=== PATIENT | male | born 1980 | race American Indian/Alaskan Native ===

== ENCOUNTER 2020-10-08 11:17 | Emergency (ER) | payer OTHER, SELFPAY ==
--- NOTE | ~2020-10-08 | XR_ITS ---
EXAMINATION: XR SHOULDER, LEFT CLINICAL INFORMATION: History of dislocation. Awoke with pain and limited mobility. COMPARISON: None TECHNIQUE: AP external rotation, Grashey, scapular Y, and axillary views of the left shoulder. FINDINGS: There is mild loss of glenohumeral joint space with periarticular spurring. The AC joint is intact. There is no visible acute fracture, dislocation or lytic process seen. The soft tissues are normal. 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 No visible acute fracture or dislocation seen.
[2020-10-08 11:26] VITALS: BP 112/59; PULSE 88; RESP 20; TEMP 36.1; O2SAT 96; BMI 49.6
--- NOTE | 2020-10-08 11:32 | ED.EXTPRO ---
HPI - Extremity Problem General Chief complaint: Extremity Injury, Upper Stated complaint: dislocated shoulder Time Seen by Provider: 10/08/20 11:32 Source: patient Mode of arrival: ambulatory Limitations: no limitations History of Present Illness HPI Narrative: 39 yo male woke up with L shoulder pain no known injuries states he cannot lift arm, hx of dislocations in the past, felt a pop when moving MD Complaint: extremity pain Onset (ago): hour(s) Pain Consistency: constant Location: left and upper extremity Quality: stabbing and aching Radiation: none Relieving factors: nothing Exacerbating factors: range of motion and palpation Associated symptoms: denies other symptoms Context: recent travel Related Data Previous Rx's Medication Instructions Recorded cyclobenzaprine 10 mg PO TID PRN #14 tab 10/08/20 ibuprofen 600 mg PO Q6H PRN #30 tab 10/08/20 lidocaine 1 patch TOPICAL DAILY PRN #10 ea 10/08/20 Allergies Allergy/AdvReac Type Severity Reaction Status Date / Time SEAFOOD Allergy Unknown SWELLING Verified 10/08/20 11:25 Review of Systems Review of Systems: Constitutional : No Fever, No Chills ENT/Mouth : No Ear Pain, No Hoarseness, No sore throat Eyes: No Eye Pain, No Swelling, No Redness, No Foreign Body Cardiovascular : No Chest Pain, No SOB Respiratory : No Cough, No Dyspnea Gastrointestinal : No Nausea, No Vomiting, No Diarrhea, No abdominal Pain Genitourinary : No Dysuria, No Hematuria Musculoskeletal : positive joint pain, No Myalgias, No Joint Swelling Skin : No Skin lacerations, No rash Neuro : No Weakness, No Numbness, No Loss of Consciousness, No Dizziness, No Headache Psych : No Anxiety/Panic, No Depression [facility] Past Medical History Attestation statement: The following information was validated with the patient. Medical History Diabetes Obesity Shoulder dislocation Social History Social History (Updated 10/08/20 @ 11:33 by Krysta Pinto DO) Alcohol intake: never Smoking Status: Never smoker Advance Directives: No Advance Directives Information Provided: No Physical Exam Vital Signs: Vital Signs: Last Vital Signs Temp 97.0 F 10/08/20 11:26 Pulse 88 10/08/20 11:26 Resp 20 05/13/21 11:26 BP 112/59 L 05/13/21 11:26 Pulse Ox 96 10/08/20 11:26 Body Mass Index 49.6 Appearance: Alert. Oriented X3. No acute distress. Eyes: Pupils equal, round and reactive to light. ENT: Pharynx normal. Neck: Normal inspection. Neck supple. CVS: Normal heart rate and rhythm. Pulses normal. Respiratory: No respiratory distress. Breath sounds normal. Abdomen: Soft and nontender. Skin: Skin warm and dry. Normal skin color. Normal skin turgor. Extremities: No lower extremity edema. No calf ttp LUE ttp at shoulder no obvious deformity, distal NV intact, will not range arm Neuro: Oriented X 3. No motor deficit. No sensory deficit. Procedures Orthopedic Splinting/Casting Injury #1: Side: left Upper Extremity Injury Location: shoulder Upper Extremity Immobilizer: sling/shoulder immobilizer MDM - Extremity (Nontraumatic) MDM Narrative Medical decision making narrative: 39 yo male L shoulder pain upon waking, felt a pop hx of dislocations in the past but clinically I do not suspect dislocation or fracture maybe just impingement or arthritis - xray ordered for r/o dislocation, NV intact at this time Discharge Plan Discharge Clinical Impression: Arthralgia Qualifiers: Joint pain location: shoulder Laterality: left Qualified Code(s): M25.512 - Pain in left shoulder Patient Disposition: Home, Self-Care Instructions: Arthralgia (ED) Additional Instructions: return to ED for any worsening symptoms or concerns IMPRESSION: 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 No visible acute fracture or dislocation seen. Prescriptions: New cyclobenzaprine 10 mg tablet 10 mg PO TID PRN (Reason: muscle spasm) Qty: 14 RF: 0 lidocaine 4 % adhesive patch,medicated 1 patch topical DAILY PRN (Reason: pain) Qty: 10 RF: 0 ibuprofen 600 mg tablet 600 mg PO Q6H PRN (Reason: pain) Qty: 30 RF: 0 Stand Alone Forms: Work/School Release Print Language: Japanese
--- NOTE | 2020-10-08 12:15 | PC.NURSE ---
Sling applied to left arm for support.
== END 2020-10-08 12:15 | disposition home or self-care (01) ==
PROVIDERS: Emergency Provider Emergency Medicine; PCP Internal Medicine
DX: M25.512 Pain in left shoulder (principal); E11.9 Type 2 diabetes mellitus without complications
CPT/HCPCS: 73030; 96372; 99283; 99284

== ENCOUNTER 2021-01-20 11:02 | Emergency (ER) | payer OTHER, SELFPAY ==
--- NOTE | 2021-01-20 | ECG_ITS ---
Test Reason : CHEST PAIN Blood Pressure : / mmHG Vent. Rate : 070 BPM Atrial Rate : 070 BPM P-R Int : 170 ms QRS Dur : 084 ms QT Int : 384 ms P-R-T Axes : 070 044 027 degrees QTc Int : 414 ms Normal sinus rhythm Normal ECG When compared with ECG of 22-SEP-2017 06:48, No significant change was found Referred By: Generic ED Physician Electronically Signed By:JER SHARMA
--- NOTE | ~2021-01-20 | US_ITS ---
EXAMINATION: US ABDOMEN LIMITED CLINICAL INFORMATION: Upper abdominal pain. Rule out gallbladder problem.. COMPARISON: None TECHNIQUE: Real-time imaging of the right upper quadrant abdominal viscera. FINDINGS: The gallbladder appears mildly distended with with the wall measuring 0.2 cm. No echogenic stones, polyp or echogenic bile seen. CBD measures 0.7 cm. US/US abdomen limited IMPRESSION: Unremarkable gallbladder ultrasound.
--- NOTE | ~2021-01-20 | CT_ITS ---
EXAMINATION: CT ABDOMEN AND PELVIS WITHOUT CONTRAST CLINICAL INFORMATION: Abdominal pain. Rule out appendicitis. COMPARISON: Previous CT of the abdomen and pelvis most recent August 2017 and abdominal ultrasound March 2019 TECHNIQUE: Multidetector volumetric imaging was performed from the superior aspect of the liver through the pubic symphysis. Sagittal and coronal reformatted images were obtained on the technologist's workstation. This CT examination was performed using dose optimization techniques as appropriate, variously including the following: *Automated exposure control *Adjustment of mA and/or kV according to patient size (this includes techniques or standardized protocols for targeted exams where dose is matched to indication/reason for exam; i.e. extremities or head) *Use of iterative reconstruction technique DLP: 1636 mGy-cm FINDINGS: LUNG BASES: The visualized lung bases are unremarkable. LIVER, GALLBLADDER, AND BILIARY TREE: The liver is normal in size, shape, and attenuation. No focal hepatic lesion or biliary ductal dilatation is present. The gallbladder is slightly enlarged measuring 5 x 5 x 11 cm. No gallstones are seen. No gallbladder wall thickening or pericholecystic fluid is seen. PANCREAS: Unremarkable. SPLEEN: Unremarkable. ADRENAL GLANDS: Unremarkable. KIDNEYS AND URETERS: The kidneys are normal in size, shape, and attenuation. No hydronephrosis, hydroureter, or calculi seen. No perinephric stranding. BLADDER: Unremarkable. GASTROINTESTINAL TRACT: The small and large bowel are unremarkable. The appendix is not identified. There are no inflammatory changes seen in the right lower quadrant. ABDOMINAL WALL: There is a small umbilical hernia containing fat. There is a small right inguinal hernia containing fat. LYMPH NODES: There is shotty retroperitoneal and small bowel mesentery lymphadenopathy. There is shotty bilateral inguinal lymphadenopathy. No enlarged lymph nodes are seen. VASCULAR: Unremarkable. PELVIC VISCERA: Unremarkable. OSSEOUS STRUCTURES: Unremarkable. CT/CT abdomen pelvis wo con IMPRESSION: Slightly enlarged gallbladder. No gallstones seen. Appendix is not identified. No inflammatory changes seen in the right lower quadrant. Small right inguinal hernia and small right umbilical hernia containing fat.
[2021-01-20 11:23] VITALS: BP 128/69; PULSE 73; RESP 19; TEMP 36.7; O2SAT 97; BMI 57.2
--- NOTE | 2021-01-20 12:19 | ED.GENADULT ---
HPI - General Adult General Chief complaint: General Medical Stated complaint: vomiting, weakness Time Seen by Provider: 01/20/21 12:18 Source: patient Mode of arrival: ambulatory Limitations: no limitations History of Present Illness HPI narrative: 40-year-old male came in for evaluation of abdominal pain that started 2 days ago been having nausea and vomiting with this. Described the pain as dull aching pain in the mid abdomen with no radiation, pain is associated with nausea and vomiting. Pain is constant and since this morning, nothing make better or worse. Never had similar pain in the past. Related Data Previous Rx's Medication Instructions Recorded cyclobenzaprine 10 mg tablet 10 mg PO TID PRN #14 tab 10/08/20 ibuprofen 600 mg tablet 600 mg PO Q6H PRN #30 tab 10/08/20 lidocaine 4 % topical patch 1 patch TOPICAL DAILY PRN #10 ea 10/08/20 Allergies Allergy/AdvReac Type Severity Reaction Status Date / Time SEAFOOD Allergy Unknown SWELLING Verified 10/08/20 11:25 Review of Systems Review of Systems: All other systems are reviewed and are negative Constitutional: Reports as per HPI and Reports no additional constitutional complaints Eyes: Reports as per HPI and Reports no additional eye complaints Reports system reviewed and no additional complaints, except as documented Cardiovascular: Reports as per HPI and Reports no additional cardiovascular complaints Respiratory: Reports as per HPI and Reports no additional respiratory complaints Gastrointestinal: Reports as per HPI and Reports no additional gastrointestinal complaints Genitourinary: Reports no additional female genitourinary complaints Musculoskeletal: Reports no additional musculoskeletal complaints Skin/Breast: Reports system reviewed and no additional complaints, except as docu Psychiatric: Reports no additional psychiatric complaints Endocrine: Reports no additional endocrine complaints Hematologic/Lymphatic: Reports no additional hematologic/lymphatic complaints Allergic/Immunologic: Reports no additional allergic/immunologic complaints Reports system reviewed and no additional complaints, except as documented and Reports Abnormal speech present [facility] Past Medical History Medical History Diabetes Obesity Shoulder dislocation Social History Social History Alcohol intake: never Patient Tobacco Use Status: Never used Tobacco Use of substances other than those prescribed or required for medical reasons: No Advance Directives: No Advance Directives Information Provided: No Physical Exam Vital Signs: Vital Signs: Last Vital Signs Temp 98.1 F 01/20/21 14:26 Pulse 84 01/20/21 14:26 Resp 15 01/20/21 14:26 BP 125/65 01/20/21 14:26 Pulse Ox 98 01/20/21 14:26 Body Mass Index 57.2 Vital signs have been reviewed as appeared to be correct. Blood pressure normal. Heart rate normal. Respiration rate normal. Temperature normal. Oxygen saturation normal. Appearance: Alert. Oriented X3. No acute distress. Head: Normal external exam. Normocephalic. Atraumatic. No Snyder signs noted. No raccoon eyes noted Eyes: PERRLA. EOMI. Conjunctiva and sclera normal. Eyelids normal. ENT: TM's Normal. Pharynx normal. Uvula midline. Moist mucous membranes. No trismus noted. No drooling noted. No muffled voice noted. Neck: Normal inspection. Neck supple. FROM. No adenopathy. Thyroid Normal. No meningeal signs. No neck mass noted. CVS: Normal heart rate and rhythm. Heart sound normal. No murmurs noted. Pulses normal throughout. Respiratory: No respiratory distress. Painless inspiration. Breath sounds normal. No wheezes/rales/rhonchi noted. Chest nontender. No accessory muscle usage noted or decreased air movement noted. Abdomen: Soft, mild tenderness in the mid abdomen, no rebound, no guarding. Bowel sounds normal in all 4 quadrants. No distention noted. No organomegaly noted. No visible injury noted. Back: No CVA tenderness. Full range of motion noted. Skin: Skin warm and dry. Normal skin color. Normal skin turgor. No rashes/lesions/lacerations noted. Extremities: No lower extremity edema. Extremities exhibit normal range of motion. Extremities nontender. Neuro: Oriented X 3. Cranial nerve exam: II-XII are grossly intact No motor deficit. No sensory deficit. Reflexes normal. Course Course Course Narrative: Assessment and plan. 40-year-old male came in for evaluation of abdominal pain, CT/abdominal ultrasound unremarkable labs (except for mild leukocytosis) are unremarkable and consistent with mild gastritis/pancreatitis. patient feels better and able to tolerate p.o. intake. Medical Decision Making Lab Data Lab results reviewed: Yes I reviewed the patient's lab results. Result diagrams: 01/20/21 Unknown 01/20/21 15:17 Labs: Lab Results 01/20/21 01/20/21 01/20/21 Range/Units 12:03 13:00 15:17 WBC (4.8-10.8) X10*3/uL RBC (4.60-5.80) X10*6/uL Hgb (14.0-18.0) g/dl Hct (42-52) % MCV (80-98) fL MCH (27.0-33.0) pg MCHC (31.0-36.0) g/dl RDW (11.0-16.0) % Plt Count (160-400) X10*3/uL MPV (9.4-12.4) fL Immature Gran % (Auto) (0.0-0.4) % Neut % (Auto) (45-73) % Lymph % (Auto) (20-40) % Carolina % (Auto) (2-11) % Eos % (Auto) (0-4) % Baso % (Auto) (0-2) % Lymph # (Auto) (1.2-4.9) X10*3/uL Carolina # (Auto) (0.1-1.2) X10*3/uL Eos # (Auto) (0.0-0.4) X10*3/uL Baso # (Auto) (0.0-0.2) X10*3/uL Abs Immat Gran (auto) (0.00-0.03) X10*3/uL Absolute Neuts (auto) (2.0-8.3) X10*3/uL Absolute Nucleated RBC (0.0-0.012) X10*3/uL Nucleated RBC % (auto) (0.0-0.2) /100WBC Smear Tech's Comments Sodium 138 (135-145) mmol/L Potassium 4.0 (3.3-5.1) mmol/L Chloride 101 (96-108) mmol/L Carbon Dioxide 32 H (22-29) mmol/L Anion Gap 9 L (12-20) BUN 14 (9-16) mg/dL Creatinine 0.84 (0.5-1.4) mg/dL Estim Creat Clear Calc 171.4 Estimated GFR > 60 Random Glucose 111 (60-115) mg/dL Calcium 9.1 (8.4-10.2) mg/dL Total Bilirubin 1.2 H (0.0-1.0) mg/dL Direct Bilirubin 0.4 (0.0-0.5) mg/dL AST 24 (5-37) U/L ALT 25 (0-40) U/L Alkaline Phosphatase 71 (39-117) U/L Troponin I High Sens 3.5 (<3.5-35.0) ng/L Total Protein 7.4 (6.5-8.0) g/dL Albumin 3.8 (3.5-5.0) g/dL Lipase 85 H (8-78) U/L RPR Cancelled T.pallidum Particle Agg Cancelled 01/20/21 Range/Units Unknown WBC 12.6 H (4.8-10.8) X10*3/uL RBC 4.85 (4.60-5.80) X10*6/uL Hgb 13.1 L (14.0-18.0) g/dl Hct 40.9 L (42-52) % MCV 84.3 (80-98) fL MCH 27.0 (27.0-33.0) pg MCHC 32.0 (31.0-36.0) g/dl RDW 13.5 (11.0-16.0) % Plt Count 137 L (160-400) X10*3/uL MPV 12.5 H (9.4-12.4) fL Immature Gran % (Auto) 0.4 (0.0-0.4) % Neut % (Auto) 81.2 H (45-73) % Lymph % (Auto) 12.8 L (20-40) % Carolina % (Auto) 4.8 (2-11) % Eos % (Auto) 0.6 (0-4) % Baso % (Auto) 0.2 (0-2) % Lymph # (Auto) 1.6 (1.2-4.9) X10*3/uL Carolina # (Auto) 0.6 (0.1-1.2) X10*3/uL Eos # (Auto) 0.1 (0.0-0.4) X10*3/uL Baso # (Auto) 0.0 (0.0-0.2) X10*3/uL Abs Immat Gran (auto) 0.05 H (0.00-0.03) X10*3/uL Absolute Neuts (auto) 10.2 H (2.0-8.3) X10*3/uL Absolute Nucleated RBC 0.000 (0.0-0.012) X10*3/uL Nucleated RBC % (auto) 0.0 (0.0-0.2) /100WBC Smear Tech's Comments VERIFIED Sodium (135-145) mmol/L Potassium (3.3-5.1) mmol/L Chloride (96-108) mmol/L Carbon Dioxide (22-29) mmol/L Anion Gap (12-20) BUN (9-16) mg/dL Creatinine (0.5-1.4) mg/dL Estim Creat Clear Calc Estimated GFR Random Glucose (60-115) mg/dL Calcium (8.4-10.2) mg/dL Total Bilirubin (0.0-1.0) mg/dL Direct Bilirubin (0.0-0.5) mg/dL AST (5-37) U/L ALT (0-40) U/L Alkaline Phosphatase (39-117) U/L Troponin I High Sens (<3.5-35.0) ng/L Total Protein (6.5-8.0) g/dL Albumin (3.5-5.0) g/dL Lipase (8-78) U/L RPR T.pallidum Particle Agg Imaging Data CT scan - abdomen: Radiologist's impression: Slightly enlarged gallbladder. No gallstones seen. Appendix is not identified. No inflammatory changes seen in the right lower quadrant. Small right inguinal hernia and small right umbilical hernia containing fat. US - abdomen: Radiologist's impression: Unremarkable gallbladder ultrasound. ECG Data Interpretation: Normal sinus rhythm at 70 beats per minutes, normal axis deviation, normal intervals, no ST-T changes. Discharge Plan Discharge Clinical Impression: Gastritis Qualifiers: Gastritis type: unspecified gastritis Chronicity: acute Gastritis bleeding: without bleeding Qualified Code(s): K29.00 - Acute gastritis without bleeding Acute pancreatitis Qualifiers: Pancreatitis type: idiopathic Acute pancreatitis complication: no infection or necrosis Qualified Code(s): K85.00 - Idiopathic acute pancreatitis without necrosis or infection Patient Disposition: Home, Self-Care Instructions: Pancreatitis (ED), Gastritis (ED) Prescriptions: No Action cyclobenzaprine 10 mg tablet 10 mg PO TID PRN (Reason: muscle spasm) Qty: 14 RF: 0 lidocaine 4 % adhesive patch,medicated 1 patch topical DAILY PRN (Reason: pain) Qty: 10 RF: 0 ibuprofen 600 mg tablet 600 mg PO Q6H PRN (Reason: pain) Qty: 30 RF: 0 Referrals: Jayleen Jose [Emergency Nurse] - 2 days Physician,Unknown [Primary Care Provider] - 2 days
[2021-01-20 13:13] LABS: Basophils Percent Auto 0.2 % (0-2); Eosinophils Absolute Auto 0.1 X10*3/uL (0.0-0.4); Eosinophils Percent Auto 0.6 % (0-4); Imm Gran Abs Auto 0.05 X10*3/uL (0.00-0.03); Imm Gran Pct Auto 0.4 % (0.0-0.4); MANUAL DIFF FLAG SCAN; Monocytes Percent Auto 4.8 % (2-11); PLT CLUMP 1; SCAN SMEAR FLAG 1
[2021-01-20 13:15] LABS: Hematocrit 40.9 % (42-52); Hemoglobin 13.1 g/dl (14.0-18.0); Lymphocytes Absolute Auto 1.6 X10*3/uL (1.2-4.9); Lymphocytes Percent Auto 12.8 % (20-40); Mean Corpuscular Volume 84.3 fL (80-98); Mean Platelet Volume 12.5 fL (9.4-12.4); Monocytes Absolute Auto 0.6 X10*3/uL (0.1-1.2); Neutrophils Absolute Auto 10.2 X10*3/uL (2.0-8.3); Neutrophils Percent Auto 81.2 % (45-73); Platelet Count 137 X10*3/uL (160-400); Red Blood Count 4.85 X10*6/uL (4.60-5.80); Red Cell Distribution Width 13.5 % (11.0-16.0); White Blood Count 12.6 X10*3/uL (4.8-10.8)
[2021-01-20 13:24] LABS: PLT ABN DIST 1
[2021-01-20 13:32] VITALS: BP 125/65; PULSE 78; RESP 12; TEMP 36.7; O2SAT 98
[2021-01-20] MEDS: ondansetron HCL 4 MG/2 ML VIAL IVPUSH (13:35)
[2021-01-20 13:37] LABS: SLIDE REVIEW VERIFIED
[2021-01-20 14:00] LABS: Troponin-I High Sensitivity 3.5 ng/L (<3.5-35.0)
[2021-01-20 14:26] VITALS: BP 125/65; PULSE 84; RESP 15; TEMP 36.7; O2SAT 98
[2021-01-20 15:50] LABS: Alanine Aminotransferase 25 U/L (0-40); Albumin Level 3.8 g/dL (3.5-5.0); Alkaline Phosphatase 71 U/L (39-117); Anion Gap 9 (12-20); Aspartate Amino Transferase 24 U/L (5-37); Bilirubin Direct 0.4 mg/dL (0.0-0.5); Bilirubin Total 1.2 mg/dL (0.0-1.0); Blood Urea Nitrogen 14 mg/dL (9-16); Calcium 9.1 mg/dL (8.4-10.2); Carbon Dioxide 32 mmol/L (22-29); Chloride 101 mmol/L (96-108); Creatinine Clr Calc Pharmacy 171.4; Estimated Glomerular Filt Rate > 60; Glucose Random 111 mg/dL (60-115); Lipase 85 U/L (8-78); Sodium 138 mmol/L (135-145); Total Protein 7.4 g/dL (6.5-8.0)
== END 2021-01-20 16:26 | disposition home or self-care (01) ==
PROVIDERS: Emergency Provider Emergency Medicine
DX: K29.00 Acute gastritis without bleeding (principal); K85.00 Idiopathic acute pancreatitis without necrosis or infection; Z79.899 Other long term (current) drug therapy
CPT/HCPCS: 36415; 74176; 76705; 80048; 80076; 83690; 84484; 85025; 93005; 96374; 99284; J2405

== ENCOUNTER 2021-01-23 12:19 | Emergency (ER) | payer OTHER, SELFPAY ==
[2021-01-23 12:47] VITALS: BP 141/71; PULSE 71; RESP 16; TEMP 37.3; O2SAT 100; BMI 57.2
--- NOTE | 2021-01-23 13:40 | ED_ITS ---
HPI - Abdominal Pain General Chief Complaint: Abdominal Pain Stated Complaint: abd pain Time Seen by Provider: 01/23/21 13:02 Source: patient Mode of arrival: ambulatory Limitations: no limitations History of Present Illness HPI narrative: 40-year-old male with a past medical history of IDDM, obesity here with complaints of upper abdominal pain, nausea since 01/20. Initially had vomiting on Monday (multiple episodes). Seen here in the ED with negative CT abdomen/pelvis, abdominal US and sent home with diagnosis of gastritis, mild pancreatitis (lipase 85). Patient reports continued pain with nausea. No gloria tional vomiting episodes. No diarrhea. Last BM this morning and normal. No fevers or chills or urinary symptoms. Pain is worsened after eating. Related Data Previous Rx's Medication Instructions Recorded cyclobenzaprine 10 mg tablet 10 mg PO TID PRN #14 tab 10/08/20 ibuprofen 600 mg tablet 600 mg PO Q6H PRN #30 tab 10/08/20 lidocaine 4 % topical patch 1 patch TOPICAL DAILY PRN #10 ea 10/08/20 omeprazole 40 mg capsule,delayed 40 mg PO DAILY #30 cap 01/23/21 release sucralfate 1 gram tablet (Carafate) 1 g PO .achs #60 tab 01/23/21 Allergies Allergy/AdvReac Type Severity Reaction Status Date / Time SEAFOOD Allergy Unknown SWELLING Verified 10/08/20 11:25 Review of Systems Review of Systems Yes all other systems are reviewed and are negative Constitutional: Reports no additional constitutional complaints, Denies body ache(s), Denies chills, Denies fever(s), Denies headache(s) and Denies weakness Eyes: Reports no additional eye complaints and Denies change in vision Reports system reviewed and no additional complaints, except as documented, Denies dizziness, Denies headache(s), Denies nasal congestion, Denies nasal discharge and Denies neck pain Cardiovascular: Reports no additional cardiovascular complaints, Denies chest pain, Denies leg edema and Denies dyspnea Respiratory: Reports no additional respiratory complaints, Denies cough and Denies dyspnea Gastrointestinal: Reports no additional gastrointestinal complaints, Reports abdominal pain, Denies diarrhea, Reports nausea and Denies vomiting Genitourinary: Denies urinary incontinence Musculoskeletal: Reports no additional musculoskeletal complaints, Denies back pain, Denies arthralgias, Denies joint swelling, Denies neck pain, Denies numbness and Denies tingling Skin/Breast: Reports system reviewed and no additional complaints, except as docu and Denies rash Reports system reviewed and no additional complaints, except as documented, Denies Abnormal speech present, Denies dizziness, Denies headache(s), Denies numbness, Denies tingling and Denies weakness Physical Exam Vital Signs: Vital Signs: Last Vital Signs Temp 99.2 F 01/23/21 12:47 Pulse 70 01/23/21 15:17 Resp 18 01/23/21 15:17 BP 130/67 01/23/21 15:17 Pulse Ox 99 01/23/21 15:17 Body Mass Index 57.2 Const: General: cooperative, healthy appearing, comfortable and no acute distress Orientation/consciousness: patient oriented x3 Limitations: no limitations HENMT: Head: Yes normal to inspection Ears: hearing grossly normal bilaterally General nose exam: Normal external nose present Face and sinus: Yes normal facial exam Mouth: Normal oral and palatal mucosa present Throat: Yes posterior oropharynx normal Eyes: General: appearance normal, both eyes and all related structures Pupils: Equal, round and reactive pupils present Neck: Neck: Yes normal visual inspection Chest: Chest palpation & inspection: normal inspection of the chest Resp: Effort & Inspection: normal respiratory effort Auscultation: clear to auscultation bilaterally Cardio: Rate: regular rate Rhythm: regular rhythm Peripheral pulses: Peripheral pulses 2+ throughout GI: Other: obese Inspection: Yes normal to inspection Palpation (GI): Soft to palpation and Tenderness to palpation present (GI) (tenderness RUQ/LUQ /epigastric-no rebound ) Auscultation: normal bowel sounds Back/Spine/Pelvis: Thoracic/Lumbar Spine: thoracic and lumbar spine normal to inspection Skin: General skin exam: no rashes or lesions noted Neuro: General: patient oriented x3, no focal motor deficits and normal sensation to monofilament Cranial nerves: Yes Equal, round and reactive pupils present Cognition (Neuro): normal cognition Speech: No Abnormal speech present Gait exam (Neuro): Normal gait present Motor exam (neuro): 5/5 motor strength present throughout Extrem: General: Yes normal to inspection Course Course Course Narrative: 40-year-old male here with continued upper abdominal pain with nausea for approximately 3-4 days with 1 ER visit with negative CT and abdominal ultrasound. On exam tender in the epigastric, left upper and right upper quadrants with no rebound or guarding. Will repeat labs, check UA. Give PPI, GI cocktail and normal saline bolus and reassess. 1500-labs are unremarkable. Lipase today is actually improved from yesterday. Patient tells me that after receiving his medications his pain is resolved. He denies any nausea or vomiting. He is tolerating p.o.. Likely gastritis. We discussed dietary changes. We also discussed following up with GI outpatient. Reviewed worrisome signs and symptoms of when to return to the emergency department. Comfortable discharge home. MDM - Abdominal Pain MDM Narrative Medical decision making narrative: Gastritis. Pancreatitis gallstones/renate Medical Records Attestation: I reviewed the patient's medical records. Lab Data Attestation: I reviewed the patient's lab results. Result diagrams: 01/23/21 13:51 01/23/21 13:51 Labs: Lab Results 01/23/21 01/23/21 Range/Units 13:51 13:51 WBC 8.3 (4.8-10.8) X10*3/uL RBC 4.66 (4.60-5.80) X10*6/uL Hgb 12.6 L (14.0-18.0) g/dl Hct 39.4 L (42-52) % MCV 84.5 (80-98) fL MCH 27.0 (27.0-33.0) pg MCHC 32.0 (31.0-36.0) g/dl RDW 13.2 (11.0-16.0) % Plt Count 148 L (160-400) X10*3/uL MPV 12.2 (9.4-12.4) fL Immature Gran % (Auto) 0.5 H (0.0-0.4) % Neut % (Auto) 62.7 (45-73) % Lymph % (Auto) 27.7 (20-40) % Dunn % (Auto) 5.3 (2-11) % Eos % (Auto) 3.4 (0-4) % Baso % (Auto) 0.4 (0-2) % Lymph # (Auto) 2.3 (1.2-4.9) X10*3/uL Dunn # (Auto) 0.4 (0.1-1.2) X10*3/uL Eos # (Auto) 0.3 (0.0-0.4) X10*3/uL Baso # (Auto) 0.0 (0.0-0.2) X10*3/uL Abs Immat Gran (auto) 0.04 H (0.00-0.03) X10*3/uL Absolute Neuts (auto) 5.2 (2.0-8.3) X10*3/uL Absolute Nucleated RBC 0.000 (0.0-0.012) X10*3/uL Nucleated RBC % (auto) 0.0 (0.0-0.2) /100WBC Sodium 139 (135-145) mmol/L Potassium 4.1 (3.3-5.1) mmol/L Chloride 102 (96-108) mmol/L Carbon Dioxide 30 H (22-29) mmol/L Anion Gap 11 L (12-20) BUN 13 (9-16) mg/dL Creatinine 0.82 (0.5-1.4) mg/dL Estim Creat Clear Calc 175.6 Estimated GFR > 60 Random Glucose 169 H D (60-115) mg/dL Calcium 9.2 (8.4-10.2) mg/dL Magnesium 1.9 (1.6-2.6) mg/dL Total Bilirubin 0.7 (0.0-1.0) mg/dL Direct Bilirubin 0.3 (0.0-0.5) mg/dL AST 22 (5-37) U/L ALT 23 (0-40) U/L Alkaline Phosphatase 67 (39-117) U/L Total Protein 7.2 (6.5-8.0) g/dL Albumin 3.7 (3.5-5.0) g/dL Lipase 58 (8-78) U/L Discharge Plan Discharge Clinical Impression: Gastritis Patient Disposition: Home, Self-Care Instructions: Gastritis (ED) Additional Instructions: Very bland diet Call GI Monday morning Prescriptions: New omeprazole 40 mg capsule,delayed release(DR/EC) 40 mg PO DAILY Qty: 30 RF: 0 sucralfate [Carafate] 1 gram tablet 1 g PO .achs Qty: 60 RF: 0 No Action cyclobenzaprine 10 mg tablet 10 mg PO TID PRN (Reason: muscle spasm) Qty: 14 RF: 0 lidocaine 4 % adhesive patch,medicated 1 patch topical DAILY PRN (Reason: pain) Qty: 10 RF: 0 ibuprofen 600 mg tablet 600 mg PO Q6H PRN (Reason: pain) Qty: 30 RF: 0 Referrals: Jerry Jeong MD [Physician] - 2 days Stand Alone Forms: Work/School Release Interventions: ED Discharge Assessment Last Done: 01/23/21 15:41 Discharge Date/Time: 01/23/21 15:42 [facility] Past Medical History Attestation statement: The following information was validated with the patient. Source: old records reviewed Medical History Diabetes Obesity Shoulder dislocation Social History Social History Alcohol intake: never Patient Tobacco Use Status: Never used Tobacco Use of substances other than those prescribed or required for medical reasons: No Advance Directives: No Advance Directives Information Provided: No
[2021-01-23 13:58] LABS: MANUAL DIFF FLAG NO
--- NOTE | 2021-01-23 14:00 | PC.NURSE ---
Pt alert and oriented x3, vss. Pt c/o upper abdominal pain and nausea since 01/20. He also reports having multiple episodes vomiting on Monday. Pt states he ate nachos last night which caused the abdominal pain to worsen. He denies fever/chills/ urinary symptoms. Pt states he experienced the same symptoms in the past but it resolved itself. No other symptoms reported. Pt resting quietly, no apparent distress noted. Iv established, fluids hung, meds given as documented.
[2021-01-23 14:03] LABS: Basophils Percent Auto 0.4 % (0-2); Eosinophils Absolute Auto 0.3 X10*3/uL (0.0-0.4); Eosinophils Percent Auto 3.4 % (0-4); Hematocrit 39.4 % (42-52); Hemoglobin 12.6 g/dl (14.0-18.0); Imm Gran Abs Auto 0.04 X10*3/uL (0.00-0.03); Imm Gran Pct Auto 0.5 % (0.0-0.4); Lymphocytes Absolute Auto 2.3 X10*3/uL (1.2-4.9); Lymphocytes Percent Auto 27.7 % (20-40); Mean Corpuscular Volume 84.5 fL (80-98); Mean Platelet Volume 12.2 fL (9.4-12.4); Monocytes Absolute Auto 0.4 X10*3/uL (0.1-1.2); Monocytes Percent Auto 5.3 % (2-11); Neutrophils Absolute Auto 5.2 X10*3/uL (2.0-8.3); Neutrophils Percent Auto 62.7 % (45-73); Platelet Count 148 X10*3/uL (160-400); Red Blood Count 4.66 X10*6/uL (4.60-5.80); Red Cell Distribution Width 13.2 % (11.0-16.0); White Blood Count 8.3 X10*3/uL (4.8-10.8)
[2021-01-23] MEDS: Lidocaine HCl Viscous 2 % 15 ML SOLUTION MUCOUS MEM (14:06)
[2021-01-23] MEDS: 0.9 % Sodium Chloride 1,000 ML 999 ML IV (14:06)
[2021-01-23] MEDS: Famotidine/PF 20 MG/2 ML VIAL IVPUSH (14:06)
[2021-01-23] MEDS: Magnesium Hydrox/Alum Hydrox 30 ML ORAL.SUSP PO (14:06)
[2021-01-23 14:14] VITALS: BP 126/66; PULSE 79; RESP 20; O2SAT 100
[2021-01-23 14:28] LABS: Alanine Aminotransferase 23 U/L (0-40); Albumin Level 3.7 g/dL (3.5-5.0); Alkaline Phosphatase 67 U/L (39-117); Anion Gap 11 (12-20); Aspartate Amino Transferase 22 U/L (5-37); Bilirubin Direct 0.3 mg/dL (0.0-0.5); Bilirubin Total 0.7 mg/dL (0.0-1.0); Blood Urea Nitrogen 13 mg/dL (9-16); Calcium 9.2 mg/dL (8.4-10.2); Carbon Dioxide 30 mmol/L (22-29); Chloride 102 mmol/L (96-108); Creatinine Clr Calc Pharmacy 175.6; Estimated Glomerular Filt Rate > 60; Glucose Random 169 mg/dL (60-115); Lipase 58 U/L (8-78); Magnesium 1.9 mg/dL (1.6-2.6); Potassium 4.1 mmol/L (3.3-5.1); Sodium 139 mmol/L (135-145); Total Protein 7.2 g/dL (6.5-8.0)
[2021-01-23 15:17] VITALS: BP 130/67; PULSE 70; RESP 18; O2SAT 99
== END 2021-01-23 15:42 | disposition home or self-care (01) ==
PROVIDERS: Nurse Practitioner Family; Emergency Provider Emergency Medicine
DX: K29.70 Gastritis, unspecified, without bleeding (principal); R10.10 Upper abdominal pain, unspecified; R11.0 Nausea; E11.9 Type 2 diabetes mellitus without complications
CPT/HCPCS: 36415; 80048; 80076; 83690; 83735; 85025; 96361; 96374; 99284

== ENCOUNTER → 2021-07-26 13:17 | Outpatient (BNVA) | payer OTHER, SELFPAY | PROVIDERS: PCP Internal Medicine; Visit Provider Physician Assistant | DX: E66.01 Morbid (severe) obesity due to excess calories (principal); Z68.44 Body mass index [BMI] 60.0-69.9, adult; E10.9 Type 1 diabetes mellitus without complications; I10 Essential (primary) hypertension; G47.33 Obstructive sleep apnea (adult) (pediatric); M19.90 Unspecified osteoarthritis, unspecified site; Z86.69 Personal history of other diseases of the nervous system and sense organs; Z99.89 Dependence on other enabling machines and devices | CPT/HCPCS: 99212 ==

== ENCOUNTER → 2021-09-03 08:15 | Outpatient (BNVA) | payer MEDICAID, SELFPAY | PROVIDERS: Visit Provider Dietitian, Registered | DX: Z13.89 Encounter for screening for other disorder (principal) ==

== ENCOUNTER 2021-09-03 12:43 | Emergency (ER) | payer MEDICAID, SELFPAY ==
--- NOTE | ~2021-09-03 | CT_ITS ---
CT HEAD WITHOUT IV CONTRAST CT CERVICAL SPINE WITHOUT IV CONTRAST INDICATION: Severe headache. Radiation to the right arm. COMPARISON: Head CT and cervical spine CT 09/22/2017. TECHNIQUE: Multidetector CT acquisitions of the head and cervical spine were obtained without IV contrast. Multiplanar reformats were acquired and utilized for image interpretation. This CT examination was performed using dose optimization techniques as appropriate, variously including the following: *Automated exposure control *Adjustment of mA and/or kV according to patient size (this includes techniques or standardized protocols for targeted exams where dose is matched to indication/reason for exam; i.e. extremities or head) *Use of iterative reconstruction technique FINDINGS: HEAD: There is no intracranial hemorrhage, hydrocephalus, extra-axial surface collection, midline shift, or other herniation pattern. Jeronimo to white matter differentiation is diffusely maintained without evidence of an evolved acute territorial infarct. The basilar cisterns are preserved. No significant soft tissue abnormality. No acute osseous abnormality. The paranasal sinuses and the mastoid air cells are well aerated. CERVICAL SPINE: There is a partially imaged leftward convex scoliotic curvature of the thoracic spine. No acute fractures nor acute subluxations. Nondiagnostic assessment of the cervical disc contours secondary to artifact. If there is continued cervical radiculopathy clinically, consider a cervical spine MRI for further assessment. Imaged upper lungs are clear. No significant soft tissue findings are appreciated within the neck. CT/CT cervical spine wo con IMPRESSION: - No acute intracranial findings. - No acute osseous findings within the cervical spine. Nondiagnostic assessment of the cervical disc contours secondary to artifact on this CT. Consider a cervical spine MRI if there is persistent cervical radiculopathy clinically.
[2021-09-03 13:03] VITALS: BP 152/89; PULSE 73; RESP 18; TEMP 36.5; O2SAT 97; BMI 60.7
--- NOTE | 2021-09-03 14:20 | ED.NECK ---
HPI - Neck Pain/Injury General Chief Complaint: Neck Pain/Injury Stated Complaint: neck/shoulder pain Time Seen by Provider: 09/03/21 13:04 Source: patient Mode of arrival: ambulatory Limitations: no limitations History of Present Illness HPI Narrative: This is a 40-year-old male past medical history significant for hypertension, obstructive sleep apnea, obesity, diabetes presenting to the emergency department with complaints of right-sided neck pain that is atraumatic x1 month. Patient tells me a month ago he woke up with neck pain that is worse with movement and worse when he lays on his side. He tells me that from time to time he has been experiencing radiation of the neck pain from the right side of the neck to the right arm. He also reports that over the past month he has been getting severe headaches. He tells me that these headaches, on suddenly when he is having the neck pain, he does not report vision changes, dizziness or head trauma. He denies history of IV drug abuse. Denies fevers, chills, nausea, vomiting, chest pain, shortness of breath, abdominal pain, weakness, vision changes, dizziness, disequilibrium. Patient denies any head or neck trauma. MD complaint: neck pain Onset (ago): month(s) (1) Place: home Radiation: right upper extremity Severity: severe Quality: stabbing and aching Duration: constant Relieving factors: immobilization Exacerbating factors: movement of neck Context: unknown Associated symptoms: headache Treatments prior to arrival: none Related Data Home Medications Medication Instructions Recorded Confirmed dulaglutide 0.75 mg/0.5 mL 0.75 mg SUBCUT QWEEK 07/26/21 subcutaneous pen injector (Grace) gabapentin 400 mg capsule 400 mg PO TID 07/26/21 insulin glargine 100 unit/mL 55 unit SUBCUT QPM ml 07/26/21 subcutaneous solution (Lantus U-100 Insulin) insulin lispro 100 unit/mL 35 unit SUBCUT TID ml 07/26/21 subcutaneous pen (Humalog KwikPen (U-100) Insulin) lisinopril 2.5 mg tablet 2.5 mg PO DAILY 07/26/21 Previous Rx's Medication Instructions Recorded cyclobenzaprine 10 mg tablet 10 mg PO BEDTIME PRN #7 tab 09/03/21 lidocaine 5 % topical patch 1 patch TOPICAL DAILY PRN #15 ea 09/03/21 naproxen 500 mg tablet 500 mg PO BID PRN #14 tab 09/03/21 Allergies Allergy/AdvReac Type Severity Reaction Status Date / Time SEAFOOD Allergy Unknown SWELLING Verified 07/26/21 13:28 Review of Systems Review of Systems: Constitutional : No Weight loss, No Fever, No Chills, No Fatigue, No Malaise ENT/Mouth : No sore throat, No Rhinorrhea Eyes: No Eye Pain, No Swelling, No Redness Cardiovascular : No Chest Pain, No SOB, No Dyspnea on Exertion, No Orthopnea, No Edema, No Palpitations Respiratory : No Cough, No Sputum, No Wheezing Gastrointestinal : No Nausea, No Vomiting, No Diarrhea, No Constipation, No abdominal Pain, No Hematochezia, No Melena Genitourinary : No Dysuria, No Urinary Frequency, No Hematuria, Musculoskeletal : + joint pain, No Myalgias, No Joint Swelling Skin : No Skin Lesions, No rash Neuro : No Weakness, No Numbness, No Dizziness, No Headache Psych : No Anxiety/Panic, No Depression All other systems reviewed and are negative Yes all other systems are reviewed and are negative [facility] Past Medical History Attestation statement: The following information was validated with the patient. Source: old records reviewed and nursing notes reviewed Medical History Carpal tunnel syndrome Diabetes Shoulder dislocation Sleep apnea Surgical History Hx of appendectomy Family History Family History Mother No problems noted. Brother No problems noted. Daughter No problems noted. Daughter No problems noted. Daughter No problems noted. Son No problems noted. Son No problems noted. Social History Social History Alcohol intake: never Patient Tobacco Use Status: Never used Tobacco Advance Directives: No Advance Directives Information Provided: Yes Physical Exam Vital Signs: Vital Signs: Last Vital Signs Temp 97.8 F 09/03/21 16:40 Pulse 58 09/03/21 16:40 Resp 18 09/03/21 16:40 BP 144/86 H 09/03/21 16:40 Pulse Ox 97 09/03/21 16:40 BMI result Body Mass Index 60.7 Vital signs stable Appearance: Alert.? Oriented X3.? No acute distress.? Head: Normocephalic, atraumatic, no step-offs or deformities Eyes: Pupils equal, round and reactive to light.? ENT: Pharynx normal.? Neck: Normal inspection.? Neck supple.?+ pain with palpation of right-sided cervical paraspinous muscles, and right a trapezius + spurling test to right side. Negative Kernig and Brudzinski CVS: Normal heart rate and rhythm.? Pulses normal.? Respiratory: No respiratory distress.? Breath sounds normal.? Abdomen: Soft and nontender.? Skin: Skin warm and dry.? Normal skin color.? Normal skin turgor.? Extremities: No lower extremity edema.? No calf ttp. 5/5 strength to bilateral upper and lower extremities Back: No midline tenderness, no C-spine tenderness, full range of motion, no CVA tenderness bilaterally Neuro: Oriented X 3.? No motor deficit.? No sensory deficit. CN 2-12 intact Course Reevaluation(s) Reevaluation #1: CT of the head no acute intracranial findings. No osseous findings within the cervical spine. Advised him to return with new or worsening symptoms. Outline is on discharge. Will discharge on muscle relaxers, naproxen and lidocaine patches. Comfortable with discharge. Time: 17:40 MDM - Neck Pain/Injury [facility] Narrative Medical decision making narrative: 1410 40 yo m presents w/ atraumatic neck pain w/ intermittent radiation to right arm and arredondo X1 month PE w/ positive Spurling maneuver, negative Kernig and Brudzinski, pain with palpation of right-sided paraspinous cervical muscles. No midline tenderness. No step-offs or deformities. Lungs clear white lower rate and rhythm. Abdomen soft nontender nondistended. Bilateral pupils equal round and reactive to light, extraocular movements intact. No nystagmus. History and physical examination consistent with cervical radiculopathy. Unlikely meningitis or epidural abscess. Pain is reproducible reassuring musculoskeletal pain. Plan at this time CT head and cervical spine. Medical Records Attestation: I reviewed the patient's medical records. Lab Data Attestation: I reviewed the patient's lab results. Critical Care Time Critical Care Time Critical Care Time: No Discharge Plan Discharge Clinical Impression: Cervical radiculopathy Patient Disposition: Home, Self-Care Instructions: Cervical Radiculopathy (ED), Neck Pain (ED), Chronic Neck Pain (DC) Additional Instructions: Take your medications as prescribed. If you were prescribed antibiotics today, it is important that you take your medication to their entirety, do not skip any doses, do not finish them early. Follow-up with your primary care provider this week. You may require further imaging such as an MRI. Return to the emergency department with new or worsening symptoms. Such as fevers, chills, chest pain, shortness of breath, nausea, vomiting, dizziness, headache, vision changes, lethargy, changes in bowel habits, inability to control urine or stool In case of emergency call 911 Prescriptions: New cyclobenzaprine 10 mg tablet 10 mg PO BEDTIME PRN (Reason: muscle spasm) Qty: 7 0RF lidocaine 5 % adhesive patch,medicated 1 patch topical DAILY PRN (Reason: pain) Qty: 15 0RF Rx Instructions: leave on most painful area for up to 12 hrs naproxen 500 mg tablet 500 mg PO BID PRN (Reason: pain) Qty: 14 0RF Rx Instructions: Take with food No Action gabapentin 400 mg capsule 400 mg PO TID 0RF lisinopril 2.5 mg tablet 2.5 mg PO DAILY 0RF Lantus U-100 Insulin 100 unit/mL solution 55 unit subcut QPM 0RF insulin lispro [Humalog KwikPen Insulin] 100 unit/mL insulin pen 35 unit subcut TID 0RF Trulicity 0.75 mg/0.5 mL pen injector 0.75 mg subcut QWEEK 0RF Referrals: Physician,None [Primary Care Provider] - 2 days Stand Alone Forms: Work/School Release Interventions: ED Discharge Assessment Last Done: 09/03/21 16:49 Discharge Date/Time: 09/03/21 16:50
[2021-09-03] MEDS: Ketorolac Tromethamine 15 MG/ML VIAL 30 MG IM (14:28)
[2021-09-03 15:15] VITALS: RESP 18
[2021-09-03] MEDS: Lidocaine 4 % Patch ADH..PATCH 1 PATCH TRANSDERMA (15:16)
[2021-09-03] MEDS: Cyclobenzaprine HCl 10 MG TABLET PO (15:16)
[2021-09-03 16:15] VITALS: PULSE 58; RESP 18
[2021-09-03 16:40] VITALS: BP 144/86; PULSE 58; RESP 18; TEMP 36.6; O2SAT 97
--- NOTE | 2021-09-03 16:47 | PC.NURSE ---
PT REPORTS FEELING BETTER THAN UPON ARRIVAL TO ED PROVIDER UPDATED PATIENT ON PLAN OF CARE, DISCHARGE. PT AGREEABLE TO PLAN. REPORTS DECREASE IN PAIN
== END 2021-09-03 16:50 | disposition home or self-care (01) ==
PROVIDERS: Emergency Provider Emergency Medicine
DX: M54.12 Radiculopathy, cervical region (principal); R51.9 Headache, unspecified; Z79.899 Other long term (current) drug therapy
CPT/HCPCS: 70450; 72125; 96372; 99283; 99284; J1885

== ENCOUNTER → 2021-09-20 08:17 | Outpatient (BNVA) | payer MEDICAID, SELFPAY | PROVIDERS: PCP Family Medicine; Referring Provider Physician Assistant; Visit Provider Dietitian, Registered | DX: E66.01 Morbid (severe) obesity due to excess calories (principal) | CPT/HCPCS: 97802 ==

== ENCOUNTER → 2021-10-18 08:29 | Outpatient (BNVA) | payer MEDICAID, SELFPAY | PROVIDERS: PCP Family Medicine; Referring Provider Dietitian, Registered; Visit Provider Physician Assistant | DX: Z13.89 Encounter for screening for other disorder (principal) ==

== ENCOUNTER → 2021-11-04 13:28 | Outpatient (REF) | payer MEDICAID, SELFPAY | LOC: HO.SL 13:28 | PROVIDERS: Visit Provider Physician Assistant | DX: Z13.89 Encounter for screening for other disorder (principal) ==

== ENCOUNTER → 2021-11-11 13:45 | Outpatient (BNVA) | payer MEDICAID, SELFPAY | PROVIDERS: PCP Family Medicine; Visit Provider Physician Assistant | DX: E66.01 Morbid (severe) obesity due to excess calories (principal); Z68.43 Body mass index [BMI] 50.0-59.9, adult; E10.9 Type 1 diabetes mellitus without complications; I10 Essential (primary) hypertension; Z11.0 Encounter for screening for intestinal infectious diseases | CPT/HCPCS: 83013; 99211; 99212 ==

== ENCOUNTER 2021-11-11 18:01 | Outpatient (REF) | payer MEDICAID, SELFPAY ==
[2021-11-12 15:28] LABS: H Pylori Breath Test Negative (Negative)
== END 2021-11-11 18:02 | disposition home or self-care (01) ==
LOC: HO.LNP 18:01
PROVIDERS: Visit Provider Physician Assistant
DX: Z01.818 Encounter for other preprocedural examination (principal); E66.01 Morbid (severe) obesity due to excess calories; I10 Essential (primary) hypertension; Z11.0 Encounter for screening for intestinal infectious diseases; Z68.43 Body mass index [BMI] 50.0-59.9, adult
CPT/HCPCS: 83013

== ENCOUNTER 2021-12-09 07:53 | Outpatient (REF) | payer MEDICAID, SELFPAY ==
--- NOTE | ~2021-12-09 | FL_ITS ---
EXAMINATION: FL UPPER GI SERIES CLINICAL INFORMATION: Bariatric service evaluation. E66.01. COMPARISON: Upper GI series 04/03/2019. TECHNIQUE: Upper GI series is performed using fluoroscopic evaluation in addition to multiple fluoroscopic spot views. The patient is imaged both upright and prone and using both thick and thin barium sulfate along with effervescent granules. Applications Processor assisted during the exam. Fluoroscopy time: 1.7 minutes DAP: 29.503 Gycm2 Fluoroscopic spot images: 20 FINDINGS: There is normal esophageal motility. There is no obstruction, stricture, ulceration, or hernia. No gastroesophageal reflux is demonstrated. Prior study described a small sliding hiatal hernia approximately 2 cm which is not demonstrated on today's exam. The stomach shows no thickened folds or ulcer crater or outlet obstruction. The duodenal bulb is pliable and without ulcer crater or scarring. The post bulbar duodenum the jejunal mucosal pattern are unremarkable. FL/FL upper GI series IMPRESSION: Normal study.
--- NOTE | ~2021-12-09 | US_ITS ---
EXAMINATION: US COMPLETE ABDOMEN WITH LIVER ELASTOGRAPHY CLINICAL INFORMATION: Morbid obesity COMPARISON: Ultrasound of January 20, [address] scan of January 20, 2021 TECHNIQUE: Real-time imaging of the abdominal viscera. Noninvasive ultrasound liver fibrosis assessment is performed using Sally ElastPQ point quantification shear wave elastography (2D-SWE) with a C5-2 MHz transducer. Multiple elastography samples are obtained. FINDINGS: PANCREAS: Normal. The visualized pancreatic head and body are normal in appearance. The remainder of the pancreas is obscured from visualization by the overlying bowel gas. ABDOMINAL AORTA: The proximal, middle, and distal aortic segments are normal in caliber. INFERIOR VENA CAVA: Visualized portions are normal. LIVER: There is mildly diffusely increased echogenicity present without focal mass or intrahepatic bile duct dilatation. The right lobe measures 17.2 cm in length. The left lobe measures 14.5 cm in length. Portal flow is hepatopedal Shear wave liver elastography median stiffness is 1.66 m/s (reference: normal median stiffness is 1.3 m/s or less). IQR/median stiffness to assess sampling precision is 0.02 (reference: good quality data set is IQR/median stiffness of 0.15 or less). GALLBLADDER: Normal. The gallbladder is physiologically distended without evidence of stones, sludge, polyps, wall thickening or pericholecystic fluid. COMMON BILE DUCT: Normal in caliber measuring 0.3 cm in diameter. RIGHT KIDNEY: Normal. No hydronephrosis. No renal calculi or focal parenchymal lesions. The kidney measures 13.1 cm in maximum dimension. LEFT KIDNEY: Normal. No hydronephrosis. No renal calculi or focal solid parenchymal lesions. There is a 1.5 x 1.1 x 1.6 cm mid pole cyst. The kidney measures 13.5 cm in maximum dimension. SPLEEN: Normal. The spleen measures 14.3 cm in maximum dimension. FREE FLUID: None. US/US abdomen comp w elastography IMPRESSION: 1. Left renal cyst. Mild fatty infiltration of the liver. 2. Liver elastography: In the absence of other known clinical signs, measurements rule out compensated advanced chronic liver disease. If there are known clinical signs, further testing may be needed for confirmation. REFERENCE: Society of Radiologists in Ultrasound Liver Stiffness Thresholds (2020): LIVER STIFFNESS THRESHOLDS: *Liver Stiffness equal or less than 1.3 m/s: High probability of being normal. *Liver Stiffness less than 1.7 m/s: In the absence of other known clinical signs, rules out compensated advanced chronic liver disease. *Liver Stiffness 1.7-2.1 m/s: Suggestive of compensated advanced chronic liver disease but need further test for confirmation. *Liver Stiffness over 2.1 m/s: Rules in compensated advanced chronic liver disease. *Liver Stiffness over 2.4 m/s: Suggestive of clinically significant portal hypertension. QUALITY OF DATA SET: *IQR/Median value equal or less than 0.15 implies a quality data set. *IQR/Median value over 0.15 implies a poor quality data set. SIGNIFICANT CHANGE FROM PRIOR EXAM: Significant change if liver stiffness measurement is 10% or greater from prior exam. OTHER CONSIDERATIONS: The stage of liver fibrosis may be overestimated in the setting of acute hepatitis, liver inflammation, elevated liver function tests, hepatic vascular congestion, obstructive cholestasis, non-fasting state, and infiltrative diseases such as amyloidosis and lymphoma. In some patients with NAFLD, the liver stiffness thresholds for compensated advanced chronic liver disease may be lower. In causes other than viral hepatitis and NAFLD, liver stiffness thresholds are not well established.
[2021-12-09 10:02] LABS: MANUAL DIFF FLAG NO
[2021-12-09 10:30] LABS: Basophils Percent Auto 0.2 % (0-2); Eosinophils Absolute Auto 0.4 X10*3/uL (0.0-0.4); Eosinophils Percent Auto 4.2 % (0-4); Hematocrit 39.9 % (42.0-52.0); Hemoglobin 12.8 g/dl (14.0-18.0); Imm Gran Abs Auto 0.03 X10*3/uL (0.00-0.03); Imm Gran Pct Auto 0.3 % (0.0-0.4); Lymphocytes Absolute Auto 2.1 X10*3/uL (1.2-4.9); Lymphocytes Percent Auto 24.6 % (20-40); Mean Corpuscular HGB Conc 32.1 g/dl (31.0-36.0); Mean Corpuscular Hemoglobin 26.8 pg (27.0-33.0); Mean Corpuscular Volume 83.6 fL (80.0-98.0); Mean Platelet Volume 12.1 fL (9.4-12.4); Monocytes Absolute Auto 0.6 X10*3/uL (0.1-1.2); Neutrophils Absolute Auto 5.5 x10*3/uL (2.0-8.3); Neutrophils Percent Auto 63.7 % (45-73); Platelet Count 134 X10*3/uL (160-400); Red Blood Count 4.77 X10*6/uL (4.60-5.80); Red Cell Distribution Width 12.9 % (11.0-16.0); White Blood Count 8.6 X10*3/uL (4.8-10.8)
[2021-12-09 10:57] LABS: Estimated Average Glucose 114 mg/dL; Hemoglobin A1c % 5.6 %
[2021-12-09 11:02] LABS: Alanine Aminotransferase 18 U/L (0-40); Albumin Level 3.9 g/dL (3.5-5.0); Alkaline Phosphatase 67 U/L (39-117); Anion Gap 15 (12-20); Aspartate Amino Transferase 26 U/L (5-37); Bilirubin Total 0.9 mg/dL (0.0-1.0); Blood Urea Nitrogen 31 mg/dL (9-16); C Reactive Protein 1.86 mg/dL (< or = 0.50); Calcium 9.3 mg/dL (8.4-10.2); Carbon Dioxide 24 mmol/L (22-29); Chloride 105 mmol/L (96-108); Cholesterol 140 mg/dL; Estimated Glomerular Filt Rate > 60; Glucose Random 98 mg/dL (60-115); HDL Cholesterol 41 mg/dL; Iron 62 mcg/dL (45-160); LDL Cholesterol Calculated 84 mg/dl; Percent Iron Saturation 21 % (15-50); Potassium 4.5 mmol/L (3.3-5.1); Sodium 139 mmol/L (135-145); Total Iron Binding Capacity 298 mcg/dL (228-428); Total Protein 7.8 g/dL (6.5-8.0); Triglycerides 77 mg/dL; Unsaturated Iron Binding 236 ug/dL
[2021-12-09 11:22] LABS: Ferritin 112 ng/mL (20-250); Insulin 35 uU/mL (2-29); Vitamin D 25-OH Total 24.1 ng/mL (>30)
[2021-12-09 12:07] LABS: Folate 12.7 ng/mL (> or = 4.0); Vitamin B12 441 pg/mL (200-900)
[2021-12-10 13:26] LABS: Calcium (PTHI) 9.5 mg/dL (8.6-10.3); PTHI 37 pg/mL (16-77)
[2021-12-14 06:01] LABS: Zinc 115 mcg/dL (60-130)
[2021-12-15 08:51] LABS: Vitamin B1 <6 nmol/L (8-30)
[2021-12-15 17:27] LABS: Vitamin A 37 mcg/dL (38-98)
== END 2021-12-09 07:54 | disposition home or self-care (01) ==
LOC: HO.US 07:53
PROVIDERS: Visit Provider Physician Assistant
DX: Z01.818 Encounter for other preprocedural examination (principal); E66.01 Morbid (severe) obesity due to excess calories; K21.9 Gastro-esophageal reflux disease without esophagitis
CPT/HCPCS: 36415; 74240; 76705; 76981; 80053; 80061; 82306; 82607; 82728; 82746; 83036; 83525; 83540; 83970; 84425; 84443; 84590; 84630; 85025; 86140

== ENCOUNTER 2022-01-04 13:28 | Emergency (ER) | payer MEDICAID, SELFPAY ==
--- NOTE | ~2022-01-04 | XR_ITS ---
EXAMINATION: XR SHOULDER, LEFT CLINICAL INFORMATION: Shoulder pain COMPARISON: Left shoulder radiographs 10/08/2020 as well as 01/19/2017 TECHNIQUE: Three views of the left shoulder. FINDINGS: Again seen are severe degenerative changes in the glenohumeral joint with sclerosis osteophytes and subchondral cyst formation. No acute fractures are dislocations are seen. Of note, there is a small corticated osseous body seen which may be within the joint. This was present at the time of the 2020 study but was not seen at the time of the 2016 exam. XR/XR shoulder LT min 2V IMPRESSION: Unchanged severe degenerative changes left shoulder with probable intra-articular loose osseous body. No acute finding.
[2022-01-04 14:46] VITALS: BP 137/72; PULSE 80; RESP 16; TEMP 36.3; O2SAT 97; BMI 58.2
--- NOTE | 2022-01-04 15:50 | ED_ITS ---
HPI - Extremity Problem General Chief complaint: Extremity Problem Stated complaint: Dislocated L arm Time Seen by Provider: 01/04/22 15:34 Source: patient Mode of arrival: ambulatory Limitations: language barrier (Thai-speaking director of medical staff services utilized) History of Present Illness HPI Narrative: Patient presents emergency department for evaluation of atraumatic left shoulder pain. He states that he awoke today with severe pain to the left anterior shoulder that is radiating down his arm. He reports a history of arthritis to this shoulder. Denies any numbness, tingling, cold sensation, or weakness. Denies fevers, chills, redness, swelling, rash, warmth Related Data Home Medications Medication Instructions Recorded Confirmed dulaglutide 0.75 mg/0.5 mL 0.75 mg subcut QWEEK 07/26/21 10/18/21 subcutaneous pen injector (Trulicity) insulin glargine 100 unit/mL 55 unit subcut QPM 07/26/21 10/18/21 subcutaneous solution (Lantus U-100 Insulin) insulin lispro 100 unit/mL 35 unit subcut TID 07/26/21 10/18/21 subcutaneous pen (Humalog KwikPen (U-100) Insulin) lisinopril 2.5 mg tablet 2.5 mg PO DAILY 07/26/21 10/18/21 Previous Rx's Medication Instructions Recorded cholecalciferol (vitamin D3) 25 25 mcg PO DAILY #30 caps 12/09/21 mcg (1,000 unit) capsule iron,carbonyl 65 mg-vitamin C 125 1 tab PO BEDTIME #30 tabs 12/09/21 mg tablet,delayed release (Vitron-C) thiamine HCl (vitamin B1) 50 mg 50 mg PO DAILY #30 tabs 12/16/21 tablet vitamin A palmitate 10,000 unit 20,000 unit PO DAILY 2 weeks #28 12/16/21 tablet tabs lidocaine 5 % topical patch 1 patch topical DAILY #15 ea 01/04/22 naproxen 500 mg tablet 500 mg PO BID PRN pain #10 tabs 01/04/22 Allergies Allergy/AdvReac Type Severity Reaction Status Date / Time SEAFOOD Allergy Unknown SWELLING Verified 11/11/21 13:51 Review of Systems Review of Systems: Musculoskeletal: Positive shoulder pain Yes all other systems are reviewed and are negative PMFSH Past Medical History Attestation statement: The following information was validated with the patient. Source: old records reviewed Medical History Carpal tunnel syndrome Diabetes Shoulder dislocation Sleep apnea Surgical History Hx of appendectomy Family History Family History Mother No problems noted. Brother No problems noted. Daughter No problems noted. Daughter No problems noted. Daughter No problems noted. Son No problems noted. Son No problems noted. Social History Social History Alcohol intake: never Patient Tobacco Use Status: Never used Tobacco Advance Directives: No Advance Directives Information Provided: Yes Physical Exam Vital Signs: Vital Signs: Last Vital Signs Temp 97.3 F 01/04/22 14:46 Pulse 80 01/04/22 14:46 Resp 16 01/04/22 14:46 BP 137/72 01/04/22 14:46 Pulse Ox 97 01/04/22 14:46 O2 Del Method 01/04/22 14:46 BMI result Body Mass Index 58.2 Appearance: Alert.?Oriented to person, place and time. No acute distress.?Normal affect. Eyes: Pupils equal, round and reactive to light.? ENT: Pharynx normal.?? Neck: Normal inspection.? Neck supple.?? CVS: Heart sounds normal. Normal heart rate and rhythm.? Pulses normal.?? Respiratory: No respiratory distress.? Lung sounds clear to auscultation bilaterally?? Abdomen: Soft and non-tender. Normoactive bowel sounds. ?? Skin: Skin warm and dry.? Normal skin color.? ?? Extremities: No lower extremity edema.? Left shoulder with limited AROM, point tenderness over the biceps tendon, no weakness, sensation intact. Neuro: Moves all extremities spontaneously. Sensation intact bilaterally. No motor deficits Ambulates with normal steady gait. Course Course Course Narrative: Patient is a 41-year-old male with a past medical history of obesity, type 1 diabetes, hypertension, BTESY, arthritis who presents emergency department for evaluation of atraumatic left arm pain. Reports a history of arthritis. Cur rently prescribed Suboxone and gabapentin. No obvious deformity on physical exam. Not consistent with septic arthritis. X-ray reveals no acute fracture dislocation, severe degenerative changes are noted. Suspect pain to be related to tendinitis and chronic arthritis. Discussed gentle stretching and [id number] exercises, naproxen, Lidoderm patch, follow-up with his primary care provider. Discussed worsening signs and symptoms to return back to emergency department for. All questions were answered, patient was discharged home in stable condition, ambulated out of the emergency department steady gait. MDM - Extremity (Nontraumatic) Medical Records Attestation: I reviewed the patient's medical records. Imaging Data shoulder XR: Radiologist's impression: XR/XR shoulder LT min 2V IMPRESSION: Unchanged severe degenerative changes left shoulder with probable intra-articular loose osseous body. No acute finding. Discharge Plan Discharge Clinical Impression: Arthritis, Left shoulder tendonitis Patient Disposition: Home, Self-Care Instructions: Arthralgia (ED) Additional Instructions: As we discussed the x-ray of your left shoulder does not reveal any fracture or dislocation. Your pain is most likely due to tendinitis, in addition to the arthritis to have. You can take Tylenol 500 mg, 2 tablets (1,000mg) every 4-6 hours as needed for pain, but not to exceed 3 doses daily (3,000mg).? You have been given new prescription for naproxen, do not take additional [id number] Motrin/ibuprofen, Aleve, or aspirin while taking this medication You have been given a new prescription for a Lidoderm patch, leave this on for 12 hours and then remove for 12 hours Contact your primary care provider to arrange for a follow-up visit within 1 week Return to the emergency department with any new or worsening symptoms or concerns such as fevers, chills, chest pain, shortness of breath, numbness, tingling. Prescriptions: New lidocaine 5 % adhesive patch,medicated 1 patch topical DAILY Qty: 15 0RF Rx Instructions: leave on most painful area for up to 12 hrs naproxen 500 mg tablet 500 mg PO BID PRN (Reason: pain) Qty: 10 0RF No Action Vitron-C 65 mg iron- 125 mg tablet,delayed release (DR/EC) 1 tab PO BEDTIME Qty: 30 5RF cholecalciferol (vitamin D3) 25 mcg (1,000 unit) capsule 25 mcg PO DAILY Qty: 30 5RF vitamin A palmitate 10,000 unit tablet 20,000 unit PO DAILY 14 Days Qty: 28 0RF thiamine HCl (vitamin B1) 50 mg tablet 50 mg PO DAILY Qty: 30 5RF lisinopril 2.5 mg tablet 2.5 mg PO DAILY Lantus U-100 Insulin 100 unit/mL solution 55 unit subcut QPM insulin lispro [Humalog KwikPen Insulin] 100 unit/mL insulin pen 35 unit subcut TID Trulicity 0.75 mg/0.5 mL pen injector 0.75 mg subcut QWEEK Stand Alone Forms: Work/School Release Interventions: ED Discharge Assessment Last Done: 01/04/22 17:02 Discharge Date/Time: 01/04/22 17:03
[2022-01-04] MEDS: Ketorolac Tromethamine 30 MG/ML VIAL IM (16:55)
[2022-01-04] MEDS: Lidocaine 4 % Patch ADH..PATCH 1 PATCH TRANSDERMA (16:57)
== END 2022-01-04 17:03 | disposition home or self-care (01) ==
PROVIDERS: Emergency Provider Emergency Medicine
DX: M19.012 Primary osteoarthritis, left shoulder (principal); M75.22 Bicipital tendinitis, left shoulder; M25.512 Pain in left shoulder; E11.9 Type 2 diabetes mellitus without complications; I10 Essential (primary) hypertension; E66.01 Morbid (severe) obesity due to excess calories; Z68.43 Body mass index [BMI] 50.0-59.9, adult; Z79.4 Long term (current) use of insulin; Z79.899 Other long term (current) drug therapy
CPT/HCPCS: 73030; 96372; 99283; 99284; J1885

== ENCOUNTER 2022-01-07 05:10 | Emergency (ER) | payer MEDICAID, SELFPAY ==
[2022-01-07 05:44] VITALS: BP 129/75; PULSE 63; RESP 20; TEMP 36.7; O2SAT 98; BMI 58.2
--- NOTE | 2022-01-07 08:00 | ED.EXTPRO ---
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 Patient states he was seen here approximately 1 week ago. Related Data Home Medications Medication Instructions Recorded Confirmed dulaglutide 0.75 mg/0.5 mL 0.75 mg subcut QWEEK 07/26/21 10/18/21 subcutaneous pen injector (Trulicity) insulin glargine 100 unit/mL 55 unit subcut QPM 07/26/21 10/18/21 subcutaneous solution (Lantus U-100 Insulin) insulin lispro 100 unit/mL 35 unit subcut TID 07/26/21 10/18/21 subcutaneous pen (Humalog KwikPen (U-100) Insulin) lisinopril 2.5 mg tablet 2.5 mg PO DAILY 07/26/21 10/18/21 Previous Rx's Medication Instructions Recorded cholecalciferol (vitamin D3) 25 25 mcg PO DAILY #30 caps 12/09/21 mcg (1,000 unit) capsule iron,carbonyl 65 mg-vitamin C 125 1 tab PO BEDTIME #30 tabs 12/09/21 mg tablet,delayed release (Vitron-C) thiamine HCl (vitamin B1) 50 mg 50 mg PO DAILY #30 tabs 12/16/21 tablet vitamin A palmitate 10,000 unit 20,000 unit PO DAILY 2 weeks #28 12/16/21 tablet tabs lidocaine 5 % topical patch 1 patch topical DAILY #15 ea 01/04/22 naproxen 500 mg tablet 500 mg PO BID PRN pain #10 tabs 01/04/22 ketorolac 10 mg tablet 10 mg PO Q6H PRN pain 5 days #20 01/07/22 tabs Allergies Allergy/AdvReac Type Severity Reaction Status Date / Time SEAFOOD Allergy Unknown SWELLING Verified 11/11/21 13:51 Review of Systems Review of Systems: Pertinent positives and negatives as stated in HPI 10 point review of systems is otherwise negative. FOR[facility]LY [facility], [facility] Past Medical History Medical History Carpal tunnel syndrome Diabetes Shoulder dislocation Sleep apnea Surgical History Hx of appendectomy Family History Family History Mother No problems noted. Brother No problems noted. Daughter No problems noted. Daughter No problems noted. Daughter No problems noted. Son No problems noted. Son No problems noted. Social History Social History Alcohol intake: never Patient Tobacco Use Status: Never used Tobacco Use of substances other than those prescribed or required for medical reasons: No Advance Directives: Yes Advance Directives Information Provided: Yes Advance Directives on File: No Physical Exam Vital Signs: Vital Signs: Last Vital Signs Temp 98.1 F 01/07/22 05:44 Pulse 63 01/07/22 05:44 Resp 20 01/07/22 05:44 BP 129/75 01/07/22 05:44 Pulse Ox 98 01/07/22 05:44 O2 Del Method 01/07/22 05:44 BMI result Body Mass Index 58.2 VITAL SIGNS: Reviewed. GENERAL: Well developed, well nourished, in no acute distress. HEAD: Normocephalic/atraumatic EYES: PERRLA, EOMI EARS: Ext canals without abnormality OROPHARYNX: no oral lesions noted, posterior pharynx clear LUNGS: Normal breath sounds. No adventitious sounds or accessory muscle use. SpO2<98> CARDIOVASCULAR: Regular rate and rhythm without noted murmurs ABDOMEN: Soft, non-tender, non-distended with bowel sounds. MUSCULOSKELETAL: No tenderness, deformities, or effusions noted on gross inspection. EXTREMITIES: No cyanosis, clubbing or edema; LEFT UPPER EXTREMITY: Shoulder has full range of motion although it is painful, no erythema/swelling noted, hand capability lead is 5/5, no deformities noted, sensation and symmetrical pulses are noted.. SKIN: Inspection of the skin reveals no rashes NEUROLOGIC: Alert and oriented x 4. Strength and sensation to light touch were grossly intact x 4. Course Course Course Narrative: 41-year-old male with history and clinical presentation consistent with severe osteoarthritis of the left shoulder and questionable intra-articular loose osseous body noted on x-ray 01/04. Patient continues to have pain and he will be transitioned from naproxen on to Toradol and was provided with a referral to follow-up with orthopedics this morning. He understands that he will be unlikely they have an appointment this morning but they will be able to schedule him for follow-up. He understands the plan as well as a results. Discharge Plan Discharge Clinical Impression: Left shoulder pain, Osteoarthritis Patient Disposition: Home, Self-Care Instructions: Osteoarthritis (ED), Shoulder Pain (ED) Additional Instructions: 1. Tylenol 1000 mg, por v?a oral, cada 6 horas seg?n sea necesario para controlar el dolor. No exceda los 4000 mg dentro de las 24 horas. 2. Aplique el parche de lidoca?na en el ?bennett de m?xima sensibilidad dania se indica en el empaque exterior. 3. Se le proporcion? jad derivaci?n para seguimiento con un servicio ortop?dico en courtney de los casos que se enumeran a continuaci?n, le recomendamos que llame esta ma?jasper, no necesariamente tendr? jad jama hoy. Regrese a la nia de emergencias si los s?ntomas empeoran. Prescriptions: New ketorolac 10 mg tablet 10 mg PO Q6H PRN (Reason: pain) 5 Days Qty: 20 0RF Rx Instructions: 1. Patient received initial Toradol in the emergency room. 2. Please instruct patient to stop all other NSAIDs, specifically naproxen. No Action Vitron-C 65 mg iron- 125 mg tablet,delayed release (DR/EC) 1 tab PO BEDTIME Qty: 30 5RF cholecalciferol (vitamin D3) 25 mcg (1,000 unit) capsule 25 mcg PO DAILY Qty: 30 5RF vitamin A palmitate 10,000 unit tablet 20,000 unit PO DAILY 14 Days Qty: 28 0RF thiamine HCl (vitamin B1) 50 mg tablet 50 mg PO DAILY Qty: 30 5RF lidocaine 5 % adhesive patch,medicated 1 patch topical DAILY Qty: 15 0RF Rx Instructions: leave on most painful area for up to 12 hrs naproxen 500 mg tablet 500 mg PO BID PRN (Reason: pain) Qty: 10 0RF lisinopril 2.5 mg tablet 2.5 mg PO DAILY Lantus U-100 Insulin 100 unit/mL solution 55 unit subcut QPM insulin lispro [Humalog KwikPen Insulin] 100 unit/mL insulin pen 35 unit subcut TID Trulicity 0.75 mg/0.5 mL pen injector 0.75 mg subcut QWEEK Referrals: Valeriano Chowdary MD [Physician] - (41-year-old male with pretty severe degenerative changes in the left shoulder, as well as being diabetic, x-ray reading possible intra-articular osseous body, but possibility of frozen shoulder as well. Thank you for evaluating.) Stand Alone Forms: Work/School Release Print Language: Uzbek
[2022-01-07 08:08] VITALS: BP 145/87; PULSE 59; RESP 20; O2SAT 98
[2022-01-07] MEDS: Acetaminophen 325 MG TABLET 975 MG PO (08:09)
[2022-01-07] MEDS: Ketorolac Tromethamine 15 MG/ML VIAL IM (08:10)
== END 2022-01-07 08:55 | disposition home or self-care (01) ==
PROVIDERS: Emergency Provider Student in an Organized Health Care Education/Training Program
DX: M25.512 Pain in left shoulder (principal); M19.011 Primary osteoarthritis, right shoulder; E11.9 Type 2 diabetes mellitus without complications; Z79.4 Long term (current) use of insulin
CPT/HCPCS: 96372; 99284; J1885

== ENCOUNTER → 2022-01-11 08:23 | Outpatient (BNVA) | payer MEDICAID, SELFPAY | PROVIDERS: Visit Provider Physician Assistant | DX: M19.012 Primary osteoarthritis, left shoulder (principal); Z87.39 Personal history of other diseases of the musculoskeletal system and connective tissue | CPT/HCPCS: 99202; J1020 ==

== ENCOUNTER → 2022-02-09 15:15 | Outpatient (BNVA) | payer MEDICAID, SELFPAY | PROVIDERS: Visit Provider Anesthesiology | DX: M19.012 Primary osteoarthritis, left shoulder (principal); E66.01 Morbid (severe) obesity due to excess calories; Z68.44 Body mass index [BMI] 60.0-69.9, adult | CPT/HCPCS: 99202 ==

== ENCOUNTER 2022-03-08 06:12 | Outpatient (REF) | payer MEDICAID, SELFPAY ==
--- NOTE | ~2022-03-08 | FL_ITS ---
EXAMINATION: XR FLUOROSCOPY WITH IMAGES CLINICAL INFORMATION: Primary osteoarthritis left shoulder. COMPARISON: None. TECHNIQUE: Fluoroscopy performed by Apoorva Tello. Fluoroscopy time: 0.2. Cumulative Dose: 3.14 mGy. DAP: 0.856 Gy-cm2. Images: 1. FINDINGS: There is a single image of right shoulder with needle positioned about the shoulder joint with extracapsular contrast. Moderate inferior glenohumeral degenerative arthritic spurring is seen. The soft tissues are normal. FL/FL guidance in treatment room IMPRESSION: Fluoroscopy guidance was provided to referrer for pain management.
== END 2022-03-08 06:13 | disposition home or self-care (01) ==
LOC: CF 06:12
PROVIDERS: Visit Provider Anesthesiology
DX: M19.012 Primary osteoarthritis, left shoulder (principal); E66.01 Morbid (severe) obesity due to excess calories
CPT/HCPCS: 20610

== ENCOUNTER → 2022-04-04 11:28 | Outpatient (BNVA) | payer MEDICAID, SELFPAY | PROVIDERS: PCP Nurse Practitioner Primary Care; Visit Provider Anesthesiology | DX: M19.012 Primary osteoarthritis, left shoulder (principal); E66.01 Morbid (severe) obesity due to excess calories | CPT/HCPCS: 99212 ==

== ENCOUNTER → 2022-06-12 21:42 | Outpatient (REF) | payer MEDICAID, SELFPAY | LOC: HO.SL 21:42 | PROVIDERS: PCP Nurse Practitioner Primary Care; Visit Provider Nurse Practitioner Primary Care | DX: G47.33 Obstructive sleep apnea (adult) (pediatric) (principal) | CPT/HCPCS: 95811 ==

== ENCOUNTER → 2022-06-27 13:26 | Outpatient (BNVA) | payer MEDICAID, SELFPAY | PROVIDERS: PCP Nurse Practitioner Primary Care; Visit Provider Nurse Practitioner Family | DX: G47.33 Obstructive sleep apnea (adult) (pediatric) (principal); Z99.89 Dependence on other enabling machines and devices | CPT/HCPCS: 99202 ==

== ENCOUNTER 2022-07-05 16:28 | Emergency (ER) | payer MEDICAID, SELFPAY ==
--- NOTE | ~2022-07-05 | XR_ITS ---
EXAMINATION: XR CHEST CLINICAL INFORMATION: Shortness of breath COMPARISON: Chest x-ray 03/20/2019 TECHNIQUE: 2 views of the chest were obtained. FINDINGS: The lungs are clear. No airspace consolidation, pleural effusion, or pneumothorax. The cardiomediastinal silhouette is within normal limits. No acute osseous injury. XR/XR chest 2V IMPRESSION: No acute pulmonary process.
--- NOTE | ~2022-07-05 | US_ITS ---
EXAMINATION: US VENOUS ULTRASOUND WITH DOPPLER LOWER EXTREMITY, RIGHT CLINICAL INFORMATION: Right lower extremity pain, swelling, redness. COMPARISON: None TECHNIQUE: Ultrasound of the deep veins is performed from the hip to the calf with compression sonography and color and pulse Doppler assessment. Spectral analysis with color-flow imaging is performed. FINDINGS: There is normal venous compression and respiratory variation and augmented flow. The visualized common femoral vein, superficial femoral vein, profunda femoral vein, popliteal vein, and the trifurcation region shows no evidence of deep venous thrombosis. The visualized posterior tibial veins appear patent. The peroneal veins are not visualized. There is no significant popliteal fossa cyst. . If the patient's symptoms persist, followup ultrasound in 5 days 7 days might be of value to exclude proximal propagation from a non-visualized calf vein. US/US venous duplex LE RT IMPRESSION: No DVT demonstrated in the right lower extremity extending from the common femoral vein to the popliteal vein. Limited evaluation the calf veins. If the patient's symptoms persist, followup ultrasound in 5-7 days might be of value to exclude proximal propagation from a non-visualized calf vein.
--- NOTE | 2022-07-05 16:50 | ED.EXTPRO ---
HPI - Extremity Problem General Chief complaint: Extremity Problem <Emerald Mckeon CNP - Last Filed: 07/05/22 16:57> Stated complaint: R/O DVT on legs <Emerald Mckeon CNP - Last Filed: 07/05/22 16:57> Time Seen by Provider: 07/05/22 17:52 <Emerald Mckeon CNP - Last Filed: 07/05/22 16:57> Source: patient <Jesenia Ku NP - Last Filed: 07/05/22 18:19> Mode of arrival: ambulatory <Jesenia Ku NP - Last Filed: 07/05/22 18:19> Limitations: no limitations <Jesenia Ku NP - Last Filed: 07/05/22 18:19> History of Present Illness HPI Narrative: 41-year-old male past medical history significant for hypertension, obstructive sleep apnea, obesity, diabetes here with intermittent redness/swelling to right lower leg over the next 2 months worsened since yesterday. No fevers, chills, shortness of breath, chest pain. No recent travel or sick contact. <Jesenia Ku NP - Last Filed: 07/05/22 18:19> Related Data Home medications: Home Medications Medication Instructions Recorded Confirmed dulaglutide 0.75 mg/0.5 mL 0.75 mg subcut QWEEK 07/26/21 04/04/22 subcutaneous pen injector (Trulicity) insulin glargine 100 unit/mL 55 unit subcut QPM 07/26/21 04/04/22 subcutaneous solution (Lantus U-100 Insulin) insulin lispro 100 unit/mL 35 unit subcut TID 07/26/21 04/04/22 subcutaneous pen (Humalog KwikPen (U-100) Insulin) lisinopril 2.5 mg tablet 2.5 mg PO DAILY 07/26/21 04/04/22 buprenorphine 8 mg-naloxone 2 mg 10 mg sublingual TID 02/09/22 04/04/22 sublingual film (Suboxone) Previous Rx's Medication Instructions Recorded cholecalciferol (vitamin D3) 25 25 mcg PO DAILY #30 caps 12/09/21 mcg (1,000 unit) capsule thiamine HCl (vitamin B1) 50 mg 50 mg PO DAILY #30 tabs 12/16/21 tablet vitamin A palmitate 10,000 unit 20,000 unit PO DAILY 2 weeks #28 12/16/21 tablet tabs lidocaine 5 % topical patch 1 patch topical DAILY #15 ea 01/04/22 meloxicam 15 mg tablet 15 mg PO DAILY 30 days #30 tabs 03/16/22 cephalexin 500 mg capsule 500 mg PO TID #21 caps 07/05/22 doxycycline hyclate 100 mg tablet 100 mg PO BID #20 tabs 07/05/22 <Emerald Mckeon CNP - Last Filed: 07/05/22 16:57> Allergies/Adverse reactions: Allergies Allergy/AdvReac Type Severity Reaction Status Date / Time seafood Allergy Unknown Swelling Verified 06/28/22 09:59 <Emerald Mckeon CNP - Last Filed: 07/05/22 16:57> Review of Systems Review of Systems: Yes all other systems are reviewed and are negative <Jesenia Ku NP - Last Filed: 07/05/22 18:19> Constitutional: Constitutional: Reports no additional constitutional complaints, Denies body ache(s), Denies chills, Denies fever(s), Denies headache(s) and Denies weakness <Jesenia Ku NP - Last Filed: 07/05/22 18:19> Eyes: Eyes: Reports no additional eye complaints and Denies change in vision <Jesenia Ku NP - Last Filed: 07/05/22 18:19> ENT: Reports system reviewed and no additional complaints, except as documented, Denies dizziness, Denies headache(s), Denies nasal congestion, Denies nasal discharge and Denies neck pain <Jesenia uK NP - Last Filed: 07/05/22 18:19> Cardiovascular: Cardiovascular: Reports no additional cardiovascular complaints, Denies chest pain, Denies leg edema and Denies dyspnea <Jesenia Ku NP - Last Filed: 07/05/22 18:19> Respiratory: Respiratory: Reports no additional respiratory complaints, Denies cough and Denies dyspnea <Jesenia Ku NP - Last Filed: 07/05/22 18:19> Gastrointestinal: Gastrointestinal: Reports no additional gastrointestinal complaints, Denies abdominal pain, Denies diarrhea, Denies nausea and Denies vomiting <Jesenia Ku NP - Last Filed: 07/05/22 18:19> Genitourinary: Genitourinary: Denies urinary incontinence <Jesenia Ku NP - Last Filed: 07/05/22 18:19> Musculoskeletal: Musculoskeletal: Reports no additional musculoskeletal complaints, Denies back pain, Denies arthralgias, Denies joint swelling, Denies neck pain, Denies numbness and Denies tingling <Jesenia Ku NP - Last Filed: 07/05/22 18:19> Integumentary/Breasts: Skin/Breast: Reports system reviewed and no additional complaints, except as docu, Reports swelling, Reports erythema and Denies rash <Jesenia Ku NP - Last Filed: 07/05/22 18:19> Neurologic: Reports system reviewed and no additional complaints, except as documented, Denies Abnormal speech present, Denies dizziness, Denies headache(s), Denies numbness, Denies tingling and Denies weakness <Jesenia Ku NP - Last Filed: 07/05/22 18:19> [facility] Past Medical History Attestation statement: The following information was validated with the patient. <Jesenia Ku NP - Last Filed: 07/05/22 18:19> Source: old records reviewed and nursing notes reviewed <Jesenia Ku NP - Last Filed: 07/05/22 18:19> Medical History: Medical History Carpal tunnel syndrome Diabetes Shoulder dislocation Sleep apnea <Emerald Mckeon CNP - Last Filed: 07/05/22 16:57> Surgical History: Surgical History Hx of appendectomy <Emerald Mckeon CNP - Last Filed: 07/05/22 16:57> Family History Family History: Family History Mother No problems noted. Brother No problems noted. Daughter No problems noted. Daughter No problems noted. Daughter No problems noted. Son No problems noted. Son No problems noted. 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 <Emerald Mckeon CNP - Last Filed: 07/05/22 16:57> Physical Exam Vital Signs: Vital Signs: Last Vital Signs Temp 97.9 F 07/05/22 16:52 Pulse 88 07/05/22 17:53 Resp 16 07/05/22 17:53 BP 141/71 H 07/05/22 17:53 Pulse Ox 97 07/05/22 17:53 O2 Del Method 07/05/22 17:53 BMI result Body Mass Index 66.9 <Emerald Mckeon CNP - Last Filed: 07/05/22 16:57> Vital Signs: Last Vital Signs Temp 97.9 F 07/05/22 16:52 Pulse 88 07/05/22 17:53 Resp 16 07/05/22 17:53 BP 141/71 H 07/05/22 17:53 Pulse Ox 97 07/05/22 17:53 O2 Del Method 07/05/22 17:53 BMI result Body Mass Index 66.9 <Jesenia Ku NP - Last Filed: 07/05/22 18:19> Const: General: cooperative, healthy appearing, comfortable and no acute distress <Jesenia Ku NP - Last Filed: 07/05/22 18:19> Orientation/consciousness: patient oriented x3 <Jesenia Ku NP - Last Filed: 07/05/22 18:19> Limitations: no limitations <Jesenia Ku NP - Last Filed: 07/05/22 18:19> HEENT: Head: Yes normal to inspection <Jesenia Ku NP - Last Filed: 07/05/22 18:19> Ears: hearing grossly normal bilaterally <Jesenia Ku EMPLOYMENT LEGAL ASSISTANT - Last Filed: 07/05/22 18:19> General nose exam: Normal external nose present <Jesenia Ku EMPLOYMENT LEGAL ASSISTANT - Last Filed: 07/05/22 18:19> Face and sinus: Yes normal facial exam <Jesenia Ku EMPLOYMENT LEGAL ASSISTANT - Last Filed: 07/05/22 18:19> Mouth: Normal oral and palatal mucosa present <Jesenia Ku EMPLOYMENT LEGAL ASSISTANT - Last Filed: 07/05/22 18:19> Throat: Yes posterior oropharynx normal <Jesenia Ku, EMPLOYMENT LEGAL ASSISTANT - Last Filed: 07/05/22 18:19> Eyes: General: appearance normal, both eyes and all related structures <Jesenia Ku EMPLOYMENT LEGAL ASSISTANT - Last Filed: 07/05/22 18:19> Pupils: Equal, round and reactive pupils present <Jesenia Ku EMPLOYMENT LEGAL ASSISTANT - Last Filed: 07/05/22 18:19> Neck: Neck: Yes normal visual inspection <Jesenia Ku EMPLOYMENT LEGAL ASSISTANT - Last Filed: 07/05/22 18:19> Chest: Chest palpation & inspection: normal inspection of the chest <Jesenia Ku EMPLOYMENT LEGAL ASSISTANT - Last Filed: 07/05/22 18:19> Resp: Effort & Inspection: normal respiratory effort <Jesenia Ku EMPLOYMENT LEGAL ASSISTANT - Last Filed: 07/05/22 18:19> Auscultation: clear to auscultation bilaterally <Jesenia Ku EMPLOYMENT LEGAL ASSISTANT - Last Filed: 07/05/22 18:19> Cardio: Rate: regular rate <Jesenia Ku EMPLOYMENT LEGAL ASSISTANT - Last Filed: 07/05/22 18:19> Rhythm: regular rhythm <Jesenia Ku EMPLOYMENT LEGAL ASSISTANT - Last Filed: 07/05/22 18:19> Peripheral pulses: Peripheral pulses 2+ throughout <Jesenia Ku EMPLOYMENT LEGAL ASSISTANT - Last Filed: 07/05/22 18:19> GI: Inspection: Yes normal to inspection <Jesenia Ku EMPLOYMENT LEGAL ASSISTANT - Last Filed: 07/05/22 18:19> Palpation (GI): Soft to palpation and nontender <Jesenia Pascucci, EMPLOYMENT LEGAL ASSISTANT - Last Filed: 07/05/22 18:19> Auscultation: normal bowel sounds <Jesenia Kings, EMPLOYMENT LEGAL ASSISTANT - Last Filed: 07/05/22 18:19> Back/Spine/Pelvis: Thoracic/Lumbar Spine: thoracic and lumbar spine normal to inspection <Jeseniaemeli Ku, EMPLOYMENT LEGAL ASSISTANT - Last Filed: 07/05/22 18:19> Skin: General skin exam: no rashes or lesions noted <Jeseniaemeli Ku, EMPLOYMENT LEGAL ASSISTANT - Last Filed: 07/05/22 18:19> Neuro: General: patient oriented x3, no focal motor deficits and normal sensation to monofilament <Jesenia Kings, EMPLOYMENT LEGAL ASSISTANT - Last Filed: 07/05/22 18:19> Cranial nerves: Yes Equal, round and reactive pupils present <Jesenia Kings, EMPLOYMENT LEGAL ASSISTANT - Last Filed: 07/05/22 18:19> Cognition (Neuro): normal cognition <Jeseniaemeli Ku, EMPLOYMENT LEGAL ASSISTANT - Last Filed: 07/05/22 18:19> Speech: No Abnormal speech present <Jesenia Kings, EMPLOYMENT LEGAL ASSISTANT - Last Filed: 07/05/22 18:19> Gait exam (Neuro): Normal gait present <Jesenia Kings, EMPLOYMENT LEGAL ASSISTANT - Last Filed: 07/05/22 18:19> Motor exam (neuro): 5/5 motor strength present throughout <Jesenia Kings, EMPLOYMENT LEGAL ASSISTANT - Last Filed: 07/05/22 18:19> Extrem: Other: 2+ DP and PT pulses. Compartments are soft and compressible. There is mild tenderness on exam. There is some warmth on <Jesenia Kings, EMPLOYMENT LEGAL ASSISTANT - Last Filed: 07/05/22 18:19> General: Yes normal to inspection <Jesenia Kings, EMPLOYMENT LEGAL ASSISTANT - Last Filed: 07/05/22 18:19> Course Course Course Narrative: This is an RME: Additional HPI, ROS, PE not included below will be deferred to primary provider. Patient is a 41 year old male who presents to the ED referred from urgent care[facility]. RLE pain, swelling, redness, calf tenderness, sent to r/o DVT. Also complaining of shortness of breath for past 3 days, denies chest pain, hx of DVT/ PE. Plan: labs, US <Emerald Mckeon CNP - Last Filed: 07/05/22 16:57> Reevaluation(s) Reevaluation #1: labs are at baseline. x-ray normal. venous ultrasound negative for DVT. exam consistent with cellulitis. patient will be sent h ome with oral antibiotics <Jesenia Ku NP - Last Filed: 07/05/22 18:19> Medical Decision Making Medical Decision Making MDM Narrative: 41-year-old male here with intermittent right leg swelling, warmth and tenderness over the last few months. patient had labs, x-ray, ultrasound ordered from triage. Will review on exam patient has right lower extremity redness, warmth, tenderness that is not circumferential with soft compressible compartments and neurovascular intact distally <Jesenia Ku NP - Last Filed: 07/05/22 18:19> Differential Diagnosis Differential Diagnoses: The differential diagnosis associated with the presentation includes <Jesenia Ku NP - Last Filed: 07/05/22 18:19> dvt, cellulitis low concern for nec fasc with intermittent, gradual onset of symptoms with pain that is well controlled <Jesenia Ku NP - Last Filed: 07/05/22 18:19> Admission/Observation Consideration of admission/observation: Escalation of care including admission/observation considered <Jesenia Ku NP - Last Filed: 07/05/22 18:19> Patient overall nontoxic appearing, afebrile, normal labs, cellulitis non circumferential. patient has not trialed oral antibiotics. Will discharge home with oral antibiotics and recommendations to return for worsening signs or symptoms for possible admission <Jesenia Ku NP - Last Filed: 07/05/22 18:19> Lab Data [facility] Lab Attestation statement: I reviewed the patient's lab results. <Jesenia Ku NP - Last Filed: 07/05/22 18:19> Result Diagrams: 07/05/22 17:27 07/05/22 17:27 <Emerald Mckeon CNP - Last Filed: 07/05/22 16:57> Labs: Lab Results 0207/05/22 07/05/22 Range/Units 17:27 17:27 17:27 WBC 9.4 (4.8-10.8) X10*3/uL RBC 4.55 L (4.60-5.80) X10*6/uL Hgb 12.6 L (14.0-18.0) g/dl Hct 37.5 L (42.0-52.0) % MCV 82.4 (80.0-98.0) fL MCH 27.7 (27.0-33.0) pg MCHC 33.6 (31.0-36.0) g/dl RDW 13.6 (11.0-16.0) % Plt Count 150 L (160-400) X10*3/uL MPV 11.8 (9.4-12.4) fL Immature Gran % (Auto) 0.3 (0.0-0.4) % Neut % (Auto) 58.1 (45-73) % Lymph % (Auto) 29.4 (20-40) % [place] % (Auto) 8.1 (2-11) % Eos % (Auto) 3.7 (0-4) % Baso % (Auto) 0.4 (0-2) % Lymph # (Auto) 2.8 (1.2-4.9) X10*3/uL [place] # (Auto) 0.8 (0.1-1.2) X10*3/uL Eos # (Auto) 0.4 (0.0-0.4) X10*3/uL Baso # (Auto) 0.0 (0.0-0.2) X10*3/uL Abs Immat Gran (auto) 0.03 (0.00-0.03) X10*3/uL Absolute Neuts (auto) 5.5 (2.0-8.3) x10*3/uL Absolute Nucleated RBC 0.000 (0.0-0.012) X10*3/uL Nucleated RBC % (auto) 0.0 (0.0-0.2) /100WBC PT 12.0 (10.0-13.1) SEC INR 1.0 (0.9-1.1) Sodium 139 (135-145) mmol/L Potassium 3.8 (3.3-5.1) mmol/L Chloride 101 (96-108) mmol/L Carbon Dioxide 29 (22-29) mmol/L Anion Gap 13 (12-20) BUN 24 H (9-16) mg/dL Creatinine 0.94 (0.5-1.4) mg/dL Estim Creat Clear Calc 162.2 Estimated GFR > 60 Random Glucose 86 (60-115) mg/dL Calcium 9.4 (8.4-10.2) mg/dL Total Bilirubin 1.1 H (0.0-1.0) mg/dL AST 28 (5-37) U/L ALT 23 (0-40) U/L Alkaline Phosphatase 67 (39-117) U/L Total Protein 7.0 (6.5-8.0) g/dL Albumin 3.8 (3.5-5.0) g/dL COVID-19 (CHARLY) (Negative) COVID-19 Clin Com Influenza Type A (ANGELA) (Negative) Influenza Type B (ANGELA) (Negative) Influenza A & B Note 07/05/22 07/05/22 Range/Units 17:27 17:27 WBC (4.8-10.8) X10*3/uL RBC (4.60-5.80) X10*6/uL Hgb (14.0-18.0) g/dl Hct (42.0-52.0) % MCV (80.0-98.0) fL MCH (27.0-33.0) pg MCHC (31.0-36.0) g/dl RDW (11.0-16.0) % Plt Count (160-400) X10*3/uL MPV (9.4-12.4) fL Immature Gran % (Auto) (0.0-0.4) % Neut % (Auto) (45-73) % Lymph % (Auto) (20-40) % [place] % (Auto) (2-11) % Eos % (Auto) (0-4) % Baso % (Auto) (0-2) % Lymph # (Auto) (1.2-4.9) X10*3/uL [place] # (Auto) (0.1-1.2) X10*3/uL Eos # (Auto) (0.0-0.4) X10*3/uL Baso # (Auto) (0.0-0.2) X10*3/uL Abs Immat Gran (auto) (0.00-0.03) X10*3/uL Absolute Neuts (auto) (2.0-8.3) x10*3/uL Absolute Nucleated RBC (0.0-0.012) X10*3/uL Nucleated RBC % (auto) (0.0-0.2) /100WBC PT (10.0-13.1) SEC INR (0.9-1.1) Sodium (135-145) mmol/L Potassium (3.3-5.1) mmol/L Chloride (96-108) mmol/L Carbon Dioxide (22-29) mmol/L Anion Gap (12-20) BUN (9-16) mg/dL Creatinine (0.5-1.4) mg/dL Estim Creat Clear Calc Estimated GFR Random Glucose (60-115) mg/dL Calcium (8.4-10.2) mg/dL Total Bilirubin (0.0-1.0) mg/dL AST (5-37) U/L ALT (0-40) U/L Alkaline Phosphatase (39-117) U/L Total Protein (6.5-8.0) g/dL Albumin (3.5-5.0) g/dL COVID-19 (CHARLY) Negative (Negative) COVID-19 Clin Com See Note Influenza Type A (ANGELA) Negative (Negative) Influenza Type B (ANGELA) Negative (Negative) Influenza A & B Note See Note <Emerald Mckeon CNP - Last Filed: 07/05/22 16:57> Lab Results 07/05/22 07/05/22 07/05/22 Range/Units 17:27 17:27 17:27 WBC 9.4 (4.8-10.8) X10*3/uL RBC 4.55 L (4.60-5.80) X10*6/uL Hgb 12.6 L (14.0-18.0) g/dl Hct 37.5 L (42.0-52.0) % MCV 82.4 (80.0-98.0) fL MCH 27.7 (27.0-33.0) pg MCHC 33.6 (31.0-36.0) g/dl RDW 13.6 (11.0-16.0) % Plt Count 150 L (160-400) X10*3/uL MPV 11.8 (9.4-12.4) fL Immature Gran % (Auto) 0.3 (0.0-0.4) % Neut % (Auto) 58.1 (45-73) % Lymph % (Auto) 29.4 (20-40) % [place] % (Auto) 8.1 (2-11) % Eos % (Auto) 3.7 (0-4) % Baso % (Auto) 0.4 (0-2) % Lymph # (Auto) 2.8 (1.2-4.9) X10*3/uL [place] # (Auto) 0.8 (0.1-1.2) X10*3/uL Eos # (Auto) 0.4 (0.0-0.4) X10*3/uL Baso # (Auto) 0.0 (0.0-0.2) X10*3/uL Abs Immat Gran (auto) 0.03 (0.00-0.03) X10*3/uL Absolute Neuts (auto) 5.5 (2.0-8.3) x10*3/uL Absolute Nucleated RBC 0.000 (0.0-0.012) X10*3/uL Nucleated RBC % (auto) 0.0 (0.0-0.2) /100WBC PT 12.0 (10.0-13.1) SEC INR 1.0 (0.9-1.1) Sodium 139 (135-145) mmol/L Potassium 3.8 (3.3-5.1) mmol/L Chloride 101 (96-108) mmol/L Carbon Dioxide 29 (22-29) mmol/L Anion Gap 13 (12-20) BUN 24 H (9-16) mg/dL Creatinine 0.94 (0.5-1.4) mg/dL Estim Creat Clear Calc 162.2 Estimated GFR > 60 Random Glucose 86 (60-115) mg/dL Calcium 9.4 (8.4-10.2) mg/dL Total Bilirubin 1.1 H (0.0-1.0) mg/dL AST 28 (5-37) U/L ALT 23 (0-40) U/L Alkaline Phosphatase 67 (39-117) U/L Total Protein 7.0 (6.5-8.0) g/dL Albumin 3.8 (3.5-5.0) g/dL COVID-19 (CHARLY) (Negative) COVID-19 Clin Com Influenza Type A (ANGELA) (Negative) Influenza Type B (ANGELA) (Negative) Influenza A & B Note 07/05/22 07/05/22 Range/Units 17:27 17:27 WBC (4.8-10.8) X10*3/uL RBC (4.60-5.80) X10*6/uL Hgb (14.0-18.0) g/dl Hct (42.0-52.0) % MCV (80.0-98.0) fL MCH (27.0-33.0) pg MCHC (31.0-36.0) g/dl RDW (11.0-16.0) % Plt Count (160-400) X10*3/uL MPV (9.4-12.4) fL Immature Gran % (Auto) (0.0-0.4) % Neut % (Auto) (45-73) % Lymph % (Auto) (20-40) % [place] % (Auto) (2-11) % Eos % (Auto) (0-4) % Baso % (Auto) (0-2) % Lymph # (Auto) (1.2-4.9) X10*3/uL [place] # (Auto) (0.1-1.2) X10*3/uL Eos # (Auto) (0.0-0.4) X10*3/uL Baso # (Auto) (0.0-0.2) X10*3/uL Abs Immat Gran (auto) (0.00-0.03) X10*3/uL Absolute Neuts (auto) (2.0-8.3) x10*3/uL Absolute Nucleated RBC (0.0-0.012) X10*3/uL Nucleated RBC % (auto) (0.0-0.2) /100WBC PT (10.0-13.1) SEC INR (0.9-1.1) Sodium (135-145) mmol/L Potassium (3.3-5.1) mmol/L Chloride (96-108) mmol/L Carbon Dioxide (22-29) mmol/L Anion Gap (12-20) BUN (9-16) mg/dL Creatinine (0.5-1.4) mg/dL Estim Creat Clear Calc Estimated GFR Random Glucose (60-115) mg/dL Calcium (8.4-10.2) mg/dL Total Bilirubin (0.0-1.0) mg/dL AST (5-37) U/L ALT (0-40) U/L Alkaline Phosphatase (39-117) U/L Total Protein (6.5-8.0) g/dL Albumin (3.5-5.0) g/dL COVID-19 (CHARLY) Negative (Negative) COVID-19 Clin Com See Note Influenza Type A (ANGELA) Negative (Negative) Influenza Type B (ANGELA) Negative (Negative) Influenza A & B Note See Note <Jesenia Ku NP - Last Filed: 07/05/22 18:19> Independent Interpretation I performed an independent interpretation of an: Plain X-Ray and Ultrasound <Jesenia Ku NP - Last Filed: 07/05/22 18:19> Interpretation: I indepedentely reviewed the chest x-ray and ultrasound and agree with the radiologist report <Jesenia Ku NP - Last Filed: 07/05/22 18:19> Radiology Impression Discussion of test interpretation with radiology: I have reviewed the radiologist's reading. <Jesenia Ku NP - Last Filed: 07/05/22 18:19> Radiologist Impression: [place] [id number] Ultrasound Report Signed Patient: Ross Navarrete MR#: [id number] : 1980 Acct:[id number] Age/Sex: 41 / M ADM Date: 07/05/22 Loc: .ED Attending Dr: Ordering Physician: Emerald Mckeon CNP Date of Service: 07/05/22 Procedure(s): US venous duplex LE RT Accession Number(s): [id number] cc: Emerald Mckeon CNP~ EXAMINATION:? US VENOUS ULTRASOUND WITH DOPPLER LOWER EXTREMITY, RIGHT CLINICAL INFORMATION:? Right lower extremity pain, swelling, redness. COMPARISON:? None TECHNIQUE: Ultrasound of the deep veins is performed from the hip to the calf with compression sonography and color and pulse Doppler assessment. Spectral analysis with color-flow imaging is performed. FINDINGS: There is normal venous compression and respiratory variation and augmented flow. The visualized common femoral vein, superficial femoral vein, profunda femoral vein, popliteal vein, and the trifurcation region shows no evidence of deep venous thrombosis. The visualized posterior tibial veins appear patent. The peroneal veins are not visualized. There is no significant popliteal fossa cyst. . If the patient's symptoms persist, followup ultrasound in 5 days 7 days might be of value to exclude proximal propagation from a non-visualized calf vein. US/US venous duplex LE RT IMPRESSION: No DVT demonstrated in the right lower extremity extending from the common femoral vein to the popliteal vein. ? Limited evaluation the calf veins. ? If the patient's symptoms persist, followup ultrasound in 5-7 days might be of value to exclude proximal propagation from a non-visualized calf vein. Launch?Image [address] [address] XRay Report Signed Patient: Ross Navarrete MR#: [id number] : 1980 Acct:[id number] Age/Sex: 41 / M ADM Date: 07/05/22 Loc: .ED Attending Dr: Ordering Physician: Emerald Mckeon CNP Date of Service: 07/05/22 Procedure(s): XR chest 2V Accession Number(s): [id number] cc: Emerald Mckeon CNP~ EXAMINATION: XR CHEST CLINICAL INFORMATION: Shortness of breath COMPARISON: Chest x-ray 03/20/2019 TECHNIQUE: 2 views of the chest were obtained. FINDINGS: The lungs are clear. No airspace consolidation, pleural effusion, or pneumothorax. The cardiomediastinal silhouette is within normal limits. No acute osseous injury. XR/XR chest 2V IMPRESSION: No acute pulmonary process. ? <Jesenia Ku NP - Last Filed: 07/05/22 18:19> Independent Historian Clinical information obtained from an independent historian. History obtained from or confirmed by: Spouse <Jesenia Ku NP - Last Filed: 07/05/22 18:19> Discharge Plan Discharge Clinical Impression: Cellulitis <Emeraldangeles Mckeon CNP - Last Filed: 07/05/22 16:57> Patient Disposition: Home, Self-Care <Emerald Mckeon CNP - Last Filed: 07/05/22 16:57> Instructions: Cellulitis (ED) <Emeraldangeles Mckeon CNP - Last Filed: 07/05/22 16:57> Additional Instructions: Your blood work is normal. Your ultrasound shows no signs of blood clot. Elevate your leg Take the antibiotics as prescribed Follow-up with primary care doctor for resolution Choi an?lisis de svetlana es normal. Choi ultrasonido no muestra signos de co?gulos de svetlana. [place] los antibi?ticos seg?n lo prescrito Seguimiento con el m?dico de atenci?n primaria para la resoluci?n <Emerald Hillarydamian Mckeon CNP - Last Filed: 07/05/22 16:57> Prescriptions: New cephalexin 500 mg capsule 500 mg PO TID Qty: 21 0RF doxycycline hyclate 100 mg tablet 100 mg PO BID Qty: 20 0RF No Action cholecalciferol (vitamin D3) 25 mcg (1,000 unit) capsule 25 mcg PO DAILY Qty: 30 5RF vitamin A palmitate 10,000 unit tablet 20,000 unit PO DAILY 14 Days Qty: 28 0RF thiamine HCl (vitamin B1) 50 mg tablet 50 mg PO DAILY Qty: 30 5RF meloxicam 15 mg tablet 15 mg PO DAILY 30 Days Qty: 30 0RF lidocaine 5 % adhesive patch,medicated 1 patch topical DAILY Qty: 15 0RF Rx Instructions: leave on most painful area for up to 12 hrs buprenorphine-naloxone [Suboxone] 8-2 mg film 10 mg sublingual TID lisinopril 2.5 mg tablet 2.5 mg PO DAILY Lantus U-100 Insulin 100 unit/mL solution 55 unit subcut QPM insulin lispro [Humalog KwikPen Insulin] 100 unit/mL insulin pen 35 unit subcut TID Trulicity 0.75 mg/0.5 mL pen injector 0.75 mg subcut QWEEK <Emerald Mckeon CNP - Last Filed: 07/05/22 16:57> Referrals: Naheed Zaman, EMPLOYMENT LEGAL ASSISTANT [Primary Care Provider] - 1 week <Emerald Mckeon CNP - Last Filed: 07/05/22 16:57> Interventions: ED Discharge Assessment Last Done: 07/05/22 18:13 <Emerald Mckeon CNP - Last Filed: 07/05/22 16:57> Discharge Date/Time: 07/05/22 18:14 <Emerald Mckeon CNP - Last Filed: 07/05/22 16:57>
[2022-07-05 16:52] VITALS: BP 128/70; PULSE 83; RESP 20; TEMP 36.6; O2SAT 99; BMI 66.9
[2022-07-05 17:34] LABS: MANUAL DIFF FLAG NO
[2022-07-05 17:39] LABS: Basophils Percent Auto 0.4 % (0-2); Eosinophils Absolute Auto 0.4 X10*3/uL (0.0-0.4); Eosinophils Percent Auto 3.7 % (0-4); Hematocrit 37.5 % (42.0-52.0); Hemoglobin 12.6 g/dl (14.0-18.0); Imm Gran Abs Auto 0.03 X10*3/uL (0.00-0.03); Imm Gran Pct Auto 0.3 % (0.0-0.4); Lymphocytes Absolute Auto 2.8 X10*3/uL (1.2-4.9); Lymphocytes Percent Auto 29.4 % (20-40); Mean Corpuscular HGB Conc 33.6 g/dl (31.0-36.0); Mean Corpuscular Hemoglobin 27.7 pg (27.0-33.0); Mean Corpuscular Volume 82.4 fL (80.0-98.0); Mean Platelet Volume 11.8 fL (9.4-12.4); Monocytes Absolute Auto 0.8 X10*3/uL (0.1-1.2); Monocytes Percent Auto 8.1 % (2-11); Neutrophils Absolute Auto 5.5 x10*3/uL (2.0-8.3); Neutrophils Percent Auto 58.1 % (45-73); Platelet Count 150 X10*3/uL (160-400); Red Blood Count 4.55 X10*6/uL (4.60-5.80); Red Cell Distribution Width 13.6 % (11.0-16.0); White Blood Count 9.4 X10*3/uL (4.8-10.8)
[2022-07-05 17:49] LABS: Alanine Aminotransferase 23 U/L (0-40); Albumin Level 3.8 g/dL (3.5-5.0); Alkaline Phosphatase 67 U/L (39-117); Anion Gap 13 (12-20); Aspartate Amino Transferase 28 U/L (5-37); Bilirubin Total 1.1 mg/dL (0.0-1.0); Blood Urea Nitrogen 24 mg/dL (9-16); Calcium 9.4 mg/dL (8.4-10.2); Carbon Dioxide 29 mmol/L (22-29); Chloride 101 mmol/L (96-108); Creatinine Clr Calc Pharmacy 162.2; Estimated Glomerular Filt Rate > 60; Glucose Random 86 mg/dL (60-115); Potassium 3.8 mmol/L (3.3-5.1); Sodium 139 mmol/L (135-145)
[2022-07-05 17:53] VITALS: BP 141/71; PULSE 88; RESP 16; O2SAT 97
[2022-07-05 17:56] LABS: COVID-19 Test Negative (Negative); IDNOW Serial# 9DB6401D; IDNOW Serial# BCCEAD1C; Influenza A Negative (Negative); Influenza B2 Negative (Negative)
== END 2022-07-05 18:14 | disposition home or self-care (01) ==
PROVIDERS: Nurse Practitioner Family; Emergency Provider Student in an Organized Health Care Education/Training Program; PCP Nurse Practitioner Primary Care
DX: R60.0 Localized edema (principal); R10.31 Right lower quadrant pain; I10 Essential (primary) hypertension; Z20.822 Contact with and (suspected) exposure to COVID-19; Z20.828 Contact with and (suspected) exposure to other viral communicable diseases; Z79.899 Other long term (current) drug therapy
CPT/HCPCS: 71046; 80053; 85025; 85610; 87502; 87635; 93971; 99282; 99283; 99284

== ENCOUNTER → 2022-07-27 13:01 | Outpatient (BNVA) | payer MEDICAID, SELFPAY | PROVIDERS: PCP Nurse Practitioner Primary Care; Visit Provider Anesthesiology | DX: M19.012 Primary osteoarthritis, left shoulder (principal); E66.01 Morbid (severe) obesity due to excess calories; Z68.44 Body mass index [BMI] 60.0-69.9, adult | CPT/HCPCS: 99212 ==

== ENCOUNTER → 2022-08-09 14:31 | Outpatient (BNV) | payer MEDICAID, SELFPAY | PROVIDERS: PCP Nurse Practitioner Primary Care; Visit Provider Internal Medicine Medical Oncology | DX: D69.6 Thrombocytopenia, unspecified (principal); D64.9 Anemia, unspecified | CPT/HCPCS: 99204; 99213 ==

== ENCOUNTER 2022-08-09 15:29 | Observation (INO) | payer MEDICAID, SELFPAY ==
--- NOTE | ~2022-08-09 | US_ITS ---
EXAMINATION: US VENOUS ULTRASOUND WITH DOPPLER LOWER EXTREMITY, LEFT CLINICAL INFORMATION: Unilateral edema COMPARISON: None TECHNIQUE: Ultrasound of the deep veins is performed from the hip to the calf with compression sonography and color and pulse Doppler assessment. Spectral analysis with color-flow imaging is performed. FINDINGS: There is normal venous compression and respiratory variation and augmented flow. The visualized common femoral vein, superficial femoral vein, profunda femoral vein, popliteal vein, and the trifurcation region shows no evidence of deep venous thrombosis. There is no significant popliteal fossa cyst. If the patient's symptoms persist, followup ultrasound in 5 days 7 days might be of value to exclude proximal propagation from a non-visualized calf vein. US/US venous duplex LE LT IMPRESSION: No DVT demonstrated in the left lower extremity.
[2022-08-09 16:15] VITALS: BP 127/69; PULSE 82; RESP 18; TEMP 36.7; O2SAT 97; BMI 72.6
--- NOTE | 2022-08-09 16:17 | ED.LOWEXIN ---
HPI - Extremity Injury (Lower) General Chief Complaint: General Medical <ABELARDO Varner - Last Filed: 08/09/22 16:23> Stated Complaint: Cellulitis? Sent by Dr. Mancia <ABELARDO Varner - Last Filed: 08/09/22 16:23> Time Seen by Provider: 08/09/22 18:10 <ABELARDO Varner - Last Filed: 08/09/22 16:23> Source: patient <ABELARDO Brar - Last Filed: 08/09/22 19:52> Mode of arrival: ambulatory <ABELARDO Brar Last Filed: 08/09/22 19:52> Limitations: no limitations <ABELARDO Brar Last Filed: 08/09/22 19:52> History of Present Illness HPI Narrative: 41-year-old male history of migraines, BETSY, hypertension, diabetes insulin dependent, obesity presenting for the evaluation of left lower extremity cellulitis times 3-4 months worsening over the past few days despite recent antibiotic treatment, patient tells me he finished his last round of antibiotics about a week ago, he does not recall the name of the antibiotics. He tells me the area has become more swollen, red and warm. He tells me does not seem to be going away. Tells me that his left lower extremity appears more swollen than his right. No history of DVT or PE. Not on blood thinners. Denies chest pain, shortness of breath, nausea, vomiting, headache, vision changes, dizziness or weakness. <ABELARDO Brar - Last Filed: 08/09/22 19:52> Related Data Home Medications: Home Medications Medication Instructions Recorded Confirmed dulaglutide 0.75 mg/0.5 mL 0.75 mg subcut MO 07/26/21 08/09/22 subcutaneous pen injector (Trulicity) insulin glargine 100 unit/mL 55 unit subcut BEDTIME 07/26/21 08/09/22 subcutaneous solution (Lantus U-100 Insulin) insulin lispro 100 unit/mL 35 unit subcut TID 07/26/21 08/09/22 subcutaneous pen (Humalog KwikPen (U-100) Insulin) lisinopril 2.5 mg tablet 2.5 mg PO DAILY 07/26/21 08/09/22 buprenorphine 8 mg-naloxone 2 mg 1 film sublingual TID 02/09/22 08/09/22 sublingual film (Suboxone) atorvastatin 10 mg tablet 1 tab PO DAILY 08/09/22 08/09/22 Previous Rx's Medication Instructions Recorded cholecalciferol (vitamin D3) 25 25 mcg PO DAILY #30 caps 12/09/21 mcg (1,000 unit) capsule meloxicam 15 mg tablet 15 mg PO DAILY 30 days #30 tabs 03/16/22 <ABELARDO Varner - Last Filed: 08/09/22 16:23> Allergies/Adverse Reactions: Allergies Allergy/AdvReac Type Severity Reaction Status Date / Time seafood Allergy Unknown Swelling Verified 07/27/22 13:05 <ABELARDO Varner Last Filed: 08/09/22 16:23> Review of Systems Review of Systems: Constitutional : No Weight loss, No Fever, No Chills, No Fatigue, No Malaise ENT/Mouth : No sore throat, No Rhinorrhea Eyes: No Eye Pain, No Swelling, No Redness Cardiovascular : No Chest Pain, No SOB, No Dyspnea on Exertion, No Orthopnea, No Edema, No Palpitations Respiratory : No Cough, No Sputum, No Wheezing Gastrointestinal : No Nausea, No Vomiting, No Diarrhea, No Constipation, No abdominal Pain, No Hematochezia, No Melena Genitourinary : No Dysuria, No Urinary Frequency, No Hematuria, Musculoskeletal : No joint pain, No Myalgias, No Joint Swelling Skin : No Skin Lesions, No rash, + redness Neuro : No Weakness, No Numbness, No Dizziness, No Headache Psych : No Anxiety/Panic, No Depression All other systems reviewed and are negative <ABELARDO Brar Last Filed: 08/09/22 19:52> Yes all other systems are reviewed and are negative <ABELARDO Brar Last Filed: 08/09/22 19:52> [facility] Past Medical History Attestation statement: The following information was validated with the patient. <ABELARDO Brar Last Filed: 08/09/22 19:52> Source: old records reviewed and nursing notes reviewed <ABELARDO Brar Last Filed: 08/09/22 19:52> Medical History: Medical History Carpal tunnel syndrome Diabetes Shoulder dislocation Sleep apnea <ABELARDO Varner - Last Filed: 08/09/22 16:23> Surgical History: Surgical History Hx of appendectomy <ABELARDO Varner - Last Filed: 08/09/22 16:23> Family History Family History: Family History Mother No problems noted. Brother No problems noted. Daughter No problems noted. Daughter No problems noted. Daughter No problems noted. Son No problems noted. Son No problems noted. 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 <ABELARDO Varner - Last Filed: 08/09/22 16:23> Physical Exam Vital Signs: Vital Signs: Last Vital Signs Temp 98.0 F 08/09/22 16:15 Pulse 82 08/09/22 16:15 Resp 18 08/09/22 16:15 BP 127/69 08/09/22 16:15 Pulse Ox 97 08/09/22 16:15 O2 Del Method 08/09/22 16:15 BMI result Body Mass Index 72.6 <ABELARDO Varner - Last Filed: 08/09/22 16:23> Vital Signs: Last Vital Signs Temp 98.0 F 08/09/22 16:15 Pulse 82 08/09/22 16:15 Resp 18 08/09/22 16:15 BP 127/69 08/09/22 16:15 Pulse Ox 97 08/09/22 16:15 O2 Del Method 08/09/22 16:15 BMI result Body Mass Index 72.6 vss <ABELARDO Brar - Last Filed: 08/09/22 19:52> Appearance: Alert.? Oriented X3.? No acute distress.? Head: Normocephalic, atraumatic, no step-offs or deformities Eyes: Pupils equal, round and reactive to light.? Neck: Normal inspection.? Neck supple.? CVS: Normal heart rate and rhythm.? Pulses normal.? Respiratory: No respiratory distress.? Breath sounds normal.? Abdomen: Soft and nontender.? Skin: Skin warm and dry.? Normal skin color.? Normal skin turgor.?+ erythema & warmth to LLE around calf region. Neurovascular intact distally. Not circumferential. Extremities:3+ nonpitting edema to left lower extremity, 2+ nonpitting edema to the right. From the knee down..? No calf ttp. 5/5 strength to bilateral upper and lower extremities Back: No midline tenderness, no C-spine tenderness, full range of motion, no CVA tenderness bilaterally Neuro: Oriented X 3.? No motor deficit.? No sensory deficit. CN 2-12 intact <ABELARDO Brar - Last Filed: 08/09/22 19:52> Course Course Course Narrative: RMShanda-- 41-year-old male past medical history significant for hypertension, obstructive sleep apnea, obesity, diabetes, sent in by Dr. Mancia for left lower extremity cellulitis, failed outpatient p.o. antibiotics of Keflex/doxycycline. Patient reports symptoms have been worsening. Denies fever. Had labs drawn earlier, additional labs added in triage including lactic/blood cultures. Had negative venous duplex ultrasound on 07/05. Low suspicion for severe sepsis at this time. Left lower extremity notable for erythema & warmth. Neurovascular intact distally. Not circumferential. <ABELARDO Varner - Last Filed: 08/09/22 16:23> Reevaluation(s) Reevaluation #1: CBC appears to be around patient's baseline with a normocytic anemia. Patient with chronic thrombocytopenia. Chemistry unremarkable. No acute electrolyte abnormalities requiring intervention. Patient's total bilirubin 1.7 however no abdominal tenderness to palpation. And at baseline patient's bilirubin is elevated. BNP within normal limits. Normal lactic acid. Patient receiving Zosyn for cellulitis. Ultrasound of left lower extremity with no DVT. I did discuss this case with hospitalist as patient did fail p.o. treatment with antibiotics is now presenting for worsening cellulitis left lower extremity will admit patient to the hospital for IV antibiotics. <ABELARDO Brar - Last Filed: 08/09/22 19:52> Time: 19:51 <ABELARDO Brar - Last Filed: 08/09/22 19:52> Medical Decision Making Medical Decision Making [facility] Narrative: 1856 41-year-old male presents for evaluation of cellulitis to left lower extremity the past months worsening the past failed p.o. treatment. Physical examination with cellulitis of the left lower extremity around the calf. 3+ nonpitting edema to left lower extremity, 2+ nonpitting edema to the right. From the knee down. Likely cellulitis. Unlikely erysipelas, no signs of threatened joint/limb. I do not suspect arterial or venous occlusion. No signs of necrotizing fasciitis Plan labs, imaging, blood cultures, lactic acid. Will give Zosyn. <ABELARDO Brar - Last Filed: 08/09/22 19:52> Differential Diagnosis Differential Diagnoses: The differential diagnosis associated with the presentation includes <ABELARDO Brar - Last Filed: 08/09/22 19:52> Likely cellulitis. Unlikely erysipelas, no signs of threatened joint/ limb. I do not suspect arterial or venous occlusion. No signs of necrotizing fasciitis <ABELARDO Brar - Last Filed: 08/09/22 19:52> Admission/Observation Consideration of admission/observation: Escalation of care including admission/observation considered <ABELARDO Brar - Last Filed: 08/09/22 19:52> Lab Data [facility] Lab Attestation statement: I reviewed the patient's lab results. <ABELARDO Brar - Last Filed: 08/09/22 19:52> Labs: Lab Results 08/09/22 08/09/22 Range/Units 18:26 18:26 Lactic Acid 1.1 (0.5-2.0) mmol/L B-Natriuretic Peptide 22 (<100) pg/mL <ABELARDO Varner - Last Filed: 08/09/22 16:23> Lab Results 08/09/22 08/09/22 Range/Units 18:26 18:26 Lactic Acid 1.1 (0.5-2.0) mmol/L B-Natriuretic Peptide 22 (<100) pg/mL <ABELARDO Brar - Last Filed: 08/09/22 19:52> Core Measures AMI core measures followed: Yes <ABELARDO Brar - Last Filed: 08/09/22 19:52> Measure exclusions: not indicated <ABELARDO Brar - Last Filed: 08/09/22 19:52> Critical Care Time Critical Care Time Critical Care Time: No <ABELARDO Brar - Last Filed: 08/09/22 19:52> Discharge Plan Discharge Clinical Impression: Cellulitis <ABELARDO Varner - Last Filed: 08/09/22 16:23> Patient Disposition: Admitted As Inpatient <ABELARDO Varner - Last Filed: 08/09/22 16:23> Prescriptions: No Action cholecalciferol (vitamin D3) 25 mcg (1,000 unit) capsule 25 mcg PO DAILY Qty: 30 5RF meloxicam 15 mg tablet 15 mg PO DAILY 30 Days Qty: 30 0RF atorvastatin 10 mg tablet 1 tab PO DAILY buprenorphine-naloxone [Suboxone] 8-2 mg film 1 film sublingual TID lisinopril 2.5 mg tablet 2.5 mg PO DAILY Lantus U-100 Insulin 100 unit/mL solution 55 unit subcut BEDTIME insulin lispro [Humalog KwikPen Insulin] 100 unit/mL insulin pen 35 unit subcut TID Trulicity 0.75 mg/0.5 mL pen injector 0.75 mg subcut MO <ABELARDO Varner Last Filed: 08/09/22 16:23>
--- NOTE | 2022-08-09 18:40 | PC.NURSE ---
ultra sound at bedside
[2022-08-09 18:46] LABS: Lactic Acid 1.1 mmol/L (0.5-2.0)
[2022-08-09 18:55] LABS: B Type Natriuretic Peptide 22 pg/mL (<100)
[2022-08-09] MEDS: Piperacillin Sodium/Tazobactam 3.375 GM in 0.9 % Sodium Chloride 50 ML IV (20:10)
--- NOTE | 2022-08-09 20:13 | PM.IMHP ---
History of Present Illness Date of Service: 08/09/22 Attending physician on admission: Tasha Cullen Chief Complaint: LLE redness/swelling 41-year-old male with history of uncontrolled type 1 diabetes, hypertension, chronic thrombocytopenia, BETSY compliant with CPAP, carpal tunnel syndrome, and morbid obesity for evaluation of left lower extremity redness and swelling that has been worsening over the last 3-4 months. He has been on multiple courses of oral antibiotics outpatient, most recently he completed amoxicillin and doxycycline 1 week ago. Denies hx DVT. No fevers, chills, nausea, vomiting, abdominal pain, urinary symptoms, lightheadedness, palpitations, chest pain, shortness of breath. On arrival VSS. No leukocytosis. Stable normocytic anemia with H/H 11.9/36.0%. Renal function normal, electrolyte levels normal. Glucose 152. CRP 4.60. ESR 49. Venous duplex LLE negative for DVT. Patient treated empirically in the ED with Zosyn. Review of Systems Review of Systems: Yes all other systems are reviewed and are negative [facility] Medical History (Updated 08/09/22 @ 20:39 by ABELARDO Blackburn) Carpal tunnel syndrome Diabetes HTN (hypertension), benign Hx of migraines Morbid obesity BETSY on CPAP Shoulder dislocation Sleep apnea Thrombocytopenia Family History Mother No problems noted. Brother No problems noted. Daughter No problems noted. Daughter No problems noted. Daughter No problems noted. Son No problems noted. Son No problems noted. 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 Meds Allergies Allergy/AdvReac Type Severity Reaction Status Date / Time seafood Allergy Unknown Swelling Verified 07/27/22 13:05 Active Medications: Current Medications Acetaminophen (Acetaminophen 325 Mg Tablet) 650 mg PO Q6H PRN PRN Reason: Pain, Mild (Pain Scale 1-3) Atorvastatin Calcium (Atorvastatin Calcium 10 Mg Tablet) 10 mg PO DAILY [facility] Buprenorphine/Naloxone (Buprenorphine/Naloxone 8/2 Mg Film) 1 film SUBLINGUAL TID [facility] Enoxaparin Sodium (Enoxaparin Sodium 40 Mg/0.4 Ml Syringe) 40 mg SUBCUT Q24H [facility] Glucose (Glucose Gel 15 Gm Gel..Gram.) 15 gm PO Q15M PRN; Protocol PRN Reason: per Hypoglycemia Standing Ord. Cefepime HCl 2 gm/ Sodium (Chloride) 50 mls @ 100 mls/hr IV Q8H [facility] Dextrose (D10) 250 mls @ 750 mls/hr IV Q15M PRN; Protocol PRN Reason: per Hypoglycemia Standing Ord. Insulin Glargine (Insulin Glargine,Hum.Rec.Anlog 100 Unit/Ml 10 Ml Vial) 42 unit SUBCUT BEDTIME [facility] Insulin Human Lispro (Insulin Lispro 100 Unit/Ml 3 Ml Vial) 0 unit SUBCUT QIDACHS [facility]; Protocol Lisinopril (Lisinopril 2.5 Mg Tablet) 2.5 mg PO DAILY [facility]; Protocol Non-Formulary Medication (Meloxicam) 15 mg PO DAILY [facility] Ondansetron HCl (Ondansetron Hcl 4 Mg/2 Ml Vial) 4 mg IVPUSH Q8H PRN PRN Reason: Nausea and Vomiting Pharmacy Consult (Consult Rx Perform Med Rec) 1 each MISCELLANE ONCE PRN PRN Reason: Consult order Pharmacy Consult (Consult Rx Vancomycin Dosing) 1 each MISCELLANE DAILY PRN PRN Reason: Consult order Sodium Chloride (0.9 % Sodium Chloride Flush 3 Ml Syringe) 3 ml IVFLUSH QSHIFT [facility] Vitamin D (Cholecalciferol (Vitamin D3) 25 Mcg Tablet) 25 mcg PO DAILY [facility] Home Medications Medication Instructions Recorded Confirmed Last Taken Type dulaglutide 0.75 mg/0.5 mL 0.75 mg subcut MO 07/26/21 08/09/22 08/08/22 History subcutaneous pen injector (Trulicity) insulin glargine 100 unit/mL 55 unit subcut BEDTIME 07/26/21 08/09/22 08/08/22 History subcutaneous solution (Lantus U-100 Insulin) insulin lispro 100 unit/mL 35 unit subcut TID 07/26/21 08/09/22 08/09/22 History subcutaneous pen (Humalog KwikPen (U-100) Insulin) lisinopril 2.5 mg tablet 2.5 mg PO DAILY 07/26/21 08/09/22 08/09/22 History buprenorphine 8 mg-naloxone 2 mg 1 film sublingual TID 02/09/22 08/09/22 08/09/22 History sublingual film (Suboxone) atorvastatin 10 mg tablet 1 tab PO DAILY 08/09/22 08/09/22 Unknown History Physical Exam Vital Signs and Narrative: Vital Signs: Last Vital Signs Temp 98.0 F 08/09/22 16:15 Pulse 82 08/09/22 16:15 Resp 18 08/09/22 16:15 BP 127/69 08/09/22 16:15 Pulse Ox 97 08/09/22 16:15 O2 Del Method 08/09/22 16:15 BMI result Body Mass Index 72.6 Constitutional - Awake and Alert, No apparent distress Eyes - PERRLA, EOMI Cardiovascular - S1S2, RRR, 2+ edema BLE Respiratory - Normal lung expansion, Normal respiratory effort, No respiratory distress, CTA bilaterally Gastrointestinal - NT / ND; +BS; No rebound or guarding - No CVA tenderness Extremities - no calf tenderness bilaterally Skin - Warm/Dry. Faint erythema BLE L>R without excess warmth Neurological - Alert & oriented x3, CN II-XII in tact, 5/5 strength BUE and BLE Psychological - Appropriate affect Results Labs Labs: Laboratory Results - last 24 hr 08/09/22 08/09/22 18:26 18:26 Lactic Acid 1.1 B-Natriuretic Peptide 22 Imaging Radiologist's Impressions: Impressions Venous Duplex 08/09/22 18:44 IMPRESSION: No DVT demonstrated in the left lower extremity. Assessment and Plan (1) Cellulitis: Status: Acute Plan 41-year-old male with history of uncontrolled type 1 diabetes, hypertension, chronic thrombocytopenia, BETSY compliant with CPAP, carpal tunnel syndrome, and morbid obesity to be observed for LLE cellulitis having failed outpt antibiotics. # acute cellulitis of the LLE-with background bilateral venous stasis dermatitis -has failed multiple rounds of oral antibiotics including amoxicillin and doxycycline completed last week -feels redness and swelling has been worsening over the last few months -venous duplex negative for DVT -no leukocytosis but ESR and CRP are elevated -IV vancomycin and cefepime # uncontrolled type 1 diabetes -hemoglobin A1c pending -dose adjusted basal insulin -Humalog on sliding scale -diabetic diet -POC glucose # hypertension-reasonably controlled -continue p.o. antihypertensives # BETSY -continue CPAP at bedtime # morbid obesity -BMI greater than 72 -weight loss efforts encouraged # chronic normocytic anemia-likely related to chronic disease -follows with hematology who suspects related to underlying infection/cellulitis # chronic thrombocytopenia -mild with platelets of 136, consistent with baseline DVT prophylaxis-Lovenox Full code Time Spent With Patient Time: Total time managing care of this patient today ____ minutes. Quality Stroke Does the patient have a stroke diagnosis?: No VTE Prior VTE?: No VTE Risk Level:: Medical - moderate - high VTE Device Contraindication: Treatment Not Indicated VTE Drug Contraindication: N/A - Med Ordered
[2022-08-09] MEDS: Enoxaparin Sodium 40 MG/0.4 ML SYRINGE SUBCUT (20:23)
[2022-08-09] MEDS: Buprenorphine/Naloxone 8/2 mg FILM 1 FILM SUBLINGUAL (20:24)
[2022-08-09] MEDS: cefEPime HCl 2 GM in 0.9 % Sodium Chloride 50 ML IV (20:26)
[2022-08-09 20:31] LABS: Glucose, Whole Blood 114 mg/dL (60-115)
[2022-08-09 21:01] LABS: Creatinine Clr Calc Pharmacy 203.1; Estimated Glomerular Filt Rate > 60
[2022-08-09] MEDS: Insulin Glargine,Hum.rec.anlog 100 UNIT/ML 10 ML VIAL 42 UNIT SUBCUT (22:02)
--- NOTE | 2022-08-09 22:17 | PHA.PROG ---
Admission Date/Time: August 09, 2022 20:04 Indication: Skin and skin structure Weight in k.117 kg Adjusted body weight in K.9 [place] body weight in K.8 Obesity Dosing Indication % IBW: OBESE Serum Creatinine - Last 168 Hours 08/09/22 20:44 Creatinine 0.82 Estimated CrCl and GFR - Last 168 Hours 08/09/22 20:44 Estim Creat Clear Calc 203.1 Estimated GFR > 60 Vancomycin Loading Dose: 2000 x 1 Current Vancomycin Dosing Regimen: 1250 mg Q12H Vancomycin Monitoring using AUC goal of 400 - 600 range with trough as surrogate marker: 555 mg/L/hr Date and Time for next Vancomycin Level to be drawn: 08/11 @0800 Pharmacist Comments on Vancomycin Plan: Used obese model. proper load. will monitor renal daily Vancomycin dosing will take advantage of [employer] as a clinical decision support tool that uses Bayesian modeling to calculate individual patient's pharmacokinetic parameters and forecast the patient's drug concentration time course with the target goal AUC 24 range of 400 - 600 mg/L/hr.
--- NOTE | 2022-08-09 22:34 | MHC.CM.PN ---
[place] 08/09. CM met with patient assigned to observation with bed assignment pending. Pt lives with . Uses CPAP and DM supplies. No services. Independent. Pf[employer] x2. HCP at home. HCP/ Kim Pal ([phone]). D/C plan: Home without services. Family will transport. CM to follow for discharge needs.
[2022-08-09 23:36] VITALS: PULSE 84; RESP 18; O2SAT 96
[2022-08-10 00:06] VITALS: BP 156/81; PULSE 70; RESP 20; O2SAT 97
[2022-08-10 00:42] LABS: COVID-19 Test Negative (Negative); IDNOW Serial# BCCEAD1C
--- NOTE | 2022-08-10 04:00 | PC.NURSE ---
Pt A&Ox4, reports itching and pain to touch to BLL. bilateral leg redness and swelling noted. IV line placed, meds given as documented. Pt ambulatory independently to BR with steady gait. Respiratory therapist set Pt up with c-pap machine.
[2022-08-10 05:03] VITALS: PULSE 76; RESP 20; O2SAT 96
[2022-08-10 06:20] LABS: MANUAL DIFF FLAG NO
[2022-08-10 06:28] LABS: Basophils Percent Auto 0.5 % (0-2); Eosinophils Absolute Auto 0.5 X10*3/uL (0.0-0.4); Eosinophils Percent Auto 7.6 % (0-4); Hematocrit 35.6 % (42.0-52.0); Hemoglobin 11.5 g/dl (14.0-18.0); Imm Gran Abs Auto 0.03 X10*3/uL (0.00-0.03); Imm Gran Pct Auto 0.5 % (0.0-0.4); Lymphocytes Absolute Auto 1.2 X10*3/uL (1.2-4.9); Lymphocytes Percent Auto 18.3 % (20-40); Mean Corpuscular HGB Conc 32.3 g/dl (31.0-36.0); Mean Corpuscular Hemoglobin 27.4 pg (27.0-33.0); Mean Platelet Volume 12.6 fL (9.4-12.4); Monocytes Absolute Auto 0.6 X10*3/uL (0.1-1.2); Monocytes Percent Auto 8.4 % (2-11); Neutrophils Absolute Auto 4.2 x10*3/uL (2.0-8.3); Neutrophils Percent Auto 64.7 % (45-73); Platelet Count 134 X10*3/uL (160-400); Red Blood Count 4.19 X10*6/uL (4.60-5.80); Red Cell Distribution Width 13.8 % (11.0-16.0); White Blood Count 6.6 X10*3/uL (4.8-10.8)
[2022-08-10 06:47] LABS: Anion Gap 13 (12-20); Blood Urea Nitrogen 21 mg/dL (9-16); Calcium 8.6 mg/dL (8.4-10.2); Carbon Dioxide 27 mmol/L (22-29); Chloride 103 mmol/L (96-108); Creatinine Clr Calc Pharmacy 195.9; Estimated Glomerular Filt Rate > 60; Glucose Random 152 mg/dL (60-115); Potassium 4.7 mmol/L (3.3-5.1); Sodium 138 mmol/L (135-145)
[2022-08-10 07:05] VITALS: BP 127/72; PULSE 70; RESP 18; O2SAT 97
[2022-08-10 07:13] LABS: Glucose, Whole Blood 144 mg/dL (60-115)
--- NOTE | 2022-08-10 07:21 | HE.PHANOTE ---
Vancomycin Dosing renal function stable. continue current regimen vanco 1250 mg Q12H. level scheduled for 08/11 @ 0800. Ozzie MullenD
[2022-08-10] MEDS: Cholecalciferol (Vitamin D3) 25 MCG TABLET PO (08:20)
[2022-08-10] MEDS: Atorvastatin Calcium 10 MG TABLET PO (08:20)
[2022-08-10] MEDS: lisinopriL 2.5 MG TABLET PO (08:22)
[2022-08-10] MEDS: Buprenorphine/Naloxone 8/2 mg FILM 1 FILM SUBLINGUAL (08:23)
[2022-08-10] MEDS: 0.9 % Sodium Chloride Flush 3 ML SYRINGE IVFLUSH (08:25)
[2022-08-10] MEDS: vancomycin HCL 1,250 MG in 0.9 % Sodium Chloride 250 ML 166.67 MG IV (10:25)
--- NOTE | 2022-08-10 10:27 | PC.NURSE ---
patient a&ox3, ble redness/warm to touch, pt has + csm/pulses to BLE, lungs clear/diminished throughout- wears cpap at night for león, c/o 5/10 pain in BLE only when moving around in the bed. iv abx running per order, recent vitals stable, call qiu within reach, will continue to monitor
[2022-08-10 11:29] LABS: Glucose, Whole Blood 112 mg/dL (60-115)
--- NOTE | 2022-08-10 11:50 | PM.DS ---
DS: Providers Provider Date of Service: 08/10/22 Date of admission: 08/09/22 20:04 Primary care physician: Naheed Zaman NP DS: Diagnosis Discharge Diagnosis (1) Cellulitis: Status: Acute DS: Summary Hospital Course Hospital Course: from initial hpi: Chief Complaint: LLE redness/swelling 41-year-old male with history of uncontrolled type 1 diabetes, hypertension, chronic thrombocytopenia, BETSY compliant with CPAP, carpal tunnel syndrome, and morbid obesity for evaluation of left lower extremity redness and swelling that has been worsening over the last 3-4 months.? He has been on multiple courses of oral antibiotics outpatient, most recently he completed amoxicillin and doxycycline 1 week ago. Denies hx DVT.? No fevers, chills, nausea, vomiting, abdominal pain, urinary symptoms, lightheadedness, palpitations, chest pain, shortness of breath.? On arrival VSS.? No leukocytosis.? Stable normocytic anemia with H/H 11.9/36.0%.? Renal function normal, electrolyte levels normal.? Glucose 152.? CRP 4.60.? ESR 49.? Venous duplex LLE negative for DVT.? Patient treated empirically in the ED with Zosyn. hospital course: Patient was admitted for lower extremity erythema concern for cellulitis. Patient's erythema appears to be bilateral, associated with his morbid obesity, has no fevers or leukocytosis, does not appear toxic. ertyhema bilateral and fairly symmetric, And has just completed 1 week of amoxicillin doxycycline. Findings most consistent with acute on chronic stasis dermatitis. Doubt superimposed bacterial cellulitis at this time. Will discontinue antibiotics, recommend compression and weight loss. The diabetes was continue insulin. For hypertension continue on lisinopril. For BETSY continue on CPAP. For morbid obesity weight loss recommended. Chronic normocytic anemia follows with Hematology as outpatient. Patient will be discharged home. Time Spent with Patient Time attestation: Total time managing care of this patient today ____ minutes. Discharge coordination time: Greater than 30 minutes Quality: Safe Use of Opioids Does Pt have an Active Cancer Diagnosis on the Problem List?: No Quality: Stroke Does the patient have a stroke diagnosis?: No Physical Exam Vital Signs: Vital Signs: Last Vital Signs Temp 98.0 F 08/09/22 16:15 Pulse 70 08/10/22 07:05 Resp 18 08/10/22 07:05 BP 127/72 08/10/22 07:05 Pulse Ox 97 08/10/22 07:05 O2 Del Method 08/10/22 07:05 BMI result Body Mass Index 72.6 DS: Data Data Completed and Pending Labs on day of discharge: Laboratory Results - last 24 hr 08/09/22 08/09/22 08/09/22 18:26 18:26 20:28 WBC RBC Hgb Hct MCV MCH MCHC RDW Plt Count MPV Immature Gran % (Auto) Neut % (Auto) Lymph % (Auto) Boundary % (Auto) Eos % (Auto) Baso % (Auto) Lymph # (Auto) Boundary # (Auto) Eos # (Auto) Baso # (Auto) Abs Immat Gran (auto) Absolute Neuts (auto) Absolute Nucleated RBC Nucleated RBC % (auto) Sodium Potassium Chloride Carbon Dioxide Anion Gap BUN Creatinine Estim Creat Clear Calc Estimated GFR POC Glucose 114 Random Glucose Lactic Acid 1.1 Calcium B-Natriuretic Peptide 22 COVID-19 (CHARLY) COVID-[employer] 08/09/22 08/10/22 08/10/22 20:44 00:17 05:46 WBC RBC Hgb Hct MCV MCH MCHC RDW Plt Count MPV Immature Gran % (Auto) Neut % (Auto) Lymph % (Auto) Boundary % (Auto) Eos % (Auto) Baso % (Auto) Lymph # (Auto) Boundary # (Auto) Eos # (Auto) Baso # (Auto) Abs Immat Gran (auto) Absolute Neuts (auto) Absolute Nucleated RBC Nucleated RBC % (auto) Sodium 138 Potassium 4.7 D Chloride 103 Carbon Dioxide 27 Anion Gap 13 BUN 21 H Creatinine 0.82 0.85 Estim Creat Clear Calc 203.1 195.9 Estimated GFR > 60 > 60 POC Glucose Random Glucose 152 H Lactic Acid Calcium 8.6 B-Natriuretic Peptide COVID-19 (CHARLY) Negative COVID-19 [employer] See Note 08/10/22 08/10/22 08/10/22 05:46 07:08 11:26 WBC 6.6 RBC 4.19 L Hgb 11.5 L Hct 35.6 L MCV 85.0 MCH 27.4 MCHC 32.3 RDW 13.8 Plt Count 134 L MPV 12.6 H Immature Gran % (Auto) 0.5 H Neut % (Auto) 64.7 Lymph % (Auto) 18.3 L Boundary % (Auto) 8.4 Eos % (Auto) 7.6 H Baso % (Auto) 0.5 Lymph # (Auto) 1.2 Boundary # (Auto) 0.6 Eos # (Auto) 0.5 H Baso # (Auto) 0.0 Abs Immat Gran (auto) 0.03 Absolute Neuts (auto) 4.2 Absolute Nucleated RBC 0.000 Nucleated RBC % (auto) 0.0 Sodium Potassium Chloride Carbon Dioxide Anion Gap BUN Creatinine Estim Creat Clear Calc Estimated GFR POC Glucose 144 H 112 Random Glucose Lactic Acid Calcium B-Natriuretic Peptide COVID-19 (CHARLY) COVID-19 Clin Com Discharge Plan Discharge Anticipated Discharge Date/Time: 08/10/22 11:46 Patient Disposition: Home, Self-Care Discharge Diagnosis: stasis dermatitis Referrals: Naheed Zaman, [employer] [Primary Care Provider] - 1 Week Discharge Medications: Continued cholecalciferol (vitamin D3) 25 mcg (1,000 unit) capsule 25 mcg PO DAILY Qty: 30 5RF meloxicam 15 mg tablet 15 mg PO DAILY 30 Days Qty: 30 0RF atorvastatin 10 mg tablet 1 tab PO DAILY buprenorphine-naloxone [Suboxone] 8-2 mg film 1 film sublingual TID lisinopril 2.5 mg tablet 2.5 mg PO DAILY Lantus U-100 Insulin 100 unit/mL solution 55 unit subcut BEDTIME insulin lispro [Humalog KwikPen Insulin] 100 unit/mL insulin pen 35 unit subcut TID Trulicity 0.75 mg/0.5 mL pen injector 0.75 mg subcut MO Discharge Orders: Discharge Order (Routine); Ordered 08/10/22 Ordered By: Garcia Dawson Diet: Advance to usual diet Activity on Discharge: As tolerated Stand Alone Forms: Patient Portal Discharge page Care Plan Goals: recovery Health Concerns: stasis dermatitis, obesity Plan of Treatment: norma wraps/compression socks, weight loss Assessment: see above
--- NOTE | 2022-08-10 12:28 | MHC.CM.PN ---
Received notification patient will be discharged home without services. Patient will arrange discharge.
== END 2022-08-10 12:51 | disposition home or self-care (01) ==
LOC: HO.ED 19:52 → HO.EDOVER 20:19
PROVIDERS: Emergency Medicine; Physician Assistant; Student in an Organized Health Care Education/Training Program; Admitting Provider Physician Assistant; Emergency Provider Internal Medicine; PCP Nurse Practitioner Primary Care; Visit Provider Internal Medicine
DX: L03.90 Cellulitis, unspecified (principal); I87.2 Venous insufficiency (chronic) (peripheral); E10.8 Type 1 diabetes mellitus with unspecified complications; Z79.4 Long term (current) use of insulin; I10 Essential (primary) hypertension; G47.33 Obstructive sleep apnea (adult) (pediatric); E66.01 Morbid (severe) obesity due to excess calories; Z68.45 Body mass index [BMI] 70 or greater, adult
CPT/HCPCS: 36415; 80048; 82565; 82947; 83605; 83880; 85025; 87040; 87635; 93971; 94660; 96365; 96366; 96367; 96372; 99221; 99285; J0692; J1650; J2543; J3370; J3371

== ENCOUNTER 2022-08-23 06:14 | Outpatient (REF) | payer MEDICAID, SELFPAY ==
--- NOTE | ~2022-08-23 | FL_ITS ---
EXAMINATION: XR FLUOROSCOPY WITH IMAGES CLINICAL INFORMATION: M19.012 - Primary osteoarthritis, left shoulder COMPARISON: Radiographs left shoulder 10/08/2020. TECHNIQUE: Fluoroscopy Supervised By: Dr. Elias Arroyo. Fluoroscopy Time: 0.2 minutes. Cumulative Dose: 9.55 mGy. DAP: 1.18 Gycm2. Images: 1. FINDINGS: There is spinal needle with tip adjacent to superior aspect humeral head. There is intracapsular and probable bursal contrast present. No visible vascular communication. Again, there are osteoarthritic changes glenohumeral joint. FL/FL guidance in treatment room IMPRESSION: Fluoroscopy for pain management procedure.
== END 2022-08-23 06:15 | disposition home or self-care (01) ==
LOC: CF 06:14
PROVIDERS: Visit Provider Anesthesiology
DX: M19.012 Primary osteoarthritis, left shoulder (principal)
CPT/HCPCS: 20610

== ENCOUNTER → 2022-08-29 13:41 | Outpatient (BNVA) | payer MEDICAID, SELFPAY | PROVIDERS: PCP Nurse Practitioner Primary Care; Referring Provider Nurse Practitioner Primary Care; Visit Provider Physician Assistant ==

== ENCOUNTER → 2022-09-19 13:26 | Outpatient (BNVA) | payer MEDICAID, SELFPAY | PROVIDERS: PCP Nurse Practitioner Primary Care; Visit Provider Physician Assistant | DX: E66.01 Morbid (severe) obesity due to excess calories (principal); E11.69 Type 2 diabetes mellitus with other specified complication; E78.5 Hyperlipidemia, unspecified; G47.30 Sleep apnea, unspecified; Z79.4 Long term (current) use of insulin | CPT/HCPCS: 99212 ==

== ENCOUNTER → 2022-09-26 13:19 | Outpatient (BNVA) | payer MEDICAID, SELFPAY | PROVIDERS: PCP Nurse Practitioner Primary Care; Visit Provider Anesthesiology | DX: M19.012 Primary osteoarthritis, left shoulder (principal); E66.01 Morbid (severe) obesity due to excess calories | CPT/HCPCS: 99212 ==

== ENCOUNTER → 2022-10-18 13:36 | Outpatient (BNVA) | payer MEDICAID, SELFPAY | PROVIDERS: PCP Nurse Practitioner Primary Care; Visit Provider Surgery Vascular Surgery | DX: I83.11 Varicose veins of right lower extremity with inflammation (principal); E66.01 Morbid (severe) obesity due to excess calories; Z68.44 Body mass index [BMI] 60.0-69.9, adult | CPT/HCPCS: 99202 ==

== ENCOUNTER 2022-10-31 12:44 | Outpatient (REF) | payer MEDICAID, SELFPAY ==
--- NOTE | ~2022-10-31 | US_ITS ---
EXAMINATION: US VENOUS REFLUX/INSUFFICIENCY CLINICAL INFORMATION: The patient is a 41 year-old woman with right lower extremity varicosities and inflammation. COMPARISON: Prior venous ultrasound examinations, most recently 08/09/2022. TECHNIQUE: Bilateral lower extremity and venous insufficiency ultrasound was performed with velocity measurements. Color flow Doppler imaging was performed. FINDINGS: RIGHT SIDE: GREATER SAPHENOUS VEIN: The right saphenofemoral junction measures 0.9 cm. There is no reflux The right proximal thigh diameter is 0.8 cm. There is no reflux. The right mid thigh diameter is 0.5 cm. There is no reflux. The right above-knee diameter is 0.6 cm. There is no reflux. The left at-knee diameter is 0.4 cm. There is no reflux. The left below-knee diameter is 0.5 cm. The reflux time is 2612 ms. The left mid calf diameter is 0.4 cm. There is no reflux. The left ankle diameter is 0.4 cm. There is no reflux. LESSER SAPHENOUS VEIN: The right saphenopopliteal junction diameter is 0.5 cm. There is no reflux. The right mid calf diameter is 0.2 cm. There is no reflux. The right distal calf diameter is 0.2 cm. There is no reflux LEFT SIDE: GREATER SAPHENOUS VEIN: The left saphenofemoral junction diameter is 1.1 cm. There is no reflux. The left proximal thigh diameter is 0.7 cm. There is no reflux. The left mid thigh diameter is 0.5 cm. There is no reflux. The left above-knee diameter is 0.6 cm. There is no reflux. The left at-knee diameter is 0.5 cm. The reflux time is 1176 ms. The left below-knee diameter is 0.4 cm. There is no reflux. The left mid calf diameter is 0.4 cm. There is no reflux. The left ankle diameter is 0.4 cm. There is no reflux. LESSER SAPHENOUS VEIN: The left saphenopopliteal junction diameter is 0.2 cm. There is no reflux. The left mid calf diameter is 0.4 cm. There is no reflux. The left distal calf diameter is 0.3 cm. There is no reflux BILATERAL DEEP VENOUS SYSTEMS: There is no deep venous thrombosis or reflux on the right. There is no deep venous thrombosis or reflux on the left. OTHER: The right distal femoral vein is poorly seen. There is no sizable lymphadenopathy demonstrated. US/US venous duplex LE BI IMPRESSION: There is hemodynamically significant reflux of the bilateral greater saphenous veins.
== END 2022-10-31 12:45 | disposition home or self-care (01) ==
LOC: HO.US 12:44
PROVIDERS: PCP Nurse Practitioner Primary Care; Visit Provider Surgery Vascular Surgery
DX: I83.11 Varicose veins of right lower extremity with inflammation (principal)
CPT/HCPCS: 93970

== ENCOUNTER → 2022-11-07 13:31 | Outpatient (BNVA) | payer MEDICAID, SELFPAY | PROVIDERS: PCP Nurse Practitioner Primary Care; Visit Provider Nurse Practitioner Family | DX: G47.33 Obstructive sleep apnea (adult) (pediatric) (principal); Z99.89 Dependence on other enabling machines and devices | CPT/HCPCS: 99212 ==

== ENCOUNTER → 2022-11-08 13:46 | Outpatient (BNVA) | payer MEDICAID, SELFPAY | PROVIDERS: PCP Nurse Practitioner Primary Care; Visit Provider Physician Assistant | DX: E66.01 Morbid (severe) obesity due to excess calories (principal); G47.33 Obstructive sleep apnea (adult) (pediatric); E11.9 Type 2 diabetes mellitus without complications; Z68.44 Body mass index [BMI] 60.0-69.9, adult; Z79.4 Long term (current) use of insulin; Z99.89 Dependence on other enabling machines and devices | CPT/HCPCS: 99212 ==

== ENCOUNTER → 2022-11-21 14:32 | Outpatient (BNVA) | payer MEDICAID, SELFPAY | PROVIDERS: PCP Nurse Practitioner Primary Care; Visit Provider Counselor Mental Health ==

== ENCOUNTER 2022-12-23 17:05 | Emergency (ER) | payer MEDICAID, SELFPAY ==
--- NOTE | ~2022-12-23 | XR_ITS ---
EXAMINATION: XR LUMBOSACRAL SPINE CLINICAL INFORMATION: Right leg pain and tingling. COMPARISON: Lumbar spine 02/26/20202015. CT abdomen and pelvis 07/24/2016 TECHNIQUE: Three views of the lumbosacral spine. FINDINGS: No fracture or bone destruction. Lumbar vertebrae have normal height and normal alignment. There is degenerative spurring at the endplates of the lumbar vertebrae. Mild facet joint arthrosis at the L5-S1 discs level. No spondylolysis. Sacroiliac joints are normal. XR/XR lumbar spine 2-3V IMPRESSION: 1. No acute abnormality. 2. Moderate degenerative spondylosis of lumbar spine.
[2022-12-23 17:37] VITALS: BP 150/83; PULSE 77; RESP 16; TEMP 36.1; O2SAT 96; BMI 61.9
--- NOTE | 2022-12-23 17:37 | ED_ITS ---
HPI - General Adult General Chief complaint: Back Pain/Injury Stated complaint: disc pain, no inj Time Seen by Provider: 12/23/22 18:01 Source: patient Mode of arrival: ambulatory Limitations: no limitations History of Present Illness HPI narrative: Patient is a 42 year old assigned male at with a history of diabetes and HTN presenting to the emergency department today with right sided lower back pain. Patient states that over the last week and a half he has had right sided low back pain that radiates down his right leg. Patient denies any dizziness, lightheadedness, abdominal pain, nausea, vomiting, fever, chills, blurry vision, double vision, loss of vision, chest pain, difficulty breathing, shortness of breath, night sweats, pain with urination, increased urinary frequency, increased urinary urgency, blood in his urine or stool, syncope or a near syncopal episode, recent trauma or falls, bowel incontinence, bladder incontinence, bowel retention, bladder retention, or any other complaints at thi s time. Onset (ago): week(s) (1.5) Location: back Radiation: extremity Severity: mild Severity scale (1-10): 3 Quality: aching and dull Pain Consistency: intermittent Relieving factors: none Exacerbating factors: none Associated symptoms: denies other symptoms Treatments prior to arrival: none Related Data Home Medications Medication Instructions Recorded Confirmed dulaglutide 0.75 mg/0.5 mL 0.75 mg subcut MO 07/26/21 11/08/22 subcutaneous pen injector (Trulicity) insulin glargine 100 unit/mL 55 unit subcut BEDTIME 07/26/21 11/08/22 subcutaneous solution (Lantus U-100 Insulin) insulin lispro 100 unit/mL 35 unit subcut TID 07/26/21 11/08/22 subcutaneous pen (Humalog KwikPen (U-100) Insulin) lisinopril 2.5 mg tablet 2.5 mg PO DAILY 07/26/21 11/08/22 buprenorphine 8 mg-naloxone 2 mg 1 film sublingual TID 02/09/22 11/08/22 sublingual film (Suboxone) atorvastatin 10 mg tablet 1 tab PO DAILY 08/09/22 11/08/22 Previous Rx's Medication Instructions Recorded cholecalciferol (vitamin D3) 25 25 mcg PO DAILY #30 caps 12/09/21 mcg (1,000 unit) capsule meloxicam 15 mg tablet 15 mg PO DAILY 30 days #30 tabs 03/16/22 cyclobenzaprine 5 mg tablet 5 mg PO TID PRN muscle spasm 7 12/23/22 days #21 tabs naproxen 500 mg tablet 500 mg PO BID 7 days #14 tabs 12/23/22 prednisone 20 mg tablet 20 mg PO DAILY 7 days #7 tabs 12/23/22 Allergies Allergy/AdvReac Type Severity Reaction Status Date / Time seafood Allergy Unknown Swelling Verified 12/23/22 17:40 Review of Systems Constitutional: Constitutional: Reports no additional constitutional complaints, Denies chills, Denies fever(s) and Denies night sweats Eyes: Eyes: Reports no additional eye complaints, Denies blurry vision, Denies change in vision, Denies diplopia, Denies eye discharge, Denies loss of vision and Denies eye pain ENT: Denies dizziness Cardiovascular: Cardiovascular: Reports no additional cardiovascular complaints, Denies chest pain, Denies lightheadedness, Denies Loss of Consciousness and Denies dyspnea Respiratory: Respiratory: Reports no additional respiratory complaints and Den ies dyspnea Gastrointestinal: Gastrointestinal: Reports no additional gastrointestinal complaints, Denies abdominal pain, Denies melena, Denies hematochezia, Denies change in bowel habits and Denies change in stool character Genitourinary: Genitourinary: Reports no additional male genitourinary complaints, Denies hematuria, Denies oliguria, Denies difficulty urinating, Denies dysuria, Denies urinary frequency, Denies urinary hesitancy, Denies urinary incontinence and Denies urinary urgency Musculoskeletal: Musculoskeletal: Reports no additional musculoskeletal complaints, Reports back pain, Denies numbness and Denies tingling Neurologic: Denies dizziness, Denies loss of vision, Denies numbness and Denies tingling Psychiatric: Psychiatric: Reports no additional psychiatric complaints Endocrine: Endocrine: Reports no additional endocrine complaints Hematologic/Lymphatic: Hematologic/Lymphatic: Reports no additional hematologic/lymphatic complaints Allergic/Immunologic: Allergic/Immunologic: Reports no additional allergic/immunologic complaints PMFSH Past Medical History Attestation statement: The following information was validated with the patient. Source: old records reviewed and nursing notes reviewed Medical History Carpal tunnel syndrome Diabetes HTN (hypertension), benign Hx of migraines Insulin dependent type 1 diabetes mellitus Morbid obesity Narcotic dependence BETSY on CPAP Pre-op evaluation Pre-op evaluation Shoulder dislocation Sleep apnea Thrombocytopenia Surgical History Hx of appendectomy Hx of hernia repair Family History Family History Mother No problems noted. Brother No problems noted. Daughter No problems noted. Daughter No problems noted. Daughter No problems noted. Son No problems noted. Son No problems noted. 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 Patient is a 42-year-old male with history of DM, HTN, migraines, sleep apnea, anemia, arthritis, and obesity presenting to the emergency department with complaint of right lower back pain for ten days. Denies fall or other trauma. Reports occasional pain radiating down right leg, occasional tingling to right leg. Denies fevers. Denies saddle anesthesia or bowel or bladder incontinence. Has taken meloxicam. Plan: lumbar x-ray Medications Administered Discontinued Medications Generic Name Dose Route Start Last Admin Trade Name Freq PRN Reason Stop Dose Admin Cyclobenzaprine HCl 5 mg 12/23/22 18:18 12/23/22 18:28 Cyclobenzaprine Hcl 5 Mg Tablet PO 12/23/22 18:19 5 mg ONCE ONE Administration Ketorolac Tromethamine 15 mg 12/23/22 18:18 12/23/22 18:29 Ketorolac Tromethamine 15 Mg/Ml Vial IM 12/23/22 18:19 15 mg ONCE ONE Administration Prednisone 20 mg 12/23/22 18:18 12/23/22 18:29 Prednisone 20 Mg Tablet PO 12/23/22 18:19 20 mg ONCE ONE Administration Medical Decision Making Medical Decision Making MDM Narrative: Patient is a 42 year old assigned male at with a history of diabetes and HTN presenting to the emergency department today with right sided low back pain. Patient's physical exam was unremarkable. Patient's lumbar x-ray showed no acute process. I explained my physical exam findings as well as all test results to the patient. I answered all questions asked by the patient. Patient received IM Toradol, PO Prednisone, and PO Flexeril which he stated helped his symptoms significantly. I stressed the importance of the patient taking his medication as prescribed. I stressed the importance of the patient following up with his primary care provider. I stressed the importance of the patient returning to the emergency department immediately if his symptoms were to worsen or if he were to develop any dizziness, shortness of breath, difficulty breathing, chest pain, blurry vision, loss of vision, nausea, vomiting, abdominal pain, fever, chills, back pain, or any other complaints. Patient verbalized agreement and understanding with this treatment plan and discharge. Differential Diagnosis Differential Diagnoses: The differential diagnosis associated with the presentation includes Sciatica Low back pain Lumbar radiculopathy Independent Interpretation I performed an independent interpretation of an: Plain X-Ray Interpretation: My interpretation is in agreement with the radiologist's impression of this imaging study. EXAMINATION: XR LUMBOSACRAL SPINE CLINICAL INFORMATION: Right leg pain and tingling. COMPARISON: Lumbar spine 02/26/20202015. CT abdomen and pelvis 07/24/2016 TECHNIQUE: Three views of the lumbosacral spine. FINDINGS: No fracture or bone destruction. Lumbar vertebrae have normal height and normal alignment. There is degenerative spurring at the endplates of the lumbar vertebrae. Mild facet joint arthrosis at the L5-S1 discs level. No spondylolysis. Sacroiliac joints are normal. XR/XR lumbar spine 2-3V IMPRESSION: 1.? No acute abnormality. 2.? Moderate degenerative spondylosis of lumbar spine. Dictated By: Yoseph Montiel MD Signed By: Electronically signed by Yoseph Montiel MD 12/23/22 0483 Radiology Impression Discussion of test interpretation with radiology: I have reviewed the radiologist's reading. Prescription Management I considered prescription management with: Pain Medication (patient was prescribed a pain medication.) Chronic Conditions Patient?s care impacted by: Diabetes and Hypertension Discharge Plan Discharge Clinical Impression: Sciatica Patient Disposition: Home, Self-Care Instructions: Sciatica (ED), Lower Back Exercises (ED) Additional Instructions: Follow up with your primary care provider and a client care specialist. Return to the emergency department immediately if your symptoms worsen or if you develop any dizziness, shortness of breath, difficulty breathing, chest pain, blurry vision, loss of vision, nausea, vomiting, abdominal pain, fever, chills, back pain, or any other complaints. Tavares un seguimiento con zapata proveedor de atenci?n primaria y un especialista en [place] vertebral. Regrese al departamento de emergencias de inmediato si norma s?ntomas empeoran o si presenta mareos, falta de aire, dificultad para respirar, dolor de pecho, visi?n borrosa, p?rdida de la visi?n, n?useas, v?mitos, dolor abdominal, fiebre, escalofr?os, dolor de espalda o cualquier otras quejas. Prescriptions: New prednisone 20 mg tablet 20 mg PO DAILY 7 Days Qty: 7 0RF naproxen 500 mg tablet 500 mg PO BID 7 Days Qty: 14 0RF cyclobenzaprine 5 mg tablet 5 mg PO TID PRN (Reason: muscle spasm) 7 Days Qty: 21 0RF No Action cholecalciferol (vitamin D3) 25 mcg (1,000 unit) capsule 25 mcg PO DAILY Qty: 30 5RF meloxicam 15 mg tablet 15 mg PO DAILY 30 Days Qty: 30 0RF atorvastatin 10 mg tablet 1 tab PO DAILY buprenorphine-naloxone [Suboxone] 8-2 mg film 1 film sublingual TID lisinopril 2.5 mg tablet 2.5 mg PO DAILY Lantus U-100 Insulin 100 unit/mL solution 55 unit subcut BEDTIME insulin lispro [Humalog KwikPen Insulin] 100 unit/mL insulin pen 35 unit subcut TID Trulicity 0.75 mg/0.5 mL pen injector 0.75 mg subcut MO Referrals: [facility] [Provider Group] (Call to establish and follow up with a client care specialist. Llame para establecer y hacer un seguimiento con un especialista en [place] vertebral.) Naheed Zaman CATEGORY ANALYST [Primary Care Provider] - Interventions: ED Discharge Assessment Last Done: 12/23/22 18:32 Discharge Date/Time: 12/23/22 18:32 Print Language: Ukrainian
[2022-12-23] MEDS: Cyclobenzaprine HCl 5 MG TABLET PO (18:28)
[2022-12-23] MEDS: predniSONE 20 MG TABLET PO (18:29)
[2022-12-23] MEDS: Ketorolac Tromethamine 15 MG/ML VIAL IM (18:29)
== END 2022-12-23 18:32 | disposition home or self-care (01) ==
PROVIDERS: Emergency Provider Emergency Medicine Emergency Medical Services; PCP Nurse Practitioner Primary Care
DX: M54.41 Lumbago with sciatica, right side (principal)
CPT/HCPCS: 72100; 96372; 99283; 99284; J1885

== ENCOUNTER 2022-12-27 14:42 | Outpatient (AMB) | payer MEDICAID, SELFPAY ==
--- NOTE | 2022-12-27 14:37 | A.OFFVIS_ITS ---
Intake VS Expanded 12/27/22 14:58 Height 5 ft 6 in Weight 387 lb 3.2 oz BMI 62.5 BP 141/66 H Blood Pressure Location Lt radial Blood Pressure Position Sitting Pulse 80 Pulse Source Pulse Oximeter Temp 98.6 F Temperature Source Temporal Artery Scan Pulse Oximetry 97 Oxygen Delivery Method Room Air Body Fat 196.0 Body Fat Percentage 50.6 Free Fat Mass 191.2 Muscle Mass 181.8 Visceral Mass 43.0 Water Mass 147.8 BMR 2,830 Intake Visit Reasons: (OV) F/U SWL Allergies seafood Allergy (Unknown, Verified 12/27/22 15:00) Swelling Medication List - Last Reconciled 12/27/22 by Sujey Bullock LPN atorvastatin 1 tab PO DAILY buprenorphine-naloxone 8-2 mg (Suboxone) 1 film sublingual TID cholecalciferol (vitamin D3) 25 mcg PO DAILY cyclobenzaprine 5 mg PO TID PRN 7 days dulaglutide (Trulicity) 0.75 mg subcut MO insulin glargine (Lantus U-100 Insulin) 55 units subcut BEDTIME insulin lispro (Humalog KwikPen (U-100) Insulin) 35 units subcut TID lisinopril 2.5 mg PO DAILY meloxicam 15 mg PO DAILY 30 days naproxen 500 mg PO BID 7 days prednisone 20 mg PO DAILY 7 days HPI HPI Comments History of Present Illness Details 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 TBWL is 19 lbs or 4.7% TBWL. Was seen in ED for sciatica this week -on 3 meds and exercising some. CPAP - found his CPAP machine, and called the company and left a message, but it was in Z[place]ian and he did not get a call back. Meal plan 4am - shake 6am - yogurt or bar 9am - yogurt or bar 12pm- shake and yogurt together 3-4 pm - meal of meet and carrots with ranch or blue cheese dressing 6pm - yougrt Pre op work up completed as follows: SWL classes - ? /8 appts ? - cleared, Catherine October 2022? ? RD appts? - cleared August 2021, needs another appt H pylori - negative October 2021 Labs - not done yet CXR and ECG - both normal December 2021 ULS and UGI - Both November 2021, nl with mild fatty liver PFSH Medical History Carpal tunnel syndrome Diabetes HTN (hypertension), benign Hx of migraines Insulin dependent type 1 diabetes mellitus Morbid obesity Narcotic dependence BETSY on CPAP Pre-op evaluation Pre-op evaluation Shoulder dislocation Sleep apnea Thrombocytopenia Surgical History Hx of appendectomy Hx of hernia repair Family History Mother No problems noted. Brother No problems noted. Daughter No problems noted. Daughter No problems noted. Daughter No problems noted. Son No problems noted. Son No problems noted. 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 He needs folow up with Jacki scheduled today. Meal plna - reduced to 5 times per day 4am - shake 7am - bar or yogurt 10 am - bar or yogourt 1pm - shake 4pm - meal - no blue cheese or ranch dressing on carrots. Will get labs done now. Next carmen with me in 3 weeks. Patient is morbidly obese and is not considered stable at this time. I spent 30 minutes in total with patient reviewing/updating records, examining the patient and counseling the patient on weight management as detailed above. (2) Sleep apnea treated with continuous positive airway pressure (CPAP): Code(s): G47.30 - Sleep apnea, unspecified (3) HTN (hypertension) with goal to be determined: Code(s): I10 - Essential (primary) hypertension (4) Hyperlipidemia associated with type 2 diabetes mellitus: Code(s): E11.69 - Type 2 diabetes mellitus with other specified complication; E78.5 - Hyperlipidemia, unspecified (5) Diabetes: Code(s): E11.9 - Type 2 diabetes mellitus without complications Coding Level of Care Code Est Pt Level 4 (76511) Diagnoses Morbid obesity E66.01 Sleep apnea treated with continuous positive airway pressure (CPAP) G47.30 HTN (hypertension) with goal to be determined I10 Hyperlipidemia associated with type 2 diabetes mellitus E11.69; E78.5 Diabetes E11.9
[2022-12-27 14:58] VITALS: BP 141/66; PULSE 80; TEMP 37; O2SAT 97; BMI 62.5
== END 2022-12-27 15:33 | disposition home or self-care (01) ==
PROVIDERS: PCP Nurse Practitioner Primary Care; Visit Provider Physician Assistant
DX: E66.01 Morbid (severe) obesity due to excess calories (principal); G47.30 Sleep apnea, unspecified; I10 Essential (primary) hypertension; E11.69 Type 2 diabetes mellitus with other specified complication; E78.5 Hyperlipidemia, unspecified; E11.9 Type 2 diabetes mellitus without complications
CPT/HCPCS: 99214

== ENCOUNTER → 2022-12-27 14:42 | Outpatient (BNVA) | payer MEDICAID, SELFPAY | PROVIDERS: PCP Nurse Practitioner Primary Care; Visit Provider Physician Assistant | DX: E66.01 Morbid (severe) obesity due to excess calories (principal); G47.30 Sleep apnea, unspecified; I10 Essential (primary) hypertension; E11.69 Type 2 diabetes mellitus with other specified complication; E78.5 Hyperlipidemia, unspecified; Z68.44 Body mass index [BMI] 60.0-69.9, adult | CPT/HCPCS: 99214 ==

== ENCOUNTER 2023-01-04 15:13 | Outpatient (AMB) | payer MEDICAID, SELFPAY ==
--- NOTE | 2023-01-04 15:09 | A.OFFVIS_ITS ---
Intake Intake Visit Reasons: (TV) Initial Nutrition [facility] Estimator And Drafter Supervisor Required: Yes Estimator And Drafter Supervisor Name: caren Nava Information Interpreted: non-clinical & clinical Allergies seafood Allergy (Unknown, Verified 12/27/22 15:00) Swelling HPI Nutrition Presentation Details Starting weight was 406 lbs on 09/18 Reason for consult elevated BMI Diet Assmnt Details Meal plan 4am - shake 6am - yogurt or bar 9am - yogurt or bar 12pm- shake and yogurt together 3-4 pm - meal of meet and carrots with ranch or blue cheese dressing 6pm - yougrt CPAP - found his CPAP machine, needs to get a new one. Provided him phone number in most recent workload. he will do this today [facility] online classes: none. was never enrolled in Arabic classes. Exercise: 3x per week 30-45 minutes. very tired Going on vacation from 01/15- (return date not decided) Dietary counseling reduction Diagnosis Nutrition problem #1 overweight/obesity As related to (etiology) #1 excess energy intake and physical inactivity As evidenced by (sign/symptom) #1 high BMI Monitoring/Goals Nutrition problem monitoring total energy intake, level of knowledge/skill, total PRO intake, total CHO intake and weight Outcome progress progressing Learning/Education Readiness to learn good Stages of change action Educational materials provided Yes Most Recent Diabetes Results: Creatinine 0.99 mg/dL (0.5-1.4) 10/18/22 Blood Urea Nitrogen 30 mg/dL (9-16) H 10/18/22 Sodium 138 mmol/L (135-145) 10/18/22 Potassium 4.2 mmol/L (3.3-5.1) 10/18/22 Chloride 102 mmol/L (96-108) 10/18/22 Carbon Dioxide 26 mmol/L (22-29) 10/18/22 Calcium 9.7 mg/dL (8.4-10.2) 10/18/22 AST 33 U/L (5-37) 10/18/22 ALT 29 U/L (0-40) 10/18/22 Total Protein 7.4 g/dL (6.5-8.0) 10/18/22 Albumin 4.0 g/dL (3.5-5.0) 10/18/22 [facility] Medical History Carpal tunnel syndrome Diabetes HTN (hypertension), benign Hx of migraines Insulin dependent type 1 diabetes mellitus Morbid obesity Narcotic dependence BETSY on CPAP Pre-op evaluation Pre-op evaluation Shoulder dislocation Sleep apnea Thrombocytopenia Surgical History Hx of appendectomy Hx of hernia repair Family History Mother No problems noted. Brother No problems noted. Daughter No problems noted. Daughter No problems noted. Daughter No problems noted. Son No problems noted. Son No problems noted. 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 No changes made. Pt would like nutrition follow up after he sees Nithya . Will complete classes. Was enrolled today, sent link and password info. also provided educational handouts Advised pt to call number provided (read pt workload number) and organize his cpap issues. f/u 02/15 3pm TV (date per pt preference) Telehealth Telehealth Location of provider rendering services: practice address Location of patient: address on file Patient Identification confirmed using: Name, : Yes Telehealth method: voice only Patient verbally consented to treatment: Yes Patient verbally consented to billing insurance company: Yes Patient informed of any privacy concerns related to visit: Yes Minutes spent on Phone/Video with Pt.: 30 Coding Level of Care Code Nutr Indiv Intake (96509) Diagnoses Morbid obesity E66.01 Diabetes E11.9 Time Spent (min) 40
== END 2023-01-04 15:27 | disposition home or self-care (01) ==
LOC: HO.HBS 15:13
PROVIDERS: PCP Nurse Practitioner Primary Care; Visit Provider Dietitian, Registered
DX: E66.01 Morbid (severe) obesity due to excess calories (principal); E11.9 Type 2 diabetes mellitus without complications

== ENCOUNTER → 2023-01-04 15:13 | Outpatient (BNVA) | payer MEDICAID, SELFPAY | PROVIDERS: PCP Nurse Practitioner Primary Care; Visit Provider Dietitian, Registered | DX: E66.01 Morbid (severe) obesity due to excess calories (principal); E11.9 Type 2 diabetes mellitus without complications | CPT/HCPCS: 97802 ==

== ENCOUNTER 2023-01-10 15:19 | Outpatient (AMB) | payer MEDICAID, SELFPAY ==
--- NOTE | 2023-01-10 15:22 | A.OFFVIS_ITS ---
Intake Intake Visit Reasons: follow up s/p 10/31/22 Intake Note: Patient is here for a follow up s/p 10/31/22 Parts Cleaner Required: Yes Parts Cleaner Name: Cierra KIRKPATRICK Allergies seafood Allergy (Unknown, Verified 01/10/23 15:22) Swelling HPI follow up s/p 10/31/22 HPI Details Very pleasant 42-year-old gentleman presents for follow-up regarding venous insufficiency. He is morbidly obese and has swelling of the lower extremities. He also describes some pain in his joints more so the knee and ankle joints. Now presents for follow-up with venous insufficiency testing. [facility] Medical History Carpal tunnel syndrome Diabetes HTN (hypertension), benign Hx of migraines Insulin dependent type 1 diabetes mellitus Morbid obesity Narcotic dependence BETSY on CPAP Pre-op evaluation Pre-op evaluation Shoulder dislocation Sleep apnea Thrombocytopenia Surgical History Hx of appendectomy Hx of hernia repair Family History Mother No problems noted. Brother No problems noted. Daughter No problems noted. Daughter No problems noted. Daughter No problems noted. Son No problems noted. Son No problems noted. 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 Review of Systems Const Reports as per HPI ENT Reports no additional complaints Card Denies chest pain, Denies chest pain at rest and Denies chest pain with activity Resp Denies chest congestion and Denies cough GI Reports no additional complaints Musc Details: pain over varicosities, aching of lower extremities, swelling, cramping, heaviness and tiredness, itching Denies abnormal gait Skin/Breast Reports pruritus and Denies wounds Neuro Reports no additional complaints and Denies abnormal gait Psych Denies no additional complaints Physical Exam Const General: cooperative, healthy appearing and comfortable Orientation/consciousness: oriented to person, oriented to place and oriented to time Neck Carotids: no bruits Chest Chest palpation & inspection: normal inspection of the chest and normal palpation of entire chest wall Resp Effort & Inspection: normal respiratory effort and able to speak in complete sentences Cardio Rate: regular rate Heart sounds: S1 normal heart sound present and S2 normal heart sound present Peripheral pulses: Peripheral pulses 2+ throughout GI Inspection: Yes normal to inspection Skin Other: +2 edema, General skin exam: dry skin Neuro General: oriented to person, oriented to place and oriented to time Extrem Right lower extremity: full ROM, normal capillary refill and edema Left lower extremity: full ROM, normal capillary refill and edema Psych Mental Status: mental status grossly normal Results Reviewed Results Reviewed: Brief summary of venous insufficiency testing is as follows: right great saphenous vein: negative right small saphenous vein: negative right accessory vein: none present left great saphenous vein: negative left small saphenous vein: negative left accessory vein: none present Please note there is no evidence of any venous aneurysms or significant tortuosity Assessment & Plan Assessment & Plan (1) Leg pain: Code(s): M79.606 - Pain in leg, unspecified Plan: Unclear etiology of lower extremity discomfort. It does not appear to be vascular in nature as he does have palpable pulses and his venous insufficiency testing was negative. I do believe a lot of it has to do with his morbid obesity. He reports he has been seeing weight management and reports nearly a 25 lb weight loss. I also do believe he has a musculoskeletal component to this. Should it persist may benefit from a orthopedic or pain management evaluation. He will follow up with us on an as-needed basis. Thank you for allowing us to assist in his care. If there are any questions or concerns please do not hesitate to contact us. Coding Level of Care Code Est Pt Level 4 (35875) Diagnoses Leg pain M79.606
== END 2023-01-10 15:39 | disposition home or self-care (01) ==
PROVIDERS: PCP Nurse Practitioner Primary Care; Visit Provider Surgery Vascular Surgery
DX: M79.606 Pain in leg, unspecified (principal)
CPT/HCPCS: 99213

== ENCOUNTER → 2023-01-10 15:19 | Outpatient (BNVA) | payer MEDICAID, SELFPAY | PROVIDERS: PCP Nurse Practitioner Primary Care; Visit Provider Surgery Vascular Surgery | DX: M79.609 Pain in unspecified limb (principal); M79.89 Other specified soft tissue disorders; E66.01 Morbid (severe) obesity due to excess calories | CPT/HCPCS: 99212 ==

== ENCOUNTER 2023-02-15 15:21 | Outpatient (AMB) | payer MEDICAID, SELFPAY ==
--- NOTE | 2023-02-15 15:16 | MHC.AMNUTRGE ---
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 and connection, appt cut short Reason for consult elevated BMI Diet Assmnt Details Meal plan 4am - protein shakes 6am - yogurt or bar 9am - yogurt or bar 12pm- shake and yogurt together 3-4 pm - meal of meat (chicken, pork chop) and carrots 6pm - yogurt Pt states he has no questions today, no concerns SWL online classes: still none completed - he forgot Dietary counseling reduction Diagnosis Nutrition problem #1 overweight/obesity As related to (etiology) #1 excess energy intake and physical inactivity As evidenced by (sign/symptom) #1 high BMI Monitoring/Goals Nutrition problem monitoring total energy intake, level of knowledge/skill, total PRO intake, total CHO intake and weight Outcome progress progressing Learning/Education Readiness to learn good Stages of change action Educational materials provided Yes Most Recent Diabetes Results: No Data to Display [facility] Medical History Carpal tunnel syndrome Diabetes HTN (hypertension), benign Hx of migraines Insulin dependent type 1 diabetes mellitus Morbid obesity Narcotic dependence BETSY on CPAP Pre-op evaluation Pre-op evaluation Shoulder dislocation Sleep apnea Thrombocytopenia Surgical History Hx of appendectomy Hx of hernia repair Family History Mother No problems noted. Brother No problems noted. Daughter No problems noted. Daughter No problems noted. Daughter No problems noted. Son No problems noted. Son No problems noted. 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 reinforced he continue with his nutrition plan and needs to complete his online classes. he will get his appt with [employer] r/s Telehealth Telehealth Location of provider rendering services: practice address Location of patient: address on file Patient Identification confirmed using: Name, : Yes Telehealth method: voice only Patient verbally consented to treatment: Yes Patient verbally consented to billing insurance company: Yes Patient informed of any privacy concerns related to visit: Yes Minutes spent on Phone/Video with Pt.: 15 Coding Level of Care Code Nutr Indiv Subseq (12227) Diagnoses Morbid obesity E66.01 Hyperlipidemia associated with type 2 diabetes mellitus E11.69; E78.5 Time Spent (min) 15
== END 2023-02-15 15:27 | disposition home or self-care (01) ==
LOC: HO.HBS 15:21
PROVIDERS: PCP Nurse Practitioner Primary Care; Visit Provider Dietitian, Registered
DX: E66.01 Morbid (severe) obesity due to excess calories (principal); E11.69 Type 2 diabetes mellitus with other specified complication; E78.5 Hyperlipidemia, unspecified

== ENCOUNTER → 2023-02-15 15:21 | Outpatient (BNVA) | payer MEDICAID, SELFPAY | PROVIDERS: PCP Nurse Practitioner Primary Care; Visit Provider Dietitian, Registered | DX: E66.01 Morbid (severe) obesity due to excess calories (principal); E11.69 Type 2 diabetes mellitus with other specified complication; E78.5 Hyperlipidemia, unspecified | CPT/HCPCS: 97803 ==

== ENCOUNTER 2023-03-09 13:45 | Outpatient (AMB) | payer MEDICAID, SELFPAY ==
[2023-03-09 13:52] VITALS: BP 128/88; PULSE 77; O2SAT 95; BMI 64.4
--- NOTE | 2023-03-09 13:52 | MHC.OFFVIS ---
Intake Vital Signs 03/09/23 13:52 Height 5 ft 6 in Weight 399 lb 2 oz BMI 64.4 BP 128/88 Blood Pressure Location Lt brachial Position Sitting Pulse 77 Pulse Source Pulse Oximeter Pulse Oximetry (%) 95 Oxygen Delivery Method Room Air Intake Visit Reasons: 4 mo f/u BETSY - LVM Intake Note: Pt presents to the office today for a 4 month follow up for BETSY. Pt states his CPAP has been helping a little bit with his sleep but he states he is still tired all the time. Pt states when he uses his CPAP he doesn't wake up much during the night. Allergies seafood Allergy (Unknown, Verified 03/09/23 13:54) Swelling HPI HPI Comments History of Present Illness Details 42 y/o male patient presents for follow up of BETSY. He had a repeat sleep study and titration study done in May, 2022. The baseline portion of the study was significant for a severe degree of sleep apnea. AHI was 120/hr and oxygen fritz was 74%. The breathing and oxygenation stabilized on CPAP at [id number] He started CPAP at [id number] but uses loaner CPAP. He was told that he will get a new CPAP soon, but not sure when. Pt report he sleeps much better, throughout the night 7-8 hrs. He feels refreshed and daytime tiredness has improved. The CPAP compliance and therapy response (02/07/23-) reviewed. The usage days 100% and the average usage hours 7 hrs 30 min. The AHI was 1.2/hr. [facility] Medical History Narcotic dependence Thrombocytopenia Carpal tunnel syndrome Sleep apnea Pre-op evaluation Hx of migraines BETSY on CPAP Pre-op evaluation HTN (hypertension), benign Insulin dependent type 1 diabetes mellitus Morbid obesity Shoulder dislocation Diabetes Surgical History Hx of hernia repair Hx of appendectomy Family History Mother No problems noted. Brother No problems noted. Daughter No problems noted. Daughter No problems noted. Daughter No problems noted. Son No problems noted. Son No problems noted. 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 Review of Systems Const All systems reviewed & are unremarkable except as noted in HPI and below ENT Reports Normal hearing present Neuro Reports Normal hearing present Physical Exam Vital Signs: Last Vital Signs Pulse 77 03/09/23 13:52 BP 128/88 03/09/23 13:52 Pulse Ox 95 03/09/23 13:52 Oxygen Delivery Method Room Air 03/09/23 13:52 BMI result Body Mass Index 64.4 Const General: cooperative, healthy appearing and comfortable Nutritional Appearance: obese Orientation/consciousness: oriented to person, oriented to place and oriented to time Limitations: language barrier (Slovenian speaking only) Neck Carotids: no bruits Chest Chest palpation & inspection: normal inspection of the chest and normal palpation of entire chest wall Resp Effort & Inspection: normal respiratory effort and able to speak in complete sentences Cardio Rate: regular rate Heart sounds: S1 normal heart sound present and S2 normal heart sound present Peripheral pulses: Peripheral pulses 2+ throughout GI Inspection: Yes normal to inspection Skin Other: +2 edema, General skin exam: dry skin Neuro General: oriented to person, oriented to place and oriented to time Cranial nerves: Yes Bilaterally intact EOM present, Yes Normal facial strength present, Yes Midline tongue present, Yes Normal hearing present, Yes Ability to bilaterally rotate head present and Yes Ability to bilaterally elevate shoulders present Cognition (Neuro): normal cognition Gait exam (Neuro): Normal gait present Motor exam (neuro): Pronator motor function not present and no tremor noted Extrem Right lower extremity: full ROM, normal capillary refill and edema Left lower extremity: full ROM, normal capillary refill and edema Psych Appearance: grossly normal Mental Status: mental status grossly normal Speech and movement: Normal speech and movement present Assessment & Plan Assessment & Plan (1) BETSY on CPAP: Comment: Severe degree of sleep apnea. The AHI was /hr and the oxygen fritz was 74%. Code(s): G47.33 - Obstructive sleep apnea (adult) (pediatric); Z99.89 - Dependence on other enabling machines and devices Plan Continue to use CPAP at [id number] as patient experiences good clinical effects, less snoring, sleep quality and daytime sleepiness has improved. CPAP supply order sent to [facility]. Stressed compliance, nightly and more than 4 hours. Advised patient to increase physical activity and wt reduction advised. Coding Level of Care Code Est Pt Level 4 (05069) Diagnoses BETSY on CPAP G47.33; Z99.89
== END 2023-03-09 14:10 | disposition home or self-care (01) ==
PROVIDERS: PCP Nurse Practitioner Primary Care; Visit Provider Nurse Practitioner Family
DX: G47.33 Obstructive sleep apnea (adult) (pediatric) (principal); Z99.89 Dependence on other enabling machines and devices
CPT/HCPCS: 99214

== ENCOUNTER → 2023-03-09 13:45 | Outpatient (BNVA) | payer MEDICAID, SELFPAY | PROVIDERS: PCP Nurse Practitioner Primary Care; Visit Provider Nurse Practitioner Family | DX: G47.33 Obstructive sleep apnea (adult) (pediatric) (principal); Z99.89 Dependence on other enabling machines and devices | CPT/HCPCS: 99212 ==

== ENCOUNTER 2023-05-11 09:06 | Emergency (ER) | payer MEDICAID, SELFPAY ==
--- NOTE | ~2023-05-11 | XR_ITS ---
EXAMINATION: XR KNEE, RIGHT CLINICAL INFORMATION: Fall COMPARISON: Right knee x-rays February 26, 2016 TECHNIQUE: Two views of the right knee. FINDINGS: No fracture or dislocation. Joint spaces are maintained. No suprapatellar joint effusion. No significant degenerative changes. No localized soft tissue swelling of the anterior knee. XR/XR knee RT 2V IMPRESSION: Unremarkable radiographs of the right knee.
[2023-05-11 09:12] VITALS: BP 122/80; PULSE 82; RESP 20; TEMP 36.8; O2SAT 99; BMI 58.4
--- NOTE | 2023-05-11 09:43 | ED_ITS ---
HPI - Extremity Problem General Chief complaint: Extremity Problem Stated complaint: r foot inj Time Seen by Provider: 05/11/23 09:30 Source: patient and coremaker bench Mode of arrival: wheelchair Limitations: no limitations History of Present Illness HPI Narrative: 42 year old male with pmhx significant for morbid obesity, diabetes, HDL, hypertension, sleep apnea on CPAP, anemia, osteoarthritis, migraines, varicose veins of RLE, presents to the emergency department in a wheelchair for evaluation of right knee pain s/p descending stairs yesterday and hearing a popping sound come from his right knee. States that he went to step down stairs when his right knee gave out, he heard a popping noise, causing him to grab on to the stair rail. He did not fall to the ground or hit his head. States that he has been hesitant to walk or place pressure on to his right lower extremity since. Pain localized to right knee, no radiation. Has not been taking anything for this at home. States that he has had problems with his knees in the past with arthritic changes secondary to his obesity. Denies previous surgeries on the knee. Denies numbness, tingling, weakness of the right lower extremity. Related Data Home Medications Medication Instructions Recorded Confirmed dulaglutide 0.75 mg/0.5 mL 0.75 mg subcut MO 07/26/21 12/27/22 subcutaneous pen injector (Trulicity) insulin glargine 100 unit/mL 55 unit subcut BEDTIME 07/26/21 12/27/22 subcutaneous solution (Lantus U-100 Insulin) insulin lispro 100 unit/mL 35 unit subcut TID 07/26/21 12/27/22 subcutaneous pen (Humalog KwikPen (U-100) Insulin) lisinopril 2.5 mg tablet 2.5 mg PO DAILY 07/26/21 12/27/22 buprenorphine 8 mg-naloxone 2 mg 1 film sublingual TID 02/09/22 12/27/22 sublingual film (Suboxone) atorvastatin 10 mg tablet 1 tab PO DAILY 08/09/22 12/27/22 Previous Rx's Medication Instructions Recorded cholecalciferol (vitamin D3) 25 25 mcg PO DAILY #30 caps 12/09/21 mcg (1,000 unit) capsule meloxicam 15 mg tablet 15 mg PO DAILY 30 days #30 tabs 03/16/22 cyclobenzaprine 5 mg tablet 5 mg PO TID PRN muscle spasm 7 12/23/22 days #21 tabs naproxen 500 mg tablet 500 mg PO BID 7 days #14 tabs 12/23/22 prednisone 20 mg tablet 20 mg PO DAILY 7 days #7 tabs 12/23/22 lidocaine 5 % topical patch 1 patch topical DAILY #15 ea 05/11/23 (Lidoderm) naproxen 500 mg tablet 500 mg PO Q8-12H PRN pain (scale 05/11/23 score 4-6) #14 tabs Allergies Allergy/AdvReac Type Severity Reaction Status Date / Time seafood Allergy Unknown Swelling Verified 03/09/23 13:54 Review of Systems Review of Systems: Constitutional: No fever, chills, fatigue, night sweats, weight changes ENT/Mouth: No ear pain, hearing loss, nasal congestion, sinus pain, rhinorrhea, sore throat Eyes: No eye pain, swelling, redness, vision changes, discharge Cardio: No chest pain, palpitations, HIDALGO, orthopnea, peripheral edema Pulm: No SOB, cough, sputum, wheezing, dyspnea, hemoptysis GI: No nausea, vomiting, hematemesis, abdominal pain, diarrhea, constipation, hematochezia, melena : No irregular bleeding, dysuria, frequency, urgency, hesitancy, hematuria, flank pain, urinary flow changes, urinary incontinence or retention MSK: No back pain, neck pain, joint pain, myalgias, +right knee pain Skin: No lesions, rashes Neuro: No weakness, numbness, paresthesias, LOC, dizziness, headache All other systems reviewed and are negative. [facility] Past Medical History Attestation statement: The following information was validated with the patient. Source: old records reviewed and nursing notes reviewed Medical History Narcotic dependence Thrombocytopenia Carpal tunnel syndrome Sleep apnea Pre-op evaluation Hx of migraines BETSY on CPAP Pre-op evaluation HTN (hypertension), benign Insulin dependent type 1 diabetes mellitus Morbid obesity Shoulder dislocation Diabetes Surgical History Hx of hernia repair Hx of appendectomy Family History Family History Mother No problems noted. Brother No problems noted. Daughter No problems noted. Daughter No problems noted. Daughter No problems noted. Son No problems noted. Son No problems noted. 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 Physical Exam Vital Signs: Vital Signs: Last Vital Signs Temp 98.3 F 05/11/23 09:12 Pulse 82 05/11/23 09:12 Resp 20 05/11/23 09:12 BP 122/80 05/11/23 09:12 Pulse Ox 99 05/11/23 09:12 O2 Del Method Room Air 05/11/23 09:12 BMI result Body Mass Index 58.4 Vital signs stable Const: Other: + patient is morbidly obese, sitting in wheelchair General: cooperative, no acute distress, alert and awake Nutritional Appearance: obese Orientation/consciousness: patient oriented x3 Limitations: no limitations HEENT: Head: Yes normal to inspection Ears: hearing grossly normal bilaterally Eyes: General: appearance normal, both eyes and all related structures Conj unctivae: conjunctivae normal Sclerae: sclerae normal Pupils: Equal, round and reactive pupils present Neck: Neck: Yes normal visual inspection Resp: Effort & Inspection: normal respiratory effort Auscultation: clear to auscultation bilaterally Cardio: Rate: regular rate Rhythm: regular rhythm Peripheral pulses: posterior tibial pulses present and dorsalis pedis present Skin: General skin exam: no rashes or lesions noted Neuro: Other: + unable to assess gait secondary to rig ht knee pain General: patient oriented x3 Cranial nerves: Yes Equal, round and reactive pupils present Extrem: Other: Exam limited secondary to body habitus. + slight edema noted to right knee. Jad ble to extend right knee secondary to pain. No palpable deformity. Negative anterior and posterior drawer test. Unable to perform a valgus/varus d/t body habitus. General: Yes normal to inspection Course Course Course Narrative: 1120-- x-ray right knee unremarkable. discussed case with on-call orthopedic doctor, Dr. Chowdary as I am concerned for meniscal tear. Will attempt to place knee brace on right knee. If unable to, will apply Brian wrap. Informed patient of x-ray results and the need to follow-up with orthopedics outpatient for possible meniscal injury. Patient states that he is unable to ambulate by hims elf and does not have any assistive devices at home. Will place consultation for physical therapy and case management. Patient is in agreement with this. 1221-- RN able to apply a knee immobilizer to right knee. Patient has been supplied with crutches and states that he would like to go home and no longer desires PT/case management. Informed patient that he must follow up with Ortho outpatient as he may have a meniscal injury and needs further imaging. Will supply him with pain control to take home. Patient has remained stable throughout ED visit today and is currently ambulating with crutches. Discussed strict return precautions. All questions answered at this time. Patient is agreeable with disposition and stable for discharge. Medications Administered Discontinued Medications Generic Name Dose Route Start Last Admin Trade Name Freq PRN Reason Stop Dose Admin Acetaminophen 975 mg 05/11/23 10:04 05/11/23 10:41 Acetaminophen 325 Mg Tablet PO 05/11/23 10:05 975 mg ONCE ONE Administration Lidocaine 1 patch 05/11/23 10:04 05/11/23 10:41 Lidocaine 4 % Patch Adh..Patch TRANSDERMA 05/11/23 10:05 1 patch ONCE ONE Administration Protocol Medical Decision Making Medical Decision Making [facility] Narrative: 42 year old male with pmhx significant for morbid obesity, diabetes, HDL, hypertension, sleep apnea on CPAP, anemia, osteoarthritis, migraines, varicose veins of RLE, presents to the emergency department in a wheelchair for evaluation of right knee pain s/p descending stairs yesterday and hearing a popping sound come from his right knee. Vital signs stable, patient nontoxic appearing in no acute distress. Morbidly obese. Exam limited secondary to patient's body habitus. On examination of right knee, there is slight edema. Unable to extend right knee secondary to pain. No palpable deformity. Negative anterior and posterior drawer test. Unable to perform a valgus/varus d/t body habitus. Clinical concern for fracture, dislocation, ligament/tendon injury, meniscal tear. Unlikely Denney cyst, DVT, neurovascular compromise, compartment syndrome, threat to limb. Plan for x-rays, pain control. Differential Diagnosis Differential Diagnoses: The differential diagnosis associated with the presentation includes as above. Admission/Observation Consideration of admission/observation: Escalation of care including admission/observation considered In this morbidly obese male with suspected right meniscal tear, admission was considered. Consult Healthcare Provider Management of the patient was discussed with: Air Shovel Operator (orthopedic doctor, Dr. Chowdary) Independent Interpretation I performed an independent interpretation of an: Plain X-Ray Interpretation: X-ray right knee without acute fracture dislocation, agree with radiologist's interpretation. Radiology Impression Discussion of test interpretation with radiology: I have reviewed the radiologist's reading. Radiologist Impression: XR knee RT 2V IMPRESSION: Unremarkable radiographs of the right knee. External Record Review External record reviewed: Inpatient record Prescription Management I considered prescription management with: Pain Medication Chronic Conditions Patient?s care impacted by: Diabetes and Other (morbid obesity) Social Determinants Patient?s care significantly limited by Social Determinants of Health including: Other Social Determinant of Health Critical Care Time Critical Care Time Critical Care Time: No Discharge Plan Discharge Clinical Impression: Knee strain, Morbid obesity Patient Disposition: Home, Self-Care Instructions: Crutch Instructions (ED), Knee Immobilizer (ED) Additional Instructions: The x-rays of your right knee did not demonstrate acute fracture or dislocation. You likely have a meniscal injury. This requires further imaging that cannot be done in the emergency department. YOU NEED TO FOLLOW-UP WITH ORTHOPEDICS. YOU HAVE BEEN PROVIDED WITH A REFERRAL. CALL THEM, THEY WILL NOT CALL YOU. Do not bear weight your right leg until follow up with orthopedics. You have been supplied with a knee immobilizer and crutches. Keep the immobilizer on throughout the day. You may remove this for showering and sleeping. You have been taught how to use the crutches and supplied with a peer to take home with you. You declined evaluation by physical therapy today. Naproxen as an anti-inflammatory medication. This has been sent to your pharmacy for you to take as needed for pain/discomfort. Do not take this with other NSAIDs such as ibuprofen as this may increased GI bleed. Lidocaine patches have been sent to your pharmacy. Apply these to your knee as needed for pain control. Please follow-up with your primary care provider as needed. If symptoms persist or worsen please return to the emergency department. In the case of an emergency call 911. Las radiograf?as de zapata rodilla derecha no demostraron fractura aguda ni dislocaci?n. Probablemente tengas jad lesi?n de menisco. [place] requiere m?s im?genes que no se pueden realizar en el departamento de emergencias. NECESITAS SEGUIMIENTO CON ORTOPEDIA. SE LE MONTERO PROPORCIONADO JAD REFERENCIA. LLAMALOS, NO TE LLAMARAN. No soporte peso con la pierna derecha hasta el seguimiento con ortopedia. Le peterson proporcionado un inmovilizador de rodilla y muletas. Mantenga el inmovilizador activado jevon todo el d?a. Puede quit?rselo para ducharse y dormir. Le peterson ense?ado a usar las muletas y le peterson proporcionado un cherelle?ero para que se lo lleve a casa. Usted rechaz? la evaluaci?n de fisioterapia hoy. Naproxeno dania medicamento antiinflamatorio. [place] se montero enviado a zapata farmacia pa ra que lo tome seg?n sea necesario si tiene dolor o malestar. No tome esto con otros DURGA dania ibuprofeno, ya que puede aumentar el sangrado gastrointestinal. Los parches de lidoca?na peterson sido enviados a zapata farmacia. Apl?quelos en la rodilla seg?n sea necesario para controlar el dolor. [place] un seguimiento con zapata proveedor de atenci?n primaria seg?n sea necesario. Si los s?ntomas persisten o empeoran, regrese al departamento de emergencias. En tori de emergencia llame al 911. Prescriptions: New lidocaine [Lidoderm] 5 % adhesive patch,medicated 1 patch topical DAILY Qty: 15 0RF Rx Instructions: leave on most painful area for up to 12 hrs naproxen 500 mg tablet 500 mg PO Q8-12H PRN (Reason: pain (scale score 4-6)) Qty: 14 0RF No Action cholecalciferol (vitamin D3) 25 mcg (1,000 unit) capsule 25 mcg PO DAILY Qty: 30 5RF meloxicam 15 mg tablet 15 mg PO DAILY 30 Days Qty: 30 0RF atorvastatin 10 mg tablet 1 tab PO DAILY prednisone 20 mg tablet 20 mg PO DAILY 7 Days Qty: 7 0RF naproxen 500 mg tablet 500 mg PO BID 7 Days Qty: 14 0RF cyclobenzaprine 5 mg tablet 5 mg PO TID PRN (Reason: muscle spasm) 7 Days Qty: 21 0RF buprenorphine-naloxone [Suboxone] 8-2 mg film 1 film sublingual TID lisinopril 2.5 mg tablet 2.5 mg PO DAILY Lantus U-100 Insulin 100 unit/mL solution 55 unit subcut BEDTIME insulin lispro [Humalog KwikPen Insulin] 100 unit/mL insulin pen 35 unit subcut TID Trulicity 0.75 mg/0.5 mL pen injector 0.75 mg subcut MO Referrals: [facility] [Provider Group] - 3 days (Right knee immobilizer, ?meniscal tear) Stand Alone Forms: Work/School Release
[2023-05-11] MEDS: Acetaminophen 325 MG TABLET 975 MG PO (10:41)
[2023-05-11] MEDS: Lidocaine 4 % Patch ADH..PATCH 1 PATCH TRANSDERMA (10:41)
== END 2023-05-11 12:46 | disposition home or self-care (01) ==
PROVIDERS: Emergency Provider Student in an Organized Health Care Education/Training Program; PCP Nurse Practitioner Primary Care
DX: S83.91XA Sprain of unspecified site of right knee, initial encounter (principal); E66.01 Morbid (severe) obesity due to excess calories; E11.9 Type 2 diabetes mellitus without complications; W10.9XXA Fall (on) (from) unspecified stairs and steps, initial encounter; Y93.9 Activity, unspecified; Y92.9 Unspecified place or not applicable; Y99.9 Unspecified external cause status; Z79.899 Other long term (current) drug therapy; Z68.43 Body mass index [BMI] 50.0-59.9, adult; Z79.4 Long term (current) use of insulin
CPT/HCPCS: 73560; 99283; 99284

== ENCOUNTER 2023-05-18 06:28 | Outpatient (REF) | payer MEDICAID, SELFPAY | END 2023-05-18 06:29 | disposition home or self-care (01) | LOC: HO.HOSX 06:28 | PROVIDERS: Visit Provider Physician Assistant | DX: S92.351A Displaced fracture of fifth metatarsal bone, right foot, initial encounter for closed fracture (principal); M23.91 Unspecified internal derangement of right knee | CPT/HCPCS: 73630; 99212 ==

== ENCOUNTER 2023-05-18 09:53 | Outpatient (AMB) | payer MEDICAID, SELFPAY ==
--- NOTE | 2023-05-18 10:32 | MHC.OFFVIS ---
Intake Vital Signs 05/18/23 10:40 Height 5 ft 6 in Weight 362 lb BMI 58.4 Intake Visit Reasons: Fc-? Ed follow up rt knee strain/ foot pain Intake Note: Ross 42 yr old male presents today for a new patient visit for his right knee. States as he was walking down a flight of stairs on 05/10/23 and heard a popping sound that come from his right knee. States that he went to step down stairs when his right knee gave out, causing him to grab on to the stair rail. He did not fall to the ground or hit his head. States that he has been hesitant to walk or place pressure on to his right lower extremity since. Seen in ED where he was given a knee immobilizer. States he has swelling in his leg and mild pain in ankle. Allergies seafood Allergy (Unknown, Verified 05/18/23 10:45) Swelling HPI Fc-? Ed follow up rt knee strain/ foot pain HPI Details 42-year-old male who presents to the office today for an ER follow-up of right knee injury s/p walking down a flight of stairs when he heard a popping sound and his right knee gave out causing him to grab on the stair rails, 05/10/23. He denies any fall on the ground. He was seen at ED where a knee immobilizer was given. He currently states he has swelling in his leg as well as mild pain in his ankle. He reports he has been hesitant to ambulate or place pressure onto his right lower extremity. [facility] Medical History Narcotic dependence Thrombocytopenia Carpal tunnel syndrome Sleep apnea Pre-op evaluation Hx of migraines BETSY on CPAP Pre-op evaluation HTN (hypertension), benign Insulin dependent type 1 diabetes mellitus Morbid obesity Shoulder dislocation Diabetes Surgical History Hx of hernia repair Hx of appendectomy Family History Mother No problems noted. Brother No problems noted. Daughter No problems noted. Daughter No problems noted. Daughter No problems noted. Son No problems noted. Son No problems noted. 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 Review of Systems Const All systems reviewed & are unremarkable except as noted in HPI and below Physical Exam Vital Signs: BMI result Body Mass Index 58.4 Const General: cooperative, healthy appearing, comfortable, no acute distress, well developed and alert Orientation/consciousness: patient oriented x3 HEENT Head: Yes normal to inspection, Yes normocephalic and Yes atraumatic Eyes General: appearance normal, both eyes and all related structures Resp Effort & Inspection: normal respiratory effort and able to speak in complete sentences Cardio Rate: regular rate Peripheral pulses: Peripheral pulses 2+ throughout GI Palpation (GI): Soft to palpation Skin Lesions: no lesions Rashes: no rashes Neuro General: patient oriented x3 Extrem Other: Right knee: Skin intact, no erythema or joint effusion. Tenderness along the medial joint line. Full ROM with crepitus. Negative Taya?s. No ligamentous laxity. NVI. Results Reviewed Results Reviewed: Xrays of the right knee obtained 05/11/23 are negative for acute fracture or dislocation Assessment & Plan Assessment & Plan (1) Internal derangement of right knee: Code(s): M23.91 - Unspecified internal derangement of right knee Plan An MRI of the right knee has been ordered to further evaluate the integrity of meniscus. He was also fit for a knee brace to help with his stability while ambulating. He will see me back once the scan is complete. Orders: Orders XR foot RT min 3V Today S92.351A - Displaced fracture of fifth metatarsal bone, right foot, initial encounter for closed fracture MR knee RT wo con Today M23.91 - Unspecified internal derangement of right knee Patient Instructions: Scribed for Jerod Nichols PA-C, by Ralph Cordova biomedical equipment specialist, on 05/18/2023 at 10:30 AM EST. IJerod PA-C, have personally reviewed and agree with the information entered by the scribe. Coding Level of Care Code New Pt Level 3 (52078) Diagnoses Internal derangement of right knee M23.91
[2023-05-18 10:40] VITALS: BMI 58.4
== END 2023-05-18 11:05 | disposition home or self-care (01) ==
PROVIDERS: PCP Nurse Practitioner Primary Care; Visit Provider Physician Assistant
DX: M23.91 Unspecified internal derangement of right knee (principal)
CPT/HCPCS: 99203

== ENCOUNTER 2023-06-06 09:10 | Emergency (ER) | payer MEDICAID, SELFPAY ==
--- NOTE | ~2023-06-06 | XR_ITS ---
EXAMINATION: XR CHEST CLINICAL INFORMATION: Epigastric and chest pain. COMPARISON: None available. TECHNIQUE: 2 views of the chest were obtained. FINDINGS: No significant abnormality is noted involving the heart, lungs, mediastinum, bony thorax or soft tissues. XR/XR chest 2V IMPRESSION: Unremarkable chest examination.
--- NOTE | 2023-06-06 09:15 | ECG_ITS ---
Test Reason : cp Blood Pressure : / mmHG Vent. Rate : 068 BPM Atrial Rate : 068 BPM P-R Int : 140 ms QRS Dur : 082 ms QT Int : 388 ms P-R-T Axes : 054 046 049 degrees QTc Int : 412 ms Normal sinus rhythm Normal ECG When compared with ECG of 20-JAN-2021 11:38, No significant change was found Referred By: Generic ED Physician Electronically Signed By:OLIVER KNOX MD
[2023-06-06 09:21] VITALS: BP 133/93; PULSE 84; RESP 18; TEMP 36.6; O2SAT 98; BMI 60.5
[2023-06-06 09:50] LABS: MANUAL DIFF FLAG NO
[2023-06-06 09:57] LABS: Basophils Percent Auto 0.5 % (0-2); Eosinophils Absolute Auto 0.1 X10*3/uL (0.0-0.4); Eosinophils Percent Auto 1.6 % (0-4); Hematocrit 39.2 % (42.0-52.0); Hemoglobin 12.7 g/dl (14.0-18.0); Imm Gran Abs Auto 0.04 X10*3/uL (0.00-0.03); Imm Gran Pct Auto 0.5 % (0.0-0.4); Lymphocytes Absolute Auto 1.7 X10*3/uL (1.2-4.9); Lymphocytes Percent Auto 19.6 % (20-40); Mean Corpuscular HGB Conc 32.4 g/dl (31.0-36.0); Mean Corpuscular Hemoglobin 26.7 pg (27.0-33.0); Mean Corpuscular Volume 82.5 fL (80.0-98.0); Mean Platelet Volume 11.8 fL (9.4-12.4); Monocytes Absolute Auto 0.6 X10*3/uL (0.1-1.2); Monocytes Percent Auto 7.3 % (2-11); Neutrophils Percent Auto 70.5 % (45-73); Platelet Count 136 X10*3/uL (160-400); Red Blood Count 4.75 X10*6/uL (4.60-5.80); Red Cell Distribution Width 14.1 % (11.0-16.0); White Blood Count 8.5 X10*3/uL (4.8-10.8)
[2023-06-06 10:16] LABS: Alanine Aminotransferase 34 U/L (0-40); Alkaline Phosphatase 63 U/L (39-117); Anion Gap 12 (12-20); Aspartate Amino Transferase 35 U/L (5-37); Bilirubin Direct 0.5 mg/dL (0.0-0.5); Bilirubin Total 1.8 mg/dL (0.0-1.0); Blood Urea Nitrogen 17 mg/dL (9-16); Carbon Dioxide 30 mmol/L (22-29); Chloride 101 mmol/L (96-108); Creatinine Clr Calc Pharmacy 139.2; Estimated Glomerular Filt Rate > 60; Glucose Random 141 mg/dL (60-115); Lipase 40 U/L (8-78); Potassium 3.8 mmol/L (3.3-5.1); Sodium 139 mmol/L (135-145); Total Protein 7.8 g/dL (6.5-8.0)
[2023-06-06 10:22] LABS: Troponin-I High Sensitivity 5.8 ng/L (<3.5-35.0)
[2023-06-06 10:35] LABS: Influenza A PCR NEGATIVE (Negative); Influenza B PCR NEGATIVE (Negative); Resp Syncy Virus RNA Qual PCR NEGATIVE (Negative); SARS COV2 PCR INHOUSE NEGATIVE (Negative)
[2023-06-06] MEDS: Ondansetron ODT 4 MG TAB.RAPDIS TRANSLINGU (19:06)
[2023-06-06 20:57] VITALS: BP 173/98; PULSE 86; RESP 20; TEMP 36.8; O2SAT 96
[2023-06-06 21:05] LABS: Glucose, Whole Blood 113 mg/dL (60-115)
--- NOTE | 2023-06-06 21:27 | ED.GENADULT ---
HPI - General Adult General Chief complaint: General Medical Stated complaint: Vomiting Chest Pain Time Seen by Provider: 06/06/23 21:27 Source: patient Mode of arrival: ambulatory Limitations: no limitations History of Present Illness HPI narrative: Patient morbidly obese been vomiting for last 1 week initially 3 -4 times a day for last 24 hours vomited more than 20 times with streaks of bright red blood with epigastric pain. no Diarrhea no abdominal distention pain is mostly in epigastric area no fever no chills no recent antibiotic use/ bad food no other family member sick Related Data Home Medications Medication Instructions Recorded Confirmed dulaglutide 0.75 mg/0.5 mL 0.75 mg subcut MO 07/26/21 12/27/22 subcutaneous pen injector (Trulicity) insulin glargine 100 unit/mL 55 unit subcut BEDTIME 07/26/21 12/27/22 subcutaneous solution (Lantus U-100 Insulin) insulin lispro 100 unit/mL 35 unit subcut TID 07/26/21 12/27/22 subcutaneous pen (Humalog KwikPen (U-100) Insulin) lisinopril 2.5 mg tablet 2.5 mg PO DAILY 07/26/21 12/27/22 buprenorphine 8 mg-naloxone 2 mg 1 film sublingual TID 02/09/22 12/27/22 sublingual film (Suboxone) atorvastatin 10 mg tablet 1 tab PO DAILY 08/09/22 12/27/22 Previous Rx's Medication Instructions Recorded cholecalciferol (vitamin D3) 25 25 mcg PO DAILY #30 caps 12/09/21 mcg (1,000 unit) capsule meloxicam 15 mg tablet 15 mg PO DAILY 30 days #30 tabs 03/16/22 cyclobenzaprine 5 mg tablet 5 mg PO TID PRN muscle spasm 7 12/23/22 days #21 tabs naproxen 500 mg tablet 500 mg PO BID 7 days #14 tabs 12/23/22 lidocaine 5 % topical patch 1 patch topical DAILY #15 ea 05/11/23 (Lidoderm) naproxen 500 mg tablet 500 mg PO Q8-12H PRN pain (scale 05/11/23 score 4-6) #14 tabs ondansetron 4 mg disintegrating 4 mg PO Q6-8H PRN nausea and 06/07/23 tablet vomiting #10 tabs Allergies Allergy/AdvReac Type Severity Reaction Status Date / Time seafood Allergy Unknown Swelling Verified 06/06/23 09:21 Review of Systems Review of Systems: Yes all other systems are reviewed and are negative PMFSH Past Medical History Onset Date is defined in the Problem List Problems that require an onset date and time if occurred within 24 hrs of arrival to the ED Aortic Dissection and Rupture; Neurologic impairment; Cardiopulmonary Arrest; Endotracheal Intubation; Insertion or Replacement of Mechanical Circulatory Assist Device Medical History Narcotic dependence Thrombocytopenia Carpal tunnel syndrome Sleep apnea Pre-op evaluation Hx of migraines BETSY on CPAP Pre-op evaluation HTN (hypertension), benign Insulin dependent type 1 diabetes mellitus Morbid obesity Shoulder dislocation Diabetes Surgical History Hx of hernia repair Hx of appendectomy Family History Family History Mother No problems noted. Brother No problems noted. Daughter No problems noted. Daughter No problems noted. Daughter No problems noted. Son No problems noted. Son No problems noted. 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 Oriented X3. Obese, Looks sick nauseated. Eyes: PERRLA, No Nystagmus ENT: Pharynx normal. Oral Mucosa moist Neck: Normal inspection. Neck supple. CVS: Normal heart rate and rhythm. Pulses normal. Respiratory: No respiratory distress. Equal air entry bilateral, no wheezing/rales/rhonchi Abdomen: Soft , mild epigastric tenderness Bowel sounds are present, no mass palpable, no CVA tenderness Skin: Skin warm and dry. Normal skin color. Normal skin turgor. Extremities: No lower extremity edema. No calf tenderness Neuro: Oriented X 3. Medications Administered Discontinued Medications Generic Name Dose Route Start Last Admin Trade Name Freq PRN Reason Stop Dose Admin Famotidine 20 mg 06/06/23 21:38 06/06/23 22:00 Famotidine/Pf 20 Mg/2 Ml Vial IVPUSH 06/06/23 21:39 20 mg ONCE ONE Administration Sodium Chloride 1,000 mls @ 999 mls/hr 06/06/23 21:38 06/07/23 01:05 Ns IV 06/06/23 22:38 Infused .Q1H1M ONE Infusion Sodium Chloride 1,000 mls @ 999 mls/hr 06/06/23 23:39 06/07/23 01:06 Ns IV 06/07/23 00:39 Not Given .Q1H1M ONE Lorazepam 2 mg 06/06/23 23:39 06/06/23 23:42 Lorazepam 2 Mg/Ml Vial IVPUSH 06/06/23 23:40 2 mg ONCE ONE Administration Morphine Sulfate 4 mg 06/06/23 21:43 06/06/23 22:00 Morphine Sulfate 4 Mg/Ml Cartridge IVPUSH 06/06/23 21:44 4 mg ONCE ONE Administration Protocol Ondansetron HCl 4 mg 06/06/23 15:17 06/06/23 19:06 Ondansetron Odt 4 Mg Tab.Rapdis TRANSLINGU 06/06/23 15:18 4 mg ONCE ONE Administration Ondansetron HCl 4 mg 06/06/23 21:38 06/06/23 22:00 Ondansetron Hcl 4 Mg/2 Ml Vial IVPUSH 06/06/23 21:39 4 mg ONCE ONE Administration Prochlorperazine Edisylate 10 mg 06/06/23 23:11 06/06/23 23:17 Prochlorperazine Edisylate 10 Mg/2 Ml Vial IVPUSH 06/06/23 23:12 10 mg ONCE ONE Administration Medical Decision Making Medical Decision Making [facility] Narrative: Patient with acute nausea vomiting with epigastric pain had previous CT scans and ultrasound in 2021- for gallbladder disease labs are stable will continue to give IV fluids medication for nausea Patient felt better after Ativan and IV fluids taking p.o. fluids no discharge patient home Differential Diagnosis Differential Diagnoses: The differential diagnosis associated with the presentation includes Acute gastritis/Suboxone withdrawal/food poisoning/viral gastroenteritis Lab Data [facility] Lab Attestation statement: I reviewed the patient's lab results. 06/06/23 09:45 06/06/23 09:45 Labs: Lab Results 06/06/23 06/06/23 Range/Units 09:45 20:55 WBC 8.5 (4.8-10.8) X10*3/uL RBC 4.75 (4.60-5.80) X10*6/uL Hgb 12.7 L (14.0-18.0) g/dl Hct 39.2 L (42.0-52.0) % MCV 82.5 (80.0-98.0) fL MCH 26.7 L (27.0-33.0) pg MCHC 32.4 (31.0-36.0) g/dl RDW 14.1 (11.0-16.0) % Plt Count 136 L (160-400) X10*3/uL MPV 11.8 (9.4-12.4) fL Immature Gran % (Auto) 0.5 H (0.0-0.4) % Neut % (Auto) 70.5 (45-73) % Lymph % (Auto) 19.6 L (20-40) % Candler % (Auto) 7.3 (2-11) % Eos % (Auto) 1.6 (0-4) % Baso % (Auto) 0.5 (0-2) % Lymph # (Auto) 1.7 (1.2-4.9) X10*3/uL Candler # (Auto) 0.6 (0.1-1.2) X10*3/uL Eos # (Auto) 0.1 (0.0-0.4) X10*3/uL Baso # (Auto) 0.0 (0.0-0.2) X10*3/uL Abs Immat Gran (auto) 0.04 H (0.00-0.03) X10*3/uL Absolute Neuts (auto) 6.0 (2.0-8.3) x10*3/uL Absolute Nucleated RBC 0.000 (0.0-0.012) X10*3/uL Nucleated RBC % (auto) 0.0 (0.0-0.2) /100WBC Sodium 139 (135-145) mmol/L Potassium 3.8 (3.3-5.1) mmol/L Chloride 101 (96-108) mmol/L Carbon Dioxide 30 H (22-29) mmol/L Anion Gap 12 (12-20) BUN 17 H (9-16) mg/dL Creatinine 1.05 (0.5-1.4) mg/dL Estim Creat Clear Calc 139.2 Estimated GFR > 60 POC Glucose 113 (60-115) mg/dL Random Glucose 141 H (60-115) mg/dL Calcium 10.0 (8.4-10.2) mg/dL Total Bilirubin 1.8 H (0.0-1.0) mg/dL Direct Bilirubin 0.5 (0.0-0.5) mg/dL AST 35 (5-37) U/L ALT 34 (0-40) U/L Alkaline Phosphatase 63 (39-117) U/L Troponin I High Sens 5.8 (<3.5-35.0) ng/L Total Protein 7.8 (6.5-8.0) g/dL Albumin 4.0 (3.5-5.0) g/dL Lipase 40 (8-78) U/L Influenza Type A (PCR) NEGATIVE (Negative) Influenza Type B (PCR) NEGATIVE (Negative) RSV RNA Qual (PCR) NEGATIVE (Negative) SARS-CoV-2 RNA (RT-PCR) NEGATIVE (Negative) Discharge Plan Discharge Clinical Impression: Nausea and vomiting Patient Disposition: Home, Self-Care Instructions: Acute Nausea and Vomiting (ED) Additional Instructions: Drink plenty of fluids Med for nausea as prescribed Continue taking your prescribed medications Prescriptions: New ondansetron 4 mg tablet,disintegrating 4 mg PO Q6-8H PRN (Reason: nausea and vomiting) Qty: 10 0RF No Action cholecalciferol (vitamin D3) 25 mcg (1,000 unit) capsule 25 mcg PO DAILY Qty: 30 5RF meloxicam 15 mg tablet 15 mg PO DAILY 30 Days Qty: 30 0RF atorvastatin 10 mg tablet 1 tab PO DAILY naproxen 500 mg tablet 500 mg PO BID 7 Days Qty: 14 0RF cyclobenzaprine 5 mg tablet 5 mg PO TID PRN (Reason: muscle spasm) 7 Days Qty: 21 0RF lidocaine [Lidoderm] 5 % adhesive patch,medicated 1 patch topical DAILY Qty: 15 0RF Rx Instructions: leave on most painful area for up to 12 hrs naproxen 500 mg tablet 500 mg PO Q8-12H PRN (Reason: pain (scale score 4-6)) Qty: 14 0RF buprenorphine-naloxone [Suboxone] 8-2 mg film 1 film sublingual TID lisinopril 2.5 mg tablet 2.5 mg PO DAILY Lantus U-100 Insulin 100 unit/mL solution 55 unit subcut BEDTIME insulin lispro [Humalog KwikPen Insulin] 100 unit/mL insulin pen 35 unit subcut TID Trulicity 0.75 mg/0.5 mL pen injector 0.75 mg subcut MO Interventions: ED Discharge Assessment Last Done: 06/07/23 01:35 Discharge Date/Time: 06/07/23 01:36
[2023-06-06] MEDS: 0.9 % Sodium Chloride 1,000 ML 999 ML IV (22:00)
[2023-06-06] MEDS: Famotidine/PF 20 MG/2 ML VIAL IVPUSH (22:00)
[2023-06-06] MEDS: Morphine Sulfate 4 MG/ML CARTRIDGE IVPUSH (22:00)
[2023-06-06] MEDS: ondansetron HCL 4 MG/2 ML VIAL IVPUSH (22:00)
[2023-06-06 23:02] VITALS: BP 107/50; PULSE 83; RESP 15; TEMP 36.9; O2SAT 98
[2023-06-06] MEDS: Prochlorperazine Edisylate 10 MG/2 ML VIAL IVPUSH (23:17)
--- NOTE | 2023-06-06 23:37 | ECG_ITS ---
Test Reason : CHEST PAIN Blood Pressure : / mmHG Vent. Rate : 097 BPM Atrial Rate : 097 BPM P-R Int : 152 ms QRS Dur : 078 ms QT Int : 364 ms P-R-T Axes : 071 046 020 degrees QTc Int : 462 ms Normal sinus rhythm ST & T wave abnormality, consider inferior ischemia Abnormal ECG When compared with ECG of 06-JUN-2023 09:40, T wave inversion now evident in Inferior leads QT has lengthened Referred By: Vincent Sheehan Electronically Signed By:OLIVER KNOX MD
[2023-06-06] MEDS: LORazepam 2 MG/ML VIAL IVPUSH (23:42)
--- NOTE | 2023-06-06 23:57 | PC.NURSE ---
pt suddenly became agitated anxious and restless. states I feel hot like all my muscles are twisting. also reporting new onset of chest pain. MD notified. MD at bedside. ativan ordered and administered. will continue to monitor.
--- NOTE | 2023-06-07 01:24 | PC.NURSE ---
pt tolerated PO challenge. rpts he is feeling much better and he is ready to go home. MD notified.
== END 2023-06-07 01:36 | disposition home or self-care (01) ==
PROVIDERS: Emergency Provider Internal Medicine; PCP Nurse Practitioner Primary Care
DX: R07.89 Other chest pain (principal); R11.2 Nausea with vomiting, unspecified; R10.13 Epigastric pain; Z79.899 Other long term (current) drug therapy; Z20.828 Contact with and (suspected) exposure to other viral communicable diseases; Z11.52 Encounter for screening for COVID-19
CPT/HCPCS: 0241U; 71046; 80048; 80076; 82947; 83690; 84484; 85025; 93005; 96361; 96374; 96375; 96376; 99284; J0737; J2060; J2270; J2405

== ENCOUNTER → 2023-06-06 09:15 | Outpatient (BNV) | payer MEDICAID, SELFPAY | PROVIDERS: PCP Nurse Practitioner Primary Care; Visit Provider Internal Medicine Cardiovascular Disease | DX: R07.9 Chest pain, unspecified (principal) | CPT/HCPCS: 93010 ==

== ENCOUNTER 2023-06-09 10:33 | Outpatient (REF) | payer MEDICAID, SELFPAY | END 2023-06-09 10:34 | disposition home or self-care (01) | LOC: HO.HOSX 10:33 | PROVIDERS: Visit Provider Physician Assistant | DX: Z13.89 Encounter for screening for other disorder (principal) ==

== ENCOUNTER 2023-06-14 11:19 | Outpatient (REF) | payer MEDICAID, SELFPAY ==
[2023-06-14 14:10] LABS: Anion Gap 14 (12-20); Blood Urea Nitrogen 16 mg/dL (9-16); Calcium 9.8 mg/dL (8.4-10.2); Carbon Dioxide 25 mmol/L (22-29); Chloride 103 mmol/L (96-108); Cholesterol 140 mg/dL (<200); Estimated Glomerular Filt Rate > 60; Glucose Random 141 mg/dL (60-115); HDL Cholesterol 43 mg/dL (>40); LDL Cholesterol Calculated 79 mg/dL (<100); Potassium 4.4 mmol/L (3.3-5.1); Sodium 138 mmol/L (135-145); Triglycerides 90 mg/dL (<150)
[2023-06-15 04:40] LABS: HBS Num1 0.18 mIU/mL (0-7.99); HBc Num1 0.09 S/CO (0.00-0.79); HBsAGNum1 0.34 S/CO (0.00-0.99); Hepatitis B Core Antibody Nonreactive (Nonreactive); Hepatitis B Surface Antigen Negative (Negative); ~Hepatitis B Surface Antibody NONREACTIVE (Nonreactive)
== END 2023-06-14 11:20 | disposition home or self-care (01) ==
LOC: HO.HHCL 11:19
PROVIDERS: Visit Provider Nurse Practitioner Primary Care
DX: Z00.00 Encounter for general adult medical examination without abnormal findings (principal); R10.13 Epigastric pain; E11.69 Type 2 diabetes mellitus with other specified complication; E78.5 Hyperlipidemia, unspecified; D69.6 Thrombocytopenia, unspecified
CPT/HCPCS: 36415; 80048; 80061; 85025; 86704; 86706; 87338; 87340

== ENCOUNTER 2023-07-06 10:58 | Outpatient (AMB) | payer MEDICAID, SELFPAY ==
[2023-07-06 10:59] VITALS: BP 195/84; PULSE 84; BMI 67.5
--- NOTE | 2023-07-06 10:59 | A.OFFVIS_ITS ---
Intake Vital Signs 07/06/23 10:59 Height 5 ft 6 in Weight 418 lb 6.998 oz BMI 67.5 BP 195/84 H Blood Pressure Location Lt brachial Position Sitting Pulse 84 Pulse Source Pulse Oximeter Intake Visit Reasons: Nausea and Vomiting unspecified Intake Note: Pt presents to the office today for Nausea and vomiting. Pt states he has had issues with nausea and vomiting for 2-3 years but states it has gotten a lot worse in the past few months. Pt states he vomits about 2-3 times a day and ended up going to the ER because he had a few bouts of blood in his vomit. Pt states he does have diarrhea sometimes. Nurse Behavioral Health Care Required: Yes Nurse Behavioral Health Care Language: Engineering Document Control Clerk Name: Tawnya([id number]) Allergies seafood Allergy (Unknown, Verified 07/06/23 11:01) Swelling Medication List - Last Reconciled 07/06/23 by Mirna Gaines PA-C atorvastatin 1 tab PO DAILY buprenorphine-naloxone 8-2 mg (Suboxone) 1 film sublingual TID cholecalciferol (vitamin D3) 25 mcg PO DAILY cyclobenzaprine 5 mg PO TID PRN 7 days dulaglutide (Trulicity) 0.75 mg subcut MO insulin glargine (Lantus U-100 Insulin) 55 units subcut BEDTIME insulin lispro (Humalog KwikPen (U-100) Insulin) 35 units subcut TID lidocaine 5% (Lidoderm) 1 patch topical DAILY lisinopril 2.5 mg PO DAILY meloxicam 15 mg PO DAILY 30 days naproxen 500 mg PO Q8-12H PRN naproxen 500 mg PO BID 7 days ondansetron 4 mg PO Q6-8H PRN HPI HPI Comments History of Present Illness Details present Nurse Behavioral Health Care device used A 42-year-old male referred with years nausea and vomiting. He says he has had nausea and vomiting for the past 2 years however seems to be worse lately. Has acid reflux- not taking ppi He says he had gone to the emergency room about 3 months ago- because he saw blood in his vomit however he had a workup there and nothing was found. He started smoking MJ 3-4 weeks ago He was drinking a lot of redbull and monster Appetite is ok after he gets through nausea in the morning- early satiety He was taking Trulicity- stopped about 3-4 weeks ago- noted some improvement Omeprazole prescribed- he has not picked it up Also prescribed ondansatron- - but ran out- He claims to have lost weight- BP is elevated- he admits to Has been followed for some time with bariatric surgery-he does not follow with them any further- present [facility] Medical History (Updated 07/10/23 @ 10:04 by Mirna Gaines PA-C) Narcotic dependence Thrombocytopenia Carpal tunnel syndrome Sleep apnea Pre-op evaluation Hx of migraines BETSY on CPAP Pre-op evaluation HTN (hypertension), benign Insulin dependent type 1 diabetes mellitus Morbid obesity Shoulder dislocation Diabetes Surgical History Hx of hernia repair Hx of appendectomy Family History Mother No problems noted. Brother No problems noted. Daughter No problems noted. Daughter No problems noted. Daughter No problems noted. Son No problems noted. Son No problems noted. 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 Review of Systems Const All systems reviewed & are unremarkable except as noted in HPI and below Card Denies chest pain and Denies dyspnea Resp Denies dyspnea GI Reports abdominal pain, Reports early satiety, Reports heartburn, Reports nausea and Reports vomiting Physical Exam Vital Signs: Last Vital Signs Pulse 84 07/06/23 10:59 BP 195/84 H 07/06/23 10:59 BMI result Body Mass Index 67.5 Const General: cooperative Nutritional Appearance: obese Orientation/consciousness: patient oriented x3 Limitations: language barrier Eyes Sclerae: sclerae normal Resp Effort & Inspection: normal respiratory effort and able to speak in complete sentences Auscultation: clear to auscultation bilaterally, no rales, no rhonchi and no wheezes Cardio Rate: regular rate Rhythm: regular rhythm GI Inspection: Yes Abdominal panniculus present and Yes obesity Palpation (GI): Soft to palpation and nontender Auscultation: normal bowel sounds Neuro General: patient oriented x3 Extrem General: Yes full ROM Psych Mental Status: mental status grossly normal Speech and movement: Clear speech present Affect: Labile affect present Attitude: cooperative Thought content: Normal thought content present Assessment & Plan Assessment & Plan (1) Nausea and vomiting: Comment: DM-intermittent- DM- no blood Code(s): R11.2 - Nausea with vomiting, unspecified Plan: monitor GES (2) Epigastric pain: Comment: intermittent Code(s): R10.13 - Epigastric pain Plan: nrml enzymes (3) Early satiety: Comment: DM- Code(s): R68.81 - Early satiety Plan: GES (4) Anemia: Comment: Mike belcher SP- Code(s): D64.9 - Anemia, unspecified Plan omeprazole carafate QID x 4 wks ondansatron labs- cbc-HGA1c GES Consider EGD- booking out- need to be done in OR- bariatric bed small portions at a time sx- hemetemesis/ hemoptisis- ED- Orders: Orders Thyroid Stimulating Hormone 07/06/23 E11.69 - Type 2 diabetes mellitus with other specified complication, E78.5 - Hyperlipidemia, unspecified, I10 - Essenti al (primary) hypertension NM gastric emptying study 07/06/23 E11.9 - Type 2 diabetes mellitus without complications, R11.2 - Nausea with vomiting, unspecified, R68.81 - Early satiety Vitamin B12 and Folate Today D64.9 - Anemia, unspecified IRON PROFILE Today D64.9 - Anemia, unspecified Hemoglobin A1c 07/06/23 E11.69 - Type 2 diabetes mellitus with other specified complication, E78.5 - Hyperlipidemia, unspecified Complete Blood Count Auto Diff 07/06/23 R10.13 - Epigastric pain Medications: New sucralfate 1 g (10 mL) PO QIDACHS 4 weeks 420 mL 0RF reflux ondansetron 4 mg PO DAILY 20 tabs 0RF omeprazole 20 mg PO DAILY 30 caps 5RF Patient Instructions: omeprazole carafate QID x 4 wks ondansatron labs- cbc-HGA1c GES Consider EGD- booking out- need to be done in OR- bariatric bed small portions at a time sx- hemetemesis/ hemoptisis- ED- Call with any questions or concerns Coding Level of Care Code New Pt Level 4 (56680) Diagnoses Nausea and vomiting R11.2 Epigastric pain R10.13 Early satiety R68.81 Anemia D64.9 Comment [id number]
== END 2023-07-06 11:57 | disposition home or self-care (01) ==
PROVIDERS: PCP Nurse Practitioner Primary Care; Visit Provider Physician Assistant
DX: R11.2 Nausea with vomiting, unspecified (principal); R10.13 Epigastric pain; R68.81 Early satiety; D64.9 Anemia, unspecified
CPT/HCPCS: 99204

== ENCOUNTER → 2023-07-06 10:58 | Outpatient (BNVA) | payer MEDICAID, SELFPAY | PROVIDERS: PCP Nurse Practitioner Primary Care; Visit Provider Physician Assistant | DX: R11.2 Nausea with vomiting, unspecified (principal); R10.13 Epigastric pain; R68.81 Early satiety; D64.9 Anemia, unspecified | CPT/HCPCS: 99212 ==

== ENCOUNTER 2023-07-06 12:15 | Outpatient (REF) | payer MEDICAID, SELFPAY ==
[2023-07-06 13:14] LABS: MANUAL DIFF FLAG NO
[2023-07-06 13:50] LABS: Basophils Percent Auto 0.3 % (0-2); Eosinophils Absolute Auto 0.2 X10*3/uL (0.0-0.4); Eosinophils Percent Auto 2.7 % (0-4); Hematocrit 38.5 % (42.0-52.0); Hemoglobin 12.6 g/dl (14.0-18.0); Imm Gran Abs Auto 0.04 X10*3/uL (0.00-0.03); Imm Gran Pct Auto 0.5 % (0.0-0.4); Lymphocytes Absolute Auto 2.2 X10*3/uL (1.2-4.9); Lymphocytes Percent Auto 28.8 % (20-40); Mean Corpuscular HGB Conc 32.7 g/dl (31.0-36.0); Mean Corpuscular Hemoglobin 27.5 pg (27.0-33.0); Mean Corpuscular Volume 83.9 fL (80.0-98.0); Mean Platelet Volume 12.7 fL (9.4-12.4); Monocytes Absolute Auto 0.7 X10*3/uL (0.1-1.2); Monocytes Percent Auto 9.3 % (2-11); Neutrophils Absolute Auto 4.4 x10*3/uL (2.0-8.3); Neutrophils Percent Auto 58.4 % (45-73); Platelet Count 124 X10*3/uL (160-400); Red Blood Count 4.59 X10*6/uL (4.60-5.80); Red Cell Distribution Width 14.3 % (11.0-16.0); White Blood Count 7.5 X10*3/uL (4.8-10.8)
== END 2023-07-06 12:16 | disposition home or self-care (01) ==
LOC: HO.HHCL 12:15
PROVIDERS: Visit Provider Nurse Practitioner Primary Care
DX: D69.6 Thrombocytopenia, unspecified (principal)
CPT/HCPCS: 36415; 85025

== ENCOUNTER 2023-08-29 12:04 | Outpatient (AMB) | payer MEDICAID, SELFPAY ==
[2023-08-29 12:05] VITALS: BP 146/67; PULSE 82; BMI 65.3
--- NOTE | 2023-08-29 12:05 | MHC.OFFVIS ---
Intake Vital Signs 08/29/23 12:05 Height 5 ft 6 in Weight 404 lb 12.299 oz BMI 65.3 BP 146/67 H Blood Pressure Location Lt brachial Position Sitting Pulse 82 Intake Visit Reasons: GASTRIC EMPTYING RESULTS Intake Note: Pt presents to the office today in follow up CC: Patient with c/o nausea, vomiting, and diarrhea. He c/o foul smell from stools and been unable to work for 4 months d/t symptoms. Quick Sketch Artist Required: Yes Quick Sketch Artist Language: Process Safety Engineering Technologist Name: Wero [email or web address] Accompanied by: Spouse Allergies No Known Drug Allergies Allergy (Unknown, Verified 08/29/23 12:08) none seafood Allergy (Unknown, Verified 07/06/23 11:01) Swelling HPI HPI Comments History of Present Illness Details A 42 y/o Ob male here for f/u after GES- he says he did not do it- because he didn't know what to do on that day-he has been rescheduled He began crying, here with his seeing his life has been interrupted with all of his medical issues to include his GI problems. He has frequent diarrhea. Eats certain things have nausea vomiting. This has been ongoing for years but has become worse over the past many months. He is taking medications- ran out of carafate- -taking omeprazole QD Blood sugars are in fairly good range per his report He has nausea, he has vomiting diffuse abdominal pain diarrhea, no fever or chills. No weight loss PFSH Medical History Narcotic dependence Thrombocytopenia Carpal tunnel syndrome Sleep apnea Pre-op evaluation Hx of migraines BETSY on CPAP Pre-op evaluation HTN (hypertension), benign Insulin dependent type 1 diabetes mellitus Morbid obesity Shoulder dislocation Diabetes Surgical History Hx of hernia repair Hx of appendectomy Family History Mother No problems noted. Brother No problems noted. Daughter No problems noted. Daughter No problems noted. Daughter No problems noted. Son No problems noted. Son No problems noted. 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 Review of Systems Const All systems reviewed & are unremarkable except as noted in HPI and below ENT Denies dysphagia Card Denies chest pain and Reports dyspnea on exertion Resp Reports dyspnea on exertion GI Reports abdominal pain (Nonspecific), Denies hematochezia, Reports constipation, Denies dysphagia, Reports heartburn, Reports diarrhea, Reports loose stools, Reports nausea, Reports vomiting and Denies hematemesis Musc Reports back pain Psych Reports anxiety, Reports depression, Denies homicidal ideation and Denies suicidal ideation Physical Exam Vital Signs: Last Vital Signs Pulse 82 08/29/23 12:05 BP 146/67 H 08/29/23 12:05 BMI result Body Mass Index 65.3 Const General: cooperative Nutritional Appearance: obese Orientation/consciousness: patient oriented x3 Limitations: language barrier Resp Effort & Inspection: normal respiratory effort and able to speak in complete sentences Auscultation: no rales, no rhonchi and no wheezes Cardio Rate: regular rate Rhythm: regular rhythm Heart sounds: S1 normal heart sound present and S2 normal heart sound present GI Inspection: Yes Abdominal panniculus present and Yes obesity Palpation (GI): Soft to palpation and nontender Auscultation: normal bowel sounds Skin General skin exam: no rashes or lesions noted Neuro General: patient oriented x3 Extrem General: Yes full ROM Psych Speech and movement: Clear speech present Affect: Sad affect present (Tearful) Attitude: cooperative Thought process: Normal thought process present Thought content: Normal thought content present Assessment & Plan Assessment & Plan (1) Early satiety: Comment: DM-r/o gastroparesis Code(s): R68.81 - Early satiety Plan: GES (2) Anemia: Comment: Mike FREEMAN- Code(s): D64.9 - Anemia, unspecified Plan: EGD colonoscopy (3) Diarrhea: Code(s): R19.7 - Diarrhea, unspecified Plan: EGD colonoscopy (4) Diabetes: Code(s): E11.9 - Type 2 diabetes mellitus without complications Plan: Half dose insulin evening before Plan cont.ppi GES- pending EGD/ colon- [facility] Bariatric bed- Anesthesia consult-BETSY, obesity, 1/2 dose insulin jayda before no DM meds a.m of Reassured Orders: Orders EGD/Bristol Combo - GI Use Only Today D64.9 - Anemia, unspecified, E11.9 - Type 2 diabetes mellitus without complications, R19.7 - Diarrhea, unspecified, R68.81 - Early satiety Medications: New bisacodyl (Dulcolax (bisacodyl)) Day before procedure @ 12 noon Take 4 tablets by mouth followed by large glass of water 20 mg (4 x 5 mg) PO ONCE 1 day PRN 4 tabs 0RF colonoscopy prep Z12.11 - Encounter for screening for malignant neoplasm of colon polyethylene glycol 3350 (Miralax) Take as directed by mouth the day before your procedure. 238 grams PO ONCE 1 day PRN 238 grams 0RF laxative effect Patient Instructions: cont.ppi GES- pending EGD/ colon- [facility] MiraLax Gatorade prep, reviewed literature given Bariatric bed- Anesthesia consult-BETSY, obesity, 1/2 dose insulin jayda before no DM meds a.m of Reassured Coding Level of Care Code Est Pt Level 4 (53539) Diagnoses Early satiety R68.81 Anemia D64.9 Diarrhea R19.7 Diabetes E11.9 Time Spent (min) 30 Comment [id number]
== END 2023-08-29 12:47 | disposition home or self-care (01) ==
PROVIDERS: PCP Nurse Practitioner Primary Care; Visit Provider Physician Assistant
DX: R68.81 Early satiety (principal); D64.9 Anemia, unspecified; R19.7 Diarrhea, unspecified; E11.9 Type 2 diabetes mellitus without complications
CPT/HCPCS: 99214

== ENCOUNTER → 2023-08-29 12:04 | Outpatient (BNVA) | payer MEDICAID, SELFPAY | PROVIDERS: PCP Nurse Practitioner Primary Care; Visit Provider Physician Assistant | DX: R68.81 Early satiety (principal); D64.9 Anemia, unspecified; R19.7 Diarrhea, unspecified; E11.9 Type 2 diabetes mellitus without complications | CPT/HCPCS: 99212 ==

== ENCOUNTER → 2023-09-06 07:32 | Outpatient (REF) | payer MEDICAID, SELFPAY | LOC: HO.NUCMED 07:32 | PROVIDERS: PCP Nurse Practitioner Primary Care; Visit Provider Physician Assistant | DX: Z13.89 Encounter for screening for other disorder (principal) ==

== ENCOUNTER 2023-09-22 10:59 | Outpatient (AMB) | payer MEDICAID, SELFPAY ==
[2023-09-22 11:49] VITALS: BMI 65.2
--- NOTE | 2023-09-22 11:49 | MHC.OFFVIS ---
Vital Signs 09/22/23 11:49 Height 5 ft 6 in Weight 404 lb BMI 65.2 Intake Visit Reasons: ov- RT knee MRI review Intake Note: Ross is a 42 year old male who presents today for an MRI review of the right knee. His MRI was done at [facility] on 09/02/23. Patient was going down the stairs on 05/10/23 when he heard a popping sound of the knee and the knee gave out Allergies No Known Drug Allergies Allergy (Unknown, Verified 09/22/23 11:50) none seafood Allergy (Unknown, Verified 09/22/23 11:50) Swelling HPI HPI ov- RT knee MRI review: Details: Ross is a 42 year old male who presents today for an MRI review of the right knee. His MRI was done at [facility] on 09/02/23. Patient was going down the stairs on 05/10/23 when he heard a popping sound of the knee and the knee gave out Impression: 1. Interpretation is made within the technical confines of the inhomogeneous fat saturation and motion artifacts 2. Radial tear neat the posterior tibial attachment of the medial meniscus. 3. Diffuse thickening and intermediate signal of the ACL, which may reflect mucoid degeneration or sequela of prior trauma 4. Degenerative change with the chondral loss greatest in the medial compartment PFSH Medical History Narcotic dependence Thrombocytopenia Carpal tunnel syndrome Sleep apnea Pre-op evaluation Hx of migraines BETSY on CPAP Pre-op evaluation HTN (hypertension), benign Insulin dependent type 1 diabetes mellitus Morbid obesity Shoulder dislocation Diabetes Surgical History Hx of hernia repair Hx of appendectomy Family History Mother No problems noted. Brother No problems noted. Daughter No problems noted. Daughter No problems noted. Daughter No problems noted. Son No problems noted. Son No problems noted. 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 Interpretation is made within the technical confines of the inhomogeneous fat saturation and motion artifacts 2. Radial tear neat the posterior tibial attachment of the medial meniscus. 3. Diffuse thickening and intermediate signal of the ACL, which may reflect mucoid degeneration or sequela of prior trauma 4. Degenerative change with the chondral loss greatest in the medial compartment Assessment & Plan Assessment & Plan (1) Tear of medial meniscus of right knee, current: Code(s): S83.241A - Other tear of medial meniscus, current injury, right knee, initial encounter Category: Medical Plan: This is a 42 yo morbidly obese M with a medial meniscus root tear. I recommend knee arthroscopy with possible medial meniscal root repair. I explained this to him. I explained the importance of the meniscal root and the possibility of medial arthrosis or unrepairable tear. I discussed the risks benefits and alternatives including but not limited to the risk of pain, infection, stiffness, need for further surgery as well as potential medical complications such as blood clots, pulmonary embolism and cardiac complications. He expressed understanding and we will proceed forward accordingly Plan Our surgical attendant will contact him for surgery, plan is Right Medial Meniscus Repair Coding Level of Care Code Est Pt Level 4 (59169) Diagnoses Tear of medial meniscus of right knee, current S83.241A
== END 2023-09-22 12:43 | disposition home or self-care (01) ==
PROVIDERS: PCP Nurse Practitioner Primary Care; Visit Provider Orthopaedic Surgery
DX: S83.241A Other tear of medial meniscus, current injury, right knee, initial encounter (principal)
CPT/HCPCS: 99214

== ENCOUNTER → 2023-09-22 10:59 | Outpatient (BNVA) | payer MEDICAID, SELFPAY | PROVIDERS: PCP Nurse Practitioner Primary Care; Visit Provider Orthopaedic Surgery | DX: S83.241A Other tear of medial meniscus, current injury, right knee, initial encounter (principal) | CPT/HCPCS: 99212 ==

== ENCOUNTER 2023-10-11 06:02 | Outpatient (REF) | payer MEDICAID, SELFPAY ==
[2023-10-11 06:22] LABS: MANUAL DIFF FLAG NO
[2023-10-11 08:02] LABS: Basophils Absolute Auto 0.1 X10*3/uL (0.0-0.2); Basophils Percent Auto 0.7 % (0-2); Eosinophils Absolute Auto 0.3 X10*3/uL (0.0-0.4); Eosinophils Percent Auto 4.3 % (0-4); Hematocrit 38.3 % (42.0-52.0); Hemoglobin 12.5 g/dl (14.0-18.0); Imm Gran Abs Auto 0.07 X10*3/uL (0.00-0.03); Lymphocytes Absolute Auto 2.2 X10*3/uL (1.2-4.9); Lymphocytes Percent Auto 31.3 % (20-40); Mean Corpuscular HGB Conc 32.6 g/dl (31.0-36.0); Mean Corpuscular Hemoglobin 27.6 pg (27.0-33.0); Mean Corpuscular Volume 84.5 fL (80.0-98.0); Mean Platelet Volume 12.9 fL (9.4-12.4); Monocytes Absolute Auto 0.6 X10*3/uL (0.1-1.2); Monocytes Percent Auto 7.9 % (2-11); Neutrophils Absolute Auto 3.8 x10*3/uL (2.0-8.3); Neutrophils Percent Auto 54.8 % (45-73); Platelet Count 122 X10*3/uL (160-400); Red Blood Count 4.53 X10*6/uL (4.60-5.80); Red Cell Distribution Width 13.3 % (11.0-16.0); White Blood Count 6.9 X10*3/uL (4.8-10.8)
[2023-10-11 08:05] LABS: Estimated Average Glucose 169 mg/dL; Hemoglobin A1c % 7.5 % (<6.0)
[2023-10-11 08:51] LABS: Alanine Aminotransferase 25 U/L (0-40); Albumin Level 3.5 g/dL (3.5-5.0); Alkaline Phosphatase 73 U/L (39-117); Aspartate Amino Transferase 22 U/L (5-37); Bilirubin Direct 0.2 mg/dL (0.0-0.5); Bilirubin Total 0.6 mg/dL (0.0-1.0); Iron 59 mcg/dL (45-160); Percent Iron Saturation 23 % (15-50); Total Iron Binding Capacity 254 mcg/dL (228-428); Unsaturated Iron Binding 195 ug/dL
[2023-10-11 09:00] LABS: ~HepC Num1 0.08 S/CO (0.00-0.79); ~Hepatitis C Antibody Nonreactive (Nonreactive)
[2023-10-11 09:07] LABS: Thyroid Stimulating Hormone 2.64 uIU/mL (0.32-4.0)
[2023-10-11 09:14] LABS: Folate 9.6 ng/mL (> or = 4.0); Vitamin B12 453 pg/mL (200-900)
== END 2023-10-11 06:03 | disposition home or self-care (01) ==
LOC: HO.LAB 06:02
PROVIDERS: Absent Provider Physician Assistant; PCP Nurse Practitioner Primary Care; Visit Provider Nurse Practitioner Primary Care
DX: R74.8 Abnormal levels of other serum enzymes (principal); D64.9 Anemia, unspecified; E11.69 Type 2 diabetes mellitus with other specified complication; E78.5 Hyperlipidemia, unspecified; R10.13 Epigastric pain; I10 Essential (primary) hypertension
CPT/HCPCS: 36415; 80076; 82607; 82746; 83036; 83540; 84443; 85025; 86803

== ENCOUNTER → 2023-10-19 08:47 | Outpatient (REF) | payer MEDICAID, SELFPAY | LOC: HO.CARD 08:47 | PROVIDERS: PCP Nurse Practitioner Primary Care; Visit Provider Nurse Practitioner Primary Care | DX: Z13.89 Encounter for screening for other disorder (principal) ==

== ENCOUNTER 2023-10-24 07:30 | Outpatient (REF) | payer MEDICAID, SELFPAY ==
--- NOTE | ~2023-10-24 | US_ITS ---
EXAMINATION: US ABDOMEN COMPLETE CLINICAL INFORMATION: Generalized abdominal pain. COMPARISON: Ultrasound abdomen complete 12/09/2021. Ultrasound abdomen limited 01/20/2021. CT abdomen and pelvis 01/20/2021. TECHNIQUE: Real-time imaging of the abdominal viscera. Technically limited study secondary to body habitus. FINDINGS: PANCREAS: Normal head and body, the tail is obscured by bowel gas. ABDOMINAL AORTA: The proximal and distal segments are normal in caliber. The mid abdominal aorta is obscured by bowel gas. INFERIOR VENA CAVA: Visualized portions are normal. LIVER: The liver is enlarged measuring 20.0 cm. The liver contour is normal. There is diffuse increased liver parenchymal echogenicity, consistent with hepatic steatosis. No focal hepatic lesion. There is no intrahepatic biliary duct dilatation seen. GALLBLADDER: Normal. The gallbladder is physiologically distended without evidence of stones, sludge, polyps, wall thickening or pericholecystic fluid. No sonographic Nichols's sign. COMMON BILE DUCT: Normal in caliber measuring 0.3 cm in diameter. RIGHT KIDNEY: Normal. No hydronephrosis. No renal calculi or focal parenchymal lesions. The kidney measures 11.4 cm in maximum dimension. Previously described mid renal cyst appears as a Column of Morgan today. LEFT KIDNEY: Normal. No hydronephrosis. No renal calculi or focal parenchymal lesions. The kidney measures 12.3 cm in maximum dimension. SPLEEN: Normal. The spleen measures 11.7 cm in maximum dimension. FREE FLUID: None. US/US abdomen complete IMPRESSION: 1. Hepatomegaly with hepatic steatosis. 2. The tail of the pancreas and mid abdominal aorta are obscured by bowel gas.
== END 2023-10-24 07:31 | disposition home or self-care (01) ==
LOC: HO.US 07:30
PROVIDERS: PCP Nurse Practitioner Primary Care; Visit Provider Nurse Practitioner Primary Care
DX: R10.84 Generalized abdominal pain (principal); R74.8 Abnormal levels of other serum enzymes
CPT/HCPCS: 76700

== ENCOUNTER 2023-10-25 11:06 | Outpatient (AMB) | payer MEDICAID, SELFPAY ==
--- NOTE | 2023-10-25 11:34 | MHC.OFFVIS ---
Vital Signs 10/25/23 11:47 Height 5 ft 6 in Weight 404 lb BMI 65.2 Intake Visit Reasons: Preop RT Knee MMR 11/01/23 NE Intake Note: Ross a 42 year old male who presents today for a preoperative right knee MMR on 11/01/23 NE. Pain management agreement reviewed and signed. Canal Tender Name: [id number] Allergies No Known Drug Allergies Allergy (Unknown, Verified 10/26/23 14:27) none seafood Allergy (Unknown, Verified 10/26/23 14:27) Swelling HPI HPI Preop RT Knee MMR 11/01/23 NE: Details: 42 yo male presents to the office today for pre op appt Right knee MMR with Dr Chowdary. He mentioned he was suppose to have a stress test prior to surgery but was unable to do this until he was seen by pain mgmnt for an injection. [facility] Medical History Narcotic dependence Thrombocytopenia Carpal tunnel syndrome Sleep apnea Pre-op evaluation Hx of migraines BETSY on CPAP Pre-op evaluation HTN (hypertension), benign Insulin dependent type 1 diabetes mellitus Morbid obesity Shoulder dislocation Diabetes Surgical History Hx of hernia repair Hx of appendectomy Family History Mother No problems noted. Brother No problems noted. Daughter No problems noted. Daughter No problems noted. Daughter No problems noted. Son No problems noted. Son No problems noted. 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 Review of Systems Const All systems reviewed & are unremarkable except as noted in HPI and below Physical Exam Vital Signs: BMI result Body Mass Index 65.2 Const Other: morbidly obese General: cooperative and no acute distress Orientation/consciousness: patient oriented x3 Neck Neck: Yes normal visual inspection and Yes no lymphadenopathy Resp Effort & Inspection: normal respiratory effort and able to speak in complete sentences Cardio Peripheral pulses: Peripheral pulses 2+ throughout GI Inspection: Yes normal to inspection Palpation (GI): Soft to palpation Skin General skin exam: no rashes or lesions noted Neuro General: patient oriented x3 Extrem Other: Medial sided pain with flexion > 60 deg medial joint line ttp Assessment & Plan Assessment & Plan (1) Tear of medial meniscus of right knee, current: Code(s): S83.241A - Other tear of medial meniscus, current injury, right knee, initial encounter Category: Medical Plan Given his PCP?s recommendation for stress test, the surgery has been postponed. Once complete, he will see me back and we will proceed with rebooking. Patient Instructions: Scribed for Jerod Nichols PA-C, by Ralph Cordova medical front desk specialist, on 10/25/2023 at 11:30 AM EST.? I, Jerod Nichols PA-C, have personally reviewed and agree with the information entered by the scribe. Coding Level of Care Code Est Pt Level 3 (63847) Diagnoses Tear of medial meniscus of right knee, current S83.241A
[2023-10-25 11:47] VITALS: BMI 65.2
== END 2023-10-25 12:47 | disposition home or self-care (01) ==
PROVIDERS: PCP Nurse Practitioner Primary Care; Visit Provider Physician Assistant
DX: S83.241A Other tear of medial meniscus, current injury, right knee, initial encounter (principal)
CPT/HCPCS: 99213

== ENCOUNTER → 2023-10-25 11:06 | Outpatient (BNVA) | payer MEDICAID, SELFPAY | PROVIDERS: PCP Nurse Practitioner Primary Care; Visit Provider Physician Assistant | DX: S83.241A Other tear of medial meniscus, current injury, right knee, initial encounter (principal) | CPT/HCPCS: 99212 ==

== ENCOUNTER 2023-10-26 14:13 | Outpatient (AMB) | payer MEDICAID, SELFPAY ==
[2023-10-26 14:26] VITALS: BP 144/66; PULSE 84; RESP 18; O2SAT 97; BMI 65.4
--- NOTE | 2023-10-26 14:26 | A.OFFVIS_ITS ---
Vital Signs 10/26/23 14:26 Height 5 ft 6 in Weight 405 lb BMI 65.4 BP 144/66 H Blood Pressure Location Lt brachial Position Sitting Respiration 18 Pulse 84 Pulse Source Pulse Oximeter Pulse Oximetry (%) 97 Oxygen Delivery Method Room Air Intake Visit Reasons: Injection Discussion Intake Note: Patient comes in for injection discussion. Reports pain 03/07. Allergies No Known Drug Allergies Allergy (Unknown, Verified 10/26/23 14:27) none seafood Allergy (Unknown, Verified 10/26/23 14:27) Swelling HPI Comments Details: Mr. Navarrete is back in my office after a left intra-articular shoulder injection which was performed of on 08/23/2022. He reports significant pain reduction in the left shoulder after the injection he reports 4 months of pain relief. He requests me to schedule yet another intra-articular shoulder injection. I will schedule it without sedation. He already received 2 intra-articular left shoulder steroid injections. Prior:? complaining on the pain in the left shoulder.? He reports that this pain was bothering him for many years but it was mild.? Two months ago the pain became severe.? He went for Orthopedic surgery office and Was recommended to have intra-articular shoulder steroid injection.? On the x-ray it was become demonstrating a loose body inside of his shoulder joint.? The dictation of the x-rays as below.? 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 For pain control he is taking meloxicam.? He never was a subject of physical therapy.? He had x-ray as dictated below [facility] Medical History (Reviewed 09/22/23 @ 11:55 by Rachell Alejo [facility]) Narcotic dependence Thrombocytopenia Carpal tunnel syndrome Sleep apnea Pre-op evaluation Hx of migraines BETSY on CPAP Pre-op evaluation HTN (hypertension), benign Insulin dependent type 1 diabetes mellitus Morbid obesity Shoulder dislocation Diabetes Surgical History Hx of hernia repair Hx of appendectomy Family History (Reviewed 09/22/23 @ 11:55 by Rachell Alejo [facility]) Mother No problems noted. Brother No problems noted. Daughter No problems noted. Daughter No problems noted. Daughter No problems noted. Son No problems noted. Son No problems noted. 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 Review of Systems Const All systems reviewed & are unremarkable except as noted in HPI and below ENT Reports Normal hearing present Neuro Reports Normal hearing present and Denies confusion Psych Denies confusion Physical Exam Vital Signs: Last Vital Signs Pulse 84 10/26/23 14:26 Resp 18 10/26/23 14:26 BP 144/66 H 10/26/23 14:26 Pulse Ox 97 10/26/23 14:26 Oxygen Delivery Method Room Air 10/26/23 14:26 BMI result Body Mass Index 65.4 Const General: No confusion Orientation/consciousness: No confusion HEENT Head: Yes normal to inspection, Yes normocephalic and Yes atraumatic Eyes General: appearance normal, both eyes and all related structures Resp Effort & Inspection: normal respiratory effort and able to speak in complete sentences Cardio Rate: regular rate Peripheral pulses: Peripheral pulses 2+ throughout GI Palpation (GI): Soft to palpation Skin Lesions: no lesions Rashes: no rashes Neuro General: No confusion Cranial nerves: Yes Normal hearing present Extrem Other: Left shoulder: Able to forward flexion to 25 degrees. Abduction to 25 degrees. External to neutral with little motion. Unable to do any further testing due to pain and limited ROM. Assessment & Plan Assessment & Plan (1) Osteoarthritis of left shoulder: Code(s): M19.012 - Primary osteoarthritis, left shoulder Category: Medical Plan: (2) Morbid obesity: Code(s): E66.01 - Morbid (severe) obesity due to excess calories Category: Medical Plan Good results of to intra-articular shoulder injections. Each injection lasted up to 4 months of pain relief more than 75%. Now the patient experiences pain in the left shoulder again and requests me to perform the injection. I will schedule him for the procedure. We will do this procedure without sedation. Special bed is needed the patient is more than 400 lb. Coding Level of Care Code Est Pt Level 3 (98130) Diagnoses Osteoarthritis of left shoulder M19.012 Morbid obesity E66.01
== END 2023-10-26 14:48 | disposition home or self-care (01) ==
PROVIDERS: PCP Nurse Practitioner Primary Care; Referring Provider Nurse Practitioner Primary Care; Visit Provider Anesthesiology
DX: M19.012 Primary osteoarthritis, left shoulder (principal); E66.01 Morbid (severe) obesity due to excess calories
CPT/HCPCS: 99213

== ENCOUNTER → 2023-10-26 14:13 | Outpatient (BNVA) | payer MEDICAID, SELFPAY | PROVIDERS: PCP Nurse Practitioner Primary Care; Visit Provider Anesthesiology | DX: M19.012 Primary osteoarthritis, left shoulder (principal); E66.01 Morbid (severe) obesity due to excess calories; Z68.44 Body mass index [BMI] 60.0-69.9, adult | CPT/HCPCS: 99212 ==

== ENCOUNTER 2023-11-27 12:23 | Outpatient (REF) | payer MEDICAID, SELFPAY ==
[2023-11-27 14:07] LABS: Anion Gap 11 (12-20); Blood Urea Nitrogen 11 mg/dL (9-16); C Reactive Protein 0.99 mg/dL (< or = 0.50); Calcium 9.2 mg/dL (8.4-10.2); Carbon Dioxide 26 mmol/L (22-29); Chloride 103 mmol/L (96-108); Estimated Glomerular Filt Rate > 60; Glucose Random 205 mg/dL (60-115); Potassium 4.3 mmol/L (3.3-5.1); Sodium 136 mmol/L (135-145)
[2023-11-27 14:09] LABS: Rheumatoid Factor < 13.0 IU/mL (<15.0)
[2023-11-27 14:27] LABS: Creatinine Urine 71.18 mg/dL; Microalbum/Creatinine Ratio Ur 1973.8 ug/mg cr (<30)
[2023-11-27 14:33] LABS: Erythrocyte Sedimentation Rate 40 MM/HR (0-15)
[2023-12-04 15:12] LABS: Anti Nuclear Antibody Screen NEGATIVE (NEGATIVE)
== END 2023-11-27 12:24 | disposition home or self-care (01) ==
LOC: HO.HHCL 12:23
PROVIDERS: Visit Provider Nurse Practitioner Primary Care
DX: Z01.818 Encounter for other preprocedural examination (principal); M25.50 Pain in unspecified joint; E11.69 Type 2 diabetes mellitus with other specified complication; E78.5 Hyperlipidemia, unspecified
CPT/HCPCS: 36415; 80048; 82043; 82570; 85652; 86038; 86140; 86431

== ENCOUNTER 2023-12-12 07:28 | Outpatient (REF) | payer MEDICAID, SELFPAY | END 2023-12-12 07:29 | disposition home or self-care (01) | LOC: CF 07:28 | PROVIDERS: Visit Provider Anesthesiology | DX: M19.012 Primary osteoarthritis, left shoulder (principal); E66.01 Morbid (severe) obesity due to excess calories; K08.89 Other specified disorders of teeth and supporting structures; K04.01 Reversible pulpitis | CPT/HCPCS: 99212 ==

== ENCOUNTER 2023-12-12 11:54 | Outpatient (AMB) | payer MEDICAID, SELFPAY ==
--- NOTE | 2023-12-12 12:28 | MHC.OFFVIS ---
Vital Signs 12/12/23 13:18 Comment Pt refuse vitals Intake Visit Reasons: Left Intra-Articular shoulder injection Legal Nurse Consultant Required: Yes Legal Nurse Consultant Services: Legal Nurse Consultant Present Legal Nurse Consultant Name: Rajwinder Dodd [id number] Allergies No Known Drug Allergies Allergy (Unknown, Verified 12/12/23 13:19) none seafood Allergy (Unknown, Verified 12/12/23 13:19) Swelling HPI Comments Details: Mr. Navarrete came today to the operating room to perform yet another intra-articular shoulder steroid injection. The patient reported to us that he has dental pain. He was ordered antibiotics by his dentist because they were not able to perform the procedure of the tooth extraction under local anesthesia and patient is not very healthy to go for the procedure under general anesthesia: He has renal failure and uncontrolled diabetes. Prolonged and detailed conversation was held with the patient today using [employer] medical interpreter. I explained to the patient that steroid is immunosuppresant and can exacerbate infection in his tooth. I strongly recommended the patient to complete his the infection treatment with his dentist and somehow either fix this tooth or extracted. After that he will be able to go for the procedure. I offered him today to have diagnostic injection only with local anesthetic but I warned him that this probably will work only for several days maximum. Patient expressed understanding he does not want to go for diagnostic injection. He decided to go back to the dentist his appointment is scheduled on Monday. is back in my office after a left intra-articular shoulder injection which was performed of on 08/23/2022. He reports significant pain reduction in the left shoulder after the injection he reports 4 months of pain relief. He requests me to schedule yet another intra-articular shoulder injection. I will schedule it without sedation. He already received 2 intra-articular left shoulder steroid injections. Prior:? complaining on the pain in the left shoulder.? He reports that this pain was bothering him for many years but it was mild.? Two months ago the pain became severe.? He went for Orthopedic surgery office and Was recommended to have intra-articular shoulder steroid injection.? On the x-ray it was become demonstrating a loose body inside of his shoulder joint.? The dictation of the x-rays as below.? 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 For pain control he is taking meloxicam.? He never was a subject of physical therapy.? He had x-ray as dictated below [facility] Medical History Narcotic dependence Thrombocytopenia Carpal tunnel syndrome Sleep apnea Pre-op evaluation Hx of migraines BETSY on CPAP Pre-op evaluation HTN (hypertension), benign Insulin dependent type 1 diabetes mellitus Morbid obesity Shoulder dislocation Diabetes Surgical History Hx of hernia repair Hx of appendectomy Family History Mother No problems noted. Brother No problems noted. Daughter No problems noted. Daughter No problems noted. Daughter No problems noted. Son No problems noted. Son No problems noted. 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 Review of Systems Const All systems reviewed & are unremarkable except as noted in HPI and below ENT Reports Normal hearing present Neuro Reports Normal hearing present and Denies confusion Psych Denies confusion Physical Exam Const General: No confusion Orientation/consciousness: No confusion HEENT Head: Yes normal to inspection, Yes normocephalic and Yes atraumatic Eyes General: appearance normal, both eyes and all related structures Resp Effort & Inspection: normal respiratory effort and able to speak in complete sentences Cardio Rate: regular rate Peripheral pulses: Peripheral pulses 2+ throughout GI Palpation (GI): Soft to palpation Skin Lesions: no lesions Rashes: no rashes Neuro General: No confusion Cranial nerves: Yes Normal hearing present Extrem Other: Left shoulder: Able to forward flexion to 25 degrees. Abduction to 25 degrees. External to neutral with little motion. Unable to do any further testing due to pain and limited ROM. Assessment & Plan Assessment & Plan (1) Osteoarthritis of left shoulder: Code(s): M19.012 - Primary osteoarthritis, left shoulder Category: Medical Plan: (2) Morbid obesity: Code(s): E66.01 - Morbid (severe) obesity due to excess calories Category: Medical (3) Toothache: Code(s): K08.89 - Other specified disorders of teeth and supporting structures Category: Medical (4) Tooth pulpitis: Code(s): K04.01 - Reversible pulpitis Category: Medical Plan The procedure was not performed today. Patient recommended to complete the treatment of his pulpitis. I will see this patient as needed when his tooth is extracted and completely healed. Orders: Orders FL guidance in treatment room Today M19.012 - Primary osteoarthritis, left shoulder Patient Instructions: I here by testify that I spent 32 minutes in conversation with this patient as well as planning his care and organizing this note. Coding Level of Care Code Est Pt Level 4 (19074) Diagnoses Osteoarthritis of left shoulder M19.012 Morbid obesity E66.01 Toothache K08.89 Tooth pulpitis K04.01
== END 2023-12-12 13:03 | disposition home or self-care (01) ==
PROVIDERS: PCP Nurse Practitioner Primary Care; Visit Provider Anesthesiology
DX: M19.012 Primary osteoarthritis, left shoulder (principal); E66.01 Morbid (severe) obesity due to excess calories; K08.89 Other specified disorders of teeth and supporting structures; K04.01 Reversible pulpitis
CPT/HCPCS: 99214

== ENCOUNTER 2023-12-13 09:00 | Outpatient (REF) | payer MEDICAID, SELFPAY ==
--- NOTE | ~2023-12-13 | US_ITS ---
EXAMINATION: RENAL ARTERY DOPPLER ULTRASOUND CLINICAL INFORMATION: Worsening albuminuria COMPARISON: Abdominal ultrasound December 13, 2021 TECHNIQUE: Renal ultrasound. Doppler ultrasound (spectral analysis and color Doppler) of the renal arteries and aorta were performed. FINDINGS: The right kidney measures 12.3 x 5.2 x 6.2 cm in sagittal, AP and transverse dimensions. The left kidney measures 14.2 x 5.7 x 6 cm in sagittal, AP and transverse dimensions. Simple cyst in the mid right kidney measuring 1 x 0.6 x 1.3 cm. Simple cyst in the left mid kidney measuring 1.1 x 0.7 x 1.2 cm, unchanged. RENAL ARTERY VELOCITIES: Right: Proximally: Not visualized Mid: 119 cm/s. Distal: 100 cm/s. Left: Proximally: Not visualized Mid: 125 cm/s. Distally: 112 cm/s. INTERLOBAR RESISTIVE INDICES: Right: Upper: 0.66 Mid: 0.69 Lower: 0.71 Left: Upper: 0.8 Mid: 0.71 Lower: 0.75 Mid aortic velocity: 90.1 cm/s. US/US renal BI IMPRESSION: 1. The kidneys are normal in appearance. Small simple cysts bilaterally requiring no further imaging follow-up. 2. There is no evidence of renal artery stenosis.
--- NOTE | ~2023-12-13 | US_ITS ---
EXAMINATION: RENAL ARTERY DOPPLER ULTRASOUND CLINICAL INFORMATION: Worsening albuminuria COMPARISON: Abdominal ultrasound December 13, 2021 TECHNIQUE: Renal ultrasound. Doppler ultrasound (spectral analysis and color Doppler) of the renal arteries and aorta were performed. FINDINGS: The right kidney measures 12.3 x 5.2 x 6.2 cm in sagittal, AP and transverse dimensions. The left kidney measures 14.2 x 5.7 x 6 cm in sagittal, AP and transverse dimensions. Simple cyst in the mid right kidney measuring 1 x 0.6 x 1.3 cm. Simple cyst in the left mid kidney measuring 1.1 x 0.7 x 1.2 cm, unchanged. RENAL ARTERY VELOCITIES: Right: Proximally: Not visualized Mid: 119 cm/s. Distal: 100 cm/s. Left: Proximally: Not visualized Mid: 125 cm/s. Distally: 112 cm/s. INTERLOBAR RESISTIVE INDICES: Right: Upper: 0.66 Mid: 0.69 Lower: 0.71 Left: Upper: 0.8 Mid: 0.71 Lower: 0.75 Mid aortic velocity: 90.1 cm/s. US/US renal doppler IMPRESSION: 1. The kidneys are normal in appearance. Small simple cysts bilaterally requiring no further imaging follow-up. 2. There is no evidence of renal artery stenosis.
== END 2023-12-13 09:01 | disposition home or self-care (01) ==
LOC: HO.US 09:00
PROVIDERS: PCP Nurse Practitioner Primary Care; Visit Provider Nurse Practitioner Primary Care
DX: R80.9 Proteinuria, unspecified (principal); E11.29 Type 2 diabetes mellitus with other diabetic kidney complication; I10 Essential (primary) hypertension
CPT/HCPCS: 36415; 76775; 81001; 84165; 86038; 86160; 86225; 86592; 87389; 93975

== ENCOUNTER 2023-12-13 11:43 | Outpatient (REF) | payer MEDICAID, SELFPAY ==
[2023-12-13 13:32] LABS: Appearance Urine Clear; Color Urine Yellow; Glucose Urine UA Negative (Negative); Leukocyte Esterase Urine Negative (Negative); Nitrite Urine Negative (Negative); PH 7.5 (5.0-9.0); UMIC TRIGGER UA YES; Urine Blood Negative (Negative); Urine Ketones Negative (Negative); Urine Protein 300 (3+) mg/dL (Neg-Trace)
[2023-12-13 13:50] LABS: Bacteria Urine None Seen (None Seen); Hyaline Casts Urine 0-2 /LPF (0-2); RBC Urine 0-2 /HPF (0-2); Squamous Epithelial Cell Urine 0-2 /HPF (0-2); WBC Urine 0-5 /HPF (0-5)
[2023-12-13 13:57] LABS: HIV AB/AG Nonreactive (Nonreactive); HIV Num 1 0.05 S/CO (0.00-0.99)
[2023-12-14 10:59] LABS: Complement C3 159 mg/dL (82-185)
[2023-12-14 20:08] LABS: Anti DNA DS Antibody <1 IU/mL
[2023-12-14 22:28] LABS: Prot Elec - Albumin 3.6 g/dL (3.8-4.8); Prot Elec - Alpha1 0.3 g/dL (0.2-0.3); Prot Elec - Alpha2 0.7 g/dL (0.5-0.9); Prot Elec - Beta 1 0.5 g/dL (0.4-0.6); Prot Elec - Beta 2 0.6 g/dL (0.2-0.5); Prot Elec - Gamma 1.3 g/dL (0.8-1.7)
[2023-12-15 09:04] LABS: RPR Rapid Plasma Reagin NON-REACTIVE (NON-REACTIVE)
[2023-12-21 11:03] LABS: Anti Nuclear Antibody Screen NEGATIVE (NEGATIVE)
== END 2023-12-13 11:44 | disposition home or self-care (01) ==
LOC: HO.HHCL 11:43
PROVIDERS: Visit Provider Nurse Practitioner Primary Care
DX: Z13.89 Encounter for screening for other disorder (principal)
CPT/HCPCS: 36415; 81001; 84165; 86038; 86160; 86225; 86592; 87389

== ENCOUNTER → 2023-12-20 08:38 | Day surgery (SDC) | payer MEDICAID, SELFPAY ==
[2023-12-18 08:27] VITALS: BMI 65.2
--- NOTE | 2023-12-19 09:33 | P.CONAN_ITS ---
HPI - Anesthesia Eval Consult details Narrative: 43yo M for Upper Endoscopy and Colonoscopy BMI: 65 Suboxone daily PMFSH Active Problems Active Problems: All Active Problems Tooth pulpitis (Acute) Toothache (Acute) Tear of medial meniscus of right knee, current (Acute) Diarrhea (Acute) Epigastric pain (Acute) Early satiety (Acute) Internal derangement of right knee (Acute) Leg pain (Acute) Varicose veins of right lower extremity with inflammation (Acute) Diabetes (Acute) Hyperlipidemia associated with type 2 diabetes mellitus (Acute) HTN (hypertension) with goal to be determined (Acute) Migraines, neuralgic (Acute) Morbid obesity (Acute) Sleep apnea treated with continuous positive airway pressure (CPAP) (Acute) Anemia (Acute) Osteoarthritis of left shoulder (Acute) Arthritis (Acute) Past Medical History Medical History Narcotic dependence Thrombocytopenia Carpal tunnel syndrome Sleep apnea Pre-op evaluation Hx of migraines BETSY on CPAP Pre-op evaluation HTN (hypertension), benign Insulin dependent type 1 diabetes mellitus Morbid obesity Shoulder dislocation Diabetes Family History Family History Mother No problems noted. Brother No problems noted. Daughter No problems noted. Daughter No problems noted. Daughter No problems noted. Son No problems noted. Son No problems noted. 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 Meds Allergies Allergy/AdvReac Type Severity Reaction Status Date / Time No Known Drug Allergies Allergy Unknown none Verified 12/12/23 13:19 seafood Allergy Unknown Swelling Verified 12/12/23 13:19 Home Medications ?Medication ?Instructions ?Recorded ?Confirmed ?Last Taken ?Type insulin glargine 100 unit/mL 55 unit subcut BEDTIME 07/26/21 07/06/23 08/08/22 History subcutaneous solution (Lantus U-100 Insulin) insulin lispro 100 unit/mL 35 unit subcut TID 07/26/21 07/06/23 08/09/22 History subcutaneous pen (Humalog KwikPen (U-100) Insulin) lisinopril 2.5 mg tablet 2.5 mg PO DAILY 07/26/21 07/06/23 08/09/22 History buprenorphine 8 mg-naloxone 2 mg 1 film sublingual TID 02/09/22 07/06/23 08/09/22 History sublingual film (Suboxone) Exam Height,Weight and Vital Signs: Height 5 ft 6 in Weight 183.251 kg Pertinent Lab Results Pertinent Lab Results: Laboratory Tests 10/11/23 11/27/23 06:20 12:26 WBC 6.9 Hgb 12.5 L Hct 38.3 L Plt Count 122 L Sodium 136 Potassium 4.3 Chloride 103 Carbon Dioxide 26 BUN 11 Creatinine 0.96 Narrative Narrative: EKG 05/2023 Vent. Rate : 097 BPM Atrial Rate : 097 BPM P-R Int : 152 ms QRS Dur : 078 ms QT Int : 364 ms P-R-T Axes : 071 046 020 degrees QTc Int : 462 ms Normal sinus rhythm ST & T wave abnormality, consider inferior ischemia Abnormal ECG When compared with ECG of 06-JUN-2023 09:40, T wave inversion now evident in Inferior leads QT has lengthened Assessment and Plan Assessment Anesthesia Assessment: Chart Reviewed
== END ==
LOC: HO.SSS 08:39
PROVIDERS: PCP Nurse Practitioner Primary Care; Visit Provider Internal Medicine Gastroenterology
DX: D64.9 Anemia, unspecified (principal); Z53.8 Procedure and treatment not carried out for other reasons; R19.7 Diarrhea, unspecified; R68.81 Early satiety

== ENCOUNTER 2024-01-04 14:21 | Outpatient (REF) | payer MEDICAID, SELFPAY ==
--- NOTE | ~2024-01-04 | XR_ITS ---
EXAMINATION: XR KNEE, LEFT CLINICAL INFORMATION: Worsening left knee pain COMPARISON: left knee 03/06/2012 -report only TECHNIQUE: Two views of the left knee. FINDINGS: Degenerative changes are present in the right with moderate narrowing of the medial compartment. A small knee joint effusion is present. No fractures or dislocations. No chondrocalcinosis is seen. At the time of the prior 2011 study, mild narrowing of the medial compartment was described suspect this has increased however only the report is available. XR/XR knee LT 2V IMPRESSION: Degenerative changes with moderate narrowing of the medial compartment and small knee joint effusion.
== END 2024-01-04 14:22 | disposition home or self-care (01) ==
LOC: HO.HHCX 14:21
PROVIDERS: Visit Provider Nurse Practitioner Primary Care
DX: M25.562 Pain in left knee (principal); G89.29 Other chronic pain
CPT/HCPCS: 73560

== ENCOUNTER 2024-01-08 15:37 | Emergency (ER) | payer MEDICAID, SELFPAY ==
--- NOTE | ~2024-01-08 | CT_ITS ---
EXAMINATION: CT HEAD WITHOUT CONTRAST CLINICAL INFORMATION: Headache COMPARISON: Portions of previous 09/03/21 TECHNIQUE: Multidetector CT examination of the head is performed without contrast. This CT examination was performed using dose optimization techniques as appropriate, variously including the following: *Automated exposure control *Adjustment of mA and/or kV according to patient size (this includes techniques or standardized protocols for targeted exams where dose is matched to indication/reason for exam; i.e. extremities or head) *Use of iterative reconstruction technique DLP: 829 mGy-cm FINDINGS: There is no evidence of a recent intracranial hemorrhage or extra-axial collection. The midline structures are nondisplaced. The ventricles, cisterns, and sulci are within normal limits. There is no evidence of an intra-axial mass. There are no suspicious focal areas of abnormal brain attenuation. The reynaga-white interface is within normal limits. There is no evidence of acute territorial infarct. The paranasal sinuses and mastoids are within normal limits. CT/CT head/brain wo IV con IMPRESSION: 1. There is no evidence of a recent intracranial hemorrhage. 2. No acute infarct. 3. No etiology for headache demonstrated on this nonenhanced exam
--- NOTE | 2024-01-08 15:44 | ECG_ITS ---
Test Reason : cp Blood Pressure : / mmHG Vent. Rate : 089 BPM Atrial Rate : 089 BPM P-R Int : 156 ms QRS Dur : 090 ms QT Int : 352 ms P-R-T Axes : 069 041 015 degrees QTc Int : 428 ms Normal sinus rhythm Nonspecific ST abnormality Borderline ECG When compared with ECG of 06-JUN-2023 23:38, No significant change was found Referred By: Judi Butler Electronically Signed By:RAMIN HEREDIA
[2024-01-08 16:07] VITALS: BP 189/93; PULSE 86; RESP 16; TEMP 36.9; O2SAT 98; BMI 67.4
--- NOTE | 2024-01-08 16:09 | ED.GENADULT ---
HPI - General Adult General Chief complaint: Headache Stated complaint: headache,chest pain Time Seen by Provider: 01/08/24 18:27 Source: patient, old records reviewed and nurse paralegal Mode of arrival: ambulatory Limitations: no limitations History of Present Illness ED Provider: TRUE HOLLINGSWORTH narrative: 43 yo male with PMH of HLD, obesity, DM, BETSY, anemia, has to use cane to walk, arthritis, frequent vomiting here with c/o acute onset headache x 1 week that started after he had orgasm during sex. He called his PCP today to tell them and they noted his BP was high so he was sent to the ED for eval. He still has a headache today. Denies hx of this in the past. No hx of aneurysm. Not on thinners MD complaint: headache Onset (ago): week(s) (1) Location: head Radiation: non-radiation Severity: moderate Quality: aching and constant Pain Consistency: constant Relieving factors: none Exacerbating factors: movement Associated symptoms: denies other symptoms Treatments prior to arrival: none Related Data Home Medications ?Medication ?Instructions ?Recorded ?Confirmed insulin glargine 100 unit/mL 55 unit subcut BEDTIME 07/26/21 07/06/23 subcutaneous solution (Lantus U-100 Insulin) insulin lispro 100 unit/mL 35 unit subcut TID 07/26/21 07/06/23 subcutaneous pen (Humalog KwikPen (U-100) Insulin) lisinopril 2.5 mg tablet 2.5 mg PO DAILY 07/26/21 07/06/23 buprenorphine 8 mg-naloxone 2 mg 1 film sublingual TID 02/09/22 07/06/23 sublingual film (Suboxone) Previous Rx's ?Medication ?Instructions ?Recorded cholecalciferol (vitamin D3) 25 25 mcg PO DAILY #30 caps 12/09/21 mcg (1,000 unit) capsule meloxicam 15 mg tablet 15 mg PO DAILY 30 days #30 tabs 03/16/22 lidocaine 5 % topical patch 1 patch topical DAILY #15 ea 05/11/23 (Lidoderm) naproxen 500 mg tablet 500 mg PO Q8-12H PRN pain (scale 05/11/23 score 4-6) #14 tabs ondansetron 4 mg disintegrating 4 mg PO Q6-8H PRN nausea and 01/10/24 tablet vomiting #10 tabs omeprazole 20 mg capsule,delayed 20 mg PO DAILY #30 caps 07/06/23 release sucralfate 100 mg/mL oral 1 g (10 mL) PO QIDACHS reflux 4 08/04/23 suspension weeks #420 mL bisacodyl 5 mg tablet,delayed 20 mg (4 x 5 mg) PO ONCE PRN 08/29/23 release (Dulcolax (bisacodyl)) colonoscopy prep 1 day #4 tabs polyethylene glycol 3350 17 238 g PO ONCE PRN laxative effect 08/29/23 gram/dose oral powder (Miralax) 1 day #238 grams bisacodyl 5 mg tablet,delayed 20 mg (4 x 5 mg) PO ONCE 1 day #4 12/18/23 release (Dulcolax (bisacodyl)) tabs Allergies Allergy/AdvReac Type Severity Reaction Status Date / Time seafood Allergy Severe Swelling Verified 01/08/24 16:12 No Known Drug Allergies Allergy Unknown none Verified 12/12/23 13:19 Review of Systems Review of Systems: Constitutional : No Fever, No Chills, No Fatigue ENT/Mouth : No sore throat, No Rhinorrhea Eyes: No Eye Pain, No Swelling, No Redness Cardiovascular : No Chest Pain, No SOB, No Dyspnea on Exertion Respiratory : No Cough, No Sputum Gastrointestinal : No Nausea, No Vomiting, No Diarrhea, No abdominal Pain Genitourinary : No Dysuria, No Urinary Frequency, No Hematuria, Musculoskeletal : No joint pain, No Myalgias, No Joint Swelling Skin : No Skin Lesions, No rash Neuro : No Weakness, No Numbness, No Dizziness, positive Headache Psych : No Anxiety/Panic, No Depression All other systems reviewed and are negative [facility] Past Medical History Attestation statement: The following information was validated with the patient. Source: old records reviewed Medical History Narcotic dependence Thrombocytopenia Carpal tunnel syndrome Sleep apnea Pre-op evaluation Hx of migraines BETSY on CPAP Pre-op evaluation HTN (hypertension), benign Insulin dependent type 1 diabetes mellitus Morbid obesity Shoulder dislocation Diabetes Surgical History Hx of hernia repair Hx of appendectomy Family History Family History Mother No problems noted. Brother No problems noted. Daughter No problems noted. Daughter No problems noted. Daughter No problems noted. Son No problems noted. Son No problems noted. 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 Oriented X3. No acute distress. Eyes: Pupils equal, round and reactive to light. ENT: Pharynx normal. Neck: Normal inspection. Neck supple. CVS: Normal heart rate and rhythm. Pulses normal. Respiratory: No respiratory distress. Breath sounds normal. Abdomen: Soft and nontender. Skin: Skin warm and dry. Normal skin color. Normal skin turgor. Extremities: No lower extremity edema. No calf ttp Neuro: Oriented X 3. No motor deficit. No sensory deficit. Course Course Course Narrative: RME performed by Judi Butler PA-C. Patient is a 43 year old assigned male at presenting to the emergency department with a headache. Patient states he was having intercourse a few weeks ago and when he orgasmed he had a thunderclap headache that is getting worse with exertion. Detailed physical exam and review of systems are deferred to the radiation therapist. Labs, imaging, and swabs ordered. Patient placed back in the waiting room pending room availability and results. Medical Decision Making Medical Decision Making MDM Narrative: 43 yo male with PMH of HLD, obesity, DM, BETSY, anemia, has to use cane to walk, arthritis, frequent vomiting here with c/o orgasm induced headache 1 week ago at this time would get CTA to rule out aneurysm, he is aware of plan initial CT scan out of 6 hour window and not helpful. Differential Diagnosis Differential Diagnoses: The differential diagnosis associated with the presentation includes tension, headache, anxiety, SAH, aneurysm Admission/Observation Consideration of admission/observation: Escalation of care including admission/observation considered patient walked out of ED prior to CTA as he was hungry and wanted to eat Lab Data MDM Lab Attestation statement: I reviewed the patient's lab results. 01/08/24 16:32 01/08/24 16:32 Labs: Lab Results 01/08/24 Range/Units 16:32 WBC 7.7 (4.8-10.8) X10*3/uL RBC 4.54 L (4.60-5.80) X10*6/uL Hgb 12.7 L (14.0-18.0) g/dl Hct 38.6 L (42.0-52.0) % MCV 85.0 (80.0-98.0) fL MCH 28.0 (27.0-33.0) pg MCHC 32.9 (31.0-36.0) g/dl RDW 13.2 (11.0-16.0) % Plt Count 116 L (160-400) X10*3/uL MPV 13.2 H (9.4-12.4) fL Immature Gran % (Auto) 0.3 (0.0-0.4) % Neut % (Auto) 70.7 (45-73) % Lymph % (Auto) 20.1 (20-40) % Divide % (Auto) 5.8 (2-11) % Eos % (Auto) 2.7 (0-4) % Baso % (Auto) 0.4 (0-2) % Lymph # (Auto) 1.6 (1.2-4.9) X10*3/uL Divide # (Auto) 0.5 (0.1-1.2) X10*3/uL Eos # (Auto) 0.2 (0.0-0.4) X10*3/uL Baso # (Auto) 0.0 (0.0-0.2) X10*3/uL Abs Immat Gran (auto) 0.02 (0.00-0.03) X10*3/uL Absolute Neuts (auto) 5.5 (2.0-8.3) x10*3/uL Absolute Nucleated RBC 0.000 (0.0-0.012) X10*3/uL Nucleated RBC % (auto) 0.0 (0.0-0.2) /100WBC Smear Tech's Comments VERIFIED Sodium 140 (135-145) mmol/L Potassium 4.0 (3.3-5.1) mmol/L Chloride 105 (96-108) mmol/L Carbon Dioxide 26 (22-29) mmol/L Anion Gap 13 (12-20) BUN 18 H (9-16) mg/dL Creatinine 1.10 (0.5-1.4) mg/dL Estim Creat Clear Calc 136.5 Estimated GFR > 60 Random Glucose 226 H (60-115) mg/dL Calcium 9.6 (8.4-10.2) mg/dL Magnesium 1.6 (1.6-2.6) mg/dL Total Bilirubin 0.8 (0.0-1.0) mg/dL AST 25 (5-37) U/L ALT 31 (0-40) U/L Alkaline Phosphatase 76 (39-117) U/L Total Protein 7.2 (6.5-8.0) g/dL Albumin 3.6 (3.5-5.0) g/dL Influenza Type A (PCR) NEGATIVE (Negative) Influenza Type B (PCR) NEGATIVE (Negative) RSV RNA Qual (PCR) NEGATIVE (Negative) SARS-CoV-2 RNA (RT-PCR) NEGATIVE (Negative) Independent Interpretation I performed an independent interpretation of an: CT Scan (no ICH) Radiology Impression Discussion of test interpretation with radiology: I have reviewed the radiologist's reading. External Record Review External record reviewed: Inpatient record Tests considered The following testing was considered but not selected: CTA ordered but patient walked out Discharge Plan Discharge Clinical Impression: Headache Qualifiers: Headache type: unspecified Headache chronicity pattern: acute headache Intractability: not intractable Qualified Code(s): R51.9 - Headache, unspecified Patient Disposition: Left W/O Completing Treatment Prescriptions: No Action cholecalciferol (vitamin D3) 25 mcg (1,000 unit) capsule 25 mcg PO DAILY Qty: 30 5RF meloxicam 15 mg tablet 15 mg PO DAILY 30 Days Qty: 30 0RF sucralfate 100 mg/mL suspension 1 g PO QIDACHS 28 Days Qty: 420 0RF bisacodyl [Dulcolax (bisacodyl)] 5 mg tablet,delayed release (DR/EC) 20 mg PO ONCE 1 Days Qty: 4 0RF Rx Instructions: take at noon the day before colonoscopy lidocaine [Lidoderm] 5 % adhesive patch,medicated 1 patch topical DAILY Qty: 15 0RF Rx Instructions: leave on most painful area for up to 12 hrs naproxen 500 mg tablet 500 mg PO Q8-12H PRN (Reason: pain (scale score 4-6)) Qty: 14 0RF ondansetron 4 mg tablet,disintegrating 4 mg PO Q6-8H PRN (Reason: nausea and vomiting) Qty: 10 0RF buprenorphine-naloxone [Suboxone] 8-2 mg film 1 film sublingual TID lisinopril 2.5 mg tablet 2.5 mg PO DAILY Lantus U-100 Insulin 100 unit/mL solution 55 unit subcut BEDTIME insulin lispro [Humalog KwikPen Insulin] 100 unit/mL insulin pen 35 unit subcut TID omeprazole 20 mg capsule,delayed release(DR/EC) 20 mg PO DAILY Qty: 30 5RF bisacodyl [Dulcolax (bisacodyl)] 5 mg tablet,delayed release (DR/EC) 20 mg PO ONCE PRN (Reason: colonoscopy prep) 1 Days Qty: 4 0RF Rx Instructions: Day before procedure @ 12 noon Take 4 tablets by mouth followed by large glass of water polyethylene glycol 3350 [Miralax] 17 gram/dose powder 238 g PO ONCE PRN (Reason: laxative effect) 1 Days Qty: 238 0RF Rx Instructions: Take as directed by mouth the day before your procedure. Discharge Date/Time: 01/08/24 20:11 Print Language: Micronesian
[2024-01-08 16:43] LABS: Hemoglobin 12.7 g/dl (14.0-18.0); Lymphocytes Absolute Auto 1.6 X10*3/uL (1.2-4.9); Monocytes Absolute Auto 0.5 X10*3/uL (0.1-1.2); Red Cell Distribution Width 13.2 % (11.0-16.0); SCAN SMEAR FLAG 1
[2024-01-08 16:45] LABS: Basophils Percent Auto 0.4 % (0-2); Eosinophils Absolute Auto 0.2 X10*3/uL (0.0-0.4); Eosinophils Percent Auto 2.7 % (0-4); Hematocrit 38.6 % (42.0-52.0); Imm Gran Abs Auto 0.02 X10*3/uL (0.00-0.03); Imm Gran Pct Auto 0.3 % (0.0-0.4); Lymphocytes Percent Auto 20.1 % (20-40); MANUAL DIFF FLAG SCAN; Mean Corpuscular HGB Conc 32.9 g/dl (31.0-36.0); Mean Platelet Volume 13.2 fL (9.4-12.4); Monocytes Percent Auto 5.8 % (2-11); Neutrophils Absolute Auto 5.5 x10*3/uL (2.0-8.3); Neutrophils Percent Auto 70.7 % (45-73); Platelet Count 116 X10*3/uL (160-400); Red Blood Count 4.54 X10*6/uL (4.60-5.80); White Blood Count 7.7 X10*3/uL (4.8-10.8)
[2024-01-08 16:52] LABS: PLT ABN DIST 1
[2024-01-08 16:54] LABS: Alanine Aminotransferase 31 U/L (0-40); Albumin Level 3.6 g/dL (3.5-5.0); Alkaline Phosphatase 76 U/L (39-117); Anion Gap 13 (12-20); Aspartate Amino Transferase 25 U/L (5-37); Bilirubin Total 0.8 mg/dL (0.0-1.0); Blood Urea Nitrogen 18 mg/dL (9-16); Calcium 9.6 mg/dL (8.4-10.2); Carbon Dioxide 26 mmol/L (22-29); Chloride 105 mmol/L (96-108); Creatinine Clr Calc Pharmacy 136.5; Estimated Glomerular Filt Rate > 60; Glucose Random 226 mg/dL (60-115); Magnesium 1.6 mg/dL (1.6-2.6); Sodium 140 mmol/L (135-145); Total Protein 7.2 g/dL (6.5-8.0)
[2024-01-08 17:16] LABS: SLIDE REVIEW VERIFIED
[2024-01-08 17:44] LABS: Influenza A PCR NEGATIVE (Negative); Influenza B PCR NEGATIVE (Negative); Resp Syncy Virus RNA Qual PCR NEGATIVE (Negative); SARS COV2 PCR INHOUSE NEGATIVE (Negative)
[2024-01-08 18:42] VITALS: BP 170/95; PULSE 81; RESP 16; TEMP 36.8; O2SAT 98
--- NOTE | 2024-01-08 20:07 | PC.NURSE ---
Pt states he wants to leave I've been here all day I want to eat Pt reminded he cannot eat until after CTA. Pt refusing to stay for CTA despite RN encouragement. notified.
== END 2024-01-08 20:11 | disposition left against medical advice (07) ==
LOC: HO.ED 18:32
PROVIDERS: Physician Assistant Medical; Emergency Provider Emergency Medicine; PCP Nurse Practitioner Primary Care
DX: R51.9 Headache, unspecified (principal); R07.89 Other chest pain; Z79.899 Other long term (current) drug therapy; Z03.818 Encounter for observation for suspected exposure to other biological agents ruled out
CPT/HCPCS: 0241U; 70450; 80053; 83735; 85025; 93005; 99284

== ENCOUNTER → 2024-01-08 15:44 | Outpatient (BNV) | payer MEDICAID, SELFPAY | PROVIDERS: Emergency Provider Emergency Medicine; PCP Nurse Practitioner Primary Care; Visit Provider Internal Medicine | DX: R07.9 Chest pain, unspecified (principal) | CPT/HCPCS: 93010 ==

== ENCOUNTER → 2024-02-13 07:56 | Outpatient (REF) | payer MEDICAID, SELFPAY ==
--- NOTE | ~2024-02-13 | NM_ITS ---
EXAMINATION: MD RADIONUCLIDE SOLID FOOD GASTRIC EMPTYING 4-HOUR STUDY CLINICAL INFORMATION: Vomiting. COMPARISON: No previous gastric emptying studies available for comparison. TECHNIQUE: A meal consisting of 8 ounces of Ensure-plus Brand tagged with 930 microcuries Tc-99m Sulfur Colloid, was administered orally to the patient. This fatty supplement was used because the patient could not tolerate eggs, and has been shown to closely mimic gastric emptying of labeled eggs. Images were obtained using a dual head gamma camera in the anterior and posterior projections over of the stomach immediately post ingestion and at hourly intervals up to 3 hours post ingestion. The anterior and posterior counts at each time interval were averaged using the geometric mean and expressed as percentage of the immediate post ingestion counts. Images were not obtained at 4 hours due to the minimal retention at 3 hours. The anterior and posterior counts at each time interval were averaged using the geometric mean and expressed as percentage of the immediate post ingestion counts. FINDINGS: There is good visualization of activity in the stomach immediately post ingestion. As the study progresses, there is good clearance of activity from the stomach and visualization of progressively increasing small bowel activity. By the end of the study, there is almost no retention noted in the stomach. Retention in the stomach at each time interval was: Retention in the stomach at each time interval was: 1 hour 52% (normal 37%-90%) 2 hours 4% (normal 30%-60%) 3 hours 0% 4 hours (Not Obtained) (normal 0%-10%) MD/MD gastric emptying study IMPRESSION: IMPRESSION: Normal modified gastric emptying study. Ensure-plus Brand supplement was used instead of radio-labeled eggs because of the patient's intolerance to eggs. This supplement has been shown to closely mimic gastric emptying of labeled eggs. Electronically signed by: Meir Yarbrough MD 02/13/2024 05:01 PM EDT
== END ==
LOC: HO.NUCMED 07:56
PROVIDERS: PCP Nurse Practitioner Primary Care; Visit Provider Nurse Practitioner Primary Care
DX: R11.10 Vomiting, unspecified (principal)
CPT/HCPCS: 78264; A9541

== ENCOUNTER 2024-02-27 12:17 | Outpatient (AMB) | payer MEDICAID, SELFPAY ==
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
[2024-02-27 12:30] VITALS: BP 158/82; PULSE 89; O2SAT 98; BMI 68.6
== END 2024-02-27 14:27 | disposition home or self-care (01) ==
PROVIDERS: PCP Nurse Practitioner Primary Care; Referring Provider Nurse Practitioner Primary Care; Visit Provider Student in an Organized Health Care Education/Training Program
DX: M25.50 Pain in unspecified joint (principal); M79.7 Fibromyalgia; R79.82 Elevated C-reactive protein (CRP)
CPT/HCPCS: 99204

== ENCOUNTER → 2024-02-27 12:17 | Outpatient (BNVA) | payer MEDICAID, SELFPAY | PROVIDERS: PCP Nurse Practitioner Primary Care; Visit Provider Student in an Organized Health Care Education/Training Program | DX: M79.7 Fibromyalgia (principal); M25.50 Pain in unspecified joint; R70.0 Elevated erythrocyte sedimentation rate; R79.82 Elevated C-reactive protein (CRP); M54.50 Low back pain, unspecified; E66.01 Morbid (severe) obesity due to excess calories; Z68.44 Body mass index [BMI] 60.0-69.9, adult | CPT/HCPCS: 99202 ==

== ENCOUNTER 2024-03-01 13:50 | Outpatient (REF) | payer MEDICAID, SELFPAY ==
--- NOTE | ~2024-03-01 | XR_ITS ---
EXAMINATION: XR LUMBOSACRAL SPINE CLINICAL INFORMATION: Chronic midline back pain. Bilateral sciatica. COMPARISON: None available. TECHNIQUE: Three views of the lumbosacral spine. FINDINGS: The vertebral bodies and posterior elements appear unremarkable. The disc spaces appear preserved, and the vertebral alignment appears unremarkable. The paraspinal soft tissues appear unremarkable. XR/XR lumbar spine 2-3V IMPRESSION: Unremarkable examination. Electronically signed by: Ramu Moore MD 03/01/2024 03:01 PM EDT
--- NOTE | ~2024-03-01 | XR_ITS ---
EXAMINATION: XR ANKLE, RIGHT CLINICAL INFORMATION: CHRONIC PAIN OF RIGHT ANKLE PT DENIES ANY INJURY. COMPARISON: Right foot radiograph 05/18/2023 TECHNIQUE: AP, lateral, and mortise views of the right ankle. FINDINGS: Alignment is anatomic. Ankle mortise is symmetric. Joint spaces are maintained. No evidence of acute fracture. No joint effusion. Dorsal soft tissue edema. Large plantar and posterior calcaneal spurs, not significantly changed from 2022. Soft tissue calcification subjacent to the calcaneocuboid joint. No radiopaque foreign body. XR/XR ankle RT min 3V IMPRESSION: 1. No evidence of acute fracture or dislocation. 2. Large plantar and posterior calcaneal spurs. Electronically signed by: Loni Brown DO 03/01/2024 03:20 PM EDT
== END 2024-03-01 13:51 | disposition home or self-care (01) ==
LOC: HO.HHCX 13:50
PROVIDERS: Visit Provider Student in an Organized Health Care Education/Training Program
DX: M54.41 Lumbago with sciatica, right side (principal); M54.42 Lumbago with sciatica, left side; G89.29 Other chronic pain; M25.571 Pain in right ankle and joints of right foot
CPT/HCPCS: 72100; 73610

== ENCOUNTER 2024-04-11 12:33 | Outpatient (REF) | payer MEDICAID, SELFPAY | END 2024-04-11 12:34 | disposition home or self-care (01) | LOC: HO.US 12:33 | PROVIDERS: PCP Nurse Practitioner Primary Care; Visit Provider Nurse Practitioner Primary Care | DX: N50.812 Left testicular pain (principal); R10.32 Left lower quadrant pain | CPT/HCPCS: 76870 ==

== ENCOUNTER → 2024-04-11 12:35 | Outpatient (BNV) | payer MEDICAID, SELFPAY | PROVIDERS: PCP Nurse Practitioner Primary Care; Visit Provider Radiology Diagnostic Radiology | DX: N50.812 Left testicular pain (principal); R10.32 Left lower quadrant pain | CPT/HCPCS: 76870 ==

== ENCOUNTER 2024-04-17 10:44 | Outpatient (AMB) | payer MEDICAID, SELFPAY ==
[2024-04-17 11:04] VITALS: BP 162/72; PULSE 81; O2SAT 97
--- NOTE | 2024-04-17 11:04 | A.OFFVIS_ITS ---
Vital Signs 04/17/24 11:04 Weight 415 lb BP 162/72 H Blood Pressure Location Rt brachial Position Sitting Pulse 81 Pulse Source Pulse Oximeter Pulse Oximetry (%) 97 Oxygen Delivery Method Room Air Intake Visit Reasons: Follow Up Patient Request Intake Note: Reports 03/07 for pain. Allergies seafood Allergy (Severe, Verified 04/17/24 11:05) Swelling No Known Drug Allergies Allergy (Unknown, Verified 04/17/24 11:05) none Medication List - Last Reconciled 04/17/24 by Marcelle Holly bisacodyl (Dulcolax (bisacodyl)) 20 mg (4 x 5 mg) PO ONCE PRN 1 day bisacodyl (Dulcolax (bisacodyl)) 20 mg (4 x 5 mg) PO ONCE 1 day buprenorphine-naloxone 8-2 mg (Suboxone) 1 film sublingual TID cholecalciferol (vitamin D3) 25 mcg PO DAILY gabapentin 100 mg PO BEDTIME insulin glargine (Lantus U-100 Insulin) 55 units subcut BEDTIME insulin lispro (Humalog KwikPen (U-100) Insulin) 35 units subcut TID lidocaine 5% (Lidoderm) 1 patch topical DAILY lisinopril 2.5 mg PO DAILY meloxicam 15 mg PO DAILY 30 days naproxen 500 mg PO Q8-12H PRN omeprazole 20 mg PO DAILY ondansetron 4 mg PO Q6-8H PRN polyethylene glycol 3350 (Miralax) 238 grams PO ONCE PRN 1 day sucralfate 1 g (10 mL) PO QIDACHS 4 weeks HPI Comments Details: Mr. Navarrete is back in my office with request to perform 3rd therapeutic intra- articular shoulder injection. He reports that his dentist send him for another facility to work on his teeth. He reports no pain in the toes. Denies tooth infection. I will schedule him for the left intra-articular shoulder steroid injection. He already received 2 intra-articular left shoulder steroid injections. Prior:? complaining on the pain in the left shoulder.? He reports that this pain was bothering him for many years but it was mild.? Two months ago the pain became severe.? He went for Orthopedic surgery office and Was recommended to have intra-articular shoulder steroid injection.? On the x-ray it was become demonstrating a loose body inside of his shoulder joint.? The dictation of the x-rays as below.? 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 For pain control he is taking meloxicam.? He never was a subject of physical therapy.? He had x-ray as dictated below [facility] Medical History (Updated 02/27/24 @ 13:45 by Lorenza Up MD) Elevated C-reactive protein (CRP) Fibromyalgia Polyarthralgia Narcotic dependence Thrombocytopenia Carpal tunnel syndrome Sleep apnea Pre-op evaluation Hx of migraines BETSY on CPAP Pre-op evaluation HTN (hypertension), benign Insulin dependent type 1 diabetes mellitus Morbid obesity Shoulder dislocation Diabetes Surgical History Hx of hernia repair Hx of appendectomy Family History Mother No problems noted. Brother No problems noted. Daughter No problems noted. Daughter No problems noted. Daughter No problems noted. Son No problems noted. Son No problems noted. 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 Review of Systems Const All systems reviewed & are unremarkable except as noted in HPI and below ENT Reports Normal hearing present Neuro Reports Normal hearing present and Denies confusion Psych Denies confusion Physical Exam Vital Signs: Last Vital Signs Pulse 81 04/17/24 11:04 BP 162/72 H 04/17/24 11:04 Pulse Ox 97 04/17/24 11:04 Oxygen Delivery Method Room Air 04/17/24 11:04 Const General: No confusion Orientation/consciousness: No confusion HEENT Head: Yes normal to inspection, Yes normocephalic and Yes atraumatic Eyes General: appearance normal, both eyes and all related structures Resp Effort & Inspection: normal respiratory effort and able to speak in complete sentences Cardio Rate: regular rate Peripheral pulses: Peripheral pulses 2+ throughout GI Palpation (GI): Soft to palpation Skin Lesions: no lesions Rashes: no rashes Neuro General: No confusion Cranial nerves: Yes Normal hearing present Extrem Other: Left shoulder: Able to forward flexion to 25 degrees. Abduction to 25 degrees. External to neutral with little motion. Unable to do any further testing due to pain and limited ROM. Assessment & Plan Assessment & Plan (1) Osteoarthritis of left shoulder: Code(s): M19.012 - Primary osteoarthritis, left shoulder Category: Medical Plan: (2) Morbid obesity: Code(s): E66.01 - Morbid (severe) obesity due to excess calories Category: Medical Plan He does not complain on pain in the teeth. Therefore unlikely has pulpitis. He requests me to perform left intra-articular shoulder injection. His pain in his shoulder is unbearable. I will schedule this procedure without sedation. I will see this patient after the injection. Coding Level of Care Code Est Pt Level 3 (80048) Diagnoses Osteoarthritis of left shoulder M19.012 Morbid obesity E66.01
== END 2024-04-17 11:42 | disposition home or self-care (01) ==
PROVIDERS: PCP Nurse Practitioner Primary Care; Visit Provider Anesthesiology
DX: M19.012 Primary osteoarthritis, left shoulder (principal); E66.01 Morbid (severe) obesity due to excess calories
CPT/HCPCS: 99213

== ENCOUNTER → 2024-04-17 10:44 | Outpatient (BNVA) | payer MEDICAID, SELFPAY | PROVIDERS: PCP Nurse Practitioner Primary Care; Visit Provider Anesthesiology | DX: M19.012 Primary osteoarthritis, left shoulder (principal); E66.01 Morbid (severe) obesity due to excess calories | CPT/HCPCS: 99212 ==

== ENCOUNTER 2024-04-19 12:26 | Outpatient (REF) | payer MEDICAID, SELFPAY ==
--- NOTE | ~2024-04-19 | MR_ITS ---
EXAMINATION: MR HAND WITHOUT CONTRAST, LEFT CLINICAL INFORMATION: Left hand pain, cramping, weakness. Carpal tunnel. Worsening symptoms. COMPARISON: None available. TECHNIQUE: MRI of the left hand was performed using routine sequences on a high-field scanner. FINDINGS: No acute fracture or dislocation. Normal carpal alignment. Intact articular cartilage. No concerning lytic or blastic osseous lesion. A small amount of fluid within the extensor carpi radialis brevis, extensor carpi radialis longus, and minimally within the extensor digitorum tendon sheaths, consistent with minimal tenosynovitis. A transverse tendon tear or tendon retraction. Intact median nerve. Intact collateral ligaments. No soft tissue mass or fluid collection. No significant joint effusion. MR/MR hand LT wo con IMPRESSION: 1. Minimal extensor carpi radialis brevis, extensor carpi radialis longus, and extensor digitorum tenosynovitis. No transverse tendon tear or tendon retraction. 2. Otherwise unremarkable examination. Electronically signed by: Gino Minor MD 05/05/2024 09:21 PM BRYAN MITCHELL
--- NOTE | ~2024-04-19 | MR_ITS ---
EXAMINATION: MR HAND WITHOUT CONTRAST, RIGHT CLINICAL INFORMATION: Right hand pain, cramping, weakness. Carpal tunnel. Worsening symptoms. COMPARISON: Right hand radiographs dated 05/03/2019. TECHNIQUE: Multisequence MR imaging of the right hand was obtained without contrast on a high-field strength scanner. FINDINGS: No acute fracture or dislocation. No marrow edema or evidence of acute osseous injury. Normal carpal alignment. No concerning lytic or blastic osseous lesion. Minimal degenerative arthritis at the 3rd carpometacarpal joint. No periarticular erosion or evidence of infectious or inflammatory arthropathy. Trace fluid within the extensor carpi radialis brevis and extensor carpi radialis longus tendon sheaths, consistent with minimal tenosynovitis. No transverse tendon tear or tendon retraction. Unremarkable median nerve. Grossly intact collateral ligaments. No evidence of acute injury. No soft tissue mass or fluid collection. No significant joint effusion. MR/MR hand RT wo con IMPRESSION: 1. Minimal extensor carpi radialis brevis and extensor carpi radialis longus tenosynovitis. No transverse tendon tear or tendon retraction. 2. Minimal degenerative arthritis at the 3rd carpometacarpal joint. No periarticular erosion or evidence of infectious or inflammatory arthropathy. Electronically signed by: Gino Minor MD 05/05/2024 09:17 PM BRYAN
== END 2024-04-19 12:27 | disposition home or self-care (01) ==
LOC: HO.MRI 12:26
PROVIDERS: PCP Nurse Practitioner Primary Care; Visit Provider Student in an Organized Health Care Education/Training Program
DX: M25.50 Pain in unspecified joint (principal); M79.7 Fibromyalgia; R79.82 Elevated C-reactive protein (CRP)
CPT/HCPCS: 73218

== ENCOUNTER 2024-04-22 14:08 | Outpatient (AMB) | payer MEDICAID, SELFPAY ==
--- NOTE | 2024-04-22 14:25 | A.OFFVIS_ITS ---
Vital Signs 04/22/24 14:28 Height 5 ft 5 in Weight 390 lb 3.491 oz BMI 64.9 BP 150/72 H Blood Pressure Location Lt radial Position Sitting Pulse 60 Intake Visit Reasons: Anemia f/u Intake Note: Ross presents in the office as a follow up for anemia. CC: Pains in the stomach with diarrhea constantly. He states that what he eats goes right through and when he wakes up he gets pains in the stomach and throws up. He states that he will have to constantly have to run to the bathroom for diarrhea. He states that when he vomits he has had blood. It Systems Manager Required: No Allergies seafood Allergy (Severe, Verified 04/22/24 14:32) Swelling HPI Comments Details: 43 y.o M with PMH of super morbid obesity BMI 64, BETSY, hx of substance use who is here for anemia. 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 Pt was prev seen by anurag and [facility] for EGD/colo for anemia on 12/20/23 which had to be canceled the day of the procedure as pt had active upper resp symptoms and had not prepped for the colonoscopy. Today, pt comes in for similar complaints as before i.e abd bloating and nausea. Occ vomiting, which is nonbilious sometimes with streaks of blood. In addition he also intermittent diarrhea and blood on wiping. Last month he also passed ? worm (has a picture on the phone). Does not report recent travel outside [place]. Labs reviewed and NON iron deficiency anemia noted. In addition, pt also with evidence of fatty liver with most recent CBC showing thrombocytopenia concerning for possible CSPH. PFSH Medical History Elevated C-reactive protein (CRP) Fibromyalgia Polyarthralgia Narcotic dependence Thrombocytopenia Carpal tunnel syndrome Sleep apnea Pre-op evaluation Hx of migraines BETSY on CPAP Pre-op evaluation HTN (hypertension), benign Insulin dependent type 1 diabetes mellitus Morbid obesity Shoulder dislocation Diabetes Surgical History Hx of colonoscopy History of esophagogastroduodenoscopy (EGD) Hx of hernia repair Hx of appendectomy Family History Mother No problems noted. Brother No problems noted. Daughter No problems noted. Daughter No problems noted. Daughter No problems noted. Son No problems noted. Son No problems noted. 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 Review of Systems Const All systems reviewed & are unremarkable except as noted in HPI and below Physical Exam Vital Signs: Last Vital Signs Pulse 60 04/22/24 14:28 BP 150/72 H 04/22/24 14:28 BMI result Body Mass Index 64.9 Appears older than stated age With obesity Abd soft, distended Ambulates with walker Results Reviewed Results Reviewed: Laboratory Tests 01/08/24 16:32 WBC 7.7 RBC 4.54 L Hgb 12.7 L Hct 38.6 L Plt Count 116 L Sodium 140 Potassium 4.0 Chloride 105 Carbon Dioxide 26 Anion Gap 13 BUN 18 H Creatinine 1.10 Random Glucose 226 H AST 25 ALT 31 Alkaline Phosphatase 76 Total Protein 7.2 Albumin 3.6 US ABd 10/24/23: LIVER: The liver is enlarged measuring 20.0 cm. The liver contour is normal. There is diffuse increased liver parenchymal echogenicity, consistent with hepatic steatosis. No focal hepatic lesion. There is no intrahepatic biliary duct dilatation seen. Assessment & Plan Assessment & Plan (1) Diarrhea: Code(s): R19.7 - Diarrhea, unspecified Category: Medical (2) Fatty liver: Code(s): K76.0 - Fatty (change of) liver, not elsewhere classified Category: Medical (3) Hepatomegaly: Code(s): R16.0 - Hepatomegaly, not elsewhere classified Category: Medical (4) Epigastric pain: Code(s): R10.13 - Epigastric pain Category: Medical (5) Obesity, morbid, BMI 50 or higher: Code(s): E66.01 - Morbid (severe) obesity due to excess calories Category: Medical Plan 1. Epigastric pain, N,V Ddx include delayed emptying, GERD, PUD, dyspepsia. Reviewed with the pt that will have to review with anesthesia/OR whether we are able to proceed with [place] [facility] [place] In the meantime, recommend: - Small frequent meals - Good glycemic control, to aim for BG <180 post meals - Avoid laying down within 2-3 hours of eating - Wedge pillow at night - Pt already on PPI through PCP 2. Intermittent diarrhea Ddx include celiac, IBD, hyperthyroidism, infection george parasitic. Plan: - Check labs as below - FEcal calpro - Stool O&P x 3 - Again endoscopic work up guided by cardiopulm status - msg sent to PAT RN 3. Fatty liver Most likely MAFLD. Hep negative. Will get labs to r/o other chronic liver disease causes. Reviewed natural progression and prognosis with pt. This will eb reviewed in further detail once we have results of prelim work up back, including elastography. Follow up 2 months Orders: Orders US abdomen comp w elastography 04/22/24 K76.0 - Fatty (change of) liver, not elsewhere classified Ova and Parasite 04/22/24 R19.7 - Diarrhea, unspecified Ova and Parasite Today R19.7 - Diarrhea, unspecified Ova and Parasite 04/24/24 R19.7 - Diarrhea, unspecified IRON PROFILE 04/22/24 R16.0 - Hepatomegaly, not elsewhere classified Ceruloplasmin 04/22/24 R16.0 - Hepatomegaly, not elsewhere classified Ferritin 04/22/24 R16.0 - Hepatomegaly, not elsewhere classified Mitochondrial Antibody 04/22/24 R16.0 - Hepatomegaly, not elsewhere classified Smooth Muscle Antibody 04/22/24 R16.0 - Hepatomegaly, not elsewhere classified Liver Kidney Microsomal Ab 04/22/24 R16.0 - Hepatomegaly, not elsewhere classified Hemoglobin A1c 04/22/24 R16.0 - Hepatomegaly, not elsewhere classified C Reactive Protein Today R19.7 - Diarrhea, unspecified Calprotectin, Fecal Today R19.7 - Diarrhea, unspecified Liver Fibrosis Pnl 04/22/24 K76.0 - Fatty (change of) liver, not elsewhere classified Alpha 1 Anti-trypsin 04/22/24 R16.0 - Hepatomegaly, not elsewhere classified COLLETTE Reflex Titer and Pattern 04/22/24 R16.0 - Hepatomegaly, not elsewhere classified Phosphatidylethanol, Blood 04/22/24 R16.0 - Hepatomegaly, not elsewhere classified Lipid Panel 04/22/24 R16.0 - Hepatomegaly, not elsewhere classified Complete Blood Count no Diff 04/22/24 R16.0 - Hepatomegaly, not elsewhere classified Comprehensive Met. Panel 04/22/24 R16.0 - Hepatomegaly, not elsewhere classified Prothrombin Time INR 04/22/24 R16.0 - Hepatomegaly, not elsewhere classified Transglutaminase IgA Today R19.7 - Diarrhea, unspecified TSH reflex Free T4 Today R19.7 - Diarrhea, unspecified Immunoglobulin A Today R19.7 - Diarrhea, unspecified Coding Level of Care Code Est Pt Level 5 (00909) Complex EM visit Add On G2211 Diagnoses Diarrhea R19.7 Fatty liver K76.0 Hepatomegaly R16.0 Epigastric pain R10.13 Obesity, morbid, BMI 50 or higher E66.01
[2024-04-22 14:28] VITALS: BP 150/72; PULSE 60; BMI 64.9
== END 2024-04-22 16:27 | disposition home or self-care (01) ==
PROVIDERS: PCP Nurse Practitioner Primary Care; Visit Provider Internal Medicine
DX: R19.7 Diarrhea, unspecified (principal); K76.0 Fatty (change of) liver, not elsewhere classified; R16.0 Hepatomegaly, not elsewhere classified
CPT/HCPCS: 99214

== ENCOUNTER → 2024-04-22 14:08 | Outpatient (BNVA) | payer MEDICAID, SELFPAY | PROVIDERS: PCP Nurse Practitioner Primary Care; Visit Provider Internal Medicine | DX: K76.0 Fatty (change of) liver, not elsewhere classified (principal); D64.9 Anemia, unspecified; R19.7 Diarrhea, unspecified; R10.9 Unspecified abdominal pain; R11.10 Vomiting, unspecified; R16.0 Hepatomegaly, not elsewhere classified; R10.13 Epigastric pain; E66.01 Morbid (severe) obesity due to excess calories; Z68.44 Body mass index [BMI] 60.0-69.9, adult | CPT/HCPCS: 99212 ==

== ENCOUNTER 2024-04-24 11:02 | Outpatient (REF) | payer MEDICAID, SELFPAY ==
[2024-04-24 11:41] LABS: Hematocrit 37.5 % (42.0-52.0); Hemoglobin 12.3 g/dl (14.0-18.0); Mean Corpuscular HGB Conc 32.8 g/dl (31.0-36.0); Mean Corpuscular Hemoglobin 28.1 pg (27.0-33.0); Mean Corpuscular Volume 85.8 fL (80.0-98.0); Platelet Count 115 X10*3/uL (160-400); Red Blood Count 4.37 X10*6/uL (4.60-5.80); Red Cell Distribution Width 12.9 % (11.0-16.0); White Blood Count 6.6 X10*3/uL (4.8-10.8)
[2024-04-24 11:47] LABS: Prothrombin Time 12.1 SEC (10.9-12.4)
[2024-04-24 12:05] LABS: Estimated Average Glucose 126 mg/dL; Hemoglobin A1C 132.9105 umol/L; Total Hemoglobin (HGBA1C) 3195.5923 umol/L
[2024-04-24 12:13] LABS: Rheumatoid Factor < 13.0 IU/mL (<15.0)
[2024-04-24 12:17] LABS: C Reactive Protein 1.27 mg/dL (< or = 0.50)
[2024-04-24 12:19] LABS: Alanine Aminotransferase 21 U/L (0-40); Albumin Level 3.6 g/dL (3.5-5.0); Alkaline Phosphatase 78 U/L (39-117); Anion Gap 15 (12-20); Aspartate Amino Transferase 25 U/L (5-37); Bilirubin Total 0.8 mg/dL (0.0-1.0); Blood Urea Nitrogen 20 mg/dL (9-16); C Reactive Protein 1.33 mg/dL (< or = 0.50); Carbon Dioxide 27 mmol/L (22-29); Chloride 102 mmol/L (96-108); Cholesterol 165 mg/dL (<200); Estimated Glomerular Filt Rate > 60; Glucose Random 175 mg/dL (60-115); HDL Cholesterol 48 mg/dL (>40); Iron 55 mcg/dL (45-160); LDL Cholesterol Calculated 91 mg/dL (<100); Percent Iron Saturation 25 % (15-50); Potassium 4.1 mmol/L (3.3-5.1); Sodium 140 mmol/L (135-145); Total Iron Binding Capacity 223 mcg/dL (228-428); Total Protein 7.1 g/dL (6.5-8.0); Triglycerides 132 mg/dL (<150); Unsaturated Iron Binding 168 ug/dL
[2024-04-24 12:25] LABS: Erythrocyte Sedimentation Rate 33 MM/HR (0-15)
[2024-04-24 12:37] LABS: Ferritin 117 ng/mL (20-250); TSH reflex Free T4 1.36 uIU/mL (0.32-4.0)
[2024-04-26 13:38] LABS: Alpha 1 Anti-trypsin 158 mg/dL (83-199); Ceruloplasmin 24 mg/dL (14-30); Immunoglobulin A 474 mg/dL (47-310)
[2024-04-26 13:48] LABS: Anti Nuclear Antibody Screen NEGATIVE (NEGATIVE)
[2024-04-26 17:42] LABS: Thyroglobulin Antibodies <1 IU/mL (< or = 1); Thyroid Peroxidase Antibodies <1 IU/mL (<9)
[2024-04-26 21:38] LABS: Transglutaminase IgA <1.0 U/mL
[2024-04-28 16:24] LABS: Vitamin D 25-OH, D2 <4 ng/mL; Vitamin D 25-OH, D3 8 ng/mL; Vitamin D 25-OH, Total 8 ng/mL (30-100)
[2024-04-29 06:39] LABS: Cyclic Citrullinated Peptide <16 UNITS
[2024-04-29 09:59] LABS: Mitochondrial Antibodies NEGATIVE (NEGATIVE)
[2024-04-29 14:53] LABS: HLA B27 Negative (Negative)
[2024-04-30 05:39] LABS: Smooth Muscle Antibody <20 U (<20)
[2024-04-30 13:09] LABS: Liver Kidney Microsomal Ab <=20.0 U (<=20.0)
[2024-05-06 10:16] LABS: Liver Fibrosis Score 0.16; Phosphatidylethanol 16:0-18:1 NEGATIVE; Phosphatidylethanol 16:0-18:2 NEGATIVE
[2024-05-06 10:17] LABS: Liver Fibrosis Interpretation no fibrosis; Liver Fibrosis Stage F0; Nec Inflam Act Grade A0; Nec Inflam Act Interpretation no activity; Nec Inflam Act Score 0.04
[2024-05-06 10:18] LABS: FIB-Alpha-2-Macroglobulin 198; FIB-Haptoglobin 123
[2024-05-06 10:19] LABS: FIB-Apolipoprotein A1 164; FIB-GGT 23; FIB-Total Bilirubin 0.6
[2024-05-06 10:21] LABS: FIB-ALT 15
[2024-05-06 10:22] LABS: Reference ID 5234014
== END 2024-04-24 11:03 | disposition home or self-care (01) ==
LOC: HO.LAB 11:02
PROVIDERS: Student in an Organized Health Care Education/Training Program; PCP Nurse Practitioner Primary Care; Visit Provider Internal Medicine
DX: R16.0 Hepatomegaly, not elsewhere classified (principal); M79.7 Fibromyalgia; M25.50 Pain in unspecified joint; R79.82 Elevated C-reactive protein (CRP); K76.0 Fatty (change of) liver, not elsewhere classified; R19.7 Diarrhea, unspecified
CPT/HCPCS: 36415; 80053; 80061; 80321; 81596; 82103; 82306; 82390; 82728; 82784; 83036; 83540; 84443; 85027; 85610; 85652; 86015; 86038; 86140; 86200; 86364; 86376; 86381; 86431; 86800; 86812

== ENCOUNTER 2024-04-29 14:42 | Outpatient (AMB) | payer MEDICAID, SELFPAY ==
[2024-04-29 14:57] VITALS: BMI 64.9
--- NOTE | 2024-04-29 14:57 | MHC.OFFVIS ---
Vital Signs 04/29/24 14:57 Height 5 ft 5 in Weight 390 lb BMI 64.9 Intake Visit Reasons: 1 yr f/u -BETSY Intake Note: Patient presents for 1 year follow up BETSY Gas Pumping Station Supervisor Required: Yes Gas Pumping Station Supervisor Name: shruthi ID [id number] Allergies seafood Allergy (Severe, Verified 04/29/24 15:05) Swelling HPI Comments Details: 42 y/o male patient presents for one year follow up of BETSY. He started CPAP at [id number] but uses loaner CPAP. The CPAP compliance and therapy response (01/29/24- 04/29/24) reviewed. Leaks Max 107.2 The usage days 90% and the average usage hours 8 hrs 30 min. The AHI was 2.5. Pt report his sleep is fragmented, and has excessive daytime sleepiness. Sleeps at 10pm for 2-3 hours until 12pm, wakes up, moves around and goes to the bathroom then stays up or goes to sleep for 2 hours again. Moves his legs, all night, it is difficult to sleep, bottom of feet, up to the shins he feels pins and needles and it is very painful. Denies Parasomnias, and nightmares. Headaches daily, temporal, bilateral and frontal, orbital, lasting for hours with blurry vision, last eye exam was more than 10 years, he will f/u with PCP next month, as he has a MRI pending but d/t his body habitus, unable. He has a CERTIFIED SURGICAL TECHNOLOGIST who manages all his medical appointments, and will reach out to the [facility] and needs supplies. He cleans his mask and changes the water, needs filters, and complaints of mask leaks, Diabetes type I, on insulin. MRI pending Labs 04/24/2024 per pcp. [facility] Medical History Elevated C-reactive protein (CRP) Fibromyalgia Polyarthralgia Narcotic dependence Thrombocytopenia Carpal tunnel syndrome Sleep apnea Pre-op evaluation Hx of migraines BETSY on CPAP Pre-op evaluation HTN (hypertension), benign Insulin dependent type 1 diabetes mellitus Morbid obesity Shoulder dislocation Diabetes Surgical History Hx of colonoscopy History of esophagogastroduodenoscopy (EGD) Hx of hernia repair Hx of appendectomy Family History Mother No problems noted. Brother No problems noted. Daughter No problems noted. Daughter No problems noted. Daughter No problems noted. Son No problems noted. Son No problems noted. 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 Review of Systems Const All systems reviewed & are unremarkable except as noted in HPI and below ENT Reports Normal hearing present Neuro Reports Normal hearing present Physical Exam Vital Signs: BMI result Body Mass Index 64.9 Const General: cooperative Nutritional Appearance: obese Orientation/consciousness: patient oriented x3 Limitations: language barrier (Jamaican speaking only) Resp Effort & Inspection: normal respiratory effort and able to speak in complete sentences Neuro General: patient oriented x3, gait normal and moves all extremities Cranial nerves: Yes Bilaterally intact EOM present, Yes Normal facial strength present, Yes Midline tongue present, Yes Normal hearing present, Yes Ability to bilaterally rotate head present and Yes Ability to bilaterally elevate shoulders present Cognition (Neuro): normal cognition Gait exam (Neuro): Normal gait present Motor exam (neuro): Pronator motor function not present and no tremor noted Psych Appearance: grossly normal Mental Status: mental status grossly normal Speech and movement: Normal speech and movement present Results Reviewed Results Reviewed: The CPAP compliance and therapy response (01/29/24- 04/29/24) reviewed. Leaks Max 107.2 The usage days 90% and the average usage hours 8 hrs 30 min. The AHI was 2.5. Labs Type I Diabetes on Insulin Assessment & Plan Assessment & Plan (1) Sleep apnea treated with continuous positive airway pressure (CPAP): Code(s): G47.30 - Sleep apnea, unspecified Category: Medical (2) Morbid obesity: Code(s): E66.01 - Morbid (severe) obesity due to excess calories Category: Medical (3) Leg pain: Code(s): M79.606 - Pain in leg, unspecified Category: Medical Qualifiers: Laterality: bilateral Qualified Code(s): M79.604 - Pain in right leg; M79.605 - Pain in left leg Plan Continue CPAP daily. Stressed compliance of CPAP nightly. Referred to sleep medicine for mask fitting and supplies as needed. Will refer patient to [facility], as he continues to have difficulties with leaks. Discussed weight management and daily exercise and box car washer referral, will discuss next time. BMI is 64.9. MRI is pending Per PCP. Coding Level of Care Code Est Pt Level 3 (26005) Diagnoses Sleep apnea treated with continuous positive airway pressure (CPAP) G47.30 Morbid obesity E66.01 Pain in both lower extremities M79.604; M79.605 Laterality: bilateral
== END 2024-04-29 16:25 | disposition home or self-care (01) ==
PROVIDERS: Absent Provider Nurse Practitioner Family; PCP Nurse Practitioner Primary Care; Visit Provider Physician Assistant Medical
DX: G47.30 Sleep apnea, unspecified (principal); E66.01 Morbid (severe) obesity due to excess calories; M79.604 Pain in right leg; M79.605 Pain in left leg
CPT/HCPCS: 99213

== ENCOUNTER → 2024-04-29 14:42 | Outpatient (BNVA) | payer MEDICAID, SELFPAY | PROVIDERS: Absent Provider Nurse Practitioner Family; PCP Nurse Practitioner Primary Care; Visit Provider Physician Assistant Medical | DX: G47.33 Obstructive sleep apnea (adult) (pediatric) (principal); E66.01 Morbid (severe) obesity due to excess calories; M79.605 Pain in left leg; M79.604 Pain in right leg; Z99.89 Dependence on other enabling machines and devices; Z68.44 Body mass index [BMI] 60.0-69.9, adult | CPT/HCPCS: 99212 ==

== ENCOUNTER 2024-05-09 08:31 | Outpatient (REF) | payer MEDICAID, SELFPAY ==
--- OUTSIDE RECORDS SUMMARY | 2024-05-09 08:42 | XMS_ITS | Continuity of Care Document ---
Author Organization [facility] ter Address [address] [place] [id number]- Care Team Providers Care Predatory Animal Hunter Name Role Phone Mirna Up NP, V Primary Care Physician Encounter 05/04/24 - 05/05/[address] [id number] Attending Physician: Not on Staff, Attending MD Referring Physician: Not on Staff, Referring MD Encounter Type: SMRI Allergies, Adverse Reactions, Alerts Substance Criticality Severity Reaction Reaction Severity Status Seafood Active Medications omeprazole 20 mg oral enteric coated capsule 1 capsule = 20 mg, By Mouth, 2 times a day, # 28 capsule, 0 Refills, Maintenance, 09/24/13 3:24:27 PM EDT, EC Capsule, [id number] Start Date: 09/24/13 Status: Ordered Quantity: 28.0 Unit: capsule Repeat number: 1 Oxycodone By Mouth, 0 Refills, Maintenance, 09/23/13 9:55:44 AM EDT Start Date: 09/23/13 Status: Ordered Repeat number: 1 Problem List Condition Confirmation Course Effective Dates Status Health St atus Informant Arthritis Confirmed Active Morbid obesity Confirmed Active Sleep apnea, obstructive Confirmed Active Patient Care team information Care Team Personnel Name: Mirna Up NP, V Position: S Outreach Member Role: PCP Address: [address] [facility] [address] [place] [address], [place], [place] [id number] Telecom: Care Team Related Persons Name: WILSON JERRY Insurance Providers Guarantor name: STEVE JIANG Health Plan Information #: 1 Payer: [employer] Member Number: NA Policy Number: NA Group Number: NA
== END 2024-05-09 08:32 | disposition home or self-care (01) ==
LOC: HO.US 08:31
PROVIDERS: PCP Nurse Practitioner Primary Care; Visit Provider Internal Medicine
DX: K76.0 Fatty (change of) liver, not elsewhere classified (principal)
CPT/HCPCS: 76700; 76981

== ENCOUNTER → 2024-05-09 08:34 | Outpatient (BNV) | payer MEDICAID, SELFPAY | PROVIDERS: PCP Nurse Practitioner Primary Care; Visit Provider Radiology Diagnostic Radiology | DX: K76.0 Fatty (change of) liver, not elsewhere classified (principal) | CPT/HCPCS: 76700; 76981 ==

== ENCOUNTER 2024-05-16 17:14 | Inpatient (IN) | payer MEDICAID, OTHER, SELFPAY ==
[2024-05-16 17:17] VITALS: BP 150/80; PULSE 80; O2SAT 98
--- NOTE | 2024-05-16 17:17 | ED_ITS ---
HPI - Psych General Chief Complaint: Psychiatric Symptoms Stated Complaint: SI Source: patient, EMS and old records reviewed Mode of arrival: EMS Limitations: other (agitated and doesn't want to answer then states it wasn't him. ) History of Present Illness ED Provider: TRUE HOLLING[place]ORTH Narrative: 43 yo male with PMH of fibromyalgia, DM, HLD, HTN, obesity, migraines, anemia, BETSY here with c/o telling his psychiatrist the truth then he ended up here. He called a crisis hotline and told them he planned to hang himself he states that this isn't true. He then refuses to answer anymore questions and states that's why he is here because he was honest with questions. He then is agitated refuses to tire changer aircraft and won't give up his phone. MD complaint: suicidal ideation and feels depressed Onset (ago): unknown Duration: constant History of same: Yes Relieving factors: none Exacerbating factors: other Context: significant life stressor Associated psychiatric symptoms: depression Associated symptoms: denies other symptoms Treatments prior to arrival: none Related Data Home Medications ?Medication ?Instructions ?Recorded ?Confirmed insulin lispro 100 unit/mL 35 unit subcut TID 07/26/21 04/17/24 subcutaneous pen (Humalog KwikPen (U-100) Insulin) buprenorphine 8 mg-naloxone 2 mg 1 film sublingual TID 02/09/22 04/17/24 sublingual film (Suboxone) esomeprazole magnesium 40 mg 40 mg PO QAM 04/22/24 capsule,delayed release fluoxetine 40 mg capsule 40 mg PO DAILY 04/22/24 insulin glargine 100 unit/mL (3 55 unit subcut BEDTIME 04/22/24 mL) subcutaneous pen (Lantus Solostar U-100 Insulin) lisinopril 20 mg tablet 20 mg PO DAILY 04/22/24 Previous Rx's ?Medication ?Instructions ?Recorded meloxicam 15 mg tablet 15 mg PO DAILY 30 days #30 tabs 03/16/22 lidocaine 5 % topical patch 1 patch topical DAILY #15 ea 05/11/23 (Lidoderm) naproxen 500 mg tablet 500 mg PO Q8-12H PRN pain (scale 05/11/23 score 4-6) #14 tabs ondansetron 4 mg disintegrating 4 mg PO Q6-8H PRN nausea and 06/07/23 tablet vomiting #10 tabs sucralfate 100 mg/mL oral 1 g (10 mL) PO QIDACHS reflux 4 08/04/23 suspension weeks #420 mL gabapentin 100 mg capsule 100 mg PO BEDTIME #90 caps 02/27/24 cholecalciferol (vitamin D3) 1,250 1,250 mcg PO QWEEK 3 months #13 04/30/24 mcg (50,000 unit) capsule caps Allergies Allergy/AdvReac Type Severity Reaction Status Date / Time seafood Allergy Severe Swelling Verified 05/16/24 17:35 Review of Systems 2 Review of Systems: ROS unable to be obtained due to patient upset he is here [facility] Past Medical History Attestation statement: The following information was validated with the patient. Source: old records reviewed Medical History Vitamin D deficiency Elevated C-reactive protein (CRP) Fibromyalgia Polyarthralgia Narcotic dependence Thrombocytopenia Carpal tunnel syndrome Sleep apnea Pre-op evaluation Hx of migraines BETSY on CPAP Pre-op evaluation HTN (hypertension), benign Insulin dependent type 1 diabetes mellitus Morbid obesity Shoulder dislocation Diabetes Surgical History Hx of colonoscopy History of esophagogastroduodenoscopy (EGD) Hx of hernia repair Hx of appendectomy Family History Family History Mother No problems noted. Brother No problems noted. Daughter No problems noted. Daughter No problems noted. Daughter No problems noted. Son No problems noted. Son No problems noted. Social History Social History Household Members: Spouse and Children Housing: Apartment Are you a primary direct care provider to a significant other at home: No Do you presently have visiting nurse or other home services: No Alcohol intake: never Patient Tobacco Use Status: Never used Tobacco Smoked in Last 30 Days: No Use of substances other than those prescribed or required for medical reasons: No Substance Use Type: Marijuana Advance Directives: Yes Advance Directives on File: Yes Advance Directives Date on File: 08/10/22 Do you have a plan to hurt others: No Plan service: No Current occupational status: employed and other 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 Oriented X3. angry and upset mild acute distress. Eyes: Pupils equal, round and reactive to light. ENT: Pharynx normal. atraumatic Neck: Normal inspection. Neck supple. CVS: Pulses normal. Respiratory: No respiratory distress. Abdomen: obese Skin: Skin warm and dry. Normal skin color. Extremities: no obv trauma Neuro: Oriented X 3. moving ext normally will not participate in exam Medications Administered Generic Name Dose Route Start Last Admin Trade Name Freq PRN Reason Stop Dose Admin Magnesium Sulfate 2 gm in 50 mls @ 25 mls/hr 05/16/24 18:32 05/16/24 19:08 Magnesium Sulfate/H2o IV 05/16/24 20:31 25 mls/hr ONCE ONE Administration Medical Decision Making Medical Decision Making MDM Narrative: 43 yo male with PMH of fibromyalgia, DM, HLD, HTN, obesity, migraines, anemia, BETSY here with c/o telling the truth now he is here. EMS reports he called suicide hotline with plan to hang himself at this time will obtain labs, CARE team consult. He is upset and not answering questions Differential Diagnosis Differential Diagnoses: The differential diagnosis associated with the presentation includes depression, SI Admission/Observation Consideration of admission/observation: Escalation of care including admission/observation considered physician observation started at 555pm pending CARE team Consult Healthcare Provider Management of the patient was discussed with: Behavioral Health Provider Lab Data MDM Lab Attestation statement: I reviewed the patient's lab results. 05/16/24 18:10 05/16/24 18:10 Labs: Lab Results 05/16/24 Range/Units 18:10 WBC 10.6 (4.8-10.8) X10*3/uL RBC 4.61 (4.60-5.80) X10*6/uL Hgb 13.0 L (14.0-18.0) g/dl Hct 38.5 L (42.0-52.0) % MCV 83.5 (80.0-98.0) fL MCH 28.2 (27.0-33.0) pg MCHC 33.8 (31.0-36.0) g/dl RDW 12.6 (11.0-16.0) % Plt Count 141 L (160-400) X10*3/uL MPV 12.2 (9.4-12.4) fL Immature Gran % (Auto) 0.6 H (0.0-0.4) % Neut % (Auto) 79.6 H (45-73) % Lymph % (Auto) 14.1 L (20-40) % Hoke % (Auto) 4.7 (2-11) % Eos % (Auto) 0.7 (0-4) % Baso % (Auto) 0.3 (0-2) % Lymph # (Auto) 1.5 (1.2-4.9) X10*3/uL [place]oke # (Auto) 0.5 (0.1-1.2) X10*3/uL Eos # (Auto) 0.1 (0.0-0.4) X10*3/uL Baso # (Auto) 0.0 (0.0-0.2) X10*3/uL Abs Immat Gran (auto) 0.06 H (0.00-0.03) X10*3/uL Absolute Neuts (auto) 8.4 H (2.0-8.3) x10*3/uL Absolute Nucleated RBC 0.000 (0.0-0.012) X10*3/uL Nucleated RBC % (auto) 0.0 (0.0-0.2) /100WBC Sodium 138 (135-145) mmol/L Potassium 3.6 (3.3-5.1) mmol/L Chloride 103 (96-108) mmol/L Carbon Dioxide 27 (22-29) mmol/L Anion Gap 12 (12-20) BUN 14 (9-16) mg/dL Creatinine 1.08 (0.5-1.4) mg/dL Estim Creat Clear Calc 105.4 Estimated GFR > 60 Random Glucose 148 H (60-115) mg/dL Calcium 8.8 (8.4-10.2) mg/dL Magnesium 1.4 L* (1.6-2.6) mg/dL Total Bilirubin 0.6 (0.0-1.0) mg/dL Direct Bilirubin 0.2 (0.0-0.5) mg/dL AST 25 (5-37) U/L ALT 16 (0-40) U/L Alkaline Phosphatase 70 (39-117) U/L Total Protein 7.8 (6.5-8.0) g/dL Albumin 3.8 (3.5-5.0) g/dL Ethyl Alcohol < 10 mg/dL Independent Interpretation I performed an independent interpretation of an: EKG Interpretation: Rate: 68 Rhythm: NSR [place]: normal Normal P waves. Normal ANNALEE. Normal QRS complex. ST T wave : normal no LEE, inverted T waves V1 qTC:401 prior studies: no acute ischemia The study has been interpreted contemporaneously by me. . Independent Historian Clinical information obtained from an independent historian. History obtained from or confirmed by: EMS External Record Review External record reviewed: Outpatient record Discharge Plan Discharge Clinical Impression: Hypomagnesemia Depression Qualifiers: Depression Type: unspecified Qualified Code(s): F32.A - Depression, unspecified Patient Disposition: Still a Patient Prescriptions: No Action meloxicam 15 mg tablet 15 mg PO DAILY 30 Days Qty: 30 0RF sucralfate 100 mg/mL suspension 1 g PO QIDACHS 28 Days Qty: 420 0RF cholecalciferol (vitamin D3) 1,250 mcg (50,000 unit) capsule 1,250 mcg PO QWEEK 90 Days Qty: 13 0RF lidocaine [Lidoderm] 5 % adhesive patch,medicated 1 patch topical DAILY Qty: 15 0RF Rx Instructions: leave on most painful area for up to 12 hrs naproxen 500 mg tablet 500 mg PO Q8-12H PRN (Reason: pain (scale score 4-6)) Qty: 14 0RF ondansetron 4 mg tablet,disintegrating 4 mg PO Q6-8H PRN (Reason: nausea and vomiting) Qty: 10 0RF buprenorphine-naloxone [Suboxone] 8-2 mg film 1 film sublingual TID insulin lispro [Humalog KwikPen Insulin] 100 unit/mL insulin pen 35 unit subcut TID gabapentin 100 mg capsule 100 mg PO BEDTIME Qty: 90 0RF esomeprazole magnesium 40 mg capsule,delayed release(DR/EC) 40 mg PO QAM insulin glargine [Lantus Solostar U-100 Insulin] 100 unit/mL (3 mL) insulin pen 55 unit subcut BEDTIME lisinopril 20 mg tablet 20 mg PO DAILY fluoxetine 40 mg capsule 40 mg PO DAILY Print Language: Malian
[2024-05-16 17:31] VITALS: BMI 40.3
--- NOTE | 2024-05-16 17:55 | PC.NURSE ---
Pt biba from home SI statements. Per EMS, pt called Crisis hot line stating SI with a plan to hang himself. Upon arrival, pt denying SI statements, stating i'm not answering that question because that's what got me here. Pt refusing changeover into hospital clothes, educated on hospital policy to see CARE team. Security at bedside for assistance along with Ronnie chief technician. Pt able to calm down and finish change room attendant with assistance of security. 1:1 sitter at bedside for safety, call qiu within reach, all needs met at this time.
[2024-05-16 18:00] VITALS: BP 166/78; PULSE 98; RESP 18; O2SAT 97
[2024-05-16 18:13] LABS: MANUAL DIFF FLAG NO
[2024-05-16 18:16] LABS: Basophils Percent Auto 0.3 % (0-2); Eosinophils Absolute Auto 0.1 X10*3/uL (0.0-0.4); Eosinophils Percent Auto 0.7 % (0-4); Hematocrit 38.5 % (42.0-52.0); Imm Gran Abs Auto 0.06 X10*3/uL (0.00-0.03); Imm Gran Pct Auto 0.6 % (0.0-0.4); Lymphocytes Absolute Auto 1.5 X10*3/uL (1.2-4.9); Lymphocytes Percent Auto 14.1 % (20-40); Mean Corpuscular HGB Conc 33.8 g/dl (31.0-36.0); Mean Corpuscular Hemoglobin 28.2 pg (27.0-33.0); Mean Corpuscular Volume 83.5 fL (80.0-98.0); Mean Platelet Volume 12.2 fL (9.4-12.4); Monocytes Absolute Auto 0.5 X10*3/uL (0.1-1.2); Monocytes Percent Auto 4.7 % (2-11); Neutrophils Absolute Auto 8.4 x10*3/uL (2.0-8.3); Neutrophils Percent Auto 79.6 % (45-73); Platelet Count 141 X10*3/uL (160-400); Red Blood Count 4.61 X10*6/uL (4.60-5.80); Red Cell Distribution Width 12.6 % (11.0-16.0); White Blood Count 10.6 X10*3/uL (4.8-10.8)
[2024-05-16 18:31] LABS: Ethanol < 10 mg/dL
[2024-05-16 18:33] LABS: Alanine Aminotransferase 16 U/L (0-40); Albumin Level 3.8 g/dL (3.5-5.0); Alkaline Phosphatase 70 U/L (39-117); Anion Gap 12 (12-20); Aspartate Amino Transferase 25 U/L (5-37); Bilirubin Direct 0.2 mg/dL (0.0-0.5); Bilirubin Total 0.6 mg/dL (0.0-1.0); Blood Urea Nitrogen 14 mg/dL (9-16); Calcium 8.8 mg/dL (8.4-10.2); Carbon Dioxide 27 mmol/L (22-29); Chloride 103 mmol/L (96-108); Creatinine Clr Calc Pharmacy 105.4; Estimated Glomerular Filt Rate > 60; Glucose Random 148 mg/dL (60-115); Magnesium 1.4 mg/dL (1.6-2.6); Potassium 3.6 mmol/L (3.3-5.1); Sodium 138 mmol/L (135-145); Total Protein 7.8 g/dL (6.5-8.0)
[2024-05-16] MEDS: Magnesium Sulfate/H2O 2 GM/50 ML PIGGYBACK IV (19:08)
--- NOTE | 2024-05-16 19:19 | PC.NURSE ---
assumed care of pt at this time, refusing to answer any questions regarding si statements made previously, otherwise pt is calm/cooperative. iv placed to R. AC, mag infusing per mar. pt placed on cardiac monitoring nsr. pt does report 03/07 MONTERO, provider aware. 1:1 sitter at bedside.
--- NOTE | 2024-05-16 19:24 | ECG_ITS ---
Test Reason : CHEST PAIN Blood Pressure : / mmHG Vent. Rate : 068 BPM Atrial Rate : 068 BPM P-R Int : 156 ms QRS Dur : 072 ms QT Int : 378 ms P-R-T Axes : 037 028 017 degrees QTc Int : 401 ms Normal sinus rhythm Normal ECG When compared with ECG of 08-JAN-2024 15:44, No significant change was found Referred By: Lidia Pinto Electronically Signed By:RAMIN HEREDIA
[2024-05-16] MEDS: Acetaminophen 325 MG TABLET 975 MG PO (19:53)
[2024-05-16 20:00] VITALS: BP 158/80; PULSE 84; RESP 20; O2SAT 99
[2024-05-16 20:34] LABS: Amphetamine Screen Urine Not Detected (Not Detect); Barbiturates, Urine Not Detected (Not Detect); Benzodiazepines Screen Urine Not Detected (Not Detect); Buprenorphine Scr Positive (Not Detect); Cannabinoid Screen Urine POSITIVE (Not Detect); Cocaine Screen Urine Not Detected (Not Detect); Fentanyl, urine Not Detected (Not Detect); Methadone Screen, Urine Not Detected (Not Detect); Opiate Screen Urine Not Detected (Not Detect); Oxycodone Screen Urine Not Detected (Not Detect); Phencyclidine Screen Urine Not Detected (Not Detect)
[2024-05-16 21:51] VITALS: BP 131/73; PULSE 73; RESP 18; O2SAT 94
[2024-05-16 21:53] LABS: Glucose, Whole Blood 166 mg/dL (60-115)
--- NOTE | 2024-05-16 22:33 | MHC.CARE ---
Pt was assessed by the CARE team, he will be an Adult IPLOC bed search and was placed on a section 12 for safety and containment. Pt will be seen for an MSU tomorrow if his bed search becomes exhausted.
--- NOTE | 2024-05-16 22:58 | PC.NURSE ---
Lantus not given per MD Pinto as pt not eating, offered sandwiches/pudding/etc and pt states he doesnt have an appetite currently, poc 166. pt requests cpap for bedtime, RT aware.
[2024-05-16] MEDS: Buprenorphine/Naloxone 8/2 mg FILM 1 FILM SUBLINGUAL (23:04)
[2024-05-16] MEDS: Gabapentin 100 MG CAPSULE PO (23:04)
[2024-05-16 23:21] VITALS: PULSE 62; RESP 19; O2SAT 98
[2024-05-17 06:42] VITALS: BP 129/68; PULSE 53; RESP 17; TEMP 36.4; O2SAT 97
[2024-05-17 08:25] LABS: Glucose, Whole Blood 91 mg/dL (60-115)
[2024-05-17] MEDS: Buprenorphine/Naloxone 8/2 mg FILM 1 FILM SUBLINGUAL ×3 (08:44→20:59)
[2024-05-17 08:47] LABS: Appearance Urine Clear; Color Urine Yellow; Glucose Urine UA Negative (Negative); Leukocyte Esterase Urine Negative (Negative); Nitrite Urine Negative (Negative); PH 6.5 (5.0-9.0); UMIC TRIGGER UACC YES; Urine Blood Negative (Negative); Urine Ketones Negative (Negative); Urine Protein 300 (3+) mg/dL (Neg-Trace)
[2024-05-17 08:54] LABS: Bacteria Urine None Seen (None Seen); Hyaline Casts Urine 0-2 /LPF (0-2); RBC Urine 0-2 /HPF (0-2); Squamous Epithelial Cell Urine 0-2 /HPF (0-2); UACC Culture Trigger YES
--- NOTE | 2024-05-17 09:12 | PC.NURSE ---
Pt requested he only wants his suboxone this morning, feels he cannot tolerate his pills due to upset stomach. Has not been tolerated PO intake well, refused his insulin
--- NOTE | 2024-05-17 10:16 | PHA.MEDREC ---
Addendum entered by Juan C Renteria 05/17/24 10:27: Reviewed Original Note: Pharmacy Consult ? Medication Reconciliation Pharmacy has reviewed the medication reconciliation done by nursing. Spoke to patient through sign language interpreter service (Desirae) to confirm med list. patient states he takes vitamin D3 every Monday. lantus is 55 units.
[2024-05-17 10:39] LABS: Magnesium 1.8 mg/dL (1.6-2.6)
[2024-05-17 11:43] VITALS: PULSE 65; RESP 16; O2SAT 98
[2024-05-17 12:18] LABS: Glucose, Whole Blood 107 mg/dL (60-115)
--- NOTE | 2024-05-17 15:28 | P.HPPS_ITS ---
HPI Date of Service: 05/17/24 Chief Complaint: Crisis Sources of Information: patient interviewed, chart reviewed and crisis/core team assessment reviewed HPI Subjective Notes: Godwin Warning and Section 12B Narrative: Patient is a 43-year-old male with history of MDD, PTSD, and opiate use disorder, who presented to ER via ambulance due to suicidal ideation secondary to life stressors. Per crisis report, patient was completing an intake with psychiatrist virtually and reported having suicidal ideation but was refusing to go to the ER to be assessed. Police and EMS were called and patient was brought to ER. Patient stated, I will hang myself if you transport me to the ER . Patient reports he was honest with a psychiatrist and now he is in the hospital and being treated like a prisoner . He stated he was planning on running when he heard the police were coming but it was too late because they were already in his house . Patient reports he has been struggling for a long time with his depression, his health is worsening in he does not feel the way he used to. Patient reports his only coping skill is seeing his and dog. Patient stated, the only reason I will not kill myself is because I do not have the money for a casket . Patient reports feeling overwhelmed from this process and the police going into his home. Patient reports he would like help but is scared what will happen if he continues to be honest about everything. Patient reports he has been increasingly depressed over the past year due to life, financial and health stressors. Patient made statements such as, I would rather assault someone and go to [facility] than have to stay here . Denies any history inpatient hospitalizations. Utox positive for marijuana and buprenorphine. During admission assessment, patient presents alert and oriented x3. science interpreter present. Guarded. Irritable. Patient reports feeling depressed ; patient stated, I know I need help but let me go and I will come back on my own. I need to go home and take care of my . I want help, not this way . Patient reports that he does not want to talk to anyone because that is how he was hospitalized . Patient is on a section 12B. denies history of suicide attempts. Patient stated, when I get bad issues, I think about suicide. As of right now I would not kill myself. I do not know maybe my brain would change . hx of SIB by hitting myself with a belt sometimes to get myself motivated to do things . Patient reports he has been taking Prozac 40mg PO daily, for the past few months and finds it a little helpful . Denies HI/VH/AH. Past Psychiatric History: Denies history of suicide attempts. hx of SIB by hitting myself with a belt sometimes to get myself motivated to do things . 1st inpatient psychiatric hospitalization. Medical Evaluation Reviewed: Yes [facility] Medical History Vitamin D deficiency Elevated C-reactive protein (CRP) Fibromyalgia Polyarthralgia Narcotic dependence Thrombocytopenia Carpal tunnel syndrome Sleep apnea Pre-op evaluation Hx of migraines BETSY on CPAP Pre-op evaluation HTN (hypertension), benign Insulin dependent type 1 diabetes mellitus Morbid obesity Shoulder dislocation Diabetes Surgical History Hx of colonoscopy History of esophagogastroduodenoscopy (EGD) Hx of hernia repair Hx of appendectomy Family History: Unknown Social History: Lives with . 5 adult children. 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 Completed 9th grade. Substance History: Patient reports history of heroin use. Smokes marijuana daily. Trauma History: Yes Diagnostics Vital Signs (24Hr): Vital Signs - 24 hr 05/16/24 18:00 05/16/24 20:00 05/16/24 21:51 Temperature Pulse Rate 98 84 73 Respiratory Rate 18 20 18 Blood Pressure 166/78 H 158/80 H 131/73 Pulse Oximetry 97 99 94 Oxygen Delivery Method Room Air Room Air Room Air 05/16/24 23:21 05/17/24 06:42 05/17/24 11:43 Temperature 97.5 F Pulse Rate 53 Respiratory Rate 19 17 16 Blood Pressure 129/68 Pulse Oximetry 97 Oxygen Delivery Method CPAP BMI result Body Mass Index 40.3 Labs 05/16/24 18:10 05/16/24 18:10 Labs: Laboratory Results - last 48 hr 05/16/24 05/16/24 05/16/24 18:10 19:56 21:49 WBC 10.6 RBC 4.61 Hgb 13.0 L Hct 38.5 L MCV 83.5 MCH 28.2 MCHC 33.8 RDW 12.6 Plt Count 141 L MPV 12.2 Immature Gran % (Auto) 0.6 H Neut % (Auto) 79.6 H Lymph % (Auto) 14.1 L [place] % (Auto) 4.7 Eos % (Auto) 0.7 Baso % (Auto) 0.3 Lymph # (Auto) 1.5 [place] # (Auto) 0.5 Eos # (Auto) 0.1 Baso # (Auto) 0.0 Abs Immat Gran (auto) 0.06 H Absolute Neuts (auto) 8.4 H Absolute Nucleated RBC 0.000 Nucleated RBC % (auto) 0.0 Sodium 138 Potassium 3.6 Chloride 103 Carbon Dioxide 27 Anion Gap 12 BUN 14 Creatinine 1.08 Estim Creat Clear Calc 105.4 Estimated GFR > 60 POC Glucose 166 H Random Glucose 148 H Calcium 8.8 Magnesium 1.4 L* Total Bilirubin 0.6 Direct Bilirubin 0.2 AST 25 ALT 16 Alkaline Phosphatase 70 Total Protein 7.8 Albumin 3.8 Urine Color Urine Appearance Urine pH Ur Specific [place] Urine Protein Urine Glucose (UA) Urine Ketones Urine Blood Urine Nitrite Ur Leukocyte Esterase Urine RBC Urine WBC Ur Squamous Epith Cells Urine Bacteria Hyaline Casts Urine Opiates Screen Not Detected Ur Buprenorphine Scrn Positive H Ur Oxycodone Screen Not Detected Urine Methadone Screen Not Detected Urine Fentanyl Screen Not Detected Ur Barbiturates Screen Not Detected Ur Phencyclidine Scrn Not Detected Ur Amphetamines Screen Not Detected U Benzodiazepines Scrn Not Detected Urine Cocaine Screen Not Detected U Marijuana (THC) Screen POSITIVE H Ethyl Alcohol < 10 05/17/24 05/17/24 05/17/24 08:12 08:36 10:14 WBC RBC Hgb Hct MCV MCH MCHC RDW Plt Count MPV Immature Gran % (Auto) Neut % (Auto) Lymph % (Auto) [place] % (Auto) Eos % (Auto) Baso % (Auto) Lymph # (Auto) [place] # (Auto) Eos # (Auto) Baso # (Auto) Abs Immat Gran (auto) Absolute Neuts (auto) Absolute Nucleated RBC Nucleated RBC % (auto) Sodium Potassium Chloride Carbon Dioxide Anion Gap BUN Creatinine Estim Creat Clear Calc Estimated GFR POC Glucose 91 Random Glucose Calcium Magnesium 1.8 Total Bilirubin Direct Bilirubin AST ALT Alkaline Phosphatase Total Protein Albumin Urine Color Yellow Urine Appearance Clear Urine pH 6.5 Ur Specific [place] 1.020 Urine Protein 300 (3+) H Urine Glucose (UA) Negative Urine Ketones Negative Urine Blood Negative Urine Nitrite Negative Ur Leukocyte Esterase Negative Urine RBC 0-2 Urine WBC 6-10 Ur Squamous Epith Cells 0-2 Urine Bacteria None Seen Hyaline Casts 0-2 Urine Opiates Screen Ur Buprenorphine Scrn Ur Oxycodone Screen Urine Methadone Screen Urine Fentanyl Screen Ur Barbiturates Screen Ur Phencyclidine Scrn Ur Amphetamines Screen U Benzodiazepines Scrn Urine Cocaine Screen U Marijuana (THC) Screen Ethyl Alcohol 05/17/24 12:14 WBC RBC Hgb Hct MCV MCH MCHC RDW Plt Count MPV Immature Gran % (Auto) Neut % (Auto) Lymph % (Auto) [place] % (Auto) Eos % (Auto) Baso % (Auto) Lymph # (Auto) [place] # (Auto) Eos # (Auto) Baso # (Auto) Abs Immat Gran (auto) Absolute Neuts (auto) Absolute Nucleated RBC Nucleated RBC % (auto) Sodium Potassium Chloride Carbon Dioxide Anion Gap BUN Creatinine Estim Creat Clear Calc Estimated GFR POC Glucose 107 Random Glucose Calcium Magnesium Total Bilirubin Direct Bilirubin AST ALT Alkaline Phosphatase Total Protein Albumin Urine Color Urine Appearance Urine pH Ur Specific [place] Urine Protein Urine Glucose (UA) Urine Ketones Urine Blood Urine Nitrite Ur Leukocyte Esterase Urine RBC Urine WBC Ur Squamous Epith Cells Urine Bacteria Hyaline Casts Urine Opiates Screen Ur Buprenorphine Scrn Ur Oxycodone Screen Urine Methadone Screen Urine Fentanyl Screen Ur Barbiturates Screen Ur Phencyclidine Scrn Ur Amphetamines Screen U Benzodiazepines Scrn Urine Cocaine Screen U Marijuana (THC) Screen Ethyl Alcohol Meds/Allergies Meds Home Medications ?Medication ?Instructions ?Recorded ?Confirmed ?Type insulin lispro 100 unit/mL 35 unit subcut TID 07/26/21 05/16/24 History subcutaneous pen (Humalog KwikPen (U-100) Insulin) buprenorphine 8 mg-naloxone 2 mg 1 film sublingual TID 02/09/22 05/16/24 History sublingual film (Suboxone) esomeprazole magnesium 40 mg 40 mg PO QAM 04/22/24 05/16/24 History capsule,delayed release fluoxetine 40 mg capsule 40 mg PO DAILY 04/22/24 05/16/24 History insulin glargine 100 unit/mL (3 55 unit subcut BEDTIME 04/22/24 05/16/24 History mL) subcutaneous pen (Lantus Solostar U-100 Insulin) lisinopril 20 mg tablet 20 mg PO DAILY 04/22/24 05/16/24 History lidocaine 5 % topical patch 1 patch topical DAILY PRN Pain 05/16/24 05/16/24 History (Lidoderm) Allergies Allergies Allergy/AdvReac Type Severity Reaction Status Date / Time seafood Allergy Severe Swelling Verified 05/16/24 17:35 Mental Status Exam Mental Status Exam Patient Appearance: Appropriate Patient Orientation: Person, Place, Time and Situation Level of Consciousness: Awake and Alert Patient Behavior: Guarded and Good Eye Contact Mood Description: Depressed and Anxious Affect Description: Constricted Ability to Follow Directions: Good Speech Pattern: Clear and Appropriate Hallucinations: None Delusions: Not Present Thought Process: Intact Thought Content: positive for Intact Assessment & Plan Assessment & Plan (1) MDD (major depressive disorder), recurrent episode: Status: Acute Code(s): F33.9 - Major depressive disorder, recurrent, unspecified (2) PTSD (post-traumatic stress disorder): Status: Acute Code(s): F43.10 - Post-traumatic stress disorder, unspecified (3) Opioid use disorder: Status: Acute Code(s): F11.90 - Opioid use, unspecified, uncomplicated Plan Patient is a 43-year-old male with history of MDD, PTSD, and opiate use disorder, who presented to ER via ambulance due to suicidal ideation secondary to life stressors. Plan: 12B 15 minute safety checks Continue home medications Increase: Prozac to 60mg PO daily Obtain collateral Encourage groups Discharge planning Patient educated on: diagnosis and medication risk/benefits Reason for continued inpatient stay Substantial Risk for: harm to self and med/psych decompensation Statement Statement: I have reviewed the history and physical and performed a pertinent examination on my patient. No changes have occurred unless specified. If the History and Physical was not performed prior to admission, the Hospitalist's service will be consulted for completing the admission physical. Time Spent With Patient Time: Total time managing care of this patient today _60___ minutes.
[2024-05-17 16:16] LABS: Albumin Level 3.8 g/dL (3.5-5.0); Anion Gap 14 (12-20); Aspartate Amino Transferase 24 U/L (5-37); Bilirubin Total 1.3 mg/dL (0.0-1.0); Blood Urea Nitrogen 14 mg/dL (9-16); Calcium 9.4 mg/dL (8.4-10.2); Carbon Dioxide 26 mmol/L (22-29); Chloride 103 mmol/L (96-108); Creatinine Clr Calc Pharmacy 114.9; Estimated Glomerular Filt Rate > 60; Glucose Random 119 mg/dL (60-115); Potassium 4.1 mmol/L (3.3-5.1); Sodium 139 mmol/L (135-145); Total Protein 7.8 g/dL (6.5-8.0)
[2024-05-17 16:36] VITALS: BP 135/78; PULSE 60; RESP 18; TEMP 36.3; O2SAT 98
[2024-05-17 17:05] LABS: Glucose, Whole Blood 169 mg/dL (60-115)
[2024-05-17 17:10] LABS: Alanine Aminotransferase 17 U/L (0-40); Alkaline Phosphatase 78 U/L (39-117)
--- NOTE | 2024-05-17 18:06 | PC.ADMIT ---
Ross arrived to the unit at 1238 from [facility] via wheelchair. He is currently on a 12b, declined to sign in. Skin check done on arrival he has bilateral lower extremity diabetic ulcer, Reina INSTRUCTIONAL SUPPORT ASSISTANT notified, hospitalist consult put in. Upon approach he stated I don't want to be here. He reports that he has been struggling with passive SI, stated I told my psychiatrist and next thing you know there are warehouse worker knocking on my door. He acknowledge that he needs help But not under these circumstances, he reports the warehouse worker were yelling at him that he needed to go to the hospital, stated I left my at home. He reported he will not be signing anything, minimally participated in admission. He reported endorsing anxiety, depression, passive SI, he denied having a plan stated I would never do anything I love my and family. Per assessment presented to [facility] via EMS after doing an intake with with a psychiatrist virtually and reporting suicidal ideation and was refusing to go to the ER to be assessed. Police and EMS were called and brought patient to the ER to be assessed. He is a diabetic, he is diagnosed with sleep apnea utilizes a CPAP at night. He is diagnosed with MDD. Currently on 15 minute checks.
[2024-05-17 19:09] VITALS: BMI 61.0
[2024-05-17 20:00] VITALS: BP 122/73; PULSE 60; RESP 18; TEMP 37.2
[2024-05-17 20:23] LABS: Glucose, Whole Blood 124 mg/dL (60-115)
[2024-05-17] MEDS: Insulin Glargine,Hum.rec.anlog 100 UNIT/ML 10 ML VIAL 55 UNIT SUBCUT (20:59)
[2024-05-17] MEDS: Gabapentin 100 MG CAPSULE PO (21:00)
[2024-05-18 00:02] VITALS: PULSE 68; RESP 18; O2SAT 97
--- NOTE | 2024-05-18 08:33 | P.DS_ITS ---
DS: Providers Provider Date of Service: 05/18/24 Date of admission: 05/17/24 12:11 Date of discharge: 05/18/24 Primary care physician: [facility] Consults: 05/17/24 15:27 Consult to Hospitalist Routine Comment: Consulting Provider: [facility] Reason For Exam: sores on legs. Discharging clinician: Emily Prabhakar DS: Diagnosis Discharge Diagnosis (1) MDD (major depressive disorder), recurrent episode: Status: Acute (2) PTSD (post-traumatic stress disorder): Status: Acute (3) Opioid use disorder: Status: Acute DS: Medications Discharge Medications Home Medications: Home Medications ?Medication ?Instructions ?Recorded ?Confirmed insulin lispro 100 unit/mL 35 unit subcut TID 07/26/21 05/16/24 subcutaneous pen (Humalog KwikPen (U-100) Insulin) buprenorphine 8 mg-naloxone 2 mg 1 film sublingual TID 02/09/22 05/16/24 sublingual film (Suboxone) esomeprazole magnesium 40 mg 40 mg PO QAM 04/22/24 05/16/24 capsule,delayed release fluoxetine 40 mg capsule 40 mg PO DAILY 04/22/24 05/16/24 insulin glargine 100 unit/mL (3 55 unit subcut BEDTIME 04/22/24 05/16/24 mL) subcutaneous pen (Lantus Solostar U-100 Insulin) lisinopril 20 mg tablet 20 mg PO DAILY 04/22/24 05/16/24 lidocaine 5 % topical patch 1 patch topical DAILY PRN Pain 05/16/24 05/16/24 (Lidoderm) Previous Rx's ?Medication ?Instructions ?Recorded meloxicam 15 mg tablet 15 mg PO DAILY 30 days #30 tabs 03/16/22 gabapentin 100 mg capsule 100 mg PO BEDTIME #90 caps 02/27/24 cholecalciferol (vitamin D3) 1,250 1,250 mcg PO QWEEK 3 months #13 04/30/24 mcg (50,000 unit) capsule caps Data Data Completed and Pending Completed studies during hospitalization [Text1]: 05/16/24 05/16/24 05/16/24 18:10 19:56 21:49 WBC 10.6 RBC 4.61 Hgb 13.0 L Hct 38.5 L MCV 83.5 MCH 28.2 MCHC 33.8 RDW 12.6 Plt Count 141 L MPV 12.2 Immature Gran % (Auto) 0.6 H Neut % (Auto) 79.6 H Lymph % (Auto) 14.1 L [place] % (Auto) 4.7 Eos % (Auto) 0.7 Baso % (Auto) 0.3 Lymph # (Auto) 1.5 [place] # (Auto) 0.5 Eos # (Auto) 0.1 Baso # (Auto) 0.0 Abs Immat Gran (auto) 0.06 H Absolute Neuts (auto) 8.4 H Absolute Nucleated RBC 0.000 Nucleated RBC % (auto) 0.0 Sodium 138 Potassium 3.6 Chloride 103 Carbon Dioxide 27 Anion Gap 12 BUN 14 Creatinine 1.08 Estim Creat Clear Calc 105.4 Estimated GFR > 60 POC Glucose 166 H Random Glucose 148 H Calcium 8.8 Magnesium 1.4 L* Total Bilirubin 0.6 Direct Bilirubin 0.2 AST 25 ALT 16 Alkaline Phosphatase 70 Total Protein 7.8 Albumin 3.8 Urine Color Urine Appearance Urine pH Ur Specific [place] Urine Protein Urine Glucose (UA) Urine Ketones Urine Blood Urine Nitrite Ur Leukocyte Esterase Urine RBC Urine WBC Ur Squamous Epith Cells Urine Bacteria Hyaline Casts Urine Opiates Screen Not Detected Ur Buprenorphine Scrn Positive H Ur Oxycodone Screen Not Detected Urine Methadone Screen Not Detected Urine Fentanyl Screen Not Detected Ur Barbiturates Screen Not Detected Ur Phencyclidine Scrn Not Detected Ur Amphetamines Screen Not Detected U Benzodiazepines Scrn Not Detected Urine Cocaine Screen Not Detected U Marijuana (THC) Screen POSITIVE H Ethyl Alcohol < 10 05/17/24 05/17/24 05/17/24 08:12 08:36 10:14 WBC RBC Hgb Hct MCV MCH MCHC RDW Plt Count MPV Immature Gran % (Auto) Neut % (Auto) Lymph % (Auto) [place] % (Auto) Eos % (Auto) Baso % (Auto) Lymph # (Auto) [place] # (Auto) Eos # (Auto) Baso # (Auto) Abs Immat Gran (auto) Absolute Neuts (auto) Absolute Nucleated RBC Nucleated RBC % (auto) Sodium Potassium Chloride Carbon Dioxide Anion Gap BUN Creatinine Estim Creat Clear Calc Estimated GFR POC Glucose 91 Random Glucose Calcium Magnesium 1.8 Total Bilirubin Direct Bilirubin AST ALT Alkaline Phosphatase Total Protein Albumin Urine Color Yellow Urine Appearance Clear Urine pH 6.5 Ur Specific [place] 1.020 Urine Protein 300 (3+) H Urine Glucose (UA) Negative Urine Ketones Negative Urine Blood Negative Urine Nitrite Negative Ur Leukocyte Esterase Negative Urine RBC 0-2 Urine WBC 6-10 Ur Squamous Epith Cells 0-2 Urine Bacteria None Seen Hyaline Casts 0-2 Urine Opiates Screen Ur Buprenorphine Scrn Ur Oxycodone Screen Urine Methadone Screen Urine Fentanyl Screen Ur Barbiturates Screen Ur Phencyclidine Scrn Ur Amphetamines Screen U Benzodiazepines Scrn Urine Cocaine Screen U Marijuana (THC) Screen Ethyl Alcohol 05/17/24 05/17/24 05/17/24 12:14 15:42 16:59 WBC RBC Hgb Hct MCV MCH MCHC RDW Plt Count MPV Immature Gran % (Auto) Neut % (Auto) Lymph % (Auto) [place] % (Auto) Eos % (Auto) Baso % (Auto) Lymph # (Auto) [place] # (Auto) Eos # (Auto) Baso # (Auto) Abs Immat Gran (auto) Absolute Neuts (auto) Absolute Nucleated RBC Nucleated RBC % (auto) Sodium 139 Potassium 4.1 Chloride 103 Carbon Dioxide 26 Anion Gap 14 BUN 14 Creatinine 0.99 Estim Creat Clear Calc 114.9 Estimated GFR > 60 POC Glucose 107 169 H Random Glucose 119 H Calcium 9.4 D Magnesium Total Bilirubin 1.3 H Direct Bilirubin AST 24 ALT 17 Alkaline Phosphatase 78 Total Protein 7.8 Albumin 3.8 Urine Color Urine Appearance Urine pH Ur Specific [place] Urine Protein Urine Glucose (UA) Urine Ketones Urine Blood Urine Nitrite Ur Leukocyte Esterase Urine RBC Urine WBC Ur Squamous Epith Cells Urine Bacteria Hyaline Casts Urine Opiates Screen Ur Buprenorphine Scrn Ur Oxycodone Screen Urine Methadone Screen Urine Fentanyl Screen Ur Barbiturates Screen Ur Phencyclidine Scrn Ur Amphetamines Screen U Benzodiazepines Scrn Urine Cocaine Screen U Marijuana (THC) Screen Ethyl Alcohol 05/17/24 20:11 WBC RBC Hgb Hct MCV MCH MCHC RDW Plt Count MPV Immature Gran % (Auto) Neut % (Auto) Lymph % (Auto) [place] % (Auto) Eos % (Auto) Baso % (Auto) Lymph # (Auto) [place] # (Auto) Eos # (Auto) Baso # (Auto) Abs Immat Gran (auto) Absolute Neuts (auto) Absolute Nucleated RBC Nucleated RBC % (auto) Sodium Potassium Chloride Carbon Dioxide Anion Gap BUN Creatinine Estim Creat Clear Calc Estimated GFR POC Glucose 124 H Random Glucose Calcium Magnesium Total Bilirubin Direct Bilirubin AST ALT Alkaline Phosphatase Total Protein Albumin Urine Color Urine Appearance Urine pH Ur Specific [place] Urine Protein Urine Glucose (UA) Urine Ketones Urine Blood Urine Nitrite Ur Leukocyte Esterase Urine RBC Urine WBC Ur Squamous Epith Cells Urine Bacteria Hyaline Casts Urine Opiates Screen Ur Buprenorphine Scrn Ur Oxycodone Screen Urine Methadone Screen Urine Fentanyl Screen Ur Barbiturates Screen Ur Phencyclidine Scrn Ur Amphetamines Screen U Benzodiazepines Scrn Urine Cocaine Screen U Marijuana (THC) Screen Ethyl Alcohol 05/17/24 Unknown Urine clean catch - Clean Catch Midstream Urine Culture - Pending DS: Summary Time Spent with Patient Time attestation: Total time managing care of this patient today ____ minutes. Discharge Plan Discharge Referrals: [facility] [Primary Care Provider] - 1 Week Discharge Medications: No Action meloxicam 15 mg tablet 15 mg PO DAILY 30 Days Qty: 30 0RF cholecalciferol (vitamin D3) 1,250 mcg (50,000 unit) capsule 1,250 mcg PO QWEEK 90 Days Qty: 13 0RF Rx Instructions: Wednesdays lidocaine [Lidoderm] 5 % adhesive patch,medicated 1 patch topical DAILY PRN (Reason: Pain) Rx Instructions: leave on most painful area for up to 12 hrs buprenorphine-naloxone [Suboxone] 8-2 mg film 1 film sublingual TID insulin lispro [Humalog KwikPen Insulin] 100 unit/mL insulin pen 35 unit subcut TID gabapentin 100 mg capsule 100 mg PO BEDTIME Qty: 90 0RF esomeprazole magnesium 40 mg capsule,delayed release(DR/EC) 40 mg PO QAM insulin glargine [Lantus Solostar U-100 Insulin] 100 unit/mL (3 mL) insulin pen 55 unit subcut BEDTIME lisinopril 20 mg tablet 20 mg PO DAILY fluoxetine 40 mg capsule 40 mg PO DAILY Print Language: Kiswahili
[2024-05-18 09:06] VITALS: BP 142/78; PULSE 68; TEMP 36.8; O2SAT 96
[2024-05-18] MEDS: lisinopriL 20 MG TABLET PO (09:07)
[2024-05-18] MEDS: Buprenorphine/Naloxone 8/2 mg FILM 1 FILM SUBLINGUAL (09:08)
[2024-05-18] MEDS: Naloxone HCl Nasal TAKE HOME 4 MG SPRAY 8 MG NOSTRILALT (09:10)
== END 2024-05-18 09:35 | disposition home or self-care (01) | DRG 751 ==
LOC: HO.ED 17:57 → HO.PADLT16 05-17 12:12
PROVIDERS: Emergency Medicine Emergency Medical Services; Admitting Provider Registered Nurse; Emergency Provider Emergency Medicine; Responsible Provider Registered Nurse; Visit Provider Psychiatry & Neurology Psychiatry
DX: F33.9 Major depressive disorder, recurrent, unspecified (principal); R45.851 Suicidal ideations; F11.20 Opioid dependence, uncomplicated; F43.10 Post-traumatic stress disorder, unspecified; Z79.899 Other long term (current) drug therapy
CPT/HCPCS: 36415; 80048; 80053; 80076; 80307; 81001; 82947; 83735; 85025; 87086; 93005; 94660; 99285; J3475

== ENCOUNTER → 2024-05-16 19:24 | Outpatient (BNV) | payer MEDICAID, SELFPAY | PROVIDERS: Admitting Provider Registered Nurse; Emergency Provider Emergency Medicine; Responsible Provider Registered Nurse; Visit Provider Internal Medicine | DX: R07.9 Chest pain, unspecified (principal) | CPT/HCPCS: 93010 ==

== ENCOUNTER → 2024-05-17 12:11 | Outpatient (BNV) | payer OTHER, SELFPAY | PROVIDERS: Admitting Provider Registered Nurse; Emergency Provider Emergency Medicine; Responsible Provider Registered Nurse; Visit Provider Registered Nurse | DX: F33.2 Major depressive disorder, recurrent severe without psychotic features (principal); F43.11 Post-traumatic stress disorder, acute; F11.90 Opioid use, unspecified, uncomplicated | CPT/HCPCS: 99233 ==

== ENCOUNTER 2024-05-30 11:21 | Outpatient (AMB) | payer MEDICAID, SELFPAY ==
[2024-05-30 11:22] VITALS: BP 162/98; PULSE 67
--- NOTE | 2024-05-30 11:22 | MHC.OFFVIS ---
Vital Signs 05/30/24 11:22 Height 5 ft 5 in BP 162/98 H Blood Pressure Location Rt brachial Position Sitting Pulse 67 Pulse Source Pulse Oximeter Intake Visit Reasons: f/u MRI, Labs, XRs Intake Note: Patient last seen by Doctor Leanna on 02/27/24. Presents today for follow up MRI, Labs and XRs. Satellite Communications Engineer Required: Yes Satellite Communications Engineer Language: Shuttle Threader Services: Satellite Communications Engineer Present Information Interpreted: non-clinical & clinical Accompanied by: Self / Same As Patient Allergies seafood Allergy (Severe, Verified 05/30/24 11:27) Swelling Medication List - Last Reconciled 05/30/24 by Lorenza Up MD buprenorphine-naloxone 8-2 mg (Suboxone) 1 film sublingual TID cholecalciferol (vitamin D3) 1,250 mcg PO QWEEK 3 months fluoxetine 60 mg PO DAILY gabapentin 100 mg PO BEDTIME insulin glargine (Lantus Solostar U-100 Insulin) 55 units subcut BEDTIME insulin lispro (Humalog KwikPen (U-100) Insulin) 35 units subcut TID lidocaine 5% (Lidoderm) 1 patch topical DAILY PRN lisinopril 20 mg See Protocol PO DAILY meloxicam 15 mg PO DAILY 30 days HPI Comments Details: Patient is a 43 y.o. morbidly obese male with insulin dependent DM, HTN and HLD who presents for follow up Spoke with patient in cheesh-na language Interval History: Patient last seen 02/27/2024. At that time patient was being evaluated for polyarthralgias in the setting of elevated CRP. Workup not conclusive but MRI showed evidence of tenosynovitis Today patient can use to have hand pain bilaterally, arm pain left worse than right and whole-body pain. Does note some improvement with gabapentin 100 mg at night however this makes him very drowsy in the mornings. It does help him sleep Has not been able to do much exercise because the [facility] charges money and because he is not working and he depends on his for finances he has not done much out of the house. He says he does try to do some movement in the house. Rheumatologic History: Patient established care 02/2024 for evaluation of elevated CRP in the setting of polyarthalgia Exam did not show specific evidence of synovitis but he did have reduced flexibility of the spine (unsure if this was due to his weight) Further testing including HLA B27 was negative however his MRI showed tenosynovitis bilaterally Given this he was started on a trial of Humira 05/2024 He also had a component of fibromyalgia for which he is on gabapentin 100mg at night Current Rheumatology Medication(s): Gabapentin 100mg at night PFS Medical History Vitamin D deficiency Elevated C-reactive protein (CRP) Fibromyalgia Polyarthralgia Narcotic dependence Thrombocytopenia Carpal tunnel syndrome Sleep apnea Pre-op evaluation Hx of migraines BETSY on CPAP Pre-op evaluation HTN (hypertension), benign Insulin dependent type 1 diabetes mellitus Morbid obesity Shoulder dislocation Diabetes Surgical History Hx of colonoscopy History of esophagogastroduodenoscopy (EGD) Hx of hernia repair Hx of appendectomy Family History Mother No problems noted. Brother No problems noted. Daughter No problems noted. Daughter No problems noted. Daughter No problems noted. Son No problems noted. Son No problems noted. 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 Unable to get up to exam table Unable to rise from chair without assistance. ?Walks with cane Constitutional: ?Mucous membranes pink and moist patient alert and cooperative HEENT: ?Conjunctiva and sclera clear. ?Pupils equal round and reactive to light. ?No lymphadenopathy. ?Normal dentition. Resp: ?Normal respiratory effort and able to speak in complete sentences. ?Clear to auscultation bilaterally. ?No crackles, rales, rhonchi, wheezes heard. Cards: ?Regular rate and rhythm. ?S1 and S2 heard no murmurs. ?Radial pulses intact bilaterally MSK: ?Patient with positive fibromyalgia tender points. Patient with questionable tenderness to palpation of the MCPs however when asked if the muscle group was painful he said that they were also painful. No swelling no warmth. Anabel's test: Decreased mobility. Results Reviewed Results Reviewed: Laboratory Tests 04/24/24 05/16/24 05/17/24 11:23 18:10 15:42 WBC 6.6 10.6 RBC 4.37 L 4.61 Hgb 12.3 L 13.0 L Hct 37.5 L 38.5 L Plt Count 115 L 141 L ESR 33 H Sodium 139 Potassium 4.1 Chloride 103 Carbon Dioxide 26 BUN 14 Creatinine 0.99 AST 24 ALT 17 Alkaline Phosphatase 78 Total Protein 7.8 Albumin 3.8 Rheumatoid Factor < 13.0 Cycl Citrul Peptide IgG <16 COLLETTE Screen NEGATIVE HLA-B27 Negative Hand MRI Left 03/2024 FINDINGS: No acute fracture or dislocation. Normal carpal alignment. Intact articular cartilage. No concerning lytic or blastic osseous lesion. A small amount of fluid within the extensor carpi radialis brevis, extensor carpi radialis longus, and minimally within the extensor digitorum tendon sheaths, consistent with minimal tenosynovitis. A transverse tendon tear or tendon retraction. Intact median nerve. Intact collateral ligaments. No soft tissue mass or fluid collection. No significant joint effusion. Hand MRI Right 03/2024 FINDINGS: No acute fracture or dislocation. No marrow edema or evidence of acute osseous injury. Normal carpal alignment. No concerning lytic or blastic osseous lesion. Minimal degenerative arthritis at the 3rd carpometacarpal joint. No periarticular erosion or evidence of infectious or inflammatory arthropathy. Trace fluid within the extensor carpi radialis brevis and extensor carpi radialis longus tendon sheaths, consistent with minimal tenosynovitis. No transverse tendon tear or tendon retraction. Unremarkable median nerve. Grossly intact collateral ligaments. No evidence of acute injury. No soft tissue mass or fluid collection. No significant joint effusion. Assessment & Plan Assessment & Plan (1) Seronegative spondyloarthropathy: Code(s): M47.819 - Spondylosis without myelopathy or radiculopathy, site unspecified Category: Medical Plan: #Seronegative spondyloarthropathy Patient with elevated inflammatory markers, evidence of tenosynovitis on MRI of hands bilaterally and negative RF/CCP/COLLETTE. Overall the exam and objective findings are not conclusive however given his elevated inflammatory markers and tenosynovitis on MRI he does warrant a trial of Humira. He does note that meloxicam sometimes helps with his pain but due to stomach issues she can not take it consistently. We will treat him as a seronegative spondyloarthritis, peripheral/enthesitis dominance. Plan - Humira 40mg SC every 2 weeks - Gabapentin 100mg nightly - Check Hep B, C and T spot - RTC 4-5 months (2) Fibromyalgia: Code(s): M79.7 - Fibromyalgia Category: Medical Plan: #Fibromyalgia Has some improvement with gabapentin Unable to optimize dosing due to drowsiness in the AM Plan - Continue gabapentin 100mg at night (3) Adalimumab (Humira) long-term use: Code(s): Z79.620 - manager terminal (current) use of immunosuppressive biologic Plan: #Long-term Use of TNF Inhibitors: Humira Discussed with the patient the benefits and risks of TNF inhibitors for the management of the rheumatic condition Benefits include reduce pain, maintenance of remission and reduction of flares as well as ?progression of the disease Risks include injection sites/infusion reactions, serious infections (such as bacterial infections, opportunistic infections), malignancy, delaminating syndromes, autoimmune phenomena, CHF exacerbations, palmar plantar psoriasis and cytopenias Recommended rotating injection sites, and holding medication during and for up to 1 week after resolution of a febrile illness or open skin wound Plan I spent 30 minutes reviewing the record and labs, seeing the patient, discussing the treatment plan and documenting in the medical record ? Orders: Orders Hepatitis A,B,C Profile Today M06.00 - Rheumatoid arthritis without rheumatoid factor, unspecified site T Spot TB Today M06.00 - Rheumatoid arthritis without rheumatoid factor, unspecified site Medications: New adalimumab (Humira(CF) Pen) 40 mg (0.4 mL) subcut Q2W 2 ea 6RF M46.90 - Unspecified inflammatory spondylopathy, site unspecified, M47.819 - Spondylosis without myelopathy or radiculopathy, site unspecified Coding Level of Care Code Est Pt Level 4 (48729) Complex EM visit Add On G2211 Diagnoses Seronegative spondyloarthropathy M47.819 Fibromyalgia M79.7 Adalimumab (Humira) long-term use Z79.620
== END 2024-05-30 12:24 | disposition home or self-care (01) ==
PROVIDERS: Visit Provider Student in an Organized Health Care Education/Training Program
DX: M47.819 Spondylosis without myelopathy or radiculopathy, site unspecified (principal); M79.7 Fibromyalgia; Z79.620 Long term (current) use of immunosuppressive biologic
CPT/HCPCS: 99214

== ENCOUNTER → 2024-05-30 11:21 | Outpatient (BNVA) | payer MEDICAID, SELFPAY | PROVIDERS: Visit Provider Student in an Organized Health Care Education/Training Program | DX: M79.7 Fibromyalgia (principal); M47.819 Spondylosis without myelopathy or radiculopathy, site unspecified; Z79.620 Long term (current) use of immunosuppressive biologic | CPT/HCPCS: 99212 ==

== ENCOUNTER 2024-06-04 10:33 | Emergency (ER) | payer MEDICAID, SELFPAY ==
--- NOTE | 2024-06-04 | ECG_ITS ---
Test Reason : CHEST PAIN Blood Pressure : */* mmHG Vent. Rate : 67 BPM Atrial Rate : 67 BPM P-R Int : 118 ms QRS Dur : 82 ms QT Int : 396 ms P-R-T Axes : 64 41 45 degrees QTcB Int : 418 ms Artifact in tracing Normal sinus rhythm Normal ECG When compared with ECG of may 06 2024 No significant changes seen Referred By: Generic ED Physician Electronically Signed By: RAMIN HEREDIA
--- NOTE | ~2024-06-04 | XR_ITS ---
CLINICAL HISTORY: neck pain to LUE 5 views cervical spine Comparison: CT/SR - CT CERVICAL SPINE WO CON - 09/03/21 14:41 EDT Findings: Straightening of the cervical lordosis. No acute fractures or dislocation. Mild degenerative changes of the cervical spine with mild narrowing of the C5-C6 intervertebral disc space and osteophytes. Prevertebral soft tissues within normal limits. IMPRESSION: No acute findings. Mild degenerative changes. This document has been electronically signed by: Brenna Bush MD on 06/04/2024 17:58:55
--- NOTE | ~2024-06-04 | XR_ITS ---
CLINICAL HISTORY: Chest pain 1 view chest x-ray Comparison: CR/SR - XR CHEST 2V - 06/06/23 10:02 EST Findings: The lungs are clear. Heart size is normal. No acute fracture. IMPRESSION: 1. No acute findings. This document has been electronically signed by: Taty Rodriguez MD on 06/04/2024 17:03:49
[2024-06-04 10:50] VITALS: BP 203/92; PULSE 66; RESP 18; TEMP 36.6; O2SAT 99; BMI 65.7
[2024-06-04 11:59] LABS: MANUAL DIFF FLAG NO
[2024-06-04 12:00] LABS: Basophils Percent Auto 0.4 % (0-2); Eosinophils Absolute Auto 0.1 X10*3/uL (0.0-0.4); Eosinophils Percent Auto 1.5 % (0-4); Hematocrit 36.6 % (42.0-52.0); Hemoglobin 12.2 g/dl (14.0-18.0); Imm Gran Abs Auto 0.06 X10*3/uL (0.00-0.03); Imm Gran Pct Auto 0.7 % (0.0-0.4); Lymphocytes Absolute Auto 1.5 X10*3/uL (1.2-4.9); Lymphocytes Percent Auto 18.5 % (20-40); Mean Corpuscular HGB Conc 33.3 g/dl (31.0-36.0); Mean Corpuscular Hemoglobin 28.1 pg (27.0-33.0); Mean Corpuscular Volume 84.3 fL (80.0-98.0); Mean Platelet Volume 12.5 fL (9.4-12.4); Monocytes Absolute Auto 0.6 X10*3/uL (0.1-1.2); Monocytes Percent Auto 7.3 % (2-11); Neutrophils Absolute Auto 5.8 x10*3/uL (2.0-8.3); Neutrophils Percent Auto 71.6 % (45-73); Platelet Count 118 X10*3/uL (160-400); Red Blood Count 4.34 X10*6/uL (4.60-5.80); White Blood Count 8.1 X10*3/uL (4.8-10.8)
[2024-06-04 12:12] LABS: Anion Gap 9 (12-20); Blood Urea Nitrogen 17 mg/dL (9-16); Calcium 9.3 mg/dL (8.4-10.2); Carbon Dioxide 28 mmol/L (22-29); Chloride 105 mmol/L (96-108); Creatinine Clr Calc Pharmacy 150.8; Estimated Glomerular Filt Rate > 60; Glucose Random 130 mg/dL (60-115); Potassium 4.2 mmol/L (3.3-5.1); Sodium 138 mmol/L (135-145)
[2024-06-04 12:24] LABS: Troponin-I High Sensitivity < 2.7 ng/L (<3.5-35.0)
[2024-06-04 16:44] LABS: Glucose, Whole Blood 106 mg/dL (60-115)
--- NOTE | 2024-06-04 16:52 | ED_ITS ---
HPI - General Adult General Chief complaint: General Medical Stated complaint: Chest pain Time Seen by Provider: 06/04/24 16:50 Source: patient Mode of arrival: ambulatory Limitations: no limitations History of Present Illness ED Provider: ABELARDO Fabian HPI narrative: A 43-year-old male history of arthritis, anemia, obesity, obstructive sleep apnea on CPAP, hypertension, hyperlipidemia, diabetes, fibromyalgia, PTSD, major depression, opiate use disorder presents with complaints of left upper extremity pain and neck pain ongoing for the past few weeks. Patient reports this pain is debilitating. He reports it hurts when he moves his neck and when he tries to move his left upper extremity. This is atraumatic in nature. Pain is worse with movement better at rest. He states he is awakening from his sleep at night due to the pain. Reports intermittent tingling to his left upper extremity. No numbness. He reports when the pain is severe he at time feels it in his anterior chest wall however not always. Not present at this time. No upper extremity numbness, weakness, clumsiness, urinary or bowel incontinence or retention. Denies chest pain, shortness of breath, fevers, chills, headache, vision changes, saddle anesthesias, nausea, vomiting, abdominal pain. Related Data Home Medications ?Medication ?Instructions ?Recorded ?Confirmed insulin lispro 100 unit/mL 35 unit subcut TID 07/26/21 05/30/24 subcutaneous pen (Humalog KwikPen (U-100) Insulin) buprenorphine 8 mg-naloxone 2 mg 1 film sublingual TID 02/09/22 05/30/24 sublingual film (Suboxone) insulin glargine 100 unit/mL (3 55 unit subcut BEDTIME 04/22/24 05/30/24 mL) subcutaneous pen (Lantus Solostar U-100 Insulin) lidocaine 5 % topical patch 1 patch topical DAILY PRN Pain 05/16/24 05/30/24 (Lidoderm) Previous Rx's ?Medication ?Instructions ?Recorded meloxicam 15 mg tablet 15 mg PO DAILY 30 days #30 tabs 03/16/22 gabapentin 100 mg capsule 100 mg PO BEDTIME #90 caps 02/27/24 cholecalciferol (vitamin D3) 1,250 1,250 mcg PO QWEEK 3 months #13 04/30/24 mcg (50,000 unit) capsule caps fluoxetine 60 mg tablet 60 mg PO DAILY #30 tabs 05/18/24 lisinopril 20 mg tablet 20 mg PO DAILY #30 tabs 05/18/24 adalimumab 40 mg/0.4 mL 40 mg (0.4 mL) subcut Q2W #2 ea 05/30/24 subcutaneous pen kit (Humira(CF) Pen) acetaminophen 500 mg tablet 500 mg PO Q6H PRN pain #20 tabs 06/04/24 (Acetaminophen Extra Strength) lidocaine 5 % topical patch 1 patch topical DAILY PRN pain #15 06/04/24 ea prednisone 20 mg tablet 40 mg (2 x 20 mg) PO DAILY 5 days 06/04/24 #10 tabs Allergies Allergy/AdvReac Type Severity Reaction Status Date / Time seafood Allergy Severe Swelling Verified 06/04/24 10:56 Review of Systems 2 Review of Systems: Yes all other systems are reviewed and are negative [facility] Past Medical History Attestation statement: The following information was validated with the patient. Source: old records reviewed and nursing notes reviewed Medical History Seronegative spondyloarthropathy Seronegative spondylitis Vitamin D deficiency Elevated C-reactive protein (CRP) Fibromyalgia Polyarthralgia Narcotic dependence Thrombocytopenia Carpal tunnel syndrome Sleep apnea Pre-op evaluation Hx of migraines BETSY on CPAP Pre-op evaluation HTN (hypertension), benign Insulin dependent type 1 diabetes mellitus Morbid obesity Shoulder dislocation Diabetes Surgical History Hx of colonoscopy History of esophagogastroduodenoscopy (EGD) Hx of hernia repair Hx of appendectomy Family History Family History Mother No problems noted. Brother No problems noted. Daughter No problems noted. Daughter No problems noted. Daughter No problems noted. Son No problems noted. Son No problems noted. 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 No signs of hypertensive urgency or emergency at this time. Appearance: Alert.? Oriented X3.? No acute distress.? Head: Normocephalic, atraumatic, no step-offs or deformities Eyes: Pupils equal, round and reactive to light.? Neck: Normal inspection.? No midline pain. Patient has left-sided cervical paraspinous muscle tenderness to palpation on exam with associated left-sided trapezius and rhomboid discomfort with palpation. ? CVS: Normal heart rate and rhythm.? Pulses normal.? Tenderness to palpation to left-sided anterior chest wall Respiratory: No respiratory distress.? Breath sounds normal.? Abdomen: Soft and nontender.? Skin: Skin warm and dry.? Normal skin color.? Normal skin turgor.? Extremities: No lower extremity edema.? No calf ttp. 5/5 strength to right upper extremity and bilateral lower extremities. Left upper extremity strength difficult to assess as patient reports pain to left upper extremity. 2+ radial pulses. Normal hand patient service representative bilaterally. No wrist drop. Normal distal sensation bilaterally. Capillary refill intact less than 2 seconds. Neuro: Oriented X 3.? No motor deficit.? No sensory deficit. CN 2-12 intact . Normal ilfand-ga-ozzw, lbpi-rt-vvkv steady tandem gait normal coordination Course Reevaluation(s) Reevaluation #1: CBC with a baseline normocytic anemia. Chemistry with no acute findings needing intervention. Normal point of care 106. Troponin negative, EKG nonischemic. Second troponin and BNP pending. Time: 17:17 Reevaluation #2: X-ray of cervical spine still pending, lab work pending. Time: 17:17 Reevaluation #3: Degenerative changes noted on on x-ray of cervical spine. I still suspect cervical radiculopathy. Patient's BNP and troponin hemolyzed he is not willing to allow staff members to redraw him. He understands risks of not getting this done ACS could be missed. Low suspicion for ACS however. Patient would like to go home. Educated patient on diagnosis and treatment plan, answered all question, patient verbalizes understanding. At this time patient will be discharged home, advised to return with new or worsening symptoms. Educated on worrisome signs and symptoms and when to return. At this time I feel comfortable discharge home. Time: 18:18 Medical Decision Making Medical Decision Making MDM Narrative: 43-year-old male presents with left arm pain and neck pain ongoing for few weeks worsening. Physical painful range of motion of left upper extremity and cervical paraspinous muscle tenderness on exam. Neurologically intact. Regular rate and rhythm. Lungs clear. Tenderness to palpation to left-sided anterior chest wall History and physical exam concerning for cervical radiculopathy following a C4- C5 distribution. Other differentials include torticollis, facet mediated pain in the cervical spine. Unlikely atypical presentation of ACS, dissection, carotid dissection, cervical myelopathy, cord compression. History and physical exam not consistent with stroke. And chair chest wall discomfort could be secondary to cervical radiculopathy I do not suspect PE. Plan labs, x-ray, POC, EKG Differential Diagnosis Differential Diagnoses: The differential diagnosis associated with the presentation includes (History and physical exam concerning for cervical radiculopathy. Other differentials include torticollis, facet mediated pain in the cervical spine. Unlikely atypical presentation of ACS, dissection, carotid dissection, cervical myelopathy, cord compression.) Admission/Observation Consideration of admission/observation: Escalation of care including admission/observation considered (unlikely) Lab Data [facility] Lab Attestation statement: I reviewed the patient's lab results. 06/04/24 11:28 06/04/24 11:28 Labs: Lab Results 06/04/24 06/04/24 Range/Units 11:28 16:40 WBC 8.1 (4.8-10.8) X10*3/uL RBC 4.34 L (4.60-5.80) X10*6/uL Hgb 12.2 L (14.0-18.0) g/dl Hct 36.6 L (42.0-52.0) % MCV 84.3 (80.0-98.0) fL MCH 28.1 (27.0-33.0) pg MCHC 33.3 (31.0-36.0) g/dl RDW 13.0 (11.0-16.0) % Plt Count 118 L (160-400) X10*3/uL MPV 12.5 H (9.4-12.4) fL Immature Gran % (Auto) 0.7 H (0.0-0.4) % Neut % (Auto) 71.6 (45-73) % Lymph % (Auto) 18.5 L (20-40) % [place] % (Auto) 7.3 (2-11) % Eos % (Auto) 1.5 (0-4) % Baso % (Auto) 0.4 (0-2) % Lymph # (Auto) 1.5 (1.2-4.9) X10*3/uL [place] # (Auto) 0.6 (0.1-1.2) X10*3/uL Eos # (Auto) 0.1 (0.0-0.4) X10*3/uL Baso # (Auto) 0.0 (0.0-0.2) X10*3/uL Abs Immat Gran (auto) 0.06 H (0.00-0.03) X10*3/uL Absolute Neuts (auto) 5.8 (2.0-8.3) x10*3/uL Absolute Nucleated RBC 0.000 (0.0-0.012) X10*3/uL Nucleated RBC % (auto) 0.0 (0.0-0.2) /100WBC Sodium 138 (135-145) mmol/L Potassium 4.2 (3.3-5.1) mmol/L Chloride 105 (96-108) mmol/L Carbon Dioxide 28 (22-29) mmol/L Anion Gap 9 L (12-20) BUN 17 H (9-16) mg/dL Creatinine 0.98 (0.5-1.4) mg/dL Estim Creat Clear Calc 150.8 Estimated GFR > 60 POC Glucose 106 (60-115) mg/dL Random Glucose 130 H (60-115) mg/dL Calcium 9.3 (8.4-10.2) mg/dL Troponin I High Sens < 2.7 D (<3.5-35.0) ng/L Independent Interpretation I performed an independent interpretation of an: EKG (Normal sinus rhythm Normal ECG When compared with ECG of 04-Jun-2024 09:23, Vent. rate has decreased by [address] no longer elevated in Anterior leads T wave amplitude has increased in Lateral leads) and Plain X-Ray (1 view chest x-ray Comparison: CR/SR - XR CHEST 2V - 06/06/23 10:02 EST Findings: The lungs are clear. Heart size is normal. No acute fracture. IMPRESSION: 1. No acute findings.) Radiology Impression Discussion of test interpretation with radiology: I have reviewed the radiologist's reading. Independent Historian Clinical information obtained from an independent historian. History obtained from or confirmed by: Spouse External Record Review External record reviewed: Inpatient record, Office record, Outpatient record, Prior outpatient labs, Prior outpatient radiology, Primary care record and Outside ED record Prescription Management I considered prescription management with: Other (prednisone ) Chronic Conditions Patient?s care impacted by: Diabetes and Hypertension Critical Care Time Critical Care Time Critical Care Time: Yes Total Critical Care Time: 35 Attestation: I attest to this time spent taking care of the patient, obtaining history, physical, reviewing labs, imaging, treatment of patients condition +/- specialist/hospitalist consult Discharge Plan Discharge Clinical Impression: Cervical radiculopathy, Anterior chest wall pain Patient Disposition: Home, Self-Care Instructions: Chest Pain (ED), Cervical Radiculopathy (ED), Chest Wall Pain (ED) Additional Instructions: Take your medications as prescribed. If you were prescribed antibiotics today, it is important that you take your medication to their entirety, do not skip any doses, do not finish them early. Follow-up with your primary care provider this week. Return to the emergency department with new or worsening symptoms. Such as fevers, chills, chest pain, shortness of breath, nausea, vomiting, dizziness, headache, vision changes, lethargy In case of emergency call 911 Please follow-up with neuro spine. Your cardiac workup was reassuring. Take your gabapentin as prescribed by other provider. Cervical Spine Xray Findings: Straightening of the cervical lordosis. No acute fractures or dislocation. Mild degenerative changes of the cervical spine with mild narrowing of the C5-C6 intervertebral disc space and osteophytes. Prevertebral soft tissues within normal limits. IMPRESSION: No acute findings. Mild degenerative changes. Prescriptions: New prednisone 20 mg tablet 40 mg PO DAILY 5 Days Qty: 10 0RF lidocaine 5 % adhesive patch,medicated 1 patch topical DAILY PRN (Reason: pain) Qty: 15 0RF Rx Instructions: leave on most painful area for up to 12 hrs acetaminophen [Acetaminophen Extra Strength] 500 mg tablet 500 mg PO Q6H PRN (Reason: pain) Qty: 20 0RF No Action meloxicam 15 mg tablet 15 mg PO DAILY 30 Days Qty: 30 0RF cholecalciferol (vitamin D3) 1,250 mcg (50,000 unit) capsule 1,250 mcg PO QWEEK 90 Days Qty: 13 0RF Rx Instructions: Wednesdays lidocaine [Lidoderm] 5 % adhesive patch,medicated 1 patch topical DAILY PRN (Reason: Pain) Rx Instructions: leave on most painful area for up to 12 hrs lisinopril 20 mg Tablet 20 mg PO DAILY Qty: 30 0RF Protocol: Hold for SBP< HOLD for SBP < : 90 fluoxetine 60 mg tablet 60 mg PO DAILY Qty: 30 0RF buprenorphine-naloxone [Suboxone] 8-2 mg film 1 film sublingual TID insulin lispro [Humalog KwikPen Insulin] 100 unit/mL insulin pen 35 unit subcut TID gabapentin 100 mg capsule 100 mg PO BEDTIME Qty: 90 0RF Humira(CF) Pen 40 mg/0.4 mL pen injector kit 40 mg subcut Q2W Qty: 2 6RF insulin glargine [Lantus Solostar U-100 Insulin] 100 unit/mL (3 mL) insulin pen 55 unit subcut BEDTIME Referrals: [facility] [Primary Care Provider] - 2 days Clay Doyle MD, PhD [Physician] - 1 day Stand Alone Forms: Work/School Release Print Language: Liberian
[2024-06-04 16:56] VITALS: BP 144/77; RESP 16
[2024-06-04 18:24] VITALS: BP 144/77; PULSE 0; RESP 16; TEMP -17.7; TEMP 0
== END 2024-06-04 18:24 | disposition home or self-care (01) ==
PROVIDERS: Emergency Provider Emergency Medicine Emergency Medical Services
DX: M54.12 Radiculopathy, cervical region (principal); R07.89 Other chest pain; M54.2 Cervicalgia; Z79.899 Other long term (current) drug therapy
CPT/HCPCS: 36415; 71045; 72040; 80048; 82947; 84484; 85025; 93005; 99283

== ENCOUNTER → 2024-06-04 10:44 | Outpatient (BNV) | payer MEDICAID, SELFPAY | PROVIDERS: Emergency Provider Emergency Medicine Emergency Medical Services; Visit Provider Internal Medicine | DX: R07.9 Chest pain, unspecified (principal) | CPT/HCPCS: 93010 ==

== ENCOUNTER → 2024-06-04 16:30 | Outpatient (BNV) | payer MEDICAID, SELFPAY | PROVIDERS: Emergency Provider Emergency Medicine Emergency Medical Services; Visit Provider Radiology Diagnostic Radiology | DX: R07.9 Chest pain, unspecified (principal); M54.2 Cervicalgia | CPT/HCPCS: 71045; 72040 ==

== ENCOUNTER 2024-06-17 13:48 | Outpatient (AMB) | payer MEDICAID, SELFPAY ==
--- NOTE | 2024-06-17 14:33 | A.OFFVIS_ITS ---
Vital Signs 06/17/24 14:35 Height 5 ft 6 in Weight 388 lb 0.217 oz BMI 62.6 BP 121/57 L Blood Pressure Location Lt brachial Position Sitting Pulse 79 Intake Visit Reasons: 2 month follow up Intake Note: Ross presents in the office as a 2 month follow up. CC: HE states that he is still having all the same issues. He is now on the humira and he states that he is not sure if it is helping yet because he is still having the pains in the stomach. Automatic Casting Machine Operator Required: Yes Automatic Casting Machine Operator Name: [id number] Gar[place] Allergies seafood Allergy (Severe, Verified 06/17/24 14:37) Swelling HPI Comments Details: 43 y.o M with PMH of super morbid obesity BMI 64, BETSY, hx of substance use who is here for anemia. Seen with skidder loader. Pt was prev seen by [facility] for EGD/colo for anemia on 12/20/23 which had to be canceled the day of the procedure as pt had active upper resp symptoms and had not prepped for the colonoscopy. Today, pt comes in for similar complaints as before i.e abd bloating and nausea. Occ vomiting, which is nonbilious sometimes with streaks of blood. In addition he also intermittent diarrhea and blood on wiping. Last month he also passed ? worm (has a picture on the phone). Does not report recent travel outside [place]. Labs reviewed and NON iron deficiency anemia noted. In addition, pt also with evidence of fatty liver with most recent CBC showing thrombocytopenia concerning for possible CSPH. 06/17/24: Here for follow up. Reports some improvement in upper GI sx since dietary modification. Otherwise diarrhea is persistent. Sees blood on wipiing occasionally. Main limiting factor to [place] EGD/colo remains the stress test. Pt again seen in ER last week for chest pain. Elastography done and read pending. Laboratory Tests 04/24/24 11:23 Hgb 12.3 L Hct 37.5 L Plt Count 115 L INR 1.0 BUN 20 H Creatinine 1.17 Random Glucose 175 H Hemoglobin A1c % 6.0 % Saturation 25 Ferritin 117 Total Bilirubin 0.8 AST 25 ALT 21 Alkaline Phosphatase 78 Liver Fibrosis Interp no fibrosis Necroinflammator Grade A0 C-Reactive Protein 1.27 H Triglycerides 132 Cholesterol 165 LDL Cholesterol, Calc 91 IgA 474 H Rheumatoid Factor < 13.0 COLLETTE Screen NEGATIVE Anti-Mitochondrial Ab NEGATIVE Anti-Smooth Muscle Ab <20 Tiss Transglutamin IgA <1.0 PEth 16:0/18.1 (POPEth) NEGATIVE Lisa/Kid Microsom Ab Int <=20.0 PFSH Medical History Seronegative spondyloarthropathy Seronegative spondylitis Vitamin D deficiency Elevated C-reactive protein (CRP) Fibromyalgia Polyarthralgia Narcotic dependence Thrombocytopenia Carpal tunnel syndrome Sleep apnea Pre-op evaluation Hx of migraines BETSY on CPAP Pre-op evaluation HTN (hypertension), benign Insulin dependent type 1 diabetes mellitus Morbid obesity Shoulder dislocation Diabetes Surgical History Hx of colonoscopy History of esophagogastroduodenoscopy (EGD) Hx of hernia repair Hx of appendectomy Family History Mother No problems noted. Brother No problems noted. Daughter No problems noted. Daughter No problems noted. Daughter No problems noted. Son No problems noted. Son No problems noted. 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 Review of Systems Const All systems reviewed & are unremarkable except as noted in HPI and below Physical Exam Vital Signs: Last Vital Signs Pulse 79 06/17/24 14:35 BP 121/57 L 06/17/24 14:35 BMI result Body Mass Index 62.6 Appears older than stated age With obesity Abd soft, distended Ambulates with walker Assessment & Plan Assessment & Plan (1) Diarrhea: Code(s): R19.7 - Diarrhea, unspecified Category: Medical (2) Fatty liver: Code(s): K76.0 - Fatty (change of) liver, not elsewhere classified Category: Medical (3) Hepatomegaly: Code(s): R16.0 - Hepatomegaly, not elsewhere classified Category: Medical (4) Epigastric pain: Code(s): R10.13 - Epigastric pain Category: Medical (5) Obesity, morbid, BMI 50 or higher: Code(s): E66.01 - Morbid (severe) obesity due to excess calories Category: Medical Plan 1. Epigastric pain, N,V Ddx include delayed emptying, GERD, PUD, dyspepsia. Sx better with avoidance of dietary triggers. Plan: - EGD pending as above. - Small frequent meals - Good glycemic control, to aim for BG <180 post meals - Avoid laying down within 2-3 hours of eating - Wedge pillow at night - Pt already on PPI through PCP 2. Intermittent diarrhea Celiac Ab neg. Stool studies pending. Plan: - Reminded to get stool studies done - EGD/colo to be booked AFTER stress test done - this was coordinated by Tay PACK with centralized scheduling and pt now has an appt in August. - Suprep Rxed as per pt's preference for small volume prep 3. Fatty liver Most likely MAFLD. Hep and chronic liver disease w/up negative. Interestingly fibrosure neg, however based on clinical assessment highsuspicion for at least some degree of underlying fibrosis from MAFLD. Reviewed natural progression and prognosis with pt. Plan: - Elastography results pending. Follow up after egd/colo. Medications: New sodium,potassium,mag sulfates 17.5-3.13-1.6 gram (Suprep Bowel Prep Kit) DILUTE as per instructions given 354 mL 0RF Coding Level of Care Code Est Pt Level 4 (40127) Diagnoses Diarrhea R19.7 Fatty liver K76.0 Hepatomegaly R16.0 Epigastric pain R10.13 Obesity, morbid, BMI 50 or higher E66.01
[2024-06-17 14:35] VITALS: BP 121/57; PULSE 79; BMI 62.6
== END 2024-06-17 15:32 | disposition home or self-care (01) ==
PROVIDERS: PCP Nurse Practitioner Primary Care; Visit Provider Internal Medicine
DX: R19.7 Diarrhea, unspecified (principal); K76.0 Fatty (change of) liver, not elsewhere classified; R16.0 Hepatomegaly, not elsewhere classified; R10.13 Epigastric pain; E66.01 Morbid (severe) obesity due to excess calories
CPT/HCPCS: 99214

== ENCOUNTER → 2024-06-17 13:48 | Outpatient (BNVA) | payer MEDICAID, SELFPAY | PROVIDERS: PCP Nurse Practitioner Primary Care; Visit Provider Internal Medicine | DX: K76.0 Fatty (change of) liver, not elsewhere classified (principal); R19.7 Diarrhea, unspecified; R16.0 Hepatomegaly, not elsewhere classified; R10.13 Epigastric pain; E66.01 Morbid (severe) obesity due to excess calories; Z68.44 Body mass index [BMI] 60.0-69.9, adult | CPT/HCPCS: 99212 ==

== ENCOUNTER 2024-06-18 06:23 | Outpatient (REF) | payer MEDICAID, SELFPAY ==
--- NOTE | ~2024-06-18 | FL_ITS ---
EXAMINATION: XR FLUOROSCOPY WITH IMAGES CLINICAL INFORMATION: Left shoulder intra-articular steroid injection. COMPARISON: 08/15/2022. TECHNIQUE: Fluoroscopy provided to: Dr. Arroyo Fluoroscopy time: 0.1 minutes DAP: 0.0402 mGycm2 Images: 1 FINDINGS: Solitary image demonstrates needle position within the superior left glenohumeral joint. Intra-articular injection of contrast. Refer to the full operative report for details. FL/FL guidance in treatment room IMPRESSION: Fluoroscopic guidance. Electronically signed by: Hamzah Mcdaniels MD 06/28/2024 09:51 AM [facility]
== END 2024-06-18 06:24 | disposition home or self-care (01) ==
LOC: CF 06:23
PROVIDERS: Visit Provider Anesthesiology
DX: M19.012 Primary osteoarthritis, left shoulder (principal)
CPT/HCPCS: 20610; J2003; J2795; J3301; Q9967

== ENCOUNTER 2024-06-18 14:11 | Outpatient (AMB) | payer MEDICAID, SELFPAY ==
[2024-06-18 14:24] VITALS: BP 183/86; PULSE 81; RESP 16; O2SAT 95
--- NOTE | 2024-06-18 14:24 | MHC.OFFVIS ---
Vital Signs 06/18/24 14:24 06/18/24 14:42 BP 183/86 H 166/84 H Blood Pressure Location Lt radial Lt radial Position Sitting Sitting Respiration 16 16 Pulse 81 73 Pulse Source Pulse Oximeter Pulse Oximeter Pulse Oximetry (%) 95 94 Oxygen Delivery Method Room Air Room Air Intake Visit Reasons: LEFT SHOULDER INJECTION Job Lithographer Required: Yes Job Lithographer Services: Job Lithographer Present Job Lithographer Name: Diogo [id number] Allergies seafood Allergy (Severe, Verified 06/18/24 14:24) Swelling Medication List - Last Reconciled 06/18/24 by Judi Nagy LPN acetaminophen (Acetaminophen Extra Strength) 500 mg PO Q6H PRN adalimumab (Humira(CF) Pen) 40 mg (0.4 mL) subcut Q2W ammonium lactate 12% topical ammonium lactate 12% appl topical betamethasone valerate 0.1% appl topical buprenorphine-naloxone 8-2 mg (Suboxone) 1 film sublingual TID cholecalciferol (vitamin D3) 1,250 mcg PO QWEEK 3 months clotrimazole 1% appl topical BID flash glucose sensor (FreeStyle Casey 2 Sensor kit) As directed fluoxetine 40 mg PO DAILY gabapentin 100 mg PO BEDTIME insulin glargine (Lantus Solostar U-100 Insulin) 55 units subcut BEDTIME insulin lispro (Humalog KwikPen (U-100) Insulin) 35 units subcut TID lidocaine 5% (Lidoderm) 1 patch topical DAILY PRN lidocaine 5% 1 patch topical DAILY PRN lisinopril 20 mg See Protocol PO DAILY meloxicam 15 mg PO DAILY 30 days sodium,potassium,mag sulfates 17.5-3.13-1.6 gram (Suprep Bowel Prep Kit) DILUTE as per instructions given zinc oxide 40% (Diaper Rash) topical PFSH Medical History Seronegative spondyloarthropathy Seronegative spondylitis Vitamin D deficiency Elevated C-reactive protein (CRP) Fibromyalgia Polyarthralgia Narcotic dependence Thrombocytopenia Carpal tunnel syndrome Sleep apnea Pre-op evaluation Hx of migraines BETSY on CPAP Pre-op evaluation HTN (hypertension), benign Insulin dependent type 1 diabetes mellitus Morbid obesity Shoulder dislocation Diabetes Surgical History Hx of colonoscopy History of esophagogastroduodenoscopy (EGD) Hx of hernia repair Hx of appendectomy Family History Mother No problems noted. Brother No problems noted. Daughter No problems noted. Daughter No problems noted. Daughter No problems noted. Son No problems noted. Son No problems noted. 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 Informed consent was explained to the patient. All questions were explained and? answered.? The patient was taken inside the operating room where he was positioned prone on operating table. Time-out was performed delineating correct site, side, the nature of the procedure, patient's allergy, preoperative antibiotic if needed.? All operating room staff was participating in OR time-out procedure.? The patient stated his name.. He is severely morbidly obese individual he was not able to hold his left arm alongside his body and requested me to allow him to keep his arm hanged down from the table that significantly complicated the positioning of the C-arm and driving the needle.. Area of his left shoulder was prepped with ChloraPrep and draped with sterile towels.? C-arm was brought over the operating field and the picture of left arm and glenohumeral joint were obtained on the screen.? The projection of the joint to the skin to the skin was noted, the direction of the needle was verify The skin was anesthetized using 2% lidocaine at the trochanter area.? 22 gauge 5 in needle was inserted through the skin and advanced to the shoulder joint silhouette on oblique view? the needle advancement proven to be very difficult. Multiple times attempts were made to enter the joint capsule. Significant resistance was met with needle entering the capsule. Injections of the contrast performed demonstrating periarticular spread of the contrast. After that injection of the ropivacaine 5 cc mixed with Kenalog 40 mg was performed periarticular only. The patient tolerated the procedure well. He was taking outside of the operating room where he recovered uneventfully.? (2) Morbid obesity: Code(s): E66.01 - Morbid (severe) obesity due to excess calories Category: Medical Plan injection as above Orders: Orders FL guidance in treatment room Today M19.012 - Primary osteoarthritis, left shoulder Coding Level of Care Code Procedure Only Diagnoses Osteoarthritis of left shoulder M19.012 Morbid obesity E66.01
[2024-06-18 14:42] VITALS: BP 166/84; PULSE 73; RESP 16; O2SAT 94
--- OUTSIDE RECORDS SUMMARY | 2024-06-18 16:12 | XMS_ITS | Encounter Summary ---
Author Organization [employer] Address [address] [place] [address] Care Team Providers Care Print Production Coordinator Name Role Phone Naheed Zaman Primary Care Provider [phone] Reason for Visit * Reason Comments Med Refill Encounter Details Date Type Department Care Team ([facility] st Contact Info) Description 06/09/2024 Refill [facility] MEDICINE [address] [place], [place] [phone] Naheed Zaman ANP [address] [place] [address] Social History Tobacco Use Types Packs/Day Years Used Date Smoking Tobacco: Never Passive Smoke Exposure: Never Smokeless Tobacco: Never Alcohol Use Standard Drinks/Week Comments Never 0 (1 standard drink = 0.6 oz pur e alcohol) Alcohol Answer Date Recorded Frequency of Alcohol Consumption Not on file 01/05/2024 Average Number of Drinks Not on file 024 Frequency of Binge Drinking Not on file 01/2024 Score 0 01/05/2024 Depression Answer Date Recorded Patient Health Questionnaire-9 Score 25 01/19/2024 Patient Health Questionnaire-9 Score 25 01/19/2024 Last PHQ-9: Questionnaire Data Not on file 0 01/19/2024 Housing Stability Answer Date Recorded What is your housing situation today? I have zack trejo 03/13/[address] you li ve. Do you have problems with any of the following? None of the above 03/13/2023 Food Insecurity Answer Date Recorded Within the past 12 months, y ou worried that your food would run out before you got money to buy more: Sometimes True 2023 Within the past 12 months,th e food you bought just didn't last and you didn't have enough money to get more: Sometimes True 06/27/2023 Transportation Answer Date Recorded In the past 12 months, has l ack of transportation kept you from medical appts, meetings, work or from getting things needed for daily living? No 03/13/2023 Utilities Answer Date Recorded In the past 12 months, has t he electric, gas, oil or water company threatened to shut off services in your home? No 08/31/2023 Depression Answer Date Recorded Patient Health Questionnaire-2 Score 6 01/19/2024 Sex and Gender Information Value Date Recorded Sex Assigned at Male 03/28/2022 10:21 AM EDT Legal Sex Male 10:21 AM EDT Gender Identity Male 03/28/2022 10:21 AM EDT Sexual Orientation Straight 03/28/2022 10 :21 AM EDT documented as of this encounter Plan of Treatment Upcoming Encounters Date Type Department Care Team (Late st Contact Info) Description 06/27/2024 11:15 AM EST Office Visit [facility] OPTOMETRY [address] [place] [phone] Kaitlyn Burk, OD [address] [place] [address] 06/27/2024 3:00 PM EST Office Visit [facility] MEDICINE [address] [place] [address] Rut Branham MD [address] [place] [phone] 07/10/2024 2:00 PM EST Office Visit [facility] MEDICINE [address] [place] [address] Naheed Zaman ANP [address] [place] [phone] 07/25/2024 3:00 PM EST Office Visit [facility] MEDICINE [address] [place] [phone] Rut Branham MD [address] [place] [phone] documented as of this encounter Visit Diagnoses Not on filedocumented in this encounter Additional Health Concerns Assessment Noted Time PHQ-9 Depression Total Score: 25 024 8:12 AM EDT documented as of this encounter Care Teams Print Production Coordinator Relationship Specialty Start Date End Date Naheed Zaman ANP [address] [place] [address] PCP - General Family Medicine 01/18/22 documented as of this encounter
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
--- OUTSIDE RECORDS SUMMARY | 2024-06-18 16:12 | XMS_ITS | Encounter Summary ---
Author Organization [employer] Address [address] [place] [address] Care Team Providers Care Gang Supervisor Pipe Lines Name Role Phone Naheed Zaman JOSIAH Primary Care Provider [phone] Reason for Visit * Reason Onset Date Comments Med Refill 06/18/2024 Encounter Details Date Type Department Care Team (Late st Contact Info) Description 06/18/[address] [facility] MEDICINE [address] [place] [address] Tristen Chen, APRIL [address] [place] [address] Uncomplicated opioid dependence (CMS/HCC) Social History Tobacco Use Types Packs/Day Years [...] Description 06/27/2024 11:15 AM EST Office Visit [facility] OPTOMETRY [address] [place] [address] GilmarceciliaKaitlyn, OD [address] [place] [address] 06/27/2024 3:00 PM EST Office Visit [facility] MEDICINE [address] [place] [phone] Rut Branham MD [address] [place] [phone] 07/10/2024 2:00 PM EST Office Visit [facility] MEDICINE [address] [place] [address] Naheed Zaman ANP [address] [place] [address] 07/25/2024 3:00 PM EST Office Visit [facility] MEDICINE [address] [place] [phone] Rut Branham MD [address] [place] [address] documented as of this encounter Visit Diagnoses Diagnosis Uncomplicated opioid dependence (CMS/HCC) documented in this encounter Additional Health Concerns Assessment Noted Time PHQ-9 Depression Total Score: 25 024 8:12 AM EDT documented as of this encounter Care Teams Gang Supervisor Pipe Lines Relationship Specialty Start Date End Date Naheed Zaman ANP [address] [place] [address] PCP - General Family Medicine 01/18/22 documented as of this encounter
--- OUTSIDE RECORDS SUMMARY | 2024-06-18 16:12 | XMS_ITS | Clinical Summary ---
Author Organization [employer] Address [address] [facility] [address] [place] [address] Care Team Providers Care Seam Hammerer Name Role Phone Sofia Mitchell JOSIAH Primary Care Provider [phone] Allergies Active Allergy Reactions Criticality Noted Date Comments Shellfish Allergy 05/02/2022 Medications * This document contains information received from the source organization and may not represent a complete record from that organization. Alcohol Swabs (Alcohol Prep) 70 % pads USE FOUR TIMES DAILY WITH INSULIN Active Blood Glucose Monitoring Suppl (FreeStyle Talmage Lite) w/Device kit TEST BLOOD SUGAR FOUR TIMES DAILY Active FREESTYLE LITE test strip TEST BLOOD SUGAR FOUR TIMES DAILY Active glucose blood (FREESTYLE LITE) test strip check fingerstick 4 times a day Active Sure Comfort Pen [place] 31G X 5 MM misc USE FOUR TIMES DAILY WITH INSULIN Active Vitron-C 65-125 MG tablet Take 1 tablet by mouth at bedtime. Active TRUEplus Lancets 33G misc TEST BLOOD SUGAR FOUR TIMES DAILY Active Lidoderm 5 % patch APPLY 1 PATCH TOPICALLY DAILY LEAVE ON MOST PAINFUL AREA FOR UP TO 12 HRS Active naloxone (Narcan) 4 mg/0.1 mL nasal spray Administer 0.1 mL into affected nostril(s). Active thiamine (Vitamin B-1) 50 MG tablet Take 50 mg by mouth in the morning. Active beta carotene (vitamin A) 3 MG (55488 UT) capsule TAKE 2 CAPSULES BY MOUTH EVERY DAY FOR 2 WEEKS 022 Active EPINEPHrine (Epipen) 0.3 MG/0.3ML injection syringeIndicatio ns:Allergy to shellfish INJECT INTRAMUSCULARLY DIRECTED ON PACKAGE AND GO TO EMERGENCY ROOM 2 each 023 Active famotidine (Pepcid) 20 MG tabletIndication s:Epigastric abdominal pain Take 1 tablet twice daily as needed for acid reflux 40 tablet 024 Active Blood Pressure Monitor kitIndications:P ulmonary hypertension ([facility]) 1 kit in the morning. 1 kit 024 Active metoclopramide (Reglan) 10 MG tablet 1 tablet as needed every 6 hrs for nausea/vomiting 40 tablet 024 Active atorvastatin (Lipitor) 10 MG tabletIndication s:Type 2 diabetes mellitus with hyperlipidemia (CMS/HCC) ([facility]) Take 1 tablet (10 mg) by mouth at bedtime. 90 tablet 3 024 Active GaviLAX 17 GM/SCOOP powder TAKE DIRECTED BY MOUTH THE DAY BEFORE YOUR PROCEDURE. 024 Active Carafate 1 GM/10ML suspension TAKE 10MLS BY MOUTH 4 TIMES DAILY BEFORE MEALS/BEDTIME FOR REFLUX FOR 4 WEEKS 024 Active chlorhexidine (Peridex) 0.12 % solution Swish 15 mL morning and night for 1 minute. Spit, do not swallow. Do not eat or drink for 30 minutes following use. 473 mL 024 Active Continuous Glucose Special Education Instructor (FreeStyle Casey 2 [place]) deviceIndication s:Diabetes mellitus with albuminuria (CMS/HCC) ([facility]) Scan sensor every 8 hours 1 each 024 Active Continuous Glucose Sensor (FreeStyle Casey 2 Sensor) miscIndications: Diabetes mellitus with albuminuria (CMS/HCC) ([facility]) Apply 1 sensor every 14 days 2 each 024 Active glucose blood (FreeStyle Precision Lefty Test) test stripIndications :Diabetes mellitus with albuminuria (CMS/HCC) ([facility]) Use to test blood sugar 3 times daily 100 each 12 024 2024 Active lisinopril 20 MG tabletIndication s:Type 2 diabetes mellitus with hyperlipidemia (CMS/HCC) (CMS/HCC),Persis tent proteinuria Take 1 tablet (20 mg) by mouth Once per day. 90 tablet 1 Active meloxicam (Mobic) 15 MG tabletIndication s:Chronic low back pain without sciatica, unspecified back pain laterality TAKE 1 TABLET BY MOUTH EVERY DAY NEEDED FOR PAIN 30 tablet 3 Active glucose (BD Glucose) 5 g chewable tabletIndication s:Type 2 diabetes mellitus with hyperlipidemia (CMS/HCC) ([facility]) Chew 3 tablets (15 g) if needed for low blood sugar. 50 tablet 5 024 2024 Active esomeprazole (NexIUM) [address] capsuleIndicatio ns:Gastroesophag eal reflux disease, unspecified whether esophagitis present Take 1 capsule (40 mg) by mouth before breakfast. Do not open capsule. 90 capsule 1 024 2024 Active semaglutide (Ozempic) 2 MG/1.5ML solution pen-injectorIndi cations:Type 2 diabetes mellitus with hyperlipidemia (CMS/HCC) ([facility]) 0.25 subcutaneous once weekly for 4 weeks, then increase to 0.5 mg once weekly 1 each 12 Active betamethasone valerate (Valisone) 0.1 % creamIndications :Venous stasis dermatitis of both lower extremities Apply topically if needed in the morning and at bedtime (dryness). 45 g 2 Active ammonium lactate (Amlactin) 12 % creamIndications :Venous stasis dermatitis of both lower extremities Apply topically if needed for dry skin. 385 g 024 2024 Active liver oil-zinc oxide (Desitin) 40 % ointment Apply topically if needed in the morning and at bedtime for irritation. 56 g 024 Active FLUoxetine (PROzac) 40 MG capsuleIndicatio ns:Severe episode of recurrent major depressive disorder, without psychotic features (CMS/HCC) TAKE 1 CAPSULE BY MOUTH EVERY DAY 30 capsule 2 Active Suboxone 8-2 MG SL filmIndications: Uncomplicated opioid dependence (CMS/HCC) Place 3 Film under the tongue Once per day for 28 days. 84 Film 024 2024 Active Lantus SoloStar 100 UNIT/ML pen INJECT 55 UNITS SUBCUTANEOUSLY EVERY NIGHT 15 mL 3 025 Active FLUoxetine (PROzac) 40 MG capsuleIndicatio ns:Severe episode of recurrent major depressive disorder, without psychotic features (CMS/HCC) Take 1 capsule (40 mg) by mouth Once per day. 30 capsule 2 024 2023 Discontinued insulin glargine (Lantus SoloStar) 100 UNIT/ML pen INJECT 55 UNITS SUBCUTANEOUSLY EVERY NIGHT 15 mL 2 024 2024 Discontinued Suboxone 8-2 MG SL filmIndications: Uncomplicated opioid dependence (CMS/HCC) Place 3 Film under the tongue Once per day for 28 days. 84 Film 024 2023 Discontinued( Reorder (will not trigger notification to Pharmacy)) clotrimazole (Lotrimin) 1 % cream Apply topically 2 times daily for 28 days. 30 g 2 024 2024 Active Problems Problem Noted Date Diagnosed Date Candidiasis of perineum 05/20/2024 Assessment & Plan (05/20/2024 3:25 PM EST): Advised to wash perineal area with lukewarm water + baking soda, keep area dry and apply clotrimazole cream + Desitin bid Keep DM under control Venous stasis dermatitis of both lower extremiti es 04/24/2024 Assessment & Plan (04/24/2024 3:16 PM EST): Patient reports he used to use compression stockings but they tired apart Use moisturizer every day Betamethasone apply BID for 2 weeks Use ammonium lactate cream daily Referral to derm and vascular Reports back if there is no improvement Venous insufficiency of both lower extremities 1 06/24/2023 Assessment & Plan (04/24/2024 3:17 PM EST): Acetaminophen PRN for leg pain Vascular referral Headache 01/11/2024 Assessment & Plan (01/11/2024 5:50 PM EDT): Pt endorses worst headache of life which occurred during exertion, it is currently intractable, reviewed ddx and urgency of STAT CT, pt reluctant but willing to go to ER, will drive, expect called MICHAEL (generalized anxiety disorder) 12/15/2023 Opioid use disorder 11/17/2023 Severe episode of recurrent major depressive disorder, without psychotic features 09/20/2023 Assessment & Plan (02/08/2024 2:34 PM EDT): PROGRESS NOTE: ID: Ross is a 43 y.o. straight-identified cis-male with previous documented hx of Depression, Anxiety, and Opioid Use Disorder No previous hx of MH services who presents for Depression, Anxiety, and Substance Use Disorder. During IBH Consult Rsos presenting with depressed mood, Tearful, crying spells , hopelessness, irritable mood, loss of interests/pleasure , sense of isolation/loneliness , isolating, change in appetite or weight reduce appetite, changes in sleep difficulty falling asleep and difficulty staying asleep , psychomotor retardation, fatigue/loss of energy, worthlessness, inappropriate/excessive guilt , indecisiveness, recurrent thoughts of , excessive worry/anxiety, difficulty controlling worry, anxiety/worry associated to restlessness and/or feeling keyed-up/On edge , easily fatigued , difficulty concentrating and/or mind going blank , irritability, muscle tension , and sleep disturbance difficulty falling asleep and difficulty staying asleep , Fear , and sense of dread , and thoughts about relapsing, as he used to feel better when he was using, in regard to Opioids; for a period of 18+ mo, for most or all symptoms in the context of chronic pain, increase in fatigue, racing thought about using to feel better, financial struggle, increase dependence in others, lack of support from adult children and dental issues. PLAN: (check all that apply) Behavioral Health Integration Plan Internal Follow up with [facility] Patient Self Plan Patient [facility], Comply with medication , and Patient to reach out to [facility] as needed Assessment & Plan (01/19/2024 8:43 AM EDT): PROGRESS NOTE: ID: Ross is a 43 y.o. straight-identified cis-male with previous documented hx of Depression, Anxiety, and Opioid Use Disorder No previous hx of MH services who presents for Depression, Anxiety, and Substance Use Disorder. During IBH Consult Ross presenting with depressed mood, Tearful, crying spells , hopelessness, irritable mood, loss of interests/pleasure , sense of isolation/loneliness , isolating, change in appetite or weight reduce appetite, changes in sleep difficulty falling asleep and difficulty staying asleep , psychomotor retardation, fatigue/loss of energy, worthlessness, recurrent thoughts of , excessive worry/anxiety, difficulty controlling worry, anxiety/worry associated to easily fatigued , difficulty concentrating and/or mind going blank , irritability, muscle tension , and sleep disturbance difficulty falling asleep and difficulty staying asleep , Fear , and sense of dread , and Ross verbalized that he has thoughts about relapsing as he recall when he was in active addiction he was feeling better and was franco to provide for his family, in regard to Opioids; for a period of 18+ mo, for some symptoms and relapse thoughts are recent in the context of chronic pain, financial instability, stress relationship with family, concern about his and his health . PLAN: Further services needed, but declined Behavioral Health Integration Plan Internal Follow up with [facility] Patient Self Plan Patient to [facility] as needed, Comply with medication , and Patient to reach out to [facility] as needed Assessment & Plan (01/05/2024 8:44 AM EDT): PROGRESS NOTE: ID: Ross is a 43 y.o. straight-identified cis-male with previous documented hx of Depression, Anxiety, and Opioid Use Disorder No previous hx of services who presents for Depression, Anxiety, and Substance Use Disorder. During IBH Consult Ross presenting with depressed mood, loss of interests/pleasure , changes in sleep difficulty falling asleep and difficulty staying asleep , change in appetite or weight overeating, psychomotor retardation, trouble concentrating, thoughts of worthlessness or guilt, fatigue/loss of energy, hopelessness, passive suicidal ideation w/o plan, excessive worry/anxiety, difficulty controlling worry, restless/keyed up/On edge, easily fatigued, difficulty concentrating/Mind going blank , irritability, muscle tension, and sleep disturbance difficulty falling asleep and difficulty staying asleep , and ross reported has been sober for 2 years, denies cravings, and negative thoughts about substance use, currently on OBAT, taking 24mg of suboxone/day, in regard to Opioids; for a period of 18+ mo, for all symptoms in the context of health issues, concern about health issues, stress relationship with adult children, financial instability, lack of employment. PLAN: Further services needed, but declined Behavioral Health Integration Plan Internal Follow up with [facility] Patient Self Plan Patient to utilize skills provided in intervention , Patient to reach out to [facility] team as needed, and Patient to reach out to [facility] as needed Assessment & Plan (11/17/2023 3:54 PM EDT): PROGRESS NOTE: ID: Ross is a 43 y.o. straight-identified cis-male with previous documented hx of Depression No previous hx of services who presents for Depression. During IBH Consult Ross presenting with depressed mood, loss of interests/pleasure , changes in sleep difficulty falling asleep and difficulty staying asleep , change in appetite or weight reduce appetite, psychomotor retardation, trouble concentrating, thoughts of worthlessness or guilt, fatigue/loss of energy, worthlessness , thoughts of and hx of substance use started at age of 15 y/o. Ross has been in MAT since 11/2021, currently taking suboxone 24 mg/day, denies cravings or side effects , in regard to Opioids; for a period of 18+ mo, for all symptoms in the context of stress relationship with adult children, medical comorbidity, knee injury since 04/2023, financial instability due to lack of employment, lack of OP services. Ross presented with increase of depressive sxs. He verbalized Hx of trauma in childhood. Ross reported he has been having depressive sxs most of his life, but sxs exacerbated after knee injury which cause him to stop working. He has multiple co morbidities that impact his mental health and well being. Ross was able to explore self defeating life patterns and beliefs, he identified triggers that led him to hopeless. We discussed Behavioral activation, he verbalized was not ready to engaged in intervention at this moment. Ross agreed to tele-health follow up next week 11/21/23. He was cooperative, engaged and exceptive at times. PLAN: New/Additional Services needed Off-site services for Behavioral Health Integration Plan Internal Follow up with [facility] External OP psychiatry Referral Patient Self Plan Patient to reach out to [facility] team as needed, Comply with medication , Patient to engage in OP therapy , and Patient to reach out to [facility] as needed Assessment & Plan (09/20/2023 10:06 AM EDT): New/Additional Services needed Off-site services for Behavioral Health Integration Plan External OP therapy referral Patient Self Plan Patient to utilize skills provided in intervention , Patient to reach out to [facility] team as needed, Comply with medication , and Patient to engage in OP therapy Periodontal disease 03/08/2023 Bilateral lower extremity edema 03/02/2023 Assessment & Plan (03/02/2023 7:44 AM EDT): Pt w LE edema that appears to be most likely lymphadema from severe obesity Seen by vascular recently w normal venous insuff test -needs weight loss -advised to use consistently compression stockings-request today nurse staff to do prescription for it Morbid obesity 07/28/2022 Assessment & Plan (03/02/2023 4:55 PM EDT): Pt's BMI is 60 with exam consistent of double pannus in lower abdomen , no signs for infection nor hernias -I discussed today to referral sp-Joseline Manzano who explained that she tried referring pt to [facility] and other centers and pt;s can not be evaluated for plastic surgery w current BMI -I request referral to be sent to [facility] but was explained is the same criteria --I called pt and informed this -advised pt to continue with weight loss so can have bariatric surgery and after this with weight loss can have plastic surgery -today his hb1AC is 6.4 <---6.2--will increase his trulicity to 4.5 from 3 mg a day to try to improve DM and weight loss and advised to decrease his basal inulin 20 % to 45 u HS from 55 u when starts with new dose of trulicity ( explained pt that if fasting CBgs are > 150s persistently after the drop in insulin 1 week after increased truiciity to increase his basal insulin another 4 u up to 49 u HS) --pt expressed understanding of plan -pt to f w PCP in next 4 to 6 weeks -pt requesting f up w PCP Acquired pes planus 05/11/2017 Pure hypercholesterolemia 05/10/2017 Pulmonary hypertension 05/10/2017 Overview (07/28/2022): Mild, ECHO 10/21/10 [facility] [place], EF 65-70% H. pylori infection 05/10/2017 Overview (07/28/2022): + serology 08/07/2009, uncertain if treated Gout 05/10/2017 Elevated liver enzymes 05/10/2017 Overview (07/28/2022): fatty liver Arthritis 05/10/2017 Overview (07/28/2022): Mild L knee, Mod L shoulder arthropathy Asthma 05/10/2017 Spondylosis of lumbar region without myelopathy or radiculopathy 04/26/2017 Overview (07/28/2022): Saw [facility] [place] Rheumatology CTS (carpal tunnel syndrome) 04/26/2017 Assessment & Plan (03/02/2023 7:42 AM EDT): Hx of CTS bl hands-w PE consistent w it likely associated w obesity -request nurse staff px of bl wrist brace today -referred to hand surgeon by pt request-I advised pt to hold on referral until eval response w brace but states only helped partially before Polyneuropathy associated with underlying diseas e 10/27/2016 Type 2 diabetes mellitus with hyperlipidemia ([facility] S/HCC) 10/27/2016 Diabetic nephropathy with proteinuria 05/18/2015 HTN (hypertension) 05/18/2015 Assessment & Plan (04/24/2024 3:18 PM EST): Today elevated, weigh reduction, low na diet, take medications every day and f/u with PCP Low back pain without sciatica 05/18/2015 BETSY (obstructive sleep apnea) 05/18/2015 Overview (07/28/2022): Polysomnography 08/05/2009, [facility] [place] [place] :On cpap 14 cm H2O 10/23/2017 Home Sleep Study insufficient data. 08/2018 - Pulm ordered split night study. Proteinuria 05/18/2015 Encounters * This document contains information received from the source organization and may not represent a complete record from that organization. Date Type Department Care Team Description 06/18/2024 Refill [facility] [place] [address] Tristen Chen RN Uncomplicated opioid dependence (CMS/HCC) 06/09/2024 Refill [facility] [place] [address] Sofia Mitchell ANP 06/07/2024 Telephone [facility] [place] [address] Sofia Mitchell ANP 06/04/2024 9:40 AM EST Office Visit [facility] [place] [address] Fermin Steward MD Chest pain, unspecified type (Primary Dx); Acute intractable headache, unspecified headache type; Hypertension, unspecified type 06/04/2024 Orders Only GENERIC EXTERNAL DATA DEPARTMENT Provider, Generic External Data 05/30/2024 2:45 PM EST Office Visit [facility] [place] [address] Rut Branham MD Opioid type dependence, continuous (CMS/HCC) (Primary Dx); Severe episode of recurrent major depressive disorder, without psychotic features (CMS/HCC) 05/30/2024 Travel 05/23/2024 Refill [facility] [place] [address] Tristen Chen RN Uncomplicated opioid dependence (CMS/HCC) 05/23/2024 Telephone [facility] [place] [address] Judi Brumfield MA February recall 05/23/2024 Refill [facility] [place] [address] Sofia Mitchell ANP Severe episode of recurrent major depressive disorder, without psychotic features (CMS/HCC) 05/20/2024 2:20 PM EST Office Visit [facility] [address] [address] Collette Cowan MD Candidiasis of perineum (Primary Dx) 05/17/2024 Orders Only GENERIC EXTERNAL DATA DEPARTMENT Provider, Generic External Data 05/16/2024 Orders Only GENERIC EXTERNAL DATA DEPARTMENT Provider, Generic External Data 05/16/[address] [address] Sofia Mitchell ANP 05/14/[address] [address] Sofia Mitchell ANP 05/03/[address] [address] Sofia Mitchell ANP Call Back Request 05/02/2024 3:45 PM EST Office Visit [address] [address] Rut Branham MD Opioid type dependence, continuous (CMS/HCC) (Primary Dx); Severe episode of recurrent major depressive disorder, without psychotic features (CMS/HCC) 05/02/[address] [address] Sofia Mitchell ANP Request For Order(s) (/) 04/24/2024 2:20 PM EST Office Visit [facility] [address] [address] Verona Estrada MD Venous stasis dermatitis of both lower extremities (Primary Dx); Venous insufficiency of both lower extremities; Primary hypertension 04/24/2024 Orders Only GENERIC EXTERNAL DATA DEPARTMENT Provider, Generic External Data 04/23/[address] [address] Sofia Mitchell ANP callback requested 04/23/[address] [address] Sofia Mitchell ANP 04/22/[address] [address] Sofia Mitchell ANP 04/17/2024 Refill [facility] [address] [place] [id number] Tristen Chen RN Uncomplicated opioid dependence ([facility]) 04/04/2024 3:30 PM EST Office Visit [address] [address] Rut Branham MD Opioid type dependence, continuous ([facility]) (Primary Dx); Severe episode of recurrent major depressive disorder, without psychotic features ([facility]) 04/04/[address] [address] Judi Brumfield MA PA for Ozempic 4.5mg 04/04/2024 Travel 04/04/[address] [address] Judi Brumfield MA PA for Wegovy 0.25mg 04/01/[address] [address] Sofia Mitchell ANP Prior Authorization ( PA: Ozempic) 04/01/[address] [address] Sofia Mitchell ANP 03/29/2024 1:00 PM EDT Office Visit [address] [address] Sofia Mitchell ANP Diabetic nephropathy with proteinuria ([facility]) (Primary Dx); Type 2 diabetes mellitus with hyperlipidemia ([facility]) ; Gastroesophageal reflux disease, unspecified whether esophagitis present; Thrombocytopenia ([facility]); Testicular pain, left; Inguinal pain, left 03/29/2024 Travel 03/27/[address] [address] Tristen Chen RN Uncomplicated opioid dependence ([facility]) 03/22/2024 Travel 03/20/[address] [address] Sofia Mitchell ANP Referral 03/18/[address] [address] Sofia Mitchell ANP PCP Contact 03/18/2024 Refill [facility] [address] [place] [address] Sofia Mitchell ANP from Last 3 Months Immunizations Name Administration Dates Next Due Hep B, adult 10/17/2023 Influenza, IIV3, injectable 01/27/2011 Influenza, Split (incl. purified surface antigen ) 02/27/2012 Influenza, seasonal, injectable, preservative fr ee 02/27/2012,01/27/2011 Pfizer Covid-19 Vaccine 12+ 12/29/2020, Tdap 10/17/2023,03/15/2011 Family History Medical History Relation Name Comments Cancer Maternal Grandfather colon Cancer Mother bladder Relation Name Status Comments Maternal Grandfather Mother Social History Tobacco Use Types Packs/Day Years Used Date Smoking Tobacco: Never Passive Smoke Exposure: Never Smokeless Tobacco: Never Tobacco Cessation:Counseling Given: Not Answered Alcohol Use Standard Drinks/Week Comments Never 0 (1 standard drink = 0.6 oz pur e alcohol) Alcohol Answer Date Recorded Frequency of Alcohol Consumption Not on file 01/05/2024 Average Number of Drinks Not on file 024 Frequency of Binge Drinking Not on file 0801/2024 Score 0 01/05/2024 Depression Answer Date Recorded [...] Orientation Straight 03/28/2022 10 :21 AM EDT Last Filed Vital Signs Vital Sign Reading Time Taken Comments Blood Pressure 177/84 06/04/2024 9:08 AM EST Pulse 83 06/04/2024 9:08 AM EST Temperature 36.4 ??C (97.5 ??F) 06/04/2024 9:08 AM ES T Respiratory Rate 20 06/04/2024 9:08 AM EST Oxygen Saturation 99% 06/04/2024 9:08 AM EST RA Inhaled Oxygen Concentration - - Weight 189 kg (416 lb) 04/24/2024 3:06 PM EST Height 165.1 cm (5' 5 ) 03/29/2024 1:04 PM EDT Body Mass Index 69.23 03/29/2024 1:04 PM EDT Plan of Treatment Upcoming Encounters Date Type Department Care Team (Late st Contact Info) Description 06/27/2024 11:15 AM EST Office Visit [facility] [address] [place] [address] Kaitlyn Burk, OD [address] [place] [address] 06/27/2024 3:00 PM EST Office Visit [facility] MEDICINE [address] [place] [phone] Rut Branham MD [address] [place] [address] 07/10/2024 2:00 PM EST Office Visit [facility] [address] [place] [phone] Sofia Mitchell ANP [address] [place] [address] 07/25/2024 3:00 PM EST Office Visit [facility] [address] [place], [place] [phone] Rut Branham MD [address] [place], [place] [phone] Health Maintenance Due Date Last Done Comments Dental Oral Exam 1980 Dental Prophylaxis 1980 Dental X-Ray: Bitewings 1981 Dental X-Ray: Full Mouth 1981 Pneumococcal Vaccine: Pediatrics (0 to 5 Years) and At-Risk Patients (6 to 64 Years) (1 of 2 - PCV) 11/14/1987 Diabetes: Foot Exam 11/14/1991 Eye Exam 11/14/1991 Family Planning (PISQ) 1996 Hepatitis A Vaccines (1 of 2 - Risk 2-dose series) 2000 Hepatitis B Vaccines (2 of 3 - 19+ 3-dose series) 11/14/2023 10/17/2023 COVID-19 Vaccine (3 - 2023- season) 2024 12/29/2020, 12/10/2020 Influenza Vaccine (#1) 2024 2, 02/27/2012, 01/27/2011, Additional history exists Depression Monitoring (PHQ-9) 07/21/2024 01/19/2024, 01/19/2024 SDOH Screening 08/30/2024 08/31/2023 Diabetes: Hemoglobin A1C 10/22/2024 024, 02/13/2024, 10/17/2023, Additional history exists Alcohol/Substance Use Screening 01/04/2025 01/05/2024 Depression Screening 01/18/2025 01/19/2024, 01/19/20 24 Lipid Panel 04/24/2025 04/24/2024, 06/14/2023 Tobacco Screening 06/04/2025 06/04/2024 Zoster Vaccines (1 of 2) 11/14/2031 DTaP/Tdap/Td Vaccines (3 - Td or Tdap) 10/16/2033 10/17/2023, 03/15/2011 RSV Patients and Patients Aged 60 years or older (1 - 1-dose 75+ series) 2056 Hepatitis C Screening Completed 10/11/2023, 022 HIV Screening Completed 12/13/2023, 12/16/2021 HIB Vaccines Aged Out No longer eligi ble based on patient's age to complete this topic HPV Vaccines Aged Out No longer eligi ble based on patient's age to complete this topic IPV Vaccines Aged Out No longer eligi ble based on patient's age to complete this topic Meningococcal Vaccine Aged Out No steve maco eligible based on patient's age to complete this topic RSV under 20 months Aged Out No longe r eligible based on patient's age to complete this topic Rotavirus Vaccines Aged Out No longer eligible based on patient's age to complete this topic Procedures Procedure Name Priority Date/Time Associated Diagnosis Comments XR CERVICAL SPINE 3V Routine 06/04/2024 5:58 PM EST XR CHEST 1 VIEW Routine 06/04/2024 5:03 PM EST GLUCOSE, WHOLE BLOOD Routine 06/04/2024 4:40 PM EST ECG 12-LEAD Routine 06/04/2024 1:00 PM EST Chest pain, unspecified type HIGH SENSITIVITY TROPONIN I Routine 06/04/2024 11:28 AM EST BASIC METABOLIC PANEL Routine 06/04/2024 11:28 AM EST CBC WITH AUTO DIFFERENTIAL Routine 06/04 11:28 AM EST POCT RAMSES-14 URINE DRUG SCREEN Routine 05/30/2024 1:16 PM EST Opioid type dependence, continuous (CMS/HCC) POCT URINALYSIS DIPSTICK Routine 024 3:21 PM EST Candidiasis of perineum MAGNESIUM Routine 05/17/2024 10:14 AM EST URINALYSIS, COMPLETE, WITH REFLEX TO CULTURE Routine 05/17/2024 8:36 AM EST GLUCOSE, WHOLE BLOOD Routine 05/17/2024 8:12 AM EST GLUCOSE, WHOLE BLOOD Routine 05/16/2024 9:49 PM EST DRUG MONITOR, PANEL 1, SCREEN, URINE Routine 05/16/2024 7:56 PM EST MAGNESIUM Routine 05/16/2024 6:10 PM EST BASIC METABOLIC PANEL Routine 05/16/2024 6:10 PM EST HEPATIC FUNCTION PANEL Routine 6:10 PM EST ETHANOL Routine 05/16/2024 6:10 PM EST CBC WITH AUTO DIFFERENTIAL Routine 05/16 6:10 PM EST US ABDOMEN COMPLETE WITH ELASTOGRAPHY Routine 05/09/2024 9:41 AM EST POCT RAMSES-14 URINE DRUG SCREEN Routine 05/02/2024 2:07 PM EST Opioid type dependence, continuous (CMS/HCC) DRUG MONITORING, PHOSPHATIDYLETHANOL (PETH), BLOOD Routine 04/24/2024 11:23 AM EST LIVER FIBROSIS, FIBROTEST ACTITEST PANEL Routine 04/24/2024 11:23 AM EST LIVER KIDNEY MICROSOME (LKM-1) AB (IGG) Routine 04/24/2024 11:23 AM EST ACTIN (SMOOTH MUSCLE) ANTIBODY (IGG) Routine 04/24/2024 11:23 AM EST HLA-B27 ANTIGEN Routine 04/24/2024 11:23 AM EST MITOCHONDRIAL ANTIBODY WITH REFLEX TO TITER Routine 04/24/2024 11:23 AM EST CYCLIC CITRULLINATED PEPTIDE (CCP) AB (IGG) Routine 04/24/2024 11:23 AM EST VITAMIN D 25-OH (D2 AND D3) Routine 04/24/2024 11:23 AM EST TISSUE TRANSGLUTAMINASE AB, IGA Routine 04/24/2024 11:23 AM EST THYROGLOBULIN ANTIBODIES Routine 024 11:23 AM EST THYROID PEROXIDASE ANTIBODIES Routine 04/24/2024 11:23 AM EST COLLETTE SCREEN, IFA, W/REFL TITER AND PATTERN Routine 04/24/2024 11:23 AM EST IMMUNOGLOBULIN A Routine 04/24/2024 11:23 AM EST EPNLX-1-PBSAAJHPXND QN Routine 11:23 AM EST CERULOPLASMIN Routine 04/24/2024 11:23 AM EST TSH W/REFLEX TO FT4 Routine 04/24/2024 11:23 AM EST FERRITIN Routine 04/24/2024 11:23 AM EST SED RATE BY MODIFIED WESTERGREN Routine 04/24/2024 11:23 AM EST LIPID PANEL, STANDARD Routine 04/24/2024 11:23 AM EST C-REACTIVE PROTEIN Routine 04/24/2024 11:23 AM EST IRON AND TOTAL IRON BINDING CAPACITY Routine 04/24/2024 11:23 AM EST COMPREHENSIVE METABOLIC PANEL Routine 04/24/2024 11:23 AM EST C-REACTIVE PROTEIN Routine 04/24/2024 11:23 AM EST RHEUMATOID FACTOR Routine 04/24/2024 11:23 AM EST HEMOGLOBIN A1C Routine 04/24/2024 11:23 AM EST PROTHROMBIN TIME-INR Routine 04/24/2024 11:23 AM EST CBC Routine 04/24/2024 11:23 AM EST MR HAND WO CONTRAST LEFT Routine 024 1:35 PM EST MR HAND WO CONTRAST RIGHT Routine 2023 1:00 PM EST US SCROTUM Routine 04/11/2024 1:30 PM EST Testicular pain, left Inguinal pain, left POCT RAMSES-14 URINE DRUG SCREEN Routine 04/04/2024 1:45 PM EST Opioid type dependence, continuous (CMS/HCC) HIV 1/2 ANTIGEN/ANTIBODY, FOURTH GENERATION W/RFL Routine 12/13/2023 11:48 AM EDT Elevated erythrocyte sedimentation rate 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 [facility] ?[address] ?[place] [address] ?XRay Report ? Signed ? Patient: Navarrete,Ross L ?MR#: [id number] ?? 613 ? : 1980 ?Acct:[id number] ? Age/Sex: 43 / M ?ADM Date: //25 ? Loc: HO.ED ? Attending Dr: ? Ordering Physician: Alexey Fabian ?? Date of Service: 06/04/24 ?? Procedure(s): XR cervical spine 3V ?? Accession Number(s): [id number] ? cc: [facility]; Alexey Fabian ? CLINICAL HISTORY: neck pain to LUE ? 5 views cervical spine ? Comparison: CT/SR - CT CERVICAL SPINE WO CON - 09/03/21 14:41 EDT ? Findings: ?? Straightening of the cervical lordosis. ?? No acute fractures or dislocation. ?? Mild degenerative changes of the cervical spine with mild narrowing of the ?? C5-C6 intervertebral disc space and osteophytes. ?? Prevertebral soft tissues within normal limits. ? IMPRESSION: ?? No acute findings. Mild degenerative changes. ? This document has been electronically signed by: Brenna Bush MD on ?? 06/04/2024 17:58:55 ? Dictated By: ?Brenna Bush MD ? Signed By: ?<Electronically signed by Brenna Bush MD in OV> ? 06/04/24 1759 ? DD/ 1758 ? TD/TT: 06/04/248 ? Ditch Rider: ? Procedure Note Roseanne, Image - 06/04/2024 [place] [address] XRay Report Signed Patient: Ross Navarrete LMR#: [id number] 613 : 1980Acct:[id number] Age/Sex: 43 / MADM Date: 06/04/24 Loc: HO.ED Attending Dr: Ordering Physician: Alexey Fabian Date of Service: 06/04/24 Procedure(s): XR cervical spine 3V Accession Number(s): [id number] cc: [facility]; Alexey Fabian CLINICAL HISTORY: neck pain to LUE 5 views cervical spine Comparison: CT/SR - CT CERVICAL SPINE WO CON - 09/03/21 14:41 EDT Findings: Straightening of the cervical lordosis. No acute fractures or dislocation. Mild degenerative changes of the cervical spine with mild narrowing of the C5-C6 intervertebral disc space and osteophytes. Prevertebral soft tissues within normal limits. IMPRESSION: No acute findings. Mild degenerative changes. This document has been electronically signed by: Brenna Bush MD on 06/04/2024 17:58:55 Dictated By: Brenna Bush MD Signed By: <Electronically signed by Brenna Bush MD in OV> 06/04/24 1759 DD/ 57 TD/TT: 06/04/241757 Ditch Rider: [facility] External Provider IMG XR PROCEDURES Final Result * XR Chest 1 View (06/04/2024 5:03 PM EST) Anatomical Region Laterality Modality Chest Radiographic Lupe ging 06/04/2024 5:03 PM EST Narrative 06/04/2024 5:05 PM EST ? [facility] ?[address] ?[place] [address] ?XRay Report ? Signed ? Patient: Navarrete,Ross L ?MR#: [id number] ?? 613 ? : 1980 ?Acct:[id number] ? Age/Sex: 43 / M ?ADM Date: 06/04/24 ? Loc: HO.ED ? Attending Dr: ? Ordering Physician: Curt Soto ?? Date of Service: 06/04/24 ?? Procedure(s): XR chest 1V ?? Accession Number(s): [id number] ? cc: Curt Soto; [facility] ? CLINICAL HISTORY: Chest pain ? 1 view chest x-ray ? Comparison: CR/SR - XR CHEST 2V - 06/06/23 10:02 EST ? Findings: ?? The lungs are clear. ?? Heart size is normal. ?? No acute fracture. ? IMPRESSION: ?? 1. No acute findings. ? This document has been electronically signed by: Taty Rodriguez MD on ?? 06/04/2024 17:03:49 ? Dictated By: ?Taty Rodriguez MD ? Signed By: ?<Electronically signed by Taty Rodriguez MD in OV> ? 06/04/241704 ? DD/ 02 ? TD/TT: 06/04/241702 ? Ditch Rider: ? Procedure Note Roseanne, Maria T - 06/04/[address] [address] XRay Report Signed Patient: Ross Navarrete LMR#: [id number] 613 : 1980Acct:[id number] Age/Sex: 43 / MADM Date: 06/04/24 Loc: HO.ED Attending Dr: Ordering Physician: Curt Soto Date of Service: 06/04/24 Procedure(s): XR chest 1V Accession Number(s): [id number] cc: Curt Soto; [facility] CLINICAL HISTORY: Chest pain 1 view chest x-ray Comparison: CR/SR - XR CHEST 2V - 06/06/23 10:02 EST Findings: The lungs are clear. Heart size is normal. No acute fracture. IMPRESSION: 1. No acute findings. This document has been electronically signed by: Taty Rodriguez MD on 06/04/2024 17:03:49 Dictated By: Taty Rodriguez MD Signed By: <Electronically signed by Taty Rodriguez MD in OV> 06/04/241704 DD/ 02 TD/TT: 06/04/241702 Ditch Rider: [facility] External Provider IMG XR PROCEDURES Final Result * Glucose, Whole Blood (06/04/2024 4:40 PM EST) Only the most recent of3 resultswithin the time period is included. Glucose, Whole Blood 106 60 - 115 mg/dL [facility] Comment:METER #: [id number] 06/04/2024 4:40 PM EST 06/04/2024 4:43 PM EST Generic External Data Provider LAB BLOOD ORDERAB LES Final Result [facility] [address] [place] [phone] * High Sensitivity Troponin I (06/04/2024 11:28 AM EST) TROPONIN I HIGH SENSITIVITY <2.7 <3.5 - 35.0 ng/L [facility] Comment:The Joradn high sens itivity Troponin-I results should beused in conjunction with other diagnostic information suchas ECG, clinical observations and information, and patientsymptoms to aid in the diagnosis of [place]. 06/04/2024 11:2 8 AM EST 06/04/2024 11:56 AM EST us Generic External Data Provider LAB BLOOD ORDERAB LES Final Result [facility] [address] [place] [phone] * (ABNORMAL) CBC auto differential (06/04/2024 11:28 AM EST) Only the most recent of2 resultswithin the time period is included. White Blood Count 8.1 4.8 - 10.8 X10*3/uL [facility] Red Blood Count 4.34(L) 4.60 - 5.80 X10*6/uL [facility] Hemoglobin 12.2(L) 14.0 - 18.0 g/dl [facility] Hematocrit 36.6(L) 42.0 - 52.0 % [facility] Mean Corpuscular Volume 84.3 80.0 - 98.0 fL [facility] Mean Corpuscular Hemoglobin 28.1 27.0 - 33.0 pg [facility] Mean Corpuscular HGB Conc 33.3 31.0 - 36.0 g/dl [facility] Red Cell Distribution Width 13.0 11.0 - 16.0 % [facility] Platelet Count 118(L) 160 - 400 X10*3/uL [facility] Mean Platelet Volume 12.5(H) 9.4 - 12.4 fL [facility] Neutrophils Percent Auto 71.6 45 - 73 % [facility] Imm Gran Pct Auto 0.7(H) 0.0 - 0.4 % [facility] Lymphocytes Percent Auto 18.5(L) 20 - 40 % [facility] Monocytes Percent Auto 7.3 2 - 11 % [facility] Eosinophils Percent Auto 1.5 0 - 4 % [facility] Basophils Percent Auto 0.4 0 - 2 % [facility] NRBC Pct Auto 0.0 0.0 - 0.2 /100WBC [facility] Neutrophils Absolute Auto 5.8 2.0 - 8.3 x10*3/uL [facility] Imm Gran Abs Auto 0.06(H) 0.00 - 0.03 X10*3/uL [facility] Lymphocytes Absolute Auto 1.5 1.2 - 4.9 X10*3/uL [facility] Monocytes Absolute Auto 0.6 0.1 - 1.2 X10*3/uL [facility] Eosinophils Absolute Auto 0.1 0.0 - 0.4 X10*3/uL [facility] Basophils Absolute Auto 0.0 0.0 - 0.2 X10*3/uL [facility] NRBC Abs Auto 0.000 0.0 - 0.012 X10*3/uL [facility] 06/04/2024 11:2 8 AM EST 06/04/2024 11:56 AM EST us Generic External Data Provider LAB BLOOD ORDERAB LES Final Result [facility] [address], [place] [phone] * (ABNORMAL) Basic Metabolic Panel (06/04/2024 11:28 AM EST) Only the most recent of2 resultswithin the time period is included. Sodium 138 135 - 145 mmol/L [facility] Potassium 4.2 3.3 - 5.1 mmol/L [facility] Chloride 105 96 - 108 mmol/L [facility] Carbon Dioxide 28 22 - 29 mmol/L [facility] Anion Gap 9(L) 12 - 20 [facility] Urea Nitrogen (BUN) 17(H) 9 - 16 mg/dL [facility] Creatinine, Serum 0.98 0.5 - 1.4 mg/dL [facility] Creatinine Clr Calc Pharmacy 150.8 [facility] Comment:eGFR (calculated fro m the MDRD study equation) and eCrCl(calculated from the Cockcroft-Gault equation) are based ondifferent parameters and may not yield comparable results.If eCrCl result is absurd, please check patient'sheight/weight. Estimated Glomerular Filt Rate >60 [facility] Comment:Chronic Kidney Disea se: Estimated GFR < 60 mL/min/1.96y1Tdadod Kidney Disease: Estimated GFR < 15 mL/min/1.73m2 Glucose 130(H) 60 - 115 mg/dL [facility] Calcium 9.3 8.4 - 10.2 mg/dL [facility] 06/04/2024 11:2 8 AM EST 06/04/2024 11:56 AM EST us Generic External Data Provider LAB BLOOD ORDERAB LES Final Result [facility] [address] [place] [phone] * POCT RAMSES-14 Urine Drug Screen (05/30/2024 1:16 PM EST) Only the most recent of3 resultswithin the time period is included. THC Positive Cocaine Screen, Urine Negative Opiate Screen, Urine Negative Methamphetamine Screen Urine Negative Amphetamine Screen, Urine Negative Benzodiazepines Screen, Urine Negative Barbiturate Screen, Urine Negative Methadone Screen, Urine Negative Buprenophine Screen, Urine Positive TCA, Urine Negative MDMA Urine Negative ng/mL Oxycodone Screen, Urine Negative Phencyclidine (PCP), Urine Negative Propoxyphene, Urine Negative Fentanyl, Urine Negative Urine Urine specimen obtained by clean catch procedure / Unknown 05/30/2024 1:16 PM EST Rut Branham MD POINT OF CARE TEST ENTER/YI T ORDERABLES Final Result * POCT urinalysis dipstick manually resulted (05/20/2024 3:21 PM EST) Color, UA Yellow Clarity, UA Clear Glucose, UA Negative Bilirubin, UA Negative Ketones, UA Negative Spec Grav, UA 1.030 Blood, UA Negative Negative, None Detected pH, UA 5.5 Protein, UA Trace Comment:300mg/dl Urobilinogen, UA 0.2 Leukocytes, UA Negative Negative, Rare, Trace Nitrite, UA Negative Negative, None Detected Urine 05/20/2024 3:21 PM EST us Collette Cowan MD POINT OF CARE TEST ENTER /EDIT ORDERABLES Final Result * Magnesium (05/17/2024 10:14 AM EST) Only the most recent of2 resultswithin the time period is included. Magnesium 1.8 1.6 - 2.6 mg/dL [facility] 05/17/2024 10:1 4 AM EST 05/17/2024 10:20 AM EST us Generic External Data Provider LAB BLOOD ORDERAB LES Final Result [facility] [address] [place] [phone] * (ABNORMAL) Urinalysis, Complete, with Reflex to Culture (05/17/2024 8:36 AM EST) Color Urine Yellow [facility] Appearance Urine Clear [facility] PH 6.5 5.0 - 9.0 [facility] Glucose Urine UA Negative Negative mg/dL [facility] Urine Blood Negative Negative [facility] Specific [place] - Urine 1.020 1.005 - 1.025 [facility] Urine Protein 300 (3+)(A) Neg-Trace mg/dL [facility] Urine Ketones Negative Negative mg/dL [facility] Nitrite Urine Negative Negative [facility] Leukocyte Esterase Urine Negative Negative [facility] RBC Urine 0-2 0 - 2 /HPF [facility] Urine WBC 6-10 0 - 5 /HPF [facility] Urine Squamous Epithelial Cell 0-2 0 - 2 /HPF [facility] Urine Bacteria None Seen None Seen [facility] Hyaline Casts, Urine 0-2 0 - 2 /LPF [facility] 05/17/2024 8:36 AM EST 05/17/2024 8:39 AM EST Narrative [facility] - 05/17/2024 8:56 AM EST [id number], Clean Catch us Generic External Data Provider LAB URINE ORDERAB LES Final Result [facility] [address] [place] [phone] * (ABNORMAL) Drug Monitoring, Panel 1, Screen, Urine (05/16/2024 7:56 PM EST) Opiate Screen Urine Not Detected Not Detect [facility] Comment:Opiate cut-off is 30 0 ng/mL.Positive results are unconfirmed and should not be used fornon-medical purposes. Barbiturates, Urine Not Detected Not Detect [facility] Comment:Barbiturate cut-off is 200 ng/mL.Positive results are unconfirmed and should not be used fornon-medical purposes. Phencyclidine Screen Urine Not Detected Not Detect [facility] Comment:Phencyclidine cut-of f is 25 ng/mL.Positive results are unconfirmed and should not be used fornon-medical purposes. Amphetamine Screen Urine Not Detected Not Detect [facility] Comment:Amphetamine cut-off is 1000 ng/mL.Positive results are unconfirmed and should not be used fornon-medical purposes. Benzodiazepines Screen Urine Not Detected Not Detect [facility] Comment:Benzodiazepine cut-o ff is 200 ng/mL.Positive results are unconfirmed and should not be used fornon-medical purposes. Cocaine Screen Urine Not Detected Not Detect [facility] Comment:Cocaine cut-off is 3 00 ng/mL.Positive results are unconfirmed and should not be used fornon-medical purposes. Cannabinoid Screen Urine POSITIVE(A) Not Detect [facility] Comment:Cannabinoid cut-off is 50 ng/mL.Positive results are unconfirmed and should not be used fornon-medical purposes. Methadone Screen, Urine Not Detected Not Detect ng/mL [facility] Comment:Methadone cut-off is 300 ng/mL.Positive results are unconfirmed and should not be used fornon-medical purposes. FENTANYL URINE Not Detected Not Detect [facility] Comment:Fentanyl cut-off is 1 ng/mL.Positive results are unconfirmed and should not be used fornon-medical purposes. Oxycodone Urine Screen Not Detected Not Detect ng/mL [facility] Comment:Oxycodone cut-off is 100 ng/mL.Positive results are unconfirmed and should not be used fornon-medical purposes. Buprenorphine Screen Positive(A) Not Detect ng/mL [facility] Comment:Buprenorphine cut-of f is 5 ng/mL.Positive results are unconfirmed and should not be used fornon-medical purposes. 05/16/2024 7:56 PM EST 05/16/2024 7:58 PM EST Generic External Data Provider LAB URINE ORDERAB LES Final Result Performing Organization Address [facility] Co de Phone Number [facility] [address] [place] [phone] * Ethanol (05/16/2024 6:10 PM EST) ETHANOL (MG/DL) IN SER/PLAS <10 mg/dL [facility] Comment:Serum/plasma ethanol results are to be used formedical/treatment purposes only. 05/16/2024 6:10 PM EST 05/16/2024 6:12 PM EST Generic External Data Provider LAB BLOOD ORDERAB LES Final Result Performing Organization Address [facility] Co de Phone Number [facility] [address] [place] [phone] * Hepatic Function Panel (05/16/2024 6:10 PM EST) Bilirubin, Total 0.6 0.0 - 1.0 mg/dL [facility] Bilirubin, Direct 0.2 0.0 - 0.5 mg/dL [facility] Aspartate Amino Transferase 25 5 - 37 U/L [facility] Alanine Aminotransferase 16 0 - 40 U/L [facility] Total Protein 7.8 6.5 - 8.0 g/dL [facility] Albumin Level 3.8 3.5 - 5.0 g/dL [facility] Alkaline Phosphatase 70 39 - 117 U/L [facility] 05/16/2024 6:10 PM EST 05/16/2024 6:12 PM EST us Generic External Data Provider LAB BLOOD ORDERAB LES Final Result [facility] [address] [place] [phone] * US Abdomen Comp w elastography (05/09/2024 9:41 AM EST) Anatomical Region Laterality Modality Abdomen Ultrasound 05/09/2024 9:41 AM EST Narrative 06/18/2024 9:23 AM EST ? [facility] ?[address] ?[place] [id number] ? Ultrasound Report ? Signed ? Patient: Navarrete,Ross L ?MR#: [id number] ?? 613 ? : 1980 ?Acct:[id number] ? Age/Sex: 43 / M ?ADM Date: 05/09/ ? Loc: HO.US ? Attending Dr: Kavya Mccain MD ? Ordering Physician: Kavya Mccain MD ?? Date of Service: 12/12/24 ?? Procedure(s): US abdomen comp w elastography ?? Accession Number(s): [id number] ? cc: SOFIA MITCHELL NP; Kavya Mccain MD ? EXAMINATION: ?? US COMPLETE ABDOMEN WITH LIVER ELASTOGRAPHY ? CLINICAL INFORMATION: ?? Fatty change of liver, not elsewhere specified. ? COMPARISON: ?? Abdominal ultrasound 10/24/2023. ?? Abdominal ultrasound with elastography 12/09/2021. ? TECHNIQUE: ?? Real-time imaging of the abdominal viscera. Noninvasive ultrasound ?? liver fibrosis assessment is performed using Fingerprint ElastPQ point ?? quantification shear wave elastography (pSWE) with a C5-2 MHz ?? transducer. ??Multiple elastography samples are obtained. ? FINDINGS: ? PANCREAS: The visualized pancreatic head and body are normal in ?? appearance. The remainder of the pancreas is obscured from ?? visualization by the overlying bowel gas. ? ABDOMINAL AORTA: No aortic aneurysm is seen. ? INFERIOR VENA CAVA: Visualized portions are normal. ? LIVER: Liver is normal in size. There is diffusely increased ?? parenchymal echogenicity. Hepatic contour is smooth. There is no focal ?? hepatic lesion. ? The right lobe measures 17.0 cm in length. ??The left lobe measures 13.3 ?? cm in length. ? Portal flow is hepatopedal. ? Shear wave liver elastography median stiffness is 1.96 m/s (reference: ? normal median stiffness is 1.3 m/s or less). (Previous measurement was ?? 1.66 m/s). ? IQR/median stiffness to assess sampling precision is 0.04 (reference: ?? good quality data set is IQR/median stiffness of 0.15 or less). ? GALLBLADDER: The gallbladder is physiologically distended without ?? evidence of stones, sludge, polyps, wall thickening or pericholecystic ?? fluid. ? COMMON BILE DUCT: Normal in caliber measuring 0.4 cm in diameter. ? RIGHT KIDNEY: No hydronephrosis. No renal calculi or focal parenchymal ?? lesions. The kidney measures 12.0 cm in maximum dimension. ? LEFT KIDNEY: No hydronephrosis. No renal calculi or focal parenchymal ?? lesions. The kidney measures 12.7 cm in maximum dimension. ? SPLEEN: Enlarged. The spleen measures 15.0 cm in maximum dimension. No ?? focal lesion. ? FREE FLUID: None seen. ? US/US abdomen comp w elastography ?? IMPRESSION: ?? 1. Increased and coarsened hepatic echogenicity without focal lesion, ?? consistent with steatosis and/or hepatocellular disease. ? 2. Liver elastography: ??Measuremensts are consistent with compensated ?? advanced chronic liver disease. ??When compared with prior exam, there ?? is a statistically significant increase in liver stiffness (increase at ?? least 10%). There is a quality data set. ? 3. Splenomegaly, measuring up to 15.0 cm in diameter. ? 4. Normal gallbladder and bile ducts. ? REFERENCE: ?? Society of Radiologists in Ultrasound Liver Stiffness Thresholds (2019): ? LIVER STIFFNESS THRESHOLDS: ?? *Liver Stiffness equal or less than 1.3 m/s: ??High probability of being ?? normal. ?? *Liver Stiffness ??less than 1.7 m/s: ??In the absence of other known ?? clinical signs, rules out compensated advanced chronic liver disease. ?? *Liver Stiffness 1.7-2.1 m/s: ??Suggestive of compensated advanced ?? chronic liver disease but need further test for confirmation. ?? *Liver Stiffness over 2.1 m/s: ??Rules in compensated advanced chronic ?? liver disease. ?? *Liver Stiffness over 2.4 m/s: ??Suggestive of clinically significant ?? portal hypertension. ? QUALITY OF DATA SET: ?? *IQR/Median value equal or less than 0.15 implies a quality data set. ?? *IQR/Median value over 0.15 implies a poor quality data set. ? SIGNIFICANT CHANGE FROM PRIOR EXAM: ?? Significant change if liver stiffness measurement is 10% or greater ?? from prior exam. ? OTHER CONSIDERATIONS: ?? The stage of liver fibrosis may be overestimated in the setting of ?? acute hepatitis, liver inflammation, elevated liver function tests, ?? hepatic vascular congestion, obstructive cholestasis, non-fasting ?? state, and infiltrative diseases such as amyloidosis and lymphoma. ??In ?? some patients with NAFLD, the liver stiffness thresholds for ?? compensated advanced chronic liver disease may be lower. ??In causes ?? other than viral hepatitis and NAFLD, liver stiffness thresholds are ?? not well established. ? Electronically signed by: ??Hamzah Mcdaniels MD ??06/18/2024 09:20 AM EST RP ? Dictated By: ?Hamzah Mcdaniels MD ? Signed By: ?<Electronically signed by Hamzah Mcdaniels MD in OV> ?06/18/24 0920 ? DD/ 0941 ? TD/TT: 05/09/24 0957 ? Ditch Rider: ? Procedure Note Donotuseinterpreter, Image - 06/18/2024 [place] [address] Ultrasound Report Signed Patient: Ross Navarrete LMR#: [id number] : 1980Acct:[id number] Age/Sex: 43 / MADM Date: 05/09/24 Loc: HO.US Attending Dr: Kavya Mccain MD Ordering Physician: Kavya Mccain MD Date of Service: 05/09/24 Procedure(s): US abdomen comp w elastography Accession Number(s): [id number] cc: SOFIA MITCHELL NP; Kavya Mccain MD EXAMINATION: US COMPLETE ABDOMEN WITH LIVER ELASTOGRAPHY CLINICAL INFORMATION: Fatty change of liver, not elsewhere specified. COMPARISON: Abdominal ultrasound 10/24/2023. Abdominal ultrasound with elastography 12/09/2021. TECHNIQUE: Real-time imaging of the abdominal viscera. Noninvasive ultrasound liver fibrosis assessment is performed using Sally ElastPQ point quantification shear wave elastography (pSWE) with a C5-2 MHz transducer. Multiple elastography samples are obtained. FINDINGS: PANCREAS: The visualized pancreatic head and body are normal in appearance. The remainder of the pancreas is obscured from visualization by the overlying bowel gas. ABDOMINAL AORTA: No aortic aneurysm is seen. INFERIOR VENA CAVA: Visualized portions are normal. LIVER: Liver is normal in size. There is diffusely increased parenchymal echogenicity. Hepatic contour is smooth. There is no focal hepatic lesion. The right lobe measures 17.0 cm in length. The left lobe measures 13.3 cm in length. Portal flow is hepatopedal. Shear wave liver elastography median stiffness is 1.96 m/s (reference: normal median stiffness is 1.3 m/s or less). (Previous measurement was 1.66 m/s). IQR/median stiffness to assess sampling precision is 0.04 (reference: good quality data set is IQR/median stiffness of 0.15 or less). GALLBLADDER: The gallbladder is physiologically distended without evidence of stones, sludge, polyps, wall thickening or pericholecystic fluid. COMMON BILE DUCT: Normal in caliber measuring 0.4 cm in diameter. RIGHT KIDNEY: No hydronephrosis. No renal calculi or focal parenchymal lesions. The kidney measures 12.0 cm in maximum dimension. LEFT KIDNEY: No hydronephrosis. No renal calculi or focal parenchymal lesions. The kidney measures 12.7 cm in maximum dimension. SPLEEN: Enlarged. The spleen measures 15.0 cm in maximum dimension. No focal lesion. FREE FLUID: None seen. US/US abdomen comp w elastography IMPRESSION: 1. Increased and coarsened hepatic echogenicity without focal lesion, consistent with steatosis and/or hepatocellular disease. 2. Liver elastography: Measuremensts are consistent with compensated advanced chronic liver disease. When compared with prior exam, there is a statistically significant increase in liver stiffness (increase at least 10%). There is a quality data set. 3. Splenomegaly, measuring up to 15.0 cm in diameter. 4. Normal gallbladder and bile ducts. REFERENCE: Society of Radiologists in Ultrasound Liver Stiffness Thresholds (2020): LIVER STIFFNESS THRESHOLDS: *Liver Stiffness equal or less than 1.3 m/s: High probability of being normal. *Liver Stiffness less than 1.7 m/s: In the absence of other known clinical signs, rules out compensated advanced chronic liver disease. *Liver Stiffness 1.7-2.1 m/s: Suggestive of compensated advanced chronic liver disease but need further test for confirmation. *Liver Stiffness over 2.1 m/s: Rules in compensated advanced chronic liver disease. *Liver Stiffness over 2.4 m/s: Suggestive of clinically significant portal hypertension. QUALITY OF DATA SET: *IQR/Median value equal or less than 0.15 implies a quality data set. *IQR/Median value over 0.15 implies a poor quality data set. SIGNIFICANT CHANGE FROM PRIOR EXAM: Significant change if liver stiffness measurement is 10% or greater from prior exam. OTHER CONSIDERATIONS: The stage of liver fibrosis may be overestimated in the setting of acute hepatitis, liver inflammation, elevated liver function tests, hepatic vascular congestion, obstructive cholestasis, non-fasting state, and infiltrative diseases such as amyloidosis and lymphoma. In some patients with NAFLD, the liver stiffness thresholds for compensated advanced chronic liver disease may be lower. In causes other than viral hepatitis and NAFLD, liver stiffness thresholds are not well established. Electronically signed by: Hamzah Mcdaniels MD 06/18/2024 09:20 AM EST Dictated By: Hamzah Mcdaniels MD Signed By: <Electronically signed by Hamzah Mcdaniels MD in OV> 06/18/24919 DD/ TD/TT: 05/09/2457 Ditch Rider: us [facility] External Provider IMG US PROCEDURES Edited Result - Final * (ABNORMAL) VITAMIN D 25-OH (D2 AND D3) (04/24/2024 11:23 AM EST) Vitamin D, 25-OH, D2 <4 ng/mL [facility] Comment:This test was develo ped and its analytical performancecharacteristics have been determined by [employer]. It hasnot been cleared or approved by the U.S. Food and DrugAdministration. This assay has been validated pursuantto the CLIA regulations and is used for clinicalpurposes.THIS TEST WAS PERFORMED AT:[employer] [id number] [place] [address]KLRRSRQMINI NICOLAS MD,PHD Vitamin D, 25-OH, D3 8 ng/mL [facility] Comment:This test was develo ped and its analytical performancecharacteristics have been determined by [employer] [place], [place]. It hasnot been cleared or approved by the U.S. Food and DrugAdministration. This assay has been validated pursuantto the CLIA regulations and is used for clinicalpurposes. Vitamin D, 25-OH, Total 8(A) 30 - 100 ng/mL [facility] Comment:Vitamin D, 25-Hydrox y reports concentrations of twocommon forms, 25-OHD2 and 25-OHD3. 25-OHD3 indicatesboth endogenous production and supplementation.25-OHD2 is an indicator of exogenous sources such asdiet or supplementation. Therapy is based onmeasurement of Total 25-OHD, with levels <20 ng/mLindicative of Vitamin D deficiency, while levelsbetween 20 ng/mL and 30 ng/mL suggest insufficiency.Optimal levels are > or = 30 ng/mL.For additional information, please refer [email or web address](This link is being provided for informational/educational purposes only.) 04/24/2024 11:2 3 AM EST 04/24/2024 11:23 AM EST Generic External Data Provider LAB BLOOD ORDERAB LES Final Result Performing Organization Address [facility]/ZIP Co de Phone Number [facility] [address] [place] [phone] * TSH with Reflex to Free T4 (04/24/2024 11:23 AM EST) TSH reflex Free T4 1.36 0.32 - 4.0 uIU/mL [facility] 04/24/2024 11:2 3 AM EST 04/24/2024 11:23 AM EST Generic External Data Provider LAB BLOOD ORDERAB LES Final Result Performing Organization Address [facility] Co de Phone Number [facility] [address] [place] [phone] * Drug Monitoring, Phosphatidylethanol (PEth), Blood (04/24/2024 11:23 AM EST) Phosphatidylethanol, Blood NEGATIVE [facility] Comment:REFERENCE RANGE: <20 ng/mLTHIS TEST PERFORMED AT:[employer] [facility]OBN[employer] [facility] CollectiveHAV[facility] HOSPITALMogujieEileen [id number] [facility] [place] [phone] DIRECTOR: MINI NICOLAS MD, PHD PEth 16:0/18:2 (PLPEth) NEGATIVE [facility] Comment:REFERENCE RANGE: <20 ng/mLTHIS TEST PERFORMED AT:[employer] [id number] [facility] [place] [phone] DIRECTOR: MINI NICOLAS MD, PHD [facility] Comments SEE NOTE [facility] Comment:This drug testing is for medical treatment only.Analysis was performed as non-forensic testing andthese results should be used only by healthcareproviders to render diagnosis or treatment, or tomonitor progress of medical conditions.LDT Notes:Confirmation tests were developed and their analyticalperformance characteristics have been determined by[employer]. It has not been cleared or approvedby the FDA. This assay has been validated pursuant tothe CLIA regulations and is used for clinical purposes.Healthcare Providers needing Interpretation assistance,please contact us at [phone] ( )M-F, 8am to 10pm ESTTHIS TEST PERFORMED AT:[employer] [address] [phone] DIRECTOR: ALOK CESPEDES MD 04/24/2024 11:2 3 AM EST 04/24/2024 11:23 AM EST us Generic External Data Provider LAB BLOOD ORDERAB LES Final Result [facility] [address] [place] [phone] * Liver Fibrosis (HCV), FibroTest-ActiTest Panel (04/24/2024 11:23 AM EST) Liver Fibrosis Score 0.16 [facility] Liver Fibrosis Stage F0 [facility] Liver Fibrosis Interpretation no fibrosis [facility] Comment:Fibro Test Score (f) Metavir Score f>=0 and f<=0.21 : F0 (no fibrosis)f>0.21 and f<=0.27 : F0-F1 (no fibrosis)f>0.27 and f<=0.31 : F1 (minimal fibrosis)f>0.31 and f<=0.48 : F1-F2 (minimal fibrosis)f>0.48 and f<=0.58 : F2 (moderate fibrosis)f>0.58 and f<=0.72 : F3 (advanced fibrosis)f>0.72 and f<=0.74 : F3-F4 (advanced fibrosis)f>0.74 and f<=1.00 : F4 (severe fibrosis) Nec Inflam Act Score 0.04 [facility] Nec Inflam Act Grade A0 [facility] Nec Inflam Act Interpretation no activity [facility] Comment:ActiTest Score (a) M etavir Score a>=0 and a<=0.17 : A0 (no activity)a>0.17 and a<=0.29 : A0-A1 (no activity)a>0.29 and a<=0.36 : A1 (minimal activity)a>0.36 and a<=0.52 : A1-A2 (minimal activity)a>0.52 and a<=0.60 : A2 (significant activity)a>0.60 and a<=0.62 : A2-A3 (significant activity)a>0.62 and a<=1.00 : A3 (severe activity) HAE-Pilxi-1-Macroglo bulin 198 [facility] Comment:REFERENCE RANGE: 106 -279 mg/dL FIB-Haptoglobin 123 [facility] Comment:REFERENCE RANGE: 43- 212 mg/dL FIB-Apolipoprotein A1 164 [facility] Comment:REFERENCE RANGE: 94- 176 mg/dL FIB-Total Bilirubin 0.6 [facility] Comment:REFERENCE RANGE: 0.2 -1.2 mg/dL FIB-GGT 23 [facility] Comment:REFERENCE RANGE: 3-9 5 U/L FIB-ALT 15 [facility] Comment:REFERENCE RANGE: 9-4 6 U/L Reference ID [id number] [facility] Footnote SEE NOTE [facility] Comment: The reliability of results is dependent on compliance withthe preanalytical and analytical conditions recommended by[employer]. The tests have to be deferred for: acutehemolysis, acute hepatitis, acute inflammation, extrahepatic cholestasis. The advice of a specialist should besought for interpretation in chronic hemolysis and Gilbert'ssyndrome. The test interpretation is not validated in livertransplant patients. Isolated extreme values of one of thecomponents should lead to caution in interpreting theresults. In case of discordance between a biopsy result fiordalzia test, it is recommended to seek the advice of aspecialist. The causes of these discordances could be due toa flaw of the test or to a flaw in the biopsy: i.e. a liverbiopsy has a 33% variability rate for one fibrosis stage.FibroTest is interpretable for chronic hepatitis B and C,alcoholic and non alcoholic steatosis. ActiTest isinterpretable for chronic hepatitis B and C.The performance characteristics have been determined by[employer] [facility]. Ithas not been cleared or approved by the U.S. Food and DrugAdministration. Performance characteristics refer to theanalytical performance of the test.Grabbit, the associated logo, [employer] and all associated [employer] serrano are theregistered trademarks of [employer]. All third partymarks - (R) and (TM) - are the property of their respectiveowners. (C) [id number] [employer]. Allrights reserved.THIS TEST PERFORMED AT:[employer] [facility] [place] [phone] DIRECTOR: ANH SCHOFIELD MD, PHD, RIN 04/24/2024 11:2 3 AM EST 04/24/2024 11:23 AM EST us Generic External Data Provider LAB BLOOD ORDERAB LES Final Result [facility] [address] [place] [address] [phone] * HLA-B27 Antigen (04/24/2024 11:23 AM EST) HLA-B27 Antigen Negative Negative [facility] Comment:THIS TEST WAS PERFOR MED AT:[id number] [place] [address]ZBNUMLRMINI NICOLAS MD,PHD 04/24/2024 11:2 3 AM EST 04/24/2024 11:23 AM EST Generic External Data Provider LAB BLOOD ORDERAB LES Final Result Performing Organization Address [facility] Co de Phone Number [facility] [address] [place] [phone] * Thyroid Peroxidase Antibodies (04/24/2024 11:23 AM EST) Thyroid Peroxidase Antibodies <1 <9 IU/mL [facility] Comment:THIS TEST WAS PERFOR MED AT:[employer] [address] [address]AJMNGALOK CESPEDES MD 04/24/2024 11:2 3 AM EST 04/24/2024 11:23 AM EST Generic External Data Provider LAB BLOOD ORDERAB LES Final Result Performing Organization Address [facility] Number [facility] [address] [place] [phone] * Cyclic Citrullinated Peptide (CCP) Antibody (IgG) (04/24/2024 11:23 AM EST) Pathologist [facility] Cyclic Citrullinated Peptide <16 UNITS [facility] Comment:Reference RangeNegat nai: <20Weak Positive: 20-39Moderate Positive: 40-59Strong Positive: >59THIS TEST WAS PERFORMED AT:[employer] [address] [address]KYDNJALOK CESPEDES MD 04/24/2024 11:2 3 AM EST 04/24/2024 11:23 AM EST Generic External Data Provider LAB BLOOD ORDERAB LES Final Result Performing Organization Address [facility] de Phone Number [facility] [address] [place] [phone] * (ABNORMAL) Iron And Total Iron Binding Capacity (04/24/2024 11:23 AM EST) Iron 55 45 - 160 mcg/dL [facility] Total Iron Binding Capacity 223(L) 228 - 428 mcg/dL [facility] Percent Iron Saturation 25 15 - 50 % [facility] Unsaturated Iron Binding 168 ug/dL [facility] 04/24/2024 11:2 3 AM EST 04/24/2024 11:23 AM EST us Generic External Data Provider LAB BLOOD ORDERAB LES Final Result Performing Organization Address City/[facility]/ZIP Co de Phone Number [facility] [address] [place] [phone] * Actin (Smooth Muscle) Antibody (IgG) (04/24/2024 11:23 AM EST) Smooth Muscle Antibody <20 <20 U [facility] Comment:Reference Range: <20 U: Negative>or=20 U: PositiveAntibodies recognizing actin are the main componentof smooth muscle antibodies associated with auto- immune liver disease. Actin antibodies are found inapproximately 75% of patients with autoimmunehepatitis (AIH) type 1, approximately 65% of patientswith autoimmune cholangitis, approximately 30% ofpatients with primary biliary cirrhosis andapproximately 2% of healthy controls. High values areclosely correlated with AIH type 1.THIS TEST WAS PERFORMED AT:[employer]/[facility] [place] [address]ACZCWGNMINI NICOLAS MD,PHD 04/24/2024 11:2 3 AM EST 04/24/2024 11:23 AM EST us Generic External Data Provider LAB BLOOD ORDERAB LES Final Result Performing Organization Address City/[facility]/ZIP Co de Phone Number [facility] [address] [place] [phone] * Honsm-4-Kzmyalgzoaq, Quantitative (04/24/2024 11:23 AM EST) Ltcni-7-Vxcgvxgn sin QN 158 83 - 199 mg/dL [facility] Comment:THIS TEST WAS PERFOR MED AT:[employer] [address] [address]FHAWSANA CESPEDES MD 04/24/2024 11:2 3 AM EST 04/24/2024 11:23 AM EST Generic External Data Provider LAB BLOOD ORDERAB LES Final Result Performing Organization Address [facility] de Phone Number [facility] [address] [place] [address] [phone] * Tissue Transglutaminase Antibody, IgA (04/24/2024 11:23 AM EST) Transglutaminase IgA <1.0 U/mL [facility] Comment:Value Interpretation ----- <15.0 Antibody not detected> or = 15.0 Antibody detectedTHIS TEST WAS PERFORMED AT:[employer] [address] [address]DLUEUANA CESPEDES MD 04/24/2024 11:2 3 AM EST 04/24/2024 11:23 AM EST [facility] External Data Provider LAB BLOOD ORDERAB LES Final Result Performing Organization Address [facility] Co de Phone Number [facility] [address] [place] [phone] * Ceruloplasmin (04/24/2024 11:23 AM EST) Ceruloplasmin 24 14 - 30 mg/dL [facility] Comment:THIS TEST WAS PERFOR MED AT:[employer] [address] [address]YBYZIANA CESPEDES MD 04/24/2024 11:2 3 AM EST 04/24/2024 11:23 AM EST Generic External Data Provider LAB BLOOD ORDERAB LES Final Result Performing Organization Address [facility] Co de Phone Number [facility] [address] [place] [phone] * Liver Kidney Microsomal (LKM-1) Antibody??(IgG) (04/24/2024 11:23 AM EST) Liver Kidney Microsomal (LKM-1) Antibody IgG <=20.0 <=20.0 U [facility] Comment:Reference Range: <=2 0.0 Negative 20.1-24.9 Equivocal >=25.0 PositiveAnti-liver/kidney microsomal antibodies (Anti-LKM-1)were previously tested by indirect immunofluorescence(IF) using rodent liver/kidney substrate.Identification of a specific antibody target ascytochrome P450 IID6 has led to the current recombinantbased JONATHAN. Antibodies to this cytochrome are presentin approximately 70% of patients with autoimmunehepatitis type 2. This antibody is also present inapproximately 10% of patients with hepatitis Cinfection.THIS TEST WAS PERFORMED AT:[employer]/[facility] [place] [address]QWSFDPCMINI NICOLAS MD,PHD 04/24/2024 11:2 3 AM EST 04/24/2024 11:23 AM EST Generic External Data Provider LAB BLOOD ORDERAB LES Final Result Performing Organization Address City/[facility] Co de Phone Number [facility] [address] [place] [phone] * Thyroglobulin Antibodies (04/24/2024 11:23 AM EST) Thyroglobulin Antibodies <1 < or = 1 IU/mL [facility] Comment:THIS TEST WAS PERFOR MED AT:[employer] [address] [address]ILQAAALOK CESPEDES MD 04/24/2024 11:2 3 AM EST 04/24/2024 11:23 AM EST us Generic External Data Provider LAB BLOOD ORDERAB LES Final Result Performing Organization Address [facility] de Phone Number [facility] [address] [place] [phone] * Mitochondrial Antibody with Reflex to Titer (04/24/2024 11:23 AM EST) Mitochondrial Antibodies NEGATIVE NEGATIVE [facility] Comment:THIS TEST WAS PERFOR MED AT:[employer] [place] [address]GXGCOALOK CESPEDES MD Mitochondrial Ab Titer TNP [facility] 04/24/2024 11:2 3 AM EST 04/24/2024 11:23 AM EST Generic External Data Provider LAB BLOOD ORDERAB LES Final Result Performing Organization Address [facility] de Phone Number [facility] [address] [place] [phone] * (ABNORMAL) Sed Rate by Modified Salvatoreergren (04/24/2024 11:23 AM EST) Pathologist [facility] Erythrocyte Sedimentation Rate 33(H) 0 - 15 MM/HR [facility] Comment:Patients with polycy themia and many hemoglobin abnormalitiesmay have depressed sed rates whereas patients with anemiamay have elevated sed rates. 04/24/2024 11:2 3 AM EST 04/24/2024 11:23 AM EST us Generic External Data Provider LAB BLOOD ORDERAB LES Final Result Performing Organization Address [facility] de Phone Number [facility] [address] [place] [phone] * Prothrombin Time-INR (04/24/2024 11:23 AM EST) Pathologist [facility] Prothrombin Time 12.1 10.9 - 12.4 SEC [facility] INTERNATIONAL NORM RATIO 1.0 0.9 - 1.1 [facility] Comment:INTERNATIONAL NORMAL IZED RATIO (INR) REFERENCE RANGES Reference RangeFor patients not on anticoagulant therapy: 0.9 - 1.1INR ranges for oral anticoagulanttherapy:For prevention and treatment of venous thrombosis and pulmonary embolism: 2.0 - 3.0For acute myocardial infarction with aspirin therapy: 2.0 - 3.0For acute myocardial infarction without aspirin therapy: 3.0 - 4.0For patients with mechanical prosthetic heart valves: 2.5 - 3.5 04/24/2024 11:2 3 AM EST 04/24/2024 11:23 AM EST us Generic External Data Provider LAB BLOOD ORDERAB LES Final Result Performing Organization Address City/State/[facility] Co de Phone Number [facility] [address] [place] [phone] * (ABNORMAL) CBC (04/24/2024 11:23 AM EST) White Blood Count 6.6 4.8 - 10.8 X10*3/uL [facility] Red Blood Count 4.37(L) 4.60 - 5.80 X10*6/uL [facility] Hemoglobin 12.3(L) 14.0 - 18.0 g/dl [facility] Hematocrit 37.5(L) 42.0 - 52.0 % [facility] Mean Corpuscular Volume 85.8 80.0 - 98.0 fL [facility] Mean Corpuscular Hemoglobin 28.1 27.0 - 33.0 pg [facility] Mean Corpuscular HGB Conc 32.8 31.0 - 36.0 g/dl [facility] Red Cell Distribution Width 12.9 11.0 - 16.0 % [facility] Platelet Count 115(L) 160 - 400 X10*3/uL [facility] Mean Platelet Volume 13.0(H) 9.4 - 12.4 fL [facility] NRBC Pct Auto 0.0 0.0 - 0.2 /100WBC [facility] NRBC Abs Auto 0.000 0.0 - 0.012 X10*3/uL [facility] 04/24/2024 11:2 3 AM EST 04/24/2024 11:23 AM EST us Generic External Data Provider LAB BLOOD ORDERAB LES Final Result Performing Organization Address [facility] Co de Phone Number [facility] [address] [place] [phone] * Rheumatoid Factor (04/24/2024 11:23 AM EST) Rheumatoid Factor <13.0 <15.0 IU/mL [facility] 04/24/2024 11:2 3 AM EST 04/24/2024 11:23 AM EST Generic External Data Provider LAB BLOOD ORDERAB LES Final Result Performing Organization Address [facility] Phone Number [facility] [address] [place] [address] [phone] * (ABNORMAL) C-reactive Protein (04/24/2024 11:23 AM EST) Only the most recent of2 resultswithin the time period is included. Pathologist [facility] C Reactive Protein 1.33(H) < or = 0.50 mg/dL [facility] 04/24/2024 11:2 3 AM EST 04/24/2024 11:23 AM EST Generic External Data Provider LAB BLOOD ORDERAB LES Final Result Performing Organization Address [facility] de Phone Number [facility] [address] [place] [address] [phone] * COLLETTE Screen,IFA, with Reflex to Titer and Pattern (04/24/2024 11:23 AM EST) Anti Nuclear Antibody Screen NEGATIVE NEGATIVE [facility] Comment:COLLETTE IFA is a first l ine screen for detecting thepresence of up to approximately 150 autoantibodies invarious autoimmune diseases. A negative COLLETTE IFA resultsuggests an COLLETTE-associated autoimmune disease is notpresent at this time, but is not definitive. If thereis high clinical suspicion for Sjogren's syndrome,testing for anti-SS-A/Ro antibody should be considered.Anti-Ellie-1 antibody should be considered for clinicallysuspected inflammatory myopathies.AC-0: NegativeInternational Consensus on COLLETTE Patterns(https://doi.org/10.1515/diwt-1908-2181)For additional information, please refer tohttp://education.ACS Biomarker/faq/TIB793(This link is being provided for informational/educational purposes only.)THIS TEST WAS PERFORMED AT:[employer] [place] [phone] CESPEDES MD COLLETTE Titer [facility] COLLETTE Pattern [facility] COLLETTE TITER 2 (REF LAB) [facility] COLLETTE Pattern 2 [facility] COLLETTE TITER 3 [facility] COLLETTE PATTERN 3 [facility] 04/24/2024 11:2 3 AM EST 04/24/2024 11:23 AM EST us Generic External Data Provider LAB BLOOD ORDERAB LES Final Result [facility] [address] [place] [phone] * Hemoglobin A1c (04/24/2024 11:23 AM EST) Hemoglobin A1c 6.0 <6.0 % [facility] Comment:Hemoglobin A1C Refer ence Range Adults: 4.8 - 6.0 % Non diabetic: < 6.0 % Goal: < 7.0 %Additional Action Suggested: > 8.0 %Note: Hemoglobin A1c results are invalid for patients with abnormal amounts of HbF. Blood transfusions may impact the HbA1c concentration in the patient sample. Estimated Average Glucose 126 mg/dL [facility] Comment:eAG = Estimated ave rage glucose which is %A1C expressed asaverage glucose, using the formula of the P1Q-TdmdacuUtpbqta Glucose study (ADAG), Diabetes Care, Vol.31,#8,2007 04/24/2024 11:2 3 AM EST 04/24/2024 11:23 AM EST us Generic External Data Provider LAB BLOOD ORDERAB LES Final Result Performing Organization Address [facility] de Phone Number [facility] [address] [place] [phone] * (ABNORMAL) Immunoglobulin A (04/24/2024 11:23 AM EST) Immunoglobulin A 474(A) 47 - 310 mg/dL [facility] Comment:THIS TEST WAS PERFOR MED AT:[employer] [place] [phone] CESPEDES MD 04/24/2024 11:2 3 AM EST 04/24/2024 11:23 AM EST us Generic External Data Provider LAB BLOOD ORDERAB LES Final Result Performing Organization Address [facility] de Phone Number [facility] [address] [place] [phone] * Ferritin (04/24/2024 11:23 AM EST) Ferritin 117 20 - 250 ng/mL [facility] 04/24/2024 11:2 3 AM EST 04/24/2024 11:23 AM EST Generic External Data Provider LAB BLOOD ORDERAB LES Final Result Performing Organization Address [facility] de Phone Number [facility] [address] [place] [address] [phone] * Lipid Panel, Standard (04/24/2024 11:23 AM EST) Triglycerides 132 <150 mg/dL [facility] Comment:Desirable Triglyceri de: less than 150 mg/dLBorderline High Triglyceride 150-199 mg/dLHigh Triglyceride: 200-499 mg/dLVery High Triglyceride: greater than or equal to 5OO mg/dL Cholesterol 165 <200 mg/dL [facility] Comment:Desirable Cholestero l: less than 200 mg/dLBorderline High Cholesterol: 200-239 mg/dLHigh Cholesterol: greater than 239 mg/dL LDL Cholesterol Calculated 91 <100 mg/dL [facility] Comment:Desirable LDL: less than 100 mg/dLNear Optimal/Above Optimal LDL: 110- 129 mg/dLBorderline High LDL: 130-159 mg/dLHigh LDL: 160-189 mg/dLVery High LDL: greater than or equal to 190 mg/dL HDL Cholesterol 48 >40 mg/dL [facility] Comment:Desirable HDL: great er than 40 mg/dL Note: This HDL assay may give artificially low results in patients with liver disease. 04/24/2024 11:2 3 AM EST 04/24/2024 11:23 AM EST us Generic External Data Provider LAB BLOOD ORDERAB LES Final Result [facility] [address] [place] [phone] * (ABNORMAL) Comprehensive Metabolic Panel (04/24/2024 11:23 AM EST) Sodium 140 135 - 145 mmol/L [facility] Potassium 4.1 3.3 - 5.1 mmol/L [facility] Chloride 102 96 - 108 mmol/L [facility] Carbon Dioxide 27 22 - 29 mmol/L [facility] Anion Gap 15 12 - 20 [facility] Urea Nitrogen (BUN) 20(H) 9 - 16 mg/dL [facility] Creatinine, Serum 1.17 0.5 - 1.4 mg/dL [facility] Estimated Glomerular Filt Rate >60 [facility] Comment:Chronic Kidney Disea se: Estimated GFR < 60 mL/min/1.58q6Ctdadn Kidney Disease: Estimated GFR < 15 mL/min/1.73m2 Glucose 175(H) 60 - 115 mg/dL [facility] Calcium 9.0 8.4 - 10.2 mg/dL [facility] Bilirubin, Total 0.8 0.0 - 1.0 mg/dL [facility] Aspartate Amino Transferase 25 5 - 37 U/L [facility] Alanine Aminotransferase 21 0 - 40 U/L [facility] Total Protein 7.1 6.5 - 8.0 g/dL [facility] Albumin Level 3.6 3.5 - 5.0 g/dL [facility] Alkaline Phosphatase 78 39 - 117 U/L [facility] 04/24/2024 11:2 3 AM EST 04/24/2024 11:23 AM EST us Generic External Data Provider LAB BLOOD ORDERAB LES Final Result Performing Organization Address City/State/[facility] Co de Phone Number [facility] [address] [place] [phone] * MR Hand w/o Contrast Left (04/19/2024 1:35 PM EST) Anatomical Region Laterality Modality Upper Extremities, Hand Left Magnetic Resonance 04/19/2024 1:35 PM EST Narrative 05/05/2024 9:24 PM EST ? [facility] ?[address] ?[place] [id number] ? Magnetic Resonance Report ? Signed ? Patient: Navarrete,Ross L ?MR#: [id number] ?? 613 ? : 1980 ?Acct:[id number] ? Age/Sex: 43 / M ?ADM Date: 11/22/24 ? Loc: HO.MRI ? Attending Dr: Lorenza Up MD ? Ordering Physician: Lorenza Up MD ?? Date of Service: 04/19/24 ?? Procedure(s): MR hand LT wo con ?? Accession Number(s): [id number] ? cc: Lorenza Up MD; SOFIA MITCHELL NP ? EXAMINATION: ?? MR HAND WITHOUT CONTRAST, LEFT ? CLINICAL INFORMATION: ?? Left hand pain, cramping, weakness. Carpal tunnel. Worsening symptoms. ? COMPARISON: ?? None available. ? TECHNIQUE: ?? MRI of the left hand was performed using routine sequences on a ?? high-field scanner. ? FINDINGS: ?? No acute fracture or dislocation. Normal carpal alignment. Intact ?? articular cartilage. No concerning lytic or blastic osseous lesion. ? A small amount of fluid within the extensor carpi radialis brevis, ?? extensor carpi radialis longus, and minimally within the extensor ?? digitorum tendon sheaths, consistent with minimal tenosynovitis. A ?? transverse tendon tear or tendon retraction. Intact median nerve. ? Intact collateral ligaments. ? No soft tissue mass or fluid collection. No significant joint effusion. ? MR/MR hand LT wo con ?? IMPRESSION: ?? 1. Minimal extensor carpi radialis brevis, extensor carpi radialis ?? longus, and extensor digitorum tenosynovitis. No transverse tendon tear ?? or tendon retraction. ? 2. Otherwise unremarkable examination. ? Electronically signed by: ??Gino Minor MD ??05/05/2024 09:21 PM EST ?? RP ? Dictated By: ?Gino Minor MD ? Signed By: ?<Electronically signed by Gino Minor MD in OV> ?05/05/24 2121 ? DD/ 1335 ? TD/TT: 04/19/24 1400 ? Ditch Rider: SR ? Procedure Note Roseanne, Image - 05/05/2024 [place] [address] Magnetic Resonance Report Signed Patient: Ross Navarrete LMR#: [id number] 613 : 1980Acct:[id number] Age/Sex: 43 / MADM Date: 04/19/24 Loc: HO.MRI Attending Dr: Lorenza Up MD Ordering Physician: Lorenza Up MD Date of Service: 04/19/24 Procedure(s): MR benjamin LT wo con Accession Number(s): [id number] cc: Lorenza Up MD; SOFIA MITCHELL NP EXAMINATION: MR HAND WITHOUT CONTRAST, LEFT CLINICAL INFORMATION: Left hand pain, cramping, weakness. Carpal tunnel. Worsening symptoms. COMPARISON: None available. TECHNIQUE: MRI of the left hand was performed using routine sequences on a high-field scanner. FINDINGS: No acute fracture or dislocation. Normal carpal alignment. Intact articular cartilage. No concerning lytic or blastic osseous lesion. A small amount of fluid within the extensor carpi radialis brevis, extensor carpi radialis longus, and minimally within the extensor digitorum tendon sheaths, consistent with minimal tenosynovitis. A transverse tendon tear or tendon retraction. Intact median nerve. Intact collateral ligaments. No soft tissue mass or fluid collection. No significant joint effusion. MR/MR hand LT wo con IMPRESSION: 1. Minimal extensor carpi radialis brevis, extensor carpi radialis longus, and extensor digitorum tenosynovitis. No transverse tendon tear or tendon retraction. 2. Otherwise unremarkable examination. Electronically signed by: Gino Minor MD 05/05/2024 09:21 PM EST Dictated By: Gino Minor MD Signed By: <Electronically signed by Gino Minor MD in OV> 05/05/24 2121 DD/ 1335 TD/TT: 04/19/24 1400 Ditch Rider: [facility] External Provider IMG MRI PROCEDURES Edited Result - Final * MR Hand w/o Contrast Right (04/19/2024 1:00 PM EST) Anatomical Region Laterality Modality Upper Extremities, Hand Right Magnetic Resonance 04/19/2024 1:00 PM EST Narrative 05/05/2024 9:20 PM EST ? [facility] ?[address] ?[place] [address] ? Magnetic Resonance Report ? Signed ? Patient: Landon,Ross L ?MR#: [id number] ?? 613 ? : 1980 ?Acct:[id number] ? Age/Sex: 43 / M ?ADM Date: 11/22/24 ? Loc: HO.MRI ? Attending Dr: Lorenza Up MD ? Ordering Physician: Lorenza Up MD ?? Date of Service: 04/19/24 ?? Procedure(s): MR hand RT wo con ?? Accession Number(s): [id number] ? cc: Lorenza Up MD; SOFIA MITCHELL NP ? EXAMINATION: ?? MR HAND WITHOUT CONTRAST, RIGHT ? CLINICAL INFORMATION: ?? Right hand pain, cramping, weakness. Carpal tunnel. Worsening symptoms. ? COMPARISON: ?? Right hand radiographs dated 05/03/2019. ? TECHNIQUE: ?? Multisequence MR imaging of the right hand was obtained without ?? contrast on a high-field strength scanner. ? FINDINGS: ?? No acute fracture or dislocation. No marrow edema or evidence of acute ?? osseous injury. Normal carpal alignment. No concerning lytic or blastic ?? osseous lesion. Minimal degenerative arthritis at the 3rd ?? carpometacarpal joint. No periarticular erosion or evidence of ?? infectious or inflammatory arthropathy. ? Trace fluid within the extensor carpi radialis brevis and extensor ?? carpi radialis longus tendon sheaths, consistent with minimal ?? tenosynovitis. No transverse tendon tear or tendon retraction. ?? Unremarkable median nerve. ? Grossly intact collateral ligaments. No evidence of acute injury. ? No soft tissue mass or fluid collection. No significant joint effusion. ? MR/MR hand RT wo con ?? IMPRESSION: ?? 1. Minimal extensor carpi radialis brevis and extensor carpi radialis ?? longus tenosynovitis. No transverse tendon tear or tendon retraction. ? 2. Minimal degenerative arthritis at the 3rd carpometacarpal joint. No ?? periarticular erosion or evidence of infectious or inflammatory ?? arthropathy. ? Electronically signed by: ??Gino Minor MD ??05/05/2024 09:17 PM EST ?? Workstation: [id number] ? Dictated By: ?Gino Minor MD ? Signed By: ?<Electronically signed by Gino Minor MD in OV> ?05/05/242116 ? DD/ 1300 ? TD/TT: 04/19/24 1330 ? Ditch Rider: SR ? Procedure Note Maria T Cronin - 05/06/[address] [address] Magnetic Resonance Report Signed Patient: Ross Navarrete LMR#: [id number] 613 : 1980Acct:[id number] Age/Sex: 43 / MADM Date: 04/19/24 Loc: HO.MRI Attending Dr: Lorenza Up MD Ordering Physician: Lorenza Up MD Date of Service: 04/19/24 Procedure(s): MR hand RT wo con Accession Number(s): [id number] cc: Lorenza Up MD; SOFIA MITCHELL NP EXAMINATION: MR HAND WITHOUT CONTRAST, RIGHT CLINICAL INFORMATION: Right hand pain, cramping, weakness. Carpal tunnel. Worsening symptoms. COMPARISON: Right hand radiographs dated 05/03/2019. TECHNIQUE: Multisequence MR imaging of the right hand was obtained without contrast on a high-field strength scanner. FINDINGS: No acute fracture or dislocation. No marrow edema or evidence of acute osseous injury. Normal carpal alignment. No concerning lytic or blastic osseous lesion. Minimal degenerative arthritis at the 3rd carpometacarpal joint. No periarticular erosion or evidence of infectious or inflammatory arthropathy. Trace fluid within the extensor carpi radialis brevis and extensor carpi radialis longus tendon sheaths, consistent with minimal tenosynovitis. No transverse tendon tear or tendon retraction. Unremarkable median nerve. Grossly intact collateral ligaments. No evidence of acute injury. No soft tissue mass or fluid collection. No significant joint effusion. MR/MR hand RT wo con IMPRESSION: 1. Minimal extensor carpi radialis brevis and extensor carpi radialis longus tenosynovitis. No transverse tendon tear or tendon retraction. 2. Minimal degenerative arthritis at the 3rd carpometacarpal joint. No periarticular erosion or evidence of infectious or inflammatory arthropathy. Electronically signed by: Gino Minor MD 05/05/2024 09:17 PM EST Dictated By: Gino Minor MD Signed By: <Electronically signed by Gino Minor MD in OV> 05/05/24 2117 DD/ 1300 TD/TT: 04/19/24 1330 Ditch Rider: [facility] External Provider IMG MRI PROCEDURES Edited Result - Final * US Scrotum (04/11/2024 1:30 PM EST) Anatomical Region Laterality Modality Body Ultrasound 04/11/2024 1:30 PM EST Narrative 06/07/2024 8:41 AM EST ? [facility] ?[address] ?[place] [address] ? Ultrasound Report ? Signed ? Patient: Navarrete,Ross L ?MR#: [id number] ?? 613 ? : 1980 ?Acct:[id number] ? Age/Sex: 43 / M ?ADM Date: 04/11/24 ? Loc: HO.US ? Attending Dr: Sofia Mitchell NP ? Ordering Physician: SOFIA MITCHELL NP ?? Date of Service: 04/11/24 ?? Procedure(s): US scrotum ?? Accession Number(s): [id number] ? cc: SOFIA MITCHELL NP ? EXAMINATION: ?? US SCROTUM ? CLINICAL INFORMATION: ?? Left inguinal pain radiating to left testicle. ? COMPARISON: ?? Ultrasound scrotum 06/16/2018. ? TECHNIQUE: ?? A sonogram of the scrotum was performed assessing reynaga-scale appearance ?? and color Doppler flow. Spectral Doppler analysis of the arterial and ?? venous flow were performed in the testes bilaterally. ? FINDINGS: ? RIGHT: Right testicle measures 3.75 x 2.46 x 2.87 cm, volume 13.9 mL. ?? No focal testicular parenchymal lesions are visualized. Spectral ?? Doppler analysis of the arterial and venous flow is normal in the right ?? testis. ? Right epididymal head is normal in size. No right hydrocele or ?? varicocele is seen. Right epididymal Doppler flow is normal. ? LEFT: Left testicle measures 3.49 x 2.33 x 2.69 cm, volume 11.5 mL. No ?? focal testicular parenchymal lesions are visualized. Spectral Doppler ?? analysis of the arterial and venous flow is normal in the left testis. ? Left epididymal head is normal in size. No left hydrocele or varicocele ?? is seen. Left epididymal Doppler flow is normal. ? US/US scrotum ?? IMPRESSION: ?? Normal scrotal ultrasound. ? Electronically signed by: ??Hamzah Mcdaniels MD ??06/07/2024 08:38 AM EST RP ? Dictated By: ?Hamzah Mcdaniels MD ? Signed By: ?<Electronically signed by Hamzah Mcdaniels MD in OV> ?/03/22 0838 ? DD/ 1330 ? TD/TT: 04/11/24 1400 ? Ditch Rider: ? Procedure Note Donotuseinterpreter, Image - 06/07/[address] [address] Ultrasound Report Signed Patient: Ross Navarrete LMR#: [id number] 613 : 1980Acct:[id number] Age/Sex: 43 / MADM Date: 04/11/24 Loc: HO.US Attending Dr: Sofia Mitchell NP Ordering Physician: SOFIA MITCHELL NP Date of Service: 04/11/24 Procedure(s): US scrotum Accession Number(s): [id number] cc: SOFIA MITCHELL NP EXAMINATION: US SCROTUM CLINICAL INFORMATION: Left inguinal pain radiating to left testicle. COMPARISON: Ultrasound scrotum 06/16/2018. TECHNIQUE: A sonogram of the scrotum was performed assessing reynaga-scale appearance and color Doppler flow. Spectral Doppler analysis of the arterial and venous flow were performed in the testes bilaterally. FINDINGS: RIGHT: Right testicle measures 3.75 x 2.46 x 2.87 cm, volume 13.9 mL. No focal testicular parenchymal lesions are visualized. Spectral Doppler analysis of the arterial and venous flow is normal in the right testis. Right epididymal head is normal in size. No right hydrocele or varicocele is seen. Right epididymal Doppler flow is normal. LEFT: Left testicle measures 3.49 x 2.33 x 2.69 cm, volume 11.5 mL. No focal testicular parenchymal lesions are visualized. Spectral Doppler analysis of the arterial and venous flow is normal in the left testis. Left epididymal head is normal in size. No left hydrocele or varicocele is seen. Left epididymal Doppler flow is normal. US/US scrotum IMPRESSION: Normal scrotal ultrasound. Electronically signed by: Hamzah Mcdaniels MD 06/07/2024 08:38 AM EST Dictated By: Hamzah Mcdaniels MD Signed By: <Electronically signed by Hamzah Mcdaniels MD in OV> 06/07/24 0838 DD/ 1330 TD/TT: 04/11/24 1400 Ditch Rider: Sofia Mitchell [facility] US PROCEDURES Final Result * HIV-1/2 Antigen and Antibodies, Fourth Generation, with Reflexes (12/13/2023 11:48 AM EDT) HIV AB/AG Nonreactive Nonreactive [facility] Comment:HIV-1 p24 Ag and/or HIV-1/HIV-2 Ab not detected.A test result that is nonreactive does not exclude thepossibility of exposure to or infection with HIV-1 and/orHIV-2. Nonreactive results in this assay for individualswith prior exposure to HIV-1 and/or HIV-2 may be due toantigen and antibody levels that are below the limit ofdetection of this assay.The ObserveIT HIV Ag/Ab Combo assay result andsupplemental assay results should be interpreted inconjunction with the patient's clinical presentation,history and other laboratory results. If the results areinconsistent with clinical evidence, additional testing issuggested to confirm the result. Blood Venous blood specimen / Unknown 12/13/2023 11:48 AM EDT 12/13/2023 12:51 PM EDT Sofia Mitchell [facility] BLOOD ORDERABLES Final Resul t Performing Organization Address City/[facility]/ZIP Co de Phone Number [facility] [address] [place] [address] [phone] * Hepatitis C Antibody with Reflex to HCV, RNA, Quantitative, Real-Time PCR (10/11/2023 6:20 AM EDT) Hepatitis C Antibody Nonreactive Nonreactive [facility] Comment:Antibodies to HCV no t detected; does not exclude early acuteHCV infection. Blood Venous blood specimen / Unknown 10/11/2023 6:20 AM EDT 10/11/2023 6:20 AM EDT Sofia Mitchell [facility] BLOOD ORDERABLES Final Resul t [facility] [address] [place] [phone] [phone] from Last 3 Months or Most Recently Relevant to Health Maintenance Insurance [facility] C3 [employer]-[facility] MEDICAID STAND ADULT Care Teams Seam Hammerer Relationship Specialty Start Date End Date Sofia Mitchell ANP [address] [place] [address] PCP - General Family Medicine 01/18/22
--- OUTSIDE RECORDS SUMMARY | 2024-06-18 16:12 | XMS_ITS | Encounter Summary ---
Author Organization [employer] Address [address] [place] [address] Care Team Providers Care Bulkhead Carpenter Name Role Phone Junie Naheed Espinosa NP Primary Care Provider [phone] Reason for Visit * Reason Comments Foot Problem Long painful toenail s Encounter Details Date Type Department Care Team (Late st Contact Info) Description 06/03/2024 2:30 PM EST Consult Orthopedic Surgery [place] [address] [address] Bg Yeager, DPM 175 [place] [address] Ingrowing nail (Primary Dx); Dermatophytosis of nail; Pain in toe of right foot; Pain in toe of left foot; Difficulty walking; Type II diabetes mellitus with peripheral circulatory disorder (CMS/HCC); Diabetic mononeuropathy simplex (CMS/HCC) Social History Tobacco Use Types Packs/Day Years Used Date Smoking Tobacco: Former Smokeless Tobacco: Never Alcohol Use Standard Drinks/Week Comments No 0 (1 standard drink = 0.6 oz pur e alcohol) Sex and Gender Information Value Date Recorded Sex Assigned at Not on file Gender Identity Not on file Sexual Orientation Not on file Job Start Date Occupation Industry Not on file Not on file Not on file documented as of this encounter Last Filed Vital Signs Vital Sign Reading Time Taken Comments Blood Pressure - - Pulse - - Temperature - - Respiratory Rate - - Oxygen Saturation - - Inhaled Oxygen Concentration - - Weight 170 kg (375 lb) 06/03/2024 3:01 PM EST Height 165.1 cm (5' 5 ) 06/03/2024 3:01 PM EST Body Mass Index 62.4 06/03/2024 3:01 PM EST documented in this encounter Ordered Prescriptions Prescription Sig Dispensed Refills Start Date End Da te ammonium lactate (AmLactin) 12 % lotion Apply topically if needed for dry skin. 400 g 06/03/2024 06/03/2025 documented in this encounter Progress Notes * Bg Yeager DPM - 06/03/2024 2:30 PM EST Last PCP visit:Referring MD: Rut Branham MD at 05/30/2024 IDENTIFIER: Landon is a 43 y.o. year old male who presents for consultation. 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 Pt in NAD. CARDIOLOGY: pt denies chest pain, palpitations LUNGS: pt denies shortness of breath MUSCULOSKELETAL: See HPI, otherwise no joint pain or swelling, back pain, or muscle pain. SKIN: see HPI, otherwise no lesions, rash or itching NEURO: No persistent headache, weakness or numbness The remainder of the review of systems is noncontributory PAST MEDICAL HISTORY: Patient Active Problem List Diagnosis Spondylosis of lumbar region without myelopathy or radiculopathy Pure hypercholesterolemia Pulmonary hypertension (CMS/HCC) Proteinuria BETSY (obstructive sleep apnea) HTN (hypertension) H. pylori infection Gout Elevated liver enzymes DJD (degenerative joint disease) DM (diabetes mellitus), type 2 with renal complications ([facility]/HCC) Diabetes mellitus type 2 with neurological manifestations ([facility]) CTS (carpal tunnel syndrome) Asthma Acquired pes planus Morbid obesity with BMI of 60.0-69.9, adult ([facility]) SOCIAL HISTORY: Social History Tobacco Use Smoking status: Former Smokeless tobacco: Never Substance Use Topics Alcohol use: No ACTIVE MEDICATIONS: No outpatient medications have been marked as taking for the 06/03/24 encounter (Consult) with Bg Yeager DPM. ALLERGIES: Allergies Allergen Reactions Other Cough Seafood: Difficulty breathing PHYSICAL EXAM: Visit Vitals Ht 1.651 m (65 ) Wt 170 kg (375 lb) BMI 62.40 kg/m?? Smoking Status Former BSA 2.58 m?? PODIATRIC EXAMINATION: GENERAL: Patient appears well nourished, with NAD. VASCULAR: Dorsalis pedis pulses are 0/4 bilaterally and Posterior tibial pulses are 2/4 bilaterally. Capillary filling time within normal limits the digits. No pallor on elevation or rubor on dependency. Positive hair growth. No varicosities. Denies rest pain or claudication pain. NEUROLOGICAL: Sharp/dull sensation , protective sensation intact 10/10 with 5.07 semmes dell bilaterally, vibratory sensation with tuning fork intact to the tibial tuberosity. ORTHOPEDIC: Good muscle strength 5/5 of all flexors and extensors. Dorsi flexion of ankle ,10 degrees, plantar flexion WNL. No muscle atrophy. DERMATOLOGICAL:.Toenails: Left Toenail(s) 1-5: Crumbling upon debridement, subungual debris, discoloration, dystrophy, elongation, mycotic appearance, onychomycosis, pain and thickening. Right Toenail(s) 1-5: Crumbling upon debridement, subungual debris, discoloration, dystrophy, elongation, mycotic appearance, onychomycosis, pain and thickening. Annular scaling bilateral feet moccasin distribution Skin thinning texture shiny appearance diffuse hyperpigmentation bilaterally pedal hair decreased BIOMECHANICS: Ankle ROM WNL, STJ ROM wnl, MTJ ROM wnl, 1st MPJ ROM wnl. IMAGING: IMPRESSION: 1. Ingrowing nail 2. Dermatophytosis of nail 3. Pain in toe of right foot 4. Pain in toe of left foot 5. Difficulty walking 6. Type II diabetes mellitus with peripheral circulatory disorder (CMS/HCC) 7. Diabetic mononeuropathy simplex (CMS/HCC) PLAN: Pt was seen and examined, history reviewed. Surgical options discussed and reviewed with patient for nail removal with matrixectomy for chronicrecurring ingrown nails patient is aware to think about it ammonium lactate prescribed for nail softener Discussed with patient regarding proper glucose control, exercise, and diet. Explained to patient proper shoe gear, and importance of daily foot checks. I reviewed neuropathy and why it occurs in diabetics. I educated the patient on proper blood sugar control and the importance of an HgBA1c of less than 7.0%. I reviewed the signs and symptoms of neuropathy with the patient Pt to return for another evaluation in 3 months. Debridement of mycotic toenails 6-10: Verbal informed consent was obtained from the patient. Greater than 6 nails were aseptically debrided in thickness and length with nail nippers Bg Yeager DPM documented in this encounter Plan of Treatment Upcoming Encounters Date Type Department Care Team (Late st Contact Info) Description 09/02/2024 2:00 PM EDT Office Visit Orthopedic Surgery [place] [address] [address] Bg Yeager DPM 175 [place] [address] documented as of this encounter Visit Diagnoses Diagnosis Ingrowing nail- Primary Dermatophytosis of nail Pain in toe of right foot Pain in soft tissues of limb Pain in toe of left foot Pain in soft tissues of limb Difficulty walking Difficulty in walking Type II diabetes mellitus with peripheral circulatory disorder (CMS/HCC) Type II or unspecified type diabetes mellitus with peripheral circulatory disorders, not stated as uncontrolled Diabetic mononeuropathy simplex (CMS/HCC) Type II or unspecified type diabetes mellitus with neurological manifestations, not stated as uncontrolled documented in this encounter Care Teams Bulkhead Carpenter Relationship Specialty Start Date End Date Naheed Zaman NP [address] [phone] PCP - General 02/21/24 documented as of this encounter
--- OUTSIDE RECORDS SUMMARY | 2024-06-18 16:12 | XMS_ITS | Clinical Summary ---
Author Organization 175 [facility] Address [address] [place] [address] Phone Care Team Providers Care Medical Oncologist Name Role Phone Naheed Zaman NP Primary Care Provider [phone] Allergies Active Allergy Reactions Criticality Noted Date Comments Other Cough 04/26/2017 Seafood: Difficulty breathing Medications Medication Sig Dispensed Refills Start Date End Date Status baclofen (LIORESAL) 10 mg tablet Take 1 Tab by mouth 3 times daily as needed (muscle spasms). 12/09/2019 Active blood glucose control high,low (FreeStyle Control) solution Use to calibrate each new bottle of strips. E11.21 07/02/2018 Active blood-glucose meter (FREESTYLE LITE METER MISC) Use to check blood sugars twice daily 08/06/2018 Active clindamycin phosphate 1 % gel, once daily APPLY TO PUSTULES UNTIL HEALED. 01/08/2019 Active clotrimazole (LOTRIMIN) 1 % cream Apply thin layer to affected area twice daily for 2 weeks 04/02/2018 Active flash glucose scanning reader (FREESTYLE FRANCISCO 14 DAY READER MISC) 1 Device by Does not apply route continuous. Use reader to scan sensor at least every 8 hours 02/27/2020 Active flash glucose sensor (FREESTYLE FRANCISCO 14 DAY SENSOR MISC) 1 Device by Does not apply route every 14 days. Apply to the back of the arm every 14 days. 02/27/2020 Active dulaglutide (Trulicity) 1.5 mg/0.5 mL pen injector injection Inject 1.5 mg into the skin once a week. 05/24/2022 Active FREESTYLE LANCETS MISC Use to check blood sugars BID. E11.21 07/02/2018 Active gabapentin (NEURONTIN) 400 mg capsule Take 1 capsule by mouth 3 times daily. Pt needs to choose new pcp and schedule appt for further refills 11/24/2020 Active blood sugar diagnostic (FreeStyle Lite Strips) test strip Use to check blood sugars BID. E11.21 01/10/2020 Active insulin glargine (Lantus Solostar U-100 Insulin) 100 unit/mL (3 mL) injection pen Inject 60 Units into the skin at bedtime. *please close basaglar and dispense lantus 06/24/2021 Active insulin lispro (HumaLOG KwikPen Insulin) 100 unit/mL injection pen Inject 40 Units into the skin 3 times daily (with meals). 07/07/2021 Active pen needle, diabetic 31 gauge x /16 needle Use with insulin 3 times daily 02/07/2020 Active lisinopriL (PRINIVIL,ZESTRIL) 2.5 mg tablet TAKE 1 TABLET BY MOUTH EVERY DAY 01/11/2022 Active ammonium lactate (AmLactin) 12 % lotion Apply topically if needed for dry skin. 400 g 06/03/2024 06/03/2025 Active Active Problems Problem Noted Date Diagnosed Date Morbid obesity with BMI of 60.0-69.9, adult 03/30 Acquired pes planus 05/11/2017 Pure hypercholesterolemia 05/10/2017 Pulmonary hypertension 05/10/2017 Overview (04/17/2024): Mild, ECHO 10/21/10 [facility], EF 65-70% HTN (hypertension) 05/10/2017 H. pylori infection 05/10/2017 Overview (04/17/2024): + serology 08/07/2009, uncertain if treated Gout 05/10/2017 Elevated liver enzymes 05/10/2017 Overview (04/17/2024): fatty liver DJD (degenerative joint disease) 05/10/2017 Overview (04/17/2024): Mild L knee, Mod L shoulder arthropathy Asthma 05/10/2017 Proteinuria 04/30/2017 DM (diabetes mellitus), type 2 with renal compli cations 04/30/2017 Spondylosis of lumbar region without myelopathy or radiculopathy 04/26/2017 Overview (04/17/2024): Saw [facility] Rheumatology BETSY (obstructive sleep apnea) 04/26/2017 Overview (04/17/2024): Polysomnography 08/05/2009, [facility] :On cpap 14 cm H2O 10/23/2017 Home Sleep Study insufficient data. 08/2018 - Pulm ordered split night study. Diabetes mellitus type 2 with neurological manif estations 04/26/2017 CTS (carpal tunnel syndrome) 04/26/2017 Encounters Date Type Department Care Team Description 06/03/2024 2:30 PM EST Consult Orthopedic Surgery - [address] [address] Bg Yeager, DPM Ingrowing nail (Primary Dx); Dermatophytosis of nail; Pain in toe of right foot; Pain in toe of left foot; Difficulty walking; Type II diabetes mellitus with peripheral circulatory disorder (CMS/HCC); Diabetic mononeuropathy simplex (CMS/HCC) from Last 3 Months Immunizations Name Administration Dates Next Due Influenza trivalent, 0.5mL, preservative free (Fluarix; FluLaval; Fluzone) ages 6mo and older (Afluria) 3 years and older 02/27/2012,01/27/2011 Tdap Tetanus diptheria acell ular pertussis (Boostrix; Adacel) 7yo and older 03/15/2011 Surgical History Surgery Date Site/Laterality Comments APPENDECTOMY PROCEDURE: HISTORICAL APPENDECTOMY HERNIA REPAIR PROCEDURE: HISTORICAL HERNIA REPAIR/ING Medical History Medical History Date Comments CTS (carpal tunnel syndrome) 04/26/2017 DX: CTS (carpal tunnel syndrome) DM (diabetes mellitus), type 2 with renal complications (CMS/HCC) 04/30/2017 DX:DM (diabetes mellitus ), type 2 with renal complications (HCC) Proteinuria 04/30/2017 DX:Proteinuria Diabetes mellitus type 2 wit h neurological manifestations (CMS/HCC) 04/26/2017 DX:Diabetes berny itus type 2 with neurological manifestations (HCC) Asthma 05/10/2017 DX:Asthma Elevated liver enzymes 05/10/2017 DX:Elevat ed liver enzymes; COMMENT: fatty liver Gout 05/10/2017 DX:Gout H. pylori infection 05/10/2017 DX:H. 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 DX:History of acute post-streptococcal glomerulonephritis; COMMENT: Hospitalized [facility] with anasarca/ KUNAL 2010, streptolysin titer 1060, kidney bx, Followed in past by Dr Zapata, NSAIDS not recommended HTN (hypertension) 05/10/2017 DX:HTN (hyper tension) Morbid obesity with BMI of 6 0.0-69.9, adult (CMS/HCC) 04/26/2017 DX:Morbid obesity with BMI o f 60.0-69.9, adult ([facility]) BETSY (obstructive sleep apnea) 04/26/2017 DX :BETSY (obstructive sleep apnea); COMMENT: Polysomnography 08/05/2009, [facility] :On cpap 14 cm H2O Pulmonary hypertension (CMS/HCC) 05/10/2017 DX:Pulmonary hypertension (HCC); COMMENT: Mild, ECHO 10/21/10 [facility], EF 65-70% Otherwise normal altho suboptimal views, Dr Hayes, rpt 01/27/[address] Gomez Pure hypercholesterolemia 05/10/2017 DX:Pur e hypercholesterolemia Acquired pes planus 05/11/2017 DX:Acquired pes planus DJD (degenerative joint disease) 05/10/2017 DX:DJD (degenerative joint disease); COMMENT: Mild L knee, Mod L shoulder arthropathy Spondylosis of lumbar region without myelopathy or radiculopathy 04/26/2017 DX:Spondylosis of lumbar r egion without myelopathy or radiculopathy; COMMENT: Saw [facility] Rheumatology Family History Medical History Relation Name Comments Prostate cancer Father Colon cancer Maternal Grandfather Ovarian cancer Mother mental illnes s Relation Name Status Comments Father Maternal Grandfather Mother Social History Tobacco Use [...] file Not on file Not on file Obstetrics History Last Filed Vital Signs Vital Sign Reading Time Taken Comments Blood Pressure - - Pulse - - Temperature - - Respiratory Rate - - Oxygen Saturation - - Inhaled Oxygen Concentration - - Weight 170 kg (375 lb) 06/03/2024 3:01 PM EST Height 165.1 cm (5' 5 ) 06/03/2024 3:01 PM EST Body Mass Index 62.4 06/03/2024 3:01 PM EST Plan of Treatment Upcoming Encounters Date Type Department Care Team (Late st Contact Info) Description 09/02/2024 2:00 PM EDT Office Visit Orthopedic Surgery [facility] [address] [phone] Bg Yeager, DPM 175 [place] [address] Health Maintenance Due Date Last Done Comments Pneumococcal Vaccine: Pediatrics (0 to 5 Years) and At-Risk Patients (6 to 64 Years) (1 of 2 - PCV) 11/14/1987 Diabetes: Annual Foot Exam 11/14/1991 Diabetes: Annual Retina Eye Exam 11/14/1991 Hepatitis A Vaccines (1 of 2 - Risk 2-dose series) 2000 Social Influencers of Health Screening 05/01/2022 Diabetes: Annual Urine Albumin-Creatinine Ratio (uACR) 06/30/2023 02/27/2020 Hepatitis B Vaccines (2 of 3 - 19+ 3-dose series) 11/14/2023 10/17/2023 COVID-19 Vaccine (2023-2 5 season) 2024 12/29/2020, 12/10/2020 Influenza Vaccine (#1) 2024 2, 01/27/2011 Diabetes: Blood Sugar Contro l Test (HGBA1C) 10/22/2024 04/24/2024, 02/27/2020 Depression Screening 01/18/2025 01/19/2024 Diabetes: Annual GFR (Glomerular Filtration Rate) 05/16/2025 05/16/2024, 04/24/2024, 02/27/2020 Hypertension/CHF/CAD Annual BMP Blood Test 05/16/2025 05/16/2024, 04/24/2024, 02/27/2020 Cholesterol Screening (Lipid Panel) 04/24/2029 04/24/2024, 02/27/2020 DTaP,Tdap,and Td Vaccines (3 - Td or Tdap) 10/16/2033 10/17/2023, 03/15/2011 Hepatitis C Screening Completed 10/11/2023 , 06/22/2017 HIV Screening Completed 12/13/2023 HIB Vaccines Aged Out No longer eligi ble based on patient's age to complete this topic HPV Vaccines Aged Out No longer eligi ble based on patient's age to complete this topic IPV Vaccines Aged Out No longer eligi ble based on patient's age to complete this topic MMR Vaccines Aged Out No longer eligi ble based on patient's age to complete this topic Meningococcal ACWY Vaccine Aged Out N o longer eligible based on patient's age to complete this topic RSV Immunization Patients Under 20 months Aged Out No longer eligible b ased on patient's age to complete this topic Varicella Vaccines Aged Out No longer eligible based on patient's age to complete this topic Procedures Procedure Name Priority Date/Time Associated Diagnosis Comments URINE ALBUMIN CREATININE RATIO Routine 02/27/2020 ANNUAL BMP BLOOD TEST Routine 02/27/2020 HEMOGLOBIN A1C Routine 02/27/2020 LIPID PANEL Routine 02/27/2020 HEPATITIS C SCREENING Routine 06/22/2017 from Last 3 Months or Most Recently Relevant to Health Maintenance Results * Urine Albumin Creatinine Ratio (02/27/2020) Pathologist [facility] Urine Albumin Creatinine Ratio Abstracted Historical Provider MD PETER ROMO E * Annual BMP Blood Test (02/27/2020) Pathologist [facility] Annual BMP Blood Test Abstracted Historical Provider MD PETER ROMO E * (ABNORMAL) Hemoglobin A1c (02/27/2020) [facility] Hemoglobin A1C 6.9(A) 6.5 % Blood Venous blood specimen / Unknown Historical Provider LAB BLOOD ORDERAB LES * Lipid panel (02/27/2020) [facility] LDL/HDL Ratio 3 0 - 4 Triglycerides 91 0 - 150 mg/dL Cholesterol 145 0 - 200 mg/dL HDL 58 40 mg/dL LDL Cholesterol 69 0 - 100 mg/dL Blood Venous blood specimen / Unknown Historical Provider LAB BLOOD ORDERAB LES * Hepatitis C Screening (06/22/2017) [facility] Hepatitis C Screening Abstracted Historical Provider HEALTH MAINTENANC E from Last 3 Months or Most Recently Relevant to Health Maintenance Care Teams Medical Oncologist Relationship Specialty Start Date End Date Naheed Zaman NP [address] [phone] PCP - General 02/21/24
--- OUTSIDE RECORDS SUMMARY | 2024-06-18 16:12 | XMS_ITS | Encounter Summary ---
Author Organization [employer] Address [address] [facility] [address] [place] [address] Care Team Providers Care Blow Pit Operator Name Role Phone Naheed Zaman Primary Care Provider [phone] Encounter Details Date Type Department Care Team ([facility] st Contact Info) Description 06/07/2024 Telephone [facility] MEDICINE [address] [place] [address] Naheed Zaman ANP [address] [place] [address] Social History Tobacco Use Types Packs/Day Years [...] AM EDT documented as of this encounter Miscellaneous Notes * Telephone Encounter - Leann Bell - 06/07/2024 12:36 PM EST imaging test was normal letter was sent out to pt on 06/07/2024 documented in this encounter Plan of Treatment Upcoming Encounters Date Type Department Care Team (Late st Contact Info) Description 06/27/2024 11:15 AM EST Office Visit [facility] OPTOMETRY [address] [place] [address] Kaitlyn Burk, OD [address] [place] [address] 06/27/2024 3:00 PM EST Office Visit [facility] MED[facility]INE [address] [place] [address] Rut Branham MD [address] [place] [address] 07/10/2024 2:00 PM EST Office Visit [facility] MED[facility] [address] [place] [address] Naheed Zaman ANP [address] [place] [address] 07/25/2024 3:00 PM EST Office Visit [facility] [address] [place], [place] [phone] Rut Branham MD [address] [place] [address] documented as of this encounter Visit Diagnoses Not on filedocumented in this encounter Additional Health Concerns Assessment Noted Time PHQ-9 Depression Total Score: 25 024 8:12 AM EDT documented as of this encounter Care Teams Blow Pit Operator Relationship Specialty Start Date End Date Naheed Zaman ANP [address] [place], [place] [phone] PCP - General Family Medicine 01/18/22 documented as of this encounter
--- OUTSIDE RECORDS SUMMARY | 2024-06-18 16:13 | XMS_ITS | Encounter Summary ---
Author Organization [employer] Address [address] [facility] [address] [place] [address] Care Team Providers Care [employer] Maintenance Worker Name Role Phone Naheed Zaman JOSIAH Primary Care Provider [phone] Reason for Visit * Reason Onset Date Comments June recall 05/23/2024 Encounter Details Date Type Department Care Team (Late st Contact Info) Description 05/23/2024 Telephone [facility] MED[facility]INE [address] [place] [address] [place] June recall Social History Tobacco Use Types Packs/Day Years [...] encounter Miscellaneous Notes * Telephone Encounter - Judi Brumfield [place] - 05/23/2024 11:35 AM EST T/C to pt to schedule a recall . for 30 min pain, DM. PT agreed to come in on 07/10/24 at 2pm. documented in this encounter Plan of Treatment Upcoming Encounters Date Type Department Care Team (Late st Contact Info) Description 06/27/2024 11:15 AM EST Office Visit [facility] OPTOMETRY [address] [place] [address] Kaitlyn Burk, OD [address] [place] [address] 06/27/2024 3:00 PM EST Office Visit [facility] MEDICINE [address] [place] [address] Rut Branham MD [address] [place] [address] 07/10/2024 2:00 PM EST Office Visit [facility] [address] [place] [phone] Naheed Zaman ANP 230 [place] [address] 07/25/2024 3:00 PM EST Office Visit [facility] [address] [place] [address] Rut Branham MD [address] [place] [address] documented as of this encounter Visit Diagnoses Not on filedocumented in this encounter Additional Health Concerns Assessment Noted Time PHQ-9 Depression Total Score: 25 024 8:12 AM EDT documented as of this encounter Care Teams [employer] Maintenance Worker Relationship Specialty Start Date End Date Naheed Zaman ANP [address] [place] [address] PCP - General Family Medicine 01/18/22 documented as of this encounter
--- OUTSIDE RECORDS SUMMARY | 2024-06-18 16:13 | XMS_ITS | Encounter Summary ---
Author Organization [employer] Address 75 [facility] 7t [place] [address] Care Team Providers Care Clinic Physician Director Name Role Phone Naheed Zaman JOSIAH Primary Care Provider [phone] Reason for Visit * Reason Comments Med Refill Encounter Details Date Type Department Care Team ([facility] st Contact Info) Description 09/14/2023 Refill [facility] MEDICINE [address] [place], [place] [phone] Dayna Cardenas MD [address] [place], [place] [phone] Uncomplicated opioid dependence (CMS/HCC) Social History Tobacco Use Types Packs/Day Years Used Date Smoking Tobacco: Never Passive Smoke Exposure: Never Smokeless Tobacco: Never Alcohol Use Standard Drinks/Week Comments Never 0 (1 standard drink = 0.6 oz pur e alcohol) Depression Answer Date Recorded Patient Health Questionnaire-9 Score 6 11/18/2022 Housing Stability Answer Date Recorded What is [...] Answer Date Recorded Patient Health Questionnaire-2 Score 0 07/06/2023 Sex and Gender Information Value Date Recorded Sex Assigned at Male 03/28/2022 10:21 AM EDT Legal Sex Male 10:21 AM EDT Gender Identity Male 03/28/2022 10:21 AM EDT Sexual Orientation Straight 03/28/2022 10 :21 AM EDT documented as of this encounter Plan of Treatment Upcoming Encounters Date Type Department Care Team (Late st Contact Info) Description 06/27/2024 11:15 AM EST Office Visit [facility] OPTOMETRY [address] [place] [address] TarKaitlyn brooks, OD [address] [place] [address] 06/27/2024 3:00 PM EST Office Visit [facility] MEDICINE [address] [place] [address] Rut Branham MD 230 [place] [address] 07/10/2024 2:00 PM EST Office Visit [facility] MEDICINE [address] [place] [address] Naheed Zaman ANP 230 [place] [address] 07/25/2024 3:00 PM EST Office Visit [facility] MEDICINE [address] [place] [address] Rut Branham MD [address] [place] [address] documented as of this encounter Visit Diagnoses Diagnosis Uncomplicated opioid dependence (CMS/HCC) documented in this encounter Additional Health Concerns Assessment Noted Time PHQ-9 Depression Total Score: 6 11/18/ 23 3:29 PM EDT documented as of this encounter Care Teams Clinic Physician Director Relationship Specialty Start Date End Date Naheed Zaman ANP [address] [place] [address] PCP - General Family Medicine 01/18/22 documented as of this encounter
--- OUTSIDE RECORDS SUMMARY | 2024-06-18 16:13 | XMS_ITS | Encounter Summary ---
Author Organization [employer] Address 75 [facility] 7t [place] [address] Care Team Providers Care Natural Resources Faculty Member Name Role Phone Naheed Zaman Primary Care Provider [phone] Reason for Visit * Reason Onset Date Comments Durable Medical Equipment 10/04/2022 Encounter Details Date Type Department Care Team (Late st Contact Info) Description 10/04/2022 Telephone [facility] MEDICINE [address] [place] [address] Naheed Zaman ANP [address] [place] [address] Durable Medical Equipment Social History Tobacco Use Types Packs/Day Years [...] Orientation Straight 03/28/2022 10 :21 AM EDT COVID-19 Exposure Response Date Recorded In the last 10 days, have yo u been in contact with someone who was confirmed or suspected to have Coronavirus/COVID-19? No / Unsure 09/22/2022 1:47 PM EDT documented as of this encounter Miscellaneous Notes * Telephone Encounter - Jerome Hunter Kinza - 10/04/2022 12:13 PM EDT Tc from pt requesting a Script for Compressions socks. Please contact pt at [phone] documented in this encounter Plan of Treatment Upcoming Encounters Date Type Department Care Team (Late st Contact Info) Description 06/27/2024 11:15 AM EST Office Visit [facility] OPTOMETRY [address] [place] [address] Kaitlyn Burk, OD [address] [place] [address] 06/27/2024 3:00 PM EST Office Visit [facility] MEDICINE [address] [place] [address] Rut Branham MD [address] [place] [address] 07/10/2024 2:00 PM EST Office Visit [address] [address] Naheed Zaman ANP [address] [place] [address] 07/25/2024 3:00 PM EST Office Visit [address] [address] Rut Branham MD 230 [place] [address] documented as of this encounter Visit Diagnoses Not on filedocumented in this encounter Care Teams Natural Resources Faculty Member Relationship Specialty Start Date End Date Naheed Zaman ANP [address] [place] [address] PCP - General Family Medicine 01/18/22 documented as of this encounter
--- OUTSIDE RECORDS SUMMARY | 2024-06-18 16:13 | XMS_ITS | Encounter Summary ---
Author Organization [employer] Address [address] [place] [address] 7 [place] [address] Care Team Providers Care Educational Psychologist Name Role Phone Naheed Zaman Primary Care Provider [phone] Encounter Details Date Type Department Care Team (Latest Contact Info) Description 12/29/2021 Abstract [facility] CONVERSIONS Dental, Provider, DDS Social History Tobacco Use Types Packs/Day Years Used Date Smoking Tobacco: Never Assessed Sex and Gender Information Value Date Recorded Sex Assigned at Male 03/28/2022 10:21 AM EDT Legal Sex Male 10:21 AM EDT Gender Identity Male 03/28/2022 10:21 AM EDT Sexual Orientation Straight 03/28/2022 10 :21 AM EDT documented as of this encounter Plan of Treatment Upcoming Encounters Date Type Department Care Team ( Contact Info) Description 06/27/2024 11:15 AM EST Office Visit [facility] OPTOMETRY [address] [place] [address] Kaitlyn Burk, KVNG [address] [place] [address] 06/27/2024 3:00 PM EST Office Visit [facility] MEDICINE [address] [place] [address] Rut Branham MD 230 [place] [address] 07/10/2024 2:00 PM EST Office Visit [facility] MEDICINE [address] [place] [address] Naheed Zaman ANP 230 [place] [address] 07/25/2024 3:00 PM EST Office Visit [facility] MEDICINE [address] [place], [place] [phone] Rut Branham MD 230 [place], [place] [phone] documented as of this encounter Visit Diagnoses Not on filedocumented in this encounter Care Teams Educational Psychologist Relationship Specialty Start Date End Date Naheed Zaman ANP [address] [place] [phone] PCP - General Family Medicine 01/18/22 documented as of this encounter
--- OUTSIDE RECORDS SUMMARY | 2024-06-18 16:13 | XMS_ITS | Encounter Summary ---
Author Organization [email or web address] Address 75 [facility] 7t [place] [address] Care Team Providers Care Production Control Supervisor Name Role Phone Naheed Zaman JOSIAH Primary Care Provider [phone] Encounter Details Date Type Department Care Team (Latest Contact Info) Description 05/30/2024 Travel Social History Tobacco Use Types Packs/Day Years [...] Description 06/27/2024 11:15 AM EST Office Visit [facility] OPTOMETRY [address] [place] [address] Tarcecilia Kaitlyn, OD 267 [place] [address] 06/27/2024 3:00 PM EST Office Visit [facility] MEDICINE [address] [place] [address] Rut Branham MD [address] [place] [address] 07/10/2024 2:00 PM EST Office Visit [facility] MEDICINE [address] [place] [address] Naheed Zaman ANP [address] [place] [address] 07/25/2024 3:00 PM EST Office Visit [facility] MEDICINE [address] [place] [address] Rut Branham MD [address] [place] [address] documented as of this encounter Visit Diagnoses Not on filedocumented in this encounter Additional Health Concerns Assessment Noted Time PHQ-9 Depression Total Score: 25 024 8:12 AM EDT documented as of this encounter Care Teams Production Control Supervisor Relationship Specialty Start Date End Date Naheed Zaman ANP [address] [place] [address] PCP - General Family Medicine 01/18/22 documented as of this encounter
--- OUTSIDE RECORDS SUMMARY | 2024-06-18 16:13 | XMS_ITS | Encounter Summary ---
Author Organization [employer] Address 75 [facility] 7 [place] [address] Care Team Providers Care Standards Engineer Name Role Phone Naheed Zaman Primary Care Provider [phone] Reason for Visit * Reason Comments OBAT Encounter Details Date Type Department Care Team ([facility] st Contact Info) Description 05/30/2024 2:45 PM EST Office Visit [facility] MEDICINE [address] [place] [address] Rut Branham MD [address] [place] [address] Opioid type dependence, continuous (CMS/HCC) (Primary Dx); Severe episode of recurrent major depressive disorder, without psychotic features (CMS/HCC) Social History Tobacco Use Types Packs/Day [...] AM EDT documented as of this encounter Progress Notes * Rut Branham MD - 05/30/2024 2:45 PM EST Patient here today for Opioid Dependence Patient on current Suboxone dose of 24/6 mg on a 4 week schedule. Pt has been in the program for 2 year 6 months. Induction date: 12/16/21. LFTs done 06/06/23. Patient enrolled in [facility]. RAMONE GAY reviewed by provider. Last PCP appt 09/19/23. LAST-05/02/24 POS:BUP,THC NEG:FEN Ross is being seen for OBAT services. He is maintaining abstinence with no cravings or med side effects. He continues to be very depressed. Doesn't want to talk to anyone, doesn't want to meet with anyone. Tearful. He thinks he may have gotten a call about a psychiatry appointment, but isn't sure. Denies SI. TODAY-05/30/24 POS:BUP,THC NEG:FEN Subjective Patient ID: Ross Navarrete is a 43 y.o. male who presents for OBAT. Ross is being seen for OBAT services. He is maintaining abstinence with no cravings or med side effects. He tells me that he had a telehealth psychiatry appointment with [facility] on 05/23, and they sent the police to his house and he was admitted to the psych unit at [facility] for 2-3 days. He says that he didn'tget any treatment or medication while there, and he feels like this made his situation worse. (I'm unable to find any notes from the telepsychiatry visit or [facility] inpatient admission) Denies active suicidal thoughts. States that he wants to continue looking for a psychiatrist, but wants someone who understands him culturally and linguistically. He is following with [facility]. Review of Systems Objective Physical Exam Constitutional: Appearance: Normal appearance. He is well-developed. Skin: General: Skin is warm and dry. Neurological: General: No focal deficit present. Mental Status: He is alert and oriented to person, place, and time. Mental status is at baseline. Psychiatric: Mood and Affect: Mood normal. Behavior: Behavior normal. Assessment/Plan Diagnoses and all orders for this visit: Opioid type dependence, continuous ([facility]) Counseling provided RE: importance of multiple sources of support for achieving and maintaining recovery. Counseling RE: harm reduction measures, ie, not using alone, the use of clean needles/equipment, Narcan. Discussed strategies to use when confronted with situations that trigger use. Continue current Suboxone dose. - POCT RAMSES-14 Urine Drug Screen Severe episode of recurrent major depressive disorder, without psychotic features ([facility]) Will refer Ross to Jermaine Suárez here at [facility] for psychiatric care. This information has been disclosed to you from records protected by federal confidentiality rules (42 CFR Part 2). The federal rules prohibit you from making any further disclosure of information inthis record that identifies a patient as having or having had a substance use disorder either directly, by reference to publicly available information, or through verification of such identification by another person unless further disclosure is expressly permitted by the written consent of the individual whose information is being disclosed or as otherwise permitted by (see2.3.1). The federal rules restrict any use of the information to investigate or prosecute with regard to a crime any patient with a substance use disorder, except as provided at 2.12??(5) and 2.65. documented in this encounter Plan of Treatment Upcoming Encounters Date Type Department Care Team (Late st Contact Info) Description 06/27/2024 11:15 AM EST Office Visit [facility] OPTOMETRY [address] [place] [address] Kaitlyn Burk, OD [address] [place] [address] 06/27/2024 3:00 PM EST Office Visit [facility] MEDICINE [address] [place] [address] Rut Branham MD [address] [place] [address] 07/10/2024 2:00 PM EST Office Visit [facility] MEDICINE [address] [place] [address] Naheed Zaman ANP [address] [place] [address] 07/25/2024 3:00 PM EST Office Visit [address] [address] Rut Branham MD [address] [place] [address] documented as of this encounter Procedures Procedure Name Priority Date/Time Associated Diagnosis Comments POCT RAMSES-14 URINE DRUG SCREEN Routine 05/30/2024 1:16 PM EST Opioid type dependence, continuous ([facility]) documented in this encounter Results * POCT RAMSES-14 Urine Drug Screen (05/30/2024 1:16 PM EST) THC Positive Cocaine Screen, Urine Negative Opiate [...] CARE TEST ENTER/YI T ORDERABLES Final Result documented in this encounter Visit Diagnoses Diagnosis Opioid type dependence, continuous (CMS/HCC)- Primary Opioid type dependence, continuous Severe episode of recurrent major depressive disorder, without psychotic features (CMS/HCC) documented in this encounter Additional Health Concerns Assessment Noted Time PHQ-9 Depression Total Score: 25 024 8:12 AM EDT documented as of this encounter Care Teams Standards Engineer Relationship Specialty Start Date End Date Naheed Zaman ANP [address] [place] [address] PCP - General Family Medicine 01/18/22 documented as of this encounter
--- OUTSIDE RECORDS SUMMARY | 2024-06-18 16:13 | XMS_ITS | Encounter Summary ---
Author Organization [employer] Address 75 [facility] 7t [place] [address] Care Team Providers Care Commercial Lender Name Role Phone Junie Naheed RAHMAN Primary Care Provider [phone] Reason for Visit * Reason Onset Date Comments [facility] 12/12/2023 Encounter Details Date Type Department Care Team ([facility] st Contact Info) Description 12/12/2023 Telephone [facility] ADULT DENTAL [address] [place] [address] Zay Schmidt DDS [address] [place] [address] [facility] Social History Tobacco Use Types Packs/Day Years Used Date Smoking Tobacco: Never Passive Smoke Exposure: Never Smokeless Tobacco: Never Alcohol Use Standard Drinks/Week Comments Never 0 (1 standard drink = 0.6 oz pur e alcohol) Depression Answer Date Recorded Patient Health Questionnaire-9 Score 25 12/15/2023 Patient Health Questionnaire-9 Score 25 12/15/2023 Last PHQ-9: Questionnaire Data Not on file 0 12/15/2023 Housing Stability Answer Date Recorded What is [...] Date Recorded Patient Health Questionnaire-2 Score 6 12/15/2023 Sex and Gender Information Value Date Recorded Sex Assigned at Male 03/28/2022 10:21 AM EDT Legal Sex Male 10:21 AM EDT Gender Identity Male 03/28/2022 10:21 AM EDT Sexual Orientation Straight 03/28/2022 10 :21 AM EDT documented as of this encounter Miscellaneous Notes * Telephone Encounter - Christina Morrison - 12/12/2023 12:45 PM EDT Message for Dr. Brayan Lora office from Pain Management called with patient to clarify what antibiotic patient was taking. Patient spoke to me as well. I explained that patient was scripted Amoxicillin 500mg to be taken daily for 7 days every 8 hour. They went on to explain along with patient that he is still feeling pain and believes that he still has infection. Upon speaking with patient, he stated that he hasonly been taking 1 antibiotic a day because he has a problem with his stomach. I explained that this would be the reason why he is not feeling any relief because meds are not taking as scripted. Dr. Fleming then came on the line and asked if the patient can have a steroid injection for the pain or if it would make his toothache worse. I explained that I am unableo answer the questions and would have to defer to provider. They are going to rs his pain mangement appt because if his infection is not well controlled it can cause cardiac concerns. Provider did ask if he can have another/different antibiotics. I explained that I would relay request to provider but that it would be important on theend of the pain management office as well that they explain the importance of taking the medicationas scripted for dental relief. Pain Management office phone number [phone] documented in this encounter Plan of Treatment Upcoming Encounters Date Type Department Care Team (Late st Contact Info) Description 06/27/2024 11:15 AM EST Office Visit [facility] OPTOMETRY [address] [place] [address] Kaitlyn Burk, OD [address] [place] [address] 06/27/2024 3:00 PM EST Office Visit [facility] MEDICINE [address] [place] [address] Rut Branham MD [address] [place] [address] 07/10/2024 2:00 PM EST Office Visit [facility] MEDICINE [address] [place] [address] Naheed Zaman ANP [address] [place] [address] 07/25/2024 3:00 PM EST Office Visit [facility] MEDICINE [address] [place] [address] Rut Branham MD [address] [place] [address] documented as of this encounter Visit Diagnoses Not on filedocumented in this encounter Additional Health Concerns Assessment Noted Time PHQ-9 Depression Total Score: 23 024 3:25 PM EDT documented as of this encounter Care Teams Commercial Lender Relationship Specialty Start Date End Date Naheed Zaman ANP [address] [place] [address] PCP - General Family Medicine 01/18/22 documented as of this encounter
--- OUTSIDE RECORDS SUMMARY | 2024-06-18 16:13 | XMS_ITS | Encounter Summary ---
Author Organization [employer] Address [address] [facility] 7t [place] [address] Care Team Providers Care Helicopter Specialist Name Role Phone Naheed Zaman JOSIAH Primary Care Provider Encounter Details Date Type Department Care Team ([facility] st Contact Info) Description 06/04/2024 9:40 AM EST Office Visit [facility] [address] [place] [address] Fermin Steward MD [address] [place] [address] Chest pain, unspecified type (Primary Dx); Acute intractable headache, unspecified headache type; Hypertension, unspecified type Social History Tobacco Use Types Packs/Day Years [...] AM EDT documented as of this encounter Last Filed Vital Signs Vital Sign Reading Time Taken Comments Blood Pressure 177/84 06/04/2024 9:08 AM EST Pulse 83 06/04/2024 9:08 AM EST Temperature 36.4 ??C (97.5 ??F) 06/04/2024 9:08 AM ES T Respiratory Rate 20 06/04/2024 9:08 AM EST Oxygen Saturation 99% 06/04/2024 9:08 AM EST RA Inhaled Oxygen Concentration - - Weight - - Height - - Body Mass Index - - documented in this encounter Progress Notes * Thuy Paul RN - 06/04/2024 9:40 AM EST Pt presents to Walk In reporting constant pain, cannot be specific where the pain is at this moment, but then reporting all of left side of body including chest for two weeks. Pt reports pain at this moment is 50/10, unable to sleep. Pt reporting numbness to hands, more left than right. Pt alsoreporting he gets left shoulder injections(being seen by Rheumatology, dx with tenosynovitis.) Pt reports taking medications as prescribed including lisinopril. [facility] Walk In staff, assisting with translation. EKG and vitals obtained with [facility] Pleitez. Report given to Dr. Steward, whom is to see pt next. * Fermin Steward MD - 06/04/2024 9:40 AM ESTAssociated Order(s): ECG 12 lead Post-Procedure Diagnose(s): Chest pain, unspecified type Subjective Patient ID: Ross Navarrete is a 43 y.o. male. V Block Saw Operator: Wayne HOLLINGSWORTH Ross has 2 week h/o pain in left arm that has spread to left chest, left eye, left side of head and face, keeps him awake at night, difficult to describe pain,worse with movements, lessens when not moving. States is always SOB, now worse, always has nausea, has worsening of previous diaphoresis. ?family h/o CAD. Tried meloxicam, gabapentin. Has Humira injections from [facility]. Lives with . Not employed. Never smoked. In our Suboxone program. 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 pylori infection Gout Elevated liver enzymes Arthritis CTS (carpal tunnel syndrome) Asthma Acquired pes planus Bilateral lower extremity edema Periodontal disease Severe episode of recurrent major depressive disorder, without psychotic features (CMS/HCC) Opioid use disorder MICHAEL (generalized anxiety disorder) Headache Venous stasis dermatitis of both lower extremities Venous insufficiency of both lower extremities Candidiasis of perineum The following portions of the chart were reviewed this encounter and updated as appropriate: Review of Systems Constitutional: Positive for chills. Negative for fever. Respiratory: Positive for shortness of breath. Cardiovascular: Positive for chest pain. Gastrointestinal: Positive for nausea and vomiting. Negative for abdominal pain. Skin: Negative for rash. Neurological: Positive for headaches. Objective Physical Exam Constitutional: Appearance: Normal appearance. HENT: Right Ear: Tympanic membrane, ear canal and external ear normal. Left Ear: Tympanic membrane, ear canal and external ear normal. Nose: Nose normal. Mouth/Throat: Mouth: Mucous membranes are moist. Pharynx: Oropharynx is clear. Eyes: Conjunctiva/sclera: Conjunctivae normal. Pupils: Pupils are equal, round, and reactive to light. Cardiovascular: Rate and Rhythm: Normal rate and regular rhythm. Heart sounds: No murmur heard. Pulmonary: Effort: Pulmonary effort is normal. Breath sounds: Normal breath sounds. Musculoskeletal: General: Normal range of motion. Cervical back: No tenderness. Skin: Findings: No rash. Neurological: Mental Status: He is alert. Gait: Gait is intact. Psychiatric: Mood and Affect: Mood normal. Behavior: Behavior normal. ECG 12 lead Date/Time: 06/04/2024 9:47 AM Performed by: Fermin Steward MD Authorized by: Fermin Steward MD Previous ECG: Previous ECG: Unavailable Interpretation: Interpretation: abnormal Quality: Tracing quality: Limited by artifact Rate: ECG rate: 86 ECG rate assessment: normal Rhythm: Rhythm: sinus rhythm Ectopy: Ectopy: none QRS: QRS axis: Normal ST segments: ST segments: Normal T waves: T waves: normal Q waves: Abnormal Q-waves: not present Other findings: Other findings: LAE Assessment/Plan Diagnoses and all orders for this visit: Chest pain, unspecified type EKG: no acute findings. He declined an aspirin. Referred to ED now for further evaluation. Acute intractable headache, unspecified headache type As above. Hypertension, unspecified type Has home BP monitor. Reviewed BP parameters, given written BP log that includes BP parameters, to keep daily. Call if BP readings are elevated. Other orders - ECG 12 lead * Thuy Paul RN - 06/04/2024 9:40 AM EST Expect called to [facility] via private car per Dr. Steward. Verbal report given to Judi, whom verbalized understanding. Judi/ [facility] to F/U as needed. documented in this encounter Plan of Treatment Upcoming Encounters Date Type Department Care Team (Late st Contact Info) Description 06/27/2024 11:15 AM EST Office Visit [facility] [address] [place] [address] Kaitlyn Burk, OD [address] [place], [place] [address] 06/27/2024 3:00 PM EST Office Visit [facility] [address] [facility] [place] [place] [address] Rut Branham MD [address] [place] [address] 07/10/2024 2:00 PM EST Office Visit [facility] [address] [place] [address] Naheed Zaman ANP [address] [place] [address] 07/25/2024 3:00 PM EST Office Visit [facility] [address] [place] [address] Rut Branham MD [address] [place] [address] Pending Results Name Type Priority Associated Diagnoses Date /Time ECG 12 lead ECG Routine Chest pain, unspecified type 06/04/2024 1:00 PM EST documented as of this encounter Procedures Procedure Name Priority Date/Time Associated Diagnosis Comments ECG 12-LEAD Routine 06/04/2024 1:00 PM EST Chest pain, unspecified type documented in this encounter Visit Diagnoses Diagnosis Chest pain, unspecified type- Primary Acute intractable headache, unspecified headache type Hypertension, unspecified type documented in this encounter Additional Health Concerns Assessment Noted Time PHQ-9 Depression Total Score: 25 024 8:12 AM EDT documented as of this encounter Care Teams Helicopter Specialist Relationship Specialty Start Date End Date Naheed Zaman ANP [address] [place] [address] PCP - General Family Medicine 01/18/22 documented as of this encounter
--- OUTSIDE RECORDS SUMMARY | 2024-06-18 16:13 | XMS_ITS | Encounter Summary ---
Author Organization [employer] Address [address] [facility] 7t [place] [address] Care Team Providers Care Mixer Diamond Powder Name Role Phone Naheed Zaman JOSIAH Primary Care Provider [phone] Reason for Visit * Reason Onset Date Comments Med Refill 05/23/2024 Encounter Details Date Type Department Care Team (Late st Contact Info) Description 05/23/2024 Refill [facility] [address] [place] [address] Tristen Chen, APRIL [address] [place] [address] Uncomplicated opioid dependence (CMS/HCC) Social History Tobacco [...] Description 06/27/2024 11:15 AM EST Office Visit [facility] OPTOMETRY [address] [place] [address] GilmarceciliaKaitlyn, OD [address] [place] [address] 06/27/2024 3:00 PM EST Office Visit [facility] MEDICINE [address] [place] [address] Rut Branham MD [address] [place] [address] 07/10/2024 2:00 PM EST Office Visit [facility] MEDICINE [address] [place] [address] Naheed Zaman ANP [address] [place] [address] 07/25/2024 3:00 PM EST Office Visit [facility] MED[facility]INE [address] [place] [address] Rut Branham MD [address] [place] [address] documented as of this encounter Visit Diagnoses Diagnosis Uncomplicated opioid dependence (CMS/HCC) documented in this encounter Additional Health Concerns Assessment Noted Time PHQ-9 Depression Total Score: 25 024 8:12 AM EDT documented as of this encounter Care Teams Mixer Diamond Powder Relationship Specialty Start Date End Date Naheed Zaman ANP [address] [place] [address] PCP - General Family Medicine 01/18/22 documented as of this encounter
--- OUTSIDE RECORDS SUMMARY | 2024-06-18 16:13 | XMS_ITS | Encounter Summary ---
Author Organization [employer] Address [address] [facility] 7t [place] [address] Care Team Providers Care Joinery Factory Worker Name Role Phone Naheed Zaman Primary Care Provider [phone] Reason for Visit * Reason Comments Med Refill Encounter Details Date Type Department Care Team ([facility] st Contact Info) Description 08/18/2023 Refill [facility] MED[facility] [address] [place], [place] [phone] Naheed Zaman ANP 230 [place] [address] Chronic low back pain without sciatica, unspecified back pain laterality Social History Tobacco Use Types Packs/Day Years [...] to shut off services in your home? Yes 06/27/2023 Depression Answer Date Recorded Patient Health Questionnaire-2 [...] Description 06/27/2024 11:15 AM EST Office Visit [facility] OPTOMETRY [address] [place] [address] Gilmarcecilia Kaitlyn, OD [address] [place] [address] 06/27/2024 3:00 PM EST Office Visit [facility] MEDICINE [address] [place] [address] Rut Branham MD [address] [place] [address] 07/10/2024 2:00 PM EST Office Visit [facility] MED[facility]INE [address] [place] [address] Naheed Zaman ANP [address] [place] [address] 07/25/2024 3:00 PM EST Office Visit [facility] MED[facility]INE [address] [place] [address] Rut Branham MD [address] [place] [address] documented as of this encounter Visit Diagnoses Diagnosis Chronic low back pain without sciatica, unspecified back pain laterality documented in this encounter Additional Health Concerns Assessment Noted Time PHQ-9 Depression Total Score: 6 11/19/19 23 3:29 PM EDT documented as of this encounter Care Teams Joinery Factory Worker Relationship Specialty Start Date End Date Naheed Zaman ANP [address] [place] [address] PCP - General Family Medicine 01/18/22 documented as of this encounter
--- OUTSIDE RECORDS SUMMARY | 2024-06-18 16:13 | XMS_ITS | Encounter Summary ---
Author Organization [employer] Address [address] [facility] 7t [place] [address] Care Team Providers Care Drywall Worker Name Role Phone Naheed Zaman JOSIAH Primary Care Provider [phone] Reason for Visit * Reason Comments Rash Encounter Details Date Type Department Care Team ([facility] Contact Info) Description 05/20/2024 2:20 PM EST Office Visit [facility] [address] [place] [address] Desirae Cowan MD [address] [place] [address] Candidiasis of perineum (Primary Dx) Social History Tobacco Use Types [...] the past 12 months, has t he [employer] gas, oil or water company threatened to [...] Sign Reading Time Taken Comments Blood Pressure 158/94 05/20/2024 2:18 PM EST Pulse 97 05/20/2024 2:18 PM EST Temperature 37.1 ??C (98.7 ??F) 05/20/2024 2:18 PM ES T Respiratory Rate 17 05/20/2024 2:18 PM EST Oxygen Saturation 97% 05/20/2024 2:18 PM EST Inhaled Oxygen Concentration - - Weight - - Height - - Body Mass Index - - documented in this encounter Progress Notes * Desirae Cowan MD - 05/20/2024 2:20 PM EST SUBJECTIVE: Ross Navarrete is a 43 y.o. year old male who presents for Walk In [place] . Denies recent illness, injury, or hospitalization. Acute Concerns: Patient co perineal irritation an redness for 3d. He has dysuria and worsening perineal irritation after urination, neg urethral discharge. Social History Social History Narrative Not on file Patient Active Problem List Diagnosis Diabetic nephropathy [...] extremities Venous insufficiency of both lower extremities Family History Problem Relation Name Age of Onset Cancer Mother bladder Cancer Maternal Grandfather colon Review of Systems Constitutional: Negative for fever. HENT: Negative for congestion, ear pain, rhinorrhea and sore throat. Eyes: Negative for pain and discharge. Respiratory: Negative for cough and shortness of breath. Cardiovascular: Negative for chest pain. Gastrointestinal: Negative for abdominal pain, constipation, diarrhea and nausea. Endocrine: Negative for polydipsia. Genitourinary: Negative for dysuria and frequency. Musculoskeletal: Negative for arthralgias, back pain and neck pain. Skin: Positive for rash. Neurological: Negative for dizziness, numbness and headaches. Psychiatric/Behavioral: Negative for agitation. OBJECTIVE: Vitals: 05/20/24 1418 BP: (!) 158/94 Pulse: 97 Resp: 17 Temp: 98.7 ??F (37.1 ??C) SpO2: 97% Physical Exam Constitutional: Appearance: Normal appearance. HENT: Right Ear: Tympanic membrane and ear canal normal. Left Ear: Tympanic membrane and ear canal normal. Mouth/Throat: Mouth: Mucous membranes are moist. Pharynx: No oropharyngeal exudate or posterior oropharyngeal erythema. Eyes: Pupils: Pupils are equal, round, and reactive to light. Cardiovascular: Rate and Rhythm: Normal rate and regular rhythm. Heart sounds: No murmur heard. Pulmonary: Breath sounds: Normal breath sounds. No wheezing. Abdominal: General: Bowel sounds are normal. Palpations: Abdomen is soft. Tenderness: There is no abdominal tenderness. Genitourinary: Penis: Uncircumcised. No paraphimosis, erythema or discharge. Epididymis: Right: No tenderness. Left: Enlarged. Comments: No glans erythema or urethral discharge Perineal and inguinal erythema. There is a fissure on perineal area, not bleeding and other fissures on the scrotum, no erythema or discharge Musculoskeletal: General: No tenderness. Normal range of motion. Cervical back: Normal range of motion. No tenderness. Skin: General: Skin is warm. Neurological: General: No focal deficit present. Mental Status: He is alert and oriented to person, place, and time. Psychiatric: Mood and Affect: Mood normal. Office Visit on 05/20/2024 Component Date Value Ref Range Status Color, UA 05/20/2024 Yellow Final Clarity, UA 05/20/2024 Clear Final Glucose, UA 05/20/2024 Negative Final Bilirubin, UA 05/20/2024 Negative Final Ketones, UA 05/20/2024 Negative Final Spec Grav, UA 05/20/2024 1.030 Final Blood, UA 05/20/2024 Negative Negative, None Detected Final pH, UA 05/20/2024 5.5 Final Protein, UA 05/20/2024 Trace Final 300mg/dl Urobilinogen, UA 05/20/2024 0.2 Final Leukocytes, UA 05/20/2024 Negative Negative, Rare, Trace Final Nitrite, UA 05/20/2024 Negative Negative, None Detected Final Problem List Items Addressed This Visit Candidiasis of perineum - Primary Advised to wash perineal area with lukewarm water + baking soda, keep area dry and apply clotrimazole cream + Desitin bid Keep DM under control Relevant Orders POCT urinalysis dipstick manually resulted (Completed) Follow Up: Current Outpatient Medications on File Prior to Visit Medication Sig Dispense Refill Alcohol Swabs (Alcohol Prep) 70 % pads USE FOUR TIMES DAILY WITH INSULIN ammonium lactate (Amlactin) 12 % cream Apply topically if needed for dry skin. 385 g 0 atorvastatin (Lipitor) 10 MG tablet Take 1 tablet (10 mg) by mouth at bedtime. 90 tablet 3 beta carotene (vitamin A) 3 MG (54150 UT) capsule TAKE 2 CAPSULES BY MOUTH EVERY DAY FOR 2 WEEKS betamethasone valerate (Valisone) 0.1 % cream Apply topically if needed in the morning and at bedtime (dryness). 45 g 2 Blood Glucose Monitoring Suppl (CrimeReports Lite) w/Device kit TEST BLOOD SUGAR FOUR TIMES DAILY Blood Pressure Monitor kit 1 kit in the morning. 1 kit 0 Carafate 1 GM/10ML suspension TAKE 10MLS BY MOUTH 4 TIMES DAILY BEFORE MEALS/BEDTIME FOR REFLUX FOR4 WEEKS chlorhexidine (Peridex) 0.12 % solution Swish 15 mL morning and night for 1 minute. Spit, do not swallow. Do not eat or drink for 30 minutes following use. 473 mL 0 Continuous Glucose Dental Resident (FreeStyle Casey 2 [place]) device Scan sensor every 8 hours 1 each 0 Continuous Glucose Sensor (FreeStyle Casey 2 Sensor) [facility] Apply 1 sensor every 14 days 2 each 11 EPINEPHrine (Epipen) 0.3 MG/0.3ML injection syringe INJECT INTRAMUSCULARLY DIRECTED ON PACKAGE AND GO TO EMERGENCY ROOM 2 each 0 esomeprazole (NexIUM) [address] capsule Take 1 capsule (40 mg) by mouth before breakfast. Do not open capsule. 90 capsule 1 famotidine (Pepcid) 20 MG tablet Take 1 tablet twice daily as needed for acid reflux 40 tablet 0 FLUoxetine (PROzac) 40 MG capsule Take 1 capsule (40 mg) by mouth Once per day. 30 capsule 2 FREESTYLE LITE test strip TEST BLOOD SUGAR FOUR TIMES DAILY GaviLAX 17 GM/SCOOP powder TAKE DIRECTED BY MOUTH THE DAY BEFORE YOUR PROCEDURE. glucose (BD Glucose) 5 g chewable tablet Chew 3 tablets (15 g) if needed for low blood sugar. 50 tablet 5 glucose blood (FREESTYLE LITE) test strip check fingerstick 4 times a day glucose blood (FreeStyle Precision Lefty Test) test strip Use to test blood sugar 3 times daily 100 each 12 insulin glargine (Lantus SoloStar) 100 UNIT/ML pen INJECT 55 UNITS SUBCUTANEOUSLY EVERY NIGHT 15 mL2 Lidoderm 5 % patch APPLY 1 PATCH TOPICALLY DAILY LEAVE ON MOST PAINFUL AREA FOR UP TO 12 HRS lisinopril 20 MG tablet Take 1 tablet (20 mg) by mouth Once per day. 90 tablet 1 meloxicam (Mobic) 15 MG tablet TAKE 1 TABLET BY MOUTH EVERY DAY NEEDED FOR PAIN 30 tablet 3 metoclopramide (Reglan) 10 MG tablet 1 tablet as needed every 6 hrs for nausea/vomiting 40 tablet 0 naloxone (Narcan) 4 mg/0.1 mL nasal spray Administer 0.1 mL into affected nostril(s). semaglutide (Ozempic) 2 MG/1.5ML solution pen-injector 0.25 subcutaneous once weekly for 4 weeks, then increase to 0.5 mg once weekly 1 each 12 Suboxone 8-[address] 3 Film under the tongue Once per day for 28 days. 84 Film 0 Sure Comfort Pen Gilchrist 31G X 5 MM misc USE FOUR TIMES DAILY WITH INSULIN thiamine (Vitamin B-1) 50 MG tablet Take 50 mg by mouth in the morning. TRUEplus Lancets 33G misc TEST BLOOD SUGAR FOUR TIMES DAILY Vitron-C 65-125 MG tablet Take 1 tablet by mouth at bedtime. No current facility-administered medications on file prior to visit. documented in this encounter Miscellaneous Notes * Assessment & Plan Note - Desirae Cowan MD - 05/20/2024 3:25 PM EST Associated Problem(s): Candidiasis of perineum Advised to wash perineal area with lukewarm water + baking soda, keep area dry and apply clotrimazole cream + Desitin bid Keep DM under control documented in this encounter Plan of Treatment Upcoming Encounters Date Type Department Care Team (Late st Contact Info) Description 06/27/2024 11:15 AM EST Office Visit [facility] OPTOM[facility]RY [address] [place] [address] Kaitlyn Burk, OD [address] [place] [address] 06/27/2024 3:00 PM EST Office Visit [facility] MEDICINE [address] [place] [address] Rut Branham MD [address] [place] [address] 07/10/2024 2:00 PM EST Office Visit [facility] MED[facility] [address] [place] [address] Naheed Zaman ANP [address] [place] [address] 07/25/2024 3:00 PM EST Office Visit [facility] MED[facility] [address] [place] [address] Rut Branham MD [address] [place] [address] documented as of this encounter Procedures Procedure Name Priority Date/Time Associated Diagnosis Comments POCT URINALYSIS DIPSTICK Routine 05/20/2024 3:21 PM EST Candidiasis of perineum documented in this encounter Results * POCT urinalysis dipstick manually resulted (05/20/2024 3:21 PM EST) Color, UA Yellow Clarity, UA Clear Glucose, UA Negative Bilirubin, UA Negative Ketones, UA Negative Spec Grav, UA 1.030 Blood, UA Negative Negative, None Detected pH, UA 5.5 Protein, UA Trace Comment:300mg/dl Urobilinogen, UA 0.2 Leukocytes, UA Negative Negative, Rare, Trace Nitrite, UA Negative Negative, None Detected Urine 05/20/2024 3:21 PM EST Desirae Cowan MD POINT OF CARE TEST ENTER /EDIT ORDERABLES Final Result documented in this encounter Visit Diagnoses Diagnosis Candidiasis of perineum- Primary documented in this encounter Additional Health Concerns Assessment Noted Time PHQ-9 Depression Total Score: 25 024 8:12 AM EDT documented as of this encounter Care Teams Drywall Worker Relationship Specialty Start Date End Date Naheed Zaman ANP [address] [place] [address] PCP - General Family Medicine 01/18/22 documented as of this encounter
--- OUTSIDE RECORDS SUMMARY | 2024-06-18 16:13 | XMS_ITS | Encounter Summary ---
Author Organization [employer] Address [address] [facility] 7t [place] [address] Care Team Providers Care Functional Director Name Role Phone Naheed Zaman Primary Care Provider [phone] Reason for Visit * Reason Onset Date Comments callback requested 04/23/2024 Encounter Details Date Type Department Care Team ([facility] st Contact Info) Description 04/23/2024 Telephone [facility] MEDICINE [address] [place] [address] Naheed Zaman ANP [address] [place] [address] callback requested Social History Tobacco Use Types Packs/Day Years [...] encounter Miscellaneous Notes * Telephone Encounter - Chris Sherwood - 04/23/2024 11:54 AM EST Tc from pt returning call to Madie Wesley Callback number [phone] documented in this encounter Plan of Treatment Upcoming Encounters Date Type Department Care Team (Late st Contact Info) Description 06/27/2024 11:15 AM EST Office Visit [facility] OPTOMETRY [address] [place] [address] Kaitlyn Burk, KVNG [address] [place] [address] 06/27/2024 3:00 PM EST Office Visit [facility] MEDICINE [address] [place] [address] Rut Branham MD [address] [place] [address] 07/10/2024 2:00 PM EST Office Visit [facility] MEDICINE [address] [place] [address] Naheed Zaman ANP [address] [place] [address] 07/25/2024 3:00 PM EST Office Visit [facility] MEDICINE [address] [place], [place] [phone] Rut Brahnam MD [address] [place] [address] documented as of this encounter Visit Diagnoses Not on filedocumented in this encounter Additional Health Concerns Assessment Noted Time PHQ-9 Depression Total Score: 25 024 8:12 AM EDT documented as of this encounter Care Teams Functional Director Relationship Specialty Start Date End Date Naheed Zaman ANP [address] [place] [address] PCP - General Family Medicine 01/18/22 documented as of this encounter
--- OUTSIDE RECORDS SUMMARY | 2024-06-18 16:13 | XMS_ITS | Encounter Summary ---
Author Organization [employer] Address [address] [facility] 7t [place] [address] Care Team Providers Care Impression Printer Name Role Phone Naheed Zaman JOSIAH Primary Care Provider [phone] Encounter Details Date Type Department Care Team (Late Contact Info) Description 07/28/2022 Abstract [facility] ADULT DENTAL [address] [place], [place] [phone] Zay Schmidt DDS [address] [place] [address] Social History Tobacco Use Types Packs/Day Years [...] suspected to have Coronavirus/COVID-19? No / Unsure 07/28/2022 2:14 PM EST documented as of this encounter Plan of Treatment Upcoming Encounters Date Type Department Care Team (Late Contact Info) Description 06/27/2024 11:15 AM EST Office Visit [facility] OPTOM[facility]RY [address] [place], [place] [phone] Kaitlyn Burk, KVNG [address] [place] [address] 06/27/2024 3:00 PM EST Office Visit [address] [address] Rut Branham MD [address] [place] [address] 07/10/2024 2:00 PM EST Office Visit [address] [address] Naheed Zaman ANP [address] [place] [address] 07/25/2024 3:00 PM EST Office Visit [address] [address] Rut Branham MD [address] [place] [address] documented as of this encounter Visit Diagnoses Not on filedocumented in this encounter Care Teams Impression Printer Relationship Specialty Start Date End Date Naheed Zaman ANP [address] [place] [address] PCP - General Family Medicine 01/18/22 documented as of this encounter
--- OUTSIDE RECORDS SUMMARY | 2024-06-18 16:13 | XMS_ITS | Encounter Summary ---
Author Organization [employer] Address [address] [facility] 7t [place] [address] Care Team Providers Care Last Ironer Name Role Phone Naheed Zaman JOSIAH Primary Care Provider [phone] Encounter Details Date Type Department Care Team ([facility] st Contact Info) Description 06/04/2024 Orders Only GENERIC EXTERNAL DATA DEPARTMENT Provider, Generic External Data Social History Tobacco Use Types Packs/Day Years [...] Description 06/27/2024 11:15 AM EST Office Visit [facility] OPTOM[facility]RY [address] [place] [address] Kaitlyn Burk, OD [address] [place] [address] 06/27/2024 3:00 PM EST Office Visit [facility] MEDICINE [address] [place] [address] Rut Branham MD [address] [place] [address] 07/10/2024 2:00 PM EST Office Visit [facility] [address] [place] [address] Naheed Zaman ANP [address] [place] [address] 07/25/2024 3:00 PM EST Office Visit [facility] [address] [place] [address] Rut Branham MD [address] [place] [address] documented as of this encounter Procedures Procedure Name Priority Date/Time Associated Diagnosis Comments XR CERVICAL SPINE 3V Routine 06/04/2024 5:58 PM EST XR CHEST 1 VIEW Routine 06/04/2024 5:03 PM EST GLUCOSE, WHOLE BLOOD Routine 06/04/2024 4:40 PM EST HIGH SENSITIVITY TROPONIN I Routine 06/04/2024 11:28 AM EST CBC WITH AUTO DIFFERENTIAL Routine 06/04/2024 11:28 AM EST BASIC METABOLIC PANEL Routine 06/04/2024 11:28 AM EST documented in this encounter Results * XR CERVICAL SPINE 3V (06/04/2024 5:58 PM EST) Anatomical Region Laterality Modality Abdomen Radiographic Lupe ging 06/04/2024 5:58 PM EST Narrative 06/04/2024 6:00 PM EST ? [facility] ?[address] ?[place] [address] ?XRay Report ? Signed ? Patient: Ross Navarrete ?MR#: [id number] ?? 613 ? : 1980 ?Acct:[id number] ? Age/Sex: 43 / M ?ADM Date: 06/04/24 ? Loc: HO.ED ? Attending Dr: ? Ordering Physician: Alexey Fabian ?? Date of Service: 06/04/24 ?? Procedure(s): XR cervical spine 3V ?? Accession Number(s): [id number] ? cc: [facility]; Alexey Fabian ? CLINICAL HISTORY: neck pain [...] in OV> ? 06/04/24 1759 ? DD/ ? TD/TT: 06/04/24 1758 ? Pharmacology Associate: ? Procedure Note Donsaurabhhugo, Image - 06/04/[address] [address] XRay Report Signed Patient: Ross Navarrete LMR#: [id number] : 1980Acct:[id number] Age/Sex: 43 / MADM Date: 06/04/24 Loc: HO.ED Attending Dr: Ordering Physician: Alexey Fabian Date of Service: 06/04/24 Procedure(s): XR cervical spine 3V Accession Number(s): [id number] cc: [facility]; Alexey Fabian CLINICAL HISTORY: neck pain to [...] signed by Brenna Bush MD in OV> 06/04/241758 DD/ 57 TD/TT: 06/04/241757 Pharmacology Associate: us [facility] External Provider IMG XR PROCEDURES Final Result * XR Chest 1 View (06/04/2024 5:03 PM EST) Anatomical Region Laterality Modality Chest Radiographic Lupe ging 06/04/2024 5:03 PM EST Narrative 06/04/2024 5:05 PM EST ? [facility] ?[address] ?[place] [address] ?XRay Report ? Signed ? Patient: Navarrete,Ross L ?MR#: [id number] ?? 613 ? : 1980 ?Acct:[id number] ? Age/Sex: 43 / M ?ADM Date: 06/04/24 ? Loc: HO.ED ? Attending Dr: ? Ordering Physician: Curt Soto ?? Date of Service: 06/04/24 ?? Procedure(s): XR chest 1V ?? Accession Number(s): [id number] ? cc: Curt Soto; [facility] ? CLINICAL HISTORY: Chest pain ? 1 [...] by Taty Rodriguez MD in OV> ? 06/04/24 1705 ? DD/ 1703 ? TD/TT: 06/04/24 1703 ? Pharmacology Associate: ? Procedure Note Roseanne, Maria T - 06/04/2024 [place] [address] XRay Report Signed Patient: Ross Navarrete LMR#: [id number] 613 : 1980Acct:[id number] Age/Sex: 43 / MADM Date: 06/04/24 Loc: HO.ED Attending Dr: Ordering Physician: Curt Soto Date of Service: 06/04/24 Procedure(s): XR chest 1V Accession Number(s): [id number] cc: Curt Soto; [facility] CLINICAL HISTORY: Chest pain 1 view chest [...] in OV> 06/04/241704 DD/ 02 TD/TT: 06/04/241702 Pharmacology Associate: [facility] External Provider IMG XR PROCEDURES Final Result * Glucose, Whole Blood (06/04/2024 4:40 PM EST) Glucose, Whole Blood 106 60 - 115 mg/dL [facility] Comment:METER #: [id number] 06/04/2024 4:40 PM EST 06/04/2024 4:43 PM EST Generic External Data Provider LAB BLOOD ORDERAB LES Final Result Performing Organization Address [facility] Co de Phone Number [facility] [address] [place] [phone] * High Sensitivity Troponin I (06/04/2024 11:28 AM EST) Pathologist [facility] TROPONIN I HIGH SENSITIVITY <2.7 <3.5 - 35.0 ng/L [facility] Comment:The Jordan high sens itivity Troponin-I results should beused in conjunction with other diagnostic information suchas ECG, clinical observations and information, and patientsymptoms to aid in the diagnosis of MO. 06/04/2024 11:2 8 AM EST 06/04/2024 11:56 AM EST Generic External Data Provider LAB BLOOD ORDERAB LES Final Result Performing Organization Address [facility] Co de Phone Number [facility] [address] [place] [phone] * (ABNORMAL) Basic Metabolic Panel (06/04/2024 11:28 AM EST) Pathologist [facility] Sodium 138 135 - 145 mmol/L [facility] Potassium 4.2 3.3 - 5.1 mmol/L [facility] Chloride 105 96 - 108 mmol/L [facility] Carbon Dioxide 28 22 - 29 mmol/L [facility] Anion Gap 9(L) 12 - 20 [facility] Urea Nitrogen (BUN) 17(H) 9 - 16 mg/dL [facility] Creatinine, Serum 0.98 0.5 - 1.4 mg/dL [facility] Creatinine Clr Calc Pharmacy 150.8 [facility] Comment:eGFR (calculated fro m the MDRD study equation) and eCrCl(calculated from the Cockcroft-Gault equation) are based ondifferent parameters and may not yield comparable results.If eCrCl result is absurd, please check patient'sheight/weight. Estimated Glomerular Filt Rate >60 [facility] Comment:Chronic Kidney Disea se: Estimated GFR < 60 mL/min/1.12m7Liopud Kidney Disease: Estimated GFR < 15 mL/min/1.73m2 Glucose 130(H) 60 - 115 mg/dL [facility] Calcium 9.3 8.4 - 10.2 mg/dL [facility] 06/04/2024 11:2 8 AM EST 06/04/2024 11:56 AM EST us Generic External Data Provider LAB BLOOD ORDERAB LES Final Result [facility] [address] [place], [place] [phone] * (ABNORMAL) CBC auto differential (06/04/2024 11:28 AM EST) White Blood Count 8.1 4.8 - 10.8 X10*3/uL [facility] Red Blood Count 4.34(L) 4.60 - 5.80 X10*6/uL [facility] Hemoglobin 12.2(L) 14.0 - 18.0 g/dl [facility] Hematocrit 36.6(L) 42.0 - 52.0 % [facility] Mean Corpuscular Volume 84.3 80.0 - 98.0 fL [facility] Mean Corpuscular Hemoglobin 28.1 27.0 - 33.0 pg [facility] Mean Corpuscular HGB Conc 33.3 31.0 - 36.0 g/dl [facility] Red Cell Distribution Width 13.0 11.0 - 16.0 % [facility] Platelet Count 118(L) 160 - 400 X10*3/uL [facility] Mean Platelet Volume 12.5(H) 9.4 - 12.4 fL [facility] Neutrophils Percent Auto 71.6 45 - 73 % [facility] Imm Gran Pct Auto 0.7(H) 0.0 - 0.4 % [facility] Lymphocytes Percent Auto 18.5(L) 20 - 40 % [facility] Monocytes Percent Auto 7.3 2 - 11 % [facility] Eosinophils Percent Auto 1.5 0 - 4 % [facility] Basophils Percent Auto 0.4 0 - 2 % [facility] NRBC Pct Auto 0.0 0.0 - 0.2 /100WBC [facility] Neutrophils Absolute Auto 5.8 2.0 - 8.3 x10*3/uL [facility] Imm Gran Abs Auto 0.06(H) 0.00 - 0.03 X10*3/uL [facility] Lymphocytes Absolute Auto 1.5 1.2 - 4.9 X10*3/uL [facility] Monocytes Absolute Auto 0.6 0.1 - 1.2 X10*3/uL [facility] Eosinophils Absolute Auto 0.1 0.0 - 0.4 X10*3/uL [facility] Basophils Absolute Auto 0.0 0.0 - 0.2 X10*3/uL [facility] NRBC Abs Auto 0.000 0.0 - 0.012 X10*3/uL [facility] 06/04/2024 11:2 8 AM EST 06/04/2024 11:56 AM EST us Generic External Data Provider LAB BLOOD ORDERAB LES Final Result [facility] [address] [place] [address] [phone] documented in this encounter Visit Diagnoses Not on filedocumented in this encounter Additional Health Concerns Assessment Noted Time PHQ-9 Depression Total Score: 25 024 8:12 AM EDT documented as of this encounter Care Teams Last Ironer Relationship Specialty Start Date End Date Naheed Zaman ANP [address] [place] [address] PCP - General Family Medicine 01/18/22 documented as of this encounter
--- OUTSIDE RECORDS SUMMARY | 2024-06-18 16:13 | XMS_ITS | Encounter Summary ---
Author Organization [employer] [facility] Address [address] [place] [address], [place] [address] Care Team Providers Care Statistician Name Role Phone Zaman Naheed RAHMAN Primary Care Provider [phone] Reason for Visit * Reason Comments Med Refill Encounter Details Date Type Department Care Team (Late st Contact Info) Description 02/02/2023 Refill [facility] MEDICINE [address] [place] [address] Rut Branham MD [address] [place] [address] Uncomplicated opioid dependence (CMS/HCC) Social History Tobacco Use Types Packs/Day Years Used Date Smoking Tobacco: Never Passive Smoke Exposure: Never Smokeless Tobacco: Never Alcohol Use Standard Drinks/Week Comments Never 0 (1 standard drink = 0.6 oz pur e alcohol) Depression Answer Date Recorded Patient Health Questionnaire-9 Score 6 11/18/2022 Depression Answer Date Recorded Patient Health Questionnaire-2 Score 0 11/18/2022 Sex and Gender Information Value Date Recorded Sex Assigned at Male 03/28/2022 10:21 AM EDT Legal Sex Male 10:21 AM EDT Gender Identity Male 03/28/2022 10:21 AM EDT Sexual Orientation Straight 03/28/2022 10 :21 AM EDT documented as of this encounter Plan of Treatment Upcoming Encounters Date Type Department Care Team (Late st Contact Info) Description 06/27/2024 11:15 AM EST Office Visit [facility] OPT[facility] [address] [place] [address] Kaitlyn Burk OD [address] [place] [address] 06/27/2024 3:00 PM EST Office Visit [address] [address] Rut Branham MD [address] [place] [address] 07/10/2024 2:00 PM EST Office Visit [address] [address] Naheed Zaman ANP [address] [place] [address] 07/25/2024 3:00 PM EST Office Visit [address] [address] Rut Branham MD [address] [place] [address] documented as of this encounter Visit Diagnoses Diagnosis Uncomplicated opioid dependence (CMS/HCC) documented in this encounter Additional Health Concerns Assessment Noted Time PHQ-9 Depression Total Score: 6 11/19/19 23 3:29 PM EDT documented as of this encounter Care Teams Statistician Relationship Specialty Start Date End Date Naheed Zaman ANP [address] [place] [address] PCP - General Family Medicine 01/18/22 documented as of this encounter
--- OUTSIDE RECORDS SUMMARY | 2024-06-18 16:13 | XMS_ITS | Encounter Summary ---
Author Organization [employer] Address [address] [facility] 7t [place] [address] Care Team Providers Care Elementary Esl Teacher Name Role Phone Naheed Zaman Primary Care Provider [phone] Reason for Visit * Reason Comments Med Refill Encounter Details Date Type Department Care Team ([facility] st Contact Info) Description 05/23/2024 Refill [facility] MED[facility] [address] [place], [place] [phone] Naheed Zaman ANP [address] [place] [address] Severe episode of recurrent major depressive disorder, [...] the past 12 months, has t he [employer] gas, oil or water company threatened to [...] Description 06/27/2024 11:15 AM EST Office Visit [facility] OPT[facility] [address] [place] [address] Kaitlyn uBrk, KVNG [address] [place] [address] 06/27/2024 3:00 PM EST Office Visit [facility] MED[facility] [address] [place] [address] Rut Branham MD [address] [place] [address] 07/10/2024 2:00 PM EST Office Visit [facility] MED[facility] [address] [place] [address] Naheed Zaman ANP [address] [place] [address] 07/25/2024 3:00 PM EST Office Visit [facility] [address] [place] [address] Rut Branham MD [address] [place] [address] documented as of this encounter Visit Diagnoses Diagnosis Severe episode of recurrent major depressive disorder, without psychotic features (CMS/HCC) documented in this encounter Additional Health Concerns Assessment Noted Time PHQ-9 Depression Total Score: 25 024 8:12 AM EDT documented as of this encounter Care Teams Elementary Esl Teacher Relationship Specialty Start Date End Date Naheed Zaman ANP [address] [place] [address] PCP - General Family Medicine 01/18/22 documented as of this encounter
== END 2024-06-18 14:38 | disposition home or self-care (01) ==
LOC: HO.PMCPRC 14:11
PROVIDERS: PCP Nurse Practitioner Primary Care; Visit Provider Anesthesiology
DX: M19.012 Primary osteoarthritis, left shoulder (principal)
CPT/HCPCS: 20610; 77002

== ENCOUNTER 2024-07-01 14:27 | Outpatient (AMB) | payer MEDICAID, SELFPAY ==
--- NOTE | 2024-07-01 14:55 | A.OFFVIS_ITS ---
Vital Signs 07/01/24 14:56 Height 5 ft 6 in Weight 389 lb BMI 62.8 BP 181/77 H Blood Pressure Location Lt radial Position Sitting Respiration 16 Pulse 73 Pulse Source Pulse Oximeter Pulse Oximetry (%) 98 Oxygen Delivery Method Room Air Intake Visit Reasons: LEFT SHOULDER INJECTION Skeiner Required: No Allergies seafood Allergy (Severe, Verified 07/01/24 14:57) Swelling Medication List - Last Reconciled 07/01/24 by Judi Nagy LPN acetaminophen (Acetaminophen Extra Strength) 500 mg PO Q6H PRN adalimumab (Humira(CF) Pen) 40 mg (0.4 mL) subcut Q2W ammonium lactate 12% topical ammonium lactate 12% appl topical betamethasone valerate 0.1% appl topical buprenorphine-naloxone 8-2 mg (Suboxone) 1 film sublingual TID cholecalciferol (vitamin D3) 1,250 mcg PO QWEEK 3 months clotrimazole 1% appl topical BID flash glucose sensor (FreeStyle Casey 2 Sensor kit) As directed fluoxetine 40 mg PO DAILY gabapentin 100 mg PO BEDTIME insulin glargine (Lantus Solostar U-100 Insulin) 55 units subcut BEDTIME insulin lispro (Humalog KwikPen (U-100) Insulin) 35 units subcut TID lidocaine 5% (Lidoderm) 1 patch topical DAILY PRN lidocaine 5% 1 patch topical DAILY PRN lisinopril 20 mg See Protocol PO DAILY meloxicam 15 mg PO DAILY 30 days sodium,potassium,mag sulfates 17.5-3.13-1.6 gram (Suprep Bowel Prep Kit) DILUTE as per instructions given zinc oxide 40% (Diaper Rash) topical HPI Comments Details: Mr. Navarrete is back in my office after 3rd therapeutic intra-articular shoulder injection. Unlike 1st 2 injections the 3rd 1 was not as effective. He reports that at rest he does not feel pain in the left shoulder, however when he starts to move his left arm he feels pain increasing. Unfortunately with this morbidly obese, diabetic and arthritic patient progression of the arthritis is inevitable. Currently I believe his metabolic issues are the foreground. I am not sure if continuous injections would have any benefit for this patient. I will send him for the orthopedic surgery consult, he is a patient of orthopedic surgery office however never addressed the issue of the shoulder pain with orthopedic surgery. Prior:? complaining on the pain in the left shoulder.? He reports that this pain was bothering him for many years but it was mild.? Two months ago the pain became severe.? He went for Orthopedic surgery office and Was recommended to have intra-articular shoulder steroid injection.? On the x-ray it was become demonstrating a loose body inside of his shoulder joint.? The dictation of the x-rays as below.? 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 For pain control he is taking meloxicam.? He never was a subject of physical therapy.? He had x-ray as dictated below [facility] Medical History Seronegative spondyloarthropathy Seronegative spondylitis Vitamin D deficiency Elevated C-reactive protein (CRP) Fibromyalgia Polyarthralgia Narcotic dependence Thrombocytopenia Carpal tunnel syndrome Sleep apnea Pre-op evaluation Hx of migraines BETSY on CPAP Pre-op evaluation HTN (hypertension), benign Insulin dependent type 1 diabetes mellitus Morbid obesity Shoulder dislocation Diabetes Surgical History Hx of colonoscopy History of esophagogastroduodenoscopy (EGD) Hx of hernia repair Hx of appendectomy Family History Mother No problems noted. Brother No problems noted. Daughter No problems noted. Daughter No problems noted. Daughter No problems noted. Son No problems noted. Son No problems noted. 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 Review of Systems Const All systems reviewed & are unremarkable except as noted in HPI and below ENT Reports Normal hearing present Neuro Reports Normal hearing present and Denies confusion Psych Denies confusion Physical Exam Vital Signs: Last Vital Signs Pulse 73 07/01/24 14:56 Resp 16 07/01/24 14:56 BP 181/77 H 07/01/24 14:56 Pulse Ox 98 07/01/24 14:56 Oxygen Delivery Method Room Air 07/01/24 14:56 BMI result Body Mass Index 62.8 Const General: No confusion Orientation/consciousness: No confusion HEENT Head: Yes normal to inspection, Yes normocephalic and Yes atraumatic Eyes General: appearance normal, both eyes and all related structures Resp Effort & Inspection: normal respiratory effort and able to speak in complete sentences Cardio Rate: regular rate Peripheral pulses: Peripheral pulses 2+ throughout GI Palpation (GI): Soft to palpation Skin Lesions: no lesions Rashes: no rashes Neuro General: No confusion Cranial nerves: Yes Normal hearing present Extrem Other: Left shoulder: Able to forward flexion to 25 degrees. Abduction to 25 degrees. E xternal to neutral with little motion. Unable to do any further testing due to pain and limited ROM. Assessment & Plan Assessment & Plan (1) Osteoarthritis of left shoulder: Code(s): M19.012 - Primary osteoarthritis, left shoulder Category: Medical Plan: (2) Morbid obesity: Code(s): E66.01 - Morbid (severe) obesity due to excess calories Category: Medical (3) Left shoulder pain: Code(s): M25.512 - Pain in left shoulder Category: Medical Plan The 3rd intra-articular shoulder injection was not as effective as the 1st 2 injections in the left shoulder joint. He never was examined by Orthopedic surgeon office for his left shoulder pain. We will send him for the consult with orthopedic surgery. Next appointment with me in 2 months. We will be discussing neuromodulation to treat his left shoulder pain. Orders: Referrals Orthopedics Referral M25.512 - Pain in left shoulder Coding Level of Care Code Est Pt Level 3 (77701) Diagnoses Osteoarthritis of left shoulder M19.012 Morbid obesity E66.01 Left shoulder pain M25.512
[2024-07-01 14:56] VITALS: BP 181/77; PULSE 73; RESP 16; O2SAT 98; BMI 62.8
--- OUTSIDE RECORDS SUMMARY | 2024-07-01 16:06 | XMS_ITS | Encounter Summary ---
Author Organization [email or web address] [facility] Address [address] [place] [address] [address] [place] [address] Care Team Providers Care Calender Runner Name Role Phone Naheed Zaman Primary Care Provider [phone] Encounter Details Date Type Department Care Team (Latest Contact Info) Description 12/29/2021 Abstract [facility] CONVERSIONS Dental, Provider, DDS Social History Tobacco [...] Department Care Team ( Contact Info) Description 07/10/2024 2:00 PM EST Office Visit [facility] MEDICINE [address] [place] [address] Naheed Zaman ANP [address] [place] [address] 07/25/2024 3:00 PM EST Office Visit [facility] MEDICINE [address] [place] [address] Rut Branham MD [address] [place] [address] 07/30/2024 9:00 AM EST Office Visit [facility] ADULT DENTAL [address] [place] [address] Zay Schmidt DDS 230 [place] [address] documented as of this encounter Visit Diagnoses Not on filedocumented in this encounter Care Teams Calender Runner Relationship Specialty Start Date End Date Naheed Zaman ANP [address] [place] [address] PCP - General Family Medicine 01/18/22 documented as of this encounter
--- OUTSIDE RECORDS SUMMARY | 2024-07-01 16:06 | XMS_ITS | Encounter Summary ---
Author Organization [employer] Address [address] [facility] 7t [place] [address] Care Team Providers Care Skiver Heel Tap Name Role Phone Naheed Zaman Primary Care Provider [phone] Reason for Visit * Reason Comments Med Refill Encounter Details Date Type Department Care Team ([facility] st Contact Info) Description 08/18/2023 Refill [facility] MEDICINE [address] [place], [place] [phone] Naheed Zaman ANP [address] [place] [address] Chronic low back pain without sciatica, unspecified [...] Care Team (Late st Contact Info) Description 07/10/2024 2:00 PM EST Office Visit [facility] MEDICINE [address] [place] [phone] Naheed Zaman ANP [address] [place] [address] 07/25/2024 3:00 PM EST Office Visit [facility] MED[facility]INE [address] [place] [phone] Rut Branham MD 230 [place] [address] 07/30/2024 9:00 AM EST Office Visit [facility] ADULT DENTAL [address] [place] [phone] Zay Schmidt DDS [address] [place] [address] documented as of this encounter Visit Diagnoses Diagnosis Chronic low back pain without sciatica, unspecified back pain laterality documented in this encounter Additional Health Concerns Assessment Noted Time PHQ-9 Depression Total Score: 6 11/19/19 23 3:29 PM EDT documented as of this encounter Care Teams Skiver Heel Tap Relationship Specialty Start Date End Date Naheed Zaman ANP [address] [place] [address] PCP - General Family Medicine 01/18/22 documented as of this encounter
--- OUTSIDE RECORDS SUMMARY | 2024-07-01 16:06 | XMS_ITS | Clinical Summary ---
Author Organization [facility] Address [address] [place] [address] Care Team Providers Care Snaker Tractor Driver Name Role Phone Unavailable Primary Care Provider Unavailabl e Source Comments PLEASE NOTE, if this patient is a minor, it may be UNLAWFUL to discuss sensitive information that is contained in these records (such as FAMILY PLANNING, MENTAL HEALTH or SUBSTANCE ABUSE) with the minor patient's parent or other person without the patient's specific authorization.JEANNETTE Active Problems Problem Noted Date Diagnosed Date Severe episode of recurrent major depressive disorder, with psychotic features ([facility]) 06/10/2024 Assessment & Plan (06/18/2024 11:18 AM EST): Patient refused to be seen, [place] produce team member was notified. Assessment & Plan (06/10/2024 5:36 PM EST): Assessment: Patient presents with severe depressive symptoms, including persistent sadness, crying, lack of interest in activities, CAH and suicidal ideation. Patient reports constant thoughts of self-harm and has expressed a desire to . He has also mentioned plans to obtain money for his . - Plan: - Initiate a psychiatric crisis intervention team to assess the patient's safety and determine the need for hospitalization. - If the patient remains at home, consider starting or adjusting antidepressant medication/ antipsychotic - Schedule a follow-up appointment within one week to monitor the patient's progress and response to treatment. Suicidal Ideation - Assessment: Patient reports constant thoughts of self-harm and has expressed a desire to . He has also mentioned plans to obtain money for his . Patient stated that if sent to the hospital, he would hang himself. - Plan: - Ensure patient safety by involving the crisis intervention team and police. - Provider stay connected on video call until arrival of [place] Police with recommendation to section patient to hospital Encounters Date Type Department Care Team Description 05/23/2024 11:30 AM EST Behavioral Health Visit [facility] [address] [place] [phone] Leslie Garzon APRN Severe episode of recurrent major depressive disorder, with psychotic features (HCC-CMS) (Primary Dx) 05/16/2024 3:00 PM EST Behavioral Health Visit [facility] [address] [place] [phone] Leslie Garzon APRN Severe episode of recurrent major depressive disorder, with psychotic features (HCC-CMS) (Primary Dx) from Last 3 Months Family History Medical History Relation Name Comments No Known Problems Father Mental illness Mother Relation Name Status Comments Father Mother Social History Tobacco Use Types Packs/Day Years Used Date Smoking Tobacco: Some Days Cigarettes Smokeless Tobacco: Never Tobacco Cessation:Ready to Q uit: Yes; Counseling Given: Not Answered Alcohol Use Standard Drinks/Week Comments Not Currently [...] AM PST Sexual Orientation Not on file Plan of Treatment Health Maintenance Due Date Last Done Comments Depression Monitoring 1980 Tobacco Cessation Counseling (#1) 1981 Hypertension Screening (#1) 11/14/1999 Imm-Pneumococcal (1 of 2 - PCV) 2000 Imm-Hepatitis B (2 of 3 - 19 + 3-dose series) 11/14/2023 10/17/2023 [id number] ( season) 2024 021, 12/10/2020 Imm-Influenza (#1) 2024 02/27/2012, 01/27/2011 Alcohol and Drug Screen 05/29/2024 Diabetes Screening 04/24/2025 04/24/2024, 0 10/11/2023, 12/14/2021, Additional history exists Lipid Screening 04/24/2029 04/24/2024, 05/29, 02/27/2020 Imm-DTaP/Tdap/Td (3 - Td or Tdap) 10/16/2033 024, 03/15/2011 Hepatitis C Screening Completed 10/11/2023 HIV Screening Completed 12/13/2023, 11/26, 12/16/2021 Insurance [facility] [place] MEDICAID
--- OUTSIDE RECORDS SUMMARY | 2024-07-01 16:07 | XMS_ITS | Encounter Summary ---
Author Organization [facility] Address [address] [place] [address] [address] Care Team Providers Care Grape Crusher Name Role Phone Naheed Zaman Primary Care Provider [phone] Reason for Visit * Reason Comments Med Refill Encounter Details Date Type Department Care Team (Late st Contact Info) Description 02/02/2023 Refill [facility] MEDICINE [address] [place], [place] [phone] Rut Branham MD [address] [place] [address] Uncomplicated opioid dependence (CMS/HCC) Social History Tobacco [...] Description 07/10/2024 2:00 PM EST Office Visit [facility] MEDICINE [address] [place] [address] Naheed Zaman ANP 230 [place] [address] 07/25/2024 3:00 PM EST Office Visit [facility] MEDICINE [address] [place] [address] Rut Branham MD 230 [place] [address] 07/30/2024 9:00 AM EST Office Visit [facility] ADULT DENTAL [address] [place], [place] [phone] Zay Schmidt DDS 230 [place], [place] [phone] documented as of this encounter Visit Diagnoses Diagnosis Uncomplicated opioid dependence (CMS/HCC) documented in this encounter Additional Health Concerns Assessment Noted Time PHQ-9 Depression Total Score: 6 11/19/19 23 3:29 PM EDT documented as of this encounter Care Teams Grape Crusher Relationship Specialty Start Date End Date Naheed Zaman ANP [address] [place] [phone] PCP - General Family Medicine 01/18/22 documented as of this encounter
--- OUTSIDE RECORDS SUMMARY | 2024-07-01 16:07 | XMS_ITS | Encounter Summary ---
Author Organization [employer] Address [address] [facility] 7t [place] [address] Care Team Providers Care Supervisor Molding Name Role Phone Naheed Zaman Primary Care Provider [phone] Encounter Details Date Type Department Care Team ([facility] st Contact Info) Description 06/07/2024 Telephone [facility] MEDICINE [address] [place] [address] Naheed Zaman ANP 230 [place] [address] Social History Tobacco Use Types Packs/Day Years [...] Description 07/10/2024 2:00 PM EST Office Visit [facility] MEDICINE [address] [place] [address] Naheed Zaman ANP 230 [place] [address] 07/25/2024 3:00 PM EST Office Visit [facility] MEDICINE [address] [place] [address] Rut Branham MD 230 [place] [address] 07/30/2024 9:00 AM EST Office Visit [facility] ADULT DENTAL [address] [place] [phone] Zay Schmidt DDS [address] [place] [address] documented as of this encounter Visit Diagnoses Not on filedocumented in this encounter Additional Health Concerns Assessment Noted Time PHQ-9 Depression Total Score: 25 024 8:12 AM EDT documented as of this encounter Care Teams Supervisor Molding Relationship Specialty Start Date End Date Naheed Zaman ANP [address] [place] [address] PCP - General Family Medicine 01/18/22 documented as of this encounter
--- OUTSIDE RECORDS SUMMARY | 2024-07-01 16:07 | XMS_ITS | Encounter Summary ---
Author Organization [employer] Address [address] [facility] 7t [place] [address] Care Team Providers Care Roster Clerk Name Role Phone Naheed Zaman Primary Care Provider [phone] Reason for Visit * Reason Comments OBAT Encounter Details Date Type Department Care Team (Latest Contact Info) Description 06/27/2024 10:30 AM EST Clinical Support [facility] MEDICINE 230 [place] [address] Tristen Chen, APRIL [address] [place] [address] Opioid type dependence, continuous (CMS/HCC) (Primary Dx) Social History Tobacco Use Types [...] as of this encounter Progress Notes * Tristen Chen RN - 06/27/2024 10:30 AM EST Patient here today for Opioid Dependence Patient on current Suboxone dose of 24/6 mg on an 8 week schedule. Pt has been in the program for 2 year 6 months. Induction date: 12/16/21. LFTs done 05/16/24. Patient enrolled in [facility]. RAMONE GAY reviewed by provider. Last PCP appt 03/29/24, next 07/10/24. LAST VISIT 05/30/24 POS:BUP,THC NEG:FEN Subjective Patient ID: Ross Navarrete [...] was admitted to the psych unit at [facility] for 2-3 days. He says that he didn'tget any treatment or medication while there, and he feels like this made his situation worse. (I'm unable to find any notes from the telepsychiatry visit or [facility] inpatient admission) Denies active suicidal thoughts. States that he wants to continue looking for a psychiatrist, but wants someone who understands him culturally and linguistically. He is following with [facility]. TODAY 06/27/24 +bup, thc Ross reports everything is fine with Suboxone. Still struggling with everything else . Awaiting new psych appt with [facility] provider 07/16/24. Declines to see [facility] today. Having dental issues, next appt in July. Requesting to go back to 8 week visits, will change after next appt. Plan: Suboxone dosing schedule of 24/6 mg daily and management of side effects reviewed. Recovery support, harm reduction (including Narcan), and behavioral health attendance reviewed. Appointment for 4 weeks given. Patient expressed understanding and agreement with continuing plan of care. This information has been disclosed to [...] Description 07/10/2024 2:00 PM EST Office Visit [facility] MEDICINE [address] [place] [phone] Naheed Zaman ANP [address] [place] [address] 07/25/2024 3:00 PM EST Office Visit [facility] MEDICINE [address] [place] [phone] Rut Branham MD 230 [place] [address] 07/30/2024 9:00 AM EST Office Visit [facility] ADULT DENTAL [address] [place], [place] [phone] KadenZay cespedes DDS [address] [place] [address] documented as of this encounter Procedures Procedure Name Priority Date/Time Associated Diagnosis Comments POCT RAMSES-14 URINE DRUG SCREEN Routine 06/27/2024 11:51 AM EST Opioid type dependence, continuous (CMS/HCC) documented in this encounter Results * POCT RAMSES-14 Urine Drug Screen (06/27/2024 11:51 AM EST) THC Positive Cocaine Screen, Urine Negative [...] obtained by clean catch procedure / Unknown 06/27/2024 11:51 AM EST Rut Branham MD POINT OF CARE TEST ENTER/YI T ORDERABLES Final Result documented in this encounter Visit Diagnoses Diagnosis Opioid type dependence, continuous (CMS/HCC)- Primary Opioid type dependence, continuous documented in this encounter Additional Health Concerns Assessment Noted Time PHQ-9 Depression Total Score: 25 024 8:12 AM EDT documented as of this encounter Care Teams Roster Clerk Relationship Specialty Start Date End Date Naheed Zaman ANP 230 [place] [address] PCP - General Family Medicine 01/18/22 documented as of this encounter
--- OUTSIDE RECORDS SUMMARY | 2024-07-01 16:07 | XMS_ITS | Encounter Summary ---
Author Organization [employer] Address [address] [facility] 7t [place] [address] Care Team Providers Care Teacher Cclc Name Role Phone Naheed Zaman JOSIAH Primary Care Provider [phone] Encounter Details Date Type Department Care Team (Latest Contact Info) Description 06/27/2024 Travel Social History Tobacco Use Types Packs/Day [...] Description 07/10/2024 2:00 PM EST Office Visit [facility] MEDICINE [address] [place] [address] Naheed Zaman ANP 230 [place] [address] 07/25/2024 3:00 PM EST Office Visit [facility] MEDICINE [address] [place] [address] Rut Branham MD 230 [place] [address] 07/30/2024 9:00 AM EST Office Visit [facility] ADULT DENTAL [address] [place] [address] Zay Schmidt DDS 230 [place] [address] documented as of this encounter Visit Diagnoses Not on filedocumented in this encounter Additional Health Concerns Assessment Noted Time PHQ-9 Depression Total Score: 25 024 8:12 AM EDT documented as of this encounter Care Teams Teacher Cclc Relationship Specialty Start Date End Date Naheed Zaman ANP [address] [place] [address] PCP - General Family Medicine 01/18/22 documented as of this encounter
--- OUTSIDE RECORDS SUMMARY | 2024-07-01 16:07 | XMS_ITS | Encounter Summary ---
Author Organization [employer] Address [address] [facility] 7t [place] [address] Care Team Providers Care Block Sawyer Name Role Phone Naheed Zaman JOSIAH Primary Care Provider [phone] Encounter Details Date Type Department Care Team ([facility] st Contact Info) Description 06/04/2024 Orders Only [...] Description 07/10/2024 2:00 PM EST Office Visit [facility] MEDICINE [address] [place] [address] Naheed Zaman ANP 230 [place] [address] 07/25/2024 3:00 PM EST Office Visit [facility] MEDICINE [address] [place] [address] Rut Branham MD 230 [place] [address] 07/30/2024 9:00 AM EST Office Visit [facility] ADULT DENTAL [address] [place] [address] Zay Schmidt DDS [address] [place] [address] documented as of this encounter Procedures Procedure [...] EST Narrative 06/04/2024 6:00 PM EST ? [facility] ?[address] ?[place] [address] ?XRay Report ? Signed ? Patient: Ross Navarrete ?MR#: [id number] ?? [id number] ? : 1980 ?Acct:[id number] ? Age/Sex: 43 / M ?ADM Date: 06/04/24 ? Loc: HO.ED ? Attending Dr: ? Ordering Physician: Alexey Fabian ?? Date of Service: 06/04/24 ?? Procedure(s): XR cervical spine 3V ?? Accession Number(s): [id number] ? cc: [facility]; Alexey Fabian ? CLINICAL HISTORY: neck pain [...] 06/04/24 1759 ? DD/ 1758 ? TD/TT: 06/04/24 1758 ? Eyeglass Lens Cutter: ? Procedure Note Roseanne, Image - 06/04/2024 [facility] [address] [place] [address] XRay Report Signed Patient: Ross Navarrete LMR#: [id number] : 1980Acct:[id number] Age/Sex: 43 / MADM Date: 06/04/24 Loc: HO.ED Attending Dr: Ordering Physician: lAexey Fabian Date of Service: 06/04/24 Procedure(s): XR cervical spine 3V Accession Number(s): [id number] cc: [facility]; Alexey Fabian CLINICAL HISTORY: neck pain to [...] MD Signed By: <Electronically signed by Brenna Bsuh MD in OV> 06/04/241758 DD/ 57 TD/TT: 06/04/241757 Eyeglass Lens Cutter: [facility] External Provider IMG XR PROCEDURES Final Result * XR Chest 1 View (06/04/2024 5:03 PM EST) Anatomical Region Laterality Modality Chest Radiographic Lupe ging 06/04/2024 5:03 PM EST Narrative 06/04/2024 5:05 PM EST ? [facility] ?[address] ?[place] [address] ?XRay Report ? Signed ? Patient: Navarrete,Ross L ?MR#: [id number] ?? [id number] ? : 1980 ?Acct:[id number] ? Age/Sex: 43 / M ?ADM Date: /07/25 ? Loc: HO.ED ? Attending Dr: ? Ordering Physician: Curt Soto ?? Date of Service: 06/04/24 ?? Procedure(s): XR chest 1V ?? Accession Number(s): [id number] ? cc: Curt Soto; [facility] ? CLINICAL HISTORY: Chest pain ? 1 [...] 06/04/24 1705 ? DD/ 1703 ? TD/TT: 06/04/241702 ? Eyeglass Lens Cutter: ? Procedure Note Donsaurabhabelter, Image - 06/04/2024 [place] [address] XRay Report Signed Patient: Ross Navarrete LMR#: [id number] : 1980Acct:[id number] Age/Sex: 43 / MADM Date: 06/04/24 Loc: HO.ED Attending Dr: Ordering Physician: Curt Soto Date of Service: 06/04/24 Procedure(s): XR chest 1V Accession Number(s): [id number] cc: Curt Soto; [facility] CLINICAL HISTORY: Chest pain 1 view chest [...] in OV> 06/04/241704 DD/ 02 TD/TT: 06/04/241702 Eyeglass Lens Cutter: us [facility] External Provider IMG XR PROCEDURES Final Result * Glucose, Whole Blood (06/04/2024 4:40 PM EST) Pathologist [facility] Glucose, Whole Blood 106 60 - 115 mg/dL [facility] Comment:METER #: [id number] 06/04/2024 4:40 PM EST 06/04/2024 4:43 PM EST Generic External Data Provider LAB BLOOD ORDERAB LES Final Result Performing Organization Address [facility] Co de Phone Number [facility] [address] [place] [phone] * High Sensitivity Troponin I (06/04/2024 11:28 AM EST) [facility] TROPONIN I HIGH SENSITIVITY <2.7 <3.5 - 35.0 ng/L [facility] Comment:The [place] high sens itivity Troponin-I results should beused in conjunction with other diagnostic information suchas ECG, clinical observations and information, and patientsymptoms to aid in the diagnosis of [place]. 06/04/2024 11:2 8 AM EST 06/04/2024 11:56 AM EST Generic External Data Provider LAB BLOOD ORDERAB LES Final Result Performing Organization Address [facility] Co de Phone Number [facility] [address] [place] [phone] * (ABNORMAL) Basic Metabolic Panel (06/04/2024 11:28 AM EST) Pathologist [facility] Sodium 138 135 - 145 mmol/L [facility] Potassium 4.2 3.3 - 5.1 mmol/L [facility] Chloride 105 96 - 108 mmol/L [facility] Carbon Dioxide 28 22 - 29 mmol/L [facility] Anion Gap 9(L) 12 - 20 [facility] Urea Nitrogen (BUN) 17(H) 9 - 16 mg/dL [facility] Creatinine, Serum 0.98 0.5 - 1.4 mg/dL [facility] Creatinine Clr Calc Pharmacy 150.8 [facility] Comment:eGFR (calculated fro m the MDRD study equation) and eCrCl(calculated from the Cockcroft-Gault equation) are based ondifferent parameters and may not yield comparable results.If eCrCl result is absurd, please check patient'sheight/weight. Estimated Glomerular Filt Rate >60 [facility] Comment:Chronic Kidney Disea se: Estimated GFR < 60 mL/min/[id number] Kidney Disease: Estimated GFR < 15 mL/min/1.73m2 Glucose 130(H) 60 - 115 mg/dL [facility] Calcium 9.3 8.4 - 10.2 mg/dL [facility] 06/04/2024 11:2 8 AM EST 06/04/2024 11:56 AM EST us Generic External Data Provider LAB BLOOD ORDERAB LES Final Result [facility] [address] [place] [phone] * (ABNORMAL) CBC auto differential (06/04/2024 11:28 AM EST) White Blood Count 8.1 4.8 - 10.8 X10*3/uL [facility] Red Blood Count 4.34(L) 4.60 - 5.80 X10*6/uL [facility] Hemoglobin 12.2(L) 14.0 - 18.0 g/dl [facility] Hematocrit 36.6(L) 42.0 - 52.0 % [facility] Mean Corpuscular Volume 84.3 80.0 - 98.0 fL [facility] Mean Corpuscular Hemoglobin 28.1 27.0 - 33.0 pg [facility] Mean Corpuscular HGB Conc 33.3 31.0 - 36.0 g/dl [facility] Red Cell Distribution Width 13.0 11.0 - 16.0 % [facility] Platelet Count 118(L) 160 - 400 X10*3/uL [facility] Mean Platelet Volume 12.5(H) 9.4 - 12.4 fL [facility] Neutrophils Percent Auto 71.6 45 - 73 % [facility] Imm Gran Pct Auto 0.7(H) 0.0 - 0.4 % [facility] Lymphocytes Percent Auto 18.5(L) 20 - 40 % [facility] Monocytes Percent Auto 7.3 2 - 11 % [facility] Eosinophils Percent Auto 1.5 0 - 4 % [facility] Basophils Percent Auto 0.4 0 - 2 % [facility] NRBC Pct Auto 0.0 0.0 - 0.2 /100WBC [facility] Neutrophils Absolute Auto 5.8 2.0 - 8.3 x10*3/uL [facility] Imm Gran Abs Auto 0.06(H) 0.00 - 0.03 X10*3/uL [facility] Lymphocytes Absolute Auto 1.5 1.2 - 4.9 X10*3/uL [facility] Monocytes Absolute Auto 0.6 0.1 - 1.2 X10*3/uL [facility] Eosinophils Absolute Auto 0.1 0.0 - 0.4 X10*3/uL [facility] Basophils Absolute Auto 0.0 0.0 - 0.2 X10*3/uL [facility] NRBC Abs Auto 0.000 0.0 - 0.012 X10*3/uL [facility] 06/04/2024 11:2 8 AM EST 06/04/2024 11:56 AM EST us Generic External Data Provider LAB BLOOD ORDERAB LES Final Result [facility] [address] [place] [address] [phone] documented in this encounter Visit Diagnoses Not on filedocumented in this encounter Additional Health Concerns Assessment Noted Time PHQ-9 Depression Total Score: 25 01/18/ 024 8:12 AM EDT documented as of this encounter Care Teams Block Sawyer Relationship Specialty Start Date End Date Naheed Zaman ANP [address] [place] [address] PCP - General Family Medicine 01/18/22 documented as of this encounter
--- OUTSIDE RECORDS SUMMARY | 2024-07-01 16:07 | XMS_ITS | Encounter Summary ---
Author Organization [employer] Address [address] [place] [address] [address], [place] [address] Care Team Providers Care Information Management Specialist Name Role Phone Sofia Mitchell Primary Care Provider [phone] Reason for Referral * Consultation (Urgent) - Authorized Specialty Diagnoses / Procedures Referred By Contac t Referred To Contact Cardiology Diagnoses Atypical chest pain Sofia Mitchell ANP [address] [place] [address] Phone: tel: fax: [facility] Referral ID Status Reason Start Date Expiration Date Visits Requested Visits Authorized [id number] Authorized Specialty Services Required 06/24/2024 06/24/2025 6 6 * Imaging (Routine) - Closed Specialty Diagnoses / Procedures Referred By Contac t Referred To Contact Radiology Diagnoses Testicular pain, left Inguinal pain, left Procedures US Groin Left Sofia Mitchell ANP [address] [place] [address] Phone: tel: fax: [facility] [address] [place] [address] Phone: tel: fax: Referral ID Status Reason Start Date Expiration Date Visits Re quested Visits Authorized [id number] Closed 04/02/2024 04/02/2025 1 1 * Imaging (Routine) - Closed Specialty Diagnoses / Procedures Referred By Contac t Referred To Contact Radiology Diagnoses Testicular pain, left Inguinal pain, left Procedures US Scrotum Sofia Mitchell ANP [address] [place] [address] Phone: tel: fax: [address] Phone: tel: fax: Referral ID Status Reason Start Date Expiration Date Visits Re quested Visits Authorized [id number] Closed 04/02/2024 04/02/2025 1 1 * Consultation (Routine) - Authorized Specialty Diagnoses / Procedures Referred By Miladys dias Referred To Contact Pharmacy Diagnoses Diabetic nephropathy with proteinuria (CMS/HCC) Sofia Mitchell ANP [address] [place] [address] Phone: tel: fax: Referral ID Status Reason Start Date Expiration Date Visits Requested Visits Authorized [id number] Authorized Continuity of Care 03/29/2024 03/29/2025 6 6 Encounter Details Date Type Department Care Team (Latest Contact Info) Description 03/29/2024 1:00 PM EDT Office Visit [facility] [address] [place] [address] Sofia Mitchell ANP [address] [place] [address] Diabetic nephropathy with proteinuria (CMS/HCC) (Primary Dx); Type 2 diabetes mellitus with hyperlipidemia (CMS/HCC) ; Gastroesophageal reflux disease, unspecified whether esophagitis present; Thrombocytopenia (CMS/HCC); Testicular pain, left; Inguinal pain, left; Atypical chest pain Social History Tobacco Use Types Packs/Day Years [...] Frequency of Binge Drinking Not on file 08/0 01/2024 Score 0 01/05/2024 Depression Answer Date Recorded Patient Health Questionnaire-9 Score 25 01/19/2024 Patient Health Questionnaire-9 Score 25 01/19/2024 Last PHQ-9: Questionnaire Data Not on file 0 01/19/2024 Housing Stability Answer Date Recorded What is your housing situation today? I have zack maya 03/13/[address] you li [...] Sign Reading Time Taken Comments Blood Pressure 156/77 03/29/2024 1:04 PM EDT Pulse 64 03/29/2024 1:04 PM EDT Temperature 36.6 ??C (97.9 ??F) 03/29/2024 1:04 PM ED T Respiratory Rate 18 03/29/2024 1:04 PM EDT Oxygen Saturation 98% 03/29/2024 1:04 PM EDT Inhaled Oxygen Concentration - - Weight - - Height 165.1 cm (5' 5 ) 03/29/2024 1:04 PM EDT Body Mass Index - - documented in this encounter Progress Notes * Sofia Mitchell, ANP - 03/29/2024 1:00 PM EDT SUBJECTIVE: Ross Navarrete is a 43 y.o. year old male who presents for follow up depression. Denies recent illness, injury, or hospitalization. PMH BETSY on CPAP (using), CTS, HTN, GERD, T2DM w/ neuropathy and nephropathy, HLD, gout, severe MDD,MICHAEL, OUD engaged in OBAT Acute Concerns: Depression: take fluoxetine 40mg daily Saw rheum and he was told he has fibromyalgia Normal gastric emptying study Still having epigastric pain and urgency especially after eating. He drinks coffee and we discuss how this can contribute but he does not think it is contributing. In general he is frustrated with how he has had to wait for all his specialist evaluations. Still has not seen cards for stress test which he needs b/f ortho surgery. Needs to see PM for shoulder injection still. He needs to be able to lift his left arm to get stress test, he was supposed to see PMand he will do this - he put on hold d/t an infection in his mouth and he was taking abx for. He has not been able to get MRA b/c it got scheduled for somewhere that did not have the open MR machine and he could not fit. This was sent elsewhere to accommodate. Lab Results Component Value Date HGBA1C 7.5 (A) 02/13/2024 He wants tints on his car b/c he has light sensitivity and bothers his eyes and head. We dicuss need for dx to support. GI follow-up to be scheduled - he has called but has not heard back, I will ask team to call to assist. He says today he has fam h/o colon cancer. He will call pain mgmt for appt for shoulder pain Re-trial GLP1 - pt got abd pain w/ trulicity Will trial ozempic He is also having L testicular pain and wonders if his hernia has happened again. Will check for L inguinal hernia w/ US Social History Social History Narrative Not on [...] use disorder MICHAEL (generalized anxiety disorder) Headache Past Surgical History: Procedure Laterality Date APPENDECTOMY HERNIA REPAIR Family History Problem Relation Name Age of Onset Cancer Mother bladder Cancer Maternal Grandfather colon Review of Systems See HPI OBJECTIVE: Vitals: 03/29/24 1304 BP: (!) 156/77 BP Location: Right arm Patient Position: Sitting BP Cuff Size: Adult long Pulse: 64 Resp: 18 Temp: 97.9 ??F (36.6 ??C) TempSrc: Temporal SpO2: 98% Height: 5' 5 (1.651 m) Physical Exam Vitals reviewed. Constitutional: General: He is not in acute distress. Appearance: Normal appearance. He is obese. He is not ill-appearing. HENT: Head: Normocephalic and atraumatic. Eyes: General: No scleral icterus. Extraocular Movements: Extraocular movements intact. Pupils: Pupils are equal, round, and reactive to light. Cardiovascular: Rate and Rhythm: Normal rate and regular rhythm. Pulmonary: Effort: Pulmonary effort is normal. No accessory muscle usage or respiratory distress. Musculoskeletal: Comments: Bilateral LE edema, venous stasis derm; R knee in brace Neurological: General: No focal deficit present. Mental Status: He is alert and oriented to person, place, and time. Mental status is at baseline. Comments: Ambulates w/ cane Psychiatric: Mood and Affect: Mood normal. Behavior: Behavior normal. ASSESSMENT/PLAN GI follow-up to be scheduled - he has called but has not heard back, I will ask team to call to assist. He says today he has fam h/o colon cancer. He will call pain mgmt for appt for shoulder pain Re-trial GLP1 - pt got abd pain w/ trulicity Will trial ozempic as A1c remains above goal </= 7.0. He is also having L testicular pain and wonders if his hernia has happened again. Will check for L inguinal hernia w/ US Diagnoses and all orders for this visit: Diabetic nephropathy with proteinuria ([facility]) (Primary) - Referral to Pharmacy MTM Type 2 diabetes mellitus with hyperlipidemia ([facility]) - semaglutide (Ozempic) 2 MG/1.5ML solution pen-injector; 0.25 subcutaneous once weekly for 4 weeks, then increase to 0.5 mg once weekly Gastroesophageal reflux disease, unspecified whether esophagitis present - esomeprazole (NexIUM) [address] capsule; Take 1 capsule (40 mg) by mouth before breakfast. Do not open capsule. Thrombocytopenia ([facility]) Testicular pain, left - US Scrotum; Future - US Groin Left; Future Inguinal pain, left - US Scrotum; Future - US Groin Left; Future 06/20/24 Atypical chest pain, Addendum will place referral for cardiology for follow-up on chest pain. Previously ordered stress test for this patient who has not yet been able to undergo stress testing due to shoulder pain limiting his ability to I believe perform the positioning necessary for stress test/echo. This was originally ordered for operative clearance for orthopedic surgery for his torn meniscus R knee as at his original preop he reported chest pain. Follow Up: 3 mo, sooner prn Current Outpatient Medications on File Prior to Visit Medication Sig Dispense Refill Alcohol Swabs (Alcohol Prep) 70 % pads USE FOUR TIMES DAILY WITH INSULIN atorvastatin (Lipitor) 10 MG tablet Take 1 tablet (10 mg) by mouth at bedtime. 90 tablet 3 beta carotene (vitamin A) 3 MG (85350 UT) capsule TAKE 2 CAPSULES BY MOUTH EVERY DAY FOR 2 WEEKS Blood Glucose Monitoring Suppl (Digital D[place] Lite) w/Device kit TEST BLOOD SUGAR FOUR [...] following use. 473 mL 0 Continuous Glucose Acid Wash Operator (Vitronet GroupStyle Casey 2 Huntly) device Scan sensor every 8 hours 1 each 0 Continuous Glucose Sensor (FreeStyle Casey 2 Sensor) [facility] Apply 1 sensor every 14 days 2 each 11 EPINEPHrine (Epipen) 0.3 MG/0.3ML injection syringe INJECT INTRAMUSCULARLY DIRECTED ON PACKAGE AND GO TO EMERGENCY ROOM 2 each 0 famotidine (Pepcid) 20 MG tablet Take 1 [...] spray Administer 0.1 mL into affected nostril(s). Suboxone 8-[address] 3 Film under the tongue Once per day for 28 days. 84 Film 0 Sure Comfort Pen [place]one 31G X 5 MM misc USE FOUR TIMES DAILY WITH INSULIN thiamine (Vitamin B-1) 50 MG tablet Take 50 mg by mouth in the morning. TRUEplus Lancets 33G misc TEST BLOOD SUGAR FOUR TIMES DAILY Vitron-C 65-125 MG tablet Take 1 tablet by mouth at bedtime. [DISCONTINUED] pantoprazole (ProtoNix) 20 MG EC tablet Take 1 tablet (20 mg) by mouth 2 times daily. Do not crush, chew, or split. 180 tablet 1 [DISCONTINUED] Suboxone 8-[address] 3 Film under the tongue Once per day for 28 days. 84 Film 0 No current facility-administered medications on file prior to visit. documented in this encounter Miscellaneous Notes * Addendum Note - JOSIAH Marquez - 03/29/2024 1:00 PM EDTAddended by: SOFIA MITCHELL on: 06/20/2024 12:51 PM Modules accepted: Orders documented in this encounter Plan of Treatment Upcoming Encounters Date Type Department Care Team (Late st Contact Info) Description 07/10/2024 2:00 PM EST Office Visit [facility] [address] [place] [address] Sofia Mitchell ANP [address] [place] [address] 07/25/2024 3:00 PM EST Office Visit [facility] [address] [place] [address] Rut Branham MD [address] [place] [address] 07/30/2024 9:00 AM EST Office Visit [facility] [address] [place] [address] Zay Schmidt DDS [address] [place] [address] Scheduled Orders Name Type Priority Associated Diagnoses Orde r Schedule US Groin Left Imaging Routine Testicular pain, left Inguinal pain, left Expected: 04/02/2024, Expires: 04/02/2025 Scheduled Referrals Name Type Priority Associated Diagnoses Orde r Schedule Referral to Pharmacy MTM Outpatient Referral Routine Diabetic nephropathy with proteinuria ([facility]/HCC) Ordered: 03/29/2024 Referral to Cardiology Outpatient Referral Urgent Atypical chest pain Expected: 06/20/2024 (Approximate), Expires: 06/20/2025 documented as of this encounter Procedures Procedure Name Priority Date/Time Associated Diagnosis Comments US SCROTUM Routine 04/11/2024 1:30 PM EST Testicular pain, left Inguinal pain, left documented in this encounter Results * US Scrotum (04/11/2024 1:30 PM EST) Anatomical Region Laterality Modality Body Ultrasound 04/11/2024 1:30 PM EST Narrative 06/07/2024 8:41 AM EST ? [facility] ?[address] ?[place] [address] ? Ultrasound Report ? Signed ? Patient: Landon,Ross L ?MR#: [id number] ?? [id number] ? : 1980 ?Acct:[id number] ? Age/Sex: 43 / M ?ADM Date: 04/11/24 ? Loc: HO.US ? Attending Dr: Sofia Mitchell NP ? Ordering Physician: SOFIA MITCHELL NP ?? Date of Service: 04/11/24 ?? Procedure(s): US scrotum ?? Accession Number(s): [id number] ? cc: SOFIA MITCHELL NP ? EXAMINATION: [...] signed by Hamzah Mcdaniels MD in OV> ?06/07/24 0838 ? DD/DT: 14/24 1330 ? TD/TT: 04/11/24 1400 ? Fine Arts Model: ? Procedure Note Donotuseinterpreter, Image - 06/07/2024 [place] [address] Ultrasound Report Signed Patient: Ross Navarrete LMR#: [id number] : 1980Acct:[id number] Age/Sex: 43 / MADM Date: 04/11/24 Loc: HO.US Attending Dr: Sofia Mitchell NP Ordering Physician: SOFIA MITCHELL NP Date of Service: 04/11/24 Procedure(s): US scrotum Accession Number(s): [id number] cc: SOFIA MITCHELL NP EXAMINATION: US SCROTUM [...] by: Hamzah Mcdaniels MD 06/07/2024 08:38 AM [facility] Dictated By: Hamzah Mcdaniels MD Signed By: <Electronically signed by Hamzah Mcdaniels MD in OV> 06/07/24 0838 DD/ 1330 TD/TT: 04/11/24 1400 Fine Arts Model: Sofia RAHMAN IMG US PROCEDURES Final Result documented in this encounter Visit Diagnoses Diagnosis Diabetic nephropathy with proteinuria (CMS/HCC)- Primary Type 2 diabetes mellitus with hyperlipidemia (CMS/[facility]) Gastroesophageal reflux disease, unspecified whether esophagitis present Thrombocytopenia (CMS/[facility]) Unspecified thrombocytopenia Testicular pain, left Unspecified disorder of male genital organs Inguinal pain, left Atypical chest pain Other chest pain documented in this encounter Additional Health Concerns Assessment Noted Time PHQ-9 Depression Total Score: 024 8:12 AM EDT documented as of this encounter Care Teams Information Management Specialist Relationship Specialty Start Date End Date Sofia Mitchell ANP [address] [place] [address] PCP - General Family Medicine 01/18/22 documented as of this encounter
--- OUTSIDE RECORDS SUMMARY | 2024-07-01 16:07 | XMS_ITS | Encounter Summary ---
Author Organization [employer] Address [address] [facility] 7t [place] [address] Care Team Providers Care Award Clerk Name Role Phone Naheed Zaman Primary Care Provider [phone] Reason for Visit * Reason Onset Date Comments callback requested 04/23/2024 Encounter Details Date Type Department Care Team ([facility] st Contact Info) Description 04/23/2024 Telephone [facility] [address] [place] [address] Naheed Zaman ANP [address] [place] [address] callback requested Social History Tobacco Use Types [...] returning call to Madie Wesley Callback number [phone] documented in this encounter Plan of Treatment Upcoming Encounters Date Type Department Care Team (Late st Contact Info) Description 07/10/2024 2:00 PM EST Office Visit [facility] [address] [place] [address] Naheed Zaman ANP [address] [place] [address] 07/25/2024 3:00 PM EST Office Visit [facility] [address] [place] [address] Rut Branham MD [address] [place] [address] 07/30/2024 9:00 AM EST Office Visit [facility] [address] [place] [address] Zay Schmidt DDS [address] [place] [address] documented as of this encounter Visit Diagnoses Not on filedocumented in this encounter Additional Health Concerns Assessment Noted Time PHQ-9 Depression Total Score: 25 024 8:12 AM EDT documented as of this encounter Care Teams Award Clerk Relationship Specialty Start Date End Date Naheed Zaman ANP [address] [place] [address] PCP - General Family Medicine 01/18/22 documented as of this encounter
--- OUTSIDE RECORDS SUMMARY | 2024-07-01 16:07 | XMS_ITS | Clinical Summary ---
Author Organization [facility] Address [address] [place] [address] Phone Care Team Providers Care Boots And Shoes Supervisor Name Role Phone Naheed Zaman NP Primary Care Provider [phone] Allergies Active Allergy Reactions Criticality Noted Date [...] hypertension 05/10/2017 Overview (04/17/2024): Mild, ECHO 10/21/10 [facility], EF 65-70% HTN (hypertension) 05/10/2017 H. pylori [...] myelopathy or radiculopathy 04/26/2017 Overview (04/17/2024): Saw [facility] Rheumatology BETSY (obstructive sleep apnea) 04/26/2017 Overview (04/17/2024): Polysomnography 08/05/2009, [facility] :On cpap 14 cm H2O 10/23/2017 Home Sleep Study insufficient data. 08/2018 - Pulm ordered split night study. Diabetes mellitus type 2 with neurological manif estations 04/26/2017 CTS (carpal tunnel syndrome) 04/26/2017 Encounters Date Type Department Care Team Description 06/03/2024 2:30 PM EST Consult Orthopedic Surgery - [address] [address] Bg Yeager, DPM Ingrowing nail [...] DX:History of acute post-streptococcal glomerulonephritis; COMMENT: Hospitalized [facility] with anasarca/ KUNAL 2010, streptolysin titer 1060, kidney bx, Followed in past by Dr Zapata, NSAIDS not recommended HTN (hypertension) 05/10/2017 DX:HTN (hyper tension) Morbid obesity with BMI of 6 0.0-69.9, adult (CMS/HCC) 04/26/2017 DX:Morbid obesity with BMI o f 60.0-69.9, adult ([facility]) BETSY (obstructive sleep apnea) 04/26/2017 DX :BETSY (obstructive sleep apnea); COMMENT: Polysomnography 08/05/2009, [facility] :On cpap 14 cm H2O Pulmonary hypertension (CMS/HCC) 05/10/2017 DX:Pulmonary hypertension (HCC); COMMENT: Mild, ECHO 10/21/10 [facility], EF 65-70% Otherwise normal altho suboptimal views, [...] egion without myelopathy or radiculopathy; COMMENT: Saw [facility] Rheumatology Family History Medical History Relation Name [...] 2:00 PM EDT Office Visit Orthopedic Surgery - [place] [address] [phone] Bg Yeager, DPM [address] [address] Health Maintenance Due Date Last Done Comments [...] * Urine Albumin Creatinine Ratio (02/27/2020) Pathologist [facility] Urine Albumin Creatinine Ratio Abstracted Historical Provider MD PETER ROMO E * Annual BMP Blood Test (02/27/2020) Pathologist [facility] Annual BMP Blood Test Abstracted Historical Provider MD PETER ROMO E * (ABNORMAL) Hemoglobin A1c (02/27/2020) [facility] Hemoglobin A1C 6.9(A) 6.5 % Blood Venous blood specimen / Unknown Historical Provider LAB BLOOD ORDERAB LES * Lipid panel (02/27/2020) Pathologist [facility] LDL/HDL Ratio 3 0 - 4 Triglycerides 91 0 - 150 mg/dL Cholesterol 145 0 - 200 mg/dL HDL 58 40 mg/dL LDL Cholesterol 69 0 - 100 mg/dL Blood Venous blood specimen / Unknown Historical Provider LAB BLOOD ORDERAB LES * Hepatitis C Screening (06/22/2017) [facility] Hepatitis C Screening Abstracted Historical Provider HEALTH MAINTENANC E from Last 3 Months or Most Recently Relevant to Health Maintenance Care Teams Boots And Shoes Supervisor Relationship Specialty Start Date End Date Naheed Zaman ACCOUNTING TECHNICIAN [address] [phone] PCP - General 02/21/24
--- OUTSIDE RECORDS SUMMARY | 2024-07-01 16:07 | XMS_ITS | Encounter Summary ---
Author Organization [email or web address] Address [address] [facility] 7t [place] [address] Care Team Providers Care Filament Tester Name Role Phone Naheed Zaman Primary Care Provider [phone] Encounter Details Date Type Department Care Team ([facility] st Contact Info) Description 06/21/2024 Telephone [facility] [address] [place] [address] Naheed Zaman ANP [address] [place] [address] Social History Tobacco Use Types Packs/Day Years [...] encounter Miscellaneous Notes * Telephone Encounter - Jadon Tovar RN - 06/21/2024 10:33 AM EST TC placed to patient to inform of provider message below. Patient reports he has an appt for the stress test already. RN informed patient that he will get letter in mail or call from cardiology office with the appt date and time. * Telephone Encounter - Jadon Tovar RN - 06/21/2024 10:33 AM EST ----- Message from Naheed Zaman sent at 06/20/2024 12:51 PM EST ----- Please let Ross know I am referring him to cardiology as I believe they will more easily be able to get his stress test completed or decide whether he absolutely needs the stress test before pursuing orthopedic surgery. documented in this encounter Plan of Treatment Upcoming Encounters Date Type Department Care Team (Late st Contact Info) Description 07/10/2024 2:00 PM EST Office Visit [facility] [address] [place] [address] Naheed Zaman ANP [address] [place] [address] 07/25/2024 3:00 PM EST Office Visit [facility] [address] [place] [address] Rut Branham MD [address] [place] [address] 07/30/2024 9:00 AM EST Office Visit [facility] [address] [place], [place] [phone] Zay Schmidt DDS [address] [place], [place] [phone] documented as of this encounter Visit Diagnoses Not on filedocumented in this encounter Additional Health Concerns Assessment Noted Time PHQ-9 Depression Total Score: 25 024 8:12 AM EDT documented as of this encounter Care Teams Filament Tester Relationship Specialty Start Date End Date Naheed Zaman ANP [address] [place] [address] PCP - General Family Medicine 01/18/22 documented as of this encounter
--- OUTSIDE RECORDS SUMMARY | 2024-07-01 16:07 | XMS_ITS | Encounter Summary ---
Author Organization [employer] Address [address] [facility] 7t [place] [address] Care Team Providers Care Director Internal Audit Name Role Phone Naheed Zaman JOSIAH Primary Care Provider [phone] Reason for Visit * Reason Onset Date Comments Med Refill 06/18/2024 Encounter Details Date Type Department Care Team (Late st Contact Info) Description 06/18/[address] [facility] [address] [place] [address] Tristen Chen, APRIL [address] [place] [address] Uncomplicated opioid dependence (CMS/HCC) Social History Tobacco [...] Description 07/10/2024 2:00 PM EST Office Visit [facility] [address] [place] [address] Naheed Zaman ANP [address] [place] [address] 07/25/2024 3:00 PM EST Office Visit [facility] [address] [place] [address] Rut Branham MD [address] [place] [address] 07/30/2024 9:00 AM EST Office Visit [facility] [address] [place] [address] Zay Schmidt DDS [address] [place] [address] documented as of this encounter Visit Diagnoses Diagnosis Uncomplicated opioid dependence (CMS/HCC) documented in this encounter Additional Health Concerns Assessment Noted Time PHQ-9 Depression Total Score: 25 024 8:12 AM EDT documented as of this encounter Care Teams Director Internal Audit Relationship Specialty Start Date End Date Naheed Zaman ANP [address] [place] [address] PCP - General Family Medicine 01/18/22 documented as of this encounter
--- OUTSIDE RECORDS SUMMARY | 2024-07-01 16:07 | XMS_ITS | Encounter Summary ---
Author Organization [employer] Address [address] [place] [address] Care Team Providers Care Corporate Intern Name Role Phone Naheed Zaman JOSIAH Primary Care Provider [phone] Reason for Visit * Reason Comments Med Refill Encounter Details Date Type Department Care Team ([facility] st Contact Info) Description 09/14/2023 Refill [facility] MEDICINE [address] [place], [place] [phone] Dayna Cardenas MD [address] [place], [place] [phone] Uncomplicated opioid dependence (CMS/HCC) Social History Tobacco [...] Description 07/10/2024 2:00 PM EST Office Visit [facility] MEDICINE [address] [place] [phone] Naheed Zaamn ANP [address] [place] [phone] 07/25/2024 3:00 PM EST Office Visit [facility] MEDICINE [address] [place] [phone] Rut Branham MD [address] [place] [address] 07/30/2024 9:00 AM EST Office Visit [facility] ADULT DENTAL [address] [place] [phone] Zay Schmidt DDS [address] [place] [address] documented as of this encounter Visit Diagnoses Diagnosis Uncomplicated opioid dependence (CMS/HCC) documented in this encounter Additional Health Concerns Assessment Noted Time PHQ-9 Depression Total Score: 6 11/19/19 23 3:29 PM EDT documented as of this encounter Care Teams Corporate Intern Relationship Specialty Start Date End Date Naheed Zaman ANP [address] [place] [phone] PCP - General Family Medicine 01/18/22 documented as of this encounter
--- OUTSIDE RECORDS SUMMARY | 2024-07-01 16:07 | XMS_ITS | Encounter Summary ---
Author Organization [employer] Address [address] [place] [address] Care Team Providers Care Mechanical Spreader Operator Name Role Phone Junie Naheed Espinosa NP Primary Care Provider [phone] Reason for Visit * Reason Comments Foot Problem Long painful toenail s Encounter Details Date Type Department Care Team (Late st Contact Info) Description 06/03/2024 2:30 PM EST Consult [facility] [place] [address] [phone] Bg Yeager, DPM [address] [phone] Ingrowing nail (Primary Dx); Dermatophytosis of nail; [...] including gabapentin which he states does help Nauruan or audio operator utilized today ID number [id number] ROS: GENERAL: Pt denies nausea, fever, vomiting, [...] mellitus), 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 ([facility]) CTS (carpal tunnel syndrome) Asthma Acquired pes planus Morbid obesity with BMI of 60.0-69.9, adult ([facility]) SOCIAL HISTORY: Social History Tobacco Use Smoking [...] PM EDT Office Visit [facility] [place] [address] [phone] Bg Yeager DPM [address] [address] documented as of this encounter Visit Diagnoses [...] uncontrolled documented in this encounter Care Teams Mechanical Spreader Operator Relationship Specialty Start Date End Date Naheed Zaman NP [address] [place] [phone] PCP - General 02/21/24 documented as of this encounter
--- OUTSIDE RECORDS SUMMARY | 2024-07-01 16:07 | XMS_ITS | Clinical Summary ---
Author Organization [employer] Address [address] [facility] [address] [place] [address] Care Team Providers Care Basket Sorter Name Role Phone Sofia Mitchell JOSIAH Primary Care Provider [phone] Allergies Active Allergy Reactions Criticality Noted Date Comments Shellfish Allergy 05/02/2022 Medications * This document contains information received from the source organization and may not represent a complete record from that organization. Alcohol Swabs (Alcohol Prep) 70 % pads USE FOUR TIMES DAILY WITH INSULIN Active Blood Glucose Monitoring Suppl (FreeStyle [place] Lite) w/Device kit TEST BLOOD SUGAR FOUR TIMES DAILY Active FREESTYLE LITE test strip TEST BLOOD SUGAR FOUR TIMES DAILY Active glucose blood (FREESTYLE LITE) test strip check fingerstick 4 times a day Active Sure Comfort Pen [place] 31G X 5 MM misc USE FOUR [...] Active beta carotene (vitamin A) 3 MG (84653 UT) capsule TAKE 2 CAPSULES BY MOUTH [...] Active Blood Pressure Monitor kitIndications:P ulmonary hypertension ([facility]) 1 kit in the morning. 1 kit 024 Active metoclopramide (Reglan) 10 MG tablet 1 tablet as needed every 6 hrs for nausea/vomiting 40 tablet 024 Active atorvastatin (Lipitor) 10 MG tabletIndication s:Type 2 diabetes mellitus with hyperlipidemia (CMS/HCC) ([facility]) Take 1 tablet (10 mg) [...] use. 473 mL 024 Active Continuous Glucose Perfumer (FreeStyle Casey 2 [place]) deviceIndication s:Diabetes mellitus with albuminuria (CMS/HCC) ([facility]) Scan sensor every 8 hours 1 each 024 Active Continuous Glucose Sensor (FreeStyle Casey 2 Sensor) miscIndications: Diabetes mellitus with albuminuria (CMS/HCC) ([facility]) Apply 1 sensor every 14 days 2 each 024 Active glucose blood (FreeStyle Precision Lefty Test) test stripIndications :Diabetes mellitus with albuminuria (CMS/HCC) ([facility]) Use to test blood sugar 3 times daily 100 each 12 024 2024 Active lisinopril 20 MG tabletIndication s:Type 2 diabetes mellitus with hyperlipidemia (CMS/HCC) (CMS/HCC),Persis tent proteinuria Take 1 tablet (20 mg) by mouth Once per day. 90 tablet 1 Active glucose (BD Glucose) 5 g chewable tabletIndication s:Type 2 diabetes mellitus with hyperlipidemia (CMS/HCC) (CMS/HCC) Chew 3 tablets (15 g) if needed for low blood sugar. 50 tablet 5 024 2024 Active esomeprazole (NexIUM) [address] capsuleIndicatio ns:Gastroesophag eal reflux disease, unspecified whether esophagitis present Take 1 capsule (40 mg) by mouth before breakfast. Do not open capsule. 90 capsule 1 024 2024 Active semaglutide (Ozempic) 2 MG/1.5ML solution pen-injectorIndi cations:Type 2 diabetes mellitus with hyperlipidemia (CMS/HCC) ([facility]) 0.25 subcutaneous once weekly for 4 weeks, then increase to 0.5 mg once weekly 1 each 12 Active betamethasone valerate (Valisone) 0.1 % creamIndications :Venous stasis dermatitis of both lower extremities Apply topically if needed in the morning and at bedtime (dryness). 45 g 2 024 Active ammonium lactate (Amlactin) 12 % creamIndications [...] BY MOUTH EVERY DAY 30 capsule 2 024 Active Lantus SoloStar 100 UNIT/ML pen INJECT 55 UNITS SUBCUTANEOUSLY EVERY NIGHT 15 mL 3 025 Active Suboxone 8-2 MG SL filmIndications: Uncomplicated opioid dependence (CMS/HCC) Place 3 Film under the tongue Once per day for 28 days. 84 Film 025 2024 Active meloxicam (Mobic) 15 MG tabletIndication s:Chronic low back pain without sciatica, unspecified back pain laterality TAKE 1 TABLET BY MOUTH EVERY DAY NEEDED (for pain) 30 tablet 3 025 Active meloxicam (Mobic) 15 MG tabletIndication s:Chronic low back pain without sciatica, unspecified back pain laterality TAKE 1 TABLET BY MOUTH EVERY DAY NEEDED FOR PAIN 30 tablet 3 024 2024 Discontinued insulin glargine (Lantus SoloStar) 100 UNIT/ML pen INJECT 55 UNITS SUBCUTANEOUSLY EVERY NIGHT 15 mL 2 024 2024 Discontinued clotrimazole (Lotrimin) 1 % cream Apply topically 2 times daily for 28 days. 30 g 2 024 2024 Suboxone 8-2 MG SL filmIndications: Uncomplicated opioid dependence (CMS/HCC) Place 3 Film under the tongue Once per day for 28 days. 84 Film 024 2024 Discontinued( Reorder (will not trigger notification to Pharmacy)) Active Problems Problem Noted Date Diagnosed Date [...] Health Integration Plan Internal Follow up with [facility] Patient Self Plan Patient to reach out [facility] team as needed, Comply with medication , [...] Health Integration Plan Internal Follow up with [facility] Patient Self Plan Patient to reach out to [facility] team as needed, Comply with medication , [...] Health Integration Plan Internal Follow up with [facility] Patient Self Plan Patient to utilize skills provided in intervention , Patient to reach out to [facility] team as needed, and Patient to reach out to [facility] as needed Assessment & Plan (11/17/2023 3:54 PM EDT): PROGRESS NOTE: ID: Ross is a 43 y.o. straight-identified cis-male with previous documented hx of Depression No previous hx of MH services who presents for Depression. During [facility] [...] Health Integration Plan Internal Follow up with [facility] External OP psychiatry Referral Patient Self Plan Patient to reach out to [facility] team as needed, Comply with medication , Patient to engage in OP therapy , and Patient to reach out to [facility] as needed Assessment & Plan (09/20/2023 10:06 AM EDT): New/Additional Services needed Off-site services for Behavioral Health Integration Plan External OP BH therapy referral Patient Self Plan Patient to utilize skills provided in intervention , Patient to reach out to [facility] team as needed, Comply with medication , and Patient to engage in OP BH therapy Periodontal disease 03/08/2023 Bilateral lower extremity [...] explained that she tried referring pt to [facility] and other centers and pt;s can not be evaluated for plastic surgery w current BMI -I request referral to be sent to [facility] but was explained is the same criteria [...] hypertension 05/10/2017 Overview (07/28/2022): Mild, ECHO 10[place]21[place]10 [facility] 65-70% H. pylori infection 05/10/2017 Overview (07/28/2022): + serology 08/07/2009, uncertain if treated Gout 05/10/2017 Elevated liver enzymes 05/10/2017 Overview (07/28/2022): fatty liver Arthritis 05/10/2017 Overview (07/28/2022): Mild L knee, Mod L shoulder arthropathy Asthma 05/10/2017 Spondylosis of lumbar region without myelopathy or radiculopathy 04/26/2017 Overview (07/28/2022): Saw [facility] Rheumatology CTS (carpal tunnel syndrome) 04/26/2017 Assessment [...] sleep apnea) 05/18/2015 Overview (07/28/2022): Polysomnography 08/05/2009, [facility] [place] cpap 14 cm H2O 10/23/2017 Home Sleep Study insufficient data. 08/2018 - Pulm ordered split night study. Proteinuria 05/18/2015 Encounters * This document contains information received from the source organization and may not represent a complete record from that organization. Date Type Department Care Team Description 06/27/2024 11:15 AM EST Office Visit [facility] [address] [place] [address] Kaitlyn Burk, KVNG Type 2 diabetes mellitus without ophthalmic manifestations (CMS/HCC) (Primary Dx); Presbyopia 06/27/2024 10:30 AM EST Clinical Support [facility] [address] [place] [phone] Tristen Chen RN Opioid type dependence, continuous (CMS/HCC) (Primary Dx) 06/27/2024 Travel 06/26/2024 Refill [facility] [address] [place] [phone] Heidy Taylor MD Chronic low back pain without sciatica, unspecified back pain laterality 06/21/2024 Telephone [facility] [address] [place] [phone] Sofia Mitchell ANP 06/18/2024 Refill [facility] [address] [place] [phone] Tristen Chen RN Uncomplicated opioid dependence (CMS/HCC) 06/09/2024 Refill [facility] [address] [place] [phone] Sofia Mitchell ANP 06/07/2024 Telephone [facility] [address] [place] [phone] Sofia Mitchell ANP 06/04/2024 9:40 AM EST Office Visit [facility] [address] [place] [phone] Fermin Steward MD Chest pain, unspecified type (Primary Dx); Acute intractable headache, unspecified headache type; Hypertension, unspecified type 06/04/2024 Orders Only GENERIC EXTERNAL DATA DEPARTMENT Provider, Generic External Data 05/30/2024 2:45 PM EST Office Visit [facility] [address] [place] [phone] Rut Branham MD Opioid type dependence, continuous (CMS/HCC) (Primary Dx); Severe episode of recurrent major depressive disorder, without psychotic features (CMS/HCC) 05/30/2024 Travel 05/23/2024 Refill [facility] [address] [place] [phone] Tristen Chen RN Uncomplicated opioid dependence (CMS/HCC) 05/23/[address] [address] Judi Brumfield [place] June05/23/2024 Refill [facility] [address] [place] [phone] Sofia Mitchell ANP Severe episode of recurrent major depressive disorder, without psychotic features (CMS/HCC) 05/20/2024 2:20 PM EST Office Visit [facility] [address] [place] [phone] Collette Cowan MD Candidiasis of perineum (Primary Dx) 05/17/2024 Orders Only GENERIC EXTERNAL DATA DEPARTMENT Provider, Generic External Data 05/16/2024 Orders Only GENERIC EXTERNAL DATA DEPARTMENT Provider, Generic External Data 05/16/[address] [address] Sofia Mitchell ANP 05/14/[address] [phone] Sofia Mitchell ANP 05/03/[address] [address] Sofia Mitchell ANP Call Back Request 05/02/2024 3:45 PM EST Office Visit [facility] [address] [place] [phone] Rut Branham MD Opioid type dependence, continuous (CMS/HCC) (Primary Dx); Severe episode of recurrent major depressive disorder, without psychotic features (CMS/HCC) 05/02/[address] [address] Sofia Mitchell ANP Request For Order(s) (/) 04/24/2024 2:20 PM EST Office Visit [facility] [address] [place] [phone] Verona Estrada MD Venous stasis dermatitis of both lower extremities (Primary Dx); Venous insufficiency of both lower extremities; Primary hypertension 04/24/2024 Orders Only GENERIC EXTERNAL DATA DEPARTMENT Provider, Generic External Data 04/23/[address] [address] Sofia Mitchell ANP callback requested 04/23/[address] [address] Sofia Mitchell ANP 04/22/[address] [address] Sofia Mitchell ANP 04/17/[address] [phone] Tristen Chen RN Uncomplicated opioid dependence ([facility]/HCC) 04/04/2024 3:30 PM EST Office Visit [address] [address] Rut Branham MD Opioid type dependence, continuous (CMS/HCC) (Primary Dx); Severe episode of recurrent major depressive disorder, without psychotic features ([facility]/HCC) 04/04/[address] [address] Judi Brumfield [place] PA for Ozempic 4.5mg 04/04/2024 Travel 04/04/[address] [address] Judi Brumfield [place] PA for Wegovy 0.25mg 04/01/[address] [address] Sofia Mitchell ANP Prior Authorization ( PA: Ozempic) 04/01/[address] [address] Sofia Mitchell ANP from Last 3 Months [...] Description 07/10/2024 2:00 PM EST Office Visit [facility] [address] [place] [phone] Sofia Mitchell ANP [address] [place] [address] 07/25/2024 3:00 PM EST Office Visit [facility] [address] [place] [phone] Rut Branham MD [address] [place] [address] 07/30/2024 9:00 AM EST Office Visit [facility] [address] [place] [address] Zay Schmidt DDS [address] [place] [address] Health Maintenance Due Date Last Done Comments Dental Oral Exam 1981 Dental Prophylaxis 1981 Dental X-Ray: Bitewings 1981 Dental X-Ray: Full Mouth 1981 Diabetes: Foot Exam 11/14/1991 Family Planning (PISQ) 1996 Hepatitis A Vaccines (1 of 2 - Risk 2-dose series) 2000 Pneumococcal Vaccine: Pediatrics (0 to 5 Years) and At-Risk Patients (6 to 49) Years) (1 of 2 - PCV) 2000 Hepatitis B Vaccines (2 of 3 [...] Lipid Panel 04/24/2025 04/24/2024, 06/14/2023 Tobacco Screening 06/27/2025 06/27/2024 Eye Exam 06/27/2026 06/27/2024, 05/31, 06/27/2024, Additional history exists Zoster Vaccines (1 of 2) 11/14/2031 DTaP/Tdap/Td [...] AM EST Opioid type dependence, continuous (CMS/HCC) XR CERVICAL SPINE 3V Routine 06/04/2024 5:58 [...] IMMUNOGLOBULIN A Routine 04/24/2024 11:23 AM EST [id number] QN Routine 11:23 AM EST CERULOPLASMIN Routine [...] CBC Routine 04/24/2024 11:23 AM EST MR GUTHRIE WO CONTRAST LEFT Routine 024 1:35 PM EST MR GUTHRIE WO CONTRAST RIGHT Routine 2023 1:00 PM [...] Recently Relevant to Health Maintenance Results * POCT RAMSES-14 Urine Drug Screen (06/27/2024 11:51 AM EST) Only the most recent of4 resultswithin the time period is included. THC [...] TEST ENTER/YI T ORDERABLES Final Result * XR CERVICAL SPINE 3V (06/04/2024 5:58 PM EST) Anatomical Region Laterality Modality Abdomen Radiographic Lupe ging 06/04/2024 5:58 PM EST Narrative 06/04/2024 6:00 PM EST ? [facility] ?[address] ?[place] [address] ?XRay Report ? Signed ? Patient: Ross Navarrete L ?MR#: [id number] ?? 613 ? : 1980 ?Acct:[id number] ? Age/Sex: 43 / M ?ADM Date: 06/04/24 ? Loc: HO.ED ? Attending Dr: ? Ordering Physician: Alexey Fabian ?? Date of Service: 06/04/24 ?? Procedure(s): XR cervical spine 3V ?? Accession Number(s): [id number] ? cc: [facility]; Alexey Fabian ? CLINICAL HISTORY: neck [...] in OV> ? 06/04/24 1759 ? DD/ 57 ? TD/TT: 06/04/24 175 ? Computed Tomography Technologist: ? Procedure Note Maria T Cronin - 06/04/[address] [address] XRay Report Signed Patient: Ross Navarrete LMR#: [id number] 613 : 1980Acct:[id number] Age/Sex: 43 / MADM Date: 06/04/24 Loc: HO.ED Attending Dr: Ordering Physician: Alexey Fbaian Date of Service: 06/04/24 Procedure(s): XR cervical spine 3V Accession Number(s): [id number] cc: [facility]; Alexey Fabian CLINICAL HISTORY: neck pain [...] Bush MD in OV> 06/04/24 1759 DD/ 175 TD/TT: 06/04/241757 Computed Tomography Technologist: [facility] External Provider IMG XR PROCEDURES Final Result * XR Chest 1 View (06/04/2024 5:03 PM EST) Anatomical Region Laterality Modality Chest Radiographic Lupe ging 06/04/2024 5:03 PM EST Narrative 06/04/2024 5:05 PM EST ? [facility] ?[address] ?[place] [address] ?XRay Report ? Signed ? Patient: Navarrete,Ross L ?MR#: [id number] ?? 613 ? : 1980 ?Acct:[id number] ? Age/Sex: 43 / M ?ADM Date: 01/07/25 ? Loc: HO.ED ? Attending : ? Ordering Physician: Curt Soto ?? Date of Service: 06/04/24 ?? Procedure(s): XR chest 1V ?? Accession Number(s): [id number] ? cc: Curt Soto; [facility] ? CLINICAL HISTORY: Chest pain ? [...] in OV> ? 06/04/24 1705 ? DD/ 02 ? TD/TT: 06/04/241702 ? Computed Tomography Technologist: ? Procedure Note Donotuseinterpreter, Image - 06/04/2024 [place] [address] XRay Report Signed Patient: Ross Navarrete LMR#: [id number] 613 : 1980Acct:[id number] Age/Sex: 43 / MADM Date: 06/04/24 Loc: HO.ED Attending Dr: Ordering Physician: Curt Soto Date of Service: 06/04/24 Procedure(s): XR chest 1V Accession Number(s): [id number] cc: Curt Soto; [facility] CLINICAL HISTORY: Chest pain 1 view [...] in OV> 06/04/241704 DD/ 02 TD/TT: 06/04/241702 Computed Tomography Technologist: [facility] External Provider IMG XR PROCEDURES Final Result * Glucose, Whole Blood (06/04/2024 4:40 PM EST) Only the most recent of3 resultswithin the time period is included. Glucose, Whole Blood 106 60 - 115 mg/dL [facility] Comment:METER #: [id number] 06/04/2024 4:40 PM EST 06/04/2024 4:43 PM EST Generic External Data Provider LAB BLOOD ORDERAB LES Final Result Performing Organization Address [facility] de Phone Number [facility] [address] [place] [phone] * High Sensitivity Troponin I (06/04/2024 11:28 AM EST) [facility] TROPONIN I HIGH SENSITIVITY <2.7 <3.5 - 35.0 ng/L [facility] Comment:The [place] high sens itivity Troponin-I results should beused in conjunction with other diagnostic information suchas ECG, clinical observations and information, and patientsymptoms to aid in the diagnosis of [place]. 06/04/2024 11:2 8 AM EST 06/04/2024 11:56 AM EST Generic External Data Provider LAB BLOOD ORDERAB LES Final Result Performing Organization Address [facility] Number [facility] [address] [place] [phone] * (ABNORMAL) CBC auto differential (06/04/2024 11:28 AM EST) Only the most recent of2 resultswithin the time period is included. [facility] White Blood Count 8.1 4.8 - 10.8 [...] Final Result [facility] [address] [place] [address] [phone] * (ABNORMAL) Basic Metabolic Panel (06/04/2024 11:28 AM EST) Only the most recent of2 resultswithin the time period is included. Sodium 138 135 - 145 mmol/L [facility] [...] Kidney Disea se: Estimated GFR < 60 mL/min/[id number] Kidney Disease: Estimated GFR < 15 mL/min/1.73m2 Glucose 130(H) 60 - 115 mg/dL [facility] Calcium 9.3 8.4 - 10.2 mg/dL [facility] 06/04/2024 11:2 8 AM EST 06/04/2024 11:56 AM EST us Generic External Data Provider LAB BLOOD ORDERAB LES Final Result [facility] [address] [place] [phone] [phone] * POCT urinalysis dipstick manually resulted (05/20/2024 3:21 PM EST) Color, UA Yellow Clarity, UA Clear Glucose, UA Negative Bilirubin, UA Negative Ketones, UA Negative Spec Grav, UA 1.030 Blood, UA Negative Negative, None Detected pH, UA 5.5 Protein, UA Trace Comment:300mg/dl Urobilinogen, UA 0.2 Leukocytes, UA Negative Negative, Rare, Trace Nitrite, UA Negative Negative, None Detected Urine 05/20/2024 3:21 PM EST Collette Cowan MD POINT OF CARE TEST ENTER /EDIT ORDERABLES Final Result * Magnesium (05/17/2024 10:14 AM EST) Only the most recent of2 resultswithin the time period is included. Magnesium 1.8 1.6 - 2.6 mg/dL [facility] 05/17/2024 10:1 4 AM EST 05/17/2024 10:20 AM EST us Generic External Data Provider LAB BLOOD ORDERAB LES Final Result [facility] [address] [place] [phone] * (ABNORMAL) Urinalysis, Complete, with Reflex to Culture (05/17/2024 8:36 AM EST) Color Urine Yellow [facility] Appearance Urine Clear [facility] PH 6.5 5.0 - 9.0 [facility] Glucose Urine UA Negative Negative mg/dL [facility] Urine Blood Negative Negative [facility] Specific [place] - Urine 1.020 1.005 - 1.025 [facility] Urine Protein 300 (3+)(A) Neg-Trace mg/dL [facility] Urine Ketones Negative Negative mg/dL [facility] Nitrite Urine Negative Negative [facility] Leukocyte Esterase Urine Negative Negative [facility] RBC Urine 0-2 0 - 2 /HPF [facility] Urine WBC 6-10 0 - 5 /HPF [facility] Urine Squamous Epithelial Cell 0-2 0 - 2 /HPF [facility] Urine Bacteria None Seen None Seen [facility] Hyaline Casts, Urine 0-2 0 - 2 /LPF [facility] 05/17/2024 8:36 AM EST 05/17/2024 8:39 AM EST Narrative [facility] - 05/17/2024 8:56 AM EST [id number], Clean [employer] us Generic External Data Provider LAB URINE ORDERAB LES Final Result [facility] [address] [place] [phone] [phone] * (ABNORMAL) Drug Monitoring, Panel 1, Screen, Urine (05/16/2024 7:56 PM EST) Opiate Screen Urine Not Detected Not Detect [facility] Comment:Opiate cut-off is 30 0 ng/mL.Positive results are unconfirmed and should not be used fornon-medical purposes. Barbiturates, Urine Not Detected Not Detect [facility] Comment:Barbiturate cut-off is 200 ng/mL.Positive results are unconfirmed and should not be used fornon-medical purposes. Phencyclidine Screen Urine Not Detected Not Detect [facility] Comment:Phencyclidine cut-of f is 25 ng/mL.Positive results are unconfirmed and should not be used fornon-medical purposes. Amphetamine Screen Urine Not Detected Not Detect [facility] Comment:Amphetamine cut-off is 1000 ng/mL.Positive results are unconfirmed and should not be used fornon-medical purposes. Benzodiazepines Screen Urine Not Detected Not Detect [facility] Comment:Benzodiazepine cut-o ff is 200 ng/mL.Positive results are unconfirmed and should not be used fornon-medical purposes. Cocaine Screen Urine Not Detected Not Detect [facility] Comment:Cocaine cut-off is 3 00 ng/mL.Positive results are unconfirmed and should not be used fornon-medical purposes. Cannabinoid Screen Urine POSITIVE(A) Not Detect [facility] Comment:Cannabinoid cut-off is 50 ng/mL.Positive results are unconfirmed and should not be used fornon-medical purposes. Methadone Screen, Urine Not Detected Not Detect ng/mL [facility] Comment:Methadone cut-off is 300 ng/mL.Positive results are unconfirmed and should not be used fornon-medical purposes. FENTANYL URINE Not Detected Not Detect [facility] Comment:Fentanyl cut-off is 1 ng/mL.Positive results are unconfirmed and should not be used fornon-medical purposes. Oxycodone Urine Screen Not Detected Not Detect ng/mL [facility] Comment:Oxycodone cut-off is 100 ng/mL.Positive results are unconfirmed and should not be used fornon-medical purposes. Buprenorphine Screen Positive(A) Not Detect ng/mL [facility] Comment:Buprenorphine cut-of f is 5 ng/mL.Positive results are unconfirmed and should not be used fornon-medical purposes. 05/16/2024 7:56 PM EST 05/16/2024 7:58 PM EST Generic External Data Provider LAB URINE ORDERAB LES Final Result Performing Organization Address [facility] Co de Phone Number [facility] [address] [place] [phone] * Ethanol (05/16/2024 6:10 PM EST) ETHANOL (MG/DL) IN SER/PLAS <10 mg/dL [facility] Comment:Serum/plasma ethanol results are to be used formedical/treatment purposes only. 05/16/2024 6:10 PM EST 05/16/2024 6:12 PM EST Generic External Data Provider LAB BLOOD ORDERAB LES Final Result Performing Organization Address [facility] Co de Phone Number [facility] [address] [place] [phone] * Hepatic Function Panel (05/16/2024 6:10 PM EST) Bilirubin, Total 0.6 0.0 - 1.0 mg/dL [facility] Bilirubin, Direct 0.2 0.0 - 0.5 mg/dL [facility] Aspartate Amino Transferase 25 5 - 37 U/L [facility] Alanine Aminotransferase 16 0 - 40 U/L [facility] Total Protein 7.8 6.5 - 8.0 g/dL [facility] Albumin Level 3.8 3.5 - 5.0 g/dL [facility] [facility] Alkaline Phosphatase 70 39 - 117 U/L [facility] 05/16/2024 6:10 PM EST 05/16/2024 6:12 PM EST us Generic External Data Provider LAB BLOOD ORDERAB LES Final Result [facility] [address] [place] [address] [phone] * US Abdomen Comp w elastography (05/09/2024 9:41 AM EST) Anatomical Region Laterality Modality Abdomen Ultrasound 05/09/2024 9:41 AM EST Narrative 06/18/2024 9:23 AM EST ? [facility] ?[address] ?[place] [address] ? Ultrasound Report ? Signed ? Patient: Ross Navarrete ?MR#: [id number] ?? [id number] ? : 1980 ?Acct:[id number] ? Age/Sex: 43 / M ?ADM Date: 05/09/24 ? Loc: HO.US ? Attending Dr: Kavya Mccain MD ? Ordering Physician: Kavya Mccain MD ?? Date of Service: 05/09/24 ?? Procedure(s): US abdomen comp w elastography ?? Accession Number(s): [id number] ? cc: SOFIA MITCHELL NP; Kavya Mccain MD ? EXAMINATION: ?? US COMPLETE ABDOMEN WITH LIVER ELASTOGRAPHY ? CLINICAL INFORMATION: ?? Fatty change of liver, not elsewhere specified. ? COMPARISON: ?? Abdominal ultrasound 10/24/2023. ?? Abdominal ultrasound with elastography 12/09/2021. ? TECHNIQUE: ?? Real-time imaging of the abdominal viscera. Noninvasive ultrasound ?? liver fibrosis assessment is performed using PrimekssPQ point ?? quantification shear wave elastography (pSWE) [...] DD/ 0941 ? TD/TT: 05/09/24 0957 ? Computed Tomography Technologist: ? Procedure Note Donotuseinterpreter, Image - 06/18/[address] [address] Ultrasound Report Signed Patient: Ross Navarrete LMR#: [id number] : 1980Acct:[id number] Age/Sex: 43 / MADM Date: 05/09/24 Loc: HO.US Attending Dr: Kavya Mccain MD Ordering Physician: Kavya Mccain MD Date of Service: 05/09/24 Procedure(s): US abdomen comp w elastography Accession Number(s): [id number] cc: SOFIA MITCHELL NP; Kavya Mccain MD [...] Radiologists in Ultrasound Liver Stiffness Thresholds (2019): LIVER STIFFNESS THRESHOLDS: *Liver Stiffness equal or [...] by: Hamzah Mcdaniels MD 06/18/2024 09:20 AM [facility] [place] [place] Dictated By: Hamzah Mcdaniels MD Signed By: <Electronically signed by Hamzah Mcdaniels MD in OV> 06/18/24 0920 DD/ 0941 TD/TT: 05/09/24 0957 Computed Tomography Technologist: us [facility] External Provider IMG US PROCEDURES Edited Result - Final * (ABNORMAL) VITAMIN D 25-OH (D2 AND D3) (04/24/2024 11:23 AM EST) Vitamin D, 25-OH, D2 <4 ng/mL [facility] Comment:This test was develo ped and its analytical performancecharacteristics have been determined by [employer] [place]. It hasnot been cleared or approved by the .. Food and DrugAdministration. This assay has been validated pursuantto the CLIA regulations and is used for clinicalpurposes.THIS TEST WAS PERFORMED AT:[employer]/S[employer] [id number] [place] [address]SZACZVBMINI NICOLAS MD,PHD Vitamin D, 25-OH, D3 8 ng/mL [facility] Comment:This test was develo ped and its analytical performancecharacteristics have been determined by [employer] [place]. It hasnot been cleared or approved by the U.S. Food and DrugAdministration. This assay has been validated pursuantto the CLIA regulations and is used for clinicalpurposes. Vitamin D, 25-OH, Total 8(A) 30 - 100 ng/mL [facility] Comment:Vitamin D, 25-Hydrox y reports [...] = 30 ng/mL.For additional information, please refer tohttp://education.[employer]/faq/LEC076(This link is being provided for informational/educational purposes only.) 04/24/2024 11:2 3 AM EST 04/24/2024 11:23 AM EST Generic External Data Provider LAB BLOOD ORDERAB LES Final Result Performing Organization Address [facility]/ZIP Co de Phone Number [facility] [address] [place] [phone] * TSH with Reflex to Free T4 (04/24/2024 11:23 AM EST) TSH reflex Free T4 1.36 0.32 - 4.0 uIU/mL [facility] 04/24/2024 11:2 3 AM EST 04/24/2024 11:23 AM EST Generic External Data Provider LAB BLOOD ORDERAB LES Final Result Performing Organization Address [facility] Co de Phone Number [facility] [address] [place] [phone] * Drug Monitoring, Phosphatidylethanol (PEth), Blood (04/24/2024 11:23 AM EST) Phosphatidylethanol, Blood NEGATIVE [facility] Comment:REFERENCE RANGE: <20 ng/mLTHIS TEST PERFORMED AT:[employer]/[facility] [place] [id number] [place], [place] [phone] DIRECTOR: MINI NICOLAS MD, PHD PEt 16:0/18:2 (PLPEth) NEGATIVE [facility] Comment:REFERENCE RANGE: <20 ng/mLTHIS TEST PERFORMED AT:[employer] [id number] [place], [place] [phone] DIRECTOR: MINI NICOLAS MD, PHD PEt Comments SEE NOTE [facility] Comment:This drug testing is for medical treatment only.Analysis was performed as non-forensic testing andthese results should be used only by healthcareproviders to render diagnosis or treatment, or tomonitor progress of medical conditions.LDT Notes:Confirmation tests were developed and their analyticalperformance characteristics have been determined by[facility]. It has not been cleared or approvedby the FDA. This assay has been validated pursuant tothe CLIA regulations and is used for clinical purposes.Healthcare Providers needing Interpretation assistance,please contact us at [phone] ( )M-F, 8am to 10pm ESTTHIS TEST PERFORMED AT:[employer] [place] [phone] DIRECTOR: ALOK CESPEDES MD 04/24/2024 11:2 3 AM EST 04/24/2024 11:23 AM EST us Generic External Data Provider LAB BLOOD ORDERAB LES Final Result [facility] [address] [place] [address] [phone] * Liver Fibrosis (HCV), FibroTest-ActiTest Panel (04/24/2024 11:23 AM EST) Liver Fibrosis Score 0.16 [facility] Liver Fibrosis Stage F0 [facility] Liver Fibrosis Interpretation no fibrosis [facility] Comment:Fibro Test Score (f) Metavir Score f>=0 and f<=0.21 : F0 (no fibrosis)f>0.21 and f<=0.27 : F0-F1 (no fibrosis)f>0.27 and f<=0.31 : F1 (minimal fibrosis)f>0.31 and f<=0.48 : F1-F2 (minimal fibrosis)f>0.48 and f<=0.58 : F2 (moderate fibrosis)f>0.58 and f<=0.72 : F3 (advanced fibrosis)f>0.72 and f<=0.74 : F3-F4 (advanced fibrosis)f>0.74 and f<=1.00 : F4 (severe fibrosis) Nec Inflam Act Score 0.04 [facility] Nec Inflam Act Grade A0 [facility] Nec Inflam Act Interpretation no activity [facility] Comment:ActiTest Score (a) M etavir Score a>=0 and a<=0.17 : A0 (no activity)a>0.17 and a<=0.29 : A0-A1 (no activity)a>0.29 and a<=0.36 : A1 (minimal activity)a>0.36 and a<=0.52 : A1-A2 (minimal activity)a>0.52 and a<=0.60 : A2 (significant activity)a>0.60 and a<=0.62 : A2-A3 (significant activity)a>0.62 and a<=1.00 : A3 (severe activity) KNT-Lgrxs-3-Macroglo bulin 198 [facility] Comment:REFERENCE RANGE: 106 -279 mg/dL FIB-Haptoglobin 123 [facility] Comment:REFERENCE RANGE: 43- 212 mg/dL FIB-Apolipoprotein A1 164 [facility] Comment:REFERENCE RANGE: 94- 176 mg/dL FIB-Total Bilirubin 0.6 [facility] Comment:REFERENCE RANGE: 0.2 -1.2 mg/dL FIB-GGT 23 [facility] Comment:REFERENCE RANGE: 3-9 5 U/L FIB-ALT 15 [facility] Comment:REFERENCE RANGE: 9-4 6 U/L Reference ID [id number] [facility] Footnote SEE NOTE [facility] Comment: The reliability of results [...] case of discordance between a biopsy result fiordaliza test, it is recommended to seek the [...] and C.The performance characteristics have been determined by[employer] [facility]. Ithas not been cleared or approved by the U.S. Food and DrugAdministration. Performance characteristics refer to theanalytical performance of the test.[email or web address], the associated logo, [employer] and all associated [employer] serrano are theregistered trademarks of [employer] All third partymarks - (R) and (TM) - are the property of their respectiveowners. (C) [id number] [employer] Inc[employer]. Allrights reserved.THIS TEST PERFORMED AT:[employer]/[facility] [place] [phone] DIRECTOR: ANH SCHOFIELD MD, PHD, RIN 04/24/2024 11:2 3 AM EST 04/24/2024 11:23 AM EST Generic External Data Provider LAB BLOOD ORDERAB LES Final Result [facility] [address] [place] [phone] * HLA-B27 Antigen (04/24/2024 11:23 AM EST) HLA-B27 Antigen Negative Negative [facility] Comment:THIS TEST WAS PERFOR MED AT:[employer]/LY [id number] [place] [address]VYIGMHTMINI NICOLAS MD,PHD 04/24/2024 11:2 3 AM EST 04/24/2024 11:23 AM EST us Generic External Data Provider LAB BLOOD ORDERAB LES Final Result Performing Organization Address [facility] Co de Phone Number [facility] [address] [place] [phone] * Thyroid Peroxidase Antibodies (04/24/2024 11:23 AM EST) Pathologist [facility] Thyroid Peroxidase Antibodies <1 <9 IU/mL [facility] Comment:THIS TEST WAS PERFOR MED AT:[employer] [address] [address]WLSIIBENJAMIN CESPEDES MD 04/24/2024 11:2 3 AM EST 04/24/2024 11:23 AM EST Generic External Data Provider LAB BLOOD ORDERAB LES Final Result Performing Organization Address [facility] Number [facility] [address] [place] [phone] * Cyclic Citrullinated Peptide (CCP) Antibody (IgG) (04/24/2024 11:23 AM EST) [facility] Cyclic Citrullinated Peptide <16 UNITS [facility] Comment:Reference RangeNegat nai: <20Weak Positive: 20-39Moderate Positive: 40-59Strong Positive: >59THIS TEST WAS PERFORMED AT:[employer] [address] [address]ZEOIJBENJAMIN CESPEDES MD 04/24/2024 11:2 3 AM EST 04/24/2024 11:23 AM EST Generic External Data Provider LAB BLOOD ORDERAB LES Final Result Performing Organization Address [facility] de Phone Number [facility] [address] [place] [phone] * (ABNORMAL) Iron And Total Iron Binding Capacity (04/24/2024 11:23 AM EST) Pathologist [facility] Iron 55 45 - 160 mcg/dL [facility] Total Iron Binding Capacity 223(L) 228 - 428 mcg/dL [facility] Percent Iron Saturation 25 15 - 50 % [facility] Unsaturated Iron Binding 168 ug/dL [facility] 04/24/2024 11:2 3 AM EST 04/24/2024 11:23 AM EST Generic External Data Provider LAB BLOOD ORDERAB LES Final Result Performing Organization Address [facility] Co de Phone Number [facility] [address] [place] [phone] * Actin (Smooth Muscle) Antibody (IgG) (04/24/2024 11:23 AM EST) Smooth Muscle Antibody <20 <20 U [facility] Comment:Reference Range: <20 U: Negative>or=20 [...] with AIH type 1.THIS TEST WAS PERFORMED AT:[employer]/[id number] [place] [address]HUVJYWF W. MASON,MD,PHD 04/24/2024 11:2 3 AM EST 04/24/2024 11:23 AM EST Generic External Data Provider LAB BLOOD ORDERAB LES Final Result Performing Organization Address [facility] Co de Phone Number [facility] [address] [place] [phone] * Gpuyu-0-Hlffwjbkcjs, Quantitative (04/24/2024 11:23 AM EST) Qzqxm-3-Hofmsoxa sin QN 158 83 - 199 mg/dL [facility] Comment:THIS TEST WAS PERFOR MED AT:[employer] [address] [address]IVGAQLAKEISHA CESPEDES MD 04/24/2024 11:2 3 AM EST 04/24/2024 11:23 AM EST Generic External Data Provider LAB BLOOD ORDERAB LES Final Result Performing Organization Address [facility] Phone Number [facility] [address] [place] [phone] * Tissue Transglutaminase Antibody, IgA (04/24/2024 11:23 AM EST) Transglutaminase IgA <1.0 U/mL [facility] Comment:Value Interpretation ----- <15.0 Antibody not detected> or = 15.0 Antibody detectedTHIS TEST WAS PERFORMED AT:[employer] [address] [address]MYVQNRADHAMES CESPEDES MD 04/24/2024 11:2 3 AM EST 04/24/2024 11:23 AM EST Generic External Data Provider LAB BLOOD ORDERAB LES Final Result Performing Organization Address [facility] Number [facility] [address] [place] [phone] * Ceruloplasmin (04/24/2024 11:23 AM EST) Ceruloplasmin 24 14 - 30 mg/dL [facility] Comment:THIS TEST WAS PERFOR MED AT:[employer] [address] [address]UOOPHRADHAMES CESPEDES MD 04/24/2024 11:2 3 AM EST 04/24/2024 11:23 AM EST Generic External Data Provider LAB BLOOD ORDERAB LES Final Result Performing Organization Address [facility] Phone Number [facility] [address] [place] [phone] * Liver Kidney Microsomal (LKM-1) Antibody??(IgG) (04/24/2024 11:23 AM EST) Liver Kidney Microsomal (LKM-1) Antibody IgG <=20.0 <=20.0 U [facility] Comment:Reference Range: <=2 0.0 Negative [...] patients with hepatitis Cinfection.THIS TEST WAS PERFORMED AT:[employer]/[facility] [id number] [place] [address]EAECBOAMINI NICOLAS MD,PHD 04/24/2024 11:2 3 AM EST 04/24/2024 11:23 AM EST Generic External Data Provider LAB BLOOD ORDERAB LES Final Result Performing Organization Address [facility] Co de Phone Number [facility] [address] [place] [phone] * Thyroglobulin Antibodies (04/24/2024 11:23 AM EST) Thyroglobulin Antibodies <1 < or = 1 IU/mL [facility] Comment:THIS TEST WAS PERFOR MED AT:[employer] [address] [address]ORNQCALOK CESPEDES MD 04/24/2024 11:2 3 AM EST 04/24/2024 11:23 AM EST Generic External Data Provider LAB BLOOD ORDERAB LES Final Result Performing Organization Address City/[facility] Co de Phone Number [facility] [address] [place] [phone] * Mitochondrial Antibody with Reflex to Titer (04/24/2024 11:23 AM EST) Mitochondrial Antibodies NEGATIVE NEGATIVE [facility] Comment:THIS TEST WAS PERFOR MED AT:[employer] [place] [phone] CESPEDES MD Mitochondrial Ab Titer TNP [facility] 04/24/2024 11:2 3 AM EST 04/24/2024 11:23 AM EST Generic External Data Provider LAB BLOOD ORDERAB LES Final Result Performing Organization Address [facility] Co de Phone Number [facility] [address] [place] [phone] * (ABNORMAL) Sed Rate by Modified Maryren (04/24/2024 11:23 AM EST) Pathologist [facility] Erythrocyte Sedimentation Rate 33(H) 0 - 15 MM/HR [facility] Comment:Patients with polycy themia and many hemoglobin abnormalitiesmay have depressed sed rates whereas patients with anemiamay have elevated sed rates. 04/24/2024 11:2 3 AM EST 04/24/2024 11:23 AM EST Generic External Data Provider LAB BLOOD ORDERAB LES Final Result Performing Organization Address [facility] Co de Phone Number [facility] [address] [place] [phone] * Prothrombin Time-INR (04/24/2024 11:23 AM EST) Prothrombin Time 12.1 10.9 - 12.4 SEC [facility] INTERNATIONAL NORM RATIO 1.0 0.9 - 1.1 [facility] Comment:INTERNATIONAL NORMAL IZED RATIO (INR) [...] Final Result [facility] [address], [place] [phone] * (ABNORMAL) CBC (04/24/2024 11:23 AM EST) White Blood Count 6.6 4.8 - 10.8 X10*3/uL [facility] Red Blood Count 4.37(L) 4.60 - 5.80 X10*6/uL [facility] Hemoglobin 12.3(L) 14.0 - 18.0 g/dl [facility] Hematocrit 37.5(L) 42.0 - 52.0 % [facility] Mean Corpuscular Volume 85.8 80.0 - 98.0 fL [facility] Mean Corpuscular Hemoglobin 28.1 27.0 - 33.0 pg [facility] Mean Corpuscular HGB Conc 32.8 31.0 - 36.0 g/dl [facility] Red Cell Distribution Width 12.9 11.0 - 16.0 % [facility] Platelet Count 115(L) 160 - 400 X10*3/uL [facility] Mean Platelet Volume 13.0(H) 9.4 - 12.4 fL [facility] NRBC Pct Auto 0.0 0.0 - 0.2 /100WBC [facility] NRBC Abs Auto 0.000 0.0 - 0.012 X10*3/uL [facility] 04/24/2024 11:2 3 AM EST 04/24/2024 11:23 AM EST Generic External Data Provider LAB BLOOD ORDERAB LES Final Result Performing Organization Address [facility] de Phone Number [facility] [address] [place] [phone] * Rheumatoid Factor (04/24/2024 11:23 AM EST) Rheumatoid Factor <13.0 <15.0 IU/mL [facility] 04/24/2024 11:2 3 AM EST 04/24/2024 11:23 AM EST Generic External Data Provider LAB BLOOD ORDERAB LES Final Result Performing Organization Address [facility] Phone Number [facility] [address] [place] [phone] * (ABNORMAL) C-reactive Protein (04/24/2024 11:23 AM EST) Only the most recent of2 resultswithin the time period is included. Pathologist [facility] C Reactive Protein 1.33(H) < or = 0.50 mg/dL [facility] 04/24/2024 11:2 3 AM EST 04/24/2024 11:23 AM EST Generic External Data Provider LAB BLOOD ORDERAB LES Final Result Performing Organization Address [facility] de Phone Number [facility] [address] [place] [phone] * COLLETTE Screen,IFA, with Reflex to Titer and Pattern (04/24/2024 11:23 AM EST) Anti Nuclear Antibody Screen NEGATIVE NEGATIVE [facility] Comment:COLLETTE IFA is a first [...] clinicallysuspected inflammatory myopathies.AC-0: NegativeInternational Consensus on COLLETTE Patterns(https://doi.org/10.1515/vmni-2771-6080)For additional information, please refer tohttp://education.[employer]/faq/FDP445(This link is being provided for informational/educational purposes only.)THIS TEST WAS PERFORMED AT:[employer] [place] [address]RPJTSALOK CESPEDES MD COLLETTE Titer TNP [facility] COLLETTE Pattern [facility] COLLETTE TITER 2 (REF LAB) [facility] COLLETTE Pattern 2 [facility] COLLETTE TITER 3 [facility] COLLETTE PATTERN 3 [facility] 04/24/2024 11:2 3 AM EST 04/24/2024 11:23 AM EST us Generic External Data Provider LAB BLOOD ORDERAB LES Final Result [facility] [address] [place] [phone] * Hemoglobin A1c (04/24/2024 11:23 AM EST) Hemoglobin A1c 6.0 <6.0 % [facility] Comment:Hemoglobin A1C Refer ence Range Adults: 4.8 - 6.0 % Non diabetic: < 6.0 % Goal: < 7.0 %Additional Action Suggested: > 8.0 %Note: Hemoglobin A1c results are invalid for patients with abnormal amounts of HbF. Blood transfusions may impact the HbA1c concentration in the patient sample. Estimated Average Glucose 126 mg/dL [facility] Comment:eAG = Estimated ave rage glucose which is %A1C expressed asaverage glucose, using the formula of the N7E-EdhxaziAtbjigl Glucose study (ADAG), Diabetes Care, Vol.31,#8,Dec. 2007 04/24/2024 11:2 3 AM EST 04/24/2024 11:23 AM EST Generic External Data Provider LAB BLOOD ORDERAB LES Final Result Performing Organization Address [facility] Phone Number [facility] [address] [place] [phone] * (ABNORMAL) Immunoglobulin A (04/24/2024 11:23 AM EST) Immunoglobulin A 474(A) 47 - 310 mg/dL [facility] Comment:THIS TEST WAS PERFOR MED AT:[employer] [place] [phone] CESPEDES MD 04/24/2024 11:2 3 AM EST 04/24/2024 11:23 AM EST Generic External Data Provider LAB BLOOD ORDERAB LES Final Result Performing Organization Address [facility] Phone Number [facility] [address] [place] [phone] * Ferritin (04/24/2024 11:23 AM EST) Pathologist [facility] Ferritin 117 20 - 250 ng/mL [facility] 04/24/2024 11:2 3 AM EST 04/24/2024 11:23 AM EST Generic External Data Provider LAB BLOOD ORDERAB LES Final Result Performing Organization Address [facility] de Phone Number [facility] [address] [place] [phone] * Lipid Panel, Standard (04/24/2024 11:23 AM EST) Triglycerides 132 <150 mg/dL [facility] Comment:Desirable Triglyceri de: less than 150 mg/dLBorderline High Triglyceride 150-199 mg/dLHigh Triglyceride: 200-499 mg/dLVery High Triglyceride: greater than or equal to 5OO mg/dL Cholesterol 165 <200 mg/dL [facility] Comment:Desirable Cholestero l: less than 200 mg/dLBorderline High Cholesterol: 200-239 mg/dLHigh Cholesterol: greater than 239 mg/dL LDL Cholesterol Calculated 91 <100 mg/dL [facility] Comment:Desirable LDL: less than 100 mg/dLNear Optimal/Above Optimal LDL: 110- 129 mg/dLBorderline High LDL: 130-159 mg/dLHigh LDL: 160-189 mg/dLVery High LDL: greater than or equal to 190 mg/dL HDL Cholesterol 48 >40 mg/dL [facility] Comment:Desirable HDL: great er than 40 mg/dL Note: This HDL assay may give artificially low results in patients with liver disease. 04/24/2024 11:2 3 AM EST 04/24/2024 11:23 AM EST us Generic External Data Provider LAB BLOOD ORDERAB LES Final Result [facility] [address] [place] [phone] * (ABNORMAL) Comprehensive Metabolic Panel (04/24/2024 11:23 AM EST) Sodium 140 135 - 145 mmol/L [facility] Potassium 4.1 3.3 - 5.1 mmol/L [facility] Chloride 102 96 - 108 mmol/L [facility] Carbon Dioxide 27 22 - 29 mmol/L [facility] Anion Gap 15 12 - 20 [facility] Urea Nitrogen (BUN) 20(H) 9 - 16 mg/dL [facility] Creatinine, Serum 1.17 0.5 - 1.4 mg/dL [facility] Estimated Glomerular Filt Rate >60 [facility] Comment:Chronic Kidney Disea se: Estimated GFR < 60 mL/min/1.96j2Hzoaqs Kidney Disease: Estimated GFR < 15 mL/min/1.73m2 Glucose 175(H) 60 - 115 mg/dL [facility] Calcium 9.0 8.4 - 10.2 mg/dL [facility] Bilirubin, Total 0.8 0.0 - 1.0 mg/dL [facility] Aspartate Amino Transferase 25 5 - 37 U/L [facility] Alanine Aminotransferase 21 0 - 40 U/L [facility] Total Protein 7.1 6.5 - 8.0 g/dL [facility] Albumin Level 3.6 3.5 - 5.0 g/dL [facility] Alkaline Phosphatase 78 39 - 117 U/L [facility] 04/24/2024 11:2 3 AM EST 04/24/2024 11:23 AM EST us Generic External Data Provider LAB BLOOD ORDERAB LES Final Result Performing Organization Address City/State/[facility] Co de Phone Number [facility] [address] [place] [phone] * MR Hand w/o Contrast Left (04/19/2024 1:35 PM EST) Anatomical Region Laterality Modality Upper Extremities, Hand Left Magnetic Resonance 04/19/2024 1:35 PM EST Narrative 05/05/2024 9:24 PM EST ? [facility] ?[address] ?[place] [address] ? Magnetic Resonance Report ? Signed ? Patient: Ross Navarrete ?MR#: [id number] ?? 613 ? : 1980 ?Acct:[id number] ? Age/Sex: 43 / M ?ADM Date: 04/19/24 ? Loc: HO.MRI ? Attending Dr: Lorenza Up MD ? Ordering Physician: Lorenza Up MD ?? Date of Service: 04/19/24 ?? Procedure(s): MR hand LT wo con ?? Accession Number(s): [id number] ? cc: Lorenza Up MD; SOFIA MITCHELL [...] Minor MD ??05/05/2024 09:21 PM EST ?? [facility] ? Dictated By: ?Gino Minor MD ? Signed By: ?<Electronically signed by Gino Minor MD in OV> ?05/05/242120 ? DD/ 1335 ? TD/TT: 04/19/24 1400 ? Computed Tomography Technologist: SR ? Procedure Note Roseanne, Image - 05/05/2024 [place] [address] Magnetic Resonance Report Signed Patient: Ross Navarrete LMR#: [id number] 613 : 1980Acct:[id number] Age/Sex: 43 / MADM Date: 04/19/24 Loc: HO.MRI Attending Dr: Lorenza Up MD Ordering Physician: Lorenza Up MD Date of Service: 04/19/24 Procedure(s): MR hand LT wo con Accession Number(s): [id number] cc: Lorenza Up MD; SOFIA MITCHELL NP [...] 05/05/24 2121 DD/ 1335 TD/TT: 04/19/24 1400 Computed Tomography Technologist: [facility] External Provider IMG MRI PROCEDURES Edited Result - Final * MR Hand w/o Contrast Right (04/19/2024 1:00 PM EST) Anatomical Region Laterality Modality Upper Extremities, Hand Right Magnetic Resonance 04/19/2024 1:00 PM EST Narrative 05/05/2024 9:20 PM EST ? [facility] ?[address] ?[place] [address] ? Magnetic Resonance Report ? Signed ? Patient: Navarrete,Ross L ?MR#: [id number] ?? 613 ? : 1980 ?Acct:[id number] ? Age/Sex: 43 / M ?ADM Date: 11/22/24 ? Loc: HO.MRI ? Attending Dr: Lorenza Up MD ? Ordering Physician: Lorenza Up MD ?? Date of Service: 04/19/24 ?? Procedure(s): MR hand RT wo con ?? Accession Number(s): [id number] ? cc: Lorenza Up MD; SOFIA MITCHELL [...] ??Gino Minor MD ??05/05/2024 09:17 PM EST ? Dictated By: ?Gino Minor MD ? Signed By: ?<Electronically signed by Gino Minor MD in OV> ?05/05/24 2117 ? DD/ 1300 ? TD/TT: 04/19/24 1330 ? Computed Tomography Technologist: SR ? Procedure Note Donmelbajonoabelter, Image - 05/06/[address] [address] Magnetic Resonance Report Signed Patient: Ross Navarrete R#: [id number] 613 : 1980Acct:[id number] Age/Sex: 43 / MADM Date: 04/19/24 Loc: HO.MRI Attending Dr: Lorenza Up MD Ordering Physician: Lorenza Up MD Date of Service: 04/19/24 Procedure(s): MR hand RT wo con Accession Number(s): [id number] cc: Lorenza Up MD; SOFIA MITCHELL NP [...] signed by Gino Minor MD in OV> 05/05/247 DD/ 1300 TD/TT: 04/19/24 1330 Computed Tomography Technologist: [facility] External Provider IMG MRI PROCEDURES Edited Result - Final * US Scrotum (04/11/2024 1:30 PM EST) Anatomical Region Laterality Modality Body Ultrasound 04/11/2024 1:30 PM EST Narrative 06/07/2024 8:41 AM EST ? [place] [facility] ?[address] ?[place] [address] ? Ultrasound Report ? Signed ? Patient: Navarrete,Ross L ?MR#: [id number] ?? 613 ? : 1980 ?Acct:[id number] ? Age/Sex: 43 / M ?ADM Date: 04/11/24 ? Loc: HO.US ? Attending Dr: Sofia Mitchell NP ? Ordering Physician: SOFIA MITCHELL NP ?? Date of Service: 04/11/24 ?? Procedure(s): US scrotum ?? Accession Number(s): [id number] ? cc: SOFIA MITCHELL NP ? EXAMINATION: [...] Mcdaniels MD in OV> ?06/07/24 0838 ? DD/ 1330 ? TD/TT: 04/11/24 1400 ? Computed Tomography Technologist: ? Procedure Note Roseanne, Maria T - 06/07/2024 [place] [address] Ultrasound Report Signed Patient: Ross Navarrete LMR#: [id number] 613 : 1980Acct:[id number] Age/Sex: 43 / MADM Date: 04/11/24 Loc: HO.US Attending Dr: Sofia Mitchell NP Ordering Physician: SOFIA MITCHELL NP Date of Service: 04/11/24 Procedure(s): US scrotum Accession Number(s): [id number] cc: SOFIA MITCHELL NP EXAMINATION: US SCROTUM [...] 06/07/24 0838 DD/ 1330 TD/TT: 04/11/24 1400 Computed Tomography Technologist: us Sofia Mitchell ANP IMG US PROCEDURES Final Result * HIV-1/2 Antigen and Antibodies, Fourth Generation, with Reflexes (12/13/2023 11:48 AM EDT) HIV AB/AG Nonreactive Nonreactive [facility] Comment:HIV-1 p24 Ag and/or HIV-1/HIV-2 Ab not detected.A test result that is nonreactive does not exclude thepossibility of exposure to or infection with HIV-1 and/orHIV-2. Nonreactive results in this assay for individualswith prior exposure to HIV-1 and/or HIV-2 may be due toantigen and antibody levels that are below the limit ofdetection of this assay.The SmartStart HIV Ag/Ab Combo assay result andsupplemental assay results should be interpreted inconjunction with the patient's clinical presentation,history and other laboratory results. If the results areinconsistent with clinical evidence, additional testing issuggested to confirm the result. Blood Venous blood specimen / Unknown 12/13/2023 11:48 AM EDT 12/13/2023 12:51 PM EDT Sofia Mitchell [facility] BLOOD ORDERABLES Final Resul t Performing Organization Address City/[facility]/ZIP Co de Phone Number [facility] [address] [place] [phone] * Hepatitis C Antibody with Reflex to HCV, RNA, Quantitative, Real-Time PCR (10/11/2023 6:20 AM EDT) Hepatitis C Antibody Nonreactive Nonreactive [facility] Comment:Antibodies to HCV no t detected; does not exclude early acuteHCV infection. Blood Venous blood specimen / Unknown 10/11/2023 6:20 AM EDT 10/11/2023 6:20 AM EDT Sofia Mitchell [facility] BLOOD ORDERABLES Final Resul t Performing Organization Address City/[facility]/ZIP Co de Phone Number [facility] [address] [place] [phone] from Last 3 Months or Most Recently Relevant to Health Maintenance Insurance [facility] C3 HSN [facility] MEDICAID STAND ADULT Care Teams Basket Sorter Relationship Specialty Start Date End Date Sofia Mitchell ANP [address] [place] [address] PCP - General Family Medicine 01/18/22
--- OUTSIDE RECORDS SUMMARY | 2024-07-01 16:07 | XMS_ITS | Encounter Summary ---
Author Organization [employer] Address [address] [facility] 7t [place] [address] Care Team Providers Care Motel Manager Name Role Phone Naheed Zaman JOSIAH Primary Care Provider [phone] Reason for Visit * Reason Comments Med Refill Encounter Details Date Type Department Care Team ([facility] st Contact Info) Description 06/26/2024 Refill [facility] [address] [place] [address] Heidy Taylor MD [address] [place] [address] Chronic low back pain without sciatica, unspecified [...] the past 12 months, has t he [employer], gas, oil or water company threatened to [...] Description 07/10/2024 2:00 PM EST Office Visit [facility] [address] [place] [address] Naheed Zaman ANP [address] [place] [address] 07/25/2024 3:00 PM EST Office Visit [facility] [address] [place] [address] Rut Branham MD [address] [place] [address] 07/30/2024 9:00 AM EST Office Visit [facility] ADULT DENTAL [address] [place] [address] Zay Schmidt DDS [address] [place] [address] documented as of this encounter Visit Diagnoses Diagnosis Chronic low back pain without sciatica, unspecified back pain laterality documented in this encounter Additional Health Concerns Assessment Noted Time PHQ-9 Depression Total Score: 25 024 8:12 AM EDT documented as of this encounter Care Teams Motel Manager Relationship Specialty Start Date End Date aNheed Zaman ANP [address] [place] [address] PCP - General Family Medicine 01/18/22 documented as of this encounter
--- OUTSIDE RECORDS SUMMARY | 2024-07-01 16:07 | XMS_ITS | Encounter Summary ---
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 male. HPI T2DM exam. Last A1c 6.0% (04/24/25). Patient does not measure BSL at home. Patient reports blurry vision both eyes (OU) x 1 year. Patient reports pain and eye strain both eyes (OU). YVONNE: 15+ years ago Last edited by Kaitlyn Burk, OD on 06/27/2024 11:58 AM. Current Outpatient Medications Medication Sig Dispense Refill Alcohol Swabs (Alcohol Prep) 70 % pads USE FOUR TIMES DAILY WITH INSULIN ammonium lactate (Amlactin) 12 % cream Apply topically if needed for dry skin. 385 g 0 atorvastatin (Lipitor) 10 MG tablet Take 1 tablet (10 mg) by mouth at bedtime. 90 tablet 3 beta carotene (vitamin A) 3 MG (28532 UT) capsule TAKE 2 CAPSULES BY MOUTH EVERY DAY FOR 2 WEEKS betamethasone valerate (Valisone) 0.1 % cream Apply topically if needed in the morning and at bedtime (dryness). 45 g 2 Blood Glucose Monitoring Suppl (FreeStyle [place] Lite) w/Device kit TEST BLOOD SUGAR FOUR [...] following use. 473 mL 0 Continuous Glucose Maintenance And Repair Worker (FreeStyle Casey 2 Fallon) device Scan sensor every 8 hours 1 each 0 Continuous Glucose Sensor (FreeStyle Casey 2 Sensor) [facility] Apply 1 sensor every 14 days 2 [...] tablet 0 FLUoxetine (PROzac) 40 MG capsule TAKE 1 CAPSULE BY MOUTH EVERY DAY 30 capsule 2 FREESTYLE LITE test strip [...] sugar 3 times daily 100 each 12 Lantus SoloStar 100 UNIT/ML pen INJECT 55 UNITS SUBCUTANEOUSLY EVERY NIGHT 15 mL 3 Lidoderm 5 % patch APPLY 1 PATCH TOPICALLY DAILY LEAVE ON MOST PAINFUL AREA FOR UP TO 12 HRS lisinopril 20 MG tablet Take 1 tablet (20 mg) by mouth Once per day. 90 tablet 1 liver oil-zinc oxide (Desitin) 40 % ointment Apply topically if needed in the morning and at bedtime for irritation. 56 g 0 meloxicam (Mobic) 15 MG tablet TAKE 1 TABLET BY MOUTH EVERY DAY NEEDED (for pain) 30 tablet 3 metoclopramide (Reglan) 10 MG [...] days. 84 Film 0 Sure Comfort Pen Century 31G X 5 MM misc USE FOUR TIMES DAILY WITH INSULIN thiamine (Vitamin B-1) 50 MG tablet Take 50 mg by mouth in the morning. TRUEplus Lancets 33G misc TEST BLOOD SUGAR FOUR TIMES DAILY Vitron-C 65-125 MG tablet Take 1 tablet by mouth at bedtime. No current facility-administered medications for this visit. Past Medical History: Diagnosis Date Arthritis Asthma Diabetes mellitus (CMS/HCC) Past Surgical History: Procedure Laterality Date APPENDECTOMY HERNIA REPAIR Family History Problem Relation Name Age of Onset Cancer Mother bladder Cancer Maternal Grandfather colon Tobacco Use: Low Risk (06/27/2024) Tobacco Smoking Tobacco Use: Never Smokeless Tobacco Use: Never Passive Exposure: Never Allergies Allergen Reactions Shellfish Allergy ROS Positive for: Endocrine, Eyes Negative for: Constitutional, Gastrointestinal, Neurological, Skin, Genitourinary, Musculoskeletal,HENT, Cardiovascular, Respiratory, Psychiatric, Allergic/Imm, Heme/Lymph Last edited by Kaitlyn Burk, KVNG on 06/27/2024 10:53 AM. Base Eye Exam Visual Acuity (Snellen - Linear) Right Left Both Dist sc 20/25 +1 20/25 -2 Near sc 20/25-2 Tonometry (iCare , 11:10 AM) Right Left Pressure 21 19 Pupils Pupils APD Right PERRL None Left PERRL None Visual Marroquin (Counting fingers) Left Right Full Full Extraocular Movement Right Left Full Full Neuro/Psych Oriented x3: Yes Mood/Affect: Normal Dilation Both eyes: 1.0% tropicamide @ 11:22 AM Slit Lamp and Fundus Exam External Exam Right Left External Normal Normal Slit Lamp Exam Right Left Lids/Lashes Clean and clear, floppy eyelids Clean and clear, floppy eyelids Conjunctiva/Sclera White and quiet White and quiet Cornea Clear Clear Anterior Chamber Deep and quiet, angles open gr 3 Deep and quiet, angles open gr 3 Iris Round and reactive, (-) NVI Round and reactive, (-) NVI Lens Clear Clear Fundus Exam Right Left Vitreous Clear Clear Disc [place] and healthy, (-) NVD [place] and healthy, (-) NVD C/D Ratio Vertical 0.40 0.40 C/D Ratio Horizontal 0.40 0.40 Macula Flat with even pigmentation, (-) CME Flat with even pigmentation, (-) CME Vessels Normal course and caliber, (-) NVE Normal course and caliber, (-) NVE Periphery No holes/tears/detachments 360 No holes/tears/detachments 360 Refraction Manifest Refraction (Subjective) Sphere Cylinder [place] Dist VA Add Right +1.00 -1.00 105 20/20 Left +0.75 -0.25 085 20/20 Manifest Refraction #2 (Subjective) Sphere Cylinder [place] Dist VA Add Right +1.00 -0.75 105 20/20 +1.00 Left +0.75 -0.25 085 20/20 +1.00 Near VA Both: 20/20 Final Rx Sphere Cylinder [place] Add Right +1.00 -0.75 105 +1.00 Left +0.75 -0.25 085 +1.00 Expiration Date: 06/27/2025 Assessment and Plan Diagnoses and all orders for this visit: Type 2 diabetes mellitus without ophthalmic manifestations (CMS/HCC) - No diabetic retinopathy or diabetic macular edema both eyes (OU) - Discussed importance of tight blood glucose control, medication compliance and regular follow up with PCP Presbyopia - Dispensed updated spec Rx RTC in 1 year for comprehensive eye exam or soon as needed Kaitlyn Burk, OD 06/27/2024, 11:58 AM Cook Night Source: __ None _x_ Bilingual Staff __ Qualified Staff Superintendent Police __ Telephone Cook Night; ID# __ Cook Night brought by patient (family member, friend, THERAPEUTIC DIETITIAN, etc) __ In person beater head __ Ipad Cook Night; ID#: Language Spoken During Exam: Colombian documented in this encounter Plan of Treatment Upcoming Encounters Date Type Department Care Team ([facility] st Contact Info) Description 07/10/2024 2:00 PM EST Office Visit [facility] [address] [place] [address], [place] [address] Naheed Zaman ANP [address] [place] [address] 07/25/2024 3:00 PM EST Office Visit [facility] [address] [place] [address] Rut Branham MD [address] [place] [address] 07/30/2024 9:00 AM EST Office Visit [facility] [address] [place] [address] Zay Schmidt DDS [address] [place] [address] documented as of this encounter Visit Diagnoses Diagnosis Type 2 diabetes mellitus without ophthalmic manifestations (CMS/HCC)- Primary Presbyopia documented in this encounter Additional Health Concerns Assessment Noted Time PHQ-9 Depression Total Score: 25 024 8:12 AM EDT documented as of this encounter Care Teams Rn Digestive Relationship Specialty Start Date End Date Naheed Zaman ANP [address] [place] [phone] PCP - General Family Medicine 01/18/22 documented as of this encounter
--- OUTSIDE RECORDS SUMMARY | 2024-07-01 16:07 | XMS_ITS | Encounter Summary ---
Author Organization [employer] Address [address] [facility] 7t [place] [address] Care Team Providers Care Casino Floor Person Name Role Phone Naheed Zaman Primary Care Provider [phone] Reason for Visit * Reason Comments Med Refill Encounter Details Date Type Department Care Team ([facility] st Contact Info) Description 06/09/2024 Refill [facility] [address] [place], [place] [phone] Naheed Zaman ANP [address] [place] [address] Social History Tobacco Use Types Packs/Day Years [...] Description 07/10/2024 2:00 PM EST Office Visit [facility] [address] [place] [address] Naheed Zaman ANP [address] [place] [address] 07/25/2024 3:00 PM EST Office Visit [facility] [address] [place] [address] Rut Branham MD [address] [place] [address] 07/30/2024 9:00 AM EST Office Visit [facility] ADULT D[facility] [address] [place] [address] Zay Schmidt DDS [address] [place] [address] documented as of this encounter Visit Diagnoses Not on filedocumented in this encounter Additional Health Concerns Assessment Noted Time PHQ-9 Depression Total Score: 25 024 8:12 AM EDT documented as of this encounter Care Teams Casino Floor Person Relationship Specialty Start Date End Date Naheed Zaman ANP [address] [place] [address] PCP - General Family Medicine 01/18/22 documented as of this encounter
--- OUTSIDE RECORDS SUMMARY | 2024-07-01 16:08 | XMS_ITS | Encounter Summary ---
Author Organization [employer] Address [address] [facility] 7t [place] [address] Care Team Providers Care Animal Hospital Clerk Name Role Phone Junie Naheed RAHMAN Primary Care Provider [phone] Reason for Visit * Reason Onset Date Comments [facility] 12/12/2023 Encounter Details Date Type Department Care Team ([facility] st Contact Info) Description 12/12/2023 Telephone [facility] [address] [place] [address] Zay Schmidt DDS [address] [place] [address] [facility] Social History Tobacco Use Types Packs/Day [...] dental relief. Pain Management office phone number [phone] documented in this encounter Plan of Treatment Upcoming Encounters Date Type Department Care Team (Late st Contact Info) Description 07/10/2024 2:00 PM EST Office Visit [facility] [address] [place] [address] Naheed Zaman ANP [address] [place] [address] 07/25/2024 3:00 PM EST Office Visit [facility] [address] [place] [address] Rut Branham MD [address] [place] [address] 07/30/2024 9:00 AM EST Office Visit [facility]ULT [facility] [address] [place] [address] Zay Schmidt DDS [address] [place] [address] documented as of this encounter Visit Diagnoses Not on filedocumented in this encounter Additional Health Concerns Assessment Noted Time PHQ-9 Depression Total Score: 23 024 3:25 PM EDT documented as of this encounter Care Teams Animal Hospital Clerk Relationship Specialty Start Date End Date Naheed Zaman ANP [address] [place] [address] PCP - General Family Medicine 01/18/22 documented as of this encounter
--- OUTSIDE RECORDS SUMMARY | 2024-07-01 16:08 | XMS_ITS | Encounter Summary ---
Author Organization [employer] Address [address] [facility] 7t [place] [address] Care Team Providers Care Manager Field Investigations Name Role Phone Naheed Zaman Primary Care Provider [phone] Reason for Visit * Reason Onset Date Comments Durable Medical Equipment 10/04/2022 Encounter Details Date Type Department Care Team (Late st Contact Info) Description 10/04/2022 Telephone [facility] [address] [place] [address] Naheed Zaman ANP [address] [place] [address] Durable Medical Equipment Social History Tobacco Use [...] for Compressions socks. Please contact pt at [phone] documented in this encounter Plan of Treatment Upcoming Encounters Date Type Department Care Team (Late st Contact Info) Description 07/10/2024 2:00 PM EST Office Visit [facility] [address] [place] [address] Naheed Zaman ANP [address] [place] [address] 07/25/2024 3:00 PM EST Office Visit [facility] [address] [place] [address] Rut Branham MD [address] [place] [address] 07/30/2024 9:00 AM EST Office Visit [facility] [address] [place] [address] Zay Schmidt DDS [address] [place] [address] documented as of this encounter Visit Diagnoses Not on filedocumented in this encounter Care Teams Manager Field Investigations Relationship Specialty Start Date End Date Naheed Zaman ANP [address] [place] [address] PCP - General Family Medicine 01/18/22 documented as of this encounter
--- OUTSIDE RECORDS SUMMARY | 2024-07-01 16:08 | XMS_ITS | Encounter Summary ---
Author Organization [employer] [facility] [employer] Address [address] [facility] 7t [place] [address] Care Team Providers Care Refinery Operator Helper Name Role Phone Naheed Zaman JOSIAH Primary Care Provider [phone] Encounter Details Date Type Department Care Team ([facility] st Contact Info) Description 06/04/2024 9:40 AM EST Office Visit [facility] [address] [place] [address] Fermin Steward MD [address] [place] [address] Chest pain, unspecified type (Primary Dx); Acute [...] with translation. EKG and vitals obtained with [facility] Pleitez. Report given to Dr. Steward, whom is to see pt next. * Fermin Steward MD - 06/04/2024 9:40 AM ESTAssociated Order(s): ECG 12 lead Post-Procedure Diagnose(s): Chest pain, unspecified type Subjective Patient ID: Ross Navarrete is a 43 y.o. male. Ambulance Assistant: Wayne HOLLINGSWORTH Ross has 2 week h/o [...] Tried meloxicam, gabapentin. [place] [facility]. Lives with . Not employed. Never [...] 06/04/2024 9:40 AM EST Expect called to [facility] via private car per Dr. Steward. Verbal report given to Judi, whom verbalized understanding. Judi/ [facility] to F/U as needed. documented in this encounter Plan of Treatment Upcoming Encounters Date Type Department Care Team (Late st Contact Info) Description 07/10/2024 2:00 PM EST Office Visit [facility] [address] [place] [address] Naheed Zaman ANP [address] [place] [address] 07/25/2024 3:00 PM EST Office Visit [facility] [address] [place] [address] Rut Branham MD [address] [place] [address] 07/30/2024 9:00 AM EST Office Visit [facility] [address] [place] [phone] Zay Schmidt DDS [address] [place] [phone] Pending Results Name Type Priority Associated Diagnoses [...] documented as of this encounter Care Teams Refinery Operator Helper Relationship Specialty Start Date End [place] [address] PCP - General Family Medicine 01/18/22 documented as of this encounter
--- OUTSIDE RECORDS SUMMARY | 2024-07-01 16:08 | XMS_ITS | Encounter Summary ---
Author Organization [facility] Address [address] [facility] 7t [place] [address] Care Team Providers Care Systems Developer Name Role Phone Naheed Zaman Primary Care Provider [phone] Encounter Details Date Type Department Care Team (Late Contact Info) Description 07/28/2022 Abstract [facility] [address] [place], [place] [phone] Zay Schmidt DDS [address] [place] [address] Social History Tobacco Use Types Packs/Day Years [...] Recorded In the last 10 days, have mekhi u been in contact with someone who was confirmed or suspected to have Coronavirus/COVID-19? No / Unsure 07/28/2022 2:14 PM EST documented as of this encounter Plan of Treatment Upcoming Encounters Date Type Department Care Team (Late Contact Info) Description 07/10/2024 2:00 PM EST Office Visit [facility] [address] [place] [address] Naheed Zaman ANP [address] [place] [address] 07/25/2024 3:00 PM EST Office Visit [facility] [address] [place] [address] Rut Branham MD [address] [place] [address] 07/30/2024 9:00 AM EST Office Visit [facility] [address] [place] [address] Zay Schmidt DDS [address] [place] [address] documented as of this encounter Visit Diagnoses Not on filedocumented in this encounter Care Teams Systems Developer Relationship Specialty Start Date End Date Naheed Zaman ANP [address] [place] [phone] PCP - General Family Medicine 01/18/22 documented as of this encounter
== END 2024-07-01 15:12 | disposition home or self-care (01) ==
PROVIDERS: PCP Nurse Practitioner Primary Care; Visit Provider Anesthesiology
DX: M19.012 Primary osteoarthritis, left shoulder (principal); E66.01 Morbid (severe) obesity due to excess calories; M25.512 Pain in left shoulder
CPT/HCPCS: 99213

== ENCOUNTER → 2024-07-01 14:27 | Outpatient (BNVA) | payer MEDICAID, SELFPAY | PROVIDERS: PCP Nurse Practitioner Primary Care; Visit Provider Anesthesiology | DX: M19.012 Primary osteoarthritis, left shoulder (principal); E66.01 Morbid (severe) obesity due to excess calories; Z68.44 Body mass index [BMI] 60.0-69.9, adult | CPT/HCPCS: 99212 ==

== ENCOUNTER 2024-07-03 13:28 | Outpatient (REF) | payer MEDICAID, SELFPAY ==
--- OUTSIDE RECORDS SUMMARY | 2024-07-03 14:51 | XMS_ITS | Clinical Summary ---
Author Organization [address] [facility] Address [address] [place] [address] Phone Care Team Providers Care R Developer Name Role Phone Naheed Zaman NP Primary Care Provider [phone] Allergies Active Allergy Reactions Criticality Noted Date [...] hypertension 05/10/2017 Overview (04/17/2024): Mild, ECHO 10/21/10 [facility], EF 65-70% HTN [...] myelopathy or radiculopathy 04/26/2017 Overview (04/17/2024): Saw [facility] Rheumatology BETSY (obstructive sleep apnea) 04/26/2017 Overview (04/17/2024): Polysomnography 08/05/2009, [facility] :On cpap 14 cm H2O 10/23/2017 Home Sleep Study insufficient data. 08/2018 - Pulm ordered split night study. Diabetes mellitus type 2 with neurological manif estations 04/26/2017 CTS (carpal tunnel syndrome) 04/26/2017 Encounters Date Type Department Care Team Description 06/03/2024 2:30 PM EST Consult Orthopedic Surgery - [address] [phone] Bg Yeager, DPM Ingrowing nail [...] DX:History of acute post-streptococcal glomerulonephritis; COMMENT: Hospitalized [facility] with anasarca/ KUNAL 2010, streptolysin titer 1060, kidney bx, Followed in past by Dr Zapata, NSAIDS not recommended HTN (hypertension) 05/10/2017 DX:HTN (hyper tension) Morbid obesity with BMI of 6 0.0-69.9, adult (CMS/HCC) 04/26/2017 DX:Morbid obesity with BMI o f 60.0-69.9, adult ([facility]) BETSY (obstructive sleep apnea) 04/26/2017 DX :BETSY (obstructive sleep apnea); COMMENT: Polysomnography 08/05/2009, [facility] :On cpap 14 cm H2O Pulmonary hypertension (CMS/HCC) 05/10/2017 DX:Pulmonary hypertension (HCC); COMMENT: Mild, ECHO 10/21/10 [facility], EF 65-70% Otherwise [...] egion without myelopathy or radiculopathy; COMMENT: Saw [facility] Rheumatology Family History [...] PM EDT Office Visit Orthopedic Surgery - [place] [address] [phone] Bg Yeager, DPM [address] [address] Health Maintenance Due Date Last Done Comments [...] * Urine Albumin Creatinine Ratio (02/27/2020) Pathologist [facility] Urine Albumin Creatinine Ratio Abstracted Historical Provider MD PETER ROMO E * Annual BMP Blood Test (02/27/2020) Pathologist [facility] Annual BMP Blood Test Abstracted Historical Provider MD PETER ROMO E * (ABNORMAL) Hemoglobin A1c (02/27/2020) [facility] Hemoglobin A1C 6.9(A) 6.5 % Blood Venous blood specimen / Unknown Historical Provider LAB BLOOD ORDERAB LES * Lipid panel (02/27/2020) Pathologist [facility] LDL/HDL Ratio 3 0 - 4 Triglycerides 91 0 - 150 mg/dL Cholesterol 145 0 - 200 mg/dL HDL 58 40 mg/dL LDL Cholesterol 69 0 - 100 mg/dL Blood Venous blood specimen / Unknown Historical Provider LAB BLOOD ORDERAB LES * Hepatitis C Screening (06/22/2017) [facility] Hepatitis C Screening Abstracted Historical Provider HEALTH MAINTENANC E from Last 3 Months or Most Recently Relevant to Health Maintenance Care Teams R Developer Relationship Specialty Start Date End Date Naheed Zaman SCALLOP SHUCKER [address] [phone] PCP - General 02/21/24
--- OUTSIDE RECORDS SUMMARY | 2024-07-03 14:51 | XMS_ITS | Clinical Summary ---
Author Organization [facility] Address [address] [place] [address] Care Team Providers Care Counter Waiter Name Role Phone Unavailable Primary Care Provider [...] recurrent major depressive disorder, with psychotic features ([facility]) 06/10/2024 Assessment & Plan (06/18/2024 11:18 AM EST): Patient refused to be seen, [place] call center team leader was notified. Assessment & Plan (06/10/2024 5:36 [...] connected on video call until arrival of [place] Police with recommendation to section patient to hospital Encounters Date Type Department Care Team Description 05/23/2024 11:30 AM EST Behavioral Health Visit [facility] [address] [place] [phone] Leslie Garzon APRN Severe episode of recurrent major depressive disorder, with psychotic features (HCC-CMS) (Primary Dx) 05/16/2024 3:00 PM EST Behavioral Health Visit [facility] [address] [place] [phone] Leslie Garzon APRN Severe episode of recurrent [...] - 19 + 3-dose series) 11/14/2023 10/17/2023 Sid-ENDFK-21 ( season) 2024 021, 12/10/2020 Imm-Influenza (#1) 2024 02/27/2012, 01/27/2011 Alcohol and Drug Screen 05/29/2024 Diabetes Screening 04/24/2025 04/24/2024, 0 10/11/2023, 12/14/2021, Additional history exists Lipid Screening 04/24/2029 04/24/2024, 05/29, 02/27/2020 Imm-DTaP/Tdap/Td (3 - Td or Tdap) 10/16/2033 024, 03/15/2011 Hepatitis C Screening Completed 10/11/2023 HIV Screening Completed 12/13/2023, 11/26, 12/16/2021 Insurance [facility] [place] MEDICAID
--- OUTSIDE RECORDS SUMMARY | 2024-07-03 14:51 | XMS_ITS | Encounter Summary ---
Author Organization [facility] Address [address] [place] [address] Care Team Providers Care Clinical Manager Name Role Phone Junie Naheed Espinosa NP Primary Care Provider [phone] Reason for Visit * Reason Comments Foot Problem Long painful toenail s Encounter Details Date Type Department Care Team (Late st Contact Info) Description 06/03/2024 2:30 PM EST Consult Orthopedic Surgery - [place] [address] [phone] Bg Yeager, DPM [address] [phone] Ingrowing nail (Primary Dx); Dermatophytosis of nail; [...] including gabapentin which he states does help [place] or pretzel twisting machine operator utilized today ID number [id number] ROS: GENERAL: Pt denies nausea, fever, vomiting, [...] Diabetes mellitus type 2 with neurological manifestations ([facility]) CTS (carpal tunnel syndrome) Asthma Acquired pes planus Morbid obesity with BMI of 60.0-69.9, adult ([facility]) SOCIAL HISTORY: Social History Tobacco Use Smoking [...] PM EDT Office Visit Orthopedic Surgery - [place] [address] [phone] Bg Yeager DPM [address] [address] documented as of this encounter Visit Diagnoses [...] uncontrolled documented in this encounter Care Teams Clinical Manager Relationship Specialty Start Date End Date Naheed Zaman NP [address] [place] [phone] PCP - General 02/21/24 documented as of this encounter
[2024-07-03 16:52] LABS: Amphetamine Screen Urine Not Detected (Not Detect); Barbiturates, Urine Not Detected (Not Detect); Benzodiazepines Screen Urine Not Detected (Not Detect); Buprenorphine Scr Positive (Not Detect); Cannabinoid Screen Urine POSITIVE (Not Detect); Cocaine Screen Urine Not Detected (Not Detect); Fentanyl, urine Not Detected (Not Detect); Methadone Screen, Urine Not Detected (Not Detect); Opiate Screen Urine Not Detected (Not Detect); Oxycodone Screen Urine Not Detected (Not Detect); Phencyclidine Screen Urine Not Detected (Not Detect)
[2024-07-04 07:32] LABS: HBS Num1 1.58 mIU/mL (0-7.99); HBc Num1 0.11 S/CO (0.00-0.79); HBsAGNum1 0.35 S/CO (0.00-0.99); Hepatitis A Antibody IgM 0.14 Index (0-0.79); Hepatitis B Core Antibody Nonreactive (Nonreactive); Hepatitis B Surface Antigen Negative (Negative); ~HepC Num1 0.06 S/CO (0.00-0.79); ~Hepatitis A Antibody IgM Nonreactive (Nonreactive); ~Hepatitis B Surface Antibody NONREACTIVE (Nonreactive); ~Hepatitis C Antibody Nonreactive (Nonreactive)
[2024-07-06 03:18] LABS: TS Negative Control Passed; TS Panel A 0; TS Panel B 0; TS Positive Control Passed; TSpotTB Negative (Negative)
== END 2024-07-03 13:29 | disposition home or self-care (01) ==
LOC: HO.HHCL 13:28
PROVIDERS: Student in an Organized Health Care Education/Training Program; Visit Provider Registered Nurse
DX: F41.1 Generalized anxiety disorder (principal); M06.00 Rheumatoid arthritis without rheumatoid factor, unspecified site; Z11.1 Encounter for screening for respiratory tuberculosis; Z11.59 Encounter for screening for other viral diseases
CPT/HCPCS: 36415; 80307; 86481; 86704; 86706; 86709; 86803; 87340

== ENCOUNTER → 2024-07-09 10:41 | Outpatient (BNVA) | payer MEDICAID, SELFPAY | PROVIDERS: PCP Nurse Practitioner Primary Care; Visit Provider Dietitian, Registered | DX: E66.01 Morbid (severe) obesity due to excess calories (principal); E11.69 Type 2 diabetes mellitus with other specified complication; E78.5 Hyperlipidemia, unspecified; Z68.44 Body mass index [BMI] 60.0-69.9, adult | CPT/HCPCS: 97802 ==

== ENCOUNTER → 2024-07-09 10:41 | Outpatient (AMB) | payer MEDICAID, SELFPAY ==
--- NOTE | 2024-07-09 11:12 | MHC.AMNUTRGE ---
VS Expanded 07/09/24 11:15 07/09/24 13:18 Height 5 ft 6 in 5 ft 6 in Weight 388 lb 0.217 oz 388 lb BMI 62.6 62.6 Intake Visit Reasons: Morbid (severe) obesity due to excess calories Allergies seafood Allergy (Severe, Verified 07/01/24 14:57) Swelling Nutrition Presentation Details: Pt presents for MNT for morbid obesity with fatty liver Pt presents with during this appt Pt just wants a list of what to eat and not to eat to prevent cirrhosis Typical meal intake fish - allergic to seafood fruits : 0/d vegetable: 2 x/wk 24 hr food recall 3-7 a coffee with sugar and hazelnut and whip cream breakfast sand egg/miranda/cheese and 2 slices of bread cheese and cracker or cereal with milk: sugary cereal with milk Lunch: rice/pork or pasta w cheese sauce, water or juice or crystal light Dinner: rice/pork chop/water, crystal light Physical activity:limited- uses cane to walk etoh/smoking- denies MVI -no takes vitamin D BS Monitoring Most Recent Diabetes Results: Creatinine 0.98 mg/dL (0.5-1.4) 06/04/24 Blood Urea Nitrogen 17 mg/dL (9-16) H 06/04/24 Sodium 138 mmol/L (135-145) 06/04/24 Potassium 4.2 mmol/L (3.3-5.1) 06/04/24 Chloride 105 mmol/L (96-108) 06/04/24 Carbon Dioxide 28 mmol/L (22-29) 06/04/24 Calcium 9.3 mg/dL (8.4-10.2) 06/04/24 AST 33 U/L (5-37) 10/18/22 ALT 29 U/L (0-40) 10/18/22 Total Protein 7.4 g/dL (6.5-8.0) 10/18/22 Albumin 4.0 g/dL (3.5-5.0) 10/18/22 AKZ-Dvmigzz-Qs.Jeor Equation Height: 5 ft 6 in Weight: 388 lb Resting Metabolic Rate: 2604.29 Calculated Activity Level: Sedentary Calories Needed to Maintain Weight: 3125.15 Diagnosis Nutrition problem #1: food nutri know defi As related to (etiology) #1: diagnosis As evidenced by (sign/symptom) #1: food recall and high BMI (62.6 (07/23)) Monitoring/Goals Nutrition problem monitoring: level of knowledge/skill Learning/Education Readiness to learn: fair Stages of change: pre-contemplation Educational materials provided: Yes (LOW FAT OPTIONS, NUTRITION TO PREVENT CIRRHOSIS ) PFSH Medical History Seronegative spondyloarthropathy Seronegative spondylitis Vitamin D deficiency Elevated C-reactive protein (CRP) Fibromyalgia Polyarthralgia Narcotic dependence Thrombocytopenia Carpal tunnel syndrome Sleep apnea Pre-op evaluation Hx of migraines BETSY on CPAP Pre-op evaluation HTN (hypertension), benign Insulin dependent type 1 diabetes mellitus Morbid obesity Shoulder dislocation Diabetes Surgical History Hx of colonoscopy History of esophagogastroduodenoscopy (EGD) Hx of hernia repair Hx of appendectomy Family History Mother No problems noted. Brother No problems noted. Daughter No problems noted. Daughter No problems noted. Daughter No problems noted. Son No problems noted. Son No problems noted. 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 Assessment & Plan Assessment & Plan (1) Hyperlipidemia associated with type 2 diabetes mellitus: Code(s): E11.69 - Type 2 diabetes mellitus with other specified complication; E78.5 - Hyperlipidemia, unspecified Category: Medical Plan: Wt: 176 Kg ( 07/23 ) Est kcal needs as per MSJ: 3100 (40% carb, 30% protein/fat) Est fluid needs as per 25-30 ml/d: 4400- 5300 Est prot per day as per 1-1.2 g/kg bw: 176- 211 G Recommend fiber intake : 8-10 g per day and gradually increase to 25-28 g per day for women and 35-38 g for men or as tolerated Recommend sodium intake per day : less than 1500 mg less than 2000 mg Educated patient on: ( R = reviewed V = verbalizes understanding N/R = needs review N/A = not applicable Food sources of carbohydrate, adequate serving sizes and its role in various health conditions: R Differences between complex carbohydrates a simple carbohydrates, role of fiber in diet: R Lean protein sources of foods: R Differences between types of fats and role in diet (mono on saturated fat fatty acids, saturated fatty acids, trans fats): R basic Food sources of sodium in salt and healthy modifications for heart health in kidney health: R V R/V Vitamins and minerals: R V N/R Healthy plate method concept: R V N/R Physical activity: Benefits a precaution: R V N/R Hypoglycemia protocol (rule of 15): R V N/R Dietary prevention of Hyperglycemia: R V R/V Patient Instructions: Reduce on sugars/sugary foods and choose fiber rich foods -(bran flakes/cheerios/fiberone/oats) - add fiber to meals by : having salads, adding non starchy vegetables to the meals) -have yogurt in place of ice cream Choose baked instead of fried (poultry/beef/pork/potatoes/starchy vegetables) see meals ideas Coding Level of Care Code Nutr Indiv Intake (87249) Diagnoses Hyperlipidemia associated with type 2 diabetes mellitus E11.69; E78.5 Time Spent (min) 30
[2024-07-09 11:15] VITALS: BMI 62.6
[2024-07-09 13:18] VITALS: BMI 62.6
== END ==
PROVIDERS: PCP Nurse Practitioner Primary Care; Visit Provider Dietitian, Registered
DX: E11.69 Type 2 diabetes mellitus with other specified complication (principal); E78.5 Hyperlipidemia, unspecified

== ENCOUNTER 2024-08-06 09:45 | Emergency (ER) | payer MEDICAID, SELFPAY ==
--- NOTE | ~2024-08-06 | XR_ITS ---
EXAMINATION: XR CHEST CLINICAL INFORMATION: cough COMPARISON: 06/04/2024. TECHNIQUE: Frontal view of the chest was obtained. FINDINGS: The cardiac, hilar, and mediastinal contours are normal. The lungs are clear bilaterally. No pneumothorax or effusion. No focal osseous or soft tissue abnormality. XR/XR chest 1V IMPRESSION: Normal chest. Electronically signed by: Hamzah Mcdaniels MD 08/06/2024 12:40 PM EDT
[2024-08-06 09:53] VITALS: BP 174/78; PULSE 96; RESP 18; TEMP 36.3; O2SAT 97; BMI 65.5
--- NOTE | 2024-08-06 09:59 | ECG_ITS ---
Test Reason : medical clearance Blood Pressure : */* mmHG Vent. Rate : 87 BPM Atrial Rate : 87 BPM P-R Int : 160 ms QRS Dur : 84 ms QT Int : 358 ms P-R-T Axes : 65 34 33 degrees QTcB Int : 430 ms Normal sinus rhythm Normal ECG When compared with ECG of 04-Jun-2024 10:44, No significant change was found Referred By: Generic ED Physician Electronically Signed By: RAMIN HEREDIA
[2024-08-06 10:17] LABS: MANUAL DIFF FLAG NO
[2024-08-06 10:20] LABS: Basophils Percent Auto 0.4 % (0-2); Eosinophils Absolute Auto 0.2 X10*3/uL (0.0-0.4); Eosinophils Percent Auto 2.3 % (0-4); Hematocrit 39.1 % (42.0-52.0); Hemoglobin 13.1 g/dl (14.0-18.0); Imm Gran Abs Auto 0.03 X10*3/uL (0.00-0.03); Imm Gran Pct Auto 0.4 % (0.0-0.4); Lymphocytes Absolute Auto 1.8 X10*3/uL (1.2-4.9); Lymphocytes Percent Auto 24.9 % (20-40); Mean Corpuscular HGB Conc 33.5 g/dl (31.0-36.0); Mean Corpuscular Hemoglobin 28.4 pg (27.0-33.0); Mean Corpuscular Volume 84.8 fL (80.0-98.0); Mean Platelet Volume 11.4 fL (9.4-12.4); Monocytes Absolute Auto 0.4 X10*3/uL (0.1-1.2); Monocytes Percent Auto 4.8 % (2-11); Neutrophils Absolute Auto 4.9 x10*3/uL (2.0-8.3); Neutrophils Percent Auto 67.2 % (45-73); Platelet Count 126 X10*3/uL (160-400); Red Blood Count 4.61 X10*6/uL (4.60-5.80); Red Cell Distribution Width 13.2 % (11.0-16.0); White Blood Count 7.3 X10*3/uL (4.8-10.8)
[2024-08-06 10:28] LABS: Prothrombin Time 11.7 SEC (10.9-12.4)
--- NOTE | 2024-08-06 11:59 | ED_ITS ---
HPI - General Adult General Chief complaint: General Medical Stated complaint: Bleeding in mouth? Time Seen by Provider: 08/06/24 11:07 History of Present Illness HPI narrative: Patient is a 43-year-old male presented today with having blood in his mouth for the last 3 month. Patient said he uses a CPAP machine. There is no dental pain. But has a history of cavities. He is due to see a dentist tomorrow. Also complaining that he has got clots around his mouth he took a picture of it. Patient denies any fever chills. Denies any new chest pain denies any shortness of breath denies any diaphoresis. He is due for a colonoscopy and an endoscopy because of this. Can not get this done because needs to be cleared by Cardiology. Denies any chest pain. He has larger in size he has a history of liver cirrhosis likely secondary to fatty liver. He has a history of diabetes is currently on insulin. He denies being on any blood thinners. Denies being on any iron supplement. He did note his stool was darker in color question black. But it is of a normal consistency. There is no diarrhea. Denies any shortness of breath that is new. Denies any changes in voice. Has a history of fibromyalgia. Has a history of sleep apnea has a history of rheumatoid arthritis is on Humira. History of PTSD. Related Data Home Medications ?Medication ?Instructions ?Recorded ?Confirmed insulin lispro 100 unit/mL 35 unit subcut TID 07/26/21 07/01/24 subcutaneous pen (Humalog KwikPen (U-100) Insulin) buprenorphine 8 mg-naloxone 2 mg 1 film sublingual TID 02/09/22 07/01/24 sublingual film (Suboxone) insulin glargine 100 unit/mL (3 55 unit subcut BEDTIME 04/22/24 07/01/24 mL) subcutaneous pen (Lantus Solostar U-100 Insulin) lidocaine 5 % topical patch 1 patch topical DAILY PRN Pain 05/16/24 07/01/24 (Lidoderm) ammonium lactate 12 % lotion topical 06/17/24 07/01/24 ammonium lactate 12 % topical cream appl topical 06/17/24 07/01/24 betamethasone valerate 0.1 % appl topical 06/17/24 07/01/24 topical cream clotrimazole 1 % topical cream appl topical BID 06/17/24 07/01/24 flash glucose sensor (FreeStyle #1 ea 06/17/24 07/01/24 Casey 2 Sensor kit) fluoxetine 40 mg capsule 40 mg PO DAILY 06/17/24 07/01/24 zinc oxide 40 % topical ointment topical 06/17/24 07/01/24 (Diaper Rash) Previous Rx's ?Medication ?Instructions ?Recorded meloxicam 15 mg tablet 15 mg PO DAILY 30 days #30 tabs 03/16/22 gabapentin 100 mg capsule 100 mg PO BEDTIME #90 caps 02/27/24 lisinopril 20 mg tablet 20 mg PO DAILY #30 tabs 05/18/24 adalimumab 40 mg/0.4 mL 40 mg (0.4 mL) subcut Q2W #2 ea 05/30/24 subcutaneous pen kit (Humira(CF) Pen) acetaminophen 500 mg tablet 500 mg PO Q6H PRN pain #20 tabs 06/04/24 (Acetaminophen Extra Strength) lidocaine 5 % topical patch 1 patch topical DAILY PRN pain #15 06/04/24 ea sodium,potassium,mag sulfates 17.5 See Rx Instructions PO .COMPLEX 06/17/24 gram-3.13 gram-1.6 gram oral soln #354 mL (Suprep Bowel Prep Kit) cholecalciferol (vitamin D3) 1,250 1,250 mcg PO QWEEK #13 caps 07/29/24 mcg (50,000 unit) capsule Allergies Allergy/AdvReac Type Severity Reaction Status Date / Time seafood Allergy Severe Swelling Verified 08/06/24 09:57 Review of Systems 2 Review of Systems: No new chest pain no new shortness of breath no diaphoresis no fever no chills no changes in weight. Social drinking only. No history of smoking. Yes all other systems are reviewed and are negative PMFSH Past Medical History Attestation statement: The following information was validated with the patient. Medical History Seronegative spondyloarthropathy Seronegative spondylitis Vitamin D deficiency Elevated C-reactive protein (CRP) Fibromyalgia Polyarthralgia Narcotic dependence Thrombocytopenia Carpal tunnel syndrome Sleep apnea Pre-op evaluation Hx of migraines BETSY on CPAP Pre-op evaluation HTN (hypertension), benign Insulin dependent type 1 diabetes mellitus Morbid obesity Shoulder dislocation Diabetes Surgical History Hx of colonoscopy History of esophagogastroduodenoscopy (EGD) Hx of hernia repair Hx of appendectomy Family History Family History Mother No problems noted. Brother No problems noted. Daughter No problems noted. Daughter No problems noted. Daughter No problems noted. Son No problems noted. Son No problems noted. Social History Social History Household Members: Other Household Members Other:: Housing: House Are you a primary companion caregiver to a significant other at home: No Do you presently have visiting nurse or other home services: No Alcohol intake: never Patient Tobacco Use Status: Never used Tobacco Smoked in Last 30 Days: No Use of substances other than those prescribed or required for medical reasons: No Substance Use Type: Marijuana Advance Directives: Yes Advance Directives on File: Yes Advance Directives Date on File: 08/10/22 service: No Current occupational status: employed and other 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 Oriented X3. No acute distress. Eyes: Pupils equal, round and reactive to light. ENT: Pharynx normal. Examination of patient's dentition showed a severely decayed front right-sided canine. Along with a loose canine on the front lower left canine. There is significant gum swelling in the front. There is no abscess palpable. The tongue did not have any gross lesions. The floor of the mouth was soft. The posterior pharynx was normal. There is no tenderness on palpation of the parotids. There is no midface tenderness. Neck: Normal inspection. Neck supple.No crepitus. Patient's trachea is midline. There is no gross lymph nodes palpable. CVS: Normal heart rate and rhythm. Pulses normal. Normal S1 and S2 Respiratory: No respiratory distress. Breath sounds normal. No Wheezing. No rales Abdomen: Soft and nontender. No rigidity. No distention. good BS x4 Skin: Skin warm and dry. Normal skin color. Normal skin turgor. Extremities: No lower extremity edema. Neurovascular intact to all extremities. No Lacerations. No Rash Neuro: Oriented X 3. No motor deficit. No sensory deficit. Moving all extermities. No slurred speech Medical Decision Making Medical Decision Making MDM Narrative: History of morbid obesity history of fibromyalgia history of diabetes, hyperlipidemia, sleep apnea, anemia, arthritis now presenting with having dry clots noted around his mouth for the last 3 months. Patient denies any new chest pain denies any new shortness of breath. Did note that he has darker stool. Patient's hemoglobin was checked it is essentially the same as prior it is 13.6 today. Asked patient through the data quality consultant if we can do a rectal exam multiple times. The patient absolutely refused. State that he does not want 1 under all circumstances. Understood there is a risk of bleeding. Patient also complained that he had some coughing. Will check a COVID test along with a chest x-ray. My interpretation of patient's EKG showed a sinus rhythm heart rate is 80 SD QRS QTC normal no acute ST segment elevation. Patient's INR is normal. No signs of coagulation issue. My interpretation patient's chest x-ray was grossly negative. Patient's COVID flu RSV was negative as he had some mild coughing episodes. He is in no acute distress. His vital signs are stable. His hemoglobin is baseline. Will discharge patient home have patient follow-up on an outpatient basis. Differential Diagnosis Differential Diagnoses: The differential diagnosis associated with the presentation includes GI bleed, abrasion, dental issue, COVID, flu, RSV, pneumonia, liver issues Admission/Observation Consideration of admission/observation: Escalation of care including admission/observation considered Lab Data [facility] Lab Attestation statement: I reviewed the patient's lab results. 08/06/24 10:13 08/06/24 10:13 Labs: Lab Results 08/06/24 08/06/24 Range/Units 10:13 12:26 WBC 7.3 (4.8-10.8) X10*3/uL RBC 4.61 (4.60-5.80) X10*6/uL Hgb 13.1 L (14.0-18.0) g/dl Hct 39.1 L (42.0-52.0) % MCV 84.8 (80.0-98.0) fL MCH 28.4 (27.0-33.0) pg MCHC 33.5 (31.0-36.0) g/dl RDW 13.2 (11.0-16.0) % Plt Count 126 L (160-400) X10*3/uL MPV 11.4 (9.4-12.4) fL Immature Gran % (Auto) 0.4 (0.0-0.4) % Neut % (Auto) 67.2 (45-73) % Lymph % (Auto) 24.9 (20-40) % Bryan % (Auto) 4.8 (2-11) % Eos % (Auto) 2.3 (0-4) % Baso % (Auto) 0.4 (0-2) % Lymph # (Auto) 1.8 (1.2-4.9) X10*3/uL Bryan # (Auto) 0.4 (0.1-1.2) X10*3/uL Eos # (Auto) 0.2 (0.0-0.4) X10*3/uL Baso # (Auto) 0.0 (0.0-0.2) X10*3/uL Abs Immat Gran (auto) 0.03 (0.00-0.03) X10*3/uL Absolute Neuts (auto) 4.9 (2.0-8.3) x10*3/uL Absolute Nucleated RBC 0.000 (0.0-0.012) X10*3/uL Nucleated RBC % (auto) 0.0 (0.0-0.2) /100WBC PT 11.7 (10.9-12.4) SEC INR 1.0 (0.9-1.1) Sodium 136 (135-145) mmol/L Potassium 3.9 (3.3-5.1) mmol/L Chloride 105 (96-108) mmol/L Carbon Dioxide 25 (22-29) mmol/L Anion Gap 10 L (12-20) BUN 18 H (9-16) mg/dL Creatinine 1.18 (0.5-1.4) mg/dL Estim Creat Clear Calc 124.9 Estimated GFR > 60 Random Glucose 186 H (60-115) mg/dL Calcium 8.9 (8.4-10.2) mg/dL Total Bilirubin 0.8 (0.0-1.0) mg/dL Direct Bilirubin 0.2 (0.0-0.5) mg/dL AST 22 (5-37) U/L ALT 21 (0-40) U/L Alkaline Phosphatase 73 (39-117) U/L Total Protein 8.0 (6.5-8.0) g/dL Albumin 3.7 (3.5-5.0) g/dL Lipase 48 (8-78) U/L Influenza Type A (PCR) NEGATIVE (Negative) Influenza Type B (PCR) NEGATIVE (Negative) RSV RNA Qual (PCR) NEGATIVE (Negative) SARS-CoV-2 RNA (RT-PCR) NEGATIVE (Negative) Independent Interpretation I performed an independent interpretation of an: Plain X-Ray (Chest x-ray is grossly negative for pneumonia pneumothorax) Radiology Impression Discussion of test interpretation with radiology: I have reviewed the radiologist's reading. Independent Historian Clinical information obtained from an independent historian. History obtained from or confirmed by: Spouse External Record Review Previous hospitalization records reviewed Chronic Conditions Patient?s care impacted by: Diabetes Fatty liver Social Determinants Patient?s care significantly limited by Social Determinants of Health including: Problems related to primary support group Discharge Plan Discharge Patient Disposition: Home, Self-Care Prescriptions: No Action meloxicam 15 mg tablet 15 mg PO DAILY 30 Days Qty: 30 0RF cholecalciferol (vitamin D3) 1,250 mcg (50,000 unit) capsule 1,250 mcg PO QWEEK Qty: 13 0RF lidocaine [Lidoderm] 5 % adhesive patch,medicated 1 patch topical DAILY PRN (Reason: Pain) Rx Instructions: leave on most painful area for up to 12 hrs lisinopril 20 mg Tablet 20 mg PO DAILY Qty: 30 0RF Protocol: Hold for SBP< HOLD for SBP < : 90 lidocaine 5 % adhesive patch,medicated 1 patch topical DAILY PRN (Reason: pain) Qty: 15 0RF Rx Instructions: leave on most painful area for up to 12 hrs acetaminophen [Acetaminophen Extra Strength] 500 mg tablet 500 mg PO Q6H PRN (Reason: pain) Qty: 20 0RF buprenorphine-naloxone [Suboxone] 8-2 mg film 1 film sublingual TID insulin lispro [Humalog KwikPen Insulin] 100 unit/mL insulin pen 35 unit subcut TID gabapentin 100 mg capsule 100 mg PO BEDTIME Qty: 90 0RF Humira(CF) Pen 40 mg/0.4 mL pen injector kit 40 mg subcut Q2W Qty: 2 6RF insulin glargine [Lantus Solostar U-100 Insulin] 100 unit/mL (3 mL) insulin pen 55 unit subcut BEDTIME (DME) FreeStyle Casey 2 Sensor Kit See Rx Instructions .ROUTE Q2W Qty: 1 Rx Instructions: As directed fluoxetine 40 mg capsule 40 mg PO DAILY betamethasone valerate 0.1 % cream topical ammonium lactate 12 % lotion topical zinc oxide [Diaper Rash] 40 % ointment topical clotrimazole 1 % cream topical BID ammonium lactate 12 % cream topical sodium,potassium,mag sulfates [Suprep Bowel Prep Kit] 17.5-3.13-1.6 gram recon soln See Rx Instructions PO .COMPLEX Qty: 354 0RF Rx Instructions: DILUTE as per instructions given Referrals: Naheed Zaman REEL MAN [Primary Care Provider] - 08/08/24 Print Language: French
[2024-08-06 12:06] LABS: Alanine Aminotransferase 21 U/L (0-40); Albumin Level 3.7 g/dL (3.5-5.0); Alkaline Phosphatase 73 U/L (39-117); Anion Gap 10 (12-20); Aspartate Amino Transferase 22 U/L (5-37); Bilirubin Direct 0.2 mg/dL (0.0-0.5); Bilirubin Total 0.8 mg/dL (0.0-1.0); Blood Urea Nitrogen 18 mg/dL (9-16); Calcium 8.9 mg/dL (8.4-10.2); Carbon Dioxide 25 mmol/L (22-29); Chloride 105 mmol/L (96-108); Creatinine Clr Calc Pharmacy 124.9; Estimated Glomerular Filt Rate > 60; Glucose Random 186 mg/dL (60-115); Lipase 48 U/L (8-78); Potassium 3.9 mmol/L (3.3-5.1); Sodium 136 mmol/L (135-145)
[2024-08-06 12:32] VITALS: RESP 17
--- OUTSIDE RECORDS SUMMARY | 2024-08-06 13:39 | XMS_ITS | Encounter Summary ---
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 No 08/31/2023 Depression Answer Date Recorded Patient Health Questionnaire-2 Score 6 07/10/2024 Sex and Gender Information Value Date Recorded Sex Assigned at Male 03/28/2022 10:21 AM EDT Legal Sex Male 10:21 AM EDT Gender Identity Male 03/28/2022 10:21 AM EDT Sexual Orientation Straight 03/28/2022 10 :21 AM EDT documented as of this encounter Progress Notes * Rut Branham MD - 07/25/2024 3:00 PM EST Patient here today for Opioid Dependence Patient on current Suboxone dose of 24/6 mg on an 8 week schedule. Pt has been in the program for 2 year 8 months. Induction date: 12/16/21. LFTs done 05/16/24. [facility] RAMONE GAY reviewed by provider. Last PCP appt 03/29/24, next 07/10/24. LAST VISIT 06/27/24 +bup, thc Ross reports everything is fine with Suboxone. Still struggling with everything else . Awaiting new psych appt with [facility] provider 07/16/24. Declines to see Vee today. Having dental issues, next appt in July. Requesting to go back to 8 week visits, will change after next appt. TODAY-07/25/24 POS:BUP,THC Subjective Patient ID: Ross Navarrete is a 43 y.o. male who presents for OBAT. Ross is being seen for OBAT services. He is maintaining abstinence with no cravings or med side effects. He continues to feel depressed. He saw manager psychology Jermaine Suárez last week for an initial visit. Prozacdose was increased to 60 mg and hydroxyzine was added to regimen. Review of Systems Psychiatric/Behavioral: Positive for dysphoric mood. Negative for hallucinations. Objective Physical Exam Constitutional: Appearance: Normal appearance. He is well-developed. Skin: General: Skin is warm and dry. Neurological: General: No focal deficit present. Mental Status: He is alert and oriented to person, place, and time. Mental status is at baseline. Psychiatric: Mood and Affect: Mood normal. Behavior: Behavior normal. Assessment/Plan Diagnoses and all orders for this visit: Opioid type dependence, continuous ([facility]) Counseling provided RE: importance of multiple sources of support for achieving and maintaining recovery. Counseling RE: harm reduction measures, ie, not using alone, the use of clean needles/equipment, Narcan. Discussed strategies to use when confronted with situations that trigger use. Continue current Suboxone dose. Continue monthly visits. - POCT RAMSES-14 Urine Drug Screen Severe episode of recurrent major depressive disorder, without psychotic features ([facility]) Support provided. Continue current treatment plan. This information has been disclosed to you [...] Care Team (Late st Contact Info) Description 09/19/2024 3:00 PM EDT Office Visit [address] [address] Rut Branham MD [address] [place] [address] 10/08/2024 1:00 PM EDT Office Visit [facility] [address] [place] [address] Naheed Zaman ANP [address] [place] [address] documented as of this encounter Procedures Procedure Name Priority Date/Time Associated Diagnosis Comments POCT RAMSES-14 URINE DRUG SCREEN Routine 07/25/2024 2:14 PM EST Opioid type dependence, continuous (CMS/HCC) documented in this encounter Results * POCT RAMSES-14 Urine Drug Screen (07/25/2024 2:14 PM EST) Urine Urine specimen obtained by clean catch procedure / Unknown 07/25/2024 2:14 PM EST Rut Branham MD POINT OF [...] documented as of this encounter Care Teams [employer] Volleyball Coach Relationship Specialty Start Date End Date Naheed Zaman ANP [address] [place] [phone] PCP - General Family Medicine 01/18/22 documented as of this encounter
--- OUTSIDE RECORDS SUMMARY | 2024-08-06 13:39 | XMS_ITS | Encounter Summary ---
Author Organization [employer] Address [address] [place] [address] Care Team Providers Care Tax Intern Name Role Phone Junie Naheed RAHMAN Primary Care Provider [phone] Encounter Details Date Type Department Care Team (Latest Contact Info) Description 08/02/2024 Outside Procedure [facility] [address] [place] [address] Gary, Coreen, OD [address] [place] [address] Presbyopia (Primary Dx) Social History Tobacco Use Types [...] as of this encounter Progress Notes * Coreen Vega OD - 08/02/2024 9:56 AM EST MH glasses were dispensed, 2 of 2. documented in this encounter Plan of Treatment Upcoming Encounters Date Type Department Care Team (Late st Contact Info) Description 09/19/2024 3:00 PM EDT Office Visit [facility] [address] [place] [phone] Rut Branham MD [address] [place] [address] 10/08/2024 1:00 PM EDT Office Visit [facility] [address] [place] [phone] Naheed Zaman ANP [address] [place] [phone] documented as of this encounter Visit Diagnoses Diagnosis Presbyopia- Primary documented in this encounter Additional Health Concerns Assessment Noted Time PHQ-9 Depression Total Score: 25 024 8:12 AM EDT documented as of this encounter Care Teams Tax Intern Relationship Specialty Start Date End Date Naheed Zaman ANP [address] [place] [address] PCP - General Family Medicine 01/18/22 documented as of this encounter
--- OUTSIDE RECORDS SUMMARY | 2024-08-06 13:39 | XMS_ITS | Encounter Summary ---
Author Organization [employer] Address [address] [facility] [address] [place] [address] Care Team Providers Care Air Chipper Name Role Phone Naheed Zaman JOSIAH Primary Care Provider [phone] Reason for Visit * Reason Comments Med Refill Encounter Details Date Type Department Care Team ([facility] st Contact Info) Description 09/14/[address] [facility] [address] [place], [place] [phone] Dayna Cardenas MD [address] [place], [place] [phone] Uncomplicated opioid dependence (CMS/HCC) Social History Tobacco [...] Description 09/19/2024 3:00 PM EDT Office Visit [facility] [address] [place] [address] Rut Branham MD [address] [place] [phone] 10/08/2024 1:00 PM EDT Office Visit [facility] [address] [place] [address] Naheed Zaman ANP [address] [place] [address] documented as of this encounter Visit Diagnoses Diagnosis Uncomplicated opioid dependence (CMS/HCC) documented in this encounter Additional Health Concerns Assessment Noted Time PHQ-9 Depression Total Score: 6 11/19/19 23 3:29 PM EDT documented as of this encounter Care Teams Air Chipper Relationship Specialty Start Date End Date Naheed Zaman ANP [address] [place] [phone] PCP - General Family Medicine 01/18/22 documented as of this encounter
--- OUTSIDE RECORDS SUMMARY | 2024-08-06 13:39 | XMS_ITS | Encounter Summary ---
Author Organization [employer] [facility] Address [address] [place] [address] [address] [place] [address] Care Team Providers Care Grappler Name Role Phone Naheed Zaman Primary Care Provider [phone] Encounter Details Date Type Department Care Team (Latest Contact Info) Description 12/29/2021 Abstract [facility] CONVERSIONS Dental, Provider, DDS Social [...] Department Care Team ( Contact Info) Description 09/19/2024 3:00 PM EDT Office Visit [facility] [address] [place] [phone] Rut Branham MD [address] [place] [address] 10/08/2024 1:00 PM EDT Office Visit [facility] [address] [place] [phone] Naheed Zaman ANP [address] [place] [address] documented as of this encounter Visit Diagnoses Not on filedocumented in this encounter Care Teams Grappler Relationship Specialty Start Date End Date Naheed Zaman ANP [address] [place] [phone] PCP - General Family Medicine 01/18/22 documented as of this encounter
--- OUTSIDE RECORDS SUMMARY | 2024-08-06 13:39 | XMS_ITS | Clinical Summary ---
Author Organization [facility] Address [address] [place] [address] Phone Care Team Providers Care Vice President Of Brand Management Name Role Phone Naheed Zaman NP Primary Care Provider [phone] Allergies Active Allergy Reactions Criticality Noted Date Comments Other Cough 04/26/2017 Seafood: Difficulty breathing Medications baclofen (LIORESAL) 10 mg tablet Take 1 Tab by mouth 3 times daily as needed (muscle spasms). 0 Active blood glucose control high,low (FreeStyle Control) solution Use to calibrate each new bottle of strips. E11.21 9 Active blood-glucose meter (FREESTYLE LITE METER MISC) Use to check blood sugars twice daily 9 Active clindamycin phosphate 1 % gel, once daily APPLY TO PUSTULES UNTIL HEALED. 9 Active clotrimazole (LOTRIMIN) 1 % cream Apply thin layer to affected area twice daily for 2 weeks 8 Active flash glucose scanning reader (FREESTYLE FRANCISCO 14 DAY READER MISC) 1 Device by Does not apply route continuous. Use reader to scan sensor at least every 8 hours 0 Active flash glucose sensor (FREESTYLE FRANCISCO 14 DAY SENSOR MISC) 1 Device by Does not apply route every 14 days. Apply to the back of the arm every 14 days. 0 Active dulaglutide (Trulicity) 1.5 mg/0.5 mL pen injector injection Inject 1.5 mg into the skin once a week. 2 Active FREESTYLE LANCETS MISC Use to check blood sugars BID. E11.21 9 Active gabapentin (NEURONTIN) 400 mg capsule Take 1 capsule by mouth 3 times daily. Pt needs to choose new pcp and schedule appt for further refills 1 Active blood sugar diagnostic (FreeStyle Lite Strips) test strip Use to check blood sugars BID. E11.21 0 Active insulin glargine (Lantus Solostar U-100 Insulin) 100 unit/mL (3 mL) injection pen Inject 60 Units into the skin at bedtime. *please close basaglar and dispense lantus 2 Active insulin lispro (HumaLOG KwikPen Insulin) 100 unit/mL injection pen Inject 40 Units into the skin 3 times daily (with meals). 2 Active pen needle, diabetic 31 gauge x 10/11 needle Use with insulin 3 times daily 0 Active lisinopriL (PRINIVIL,ZESTR IL) 2.5 mg tablet TAKE 1 TABLET BY MOUTH EVERY DAY 2 Active ammonium lactate (AmLactin) 12 % lotion Apply topically if needed for dry skin. 400 g 5 06/03/19 26 Active Active Problems Problem Noted Date Diagnosed Date Morbid obesity with BMI of 60.0-69.9, adult 03/30 Acquired pes planus 05/11/2017 Pure hypercholesterolemia 05/10/2017 Pulmonary hypertension 05/10/2017 Overview (04/17/2024): Mild, ECHO 10/21/10 C, EF 65-70% HTN (hypertension) 05/10/2017 H. pylori [...] myelopathy or radiculopathy 04/26/2017 Overview (04/17/2024): [place] [facility] [place] BETSY (obstructive sleep apnea) 04/26/2017 Overview (04/17/2024): [place]omnography 08/05/2009, [facility] [place] cpap 14 cm H2O 10/23/2017 Home Sleep Study insufficient data. 08/2018 - Pulm ordered split night study. Diabetes mellitus type 2 with neurological manif estations 04/26/2017 CTS (carpal tunnel syndrome) 04/26/2017 Encounters Date Type Department Care Team Description 06/03/2024 2:30 PM EST Consult Orthopedic Surgery - [place] [address] [phone] Bg Yeager, NASREEN Ingrowing nail (Primary Dx); Dermatophytosis of nail; [...] DX:History of acute post-streptococcal glomerulonephritis; COMMENT: Hospitalized [facility] [place] anasarca/ KUNAL 2010, streptolysin titer 1060, kidney bx, Followed in past by Dr Zapata, NSAIDS not recommended HTN (hypertension) 05/10/2017 DX:HTN (hyper tension) Morbid obesity with BMI of 6 0.0-69.9, adult (CMS/HCC) 04/26/2017 DX:Morbid obesity with BMI o f 60.0-69.9, adult ([facility]) BETSY (obstructive sleep apnea) 04/26/2017 DX :BETSY (obstructive sleep apnea); COMMENT: [place]ysomnography 08/05/2009, [facility] [place] cpap 14 cm H2O Pulmonary hypertension (CMS/HCC) 05/10/2017 DX:Pulmonary hypertension (HCC); COMMENT: Mild, ECHO 10/21/10 [facility], EF 65-70% Otherwise normal altho suboptimal views, [...] egion without myelopathy or radiculopathy; COMMENT: [place] [facility] [place]ology Family History Medical History Relation Name [...] Recorded Sex Assigned at Not on file Legal Sex Male 5:32 AM EST Gender Identity Not on file Sexual Orientation Not on file Obstetrics History Last Filed [...] PM EDT Office Visit Orth[facility] Surgery - [place] [address] [id number] Bg Yeager, DPM [address] [address] Health Maintenance Due Date Last Done Comments Diabetes: Annual Foot Exam 11/14/1991 Diabetes: Annual Retina Eye Exam 11/14/1991 Hepatitis A Vaccines (1 of 2 - Risk 2-dose series) 2000 Pneumococcal Vaccine: Pediatrics (0 to 5 Years) and At-Risk Patients (6 to 64 Years) (1 of 2 - PCV) 2000 Social Influencers of Health Screening 05/01/2022 Diabetes: Annual Urine Albumin-Creatinine Ratio (uACR) 06/30/2023 02/27/2020 Hepatitis B Vaccines (2 of 3 - 19+ 3-dose series) 11/14/2023 10/17/2023 COVID-19 Vaccine (3 - 2023-2 5 season) 2024 12/29/2020, 12/10/2020 Influenza Vaccine [...] patient's age to complete this topic Meningococcal B Vacine Aged Out No lo nger eligible based on patient's age to complete [...] Results * Urine Albumin Creatinine Ratio (02/27/2020) Urine Albumin Creatinine Ratio Abstracted Historical Provider MD HEALTH MAINTENANCE Final Result * Annual BMP Blood Test (02/27/2020) Annual BMP Blood Test Abstracted [facility] Provider MD HEALTH MAINTENANCE Final Result * (ABNORMAL) Hemoglobin A1c (02/27/2020) Hemoglobin A1C 6.9(A) <=6.5 % Blood Venous blood specimen / Unknown us Historical Provider LAB BLOOD ORDERABLES Brunilda l Result * Lipid panel (02/27/2020) LDL/HDL Ratio 3 0 - 4 Triglycerides 91 0 - 150 mg/dL Cholesterol 145 0 - 200 mg/dL HDL 58 >=40 mg/dL LDL Cholesterol 69 0 - 100 mg/dL Blood Venous blood specimen / Unknown Historical Provider LAB BLOOD ORDERABLES Brunilda l Result * Hepatitis C Screening (06/22/2017) Hepatitis C Screening Abstracted Historical Provider HEALTH MAINTENANCE Final Result from Last 3 Months or Most Recently Relevant to Health Maintenance Insurance MEDICAID - [place] Care Teams Vice President Of Brand Management Relationship Specialty Start Date End Date Naheed Zaman NP [address] [place] [phone] PCP - General 02/21/24
--- OUTSIDE RECORDS SUMMARY | 2024-08-06 13:39 | XMS_ITS | Encounter Summary ---
Author Organization [employer] Address 75 [facility] 7t [place] [address] Care Team Providers Care Group Fitness Assistant Department Head Name Role Phone Naheed Zaman JOSIAH Primary Care Provider [phone] Encounter Details Date Type Department Care Team (Latest Contact Info) Description 07/10/2024 Travel Social History Tobacco Use Types Packs/Day [...] Description 09/19/2024 3:00 PM EDT Office Visit [facility] [address] [place] [address] Rut Branham MD [address] [place] [address] 10/08/2024 1:00 PM EDT Office Visit [facility] [address] [place] [address] Naheed Zaman ANP [address] [place] [address] documented as of this encounter Visit Diagnoses Not on filedocumented in this encounter Additional Health Concerns Assessment Noted Time PHQ-9 Depression Total Score: 25 024 8:12 AM EDT documented as of this encounter Care Teams Group Fitness Assistant Department Head Relationship Specialty Start Date End Date Naheed Zaman ANP [address] [place] [address] PCP - General Family Medicine 01/18/22 documented as of this encounter
--- OUTSIDE RECORDS SUMMARY | 2024-08-06 13:39 | XMS_ITS | Encounter Summary ---
Author Organization [employer] Address 75 [facility] 7t [place] [address] Care Team Providers Care Core Driller Name Role Phone Naheed Zaman Primary Care Provider [phone] Reason for Visit * Reason Comments Med Refill Encounter Details Date Type Department Care Team ([facility] st Contact Info) Description 08/18/2023 Refill [facility] [address] [place], [place] [phone] Naheed Zaman ANP 230 [place] [address] Chronic low back pain without sciatica, unspecified [...] Description 09/19/2024 3:00 PM EDT Office Visit [facility] [address] [place] [address] Rut Branham MD [address] [place] [address] 10/08/2024 1:00 PM EDT Office Visit [facility] [address] [place] [address] Naheed Zaman ANP [address] [place] [address] documented as of this encounter Visit Diagnoses Diagnosis Chronic low back pain without sciatica, unspecified back pain laterality documented in this encounter Additional Health Concerns Assessment Noted Time PHQ-9 Depression Total Score: 6 11/19/19 23 3:29 PM EDT documented as of this encounter Care Teams Core Driller Relationship Specialty Start Date End Date Naheed Zaman ANP [address] [place] [address] PCP - General Family Medicine 01/18/22 documented as of this encounter
--- OUTSIDE RECORDS SUMMARY | 2024-08-06 13:39 | XMS_ITS | Encounter Summary ---
Author Organization [employer] Address [address] [facility] 7t [place] [address] Care Team Providers Care Build Technician Name Role Phone Naheed Zaman Primary Care Provider [phone] Reason for Visit * Reason Onset Date Comments Nurse Triage 08/05/2024 Encounter Details Date Type Department Care Team ([facility] st Contact Info) Description 08/05/2024 Telephone [facility] 230 [place] [address] Naheed Zaman ANP [address] [place] [address] Nurse Triage Social History Tobacco Use Types Packs/Day Years [...] encounter Miscellaneous Notes * Telephone Encounter - Arlette Hill RN - 08/06/2024 10:40 AM EDT Pt in ED right now. Will retask to check on outcome tomorrow * Telephone Encounter - Arlette Hill RN - 08/06/2024 9:31 AM EDT Checked [employer], pt not there yet. Will retask to check again later today * Telephone Encounter - Lela Witt RN - 08/05/2024 1:24 PM EDT TC placed to pt with BLS wall crane operator Issa #[id number] to give advisement to be seen in the ED after calling into the triage line this morning with complaint of blood in the mouth, epigastric pain and black tar like stools. The pt was given a strong recommendation by triage to be seen in the ED to ruleout a GI bleed. This recommendation was also followed up by PCP who was made aware of the pt symptoms. Pt states that he did go to the ED over the weekend and waited almost three hours and left. RN advised pt that when he goes he will be triaged and most likely have labs and imaging ordered while waiting. RN stressed the importance of presenting to the ED as this is the only environment that can p rovide the interventions he needs. Pt states that he will go tomorrow morning at the latest. RN advised pt that we will follow up on this encounter to check on pt status tomorrow morning. * Telephone Encounter - JOSIAH Marquez - 08/05/2024 10:41 AM EDT Triage was correct in recommending ER eval for this pt. Please outreach to encourage. Please confirm pt has and is taking his nexium regularly. Would advise stopping/holding meloxicam until further notice. * Telephone Encounter - Colleen Herbert RN - 08/05/2024 9:56 AM EDT Images from the original note were not included. No wall crane operator needed as this race and sports book writer speaks Yakut. Call returned to Ross Navarrete to triage below. Reports continues to have blood in mouth. Tongue is burning and has sour taste. Pt having epigastric pain that is constant. Pt also endorses having black tar like stools yesterday. Pt advised of disposition to seek ER now for evaluation to rule out GI bleed. Pt states does not wish to go to ER. Pt advised that need for imaging is needed and having this type of bleeding may require immediate medical intervention that is not able to be done in an outpatient setting. Pt again declines ER. Advised of risks of not seeking care. Pt advised can seek WIC for evaluation but may still be sent to ER if provider feels that further medical care is needed. Pt did not agree or decline WIC before endingcall. Will send to both PCP and team nurses to follow up PRN. Multiple (2) protocols were used on this call. Disposition for Call: Go to ED Now Protocol Used: Coughing Up Blood (Adult) Protocol-Based Disposition: Go to ED Now Positive Triage Question: * Unclear to triager if the patient is coughing up blood or vomiting blood * All higher-acuity triage questions were negative Protocol Used: Rectal Bleeding (Adult) Protocol-Based Disposition: Go to ED Now Positive Triage Question: * Bloody, black, or tarry bowel movements (Exception: Chronic-unchanged black- luke bowel movements and is taking iron pills or Pepto-Bismol.) * All higher-acuity triage questions were negative Care Advice Discussed: * Reasons To Call Back - You become worse FW: Perd??n por molestar jad pregunta Received: Today Colleen Herbert RN P [facility] Triage Nurse Translation: Good morning doctor, I've been waking up for about a week with my mouth full of blood clots and my teeth are black and red, my tongue sweeney a lot, it feels like it's split and it tastes bad, bitter and like blood... Please let me know if it's not important, thank you. Previous Messages Perd??n por molestar jad pregunta (Newest Message First) View All Conversations on this Encounter You [facility] Triage Nurse15 minutes ago (9:40 AM) VG Translation: Good morning doctor, I've been waking up for about a week with my mouth full of blood clots and my teeth are black and red, my tongue sweeney a lot, it feels like it's split and it tastes bad, bitter and like blood... Please let me know if it's not important, thank you. Ross Hanson [facility] Clinical Support (supporting JOSIAH Marquez)2 days ago Buenos d??as doctor llevo dania jad semana que me levanto con la boca llena de cuagulos de svetlana y ??sea los dientes negros y rojos la lengua me arde mucho est?? dania kyle y me sabe jerry amargo y dania svetlana ..Me luna saber si no es importante adams documented in this encounter Plan of Treatment Upcoming Encounters Date Type Department Care Team (Late st Contact Info) Description 09/19/2024 3:00 PM EDT Office Visit [facility] [address] [place] [address] Rut Branham MD 230 [place] [address] 10/08/2024 1:00 PM EDT Office Visit [facility] [address] [place] [address] Naheed Zaman ANP [address] [place] [address] documented as of this encounter Visit Diagnoses Not on filedocumented in this encounter Additional Health Concerns Assessment Noted Time PHQ-9 Depression Total Score: 25 024 8:12 AM EDT documented as of this encounter Care Teams Build Technician Relationship Specialty Start Date End Date Naheed Zaman ANP [address] [place] [address] PCP - General Family Medicine 01/18/22 documented as of this encounter
--- OUTSIDE RECORDS SUMMARY | 2024-08-06 13:39 | XMS_ITS | Encounter Summary ---
Author Organization [employer] Address 75 [facility] 7t [place] [address] Care Team Providers Care Information Services Tech Name Role Phone Junie Naheed RAHMAN Primary Care Provider [phone] Reason for Visit * Reason Onset Date Comments Right shoulder X ray 07/09/2024 Encounter Details Date Type Department Care Team ([facility] st Contact Info) Description 07/09/2024 Telephone [facility] 230 [place] [address] Nikki Díaz RN 230 [place] [address] Right shoulder X ray Social History Tobacco Use Types Packs/Day Years [...] encounter Miscellaneous Notes * Telephone Encounter - Ellen Suárez MA - 07/10/2024 10:57 AM EST T/C placed central supply assistant spoke with the patient and ask if he did the urgent X-ray order by Lyndsay and patient notify that no because he wait to much on [facility] and he decided to go home, because they never called him. Pt notify that he will be seen by his PCP today and he will ask his PCP to send him to another place to do this X-ray. * Telephone Encounter - Nikki Díaz RN - 07/09/2024 12:48 PM EST Urgent X-Ray of R shoulder ordered by Lyndsay Tariq NP on 07/03/24. Results not yet received. Message sent to RAMONE to outreach patient. documented in this encounter Plan of Treatment Upcoming Encounters Date Type Department Care Team ([facility] st Contact Info) Description 09/19/2024 3:00 PM EDT Office Visit [facility] [address] [place] [address], [place] [address] Rut Branham MD 230 [place] [address] 10/08/2024 1:00 PM EDT Office Visit [facility] 230 [place] [address] Naheed Zaman ANP [address] [place] [address] documented as of this encounter Visit Diagnoses Not on filedocumented in this encounter Additional Health Concerns Assessment Noted Time PHQ-9 Depression Total Score: 25 024 8:12 AM EDT documented as of this encounter Care Teams Information Services Tech Relationship Specialty Start Date End Date Naheed Zaman ANP [address] [place] [address] PCP - General Family Medicine 01/18/22 documented as of this encounter
--- OUTSIDE RECORDS SUMMARY | 2024-08-06 13:39 | XMS_ITS | Encounter Summary ---
Author Organization [employer] Address 75 [facility] 7t [place] [address] Care Team Providers Care Inspector Tester Sorter Name Role Phone Junie Naheed RAHMAN Primary Care Provider Reason for Visit * Reason Onset Date Comments Chart prep 07/10/2024 Encounter Details Date Type Department Care Team (Late st Contact Info) Description 07/10/2024 Telephone [facility] 230 [place] [address] Anette Cariron MA Chart prep Social History Tobacco Use Types Packs/Day Years [...] encounter Miscellaneous Notes * Telephone Encounter - Anette Carrion MA - 07/10/2024 9:39 AM EST Chart Prep Labs: done Images: not done Vaccines due: yes Referrals: unknown Screenings: none Overdue care gaps: A1C, Glucose, PHQ-9 documented in this encounter Plan of Treatment Upcoming Encounters Date Type Department Care Team (Late st Contact Info) Description 09/19/2024 3:00 PM EDT Office Visit [facility] [address] [place] [address] Rut Branham MD [address] [place] [address] 10/08/2024 1:00 PM EDT Office Visit [facility] [address] [place] [address] Naheed Zaman ANP [address] [place] [address] documented as of this encounter Visit Diagnoses Not on filedocumented in this encounter Additional Health Concerns Assessment Noted Time PHQ-9 Depression Total Score: 25 024 8:12 AM EDT documented as of this encounter Care Teams Inspector Tester Sorter Relationship Specialty Start Date End Date Naheed Zaman ANP [address] [place] [address] PCP - General Family Medicine 01/18/22 documented as of this encounter
--- OUTSIDE RECORDS SUMMARY | 2024-08-06 13:39 | XMS_ITS | Encounter Summary ---
Author Organization [employer] Address 75 [facility] 7t [place] [address] Care Team Providers Care Desizing Machine Operator Head End Name Role Phone Naheed Zaman Primary Care Provider Reason for Visit * Reason Onset Date Comments Prior Authorization 08/06/2024 Ozempic Encounter Details Date Type Department Care Team ([facility] st Contact Info) Description 08/06/2024 Telephone [facility] [address] [place] [address] Naheed Zaman ANP [address] [place] [address] Prior Authorization (Ozempic) Social History Tobacco Use Types Packs/Day Years [...] the past 12 months, has t he [employer], gas, oil or water [employer] threatened to shut off services in your [...] encounter Miscellaneous Notes * Telephone Encounter - Nikia Brito - 08/06/2024 12:06 PM EDT PA for Ozempic from [facility] placed on PCP desk for signature. * Telephone Encounter - Nikia Brito - 08/06/2024 12:06 PM EDT ----- Message from Naheed Zaman sent at 08/05/2024 11:05 AM EDT ----- Please re-initiate PA for ozempic - pt could not tolerate trulicity d/t abdominal pain and could not tolerate metformin d/t GI upset documented in this encounter Plan of Treatment Upcoming Encounters Date Type Department Care Team (Late st Contact Info) Description 09/19/2024 3:00 PM EDT Office Visit [facility] [address] [place] [address] Rut Branham MD 230 [place] [address] 10/08/2024 1:00 PM EDT Office Visit [facility] [address] [place] [address] Naheed Zaman ANP [address] [place] [address] documented as of this encounter Visit Diagnoses Not on filedocumented in this encounter Additional Health Concerns Assessment Noted Time PHQ-9 Depression Total Score: 25 024 8:12 AM EDT documented as of this encounter Care Teams Desizing Machine Operator Head End Relationship Specialty Start Date End Date Naheed Zaman ANP [address] [place] [address] PCP - General Family Medicine 01/18/22 documented as of this encounter
--- OUTSIDE RECORDS SUMMARY | 2024-08-06 13:39 | XMS_ITS | Encounter Summary ---
Author Organization [employer] Address 75 [facility] 7t [place] [address] Care Team Providers Care Grain Elevator Man Name Role Phone Naheed Zaman Primary Care Provider [phone] Reason for Visit * Reason Onset Date Comments callback requested 04/23/2024 Encounter Details Date Type Department Care Team ([facility] st Contact Info) Description 04/23/2024 Telephone [facility] 230 [place] [address] Naheed Zaman ANP [address] [place] [address] callback requested Social History Tobacco Use Types [...] Tc from pt returning call to Madie Olson Callback number [phone] documented in this encounter Plan of Treatment Upcoming Encounters Date Type Department Care Team (Late st Contact Info) Description 09/19/2024 3:00 PM EDT Office Visit [facility] [address] [place] [address] Rut Branham MD [address] [place] [address] 10/08/2024 1:00 PM EDT Office Visit [facility] [address] [place] [address] Naheed Zaman ANP [address] [place] [address] documented as of this encounter Visit Diagnoses Not on filedocumented in this encounter Additional Health Concerns Assessment Noted Time PHQ-9 Depression Total Score: 25 024 8:12 AM EDT documented as of this encounter Care Teams Grain Elevator Man Relationship Specialty Start Date End Date Naheed Zaman ANP [address] [place] [address] PCP - General Family Medicine 01/18/22 documented as of this encounter
--- OUTSIDE RECORDS SUMMARY | 2024-08-06 13:39 | XMS_ITS | Clinical Summary ---
Author Organization [facility] Address [address] [place] [address] Care Team Providers Care Splicer Operator Name Role Phone Unavailable Primary Care Provider [...] recurrent major depressive disorder, with psychotic features ([facility]) 06/10/2024 Assessment & Plan (06/18/2024 11:18 AM EST): Patient refused to be seen, [place] steamboat pilot was notified. Assessment & Plan (06/10/2024 5:36 [...] connected on video call until arrival of [place] Police with recommendation to section patient to hospital Encounters Date Type Department Care Team Description 05/23/2024 11:30 AM EST Behavioral Health Visit [facility] [address] [place] [phone] Leslie Garzon APRN Severe episode of recurrent major depressive disorder, with psychotic features (HCC-CMS) (Primary Dx) 05/16/2024 3:00 PM EST Behavioral Health Visit [facility] [address] [place] [phone] Leslie Garzon APRN Severe episode of recurrent [...] - 19 + 3-dose series) 11/14/2023 10/17/2023 [id number] ( season) 2024 021, 12/10/2020 Imm-Influenza (#1) 2024 02/27/2012, 01/27/2011 Alcohol and Drug Screen 05/29/2024 Diabetes Screening 04/24/2025 04/24/2024, 0 10/11/2023, 12/14/2021, Additional history exists Lipid Screening 04/24/2029 04/24/2024, 05/29, 02/27/2020 Imm-DTaP/Tdap/Td (3 - Td or Tdap) 10/16/2033 024, 03/15/2011 Hepatitis C Screening Completed 10/11/2023 HIV Screening Completed 12/13/2023, 11/26, 12/16/2021 Insurance [facility] [place] MEDICAID
--- OUTSIDE RECORDS SUMMARY | 2024-08-06 13:39 | XMS_ITS | Encounter Summary ---
Author Organization [employer] Address [address] [facility] 7t [place] [address] Care Team Providers Care Rescue Worker Name Role Phone Naheed Zaman Primary Care Provider [phone] Reason for Visit * Reason Onset Date Comments Durable Medical Equipment 08/06/2024 Grab b ars Encounter Details Date Type Department Care Team ([facility] st Contact Info) Description 08/06/2024 Telephone [facility] [address] [place] [address] Naheed Zaman ANP 230 [place] [address] Durable Medical Equipment (Grab bars) Social History Tobacco Use Types Packs/Day Years [...] Telephone Encounter - Nikia Brito - 08/06/2024 11:52 AM EDT DME RX for grab bars generated and placed on providers desk for signature. * Telephone Encounter - Nikia Brito - 08/06/2024 11:52 AM EDT ----- Message from Naheed Zaman sent at 08/05/2024 11:00 AM EDT ----- Please generate RX for grab bars bathroom documented in this encounter Plan of Treatment Upcoming Encounters Date Type Department Care Team (Late st Contact Info) Description 09/19/2024 3:00 PM EDT Office Visit [facility] [address] [place] [address] Rut Branham MD 230 [place] [address] 10/08/2024 1:00 PM EDT Office Visit [facility] [address] [place] [address] Naheed Zaman ANP [address] [place] [address] documented as of this encounter Visit Diagnoses Not on filedocumented in this encounter Additional Health Concerns Assessment Noted Time PHQ-9 Depression Total Score: 25 024 8:12 AM EDT documented as of this encounter Care Teams Rescue Worker Relationship Specialty Start Date End Date Naheed Zaman ANP 230 [place] [address] PCP - General Family Medicine 01/18/22 documented as of this encounter
--- OUTSIDE RECORDS SUMMARY | 2024-08-06 13:39 | XMS_ITS | Encounter Summary ---
Author Organization [employer] Address [address] [facility] [address] [facility] [address] 7t [place] [address] Care Team Providers Care Assembler Truck Trailer Name Role Phone Naheed Zaman JOSIAH Primary Care Provider [phone] Encounter Details Date Type Department Care Team (Late st Contact Info) Description 08/01/2024 2:45 PM EST Office Visit [facility]RY [address] [place] [address] Gary, Coreen, OD [address] [place] [address] Hyperopia of both eyes (Primary Dx) Social History Tobacco Use Types [...] of this encounter Progress Notes * Coreen Vgea OD - 08/01/2024 2:45 PM EST MH glasses were dispensed, 1 of 2. documented in this encounter Plan of Treatment Upcoming Encounters Date Type Department Care Team (Late st Contact Info) Description 09/19/2024 3:00 PM EDT Office Visit [facility] MEDICINE [address] [place] [address] Rut Branham MD 230 [place] [address] 10/08/2024 1:00 PM EDT Office Visit [facility] MEDICINE [address] [place] [address] Naheed Zaman ANP 230 [place] [address] documented as of this encounter Visit Diagnoses Diagnosis Hyperopia of both eyes- Primary documented in this encounter Additional Health Concerns Assessment Noted Time PHQ-9 Depression Total Score: 25 024 8:12 AM EDT documented as of this encounter Care Teams Assembler Truck Trailer Relationship Specialty Start Date End Date Naheed Zaman ANP [address] [place] [address] PCP - General Family Medicine 01/18/22 documented as of this encounter
--- OUTSIDE RECORDS SUMMARY | 2024-08-06 13:39 | XMS_ITS | Encounter Summary ---
Author Organization [employer] Address [address] [facility] 7t [place] [address] Care Team Providers Care Footwear Stitcher Name Role Phone Naheed Zaman JOSIAH Primary Care Provider [phone] Encounter Details Date Type Department Care Team (Latest Contact Info) Description 07/16/2024 Travel Social History Tobacco Use Types Packs/Day [...] 09/19/2024 3:00 PM EDT Office Visit [facility] [address] [place] [address] Rut Branham MD [address] [place] [address] 10/08/2024 1:00 PM EDT Office Visit [facility] [address] [place] [address] Naheed Zaman ANP [address] [place] [address] documented as of this encounter Visit Diagnoses Not on filedocumented in this encounter Additional Health Concerns Assessment Noted Time PHQ-9 Depression Total Score: 25 024 8:12 AM EDT documented as of this encounter Care Teams Footwear Stitcher Relationship Specialty Start Date End Date Naheed Zaman ANP [address] [place] [address] PCP - General Family Medicine 01/18/22 documented as of this encounter
--- OUTSIDE RECORDS SUMMARY | 2024-08-06 13:39 | XMS_ITS | Encounter Summary ---
Author Organization [employer] Address 75 [facility] 7t [place] [address] Care Team Providers Care Company Miner Blasting Name Role Phone Naheed Zaman JOSIAH Primary Care Provider [phone] Reason for Visit * Reason Comments Med Refill Encounter Details Date Type Department Care Team ([facility] st Contact Info) Description 07/24/2024 Refill [facility] 230 [place] [address] Verona Estrada MD 230 [place] [address] Venous stasis dermatitis of both lower extremities Social History Tobacco Use Types Packs/Day Years [...] the past 12 months, has t he [employer] gas, oil or water company threatened to [...] Description 09/19/2024 3:00 PM EDT Office Visit [facility] MEDICINE [address] [place] [address] Rut Branham MD [address] [place] [address] 10/08/2024 1:00 PM EDT Office Visit [facility] [address] [place] [address] Naheed Zaman ANP [address] [place] [address] documented as of this encounter Visit Diagnoses Diagnosis Venous stasis dermatitis of both lower extremities documented in this encounter Additional Health Concerns Assessment Noted Time PHQ-9 Depression Total Score: 25 024 8:12 AM EDT documented as of this encounter Care Teams Company Miner Blasting Relationship Specialty Start Date End Date Naheed Zaman ANP [address] [place] [address] PCP - General Family Medicine 01/18/22 documented as of this encounter
--- OUTSIDE RECORDS SUMMARY | 2024-08-06 13:39 | XMS_ITS | Encounter Summary ---
Author Organization [employer] Address 75 [facility] 7t [place] [address] Care Team Providers Care Pipeman Name Role Phone Naheed Zaman JOSIAH Primary Care Provider [phone] Reason for Visit * Reason Onset Date Comments Med Refill 07/18/2024 Encounter Details Date Type Department Care Team (Late st Contact Info) Description 07/18/2024 Refill [facility] 230 [place] [address] Tristen Chen, APRIL 230 [place] [address] Uncomplicated opioid dependence (CMS/HCC) Social History Tobacco [...] Description 09/19/2024 3:00 PM EDT Office Visit [facility] MEDICINE [address] [place] [address] Rut Branham MD [address] [place] [address] 10/08/2024 1:00 PM EDT Office Visit [address] [address] Naheed Zaman ANP [address] [place] [address] documented as of this encounter Visit Diagnoses Diagnosis Uncomplicated opioid dependence (CMS/HCC) documented in this encounter Additional Health Concerns Assessment Noted Time PHQ-9 Depression Total Score: 25 024 8:12 AM EDT documented as of this encounter Care Teams Pipeman Relationship Specialty Start Date End Date Naheed Zaman ANP [address] [place] [address] PCP - General Family Medicine 01/18/22 documented as of this encounter
--- OUTSIDE RECORDS SUMMARY | 2024-08-06 13:39 | XMS_ITS | Encounter Summary ---
Author Organization [employer] [facility] Address [address] [facility] [place] [address] Care Team Providers Care Tunnel Kiln Repairer Name Role Phone Naheed Zaman Primary Care Provider Reason for Referral * Consultation (Routine) - Closed Specialty Diagnoses / Procedures Referred By Miladys t Referred To Contact Physical Therapy Diagnoses Class 3 severe obesity with serious comorbidity and body mass index (BMI) of 50.0 to 59.9 in adult, unspecified obesity type (CMS/HCC) Bilateral lower extremity edema Acute torn meniscus of knee, right, sequela Naheed Zaman ANP 230 [place] [address] Phone: tel: fax: [facility] [address] [place] [address] Phone: tel: fax: Referral ID Status Reason Start Date Expiration Date V isits Requested Visits Authorized [id number] Closed Specialty Services Required 08/05/2024 08/05/2025 20 20 Reason for Visit * Reason Comments Diabetes Pain Encounter Details Date Type Department Care Team (Latest Contact Info) Description 07/10/2024 2:00 PM EST Office Visit [facility] 230 [place] [address] Naheed Zaman ANP [address] [place] [address] Type 2 diabetes mellitus with hyperlipidemia (CMS/HCC) (Primary Dx); MICHAEL (generalized anxiety disorder); Severe episode of recurrent major depressive disorder, without psychotic features (CMS/HCC); Persistent proteinuria; Class 3 severe obesity with serious comorbidity and body mass index (BMI) of 50.0 to 59.9 in adult, unspecified obesity type (CMS/HCC); Spondylosis of lumbar region without myelopathy or radiculopathy; Bilateral lower extremity edema; BETSY (obstructive sleep apnea); Polyarthralgia; Acute torn meniscus of knee, right, sequela Social History Tobacco Use Types Packs/Day Years [...] Sign Reading Time Taken Comments Blood Pressure 156/84 07/10/2024 2:00 PM EST Pulse 73 07/10/2024 2:00 PM EST Temperature 36.7 ??C (98.1 ??F) 07/10/2024 2:00 PM ES T Respiratory Rate 16 07/10/2024 2:00 PM EST Oxygen Saturation 98% 07/10/2024 2:00 PM EST Inhaled Oxygen Concentration - - Weight - - Height - - Body Mass Index - - documented in this encounter Progress Notes * Naheed Zaman ANP - 07/10/2024 2:00 PM EST SUBJECTIVE: Ross Navarrete is a 43 y.o. year old male who presents for chronic disease management. Denies recent illness, injury, or hospitalization. PMH BETSY on CPAP (using), CTS, HTN, GERD, T2DM w/ neuropathy and nephropathy, HLD, gout, severe MDD,MICHAEL, OUD engaged in OBAT Acute Concerns: DM: now established w/ [facility] endo for nutrition guidance. Complications include nephropathy, neuropathy and fatty liver. Despite A1c being near goal, patient would very much benefit from GLP-1 given comorbidities of fatty liver and diabetes and BMI 59.08. He tells me today that Ozempic was not covered. He got abdominal pain with Trulicity but had previously been on max dose. Shoulder pain - now bilateral. Has been seeing pain mgmt for injections in the L shoulder. He is going to see ortho for shoulder pain as referred from their office. Plan at next pain mgmt visit is todiscuss neuromodulation for his L shoulder pain. Lab Results Component Value Date HGBA1C 6.7 (A) 07/10/2024 HGBA1C 6.0 04/24/2024 HGBA1C 7.5 (A) 02/13/2024 HGBA1C 8.0 (A) 10/17/2023 3. He is frustrated about recent psychiatric hospitalization in April. He reported SI to his previous psychiatrist and appears she requested a section 12. Discussed w/ pt why this transpired. FAMILY HISTORY: Mom of bladder cancer in her mid 30s. Grandpa of colon cancer at 72. Social History Social History Narrative Not on [...] of both lower extremities Candidiasis of perineum Past Surgical History: Procedure Laterality Date APPENDECTOMY HERNIA REPAIR Family History Problem Relation Name Age of Onset Cancer Mother bladder Cancer Maternal Grandfather colon Review of Systems Constitutional: Positive for fatigue. Negative for chills and fever. Gastrointestinal: Positive for abdominal pain. Musculoskeletal: Positive for arthralgias and myalgias. Negative for joint swelling and neck stiffness. Skin: Negative for rash. Psychiatric/Behavioral: Positive for sleep disturbance and suicidal ideas. The patient is nervous/anxious. OBJECTIVE: Vitals: 07/10/24 1400 BP: (!) 156/84 BP Location: Right arm Patient Position: Sitting BP Cuff Size: Adult long Pulse: 73 Resp: 16 Temp: 98.1 ??F (36.7 ??C) TempSrc: Temporal SpO2: 98% Physical Exam Constitutional: General: He is not in acute distress. Appearance: Normal appearance. He is obese. He is not ill-appearing. HENT: Head: Normocephalic and atraumatic. Eyes: General: No scleral icterus. Extraocular Movements: Extraocular movements intact. Pupils: Pupils are equal, round, and reactive to light. Cardiovascular: Rate and Rhythm: Normal rate. Pulmonary: Effort: Pulmonary effort is normal. No accessory muscle usage or respiratory distress. Musculoskeletal: Right lower leg: Edema present. Left lower leg: Edema present. Neurological: Mental Status: He is alert and oriented to person, place, and time. Comments: Ambulates w/ cane Psychiatric: Mood and Affect: Mood normal. Behavior: Behavior normal. ASSESSMENT/PLAN Ross was seen today for diabetes and pain. Diagnoses and all orders for this visit: Type 2 diabetes mellitus with hyperlipidemia (CMS/HCC) (Primary) Lab Results Component Value Date HGBA1C 6.7 (A) 07/10/2024 Could not tolerate trulicity d/t abd pain Would benefit from GLP1 for DM mgmt, wt loss and ASCVD risk reduction Recommend OZEMPIC (semaglutide) - rx;d at earlier visit but PA denied, will appeal/re-file He will continue Lantus 55 units at bedtime He is unable to tolerate metformin due to GI upset. - POCT HGB A1C - POCT Glucose - lisinopril 40 MG tablet; Take 1 tablet (40 mg) by mouth Once per day. MICHAEL (generalized anxiety disorder) Severe episode of recurrent major depressive disorder, without psychotic features (CMS/HCC) Following w/ psychiatry and therapy Persistent proteinuria - lisinopril 40 MG tablet; Take 1 tablet (40 mg) by mouth Once per day. Class 3 severe obesity with serious comorbidity and body mass index (BMI) of 50.0 to 59.9 in adult,unspecified obesity type (CMS/HCC) Requires cane for ambulation d/t torn meniscus in R knee, severe obesity Is trying to lose weight and again reinforced need for Daily exercise at least 30min, moderate intensity, incorporating both cardiovascular exercise and weight training. Difficult for Ross to do this with both his severe knee pain ( Adequate protein intake, Recommended at least 20 g per meal of protein to assist with satiety. Spondylosis of lumbar region without myelopathy or radiculopathy Requires cane for ambulation Bilateral lower extremity edema R60.0 He wants to be evaluated for an electric recliner - he has chronic BLE edema which he may benefit from recliner for. Placed referral to PT for eval for this. Polyarthralgia Torn meniscus R knee S83.206S He needs grab bars for the bathroom Follow Up: 3 mo DM, CP Current Outpatient Medications on File Prior to [...] 3 beta carotene (vitamin A) 3 MG (36775 UT) capsule TAKE 2 CAPSULES BY MOUTH EVERY DAY FOR 2 WEEKS Blood Glucose Monitoring Suppl (FreeStyle [place] Lite) w/Device kit TEST BLOOD SUGAR FOUR [...] following use. 473 mL 0 Continuous Glucose Exchange Consultant (FreeStyle Casey 2 [place]) device Scan sensor every 8 hours 1 each 0 Continuous Glucose Sensor (FreeStyle Casey 2 Sensor) misc Apply 1 sensor every 14 days 2 [...] needed for acid reflux 40 tablet 0 FREESTYLE LITE test strip TEST BLOOD SUGAR [...] PAINFUL AREA FOR UP TO 12 HRS liver oil-zinc oxide (Desitin) 40 % ointment [...] 0.5 mg once weekly 1 each 12 Sure Comfort Pen [place] 31G X 5 MM misc USE FOUR TIMES DAILY WITH INSULIN thiamine (Vitamin B-1) 50 MG tablet Take 50 mg by mouth in the morning. TRUEplus Lancets 33G misc TEST BLOOD SUGAR FOUR TIMES DAILY Vitron-C 65-125 MG tablet Take 1 tablet by mouth at bedtime. No current facility-administered medications on file prior to visit. Leslie ROSSI provided Bulgarian interpretation. documented in this encounter Plan of Treatment Upcoming Encounters Date Type Department Care Team (Late st Contact Info) Description 09/19/2024 3:00 PM EDT Office Visit [facility] [address] [place] [address] Rut Branham MD 230 [place] [address] 10/08/2024 1:00 PM EDT Office Visit [facility] [address] [place] [address] Naheed Zaman ANP 230 [place] [address] Scheduled Referrals Name Type Priority Associated Diagnoses Orde r Schedule Referral to Physical Therapy Outpatient Referral Routine Class 3 severe obesity with serious comorbidity and body mass index (BMI) of 50.0 to 59.9 in adult, unspecified obesity type (CMS/HCC) Bilateral lower extremity edema Acute torn meniscus of knee, right, sequela Expected: 08/05/2024 (Approximate), Expires: 08/05/2025 documented as of this encounter Procedures Procedure Name Priority Date/Time Associated Diagnosis Comments POCT GLYCATED HEMOGLOBIN, TOTAL Routine 07/10/2024 2:05 PM EST Type 2 diabetes mellitus with hyperlipidemia ([facility]/HCC) POCT GLUCOSE Routine 07/10/2024 2:02 PM EST Type 2 diabetes mellitus with hyperlipidemia (CMS/HCC) documented in this encounter Results * (ABNORMAL) POCT HGB A1C (07/10/2024 2:05 PM EST) Hemoglobin A1C 6.7(A) 4.0 - 6.0 % QC Media Lot # [id number] Lot# Expiration Date Blood 07/10/2024 2:05 PM EST us Naheed RAHMAN POINT OF CARE TEST ENTER/EDIT OR DERABLES Final Result * POCT Glucose (07/10/2024 2:02 PM EST) Glucose Blood, POC 127 60 - 200 mg/dL QC Media Lot # [id number] Lot# Expiration Date ,025 Blood Capillary blood specimen / Unknown 07/10/2024 2:02 PM EST Result Guillermo RAHMAN POINT OF CARE TEST ENTER/EDIT OR DERABLES Final Result documented in this encounter Visit Diagnoses Diagnosis Type 2 diabetes mellitus with hyperlipidemia (CMS/HCC)- Primary MICHAEL (generalized anxiety disorder) Generalized anxiety disorder Severe episode of recurrent major depressive disorder, without psychotic features (CMS/HCC) Persistent proteinuria Class 3 severe obesity with serious comorbidity and body mass index (BMI) of 50.0 to 59.9 in adult, unspecified obesity type (CMS/HCC) Spondylosis of lumbar region without myelopathy or radiculopathy Bilateral lower extremity edema BETSY (obstructive sleep apnea) Obstructive sleep apnea (adult) (pediatric) Polyarthralgia Pain in joint, multiple sites Acute torn meniscus of knee, right, sequela documented in this encounter Additional Health Concerns Assessment Noted Time PHQ-9 Depression Total Score: 25 024 8:12 AM EDT documented as of this encounter Care Teams Tunnel Kiln Repairer Relationship Specialty Start Date End Date Naheed Zaman ANP [address] [place] [address] PCP - General Family Medicine 01/18/22 documented as of this encounter
--- OUTSIDE RECORDS SUMMARY | 2024-08-06 13:39 | XMS_ITS | Encounter Summary ---
Author Organization [employer] Address 75 [facility] 7t [place] [address] Care Team Providers Care Legger Press Operator Name Role Phone Naheed Zaman JOSIAH Primary Care Provider [phone] Encounter Details Date Type Department Care Team (Latest Contact Info) Description 07/25/2024 Travel Social History Tobacco Use Types Packs/Day [...] Description 09/19/2024 3:00 PM EDT Office Visit [facility] MED[facility] [address] [place] [address] Rut Branham MD [address] [place] [address] 10/08/2024 1:00 PM EDT Office Visit [facility] [address] [place] [address] Naheed Zaman ANP [address] [place] [address] documented as of this encounter Visit Diagnoses Not on filedocumented in this encounter Additional Health Concerns Assessment Noted Time PHQ-9 Depression Total Score: 25 024 8:12 AM EDT documented as of this encounter Care Teams Legger Press Operator Relationship Specialty Start Date End Date Naheed Zaman ANP [address] [place] [address] PCP - General Family Medicine 01/18/22 documented as of this encounter
--- OUTSIDE RECORDS SUMMARY | 2024-08-06 13:39 | XMS_ITS | Encounter Summary ---
Author Organization [employer] [facility] Address [address] [place] [address] [place] [address] Care Team Providers Care Cone Sewer Name Role Phone Naheed Zaman Primary Care Provider Reason for Visit * Reason Comments Med Refill Encounter Details Date Type Department Care Team (Late st Contact Info) Description 02/02/[address] [facility] MED[facility]INE [address] [place] [address] Rut Branham MD [address] [place] [address] Uncomplicated opioid dependence (CMS/HCC) Social History Tobacco [...] Description 09/19/2024 3:00 PM EDT Office Visit [facility] MED[facility] [address] [place] [address] Rut Branham MD [address] [place] [address] 10/08/2024 1:00 PM EDT Office Visit [facility] [address] [place], [place] [phone] Naheed Zaman ANP 230 [place], [place] [phone] documented as of this encounter Visit Diagnoses Diagnosis Uncomplicated opioid dependence (CMS/HCC) documented in this encounter Additional Health Concerns Assessment Noted Time PHQ-9 Depression Total Score: 6 11/19/19 23 3:29 PM EDT documented as of this encounter Care Teams Cone Sewer Relationship Specialty Start Date End Date Naheed Zaman ANP [address] [place] [address] PCP - General Family Medicine 01/18/22 documented as of this encounter
--- OUTSIDE RECORDS SUMMARY | 2024-08-06 13:39 | XMS_ITS | Encounter Summary ---
Author Organization [employer] Address [address] [facility] [address] [place] [address] Care Team Providers Care Digital Color Press Operator Name Role Phone Naheed Zaman Primary Care Provider [phone] Reason for Visit * Reason Onset Date Comments Prior Authorization 07/12/2024 Ozempic Encounter Details Date Type Department Care Team ([facility] st Contact Info) Description 07/12/2024 Telephone [facility] [address] [place] [address] Naheed Zaman ANP [address] [place] [address] Prior Authorization (Ozempic) Social History Tobacco Use [...] the past 12 months, has t he [employer], gas, oil or water [employer] threatened to shut off services in your [...] * Telephone Encounter - Nikia Brito - 07/18/2024 10:22 AM EST ABELARDO Wu signed and faxed to [employer]. Confirmation received and sent to [facility]. If patient calls to check status on above, please advise them to contact Pharmacy . * Telephone Encounter - Nikia Brito - 07/12/2024 1:48 PM EST ABELARDO Wu from [employer] placed on PCP desk for signature. documented in this encounter Plan of Treatment Upcoming Encounters Date Type Department Care Team (Late st Contact Info) Description 09/19/2024 3:00 PM EDT Office Visit [facility] [address] [place] [address] Rut Branham MD [address] [place] [address] 10/08/2024 1:00 PM EDT Office Visit [facility] [address] [place] [address] Naheed Zaman ANP [address] [place] [address] documented as of this encounter Visit Diagnoses Not on filedocumented in this encounter Additional Health Concerns Assessment Noted Time PHQ-9 Depression Total Score: 25 024 8:12 AM EDT documented as of this encounter Care Teams Digital Color Press Operator Relationship Specialty Start Date End Date Naheed Zaman ANP [address] [place] [phone] PCP - General Family Medicine 01/18/22 documented as of this encounter
--- OUTSIDE RECORDS SUMMARY | 2024-08-06 13:39 | XMS_ITS | Encounter Summary ---
Author Organization [employer] Address [address] [facility] [address] [place] [address] Care Team Providers Care Refrigerator Cabinetmaker Name Role Phone Sofia Mitchell JOSIAH Primary Care Provider [phone] Encounter Details Date Type Department Care Team ([facility] st Contact Info) Description 08/06/2024 Orders Only GENERIC EXTERNAL DATA DEPARTMENT Provider, [...] 3:00 PM EDT Office Visit [facility] [address] [place] [phone] Rut Branham MD [address] [place] [address] 10/08/2024 1:00 PM EDT Office Visit [facility] [address] [place] [phone] Sofia Mitchell ANP [address] [place] [address] documented as of this encounter Procedures Procedure Name Priority Date/Time Associated Diagnosis Comments XR CHEST 1 VIEW Routine 08/06/2024 12:06 PM EDT CBC WITH AUTO DIFFERENTIAL Routine 08/06/2024 10:13 AM EDT PROTHROMBIN TIME-INR Routine 08/06/2024 10:13 AM EDT documented in this encounter Results * XR Chest 1 View (08/06/2024 12:06 PM EDT) Anatomical Region Laterality Modality Chest Radiographic Lupe ging 08/06/2024 12:0 6 PM EDT Narrative 08/06/2024 12:43 PM EDT ? [facility] ?[address] ?[place] [address] ?XRay Report ? Signed ? Patient: Navarrete,Ross L ?MR#: [id number] ?? [id number] ? : 1980 ?Acct:[id number] ? Age/Sex: 43 / M ?ADM Date: 08/06/24 ? Loc: HO.ED ? Attending Dr: ? Ordering Physician: Matilda Jones MD ?? Date of Service: 08/06/24 ?? Procedure(s): XR chest 1V ?? Accession Number(s): [id number] ? cc: Matilda Jones MD; SOFIA MITCHELL NP ? EXAMINATION: ?? XR CHEST ? CLINICAL INFORMATION: ?? cough ? COMPARISON: ?? 06/04/2024. ? TECHNIQUE: ?? Frontal view of the chest was obtained. ? FINDINGS: ?? The cardiac, hilar, and mediastinal contours are normal. ? The lungs are clear bilaterally. No pneumothorax or effusion. ? No focal osseous or soft tissue abnormality. ? XR/XR chest 1V ?? IMPRESSION: ?? Normal chest. ? Electronically signed by: ??Hamzah Mcdaniels MD ??08/06/2024 12:40 PM EDT RP ? Dictated By: ?Hamzah Mcdaniels MD ? Signed By: ?<Electronically signed by Hamzah Mcdaniels MD in OV> ?08/06/24 1240 ? DD/ 1206 ? TD/TT: 08/06/24 1218 ? Senior Military Analyst: ? Procedure Note Maria T Cronin - 08/06/[address] [address] XRay Report Signed Patient: Ross Navarrete LMR#: [id number] : 1980Acct:[id number] Age/Sex: 43 / MADM Date: 08/06/24 Loc: HO.ED Attending Dr: Ordering Physician: Matilda Jones MD Date of Service: 08/06/24 Procedure(s): XR chest 1V Accession Number(s): [id number] cc: Matilda Jones MD; SOFIA MITCHELL NP EXAMINATION: XR CHEST CLINICAL INFORMATION: cough COMPARISON: 06/04/2024. TECHNIQUE: Frontal view of the chest was obtained. FINDINGS: The cardiac, hilar, and mediastinal contours are normal. The lungs are clear bilaterally. No pneumothorax or effusion. No focal osseous or soft tissue abnormality. XR/XR chest 1V IMPRESSION: Normal chest. Electronically signed by: Hamzah Mcdaniels MD 08/06/2024 12:40 PM EDT RP Dictated By: Hamzah Mcdaniels MD Signed By: <Electronically signed by Hamzah Mcdaniels MD in OV> 08/06/24 1240 DD/ 1206 TD/TT: 08/06/24 1218 Senior Military Analyst: [facility] External Provider IMG XR PROCEDURES Final Result * Prothrombin Time-INR (08/06/2024 10:13 AM EDT) Prothrombin Time 11.7 10.9 - 12.4 SEC [facility] INTERNATIONAL NORM RATIO 1.0 0.9 - 1.1 [facility] Comment:INTERNATIONAL NORMAL IZED RATIO (INR) REFERENCE RANGES Reference RangeFor patients not on anticoagulant therapy: 0.9 - 1.1INR ranges for oral anticoagulanttherapy:For prevention and treatment of venous thrombosis and pulmonary embolism: 2.0 - 3.0For acute myocardial infarction with aspirin therapy: 2.0 - 3.0For acute myocardial infarction without aspirin therapy: 3.0 - 4.0For patients with mechanical prosthetic heart valves: 2.5 - 3.5 08/06/2024 10:1 3 AM EDT 08/06/2024 10:16 AM EDT Generic External Data Provider LAB BLOOD ORDERAB LES Final Result [facility] [address] [place] [phone] * (ABNORMAL) CBC auto differential (08/06/2024 10:13 AM EDT) White Blood Count 7.3 4.8 - 10.8 X10*3/uL [facility] Red Blood Count 4.61 4.60 - 5.80 X10*6/uL [facility] Hemoglobin 13.1(L) 14.0 - 18.0 g/dl [facility] Hematocrit 39.1(L) 42.0 - 52.0 % [facility] Mean Corpuscular Volume 84.8 80.0 - 98.0 fL [facility] Mean Corpuscular Hemoglobin 28.4 27.0 - 33.0 pg [facility] Mean Corpuscular HGB Conc 33.5 31.0 - 36.0 g/dl [facility] Red Cell Distribution Width 13.2 11.0 - 16.0 % [facility] Platelet Count 126(L) 160 - 400 X10*3/uL [facility] Mean Platelet Volume 11.4 9.4 - 12.4 fL [facility] Neutrophils Percent Auto 67.2 45 - 73 % [facility] Imm Gran Pct Auto 0.4 0.0 - 0.4 % [facility] Lymphocytes Percent Auto 24.9 20 - 40 % [facility] Monocytes Percent Auto 4.8 2 - 11 % [facility] Eosinophils Percent Auto 2.3 0 - 4 % [facility] Basophils Percent Auto 0.4 0 - 2 % [facility] NRBC Pct Auto 0.0 0.0 - 0.2 /100WBC [facility] Neutrophils Absolute Auto 4.9 2.0 - 8.3 x10*3/uL [facility] Imm Gran Abs Auto 0.03 0.00 - 0.03 X10*3/uL [facility] Lymphocytes Absolute Auto 1.8 1.2 - 4.9 X10*3/uL [facility] Monocytes Absolute Auto 0.4 0.1 - 1.2 X10*3/uL [facility] Eosinophils Absolute Auto 0.2 0.0 - 0.4 X10*3/uL [facility] Basophils Absolute Auto 0.0 0.0 - 0.2 X10*3/uL [facility] NRBC Abs Auto 0.000 0.0 - 0.012 X10*3/uL [facility] 08/06/2024 10:1 3 AM EDT 08/06/2024 10:16 AM EDT us Generic External Data Provider LAB BLOOD ORDERAB LES Final Result [facility] [address] [place] [address] [phone] documented in this encounter Visit Diagnoses Not on filedocumented in this encounter Additional Health Concerns Assessment Noted Time PHQ-9 Depression Total Score: 25 024 8:12 AM EDT documented as of this encounter Care Teams Refrigerator Cabinetmaker Relationship Specialty Start Date End Date Sofia Mitchell ANP [address] [place] [address] PCP - General Family Medicine 01/18/22 documented as of this encounter
--- OUTSIDE RECORDS SUMMARY | 2024-08-06 13:40 | XMS_ITS | Encounter Summary ---
Author Organization [employer] Address [address] [facility] [address] [place] [address] Care Team Providers Care Drugless Physician Name Role Phone Naheed Zaman Primary Care Provider [phone] Reason for Visit * Reason Onset Date Comments Durable Medical Equipment 10/04/2022 Encounter Details Date Type Department Care Team (Late st Contact Info) Description 10/04/2022 Telephone [facility] [address] [place] [address] Naheed Zaman ANP [address] [place] [address] Durable Medical Equipment Social History Tobacco Use [...] for Compressions socks. Please contact pt at [phone] documented in this encounter Plan of Treatment Upcoming Encounters Date Type Department Care Team (Late st Contact Info) Description 09/19/2024 3:00 PM EDT Office Visit [facility] [address] [place] [phone] Rut Branham MD [address] [place] [phone] 10/08/2024 1:00 PM EDT Office Visit [address] [address] Naheed Zaman ANP [address] [place] [phone] documented as of this encounter Visit Diagnoses Not on filedocumented in this encounter Care Teams Drugless Physician Relationship Specialty Start Date End Date Naheed Zaman ANP [address] [place] [phone] PCP - General Family Medicine 01/18/22 documented as of this encounter
--- OUTSIDE RECORDS SUMMARY | 2024-08-06 13:40 | XMS_ITS | Clinical Summary ---
Author Organization [employer] Address [address] [facility] [address] [place] [address] Care Team Providers Care Manager Of Corporate Name Role Phone Sofia Mitchell JOSIAH Primary Care Provider Allergies Active Allergy Reactions Criticality Noted Date Comments Shellfish Allergy 05/02/2022 Medications * This document contains information received from the source organization and may not represent a complete record from that organization. Alcohol Swabs (Alcohol Prep) 70 % pads USE FOUR TIMES DAILY WITH INSULIN Active Blood Glucose Monitoring Suppl (FreeStyle [place] Lite) w/Device kit TEST BLOOD SUGAR FOUR TIMES DAILY Active FREESTYLE LITE test strip TEST BLOOD SUGAR FOUR TIMES DAILY Active glucose blood (FREESTYLE LITE) test strip check fingerstick 4 times a day Active Sure Comfort Pen Acton 31G X 5 MM misc USE FOUR [...] Active beta carotene (vitamin A) 3 MG (04567 UT) capsule TAKE 2 CAPSULES BY MOUTH [...] Active Blood Pressure Monitor kitIndications:P ulmonary hypertension ([facility]) 1 kit in the morning. 1 kit 024 Active metoclopramide (Reglan) 10 MG tablet 1 tablet as needed every 6 hrs for nausea/vomiting 40 tablet 024 Active atorvastatin (Lipitor) 10 MG tabletIndication s:Type 2 diabetes mellitus with hyperlipidemia ([facility]/HCC) ([facility]) Take 1 tablet (10 mg) by mouth [...] use. 473 mL 024 Active Continuous Glucose Applications Architect (FreeStyle Casey 2 Brandon) deviceIndication s:Diabetes mellitus with albuminuria (CMS/HCC) ([facility]) Scan sensor every 8 hours 1 each 024 Active Continuous Glucose Sensor (FreeStyle Casey 2 Sensor) miscIndications: Diabetes mellitus with albuminuria (CMS/HCC) ([facility]) Apply 1 sensor every 14 days 2 each 024 Active glucose blood (FreeStyle Precision Lefty Test) test stripIndications :Diabetes mellitus with albuminuria (CMS/HCC) ([facility]) Use to test blood sugar 3 times daily 100 each 12 024 2024 Active glucose (BD Glucose) 5 g chewable [...] cations:Type 2 diabetes mellitus with hyperlipidemia (CMS/HCC) (CMS/HCC) 0.25 subcutaneous once weekly for 4 weeks, then increase to 0.5 mg once weekly 1 each 12 024 Active ammonium lactate (Amlactin) 12 % creamIndications :Venous stasis dermatitis of both lower extremities Apply topically if needed for dry skin. 385 g 024 2024 Active liver oil-zinc oxide (Desitin) 40 % ointment Apply topically if needed in the morning and at bedtime for irritation. 56 g 024 Active Lantus SoloStar 100 UNIT/ML pen INJECT 55 UNITS SUBCUTANEOUSLY EVERY NIGHT 15 mL 3 025 Active meloxicam (Mobic) 15 MG tabletIndication s:Chronic low back pain without sciatica, unspecified back pain laterality TAKE 1 TABLET BY MOUTH EVERY DAY NEEDED (for pain) 30 tablet 3 025 Active lisinopril 40 MG tabletIndication s:Type 2 diabetes mellitus with hyperlipidemia (CMS/HCC) (CMS/HCC),Persis tent proteinuria Take 1 tablet (40 mg) by mouth Once per day. 90 tablet 1 025 Active FLUoxetine (PROzac) 20 MG capsuleIndicatio ns:Severe episode of recurrent major depressive disorder, without psychotic features (CMS/HCC) Take 3 capsules (60 mg) by mouth in the morning. 90 capsule 1 025 2024 Active hydrOXYzine pamoate (Vistaril) 25 MG capsuleIndicatio ns:MICHAEL (generalized anxiety disorder) Take 1 capsule (25 mg) by mouth if needed in the morning and at bedtime for anxiety. 30 capsule 025 2024 Active Suboxone 8-2 MG SL filmIndications: Uncomplicated opioid dependence (CMS/HCC) Place 3 Film under the tongue Once per day. 84 Film 1 025 2024 Active betamethasone valerate (Valisone) 0.1 % creamIndications :Venous stasis dermatitis of both lower extremities APPLY TOPICALLY TWICE DAILY IN THE MORNING AND AT BEDTIME NEEDED FOR DRY SKIN 45 g 2 025 Active lisinopril 20 MG tabletIndication s:Type 2 diabetes mellitus with hyperlipidemia (CMS/HCC) (CMS/[facility]),Persis tent proteinuria Take 1 tablet (20 mg) by mouth Once per day. 90 tablet 1 024 2024 Discontinued( Reorder (will not trigger notification to Pharmacy)) betamethasone valerate (Valisone) 0.1 % creamIndications :Venous stasis dermatitis of both lower extremities Apply topically if needed in the morning and at bedtime (dryness). 45 g 2 024 2024 Discontinued FLUoxetine (PROzac) 40 MG capsuleIndicatio ns:Severe episode of recurrent major depressive disorder, without psychotic features (CMS/[facility]) TAKE 1 CAPSULE BY MOUTH EVERY DAY 30 capsule 2 024 2024 Discontinued Suboxone 8-2 MG SL filmIndications: Uncomplicated opioid dependence (CMS/HCC) Place 3 Film under the tongue Once per day for 28 days. 84 Film 025 2024 Discontinued( Reorder (will not trigger notification to Pharmacy)) Active Problems Problem Noted Date Diagnosed Date Acute torn meniscus of knee, right, sequela 07/27 Candidiasis of perineum 05/20/2024 Assessment & Plan [...] Health Integration Plan Internal Follow up with [facility] Patient Self Plan Patient to reach out to [facility] team as needed, Comply with medication [...] Health Integration Plan Internal Follow up with [facility] Patient Self Plan Patient to reach out to [facility] team as needed, Comply with medication [...] Health Integration Plan Internal Follow up with [facility] Patient Self Plan Patient to utilize skills provided in intervention , [facility] as needed, and Patient to reach [...] Health Integration Plan Internal Follow up with [facility] External OP psychiatry Referral Patient Self Plan Patient to reach out to [facility] team as needed, Comply with medication , Patient to engage in OP therapy , and Patient to reach out to [facility] as needed Assessment & Plan (09/20/2023 10:06 AM EDT): New/Additional Services needed Off-site services for Behavioral Health Integration Plan External OP therapy referral Patient Self Plan Patient to utilize skills provided in intervention , Patient to reach out to [facility] team as needed, Comply with medication [...] explained that she tried referring pt to [facility] and other centers and pt;s can not be evaluated for plastic surgery w current BMI -I request referral to be sent to [facility] but was explained is the same [...] hypertension 05/10/2017 Overview (07/28/2022): Mild, ECHO 10/21/10 [facility], EF 65-70% H. pylori infection 05/10/2017 Overview (07/28/2022): + serology 08/07/2009, uncertain if treated Gout 05/10/2017 Elevated liver enzymes 05/10/2017 Overview (07/28/2022): fatty liver Arthritis 05/10/2017 Overview (07/28/2022): Mild L knee, Mod L shoulder arthropathy Asthma 05/10/2017 Spondylosis of lumbar region without myelopathy or radiculopathy 04/26/2017 Overview (07/28/2022): Saw [facility] Rheumatology CTS (carpal tunnel syndrome) 04/26/2017 Assessment & Plan (03/02/2023 7:42 AM EDT): Hx of CTS bl hands-w PE consistent w it likely associated w obesity -request nurse staff px of bl wrist brace today -referred to hand surgeon by pt request-I advised pt to hold on referral until eval response w nellie but states only helped partially before Polyneuropathy [...] sleep apnea) 05/18/2015 Overview (07/28/2022): Polysomnography 08/05/2009, [facility] :On cpap 14 cm H2O 10/23/2017 Home Sleep Study insufficient data. 08/2018 - Pulm ordered split night study. Proteinuria 05/18/2015 Encounters * This document contains information received from the source organization and may not represent a complete record from that organization. Date Type Department Care Team Description 08/06/2024 Telephone [facility] MED[facility] [address] [place] [phone] Sofia Mitchell ANP Prior Authorization (Ozempic) 08/06/[address] [address] Sofia Mitchell ANP Durable Medical Equipment (Grab bars) 08/06/2024 Orders Only GENERIC EXTERNAL DATA DEPARTMENT Provider, Generic External Data 08/05/[address] [address] Sofia Mitchell ANP Nurse Triage 08/02/2024 Outside Procedure [facility] OPTOMET[facility] [address] [place] [phone] Gary, Coreen, OD Presbyopia (Primary Dx) 08/01/2024 2:45 PM EST Office Visit [facility] [address] [place] [phone] Gary, Coreen, OD Hyperopia of both eyes (Primary Dx) 07/25/2024 3:00 PM EST Office Visit [facility] [address] [place] [phone] Rut Branham MD Opioid type dependence, continuous ([facility]/HCC) (Primary Dx); Severe episode of recurrent major depressive disorder, without psychotic features ([facility]/HCC) 07/25/2024 Travel 07/24/2024 Refill [facility] [address] [place] [phone] Verona Estrada MD Venous stasis dermatitis of both lower extremities 07/18/2024 Refill [facility] [address] [place] [phone] Tristen Chen RN Uncomplicated opioid dependence ([facility]/HCC) 07/16/2024 Travel 07/12/[address] [address] Sofia Mitchell ANP Prior Authorization (Ozempic) 07/10/2024 2:00 PM EST Office Visit [address] [address] Sofia Mitchell ANP Type 2 diabetes mellitus with hyperlipidemia ([facility]/HCC) (Primary Dx); MICHAEL (generalized anxiety disorder); Severe episode of recurrent major depressive disorder, without psychotic features (CMS/HCC); Persistent proteinuria; Class 3 severe obesity with serious comorbidity and body mass index (BMI) of 50.0 to 59.9 in adult, unspecified obesity type ([facility]); Spondylosis of lumbar region without myelopathy or radiculopathy; Bilateral lower extremity edema; BETSY (obstructive sleep apnea); Polyarthralgia; Acute torn meniscus of knee, right, sequela 07/10/2024 Travel 07/10/[address] [address] Anette Carrion MA Chart prep 07/09/[address] [address] Nikki Díaz RN Right shoulder X ray 07/03/2024 2:00 PM EST Office Visit [facility] [address] [place] [phone] Lyndsay Tariq NP Chronic right shoulder pain (Primary Dx); Elevated blood pressure reading in office with diagnosis of hypertension 07/03/2024 Orders Only GENERIC EXTERNAL DATA DEPARTMENT Provider, Generic External Data 07/03/2024 Travel 06/27/2024 11:15 AM EST Office Visit [facility] OPT[facility] [address] [place] [address] Kaitlyn Burk OD Type 2 diabetes mellitus without ophthalmic manifestations (CMS/HCC) (Primary Dx); Presbyopia 06/27/2024 10:30 AM EST Clinical Support [facility] [address] [place] [phone] Tristen Chen RN Opioid type dependence, continuous (CMS/HCC) (Primary Dx) 06/27/2024 Travel 06/26/2024 Refill [facility] [address] [place] [phone] Heidy Taylor MD Chronic low back pain without sciatica, unspecified back pain laterality 06/21/2024 Telephone [facility] [address] [place] [phone] Sofia Mitchell ANP 06/18/[address] [address] Tristen Chen RN Uncomplicated opioid dependence (CMS/HCC) 06/09/[address] [address] Sofia Mitchell, JOSIAH 06/07/[address] [address] Sofia Mitchell, ANP 06/04/2024 9:40 AM EST Office Visit [facility] [address] [place] [address] Fermin Steward MD Chest pain, unspecified type (Primary Dx); Acute intractable headache, unspecified headache type; Hypertension, unspecified type 06/04/2024 Orders Only GENERIC EXTERNAL DATA DEPARTMENT Provider, Generic External Data 05/30/2024 2:45 PM EST Office Visit [address] [address] Rut Branham MD Opioid type dependence, continuous (CMS/HCC) (Primary Dx); Severe episode of recurrent major depressive disorder, without psychotic features (CMS/HCC) 05/30/2024 Travel 05/23/2024 Refill [facility] [address] [place] [phone] Tristen Chen, APRIL Uncomplicated opioid dependence ([facility]/HCC) 05/23/[address] [address] Judi Brumfield MA June recall 05/23/2024 Refill [facility] [address] [place] [phone] Sofia Mitchell ANP Severe episode of recurrent major depressive disorder, without psychotic features ([facility]/HCC) 05/20/2024 2:20 PM EST Office Visit [facility] [address] [place] [address] Desirae Cowan MD Candidiasis of perineum (Primary Dx) 05/17/2024 Orders Only GENERIC EXTERNAL DATA DEPARTMENT Provider, Generic External Data 05/16/2024 Orders Only GENERIC EXTERNAL DATA DEPARTMENT Provider, Generic External Data 05/16/[address] [address] Sofia Mitchell ANP 05/14/[address] [address] Sofia Mitchell ANP from Last 3 Months [...] EST Inhaled Oxygen Concentration - - Weight 161 kg (355 lb) 07/03/2024 2:05 PM EST Height 165.1 cm (5' 5 ) 07/03/2024 2:05 PM EST Body Mass Index 59.08 07/03/2024 2:05 PM EST Plan of Treatment Upcoming Encounters Date Type Department Care Team (Late st Contact Info) Description 09/19/2024 3:00 PM EDT Office Visit [facility] MED[facility]INE [address] [place], [place] [phone] Rut Branham MD [address] [place], [place] [phone] 10/08/2024 1:00 PM EDT Office Visit [facility] MED[facility] [address] [place], [place] [phone] Sofia Mitchell ANP [address] [place], [place] [phone] Health Maintenance Due Date Last Done Comments Dental Oral Exam 1980 Dental Prophylaxis 1980 Dental X-Ray: Bitewings 1980 Dental X-Ray: Full Mouth 1981 Diabetes: Foot Exam 11/14/1991 Family Planning (PISQ) 1996 Pneumococcal Vaccine: Pediatrics (0 to 5 Years) and At-Risk Patients (6 to 49) Years) (1 of 2 - PCV) 2000 Hepatitis B Vaccines (2 of 3 - 19+ 3-dose series) 11/14/2023 10/17/2023 COVID-19 Vaccine (3 - 2023- season) 2024 12/29/2020, 12/10/2020 Influenza Vaccine (#1) 2024 2, 02/27/2012, 01/27/2011, Additional history exists SDOH Screening 08/30/2024 08/31/2023 Alcohol/Substance Use Screening 01/04/2025 01/05/2024 Depression Monitoring (PHQ-9) 01/07/2025 07/10/2024, 01/19/2024 Diabetes: Hemoglobin A1C 01/07/2025 025, 04/24/2024, 02/13/2024, Additional history exists Lipid Panel 04/24/2025 04/24/2024, 06/14/2023 Depression Screening 07/10/2025 07/10/2024, 01/19/20 24 Tobacco Screening 07/16/2025 07/16/2024 Eye Exam 06/27/2026 06/27/2024, 05/31, 06/27/2024, Additional history exists Zoster Vaccines (1 of 2) 11/14/2031 DTaP/Tdap/Td Vaccines (3 - Td or Tdap) 10/16/2033 10/17/2023, 03/15/2011 RSV Patients and Patients Aged 60 years or older (1 - 1-dose 75+ series) 2056 HIV Screening Completed 12/13/2023, 12/16/2021 Hepatitis C Screening Completed 07/03/2024 , 10/11/2023, 12/16/2021 HIB Vaccines Aged Out No longer eligi ble based on patient's age to complete this topic HPV Vaccines Aged Out No longer eligi ble based on patient's age to complete this topic Hepatitis A Vaccines Aged Out No long er eligible based on patient's age to complete [...] 1 VIEW Routine 08/06/2024 12:06 PM EDT PROTHROMBIN TIME-INR Routine 08/06/2024 10:13 AM EDT CBC WITH AUTO DIFFERENTIAL Routine 08/06/2024 10:13 AM EDT POCT RAMSES-14 URINE DRUG SCREEN Routine 07/25/2024 2:14 PM EST Opioid type dependence, continuous (CMS/HCC) POCT GLYCATED HEMOGLOBIN, TOTAL Routine 07/10/2024 2:05 PM EST Type 2 diabetes mellitus with hyperlipidemia (CMS/HCC) POCT GLUCOSE Routine 07/10/2024 2:02 PM EST Type 2 diabetes mellitus with hyperlipidemia (CMS/HCC) T-SPOT(R).TB Routine 07/03/2024 1:30 PM EST HEPATITIS PANEL, GENERAL Routine 07/03/2024 1:30 PM EST DRUG MONITOR, PANEL 1, SCREEN, URINE Routine 07/03/2024 1:30 PM EST MICHAEL (generalized anxiety disorder) POCT RAMSES-14 URINE DRUG SCREEN Routine 06/27/2024 [...] AUTO DIFFERENTIAL Routine 06/04/2024 11:28 AM EST POCT RAMSES-14 URINE DRUG SCREEN Routine 05/30/2024 1:16 PM EST Opioid type dependence, continuous (CMS/HCC) POCT URINALYSIS DIPSTICK Routine 05/20/2024 3:21 PM EST Candidiasis of perineum MAGNESIUM [...] 6:10 PM EST HEPATIC FUNCTION PANEL Routine 05/16/2024 6:10 PM EST ETHANOL Routine 05/16/2024 6:10 PM EST CBC WITH AUTO DIFFERENTIAL Routine 05/16/2024 6:10 PM EST US ABDOMEN COMPLETE WITH ELASTOGRAPHY Routine 05/09/2024 9:41 AM EST LIPID PANEL, STANDARD Routine 04/24/2024 11:23 AM EST HIV 1/2 ANTIGEN/ANTIBODY, FOURTH GENERATION W/RFL Routine 12/13/2023 11:48 AM EDT Elevated erythrocyte sedimentation rate 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 Anatomical Region Laterality Modality Chest Radiographic Lupe ging 08/06/2024 12:0 6 PM EDT Narrative 08/06/2024 12:43 PM EDT ? [facility] ?[address] ?[place] [address] ?XRay Report ? Signed ? Patient: Navarrete,Ross L ?MR#: [id number] ?? [id number] ? : 1980 ?Acct:[id number] ? Age/Sex: 43 / M ?ADM Date: 03/11/25 ? Loc: HO.ED ? Attending Dr: ? Ordering Physician: Matilda Jones MD ?? Date of Service: 08/06/24 ?? Procedure(s): XR chest 1V ?? Accession Number(s): [id number] ? cc: Matilda Jones MD; SOFIA MITCHELL [...] DD/ 1206 ? TD/TT: 08/06/24 1218 ? Registered Nurse Maternal Child: ? Procedure Note Donramirezter, Image - 08/06/2024 [place] [address] XRay Report Signed Patient: Ross Navarrete LMR#: [id number] : 1980Acct:[id number] Age/Sex: 43 / MADM Date: 08/06/24 Loc: HO.ED Attending Dr: Ordering Physician: Matilda Jones MD Date of Service: 08/06/24 Procedure(s): XR chest 1V Accession Number(s): [id number] cc: Matilda Jones MD; SOFIA MITCHELL NP [...] Hamzah Mcdaniels MD 08/06/2024 12:40 PM EDT Dictated By: Hamzah Mcdaniels MD Signed By: <Electronically signed by Hamzah Mcdaniels MD in OV> 08/06/24 1240 DD/ 1206 TD/TT: 08/06/24 1218 Registered Nurse Maternal Child: [facility] External Provider IMG XR PROCEDURES Final Result * (ABNORMAL) CBC auto differential (08/06/2024 10:13 AM EDT) Only the most recent of3 resultswithin the time period is included. White Blood Count 7.3 4.8 - 10.8 X10*3/uL [facility] Red Blood Count 4.61 4.60 - 5.80 X10*6/uL [facility] Hemoglobin 13.1(L) 14.0 - 18.0 g/dl [facility] Hematocrit 39.1(L) 42.0 - 52.0 % [facility] Mean Corpuscular Volume 84.8 80.0 - 98.0 fL [facility] Mean Corpuscular Hemoglobin 28.4 27.0 - 33.0 pg [facility] Mean Corpuscular HGB Conc 33.5 31.0 - 36.0 g/dl [facility] Red Cell Distribution Width 13.2 11.0 - 16.0 % [facility] Platelet Count 126(L) 160 - 400 X10*3/uL [facility] Mean Platelet Volume 11.4 9.4 - 12.4 fL [facility] Neutrophils Percent Auto 67.2 45 - 73 % [facility] Imm Gran Pct Auto 0.4 0.0 - 0.4 % [facility] Lymphocytes Percent Auto 24.9 20 - 40 % [facility] Monocytes Percent Auto 4.8 2 - 11 % [facility] Eosinophils Percent Auto 2.3 0 - 4 % [facility] Basophils Percent Auto 0.4 0 - 2 % [facility] NRBC Pct Auto 0.0 0.0 - 0.2 /100WBC [facility] Neutrophils Absolute Auto 4.9 2.0 - 8.3 x10*3/uL [facility] Imm Gran Abs Auto 0.03 0.00 - 0.03 X10*3/uL [facility] Lymphocytes Absolute Auto 1.8 1.2 - 4.9 X10*3/uL [facility] Monocytes Absolute Auto 0.4 0.1 - 1.2 X10*3/uL [facility] Eosinophils Absolute Auto 0.2 0.0 - 0.4 X10*3/uL [facility] Basophils Absolute Auto 0.0 0.0 - 0.2 X10*3/uL [facility] NRBC Abs Auto 0.000 0.0 - 0.012 X10*3/uL [facility] 08/06/2024 10:1 3 AM EDT 08/06/2024 10:16 AM EDT us Generic External Data Provider LAB BLOOD ORDERAB LES Final Result Performing Organization Address City/State/[facility] Co de Phone Number [facility] [address] [place] [phone] * Prothrombin Time-INR (08/06/2024 10:13 AM EDT) Prothrombin Time 11.7 10.9 - 12.4 SEC [facility] INTERNATIONAL NORM RATIO 1.0 0.9 - 1.1 [facility] Comment:INTERNATIONAL NORMAL IZED RATIO (INR) [...] Provider LAB BLOOD ORDERAB LES Final Result [facility] [address] [place] [address] [phone] * POCT RAMSES-14 Urine Drug Screen (07/25/2024 2:14 PM EST) Only the most recent of3 resultswithin the time period is included. Urine Urine specimen obtained by clean catch procedure / Unknown 07/25/2024 2:14 PM EST Rut Branham MD POINT OF CARE TEST ENTER/YI T ORDERABLES Final Result * (ABNORMAL) POCT HGB A1C (07/10/2024 2:05 PM EST) [facility] Hemoglobin A1C 6.7(A) 4.0 - 6.0 % QC Media Lot # [id number] Lot# Expiration Date Blood 07/10/2024 2:05 PM EST us Sofia Mitchell ANP POINT OF CARE TEST ENTER/EDIT OR DERABLES Final Result * POCT Glucose (07/10/2024 2:02 PM EST) [facility] Glucose Blood, POC 127 60 - 200 mg/dL QC Media Lot # [id number] Lot# Expiration Date ,025 Blood Capillary blood specimen / Unknown 07/10/2024 2:02 PM EST us Sofia Mitchell [facility] POINT OF CARE TEST ENTER/EDIT OR DERABLES Final Result * T-SPOT??.TB (07/03/2024 1:30 PM EST) [facility] T Spot TB Negative Negative [facility] Comment:A negative test resu lt does not exclude the possibilityof exposure to or infection with Mycobacteriumtuberculosis (M. tuberculosis). Patients with recentexposure to TB infected individuals exhibiting anegative T-SPOT.TB result should be considered forretesting within 6 weeks or if other relevant clinicalsymptoms indicate. Results from T-SPOT.TB testing mustbe used in conjunction with each individual'sepidemiological history, current medical status,and results of other diagnostic evaluations.The T-SPOT.TB test is qualitative and results arereported as positive, borderline, or negative, giventhat the test controls perform as expected. In linewith the Centers for Disease Control and Prevention's2010 recommendation to report quantitative measurementsalongside the qualitative result, the laboratoryprovides spot counts for informational purposes only.The T-SPOT.TB test should not be interpreted as aquantitative test. TS PANEL A 0 [facility] TS PANEL B 0 [facility] Negative Control Passed [facility] Positive Control Passed [facility] Comment:For additional infor zheng, please refer tohttp://education.GramVaani/faq/ZWA143(This link is being provided for informational/educational purposes only.)THIS TEST WAS PERFORMED AT:[employer] [id number] [place] [address]TSPYNUPMINI NICOLAS MD,PHD 07/03/2024 1:30 PM EST 07/03/2024 4:16 PM EST us Generic External Data Provider LAB BLOOD ORDERAB LES Final Result [facility] [address] [place] [phone] * Hepatitis Panel, General (07/03/2024 1:30 PM EST) Hepatitis A IgM Nonreactive Nonreactive [facility] Comment:IgM antibodies to MONTERO V not detected; does not exclude earlyacute or recovered HAV infection. ~Hepatitis B Surface Antibody NONREACTIVE Nonreactive [facility] Comment:Nonreactive: < 8.00 mIU/mL Hepatitis B Core Antibody Nonreactive Nonreactive [facility] Hepatitis C Antibody Nonreactive Nonreactive [facility] Comment:Antibodies to HCV no t detected; does not exclude early acuteHCV infection. Hepatitis B Surface Ag Negative Negative [facility] 07/03/2024 1:30 PM EST 07/03/2024 4:16 PM EST us Generic External Data Provider LAB BLOOD ORDERAB LES Final Result [facility] [address] [place] [phone] [phone] * (ABNORMAL) Drug Monitoring, Panel 1, Screen, Urine (07/03/2024 1:30 PM EST) Only the most recent of2 resultswithin the time period is included. Opiate Screen Urine Not Detected Not Detect [facility] Comment:Opiate cut-off is 30 0 ng/mL.Positive results are unconfirmed and should not be used fornon-medical purposes. Barbiturates, Urine Not Detected Not Detect [facility] Comment:Barbiturate cut-off is 200 ng/mL.Positive results are unconfirmed and should not be used fornon-medical purposes. Phencyclidine Screen Urine Not Detected Not Detect [facility] Comment:Phencyclidine cut-of f is 25 ng/mL.Positive results are unconfirmed and should not be used fornon-medical purposes. Amphetamine Screen Urine Not Detected Not Detect [facility] Comment:Amphetamine cut-off is 1000 ng/mL.Positive results are unconfirmed and should not be used fornon-medical purposes. Benzodiazepines Screen Urine Not Detected Not Detect [facility] Comment:Benzodiazepine cut-o ff is 200 ng/mL.Positive results are unconfirmed and should not be used fornon-medical purposes. Cocaine Screen Urine Not Detected Not Detect [facility] Comment:Cocaine cut-off is 3 00 ng/mL.Positive results are unconfirmed and should not be used fornon-medical purposes. Cannabinoid Screen Urine POSITIVE(A) Not Detect [facility] Comment:Cannabinoid cut-off is 50 ng/mL.Positive results are unconfirmed and should not be used fornon-medical purposes. Methadone Screen, Urine Not Detected Not Detect ng/mL [facility] Comment:Methadone cut-off is 300 ng/mL.Positive results are unconfirmed and should not be used fornon-medical purposes. FENTANYL URINE Not Detected Not Detect [facility] Comment:Fentanyl cut-off is 1 ng/mL.Positive results are unconfirmed and should not be used fornon-medical purposes. Oxycodone Urine Screen Not Detected Not Detect ng/mL [facility] Comment:Oxycodone cut-off is 100 ng/mL.Positive results are unconfirmed and should not be used fornon-medical purposes. Buprenorphine Screen Positive(A) Not Detect ng/mL [facility] Comment:Buprenorphine cut-of f is 5 ng/mL.Positive results are unconfirmed and should not be used fornon-medical purposes. Urine (Urine, Random) 07/03/2024 1:30 PM EST 07/03/2024 4:16 PM EST Jermaine Suárez PMHNP LAB URINE ORDERABLES Final Re sult [facility] [address] [place] [phone] [phone] * XR CERVICAL SPINE 3V (06/04/2024 5:58 PM EST) Anatomical Region Laterality Modality Abdomen Radiographic Lupe ging 06/04/2024 5:58 PM EST Narrative 06/04/2024 6:00 PM EST ? [facility] ?[address] ?[place] [address] ?XRay Report ? Signed ? Patient: Landon,Ross L ?MR#: [id number] ?? 613 ? : 1980 ?Acct:[id number] ? Age/Sex: 43 / M ?ADM Date: //25 ? Loc: HO.ED ? Attending Dr: ? Ordering Physician: Alexey Fabian ?? Date of Service: 06/04/24 ?? Procedure(s): XR cervical spine 3V ?? Accession Number(s): [id number] ? cc: [facility]; Alexey Fabian ? [...] 06/04/24 1759 ? DD/ 57 ? TD/TT: 06/04/241757 ? Registered Nurse Maternal Child: ? Procedure Note Donramirezter, Image - 06/04/[address] [address] XRay Report Signed Patient: Ross Navarrete LMR#: [id number] 613 : 1980Acct:[id number] Age/Sex: 43 / MADM Date: 06/04/24 Loc: HO.ED Attending Dr: Ordering Physician: Alexey Fabian Date of Service: 06/04/24 Procedure(s): XR cervical spine 3V Accession Number(s): [id number] cc: [facility]; Alexey Fabian CLINICAL HISTORY: [...] in OV> 06/04/24 1759 DD/ 57 TD/TT: 01/07/25 1758 Registered Nurse Maternal Child: [facility] External Provider IMG XR PROCEDURES Final Result * Glucose, Whole Blood (06/04/2024 4:40 PM EST) Only the most recent of3 resultswithin the time period is included. Pathologist [facility] Glucose, Whole Blood 106 60 - 115 mg/dL [facility] Comment:METER #: [id number] 06/04/2024 4:40 PM EST 06/04/2024 4:43 PM EST Generic External Data Provider LAB BLOOD ORDERAB LES Final Result Performing Organization Address [facility] de Phone Number [facility] [address] [place] [phone] * High Sensitivity Troponin I (06/04/2024 11:28 AM EST) [facility] TROPONIN I HIGH SENSITIVITY <2.7 <3.5 - 35.0 ng/L [facility] Comment:The [place] high sens itivity Troponin-I results should beused in conjunction with other diagnostic information suchas ECG, clinical observations and information, and patientsymptoms to aid in the diagnosis of ID. 06/04/2024 11:2 8 AM EST 06/04/2024 11:56 AM EST Generic External Data Provider LAB BLOOD ORDERAB LES Final Result Performing Organization Address [facility] Co de Phone Number [facility] [address] [place] [phone] * (ABNORMAL) Basic Metabolic Panel (06/04/2024 11:28 AM EST) Only the most recent of2 resultswithin the time period is included. Pathologist [facility] Sodium 138 135 - 145 mmol/L [facility] Potassium 4.2 3.3 - 5.1 mmol/L [facility] Chloride 105 96 - 108 mmol/L [facility] Carbon Dioxide 28 22 - 29 mmol/L [facility] Anion Gap 9(L) 12 - 20 [facility] Urea Nitrogen (BUN) 17(H) 9 - 16 mg/dL [facility] Creatinine, Serum 0.98 0.5 - 1.4 mg/dL [facility] Creatinine Clr Calc Pharmacy 150.8 [facility] Comment:eGFR (calculated fro m the MDRD study equation) and eCrCl(calculated from the Cockcroft-Gault equation) are based ondifferent parameters and may not yield comparable results.If eCrCl result is absurd, please check patient'sheight/weight. Estimated Glomerular Filt Rate >60 [facility] Comment:Chronic Kidney Disea se: Estimated GFR < 60 mL/min/1.85k6Mbrueo Kidney Disease: Estimated GFR < 15 mL/min/1.73m2 Glucose 130(H) 60 - 115 mg/dL [facility] Calcium 9.3 8.4 - 10.2 mg/dL [facility] 06/04/2024 11:2 8 AM EST 06/04/2024 11:56 AM EST us Generic External Data Provider LAB BLOOD ORDERAB LES Final Result [facility] [address] [place] [phone] * POCT urinalysis dipstick manually resulted [...] Detected Urine 05/20/2024 3:21 PM EST us Desirae Cowan MD POINT OF CARE TEST ENTER /EDIT ORDERABLES Final Result * Magnesium (05/17/2024 10:14 AM EST) Only the most recent of2 resultswithin the time period is included. Magnesium 1.8 1.6 - 2.6 mg/dL [facility] 05/17/2024 10:1 4 AM EST 05/17/2024 10:20 AM EST us Generic External Data Provider LAB BLOOD ORDERAB LES Final Result Performing Organization Address City/[facility]/ZIP Co de Phone Number [facility] [address] [place] [phone] * (ABNORMAL) Urinalysis, Complete, with Reflex to Culture (05/17/2024 8:36 AM EST) [facility] Signature Color Urine Yellow [facility] Appearance Urine Clear [facility] PH 6.5 5.0 - 9.0 [facility] Glucose Urine UA Negative Negative mg/dL [facility] Urine Blood Negative Negative [facility] Specific [place] - Urine 1.020 1.005 - 1.025 [facility] Urine Protein 300 (3+)(A) Neg-Trace mg/dL [facility] Urine Ketones Negative Negative mg/dL [facility] Nitrite Urine Negative Negative [facility] Leukocyte Esterase Urine Negative Negative [facility] RBC Urine 0-2 0 - 2 /HPF [facility] Urine WBC 6-10 0 - 5 /HPF [facility] Urine Squamous Epithelial Cell 0-2 0 - 2 /HPF [facility] Urine Bacteria None Seen None Seen [facility] Hyaline Casts, Urine 0-2 0 - 2 /LPF [facility] 05/17/2024 8:36 AM EST 05/17/2024 8:39 AM EST Narrative [facility] - 05/17/2024 8:56 AM EST [id number], Clean Catch us Generic External Data Provider LAB URINE ORDERAB LES Final Result Performing Organization Address City/[facility]/ZIP Co de Phone Number [facility] [address] [place] [phone] * Ethanol (05/16/2024 6:10 PM EST) ETHANOL (MG/DL) IN SER/PLAS <10 mg/dL [facility] Comment:Serum/plasma ethanol results are to be used formedical/treatment purposes only. 05/16/2024 6:10 PM EST 05/16/2024 6:12 PM EST us Generic External Data Provider LAB BLOOD ORDERAB LES Final Result Performing Organization Address [facility] Co de Phone Number [facility] [address] [place] [phone] * Hepatic Function Panel (05/16/2024 6:10 PM EST) Bilirubin, Total 0.6 0.0 - 1.0 mg/dL [facility] Bilirubin, Direct 0.2 0.0 - 0.5 mg/dL [facility] Aspartate Amino Transferase 25 5 - 37 U/L [facility] Alanine Aminotransferase 16 0 - 40 U/L [facility] Total Protein 7.8 6.5 - 8.0 g/dL [facility] Albumin Level 3.8 3.5 - 5.0 g/dL [facility] Alkaline Phosphatase 70 39 - 117 U/L [facility] 05/16/2024 6:10 PM EST 05/16/2024 6:12 PM EST us Generic External Data Provider LAB BLOOD ORDERAB LES Final Result Performing Organization Address [facility] Co de Phone Number [facility] [address] [place] [phone] * US Abdomen Comp w elastography (05/09/2024 9:41 AM EST) Anatomical Region Laterality Modality Abdomen Ultrasound 05/09/2024 9:41 AM EST Narrative 06/18/2024 9:23 AM EST ? [facility] ?[address] ?[place] [address] ? Ultrasound Report ? Signed ? Patient: Navarrete,Ross L ?MR#: [id number] ?? 613 ? : 1980 ?Acct:[id number] ? Age/Sex: 43 / M ?ADM Date: 05/09/24 ? Loc: HO.US ? Attending Dr: Kavya Mccain MD ? Ordering Physician: Kavya Mccain MD ?? Date of Service: 05/09/24 ?? Procedure(s): US abdomen comp w elastography ?? Accession Number(s): [id number] ? cc: SOFIA MITCHELL NP; Kavya Mccain MD ? EXAMINATION: ?? US COMPLETE ABDOMEN WITH LIVER ELASTOGRAPHY ? CLINICAL INFORMATION: ?? Fatty change of liver, not elsewhere specified. ? COMPARISON: ?? Abdominal ultrasound 10/24/2023. ?? Abdominal ultrasound with elastography 12/09/2021. ? TECHNIQUE: ?? Real-time imaging of the abdominal viscera. Noninvasive ultrasound ?? liver fibrosis assessment is performed using Sally ElastPQ point ?? quantification shear wave elastography [...] Mcdaniels MD ??06/18/2024 09:20 AM EST RP ?? Workstation: [id number] ? Dictated By: ?Hamzah Mcdaniels MD ? Signed By: ?<Electronically signed by Hamzah Mcdaniels MD in OV> ?06/18/24 0920 ? DD/ 0941 ? TD/TT: 05/09/24 0957 ? Registered Nurse Maternal Child: ? Procedure Note Roseanne, Image - 06/18/2024 [place] [address] Ultrasound Report Signed Patient: Ross Navarrete LMR#: [id number] 613 : 1980Acct:[id number] Age/Sex: 43 / MADM Date: 05/09/24 Loc: HO.US Attending Dr: Kavya Mccain MD Ordering Physician: Kavya Mccain MD Date of Service: 05/09/24 Procedure(s): US abdomen comp w elastography Accession Number(s): [id number] cc: SOFIA MITCHELL [employer]; Kavya Mccain MD EXAMINATION: US COMPLETE ABDOMEN [...] Hamzah Mcdaniels MD in OV> 06/18/24919 DD/ 0 TD/TT: 05/09/24956 Registered Nurse Maternal Child: us [facility] External Provider IMG US PROCEDURES Edited Result - Final * Lipid Panel, Standard (04/24/2024 11:23 AM EST) Triglycerides 132 <150 mg/dL [facility] Comment:Desirable Triglyceri de: less than 150 mg/dLBorderline High Triglyceride 150-199 mg/dLHigh Triglyceride: 200-499 mg/dLVery High Triglyceride: greater than or equal to 5OO mg/dL Cholesterol 165 <200 mg/dL [facility] Comment:Desirable Cholestero l: less than 200 mg/dLBorderline High Cholesterol: 200-239 mg/dLHigh Cholesterol: greater than 239 mg/dL LDL Cholesterol Calculated 91 <100 mg/dL [facility] Comment:Desirable LDL: less than 100 mg/dLNear Optimal/Above Optimal LDL: 110- 129 mg/dLBorderline High LDL: 130-159 mg/dLHigh LDL: 160-189 mg/dLVery High LDL: greater than or equal to 190 mg/dL HDL Cholesterol 48 >40 mg/dL [facility] Comment:Desirable HDL: great er than 40 mg/dL Note: This HDL assay may give artificially low results in patients with liver disease. 04/24/2024 11:2 3 AM EST 04/24/2024 11:23 AM EST us Generic External Data Provider LAB BLOOD ORDERAB LES Final Result Performing Organization Address City/[facility]/ZIP Co de Phone Number [facility] [address] [place] [phone] * HIV-1/2 Antigen and Antibodies, Fourth Generation, with Reflexes (12/13/2023 11:48 AM EDT) HIV AB/AG Nonreactive Nonreactive [facility] Comment:HIV-1 p24 Ag and/or HIV-1/HIV-2 Ab not detected.A test result that is nonreactive does not exclude thepossibility of exposure to or infection with HIV-1 and/orHIV-2. Nonreactive results in this assay for individualswith prior exposure to HIV-1 and/or HIV-2 may be due toantigen and antibody levels that are below the limit ofdetection of this assay.The [employer] HIV Ag/Ab Combo assay result andsupplemental assay results should be interpreted inconjunction with the patient's clinical presentation,history and other laboratory results. If the results areinconsistent with clinical evidence, additional testing issuggested to confirm the result. Blood Venous blood specimen / Unknown 12/13/2023 11:48 AM EDT 12/13/2023 12:51 PM EDT us [facility] LAB BLOOD ORDERABLES Final Resul t Performing Organization Address City/[facility]/ZIP Co de Phone Number [facility] [address] [place] [phone] from Last 3 Months or Most Recently Relevant to Health Maintenance [facility] MEDICAID STAND ADULT Care Teams Manager Of Corporate Relationship Specialty Start Date End Date Sofia Mitchell ANP [address] [place] [phone] PCP - General Family Medicine 01/18/22
--- OUTSIDE RECORDS SUMMARY | 2024-08-06 13:40 | XMS_ITS | Encounter Summary ---
Author Organization [facility] Address [address] [facility] [address] [place] [address] Care Team Providers Care Flat Examiner Name Role Phone Junie Naheed RAHMAN Primary Care Provider [phone] Reason for Visit * Reason Onset Date Comments [facility] 12/12/2023 Encounter Details Date Type Department Care Team ([facility] st Contact Info) Description 12/12/2023 Telephone [facility] ADULT [facility]AL [address] [place] [address] Zay Schmidt DDS [address] [place] [address] [facility] Social History Tobacco Use Types Packs/Day [...] dental relief. Pain Management office phone number [phone] documented in this encounter Plan of Treatment Upcoming Encounters Date Type Department Care Team (Late st Contact Info) Description 09/19/2024 3:00 PM EDT Office Visit [facility] MEDICINE [address] [place] [phone] Rut Branham MD [address] [place], [place] [phone] 10/08/2024 1:00 PM EDT Office Visit [facility] [address] [place] [address] [phone] Naheed Zaman ANP [address] [place], [place] [phone] documented as of this encounter Visit Diagnoses Not on filedocumented in this encounter Additional Health Concerns Assessment Noted Time PHQ-9 Depression Total Score: 23 11/16/ 024 3:25 PM EDT documented as of this encounter Care Teams Flat Examiner Relationship Specialty Start Date End Date Naheed Zaman ANP [address] [place] [address] [phone] PCP - General Family Medicine 01/18/22 documented as of this encounter
--- OUTSIDE RECORDS SUMMARY | 2024-08-06 13:40 | XMS_ITS | Encounter Summary ---
Author Organization [facility] Address [address] [facility] [address] [place] [address] Care Team Providers Care Smasher Name Role Phone Naheed Zaman Primary Care Provider [phone] Encounter Details Date Type Department Care Team (Late Contact Info) Description 07/28/2022 Abstract [facility] ADULT D[facility]AL [address] [place] [address] Zay Schmidt DDS [address] [place] [address] Social History Tobacco Use Types Packs/Day Years [...] In the last 10 days, have mekhi pearson been in contact with someone who was confirmed or suspected to have Coronavirus/COVID-19? No / Unsure 07/28/2022 2:14 PM EST documented as of this encounter Plan of Treatment Upcoming Encounters Date Type Department Care Team (Late Contact Info) Description 09/19/2024 3:00 PM EDT Office Visit [facility] [address] [place] [address] Rut Branham MD [address] [place] [address] 10/08/2024 1:00 PM EDT Office Visit [facility] [address] [facility] [place], [place] [phone] Naheed Zaman ANP [address] [place] [phone] documented as of this encounter Visit Diagnoses Not on filedocumented in this encounter Care Teams Smasher Relationship Specialty Start Date End Date Naheed Zaman ANP [facility] [place] [address] PCP - General Family Medicine 01/18/22 documented as of this encounter
[2024-08-06 13:46] LABS: Influenza A PCR NEGATIVE (Negative); Influenza B PCR NEGATIVE (Negative); Resp Syncy Virus RNA Qual PCR NEGATIVE (Negative); SARS COV2 PCR INHOUSE NEGATIVE (Negative)
[2024-08-06 13:48] VITALS: BP 139/66; PULSE 61; RESP 18; TEMP 36.8; O2SAT 97
--- NOTE | 2024-08-06 13:49 | PC.NURSE ---
NAD. describes a mouth ful of blood yesterday but none today. stool has been mostly normal, sometimes yellow . awaits last results. no vom,iting. unlabored resp. no cough. no abd tenderness. reports chronic abd pain
--- NOTE | 2024-08-06 14:22 | ED_ITS ---
HPI - General Adult General Chief complaint: General Medical Stated complaint: Bleeding in mouth? Time Seen by Provider: 08/06/24 11:07 Related Data Home Medications ?Medication ?Instructions ?Recorded ?Confirmed insulin lispro 100 unit/mL 35 unit subcut TID 07/26/21 07/01/24 subcutaneous pen (Humalog KwikPen (U-100) Insulin) buprenorphine 8 mg-naloxone 2 mg 1 film sublingual TID 02/09/22 07/01/24 sublingual film (Suboxone) insulin glargine 100 unit/mL (3 55 unit subcut BEDTIME 04/22/24 07/01/24 mL) subcutaneous pen (Lantus Solostar U-100 Insulin) lidocaine 5 % topical patch 1 patch topical DAILY PRN Pain 05/16/24 07/01/24 (Lidoderm) ammonium lactate 12 % lotion topical 06/17/24 07/01/24 ammonium lactate 12 % topical cream appl topical 06/17/24 07/01/24 betamethasone valerate 0.1 % appl topical 06/17/24 07/01/24 topical cream clotrimazole 1 % topical cream appl topical BID 06/17/24 07/01/24 flash glucose sensor (FreeStyle #1 ea 06/17/24 07/01/24 Casey 2 Sensor kit) fluoxetine 40 mg capsule 40 mg PO DAILY 06/17/24 07/01/24 zinc oxide 40 % topical ointment topical 06/17/24 07/01/24 (Diaper Rash) Previous Rx's ?Medication ?Instructions ?Recorded meloxicam 15 mg tablet 15 mg PO DAILY 30 days #30 tabs 03/16/22 gabapentin 100 mg capsule 100 mg PO BEDTIME #90 caps 02/27/24 lisinopril 20 mg tablet 20 mg PO DAILY #30 tabs 05/18/24 adalimumab 40 mg/0.4 mL 40 mg (0.4 mL) subcut Q2W #2 ea 05/30/24 subcutaneous pen kit (Humira(CF) Pen) acetaminophen 500 mg tablet 500 mg PO Q6H PRN pain #20 tabs 06/04/24 (Acetaminophen Extra Strength) lidocaine 5 % topical patch 1 patch topical DAILY PRN pain #15 06/04/24 ea sodium,potassium,mag sulfates 17.5 See Rx Instructions PO .COMPLEX 06/17/24 gram-3.13 gram-1.6 gram oral soln #354 mL (Suprep Bowel Prep Kit) cholecalciferol (vitamin D3) 1,250 1,250 mcg PO QWEEK #13 caps 07/29/24 mcg (50,000 unit) capsule Allergies Allergy/AdvReac Type Severity Reaction Status Date / Time seafood Allergy Severe Swelling Verified 08/06/24 09:57 [facility] Past Medical History Medical History Seronegative spondyloarthropathy Seronegative spondylitis Vitamin D deficiency Elevated C-reactive protein (CRP) Fibromyalgia Polyarthralgia Narcotic dependence Thrombocytopenia Carpal tunnel syndrome Sleep apnea Pre-op evaluation Hx of migraines BETSY on CPAP Pre-op evaluation HTN (hypertension), benign Insulin dependent type 1 diabetes mellitus Morbid obesity Shoulder dislocation Diabetes Surgical History Hx of colonoscopy History of esophagogastroduodenoscopy (EGD) Hx of hernia repair Hx of appendectomy Family History Family History Mother No problems noted. Brother No problems noted. Daughter No problems noted. Daughter No problems noted. Daughter No problems noted. Son No problems noted. Son No problems noted. Social History Social History Household Members: Other Household Members Other:: Housing: House Are you a primary career professional to a significant other at home: No Do you presently have visiting nurse or other home services: No Alcohol intake: never Patient Tobacco Use Status: Never used Tobacco Smoked in Last 30 Days: No Use of substances other than those prescribed or required for medical reasons: No Substance Use Type: Marijuana Advance Directives: Yes Advance Directives on File: Yes Advance Directives Date on File: 08/10/22 service: No Current occupational status: employed and other 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 Physical Exam ED Vital Signs: Vital Signs - 24 hr 08/06/24 09:53 08/06/24 12:32 08/06/24 13:48 Temperature 97.4 F 98.3 F Pulse Rate 96 61 Respiratory Rate 18 17 18 Blood Pressure 174/78 H 139/66 Pulse Oximetry 97 97 Oxygen Delivery Method Room Air Room Air BMI result Body Mass Index 65.5 Medical Decision Making Lab Data 08/06/24 10:13 08/06/24 10:13 Labs: Lab Results 08/06/24 08/06/24 Range/Units 10:13 12:26 WBC 7.3 (4.8-10.8) X10*3/uL RBC 4.61 (4.60-5.80) X10*6/uL Hgb 13.1 L (14.0-18.0) g/dl Hct 39.1 L (42.0-52.0) % MCV 84.8 (80.0-98.0) fL MCH 28.4 (27.0-33.0) pg MCHC 33.5 (31.0-36.0) g/dl RDW 13.2 (11.0-16.0) % Plt Count 126 L (160-400) X10*3/uL MPV 11.4 (9.4-12.4) fL Immature Gran % (Auto) 0.4 (0.0-0.4) % Neut % (Auto) 67.2 (45-73) % Lymph % (Auto) 24.9 (20-40) % Atlantic % (Auto) 4.8 (2-11) % Eos % (Auto) 2.3 (0-4) % Baso % (Auto) 0.4 (0-2) % Lymph # (Auto) 1.8 (1.2-4.9) X10*3/uL Atlantic # (Auto) 0.4 (0.1-1.2) X10*3/uL Eos # (Auto) 0.2 (0.0-0.4) X10*3/uL Baso # (Auto) 0.0 (0.0-0.2) X10*3/uL Abs Immat Gran (auto) 0.03 (0.00-0.03) X10*3/uL Absolute Neuts (auto) 4.9 (2.0-8.3) x10*3/uL Absolute Nucleated RBC 0.000 (0.0-0.012) X10*3/uL Nucleated RBC % (auto) 0.0 (0.0-0.2) /100WBC PT 11.7 (10.9-12.4) SEC INR 1.0 (0.9-1.1) Sodium 136 (135-145) mmol/L Potassium 3.9 (3.3-5.1) mmol/L Chloride 105 (96-108) mmol/L Carbon Dioxide 25 (22-29) mmol/L Anion Gap 10 L (12-20) BUN 18 H (9-16) mg/dL Creatinine 1.18 (0.5-1.4) mg/dL Estim Creat Clear Calc 124.9 Estimated GFR > 60 Random Glucose 186 H (60-115) mg/dL Calcium 8.9 (8.4-10.2) mg/dL Total Bilirubin 0.8 (0.0-1.0) mg/dL Direct Bilirubin 0.2 (0.0-0.5) mg/dL AST 22 (5-37) U/L ALT 21 (0-40) U/L Alkaline Phosphatase 73 (39-117) U/L Total Protein 8.0 (6.5-8.0) g/dL Albumin 3.7 (3.5-5.0) g/dL Lipase 48 (8-78) U/L Influenza Type A (PCR) NEGATIVE (Negative) Influenza Type B (PCR) NEGATIVE (Negative) RSV RNA Qual (PCR) NEGATIVE (Negative) SARS-CoV-2 RNA (RT-PCR) NEGATIVE (Negative) Discharge Plan Discharge Clinical Impression: Bleeding from mouth Patient Disposition: Home, Self-Care Instructions: Mouth Care (ED), Gastrointestinal Bleeding (ED) Prescriptions: No Action meloxicam 15 mg tablet 15 mg PO DAILY 30 Days Qty: 30 0RF cholecalciferol (vitamin D3) 1,250 mcg (50,000 unit) capsule 1,250 mcg PO QWEEK Qty: 13 0RF lidocaine [Lidoderm] 5 % adhesive patch,medicated 1 patch topical DAILY PRN (Reason: Pain) Rx Instructions: leave on most painful area for up to 12 hrs lisinopril 20 mg Tablet 20 mg PO DAILY Qty: 30 0RF Protocol: Hold for SBP< HOLD for SBP < : 90 lidocaine 5 % adhesive patch,medicated 1 patch topical DAILY PRN (Reason: pain) Qty: 15 0RF Rx Instructions: leave on most painful area for up to 12 hrs acetaminophen [Acetaminophen Extra Strength] 500 mg tablet 500 mg PO Q6H PRN (Reason: pain) Qty: 20 0RF buprenorphine-naloxone [Suboxone] 8-2 mg film 1 film sublingual TID insulin lispro [Humalog KwikPen Insulin] 100 unit/mL insulin pen 35 unit subcut TID gabapentin 100 mg capsule 100 mg PO BEDTIME Qty: 90 0RF Humira(CF) Pen 40 mg/0.4 mL pen injector kit 40 mg subcut Q2W Qty: 2 6RF insulin glargine [Lantus Solostar U-100 Insulin] 100 unit/mL (3 mL) insulin pen 55 unit subcut BEDTIME (DME) FreeStyle Casey 2 Sensor Kit See Rx Instructions .ROUTE Q2W Qty: 1 Rx Instructions: As directed fluoxetine 40 mg capsule 40 mg PO DAILY betamethasone valerate 0.1 % cream topical ammonium lactate 12 % lotion topical zinc oxide [Diaper Rash] 40 % ointment topical clotrimazole 1 % cream topical BID ammonium lactate 12 % cream topical sodium,potassium,mag sulfates [Suprep Bowel Prep Kit] 17.5-3.13-1.6 gram recon soln See Rx Instructions PO .COMPLEX Qty: 354 0RF Rx Instructions: DILUTE as per instructions given Referrals: Naheed Zaman [employer] [Primary Care Provider] - 08/08/24 Print Language: Luxembourgish
[2024-08-06 14:47] VITALS: BP 139/66; PULSE 61; RESP 18; TEMP 36.8; O2SAT 97
== END 2024-08-06 14:48 | disposition home or self-care (01) ==
PROVIDERS: Emergency Provider Emergency Medicine Emergency Medical Services; PCP Nurse Practitioner Primary Care
DX: R04.1 Hemorrhage from throat (principal); R05.9 Cough, unspecified; E11.9 Type 2 diabetes mellitus without complications; Z79.899 Other long term (current) drug therapy; Z79.4 Long term (current) use of insulin; Z03.818 Encounter for observation for suspected exposure to other biological agents ruled out
CPT/HCPCS: 0241U; 36415; 71045; 80053; 82248; 83690; 85025; 85610; 93005; 99283; 99284

== ENCOUNTER → 2024-08-06 09:59 | Outpatient (BNV) | payer MEDICAID, SELFPAY | PROVIDERS: Emergency Provider Emergency Medicine Emergency Medical Services; PCP Nurse Practitioner Primary Care; Visit Provider Internal Medicine | DX: Z01.810 Encounter for preprocedural cardiovascular examination (principal) | CPT/HCPCS: 93010 ==

== ENCOUNTER → 2024-08-06 12:06 | Outpatient (BNV) | payer MEDICAID, SELFPAY | PROVIDERS: Emergency Provider Emergency Medicine Emergency Medical Services; PCP Nurse Practitioner Primary Care; Visit Provider Radiology Diagnostic Radiology | DX: R05.9 Cough, unspecified (principal) | CPT/HCPCS: 71045 ==

== ENCOUNTER 2024-08-12 13:29 | Outpatient (AMB) | payer MEDICAID, SELFPAY ==
--- NOTE | 2024-08-12 13:46 | MHC.OFFVIS ---
Vital Signs 08/12/24 13:47 Height 5 ft 5 in Weight 389 lb BMI 64.7 BP 173/80 H Blood Pressure Location Lt radial Position Sitting Respiration 16 Pulse 82 Pulse Source Pulse Oximeter Pulse Oximetry (%) 99 Oxygen Delivery Method Room Air Intake Visit Reasons: Shoulder Pain Engine Manager Required: No Allergies seafood Allergy (Severe, Verified 08/12/24 13:48) Swelling Medication List - Last Reconciled 08/12/24 by Judi Nagy LPN acetaminophen (Acetaminophen Extra Strength) 500 mg PO Q6H PRN adalimumab (Humira(CF) Pen) 40 mg (0.4 mL) subcut Q2W ammonium lactate 12% topical ammonium lactate 12% appl topical betamethasone valerate 0.1% appl topical buprenorphine-naloxone 8-2 mg (Suboxone) 1 film sublingual TID cholecalciferol (vitamin D3) 1,250 mcg PO QWEEK clotrimazole 1% appl topical BID flash glucose sensor (FreeStyle Casey 2 Sensor kit) As directed fluoxetine 40 mg PO DAILY gabapentin 100 mg PO BEDTIME insulin glargine (Lantus Solostar U-100 Insulin) 55 units subcut BEDTIME insulin lispro (Humalog KwikPen (U-100) Insulin) 35 units subcut TID lidocaine 5% 1 patch topical DAILY PRN lisinopril 20 mg See Protocol PO DAILY meloxicam 15 mg PO DAILY 30 days sodium,potassium,mag sulfates 17.5-3.13-1.6 gram (Suprep Bowel Prep Kit) DILUTE as per instructions given zinc oxide 40% (Diaper Rash) topical HPI Comments Details: Mr. Navarrete is back in my office again with complains on pain in the left shoulder. He is scheduled for an appointment with orthopedic surgery 2 days from now on 08/14/2024. He received 3 intra-articular left shoulder injections under x-ray guidance. He reported very good pain relief on 1st and 2nd injection however the 3rd injection fail to alleviate his pain. Prior:? complaining on the pain in the left shoulder.? He reports that this pain was bothering him for many years but it was mild.? Two months ago the pain became severe.? He went for Orthopedic surgery office and Was recommended to have intra-articular shoulder steroid injection.? On the x-ray it was become demonstrating a loose body inside of his shoulder joint.? The dictation of the x-rays as below.? 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 For pain control he is taking meloxicam.? He never was a subject of physical therapy.? He had x-ray as dictated below [facility] Medical History Seronegative spondyloarthropathy Seronegative spondylitis Vitamin D deficiency Elevated C-reactive protein (CRP) Fibromyalgia Polyarthralgia Narcotic dependence Thrombocytopenia Carpal tunnel syndrome Sleep apnea Pre-op evaluation Hx of migraines BETSY on CPAP Pre-op evaluation HTN (hypertension), benign Insulin dependent type 1 diabetes mellitus Morbid obesity Shoulder dislocation Diabetes Surgical History Hx of colonoscopy History of esophagogastroduodenoscopy (EGD) Hx of hernia repair Hx of appendectomy Family History Mother No problems noted. Brother No problems noted. Daughter No problems noted. Daughter No problems noted. Daughter No problems noted. Son No problems noted. Son No problems noted. 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 Review of Systems Const All systems reviewed & are unremarkable except as noted in HPI and below ENT Reports Normal hearing present Neuro Reports Normal hearing present and Denies confusion Psych Denies confusion Physical Exam Vital Signs: Last Vital Signs Pulse 82 08/12/24 13:47 Resp 16 08/12/24 13:47 BP 173/80 H 08/12/24 13:47 Pulse Ox 99 08/12/24 13:47 Oxygen Delivery Method Room Air 08/12/24 13:47 BMI result Body Mass Index 64.7 Const General: No confusion Orientation/consciousness: No confusion HEENT Head: Yes normal to inspection, Yes normocephalic and Yes atraumatic Eyes General: appearance normal, both eyes and all related structures Resp Effort & Inspection: normal respiratory effort and able to speak in complete sentences Cardio Rate: regular rate Peripheral pulses: Peripheral pulses 2+ throughout GI Palpation (GI): Soft to palpation Skin Lesions: no lesions Rashes: no rashes Neuro General: No confusion Cranial nerves: Yes Normal hearing present Extrem Other: Left shoulder: Able to forward flexion to 25 degrees. Abduction to 25 degrees. External to neutral with little motion. Unable to do any further testing due to pain and limited ROM. Assessment & Plan Assessment & Plan (1) Osteoarthritis of left shoulder: Code(s): M19.012 - Primary osteoarthritis, left shoulder Category: Medical Plan: (2) Morbid obesity: Code(s): E66.01 - Morbid (severe) obesity due to excess calories Category: Medical (3) Left shoulder pain: Code(s): M25.512 - Pain in left shoulder Category: Medical Plan The 3rd intra-articular shoulder injection was not as effective as the 1st 2 injections in the left shoulder joint. He never was examined by Orthopedic surgeon office for his left shoulder pain. We will send him for the consult with orthopedic surgery. If surgical procedures are not indicated for him neuromodulation could be offered for 3 his pain as well as radiofrequency ablation. Coding Level of Care Code Est Pt Level 3 (85273) Diagnoses Osteoarthritis of left shoulder M19.012 Morbid obesity E66.01 Left shoulder pain M25.512
[2024-08-12 13:47] VITALS: BP 173/80; PULSE 82; RESP 16; O2SAT 99; BMI 64.7
--- OUTSIDE RECORDS SUMMARY | 2024-08-12 15:42 | XMS_ITS | Encounter Summary ---
Author Organization [employer] Address [address] [facility] [address] [place] [address] Care Team Providers Care Clinching Machine Operator Name Role Phone Naheed Zaman Primary Care Provider [phone] Reason for Visit * Reason Comments Med Refill Encounter Details Date Type Department Care Team ([facility] st Contact Info) Description 08/18/2023 Refill [facility] [address] [place], [place] [phone] Naheed Zaman ANP [address] [place] [address] Chronic low back pain without sciatica, unspecified [...] EDT Office Visit [facility] [address] [place] [phone] Rut Branham MD [address] [place] [address] 10/08/2024 1:00 PM EDT Office Visit [facility] [address] [place] [phone] Naheed Zaman ANP [address] [place] [phone] documented as of this encounter Visit Diagnoses Diagnosis Chronic low back pain without sciatica, unspecified back pain laterality documented in this encounter Additional Health Concerns Assessment Noted Time PHQ-9 Depression Total Score: 6 11/19/19 23 3:29 PM EDT documented as of this encounter Care Teams Clinching Machine Operator Relationship Specialty Start Date End Date Naheed Zaman ANP [address] [place] [phone] PCP - General Family Medicine 01/18/22 documented as of this encounter
--- OUTSIDE RECORDS SUMMARY | 2024-08-12 15:42 | XMS_ITS | Encounter Summary ---
Author Organization [employer] Address [address] [facility] 7[address] [place] [address] Care Team Providers Care Flag Signalman Name Role Phone Naheed Zaman Primary Care Provider [phone] Reason for Visit * Reason Onset Date Comments Prior Authorization 08/06/2024 Ozempic Encounter Details Date Type Department Care Team ([facility] st Contact Info) Description 08/06/2024 Telephone [facility] MEDICINE [address] [place] [address] Naheed Zaman ANP [address] [place] [address] Prior Authorization (Ozempic) Social History Tobacco Use [...] the past 12 months, has t he [employer], gas, oil or water [employer] threatened to shut off services in your [...] * Telephone Encounter - Nikia Brito - 08/09/2024 2:03 PM EDT Per [employer], member has current prior authorization. ABELARDO #[id number], exp date: 07/18/2025, units remaining 36 Doubling Machine Operator called [facility] pharmacy/Ed who confirmed pt received in Jun 2024 and is not due for next fill yet. * Telephone Encounter - Nikia Brito - 08/09/2024 2:02 PM EDT ABELARDO Wu signed and faxed to [employer] 08/07/2024. If patient calls to check status on above, please advise them to contact Pharmacy . * Telephone Encounter - Nikia Brito - 08/06/2024 12:06 PM EDT ABELARDO Wu from [facility] placed on PCP desk for signature. [...] Description 09/19/2024 3:00 PM EDT Office Visit [facility] MED[facility]INE [address] [place] [address] Rut Branham MD [address] [place] [address] 10/08/2024 1:00 PM EDT Office Visit [facility] MED[facility]INE [address] [place] [address] Naheed Zaman ANP [address] [place] [address] documented as of this encounter Visit Diagnoses Not on filedocumented in this encounter Additional Health Concerns Assessment Noted Time PHQ-9 Depression Total Score: 25 024 8:12 AM EDT documented as of this encounter Care Teams Flag Signalman Relationship Specialty Start Date End Date Naheed Zaman ANP [address] [place] [address] PCP - General Family Medicine 01/18/22 documented as of this encounter
--- OUTSIDE RECORDS SUMMARY | 2024-08-12 15:42 | XMS_ITS | Encounter Summary ---
Author Organization [employer] Address [address] [facility] 7t [place] [address] Care Team Providers Care Stereo Compiler Name Role Phone Junie Naheed RAHMAN Primary Care Provider [phone] Reason for Visit * Reason Onset Date Comments [facility] 12/12/2023 Encounter Details Date Type Department Care Team ([facility] st Contact Info) Description 12/12/2023 Telephone [facility] ADULT D[facility]AL [address] [place] [address] Zay Schmidt DDS [address] [place] [address] [facility] Social History Tobacco Use Types Packs/Day [...] dental relief. Pain Management office phone number [phone] documented in this encounter Plan of Treatment Upcoming Encounters Date Type Department Care Team (Late st Contact Info) Description 09/19/2024 3:00 PM EDT Office Visit [facility] [address] [place] [phone] Rut Branham MD [address] [place], [place] [phone] 10/08/2024 1:00 PM EDT Office Visit [facility] [address] [place] [address] [phone] Naheed Zaman ANP [address] [place], [place] [phone] documented as of this encounter Visit Diagnoses Not on filedocumented in this encounter Additional Health Concerns Assessment Noted Time PHQ-9 Depression Total Score: 23 11/16/ 024 3:25 PM EDT documented as of this encounter Care Teams Stereo Compiler Relationship Specialty Start Date End Date Naheed Zaman ANP [address] [place] [address] [phone] PCP - General Family Medicine 01/18/22 documented as of this encounter
--- OUTSIDE RECORDS SUMMARY | 2024-08-12 15:42 | XMS_ITS | Encounter Summary ---
Author Organization [employer] [facility] Address [address] [place] [address] [place], [place] [address] Care Team Providers Care Abalone Fisherman Name Role Phone Naheed Zaman Primary Care Provider [phone] Reason for Visit * Reason Comments Med Refill Encounter Details Date Type Department Care Team (Late st Contact Info) Description 02/02/2023 Refill [facility] MEDICINE [address] [place] [address] Rut Branham MD [address] [place] [address] Uncomplicated opioid dependence (CMS/HCC) Social History Tobacco [...] Description 09/19/2024 3:00 PM EDT Office Visit [facility] [address] [place] [address] Rut Branham MD [address] [place] [address] 10/08/2024 1:00 PM EDT Office Visit [facility] [address] [place], [place] [phone] Naheed Zaman ANP [address] [place], [place] [phone] documented as of this encounter Visit Diagnoses Diagnosis Uncomplicated opioid dependence (CMS/HCC) documented in this encounter Additional Health Concerns Assessment Noted Time PHQ-9 Depression Total Score: 6 11/19/19 23 3:29 PM EDT documented as of this encounter Care Teams Abalone Fisherman Relationship Specialty Start Date End Date Naheed Zaman ANP [address] [place] [phone] PCP - General Family Medicine 01/18/22 documented as of this encounter
--- OUTSIDE RECORDS SUMMARY | 2024-08-12 15:42 | XMS_ITS | Encounter Summary ---
Author Organization [employer] Address [address] [facility] [address]t [place] [address] Care Team Providers Care Film Sorter Name Role Phone Naheed Zaman Primary Care Provider [phone] Reason for Visit * Reason Onset Date Comments Prior Authorization 07/12/2024 Ozempic Encounter Details Date Type Department Care Team ([facility] st Contact Info) Description 07/12/2024 Telephone [facility] MEDICINE [address] [place] [address] Naheed Zaman ANP [address] [place] [address] Prior Authorization (Ozempic) Social History Tobacco Use [...] the past 12 months, has t he [employer], gas, oil or water [employer] threatened to shut off services in your [...] EST ABELARDO Wu signed and faxed to [employer]. Confirmation received and sent to [facility]. If patient calls to check status on above, please advise them to contact Pharmacy . * Telephone Encounter - Nikia Brito - 07/12/2024 1:48 PM EST ABELARDO Wu from [employer] placed on PCP desk for signature. documented in this encounter Plan of Treatment Upcoming Encounters Date Type Department Care Team (Late st Contact Info) Description 09/19/2024 3:00 PM EDT Office Visit [facility] MED[facility]INE [address] [place] [address] Rut Branham MD [address] [place] [address] 10/08/2024 1:00 PM EDT Office Visit [facility] [address] [place] [address] Naheed Zaman ANP [address] [place] [address] documented as of this encounter Visit Diagnoses Not on filedocumented in this encounter Additional Health Concerns Assessment Noted Time PHQ-9 Depression Total Score: 25 024 8:12 AM EDT documented as of this encounter Care Teams Film Sorter Relationship Specialty Start Date End Date Naheed Zaman ANP [address] [place] [phone] PCP - General Family Medicine 01/18/22 documented as of this encounter
--- OUTSIDE RECORDS SUMMARY | 2024-08-12 15:42 | XMS_ITS | Encounter Summary ---
Author Organization [employer] Address 75 [facility] 7t [place] [address] Care Team Providers Care Perinatal Nurse Name Role Phone Naheed Zaman Primary Care Provider [phone] Reason for Visit * Reason Onset Date Comments Nurse Triage 08/05/2024 Encounter Details Date Type Department Care Team ([facility] st Contact Info) Description 08/05/2024 Telephone [facility] [address] [place] [address] Naheed Zaman ANP [address] [place] [address] Nurse Triage Social History Tobacco Use Types [...] encounter Miscellaneous Notes * Telephone Encounter - Lela Witt RN - 08/07/2024 9:58 AM EDT TC placed to pt with BLS mold release worker Samantha #[id number] to check on status after [facility] ED visit yesterday for ongoing bleeding noted in the mouth. Pt was assessed and the chest XR was found to be negative along with testing for COVID, Flu and RSV. Pt H&H was found to be at baseline normal levels and theprovider at the ED thought that this might be a dental issue. Pt was found to have a severely decayed canine and significant gum swelling. Pt states that he has an appointment at the dentist today toaddress these concerns. Pt to call back as needed * Telephone Encounter - Arlette Hill RN [...] PM EDT TC placed to pt with S mold release worker Issa #[id number] to give advisement to be seen in [...] the original note were not included. No mold release worker needed as this entry writer speaks Turkish. Call returned to Ross Navarrete to triage [...] Call Back - You become worse FW: Perd??justin peterson Received: Today Colleen Herbert RN P [place] Triage Nurse Translation: Good morning doctor, I've been waking up for about a week with my mouth full of blood clots and my teeth are black and red, my tongue sweeney a lot, it feels like it's split and it tastes bad, bitter and like blood... Please let me know if it's not important, thank you. Previous Messages Perd??justin peterson (Newest Message First) View All Conversations on this Encounter You [place] Triage Nurse15 minutes ago (9:40 AM) VG Translation: Cesar morning doctor, I've been waking up for about a week with my mouth full of blood clots and my teeth are black and red, my tongue sweeney a lot, it feels like it's split and it tastes bad, bitter and like blood... Please let me know if it's not important, thank you. Ross [facility] [employer] Clinical Support (supporting OJSIAH Marquez)2 days ago [place]??as doctor llevo [...] Description 09/19/2024 3:00 PM EDT Office Visit [facility] [address] [place] [address] O'Rut Chapman MD [address] [place], [place] [phone] 10/08/2024 1:00 PM EDT Office Visit [facility] [address] [place] [address] Naheed Zaman ANP [address] [place] [address] documented as of this encounter Visit Diagnoses Not on filedocumented in this encounter Additional Health Concerns Assessment Noted Time PHQ-9 Depression Total Score: 25 024 8:12 AM EDT documented as of this encounter Care Teams Perinatal Nurse Relationship Specialty Start Date End Date Naheed Zaman ANP [address] [place] [phone] PCP - General Family Medicine 01/18/22 documented as of this encounter
--- OUTSIDE RECORDS SUMMARY | 2024-08-12 15:42 | XMS_ITS | Encounter Summary ---
Author Organization [employer] Address 75 [facility] 7t [place] [address] Care Team Providers Care Chemical Treatment Plant Technician Name Role Phone Sofia Mitchell JOSIAH Primary Care Provider [phone] Encounter Details Date Type Department Care Team ([facility] st Contact Info) Description 08/06/2024 Orders Only [...] Description 09/19/2024 3:00 PM EDT Office Visit [facility] MEDICINE [address] [place] [address] Rut Branham MD [address] [place] [address] 10/08/2024 1:00 PM EDT Office Visit [facility] MED[facility]INE [address] [place] [address] Sofia Mitchell ANP 230 [place] [address] documented as of this encounter Procedures Procedure Name Priority Date/Time Associated Diagnosis Comments SARS COV2/INFLUENZA A/B AND RSV RNA QL NAAT Routine 08/06/2024 12:26 PM EDT XR CHEST 1 VIEW Routine 08/06/2024 12:06 PM EDT CBC WITH AUTO DIFFERENTIAL Routine 08/06/2024 10:13 AM EDT PROTHROMBIN TIME-INR Routine 08/06/2024 10:13 AM EDT documented in this encounter Results * SARS-CoV-2 RNA, Influenza A/B, and RSV RNA, Ql NAAT (08/06/2024 12:26 PM EDT) Influenza A PCR NEGATIVE Negative [facility] Influenza B PCR NEGATIVE Negative [facility] Resp Syncy Virus RNA Qual PCR NEGATIVE Negative [facility] SARS COV2 PCR NEGATIVE Negative [facility] Comment:All test results mus t be correlated with clinical findings.Negative results do not preclude SARS-CoV2, influenza Avirus, influenza B virus and/or RSV infectionand should not be used as the sole basis for treatment orother patient management decisions. Negative results must becombined with clinical observations, patient history, andepidemiological information.This test has not been evaluated for monitoring treatment ofinfection.This test has been authorized by the FDA under an EmergencyUse Authorization (EUA) for use by authorized laboratories.Testing performed on the [employer] GeneXpert utilizingreal-time RT-PCR.All SARS CoV2 and positive influenza A/B results arereported to [facility]. 08/06/2024 12:2 6 PM EDT 08/06/2024 12:28 PM EDT us Generic External Data Provider LAB MICROBIOLOGY - GENERAL ORDERABLES Final Result [facility] [address] [place] [phone] * XR Chest 1 View (08/06/2024 12:06 PM EDT) Anatomical Region Laterality Modality Chest Radiographic Lupe ging 08/06/2024 12:0 6 PM EDT Narrative 08/06/2024 12:43 PM EDT ? [facility] ?[address] ?[place] [address] ?XRay Report ? Signed ? Patient: Navarrete,Ross L ?MR#: [id number] ?? [id number] ? : 1980 ?Acct:[id number] ? Age/Sex: 43 / M ?ADM Date: 03/11/25 ? Loc: HO.ED ? Attending Dr: ? Ordering Physician: Matilda Jones MD ?? Date of Service: 08/06/24 ?? Procedure(s): XR chest 1V ?? Accession Number(s): [id number] ? cc: Matilda Jones MD; SOFIA MITCHELL [...] DD/ 1206 ? TD/TT: 08/06/24 1218 ? Instructor Bridge: ? Procedure Note Roseanne, Maria T - 08/06/[address] [address] XRay Report Signed Patient: Ross Navarrete LMR#: [id number] : 1980Acct:[id number] Age/Sex: 43 / MADM Date: 08/06/24 Loc: .ED Attending Dr: Ordering Physician: Matilda Jones MD Date of Service: 08/06/24 Procedure(s): XR chest 1V Accession Number(s): [id number] cc: Matilda Jones MD; SOFIA MITCHELL NP [...] 08/06/24 1240 DD/ 1206 TD/TT: 08/06/24 1218 Instructor Bridge: [facility] External Provider IMG XR PROCEDURES Final Result * Prothrombin Time-INR (08/06/2024 10:13 AM EDT) Prothrombin Time 11.7 10.9 - 12.4 SEC [facility] INTERNATIONAL NORM RATIO 1.0 0.9 - 1.1 [facility] Comment:INTERNATIONAL NORMAL IZED RATIO (INR) [...] ORDERAB LES Final Result Performing Organization Address City/State/[facility] Co de Phone Number [facility] [address] [place] [phone] * (ABNORMAL) CBC auto differential (08/06/2024 10:13 AM EDT) White Blood Count 7.3 4.8 - 10.8 X10*3/uL [facility] Red Blood Count 4.61 4.60 - 5.80 X10*6/uL [facility] Hemoglobin 13.1(L) 14.0 - 18.0 g/dl [facility] Hematocrit 39.1(L) 42.0 - 52.0 % [facility] Mean Corpuscular Volume 84.8 80.0 - 98.0 fL [facility] Mean Corpuscular Hemoglobin 28.4 27.0 - 33.0 pg [facility] Mean Corpuscular HGB Conc 33.5 31.0 - 36.0 g/dl [facility] Red Cell Distribution Width 13.2 11.0 - 16.0 % [facility] Platelet Count 126(L) 160 - 400 X10*3/uL [facility] Mean Platelet Volume 11.4 9.4 - 12.4 fL [facility] Neutrophils Percent Auto 67.2 45 - 73 % [facility] Imm Gran Pct Auto 0.4 0.0 - 0.4 % [facility] Lymphocytes Percent Auto 24.9 20 - 40 % [facility] Monocytes Percent Auto 4.8 2 - 11 % [facility] Eosinophils Percent Auto 2.3 0 - 4 % [facility] Basophils Percent Auto 0.4 0 - 2 % [facility] NRBC Pct Auto 0.0 0.0 - 0.2 /100WBC [facility] Neutrophils Absolute Auto 4.9 2.0 - 8.3 x10*3/uL [facility] Imm Gran Abs Auto 0.03 0.00 - 0.03 X10*3/uL [facility] Lymphocytes Absolute Auto 1.8 1.2 - 4.9 X10*3/uL [facility] Monocytes Absolute Auto 0.4 0.1 - 1.2 X10*3/uL [facility] Eosinophils Absolute Auto 0.2 0.0 - 0.4 X10*3/uL [facility] Basophils Absolute Auto 0.0 0.0 - 0.2 X10*3/uL [facility] NRBC Abs Auto 0.000 0.0 - 0.012 X10*3/uL [facility] 08/06/2024 10:1 3 AM EDT 08/06/2024 10:16 AM EDT us Generic External Data Provider LAB BLOOD ORDERAB LES Final Result [facility] [address] [place] [phone] [phone] documented in this encounter Visit Diagnoses Not on filedocumented in this encounter Additional Health Concerns Assessment Noted Time PHQ-9 Depression Total Score: 25 024 8:12 AM EDT documented as of this encounter Care Teams Chemical Treatment Plant Technician Relationship Specialty Start Date End Date Sofia Mitchell ANP [address] [place] [address] PCP - General Family Medicine 01/18/22 documented as of this encounter
--- OUTSIDE RECORDS SUMMARY | 2024-08-12 15:42 | XMS_ITS | Encounter Summary ---
Author Organization [employer] Address 75 [facility] 7t [place] [address] Care Team Providers Care Relationship Manager Name Role Phone Naheed Zaman JOSIAH Primary Care Provider Reason for Visit * Reason Comments Med Refill Encounter Details Date Type Department Care Team ([facility] st Contact Info) Description 07/24/2024 Refill [facility] [address] [place] [address] Verona Estrada MD [address] [place] [address] Venous stasis dermatitis of both lower extremities [...] the past 12 months, has t he [employer], gas, oil or water company threatened to [...] Description 09/19/2024 3:00 PM EDT Office Visit [facility] [address] [place] [address] Rut Branham MD [address] [place] [address] 10/08/2024 1:00 PM EDT Office Visit [facility] [address] [place] [address] Naheed Zaman ANP [address] [place] [address] documented as of this encounter Visit Diagnoses Diagnosis Venous stasis dermatitis of both lower extremities documented in this encounter Additional Health Concerns Assessment Noted Time PHQ-9 Depression Total Score: 25 024 8:12 AM EDT documented as of this encounter Care Teams Relationship Manager Relationship Specialty Start Date End Date Naheed Zaman ANP [address] [place] [address] PCP - General Family Medicine 01/18/22 documented as of this encounter
--- OUTSIDE RECORDS SUMMARY | 2024-08-12 15:42 | XMS_ITS | Encounter Summary ---
Author Organization [employer] Address 75 [facility] 7 [place] [address] Care Team Providers Care Purchaser Name Role Phone Naheed Zaman Primary Care Provider [phone] Reason for Visit * Reason Comments OBAT Encounter Details Date Type Department Care Team ([facility] Contact Info) Description 07/25/2024 3:00 PM EST Office Visit [facility] MEDICINE [address] [place] [address] Rut Branham MD 230 [place] [address] Opioid type dependence, continuous (CMS/HCC) (Primary Dx); [...] the past 12 months, has t he [employer], gas, oil or water company threatened to [...] 05/16/24. [facility] RAMONE GAY reviewed by provider. Last PCP appt 03/29/24, next 07/10/24. LAST VISIT 06/27/24 +bup, thc Ross reports everything is fine with Suboxone. Still struggling with everything else . Awaiting new psych appt with [facility] provider 07/16/24. Declines to see Vee today. [...] He continues to feel depressed. He saw attending psychiatrist Jermaine Suárez last week for an initial [...] for this visit: Opioid type dependence, continuous ([facility]) Counseling provided RE: importance of multiple sources of support for achieving and maintaining recovery. Counseling RE: harm reduction measures, ie, not using alone, the use of clean needles/equipment, Narcan. Discussed strategies to use when confronted with situations that trigger use. Continue current Suboxone dose. Continue monthly visits. - POCT RAMSES-14 Urine Drug Screen Severe episode of recurrent major depressive disorder, without psychotic features ([facility]) Support provided. Continue current treatment plan. This [...] 09/19/2024 3:00 PM EDT Office Visit [address] [address] Rut Branham MD 230 [place] [address] 10/08/2024 1:00 PM EDT Office Visit [facility] MED[facility] [address] [place] [address] Naheed Zaman ANP [address] [place] [address] documented as of this encounter Procedures Procedure [...] documented as of this encounter Care Teams Purchaser Relationship Specialty Start Date End Date Naheed Zaman ANP [address] [place] [address] PCP - General Family Medicine 01/18/22 documented as of this encounter
--- OUTSIDE RECORDS SUMMARY | 2024-08-12 15:42 | XMS_ITS | Clinical Summary ---
Author Organization 175 [facility] Address [address] [place] [address] Phone Care Team Providers Care Adjudication Specialist Name Role Phone Naheed Zaman NP Primary Care Provider [phone] Allergies Active Allergy Reactions Criticality Noted Date [...] myelopathy or radiculopathy 04/26/2017 Overview (04/17/2024): [facility] Rheumatology BETSY (obstructive sleep apnea) 04/26/2017 Overview (04/17/2024): Polysomnography 08/05/2009, [facility] :On cpap 14 cm H2O 10/23/2017 Home Sleep Study insufficient data. 08/2018 - Pulm ordered split night study. Diabetes mellitus type 2 with neurological manif estations 04/26/2017 CTS (carpal tunnel syndrome) 04/26/2017 Encounters Date Type Department Care Team Description 06/03/2024 2:30 PM EST Consult Orthopedic Surgery - [place] [address] [phone] Bg Yeager, NASREEN Ingrowing nail [...] DX:History of acute post-streptococcal glomerulonephritis; COMMENT: Hospitalized [facility] with anasarca/ KUNAL 2010, streptolysin titer 1060, kidney bx, Followed in past by Dr Zapata, NSAIDS not recommended HTN (hypertension) 05/10/2017 DX:HTN (hyper tension) Morbid obesity with BMI of 6 0.0-69.9, adult (CMS/HCC) 04/26/2017 DX:Morbid obesity with BMI o f 60.0-69.9, adult ([facility]) BETSY (obstructive sleep apnea) 04/26/2017 DX :BETSY (obstructive sleep apnea); COMMENT: Polysomnography 08/05/2009, [facility] :On cpap 14 cm H2O Pulmonary hypertension (CMS/HCC) 05/10/2017 DX:Pulmonary hypertension (HCC); COMMENT: Mild, ECHO 10/21/10 [facility], EF 65-70% Otherwise normal altho suboptimal views, [...] egion without myelopathy or radiculopathy; COMMENT: Saw [facility] Rheumatology Family History Medical History Relation Name [...] PM EDT Office Visit Orthopedic Surgery - [facility] [address] [phone] Bg Yeager, DPM [address] [address] Health Maintenance Due Date Last Done Comments [...] Test (02/27/2020) Annual BMP Blood Test Abstracted [facility] Provider MD HEALTH MAINTENANCE Final [...] Maintenance Insurance MEDICAID - [place] Care Teams Adjudication Specialist Relationship Specialty Start Date End Date Naheed Zaman NP [address] [place] [phone] PCP - General 02/21/24
--- OUTSIDE RECORDS SUMMARY | 2024-08-12 15:42 | XMS_ITS | Encounter Summary ---
Author Organization [employer] [facility] Address [address] [place] [address] 7 [place] [address] Care Team Providers Care Crop Farm Helper Name Role Phone Naheed Zaman Primary Care Provider [phone] Encounter Details Date Type Department Care Team (Latest Contact Info) Description 12/29/2021 Abstract [facility] CONVERSIONS Dental, Provider, DDS Social [...] Description 09/19/2024 3:00 PM EDT Office Visit [facility] MEDICINE [address] [place] [address] Rut Branham MD 230 [place] [address] 10/08/2024 1:00 PM EDT Office Visit [facility] MEDICINE [address] [place] [address] Naheed Zaman ANP [address] [place] [address] documented as of this encounter Visit Diagnoses Not on filedocumented in this encounter Care Teams Crop Farm Helper Relationship Specialty Start Date End Date Naheed Zaman ANP [address] [place] [address] PCP - General Family Medicine 01/18/22 documented as of this encounter
--- OUTSIDE RECORDS SUMMARY | 2024-08-12 15:42 | XMS_ITS | Encounter Summary ---
Author Organization [employer] Address 75 [facility] 7t [place] [address] Care Team Providers Care Architectural Sales Consultant Name Role Phone Naheed Zaman Primary Care Provider [phone] Reason for Visit * Reason Onset Date Comments Durable Medical Equipment 08/06/2024 Grab b ars Encounter Details Date Type Department Care Team ([facility] st Contact Info) Description 08/06/2024 Telephone [facility] [address] [place] [address] Naheed Zaman ANP [address] [place] [address] Durable Medical Equipment (Grab bars) Social History [...] Telephone Encounter - Nikia Brito - 08/09/2024 12:16 PM EDT RX for grab bars signed and faxed to [facility] . Confirmation received and sent to scan. If patient calls to check status on above, please advise them to contact [facility] at [phone]. * Telephone Encounter - Nikia Brito - [...] Description 09/19/2024 3:00 PM EDT Office Visit [facility] MED[facility] [address] [place] [address] Rut Branham MD 230 [place] [address] 10/08/2024 1:00 PM EDT Office Visit [facility] [address] [place] [address] Naheed Zaman ANP [address] [place] [address] documented as of this encounter Visit Diagnoses Not on filedocumented in this encounter Additional Health Concerns Assessment Noted Time PHQ-9 Depression Total Score: 25 024 8:12 AM EDT documented as of this encounter Care Teams Architectural Sales Consultant Relationship Specialty Start Date End Date Naheed Zaman ANP [address] [place] [address] PCP - General Family Medicine 01/18/22 documented as of this encounter
--- OUTSIDE RECORDS SUMMARY | 2024-08-12 15:42 | XMS_ITS | Encounter Summary ---
Author Organization [employer] Address [address] 7t [place] [address] Care Team Providers Care Manager Hospital Name Role Phone Naheed Zaman JOSIAH Primary Care Provider [phone] Encounter Details Date Type Department Care Team (Late st Contact Info) Description 08/01/2024 2:45 PM EST Office Visit [facility] OPTOMETRY [address] [place] [address] Gary, Coreen, OD [address] [place] [address] Hyperopia of both eyes (Primary Dx) Social [...] Progress Notes * Coreen Vega OD - 08/01/2024 2:45 PM EST MH glasses were dispensed, 1 of 2. documented in this encounter Plan of Treatment Upcoming Encounters Date Type Department Care Team (Late st Contact Info) Description 09/19/2024 3:00 PM EDT Office Visit [facility] MEDICINE [address] [place] [address] Rut Branham MD 230 [place] [address] 10/08/2024 1:00 PM EDT Office Visit [facility] MEDICINE [address] [place] [address] Naheed Zaman ANP 230 [place] [address] documented as of this encounter Visit Diagnoses Diagnosis Hyperopia of both eyes- Primary documented in this encounter Additional Health Concerns Assessment Noted Time PHQ-9 Depression Total Score: 25 024 8:12 AM EDT documented as of this encounter Care Teams Manager Hospital Relationship Specialty Start Date End Date Naheed Zaman ANP [address] [place] [address] PCP - General Family Medicine 01/18/22 documented as of this encounter
--- OUTSIDE RECORDS SUMMARY | 2024-08-12 15:42 | XMS_ITS | Encounter Summary ---
Author Organization [employer] Address 75 [facility] 7t [place] [address] Care Team Providers Care Clay Mixer Name Role Phone Naheed Zaman JOSIAH Primary Care Provider [phone] Encounter Details Date Type Department Care Team ([facility] st Contact Info) Description 08/09/2024 Population Health Risk Score [facility] ([facility]) Department [address] [phone] Provider, Population Health Generic Social History Tobacco Use Types Packs/Day Years [...] 09/19/2024 3:00 PM EDT Office Visit [facility] MEDICINE [address] [place] [address] Rut Branham MD [address] [place] [address] 10/08/2024 1:00 PM EDT Office Visit [facility] MEDICINE [address] [place] [address] Naheed Zaman ANP [address] [place] [address] documented as of this encounter Visit Diagnoses Not on filedocumented in this encounter Additional Health Concerns Assessment Noted Time PHQ-9 Depression Total Score: 25 024 8:12 AM EDT documented as of this encounter Care Teams Clay Mixer Relationship Specialty Start Date End Date Naheed Zaman ANP [address] [place] [address] PCP - General Family Medicine 01/18/22 documented as of this encounter
--- OUTSIDE RECORDS SUMMARY | 2024-08-12 15:42 | XMS_ITS | Encounter Summary ---
Author Organization [employer] Address 75 [facility] 7t [place] [address] Care Team Providers Care Metal Furrer Name Role Phone Naheed Zaman JOSIAH Primary Care Provider [phone] Reason for Visit * Reason Comments Med Refill Encounter Details Date Type Department Care Team ([facility] st Contact Info) Description 09/14/2023 Refill [facility] MEDICINE 230 [place], [place] [phone] Dayna Cardenas MD 230 [place], [place] [phone] Uncomplicated opioid dependence (CMS/HCC) Social History Tobacco [...] Description 09/19/2024 3:00 PM EDT Office Visit [facility] MEDICINE [address] [place] [address] Rut Branham MD [address] [place] [address] 10/08/2024 1:00 PM EDT Office Visit [facility] MEDICINE [address] [place] [address] Naheed Zaman ANP [address] [place] [address] documented as of this encounter Visit Diagnoses Diagnosis Uncomplicated opioid dependence (CMS/HCC) documented in this encounter Additional Health Concerns Assessment Noted Time PHQ-9 Depression Total Score: 6 11/19/19 23 3:29 PM EDT documented as of this encounter Care Teams Metal Furrer Relationship Specialty Start Date End Date Naheed Zaman ANP [address] [place] [address] PCP - General Family Medicine 01/18/22 documented as of this encounter
--- OUTSIDE RECORDS SUMMARY | 2024-08-12 15:42 | XMS_ITS | Encounter Summary ---
Author Organization [employer] Address [address] [facility] [address] [place] [address] Care Team Providers Care College Dean Name Role Phone Naheed Zaman JOSIAH Primary Care Provider [phone] Encounter Details Date Type Department Care Team (Latest Contact Info) Description 08/02/2024 Outside Procedure [facility] OPTOMETRY [address] [place] [address] Gary, Coreen, OD [address] [place] [address] Presbyopia (Primary Dx) Social History Tobacco Use [...] 09/19/2024 3:00 PM EDT Office Visit [facility] MEDICINE [address] [place] [phone] Rut Branham MD [address] [place] [address] 10/08/2024 1:00 PM EDT Office Visit [facility] MEDICINE [address] [place] [address] Naheed Zaman ANP [address] [place] [phone] documented as of this encounter Visit Diagnoses Diagnosis Presbyopia- Primary documented in this encounter Additional Health Concerns Assessment Noted Time PHQ-9 Depression Total Score: 25 024 8:12 AM EDT documented as of this encounter Care Teams College Dean Relationship Specialty Start Date End Date Naheed Zaman ANP [address] [place] [address] PCP - General Family Medicine 01/18/22 documented as of this encounter
--- OUTSIDE RECORDS SUMMARY | 2024-08-12 15:42 | XMS_ITS | Encounter Summary ---
Author Organization [employer] Address [address] [facility] [address]t [place] [address] Care Team Providers Care Striper Machine Name Role Phone Naheed Zaman JOSIAH Primary Care Provider [phone] Encounter Details Date Type Department Care Team [...] Description 09/19/2024 3:00 PM EDT Office Visit [facility] MEDICINE [address] [place] [address] Rut Branham MD [address] [place] [address] 10/08/2024 1:00 PM EDT Office Visit [facility] MEDICINE [address] [place] [address] Naheed Zaman ANP [address] [place] [phone] documented as of this encounter Visit Diagnoses Not on filedocumented in this encounter Additional Health Concerns Assessment Noted Time PHQ-9 Depression Total Score: 25 024 8:12 AM EDT documented as of this encounter Care Teams Striper Machine Relationship Specialty Start Date End Date Naheed Zaman ANP [address] [place] [address] PCP - General Family Medicine 01/18/22 documented as of this encounter
--- OUTSIDE RECORDS SUMMARY | 2024-08-12 15:42 | XMS_ITS | Encounter Summary ---
Author Organization [employer] Address [address] [facility] 7t [place] [address] Care Team Providers Care Performing Artist Name Role Phone Naheed Zaman Primary Care Provider [phone] Reason for Visit * Reason Onset Date Comments Durable Medical Equipment 10/04/2022 Encounter Details Date Type Department Care Team (Late st Contact Info) Description 10/04/2022 Telephone [facility] MEDICINE [address] [place] [address] Naheed Zaman ANP [address] [place] [address] Durable Medical Equipment Social History Tobacco Use [...] for Compressions socks. Please contact pt at [phone] documented in this encounter Plan of Treatment Upcoming Encounters Date Type Department Care Team (Late st Contact Info) Description 09/19/2024 3:00 PM EDT Office Visit [facility] MEDICINE [address] [place] [address] Rut Branham MD [address] [place] [phone] 10/08/2024 1:00 PM EDT Office Visit [address] [address] Naheed Zaman ANP [address] [place] [address] documented as of this encounter Visit Diagnoses Not on filedocumented in this encounter Care Teams Performing Artist Relationship Specialty Start Date End Date Naheed Zaman ANP [address] [place] [phone] PCP - General Family Medicine 01/18/22 documented as of this encounter
--- OUTSIDE RECORDS SUMMARY | 2024-08-12 15:42 | XMS_ITS | Encounter Summary ---
Author Organization [employer] Address [address] [facility] 7[address] [place] [address] Care Team Providers Care Long Wall Shear Operator Name Role Phone Naheed Zaman Primary Care Provider [phone] Encounter Details Date Type Department Care Team (Late Contact Info) Description 07/28/2022 Abstract [facility] ADULT DENTAL [address] [place] [address] Zay Schmidt DDS [address] [place] [address] Social History Tobacco Use Types Packs/Day Years [...] 09/19/2024 3:00 PM EDT Office Visit [facility] MEDICINE [address] [place] [address] Rut Branham MD [address] [place] [address] 10/08/2024 1:00 PM EDT Office Visit [facility] [address] [facility] [place] [place] [phone] Naheed Zaman ANP [address] [place] [address] documented as of this encounter Visit Diagnoses Not on filedocumented in this encounter Care Teams Long Wall Shear Operator Relationship Specialty Start Date End Date Naheed Zaman ANP [facility] [place] [address] PCP - General Family Medicine 01/18/22 documented as of this encounter
--- OUTSIDE RECORDS SUMMARY | 2024-08-12 15:42 | XMS_ITS | Clinical Summary ---
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 Alcohol Swabs (Alcohol Prep) 70 % pads USE FOUR TIMES DAILY WITH INSULIN Active Blood Glucose Monitoring Suppl (FreeStyle [place] Lite) w/Device kit TEST BLOOD SUGAR FOUR TIMES DAILY Active FREESTYLE LITE test strip TEST BLOOD SUGAR FOUR TIMES DAILY Active glucose blood (FREESTYLE LITE) test strip check fingerstick 4 times a day Active Sure Comfort Pen [place] 31G X 5 MM misc USE FOUR [...] Active beta carotene (vitamin A) 3 MG (13641 UT) capsule TAKE 2 CAPSULES BY MOUTH [...] Active Blood Pressure Monitor kitIndications:P ulmonary hypertension ([facility]) 1 kit in the morning. 1 kit 024 Active metoclopramide (Reglan) 10 MG tablet 1 tablet as needed every 6 hrs for nausea/vomiting 40 tablet 024 Active atorvastatin (Lipitor) 10 MG tabletIndication s:Type 2 diabetes mellitus with hyperlipidemia ([facility]/HCC) ([facility]) Take 1 tablet (10 mg) [...] use. 473 mL 024 Active Continuous Glucose Superintendent Distribution (FreeStyle Casey 2 [place]) deviceIndication s:Diabetes mellitus with albuminuria (CMS/HCC) ([facility]) Scan sensor every 8 hours 1 each 024 Active Continuous Glucose Sensor (FreeStyle Casey 2 Sensor) miscIndications: Diabetes mellitus with albuminuria (CMS/HCC) ([facility]) Apply 1 sensor every 14 days 2 each 024 Active glucose blood (FreeStyle Precision Lefty Test) test stripIndications :Diabetes mellitus with albuminuria (CMS/HCC) ([facility]) Use to test blood sugar [...] DRY SKIN 45 g 2 025 Active betamethasone valerate (Valisone) 0.1 % creamIndications [...] Health Integration Plan Internal Follow up with [facility] Patient Self Plan Patient to reach out to [facility] team as needed, Comply with medication , [...] Health Integration Plan Internal Follow up with [facility] Patient Self Plan Patient to reach out to [facility] team as needed, Comply with medication , [...] Health Integration Plan Internal Follow up with [facility] Patient Self Plan Patient to utilize skills provided in intervention , Patient to reach out to [facility] team as needed, and Patient to reach [...] Health Integration Plan Internal Follow up with [facility] External OP psychiatry Referral Patient Self Plan Patient to reach out to [facility] team as needed, Comply with medication , Patient to engage in OP BH therapy , and Patient to reach out to [facility] as needed Assessment & Plan (09/20/2023 10:06 AM EDT): New/Additional Services needed Off-site services for Behavioral Health Integration Plan External OP BH therapy referral Patient Self Plan Patient to utilize skills provided in intervention , Patient to reach out to [facility] team as needed, Comply with medication [...] explained that she tried referring pt to [facility] and other centers and pt;s can not be evaluated for plastic surgery w current BMI -I request referral to be sent to [facility] but was explained is the same criteria [...] hypertension 05/10/2017 Overview (07/28/2022): Mild, ECHO 10/21/10 [facility], EF 65-70% H. pylori infection 05/10/2017 Overview (07/28/2022): + serology 08/07/2009, uncertain if treated Gout 05/10/2017 Elevated liver enzymes 05/10/2017 Overview (07/28/2022): fatty liver Arthritis 05/10/2017 Overview (07/28/2022): Mild L knee, Mod L shoulder arthropathy Asthma 05/10/2017 Spondylosis of lumbar region without myelopathy or radiculopathy 04/26/2017 Overview (07/28/2022): Saw [facility] Rheumatology CTS (carpal tunnel syndrome) 04/26/2017 Assessment [...] sleep apnea) 05/18/2015 Overview (07/28/2022): Polysomnography 08/05/2009, [facility] :On cpap 14 cm H2O 10/23/2017 Home Sleep Study insufficient data. 08/2018 - Pulm ordered split night study. Proteinuria 05/18/2015 Encounters * This document contains information received from the source organization and may not represent a complete record from that organization. Date Type Department Care Team Description 08/09/2024 Population Health Risk Score [facility] (C3) Department [address] [phone] Provider, Population Health Generic 08/06/2024 Telephone [facility] [address] [place] [address] Sofia Mitchell ANP Prior Authorization (Ozempic) 08/06/2024 Telephone [facility] [address] [place] [phone] Sofia Mitchell ANP Durable Medical Equipment (Grab bars) 08/06/2024 Orders Only GENERIC EXTERNAL DATA DEPARTMENT Provider, Generic External Data 08/05/[address] [address] Sofia Mitchell ANP Nurse Triage 08/02/2024 Outside Procedure [facility] [address] [place] [address] Gary, Coreen, OD Presbyopia (Primary Dx) 08/01/2024 2:45 PM EST Office Visit [facility] [address] [place] [address] Arik Vegan, OD Hyperopia of both eyes (Primary Dx) 07/25/2024 3:00 PM EST Office Visit [facility] [address] [place] [phone] Rut Branham MD Opioid type dependence, continuous (CMS/HCC) (Primary Dx); Severe episode of recurrent major depressive disorder, without psychotic features (CMS/HCC) 07/25/2024 Travel 07/24/2024 Refill [facility] [address] [place] [phone] Verona Estrada MD Venous stasis dermatitis of both lower extremities 07/18/2024 Refill [facility] [address] [place] [phone] Tristen Chen RN Uncomplicated opioid dependence (CMS/HCC) 07/16/2024 Travel 07/12/[address] [address] Sofia Mitchell ANP Prior Authorization (Ozempic) 07/10/2024 2:00 PM EST Office Visit [address] [address] Sofia Mitchell ANP Type 2 diabetes mellitus with hyperlipidemia ([facility]) (Primary Dx); MICHAEL (generalized anxiety disorder); Severe episode of recurrent major depressive disorder, without psychotic features (CMS/HCC); Persistent proteinuria; Class 3 severe obesity with serious comorbidity and body mass index (BMI) of 50.0 to 59.9 in adult, unspecified obesity type (CMS/[facility]); Spondylosis of lumbar region without myelopathy or radiculopathy; Bilateral lower extremity edema; BETSY (obstructive sleep apnea); Polyarthralgia; Acute torn meniscus of knee, right, sequela 07/10/2024 Travel 07/10/[address] [address] Anette Carrion MA Chart prep 07/09/[address] [address] Nikki Díaz RN Right shoulder X ray 07/03/2024 2:00 PM EST Office Visit [facility] [address] [place] [address] [phone] Lyndsay Tariq NP Chronic right shoulder pain (Primary Dx); Elevated blood pressure reading in office with diagnosis of hypertension 07/03/2024 Orders Only GENERIC EXTERNAL DATA DEPARTMENT Provider, Generic External Data 07/03/2024 Travel 06/27/2024 11:15 AM EST Office Visit [facility] [address] [facility] [place] [address] Kaitlyn Burk, OD Type 2 diabetes mellitus without ophthalmic manifestations (CMS/HCC) (Primary Dx); Presbyopia 06/27/2024 10:30 AM EST Clinical Support [facility] [address] [place] [address] Tristen Chen RN Opioid type dependence, continuous (CMS/HCC) (Primary Dx) 06/27/2024 Travel 06/26/2024 Refill [facility] [address] [place] [address] Heidy Taylor MD Chronic low back pain without sciatica, unspecified back pain laterality 06/21/2024 Telephone [facility] [address] [place] [phone] Sofia Mitchell, ANP 06/18/2024 Refill [facility] [address] [place] [phone] Tristen Chen RN Uncomplicated opioid dependence (CMS/HCC) 06/09/2024 Refill [facility] [address] [place] [address] Sofia Mitchell, ANP 06/07/[address] [address] Sofia Mitchell, ANP 06/04/2024 9:40 AM EST [facility] [address] [address] Fermin Steward MD Chest pain, unspecified type (Primary Dx); Acute intractable headache, unspecified headache type; Hypertension, unspecified type 06/04/2024 Orders Only GENERIC EXTERNAL DATA DEPARTMENT Provider, Generic External Data 05/30/2024 2:45 PM EST Office Visit [facility] [address] [place] [address] Rut Branham MD Opioid type dependence, continuous (CMS/HCC) (Primary Dx); Severe episode of recurrent major depressive disorder, without psychotic features (CMS/HCC) 05/30/2024 Travel 05/23/2024 Refill [facility] [address] [place] [phone] Tristen Chen RN Uncomplicated opioid dependence ([facility]/HCC) 05/23/2024 Telephone [facility] [address] [place] [address] Judi Brumfield MA June recall 05/23/2024 Refill [facility] [address] [place] [address] Sofia Mitchell ANP Severe episode of recurrent major depressive disorder, without psychotic features (CMS/HCC) 05/20/2024 2:20 PM EST Office Visit [facility] [address] [place] [phone] Desirae Cowan MD Candidiasis of perineum (Primary Dx) 05/17/2024 Orders Only GENERIC EXTERNAL DATA DEPARTMENT Provider, Generic External Data 05/16/2024 Orders Only GENERIC EXTERNAL DATA DEPARTMENT Provider, Generic External Data 05/16/[address] [address] Sofia Mitchell ANP 05/14/[address] [address] Sofia Mitchell ANP from Last 3 Months [...] Description 09/19/2024 3:00 PM EDT Office Visit [facility] [address] [place] [address] Rut Branham MD [address] [place] [address] 10/08/2024 1:00 PM EDT Office Visit [facility] [address] [place] [address] Soifa Mitchell ANP [address] [place], [place] [phone] Health Maintenance Due Date Last Done Comments [...] 19+ 3-dose series) 11/14/2023 10/17/2023 COVID-19 Vaccine (2023- season) 2024 12/29/2020, 12/10/2020 Influenza Vaccine (#1) [...] AUTO DIFFERENTIAL Routine 05/16/2024 6:10 PM EST LIPID PANEL, STANDARD Routine 04/24/2024 11:23 AM EST HIV 1/2 ANTIGEN/ANTIBODY, FOURTH GENERATION W/RFL Routine 12/13/2023 11:48 AM EDT Elevated erythrocyte sedimentation rate 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) (CMS/HCC) from Last 3 Months or Most Recently Relevant to Health Maintenance Results * SARS-CoV-2 RNA, Influenza A/B, and RSV RNA, Ql NAAT (08/06/2024 12:26 PM EDT) Influenza A PCR NEGATIVE Negative [facility] Influenza B PCR NEGATIVE Negative [facility] Resp Syncy Virus RNA Qual PCR NEGATIVE Negative [facility] SARS COV2 PCR NEGATIVE Negative [facility] Comment:All test results mus t be [...] use by authorized laboratories.Testing performed on the [employer] retargeting GeneXpert utilizingreal-time RT-PCR.All SARS CoV2 and positive influenza A/B results arereported to [facility]. 08/06/2024 12:2 6 PM EDT 08/06/2024 12:28 PM EDT us Generic External Data Provider LAB MICROBIOLOGY - GENERAL ORDERABLES Final Result [facility] [address] [place] [address] [phone] * XR Chest 1 View (08/06/2024 12:06 PM EDT) Only the most recent of2 resultswithin the time period is included. Anatomical Region Laterality Modality Chest Radiographic Lupe ging 08/06/2024 12:0 6 PM EDT Narrative 08/06/2024 12:43 PM EDT ? [facility] ?[address] ?[place] [address] ?XRay Report ? Signed ? Patient: Ross Navarrete ?MR#: [id number] ?? 613 ? : 1980 ?Acct:[id number] ? Age/Sex: 43 / M ?ADM Date: 08/06/24 ? Loc: HO.ED ? Attending Dr: ? Ordering Physician: Matilda Jones MD ?? Date of Service: 08/06/24 ?? Procedure(s): XR chest 1V ?? Accession Number(s): [id number] ? cc: Matilda Jones MD; SOFIA MITCHELL [...] DD/ 1206 ? TD/TT: 08/06/24 1218 ? [employer]: ? Procedure Note Donotuseinterpreter, Image - 08/06/[address] [address] XRay Report Signed Patient: Ross Navarrete LMR#: [id number] 613 : 1980Acct:[id number] Age/Sex: 43 / MADM Date: 08/06/24 Loc: HO.ED Attending Dr: Ordering Physician: Matilda Jones MD Date of Service: 08/06/24 Procedure(s): XR chest 1V Accession Number(s): [id number] cc: Matilda Jones MD; SOFIA MITCHELL NP [...] 08/06/24 1240 DD/ 1206 TD/TT: 08/06/24 1218 [employer]: [facility] External Provider IMG XR PROCEDURES Final Result * (ABNORMAL) CBC auto differential (08/06/2024 10:13 AM EDT) Only the most recent of3 resultswithin the time period is included. White Blood Count 7.3 4.8 - 10.8 X10*3/uL [facility] Red Blood Count 4.61 4.60 - 5.80 X10*6/uL [facility] Hemoglobin 13.1(L) 14.0 - 18.0 g/dl [facility] Hematocrit 39.1(L) 42.0 - 52.0 % [facility] Mean Corpuscular Volume 84.8 80.0 - 98.0 fL [facility] Mean Corpuscular Hemoglobin 28.4 27.0 - 33.0 pg [facility] Mean Corpuscular HGB Conc 33.5 31.0 - 36.0 g/dl [facility] Red Cell Distribution Width 13.2 11.0 - 16.0 % [facility] Platelet Count 126(L) 160 - 400 X10*3/uL [facility] Mean Platelet Volume 11.4 9.4 - 12.4 fL [facility] Neutrophils Percent Auto 67.2 45 - 73 % [facility] Imm Gran Pct Auto 0.4 0.0 - 0.4 % [facility] Lymphocytes Percent Auto 24.9 20 - 40 % [facility] Monocytes Percent Auto 4.8 2 - 11 % [facility] Eosinophils Percent Auto 2.3 0 - 4 % [facility] Basophils Percent Auto 0.4 0 - 2 % [facility] NRBC Pct Auto 0.0 0.0 - 0.2 /100WBC [facility] Neutrophils Absolute Auto 4.9 2.0 - 8.3 x10*3/uL [facility] Imm Gran Abs Auto 0.03 0.00 - 0.03 X10*3/uL [facility] Lymphocytes Absolute Auto 1.8 1.2 - 4.9 X10*3/uL [facility] Monocytes Absolute Auto 0.4 0.1 - 1.2 X10*3/uL [facility] Eosinophils Absolute Auto 0.2 0.0 - 0.4 X10*3/uL [facility] Basophils Absolute Auto 0.0 0.0 - 0.2 X10*3/uL [facility] NRBC Abs Auto 0.000 0.0 - 0.012 X10*3/uL [facility] 08/06/2024 10:1 3 AM EDT 08/06/2024 10:16 AM EDT us Generic External Data Provider LAB BLOOD ORDERAB LES Final Result Performing Organization Address City/[facility]/ZIP Co de Phone Number [facility] [address] [place] [phone] * Prothrombin Time-INR (08/06/2024 10:13 AM EDT) Prothrombin Time 11.7 10.9 - 12.4 SEC [facility] INTERNATIONAL NORM RATIO 1.0 0.9 - 1.1 [facility] Comment:INTERNATIONAL NORMAL IZED RATIO (INR) REFERENCE [...] ORDERAB LES Final Result Performing Organization Address City/[facility]/ZIP Co de Phone Number [facility] [address] [place] [phone] * POCT RAMSES-14 Urine Drug Screen (07/25/2024 2:14 PM EST) Only the most recent of3 resultswithin the time period is included. Urine Urine specimen obtained by clean catch procedure / Unknown 07/25/2024 2:14 PM EST Rut Branham MD POINT OF CARE TEST ENTER/YI T ORDERABLES Final Result * (ABNORMAL) POCT HGB A1C (07/10/2024 2:05 PM EST) [facility] Hemoglobin A1C 6.7(A) 4.0 - 6.0 % QC Media Lot # [id number] Lot# Expiration Date Blood 07/10/2024 2:05 PM EST formerly [facility] ANP POINT OF CARE TEST ENTER/EDIT OR DERABLES Final Result * POCT Glucose (07/10/2024 2:02 PM EST) [facility] Glucose Blood, POC 127 60 - 200 mg/dL QC Media Lot # [id number] Lot# Expiration Date Blood Capillary blood specimen / Unknown 07/10/2024 2:02 PM EST formerly [facility] ANP POINT OF CARE TEST ENTER/EDIT OR DERABLES Final Result * T-SPOT??.TB (07/03/2024 1:30 PM EST) [facility] T Spot TB Negative Negative [facility] Comment:A negative test resu lt does [...] as aquantitative test. TS PANEL A 0 [facility] TS PANEL B 0 [facility] Negative Control Passed [facility] Positive Control Passed [facility] Comment:For additional infor mation, please refer [email or web address](This link is being provided for informational/educational purposes only.)THIS TEST WAS PERFORMED AT:[employer] [facility] [id number] [place] [address]WWIQYVY Georgia NICOLAS MD,PHD 07/03/2024 1:30 PM EST 07/03/2024 4:16 PM EST Generic External Data Provider LAB BLOOD ORDERAB LES Final Result Performing Organization Address [facility] Co de Phone Number [facility] [address] [place] [phone] * Hepatitis Panel, General (07/03/2024 1:30 PM EST) Hepatitis A IgM Nonreactive Nonreactive [facility] Comment:IgM antibodies to MONTERO V not detected; does not exclude earlyacute or recovered HAV infection. ~Hepatitis B Surface Antibody NONREACTIVE Nonreactive [facility] Comment:Nonreactive: < 8.00 mIU/mL Hepatitis B Core Antibody Nonreactive Nonreactive [facility] Hepatitis C Antibody Nonreactive Nonreactive [facility] Comment:Antibodies to HCV no t detected; does not exclude early acuteHCV infection. Hepatitis B Surface Ag Negative Negative [facility] 07/03/2024 1:30 PM EST 07/03/2024 4:16 PM EST Generic External Data Provider LAB BLOOD ORDERAB LES Final Result Performing Organization Address [facility] Co de Phone Number [facility] [address] [place] [phone] * (ABNORMAL) Drug Monitoring, Panel 1, Screen, Urine (07/03/2024 1:30 PM EST) Only the most recent of2 resultswithin the time period is included. Opiate Screen Urine Not Detected Not Detect [facility] Comment:Opiate cut-off is 30 0 ng/mL.Positive results are unconfirmed and should not be used fornon-medical purposes. Barbiturates, Urine Not Detected Not Detect [facility] Comment:Barbiturate cut-off is 200 ng/mL.Positive results are unconfirmed and should not be used fornon-medical purposes. Phencyclidine Screen Urine Not Detected Not Detect [facility] Comment:Phencyclidine cut-of f is 25 ng/mL.Positive results are unconfirmed and should not be used fornon-medical purposes. Amphetamine Screen Urine Not Detected Not Detect [facility] Comment:Amphetamine cut-off is 1000 ng/mL.Positive results are unconfirmed and should not be used fornon-medical purposes. Benzodiazepines Screen Urine Not Detected Not Detect [facility] Comment:Benzodiazepine cut-o ff is 200 ng/mL.Positive results are unconfirmed and should not be used fornon-medical purposes. Cocaine Screen Urine Not Detected Not Detect [facility] Comment:Cocaine cut-off is 3 00 ng/mL.Positive results are unconfirmed and should not be used fornon-medical purposes. Cannabinoid Screen Urine POSITIVE(A) Not Detect [facility] Comment:Cannabinoid cut-off is 50 ng/mL.Positive results are unconfirmed and should not be used fornon-medical purposes. Methadone Screen, Urine Not Detected Not Detect ng/mL [facility] Comment:Methadone cut-off is 300 ng/mL.Positive results are unconfirmed and should not be used fornon-medical purposes. FENTANYL URINE Not Detected Not Detect [facility] Comment:Fentanyl cut-off is 1 ng/mL.Positive results are unconfirmed and should not be used fornon-medical purposes. Oxycodone Urine Screen Not Detected Not Detect ng/mL [facility] Comment:Oxycodone cut-off is 100 ng/mL.Positive results are unconfirmed and should not be used fornon-medical purposes. Buprenorphine Screen Positive(A) Not Detect ng/mL [facility] Comment:Buprenorphine cut-of f is 5 ng/mL.Positive results are unconfirmed and should not be used fornon-medical purposes. Urine (Urine, Random) 07/03/2024 1:30 PM EST 07/03/2024 4:16 PM EST us Jermaine Suárez PMHNP LAB URINE ORDERABLES Final Re sult [facility] [address] [place] [address] [phone] * XR CERVICAL SPINE 3V (06/04/2024 5:58 PM EST) Anatomical Region Laterality Modality Abdomen Radiographic Lupe ging 06/04/2024 5:58 PM EST Narrative 06/04/2024 6:00 PM EST ? [facility] ?[address] ?[place] [address] ?XRay Report ? Signed ? Patient: Ross Navarrete ?MR#: [id number] ?? 613 ? : 1980 ?Acct:[id number] ? Age/Sex: 43 / M ?ADM Date: 06/04/24 ? Loc: HO.ED ? Attending Dr: ? Ordering Physician: Alexey Fabian ?? Date of Service: 06/04/24 ?? Procedure(s): XR cervical spine 3V ?? Accession Number(s): [id number] ? cc: [facility]; Alexey Fabian ? CLINICAL HISTORY: neck [...] DD/ 1758 ? TD/TT: 06/04/24 1758 ? [employer]: ? Procedure Note Roseanne, Image - 06/04/[address] [address] XRay Report Signed Patient: Ross Navarrete LMR#: [id number] 613 : 1980Acct:[id number] Age/Sex: 43 / MADM Date: 06/04/24 Loc: HO.ED Attending Dr: Ordering Physician: Alexey Fabian Date of Service: 06/04/24 Procedure(s): XR cervical spine 3V Accession Number(s): [id number] cc: [facility]; Alexey Fabian CLINICAL HISTORY: neck pain [...] in OV> 06/04/241758 DD/ 57 TD/TT: 06/04/241757 [employer]: us [facility] External Provider IMG XR PROCEDURES Final Result * Glucose, Whole Blood (06/04/2024 4:40 PM EST) Only the most recent of3 resultswithin the time period is included. Glucose, Whole Blood 106 60 - 115 mg/dL [facility] Comment:METER #: [id number] 06/04/2024 4:40 PM EST 06/04/2024 4:43 PM EST Generic External Data Provider LAB BLOOD ORDERAB LES Final Result [facility] [address] [place] [phone] * High Sensitivity Troponin I (06/04/2024 11:28 AM EST) [facility] TROPONIN I HIGH SENSITIVITY <2.7 <3.5 - 35.0 ng/L [facility] Comment:The [place] high sens itivity Troponin-I results should beused in conjunction with other diagnostic information suchas ECG, clinical observations and information, and patientsymptoms to aid in the diagnosis of [place]. 06/04/2024 11:2 8 AM EST 06/04/2024 11:56 AM EST us Generic External Data Provider LAB BLOOD ORDERAB LES Final Result [facility] [address] [place] [address] [phone] * (ABNORMAL) Basic Metabolic Panel (06/04/2024 11:28 AM EST) Only the most recent of2 resultswithin the time period is included. [facility] Sodium 138 135 - 145 mmol/L [facility] Potassium 4.2 3.3 - 5.1 mmol/L [facility] Chloride 105 96 - 108 mmol/L [facility] Carbon Dioxide 28 22 - 29 mmol/L [facility] Anion Gap 9(L) 12 - 20 [facility] Urea Nitrogen (BUN) 17(H) 9 - 16 mg/dL [facility] Creatinine, Serum 0.98 0.5 - 1.4 mg/dL [facility] Creatinine Clr Calc Pharmacy 150.8 [facility] Comment:eGFR (calculated fro m the MDRD study equation) and eCrCl(calculated from the Cockcroft-Gault equation) are based ondifferent parameters and may not yield comparable results.If eCrCl result is absurd, please check patient'sheight/weight. Estimated Glomerular Filt Rate >60 [facility] Comment:Chronic Kidney Disea se: Estimated GFR < 60 mL/min/1.97s0[place] Kidney Disease: Estimated GFR < 15 mL/min/1.73m2 Glucose 130(H) 60 - 115 mg/dL [facility] Calcium 9.3 8.4 - 10.2 mg/dL [facility] 06/04/2024 11:2 8 AM EST 06/04/2024 11:56 AM EST us Generic External Data Provider LAB BLOOD ORDERAB LES Final Result Performing Organization Address [facility] Co de Phone Number [facility] [address] [place] [phone] * POCT urinalysis dipstick manually resulted [...] included. Magnesium 1.8 1.6 - 2.6 mg/dL [facility] 05/17/2024 10:1 4 AM EST 05/17/2024 10:20 AM EST Generic External Data Provider LAB BLOOD ORDERAB LES Final Result Performing Organization Address [facility] de Phone Number [facility] [address] [place] [address] [phone] * (ABNORMAL) Urinalysis, Complete, with Reflex to Culture (05/17/2024 8:36 AM EST) Color Urine Yellow [facility] Appearance Urine Clear [facility] PH 6.5 5.0 - 9.0 [facility] Glucose Urine UA Negative Negative mg/dL [facility] Urine Blood Negative Negative [facility] Specific [place] - Urine 1.020 1.005 - 1.025 [facility] Urine Protein 300 (3+)(A) Neg-Trace mg/dL [facility] Urine Ketones Negative Negative mg/dL [facility] Nitrite Urine Negative Negative [facility] Leukocyte Esterase Urine Negative Negative [facility] RBC Urine 0-2 0 - 2 /HPF [facility] Urine WBC 6-10 0 - 5 /HPF [facility] Urine Squamous Epithelial Cell 0-2 0 - 2 /HPF [facility] Urine Bacteria None Seen None Seen [facility] Hyaline Casts, Urine 0-2 0 - 2 /LPF [facility] 05/17/2024 8:36 AM EST 05/17/2024 8:39 AM EST Narrative [facility] - 05/17/2024 8:56 AM EST [id number], Clean Catch us Generic External Data Provider LAB URINE ORDERAB LES Final Result Performing Organization Address [facility] Co de Phone Number [facility] [address] [place] [address] [phone] * Ethanol (05/16/2024 6:10 PM EST) ETHANOL (MG/DL) IN SER/PLAS <10 mg/dL [facility] Comment:Serum/plasma ethanol results are to be used formedical/treatment purposes only. 05/16/2024 6:10 PM EST 05/16/2024 6:12 PM EST us Generic External Data Provider LAB BLOOD ORDERAB LES Final Result Performing Organization Address [facility]/ZIP Co de Phone Number [facility] [address] [place] [address] [phone] * Hepatic Function Panel (05/16/2024 6:10 PM EST) Bilirubin, Total 0.6 0.0 - 1.0 mg/dL [facility] Bilirubin, Direct 0.2 0.0 - 0.5 mg/dL [facility] Aspartate Amino Transferase 25 5 - 37 U/L [facility] Alanine Aminotransferase 16 0 - 40 U/L [facility] Total Protein 7.8 6.5 - 8.0 g/dL [facility] Albumin Level 3.8 3.5 - 5.0 g/dL [facility] Alkaline Phosphatase 70 39 - 117 U/L [facility] 05/16/2024 6:10 PM EST 05/16/2024 6:12 PM EST us Generic External Data Provider LAB BLOOD ORDERAB LES Final Result [facility] [address] [place] [phone] * Lipid Panel, Standard (04/24/2024 11:23 AM EST) Triglycerides 132 <150 mg/dL [facility] Comment:Desirable Triglyceri de: less than 150 mg/dLBorderline High Triglyceride 150-199 mg/dLHigh Triglyceride: 200-499 mg/dLVery High Triglyceride: greater than or equal to 5OO mg/dL Cholesterol 165 <200 mg/dL [facility] Comment:Desirable Cholestero l: less than 200 mg/dLBorderline High Cholesterol: 200-239 mg/dLHigh Cholesterol: greater than 239 mg/dL LDL Cholesterol Calculated 91 <100 mg/dL [facility] Comment:Desirable LDL: less than 100 mg/dLNear Optimal/Above Optimal LDL: 110- 129 mg/dLBorderline High LDL: 130-159 mg/dLHigh LDL: 160-189 mg/dLVery High LDL: greater than or equal to 190 mg/dL HDL Cholesterol 48 >40 mg/dL [facility] Comment:Desirable HDL: great er than 40 mg/dL Note: This HDL assay may give artificially low results in patients with liver disease. 04/24/2024 11:2 3 AM EST 04/24/2024 11:23 AM EST [facility] External Data Provider LAB BLOOD ORDERAB LES Final Result Performing Organization Address City/[facility]/ZIP Co de Phone Number [facility] [address] [place] [phone] * HIV-1/2 Antigen and Antibodies, Fourth Generation, with Reflexes (12/13/2023 11:48 AM EDT) Pathologist [facility] HIV AB/AG Nonreactive Nonreactive [facility] Comment:HIV-1 p24 Ag and/or HIV-1/HIV-2 Ab not detected.A test result that is nonreactive does not exclude thepossibility of exposure to or infection with HIV-1 and/orHIV-2. Nonreactive results in this assay for individualswith prior exposure to HIV-1 and/or HIV-2 may be due toantigen and antibody levels that are below the limit ofdetection of this assay.The [employer] HIV Ag/Ab Combo assay result andsupplemental assay results should be interpreted inconjunction with the patient's clinical presentation,history and other laboratory results. If the results areinconsistent with clinical evidence, additional testing issuggested to confirm the result. Blood Venous blood specimen / Unknown 12/13/2023 11:48 AM EDT 12/13/2023 12:51 PM EDT us [facility] LAB BLOOD ORDERABLES Final Resul t Performing Organization Address City/[facility]/ZIP Co de Phone Number [facility] [address] [place] [phone] from Last 3 Months or Most Recently Relevant to Health Maintenance Insurance [facility] C3 HSN FULL DENTAL-[facility] MEDICAID STAND ADULT Care Teams Broom Machine Operator Relationship Specialty Start Date End Date Sofia Mitchell ANP [address] [place] [address] PCP - General Family Medicine 01/18/22
--- OUTSIDE RECORDS SUMMARY | 2024-08-12 15:42 | XMS_ITS | Encounter Summary ---
Author Organization [employer] Address [address] [facility] [address]t [place] [address] Care Team Providers Care Reactor Operator Name Role Phone Naheed Zaman JOSIAH Primary Care Provider [phone] Reason for Visit * Reason Onset Date Comments Med Refill 07/18/2024 Encounter Details Date Type Department Care Team (Late st Contact Info) Description 07/18/2024 Refill [facility] [address] [place] [address] Tristen Chen, APRIL [address] [place] [address] Uncomplicated opioid dependence (CMS/HCC) Social History Tobacco [...] 3:00 PM EDT Office Visit [facility] [address] [place] [phone] Rut Branham MD [address] [place] [phone] 10/08/2024 1:00 PM EDT Office Visit [address] [address] Naheed Zaman ANP [address] [place] [phone] documented as of this encounter Visit Diagnoses Diagnosis Uncomplicated opioid dependence (CMS/HCC) documented in this encounter Additional Health Concerns Assessment Noted Time PHQ-9 Depression Total Score: 25 024 8:12 AM EDT documented as of this encounter Care Teams Reactor Operator Relationship Specialty Start Date End Date Naheed Zaman ANP [address] [place] [phone] PCP - General Family Medicine 01/18/22 documented as of this encounter
--- OUTSIDE RECORDS SUMMARY | 2024-08-12 15:42 | XMS_ITS | Clinical Summary ---
Author Organization [facility] Address [address] [place] [address] Care Team Providers Care Paper Mill Supervisor Name Role Phone Unavailable Primary Care Provider [...] recurrent major depressive disorder, with psychotic features ([facility]) 06/10/2024 Assessment & Plan (06/18/2024 11:18 AM EST): Patient refused to be seen, [place] boarder steam was notified. Assessment & Plan (06/10/2024 5:36 [...] connected on video call until arrival of [place] Police with recommendation to section patient to hospital Encounters Date Type Department Care Team Description 05/23/2024 11:30 AM EST Behavioral Health Visit [facility] [address] [place] [phone] Leslie Garzon APRN Severe episode of recurrent major depressive disorder, with psychotic features (HCC-CMS) (Primary Dx) 05/16/2024 3:00 PM EST Behavioral Health Visit [facility] [address] [place] [phone] Leslie Garzon APRN Severe episode of recurrent [...] - 19 + 3-dose series) 11/14/2023 10/17/2023 Kvu-[id number] ( season) 2024 021, 12/10/2020 Imm-Influenza (#1) 2024 02/27/2012, 01/27/2011 Alcohol and Drug Screen 05/29/2024 Diabetes Screening 04/24/2025 04/24/2024, 0 10/11/2023, 12/14/2021, Additional history exists Lipid Screening 04/24/2029 04/24/2024, 05/29, 02/27/2020 Imm-DTaP/Tdap/Td (3 - Td or Tdap) 10/16/2033 024, 03/15/2011 Hepatitis C Screening Completed 10/11/2023 HIV Screening Completed 12/13/2023, 11/26, 12/16/2021 Insurance [facility] [place] MEDICAID
--- OUTSIDE RECORDS SUMMARY | 2024-08-12 15:42 | XMS_ITS | Encounter Summary ---
Author Organization [employer] Address [address] [facility] [address] [place] [address] Care Team Providers Care Nipping Machine Operator Name Role Phone Naheed Zaman Primary Care Provider [phone] Reason for Visit * Reason Onset Date Comments callback requested 04/23/2024 Encounter Details Date Type Department Care Team ([facility] st Contact Info) Description 04/23/[address] [facility] [address] [place] [address] Naheed Zaman ANP [address] [place] [address] callback requested Social History Tobacco Use Types [...] returning call to Madie Olson Callback number [phone] documented in this encounter Plan of Treatment Upcoming Encounters Date Type Department Care Team (Late st Contact Info) Description 09/19/2024 3:00 PM EDT Office Visit [facility] [address] [place] [phone] Rut Branham MD [address] [place] [phone] 10/08/2024 1:00 PM EDT Office Visit [facility] [address] [place] [phone] Naheed Zaman ANP [address] [place] [address] documented as of this encounter Visit Diagnoses Not on filedocumented in this encounter Additional Health Concerns Assessment Noted Time PHQ-9 Depression Total Score: 25 024 8:12 AM EDT documented as of this encounter Care Teams Nipping Machine Operator Relationship Specialty Start Date End Date Naheed Zaman ANP [address] [place] [address] PCP - General Family Medicine 01/18/22 documented as of this encounter
--- OUTSIDE RECORDS SUMMARY | 2024-08-12 15:42 | XMS_ITS | Encounter Summary ---
Author Organization [email or web address] Address [address] [facility] [address] [place] [address] Care Team Providers Care Director Of Corporate Sponsorships Name Role Phone Naheed Zaman JOSIAH Primary Care Provider [phone] Encounter Details Date Type Department Care Team [...] 3:00 PM EDT Office Visit [facility] [address] [place] [address] Rut Branham MD [address] [place] [address] 10/08/2024 1:00 PM EDT Office Visit [facility] [address] [place] [address] Naheed Zaman ANP [address] [place] [address] documented as of this encounter Visit Diagnoses Not on filedocumented in this encounter Additional Health Concerns Assessment Noted Time PHQ-9 Depression Total Score: 25 024 8:12 AM EDT documented as of this encounter Care Teams Director Of Corporate Sponsorships Relationship Specialty Start Date End Date Naheed Zaman ANP [address] [place] [phone] PCP - General Family Medicine 01/18/22 documented as of this encounter
== END 2024-08-12 14:00 | disposition home or self-care (01) ==
LOC: HO.PMC 13:30
PROVIDERS: PCP Nurse Practitioner Primary Care; Visit Provider Anesthesiology
DX: M19.012 Primary osteoarthritis, left shoulder (principal); E66.01 Morbid (severe) obesity due to excess calories; M25.512 Pain in left shoulder
CPT/HCPCS: 99213

== ENCOUNTER → 2024-08-12 13:29 | Outpatient (BNVA) | payer MEDICAID, SELFPAY | PROVIDERS: PCP Nurse Practitioner Primary Care; Visit Provider Anesthesiology | DX: M19.012 Primary osteoarthritis, left shoulder (principal); E66.01 Morbid (severe) obesity due to excess calories; Z68.44 Body mass index [BMI] 60.0-69.9, adult | CPT/HCPCS: 99212 ==

== ENCOUNTER 2024-08-14 06:29 | Outpatient (REF) | payer MEDICAID, SELFPAY ==
--- NOTE | ~2024-08-14 | XR_ITS ---
EXAMINATION: XR SHOULDER 2 OR MORE VIEWS LEFT HISTORY: M25.512 - Pain in left shoulder COMPARISON: Comparison is made with the prior examination dated 01/04/2022. FINDINGS: Three views of the left shoulder are submitted. Osseous mineralization is normal. There is no fracture or dislocation. Again seen is severe osteoarthritis of the glenohumeral joint with joint space narrowing and osteophyte formation. The AC joint is maintained. The soft tissues are unremarkable. XR/XR shoulder LT min 2V IMPRESSION: Severe osteoarthritis of the glenohumeral joint. Electronically signed by: Gurinder Valdez MD 08/14/2024 12:56 PM EDT
== END 2024-08-14 06:30 | disposition home or self-care (01) ==
LOC: HO.HOSX 06:29
PROVIDERS: Visit Provider Physician Assistant
DX: M25.512 Pain in left shoulder (principal); M25.312 Other instability, left shoulder; M19.012 Primary osteoarthritis, left shoulder; S83.241A Other tear of medial meniscus, current injury, right knee, initial encounter
CPT/HCPCS: 73030; 99212

== ENCOUNTER 2024-08-14 09:11 | Outpatient (AMB) | payer MEDICAID, SELFPAY ==
--- NOTE | 2024-08-14 09:31 | A.OFFVIS_ITS ---
Vital Signs 08/14/24 09:33 Height 5 ft 5 in Weight 389 lb BMI 64.7 Intake Visit Reasons: New prob- Left shoulder pain Intake Note: Ross is a 43 year old right hand dominant male who presents today for a new problem visit evaluation for left shoulder pain. Patient states that when was a child while playing basketball, his shoulders dislocated a few times and a few times as an adult. States currently his left shoulder is worse. He is limited ROM and has severe pain when moving his arms. This is affecting him with his daily activities and hygiene. States this right shoulder dislocated last night while sleeping and woke up with mild pain. His has not dislocated in a while however he still has severe pain. Hx of left shoulder injection about 5 months ago with pain management. States injection helped alot. Waiter/Waitress Economy Class Required: Yes Waiter/Waitress Economy Class Services: Waiter/Waitress Economy Class Present Waiter/Waitress Economy Class Name: NOA Wild LM Allergies seafood Allergy (Severe, Verified 08/14/24 09:40) Swelling Medication List - Last Reconciled 08/14/24 by Jerod Nichols PA-C acetaminophen (Acetaminophen Extra Strength) 500 mg PO Q6H PRN adalimumab (Humira(CF) Pen) 40 mg (0.4 mL) subcut Q2W ammonium lactate 12% topical ammonium lactate 12% appl topical betamethasone valerate 0.1% appl topical buprenorphine-naloxone 8-2 mg (Suboxone) 1 film sublingual TID cholecalciferol (vitamin D3) 1,250 mcg PO QWEEK clotrimazole 1% appl topical BID flash glucose sensor (FreeStyle Casey 2 Sensor kit) As directed fluoxetine 40 mg PO DAILY gabapentin 100 mg PO BEDTIME insulin glargine (Lantus Solostar U-100 Insulin) 55 units subcut BEDTIME insulin lispro (Humalog KwikPen (U-100) Insulin) 35 units subcut TID lidocaine 5% 1 patch topical DAILY PRN lisinopril 20 mg See Protocol PO DAILY meloxicam 15 mg PO DAILY 30 days sodium,potassium,mag sulfates 17.5-3.13-1.6 gram (Suprep Bowel Prep Kit) DILUTE as per instructions given zinc oxide 40% (Diaper Rash) topical HPI HPI New prob- Left shoulder pain: Details: 43-year-old gentleman presents to the office today for left shoulder pain which has been ongoing for several years. He has been seen by pain management who has been providing him with intra-articular injections which have been successful however his most recent injection was not as successful. He states he has had the shoulder dislocate and had to go to the emergency department for reduction. He states he is at the point where he can maneuver the shoulder and reduce it himself. This has been going on since he was a child. He also experiences dislocations of the right shoulder. He states the left shoulder has limited mobility is unable to reach the top of his head or lift any objects. He has not had physical therapy of the left shoulder. [facility] Medical History Seronegative spondyloarthropathy Seronegative spondylitis Vitamin D deficiency Elevated C-reactive protein (CRP) Fibromyalgia Polyarthralgia Narcotic dependence Thrombocytopenia Carpal tunnel syndrome Sleep apnea Pre-op evaluation Hx of migraines BETSY on CPAP Pre-op evaluation HTN (hypertension), benign Insulin dependent type 1 diabetes mellitus Morbid obesity Shoulder dislocation Diabetes Surgical History Hx of colonoscopy History of esophagogastroduodenoscopy (EGD) Hx of hernia repair Hx of appendectomy Family History Mother No problems noted. Brother No problems noted. Daughter No problems noted. Daughter No problems noted. Daughter No problems noted. Son No problems noted. Son No problems noted. 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 He has difficulty reaching top of his head. Unable to externally rotate beyond 10 degrees. Neurovascularly intact. Results Reviewed Results Reviewed: X-rays of the left shoulder obtained in the office today show severe glenohumeral joint arthritis Assessment & Plan Assessment & Plan (1) Osteoarthritis of left glenohumeral joint: Code(s): M19.012 - Primary osteoarthritis, left shoulder Category: Medical (2) Other instability, left shoulder: Code(s): M25.312 - Other instability, left shoulder Category: Medical Plan I explained to the patient the extent of his condition which includes not only instability but also glenohumeral joint arthritis. I explained he should continue to see pain management for management of his pain as they had recommended continued injections versus neuromodulator. I did place an order for physical therapy to work on stabilization of the shoulder. I briefly explained the benefits of total shoulder arthroplasty as this would be the procedure to improve his functional abilities however given his age and body habitus I do not feel he is appropriate for surgery at this time. I explained with his body habitus this could also cause an increased risk of fracture or dislocation. He would like to research this further. He will begin physical therapy and continue to see pain management. If he fails continued treatment with pain management he is more than welcome to see us back to discuss further options. Orders: Orders PT Evaluation and Treatment Today M19.012 - Primary osteoarthritis, left shoulder, M25.312 - Other instability, left shoulder XR shoulder LT min 2V Today M25.512 - Pain in left shoulder Coding Level of Care Code Est Pt Level 4 (86807) Complex EM visit Add On G2211 Diagnoses Osteoarthritis of left glenohumeral joint M19.012 Other instability, left shoulder M25.312
[2024-08-14 09:33] VITALS: BMI 64.7
== END 2024-08-14 11:06 | disposition home or self-care (01) ==
LOC: HO.HOS 09:12
PROVIDERS: PCP Nurse Practitioner Primary Care; Visit Provider Physician Assistant
DX: M19.012 Primary osteoarthritis, left shoulder (principal); M25.312 Other instability, left shoulder; S83.241A Other tear of medial meniscus, current injury, right knee, initial encounter
CPT/HCPCS: 99214

== ENCOUNTER → 2024-08-14 09:23 | Outpatient (BNV) | payer MEDICAID, SELFPAY | PROVIDERS: Visit Provider Radiology Diagnostic Radiology | DX: M19.012 Primary osteoarthritis, left shoulder (principal) | CPT/HCPCS: 73030 ==

== ENCOUNTER 2024-08-28 08:33 | Outpatient (AMB) | payer MEDICAID, SELFPAY ==
[2024-08-28 08:47] VITALS: BP 158/84; PULSE 62; BMI 64.9
--- NOTE | 2024-08-28 08:47 | A.OFFVIS_ITS ---
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/Naheed Zaman/ chest pain (urgent) Intake Note: New patient c/o stabbing chest pain all the time for about 2 years Construction Equipment Technician Required: Yes Construction Equipment Technician Services: Construction Equipment Technician Present Construction Equipment Technician Name: Dhara Allergies seafood Allergy (Severe, Verified 08/14/24 09:40) Swelling Medication List - Last Reconciled 08/28/24 by Real Gomez MD acetaminophen (Acetaminophen Extra Strength) 500 mg PO Q6H PRN adalimumab (Humira(CF) Pen) 40 mg (0.4 mL) subcut Q2W ammonium lactate 12% topical ammonium lactate 12% appl topical atorvastatin 10 mg PO BEDTIME betamethasone valerate 0.1% appl topical buprenorphine-naloxone 8-2 mg (Suboxone) 1 film sublingual TID cholecalciferol (vitamin D3) 1,250 mcg PO QWEEK clotrimazole 1% appl topical BID famotidine 20 mg PO BEDTIME flash glucose sensor (FreeStyle Casey 2 Sensor kit) As directed fluoxetine 60 mg PO DAILY gabapentin 100 mg PO BEDTIME insulin glargine (Lantus Solostar U-100 Insulin) 55 units subcut BEDTIME insulin lispro (Humalog KwikPen (U-100) Insulin) 35 units subcut TID lidocaine 5% 1 patch topical DAILY PRN lisinopril 40 mg PO DAILY meloxicam 15 mg PO DAILY 30 days semaglutide (Ozempic) mg subcut sodium,potassium,mag sulfates 17.5-3.13-1.6 gram (Suprep Bowel Prep Kit) DILUTE as per instructions given zinc oxide 40% (Diaper Rash) topical HPI Comments Details: Ross was referred here to the office for precordial chest pain. History was obtained with help of electrical design technician which was not very effective. Patient was a 43-year-old male with multiple significant risk factors including longstanding hypertension, longstanding diabetes with a musculoskeletal issues as well as major depression. Patient has been having for a year or more regular chest pain. He describes 2 different kind of chest pain 1 that feels like been picking in his precordial area and 1 feels like a sharp pain. The pin pricking chest pain then is becoming into tingling chest pain. Patient says the pain lasts for about a minute in his dissipates. There was no clear triggering. He is not related to exertion only. Can happen at rest. Does have exertional shortness of breath. Denies any orthopnea, PND, leg edema. Denies any prolonged palpitation irregular heartbeat. [facility] Medical History Seronegative spondyloarthropathy Seronegative spondylitis Vitamin D deficiency Elevated C-reactive protein (CRP) Fibromyalgia Polyarthralgia Narcotic dependence Thrombocytopenia Carpal tunnel syndrome Sleep apnea Pre-op evaluation Hx of migraines BETSY on CPAP Pre-op evaluation HTN (hypertension), benign Insulin dependent type 1 diabetes mellitus Morbid obesity Shoulder dislocation Diabetes Surgical History Hx of colonoscopy History of esophagogastroduodenoscopy (EGD) Hx of hernia repair Hx of appendectomy Family History Mother No problems noted. Brother No problems noted. Daughter No problems noted. Daughter No problems noted. Daughter No problems noted. Son No problems noted. Son No problems noted. 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 Review of Systems Const Denies chills, Denies fatigue, Denies fever(s), Denies frequent falls, Denies weakness, Denies weight gain and Denies weight loss Eyes Denies loss of vision ENT Denies dizziness Card Reports chest pain, Denies leg edema, Denies lightheadedness, Denies dyspnea, Denies dyspnea on exertion, Denies orthopnea and Denies other (loss of consciousness) Resp Denies cough, Denies dyspnea, Denies dyspnea on exertion and Denies wheezing GI Denies hematochezia and Denies change in stool character Denies dysuria and Denies urinary frequency Musc Denies abnormal gait, Denies muscle weakness, Denies numbness, Denies radiating pain into limb and Denies tingling Skin/Breast Denies nail changes and Denies rash Neuro Denies abnormal gait, Denies dizziness, Denies frequent falls, Denies loss of vision, Denies memory loss, Denies numbness, Denies tingling and Denies weakness Psych Denies depression and Denies memory loss Endo Denies fatigue Dennis/Lymph Reports easy bruising and Reports other (anemia) Aller/Immun Denies wheezing Physical Exam Vital Signs: Last Vital Signs Pulse 62 08/28/24 08:47 BP 158/84 H 08/28/24 08:47 BMI result Body Mass Index 64.9 Const General: cooperative, comfortable, no acute distress, alert and awake Nutritional Appearance: obese morbidly obese Orientation/consciousness: patient oriented x3 Limitations: ambulation with cane HEENT Head: Yes normocephalic and Yes atraumatic Neck Neck: Yes trachea midline, Yes supple and Yes no JVD Resp Effort & Inspection: normal respiratory effort Auscultation: clear to auscultation bilaterally Cardio Jugular venous distension: no JVD Rate: regular rate Rhythm: regular rhythm Heart sounds: S1 normal heart sound present, S2 normal heart sound present, no click, no gallops and Murmur heart sound present systolic early GI Auscultation: normal bowel sounds Skin General skin exam: no rashes or lesions noted Neuro General: patient oriented x3 and no focal motor deficits Extrem General: Yes no clubbing, cyanosis or edema Office Procedures EKG Details: EKG shows normal sinus rhythm with normal EKG [id number], Complete Assessment & Plan Assessment & Plan (1) Chest pain: Code(s): R07.9 - Chest pain, unspecified Category: Medical Plan: Patient with atypical chest pain but with limited exercise capacity with multiple risk factors for coronary artery disease. Myocardial ischemia is less likely. Would suggest a vasodilating myocardial perfusion imaging to rule out myocardial ischemia. This is already scheduled through your office. Will make sure that this gets done. Patient also requires an echocardiogram to evaluate LV systolic and diastolic function to evaluate for hypertensive heart disease as well as pulmonary hypertension and to evaluate for aortic valve disease given the murmur. Further treatment based on the findings. Continue aggressive vascular risk factor modification. Gets going to be his weight. This was discussed with him. Blood pressure is currently well optimized. Diabetes in his care with goal hemoglobin A1c less than 7%. Goal LDL less than 70 mg/dL. Will follow up in 6 weeks after the testing is completed. Thank you for allowing me to partake in his care Orders: Orders CA echo transthorac w con Today R07.9 - Chest pain, unspecified Coding Level of Care Code New Pt Level 4 (21280) Complex EM visit Add On G2211 Diagnoses Chest pain R07.9 CPT Codes EKG - CPT: 99840-[id number], Complete ([id number])
--- OUTSIDE RECORDS SUMMARY | 2024-08-28 08:54 | XMS_ITS | Encounter Summary ---
Author Organization [facility] Address [address] [facility] 7t [place] [address] Care Team Providers Care Cnc Lathe Machinist Name Role Phone Naheed Zaman Primary Care Provider [phone] Reason for Visit * Reason Comments Med Refill Encounter Details Date Type Department Care Team ([facility] st Contact Info) Description 08/18/2023 Refill [facility] MEDICINE [address] [place], [place] [phone] Naheed Zaman ANP [address] [place] [address] Chronic low back pain without sciatica, unspecified [...] Description 09/19/2024 3:00 PM EDT Office Visit [facility] MEDICINE [address] [place] [address] Rut Branham MD [address] [place] [address] 10/08/2024 1:00 PM EDT Office Visit [facility] MEDICINE [address] [place] [address] Naheed Zaman ANP [address] [place] [address] documented as of this encounter Visit Diagnoses Diagnosis Chronic low back pain without sciatica, unspecified back pain laterality documented in this encounter Additional Health Concerns Assessment Noted Time PHQ-9 Depression Total Score: 6 11/19/19 23 3:29 PM EDT documented as of this encounter Care Teams Cnc Lathe Machinist Relationship Specialty Start Date End Date Naheed Zaman ANP [address] [place] [address] PCP - General Family Medicine 01/18/22 documented as of this encounter
--- OUTSIDE RECORDS SUMMARY | 2024-08-28 08:54 | XMS_ITS | Clinical Summary ---
Author Organization [address] [facility] Address 175 [place] [address] Phone Care Team Providers Care Warper Fixer Name Role Phone Naheed Zaman NP Primary Care Provider [phone] Allergies Active Allergy Reactions Criticality Noted Date [...] myelopathy or radiculopathy 04/26/2017 Overview (04/17/2024): [place] [facility] [place] BETSY (obstructive sleep apnea) 04/26/2017 Overview (04/17/2024): [place]omn[place] 08[place]05[place]2009, [facility] [place] cpap 14 cm H2O 10/23/2017 Home Sleep Study insufficient data. 08/2018 - Pulm ordered split night study. Diabetes mellitus type 2 with neurological manif estations 04/26/2017 CTS (carpal tunnel syndrome) 04/26/2017 Encounters Date Type Department Care Team Description 06/03/2024 2:30 PM EST Consult Orthopedic [facility] [place] [address] [phone] Bg Yeager, NASREEN Ingrowing nail [...] DX:History of acute post-streptococcal glomerulonephritis; COMMENT: [place]ized [facility] [place] anasarca/ KUNAL 2010, streptolysin titer 1060, kidney bx, Followed in past by Dr Zapata, NSAIDS not recommended HTN (hypertension) 05/10/2017 DX:HTN (hyper tension) Morbid obesity with BMI of 6 0.0-69.9, adult (CMS/HCC) 04/26/2017 DX:Morbid obesity with BMI o f 60.0-69.9, adult ([facility]) BETSY (obstructive sleep apnea) 04/26/2017 DX :BETSY (obstructive sleep apnea); COMMENT: [place]ysomnography 08/05/2009, [facility] [place] cpap 14 cm H2O Pulmonary hypertension (CMS/HCC) 05/10/2017 DX:Pulmonary hypertension (HCC); COMMENT: Mild, ECHO 10/21/10 [facility] [place], EF 65-70% Otherwise normal [...] egion without myelopathy or radiculopathy; COMMENT: [place] [facility] [place]ology Family History Medical [...] PM EDT Office Visit [facility] [place] [address] [phone] Bg Yeager, DPM [address] [address] Health Maintenance Due Date Last Done Comments Diabetes: Annual Foot Exam 11/14/1991 Diabetes: Annual Retina Eye Exam 11/14/1991 Pneumococcal Vaccine: Pediatrics (0 to 5 Years) [...] Test (02/27/2020) Annual BMP Blood Test Abstracted [facility] Provider MD HEALTH MAINTENANCE Final Result * [...] Maintenance Insurance MEDICAID - [place] Care Teams Warper Fixer Relationship Specialty Start Date End Date Naheed Zaman NP [address] [place] [phone] PCP - General 02/21/24
--- OUTSIDE RECORDS SUMMARY | 2024-08-28 08:54 | XMS_ITS | Encounter Summary ---
Author Organization [facility] Address [address] [place] [address] 7 [place] [address] Care Team Providers Care Administrative Resident Name Role Phone Naheed Zaman Primary Care Provider [phone] Encounter Details Date Type Department Care Team [...] Visit [facility] MEDICINE [address] [place] [address] Rut Branham MD 230 [place] [address] 10/08/2024 1:00 PM EDT Office Visit [facility] MEDICINE [address] [place] [address] Naheed Zaman ANP 230 [place] [address] documented as of this encounter Visit Diagnoses Not on filedocumented in this encounter Care Teams Administrative Resident Relationship Specialty Start Date End Date Naheed Zaman ANP [address] [place] [address] PCP - General Family Medicine 01/18/22 documented as of this encounter
--- OUTSIDE RECORDS SUMMARY | 2024-08-28 08:54 | XMS_ITS | Encounter Summary ---
Author Organization [email or web address] [facility] Address [address] [place] [address] [place] [address] Care Team Providers Care Writer Editor Name Role Phone Naheed Zaman Primary Care Provider Reason for Visit * Reason Comments Med Refill Encounter Details Date Type Department Care Team (Late st Contact Info) Description 02/02/2023 Refill [facility] 230 [place] [address] Rut Branham MD 230 [place] [address] Uncomplicated opioid dependence (CMS/HCC) Social History Tobacco [...] Description 09/19/2024 3:00 PM EDT Office Visit [facility] MEDICINE 230 [place] [address] Rut Branham MD 230 [place] [address] 10/08/2024 1:00 PM EDT Office Visit [facility]INE 230 [place], [place] [phone] Naheed Zaman ANP 230 [place], [place] [phone] documented as of this encounter Visit Diagnoses Diagnosis Uncomplicated opioid dependence (CMS/HCC) documented in this encounter Additional Health Concerns Assessment Noted Time PHQ-9 Depression Total Score: 6 11/19/19 23 3:29 PM EDT documented as of this encounter Care Teams Writer Editor Relationship Specialty Start Date End Date Naheed Zaman ANP [address] [place] [address] PCP - General Family Medicine 01/18/22 documented as of this encounter
--- OUTSIDE RECORDS SUMMARY | 2024-08-28 08:54 | XMS_ITS | Encounter Summary ---
Author Organization [employer] Address 75 [facility] 7t [place] [address] Care Team Providers Care Retail Assistant Manager Name Role Phone Naheed Zaman JOSIAH Primary Care Provider [phone] Reason for Visit * Reason Comments Med Refill Encounter Details Date Type Department Care Team ([facility] st Contact Info) Description 09/14/2023 Refill [facility] MEDICINE 230 [place], [place] [phone] Dayna Cardenas MD 230 [place], [place] [phone] Uncomplicated opioid dependence (CMS/HCC) Social History Tobacco [...] 09/19/2024 3:00 PM EDT Office Visit [facility] MEDICINE [address] [place] [address] Rut Branham MD [address] [place] [address] 10/08/2024 1:00 PM EDT Office Visit [facility] MEDICINE [address] [place] [address] Naheed Zaman ANP [address] [place] [address] documented as of this encounter Visit Diagnoses Diagnosis Uncomplicated opioid dependence (CMS/HCC) documented in this encounter Additional Health Concerns Assessment Noted Time PHQ-9 Depression Total Score: 6 11/19/19 23 3:29 PM EDT documented as of this encounter Care Teams Retail Assistant Manager Relationship Specialty Start Date End Date Naheed Zaman ANP [address] [place] [phone] PCP - General Family Medicine 01/18/22 documented as of this encounter
--- OUTSIDE RECORDS SUMMARY | 2024-08-28 08:54 | XMS_ITS | Clinical Summary ---
Author Organization [facility] Address [address] [place] [address] Care Team Providers Care Batch Heat Treat Operator Name Role Phone Unavailable Primary Care [...] recurrent major depressive disorder, with psychotic features ([facility]) 06/10/2024 Assessment & Plan (06/18/2024 11:18 AM EST): Patient refused to be seen, [place] bridge/structure inspection team leader was notified. Assessment & Plan [...] connected on video call until arrival of [place] Police with recommendation to section patient to hospital Family History Medical History Relation Name Comments [...] Health Maintenance Due Date Last Done Comments Anxiety Screening 1981 Depression Monitoring 1981 Tobacco Cessation Counseling (#1) 1981 Hypertension Screening (#1) 11/14/1999 Imm-Pneumococcal (1 of 2 - PCV) 2000 Imm-Hepatitis B (2 of 3 - 19 + 3-dose series) 11/14/2023 10/17/2023 Pln-[id number] (2023- season) 01/28/202412/29/2 021, 12/10/2020 Imm-Influenza (#1) 2024 02/27/2012, 01/27/2011 Alcohol and Drug Screen 05/29/2024 Diabetes Screening 05/16/2025 05/16/2024, 1 06/24/2023, 04/24/2024, Additional history exists Lipid Screening 04/24/2029 04/24/2024, 05/29, 02/27/2020 Imm-DTaP/Tdap/Td (3 - Td or Tdap) 10/16/2033 024, 03/15/2011 Hepatitis C Screening Completed 10/11/2023 HIV Screening Completed 12/13/2023, 11/26, 12/16/2021 Insurance [facility] [place] MEDICAID
--- OUTSIDE RECORDS SUMMARY | 2024-08-28 08:55 | XMS_ITS | Encounter Summary ---
Author Organization [employer] Address [address] [facility] 7t [place] [address] Care Team Providers Care Industrial Management Teacher Name Role Phone Naheed Zaman Primary Care Provider [phone] Encounter Details Date Type Department Care Team (Late Contact Info) Description 07/28/2022 Abstract [facility] ADULT DENTAL [address] [place] [address] Zay Schmidt DDS [address] [place] [address] Social History Tobacco Use Types Packs/Day Years [...] 3:00 PM EDT Office Visit [facility] MEDICINE [address] [place] [address] Rut Branham MD 230 [place] [address] 10/08/2024 1:00 PM EDT Office Visit [facility] [address] [facility] [place] [place] [phone] Naheed Zaman ANP 230 [place] [address] documented as of this encounter Visit Diagnoses Not on filedocumented in this encounter Care Teams Industrial Management Teacher Relationship Specialty Start Date End Date Naheed Zaman ANP [facility] [place] [address] PCP - General Family Medicine 01/18/22 documented as of this encounter
--- OUTSIDE RECORDS SUMMARY | 2024-08-28 08:55 | XMS_ITS | Encounter Summary ---
Author Organization [employer] Address [address] [facility] 7t [place] [address] Care Team Providers Care Garment Steamer Name Role Phone Junie Naheed RAHMAN Primary Care Provider [phone] Reason for Visit * Reason Onset Date Comments DME Question 08/23/2024 Encounter Details Date Type Department Care Team ([facility] st Contact Info) Description 08/23/[address] [facility] MEDICINE [address] [place] [address] Arlette Hill RN 230 [place] [address] DME Question Social History Tobacco Use Types Packs/Day Years [...] Telephone Encounter - Arlette Hill RN - 08/23/2024 10:55 AM EDT [facility] stating his CPAP is going to be replaced. He is very concerned that they are going to leave him without a CPAP and he can't breathe without it. Informed that they should give him the replacement/upgrade when they take his old one. Pt has CPAP through [facility]. Advised to call [facility] (provided him with their phone number) to verify this information is correct and for piece of mind. Pt verbalized understanding and denied having any further questions or concerns at this time. documented in this encounter Plan of Treatment Upcoming Encounters Date Type Department Care Team (Late st Contact Info) Description 09/19/2024 3:00 PM EDT Office Visit [facility] MEDICINE [address] [place] [phone] Rut Branham MD 230 [place] [address] 10/08/2024 1:00 PM EDT Office Visit [facility] MEDICINE [address] [place] [address] Naheed Zaman ANP [address] [place] [address] documented as of this encounter Visit Diagnoses Not on filedocumented in this encounter Additional Health Concerns Assessment Noted Time PHQ-9 Depression Total Score: 25 024 8:12 AM EDT documented as of this encounter Care Teams Garment Steamer Relationship Specialty Start Date End Date Naheed Zaman ANP 230 [place] [address] PCP - General Family Medicine 01/18/22 documented as of this encounter
--- OUTSIDE RECORDS SUMMARY | 2024-08-28 08:55 | XMS_ITS | Encounter Summary ---
Author Organization [employer] Address [address] [facility] 7t [place] [address] Care Team Providers Care Projector Operator Name Role Phone Naheed Zaman Primary Care Provider [phone] Reason for Visit * Reason Onset Date Comments callback requested 04/23/2024 Encounter Details Date Type Department Care Team ([facility] st Contact Info) Description 04/23/[address] [facility] MEDICINE [address] [place] [address] Naheed Zaman ANP 230 [place] [address] callback requested Social History Tobacco Use Types [...] returning call to Madie Olson Callback number [phone] documented in this encounter Plan of Treatment Upcoming Encounters Date Type Department Care Team (Late st Contact Info) Description 09/19/2024 3:00 PM EDT Office Visit [facility] MEDICINE [address] [place] [address] Rut Branham MD [address] [place] [address] 10/08/2024 1:00 PM EDT Office Visit [facility] MEDICINE [address] [place] [address] Naheed Zaman ANP 230 [place] [address] documented as of this encounter Visit Diagnoses Not on filedocumented in this encounter Additional Health Concerns Assessment Noted Time PHQ-9 Depression Total Score: 25 024 8:12 AM EDT documented as of this encounter Care Teams Projector Operator Relationship Specialty Start Date End Date Naheed Zaman ANP 230 [place] [address] PCP - General Family Medicine 01/18/22 documented as of this encounter
--- OUTSIDE RECORDS SUMMARY | 2024-08-28 08:55 | XMS_ITS | Clinical Summary ---
Author Organization [employer] Address [address] [facility] [address] [place] [address] Care Team Providers Care High Man Name Role Phone Sofia Mitchell JOSIAH Primary Care Provider [phone] Allergies Active Allergy Reactions Criticality Noted Date Comments Shellfish Allergy 05/02/2022 Medications * This document contains information received from the source organization and may not represent a complete record from that organization. Alcohol Swabs (Alcohol Prep) 70 % pads USE FOUR TIMES DAILY WITH INSULIN Active Blood Glucose Monitoring Suppl (FreeStyle [place] Lite) w/Device kit TEST BLOOD SUGAR FOUR TIMES DAILY Active FREESTYLE LITE test strip TEST BLOOD SUGAR FOUR TIMES DAILY Active glucose blood (FREESTYLE LITE) test strip check fingerstick 4 times a day Active Sure Comfort Pen [place] 31G X 5 MM misc USE FOUR [...] Active beta carotene (vitamin A) 3 MG (20880 UT) capsule TAKE 2 CAPSULES BY MOUTH [...] Active Blood Pressure Monitor kitIndications:P ulmonary hypertension ([facility]) 1 kit in the morning. 1 kit 024 Active metoclopramide (Reglan) 10 MG tablet 1 tablet as needed every 6 hrs for nausea/vomiting 40 tablet 024 Active atorvastatin (Lipitor) 10 MG tabletIndication s:Type 2 diabetes mellitus with hyperlipidemia ([facility]/HCC) ([facility]) Take 1 tablet (10 mg) [...] use. 473 mL 024 Active Continuous Glucose Manager Web Application (FreeStyle Casey 2 Aurora) deviceIndication s:Diabetes mellitus with albuminuria (CMS/HCC) ([facility]) Scan sensor every 8 hours 1 each 024 Active Continuous Glucose Sensor (FreeStyle Casey 2 Sensor) miscIndications: Diabetes mellitus with albuminuria (CMS/HCC) ([facility]) Apply 1 sensor every 14 days 2 each 024 Active glucose blood (FreeStyle Precision Lefty Test) test stripIndications :Diabetes mellitus with albuminuria (CMS/HCC) ([facility]) Use to test blood sugar 3 times daily 100 each 12 024 2024 Active glucose (BD Glucose) 5 g chewable tabletIndication s:Type 2 diabetes mellitus with hyperlipidemia ([facility]/HCC) ([facility]) Chew 3 tablets (15 g) [...] cations:Type 2 diabetes mellitus with hyperlipidemia (CMS/HCC) (CMS/[facility]) 0.25 subcutaneous once weekly for [...] s:Type 2 diabetes mellitus with hyperlipidemia (CMS/HCC) (CMS/[facility]),Persis tent proteinuria Take 1 tablet (40 mg) by mouth Once per day. 90 tablet 1 025 Active Suboxone 8-2 MG SL filmIndications: Uncomplicated opioid dependence (CMS/HCC) Place 3 Film under the tongue Once per day. 84 Film 1 025 2024 Active betamethasone valerate (Valisone) 0.1 % creamIndications :Venous stasis dermatitis of both lower extremities APPLY TOPICALLY TWICE DAILY IN THE MORNING AND AT BEDTIME NEEDED FOR DRY SKIN 45 g 2 025 Active hydrOXYzine pamoate (Vistaril) 25 MG capsuleIndicatio ns:MICHAEL (generalized anxiety disorder) Take 1 capsule (25 mg) by mouth if needed in the morning and at bedtime for anxiety. 30 capsule 1 025 2024 Active FLUoxetine (PROzac) 20 MG capsuleIndicatio ns:Severe episode of recurrent major depressive disorder, without psychotic features (CMS/HCC) Take 3 capsules (60 mg) by mouth in the morning. 90 capsule 1 025 2024 Active ARIPiprazole (Abilify) 10 MG tabletIndication s:Severe episode of recurrent major depressive disorder, without psychotic features (CMS/HCC) Take 0.5 tablets (5 mg) by mouth Once per day. 15 tablet 025 2024 Active FLUoxetine (PROzac) 20 MG capsuleIndicatio ns:Severe episode of recurrent major depressive disorder, without psychotic features (CMS/HCC) Take 3 capsules (60 mg) by mouth in the morning. 90 capsule 1 025 2024 Discontinued( Reorder (will not trigger notification to Pharmacy)) hydrOXYzine pamoate (Vistaril) 25 MG capsuleIndicatio ns:MICHAEL (generalized anxiety disorder) Take 1 capsule (25 mg) by mouth if needed in the morning and at bedtime for anxiety. 30 capsule 025 2024 Discontinued( Reorder (will not trigger notification to Pharmacy)) Active Problems Problem Noted Date Diagnosed Date History of tooth extraction 08/23/2024 Acute torn meniscus of knee, right, sequela [...] Health Integration Plan Internal Follow up with [facility] Patient Self Plan Patient to reach out to [facility] team as needed, Comply with medication , [...] Health Integration Plan Internal Follow up with [facility] Patient Self Plan Patient to reach out to [facility] team as needed, Comply with medication , [...] Health Integration Plan Internal Follow up with [facility] Patient Self Plan Patient to utilize skills provided in intervention , Patient to reach out to [facility] team as needed, and Patient to reach [...] Health Integration Plan Internal Follow up with [facility] External OP psychiatry Referral Patient Self Plan Patient to reach out to [facility] team as needed, Comply with medication , Patient to engage in OP BH therapy , and Patient to reach out to [facility] as needed Assessment & Plan (09/20/2023 10:06 AM EDT): New/Additional Services needed Off-site services for Behavioral Health Integration Plan External OP therapy referral Patient Self Plan Patient to utilize skills provided in intervention , Patient to reach out to [facility] team as needed, Comply with [...] explained that she tried referring pt to [facility] and other centers and pt;s can not [...] hypertension 05/10/2017 Overview (07/28/2022): Mild, ECHO 10/21/10 [facility], EF 65-70% H. pylori infection 05/10/2017 Overview (07/28/2022): + serology 08/07/2009, uncertain if treated Gout 05/10/2017 Elevated liver enzymes 05/10/2017 Overview (07/28/2022): fatty liver Arthritis 05/10/2017 Overview (07/28/2022): Mild L knee, Mod L shoulder arthropathy Asthma 05/10/2017 Spondylosis of lumbar region without myelopathy or radiculopathy 04/26/2017 Overview (07/28/2022): Saw [facility] Rheumatology CTS (carpal tunnel syndrome) 04/26/2017 Assessment [...] sleep apnea) 05/18/2015 Overview (07/28/2022): Polysomnography 08/05/2009, [facility] :On cpap 14 cm H2O 10/23/2017 Home Sleep Study insufficient data. 08/2018 - Pulm ordered split night study. Proteinuria 05/18/2015 Encounters * This document contains information received from the source organization and may not represent a complete record from that organization. Date Type Department Care Team Description 08/23/2024 10:00 AM EDT Office Visit [facility] [address] [place] [address] Zay Schmidt DDS History of tooth extraction, unspecified edentulism class (Primary Dx) 08/23/2024 Telephone [facility] [address] [place] [phone] Arlette Hill, RN DME Question 08/14/2024 Telephone [facility] [address] [place] [phone] Sofia Mitchell ANP [employer] [facility] [employer] (Bath tub wall rail) 08/09/2024 Population Health Risk Score [facility] Department [address] [place] [phone] Provider, Population Health Generic 08/06/2024 Telephone [facility] [address] [place] [address] Sofia Mitchell ANP Prior Authorization (Ozempic) 08/06/2024 Telephone [facility] [address] [place] [address] Sofia Mitcehll ANP Durable Medical Equipment (Grab bars) 08/06/2024 Orders Only GENERIC EXTERNAL DATA DEPARTMENT Provider, Generic External Data 08/05/2024 Telephone [facility] [address] [place] [phone] Sofia Mitchell ANP Nurse Triage 08/02/2024 Outside Procedure [facility] [address] [place] [address] Gary, Coreen, OD Presbyopia (Primary Dx) 08/01/2024 2:45 PM EST Office Visit [facility] [address] [place] [address] Gary, Coreen, OD Hyperopia of both eyes (Primary Dx) 07/25/2024 3:00 PM EST Office Visit [facility] [address] [place] [phone] Rut Branham MD Opioid type dependence, continuous ([facility]/HCC) (Primary Dx); Severe episode of recurrent major depressive disorder, without psychotic features ([facility]/HCC) 07/25/2024 Travel 07/24/2024 Refill [facility] [address] [place] [phone] Verona Estrada MD Venous stasis dermatitis of both lower extremities 07/18/2024 Refill [facility] [address] [place] [phone] Tristen Chen, APRIL Uncomplicated opioid dependence ([facility]/HCC) 07/16/2024 Travel 07/12/2024 Telephone [facility] [address] [place] [phone] Sofia Mitchell ANP Prior Authorization (Ozempic) 07/10/2024 2:00 PM EST Office Visit [facility] [address] [place] [phone] Sofia Mitchell ANP Type 2 diabetes mellitus with hyperlipidemia ([facility]/HCC) (Primary Dx); MICHAEL (generalized anxiety disorder); Severe [...] knee, right, sequela 07/10/2024 Travel 07/10/2024 Telephone [facility] [address] [place] [address] Anette Carrion MA Chart prep 07/09/[address] [address] Nikki Díaz RN Right shoulder X ray 07/03/2024 2:00 PM EST Office Visit [facility] [address] [place] [address] Lyndsay Tariq NP Chronic right shoulder pain (Primary Dx); Elevated blood pressure reading in office with diagnosis of hypertension 07/03/2024 Orders Only GENERIC EXTERNAL DATA DEPARTMENT Provider, Generic External Data 07/03/2024 Travel 06/27/2024 11:15 AM EST Office Visit [facility] [address] [place] [address] Kaitlyn Burk, KVNG Type 2 diabetes mellitus without ophthalmic manifestations (CMS/HCC) (Primary Dx); Presbyopia 06/27/2024 10:30 AM EST Clinical Support [address] [address] Tristen Chen RN Opioid type dependence, continuous (CMS/HCC) (Primary Dx) 06/27/2024 Travel 06/26/2024 Refill [facility] [address] [place] [phone] Heidy Taylor MD Chronic low back pain without sciatica, unspecified back pain laterality 06/21/[address] [address] Sofia Mitchell ANP 06/18/[address] [address] Tristen Chen RN Uncomplicated opioid dependence (CMS/HCC) 06/09/[address] [address] Sofia Mitchell ANP 06/07/[address] [address] Sofia Mitchell ANP 06/04/2024 9:40 AM EST Office Visit [facility] [address] [place] [address] Fermin Steward MD Chest pain, unspecified type (Primary Dx); Acute intractable headache, unspecified headache type; Hypertension, unspecified type 06/04/2024 Orders Only GENERIC EXTERNAL DATA DEPARTMENT Provider, Generic External Data 05/30/2024 2:45 PM EST Office Visit [facility] [address] [place] [address] Rut Branham MD Opioid type dependence, continuous (CMS/HCC) (Primary Dx); Severe episode of recurrent major depressive disorder, without psychotic features (CMS/HCC) 05/30/2024 Travel from Last 3 Months Immunizations Name Administration [...] Sign Reading Time Taken Comments Blood Pressure 136/74 08/23/2024 10:37 AM EDT Pulse 73 07/10/2024 2:00 PM EST Temperature [...] 09/19/2024 3:00 PM EDT Office Visit [facility] [address] [place] [phone] Rut Branham MD [address] [place] [phone] 10/08/2024 1:00 PM EDT Office Visit [facility] [address] [place] [address] Sofia Mitchell, ANP [address] [place], [place] [phone] Health Maintenance Due Date Last Done Comments [...] 19+ 3-dose series) 11/14/2023 10/17/2023 COVID-19 Vaccine ( - 2023- season) 2024 12/29/2020, 12/10/2020 Influenza Vaccine (#1) 2024 2, 02/27/2012, 01/27/2011, Additional history exists SDOH Screening 08/30/2024 08/31/2023 Alcohol/Substance Use Screening 01/04/2025 01/05/2024 Depression Monitoring (PHQ-9) 01/07/2025 07/10/2024, 01/19/2024 Diabetes: Hemoglobin A1C 01/07/2025 025, 04/24/2024, 02/13/2024, Additional history exists Lipid Panel 04/24/2025 04/24/2024, 06/14/2023 Depression Screening 07/10/2025 07/10/2024, 01/19/20 24 Tobacco Screening 08/23/2025 08/23/2024 Eye Exam 06/27/2026 06/27/2024, 05/31, 06/27/2024, Additional [...] Procedure Name Priority Date/Time Associated Diagnosis Comments 23,24,25,26 MANDIBULAR PARTIAL DENTURE - RESIN BASE (INCLUDING, RETENTIVE/CLASPING MATERIALS, RESTS, AND TEETH) Routine 08/23/2024 10:00 AM EDT CASE PRESENTATION, DETAILED AND EXTENSIVE TREATMENT PLANNING Routine 08/23/2024 10:00 AM EDT 26 EXTRACTION Routine 08/23/2024 12:00 AM EDT 23 EXTRACTION Routine 08/23/2024 12:00 AM EDT 23 EXTRACTION Routine 08/23/2024 12:00 AM EDT 11 EXTRACTION Routine 08/23/2024 12:00 AM EDT 23 EXTRACTION Routine 08/23/2024 12:00 AM EDT 24 EXTRACTION Routine 08/23/2024 12:00 AM EDT 25 EXTRACTION Routine 08/23/2024 12:00 AM EDT 26 EXTRACTION Routine 08/23/2024 12:00 AM EDT SARS COV2/INFLUENZA A/B AND RSV RNA QL [...] PM EST Opioid type dependence, continuous (CMS/HCC) LIPID PANEL, STANDARD Routine 04/24/2024 11:23 AM EST HIV 1/2 ANTIGEN/ANTIBODY, FOURTH GENERATION W/RFL Routine 12/13/2023 11:48 AM EDT Elevated erythrocyte sedimentation rate 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) ([facility]/HCC) from Last 3 Months or Most Recently Relevant to Health Maintenance Results * SARS-CoV-2 RNA, Influenza A/B, and RSV RNA, Ql NAAT (08/06/2024 12:26 PM EDT) Influenza A PCR NEGATIVE Negative [facility] Influenza B PCR NEGATIVE Negative [facility] Resp Syncy Virus RNA Qual PCR NEGATIVE Negative [facility] SARS COV2 PCR NEGATIVE Negative [facility] Comment:All test results mus t be [...] use by authorized laboratories.Testing performed on the Y[employer] GeneXpert utilizingreal-time RT-PCR.All SARS CoV2 and positive influenza A/B results arereported to [facility]. 08/06/2024 12:2 6 PM EDT 08/06/2024 12:28 PM EDT us Generic External Data Provider LAB MICROBIOLOGY - GENERAL ORDERABLES Final Result [facility] [address] [place] [phone] * XR Chest 1 View (08/06/2024 12:06 PM EDT) Only the most recent of2 resultswithin the time period is included. Anatomical Region Laterality Modality Chest Radiographic Lupe ging 08/06/2024 12:0 6 PM EDT Narrative 08/06/2024 12:43 PM EDT ? [facility] ?[address] ?[place] [address] ?XRay Report ? Signed ? Patient: Navarrete,Ross L ?MR#: [id number] ?? 613 ? : 1980 ?Acct:[id number] ? Age/Sex: 43 / M ?ADM Date: 08/06/24 ? Loc: HO.ED ? Attending Dr: ? Ordering Physician: Matilda Jones MD ?? Date of Service: 08/06/24 ?? Procedure(s): XR chest 1V ?? Accession Number(s): [id number] ? cc: Matilda Jones MD; SOFIA MITCHELL [...] DD/ 1206 ? TD/TT: 08/06/24 1218 ? Public Policy Analyst: ? Procedure Note Maria T Cronin - 08/06/[address] [address] XRay Report Signed Patient: Ross Navarrete R#: [id number] : 1980Acct:[id number] Age/Sex: 43 / MADM Date: 08/06/24 Loc: HO.ED Attending Dr: Ordering Physician: Matilda Jones MD Date of Service: 08/06/24 Procedure(s): XR chest 1V Accession Number(s): [id number] cc: Matilda Jones MD; SOFIA MITCHELL NP [...] 08/06/24 1240 DD/ 1206 TD/TT: 08/06/24 1218 Public Policy Analyst: [facility] External Provider IMG XR PROCEDURES Final Result * (ABNORMAL) CBC auto differential (08/06/2024 10:13 AM EDT) Only the most recent of2 resultswithin the time period is included. White Blood Count 7.3 4.8 - 10.8 X10*3/uL [facility] Red Blood Count 4.61 4.60 - 5.80 X10*6/uL [facility] Hemoglobin 13.1(L) 14.0 - 18.0 g/dl [facility] Hematocrit 39.1(L) 42.0 - 52.0 % [facility] Mean Corpuscular Volume 84.8 80.0 - 98.0 fL [facility] Mean Corpuscular Hemoglobin 28.4 27.0 - 33.0 pg [facility] Mean Corpuscular HGB Conc 33.5 31.0 - 36.0 g/dl [facility] Red Cell Distribution Width 13.2 11.0 - 16.0 % [facility] Platelet Count 126(L) 160 - 400 X10*3/uL [facility] Mean Platelet Volume 11.4 9.4 - 12.4 fL [facility] Neutrophils Percent Auto 67.2 45 - 73 % [facility] Imm Gran Pct Auto 0.4 0.0 - 0.4 % [facility] Lymphocytes Percent Auto 24.9 20 - 40 % [facility] Monocytes Percent Auto 4.8 2 - 11 % [facility] Eosinophils Percent Auto 2.3 0 - 4 % [facility] Basophils Percent Auto 0.4 0 - 2 % [facility] NRBC Pct Auto 0.0 0.0 - 0.2 /100WBC [facility] Neutrophils Absolute Auto 4.9 2.0 - 8.3 x10*3/uL [facility] Imm Gran Abs Auto 0.03 0.00 - 0.03 X10*3/uL [facility] Lymphocytes Absolute Auto 1.8 1.2 - 4.9 X10*3/uL [facility] Monocytes Absolute Auto 0.4 0.1 - 1.2 X10*3/uL [facility] Eosinophils Absolute Auto 0.2 0.0 - 0.4 X10*3/uL [facility] Basophils Absolute Auto 0.0 0.0 - 0.2 X10*3/uL [facility] NRBC Abs Auto 0.000 0.0 - 0.012 X10*3/uL [facility] 08/06/2024 10:1 3 AM EDT 08/06/2024 10:16 AM EDT us Generic External Data Provider LAB BLOOD ORDERAB LES Final Result Performing Organization Address City/State/[facility] Co de Phone Number [facility] [address] [place] [phone] * Prothrombin Time-INR (08/06/2024 10:13 AM EDT) Prothrombin Time 11.7 10.9 - 12.4 SEC [facility] INTERNATIONAL NORM RATIO 1.0 0.9 - 1.1 [facility] Comment:INTERNATIONAL NORMAL IZED RATIO (INR) [...] Provider LAB BLOOD ORDERAB LES Final Result [facility] [address] [place] [phone] * POCT RAMSES-14 Urine Drug Screen [...] Expiration Date Blood 07/10/2024 2:05 PM EST Sofia RAHMAN POINT OF CARE TEST ENTER/EDIT OR DERABLES Final Result * POCT Glucose (07/10/2024 2:02 PM EST) Glucose Blood, POC 127 60 - 200 mg/dL QC Media Lot # [id number] Lot# Expiration Date ,025 Blood Capillary blood specimen / Unknown 07/10/2024 2:02 PM EST us Sofia RAHMAN POINT OF CARE TEST ENTER/EDIT OR DERABLES Final Result * T-SPOT??.TB (07/03/2024 1:30 PM EST) T Spot TB Negative Negative [facility] Comment:A negative test resu lt [...] as aquantitative test. TS PANEL A 0 [facility] TS PANEL B 0 [facility] Negative Control Passed [facility] Positive Control Passed [facility] Comment:For additional infor mation, please refer tohttp://education.[employer]/faq/IAL150(This link is being provided for informational/educational purposes only.)THIS TEST WAS PERFORMED AT:[employer] [id number] [place] [phone] NICOLAS MD,PHD 07/03/2024 1:30 PM EST 07/03/2024 4:16 PM EST us Generic External Data Provider LAB BLOOD ORDERAB LES Final Result [facility] [address] [place] [phone] * Hepatitis Panel, General (07/03/2024 1:30 PM EST) Pathologist [facility] Hepatitis A IgM Nonreactive Nonreactive [facility] Comment:IgM antibodies to MONTERO V not detected; does not exclude earlyacute or recovered HAV infection. ~Hepatitis B Surface Antibody NONREACTIVE Nonreactive [facility] Comment:Nonreactive: < 8.00 mIU/mL Hepatitis B Core Antibody Nonreactive Nonreactive [facility] Hepatitis C Antibody Nonreactive Nonreactive [facility] Comment:Antibodies to HCV no t detected; does not exclude early acuteHCV infection. Hepatitis B Surface Ag Negative Negative [facility] 07/03/2024 1:30 PM EST 07/03/2024 4:16 PM EST us Generic External Data Provider LAB BLOOD ORDERAB LES Final Result [facility] [address] [place] [phone] * (ABNORMAL) Drug Monitoring, Panel 1, Screen, Urine (07/03/2024 1:30 PM EST) Opiate Screen Urine Not Detected Not Detect [facility] Comment:Opiate cut-off is 30 0 ng/mL.Positive results are unconfirmed and should not be used fornon-medical purposes. Barbiturates, Urine Not Detected Not Detect [facility] Comment:Barbiturate cut-off is 200 ng/mL.Positive results are unconfirmed and should not be used fornon-medical purposes. Phencyclidine Screen Urine Not Detected Not Detect [facility] Comment:Phencyclidine cut-of f is 25 ng/mL.Positive results are unconfirmed and should not be used fornon-medical purposes. Amphetamine Screen Urine Not Detected Not Detect [facility] Comment:Amphetamine cut-off is 1000 ng/mL.Positive results are unconfirmed and should not be used fornon-medical purposes. Benzodiazepines Screen Urine Not Detected Not Detect [facility] Comment:Benzodiazepine cut-o ff is 200 ng/mL.Positive results are unconfirmed and should not be used fornon-medical purposes. Cocaine Screen Urine Not Detected Not Detect [facility] Comment:Cocaine cut-off is 3 00 ng/mL.Positive results are unconfirmed and should not be used fornon-medical purposes. Cannabinoid Screen Urine POSITIVE(A) Not Detect [facility] Comment:Cannabinoid cut-off is 50 ng/mL.Positive results are unconfirmed and should not be used fornon-medical purposes. Methadone Screen, Urine Not Detected Not Detect ng/mL [facility] Comment:Methadone cut-off is 300 ng/mL.Positive results are unconfirmed and should not be used fornon-medical purposes. FENTANYL URINE Not Detected Not Detect [facility] Comment:Fentanyl cut-off is 1 ng/mL.Positive results are unconfirmed and should not be used fornon-medical purposes. Oxycodone Urine Screen Not Detected Not Detect ng/mL [facility] Comment:Oxycodone cut-off is 100 ng/mL.Positive results are unconfirmed and should not be used fornon-medical purposes. Buprenorphine Screen Positive(A) Not Detect ng/mL [facility] Comment:Buprenorphine cut-of f is 5 ng/mL.Positive results are unconfirmed and should not be used fornon-medical purposes. Urine (Urine, Random) 07/03/2024 1:30 PM EST 07/03/2024 4:16 PM EST Jermaine Suárez PMHNP LAB URINE ORDERABLES Final Re sult [facility] Organization Address City/State/ZIP Co de Phone Number [facility] [address] [place] [phone] * XR CERVICAL SPINE 3V (06/04/2024 5:58 PM EST) Anatomical Region Laterality Modality Abdomen Radiographic Lupe ging 06/04/2024 5:58 PM EST Narrative 06/04/2024 6:00 PM EST ? [facility] ?[address] ?[place] [address] ?XRay Report ? Signed ? Patient: Navarrete,Ross L ?MR#: [id number] ?? 613 ? : 1980 ?Acct:[id number] ? Age/Sex: 43 / M ?ADM Date: 01/07/25 ? Loc: HO.ED ? Attending Dr: ? Ordering Physician: Alexey Fabian ?? Date of Service: 06/04/24 ?? Procedure(s): XR cervical spine 3V ?? Accession Number(s): [id number] ? cc: [facility]; Alexey Fabian ? CLINICAL HISTORY: neck [...] ? 06/04/24 1759 ? DD/ ? TD/TT: 06/04/241757 ? Public Policy Analyst: ? Procedure Note Donmelbajonoabelter, Image - 06/04/[address] [id number] XRay Report Signed Patient: Ross Navarrete LMR#: [id number] : 1980Acct:[id number] Age/Sex: 43 / MADM Date: 06/04/24 Loc: HO.ED Attending Dr: Ordering Physician: Alexey Fabian Date of Service: 06/04/24 Procedure(s): XR cervical spine 3V Accession Number(s): [id number] cc: [facility]; Alexey Fabian CLINICAL HISTORY: neck pain [...] in OV> 06/04/241758 DD/ 57 TD/TT: 06/04/241757 Public Policy Analyst: [facility] External Provider IMG XR PROCEDURES Final Result * Glucose, Whole Blood (06/04/2024 4:40 PM EST) Glucose, Whole Blood 106 60 - 115 mg/dL [facility] Comment:METER #: [id number] 06/04/2024 4:40 PM EST 06/04/2024 4:43 PM EST Generic External Data Provider LAB BLOOD ORDERAB LES Final Result Performing Organization Address [facility] Co de Phone Number [facility] [address] [place] [phone] * High Sensitivity Troponin I (06/04/2024 11:28 AM EST) Pathologist [facility] TROPONIN I HIGH SENSITIVITY <2.7 <3.5 - 35.0 ng/L [facility] Comment:The [place] high sens itivity Troponin-I results should beused in conjunction with other diagnostic information suchas ECG, clinical observations and information, and patientsymptoms to aid in the diagnosis of [place]. 06/04/2024 11:2 8 AM EST 06/04/2024 11:56 AM EST Generic External Data Provider LAB BLOOD ORDERAB LES Final Result Performing Organization Address City/[facility]/ZIP Co de Phone Number [facility] [address] [place] [phone] * (ABNORMAL) Basic Metabolic Panel (06/04/2024 11:28 AM EST) Pathologist [facility] Sodium 138 135 - 145 mmol/L [facility] Potassium 4.2 3.3 - 5.1 mmol/L [facility] Chloride 105 96 - 108 mmol/L [facility] Carbon Dioxide 28 22 - 29 mmol/L [facility] Anion Gap 9(L) 12 - 20 [facility] Urea Nitrogen (BUN) 17(H) 9 - 16 mg/dL [facility] Creatinine, Serum 0.98 0.5 - 1.4 mg/dL [facility] Creatinine Clr Calc Pharmacy 150.8 [facility] Comment:eGFR (calculated fro m the MDRD study equation) and eCrCl(calculated from the Cockcroft-Gault equation) are based ondifferent parameters and may not yield comparable results.If eCrCl result is absurd, please check patient'sheight/weight. Estimated Glomerular Filt Rate >60 [facility] Comment:Chronic Kidney Disea se: Estimated GFR < 60 mL/min/1.52q7Pndtih Kidney Disease: Estimated GFR < 15 mL/min/1.73m2 Glucose 130(H) 60 - 115 mg/dL [facility] Calcium 9.3 8.4 - 10.2 mg/dL [facility] 06/04/2024 11:2 8 AM EST 06/04/2024 11:56 AM EST us Generic External Data Provider LAB BLOOD ORDERAB LES Final Result [facility] [address] [place] [phone] * Lipid Panel, Standard (04/24/2024 11:23 AM EST) Triglycerides 132 <150 mg/dL [facility] Comment:Desirable Triglyceri de: less than 150 mg/dLBorderline High Triglyceride 150-199 mg/dLHigh Triglyceride: 200-499 mg/dLVery High Triglyceride: greater than or equal to 5OO mg/dL Cholesterol 165 <200 mg/dL [facility] Comment:Desirable Cholestero l: less than 200 mg/dLBorderline High Cholesterol: 200-239 mg/dLHigh Cholesterol: greater than 239 mg/dL LDL Cholesterol Calculated 91 <100 mg/dL [facility] Comment:Desirable LDL: less than 100 mg/dLNear Optimal/Above Optimal LDL: 110- 129 mg/dLBorderline High LDL: 130-159 mg/dLHigh LDL: 160-189 mg/dLVery High LDL: greater than or equal to 190 mg/dL HDL Cholesterol 48 >40 mg/dL [facility] Comment:Desirable HDL: great er than 40 mg/dL Note: This HDL assay may give artificially low results in patients with liver disease. 04/24/2024 11:2 3 AM EST 04/24/2024 11:23 AM EST Generic External Data Provider LAB BLOOD ORDERAB LES Final Result Performing Organization Address City/[facility]/ZIP Co de Phone Number [facility] [address] [place] [phone] * HIV-1/2 Antigen and Antibodies, Fourth Generation, with Reflexes (12/13/2023 11:48 AM EDT) [facility] HIV AB/AG Nonreactive Nonreactive [facility] Comment:HIV-1 p24 Ag and/or HIV-1/HIV-2 Ab not detected.A test result that is nonreactive does not exclude thepossibility of exposure to or infection with HIV-1 and/orHIV-2. Nonreactive results in this assay for individualswith prior exposure to HIV-1 and/or HIV-2 may be due toantigen and antibody levels that are below the limit ofdetection of this assay.The [employer] HIV Ag/Ab Combo assay result andsupplemental assay results should be interpreted inconjunction with the patient's clinical presentation,history and other laboratory results. If the results areinconsistent with clinical evidence, additional testing issuggested to confirm the result. Blood Venous blood specimen / Unknown 12/13/2023 11:48 AM EDT 12/13/2023 12:51 PM EDT [facility] LAB BLOOD ORDERABLES Final Resul t [facility] [address] [place] [phone] [phone] from Last 3 Months or Most Recently Relevant to Health Maintenance Insurance [facility] C3 HSN FULL DENTAL-[facility] MEDICAID STAND ADULT Care Teams High Man Relationship Specialty Start Date End Date Sofia Mitchell ANP [address] [place] [phone] PCP - General Family Medicine 01/18/22
--- OUTSIDE RECORDS SUMMARY | 2024-08-28 08:55 | XMS_ITS | Encounter Summary ---
Author Organization [employer] Address [address] [facility] 7 [place] [address] Care Team Providers Care Delimer Name Role Phone Naheed Zaman JOSIAH Primary Care Provider [phone] Reason for Visit * Reason Comments Dentures Encounter Details Date Type Department Care Team ([facility] st Contact Info) Description 08/23/2024 10:00 AM EDT Office Visit [facility] [address] [place] [address] Zay Schmidt DDS [address] [place] [address] History of tooth extraction, unspecified edentulism class (Primary Dx) Social History Tobacco Use Types [...] the past 12 months, has t he [employer], gas, oil or water [facility] threatened to shut off services in your [...] Pressure 136/74 08/23/2024 10:37 AM EDT Pulse - - Temperature - - Respiratory Rate - - Oxygen Saturation - - Inhaled Oxygen Concentration - - Weight - - Height - - Body Mass Index - - documented in this encounter Progress Notes * Zay Schmidt, CANDICE - 08/23/2024 10:00 AM EDT Patient ID: Ross Navarrete is a 43 y.o. male. Time Out: Timeout Date: 08/23/24, Timeout Time: 1036 (delivery of lower partial) Location: [facility] Tooth: Mandible Procedure: Dentures Verified the above with patient, banking assistant, and provider. Confirmed via patient's chart, intraorally and by radiographs. Paginator: not applicable Chief Complaint Patient presents with Dentures Medical Hx: Vitals: Blood pressure 136/74. Medications, Med Hx reviewed with patient and updated in chart. Consent Obtained: The risks, benefits, indications, potential complications, and alternatives were explained to the patient and informed consent was obtained with good understanding. Treatment Provided: Dental procedures in this visit There are no dental procedures in this visit. Tried in denture(s) -Evaluated for comfort, fit, phonetics, and stability (f, v, s, th sounds; swallow, yawn, etc) -Evaluated for satisfactory esthetics. -Occlusion verified; adjustments made as necessary. Patient has received information sheet for denture care and expectations. Pt was provided with denture case and denture brush. NV: F/U as needed / EXAM Leakage Tester: Katie Lo Dentist: Zay Schmidt DDS documented in this encounter Plan of Treatment Upcoming Encounters Date Type Department Care Team (Late st Contact Info) Description 09/19/2024 3:00 PM EDT Office Visit [facility] [address] [place] [address] Rut Branham MD [address] [place] [address] 10/08/2024 1:00 PM EDT Office Visit [facility] [address] [place] [address] Naheed Zaman ANP [address] [place] [address] documented as of this encounter Procedures Procedure [...] 26 EXTRACTION Routine 08/23/2024 12:00 AM EDT documented in this encounter Visit Diagnoses Diagnosis History of tooth extraction, unspecified edentulism class- Primary documented in this encounter Additional Health Concerns Assessment Noted Time PHQ-9 Depression Total Score: 25 024 8:12 AM EDT documented as of this encounter Care Teams Delimer Relationship Specialty Start Date End Date Naheed Zaman ANP [address] [place] [address] PCP - General Family Medicine 01/18/22 documented as of this encounter
--- OUTSIDE RECORDS SUMMARY | 2024-08-28 08:55 | XMS_ITS | Encounter Summary ---
Author Organization [employer] Address [address] [facility] [address] [place] [address] Care Team Providers Care Equipment Sales Specialist Name Role Phone Naheed Zaman Primary Care Provider [phone] Reason for Visit * Reason Onset Date Comments Durable Medical Equipment 10/04/2022 Encounter Details Date Type Department Care Team (Late st Contact Info) Description 10/04/2022 Telephone [facility] [address] [place] [address] Naheed Zaman ANP [address] [place] [address] Durable Medical Equipment Social History Tobacco Use [...] for Compressions socks. Please contact pt at [phone] documented in this encounter Plan of Treatment Upcoming Encounters Date Type Department Care Team (Late st Contact Info) Description 09/19/2024 3:00 PM EDT Office Visit [facility] [address] [place] [phone] Rut Branham MD [address] [place] [phone] 10/08/2024 1:00 PM EDT Office Visit [address] [address] Naheed Zaman ANP [address] [place] [phone] documented as of this encounter Visit Diagnoses Not on filedocumented in this encounter Care Teams Equipment Sales Specialist Relationship Specialty Start Date End Date Naheed Zaman ANP [address] [place] [phone] PCP - General Family Medicine 01/18/22 documented as of this encounter
--- OUTSIDE RECORDS SUMMARY | 2024-08-28 08:55 | XMS_ITS | Encounter Summary ---
Author Organization [employer] Address [address] [facility] [address] [place] [address] Care Team Providers Care Freight Flagman Name Role Phone Junie Naheed RAHMAN Primary Care Provider Reason for Visit * Reason Onset Date Comments [facility] 12/12/2023 Encounter Details Date Type Department Care Team ([facility] st Contact Info) Description 12/12/2023 Telephone [facility] [address] [place] [address] Zay Schmidt DDS [address] [place] [address] [facility] Social History Tobacco Use Types Packs/Day [...] dental relief. Pain Management office phone number [phone] documented in this encounter Plan of Treatment Upcoming Encounters Date Type Department Care Team (Late st Contact Info) Description 09/19/2024 3:00 PM EDT Office Visit [facility] [address] [place] [phone] Rut Branham MD [address] [place], [place] [phone] 10/08/2024 1:00 PM EDT Office Visit [facility] [address] [place] [address] [phone] Naheed Zaman ANP [address] [place], [place] [phone] documented as of this encounter Visit Diagnoses Not on filedocumented in this encounter Additional Health Concerns Assessment Noted Time PHQ-9 Depression Total Score: 23 11/16/ 024 3:25 PM EDT documented as of this encounter Care Teams Freight Flagman Relationship Specialty Start Date End Date Naheed Zaman ANP [address] [place] [phone] PCP - General Family Medicine 01/18/22 documented as of this encounter
== END 2024-08-28 09:24 | disposition home or self-care (01) ==
LOC: HO.HCS 08:34
PROVIDERS: PCP Nurse Practitioner Primary Care; Visit Provider Internal Medicine Cardiovascular Disease
DX: R07.9 Chest pain, unspecified (principal)
CPT/HCPCS: 93010; 99214

== ENCOUNTER → 2024-08-28 08:33 | Outpatient (BNVA) | payer MEDICAID, SELFPAY | PROVIDERS: PCP Nurse Practitioner Primary Care; Visit Provider Internal Medicine Cardiovascular Disease | DX: I10 Essential (primary) hypertension (principal); R07.9 Chest pain, unspecified | CPT/HCPCS: 93005; 99212 ==

== ENCOUNTER 2024-09-12 09:46 | Emergency (ER) | payer MEDICAID, SELFPAY ==
--- NOTE | ~2024-09-12 | CT_ITS ---
EXAMINATION: CT ANGIOGRAM CHEST CLINICAL INFORMATION: Shortness of breath. Right lung pain. COMPARISON: September 22, 2017. TECHNIQUE: Multiple axial images were obtained through the chest after the administration of 65 mL of Omnipaque 350 intravenous contrast. Extensive vascular post-processing including two-dimensional and three-dimensional reformatted images were created and reviewed on an independent workstation. This CT examination was performed using dose optimization techniques as appropriate, variously including the following: *Automated exposure control *Adjustment of mA and/or kV according to patient size (this includes techniques or standardized protocols for targeted exams where dose is matched to indication/reason for exam; i.e. extremities or head) *Use of iterative reconstruction technique DLP: 658.38 mGy centimeter. FINDINGS: There is patency of the main pulmonary artery or its main branches and the subsegmental pulmonary branches without gross intraluminal filling defects. Thoracic aorta demonstrates normal enhancement pattern, diameter/caliber without intimal flap. No complications and the coronary arteries. No calcifications in the thoracic aorta. No pericardial effusion. No lymphadenopathy, mediastinum or perihilar. No consolidation, pleural effusion or pneumothorax. No bronchiectasis. No honeycombing. No acute rib fracture. Sternum is intact. Scapula is intact. Subchondral cyst formation and sclerosis and asymmetric joint space narrowing involving the left glenohumeral joint. Multilevel thoracic spondylosis without acute fracture or listhesis. CT/CT angio chest PE protocol IMPRESSION: No acute pulmonary artery emboli. No aneurysm or dissection, thoracic aorta. No acute airspace disease. Fleischner guidelines were followed. Electronically signed by: Dionisio Stokes MD 09/12/2024 02:11 PM EDT
--- NOTE | ~2024-09-12 | CT_ITS ---
EXAMINATION: CT ABDOMEN PELVIS WITHOUT IV CONTRAST HISTORY: right lower back, right flank pain COMPARISON: Comparison is made with the prior examination dated 01/20/2021. TECHNIQUE: CT scan of the abdomen and pelvis was performed without contrast using standard departmental protocol. Coronal and sagittal reformatted images were generated and reviewed. Oral contrast material was not administered per department protocol. This CT exam was performed with one or more of the following dose reduction techniques: automated exposure control, adjustment of the mA and/or kV according to patient size, use of iterative reconstruction technique. DLP: 2439 mGy-cm FINDINGS: LOWER CHEST: The visualized lung bases are clear. There is no pleural effusion. CARDIOVASCULATURE: The heart is normal in size. There is no pericardial effusion. LIVER: The liver is normal in size and contour. The liver demonstrates diffusely decreased attenuation, consistent with steatosis. GALLBLADDER / BILE DUCTS: The gallbladder is unremarkable. There is no intra or extrahepatic biliary ductal dilatation. SPLEEN: The spleen is borderline enlarged, but has an unremarkable unenhanced appearance. PANCREAS: The pancreas has an unremarkable unenhanced appearance. ADRENAL GLANDS: Unremarkable. KIDNEYS/RETROPERITONEUM: No renal or ureteral calculi are identified. There is no hydronephrosis or hydroureter. LYMPH NODES: No retroperitoneal lymphadenopathy is identified in the abdomen or pelvis. VASCULATURE: The abdominal aorta is normal in caliber. MESENTERY/PERITONEUM: No free fluid. No masses. There is no free intraperitoneal gas. STOMACH: The stomach is collapsed, limiting evaluation. SMALL BOWEL: The small bowel is normal in caliber. COLON: The colon is unremarkable. APPENDIX: The appendix is not seen, however no inflammatory changes are seen adjacent to the cecum. URINARY BLADDER/PELVIC ORGANS: The urinary bladder is unremarkable. The prostate is normal in size. BONES / SOFT TISSUES: There is degenerative disc disease of the lower thoracic spine. CT/CT abdomen pelvis wo IV con IMPRESSION: 1. No evidence of nephrolithiasis or ureteral obstruction. 2. Hepatic steatosis. Borderline splenomegaly. Electronically signed by: Gurinder Valdez MD 09/12/2024 02:04 PM EDT
--- NOTE | ~2024-09-12 | XR_ITS ---
EXAMINATION: XR CHEST 1 VIEW HISTORY: SOB COMPARISON: Comparison is made with the prior examination dated 08/06/2024. FINDINGS: A single PA portable view of the chest is submitted. The lungs are expanded and clear. There is no pleural effusion, pneumothorax, or pulmonary vascular congestion. The heart is normal in size. There is degenerative disc disease of the spine. XR/XR chest 1V IMPRESSION: No acute cardiopulmonary abnormality. Electronically signed by: Gurinder Valdez MD 09/12/2024 10:26 AM EDT
[2024-09-12 10:06] VITALS: BP 196/78; PULSE 95; RESP 16; TEMP 36.6; O2SAT 95; BMI 65.0
[2024-09-12 10:35] LABS: Appearance Urine Clear; Color Urine Yellow; Glucose Urine UA Negative (Negative); Leukocyte Esterase Urine Negative (Negative); MANUAL DIFF FLAG NO; Nitrite Urine Negative (Negative); PH 5.5 (5.0-9.0); UMIC TRIGGER UACC YES; Urine Blood Negative (Negative); Urine Ketones Negative (Negative); Urine Protein 300 (3+) mg/dL (Neg-Trace)
[2024-09-12 10:36] LABS: Basophils Percent Auto 0.5 % (0-2); Eosinophils Absolute Auto 0.1 X10*3/uL (0.0-0.4); Eosinophils Percent Auto 1.6 % (0-4); Hematocrit 40.1 % (42.0-52.0); Hemoglobin 13.3 g/dl (14.0-18.0); Imm Gran Abs Auto 0.04 X10*3/uL (0.00-0.03); Imm Gran Pct Auto 0.5 % (0.0-0.4); Lymphocytes Absolute Auto 2.1 X10*3/uL (1.2-4.9); Lymphocytes Percent Auto 24.5 % (20-40); Mean Corpuscular HGB Conc 33.2 g/dl (31.0-36.0); Mean Corpuscular Hemoglobin 28.2 pg (27.0-33.0); Mean Corpuscular Volume 85.1 fL (80.0-98.0); Mean Platelet Volume 11.7 fL (9.4-12.4); Monocytes Absolute Auto 0.5 X10*3/uL (0.1-1.2); Monocytes Percent Auto 6.1 % (2-11); Neutrophils Absolute Auto 5.8 x10*3/uL (2.0-8.3); Neutrophils Percent Auto 66.8 % (45-73); Platelet Count 134 X10*3/uL (160-400); Red Blood Count 4.71 X10*6/uL (4.60-5.80); Red Cell Distribution Width 12.7 % (11.0-16.0); White Blood Count 8.6 X10*3/uL (4.8-10.8)
[2024-09-12 10:38] LABS: Bacteria Urine None Seen (None Seen); Hyaline Casts Urine 0-2 /LPF (0-2); RBC Urine 0-2 /HPF (0-2); Squamous Epithelial Cell Urine 0-2 /HPF (0-2); WBC Urine 0-5 /HPF (0-5)
[2024-09-12 10:58] LABS: Alanine Aminotransferase 22 U/L (0-40); Albumin Level 3.9 g/dL (3.5-5.0); Alkaline Phosphatase 75 U/L (39-117); Anion Gap 13 (12-20); Aspartate Amino Transferase 24 U/L (5-37); Bilirubin Total 0.7 mg/dL (0.0-1.0); Blood Urea Nitrogen 23 mg/dL (9-16); Calcium 9.5 mg/dL (8.4-10.2); Carbon Dioxide 25 mmol/L (22-29); Chloride 102 mmol/L (96-108); Creatinine Clr Calc Pharmacy 124.3; Estimated Glomerular Filt Rate > 60; Glucose Random 180 mg/dL (60-115); Potassium 4.1 mmol/L (3.3-5.1); Sodium 136 mmol/L (135-145); Total Protein 7.8 g/dL (6.5-8.0)
--- NOTE | 2024-09-12 11:00 | ED.ABDPAIN ---
HPI - Abdominal Pain General Chief Complaint: Abdominal Pain Stated Complaint: back kidney pain Time Seen by Provider: 09/12/24 10:58 Source: patient Mode of arrival: ambulatory Limitations: no limitations History of Present Illness ED Provider: Melissa Landers PA-C HPI narrative: 43 yo male with history of morbid obesity BMI 65, chronic pain syndrome, depression, PTSD, RAMON, HTN, BETSY on CPAP, DM, arthritis who presents to the ER for evaluation of right lower back pain and right flank pain for the last 1 week. He reports the pain is severe, 10/10, sharp and aching in nature. it is worse with any movement. he is unable to sleep due to the pain. He reports difficulty starting his urine stream but otherwise no hematuria, dysuria or frequency. he has been more SOB with any exertion lately as well. he reports pain with deep breaths in his right middle back. he has chronic leg swelling which is unchanged. no chest pain. no fever, chills. MD elicited complaint: abdominal pain Pertinent past history: none Onset (ago): week(s) (1) Pain Consistency: constant Location: R flank Severity: severe Pain scale (0-10): 10 Quality: stabbing Radiation: none Migration to: no migration Exacerbating factors: movement Relieving factors: nothing Associated symptoms: nausea and vomiting (chronic) Related Data Home Medications ?Medication ?Instructions ?Recorded ?Confirmed insulin lispro 100 unit/mL 35 unit subcut TID 07/26/21 08/28/24 subcutaneous pen (Humalog KwikPen (U-100) Insulin) buprenorphine 8 mg-naloxone 2 mg 1 film sublingual TID 02/09/22 08/28/24 sublingual film (Suboxone) insulin glargine 100 unit/mL (3 55 unit subcut BEDTIME 04/22/24 08/28/24 mL) subcutaneous pen (Lantus Solostar U-100 Insulin) ammonium lactate 12 % lotion topical 06/17/24 08/28/24 ammonium lactate 12 % topical cream appl topical 06/17/24 08/28/24 betamethasone valerate 0.1 % appl topical 06/17/24 08/28/24 topical cream clotrimazole 1 % topical cream appl topical BID 06/17/24 08/28/24 flash glucose sensor (FreeStyle #1 ea 06/17/24 08/14/24 Casey 2 Sensor kit) zinc oxide 40 % topical ointment topical 06/17/24 08/28/24 (Diaper Rash) atorvastatin 10 mg tablet 10 mg PO BEDTIME 08/28/24 08/28/24 famotidine 20 mg tablet 20 mg PO BEDTIME 08/28/24 08/28/24 fluoxetine 40 mg capsule 60 mg PO DAILY 08/28/24 08/28/24 lisinopril 40 mg tablet 40 mg PO DAILY 08/28/24 08/28/24 semaglutide 0.25 mg or 0.5 mg (2 mg subcut 08/28/24 08/28/24 mg/3 mL) subcutaneous pen injector ([employer]) Previous Rx's ?Medication ?Instructions ?Recorded meloxicam 15 mg tablet 15 mg PO DAILY 30 days #30 tabs 03/16/22 gabapentin 100 mg capsule 100 mg PO BEDTIME #90 caps 02/27/24 adalimumab 40 mg/0.4 mL 40 mg (0.4 mL) subcut Q2W #2 ea 05/30/24 subcutaneous pen kit (Humira(CF) Pen) acetaminophen 500 mg tablet 500 mg PO Q6H PRN pain #20 tabs 06/04/24 (Acetaminophen Extra Strength) lidocaine 5 % topical patch 1 patch topical DAILY PRN pain #15 06/04/24 ea sodium,potassium,mag sulfates 17.5 See Rx Instructions PO .COMPLEX 06/17/24 gram-3.13 gram-1.6 gram oral soln #354 mL (Suprep Bowel Prep Kit) cholecalciferol (vitamin D3) 1,250 1,250 mcg PO QWEEK #13 caps 07/29/24 mcg (50,000 unit) capsule cyclobenzaprine 10 mg tablet 10 mg PO TID PRN muscle spasm #14 09/12/24 tabs Allergies Allergy/AdvReac Type Severity Reaction Status Date / Time seafood Allergy Severe Swelling Verified 09/12/24 10:06 Review of Systems Review of Systems Yes all other systems are reviewed and are negative [facility] Past Medical History Medical History Seronegative spondyloarthropathy Seronegative spondylitis Vitamin D deficiency Elevated C-reactive protein (CRP) Fibromyalgia Polyarthralgia Narcotic dependence Thrombocytopenia Carpal tunnel syndrome Sleep apnea Pre-op evaluation Hx of migraines BETSY on CPAP Pre-op evaluation HTN (hypertension), benign Insulin dependent type 1 diabetes mellitus Morbid obesity Shoulder dislocation Diabetes Surgical History Hx of colonoscopy History of esophagogastroduodenoscopy (EGD) Hx of hernia repair Hx of appendectomy Family History Family History Mother No problems noted. Brother No problems noted. Daughter No problems noted. Daughter No problems noted. Daughter No problems noted. Son No problems noted. Son No problems noted. 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 Oriented X3. No acute distress. Head: normocephalic, atraumatic. Eyes: Pupils equal, round and reactive to light. ENT: Pharynx normal. No tonsillar swelling or exudate. Neck: Normal inspection. No JVD apprecaited CVS: Normal heart rate and rhythm. Pulses normal. Respiratory: No respiratory distress. Breath sounds diminished throughout. Abdomen: morbidly obese, Soft and nontender. +BS x4 Back: no midline tenderness. soft tissue tendernes of the upper lumbar area. no CVA tenderness bilaterally. limited rotation due to pain Skin: Skin warm and dry. Normal skin color. Normal skin turgor. No rashes. Extremities: 2+ lower extremity edema, pitting, no calf tenderness. Neuro/psych: Oriented X 3. No motor deficit. No sensory deficit. CN II-XII intact. Normal speech and cognition. Medical Decision Making Medical Decision Making [facility] Narrative: 43 yo morbidly obese male presenting to the ER for evaluation of severe right lower back/flank pain for the last 1 week. he has soft tissue tenderness on exam, suspect MSK in nature. pain is worse with rotation. he has significant risks with his severe obesity. his pleuritic pain in his right lower lung is concerning for possible PE. he has chronic LE edema. HR 90s on arrival, not hypoxic. CTA done which showed no PE CT abd/pelvis also done which shows only fatty liver. UA without infection labs unremarkable chief of staff doctor used to discuss results and dx of MSK back pain, concern about his weight contributing to his chronic conditions. he expressed frustrations in the healthcare system, unable to adhere to bariatric surgery dietary recs. he was encouraged to continue weight loss attempts he has no red flag symptoms of LBP. will start on muscle relaxer. low back stretches and exercises provided stable for d/c home Differential Diagnosis Differential Diagnoses: The differential diagnosis associated with the presentation includes kidney stone, PE, pyelonephritits, hydronephrosis, MSK pain, muscle spasm, PNA Admission/Observation Consideration of admission/observation: Escalation of care including admission/observation considered Lab Data [facility] Lab Attestation statement: I reviewed the patient's lab results. mild anemia, thrombocytopenia 09/12/24 10:22 09/12/24 10:22 Labs: Lab Results 09/12/24 Range/Units 10:22 WBC 8.6 (4.8-10.8) X10*3/uL RBC 4.71 (4.60-5.80) X10*6/uL Hgb 13.3 L (14.0-18.0) g/dl Hct 40.1 L (42.0-52.0) % MCV 85.1 (80.0-98.0) fL MCH 28.2 (27.0-33.0) pg MCHC 33.2 (31.0-36.0) g/dl RDW 12.7 (11.0-16.0) % Plt Count 134 L (160-400) X10*3/uL MPV 11.7 (9.4-12.4) fL Immature Gran % (Auto) 0.5 H (0.0-0.4) % Neut % (Auto) 66.8 (45-73) % Lymph % (Auto) 24.5 (20-40) % [place] % (Auto) 6.1 (2-11) % Eos % (Auto) 1.6 (0-4) % Baso % (Auto) 0.5 (0-2) % Lymph # (Auto) 2.1 (1.2-4.9) X10*3/uL [place] # (Auto) 0.5 (0.1-1.2) X10*3/uL Eos # (Auto) 0.1 (0.0-0.4) X10*3/uL Baso # (Auto) 0.0 (0.0-0.2) X10*3/uL Abs Immat Gran (auto) 0.04 H (0.00-0.03) X10*3/uL Absolute Neuts (auto) 5.8 (2.0-8.3) x10*3/uL Absolute Nucleated RBC 0.000 (0.0-0.012) X10*3/uL Nucleated RBC % (auto) 0.0 (0.0-0.2) /100WBC Sodium 136 (135-145) mmol/L Potassium 4.1 (3.3-5.1) mmol/L Chloride 102 (96-108) mmol/L Carbon Dioxide 25 (22-29) mmol/L Anion Gap 13 (12-20) BUN 23 H (9-16) mg/dL Creatinine 1.18 (0.5-1.4) mg/dL Estim Creat Clear Calc 124.3 Estimated GFR > 60 Random Glucose 180 H (60-115) mg/dL Calcium 9.5 D (8.4-10.2) mg/dL Total Bilirubin 0.7 (0.0-1.0) mg/dL AST 24 (5-37) U/L ALT 22 (0-40) U/L Alkaline Phosphatase 75 (39-117) U/L Total Protein 7.8 (6.5-8.0) g/dL Albumin 3.9 (3.5-5.0) g/dL Urine Color Yellow Urine Appearance Clear Urine pH 5.5 (5.0-9.0) Ur Specific [place] 1.020 (1.005-1.025) Urine Protein 300 (3+) H (Neg-Trace) mg/dL Urine Glucose (UA) Negative (Negative) mg/dL Urine Ketones Negative (Negative) mg/dL Urine Blood Negative (Negative) Urine Nitrite Negative (Negative) Ur Leukocyte Esterase Negative (Negative) Urine RBC 0-2 (0-2) /HPF Urine WBC 0-5 (0-5) /HPF Ur Squamous Epith Cells 0-2 (0-2) /HPF Urine Bacteria None Seen (None Seen) Hyaline Casts 0-2 (0-2) /LPF Independent Interpretation I performed an independent interpretation of an: CT Scan Interpretation: CT scan without PE, no hydroneprhosis seen Radiology Impression Discussion of test interpretation with radiology: I have reviewed the radiologist's reading. Independent Historian Clinical information obtained from an independent historian. History obtained from or confirmed by: Spouse External Record Review External record reviewed: Outpatient record, Prior outpatient labs and Prior outpatient radiology Prescription Management I considered prescription management with: Pain Medication Chronic Conditions Patient?s care impacted by: Diabetes, Hypertension and Other (morbid obesity) Medications Administered Discontinued Medications Generic Name Dose Route Start Last Admin Trade Name Freq PRN Reason Stop Dose Admin Iohexol 100 ml 09/12/24 14:00 09/12/24 14:01 Iohexol 350 Mg/Ml 100 Ml Infus..Btl IV 09/12/24 14:01 65 ml ONCE ONE Administration Morphine Sulfate 4 mg 09/12/24 11:25 09/12/24 12:51 Morphine Sulfate 4 Mg/Ml Cartridge IVPUSH 09/12/24 11:26 4 mg ONCE ONE Administration Protocol Ondansetron HCl 4 mg 09/12/24 11:09/12/24 12:51 Ondansetron Hcl 4 Mg/2 Ml Vial IVPUSH 09/12/24 11:26 4 mg ONCE ONE Administration Critical Care Time Critical Care Time Critical Care Time: No Discharge Plan Discharge Clinical Impression: Acute lumbar myofascial strain Qualifiers: Encounter type: initial encounter Qualified Code(s): S39.012A - Strain of muscle, fascia and tendon of lower back, initial encounter Patient Disposition: Home, Self-Care Instructions: Low Back Strain (ED), Lower Back Exercises (ED) Additional Instructions: Your labs and urine tests today were unremarkable Your CT scans did not show any findings that would be causing your pain Your pain is most likely due to muscle strain and spasm. Limit bending, lifting or twisting. Use ice several times per day for 20 minutes at a time for the next 48 hours and then change to heat. Take medication as prescribed to help with pain and discomfort. Continue to do your best with weight loss. Follow up with your Primary Care Doctor this week. If you develop new or worsening symptoms call 911 or come back to the ER for further evaluation. Prescriptions: New cyclobenzaprine 10 mg tablet 10 mg PO TID PRN (Reason: muscle spasm) Qty: 14 0RF No Action meloxicam 15 mg tablet 15 mg PO DAILY 30 Days Qty: 30 0RF cholecalciferol (vitamin D3) 1,250 mcg (50,000 unit) capsule 1,250 mcg PO QWEEK Qty: 13 0RF lidocaine 5 % adhesive patch,medicated 1 patch topical DAILY PRN (Reason: pain) Qty: 15 0RF Rx Instructions: leave on most painful area for up to 12 hrs acetaminophen [Acetaminophen Extra Strength] 500 mg tablet 500 mg PO Q6H PRN (Reason: pain) Qty: 20 0RF buprenorphine-naloxone [Suboxone] 8-2 mg film 1 film sublingual TID insulin lispro [Humalog KwikPen Insulin] 100 unit/mL insulin pen 35 unit subcut TID lisinopril 40 mg tablet 40 mg PO DAILY Ozempic 0.25 mg or 0.5 mg (2 mg/3 mL) pen injector subcut atorvastatin 10 mg tablet 10 mg PO BEDTIME famotidine 20 mg tablet 20 mg PO BEDTIME gabapentin 100 mg capsule 100 mg PO BEDTIME Qty: 90 0RF Humira(CF) Pen 40 mg/0.4 mL pen injector kit 40 mg subcut Q2W Qty: 2 6RF insulin glargine [Lantus Solostar U-100 Insulin] 100 unit/mL (3 mL) insulin pen 55 unit subcut BEDTIME (DME) FreeStyle Casey 2 Sensor Kit See Rx Instructions .ROUTE Q2W Qty: 1 Rx Instructions: As directed betamethasone valerate 0.1 % cream topical ammonium lactate 12 % lotion topical zinc oxide [Diaper Rash] 40 % ointment topical clotrimazole 1 % cream topical BID ammonium lactate 12 % cream topical sodium,potassium,mag sulfates [Suprep Bowel Prep Kit] 17.5-3.13-1.6 gram recon soln See Rx Instructions PO .COMPLEX Qty: 354 0RF Rx Instructions: DILUTE as per instructions given fluoxetine 40 mg capsule 60 mg PO DAILY Interventions: ED Discharge Assessment Last Done: 09/12/24 14:48 Discharge Date/Time: 09/12/24 14:54 Print Language: Telugu
[2024-09-12 12:30] VITALS: BP 165/92; PULSE 60; RESP 16; TEMP 36.2; O2SAT 95
[2024-09-12] MEDS: ondansetron HCL 4 MG/2 ML VIAL IVPUSH (12:51)
[2024-09-12] MEDS: Morphine Sulfate 4 MG/ML CARTRIDGE IVPUSH (12:51)
--- OUTSIDE RECORDS SUMMARY | 2024-09-12 13:22 | XMS_ITS | Clinical Summary ---
Author Organization [facility] Address [address] [place] [address] Phone Care Team Providers Care Molder Wax Ball Name Role Phone Naheed Zaman NP Primary Care Provider [phone] Allergies Active Allergy Reactions Criticality Noted Date [...] Diagnosed Date Morbid obesity with BMI of 6 0.0-69.9, adult ([facility] V24, [facility] V28) 04/17/2024 Acquired pes planus 05/11/2017 Pure hypercholesterolemia 05/10/2017 Pulmonary hypertension ([facility] V24, [facility] V28 ) 05/10/2017 Overview (04/17/2024): Mild, ECHO 10/21/10 C, EF 65-70% HTN (hypertension) 05/10/2017 H. pylori infection 05/10/2017 Overview (04/17/2024): + serology 08/07/2009, uncertain if treated Gout 05/10/2017 Elevated liver enzymes 05/10/2017 Overview (04/17/2024): fatty liver DJD (degenerative joint disease) 05/10/2017 Overview (04/17/2024): Mild L knee, Mod L shoulder arthropathy Asthma 05/10/2017 Proteinuria 04/30/2017 DM (diabetes mellitus), type 2 with renal complications ([facility] V24, [facility] V28) 04/30/2017 Spondylosis of lumbar region without myelopathy or radiculopathy 04/26/2017 Overview (04/17/2024): Saw [facility] BETSY (obstructive sleep apnea) 04/26/2017 Overview (04/17/2024): Polysomnography 08/05/2009, [facility] :On cpap 14 cm H2O 10/23/2017 Home Sleep Study insufficient data. 08/2018 - Pulm ordered split night study. Diabetes mellitus type 2 wit h neurological manifestations ([facility] V24, [facility] V28) 04/26/2017 CTS (carpal tunnel syndrome) 04/26/2017 Immunizations Name Administration Dates Next Due Influenza [...] (diabetes mellitus), type 2 with renal complications ([facility] V24, [facility] V28) 04/30/2017 DX:DM (diabetes mellitus), t ype 2 with renal complications (HCC) Proteinuria 04/30/2017 DX:Proteinuria Diabetes mellitus type 2 wit h neurological manifestations ([facility] V24, [facility] V28) 04/26/2017 DX:Diabetes mellitus type 2 with neurological manifestations (HCC) Asthma 05/10/2017 DX:Asthma Elevated liver enzymes 05/10/2017 DX:Elevat ed liver enzymes; COMMENT: fatty liver Gout 05/10/2017 DX:Gout H. pylori infection 05/10/2017 DX:H. 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 DX:History of acute post-streptococcal glomerulonephritis; COMMENT: Hospitalized [facility] with anasarca/ KUNAL 2010, streptolysin titer 1060, kidney bx, Followed in past by Dr Zapata, NSAIDS not recommended HTN (hypertension) 05/10/2017 DX:HTN (hyper tension) Morbid obesity with BMI of 6 0.0-69.9, adult ([facility] V24, [facility] V28) 04/26/2017 DX:Morbid obesity wit h BMI of 60.0-69.9, adult ([facility]) BETSY (obstructive sleep apnea) 04/26/2017 DX :BETSY (obstructive sleep apnea); COMMENT: Polysomnography 08/05/2009, [facility] :On cpap 14 cm H2O Pulmonary hypertension ([facility] V24, [facility] V28) 05/10/2017 DX:Pulmonary hypertension ([facility]); COMMENT: Mild, ECHO 10/21/10 [facility], EF 65-70% Otherwise normal altho suboptimal views, [...] egion without myelopathy or radiculopathy; COMMENT: Saw [facility] Family History Medical History Relation Name [...] 06/03/2024 3:01 PM EST Plan of Treatment Health Maintenance Due Date [...] Vaccine (2023-2 5 season) 2024 12/29/2020, 12/10/2020 Diabetes: Blood Sugar Contro l Test (HGBA1C) 10/22/2024 04/24/2024, 02/27/2020 Depression Screening 01/18/2025 01/19/2024 Influenza Vaccine (Season Ended) 2025 02/27/2012, 01/27/2011 Diabetes: Annual GFR (Glomerular Filtration Rate) 05/16/2025 [...] age to complete this topic Meningococcal B Vaccine Aged Out No l onger eligible based on patient's age to complete [...] Ratio (02/27/2020) Urine Albumin Creatinine Ratio Abstracted [facility] Provider HEALTH MAINTENANCE Final Result * Annual BMP Blood Test (02/27/2020) Annual BMP Blood Test Abstracted Result [facility] Provider HEALTH MAINTENANCE Final Result * (ABNORMAL) Hemoglobin A1c (02/27/2020) Pathologist [facility] Hemoglobin A1C 6.9(A) <=6.5 % Blood Venous blood specimen / Unknown Result [facility] Provider LAB BLOOD ORDERABLES Brunilda l Result * Lipid panel (02/27/2020) LDL/HDL Ratio 3 0 - 4 Triglycerides 91 0 - 150 mg/dL Cholesterol 145 0 - 200 mg/dL HDL 58 >=40 mg/dL LDL Cholesterol 69 0 - 100 mg/dL Blood Venous blood specimen / Unknown Result [facility] Provider LAB BLOOD ORDERABLES Brunilda l Result * Hepatitis C Screening (06/22/2017) Hepatitis C Screening Abstracted us Historical Provider HEALTH MAINTENANCE Final Result from Last 3 Months or Most Recently Relevant to Health Maintenance Insurance MEDICAID - [place] Care Teams Molder Wax Ball Relationship Specialty Start Date End Date Naheed Zaman NP [address] [place] [phone] PCP - General 02/21/24
--- OUTSIDE RECORDS SUMMARY | 2024-09-12 13:22 | XMS_ITS | Encounter Summary ---
Author Organization [employer] Address [address] [facility] [address] [place] [address] Care Team Providers Care Entertainer & Comic Name Role Phone Sofia Mitchell JOSIAH Primary Care Provider [phone] Encounter Details Date Type Department Care Team ([facility] st Contact Info) Description 09/12/2024 Orders Only [facility] External Provider, [facility] Social History Tobacco Use Types Packs/Day Years [...] Description 09/19/2024 3:00 PM EDT Office Visit [facility] [address] [place] [address] Rut Branham MD [address] [place] [address] 09/27/2024 2:45 PM EDT Office Visit [address] [address] Omar Cortes MD [address] [place] [address] 10/08/2024 1:00 PM EDT Office Visit [address] [address] Sofia Mitchell ANP [address] [place] [address] 12/12/2024 3:00 PM EDT Clinical Support [address] [address] Tristen Chen, APRIL [address] [place] [address] documented as of this encounter Procedures Procedure Name Priority Date/Time Associated Diagnosis Comments URINALYSIS, COMPLETE, WITH REFLEX TO CULTURE Routine 09/12/2024 10:22 AM EDT CBC WITH AUTO DIFFERENTIAL Routine 09/12/2024 10:22 AM EDT COMPREHENSIVE METABOLIC PANEL Routine 09/12/2024 10:22 AM EDT XR CHEST 1 VIEW Routine 09/12/2024 10:10 AM EDT documented in this encounter Results * (ABNORMAL) Comprehensive Metabolic Panel (09/12/2024 10:22 AM EDT) Sodium 136 135 - 145 mmol/L [facility] Potassium 4.1 3.3 - 5.1 mmol/L [facility] Chloride 102 96 - 108 mmol/L [facility] Carbon Dioxide 25 22 - 29 mmol/L [facility] Anion Gap 13 12 - 20 [facility] Urea Nitrogen (BUN) 23(H) 9 - 16 mg/dL [facility] Creatinine, Serum 1.18 0.5 - 1.4 mg/dL [facility] Creatinine Clr Calc Pharmacy 124.3 [facility] Comment:eGFR (calculated fro m the MDRD study equation) and eCrCl(calculated from the Cockcroft-Gault equation) are based ondifferent parameters and may not yield comparable results.If eCrCl result is absurd, please check patient'sheight/weight. Estimated Glomerular Filt Rate >60 [facility] Comment:Chronic Kidney Disea se: Estimated GFR < 60 mL/min/1.26a7Spiqjt Kidney Disease: Estimated GFR < 15 mL/min/1.73m2 Glucose 180(H) 60 - 115 mg/dL [facility] Calcium 9.5 8.4 - 10.2 mg/dL [facility] Bilirubin, Total 0.7 0.0 - 1.0 mg/dL [facility] Aspartate Amino Transferase 24 5 - 37 U/L [facility] Alanine Aminotransferase 22 0 - 40 U/L [facility] Total Protein 7.8 6.5 - 8.0 g/dL [facility] Albumin Level 3.9 3.5 - 5.0 g/dL [facility] Alkaline Phosphatase 75 39 - 117 U/L [facility] 09/12/2024 10:2 2 AM EDT 09/12/2024 10:31 AM EDT us Generic External Data Provider LAB BLOOD ORDERAB LES Final Result [facility] [address] [place], [place] [phone] * (ABNORMAL) CBC auto differential (09/12/2024 10:22 AM EDT) White Blood Count 8.6 4.8 - 10.8 X10*3/uL [facility] Red Blood Count 4.71 4.60 - 5.80 X10*6/uL [facility] Hemoglobin 13.3(L) 14.0 - 18.0 g/dl [facility] Hematocrit 40.1(L) 42.0 - 52.0 % [facility] Mean Corpuscular Volume 85.1 80.0 - 98.0 fL [facility] Mean Corpuscular Hemoglobin 28.2 27.0 - 33.0 pg [facility] Mean Corpuscular HGB Conc 33.2 31.0 - 36.0 g/dl [facility] Red Cell Distribution Width 12.7 11.0 - 16.0 % [facility] Platelet Count 134(L) 160 - 400 X10*3/uL [facility] Mean Platelet Volume 11.7 9.4 - 12.4 fL [facility] Neutrophils Percent Auto 66.8 45 - 73 % [facility] Imm Gran Pct Auto 0.5(H) 0.0 - 0.4 % [facility] Lymphocytes Percent Auto 24.5 20 - 40 % [facility] Monocytes Percent Auto 6.1 2 - 11 % [facility] Eosinophils Percent Auto 1.6 0 - 4 % [facility] Basophils Percent Auto 0.5 0 - 2 % [facility] NRBC Pct Auto 0.0 0.0 - 0.2 /100WBC [facility] Neutrophils Absolute Auto 5.8 2.0 - 8.3 x10*3/uL [facility] Imm Gran Abs Auto 0.04(H) 0.00 - 0.03 X10*3/uL [facility] Lymphocytes Absolute Auto 2.1 1.2 - 4.9 X10*3/uL [facility] Monocytes Absolute Auto 0.5 0.1 - 1.2 X10*3/uL [facility] Eosinophils Absolute Auto 0.1 0.0 - 0.4 X10*3/uL [facility] Basophils Absolute Auto 0.0 0.0 - 0.2 X10*3/uL [facility] NRBC Abs Auto 0.000 0.0 - 0.012 X10*3/uL [facility] 09/12/2024 10:2 2 AM EDT 09/12/2024 10:31 AM EDT us Generic External Data Provider LAB BLOOD ORDERAB LES Final Result [facility] [address] [place] [phone] * (ABNORMAL) Urinalysis, Complete, with Reflex to Culture (09/12/2024 10:22 AM EDT) Color Urine Yellow [facility] Appearance Urine Clear [facility] PH 5.5 5.0 - 9.0 [facility] Glucose Urine UA Negative Negative mg/dL [facility] Urine Blood Negative Negative [facility] Specific [place] - Urine 1.020 1.005 - 1.025 [facility] Urine Protein 300 (3+)(A) Neg-Trace mg/dL [facility] Urine Ketones Negative Negative mg/dL [facility] Nitrite Urine Negative Negative [facility] Leukocyte Esterase Urine Negative Negative [facility] RBC Urine 0-2 0 - 2 /HPF [facility] Urine WBC 0-5 0 - 5 /HPF [facility] Urine Squamous Epithelial Cell 0-2 0 - 2 /HPF [facility] Urine Bacteria None Seen None Seen [facility] Hyaline Casts, Urine 0-2 0 - 2 /LPF [facility] 09/12/2024 10:2 2 AM EDT 09/12/2024 10:31 AM EDT Narrative [facility] - 09/12/2024 10:40 AM EDT Urine, Clean Catch us Generic External Data Provider LAB URINE ORDERAB LES Final Result [facility] [address] [place] [phone] * XR Chest 1 View (09/12/2024 10:10 AM EDT) Anatomical Region Laterality Modality Chest Radiographic Luep ging 09/12/2024 10:1 0 AM EDT Narrative 09/12/2024 10:29 AM EDT ? [facility] ?[address] ?[place] [address] ?XRay Report ? Signed ? Patient: Ross Navarrete ?MR#: [id number] ?? [id number] ? : 1980 ?Acct:[id number] ? Age/Sex: 43 / M ?ADM Date: 09/12/24 ? Loc: HO.ED ? Attending Dr: ? Ordering Physician: Generic ED Physician ?? Date of Service: 09/12/24 ?? Procedure(s): XR chest 1V ?? Accession Number(s): [id number] ? cc: Generic ED Physician; SOFIA MITCHELL NP ? EXAMINATION: ??XR CHEST 1 VIEW ? HISTORY: SOB ? COMPARISON: Comparison is made with the prior examination dated ?? 08/06/2024. ? FINDINGS: ??A single PA portable view of the chest is submitted. The ?? lungs are expanded and clear. ??There is no pleural effusion, ?? pneumothorax, or pulmonary vascular congestion. ??The heart is normal in ?? size. ??There is degenerative disc disease of the spine. ? XR/XR chest 1V ?? IMPRESSION: ?? No acute cardiopulmonary abnormality. ? Electronically signed by: ??Gurinder Valdez MD ??09/12/2024 10:26 AM EDT ?? RP ? Dictated By: ?Gurinder Valdez MD ? Signed By: ?<Electronically signed by Gurinder Valdez MD in OV> ?09/12/24 1026 ? DD/ 1010 ? TD/TT: 09/12/24 1019 ? Spray Crew: ? Procedure Note Maria T Cronin - 09/12/[address] [address] XRay Report Signed Patient: Ross Navarrete LMR#: [id number] : 1980Acct:[id number] Age/Sex: 43 / MADM Date: 09/12/24 Loc: .ED Attending Dr: Ordering Physician: Generic ED Physician Date of Service: 09/12/24 Procedure(s): XR chest 1V Accession Number(s): [id number] cc: Generic ED Physician; SOFIA MITCHELL NP EXAMINATION: XR CHEST 1 VIEW HISTORY: SOB COMPARISON: Comparison is made with the prior examination dated 08/06/2024. FINDINGS: A single PA portable view of the chest is submitted. The lungs are expanded and clear. There is no pleural effusion, pneumothorax, or pulmonary vascular congestion. The heart is normal in size. There is degenerative disc disease of the spine. XR/XR chest 1V IMPRESSION: No acute cardiopulmonary abnormality. Electronically signed by: Gurinder Valdez MD 09/12/2024 10:26 AM EDT Dictated By: Gurinder Valdez MD Signed By: <Electronically signed by Gurinder Valdez MD in OV> 09/12/24 1026 DD/ 1010 TD/TT: 09/12/24 1019 Spray Crew: [facility] External Provider IMG XR PROCEDURES Final Result documented in this encounter Visit Diagnoses Not on filedocumented in this encounter Additional Health Concerns Assessment Noted Time PHQ-9 Depression Total Score: 01/18/ 024 8:12 AM EDT documented as of this encounter Care Teams Entertainer & Comic Relationship Specialty Start Date End Date Sofia Mitchell ANP [address] [place] [address] PCP - General Family Medicine 01/18/22 documented as of this encounter
--- OUTSIDE RECORDS SUMMARY | 2024-09-12 13:22 | XMS_ITS | Encounter Summary ---
Author Organization [facility] Address [address] [place] [address] [place], [place] [address] Care Team Providers Care Clinical Research Physician Name Role Phone Naheed Zaman Primary Care Provider [phone] Reason for Visit * Reason Comments Med Refill Encounter Details Date Type Department Care Team (Late st Contact Info) Description 02/02/2023 Refill [facility] [address] [place] [address] Rut Branham MD [address] [place] [address] Uncomplicated opioid dependence (CMS/HCC) Social History Tobacco [...] Description 09/19/2024 3:00 PM EDT Office Visit [facility] [address] [place] [address] Rut Branham MD [address] [place] [address] 09/27/2024 2:45 PM EDT Office Visit [address] [address] Omar Cortes MD [address] [place] [address] 10/08/2024 1:00 PM EDT Office Visit [address] [address] Naheed Zaman ANP [address] [place] [address] 12/12/2024 3:00 PM EDT Clinical Support [address] [phone] Tristen Chen, APRIL [address] [place] [address] documented as of this encounter Visit Diagnoses Diagnosis Uncomplicated opioid dependence (CMS/HCC) documented in this encounter Additional Health Concerns Assessment Noted Time PHQ-9 Depression Total Score: 6 11/19/19 23 3:29 PM EDT documented as of this encounter Care Teams Clinical Research Physician Relationship Specialty Start Date End Date Naheed Zaman ANP [address] [place] [address] PCP - General Family Medicine 01/18/22 documented as of this encounter
--- OUTSIDE RECORDS SUMMARY | 2024-09-12 13:22 | XMS_ITS | Encounter Summary ---
Author Organization [employer] Address [address] [facility] 7[address] [place] [address] Care Team Providers Care Distance Learning Technician Name Role Phone Naheed Zaman Primary Care Provider [phone] Reason for Visit * Reason Onset Date Comments callback requested 04/23/2024 Encounter Details Date Type Department Care Team ([facility] st Contact Info) Description 04/23/2024 Telephone [facility] [address] [place] [address] Naheed Zaman ANP [address] [place] [address] callback requested Social History Tobacco Use Types [...] returning call to Madie Wesley Callback number [phone] documented in this encounter Plan of Treatment Upcoming Encounters Date Type Department Care Team (Late st Contact Info) Description 09/19/2024 3:00 PM EDT Office Visit [facility] [address] [place] [address] Rut Branham MD [address] [place] [address] 09/27/2024 2:45 PM EDT Office Visit [facility] [address] [place] [address] Omar Cortes MD [address] [place] [address] 10/08/2024 1:00 PM EDT Office Visit [address] [address] Naheed Zaman ANP [address] [place] [address] 12/12/2024 3:00 PM EDT Clinical Support [facility] [address] [place] [address] Tristen Chen, RN [address] [place] [address] documented as of this encounter Visit Diagnoses Not on filedocumented in this encounter Additional Health Concerns Assessment Noted Time PHQ-9 Depression Total Score: 25 024 8:12 AM EDT documented as of this encounter Care Teams Distance Learning Technician Relationship Specialty Start Date End Date Naheed Zaman ANP [address] [place] [address] PCP - General Family Medicine 01/18/22 documented as of this encounter
--- OUTSIDE RECORDS SUMMARY | 2024-09-12 13:22 | XMS_ITS | Clinical Summary ---
Author Organization [employer] Address [address] [facility] [address] [place] [address] Care Team Providers Care Spiral Winding Machine Helper Name Role Phone Sofia Mitchell JOSIAH Primary Care Provider [phone] Allergies Active Allergy Reactions Criticality Noted Date Comments Shellfish Allergy 05/02/2022 Medications * This document contains information received from the source organization and may not represent a complete record from that organization. Alcohol Swabs (Alcohol Prep) 70 % pads USE FOUR TIMES DAILY WITH INSULIN Active Blood Glucose Monitoring Suppl (FreeStyle [place] Lite) w/Device kit TEST BLOOD SUGAR FOUR TIMES DAILY Active FREESTYLE LITE test strip TEST BLOOD SUGAR FOUR TIMES DAILY Active glucose blood (FREESTYLE LITE) test strip check fingerstick 4 times a day Active Sure Comfort Pen [place] 31G X 5 MM misc USE FOUR [...] Active beta carotene (vitamin A) 3 MG (96763 UT) capsule TAKE 2 CAPSULES BY MOUTH [...] Active Blood Pressure Monitor kitIndications:P ulmonary hypertension ([facility]) 1 kit in the morning. 1 kit 024 Active metoclopramide (Reglan) 10 MG tablet 1 tablet as needed every 6 hrs for nausea/vomiting 40 tablet 024 Active atorvastatin (Lipitor) 10 MG tabletIndication s:Type 2 diabetes mellitus with hyperlipidemia ([facility]/HCC) ([facility]) Take 1 tablet (10 mg) by [...] use. 473 mL 024 Active Continuous Glucose Fire Coordinator (FreeStyle Casey 2 Douglas) deviceIndication s:Diabetes mellitus with albuminuria (CMS/HCC) ([facility]) Scan sensor every 8 hours 1 each 024 Active Continuous Glucose Sensor (FreeStyle Casey 2 Sensor) miscIndications: Diabetes mellitus with albuminuria (CMS/HCC) ([facility]) Apply 1 sensor every 14 days 2 each 024 Active glucose blood (FreeStyle Precision Lefty Test) test stripIndications :Diabetes mellitus with albuminuria (CMS/HCC) ([facility]) Use to test blood sugar 3 times daily 100 each 12 024 2024 Active glucose (BD Glucose) 5 g chewable tabletIndication s:Type 2 diabetes mellitus with hyperlipidemia ([facility]/HCC) ([facility]) Chew 3 tablets (15 g) if needed for low blood sugar. 50 tablet 5 024 2024 Active esomeprazole (NexIUM) [address] capsuleIndicatio ns:Gastroesophag eal reflux disease, unspecified whether esophagitis present Take 1 capsule (40 mg) by mouth before breakfast. Do not open capsule. 90 capsule 1 024 2024 Active semaglutide (Ozempic) 2 MG/1.5ML solution pen-injectorIndi cations:Type 2 diabetes mellitus with hyperlipidemia (CMS/HCC) ([facility]) 0.25 subcutaneous once weekly for 4 weeks, [...] diabetes mellitus with hyperlipidemia (CMS/HCC) ([facility]),Persis tent proteinuria Take 1 tablet (40 mg) by mouth Once per day. 90 tablet 1 025 Active betamethasone valerate (Valisone) 0.1 % [...] per day. 15 tablet 025 2024 Active Suboxone 8-2 MG SL filmIndications: Uncomplicated opioid dependence (CMS/HCC) Place 3 Film under the tongue Once per day. 84 Film 2 025 2024 Active FLUoxetine (PROzac) 20 MG [...] Reorder (will not trigger notification to Pharmacy)) Suboxone 8-2 MG SL filmIndications: Uncomplicated opioid dependence (CMS/HCC) Place 3 Film under the tongue Once per day. 84 Film 1 025 2024 Discontinued( Reorder (will not [...] Health Integration Plan Internal Follow up with [facility] Patient Self Plan Patient to reach out to [facility] team as needed, Comply with medication , and Patient to reach out to [facility] as needed Assessment & Plan (01/19/2024 8:43 AM EDT): PROGRESS NOTE: ID: Ross is a 43 y.o. straight-identified cis-male with previous documented hx of Depression, Anxiety, and Opioid Use Disorder No previous hx of services who presents for Depression, Anxiety, and Substance Use Disorder. During IB Consult Ross presenting with depressed mood, Tearful, [...] Health Integration Plan Internal Follow up with [facility] Patient Self Plan Patient to reach out to [facility] team as needed, Comply with medication , [...] Health Integration Plan Internal Follow up with [facility] Patient Self Plan Patient to utilize skills provided in intervention , Patient [facility] team as needed, and Patient to reach [...] Health Integration Plan Internal Follow up with [facility] External OP psychiatry Referral Patient Self Plan Patient to reach out to [facility] team as needed, Comply with medication , Patient to engage in OP therapy , and Patient to reach out to [facility] as needed Assessment & Plan (09/20/2023 10:06 AM EDT): New/Additional Services needed Off-site services for Behavioral Health Integration Plan External OP therapy referral Patient Self Plan Patient to utilize skills provided in intervention , Patient to reach out to [facility] team as needed, Comply with medication , [...] explained that she tried referring pt to [facility] and other centers and pt;s can not be evaluated for plastic surgery w current BMI -I request referral to be sent to [facility] but was explained is the same [...] hypertension 05/10/2017 Overview (07/28/2022): Mild, ECHO 10/21/10 [facility], EF 65-70% H. pylori infection 05/10/2017 Overview (07/28/2022): + serology 08/07/2009, uncertain if treated Gout 05/10/2017 Elevated liver enzymes 05/10/2017 Overview (07/28/2022): fatty liver Arthritis 05/10/2017 Overview (07/28/2022): Mild L knee, Mod L shoulder arthropathy Asthma 05/10/2017 Spondylosis of lumbar region without myelopathy or radiculopathy 04/26/2017 Overview (07/28/2022): Saw [facility] Rheumatology CTS (carpal tunnel syndrome) 04/26/2017 Assessment [...] sleep apnea) 05/18/2015 Overview (07/28/2022): Polysomnography 08/05/2009, [facility] :On cpap 14 cm H2O 10/23/2017 Home Sleep Study insufficient data. 08/2018 - Pulm ordered split night study. Proteinuria 05/18/2015 Encounters * This document contains information received from the source organization and may not represent a complete record from that organization. Date Type Department Care Team Description 09/12/2024 Orders Only [facility] External Provider, [facility] 09/09/2024 Refill [facility] [address] [place] [address] Rut Branham MD Uncomplicated opioid dependence (CMS/HCC) 08/23/2024 10:00 AM EDT Office Visit [facility] ADULT DENTAL [address] [place] [address] Zay Schmidt DDS History of tooth extraction, unspecified edentulism class (Primary Dx) 08/23/2024 Telephone [facility] [address] [place] [address], [place] [phone] Arlette Hill, RN DME Question 08/14/2024 Telephone [facility] [address], [place] [phone] Sofia Mitchell ANP [employer] (Bath tub wall rail) 08/09/2024 Population Health Risk Score Community [facility] ([facility] Department [address] [place] [address] [phone] Provider, Population Health Generic 08/06/2024 Telephone [facility] MED[facility] [address] [place] [phone] Sofia Mitchell ANP Prior Authorization (Ozempic) 08/06/2024 Telephone [facility] [address] [place] [phone] Sofia Mitchell ANP Durable Medical Equipment (Grab bars) 08/06/2024 Orders Only GENERIC EXTERNAL DATA DEPARTMENT Provider, Generic External Data 08/05/2024 Telephone [facility] [address] [place] [address] [phone] Sofia Mitchell ANP Nurse Triage 08/02/2024 Outside Procedure [facility] OPTOMETRY [address] [place] [phone] Gary Coreen, OD Presbyopia (Primary Dx) 08/01/2024 2:45 PM EST Office Visit [facility] OPTOMETRY [address] [place] [phone] GaryArik diasn, OD Hyperopia of both eyes (Primary Dx) 07/25/2024 3:00 PM EST Office Visit [facility] [address] [place] [phone] Rut Branham MD Opioid type dependence, continuous (CMS/HCC) (Primary Dx); Severe episode of recurrent major depressive disorder, without psychotic features (CMS/HCC) 07/25/2024 Travel 07/24/2024 Refill [facility] W[facility]IN [facility] [address] [place] [address] [phone] Verona Estrada MD Venous stasis dermatitis of both lower extremities 07/18/2024 Refill [facility] [address] [place] [address] [phone] Tristen Chen, APRIL Uncomplicated opioid dependence (CMS/HCC) 07/16/2024 Travel 07/12/2024 Telephone [facility] [address] [place] [phone] Sofia Mitchell ANP Prior Authorization (Ozempic) 07/10/2024 2:00 PM EST Office Visit [address] [address] Sofia Mitchell ANP Type 2 diabetes mellitus with hyperlipidemia ([facility]/HCC) (Primary Dx); MICHAEL (generalized anxiety disorder); Severe [...] knee, right, sequela 07/10/2024 Travel 07/10/2024 Telephone [facility] [address] [place] [phone] Anette Carrion MA Chart prep 07/09/[address] [address] Nikki Díaz RN Right shoulder X ray 07/03/2024 2:00 PM EST Office Visit [facility] WALK-IN [address] [address] Lyndsay Tariq NP Chronic right shoulder pain (Primary Dx); Elevated blood pressure reading in office with diagnosis of hypertension 07/03/2024 Orders Only GENERIC EXTERNAL DATA DEPARTMENT Provider, Generic External Data 07/03/2024 Travel 06/27/2024 11:15 AM EST Office Visit [facility] OPTOMETRY [address] [place] [address] Kaitlyn Burk, KVNG Type 2 diabetes mellitus without ophthalmic manifestations ([facility]/HCC) (Primary Dx); Presbyopia 06/27/2024 10:30 AM EST Clinical Support [address] [address] Tristen Chen, APRIL Opioid type dependence, continuous ([facility]/HCC) (Primary Dx) 06/27/2024 Travel 06/26/2024 Refill [facility] [address] [place] [phone] Heidy Taylor MD Chronic low back pain without sciatica, unspecified back pain laterality 06/21/2024 Telephone [facility] [address] [place] [phone] Sofia Mitchell ANP 06/18/2024 Refill [facility] [address] [place] [address] Tristen Chen, APRIL Uncomplicated opioid dependence (CMS/HCC) from Last 3 Months Immunizations Name [...] Office Visit [facility] [address] [place] [phone] Rut Branham MD [address] [place] [phone] 09/27/2024 2:45 PM EDT Office Visit [facility] [address] [place] [phone] Omar Cortes MD [address] [place] [phone] 10/08/2024 1:00 PM EDT Office Visit [facility] [address] [place] [phone] Sofia Mitchell ANP [address] [place] [address] 12/12/2024 3:00 PM EDT Clinical Support [facility] [address] [place] [address] Tristen Chen, RN [address] [place] [address] Health Maintenance Due Date Last Done Comments [...] Alcohol/Substance Use Screening 01/04/2025 01/05/2024 Depression Monitoring 01/07/2025 07/10/2024, 024 Diabetes: Hemoglobin A1C 01/07/2025 025, 04/24/2024, 02/13/2024, [...] Procedure Name Priority Date/Time Associated Diagnosis Comments COMPREHENSIVE METABOLIC PANEL Routine 09/12/2024 10:22 AM EDT CBC WITH AUTO DIFFERENTIAL Routine 09/12/2024 10:22 AM EDT URINALYSIS, COMPLETE, WITH REFLEX TO CULTURE Routine 09/12/2024 10:22 AM EDT XR CHEST 1 VIEW Routine 09/12/2024 10:10 AM EDT 23,24,25,26 MANDIBULAR PARTIAL DENTURE - RESIN BASE [...] AM EST Opioid type dependence, continuous (CMS/HCC) LIPID PANEL, STANDARD Routine 04/24/2024 11:23 AM EST HIV 1/2 ANTIGEN/ANTIBODY, FOURTH GENERATION W/RFL Routine 12/13/2023 11:48 AM EDT Elevated erythrocyte sedimentation rate 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) (CMS/HCC) from Last 3 Months or Most Recently Relevant to Health Maintenance Results * (ABNORMAL) Urinalysis, Complete, with Reflex to Culture (09/12/2024 10:22 AM EDT) Color Urine Yellow [facility] Appearance Urine Clear [facility] PH 5.5 5.0 - 9.0 [facility] Glucose Urine UA Negative Negative mg/dL [facility] Urine Blood Negative Negative [facility] Specific Marissa - Urine 1.020 1.005 - 1.025 [facility] Urine Protein 300 (3+)(A) Neg-Trace mg/dL [facility] Urine Ketones Negative Negative mg/dL [facility] Nitrite Urine Negative Negative [facility] Leukocyte Esterase Urine Negative Negative [facility] RBC Urine 0-2 0 - 2 /HPF [facility] Urine WBC 0-5 0 - 5 /HPF [facility] Urine Squamous Epithelial Cell 0-2 0 - 2 /HPF [facility] Urine Bacteria None Seen None Seen [facility] Hyaline Casts, Urine 0-2 0 - 2 /LPF [facility] 09/12/2024 10:2 2 AM EDT 09/12/2024 10:31 AM EDT Narrative [facility] - 09/12/2024 10:40 AM EDT Urine, Clean Catch us Generic External Data Provider LAB URINE ORDERAB LES Final Result [facility] [address] [place] [phone] * (ABNORMAL) CBC auto differential (09/12/2024 10:22 AM EDT) Only the most recent of2 resultswithin the time period is included. White Blood Count 8.6 4.8 - 10.8 X10*3/uL [facility] Red Blood Count 4.71 4.60 - 5.80 X10*6/uL [facility] Hemoglobin 13.3(L) 14.0 - 18.0 g/dl [facility] Hematocrit 40.1(L) 42.0 - 52.0 % [facility] Mean Corpuscular Volume 85.1 80.0 - 98.0 fL [facility] Mean Corpuscular Hemoglobin 28.2 27.0 - 33.0 pg [facility] Mean Corpuscular HGB Conc 33.2 31.0 - 36.0 g/dl [facility] Red Cell Distribution Width 12.7 11.0 - 16.0 % [facility] Platelet Count 134(L) 160 - 400 X10*3/uL [facility] Mean Platelet Volume 11.7 9.4 - 12.4 fL [facility] Neutrophils Percent Auto 66.8 45 - 73 % [facility] Imm Gran Pct Auto 0.5(H) 0.0 - 0.4 % [facility] Lymphocytes Percent Auto 24.5 20 - 40 % [facility] Monocytes Percent Auto 6.1 2 - 11 % [facility] Eosinophils Percent Auto 1.6 0 - 4 % [facility] Basophils Percent Auto 0.5 0 - 2 % [facility] NRBC Pct Auto 0.0 0.0 - 0.2 /100WBC [facility] Neutrophils Absolute Auto 5.8 2.0 - 8.3 x10*3/uL [facility] Imm Gran Abs Auto 0.04(H) 0.00 - 0.03 X10*3/uL [facility] Lymphocytes Absolute Auto 2.1 1.2 - 4.9 X10*3/uL [facility] Monocytes Absolute Auto 0.5 0.1 - 1.2 X10*3/uL [facility] Eosinophils Absolute Auto 0.1 0.0 - 0.4 X10*3/uL [facility] Basophils Absolute Auto 0.0 0.0 - 0.2 X10*3/uL [facility] NRBC Abs Auto 0.000 0.0 - 0.012 X10*3/uL [facility] 09/12/2024 10:2 2 AM EDT 09/12/2024 10:31 AM EDT us Generic External Data Provider LAB BLOOD ORDERAB LES Final Result [facility] [address] [place] [phone] * (ABNORMAL) Comprehensive Metabolic Panel (09/12/2024 10:22 AM EDT) Sodium 136 135 - 145 mmol/L [facility] Potassium 4.1 3.3 - 5.1 mmol/L [facility] Chloride 102 96 - 108 mmol/L [facility] Carbon Dioxide 25 22 - 29 mmol/L [facility] Anion Gap 13 12 - 20 [facility] Urea Nitrogen (BUN) 23(H) 9 - 16 mg/dL [facility] Creatinine, Serum 1.18 0.5 - 1.4 mg/dL [facility] Creatinine Clr Calc Pharmacy 124.3 [facility] Comment:eGFR (calculated fro m the MDRD study equation) and eCrCl(calculated from the Cockcroft-Gault equation) are based ondifferent parameters and may not yield comparable results.If eCrCl result is absurd, please check patient'sheight/weight. Estimated Glomerular Filt Rate >60 [facility] Comment:Chronic Kidney Disea se: Estimated GFR < 60 mL/min/[id number] Kidney Disease: Estimated GFR < 15 mL/min/1.73m2 Glucose 180(H) 60 - 115 mg/dL [facility] Calcium 9.5 8.4 - 10.2 mg/dL [facility] Bilirubin, Total 0.7 0.0 - 1.0 mg/dL [facility] Aspartate Amino Transferase 24 5 - 37 U/L [facility] Alanine Aminotransferase 22 0 - 40 U/L [facility] Total Protein 7.8 6.5 - 8.0 g/dL [facility] Albumin Level 3.9 3.5 - 5.0 g/dL [facility] Alkaline Phosphatase 75 39 - 117 U/L [facility] 09/12/2024 10:2 2 AM EDT 09/12/2024 10:31 AM EDT us Generic External Data Provider LAB BLOOD ORDERAB LES Final Result [facility] [address] [facility] [place] [phone] * XR Chest 1 View (09/12/2024 10:10 AM EDT) Only the most recent of2 resultswithin the time period is included. Anatomical Region Laterality Modality Chest Radiographic Lupe ging 09/12/2024 10:1 0 AM EDT Narrative 09/12/2024 10:29 AM EDT ? [facility] ?[address] ?[place] [address] ?XRay Report ? Signed ? Patient: Navarrete,Ross L ?MR#: [id number] ?? [id number] ? : 1980 ?Acct:[id number] ? Age/Sex: 43 / M ?ADM Date: 09/12/24 ? Loc: HO.ED ? Attending Dr: ? Ordering Physician: Generic ED Physician ?? Date of Service: 09/12/24 ?? Procedure(s): XR chest 1V ?? Accession Number(s): [id number] ? cc: Generic ED Physician; SOFIA MITCHELL [...] DD/ 1010 ? TD/TT: 09/12/24 1019 ? Admitting Supervisor: ? Procedure Note Donotuseinterpreter, Image - 09/12/[address] [address] XRay Report Signed Patient: Ross Navarrete LMR#: [id number] : 1980Acct:[id number] Age/Sex: 43 / MADM Date: 09/12/24 Loc: HO.ED Attending Dr: Ordering Physician: Generic ED Physician Date of Service: 09/12/24 Procedure(s): XR chest 1V Accession Number(s): [id number] cc: Generic ED Physician; SOFIA MITCHELL CHECK PILOT EXAMINATION: XR CHEST 1 VIEW HISTORY: SOB [...] 09/12/24 1026 DD/ 1010 TD/TT: 09/12/24 1019 Admitting Supervisor: [facility] External Provider IMG XR PROCEDURES Final Result * SARS-CoV-2 RNA, Influenza A/B, and RSV RNA, Ql NAAT (08/06/2024 12:26 PM EDT) Influenza A PCR NEGATIVE Negative [facility] Influenza B PCR NEGATIVE Negative [facility] Resp Syncy Virus RNA Qual PCR NEGATIVE Negative [facility] SARS COV2 PCR NEGATIVE Negative [facility] Comment:All test results mus t be [...] use by authorized laboratories.Testing performed on the [employer] GeneXpert utilizingreal-time RT-PCR.All SARS CoV2 and positive influenza A/B results arereported to [facility]. 08/06/2024 12:2 6 PM EDT 08/06/2024 12:28 PM EDT Generic External Data Provider LAB MICROBIOLOGY - GENERAL ORDERABLES Final Result Performing Organization Address [facility] Co de Phone Number [facility] [address] [place] [phone] * Prothrombin Time-INR (08/06/2024 10:13 AM EDT) Prothrombin Time 11.7 10.9 - 12.4 SEC [facility] INTERNATIONAL NORM RATIO 1.0 0.9 - 1.1 [facility] Comment:INTERNATIONAL NORMAL IZED RATIO (INR) REFERENCE [...] Final Result Performing Organization Address [facility] [[email or web address]] de Phone Number [facility] [address] [place] [phone] * POCT RAMSES-14 Urine Drug Screen (07/25/2024 2:14 PM EST) Only the most recent of2 resultswithin the time period is included. Urine Urine specimen obtained by clean catch procedure / Unknown 07/25/2024 2:14 PM EST us Rut Branham MD POINT OF CARE TEST ENTER/YI T ORDERABLES Final Result * (ABNORMAL) POCT HGB A1C (07/10/2024 2:05 PM EST) [facility] Hemoglobin A1C 6.7(A) 4.0 - 6.0 % QC Media Lot # [id number] Lot# Expiration Date Blood 07/10/2024 2:05 PM EST us Sofia RAHMAN POINT OF CARE TEST ENTER/EDIT OR DERABLES Final Result * POCT Glucose (07/10/2024 2:02 PM EST) [facility] Glucose Blood, POC 127 60 - 200 mg/dL QC Media Lot # [id number] Lot# Expiration Date Blood Capillary blood specimen / Unknown 07/10/2024 2:02 PM EST us Sofia RAHMAN POINT OF CARE TEST ENTER/EDIT OR DERABLES Final Result * T-SPOT??.TB (07/03/2024 1:30 PM EST) [facility] T Spot TB Negative Negative [facility] Comment:A negative test resu lt does [...] as aquantitative test. TS PANEL A 0 [facility] TS PANEL B 0 [facility] Negative Control Passed [facility] Positive Control Passed [facility] Comment:For additional infor zheng, please refer [email or web address].MyMiniLife/faq/SPV101(This link is being provided for informational/educational purposes only.)THIS TEST WAS PERFORMED AT:[employer] [id number] [place] [address]PRCVKGLMINI NICOLAS MD,PHD 07/03/2024 1:30 PM EST 07/03/2024 4:16 PM EST Generic External Data Provider LAB BLOOD ORDERAB LES Final Result [facility] [address] [place] [phone] * Hepatitis Panel, General (07/03/2024 1:30 PM EST) Hepatitis A IgM Nonreactive Nonreactive [facility] Comment:IgM antibodies to MONTERO V not detected; does not exclude earlyacute or recovered HAV infection. ~Hepatitis B Surface Antibody NONREACTIVE Nonreactive [facility] Comment:Nonreactive: < 8.00 mIU/mL Hepatitis B Core Antibody Nonreactive Nonreactive [facility] Hepatitis C Antibody Nonreactive Nonreactive [facility] Comment:Antibodies to HCV no t detected; does not exclude early acuteHCV infection. Hepatitis B Surface Ag Negative Negative [facility] 07/03/2024 1:30 PM EST 07/03/2024 4:16 PM EST us Generic External Data Provider LAB BLOOD ORDERAB LES Final Result [facility] [address] [place] [phone] * (ABNORMAL) Drug Monitoring, Panel 1, Screen, Urine (07/03/2024 1:30 PM EST) Opiate Screen Urine Not Detected Not Detect [facility] Comment:Opiate cut-off is 30 0 ng/mL.Positive results are unconfirmed and should not be used fornon-medical purposes. Barbiturates, Urine Not Detected Not Detect [facility] Comment:Barbiturate cut-off is 200 ng/mL.Positive results are unconfirmed and should not be used fornon-medical purposes. Phencyclidine Screen Urine Not Detected Not Detect [facility] Comment:Phencyclidine cut-of f is 25 ng/mL.Positive results are unconfirmed and should not be used fornon-medical purposes. Amphetamine Screen Urine Not Detected Not Detect [facility] Comment:Amphetamine cut-off is 1000 ng/mL.Positive results are unconfirmed and should not be used fornon-medical purposes. Benzodiazepines Screen Urine Not Detected Not Detect [facility] Comment:Benzodiazepine cut-o ff is 200 ng/mL.Positive results are unconfirmed and should not be used fornon-medical purposes. Cocaine Screen Urine Not Detected Not Detect [facility] Comment:Cocaine cut-off is 3 00 ng/mL.Positive results are unconfirmed and should not be used fornon-medical purposes. Cannabinoid Screen Urine POSITIVE(A) Not Detect [facility] Comment:Cannabinoid cut-off is 50 ng/mL.Positive results are unconfirmed and should not be used fornon-medical purposes. Methadone Screen, Urine Not Detected Not Detect ng/mL [facility] Comment:Methadone cut-off is 300 ng/mL.Positive results are unconfirmed and should not be used fornon-medical purposes. FENTANYL URINE Not Detected Not Detect [facility] Comment:Fentanyl cut-off is 1 ng/mL.Positive results are unconfirmed and should not be used fornon-medical purposes. Oxycodone Urine Screen Not Detected Not Detect ng/mL [facility] Comment:Oxycodone cut-off is 100 ng/mL.Positive results are unconfirmed and should not be used fornon-medical purposes. Buprenorphine Screen Positive(A) Not Detect ng/mL [facility] Comment:Buprenorphine cut-of f is 5 ng/mL.Positive results are unconfirmed and should not be used fornon-medical purposes. Urine (Urine, Random) 07/03/2024 1:30 PM EST 07/03/2024 4:16 PM EST us Jermaine Suárez PMHNP LAB URINE ORDERABLES Final Re sult Performing Organization Address City/[facility]/ZIP Co de Phone Number [facility] [address] [place] [phone] * Lipid Panel, Standard (04/24/2024 11:23 AM EST) Triglycerides 132 <150 mg/dL [facility] Comment:Desirable Triglyceri de: less than 150 mg/dLBorderline High Triglyceride 150-199 mg/dLHigh Triglyceride: 200-499 mg/dLVery High Triglyceride: greater than or equal to 5OO mg/dL Cholesterol 165 <200 mg/dL [facility] Comment:Desirable Cholestero l: less than 200 mg/dLBorderline High Cholesterol: 200-239 mg/dLHigh Cholesterol: greater than 239 mg/dL LDL Cholesterol Calculated 91 <100 mg/dL [facility] Comment:Desirable LDL: less than 100 mg/dLNear Optimal/Above Optimal LDL: 110- 129 mg/dLBorderline High LDL: 130-159 mg/dLHigh LDL: 160-189 mg/dLVery High LDL: greater than or equal to 190 mg/dL HDL Cholesterol 48 >40 mg/dL [facility] Comment:Desirable HDL: great er than 40 mg/dL Note: This HDL assay may give artificially low results in patients with liver disease. 04/24/2024 11:2 3 AM EST 04/24/2024 11:23 AM EST us Generic External Data Provider LAB BLOOD ORDERAB LES Final Result [facility] [address] [place] [phone] * HIV-1/2 Antigen and Antibodies, Fourth Generation, with Reflexes (12/13/2023 11:48 AM EDT) HIV AB/AG Nonreactive Nonreactive [facility] Comment:HIV-1 p24 Ag and/or HIV-1/HIV-2 Ab not detected.A test result that is nonreactive does not exclude thepossibility of exposure to or infection with HIV-1 and/orHIV-2. Nonreactive results in this assay for individualswith prior exposure to HIV-1 and/or HIV-2 may be due toantigen and antibody levels that are below the limit ofdetection of this assay.The [employer] HIV Ag/Ab Combo assay result andsupplemental assay results should be interpreted inconjunction with the patient's clinical presentation,history and other laboratory results. If the results areinconsistent with clinical evidence, additional testing issuggested to confirm the result. Blood Venous blood specimen / Unknown 12/13/2023 11:48 AM EDT 12/13/2023 12:[address] [facility] BLOOD ORDERABLES Final Resul t [facility] [address] [place] [phone] from Last 3 Months or Most Recently Relevant to Health Maintenance [facility] [employer] ADULT Care Teams Spiral Winding Machine Helper Relationship Specialty Start Date End Date Sofia Mitchell ANP [address] [place] [address] PCP - General Family Medicine 01/18/22
--- OUTSIDE RECORDS SUMMARY | 2024-09-12 13:22 | XMS_ITS | Encounter Summary ---
Author Organization [employer] Address [address] [facility] 7 [place] [address] Care Team Providers Care Restaurant Host/Hostess Name Role Phone Junie Naheed RAHMAN Primary Care Provider [phone] Reason for Visit * Reason Onset Date Comments Med Refill 09/09/2024 Encounter Details Date Type Department Care Team (Late st Contact Info) Description 09/09/2024 Refill [facility] MED[facility] [address] [place] [address] Rut Branham MD [address] [place] [address] Uncomplicated opioid dependence (CMS/HCC) Social History Tobacco [...] Description 09/19/2024 3:00 PM EDT Office Visit [address] [address] Rut Branham MD [address] [place] [address] 09/27/2024 2:45 PM EDT Office Visit [address] [address] Omar Cortes MD [address] [place] [address] 10/08/2024 1:00 PM EDT Office Visit [address] [address] Naheed Zaman ANP [address] [place] [address] 12/12/2024 3:00 PM EDT Clinical Support [address] [address] Tristen Chen, APRIL [address] [place] [address] documented as of this encounter Visit Diagnoses Diagnosis Uncomplicated opioid dependence (CMS/HCC) documented in this encounter Additional Health Concerns Assessment Noted Time PHQ-9 Depression Total Score: 25 024 8:12 AM EDT documented as of this encounter Care Teams Restaurant Host/Hostess Relationship Specialty Start Date End Date Naheed Zaman ANP [address] [place] [address] PCP - General Family Medicine 01/18/22 documented as of this encounter
--- OUTSIDE RECORDS SUMMARY | 2024-09-12 13:22 | XMS_ITS | Clinical Summary ---
Author Organization [facility] Address [address] [place] [address] Care Team Providers Care Bingo Clerk Name Role Phone Unavailable Primary Care Provider [...] major depressive disorder, with psychotic features ([facility]) 06/10/2024 Assessment & Plan (06/18/2024 11:18 AM EST): Patient refused to be seen, [place] steam clothes press operator was notified. Assessment & Plan (06/10/2024 5:36 [...] connected on video call until arrival of [place] Police with recommendation to section patient to [...] - 19 + 3-dose series) 11/14/2023 10/17/2023 [id number] (2023- season) 01/28/202412/29/2 021, 12/10/2020 Imm-Influenza (#1) 2024 02/27/2012, 01/27/2011 Alcohol and Drug Screen 05/29/2024 Diabetes Screening 05/16/2025 05/16/2024, 1 06/24/2023, 04/24/2024, Additional history exists Lipid Screening 04/24/2029 04/24/2024, 05/29, 02/27/2020 Imm-DTaP/Tdap/Td (3 - Td or Tdap) 10/16/2033 024, 03/15/2011 Hepatitis C Screening Completed 10/11/2023 HIV Screening Completed 12/13/2023, 11/26, 12/16/2021 Insurance [facility] [place] MEDICA[place]
--- OUTSIDE RECORDS SUMMARY | 2024-09-12 13:22 | XMS_ITS | Encounter Summary ---
Author Organization [employer] Address [address] [facility] 7t [place] [address] Care Team Providers Care Sample Stitcher Name Role Phone Naheed Zaman Primary Care Provider [phone] Encounter Details Date Type Department Care Team (Latest Contact Info) Description 12/29/2021 Abstract [facility] CONVERSIONS Dental, Provider, DDS Social [...] 3:00 PM EDT Office Visit [facility] MEDICINE [address] [place] [address] Rut Branham MD [address] [place] [address] 09/27/2024 2:45 PM EDT Office Visit [facility] MEDICINE [address] [place] [address] Omar Cortes MD [address] [place] [address] 10/08/2024 1:00 PM EDT Office Visit [facility] MEDICINE [address] [place] [address] Naheed Zaman ANP [address] [place] [address] 12/12/2024 3:00 PM EDT Clinical Support [facility] MEDICINE [address] [place] [address] Tristen Chen, RN [address] [place] [address] documented as of this encounter Visit Diagnoses Not on filedocumented in this encounter Care Teams Sample Stitcher Relationship Specialty Start Date End Date Naheed Zaman ANP [address] [place] [address] PCP - General Family Medicine 01/18/22 documented as of this encounter
--- OUTSIDE RECORDS SUMMARY | 2024-09-12 13:22 | XMS_ITS | Encounter Summary ---
Author Organization [employer] Address [address] [facility] 7t [place] [address] Care Team Providers Care Shoe Repairer Apprentice Name Role Phone Naheed Zaman JOSIAH Primary Care Provider [phone] Reason for Visit * Reason Comments Med Refill Encounter Details Date Type Department Care Team ([facility] st Contact Info) Description 09/14/2023 Refill [facility] MEDICINE [address] [place], [place] [phone] Dayna Cardenas MD 230 [place], [place] [phone] Uncomplicated opioid dependence (CMS/HCC) Social History Tobacco [...] 09/19/2024 3:00 PM EDT Office Visit [address] [address] Rut Branham MD [address] [place] [address] 09/27/2024 2:45 PM EDT Office Visit [address] [address] Omar Cortes MD [address] [place] [address] 10/08/2024 1:00 PM EDT Office Visit [address] [address] Naheed Zaman ANP [address] [place] [address] 12/12/2024 3:00 PM EDT Clinical Support [address] [address] Tristen Chen, APRIL [address] [place] [address] documented as of this encounter Visit Diagnoses Diagnosis Uncomplicated opioid dependence (CMS/HCC) documented in this encounter Additional Health Concerns Assessment Noted Time PHQ-9 Depression Total Score: 6 11/19/19 23 3:29 PM EDT documented as of this encounter Care Teams Shoe Repairer Apprentice Relationship Specialty Start Date End Date Naheed Zaman ANP [address] [place] [address] PCP - General Family Medicine 01/18/22 documented as of this encounter
--- OUTSIDE RECORDS SUMMARY | 2024-09-12 13:22 | XMS_ITS | Encounter Summary ---
Author Organization [employer] Address [address] [facility] 7t [place] [address] Care Team Providers Care Pyrometer Temperature Regulator Name Role Phone Junie Naheed RAHMAN Primary Care Provider [phone] Reason for Visit * Reason Onset Date Comments [facility] 12/12/2023 Encounter Details Date Type Department Care Team ([facility] st Contact Info) Description 12/12/2023 Telephone [facility] ADULT D[facility]AL [address] [place] [address] Zay Schmidt DDS [address] [place] [address] [facility] Social History Tobacco Use Types Packs/Day [...] dental relief. Pain Management office phone number [phone] documented in this encounter Plan of Treatment Upcoming Encounters Date Type Department Care Team (Late st Contact Info) Description 09/19/2024 3:00 PM EDT Office Visit [facility] 230 [facility] [place] [address] Rut Branham MD [address] [place] [address] 09/27/2024 2:45 PM EDT Office Visit [address] [address] Omar Cortes MD 230 [facility] [place] [address] 10/08/2024 1:00 PM EDT Office Visit [address] [address] Naheed Zaman ANP 230 [place] [address] 12/12/2024 3:00 PM EDT Clinical Support [address] [address] Tristen Chen, APRIL 230 [place] [address] documented as of this encounter Visit Diagnoses Not on filedocumented in this encounter Additional Health Concerns Assessment Noted Time PHQ-9 Depression Total Score: 23 024 3:25 PM EDT documented as of this encounter Care Teams Pyrometer Temperature Regulator Relationship Specialty Start Date End Date Naheed Zaman ANP [address] [place] [address] PCP - General Family Medicine 01/18/22 documented as of this encounter
--- OUTSIDE RECORDS SUMMARY | 2024-09-12 13:22 | XMS_ITS | Encounter Summary ---
Author Organization [employer] Address [address] [facility] 7t [place] [address] Care Team Providers Care Steam Shovel Operator Name Role Phone Naheed Zaman Primary Care Provider [phone] Reason for Visit * Reason Comments Med Refill Encounter Details Date Type Department Care Team ([facility] st Contact Info) Description 08/18/2023 Refill [facility] MEDICINE [address] [place], [place] [phone] Naheed Zaman ANP 230 [place] [address] Chronic low back pain without sciatica, unspecified [...] Description 09/19/2024 3:00 PM EDT Office Visit [address] [address] Rut Branham MD [address] [place] [address] 09/27/2024 2:45 PM EDT Office Visit [address] [address] Omar Cortes MD [address] [place] [address] 10/08/2024 1:00 PM EDT Office Visit [address] [address] Naheed Zaman ANP [address] [place] [address] 12/12/2024 3:00 PM EDT Clinical Support [address] [address] Tristen Chen RN [address] [place] [address] documented as of this encounter Visit Diagnoses Diagnosis Chronic low back pain without sciatica, unspecified back pain laterality documented in this encounter Additional Health Concerns Assessment Noted Time PHQ-9 Depression Total Score: 6 11/18/ 23 3:29 PM EDT documented as of this encounter Care Teams Steam Shovel Operator Relationship Specialty Start Date End Date Naheed Zaman ANP [address] [place] [address] PCP - General Family Medicine 01/18/22 documented as of this encounter
--- OUTSIDE RECORDS SUMMARY | 2024-09-12 13:23 | XMS_ITS | Encounter Summary ---
Author Organization [employer] Address [address] [facility] 7t [place] [address] Care Team Providers Care Hotel Lobby Concierge Name Role Phone Naheed Zaman Primary Care Provider [phone] Encounter Details Date Type Department Care Team (Late Contact Info) Description 07/28/2022 Abstract [facility] ADULT DENTAL [address] [place] [address] Zay Schmidt DDS [address] [place] [address] Social History Tobacco Use Types Packs/Day Years [...] Description 09/19/2024 3:00 PM EDT Office Visit [facility] MEDICINE [address] [place] [address] Rut Branham MD [address] [place] [address] 09/27/2024 2:45 PM EDT Office Visit [address] [place] [address] Omar Cortes MD 230 [place] [address] 10/08/2024 1:00 PM EDT Office Visit [address] [address] Naheed Zaman ANP [address] [place] [address] 12/12/2024 3:00 PM EDT Clinical Support [address] [address] Tristen Chen, APRIL [address] [place] [address] documented as of this encounter Visit Diagnoses Not on filedocumented in this encounter Care Teams Hotel Lobby Concierge Relationship Specialty Start Date End Date Naheed Zaman ANP [address] [place] [address] PCP - General Family Medicine 01/18/22 documented as of this encounter
--- OUTSIDE RECORDS SUMMARY | 2024-09-12 13:23 | XMS_ITS | Encounter Summary ---
Author Organization [email or web address] Address [address] [facility] 7t [place] [address] Care Team Providers Care Senior Telecommunications Engineer Name Role Phone Naheed Zaman Primary Care Provider [phone] Reason for Visit * Reason Onset Date Comments Durable Medical Equipment 10/04/2022 Encounter Details Date Type Department Care Team (Late st Contact Info) Description 10/04/2022 Telephone [facility] MEDICINE 230 [place] [address] Naheed Zaman ANP [address] [place] [address] Durable Medical Equipment Social History Tobacco Use [...] for Compressions socks. Please contact pt at [phone] documented in this encounter Plan of Treatment Upcoming Encounters Date Type Department Care Team (Late st Contact Info) Description 09/19/2024 3:00 PM EDT Office Visit [address] [address] Rut Branham MD [address] [place] [address] 09/27/2024 2:45 PM EDT Office Visit [address] [address] Omar Cortes MD [address] [place] [address] 10/08/2024 1:00 PM EDT Office Visit [address] [address] Naheed Zaman ANP [address] [place] [address] 12/12/2024 3:00 PM EDT Clinical Support [address] [address] Tristen Chen, RN [address] [place] [address] documented as of this encounter Visit Diagnoses Not on filedocumented in this encounter Care Teams Senior Telecommunications Engineer Relationship Specialty Start Date End Date Naheed Zaman ANP [address] [place] [address] PCP - General Family Medicine 01/18/22 documented as of this encounter
[2024-09-12] MEDS: iohexoL 350 MG/ML 100 ML INFUS..BTL IV (14:01)
[2024-09-12 14:23] VITALS: BP 160/87; PULSE 62; RESP 16; TEMP 36.2; O2SAT 98
[2024-09-12 14:48] VITALS: BP 160/87; PULSE 62; RESP 16; TEMP 36.2; O2SAT 98
== END 2024-09-12 14:54 | disposition home or self-care (01) ==
PROVIDERS: Emergency Provider Emergency Medicine; PCP Nurse Practitioner Primary Care
DX: S39.012A Strain of muscle, fascia and tendon of lower back, initial encounter (principal); X50.9XXA Other and unspecified overexertion or strenuous movements or postures, initial encounter; M54.50 Low back pain, unspecified; R60.0 Localized edema; E11.9 Type 2 diabetes mellitus without complications; I10 Essential (primary) hypertension; E78.5 Hyperlipidemia, unspecified; E66.01 Morbid (severe) obesity due to excess calories; Z71.3 Dietary counseling and surveillance; Z68.44 Body mass index [BMI] 60.0-69.9, adult; Y93.9 Activity, unspecified; Y92.9 Unspecified place or not applicable; Y99.9 Unspecified external cause status
CPT/HCPCS: 36415; 71045; 71275; 74176; 80053; 81001; 85025; 96374; 96375; 99284; J2270; J2405; Q9967

== ENCOUNTER → 2024-09-12 10:10 | Outpatient (BNV) | payer MEDICAID, SELFPAY | PROVIDERS: Emergency Provider Emergency Medicine; PCP Nurse Practitioner Primary Care; Visit Provider Radiology Diagnostic Radiology | DX: R06.02 Shortness of breath (principal); R07.89 Other chest pain; K76.0 Fatty (change of) liver, not elsewhere classified | CPT/HCPCS: 71045; 71275; 74176 ==

== ENCOUNTER → 2024-09-18 08:30 | Outpatient (REF) | payer MEDICAID, SELFPAY ==
--- NOTE | 2024-09-18 08:32 | CA_ITS ---
Transthoracic Echocardiogram Patient (Last, First, Middle): Ross Navarrete L Gender: Male Date of : 1980 Age: 43 Procedure Date: 09/18/2024 Procedure Type: Transthoracic Echocardiogram Location: OP Height: 165.1 cm Weight: 158.76 kg BSA: 2.51 m2 Heart Rate: bpm BP: 140 / 78 mmHg Rail Technician: TO Referring MD: Real Gomez MD Symptoms: R07.9 - Chest pain, unspecified Study Quality: Fair/Contrast ECG Rhythm: Sinus Conclusions: - The left ventricular systolic function is normal. The calculated ejection fraction is 59% by biplane method. - No obvious valvular pathology seen on this study. Findings Procedure Information Contrast agent, definity, is being given per protocol without apparent complications. Left Ventricle Normal left ventricular cavity size. The left ventricular systolic function is normal. The calculated ejection fraction is 59% by biplane method. There is no evidence of regional wall motion abnormalities. Diastolic function is normal for age. There is mild septal asymmetric hypertrophy. Right Ventricle Normal right ventricular cavity size and systolic function. Atria Both atria are normal in size. Aortic Valve There is a normal trileaflet aortic valve. There is no aortic valve stenosis. There is no aortic valve regurgitation. Mitral Valve The mitral valve appears normal. There is no mitral valve regurgitation. There is no mitral valve stenosis. Pulmonic Valve The pulmonic valve is likely normal. Tricuspid Valve There is trace tricuspid valve regurgitation. There is no evidence of pulmonary hypertension. Great Vessels The asc aorta is normal in size. Venous The inferior vena cava is mildly dilated and collapses less than 50% with inspiration. Pericardium/Pleural There is no evidence of pericardial effusion. Prior Study Comparison No significant change compared to prior study dated: 01/27/2016. Recommendations, Care & Conclusions No obvious valvular pathology seen on this study. Measurements 2D Linear Measurements IVSd: 1.20 0.6-0.9/0.6-1.0 cm LVIDd: 5.55 3.9-5.3/4.2-5.9 cm LVIDd Index: 2.21 2.4-3.2/2.2-3.1 cm/m2 LVIDs: 3.53 2.0-3.6 cm LVPWd: 1.07 0.7-1.1 cm LA Diam: 4.40 2.7-3.8/3.0-4.0 cm LAIDs Index: 1.75 1.5-2.3 cm/m2 LV Mass: 319.55 67-162/88-224 g LV Mass Index: 127.31 43-95/49-115 g/m2 LVOT Diam: 2.40 3.0+(-)1.3 cm 2D Systolic Function EF 4C: 58.70 >55% EF 2C: 59.00 >55% EF BiP: 58.60 >55% Mitral Valve MV Pk E: 0.85 MV PK A: 0.65 MV Decel Time: 227.00 E/A: 1.30 E'Lateral: 11.10 E'Medial: 10.10 E/E' Med: 8.40 E/E' Lat: 7.60 PHT: 66.00 MVA PHT: 3.33 Decel [place]: 3.74 Aortic Valve AoV Pk Armani: 1.69 AoV Mn Armani: 1.24 AoV VTI: 0.38 AoV Pk Grad: 11.00 Aov Mn Grad: 7.00 ANGEL Cont.VTI: 3.40 LVOT LVOT Pk Armani: 1.23 LVOT Mn Armani: 0.78 LVOT VTI: 0.29 LVOT Pk Grad: 6.00 LVOT Mn Grad: 3.00 LVOT Diam: 2.40 LVOT Area: 4.52 Diastolic Function MV Pk E: 0.85 MV Pk A: 0.65 E/A: 1.30 E'Medial: 10.10 E/E' Med: 8.40 E' Laterial: 11.10 E/E' Lat: 7.60 Right Ventricle TAPSE (mm): 24.40 TVS' Armani: 15.60 Tricuspid Valve TR Pk Armani: 2.19 TR Pk Grad: 19.00 RA Press: 15.00 RVSP: 34.00 Great Vessels Aorta Sinus of Valsalva: 3.44 2.0-3.5 cm Ao Asc: 3.50 2.1-3.4 cm Updated in Other Vendor System with Status of Final Hayden Cordoba MD electronically signed on 09/19/2024 11:40:48 AM with status of Final
--- OUTSIDE RECORDS SUMMARY | 2024-09-18 08:52 | XMS_ITS | Clinical Summary ---
Author Organization [facility] Address [address] [place] [address] Care Team Providers Care Lombardi Developer Name Role Phone Unavailable Primary Care Provider [...] recurrent major depressive disorder, with psychotic features ([facility]) 06/10/2024 Assessment & Plan (06/18/2024 11:18 AM EST): Patient refused to be seen, [place] forensics team director was notified. Assessment & Plan (06/10/2024 5:36 [...] connected on video call until arrival of [place] Police with recommendation to section patient to [...] - 19 + 3-dose series) 11/14/2023 10/17/2023 [id number] (2023- season) 01/28/202412/29/2 021, 12/10/2020 Imm-Influenza (#1) 2024 02/27/2012, 01/27/2011 Alcohol and Drug Screen 05/29/2024 Diabetes Screening 05/16/2025 05/16/2024, 1 06/24/2023, 04/24/2024, Additional history exists Lipid Screening 04/24/2029 04/24/2024, 05/29, 02/27/2020 Imm-DTaP/Tdap/Td (3 - Td or Tdap) 10/16/2033 024, 03/15/2011 Hepatitis C Screening Completed 10/11/2023 HIV Screening Completed 12/13/2023, 11/26, 12/16/2021 Insurance [facility] [place] MED[place]
--- OUTSIDE RECORDS SUMMARY | 2024-09-18 08:52 | XMS_ITS | Encounter Summary ---
Author Organization [employer] Address [address] [facility] 7t [place] [address] Care Team Providers Care Restaurant Hourly Manager Name Role Phone Naheed Zaman Primary Care Provider [phone] Encounter Details Date Type Department Care Team (Latest Contact Info) Description 12/29/2021 Abstract [facility] CONVERSIONS Dental, Provider, DDS Social [...] 3:00 PM EDT Office Visit [facility] MEDICINE [address] [place] [address] Rut Branham MD [address] [place] [address] 09/27/2024 2:45 PM EDT Office Visit [facility] MEDICINE [address] [place] [address] Omar Cortes MD [address] [place] [address] 10/08/2024 1:00 PM EDT Office Visit [facility] MEDICINE [address] [place] [address] Naheed Zaman ANP [address] [place] [address] 12/12/2024 3:00 PM EDT Clinical Support [facility] MEDICINE [address] [place] [address] Tristen Chen, RN [address] [place] [address] documented as of this encounter Visit Diagnoses Not on filedocumented in this encounter Care Teams Restaurant Hourly Manager Relationship Specialty Start Date End Date Naheed Zaman ANP [address] [place] [address] PCP - General Family Medicine 01/18/22 documented as of this encounter
--- OUTSIDE RECORDS SUMMARY | 2024-09-18 08:52 | XMS_ITS | Encounter Summary ---
Author Organization [employer] Address [address] [facility] 7t [place] [address] Care Team Providers Care Cotton Tipper Name Role Phone Naheed Zaman Primary Care Provider [phone] Reason for Visit * Reason Comments Care Coordination C3CM/CHW AMANDA Bella initial assessment scheduled Encounter Details Date Type Department Care Team (Latest Contact Info) Description 09/13/2024 Patient Outreach [facility] MEDICINE 230 [place] [address] Naheed Zaman ANP [address] [place] [address] Care Coordination (CM/AMANDA Escobar initial assessment scheduled ) Social History Tobacco Use Types Packs/Day Years [...] as of this encounter Progress Notes * Josh Kebede - 09/13/2024 2:17 PM EDT CHW Josh Kebede, placed outbound call to patient introducing herself from [facility] CM Department, in regards to offering for C3 Adult Complex Care Program. Patient's name and was confirmed. Patient agrees to participate in program. Appt. for initial assessment scheduled for 10/04/24 @ 1:00 PM with CM/RN Rut Patel. CHW reinforced direct contact information or CM for any additional questions or concerns and extended clinic hours on Mondays and Wednesdays, and Walk-In Urgent Care Located in [facility] of [facility]. Patient provided with after-hours line for [facility], , which offer night triage service and option to transfer to ethnographic materials conservator provider if needed. Patient verbalizes understanding, and able to repeat back to policy writer. documented in this encounter Plan of Treatment Upcoming Encounters Date Type Department Care Team (Late st Contact Info) Description 09/19/2024 3:00 PM EDT Office Visit [facility] [place] [address] Rut Branham MD [address] [facility] [place] [address] 09/27/2024 2:45 PM EDT Office Visit [address] [place] [address] Omar Cortes MD [address] [facility] [place] [address] 10/08/2024 1:00 PM EDT Office Visit [address] [place] [address] Naheed Zaman ANP [facility] [place] [address] 12/12/2024 3:00 PM EDT Clinical Support [facility] [place] [address] Tristen Chen, APRIL [address] [place] [address] documented as of this encounter Visit Diagnoses Not on filedocumented in this encounter Additional Health Concerns Assessment Noted Time PHQ-9 Depression Total Score: 25 024 8:12 AM EDT documented as of this encounter Care Teams Cotton Tipper Relationship Specialty Start Date End Date Naheed Zaman ANP [address] [place] [address] PCP - General Family Medicine 01/18/22 documented as of this encounter
--- OUTSIDE RECORDS SUMMARY | 2024-09-18 08:52 | XMS_ITS | Continuity of Care Document ---
Author Organization [facility] Address [address] [place] [address]- Care Team Providers Care Umbrella Mender Name Role Phone Mirna Up NP, V Primary Care Physician [phone] [facility] [id number] Date(s): 08/27/24 - 09/13/[address] [address] Encounter Diagnosis Obesity, unspecified(Final) - Dorsalgia, unspecified(Final) - Edema, unspecified(Final) - Unspecified tear of unspecified meniscus, current injury, right knee, subsequent encounter(Final) - Discharge Disposition: A-D/C Home Attending Physician: Naheed Zaman NP Admitting Physician: Junie DUBOSE, Naheed Dahl Referring Physician: Naheed Zaman NP Encounter Type: Disch Recurring OP Allergies, Adverse Reactions, Alerts Substance Criticality Severity [...] S Outreach Member Role: PCP Address: [address] [facility] [address] [facility], [facility] [place] [address]- Telecom: Care Team Related Persons Name: JERRY WILSON Insurance Providers Guarantor name: [employer] Information #: 1 Payer: [employer] Member Number: [id number] Policy Number: NA Group Number: NA Health Plan Information #: 2 Payer: [employer] Member Number: [id number] Policy Number: NA Group Number: NA
--- OUTSIDE RECORDS SUMMARY | 2024-09-18 08:52 | XMS_ITS | Encounter Summary ---
Author Organization [employer] Address [address] [facility] 7t [place] [address] Care Team Providers Care Oyster Fisherman Name Role Phone Naheed Zaman Primary Care Provider [phone] Reason for Visit * Reason Comments Med Refill Encounter Details Date Type Department Care Team ([facility] st Contact Info) Description 08/18/2023 Refill [facility] MEDICINE 230 [place], [place] [phone] Naheed Zaman ANP 230 [place] [address] Chronic low back pain without sciatica, unspecified [...] Description 09/19/2024 3:00 PM EDT Office Visit [address] [address] Rut Branham MD [address] [place] [address] 09/27/2024 2:45 PM EDT Office Visit [address] [address] Omar Cortes MD [address] [place] [address] 10/08/2024 1:00 PM EDT Office Visit [address] [address] Naheed Zaman ANP [address] [place] [address] 12/12/2024 3:00 PM EDT Clinical Support [address] [address] Tristen Chen RN [address] [place] [address] documented as of this encounter Visit Diagnoses Diagnosis Chronic low back pain without sciatica, unspecified back pain laterality documented in this encounter Additional Health Concerns Assessment Noted Time PHQ-9 Depression Total Score: 6 11/18/ 23 3:29 PM EDT documented as of this encounter Care Teams Oyster Fisherman Relationship Specialty Start Date End Date Naheed Zaman ANP 230 [place] [address] PCP - General Family Medicine 01/18/22 documented as of this encounter
--- OUTSIDE RECORDS SUMMARY | 2024-09-18 08:53 | XMS_ITS | Encounter Summary ---
Author Organization [employer] Address 75 [facility] 7 [place] [address] Care Team Providers Care Local Flatbed Driver Name Role Phone Naheed Zaman Primary Care Provider [phone] Reason for Visit * Reason Comments Care Coordination C3CM/CHW Josh stanley, Chart review Encounter Details Date Type Department Care Team (Latest Contact Info) Description 09/13/2024 Patient Outreach [facility] 230 [place] [address] Naheed Zaman ANP 230 [place] [address] Care Coordination ([facility] Kebede, Chart review ) Social History Tobacco Use Types Packs/Day [...] Progress Notes * Josh Kebede - 09/13/2024 2:15 PM EDT CHW Josh Kebede reviewed chart review completed by KIMBER Patel RN: KIMBER Patel RN, performed chart review, in anticipation of initial assessment with patient, as patient has stratifiedfor C3 Adult Complex Care through the ADT feed. History significant for hypertension, type 2 diabetes, gout. Specialists include cardiology, orthopedic, endocrinology, pain management, vascular surger y, podiatry, rheumatology, GI, Oncology and hematology, [facility] neurology and sleep. ED visits within the last 12 months include 5 visits. Pt went to [facility] ED on 09/12/24. Last appointment in PCP office on 07/10/24. Next appointment scheduled for 10/08/2024. documented in this encounter Plan of Treatment Upcoming Encounters Date Type Department Care Team (Late st Contact Info) Description 09/19/2024 3:00 PM EDT Office Visit [facility] 230 [place] [address] Rut Branham MD 230 [place] [address] 09/27/2024 2:45 PM EDT Office Visit [address] [address] Omar Cortes MD 230 [place] [address] 10/08/2024 1:00 PM EDT Office Visit [address] [address] Naheed Zaman ANP [address] [place] [address] 12/12/2024 3:00 PM EDT Clinical Support [address] [address] Tristen Chen, APRIL [address] [place] [address] documented as of this encounter Visit Diagnoses Not on filedocumented in this encounter Additional Health Concerns Assessment Noted Time PHQ-9 Depression Total Score: 25 024 8:12 AM EDT documented as of this encounter Care Teams Local Flatbed Driver Relationship Specialty Start Date End Date Naheed Zaman ANP [address] [place] [address] PCP - General Family Medicine 01/18/22 documented as of this encounter
--- OUTSIDE RECORDS SUMMARY | 2024-09-18 08:53 | XMS_ITS ---
Author Organization [employer] Address [address] [place] [address] 7 [place] [address] Care Team Providers Care Construction Plumber Name Role Phone Naheed Zaman Primary Care Provider [phone] CHW Complex Status:Outreach In Progress (Enrolling) Start date:09/13/2024 Enrollment reason:ADT Feed Overview ED- [place] [facility] [place] 09[place]12[place]. Case Team Name Relationship Phone Josh Kebede (Responsible Staff) Continued Care and Services Coordination
--- OUTSIDE RECORDS SUMMARY | 2024-09-18 08:53 | XMS_ITS | Encounter Summary ---
Author Organization [employer] Address [address] [facility] 7t [place] [address] Care Team Providers Care Hub Bander Name Role Phone Naheed Zaman Primary Care Provider [phone] Reason for Visit * Reason Comments Care Coordination C3CM Chart review Encounter Details Date Type Department Care Team (Latest Contact Info) Description 09/13/2024 Patient Outreach [facility] [address] [place] [address] Naheed Zaman ANP [address] [place] [address] Care Coordination (C3CM Chart review) Social History Tobacco Use Types Packs/Day Years [...] the past 12 months, has t he [employer], gas, oil or water company threatened to [...] of this encounter Progress Notes * Rut Patel RN - 09/13/2024 9:03 AM EDT KIMBER Patel RN, performed chart review, in anticipation of initial assessment with patient, as patient has stratified for C3 Adult Complex Care through the ADT feed. History significant for hypertension, type 2 diabetes, gout. Specialists include cardiology, orthopedic, endocrinology, pain man agement, vascular surgery, podiatry, rheumatology, GI, Oncology and hematology, [facility] neurology and sleep. ED visits within the last 12 months include 5 visits. Pt went to [facility] ED on 09/12/24. Last appointment in PCP office on 07/10/24. Next appointment scheduled for 10/08/2024. documented in this encounter Plan of Treatment Upcoming Encounters Date Type Department Care Team (Late st Contact Info) Description 09/19/2024 3:00 PM EDT Office Visit [facility] MEDICINE 230 [place] [address] Rut Branham MD 230 [place], [place] [phone] 09/27/2024 2:45 PM EDT Office Visit [address] [address] Omar Cortes MD [address] [place] [address] 10/08/2024 1:00 PM EDT Office Visit [address] [address] Naheed Zaman ANP [address] [place] [address] 12/12/2024 3:00 PM EDT Clinical Support [address] [address] Tristen Chen, APRIL [address] [place] [address] documented as of this encounter Visit Diagnoses Not on filedocumented in this encounter Additional Health Concerns Assessment Noted Time PHQ-9 Depression Total Score: 25 024 8:12 AM EDT documented as of this encounter Care Teams Hub Bander Relationship Specialty Start Date End Date Naheed Zaman ANP [address] [place] [address] PCP - General Family Medicine 01/18/22 documented as of this encounter
--- OUTSIDE RECORDS SUMMARY | 2024-09-18 08:53 | XMS_ITS | Encounter Summary ---
Author Organization [facility] Address [address] [place] [address], [place] [address] Care Team Providers Care Commercial Kitchen Service Technician Name Role Phone Naheed Zaman Primary Care Provider [phone] Reason for Visit * Reason Comments Med Refill Encounter Details Date Type Department Care Team (Late st Contact Info) Description 02/02/2023 Refill [facility]ICINE [address] [place] [address] Rut Branham MD 230 [place] [address] Uncomplicated opioid dependence (CMS/HCC) Social History Tobacco [...] 3:00 PM EDT Office Visit [facility] MEDICINE [address] [place] [address] Rut Branham MD [address] [place] [address] 09/27/2024 2:45 PM EDT Office Visit [address] [address] Omar Cortes MD [address] [place] [address] 10/08/2024 1:00 PM EDT Office Visit [address] [address] Naheed Zaman ANP [address] [place] [address] 12/12/2024 3:00 PM EDT Clinical Support [address] [phone] Tristen Chen, APRIL [address] [place] [address] documented as of this encounter Visit Diagnoses Diagnosis Uncomplicated opioid dependence (CMS/HCC) documented in this encounter Additional Health Concerns Assessment Noted Time PHQ-9 Depression Total Score: 6 11/19/19 23 3:29 PM EDT documented as of this encounter Care Teams Commercial Kitchen Service Technician Relationship Specialty Start Date End Date Naheed Zaman ANP [address] [place] [address] PCP - General Family Medicine 01/18/22 documented as of this encounter
--- OUTSIDE RECORDS SUMMARY | 2024-09-18 08:53 | XMS_ITS | Encounter Summary ---
Author Organization [employer] Address [address] [facility] 7t [place] [address] Care Team Providers Care Stamp Analyst Name Role Phone Naheed Zaman Primary Care Provider [phone] Encounter Details Date Type Department Care Team ([facility] st Contact Info) Description 09/13/2024 Patient Outreach [facility] 230 [place] [address] Naheed Zaman ANP [address] [place] [address] Social History Tobacco Use Types Packs/Day Years [...] your housing situation today? I have zack trjeo 03/13/[address] you li [...] Description 09/19/2024 3:00 PM EDT Office Visit [address] [address] Rut Branham MD [address] [place] [address] 09/27/2024 2:45 PM EDT Office Visit [address] [address] Omar Cortes MD [address] [place] [address] 10/08/2024 1:00 PM EDT Office Visit [address] [address] Naheed Zaman ANP [address] [place] [address] 12/12/2024 3:00 PM EDT Clinical Support [address] [address] Tristen Chen, APRIL [address] [place] [address] documented as of this encounter Visit Diagnoses Not on filedocumented in this encounter Additional Health Concerns Assessment Noted Time PHQ-9 Depression Total Score: 25 024 8:12 AM EDT documented as of this encounter Care Teams Stamp Analyst Relationship Specialty Start Date End Date Naheed Zaman ANP [address] [place] [address] PCP - General Family Medicine 01/18/22 documented as of this encounter
--- OUTSIDE RECORDS SUMMARY | 2024-09-18 08:53 | XMS_ITS | Clinical Summary ---
Author Organization [address] [facility] Address [address] [place] [address] Phone Care Team Providers Care Assisted Living Director Name Role Phone Naheed Zaman NP Primary Care Provider [phone] Allergies Active Allergy Reactions Criticality Noted Date [...] obesity with BMI of 6 0.0-69.9, adult ([facility] V24, [facility] V28) 04/17/2024 Acquired pes planus 05/11/2017 Pure hypercholesterolemia 05/10/2017 Pulmonary hypertension ([facility] V24, [facility] V28 ) 05/10/2017 Overview (04/17/2024): Mild, ECHO 10/21/10 C, EF 65-70% HTN (hypertension) 05/10/2017 H. pylori infection 05/10/2017 Overview (04/17/2024): + serology 08/07/2009, uncertain if treated Gout 05/10/2017 Elevated liver enzymes 05/10/2017 Overview (04/17/2024): fatty liver DJD (degenerative joint disease) 05/10/2017 Overview (04/17/2024): Mild L knee, Mod L shoulder arthropathy Asthma 05/10/2017 Proteinuria 04/30/2017 DM (diabetes mellitus), type 2 with renal complications ([facility] V24, [facility] V28) 04/30/2017 Spondylosis of lumbar region without myelopathy or radiculopathy 04/26/2017 Overview (04/17/2024): Saw [facility] Rheumatology BETSY (obstructive sleep apnea) 04/26/2017 Overview (04/17/2024): Polysomnography 08/05/2009, [facility] :On cpap 14 cm H2O 10/23/2017 Home Sleep Study insufficient data. 08/2018 - Pulm ordered split night study. Diabetes mellitus type 2 wit h neurological manifestations ([facility] V24, [facility] V28) 04/26/2017 CTS (carpal tunnel syndrome) 04/26/2017 [...] (diabetes mellitus), type 2 with renal complications ([facility] V24, [facility] V28) 04/30/2017 DX:DM (diabetes mellitus), t ype 2 with renal complications (HCC) Proteinuria 04/30/2017 DX:Proteinuria Diabetes mellitus type 2 wit h neurological manifestations ([facility] V24, [facility] V28) 04/26/2017 DX:Diabetes mellitus type 2 with neurological manifestations (HCC) Asthma 05/10/2017 DX:Asthma Elevated liver enzymes 05/10/2017 DX:Elevat ed liver enzymes; COMMENT: fatty liver Gout 05/10/2017 DX:Gout H. pylori infection 05/10/2017 DX:H. 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 DX:History of acute post-streptococcal glomerulonephritis; COMMENT: Hospitalized [facility] with anasarca/ KUNAL 2010, streptolysin titer 1060, kidney bx, Followed in past by Dr Zapata, NSAIDS not recommended HTN (hypertension) 05/10/2017 DX:HTN (hyper tension) Morbid obesity with BMI of 6 0.0-69.9, adult ([facility] V24, [facility] V28) 04/26/2017 DX:Morbid obesity wit h BMI of 60.0-69.9, adult ([facility]) BETSY (obstructive sleep apnea) 04/26/2017 DX :BETSY (obstructive sleep apnea); COMMENT: Polysomnography 08/05/2009, [facility] :On cpap 14 cm H2O Pulmonary hypertension ([facility] V24, [facility] V28) 05/10/2017 DX:Pulmonary hypertension ([facility]); COMMENT: Mild, ECHO 10/21/10 [facility], EF 65-70% Otherwise normal altho suboptimal views, [...] egion without myelopathy or radiculopathy; COMMENT: Saw [facility] Rheumatology Family History Medical History Relation Name [...] Ratio (02/27/2020) Urine Albumin Creatinine Ratio Abstracted [facility] Provider HEALTH MAINTENANCE Final Result * Annual BMP Blood Test (02/27/2020) Annual BMP Blood Test Abstracted Result [facility] Provider HEALTH MAINTENANCE Final Result * (ABNORMAL) Hemoglobin A1c (02/27/2020) Pathologist [facility] Hemoglobin A1C 6.9(A) <=6.5 % Blood Venous blood specimen / Unknown Result [facility] Provider LAB BLOOD ORDERABLES Brunilda l Result * Lipid panel (02/27/2020) LDL/HDL Ratio 3 0 - 4 Triglycerides 91 0 - 150 mg/dL Cholesterol 145 0 - 200 mg/dL HDL 58 >=40 mg/dL LDL Cholesterol 69 0 - 100 mg/dL Blood Venous blood specimen / Unknown Result [facility] Provider LAB BLOOD ORDERABLES Brunilda l Result * Hepatitis C Screening (06/22/2017) Hepatitis C Screening Abstracted us Historical Provider HEALTH MAINTENANCE Final Result from Last 3 Months or Most Recently Relevant to Health Maintenance Insurance MEDICAID - [place] Care Teams Assisted Living Director Relationship Specialty Start Date End Date Naheed Zaman NP [address] [place] [phone] PCP - General 02/21/24
--- OUTSIDE RECORDS SUMMARY | 2024-09-18 08:53 | XMS_ITS | Encounter Summary ---
Author Organization [employer] Address [address] [facility] [address] [place] [address] Care Team Providers Care Registered Nurse First Assistant Name Role Phone Naheed Zaman Primary Care Provider [phone] Encounter Details Date Type Department Care Team (Late Contact Info) Description 07/28/2022 Abstract [facility] [address] [place] [address] Zay Schmidt DDS [address] [place] [address] Social History Tobacco Use Types Packs/Day Years [...] Description 09/19/2024 3:00 PM EDT Office Visit [facility] [address] [place] [address] Rut Branham MD [address] [place] [address] 09/27/2024 2:45 PM EDT Office Visit [address] [place] [address] Omar Cortes MD [address] [place] [address] 10/08/2024 1:00 PM EDT Office Visit [address] [address] Naheed Zaman ANP [address] [place] [address] 12/12/2024 3:00 PM EDT Clinical Support [address] [address] Tristen Chen, APRIL [address] [place] [phone] documented as of this encounter Visit Diagnoses Not on filedocumented in this encounter Care Teams Registered Nurse First Assistant Relationship Specialty Start Date End Date Naheed Zaman ANP [address] [place] [id number] PCP - General Family Medicine 01/18/22 documented as of this encounter
--- OUTSIDE RECORDS SUMMARY | 2024-09-18 08:53 | XMS_ITS | Encounter Summary ---
Author Organization [employer] Address [address] [facility] [address] [place] [address] Care Team Providers Care Diabetes Education Coordinator Name Role Phone Junie Naheed RAHMAN Primary Care Provider [phone] Reason for Visit * Reason Onset Date Comments [facility] 12/12/2023 Encounter Details Date Type Department Care Team ([facility] st Contact Info) Description 12/12/2023 Telephone [facility] [address] [place] [address] Zay Schmidt DDS [address] [place] [address] [facility] Social History Tobacco Use Types Packs/Day Years [...] dental relief. Pain Management office phone number [phone] documented in this encounter Plan of Treatment Upcoming Encounters Date Type Department Care Team (Late st Contact Info) Description 09/19/2024 3:00 PM EDT Office Visit [facility] [address] [facility] [place] [address] Rut Branham MD [address] [place] [address] 09/27/2024 2:45 PM EDT Office Visit [address] [address] Omar Cortes MD [address] [facility] [place] [address] 10/08/2024 1:00 PM EDT Office Visit [address] [address] Naheed Zaman ANP [address] [place] [address] 12/12/2024 3:00 PM EDT Clinical Support [address] [address] Tristen Chen, APRIL [address] [place] [address] documented as of this encounter Visit Diagnoses Not on filedocumented in this encounter Additional Health Concerns Assessment Noted Time PHQ-9 Depression Total Score: 23 024 3:25 PM EDT documented as of this encounter Care Teams Diabetes Education Coordinator Relationship Specialty Start Date End Date Naheed Zaman ANP [address] [place] [phone] PCP - General Family Medicine 01/18/22 documented as of this encounter
--- OUTSIDE RECORDS SUMMARY | 2024-09-18 08:53 | XMS_ITS | Clinical Summary ---
Author Organization [employer] Address [address] [facility] [facility] [address] [place] [address] Care Team Providers Care Registration Coordinator Name Role Phone Sofia Mitchell JOSIAH Primary Care Provider [phone] Allergies Active Allergy Reactions Criticality Noted Date Comments Shellfish Allergy 05/02/2022 Medications * This document contains information received from the source organization and may not represent a complete record from that organization. Alcohol Swabs (Alcohol Prep) 70 % pads USE FOUR TIMES DAILY WITH INSULIN Active Blood Glucose Monitoring Suppl (FreeStyle [place] Lite) w/Device kit TEST BLOOD SUGAR FOUR TIMES DAILY Active FREESTYLE LITE test strip TEST BLOOD SUGAR FOUR TIMES DAILY Active glucose blood (FREESTYLE LITE) test strip check fingerstick 4 times a day Active Sure Comfort Pen [place] 31G X 5 MM misc USE FOUR [...] Active beta carotene (vitamin A) 3 MG (02830 UT) capsule TAKE 2 CAPSULES BY MOUTH [...] Active Blood Pressure Monitor kitIndications:P ulmonary hypertension ([facility]) 1 kit in the morning. 1 kit 024 Active metoclopramide (Reglan) 10 MG tablet 1 tablet as needed every 6 hrs for nausea/vomiting 40 tablet 024 Active atorvastatin (Lipitor) 10 MG tabletIndication s:Type 2 diabetes mellitus with hyperlipidemia ([facility]/HCC) ([facility]) Take 1 tablet (10 mg) by mouth [...] use. 473 mL 024 Active Continuous Glucose [place] Laboratory Assistant (FreeStyle [place] 2 [place]) deviceIndication s:Diabetes mellitus with albuminuria (CMS/HCC) ([facility]) Scan sensor every 8 hours 1 each 024 Active Continuous Glucose Sensor (FreeStyle Casey 2 Sensor) miscIndications: Diabetes mellitus with albuminuria (CMS/HCC) ([facility]) Apply 1 sensor every 14 days 2 each 024 Active glucose blood (FreeStyle Precision Lefty Test) test stripIndications :Diabetes mellitus with albuminuria (CMS/HCC) ([facility]) Use to test blood sugar 3 times daily 100 each 12 024 2024 Active glucose (BD Glucose) 5 g chewable tabletIndication s:Type 2 diabetes mellitus with hyperlipidemia ([facility]/HCC) ([facility]) Chew 3 tablets (15 g) if needed for low blood sugar. 50 tablet 5 024 2024 Active esomeprazole (NexIUM) [address] capsuleIndicatio ns:Gastroesophag eal reflux disease, unspecified whether esophagitis present Take 1 capsule (40 mg) by mouth before breakfast. Do not open capsule. 90 capsule 1 024 2024 Active semaglutide (Ozempic) 2 MG/1.5ML solution pen-injectorIndi cations:Type 2 diabetes mellitus with hyperlipidemia (CMS/HCC) ([facility]) 0.25 subcutaneous once weekly for 4 weeks, [...] s:Type 2 diabetes mellitus with hyperlipidemia (CMS/HCC) ([facility]),Persis tent proteinuria Take 1 tablet (40 mg) [...] mouth Once per day. 15 tablet 025 Active Suboxone 8-2 MG SL filmIndications: Uncomplicated opioid dependence (CMS/HCC) Place 3 Film under the tongue Once per day. 84 Film 2 025 2024 Active Suboxone 8-2 MG SL [...] Health Integration Plan Internal Follow up with [facility] Patient Self Plan Patient to [facility] as needed, Comply with medication [...] Health Integration Plan Internal Follow up with [facility] Patient Self Plan Patient to reach [facility] team as needed, Comply with medication [...] Health Integration Plan Internal Follow up with [facility] Patient Self Plan Patient to utilize skills provided in intervention , Patient to reach [facility] team as needed, and Patient to [...] Health Integration Plan Internal Follow up with [facility] External OP psychiatry Referral Patient Self Plan Patient to reach out to [facility] team as needed, Comply with medication , Patient to engage in OP therapy , and Patient to reach out to [facility] as needed Assessment & Plan (09/20/2023 10:06 AM EDT): New/Additional Services needed Off-site services for Behavioral Health Integration Plan External OP therapy referral Patient Self Plan Patient to utilize skills provided in intervention , Patient to reach out to [facility] team as needed, Comply with medication [...] explained that she tried referring pt to [facility] and other centers and pt;s can not be evaluated for plastic surgery w current BMI -I request referral to be sent to [facility] but was explained is the same criteria [...] hypertension 05/10/2017 Overview (07/28/2022): Mild, ECHO 10/21/10 [facility], EF 65-70% H. pylori infection 05/10/2017 Overview (07/28/2022): + serology 08/07/2009, uncertain if treated Gout 05/10/2017 Elevated liver enzymes 05/10/2017 Overview (07/28/2022): fatty liver Arthritis 05/10/2017 Overview (07/28/2022): Mild L knee, Mod L shoulder arthropathy Asthma 05/10/2017 Spondylosis of lumbar region without myelopathy or radiculopathy 04/26/2017 Overview (07/28/2022): Saw [facility] Rheumatology CTS (carpal [...] sleep apnea) 05/18/2015 Overview (07/28/2022): Polysomnography 08/05/2009, [facility] :On cpap 14 cm H2O 10/23/2017 Home Sleep Study insufficient data. 08/2018 - Pulm ordered split night study. Proteinuria 05/18/2015 Encounters * This document contains information received from the source organization and may not represent a complete record from that organization. Date Type Department Care Team Description 09/13/2024 Patient Outreach [address] [address] Sofia Mitchell ANP Care Coordination ([facility]Mimi Kebede, initial assessment scheduled ) 09/13/2024 Patient Outreach [address] [address] Sofia Mitchell ANP Care Coordination ([facility]/Mimi Kebede, Chart review ) 09/13/2024 Patient Outreach [facility] [address] [place], [place] [phone] Sofia Mitchell ANP Care Coordination ([facility] Chart review) 09/13/2024 Patient Outreach [facility] [address] [place] [phone] Sofia Mitchell ANP 09/12/2024 Orders Only [facility] External Provider, [facility] 09/09/2024 Refill [facility] [address] [place] [phone] Rut Branham MD Uncomplicated opioid dependence (CMS/HCC) 08/23/2024 10:00 AM EDT Office Visit [facility] [address] [place] [address] Zay Schmidt DDS History of tooth extraction, unspecified edentulism class (Primary Dx) 08/23/[address] [address] Arlette Hill, RN DME Question 08/14/[address] [phone] Sofia Mitchell ANP [facility] (Bath tub wall rail) 08/09/2024 Population Health Risk Score [facility] () Department [address] [place] [id number] Provider, Population Health Generic 08/06/2024 Telephone [facility] [address] [place] [phone] Sofia Mitchell ANP Prior Authorization (Ozempic) 08/06/2024 Telephone [facility] [address] [place] [phone] Sofia Mitchell ANP Durable Medical Equipment (Grab bars) 08/06/2024 Orders Only GENERIC EXTERNAL DATA DEPARTMENT Provider, Generic External Data 08/05/[address] [address] Sofia Mitchell ANP Nurse Triage 08/02/2024 Outside Procedure [facility] [address] [place] [phone] Gary, Coreen, OD Presbyopia (Primary Dx) 08/01/2024 2:45 PM EST Office Visit [facility] [address] [place] [phone] Gary, Coreen, OD Hyperopia of both eyes (Primary Dx) 07/25/2024 3:00 PM EST Office Visit [address] [address] Rut Branham MD Opioid type dependence, continuous (CMS/HCC) (Primary Dx); Severe episode of recurrent major depressive disorder, without psychotic features (CMS/HCC) 07/25/2024 Travel 07/24/2024 Refill [facility] [address] [place] [phone] Verona Estrada MD Venous stasis dermatitis of both lower extremities 07/18/2024 Refill [facility] [address] [place] [phone] Tristen Chen, APRIL Uncomplicated opioid dependence (CMS/HCC) 07/16/2024 Travel 07/12/2024 Telephone [facility] [address] [place] [phone] Sofia Mitchell ANP Prior Authorization (Ozempic) 07/10/2024 2:00 PM EST Office Visit [facility] [address] [place] [phone] Sofia Mitchell ANP Type 2 diabetes mellitus with hyperlipidemia (CMS/HCC) [...] knee, right, sequela 07/10/2024 Travel 07/10/2024 Telephone [facility] [address] [place] [phone] Anette Carrion MA Chart prep 07/09/[address] [address] Nikki Díaz RN Right shoulder X ray 07/03/2024 2:00 PM EST Office Visit [facility] [address] [place] [phone] Lyndsay Tariq NP Chronic right shoulder pain (Primary Dx); Elevated blood pressure reading in office with diagnosis of hypertension 07/03/2024 Orders Only GENERIC EXTERNAL DATA DEPARTMENT Provider, Generic External Data 07/03/2024 Travel 06/27/2024 11:15 AM EST Office Visit [facility] [address] [place] [address] Kaitlyn Burk, KVNG Type 2 diabetes mellitus without ophthalmic manifestations ([facility]/HCC) (Primary Dx); Presbyopia 06/27/2024 10:30 AM EST Clinical Support [facility] [address] [place] [phone] Tristen Chen RN Opioid type dependence, continuous ([facility]/HCC) (Primary Dx) 06/27/2024 Travel 06/26/2024 Refill [facility] [address] [place] [phone] Heidy Taylor MD Chronic low back pain without sciatica, unspecified back pain laterality 06/21/2024 Telephone [facility] [address] [place] [address] Sofia Mitchell ANP from Last 3 Months [...] EDT Office Visit [facility] [address] [place] [phone] Rut Branham MD [address] [place] [phone] 09/27/2024 2:45 PM EDT Office Visit [facility] [address] [place] [phone] Omar Cortes MD [address] [place] [phone] 10/08/2024 1:00 PM EDT Office Visit [facility] [address] [place] [address] Sofia Mitchell ANP [address] [place] [address] 12/12/2024 3:00 PM EDT Clinical Support [facility] [address] [place] [address] Tristen Chen, RN [address] [place] [address] Health Maintenance Due Date Last Done Comments [...] 08/30/2024 08/31/2023 Alcohol/Substance Use Screening 01/04/2025 01/05/2024 Diabetes: Hemoglobin A1C 01/07/2025 025, 04/24/2024, 02/13/2024, [...] Procedure Name Priority Date/Time Associated Diagnosis Comments CTA CHEST PE PROTOCAL Routine 09/12/2024 1:[address] ABDOMEN PELVIS WO CONTRAST Routine 09/12/2024 1:07 PM EDT COMPREHENSIVE METABOLIC PANEL Routine 09/12/2024 10:22 [...] Recently Relevant to Health Maintenance Results * CTA Chest PE Protocal (09/12/2024 1:07 PM EDT) Anatomical Region Laterality Modality Body, Chest Computed Tomogra phy 09/12/2024 1:07 PM EDT Narrative 09/12/2024 2:13 PM EDT ? [facility] ?[address] ?[place] [address] ? CT Scan Report ? Signed ? Patient: Navarrete,Ross L ?MR#: [id number] ?? 613 ? : 1980 ?Acct:[id number] ? Age/Sex: 43 / M ?ADM Date: 09/12/24 ? Loc: HO.ED ? Attending Dr: ? Ordering Physician: Pat Landers ?? Date of Service: 09/12/24 ?? Procedure(s): CT angio chest PE protocol ?? Accession Number(s): [id number] ? cc: Pat Landers; SOFIA MITCHELL NP ? Report Number: ?? [id number]: Total DLP = ??658.38 mGy-cm ?? EXAMINATION: ?? CT ANGIOGRAM CHEST ? CLINICAL INFORMATION: ?? Shortness of breath. Right lung pain. ? COMPARISON: ?? September 22, 2017. ? TECHNIQUE: ?? Multiple axial images were obtained through the chest after the ?? administration of 65 mL of Omnipaque 350 intravenous contrast. ?? Extensive vascular post-processing including two-dimensional and ?? three-dimensional reformatted images were created and reviewed on an ?? independent workstation. ? This CT examination was performed using dose optimization techniques as ?? appropriate, variously including the following: ?? *Automated exposure control ?? *Adjustment of mA and/or kV according to patient size (this includes ?? techniques or standardized protocols for targeted exams where dose is ?? matched to indication/reason for exam; i.e. extremities or head) ?? *Use of iterative reconstruction technique ?? DLP: 658.38 mGy centimeter. ? FINDINGS: ?? There is patency of the main pulmonary artery or its main branches and ?? the subsegmental pulmonary branches without gross intraluminal filling ?? defects. ?? Thoracic aorta demonstrates normal enhancement pattern, ?? diameter/caliber without intimal flap. ?? No complications and the coronary arteries. ?? No calcifications in the thoracic aorta. ?? No pericardial effusion. ?? No lymphadenopathy, mediastinum or perihilar. ?? No consolidation, pleural effusion or pneumothorax. ?? No bronchiectasis. No honeycombing. ?? No acute rib fracture. ?? Sternum is intact. Scapula is intact. ?? Subchondral cyst formation and sclerosis and asymmetric joint space ?? narrowing involving the left glenohumeral joint. ?? Multilevel thoracic spondylosis without acute fracture or listhesis. ? CT/CT angio chest PE protocol ?? IMPRESSION: ?? No acute pulmonary artery emboli. ?? No aneurysm or dissection, thoracic aorta. ?? No acute airspace disease. ? Fleischner guidelines were followed. ? Electronically signed by: ??Dionisio Stokes MD ??09/12/2024 02:11 PM ?? EDT ? Dictated By: ?Dionisio Okeefe MD ? Signed By: ?<Electronically signed by Dionisio Hill MD in OV> ? 09/12/24 1411 ? DD/ 1307 ? TD/TT: 09/12/24 1359 ? Dye Penetrant Testing Technician: ? Procedure Note Maria T Cronin - 09/12/[address] [place] [address] [address] Scan Report Signed Patient: Ross Navarrete R#: [id number] 613 : 1980Acct:[id number] Age/Sex: 43 / MADM Date: 09/12/24 Loc: HO.ED Attending Dr: Ordering Physician: Pat Landers Date of Service: 09/12/24 Procedure(s): CT angio chest PE protocol Accession Number(s): [id number] cc: Pat Landers; SOFIA MITCHELL NP Report Number: [id number]: Total DLP = 658.38 mGy-cm EXAMINATION: CT ANGIOGRAM CHEST CLINICAL INFORMATION: Shortness of breath. Right lung pain. COMPARISON: September 22, 2017. TECHNIQUE: Multiple axial images were obtained through the chest after the administration of 65 mL of Omnipaque 350 intravenous contrast. Extensive vascular post-processing including two-dimensional and three-dimensional reformatted images were created and reviewed on an independent workstation. This CT examination was performed using dose optimization techniques as appropriate, variously including the following: *Automated exposure control *Adjustment of mA and/or kV according to patient size (this includes techniques or standardized protocols for targeted exams where dose is matched to indication/reason for exam; i.e. extremities or head) *Use of iterative reconstruction technique DLP: 658.38 mGy centimeter. FINDINGS: There is patency of the main pulmonary artery or its main branches and the subsegmental pulmonary branches without gross intraluminal filling defects. Thoracic aorta demonstrates normal enhancement pattern, diameter/caliber without intimal flap. No complications and the coronary arteries. No calcifications in the thoracic aorta. No pericardial effusion. No lymphadenopathy, mediastinum or perihilar. No consolidation, pleural effusion or pneumothorax. No bronchiectasis. No honeycombing. No acute rib fracture. Sternum is intact. Scapula is intact. Subchondral cyst formation and sclerosis and asymmetric joint space narrowing involving the left glenohumeral joint. Multilevel thoracic spondylosis without acute fracture or listhesis. CT/CT angio chest PE protocol IMPRESSION: No acute pulmonary artery emboli. No aneurysm or dissection, thoracic aorta. No acute airspace disease. Fleischner guidelines were followed. Electronically signed by: Dionisio Stokes MD 09/12/2024 02:11 PM EDT Dictated By: Dionisio Okeefe MD Signed By: <Electronically signed by Dionisio Hill MDin OV> 09/12/24 1411 DD/ 1307 TD/TT: 09/12/24 1359 Dye Penetrant Testing Technician: [facility] External Provider IMG CT PROCEDURES Final Result * CT Abdomen Pelvis w/o Contrast (09/12/2024 1:07 PM EDT) Anatomical Region Laterality Modality Body, Pelvis, Abdomen Computed T omography 09/12/2024 1:07 PM EDT Narrative 09/12/2024 2:07 PM EDT ? [facility] ?[address] ?[place] [address] ? CT Scan Report ? Signed ? Patient: Navarrete,Ross L ?MR#: [id number] ?? 613 ? : 1980 ?Acct:[id number] ? Age/Sex: 43 / M ?ADM Date: 09/12/24 ? Loc: HO.ED ? Attending Dr: ? Ordering Physician: Pat Landers ?? Date of Service: 09/12/24 ?? Procedure(s): CT abdomen pelvis wo IV con ?? Accession Number(s): [id number] ? cc: Pat Landers; SOFIA MITCHELL NP ? Report Number: ?? [id number]: Total DLP = 1782.28 mGy-cm ?? EXAMINATION: ??CT ABDOMEN PELVIS WITHOUT IV CONTRAST ? HISTORY: right lower back, right flank pain ? COMPARISON: Comparison is made with the prior examination dated ?? 01/20/2021. ? TECHNIQUE: CT scan of the abdomen and pelvis was performed without ?? contrast using standard departmental protocol. Coronal and sagittal ?? reformatted images were generated and reviewed. ??Oral contrast material ?? was not administered per department protocol. ? This CT exam was performed with one or more of the following dose ?? reduction techniques: automated exposure control, adjustment of the mA ?? and/or kV according to patient size, use of iterative reconstruction ?? technique. ? DLP: 2439 mGy-cm ? FINDINGS: ? LOWER CHEST: The visualized lung bases are clear. There is no pleural ?? effusion. ? CARDIOVASCULATURE: The heart is normal in size. ??There is no ?? pericardial effusion. ? LIVER: ??The liver is normal in size and contour. ??The liver ?? demonstrates diffusely decreased attenuation, consistent with steatosis. ? GALLBLADDER / BILE DUCTS: ??The gallbladder is unremarkable. There is no ?? intra or extrahepatic biliary ductal dilatation. ? SPLEEN: The spleen is borderline enlarged, but has an unremarkable ?? unenhanced appearance. ? PANCREAS: The pancreas has an unremarkable unenhanced appearance. ? ADRENAL GLANDS: Unremarkable. ? KIDNEYS/RETROPERITONEUM: No renal or ureteral calculi are identified. ?? There is no hydronephrosis or hydroureter. ? LYMPH NODES: ??No retroperitoneal lymphadenopathy is identified in the ?? abdomen or pelvis. ? VASCULATURE: ??The abdominal aorta is normal in caliber. ? MESENTERY/PERITONEUM: No free fluid. No masses. ??There is no free ?? intraperitoneal gas. ? STOMACH: ??The stomach is collapsed, limiting evaluation. ? SMALL BOWEL: ?? The small bowel is normal in caliber. ? COLON: ??The colon is unremarkable. ? APPENDIX: ??The appendix is not seen, however no inflammatory changes ?? are seen adjacent to the cecum. ? URINARY BLADDER/PELVIC ORGANS: The urinary bladder is unremarkable. ? The prostate is normal in size. ? BONES / SOFT TISSUES: ??There is degenerative disc disease of the lower ?? thoracic spine. ? CT/CT abdomen pelvis wo IV con ?? IMPRESSION: ?? 1. No evidence of nephrolithiasis or ureteral obstruction. ? 2. Hepatic steatosis. Borderline splenomegaly. ? Electronically signed by: ??Gurinder Valdez MD ??09/12/2024 02:04 PM EDT ?? RP ? Dictated By: ?Gurinder Valdez MD ? Signed By: ?<Electronically signed by Gurinder Valdez MD in OV> ?09/12/24 1404 ? DD/ 1307 ? TD/TT: 09/12/24 1356 ? Dye Penetrant Testing Technician: ? Procedure Note Roseanne, Image - 09/12/[address] [address] [address] Scan Report Signed Patient: Ross Navarrete LMR#: [id number] 613 : 1980Acct:[id number] Age/Sex: 43 / MADM Date: 09/12/24 Loc: HO.ED Attending Dr: Ordering Physician: Pat Landers Date of Service: 09/12/24 Procedure(s): CT abdomen pelvis wo IV con Accession Number(s): [id number] cc: Pat Landers; SOFIA MITCHELL NP Report Number: [id number]: Total DLP = 1782.28 mGy-cm EXAMINATION: CT ABDOMEN PELVIS WITHOUT IV CONTRAST HISTORY: right lower back, right flank pain COMPARISON: Comparison is made with the prior examination dated 01/20/2021. TECHNIQUE: CT scan of the abdomen and pelvis was performed without contrast using standard departmental protocol. Coronal and sagittal reformatted images were generated and reviewed. Oral contrast material was not administered per department protocol. This CT exam was performed with one or more of the following dose reduction techniques: automated exposure control, adjustment of the mA and/or kV according to patient size, use of iterative reconstruction technique. DLP: 2439 mGy-cm FINDINGS: LOWER CHEST: The visualized lung bases are clear. There is no pleural effusion. CARDIOVASCULATURE: The heart is normal in size. There is no pericardial effusion. LIVER: The liver is normal in size and contour. The liver demonstrates diffusely decreased attenuation, consistent with steatosis. GALLBLADDER / BILE DUCTS: The gallbladder is unremarkable. There is no intra or extrahepatic biliary ductal dilatation. SPLEEN: The spleen is borderline enlarged, but has an unremarkable unenhanced appearance. PANCREAS: The pancreas has an unremarkable unenhanced appearance. ADRENAL GLANDS: Unremarkable. KIDNEYS/RETROPERITONEUM: No renal or ureteral calculi are identified. There is no hydronephrosis or hydroureter. LYMPH NODES: No retroperitoneal lymphadenopathy is identified in the abdomen or pelvis. VASCULATURE: The abdominal aorta is normal in caliber. MESENTERY/PERITONEUM: No free fluid. No masses. There is no free intraperitoneal gas. STOMACH: The stomach is collapsed, limiting evaluation. SMALL BOWEL: The small bowel is normal in caliber. COLON: The colon is unremarkable. APPENDIX: The appendix is not seen, however no inflammatory changes are seen adjacent to the cecum. URINARY BLADDER/PELVIC ORGANS: The urinary bladder is unremarkable. The prostate is normal in size. BONES / SOFT TISSUES: There is degenerative disc disease of the lower thoracic spine. CT/CT abdomen pelvis wo IV con IMPRESSION: 1. No evidence of nephrolithiasis or ureteral obstruction. 2. Hepatic steatosis. Borderline splenomegaly. Electronically signed by: Gurinder Valdez MD 09/12/2024 02:04 PM EDT Dictated By: Gurinder Valdez MD Signed By: <Electronically signed by Gurinder Valdez MD in OV> 09/12/24 1404 DD/ 1307 TD/TT: 09/12/24 1356 Dye Penetrant Testing Technician: [facility] External Provider IMG CT PROCEDURES Final Result * (ABNORMAL) Urinalysis, Complete, with Reflex to Culture (09/12/2024 10:22 AM EDT) Color Urine Yellow [facility] Appearance Urine Clear [facility] PH 5.5 5.0 - 9.0 [facility] Glucose Urine UA Negative Negative mg/dL [facility] Urine Blood Negative Negative [facility] Specific [place] - Urine 1.020 1.005 - 1.025 [facility] Urine Protein 300 (3+)(A) Neg-Trace mg/dL [facility] Urine Ketones Negative Negative mg/dL [facility] Nitrite Urine Negative Negative [facility] Leukocyte Esterase Urine Negative Negative [facility] RBC Urine 0-2 0 - 2 /HPF [facility] Urine WBC 0-5 0 - 5 /HPF [facility] Urine Squamous Epithelial Cell 0-2 0 - 2 /HPF [facility] Urine Bacteria None Seen None Seen [facility] Hyaline Casts, Urine 0-2 0 - 2 /LPF [facility] 09/12/2024 10:2 2 AM EDT 09/12/2024 10:31 AM EDT Narrative [facility] - 09/12/2024 10:40 AM EDT Urine, Clean Catch Generic External Data Provider LAB URINE ORDERAB LES Final Result [facility] [address] [place] [address] [phone] * (ABNORMAL) CBC auto differential (09/12/2024 10:22 AM EDT) Only the most recent of2 resultswithin the time period is included. White Blood Count 8.6 4.8 - 10.8 X10*3/uL [facility] Red Blood Count 4.71 4.60 - 5.80 X10*6/uL [facility] Hemoglobin 13.3(L) 14.0 - 18.0 g/dl [facility] Hematocrit 40.1(L) 42.0 - 52.0 % [facility] Mean Corpuscular Volume 85.1 80.0 - 98.0 fL [facility] Mean Corpuscular Hemoglobin 28.2 27.0 - 33.0 pg [facility] Mean Corpuscular HGB Conc 33.2 31.0 - 36.0 g/dl [facility] Red Cell Distribution Width 12.7 11.0 - 16.0 % [facility] Platelet Count 134(L) 160 - 400 X10*3/uL [facility] Mean Platelet Volume 11.7 9.4 - 12.4 fL [facility] Neutrophils Percent Auto 66.8 45 - 73 % [facility] Imm Gran Pct Auto 0.5(H) 0.0 - 0.4 % [facility] Lymphocytes Percent Auto 24.5 20 - 40 % [facility] Monocytes Percent Auto 6.1 2 - 11 % [facility] Eosinophils Percent Auto 1.6 0 - 4 % [facility] Basophils Percent Auto 0.5 0 - 2 % [facility] NRBC Pct Auto 0.0 0.0 - 0.2 /100WBC [facility] Neutrophils Absolute Auto 5.8 2.0 - 8.3 x10*3/uL [facility] Imm Gran Abs Auto 0.04(H) 0.00 - 0.03 X10*3/uL [facility] Lymphocytes Absolute Auto 2.1 1.2 - 4.9 X10*3/uL [facility] Monocytes Absolute Auto 0.5 0.1 - 1.2 X10*3/uL [facility] Eosinophils Absolute Auto 0.1 0.0 - 0.4 X10*3/uL [facility] Basophils Absolute Auto 0.0 0.0 - 0.2 X10*3/uL [facility] NRBC Abs Auto 0.000 0.0 - 0.012 X10*3/uL [facility] 09/12/2024 10:2 2 AM EDT 09/12/2024 10:31 AM EDT us Generic External Data Provider LAB BLOOD ORDERAB LES Final Result [facility] [address] [place] [address] [phone] * (ABNORMAL) Comprehensive Metabolic Panel (09/12/2024 10:22 AM EDT) Sodium 136 135 - 145 mmol/L [facility] Potassium 4.1 3.3 - 5.1 mmol/L [facility] Chloride 102 96 - 108 mmol/L [facility] Carbon Dioxide 25 22 - 29 mmol/L [facility] Anion Gap 13 12 - 20 [facility] Urea Nitrogen (BUN) 23(H) 9 - 16 mg/dL [facility] Creatinine, Serum 1.18 0.5 - 1.4 mg/dL [facility] Creatinine Clr Calc Pharmacy 124.3 [facility] Comment:eGFR (calculated fro m the MDRD study equation) and eCrCl(calculated from the Cockcroft-Gault equation) are based ondifferent parameters and may not yield comparable results.If eCrCl result is absurd, please check patient'sheight/weight. Estimated Glomerular Filt Rate >60 [facility] Comment:Chronic Kidney Disea se: Estimated GFR < 60 mL/min/1.81x6Mlfwiz Kidney Disease: Estimated GFR < 15 mL/min/1.73m2 Glucose 180(H) 60 - 115 mg/dL [facility] Calcium 9.5 8.4 - 10.2 mg/dL [facility] Bilirubin, Total 0.7 0.0 - 1.0 mg/dL [facility] Aspartate Amino Transferase 24 5 - 37 U/L [facility] Alanine Aminotransferase 22 0 - 40 U/L [facility] Total Protein 7.8 6.5 - 8.0 g/dL [facility] Albumin Level 3.9 3.5 - 5.0 g/dL [facility] Alkaline Phosphatase 75 39 - 117 U/L [facility] 09/12/2024 10:2 2 AM EDT 09/12/2024 10:31 AM EDT us Generic External Data Provider LAB BLOOD ORDERAB LES Final Result [facility] [address] [place] [address] [phone] * XR Chest 1 View (09/12/2024 10:10 AM EDT) Only the most recent of2 resultswithin the time period is included. Anatomical Region Laterality Modality Chest Radiographic Lupe ging 09/12/2024 10:1 0 AM EDT Narrative 09/12/2024 10:29 AM EDT ? [facility] ?[address] ?[place] [address] ?XRay Report ? Signed ? Patient: Landon,Ross L ?MR#: [id number] ?? [id number] ? : 1980 ?Acct:[id number] ? Age/Sex: 43 / M ?ADM Date: 09/12/ ? Loc: HO.ED ? Attending Dr: ? Ordering Physician: Generic ED Physician ?? Date of Service: 09/12 ?? Procedure(s): XR chest 1V ?? Accession Number(s): [id number] ? cc: Generic ED Physician; SOFIA MITCHELL [...] DD/ 1010 ? TD/TT: 09/12/24 1019 ? Dye Penetrant Testing Technician: ? Procedure Note Maria T Cronin - 09/12/2024 [place] [address] XRay Report Signed Patient: Ross Navarrete LMR#: [id number] : 1980Acct:[id number] Age/Sex: 43 / MADM Date: 09/12/24 Loc: .ED Attending Dr: Ordering Physician: Generic ED Physician Date of Service: 09/12/24 Procedure(s): XR chest 1V Accession Number(s): [id number] cc: Generic ED Physician; SOFIA MITCHELL NP [...] 09/12/24 1026 DD/ 1010 TD/TT: 09/12/24 1019 Dye Penetrant Testing Technician: [facility] External Provider IMG XR PROCEDURES Final Result * SARS-CoV-2 RNA, Influenza A/B, and RSV RNA, Ql NAAT (08/06/2024 12:26 PM EDT) Influenza A PCR NEGATIVE Negative [facility] Influenza B PCR NEGATIVE Negative [facility] Resp Syncy Virus RNA Qual PCR NEGATIVE Negative [facility] SARS COV2 PCR NEGATIVE Negative [facility] Comment:All test results mus t [...] use by authorized laboratories.Testing performed on the [employer] GeneXpert utilizingreal-time RT-PCR.All SARS CoV2 and positive influenza A/B results arereported to [facility]. 08/06/2024 12:2 6 PM EDT 08/06/2024 12:28 PM EDT Generic External Data Provider LAB MICROBIOLOGY - GENERAL ORDERABLES Final Result [facility] [address] [place] [phone] * Prothrombin Time-INR (08/06/2024 10:13 AM EDT) Prothrombin Time 11.7 10.9 - 12.4 SEC [facility] INTERNATIONAL NORM RATIO 1.0 0.9 - 1.1 [facility] Comment:INTERNATIONAL NORMAL IZED RATIO (INR) [...] Provider LAB BLOOD ORDERAB LES Final Result [facility] [address] [place] [phone] * POCT RAMSES-14 Urine Drug Screen [...] Media Lot # [id number] Lot# Expiration Date 025 Blood Capillary blood specimen / Unknown 07/10/2024 2:02 PM EST Sofia RAHMAN POINT OF CARE TEST ENTER/EDIT OR DERABLES Final Result * T-SPOT??.TB (07/03/2024 1:30 PM EST) Pathologist [facility] T Spot TB Negative Negative [facility] Comment:A negative test resu lt [...] as aquantitative test. TS PANEL A 0 [facility] TS PANEL B 0 [facility] Negative Control Passed [facility] Positive Control Passed [facility] Comment:For additional infor mation, please refer tohttp://education.[employer]/faq/IBN365(This link is being provided for informational/educational purposes only.)THIS TEST WAS PERFORMED AT:[employer] [id number] [place] [id number] NICOLAS MD,PHD 07/03/2024 1:30 PM EST 07/03/2024 4:16 PM EST us Generic External Data Provider LAB BLOOD ORDERAB LES Final Result [facility] [address] [place] [address] [phone] * Hepatitis Panel, General (07/03/2024 1:30 PM EST) Pathologist [facility] Hepatitis A IgM Nonreactive Nonreactive [facility] Comment:IgM antibodies to MONTERO V not detected; does not exclude earlyacute or recovered HAV infection. ~Hepatitis B Surface Antibody NONREACTIVE Nonreactive [facility] Comment:Nonreactive: < 8.00 mIU/mL Hepatitis B Core Antibody Nonreactive Nonreactive [facility] Hepatitis C Antibody Nonreactive Nonreactive [facility] Comment:Antibodies to HCV no t detected; does not exclude early acuteHCV infection. Hepatitis B Surface Ag Negative Negative [facility] 07/03/2024 1:30 PM EST 07/03/2024 4:16 PM EST us Generic External Data Provider LAB BLOOD ORDERAB LES Final Result [facility] [address] [place] [address] [phone] * (ABNORMAL) Drug Monitoring, Panel 1, Screen, Urine (07/03/2024 1:30 PM EST) Opiate Screen Urine Not Detected Not Detect [facility] Comment:Opiate cut-off is 30 0 ng/mL.Positive results are unconfirmed and should not be used fornon-medical purposes. Barbiturates, Urine Not Detected Not Detect [facility] Comment:Barbiturate cut-off is 200 ng/mL.Positive results are unconfirmed and should not be used fornon-medical purposes. Phencyclidine Screen Urine Not Detected Not Detect [facility] Comment:Phencyclidine cut-of f is 25 ng/mL.Positive results are unconfirmed and should not be used fornon-medical purposes. Amphetamine Screen Urine Not Detected Not Detect [facility] Comment:Amphetamine cut-off is 1000 ng/mL.Positive results are unconfirmed and should not be used fornon-medical purposes. Benzodiazepines Screen Urine Not Detected Not Detect [facility] Comment:Benzodiazepine cut-o ff is 200 ng/mL.Positive results are unconfirmed and should not be used fornon-medical purposes. Cocaine Screen Urine Not Detected Not Detect [facility] Comment:Cocaine cut-off is 3 00 ng/mL.Positive results are unconfirmed and should not be used fornon-medical purposes. Cannabinoid Screen Urine POSITIVE(A) Not Detect [facility] Comment:Cannabinoid cut-off is 50 ng/mL.Positive results are unconfirmed and should not be used fornon-medical purposes. Methadone Screen, Urine Not Detected Not Detect ng/mL [facility] Comment:Methadone cut-off is 300 ng/mL.Positive results are unconfirmed and should not be used fornon-medical purposes. FENTANYL URINE Not Detected Not Detect [facility] Comment:Fentanyl cut-off is 1 ng/mL.Positive results are unconfirmed and should not be used fornon-medical purposes. Oxycodone Urine Screen Not Detected Not Detect ng/mL [facility] Comment:Oxycodone cut-off is 100 ng/mL.Positive results are unconfirmed and should not be used fornon-medical purposes. Buprenorphine Screen Positive(A) Not Detect ng/mL [facility] Comment:Buprenorphine cut-of f is 5 ng/mL.Positive results are unconfirmed and should not be used fornon-medical purposes. Urine (Urine, Random) 07/03/2024 1:30 PM EST 07/03/2024 4:16 PM EST Jermaine Suárez PMHNP LAB URINE ORDERABLES Final Re sult [facility] [address] [place] [phone] * Lipid Panel, Standard (04/24/2024 11:23 AM EST) Triglycerides 132 <150 mg/dL [facility] Comment:Desirable Triglyceri de: less than 150 mg/dLBorderline High Triglyceride 150-199 mg/dLHigh Triglyceride: 200-499 mg/dLVery High Triglyceride: greater than or equal to 5OO mg/dL Cholesterol 165 <200 mg/dL [facility] Comment:Desirable Cholestero l: less than 200 mg/dLBorderline High Cholesterol: 200-239 mg/dLHigh Cholesterol: greater than 239 mg/dL LDL Cholesterol Calculated 91 <100 mg/dL [facility] Comment:Desirable LDL: less than 100 mg/dLNear Optimal/Above Optimal LDL: 110- 129 mg/dLBorderline High LDL: 130-159 mg/dLHigh LDL: 160-189 mg/dLVery High LDL: greater than or equal to 190 mg/dL HDL Cholesterol 48 >40 mg/dL [facility] Comment:Desirable HDL: great er than 40 mg/dL Note: This HDL assay may give artificially low results in patients with liver disease. 04/24/2024 11:2 3 AM EST 04/24/2024 11:23 AM EST Generic External Data Provider LAB BLOOD ORDERAB LES Final Result Performing Organization Address City/[facility]/ZIP Co de Phone Number [facility] [address] [place] [phone] * HIV-1/2 Antigen and Antibodies, Fourth Generation, with Reflexes (12/13/2023 11:48 AM EDT) HIV AB/AG Nonreactive Nonreactive [facility] Comment:HIV-1 p24 Ag and/or HIV-1/HIV-2 Ab not detected.A test result that is nonreactive does not exclude thepossibility of exposure to or infection with HIV-1 and/orHIV-2. Nonreactive results in this assay for individualswith prior exposure to HIV-1 and/or HIV-2 may be due toantigen and antibody levels that are below the limit ofdetection of this assay.The Blue [email or web address] HIV Ag/Ab Combo assay result andsupplemental assay results should be interpreted inconjunction with the patient's clinical presentation,history and other laboratory results. If the results areinconsistent with clinical evidence, additional testing issuggested to confirm the result. Blood Venous blood specimen / Unknown 12/13/2023 11:48 AM EDT 12/13/2023 12:51 PM EDT us [facility] LAB BLOOD ORDERABLES Final Resul t Performing Organization Address City/[facility]/ZIP Co de Phone Number [facility] [address] [place] [phone] [phone] from Last 3 Months or Most Recently Relevant to Health Maintenance Insurance [place] [employer] [facility] MEDICAID STAND ADULT Care Teams Registration Coordinator Relationship Specialty Start Date End Date Sofia Mitchell ANP [address] [place] [phone] PCP - General Family Medicine 01/18/22
--- OUTSIDE RECORDS SUMMARY | 2024-09-18 08:53 | XMS_ITS | Encounter Summary ---
Author Organization [employer] Address [address] [facility] 7t [place] [address] Care Team Providers Care Color Expert Name Role Phone Naheed Zaman JOSIAH Primary Care Provider [phone] Reason for Visit * Reason Comments Med Refill Encounter Details Date Type Department Care Team ([facility] st Contact Info) Description 09/14/2023 Refill [facility] [address] [place], [place] [phone] Dayna Cardenas MD [address] [place], [place] [phone] Uncomplicated opioid dependence (CMS/HCC) Social History Tobacco [...] Description 09/19/2024 3:00 PM EDT Office Visit [address] [address] Rut Branham MD [address] [place] [address] 09/27/2024 2:45 PM EDT Office Visit [address] [address] Omar Cortes MD [address] [place] [address] 10/08/2024 1:00 PM EDT Office Visit [address] [address] Naheed Zaman ANP [address] [place] [address] 12/12/2024 3:00 PM EDT Clinical Support [address] [address] Tristen Chen, APRIL [address] [place] [address] documented as of this encounter Visit Diagnoses Diagnosis Uncomplicated opioid dependence (CMS/HCC) documented in this encounter Additional Health Concerns Assessment Noted Time PHQ-9 Depression Total Score: 6 11/19/19 23 3:29 PM EDT documented as of this encounter Care Teams Color Expert Relationship Specialty Start Date End Date Naheed Zaman ANP [address] [place] [address] PCP - General Family Medicine 01/18/22 documented as of this encounter
--- OUTSIDE RECORDS SUMMARY | 2024-09-18 08:53 | XMS_ITS | Encounter Summary ---
Author Organization [employer] Address [address] [facility] 7t [place] [address] Care Team Providers Care Safety Clothing And Equipment Developer Name Role Phone Naheed Zaman Primary Care Provider [phone] Reason for Visit * Reason Onset Date Comments Durable Medical Equipment 10/04/2022 Encounter Details Date Type Department Care Team (Late st Contact Info) Description 10/04/2022 Telephone [facility]INE [address] [place] [address] Naheed Zaman ANP [address] [place] [address] Durable Medical Equipment Social History Tobacco Use [...] for Compressions socks. Please contact pt at [phone] documented in this encounter Plan of Treatment Upcoming Encounters Date Type Department Care Team (Late st Contact Info) Description 09/19/2024 3:00 PM EDT Office Visit [address] [address] Rut Branham MD [address] [place] [address] 09/27/2024 2:45 PM EDT Office Visit [address] [address] Omar Cortes MD [address] [place] [address] 10/08/2024 1:00 PM EDT Office Visit [address] [address] Naheed Zaman ANP [address] [place] [address] 12/12/2024 3:00 PM EDT Clinical Support [address] [address] Tristen Chen, RN [address] [place] [address] documented as of this encounter Visit Diagnoses Not on filedocumented in this encounter Care Teams Safety Clothing And Equipment Developer Relationship Specialty Start Date End Date Naheed Zaman ANP [address] [place] [address] PCP - General Family Medicine 01/18/22 documented as of this encounter
--- OUTSIDE RECORDS SUMMARY | 2024-09-18 08:53 | XMS_ITS ---
Author Organization [employer] Address [address] [place] [address] 7 [place] [address] Care Team Providers Care Brine Tank Separator Operator Name Role Phone Naheed Zaman Primary Care Provider [phone] Complex Status:Identified (Enrolling) Start date:09/13/2024 Enrollment reason:ADT Feed Overview ED- Pt went to [facility] on 09/12/24. Case Team Name Relationship Phone Rut Patel RN Registered Nurse(Responsible S taff) Continued Care and Services Coordination
--- OUTSIDE RECORDS SUMMARY | 2024-09-18 08:53 | XMS_ITS | Encounter Summary ---
Author Organization [employer] Address [address] [facility] 7t [place] [address] Care Team Providers Care Bilingual School Psychologist Name Role Phone Naheed Zaman Primary Care Provider [phone] Reason for Visit * Reason Onset Date Comments callback requested 04/23/2024 Encounter Details Date Type Department Care Team ([facility] st Contact Info) Description 04/23/2024 Telephone [facility] [address] [place] [address] Naheed Zaman ANP [address] [place] [address] callback requested Social History Tobacco Use Types [...] returning call to Madie Wesley Callback number [phone] documented in this encounter Plan of Treatment Upcoming Encounters Date Type Department Care Team (Late st Contact Info) Description 09/19/2024 3:00 PM EDT Office Visit [facility] [address] [place] [address] Rut Branham MD [address] [place] [address] 09/27/2024 2:45 PM EDT Office Visit [facility] [address] [place] [address] Omar Cortes MD [address] [place] [address] 10/08/2024 1:00 PM EDT Office Visit [address] [address] Naheed Zaman ANP [address] [place] [address] 12/12/2024 3:00 PM EDT Clinical Support [facility] [address] [place] [address] Tristen Chen, RN [address] [place] [address] documented as of this encounter Visit Diagnoses Not on filedocumented in this encounter Additional Health Concerns Assessment Noted Time PHQ-9 Depression Total Score: 25 024 8:12 AM EDT documented as of this encounter Care Teams Bilingual School Psychologist Relationship Specialty Start Date End Date Naheed Zaman ANP [address] [place] [phone] PCP - General Family Medicine 01/18/22 documented as of this encounter
== END ==
LOC: HO.CARD 08:30
PROVIDERS: PCP Nurse Practitioner Primary Care; Visit Provider Internal Medicine Cardiovascular Disease
DX: R07.9 Chest pain, unspecified (principal)
CPT/HCPCS: 93306; Q9957

== ENCOUNTER → 2024-09-18 08:32 | Outpatient (BNV) | payer MEDICAID, SELFPAY | PROVIDERS: PCP Nurse Practitioner Primary Care; Visit Provider Internal Medicine | DX: I42.2 Other hypertrophic cardiomyopathy (principal) | CPT/HCPCS: 93306 ==

== ENCOUNTER → 2024-09-20 09:14 | Outpatient (REF) | payer MEDICAID, SELFPAY ==
--- OUTSIDE RECORDS SUMMARY | 2024-09-20 09:25 | XMS_ITS | Clinical Summary ---
Author Organization [facility] Address [address] [place] [address] Care Team Providers Care Wash Plant Operator Name Role Phone Unavailable Primary Care [...] recurrent major depressive disorder, with psychotic features ([facility]) 06/10/2024 Assessment & Plan (06/18/2024 11:18 AM EST): Patient refused to be seen, [place] team foreman was notified. Assessment & Plan (06/10/2024 5:36 [...] connected on video call until arrival of [place] Police with recommendation to section patient to [...] - 19 + 3-dose series) 11/14/2023 10/17/2023 [id number] (2023- season) 01/28/202412/29/2 021, 12/10/2020 Imm-Influenza (#1) 2024 02/27/2012, 01/27/2011 Alcohol and Drug Screen 05/29/2024 Diabetes Screening 05/16/2025 05/16/2024, 1 06/24/2023, 04/24/2024, Additional history exists Lipid Screening 04/24/2029 04/24/2024, 05/29, 02/27/2020 Imm-DTaP/Tdap/Td (3 - Td or Tdap) 10/16/2033 024, 03/15/2011 Hepatitis C Screening Completed 10/11/2023 HIV Screening Completed 12/13/2023, 11/26, 12/16/2021 Insurance [facility] MEDICA[place]
--- OUTSIDE RECORDS SUMMARY | 2024-09-20 09:25 | XMS_ITS | Clinical Summary ---
Author Organization [address] [facility] Address [address] [place] [address] Phone Care Team Providers Care Tire Cord Weaver Name Role Phone Naheed Zaman NP Primary Care Provider [phone] Allergies Active Allergy Reactions Criticality Noted Date [...] obesity with BMI of 6 0.0-69.9, adult ([facility] V24, [facility] V28) 04/17/2024 Acquired pes planus 05/11/2017 Pure hypercholesterolemia 05/10/2017 Pulmonary hypertension ([facility] V24, [facility] V28 ) 05/10/2017 Overview (04/17/2024): Mild, ECHO 10/21/10 C, EF 65-70% HTN (hypertension) 05/10/2017 H. pylori infection 05/10/2017 Overview (04/17/2024): + serology 08/07/2009, uncertain if treated Gout 05/10/2017 Elevated liver enzymes 05/10/2017 Overview (04/17/2024): fatty liver DJD (degenerative joint disease) 05/10/2017 Overview (04/17/2024): Mild L knee, Mod L shoulder arthropathy Asthma 05/10/2017 Proteinuria 04/30/2017 DM (diabetes mellitus), type 2 with renal complications ([facility] V24, [facility] V28) 04/30/2017 Spondylosis of lumbar region without myelopathy or radiculopathy 04/26/2017 Overview (04/17/2024): Saw [facility] Rheumatology BETSY (obstructive sleep apnea) 04/26/2017 Overview (04/17/2024): Polysomnography 08/05/2009, [facility] :On cpap 14 cm H2O 10/23/2017 Home Sleep Study insufficient data. 08/2018 - Pulm ordered split night study. Diabetes mellitus type 2 wit h neurological manifestations ([facility] V24, [facility] V28) 04/26/2017 CTS (carpal tunnel syndrome) 04/26/2017 [...] (diabetes mellitus), type 2 with renal complications ([facility] V24, [facility] V28) 04/30/2017 DX:DM (diabetes mellitus), t ype 2 with renal complications (HCC) Proteinuria 04/30/2017 DX:Proteinuria Diabetes mellitus type 2 wit h neurological manifestations ([facility] V24, [facility] V28) 04/26/2017 DX:Diabetes mellitus type 2 with neurological manifestations (HCC) Asthma 05/10/2017 DX:Asthma Elevated liver enzymes 05/10/2017 DX:Elevat ed liver enzymes; COMMENT: fatty liver Gout 05/10/2017 DX:Gout H. pylori infection 05/10/2017 DX:H. 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 DX:History of acute post-streptococcal glomerulonephritis; COMMENT: Hospitalized [facility] with anasarca/ KUNAL 2010, streptolysin titer 1060, kidney bx, Followed in past by Dr Zapata, NSAIDS not recommended HTN (hypertension) 05/10/2017 DX:HTN (hyper tension) Morbid obesity with BMI of 6 0.0-69.9, adult ([facility] V24, [facility] V28) 04/26/2017 DX:Morbid obesity wit h BMI of 60.0-69.9, adult ([facility]) BETSY (obstructive sleep apnea) 04/26/2017 DX :BETSY (obstructive sleep apnea); COMMENT: Polysomnography 08/05/2009, [facility] :On cpap 14 cm H2O Pulmonary hypertension ([facility] V24, [facility] V28) 05/10/2017 DX:Pulmonary hypertension (H CC); COMMENT: Mild, ECHO 10/21/10 [facility], EF 65-70% Otherwise normal [...] myelopathy or radiculopathy; COMMENT: Saw [facility] Rheumatology Family History Medical [...] Ratio (02/27/2020) Urine Albumin Creatinine Ratio Abstracted [facility] Provider HEALTH MAINTENANCE Final Result * Annual BMP Blood Test (02/27/2020) Annual BMP Blood Test Abstracted Result [facility] Provider HEALTH MAINTENANCE Final Result * (ABNORMAL) Hemoglobin A1c (02/27/2020) Pathologist [facility] Hemoglobin A1C 6.9(A) <=6.5 % Blood Venous blood specimen / Unknown Result [facility] Provider LAB BLOOD ORDERABLES Brunilda l Result * Lipid panel (02/27/2020) LDL/HDL Ratio 3 0 - 4 Triglycerides 91 0 - 150 mg/dL Cholesterol 145 0 - 200 mg/dL HDL 58 >=40 mg/dL LDL Cholesterol 69 0 - 100 mg/dL Blood Venous blood specimen / Unknown Result [facility] Provider LAB BLOOD ORDERABLES Brunilda l Result * Hepatitis C Screening (06/22/2017) Hepatitis C Screening Abstracted us Historical Provider HEALTH MAINTENANCE Final Result from Last 3 Months or Most Recently Relevant to Health Maintenance Insurance [place]ICA[place] - [place] Care Teams Tire Cord Weaver Relationship Specialty Start Date End Date Naheed Zaman NP [address] [place] [phone] PCP - General 02/21/24
--- NOTE | 2024-09-20 10:00 | CA_ITS ---
Acquisition Time: 2024-09-20 11:09:35 Total Exercise Time: 00:02:00 Test Indications: cp Medications: see h&p Protocol: LEXISCAN Max HR: 117 BPM 65% of Pred: 178 BPM Max BP: 160/78 mmHG Max Work Load: 1.0 METS Pharmacological stress test with Lexiscan while pt moves his legs in chair, with reports of 7/10 mid chest pressure, SOB, headache, and nusea, without any arrythmias, with normotensive response to injection. Nondiagnostic EKG for ischemia. In recovery, pt treated with IVP Aminophylline 75 mg to reverse Lexiscan after which pt starting to feel back at baseline. Nuclear images pending. Test reviewed with Dr. Cordoba. Referred By: Naheed Zaman Electronically Signed By: Paul Cruz
== END ==
LOC: HO.CARD 09:14
PROVIDERS: PCP Nurse Practitioner Primary Care; Visit Provider Nurse Practitioner Primary Care
DX: Z01.818 Encounter for other preprocedural examination (principal); R07.89 Other chest pain; E11.69 Type 2 diabetes mellitus with other specified complication; E78.5 Hyperlipidemia, unspecified; E66.01 Morbid (severe) obesity due to excess calories
CPT/HCPCS: 93017; J0280; J2785

== ENCOUNTER → 2024-09-20 10:00 | Outpatient (BNV) | payer MEDICAID, SELFPAY | PROVIDERS: PCP Nurse Practitioner Primary Care | DX: R07.9 Chest pain, unspecified (principal); R06.02 Shortness of breath | CPT/HCPCS: 78452; 93016; 93018 ==

== ENCOUNTER 2024-10-01 10:16 | Outpatient (REF) | payer MEDICAID, SELFPAY ==
--- NOTE | ~2024-10-01 | XR_ITS ---
EXAMINATION: XR WRIST, LEFT XR WRIST, RIGHT CLINICAL INFORMATION: M47.819 - Spondylosis without myelopathy or radiculopathy, site unspecified COMPARISON: None available. TECHNIQUE: PA, lateral, oblique, and scaphoid views of both wrists. FINDINGS: LEFT WRIST: No fracture, dislocation, or suspicious bone lesion. There is normal carpal alignment. Joint spaces are preserved. No periarticular osteopenia or erosions. No blunting of the ulnar styloid is evident. Normal soft tissues. RIGHT WRIST: No fracture, dislocation, or suspicious bone lesion. There is normal carpal alignment. Joint spaces are preserved. No periarticular osteopenia or erosions. No blunting of the ulnar styloid is evident. Normal soft tissues. XR/XR Wrist Donovan min 3V IMPRESSION: Normal bilateral wrists. Electronically signed by: Hamzah Mcdaniels MD 10/01/2024 12:10 PM EDT
--- NOTE | ~2024-10-01 | XR_ITS ---
EXAMINATION: XR HAND, RIGHT XR HAND, LEFT CLINICAL INFORMATION: M47.819 - Spondylosis without myelopathy or radiculopathy, site unspecified COMPARISON: None TECHNIQUE: PA, lateral, and oblique views of the each hand and wrist. FINDINGS: RIGHT HAND: The bones and soft tissues are normal. No fracture. Alignment is anatomic. Joint spaces are maintained. No erosions or soft tissue calcifications. LEFT HAND: The bones and soft tissues are normal. No fracture. Alignment is anatomic. Joint spaces are maintained. No erosions or soft tissue calcifications. XR/XR Hand Bilat min 3v IMPRESSION: Normal radiographs of the bilateral hands. Electronically signed by: Hamzah Mcdaniels MD 10/01/2024 12:19 PM EDT
--- OUTSIDE RECORDS SUMMARY | 2024-10-01 11:46 | XMS_ITS | Continuity of Care Document ---
Author Organization [facility] Address [address] [place] [id number]- Care Team Providers Care Patrol Supervisor Name Role Phone Mirna Up NP, V Primary Care Physician Encounter [facility] Date(s): 08/27/24 - 09/26/[address] [id number] Attending Physician: Joy Winkler Admitting Physician: AdmtrJoy Referring Physician: Admtr ArDwight Encounter Type: Triage Allergies, Adverse Reactions, Alerts Substance Criticality Severity Reaction Reaction Severity Status Seafood Active Medications omeprazole 20 mg oral enteric coated capsule 1 capsule = 20 mg, By Mouth, 2 times a day, # 28 capsule, 0 Refills, Maintenance, 09/24/13 3:24:27 PM EDT, EC Capsule, [id number] Start Date: 09/24/13 Status: Ordered Quantity: 28.0 [...] Personnel Name: Mirna Up NP, V Position: [facility] Outreach Member Role: PCP Address: [address] [facility] [address], [place], [place] [address] Telecom: Care Team Related Persons Name: JERRY WILSON Insurance Providers Guarantor name: STEVE JIANG Health Plan Information #: 1 Payer: [employer] Member Number: NA Policy Number: NA Group Number: NA
--- OUTSIDE RECORDS SUMMARY | 2024-10-01 11:46 | XMS_ITS | Clinical Summary ---
Author Organization [facility] Address [address] [place] [address] Care Team Providers Care Cleaner And Presser Name Role Phone Unavailable Primary Care Provider [...] recurrent major depressive disorder, with psychotic features ([facility]) 06/10/2024 Assessment & Plan (06/18/2024 11:18 AM EST): Patient refused to be seen, [place] [employer] records clerk was notified. Assessment & Plan (06/10/2024 5:36 [...] connected on video call until arrival of [place] Police with recommendation to section patient to [...] - 19 + 3-dose series) 11/14/2023 10/17/2023 [id number] (2023- season) 01/28/202412/29/2 021, 12/10/2020 Imm-Influenza (#1) 2024 02/27/2012, 01/27/2011 Alcohol and Drug Screen 05/29/2024 Diabetes Screening 05/16/2025 05/16/2024, 1 06/24/2023, 04/24/2024, Additional history exists Lipid Screening 04/24/2029 04/24/2024, 05/29, 02/27/2020 Imm-DTaP/Tdap/Td (3 - Td or Tdap) 10/16/2033 024, 03/15/2011 Hepatitis C Screening Completed 10/11/2023 HIV Screening Completed 12/13/2023, 11/26, 12/16/2021 Insurance [facility] MED[place]
--- OUTSIDE RECORDS SUMMARY | 2024-10-01 11:46 | XMS_ITS | Clinical Summary ---
Author Organization 175 [facility] Address [address] [place] [address] Phone Care Team Providers Care Silk Snapper Name Role Phone Naheed Zaman NP Primary Care Provider [phone] Allergies Active Allergy Reactions Criticality Noted Date [...] obesity with BMI of 6 0.0-69.9, adult ([facility] V24, [facility] V28) 04/17/2024 Acquired pes planus 05/11/2017 Pure hypercholesterolemia 05/10/2017 Pulmonary hypertension ([facility] V24, [facility] V28 ) 05/10/2017 Overview (04/17/2024): Mild, ECHO 10/21/10 C, EF 65-70% HTN (hypertension) 05/10/2017 H. pylori infection 05/10/2017 Overview (04/17/2024): + serology 08/07/2009, uncertain if treated Gout 05/10/2017 Elevated liver enzymes 05/10/2017 Overview (04/17/2024): fatty liver DJD (degenerative joint disease) 05/10/2017 Overview (04/17/2024): Mild L knee, Mod L shoulder arthropathy Asthma 05/10/2017 Proteinuria 04/30/2017 DM (diabetes mellitus), type 2 with renal complications ([facility] V24, [facility] V28) 04/30/2017 Spondylosis of lumbar region without myelopathy or radiculopathy 04/26/2017 Overview (04/17/2024): Saw [facility] Rheumatology BETSY (obstructive sleep apnea) 04/26/2017 Overview (04/17/2024): Polysomnography 08/05/2009, [facility] :On cpap 14 cm H2O 10/23/2017 Home Sleep Study insufficient data. 08/2018 - Pulm ordered split night study. Diabetes mellitus type 2 wit h neurological manifestations ([facility] V24, [facility] V28) 04/26/2017 CTS (carpal tunnel syndrome) 04/26/2017 [...] (diabetes mellitus), type 2 with renal complications ([facility] V24, [facility] V28) 04/30/2017 DX:DM (diabetes mellitus), t ype 2 with renal complications (HCC) Proteinuria 04/30/2017 DX:Proteinuria Diabetes mellitus type 2 wit h neurological manifestations ([facility] V24, [facility] V28) 04/26/2017 DX:Diabetes mellitus type 2 with neurological manifestations (HCC) Asthma 05/10/2017 DX:Asthma Elevated liver enzymes 05/10/2017 DX:Elevat ed liver enzymes; COMMENT: fatty liver Gout 05/10/2017 DX:Gout H. pylori infection 05/10/2017 DX:H. 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 DX:History of acute post-streptococcal glomerulonephritis; COMMENT: Hospitalized [facility] with anasarca/ KUNAL 2010, streptolysin titer 1060, kidney bx, Followed in past by Dr Zapata, NSAIDS not recommended HTN (hypertension) 05/10/2017 DX:HTN (hyper tension) Morbid obesity with BMI of 6 0.0-69.9, adult ([facility] V24, [facility] V28) 04/26/2017 DX:Morbid obesity wit h BMI of 60.0-69.9, adult ([facility]) BETSY (obstructive sleep apnea) 04/26/2017 DX :BETSY (obstructive sleep apnea); COMMENT: Polysomnography 08/05/2009, [facility] :On cpap 14 cm H2O Pulmonary hypertension ([facility] V24, [facility] V28) 05/10/2017 DX:Pulmonary hypertension (H CC); COMMENT: Mild, ECHO 10/21/10 [facility], EF 65-70% Otherwise normal altho suboptimal views, [...] egion without myelopathy or radiculopathy; COMMENT: Saw [facility] Rheumatology Family History Medical History Relation Name [...] Ratio (02/27/2020) Urine Albumin Creatinine Ratio Abstracted [facility] Provider HEALTH MAINTENANCE Final Result * Annual BMP Blood Test (02/27/2020) Annual BMP Blood Test Abstracted Result [facility] Provider HEALTH MAINTENANCE Final Result * (ABNORMAL) Hemoglobin A1c (02/27/2020) Pathologist [facility] Hemoglobin A1C 6.9(A) <=6.5 % Blood Venous blood specimen / Unknown Result [facility] Provider LAB BLOOD ORDERABLES Brunilda l Result * Lipid panel (02/27/2020) LDL/HDL Ratio 3 0 - 4 Triglycerides 91 0 - 150 mg/dL Cholesterol 145 0 - 200 mg/dL HDL 58 >=40 mg/dL LDL Cholesterol 69 0 - 100 mg/dL Blood Venous blood specimen / Unknown Result [facility] Provider LAB BLOOD ORDERABLES Brunilda l Result * Hepatitis C Screening (06/22/2017) Hepatitis C Screening Abstracted us Historical Provider HEALTH MAINTENANCE Final Result from Last 3 Months or Most Recently Relevant to Health Maintenance Insurance [place] - [place] Care Teams Silk Snapper Relationship Specialty Start Date End Date Naheed Zaman NP [address] [place] [phone] PCP - General 02/21/24
[2024-10-01 12:24] LABS: Vitamin D 25-OH Total 37.8 ng/mL (>30)
[2024-10-06 12:24] LABS: Vitamin D 25-OH, D2 <4 ng/mL; Vitamin D 25-OH, D3 31 ng/mL; Vitamin D 25-OH, Total 31 ng/mL (30-100)
== END 2024-10-01 10:17 | disposition home or self-care (01) ==
LOC: HO.LAB 10:16
PROVIDERS: PCP Nurse Practitioner Primary Care; Visit Provider Student in an Organized Health Care Education/Training Program
DX: M47.819 Spondylosis without myelopathy or radiculopathy, site unspecified (principal); E55.9 Vitamin D deficiency, unspecified
CPT/HCPCS: 36415; 73110; 73130; 82306

== ENCOUNTER → 2024-10-01 10:39 | Outpatient (BNV) | payer MEDICAID, SELFPAY | PROVIDERS: PCP Nurse Practitioner Primary Care; Visit Provider Radiology Diagnostic Radiology | DX: M47.819 Spondylosis without myelopathy or radiculopathy, site unspecified (principal) | CPT/HCPCS: 73110; 73130 ==

== ENCOUNTER 2024-10-02 11:03 | Outpatient (AMB) | payer MEDICAID, SELFPAY ==
--- NOTE | 2024-10-02 11:24 | A.OFFVIS_ITS ---
Vital Signs 10/02/24 11:30 Height 5 ft 5 in Weight 392 lb 13.82 oz BMI 65.4 BP 154/82 H Blood Pressure Location Rt radial Position Sitting Respiration 16 Pulse 56 Pulse Source Pulse Oximeter Pulse Oximetry (%) 98 Oxygen Delivery Method Room Air Intake Visit Reasons: Polyarthralgia *Fibromyalgia *Elevated C-reactive Intake Note: Patient presents for Polyarthralgia, Fibromyalgia and elevated C-reactive follow up. Signal Maintenance Technician Required: Yes Signal Maintenance Technician Language: Media Relations Director Services: Signal Maintenance Technician Present Signal Maintenance Technician Name: Delaney [id number] Information Interpreted: non-clinical & clinical Allergies seafood Allergy (Severe, Verified 10/02/24 11:29) Swelling Medication List - Last Reconciled 10/02/24 by Lorenza Up MD acetaminophen (Acetaminophen Extra Strength) 500 mg PO Q6H PRN adalimumab (Humira(CF) Pen) 40 mg (0.4 mL) subcut Q2W ammonium lactate 12% topical ammonium lactate 12% appl topical atorvastatin 10 mg PO BEDTIME betamethasone valerate 0.1% appl topical buprenorphine-naloxone 8-2 mg (Suboxone) 1 film sublingual TID cholecalciferol (vitamin D3) 1,250 mcg PO QWEEK clotrimazole 1% appl topical BID cyclobenzaprine 10 mg PO TID PRN famotidine 20 mg PO BEDTIME flash glucose sensor (FreeStyle Casey 2 Sensor kit) As directed fluoxetine 60 mg PO DAILY gabapentin 100 mg PO BEDTIME insulin glargine (Lantus Solostar U-100 Insulin) 55 units subcut BEDTIME insulin lispro (Humalog KwikPen (U-100) Insulin) 35 units subcut TID lidocaine 5% 1 patch topical DAILY PRN lisinopril 40 mg PO DAILY meloxicam 15 mg PO DAILY 30 days semaglutide (Ozempic) mg subcut sodium,potassium,mag sulfates 17.5-3.13-1.6 gram (Suprep Bowel Prep Kit) DILUTE as per instructions given zinc oxide 40% (Diaper Rash) topical HPI Comments Details: Patient is a 43 y.o. 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 who presents for follow up Interval History: Patient last seen 05/30/2024 with me. At that time he was started on Humira for seronegative rheumatoid arthritis vs spondyloarthropathy Patient states that he started the Humira This improved his symptoms He feels that the medication has relieved his stiffness. Feels like he can move his body Rheumatologic History: Patient established care 02/2024 for evaluation of elevated CRP in the setting of polyarthalgia Exam did not show specific evidence of synovitis but he did have reduced flexibility of the spine (unsure if this was due to his weight) Further testing including HLA B27 was negative however his MRI showed tenosynovitis bilaterally Given this he was started on a trial of Humira 05/2024 He also had a component of fibromyalgia for which he is on gabapentin 100mg at night - self discontinued due to drowsiness Current Rheumatology Medication(s): Humira 40mg SC every other week [facility] Medical History Seronegative spondyloarthropathy Seronegative spondylitis Vitamin D deficiency Elevated C-reactive protein (CRP) Fibromyalgia Polyarthralgia Narcotic dependence Thrombocytopenia Carpal tunnel syndrome Sleep apnea Pre-op evaluation Hx of migraines BETSY on CPAP Pre-op evaluation HTN (hypertension), benign Insulin dependent type 1 diabetes mellitus Morbid obesity Shoulder dislocation Diabetes Surgical History Hx of colonoscopy History of esophagogastroduodenoscopy (EGD) Hx of hernia repair Hx of appendectomy Family History Mother No problems noted. Brother No problems noted. Daughter No problems noted. Daughter No problems noted. Daughter No problems noted. Son No problems noted. Son No problems noted. 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 Reports shortness of breath and dyspnea on exertion Cards: Denies chest pain, palpitations Skin: Denies Raynaud's, rash, nail changes, photosensitivity, RED CAP: Denies weakness, paresthesias, recurrent falls. Positive for headaches MSK: Complains of joint pain and joint stiffness, joint swelling, muscle weakness, bone pain All other systems reviewed and are unremarkable except noted above Review of Symptoms Physical Exam Vital Signs: Last Vital Signs Pulse 56 10/02/24 11:30 Resp 16 10/02/24 11:30 BP 154/82 H 10/02/24 11:30 Pulse Ox 98 10/02/24 11:30 Oxygen Delivery Method Room Air 10/02/24 11:30 BMI result Body Mass Index 65.4 Vital signs reviewed Physical Examination CONSTITUITIONAL Patient alert and cooperative. Well appearing and in no apparent painful distress Morbidly obese Examined in chair uses cane to ambulate HEENT Conjunctiva and sclera clear. ?Pupils equal round and reactive to light. ?No lymphadenopathy. ? CHEST/RESPIRATORY SYSTEM Normal respiratory effort and able to speak in complete sentences. ?Clear to auscultation bilaterally. ?No crackles, rales, rhonchi, wheezes heard. CARDIAC SYSTEM Regular rate and rhythm. ?S1 and S2 heard no murmurs. ?Radial pulses intact bilaterally MSK Hands: ?Able to make a fist. No synovitis noted to the MCPs, PIPs or DIPs. ?No tenderness to palpation of these joints. Hands are puffy but this appears to be related to his weight and no actual swelling Wrists: ?Full range of motion at the wrists without pain. ?No tenderness to palpation or synovitis noted to the wrists. Elbows: Full range of motion without pain. No tenderness, weakness, swelling, increased warmth or erythema. Shoulders: Full range of active range of motion without pain. No tenderness, weakness, swelling, increased warmth or erythema. Knees: ?Full range of motion. ?No tenderness, swelling, increased warmth or erythema.?No effusion or crepitations Ankles: Full range of motion. ?No tenderness, swelling, increased warmth or erythema.? Feet: ?Negative squeeze test. ?No tenderness to palpation or swelling of the MTPs. Tender points:?Tenderness to palpation of the bilateral trapezius, supraspinatus, greater trochanters, anterior costochondral junctions, bilateral gluteal areas, bilateral suboccipital muscle insertions SKIN Skin intact without rashes. Results Reviewed Results Reviewed: Laboratory Tests 09/12/24 10:22 WBC 8.6 RBC 4.71 Hgb 13.3 L Hct 40.1 L Plt Count 134 L Sodium 136 Potassium 4.1 Chloride 102 Carbon Dioxide 25 BUN 23 H Creatinine 1.18 AST 24 ALT 22 Alkaline Phosphatase 75 Total Protein 7.8 Laboratory Tests 04/24/24 11:23 Rheumatoid Factor < 13.0 Cycl Citrul Peptide IgG <16 COLLETTE Screen NEGATIVE HLA-B27 Negative Hand MRI Left 03/2024 FINDINGS: No acute fracture or dislocation. Normal carpal alignment. Intact articular cartilage. No concerning lytic or blastic osseous lesion. A small amount of fluid within the extensor carpi radialis brevis, extensor carpi radialis longus, and minimally within the extensor digitorum tendon sheaths, consistent with minimal tenosynovitis. A transverse tendon tear or tendon retraction. Intact median nerve. Intact collateral ligaments. No soft tissue mass or fluid collection. No significant joint effusion. Hand MRI Right 03/2024 FINDINGS: No acute fracture or dislocation. No marrow edema or evidence of acute osseous injury. Normal carpal alignment. No concerning lytic or blastic osseous lesion. Minimal degenerative arthritis at the 3rd carpometacarpal joint. No periarticular erosion or evidence of infectious or inflammatory arthropathy. Trace fluid within the extensor carpi radialis brevis and extensor carpi radialis longus tendon sheaths, consistent with minimal tenosynovitis. No transverse tendon tear or tendon retraction. Unremarkable median nerve. Grossly intact collateral ligaments. No evidence of acute injury. No soft tissue mass or fluid collection. No significant joint effusion. Assessment & Plan Assessment & Plan (1) Seronegative spondyloarthropathy: Code(s): M47.819 - Spondylosis without myelopathy or radiculopathy, site unspecified Category: Medical Plan: #Seronegative spondyloarthropathy Patient is a 43 y.o. male with seronegative spondyloarthritis vs seronegative RA as evidence by tenosynovitis noted on the hand MRI. Has some improvement on Humira but notes waning in effect about 7-10 days prior to the dose being due. We will increase the dose frequency Plan - Humira 40mg SC every 7 days - RTC 4 months - Labs before follow up: CBC, CMP, ESR, CRP (2) Fibromyalgia: Code(s): M79.7 - Fibromyalgia Category: Medical Plan: #Fibromyalgia Has some improvement with gabapentin Unable to optimize dosing due to drowsiness in the AM Will try pregabalin Plan - Stop gabapentin - Start pregabalin 50mg nightly - Encouraged light exercise and stretches as well as weight loss (3) Adalimumab (Humira) long-term use: Code(s): Z79.620 - intermodal customer service (current) use of immunosuppressive biologic Plan: #Long-term Use of TNF Inhibitors: Humira Discussed with the patient the benefits and risks of TNF inhibitors for the management of the rheumatic condition Benefits include reduce pain, maintenance of remission and reduction of flares as well as ?progression of the disease Risks include injection sites/infusion reactions, serious infections (such as bacterial infections, opportunistic infections), malignancy, delaminating syndromes, autoimmune phenomena, CHF exacerbations, palmar plantar psoriasis and cytopenias Recommended rotating injection sites, and holding medication during and for up to 1 week after resolution of a febrile illness or open skin wound Plan I spent 30 minutes reviewing the record and labs, seeing the patient, discussing the treatment plan and documenting in the medical record ? Medications: New pregabalin 50 mg PO BEDTIME 90 caps 1RF M79.7 - Fibromyalgia Changed From adalimumab (Humira(CF) Pen) 40 mg (0.4 mL) subcut Q2W 2 ea 6RF M46.90 - Uns pecified inflammatory spondylopathy, site unspecified, M47.819 - Spondylosis without myelopathy or radiculopathy, site unspecified To adalimumab (Humira(CF) Pen) 40 mg (0.4 mL) subcut QWEEK 4 ea 5RF M46.90 - Unspecified inflammatory spondylopathy, site unspecified, M47.819 - Spondylosis without myelopathy or radiculopathy, site unspecified Discontinued gabapentin Discontinued Reason: Doctor's Order 100 mg PO BEDTIME 90 caps 0RF Coding Level of Care Code Est Pt Level 4 (49982) Complex EM visit Add On G2211 Diagnoses Seronegative spondyloarthropathy M47.819 Fibromyalgia M79.7 Adalimumab (Humira) long-term use Z79.620
[2024-10-02 11:30] VITALS: BP 154/82; PULSE 56; RESP 16; O2SAT 98; BMI 65.4
--- OUTSIDE RECORDS SUMMARY | 2024-10-02 12:32 | XMS_ITS | Encounter Summary ---
Author Organization [employer] Address [address] [place] [address] Care Team Providers Care Kinesiotherapist Name Role Phone Naheed Zaman Primary Care Provider [phone] Encounter Details Date Type Department Care Team ([facility] st Contact Info) Description 09/27/2024 Patient Outreach [facility] [address] [place] [address] Naheed Zaman ANP [address] [place] [address] Social History Tobacco Use Types Packs/Day Years [...] Care Team (Late st Contact Info) Description 10/08/2024 1:00 PM EDT Office Visit [facility] [address] [place] [address] Naheed Zaman ANP [address] [place] [address] 12/12/2024 3:00 PM EDT Clinical Support [address] [address] Tristen Chen, APRIL [address] [place] [address] documented as of this encounter Visit Diagnoses Not on filedocumented in this encounter Additional Health Concerns Assessment Noted Time PHQ-9 Depression Total Score: 25 024 8:12 AM EDT documented as of this encounter Care Teams Kinesiotherapist Relationship Specialty Start Date End Date Naheed Zaman ANP [address] [place] [address] PCP - General Family Medicine 01/18/22 documented as of this encounter
--- OUTSIDE RECORDS SUMMARY | 2024-10-02 12:32 | XMS_ITS | Encounter Summary ---
Author Organization [employer] Address [address] [facility] 7t [place] [address] Care Team Providers Care Ux Ui Designer Name Role Phone Naheed Zaman Primary Care Provider [phone] Real Gomez MD Unavailable Encounter Details Date Type Department Care Team ([facility] Contact Info) Description 07/28/2022 Abstract [facility] ADULT DENTAL [address] [place] [address] Zay Schmidt DDS [address] [place] [address] Social History Tobacco Use Types Packs/Day Years [...] Upcoming Encounters Date Type Department Care Team ([facility] Contact Info) Description 10/08/2024 1:00 PM EDT Office Visit [facility] [address] [place] [address] Naheed Zaman ANP [address] [place] [address] 12/12/2024 3:00 PM EDT Clinical Support [facility] [address] [place] [address] Tristen Chen, RN [address] [place] [address] documented as of this encounter Visit Diagnoses Not on filedocumented in this encounter Care Teams Ux Ui Designer Relationship Specialty Start Date End Date Naheed Zaman ANP [address] [place] [address] PCP - General Family Medicine 01/18/22 Real Gomez MD [address] [place] [address] 3rd [place] [address] Cardiology 10/01/24 documented as of this encounter
--- OUTSIDE RECORDS SUMMARY | 2024-10-02 12:32 | XMS_ITS | Encounter Summary ---
Author Organization [employer] Address [address] [facility] 7t [place] [address] Care Team Providers Care Summer Law Clerk Name Role Phone Naheed Zaman Primary Care Provider [phone] Reason for Visit * Reason Onset Date Comments No Show 09/27/2024 Encounter Details Date Type Department Care Team ([facility] Contact Info) Description 09/27/2024 Telephone [facility] MED[facility] [address] [place] [address] Naheed Zaman ANP [address] [place] [address] No Show Social History Tobacco Use Types Packs/Day Years [...] encounter Miscellaneous Notes * Telephone Encounter - Janet Brooke - 09/27/2024 3:12 PM EDT PT no show to 09/27/24 apt documented in this encounter Plan of Treatment Upcoming Encounters Date Type Department Care Team (Late st Contact Info) Description 10/08/2024 1:00 PM EDT Office Visit [facility] [address] [place] [address] Naheed Zaman ANP [address] [place] [address] 12/12/2024 3:00 PM EDT Clinical Support [facility] [address] [place] [address] Tristen Chen, APRIL [address] [place] [address] documented as of this encounter Visit Diagnoses Not on filedocumented in this encounter Additional Health Concerns Assessment Noted Time PHQ-9 Depression Total Score: 25 024 8:12 AM EDT documented as of this encounter Care Teams Summer Law Clerk Relationship Specialty Start Date End Date Naheed Zaman ANP [address] [place] [address] PCP - General Family Medicine 01/18/22 documented as of this encounter
--- OUTSIDE RECORDS SUMMARY | 2024-10-02 12:32 | XMS_ITS | Encounter Summary ---
Author Organization [employer] Address [address] [facility] 7t [place] [address] Care Team Providers Care Mathematical Engineer Name Role Phone Naheed Zaman Primary Care Provider [phone] Real Gomez MD Unavailable Reason for Visit * Reason Onset Date Comments Durable Medical Equipment 10/04/2022 Encounter Details Date Type Department Care Team (Late st Contact Info) Description 10/04/2022 Telephone [facility] MED[facility] [address] [place] [address] Naheed Zaman ANP [address] [place] [address] Durable Medical Equipment Social History Tobacco Use [...] In the last 10 days, have yo michel been in contact with someone who was confirmed or suspected to have Coronavirus/COVID-19? No / Unsure 09/22/2022 1:47 PM EDT documented as of this encounter Miscellaneous Notes * Telephone Encounter - Christiesimone Dale Echols - 10/04/2022 12:13 PM EDT Tc from pt requesting a Script for Compressions socks. Please contact pt at [phone] documented in this encounter Plan of Treatment Upcoming Encounters Date Type Department Care Team (Late st Contact Info) Description 10/08/2024 1:00 PM EDT Office Visit [address] [address] Naheed Zaman ANP [address] [place] [address] 12/12/2024 3:00 PM EDT Clinical Support [address] [address] Tristen Chen, APRIL [address] [place] [address] documented as of this encounter Visit Diagnoses Not on filedocumented in this encounter Care Teams Mathematical Engineer Relationship Specialty Start Date End Date Naheed Zaamn ANP [address] [place] [address] PCP - General Family Medicine 01/18/22 Real Gomez MD [address] [place] [address] 3rd [place] [address] Cardiology 10/01/24 documented as of this encounter
--- OUTSIDE RECORDS SUMMARY | 2024-10-02 12:32 | XMS_ITS ---
Author Organization [employer] Address [address] [address] Care Team Providers Care Paper Goods Machine Set Up Operator Name Role Phone Naheed Zaman Primary Care Provider [phone] Real Gomez MD Unavailable CHW Complex Status:Outreach In Progress (Enrolling) Start date:09/13/2024 Enrollment reason:ADT Feed Overview ED- Pt went [facility] [place]. Case Team Name Relationship Phone Josh Kebede (Responsible Staff) [phone] Continued Care and Services Coordination
--- OUTSIDE RECORDS SUMMARY | 2024-10-02 12:32 | XMS_ITS | Encounter Summary ---
Author Organization [employer] Address [address] [facility] 7t [place] [address] Care Team Providers Care Commercial Producer Name Role Phone Naheed Zaman Primary Care Provider [phone] Real Gomez MD Unavailable Reason for Visit * Reason Onset Date Comments [facility] 12/12[facility]2023 Encounter Details Date Type Department Care Team ([facility] st Contact Info) Description 12/12/2023 Telephone [facility] [address] [place], [place] [phone] Zay Schmidt DDS [address] [place], [place] [phone] [facility] Social History Tobacco Use Types Packs/Day [...] the medicationas scripted for dental relief. Pain [facility] office phone number [phone] documented in this encounter Plan of Treatment Upcoming Encounters Date Type Department Care Team (Late st Contact Info) Description 10/08/2024 1:00 PM EDT Office Visit [address] [address] Naheed Zaman ANP [address] [place] [address] 12/12/2024 3:00 PM EDT Clinical Support [address] [address] Tristen Chen, APRIL [address] [place] [address] documented as of this encounter Visit Diagnoses Not on filedocumented in this encounter Additional Health Concerns Assessment Noted Time PHQ-9 Depression Total Score: 23 024 3:25 PM EDT documented as of this encounter Care Teams Commercial Producer Relationship Specialty Start Date End Date Naheed Zaman ANP [address] [place] [address] PCP - General Family Medicine 01/18/22 Real Gomez MD [address] [place] [address] 3rd [place] [address] Cardiology 10/01/24 documented as of this encounter
--- OUTSIDE RECORDS SUMMARY | 2024-10-02 12:32 | XMS_ITS | Encounter Summary ---
Author Organization [employer] Address [address] [facility] 7t [place] [address] Care Team Providers Care Mold Blower Name Role Phone Naheed Zaman Primary Care Provider [phone] Real Gomez MD Unavailable Reason for Visit * Reason Comments Med Refill Encounter Details Date Type Department Care Team (Late st Contact Info) Description 08/18/2023 Refill [facility] [address] [place] [address] Naheed Zaman ANP [address] [place] [address] Chronic low back pain without sciatica, unspecified [...] Description 10/08/2024 1:00 PM EDT Office Visit [facility] [address] [place] [address] Naheed Zaman ANP [address] [place] [address] 12/12/2024 3:00 PM EDT Clinical Support [facility] [address] [place] [address] Tristen Chen, APRIL [address] [place] [address] documented as of this encounter Visit Diagnoses Diagnosis Chronic low back pain without sciatica, unspecified back pain laterality documented in this encounter Additional Health Concerns Assessment Noted Time PHQ-9 Depression Total Score: 6 11/19/19 23 3:29 PM EDT documented as of this encounter Care Teams Mold Blower Relationship Specialty Start Date End Date Naheed Zaman ANP [address] [place] [address] PCP - General Family Medicine 01/18/22 Real Gomez MD [address] [place] [address] Drive 3rd [place] [address] Cardiology 10/01/24 documented as of this encounter
--- OUTSIDE RECORDS SUMMARY | 2024-10-02 12:32 | XMS_ITS | Encounter Summary ---
Author Organization [employer] Address [address] [facility] 7t [place] [address] Care Team Providers Care Lawn Care Professional Name Role Phone Naheed Zaman Primary Care Provider [phone] Real Gomez MD Unavailable Encounter Details Date Type Department Care Team (Late st Contact Info) Description 10/01/2024 Orders Only GENERIC EXTERNAL DATA DEPARTMENT Provider, [...] Visit [facility] [address] [place] [address] Naheed Zaman, ANP [address] [place] [address] 12/12/2024 3:00 PM EDT Clinical Support [facility] [address] [place] [address] Tristen Chen, APRIL [address] [place] [address] documented as of this encounter Procedures Procedure Name Priority Date/Time Associated Diagnosis Comments VITAMIN D,25-OH,TOTAL,IA Routine 10/01/2024 10:27 AM EDT documented in this encounter Results * Vitamin D, 25-Hydroxy, Total, Immunoassay (10/01/2024 10:27 AM EDT) Vitamin D 25-OH Total 37.8 >30 ng/mL [facility] Comment: Health Based Reference Values*< 20 ??ng/mL ??Fxyaxhrni12-07 ng/mL ??Insufficient> 30 ??ng/mL ??Sufficient*Rony TOMAS. N Engl J Med. 2007;357:266-280There is no well-established upper level of normal vitamin Dlevels. Some laboratories use 50 ng/mL as an upper limit ofnormal. However, toxicity is patient-dependent and may occurat any level. Careful correlation with the patient'spresentation is necessary and, if there is concern forvitamin D toxicity, treatment should be consideredirrespective of the serum level.Care must be taken in interpreting Vitamin D results fromdifferent laboratories and methodologies. ??Published datademonstrated that results from patients undergoinghemodialysis may show a negative bias when tested withvarious automated 25-OH vitamin D assays when compared toLC- MS/MS.When testing samples from patients whose predominant form ofVitamin D is Vitamin D2, such as patients receiving VitaminD2 supplementation, results that are subtherapeutic shouldbe confirmed with another method such as LC-MS/MS. 10/01/2024 10:2 7 AM EDT 10/01/2024 10:33 AM EDT us Generic External Data Provider LAB BLOOD ORDERAB LES Final Result [facility] [address] [place] [address] [phone] documented in this encounter Visit Diagnoses Not on filedocumented in this encounter Additional Health Concerns Assessment Noted Time PHQ-9 Depression Total Score: 25 024 8:12 AM EDT documented as of this encounter Care Teams Lawn Care Professional Relationship Specialty Start Date End Date Naheed Zaman ANP [address] [place] [address] PCP - General Family Medicine 01/18/22 Real Gomez MD [address] 3rd [place] [address] Cardiology 10/01/24 documented as of this encounter
--- OUTSIDE RECORDS SUMMARY | 2024-10-02 12:32 | XMS_ITS | Clinical Summary ---
Author Organization [facility] Address [address] [place] [address] Phone Care Team Providers Care Pantograph Operator Name Role Phone Naheed Zaman NP Primary Care Provider Allergies Active Allergy Reactions [...] obesity with BMI of 6 0.0-69.9, adult ([facility] V24, [facility] V28) 04/17/2024 Acquired pes planus 05/11/2017 Pure hypercholesterolemia 05/10/2017 Pulmonary hypertension ([facility] V24, [facility] V28 ) 05/10/2017 Overview (04/17/2024): Mild, ECHO 10/21/10 C, EF 65-70% HTN (hypertension) 05/10/2017 H. pylori infection 05/10/2017 Overview (04/17/2024): + serology 08/07/2009, uncertain if treated Gout 05/10/2017 Elevated liver enzymes 05/10/2017 Overview (04/17/2024): fatty liver DJD (degenerative joint disease) 05/10/2017 Overview (04/17/2024): Mild L knee, Mod L shoulder arthropathy Asthma 05/10/2017 Proteinuria 04/30/2017 DM (diabetes mellitus), type 2 with renal complications ([facility] V24, [facility] V28) 04/30/2017 Spondylosis of lumbar region without myelopathy or radiculopathy 04/26/2017 Overview (04/17/2024): Saw [facility] [place] [place] Rheumatology BETSY (obstructive sleep apnea) 04/26/2017 Overview (04/17/2024): Polysomnography 08/05/2009, [facility] :On cpap 14 cm H2O 10/23/2017 Home Sleep Study insufficient data. 08/2018 - Pulm ordered split night study. Diabetes mellitus type 2 wit h neurological manifestations ([facility] V24, [facility] V28) 04/26/2017 CTS (carpal tunnel syndrome) 04/26/2017 [...] (diabetes mellitus), type 2 with renal complications ([facility] V24, [facility] V28) 04/30/2017 DX:DM (diabetes mellitus), t ype 2 with renal complications (HCC) Proteinuria 04/30/2017 DX:Proteinuria Diabetes mellitus type 2 wit h neurological manifestations ([facility] V24, [facility] V28) 04/26/2017 DX:Diabetes mellitus type 2 with neurological manifestations (HCC) Asthma 05/10/2017 DX:Asthma Elevated liver enzymes 05/10/2017 DX:Elevat ed liver enzymes; COMMENT: fatty liver Gout 05/10/2017 DX:Gout H. pylori infection 05/10/2017 DX:H. 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 DX:History of acute post-streptococcal glomerulonephritis; COMMENT: Hospitalized [facility] [place] [place] with anasarca/ KUNAL 2010, streptolysin titer 1060, kidney bx, Followed in past by Dr Zapata, NSAIDS not recommended HTN (hypertension) 05/10/2017 DX:HTN (hyper tension) Morbid obesity with BMI of 6 0.0-69.9, adult ([facility] V24, [facility] V28) 04/26/2017 DX:Morbid obesity wit h BMI of 60.0-69.9, adult ([facility]) BETSY (obstructive sleep apnea) 04/26/2017 DX :BETSY (obstructive sleep apnea); COMMENT: Polysomnography 08/05/2009, [facility] [place] [place] :On cpap 14 cm H2O Pulmonary hypertension ([facility] V24, [facility] V28) 05/10/2017 DX:Pulmonary hypertension (H [facility]); COMMENT: Mild, ECHO 10/21/10 [facility] [place] [place], EF 65-70% Otherwise normal altho suboptimal views, [...] egion without myelopathy or radiculopathy; COMMENT: Saw [facility] [place] [place] Rheumatology Family History Medical History Relation Name [...] Ratio (02/27/2020) Urine Albumin Creatinine Ratio Abstracted [facility] Provider HEALTH MAINTENANCE Final Result * Annual BMP Blood Test (02/27/2020) Annual BMP Blood Test Abstracted Result [facility] Provider HEALTH MAINTENANCE Final Result * (ABNORMAL) Hemoglobin A1c (02/27/2020) Pathologist [facility] Hemoglobin A1C 6.9(A) <=6.5 % Blood Venous blood specimen / Unknown Result [facility] Provider LAB BLOOD ORDERABLES Brunilda l Result * Lipid panel (02/27/2020) LDL/HDL Ratio 3 0 - 4 Triglycerides 91 0 - 150 mg/dL Cholesterol 145 0 - 200 mg/dL HDL 58 >=40 mg/dL LDL Cholesterol 69 0 - 100 mg/dL Blood Venous blood specimen / Unknown Result [facility] Provider LAB BLOOD ORDERABLES Brunilda l Result * Hepatitis C Screening (06/22/2017) Hepatitis C Screening Abstracted us Historical Provider HEALTH MAINTENANCE Final Result from Last 3 Months or Most Recently Relevant to Health Maintenance Insurance [place]ICA[place] - [place] Care Teams Pantograph Operator Relationship Specialty Start Date End Date Naheed Zaman NP [address] [place] [phone] PCP - General 02/21/24
--- OUTSIDE RECORDS SUMMARY | 2024-10-02 12:32 | XMS_ITS | Encounter Summary ---
Author Organization [employer] Address [address] [place] [address] [address] [place] [address] Care Team Providers Care Music Composition Teacher Name Role Phone Naheed Zaman Primary Care Provider [phone] Real Gomez MD Unavailable Reason for Visit * Reason Comments Med Refill Encounter Details Date Type Department Care Team (Late st Contact Info) Description 02/02/2023 Refill [facility] [address] [place] [address] Rut Branham MD [address] [place], [place] [phone] Uncomplicated opioid dependence (CMS/HCC) Social History Tobacco [...] Description 10/08/2024 1:00 PM EDT Office Visit [facility] [address] [place] [address] Naheed Zaman ANP [address] [place] [address] 12/12/2024 3:00 PM EDT Clinical Support [facility] [address] [place] [address] Tristen Chen, RN [address] [place] [address] documented as of this encounter Visit Diagnoses Diagnosis Uncomplicated opioid dependence (CMS/HCC) documented in this encounter Additional Health Concerns Assessment Noted Time PHQ-9 Depression Total Score: 6 11/19/19 23 3:29 PM EDT documented as of this encounter Care Teams Music Composition Teacher Relationship Specialty Start Date End Date Naheed Zaman ANP [address] [place] [phone] PCP - General Family Medicine 01/18/22 Real Gomez MD [address] [place] [address] [address] [place] [address] Cardiology 10/01/24 documented as of this encounter
--- OUTSIDE RECORDS SUMMARY | 2024-10-02 12:32 | XMS_ITS | Encounter Summary ---
Author Organization [employer] Address [address] [facility] [address] [place] [address] Care Team Providers Care Scallop Dredger Name Role Phone Naheed Zaman Primary Care Provider [phone] Encounter Details Date Type Department Care Team ([facility] st Contact Info) Description 09/27/2024 Patient Outreach [facility] [address] [place] [address] Naheed Zaman ANP [address] [place] [address] Social History Tobacco Use Types Packs/Day Years [...] Description 10/08/2024 1:00 PM EDT Office Visit [facility] [address] [place] [address] Naheed Zaman ANP [address] [place] [phone] 12/12/2024 3:00 PM EDT Clinical Support [address] [address] Tristen Chen, APRIL [address] [place] [phone] documented as of this encounter Visit Diagnoses Not on filedocumented in this encounter Additional Health Concerns Assessment Noted Time PHQ-9 Depression Total Score: 25 024 8:12 AM EDT documented as of this encounter Care Teams Scallop Dredger Relationship Specialty Start Date End Date Naheed Zaman ANP [address] [place] [phone] PCP - General Family Medicine 01/18/22 documented as of this encounter
--- OUTSIDE RECORDS SUMMARY | 2024-10-02 12:32 | XMS_ITS | Encounter Summary ---
Author Organization [employer] Address [address] [facility] [address] [place] [address] Care Team Providers Care Circulation Crew Leader Name Role Phone Naheed Zaman Primary Care Provider Real Gomez MD Unavailable Reason for Visit * Reason Comments Med Refill Encounter Details Date Type Department Care Team (Late st Contact Info) Description 09/26/2024 Refill [facility] [address] [place] [address] Desirae Cowan MD [address] [place] [address] Social History Tobacco Use Types Packs/Day Years [...] Description 10/08/2024 1:00 PM EDT Office Visit [facility] [address] [place] [phone] Naheed Zaman ANP [address] [place] [address] 12/12/2024 3:00 PM EDT Clinical Support [address] [address] Tristen Chen, APRIL [address] [place] [phone] documented as of this encounter Visit Diagnoses Not on filedocumented in this encounter Additional Health Concerns Assessment Noted Time PHQ-9 Depression Total Score: 25 024 8:12 AM EDT documented as of this encounter Care Teams Circulation Crew Leader Relationship Specialty Start Date End Date Naheed Zaman ANP [address] [place] [phone] PCP - General Family Medicine 01/18/22 Real Gomez MD [address]rd [place] [address] Cardiology 10/01/24 documented as of this encounter
--- OUTSIDE RECORDS SUMMARY | 2024-10-02 12:32 | XMS_ITS | Clinical Summary ---
Author Organization [employer] Address [address] [facility] [address] [place] [address] Care Team Providers Care Telecom Analyst Name Role Phone Sofia Mitchell Primary Care Provider [phone] Real Gomez MD Unavailable Allergies Active Allergy Reactions Criticality Noted Date Comments Shellfish Allergy 05/02/2022 Medications * This document contains information received from the source organization and may not represent a complete record from that organization. Alcohol Swabs (Alcohol Prep) 70 % pads USE FOUR TIMES DAILY WITH INSULIN Active Blood Glucose Monitoring Suppl (FreeStyle [place] Lite) w/Device kit TEST BLOOD SUGAR FOUR TIMES DAILY Active FREESTYLE LITE test strip TEST BLOOD SUGAR FOUR TIMES DAILY Active glucose blood (FREESTYLE LITE) test strip check fingerstick 4 times a day Active Sure Comfort Pen Mason 31G X 5 MM misc USE FOUR [...] Active beta carotene (vitamin A) 3 MG (86384 UT) capsule TAKE 2 CAPSULES BY MOUTH EVERY DAY FOR 2 WEEKS Active EPINEPHrine (Epipen) 0.3 MG/0.3ML injection syringeIndicatio ns:Allergy to shellfish INJECT INTRAMUSCULARLY DIRECTED ON PACKAGE AND GO TO EMERGENCY ROOM 2 each 023 Active famotidine (Pepcid) 20 MG tabletIndication s:Epigastric abdominal pain Take 1 tablet twice daily as needed for acid reflux 40 tablet 024 Active Blood Pressure Monitor kitIndications:P ulmonary hypertension ([facility]) 1 kit in the morning. 1 kit 024 Active metoclopramide (Reglan) 10 MG tablet 1 tablet as needed every 6 hrs for nausea/vomiting 40 tablet 024 Active atorvastatin (Lipitor) 10 MG tabletIndication s:Type 2 diabetes mellitus with hyperlipidemia ([facility]/HCC) ([facility]) Take 1 tablet (10 mg) by mouth at bedtime. 90 tablet 3 024 Active GaviLAX 17 GM/SCOOP powder TAKE DIRECTED BY MOUTH THE DAY BEFORE YOUR PROCEDURE. 024 Active Carafate 1 GM/10ML suspension TAKE 10MLS BY MOUTH 4 TIMES DAILY BEFORE MEALS/BEDTIME FOR REFLUX FOR 4 WEEKS Active chlorhexidine (Peridex) 0.12 % solution Swish 15 mL morning and night for 1 minute. Spit, do not swallow. Do not eat or drink for 30 minutes following use. 473 mL Active Continuous Glucose School Guidance Counselor (FreeStyle Casey 2 [place]) deviceIndication s:Diabetes mellitus with albuminuria (CMS/HCC) ([facility]) Scan sensor every 8 hours 1 each Active Continuous Glucose Sensor (FreeStyle Casey 2 Sensor) miscIndications: Diabetes mellitus with albuminuria (CMS/HCC) ([facility]) Apply 1 sensor every 14 days 2 each 024 Active glucose blood (FreeStyle Precision Lefty Test) test stripIndications :Diabetes mellitus with albuminuria (CMS/HCC) ([facility]) Use to test blood sugar 3 times daily 100 each 12 024 2024 Active glucose (BD Glucose) 5 g chewable tabletIndication s:Type 2 diabetes mellitus with hyperlipidemia (CMS/HCC) ([facility]) Chew 3 tablets (15 g) if needed for low blood sugar. 50 tablet 5 024 2024 Active semaglutide (Ozempic) 2 MG/1.5ML [...] s:Type 2 diabetes mellitus with hyperlipidemia (CMS/HCC) ([facility]),Persis tent proteinuria Take 1 tablet (40 mg) by mouth Once per day. 90 tablet 1 025 Active betamethasone valerate (Valisone) 0.1 % creamIndications :Venous stasis dermatitis of both lower extremities APPLY TOPICALLY TWICE DAILY IN THE MORNING AND AT BEDTIME NEEDED FOR DRY SKIN 45 g 2 025 Active Suboxone 8-2 MG SL filmIndications: Uncomplicated opioid dependence (CMS/[facility]) Place 3 Film under the tongue Once per day. 84 Film 2 025 2024 Active esomeprazole (NexIUM) [address] capsuleIndicatio ns:Gastroesophag eal reflux disease, unspecified whether esophagitis present TAKE 1 CAPSULE BY MOUTH EVERY MORNING BEFORE BREAKFAST. DO NOT BREAK, CRUSH, DISSOLVE OR CHEW 90 capsule 1 025 Active ARIPiprazole (Abilify) 10 MG tabletIndication s:Severe episode of recurrent major depressive disorder, without psychotic features (CMS/HCC) Take 1.5 tablets (15 mg) by mouth Once per day. 45 tablet 025 2024 Active hydrOXYzine pamoate (Vistaril) 25 [...] morning. 90 capsule 1 025 2024 Active esomeprazole (NexIUM) [address] capsuleIndicatio ns:Gastroesophag eal reflux disease, unspecified whether esophagitis present Take 1 capsule (40 mg) by mouth before breakfast. Do not open capsule. 90 capsule 1 024 2024 Discontinued Suboxone 8-2 MG SL [...] for anxiety. 30 capsule 1 025 2024 Discontinued( Reorder (will not trigger notification to Pharmacy)) FLUoxetine (PROzac) 20 MG capsuleIndicatio ns:Severe episode of recurrent major depressive disorder, without psychotic features (CMS/HCC) Take 3 capsules (60 mg) by mouth in the morning. 90 capsule 1 025 2024 Discontinued( Reorder (will not trigger notification to Pharmacy)) ARIPiprazole (Abilify) 10 MG tabletIndication s:Severe episode of recurrent major depressive disorder, without psychotic features (CMS/HCC) Take 0.5 tablets (5 mg) by mouth Once per day. 15 tablet 025 2024 Discontinued( Reorder (will not trigger [...] Health Integration Plan Internal Follow up with [facility] Patient Self Plan Patient to reach out to [facility] team as needed, Comply with medication , and Patient to reach out to [facility] as needed Assessment & Plan (01/19/2024 8:43 AM EDT): PROGRESS NOTE: ID: [id number] is a 43 y.o. straight-identified cis-male with [...] Health Integration Plan Internal Follow up with [facility] Patient Self Plan Patient to reach out to [facility] team as needed, Comply with medication , [...] Health Integration Plan Internal Follow up with [facility] Patient Self Plan Patient to utilize skills provided in intervention , Patient to reach out to [facility] team as needed, and Patient [...] Health Integration Plan Internal Follow up with [facility] External OP psychiatry Referral Patient Self Plan Patient to reach out to [facility] team as needed, Comply with medication , Patient to engage in OP therapy , and Patient to reach out to [facility] as needed Assessment & Plan (09/20/2023 10:06 AM EDT): New/Additional Services needed Off-site services for Behavioral Health Integration Plan External OP therapy referral Patient Self Plan Patient to utilize skills provided in intervention , Patient to reach out to [facility] team as needed, Comply with [...] explained that she tried referring pt to [facility] and other centers and pt;s can not be evaluated for plastic surgery w current BMI -I request referral to be sent to [facility] but was explained is the [...] hypertension 05/10/2017 Overview (07/28/2022): Mild, ECHO 10/21/10 C, EF 65-70% H. pylori infection 05/10/2017 Overview (07/28/2022): + serology 08/07/2009, uncertain if treated Gout 05/10/2017 Elevated liver enzymes 05/10/2017 Overview (07/28/2022): fatty liver Arthritis 05/10/2017 Overview (07/28/2022): Mild L knee, Mod L shoulder arthropathy Asthma 05/10/2017 Spondylosis of lumbar region without myelopathy or radiculopathy 04/26/2017 Overview (07/28/2022): Saw [facility] Rheumatology CTS (carpal tunnel syndrome) 04/26/2017 Assessment [...] sleep apnea) 05/18/2015 Overview (07/28/2022): Polysomnography 08/05/2009, [facility] :On cpap 14 cm H2O 10/23/2017 Home Sleep Study insufficient data. 08/2018 - Pulm ordered split night study. Proteinuria 05/18/2015 Encounters * This document contains information received from the source organization and may not represent a complete record from that organization. Date Type Department Care Team Description 10/02/2024 Telephone [facility] [address] [place] [address] Arlette Hill, RN Results 10/01/2024 Orders Only [facility] [address] [place] [address] Sofia Mitchell ANP 10/01/2024 Orders Only GENERIC EXTERNAL DATA DEPARTMENT Provider, Generic External Data 09/27/[address] [address] Sofia Mitchell ANP Appointment Request 09/27/[address] [address] Sofia Mitchell ANP No Show 09/27/2024 Patient Outreach [facility] [address] [place] [address] Sofia Mitchell ANP 09/27/2024 Patient Outreach [address] [address] Sofia Mitchell ANP 09/26/2024 Refill [facility] C[facility] [address] [place] [phone] Desirae Cowan MD 09/22/2024 Refill [facility] [address] [place] [phone] Sofia Mitchell ANP Gastroesophageal reflux disease, unspecified whether esophagitis present 09/19/2024 3:00 PM EDT Office Visit [address] [address] Rut Branham MD Opioid type dependence, continuous (CMS/[facility]) (Primary Dx) 09/19/2024 Travel 09/13/2024 Patient Outreach [address] [address] Sofia Mitchell ANP Care Coordination ([facility]/Mimi Kebede, initial assessment scheduled ) 09/13/2024 Patient Outreach [address] [address] Sofia Mitchell ANP Care Coordination ([facility]/EDEN Kebede, Chart review ) 09/13/2024 Patient Outreach [facility] [address] [place] [phone] Sofia Mitchell ANP Care Coordination ([facility] Chart review) 09/13/2024 Patient Outreach [address] [address] Sofia Mitchell ANP 09/12/2024 Orders Only [facility] External Provider, [facility] 09/09/2024 Refill [facility] [address] [place] [phone] Rut Branham MD Uncomplicated opioid dependence ([facility]/HCC) 08/23/2024 10:00 AM EDT Office Visit [facility] ADULT DENTAL [address] [place] [phone] Zay Schmidt DDS History of tooth extraction, unspecified edentulism class (Primary Dx) 08/23/2024 Telephone [facility] [address] [place] [phone] Arlette Hill, RN DME Question 08/14/2024 Telephone [facility] [address] [place] [phone] Sofia Mitchell ANP [employer] (Bath tub wall rail) 08/09/2024 Population Health Risk Score [facility] Department [address] [place] [phone] Provider, Population Health Generic 08/06/2024 Telephone [facility] [address] [place] [phone] Sofia Mitchell ANP Prior Authorization (Ozempic) 08/06/[address] [address] Sofia Mitchell ANP Durable Medical Equipment (Grab bars) 08/06/2024 Orders Only GENERIC EXTERNAL DATA DEPARTMENT Provider, Generic External Data 08/05/[address] [address] Sofia Mitchell ANP Nurse Triage 08/02/2024 Outside Procedure [facility] OPTOMETRY [address] [place] [phone] Gary, Coreen, OD Presbyopia (Primary Dx) 08/01/2024 2:45 PM EST Office Visit [facility] OPTOMETRY [address] [place] [phone] Gary, Coreen, OD Hyperopia of both eyes (Primary Dx) 07/25/2024 3:00 PM EST Office Visit [facility] [address] [place] [address] Rut Branham MD Opioid type dependence, continuous (CMS/HCC) (Primary Dx); Severe episode of recurrent major depressive disorder, without psychotic features ([facility]/HCC) 07/25/2024 Travel 07/24/2024 Refill [facility] [address] [place] [phone] Verona Estrada MD Venous stasis dermatitis of both lower extremities 07/18/2024 Refill [facility] [address] [place] [phone] Tristen Chen RN Uncomplicated opioid dependence ([facility]/HCC) 07/16/2024 Travel 07/12/[address] [address] Sofia Mitchell ANP Prior Authorization (Ozempic) 07/10/2024 2:00 PM EST Office Visit [address] [address] Sofia Mitchell ANP Type 2 diabetes mellitus with hyperlipidemia ([facility]) (Primary Dx); MICHAEL (generalized anxiety disorder); Severe episode of recurrent major depressive disorder, without psychotic features ([facility]/HCC); Persistent proteinuria; Class 3 severe obesity with serious comorbidity and body mass index (BMI) of 50.0 to 59.9 in adult, unspecified obesity type ([facility]); Spondylosis of lumbar region without myelopathy or radiculopathy; Bilateral lower extremity edema; BETSY (obstructive sleep apnea); Polyarthralgia; Acute torn meniscus of knee, right, sequela 07/10/2024 Travel 07/10/[address] [address] Anette Carrion MA Chart prep 07/09/[address] [address] Nikki Díaz RN Right shoulder X ray from Last 3 Months Immunizations Name Administration [...] Description 10/08/2024 1:00 PM EDT Office Visit [facility] [address] [place] [phone] Sofia Mitchell, JOSIAH [address] [place] [address] 12/12/2024 3:00 PM EDT Clinical Support [facility] [address] [place] [phone] Tristen Chen, RN [address] [place] [address] Health Maintenance Due Date Last Done Comments [...] Screening 07/10/2025 07/10/2024, 01/19/20 24 Tobacco Screening 09/23/2025 09/23/2024 Eye Exam 06/27/2026 06/27/2024, 05/31, 06/27/2024, Additional [...] Name Priority Date/Time Associated Diagnosis Comments XR HAND 3+ VIEWS BILATERAL Routine 10/01/2024 10:40 AM EDT XR WRIST 3+ VIEWS BILATERAL Routine 10/01/2024 10:40 AM EDT VITAMIN D,25-OH,TOTAL,IA Routine 10/01/2024 10:27 AM EDT NM HEART PERFUSION SPECT STRESS AND REST Urgent 09/20/2024 11:19 AM EDT Pre-op exam Type 2 diabetes mellitus with hyperlipidemia (CMS/HCC) Morbid obesity (CMS/HCC) Atypical chest pain POCT RAMSES-14 URINE DRUG SCREEN Routine 09/19/2024 1:44 PM EDT Opioid type dependence, continuous (CMS/HCC) CTA CHEST PE PROTOCAL Routine 09/12/2024 1:07 [...] Type 2 diabetes mellitus with hyperlipidemia (CMS/HCC) HEPATITIS PANEL, GENERAL Routine 07/03/2024 1:30 PM EST LIPID PANEL, STANDARD Routine 04/24/2024 11:23 AM EST HIV 1/2 ANTIGEN/ANTIBODY, FOURTH GENERATION W/RFL Routine 12/13/2023 11:48 AM EDT Elevated erythrocyte sedimentation rate 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 10/01/2024 10:4 0 AM EDT Narrative 10/01/2024 12:22 PM EDT ? [facility] ?[address] ?[place] [address] ?XRay Report ? Signed ? Patient: Navarrete,Ross L ?MR#: [id number] ?? 613 ? : 1980 ?Acct:[id number] ? Age/Sex: 43 / M ?ADM Date: 05/06/25 ? Loc: HO.LAB ? Attending Dr: Lorenza Up MD ? Ordering Physician: Lorenza Up MD ?? Date of Service: 10/01/24 ?? Procedure(s): XR Hand Bilat min 3v ?? Accession Number(s): [id number] ? cc: Lorenza Up MD; SOFIA MITCHELL NP ? EXAMINATION: ?? XR HAND, RIGHT ?? XR HAND, LEFT ? CLINICAL INFORMATION: ?? M47.819 - Spondylosis without myelopathy or radiculopathy, site ?? unspecified ? COMPARISON: ?? None ? TECHNIQUE: ?? PA, lateral, and oblique views of the each hand and wrist. ? FINDINGS: ? RIGHT HAND: The bones and soft tissues are normal. No fracture. ?? Alignment is anatomic. Joint spaces are maintained. No erosions or soft ?? tissue calcifications. ? LEFT HAND: The bones and soft tissues are normal. No fracture. ?? Alignment is anatomic. Joint spaces are maintained. No erosions or soft ?? tissue calcifications. ? XR/XR Hand Bilat min 3v ?? IMPRESSION: ?? Normal radiographs of the bilateral hands. ? Electronically signed by: ??Hamzah Mcdaniels MD ??10/01/2024 12:19 PM EDT RP ? Dictated By: ?Hamzah Mcdaniels MD ? Signed By: ?<Electronically signed by Hamzah Mcdaniels MD in OV> ?10/01/24 1219 ? DD/ 1040 ? TD/TT: 10/01/24 1057 ? Visual Communications Instructor: ? Procedure Note Maria T Cronin - 10/01/[address] [address] XRay Report Signed Patient: Ross Navarrete LMR#: [id number] 613 : 1980Acct:[id number] Age/Sex: 43 / MADM Date: 10/01/24 Loc: HO.LAB Attending Dr: Lorenza Up MD Ordering Physician: Lorenza Up MD Date of Service: 10/01/24 Procedure(s): XR Hand Bilat min 3v Accession Number(s): [id number] cc: Lorenza Up MD; SOFIA MITCHELL NP EXAMINATION: XR HAND, RIGHT XR HAND, LEFT CLINICAL INFORMATION: M47.819 - Spondylosis without myelopathy or radiculopathy, site unspecified COMPARISON: None TECHNIQUE: PA, lateral, and oblique views of the each hand and wrist. FINDINGS: RIGHT HAND: The bones and soft tissues are normal. No fracture. Alignment is anatomic. Joint spaces are maintained. No erosions or soft tissue calcifications. LEFT HAND: The bones and soft tissues are normal. No fracture. Alignment is anatomic. Joint spaces are maintained. No erosions or soft tissue calcifications. XR/XR Hand Bilat min 3v IMPRESSION: Normal radiographs of the bilateral hands. Electronically signed by: Hamzah Mcdaniels MD 10/01/2024 12:19 PM EDT Dictated By: Hamzah Mcdaniels MD Signed By: <Electronically signed by Hamzah Mcdaniels MD in OV> 10/01/24 1219 DD/ 1040 TD/TT: 10/01/24 1057 Visual Communications Instructor: [facility] External Provider IMG XR PROCEDURES Final Result * XR Wrist 3+ Views Bilateral (10/01/2024 10:40 AM EDT) Anatomical Region Laterality Modality Upper Extremities, Wrist Bilateral Radiogr aphic Imaging 10/01/2024 10:4 0 AM EDT Narrative 10/01/2024 12:13 PM EDT ? [facility] ?[address] ?[place] [address] ?XRay Report ? Signed ? Patient: Navarrete,Ross L ?MR#: [id number] ?? 613 ? : 1980 ?Acct:[id number] ? Age/Sex: 43 / M ?ADM Date: 05/06/25 ? Loc: HO.LAB ? Attending : Lorenza Up MD ? Ordering Physician: Lorenza Up MD ?? Date of Service: 10/01/24 ?? Procedure(s): XR Wrist Donovan min 3V ?? Accession Number(s): [id number] ? cc: Lorenza Up MD; SOFIA MITCHELL NP ? EXAMINATION: ?? XR WRIST, LEFT ?? XR WRIST, RIGHT ? CLINICAL INFORMATION: ?? M47.819 - Spondylosis without myelopathy or radiculopathy, site ?? unspecified ? COMPARISON: ?? None available. ? TECHNIQUE: ?? PA, lateral, oblique, and scaphoid views of both wrists. ? FINDINGS: ? LEFT WRIST: ?? No fracture, dislocation, or suspicious bone lesion. ?? There is normal carpal alignment. Joint spaces are preserved. No ?? periarticular osteopenia or erosions. No blunting of the ulnar styloid ?? is evident. ?? Normal soft tissues. ? RIGHT WRIST: ?? No fracture, dislocation, or suspicious bone lesion. ?? There is normal carpal alignment. Joint spaces are preserved. No ?? periarticular osteopenia or erosions. No blunting of the ulnar styloid ?? is evident. ?? Normal soft tissues. ? XR/XR Wrist Donovan min 3V ?? IMPRESSION: ?? Normal bilateral wrists. ? Electronically signed by: ??Hamzah Mcdaniels MD ??10/01/2024 12:10 PM EDT RP ? Dictated By: ?Hamzah Mcdaniels MD ? Signed By: ?<Electronically signed by Hamzah Mcdaniels MD in OV> ?10/01/24 1210 ? DD/ 1040 ? TD/TT: 10/01/24 1057 ? Visual Communications Instructor: ? Procedure Note Roseanne, Maria T - 10/01/2024 [place] [address] XRay Report Signed Patient: Ross Navarrete LMR#: [id number] 613 : 1980Acct:[id number] Age/Sex: 43 / MADM Date: 10/01/24 Loc: HO.LAB Attending Dr: Lorenza Up MD Ordering Physician: Lorenza Up MD Date of Service: 10/01/24 Procedure(s): XR Wrist Donovan min 3V Accession Number(s): [id number] cc: Lorenza Up MD; SOFIA MITCHELL NP EXAMINATION: XR WRIST, LEFT XR WRIST, RIGHT CLINICAL INFORMATION: M47.819 - Spondylosis without myelopathy or radiculopathy, site unspecified COMPARISON: None available. TECHNIQUE: PA, lateral, oblique, and scaphoid views of both wrists. FINDINGS: LEFT WRIST: No fracture, dislocation, or suspicious bone lesion. There is normal carpal alignment. Joint spaces are preserved. No periarticular osteopenia or erosions. No blunting of the ulnar styloid is evident. Normal soft tissues. RIGHT WRIST: No fracture, dislocation, or suspicious bone lesion. There is normal carpal alignment. Joint spaces are preserved. No periarticular osteopenia or erosions. No blunting of the ulnar styloid is evident. Normal soft tissues. XR/XR Wrist Donovan min 3V IMPRESSION: Normal bilateral wrists. Electronically signed by: Hamzah Mcdaniels MD 10/01/2024 12:10 PM EDT RP Dictated By: Hamzah Mcdaniels MD Signed By: <Electronically signed by Hamzah Mcdaniels MD in OV> 10/01/24 1210 DD/ 1040 TD/TT: 10/01/24 1057 Visual Communications Instructor: us [facility] External Provider IMG XR PROCEDURES Final Result * Vitamin D, 25-Hydroxy, Total, Immunoassay (10/01/2024 10:27 AM EDT) Vitamin D 25-OH Total 37.8 >30 ng/mL [facility] Comment: Health Based Reference Values*< 20 ??ng/mL ??Mzseainim12-11 ng/mL ??Insufficient> 30 ??ng/mL ??Sufficient*Rony TOMAS. N [...] Provider LAB BLOOD ORDERAB LES Final Result [facility] [address] [place] [address] [phone] * NM heart perfusion SPECT stress and rest (09/20/2024 11:19 AM EDT) Anatomical Region Laterality Modality Body Nuclear Medicine 09/20/2024 11:1 9 AM EDT Narrative 09/26/2024 4:05 PM EDT ? [facility] ?[address] ?[place] [address] ?Nuclear Medicine Report ? Signed ? Patient: Ross Navarrete ?MR#: [id number] ?? 613 ? : 1980 ?Acct:[id number] ? Age/Sex: 43 / M ?ADM Date: 09/20/24 ? Loc: HO.CARD ? Attending Dr: Sofia Mitchell NP ? Ordering Physician: SOFIA MITCHELL NP ?? Date of Service: 09/20/24 ?? Procedure(s): NM cha perf SPECT rest ?? str ?? Accession Number(s): [id number] ? cc: SOFIA MITCHELL NP ? Lexiscan Myocardial perfusion study ? Indication: ?? Chest pain ? Technique: ? The patient was brought in for a Lexiscan perfusion study on 09/20/2024 ?? and was injected 0.4 mg of Lexiscan intravenously. Within a minute of ?? this injection 45 mCi of sestamibi was given intravenously. Images were ?? obtained using the SPECT gamma camera interlaced with the gating ?? device. Images were obtained in supine position. ? Resting perfusion study was performed on 09/25/2024. Patient was ?? administered 31 mCi of sestamibi intravenously at rest. Images were ?? then obtained in supine position. Total DLP 209 mGy-cm. ? Images were processed with the software and compared side to side in ?? short axis, horizontal long axis and vertical long axis views. ? Findings: ? Raw aquisition reviewed. ? The stress perfusion study showed ??decreased tracer uptake along the ?? inferior wall. There is improvement with CT attenuation correction ?? suggestive of diaphragmatic attenuation artifact. The gated study shows ?? mildly reduced LV systolic function with calculated LVEF of 45%. LV ?? cavity is normal in size. The gated study shows normal ??wall thickening ?? and contraction of segments. ? Resting study shows mildly reduced tracer uptake along the inferior ?? wall. There is improvement with CT attenuation correction suggestive of ?? diaphragmatic attenuation artifact. Gating at rest reveals normal wall ?? motion with ejection fraction at 50%. ? The findings are consistent with fixed inferior perfusion defect. No ?? clear reversible defects. ? NM/NM cha perf SPECT rest ?? str ?? Impression: ? 1. ??Myocardial perfusion imaging study shows no clear evidence of ?? ischemia or infarction. Probably normal myocardial perfusion. ?? 2. ??Gated LVEF is 45% during stress and 50% during rest. ?? 3. Transient ischemic dilatation not present. ? EKG component of the test reported separately. ? Electronically signed by: ??Hayden Cordoba MD ??09/26/2024 04:02 ?? PM EDT ? Dictated By: ?Hayden Cordoba MD ? Signed By: ?<Electronically signed by Hayden Cordoba MD in OV> ?09/26/24 1602 ? DD/ 1119 ? TD/TT: 09/25/24 0935 ? Visual Communications Instructor: ? Procedure Note Maria T Cronin - 09/26/[address] [address] Nuclear Medicine Report Signed Patient: Ross Navarrete LMR#: [id number] 613 : 1980Acct:[id number] Age/Sex: 43 / MADM Date: 09/20/24 Loc: CATHY Attending Dr: Sofia Mitchell NP Ordering Physician: SOFIA MITCHELL NP Date of Service: 09/20/24 Procedure(s): NM cha perf SPECT rest str Accession Number(s): [id number] cc: SOFIA MITCHELL NP Lexiscan Myocardial perfusion study Indication: Chest pain Technique: The patient was brought in for a Lexiscan perfusion study on 09/20/2024 and was injected 0.4 mg of Lexiscan intravenously. Within a minute of this injection 45 mCi of sestamibi was given intravenously. Images were obtained using the SPECT gamma camera interlaced with the gating device. Images were obtained in supine position. Resting perfusion study was performed on 09/25/2024. Patient was administered 31 mCi of sestamibi intravenously at rest. Images were then obtained in supine position. Total DLP 209 mGy-cm. Images were processed with the software and compared side to side in short axis, horizontal long axis and vertical long axis views. Findings: Raw aquisition reviewed. The stress perfusion study showed decreased tracer uptake along the inferior wall. There is improvement with CT attenuation correction suggestive of diaphragmatic attenuation artifact. The gated study shows mildly reduced LV systolic function with calculated LVEF of 45%. LV cavity is normal in size. The gated study shows normal wall thickening and contraction of segments. Resting study shows mildly reduced tracer uptake along the inferior wall. There is improvement with CT attenuation correction suggestive of diaphragmatic attenuation artifact. Gating at rest reveals normal wall motion with ejection fraction at 50%. The findings are consistent with fixed inferior perfusion defect. No clear reversible defects. NM/NM cha perf SPECT rest str Impression: 1. Myocardial perfusion imaging study shows no clear evidence of ischemia or infarction. Probably normal myocardial perfusion. 2. Gated LVEF is 45% during stress and 50% during rest. 3. Transient ischemic dilatation not present. EKG component of the test reported separately. Electronically signed by: Hayden Cordoba MD 09/26/2024 04:02 PM EDT Dictated By: Hayden Cordoba MD Signed By: <Electronically signed by Hayden Cordoba MD inOV> 09/26/24 1602 DD/ 1119 TD/TT: 09/25/24 0935 Visual Communications Instructor: Sofia DOLL NM PROCEDURES Final Result * POCT RAMSES-14 Urine Drug Screen (09/19/2024 1:44 PM EDT) Only the most recent of2 resultswithin the time period is included. THC Positive Cocaine Screen, Urine Negative Opiate Screen, Urine Negative Methamphetamine Screen Urine Negative Amphetamine Screen, Urine Negative Benzodiazepines Screen, Urine Negative Barbiturate Screen, Urine Negative Methadone Screen, Urine Negative Buprenophine Screen, Urine Positive TCA, Urine Positive MDMA Urine Negative ng/mL Oxycodone Screen, Urine Negative Phencyclidine (PCP), Urine Negative Fentanyl, Urine Negative Urine Urine specimen obtained by clean catch procedure / Unknown 09/19/2024 1:44 PM EDT Rut Branham MD POINT OF CARE TEST ENTER/YI T ORDERABLES Final Result * CTA Chest PE Protocal (09/12/2024 1:07 PM EDT) Anatomical Region Laterality Modality Body, Chest Computed Tomogra phy 09/12/2024 1:07 PM EDT Narrative 09/12/2024 2:13 PM EDT ? [facility] ?[address] ?[place] [address] ? CT Scan Report ? Signed ? Patient: Ross Navarrete ?MR#: [id number] ?? 613 ? : 1980 ?Acct:[id number] ? Age/Sex: 43 / M ?ADM Date: 09/12/24 ? Loc: HO.ED ? Attending Dr: ? Ordering Physician: Pat Landers ?? Date of Service: 09/12/24 ?? Procedure(s): CT angio chest PE protocol ?? Accession Number(s): [id number] ? cc: Pat Landers; SOFIA MITCHELL NP ? Report Number: ?? [id number]: Total DLP = ??658.38 mGy-cm ?? EXAMINATION: [...] Stokes MD ??09/12/2024 02:11 PM ?? EDT RP ? Dictated By: ?Dionisio Okeefe MD ? Signed By: ?<Electronically signed by Dionisio Hill MD in OV> ? 09/12/24 1411 ? DD/ 1307 ? TD/TT: 09/12/24 2219 ? Visual Communications Instructor: ? Procedure Note Roseanne, Maria T - 09/12/[address] [address] [address] Scan Report Signed Patient: Ross Navarrete LMR#: [id number] 613 : 1980Acct:[id number] Age/Sex: 43 / MADM Date: 09/12/24 Loc: HO.ED Attending Dr: Ordering Physician: Pat Landers Date of Service: 09/12/24 Procedure(s): CT angio chest PE protocol Accession Number(s): [id number] cc: Pat Landers; SOFIA MITCHELL NP Report Number: [id number]: Total DLP = 658.38 mGy-cm EXAMINATION: CT [...] Dionisio Stokes MD 09/12/2024 02:11 PM EDT RP Dictated By: Dionisio Okeefe MD Signed By: <Electronically signed by Dionisio Hill MDin OV> 09/12/24 1411 DD/ 1307 TD/TT: 09/12/24 1359 Visual Communications Instructor: [facility] External Provider IMG CT PROCEDURES Final Result * CT Abdomen Pelvis w/o Contrast (09/12/2024 1:07 PM EDT) Anatomical Region Laterality Modality Body, Pelvis, Abdomen Computed T omography 09/12/2024 1:07 PM EDT Narrative 09/12/2024 2:07 PM EDT ? [facility] ?[address] ?[place] [address] ? CT Scan Report ? Signed ? Patient: Navarrete,Ross L ?MR#: [id number] ?? 613 ? : 1980 ?Acct:[id number] ? Age/Sex: 43 / M ?ADM Date: 09/12/24 ? Loc: HO.ED ? Attending Dr: ? Ordering Physician: Pat Landers ?? Date of Service: 09/12/24 ?? Procedure(s): CT abdomen pelvis wo IV con ?? Accession Number(s): [id number] ? cc: Pat Landers; SOFIA MITCHELL NP ? Report Number: ?? [id number]: Total DLP = 1782.28 mGy-cm ?? EXAMINATION: [...] DD/ 1307 ? TD/TT: 09/12/24 1356 ? Visual Communications Instructor: ? Procedure Note Donotuseinterpreter, Image - 09/12/[address] [address] [address] Scan Report Signed Patient: Ross Navarrete LMR#: [id number] 613 : 1980Acct:[id number] Age/Sex: 43 / MADM Date: 09/12/24 Loc: HO.ED Attending Dr: Ordering Physician: Pat Landers Date of Service: 09/12/24 Procedure(s): CT abdomen pelvis wo IV con Accession Number(s): [id number] cc: Pat Landers; SOFIA MITCHELL NP Report Number: [id number]: Total DLP = 1782.28 mGy-cm EXAMINATION: CT [...] 09/12/24 1404 DD/ 1307 TD/TT: 09/12/24 1356 Visual Communications Instructor: [facility] External Provider IMG CT PROCEDURES Final Result * (ABNORMAL) Urinalysis, Complete, with Reflex to Culture (09/12/2024 10:22 AM EDT) Color Urine Yellow [facility] Appearance Urine Clear [facility] PH 5.5 5.0 - 9.0 [facility] Glucose Urine UA Negative Negative mg/dL [facility] Urine Blood Negative Negative [facility] Specific [place] - Urine 1.020 1.005 - 1.025 [facility] Urine Protein 300 (3+)(A) Neg-Trace mg/dL [facility] Urine Ketones Negative Negative mg/dL [facility] Nitrite Urine Negative Negative [facility] Leukocyte Esterase Urine Negative Negative [facility] RBC Urine 0-2 0 - 2 /HPF [facility] Urine WBC 0-5 0 - 5 /HPF [facility] Urine Squamous Epithelial Cell 0-2 0 - 2 /HPF [facility] Urine Bacteria None Seen None Seen [facility] Hyaline Casts, Urine 0-2 0 - 2 /LPF [facility] 09/12/2024 10:2 2 AM EDT 09/12/2024 10:31 AM EDT Narrative [facility] - 09/12/2024 10:40 AM EDT Urine, Clean Catch us Generic External Data Provider LAB URINE ORDERAB LES Final Result [facility] [address] [place] [address] [phone] * (ABNORMAL) CBC auto differential (09/12/2024 10:22 AM EDT) Only the most recent of2 resultswithin the time period is included. White Blood Count 8.6 4.8 - 10.8 X10*3/uL [facility] Red Blood Count 4.71 4.60 - 5.80 X10*6/uL [facility] Hemoglobin 13.3(L) 14.0 - 18.0 g/dl [facility] Hematocrit 40.1(L) 42.0 - 52.0 % [facility] Mean Corpuscular Volume 85.1 80.0 - 98.0 fL [facility] Mean Corpuscular Hemoglobin 28.2 27.0 - 33.0 pg [facility] Mean Corpuscular HGB Conc 33.2 31.0 - 36.0 g/dl [facility] Red Cell Distribution Width 12.7 11.0 - 16.0 % [facility] Platelet Count 134(L) 160 - 400 X10*3/uL [facility] Mean Platelet Volume 11.7 9.4 - 12.4 fL [facility] Neutrophils Percent Auto 66.8 45 - 73 % [facility] Imm Gran Pct Auto 0.5(H) 0.0 - 0.4 % [facility] Lymphocytes Percent Auto 24.5 20 - 40 % [facility] Monocytes Percent Auto 6.1 2 - 11 % [facility] Eosinophils Percent Auto 1.6 0 - 4 % [facility] Basophils Percent Auto 0.5 0 - 2 % [facility] NRBC Pct Auto 0.0 0.0 - 0.2 /100WBC [facility] Neutrophils Absolute Auto 5.8 2.0 - 8.3 x10*3/uL [facility] Imm Gran Abs Auto 0.04(H) 0.00 - 0.03 X10*3/uL [facility] Lymphocytes Absolute Auto 2.1 1.2 - 4.9 X10*3/uL [facility] Monocytes Absolute Auto 0.5 0.1 - 1.2 X10*3/uL [facility] Eosinophils Absolute Auto 0.1 0.0 - 0.4 X10*3/uL [facility] Basophils Absolute Auto 0.0 0.0 - 0.2 X10*3/uL [facility] NRBC Abs Auto 0.000 0.0 - 0.012 X10*3/uL [facility] 09/12/2024 10:2 2 AM EDT 09/12/2024 10:31 AM EDT us Generic External Data Provider LAB BLOOD ORDERAB LES Final Result [facility] [address] [place] [address] [phone] * (ABNORMAL) Comprehensive Metabolic Panel (09/12/2024 10:22 AM EDT) Sodium 136 135 - 145 mmol/L [facility] Potassium 4.1 3.3 - 5.1 mmol/L [facility] Chloride 102 96 - 108 mmol/L [facility] Carbon Dioxide 25 22 - 29 mmol/L [facility] Anion Gap 13 12 - 20 [facility] Urea Nitrogen (BUN) 23(H) 9 - 16 mg/dL [facility] Creatinine, Serum 1.18 0.5 - 1.4 mg/dL [facility] Creatinine Clr Calc Pharmacy 124.3 [facility] Comment:eGFR (calculated fro m the MDRD study equation) and eCrCl(calculated from the Cockcroft-Gault equation) are based ondifferent parameters and may not yield comparable results.If eCrCl result is absurd, please check patient'sheight/weight. Estimated Glomerular Filt Rate >60 [facility] Comment:Chronic Kidney Disea se: Estimated GFR < 60 mL/min/1.18y4Ywpqct Kidney Disease: Estimated GFR < 15 mL/min/1.73m2 Glucose 180(H) 60 - 115 mg/dL [facility] Calcium 9.5 8.4 - 10.2 mg/dL [facility] Bilirubin, Total 0.7 0.0 - 1.0 mg/dL [facility] Aspartate Amino Transferase 24 5 - 37 U/L [facility] Alanine Aminotransferase 22 0 - 40 U/L [facility] Total Protein 7.8 6.5 - 8.0 g/dL [facility] Albumin Level 3.9 3.5 - 5.0 g/dL [facility] Alkaline Phosphatase 75 39 - 117 U/L [facility] 09/12/2024 10:2 2 AM EDT 09/12/2024 10:31 AM EDT us Generic External Data Provider LAB BLOOD ORDERAB LES Final Result [facility] [address] [place], [place] [phone] * XR Chest 1 View (09/12/2024 10:10 AM EDT) Only the most recent of2 resultswithin the time period is included. Anatomical Region Laterality Modality Chest Radiographic Lupe ging 09/12/2024 10:1 0 AM EDT Narrative 09/12/2024 10:29 AM EDT ? [place] [facility] ?[address] ?[place] [address] ?XRay Report ? Signed ? Patient: Navarrete,Ross L ?MR#: [id number] ?? 613 ? : 1980 ?Acct:[id number] ? Age/Sex: 43 / M ?ADM Date: 09/12/24 ? Loc: HO.ED ? Attending Dr: ? Ordering Physician: Generic ED Physician ?? Date of Service: 09/12/24 ?? Procedure(s): XR chest 1V ?? Accession Number(s): [id number] ? cc: Generic ED Physician; SOFIA MITCHELL [...] acute cardiopulmonary abnormality. ? Electronically signed by: ??Guirnder Valdez MD ??09/12/2024 10:26 AM EDT ?? RP ? Dictated By: ?Gurinder Valdez MD ? Signed By: ?<Electronically signed by Gurinder Valdez MD in OV> ?09/12/24 1026 ? DD/ 1010 ? TD/TT: 09/12/24 1019 ? Visual Communications Instructor: ? Procedure Note Maria T Cronin - 09/12/[address] [address] XRay Report Signed Patient: Ross Navarrete R#: [id number] 613 : 1980Acct:[id number] Age/Sex: 43 / MADM Date: 09/12/24 Loc: HO.ED Attending Dr: Ordering Physician: Generic ED Physician Date of Service: 09/12/24 Procedure(s): XR chest 1V Accession Number(s): [id number] cc: Generic ED Physician; MITCHELL,SOFIA HEALTH SAFETY INSTRUCTOR EXAMINATION: XR CHEST 1 VIEW HISTORY: SOB [...] 09/12/24 1026 DD/ 1010 TD/TT: 09/12/24 1019 Visual Communications Instructor: [facility] External Provider IMG XR PROCEDURES Final Result * SARS-CoV-2 RNA, Influenza A/B, and RSV RNA, Ql NAAT (08/06/2024 12:26 PM EDT) Influenza A PCR NEGATIVE Negative [facility] Influenza B PCR NEGATIVE Negative [facility] Resp Syncy Virus RNA Qual PCR NEGATIVE Negative [facility] SARS COV2 PCR NEGATIVE Negative [facility] Comment:All test results mus t [...] use by authorized laboratories.Testing performed on the [employer] GeneXpert utilizingreal-time RT-PCR.All SARS CoV2 and positive influenza A/B results arereported to [facility]. 08/06/2024 12:2 6 PM EDT 08/06/2024 12:28 PM EDT Generic External Data Provider LAB MICROBIOLOGY - GENERAL ORDERABLES Final Result Performing Organization Address [facility]/ZIP Co de Phone Number [facility] [address] [place] [phone] * Prothrombin Time-INR (08/06/2024 10:13 AM EDT) Prothrombin Time 11.7 10.9 - 12.4 SEC [facility] INTERNATIONAL NORM RATIO 1.0 0.9 - 1.1 [facility] Comment:INTERNATIONAL NORMAL IZED RATIO (INR) [...] Final Result Performing Organization Address [facility] Co de Phone Number [facility] [address] [place] [phone] * (ABNORMAL) POCT HGB A1C (07/10/2024 2:05 PM EST) Pathologist [facility] Hemoglobin A1C 6.7(A) 4.0 - 6.0 % QC Media Lot # [id number] Lot# Expiration Date ,026 Blood 07/10/2024 2:05 PM EST Sofia Mitchell ANP POINT OF CARE TEST ENTER/EDIT OR DERABLES Final Result * POCT Glucose (07/10/2024 2:02 PM EST) Glucose Blood, POC 127 60 - 200 mg/dL QC Media Lot # [id number] Lot# Expiration Date ,025 Blood Capillary blood specimen / Unknown 07/10/2024 2:02 PM EST us Sofia Mitchell ANP POINT OF CARE TEST ENTER/EDIT OR DERABLES Final Result * Hepatitis Panel, General (07/03/2024 1:30 PM EST) Hepatitis A IgM Nonreactive Nonreactive [facility] Comment:IgM antibodies to MONTERO V not detected; does not exclude earlyacute or recovered HAV infection. ~Hepatitis B Surface Antibody NONREACTIVE Nonreactive [facility] Comment:Nonreactive: < 8.00 mIU/mL Hepatitis B Core Antibody Nonreactive Nonreactive [facility] Hepatitis C Antibody Nonreactive Nonreactive [facility] Comment:Antibodies to HCV no t detected; does not exclude early acuteHCV infection. Hepatitis B Surface Ag Negative Negative [facility] 07/03/2024 1:30 PM EST 07/03/2024 4:16 PM EST Generic External Data Provider LAB BLOOD ORDERAB LES Final Result [facility] [address] [place] [phone] * Lipid Panel, Standard (04/24/2024 11:23 AM EST) Triglycerides 132 <150 mg/dL [facility] Comment:Desirable Triglyceri de: less than 150 mg/dLBorderline High Triglyceride 150-199 mg/dLHigh Triglyceride: 200-499 mg/dLVery High Triglyceride: greater than or equal to 5OO mg/dL Cholesterol 165 <200 mg/dL [facility] Comment:Desirable Cholestero l: less than 200 mg/dLBorderline High Cholesterol: 200-239 mg/dLHigh Cholesterol: greater than 239 mg/dL LDL Cholesterol Calculated 91 <100 mg/dL [facility] Comment:Desirable LDL: less than 100 mg/dLNear Optimal/Above Optimal LDL: 110- 129 mg/dLBorderline High LDL: 130-159 mg/dLHigh LDL: 160-189 mg/dLVery High LDL: greater than or equal to 190 mg/dL HDL Cholesterol 48 >40 mg/dL [facility] Comment:Desirable HDL: great er than 40 mg/dL Note: This HDL assay may give artificially low results in patients with liver disease. 04/24/2024 11:2 3 AM EST 04/24/2024 11:23 AM EST Generic External Data Provider LAB BLOOD ORDERAB LES Final Result Performing Organization Address [facility] Co de Phone Number [facility] [address] [place] [address] [phone] * HIV-1/2 Antigen and Antibodies, Fourth Generation, with Reflexes (12/13/2023 11:48 AM EDT) [facility] HIV AB/AG Nonreactive Nonreactive [facility] Comment:HIV-1 p24 Ag and/or HIV-1/HIV-2 Ab not detected.A test result that is nonreactive does not exclude thepossibility of exposure to or infection with HIV-1 and/orHIV-2. Nonreactive results in this assay for individualswith prior exposure to HIV-1 and/or HIV-2 may be due toantigen and antibody levels that are below the limit ofdetection of this assay.The [employer] HIV Ag/Ab Combo assay result andsupplemental assay results should be interpreted inconjunction with the patient's clinical presentation,history and other laboratory results. If the results areinconsistent with clinical evidence, additional testing issuggested to confirm the result. Blood Venous blood specimen / Unknown 12/13/2023 11:48 AM EDT 12/13/2023 12:51 PM EDT [facility] Mitchell [facility] LAB BLOOD ORDERABLES Final Resul t Performing Organization Address [facility]/ZIP Co de Phone Number [facility] [address] [place] [address] [phone] from Last 3 Months or Most Recently Relevant to Health Maintenance Insurance [place] C[place] F[facility] D[facility] MEDICAID STAND ADULT Care Teams Telecom Analyst Relationship Specialty Start Date End Date Sofia Mitchell ANP [address] [place] [phone] PCP - General Family Medicine 01/18/22 Real Gomez MD [address] [place] [address] Drive [address] [place] [address] Cardiology 10/01/24
--- OUTSIDE RECORDS SUMMARY | 2024-10-02 12:32 | XMS_ITS | Encounter Summary ---
Author Organization [employer] Address [address] [facility] [address] [place] [address] Care Team Providers Care Kennel Operator Name Role Phone Naheed Zaman Primary Care Provider [phone] Real Gomez MD Unavailable Reason for Visit * Reason Onset Date Comments callback requested 04/23/2024 Encounter Details Date Type Department Care Team ([facility] st Contact Info) Description 04/23/2024 Telephone [facility] [address] [place] [address] Naheed Zaman ANP [address] [place] [address] callback requested Social History Tobacco Use Types [...] returning call to Madie Olson Callback number [phone] documented in this encounter Plan of Treatment Upcoming Encounters Date Type Department Care Team (Late st Contact Info) Description 10/08/2024 1:00 PM EDT Office Visit [facility] [address] [place] [phone] Naheed Zaman, JOSIAH [address] [place] [address] 12/12/2024 3:00 PM EDT Clinical Support [facility] [address] [place] [phone] Tristen Chen, APRIL [address] [place] [address] documented as of this encounter Visit Diagnoses Not on filedocumented in this encounter Additional Health Concerns Assessment Noted Time PHQ-9 Depression Total Score: 25 024 8:12 AM EDT documented as of this encounter Care Teams Kennel Operator Relationship Specialty Start Date End Date Naheed Zaman ANP [address] [place] [phone] PCP - General Family Medicine 01/18/22 Real Gomez MD [address] [place] [address] Drive 3[address] [place] [address] Cardiology 10/01/24 documented as of this encounter
--- OUTSIDE RECORDS SUMMARY | 2024-10-02 12:32 | XMS_ITS ---
Author Organization [employer] Address [address] [place] [address] Care Team Providers Care Wet Process Miller Name Role Phone Naheed Zaman Primary Care Provider Real Gomez MD Unavailable CM Complex Status:Identified (Enrolling) Start date:09/13/2024 Enrollment reason:ADT Feed Overview ED- Pt went to [facility] ED on 09/12/24. Case Team Name Relationship Phone Rut Patel RN Registered Nurse(Responsible S taff) [phone] Continued Care and Services Coordination
--- OUTSIDE RECORDS SUMMARY | 2024-10-02 12:32 | XMS_ITS | Encounter Summary ---
Author Organization [employer] Address 75 [facility] 7t [place] [address] Care Team Providers Care Bulk Driver Name Role Phone Naheed Zaman Primary Care Provider [phone] Real Gomez MD Unavailable Reason for Visit * Reason Onset Date Comments Results 10/02/2024 Encounter Details Date Type Department Care Team ([facility] st Contact Info) Description 10/02/2024 Telephone [facility] [address] [place] [address] Arlette Hill, RN [address] [place] [address] Results Social History Tobacco Use Types Packs/Day Years [...] your housing situation today? I have zack rtejo 03/13/[address] you li [...] t he electric, gas, oil or water [employer] threatened to shut off services in your [...] Telephone Encounter - Arlette Hill RN - 10/02/2024 10:51 AM EDT Telephone call placed to pt utilizing [employer] #[id number] regarding below message. Informed of below results. Advised to follow up with cards 10/09/24. Pt verbalized understanding and agrees with plan. Please call pt to let him know, the stress test showed probably normal heart perfusion. Does have slightly decreased ejection fraction (the amount of blood pumped out of heart with each beat) but Dr. Gomez will review this in detail at his follow-up on 10/09/24. documented in this encounter Plan of Treatment Upcoming Encounters Date Type Department Care Team (Late st Contact Info) Description 10/08/2024 1:00 PM EDT Office Visit [facility] [address] [place] [address] Naheed Zaman ANP [address] [place] [address] 12/12/2024 3:00 PM EDT Clinical Support [facility] [address] [place] [address] Tristen Chen, APRIL [address] [place] [address] documented as of this encounter Visit Diagnoses Not on filedocumented in this encounter Additional Health Concerns Assessment Noted Time PHQ-9 Depression Total Score: 25 024 8:12 AM EDT documented as of this encounter Care Teams Bulk Driver Relationship Specialty Start Date End Date Naheed Zaman ANP [address] [place] [address] PCP - General Family Medicine 01/18/22 Real Gomez MD [address] [place] [address] 3rd [place] [address] Cardiology 10/01/24 documented as of this encounter
--- OUTSIDE RECORDS SUMMARY | 2024-10-02 12:32 | XMS_ITS | Encounter Summary ---
Author Organization [employer] Address [address] [facility] 7t [place] [address] Care Team Providers Care Academic Advisement Director Name Role Phone Naheed Zaman Primary Care Provider [phone] Reason for Visit * Reason Onset Date Comments Appointment Request 09/27/2024 Encounter Details Date Type Department Care Team ([facility] Contact Info) Description 09/27/2024 Telephone [facility] [address] [place] [address] Naheed Zaman ANP [address] [place] [address] Appointment Request Social History Tobacco Use Types Packs/Day Years [...] encounter Miscellaneous Notes * Telephone Encounter - Liban Hare MA - 09/30/2024 9:11 AM EDT Message forwarded to Francy Kebede. Patient wanted to reschedule missed dermatology appt. His had surgery on 09/27/24 * Telephone Encounter - Chris Sherwood - 09/27/2024 3:23 PM EDT Tc from pt requesting appointment for September 27, 2024 to be reschedules due to getting open heartsurgery wasn't able to assist as he's helping her. Please return call [phone] documented in this encounter Plan of Treatment Upcoming Encounters Date Type Department Care Team (Late st Contact Info) Description 10/08/2024 1:00 PM EDT Office Visit [facility] [address] [place] [address] Naheed Zaman ANP [address] [place] [address] 12/12/2024 3:00 PM EDT Clinical Support [facility] [address] [place] [address] Tristen Chen RN [address] [place] [address] documented as of this encounter Visit Diagnoses Not on filedocumented in this encounter Additional Health Concerns Assessment Noted Time PHQ-9 Depression Total Score: 25 024 8:12 AM EDT documented as of this encounter Care Teams Academic Advisement Director Relationship Specialty Start Date End Date Naheed Zaman ANP [address] [place] [address] PCP - General Family Medicine 01/18/22 documented as of this encounter
--- OUTSIDE RECORDS SUMMARY | 2024-10-02 12:32 | XMS_ITS | Encounter Summary ---
Author Organization [employer] Address 75 [facility] 7t [place] [address] Care Team Providers Care Statement Distribution Clerk Name Role Phone Naheed Zaman Primary Care Provider [phone] Real Gomez MD Unavailable Reason for Visit * Reason Comments Med Refill Encounter Details Date Type Department Care Team (Late st Contact Info) Description 09/14/2023 Refill [facility] [address] [place] [address] Dayna Cardenas MD [address] [place] [address] Uncomplicated opioid dependence (CMS/HCC) Social History Tobacco [...] Description 10/08/2024 1:00 PM EDT Office Visit [facility] [address] [place] [address] Naheed Zaman ANP [address] [place] [address] 12/12/2024 3:00 PM EDT Clinical Support [facility] [address] [place] [address] Tristen Chen, APRIL [address] [place] [address] documented as of this encounter Visit Diagnoses Diagnosis Uncomplicated opioid dependence (CMS/HCC) documented in this encounter Additional Health Concerns Assessment Noted Time PHQ-9 Depression Total Score: 6 11/19/19 23 3:29 PM EDT documented as of this encounter Care Teams Statement Distribution Clerk Relationship Specialty Start Date End Date Naheed Zaman ANP [address] [place] [phone] PCP - General Family Medicine 01/18/22 Rael Gomez MD [address] [place] [address] Drive 3rd [place] [address] Cardiology 10/01/24 documented as of this encounter
--- OUTSIDE RECORDS SUMMARY | 2024-10-02 12:32 | XMS_ITS | Clinical Summary ---
Author Organization [facility] Address [address] [place] [address] Care Team Providers Care Head Start Coordinator Name Role Phone Unavailable Primary Care Provider [...] recurrent major depressive disorder, with psychotic features ([facility]) 06/10/2024 Assessment & Plan (06/18/2024 11:18 AM EST): Patient refused to be seen, [place] head orthopedic team physician was notified. Assessment & Plan (06/10/2024 5:36 [...] connected on video call until arrival of [place] Police with recommendation to section patient to [...] - 19 + 3-dose series) 11/14/2023 10/17/2023 [id number] (2023- season) 01/28/202412/29/2 021, 12/10/2020 Imm-Influenza (#1) 2024 02/27/2012, 01/27/2011 Alcohol and Drug Screen 05/29/2024 Diabetes Screening 05/16/2025 05/16/2024, 1 06/24/2023, 04/24/2024, Additional history exists Lipid Screening 04/24/2029 04/24/2024, 05/29, 02/27/2020 Imm-DTaP/Tdap/Td (3 - Td or Tdap) 10/16/2033 024, 03/15/2011 Hepatitis C Screening Completed 10/11/2023 HIV Screening Completed 12/13/2023, 11/26, 12/16/2021 Insurance [facility] [place] MED[place]
--- OUTSIDE RECORDS SUMMARY | 2024-10-02 12:32 | XMS_ITS | Encounter Summary ---
Author Organization [facility] Address [address] [place] [address] 7t [place] [address] Care Team Providers Care Production Controller Name Role Phone Naheed Zaman Primary Care Provider [phone] Real Gomez MD Unavailable Encounter Details Date Type Department Care Team (Latest Contact Info) Description 12/29/2021 Abstract [facility] CONVERSIONS Dental, Provider, DDS Social History [...] Description 10/08/2024 1:00 PM EDT Office Visit [facility] MEDICINE [address] [place] [address] Naheed Zaman ANP [address] [place] [address] 12/12/2024 3:00 PM EDT Clinical Support [facility] [address] [place] [address] Tristen Chen, APRIL [address] [place] [address] documented as of this encounter Visit Diagnoses Not on filedocumented in this encounter Care Teams Production Controller Relationship Specialty Start Date End Date Naheed Zaman ANP [address] [place] [address] PCP - General Family Medicine 01/18/22 Real Gomez MD [address] [place] [address] 3rd [place] [address] Cardiology 10/01/24 documented as of this encounter
--- OUTSIDE RECORDS SUMMARY | 2024-10-02 12:32 | XMS_ITS | Encounter Summary ---
Author Organization [employer] Address [address] [facility] 7t [place] [address] Care Team Providers Care Academic Adviser Name Role Phone Naheed Zaman Primary Care Provider [phone] Real Gomez MD Unavailable Encounter Details Date Type Department Care Team (Late st Contact Info) Description 10/01/2024 Orders Only [facility]INE [address] [place] [address] Naheed Zaman ANP [address] [place] [address] Social History Tobacco Use Types Packs/Day Years [...] as of this encounter Progress Notes * JOSIAH Marquez - 10/01/2024 3:28 PM EDT Please call pt to let him know, the stress test showed probably normal heart perfusion. Does have slightly decreased ejection fraction (the amount of blood pumped out of heart with each beat) but will review this in detail at his follow-up on 10/09/24. documented in this encounter Plan of Treatment Upcoming Encounters Date Type Department Care Team (Late st Contact Info) Description 10/08/2024 1:00 PM EDT Office Visit [facility] MEDICINE [address] [place] [address] Naheed Zaman ANP [address] [place] [address] 12/12/2024 3:00 PM EDT Clinical Support [facility] [address] [place] [address] Tristen Chen, APRIL [address] [place] [address] documented as of this encounter Visit Diagnoses Not on filedocumented in this encounter Additional Health Concerns Assessment Noted Time PHQ-9 Depression Total Score: 25 024 8:12 AM EDT documented as of this encounter Care Teams Academic Adviser Relationship Specialty Start Date End Date Naheed Zaman ANP [address] [place] [address] PCP - General Family Medicine 01/18/22 Real Gomez MD [address] [place] [address] 3rd [place] [address] Cardiology 10/01/24 documented as of this encounter
== END 2024-10-02 11:59 | disposition home or self-care (01) ==
LOC: HO.RHE 11:04
PROVIDERS: PCP Nurse Practitioner Primary Care; Visit Provider Student in an Organized Health Care Education/Training Program
DX: M47.819 Spondylosis without myelopathy or radiculopathy, site unspecified (principal); M79.7 Fibromyalgia; Z79.620 Long term (current) use of immunosuppressive biologic
CPT/HCPCS: 99214

== ENCOUNTER → 2024-10-02 11:03 | Outpatient (BNVA) | payer MEDICAID, SELFPAY | PROVIDERS: PCP Nurse Practitioner Primary Care; Visit Provider Student in an Organized Health Care Education/Training Program | DX: M47.819 Spondylosis without myelopathy or radiculopathy, site unspecified (principal); M79.7 Fibromyalgia; M46.90 Unspecified inflammatory spondylopathy, site unspecified; Z79.620 Long term (current) use of immunosuppressive biologic | CPT/HCPCS: 99212 ==

== ENCOUNTER 2024-10-09 13:06 | Outpatient (AMB) | payer MEDICAID, SELFPAY ==
[2024-10-09 13:09] VITALS: BP 148/80; PULSE 58; BMI 65.3
--- NOTE | 2024-10-09 13:09 | MHC.OFFVIS ---
Vital Signs 10/09/24 13:09 Height 5 ft 5 in Weight 392 lb 6.765 oz BMI 65.3 BP 148/80 H Blood Pressure Location Lt brachial Position Sitting Pulse 58 Intake Visit Reasons: f/up 6 week/Echo Intake Note: 6 week Follow-up after echo c/o of having to catch his breath pcp send in new bp med hasn't picked up yet and doesn't know the name Senior Analyst Developer Required: No Allergies seafood Allergy (Severe, Verified 10/02/24 11:29) Swelling Medication List - Last Reconciled 10/09/24 by Paul Cruz NP acetaminophen (Acetaminophen Extra Strength) 500 mg PO Q6H PRN adalimumab (Humira(CF) Pen) 40 mg (0.4 mL) subcut QWEEK ammonium lactate 12% topical ammonium lactate 12% appl topical atorvastatin 10 mg PO BEDTIME betamethasone valerate 0.1% appl topical buprenorphine-naloxone 8-2 mg (Suboxone) 1 film sublingual TID cholecalciferol (vitamin D3) 1,250 mcg PO QWEEK clotrimazole 1% appl topical BID cyclobenzaprine 10 mg PO TID PRN famotidine 20 mg PO BEDTIME flash glucose sensor (FreeStyle Casey 2 Sensor kit) As directed fluoxetine 60 mg PO DAILY insulin glargine (Lantus Solostar U-100 Insulin) 55 units subcut BEDTIME insulin lispro (Humalog KwikPen (U-100) Insulin) 35 units subcut TID lidocaine 5% 1 patch topical DAILY PRN lisinopril 40 mg PO DAILY meloxicam 15 mg PO DAILY 30 days pregabalin 50 mg PO BEDTIME semaglutide (Ozempic) mg subcut sodium,potassium,mag sulfates 17.5-3.13-1.6 gram (Suprep Bowel Prep Kit) DILUTE as per instructions given zinc oxide 40% (Diaper Rash) topical HPI Comments Details: This is a 43-year-old male patient coming in for a follow-up visit. Patient with medical history of hypertension, insulin-dependent diabetes, obesity, and sleep apnea. Patient was previously evaluated for chest discomfort and shortness of breath for which he underwent an echocardiogram and a myocardial perfusion study. Today, the patient reports generally feeling well aside from his chronic joint aches and pains. He continues to experience gasping episodes mostly at rest and has noticed an increase in coughing. He is otherwise denying any cardiac symptoms including exertional chest pain, exertional shortness of breath, palpitations, dizziness, orthopnea, PND, leg edema, presyncope, or syncope. Patient reports overall compliance with his medications although he has not started a recently prescribed antihypertensive from his PCP. Patient plans to pick it up today after visit and start it. [facility] Medical History Seronegative spondyloarthropathy Vitamin D deficiency Elevated C-reactive protein (CRP) Fibromyalgia Polyarthralgia Narcotic dependence Thrombocytopenia Carpal tunnel syndrome Sleep apnea Pre-op evaluation Hx of migraines BETSY on CPAP Pre-op evaluation HTN (hypertension), benign Insulin dependent type 1 diabetes mellitus Morbid obesity Shoulder dislocation Diabetes Surgical History Hx of colonoscopy History of esophagogastroduodenoscopy (EGD) Hx of hernia repair Hx of appendectomy Family History Mother No problems noted. Brother No problems noted. Daughter No problems noted. Daughter No problems noted. Daughter No problems noted. Son No problems noted. Son No problems noted. 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 Review of Systems Const Denies chills, Denies fatigue, Denies fever(s), Denies frequent falls, Denies weakness, Denies weight gain and Denies weight loss ENT Denies dizziness Card Denies chest pain, Denies leg edema, Denies lightheadedness, Denies palpitations, Denies dyspnea, Denies dyspnea on exertion, Denies orthopnea and Denies other (loss of consciousness) Resp Denies cough, Denies dyspnea and Denies dyspnea on exertion GI Denies hematochezia and Denies change in stool character Musc Denies abnormal gait, Denies muscle weakness, Denies numbness, Denies radiating pain into limb and Denies tingling Neuro Denies abnormal gait, Denies dizziness, Denies frequent falls, Denies numbness, Denies tingling and Denies weakness Endo Denies fatigue and Denies palpitations Physical Exam Vital Signs: Last Vital Signs Pulse 58 10/09/24 13:09 BP 148/80 H 10/09/24 13:09 BMI result Body Mass Index 65.3 Const General: cooperative, healthy appearing, comfortable and no acute distress Orientation/consciousness: patient oriented x3 HEENT Head: Yes normal to inspection Neck Neck: Yes normal visual inspection, Yes trachea midline and Yes supple Chest Chest palpation & inspection: normal inspection of the chest Resp Effort & Inspection: normal respiratory effort Auscultation: clear to auscultation bilaterally, no crackles, no rales, no rhonchi and no wheezes Cardio Jugular venous distension: no JVD Palpation: normal PMI Rate: regular rate Rhythm: regular rhythm Heart sounds: S1 normal heart sound present, S2 normal heart sound present, no click, no gallops, no murmurs and no rubs Peripheral pulses: Peripheral pulses 2+ throughout GI Inspection: Yes normal to inspection Palpation (GI): Soft to palpation Auscultation: normal bowel sounds Skin General skin exam: no rashes or lesions noted Neuro General: patient oriented x3 Extrem General: Yes normal to inspection, No no pedal edema and No calf tenderness Psych Appearance: grossly normal Mental Status: mental status grossly normal Speech and movement: Normal speech and movement present Assessment & Plan Assessment & Plan (1) Chest pain: Code(s): R07.9 - Chest pain, unspecified Category: Medical Plan: 09/18/2024-patient had an echo study that showed normal LV systolic function with an ejection fraction at 59% with no wall motion or valvular abnormalities. 09/20/2024-patient underwent a myocardial perfusion study which was normal. The patient reports resolution of his chest pain which is reassuring. However he continues to experience the gasping episodes at rest particularly when he is sitting down to watch TV, along with increased coughing. Given his normal cardiac test results, these symptoms are less likely to be of cardiac origin. We will proceed with pulmonary function test to evaluate for potential underlying pulmonary pathology particularly with his known sleep apnea and persistent respiratory symptoms. Additionally, we discussed that his symptoms may be related to sedentary lifestyle obesity. Encouraged to gradually increase physical activity and engage in regular low-impact exercises and adhere to his weight management strategies. (2) HTN (hypertension) with goal to be determined: Code(s): I10 - Essential (primary) hypertension Category: Medical Plan: Patient's blood pressure is elevated today. Patient states that yesterday he was started on an antihypertensive by his PCP however has not started yet. Patient verified on his portal that it was olmesartan-hydrochlorothiazide. Advised patient to start taking it with his regular lisinopril. Advised patient to monitor blood pressures at home and keep a log of it. We will bring the patient back in 1 month for a nurse blood pressure visit. (3) Diabetes: Code(s): E11.9 - Type 2 diabetes mellitus without complications Category: Medical Plan: Continue diabetes management with an A1c goal of less than 7%. Continue statin therapy. (4) Sleep apnea treated with continuous positive airway pressure (CPAP): Code(s): G47.30 - Sleep apnea, unspecified Category: Medical Plan: Continue CPAP therapy. (5) Morbid obesity: Code(s): E66.01 - Morbid (severe) obesity due to excess calories Category: Medical Plan: Patient is currently pursuing Ozempic therapy for weight loss with his PCP. (6) Preop cardiovascular exam: Code(s): Z01.810 - Encounter for preprocedural cardiovascular examination Plan: Patient states he has an upcoming EGD and colonoscopy. Based on recent cardiac testing, he is considered to be at low to intermediate cardiac risk and may proceed with these procedures from a cardiac standpoint. This note was generated using voice recognition software. While every effort has been made to ensure accuracy and proper chief contract officer, there may be occasional errors that could affect the content or meaning of the described symptoms. Orders: Orders PFT pulmonary function test Today R06.02 - Shortness of breath Coding Level of Care Code Est Pt Level 4 (11423) Complex EM visit Add On G2211 Diagnoses Chest pain R07.9 HTN (hypertension) with goal to be determined I10 Diabetes E11.9 Sleep apnea treated with continuous positive airway pressure (CPAP) G47.30 Morbid obesity E66.01 Preop cardiovascular exam Z01.810 Time Spent (min) 32 Comment Time spent in reviewing the chart, test results, assessment, counseling and documentation.
--- OUTSIDE RECORDS SUMMARY | 2024-10-09 13:22 | XMS_ITS | Encounter Summary ---
Author Organization [employer] Address 75 [facility] 7t [place] [address] Care Team Providers Care Litigation Coordinator Name Role Phone Naheed Zaman Primary Care Provider [phone] Real Gomez MD Unavailable Reason for Visit * Reason Onset Date Comments Durable Medical Equipment 10/04/2022 Encounter Details Date Type Department Care Team (Late st Contact Info) Description 10/04/2022 Telephone [facility] MEDICINE [address] [place] [address] Naheed Zaman ANP [address] [place] [address] Durable Medical Equipment Social History Tobacco Use [...] for Compressions socks. Please contact pt at [phone] documented in this encounter Plan of Treatment Upcoming Encounters Date Type Department Care Team (Late st Contact Info) Description 10/11/2024 9:30 AM EDT Office Visit [address] [address] Omar Cortes MD [address] [place] [address] 11/08/2024 11:30 AM EDT Clinical Support [address] [address] 12/12/2024 3:00 PM EDT Office Visit [address] [address] Rut Branham MD [address] [place] [address] 01/09/2025 10:30 AM EDT Office Visit [address] [address] Naheed Zaman ANP [address] [place] [address] documented as of this encounter Visit Diagnoses Not on filedocumented in this encounter Care Teams Litigation Coordinator Relationship Specialty Start Date End Date Naheed Zaman ANP [address] [place] [address] PCP - General Family Medicine 01/18/22 Real Gomez MD [address] [place] [address] 3rd [place] [address] Cardiology 10/01/24 documented as of this encounter
--- OUTSIDE RECORDS SUMMARY | 2024-10-09 13:22 | XMS_ITS | Clinical Summary ---
Author Organization [facility] Address [address] [place] [address] Care Team Providers Care Clinical Genetics Laboratory Chief Name Role Phone Unavailable Primary Care Provider [...] recurrent major depressive disorder, with psychotic features ([facility]) 06/10/2024 Assessment & Plan (06/18/2024 11:18 AM EST): Patient refused to be seen, [place] steam frame operator was notified. Assessment & Plan (06/10/2024 [...] connected on video call until arrival of [place] Police with recommendation to section patient to [...] - 19 + 3-dose series) 11/14/2023 10/17/2023 [id number] (2023- season) 01/28/202412/29/2 021, 12/10/2020 Imm-Influenza (#1) 2024 02/27/2012, 01/27/2011 Alcohol and Drug Screen 05/29/2024 Diabetes Screening 05/16/2025 05/16/2024, 1 06/24/2023, 04/24/2024, Additional history exists Lipid Screening 04/24/2029 04/24/2024, 05/29, 02/27/2020 Imm-DTaP/Tdap/Td (3 - Td or Tdap) 10/16/2033 024, 03/15/2011 Hepatitis C Screening Completed 10/11/2023 HIV Screening Completed 12/13/2023, 11/26, 12/16/2021 Insurance [facility] [place]
--- OUTSIDE RECORDS SUMMARY | 2024-10-09 13:22 | XMS_ITS | Encounter Summary ---
Author Organization [employer] Address [address] [facility] 7t [place] [address] Care Team Providers Care Infertility Nurse Name Role Phone Naheed Zaman Primary Care Provider [phone] Real Gomez MD Unavailable Reason for Visit * Reason Onset Date Comments CHART PREP 10/07/2024 Encounter Details Date Type Department Care Team (Late st Contact Info) Description 10/07/2024 Telephone [facility] [address] [place] [address] Naheed Zaman ANP [address] [place] [address] CHART PREP Social History Tobacco Use Types Packs/Day Years [...] Answer Date Recorded Patient Health Questionnaire-9 Score 7 10/04/2024 Patient Health Questionnaire-9 Score 7 10/04/2024 Last PHQ-9: Questionnaire Data Not on file 0 10/04/2024 Housing Stability Answer Date Recorded What is your housing situation today? I have zack trejo 10/04/[address] you li ve. Do you have problems with any of the following? None of the above 10/04/2024 Food Insecurity Answer Date Recorded Within the past 12 months, y ou worried that your food would run out before you got money to buy more: Often true 10/04/2024 Within the past 12 months,th e food you bought just didn't last and you didn't have enough money to get more: Often true 01/2025 Transportation Answer Date Recorded In the past 12 months, has l ack of transportation kept you from medical appts, meetings, work or from getting things needed for daily living? No 10/04/2024 Utilities Answer Date Recorded In the past 12 months, has t he electric, gas, oil or water company threatened to shut off services in your home? Yes 10/04/2024 Depression Answer Date Recorded Patient Health Questionnaire-2 Score 2 10/04/2024 Internet Access Answer Date Recorded Internet Access Q1 Yes 10/04/2024 Internet Access Q2 Not on file 10/04/2024 Sex and Gender Information Value Date Recorded Sex Assigned at Male 03/28/2022 10:21 AM EDT Legal Sex Male 10:21 AM EDT Gender Identity Male 03/28/2022 10:21 AM EDT Sexual Orientation Straight 03/28/2022 10 :21 AM EDT documented as of this encounter Miscellaneous Notes * Telephone Encounter - Judi Brumfield [place] - 10/07/2024 12:11 PM EDT Chart Prep Labs: not applicable Images: not applicable Referrals: not applicable Vaccines due: Covid Screenings: foot exam Overdue care gaps: A1c, Glucose, SBIRT, Oral health screening, Disability screen, and Tobacco documented in this encounter Plan of Treatment Upcoming Encounters Date Type Department Care Team (Late st Contact Info) Description 10/11/2024 9:30 AM EDT Office Visit [facility] [address] [place] [address] Omar Cortes MD [address] [place] [address] 11/08/2024 11:30 AM EDT Clinical Support [facility] [address] [place] [address] 12/12/2024 3:00 PM EDT Office Visit [facility] [address] [place] [address] Rut Branham MD 230 [place] [address] 01/09/2025 10:30 AM EDT Office Visit [facility] [address] [place] [address] Naheed Zaman ANP [address] [place] [address] documented as of this encounter Visit Diagnoses Not on filedocumented in this encounter Additional Health Concerns Assessment Noted Time PHQ-9 Depression Total Score: 7 10/05/19 25 2:06 PM EDT documented as of this encounter Care Teams Infertility Nurse Relationship Specialty Start Date End Date Naheed Zaman ANP [address] [place] [address] PCP - General Family Medicine 01/18/22 Real Gomez MD [address] [place] [address] 3rd [place] [address] Cardiology 10/01/24 documented as of this encounter
--- OUTSIDE RECORDS SUMMARY | 2024-10-09 13:22 | XMS_ITS | Encounter Summary ---
Author Organization [employer] Address [address] [place] [address] 7t [place] [address] Care Team Providers Care Senior Market Research Analyst Name Role Phone Naheed Zaman Primary Care Provider [phone] Real Gomez MD Unavailable Encounter Details Date Type Department Care Team (Latest Contact Info) Description 12/29/2021 Abstract [facility] CONVERSIONS Dental, Provider, DDS Social History [...] Encounters Date Type Department Care Team ( st Contact Info) Description 10/11/2024 9:30 AM EDT Office Visit [facility] MED[facility] [address] [place] [address] Omar Cortes MD [address] [place] [address] 11/08/2024 11:30 AM EDT Clinical Support [facility] [address] [place] [address] 12/12/2024 3:00 PM EDT Office Visit [facility] [address] [place] [address] Rut Branham MD [address] [place] [address] 01/09/2025 10:30 AM EDT Office Visit [facility] [address] [place], [place] [phone] Naheed Zaman ANP [address] [place] [address] documented as of this encounter Visit Diagnoses Not on filedocumented in this encounter Care Teams Senior Market Research Analyst Relationship Specialty Start Date End Date Naheed Zaman ANP [address] [place] [address] PCP - General Family Medicine 01/18/22 Real Gomez MD [address] [place] [address] 3rd [place] [address] Cardiology 10/01/24 documented as of this encounter
--- OUTSIDE RECORDS SUMMARY | 2024-10-09 13:22 | XMS_ITS | Encounter Summary ---
Author Organization [employer] Address [address] [facility] 7t [place] [address] Care Team Providers Care Linen Grader Name Role Phone Naheed Zaman Primary Care Provider [phone] Real Gomez MD Unavailable Reason for Visit * Reason Comments Follow-up Diabetes Hypertension Encounter Details Date Type Department Care Team (Latest Contact Info) Description 10/08/2024 1:00 PM EDT Office Visit [facility] MEDICINE [address] [place] [address] Naheed Zaman ANP [address] [place] [address] Essential hypertension (Primary Dx); Type 2 diabetes mellitus with hyperlipidemia (CMS/HCC) ; Morbid obesity (CMS/HCC) Social History Tobacco Use Types Packs/Day [...] Sign Reading Time Taken Comments Blood Pressure 160/96 10/08/2024 1:43 PM EDT Pulse 58 10/08/2024 1:10 PM EDT Temperature - - Respiratory Rate 18 10/08/2024 1:10 PM EDT Oxygen Saturation - - Inhaled Oxygen Concentration - - Weight 178 kg (392 lb) 10/08/2024 1:10 PM EDT Height 165.1 cm (5' 5 ) 10/08/2024 1:10 PM EDT Body Mass Index 65.23 10/08/2024 1:10 PM EDT documented in this encounter Plan of Treatment Upcoming Encounters Date Type Department Care Team (Late st Contact Info) Description 10/11/2024 9:30 AM EDT Office Visit [facility] MED[facility] [address] [place] [address] Omar Cortes MD [address] [place] [address] 11/08/2024 11:30 AM EDT Clinical Support [facility] [place] [id number] 12/12/2024 3:00 PM EDT Office Visit [facility] [place] [id number] Rut Branham MD [address] [place], [place] [phone] 01/09/2025 10:30 AM EDT Office Visit [facility] [place] [phone] Naheed [facility]aman ANP [facility] [place] [id number] documented as of this encounter Procedures Procedure Name Priority Date/Time Associated Diagnosis Comments POCT GLYCATED HEMOGLOBIN, TOTAL Routine 10/08/2024 1:15 PM EDT Type 2 diabetes mellitus with hyperlipidemia ([facility]/HCC) POCT GLUCOSE Routine 10/08/2024 1:15 PM EDT Type 2 diabetes mellitus with hyperlipidemia ([facility]) documented in this encounter Results * POCT HGB A1C (10/08/2024 1:15 PM EDT) Hemoglobin A1C 5.6 4.0 - 6.0 % QC Media Lot # [id number] Lot# Expiration Date , Blood 10/08/2024 1:15 PM EDT us Naheed RAHMAN POINT OF CARE TEST ENTER/EDIT OR DERABLES Final Result * POCT Glucose (10/08/2024 1:15 PM EDT) Glucose Blood, POC 91 60 - 200 mg/dL QC Media Lot # [id number] Lot# Expiration Date ,025 Blood Capillary blood specimen / Unknown 10/08/2024 1:15 PM EDT Naheed RAHMAN POINT OF CARE TEST ENTER/EDIT OR DERABLES Final Result documented in this encounter Visit Diagnoses Diagnosis Essential hypertension- Primary Unspecified essential hypertension Type 2 diabetes mellitus with hyperlipidemia (CMS/HCC) Morbid obesity (CMS/HCC) Morbid obesity documented in this encounter Additional Health Concerns Assessment Noted Time PHQ-9 Depression Total Score: 7 10/05/19 25 2:06 PM EDT documented as of this encounter Care Teams Linen Grader Relationship Specialty Start Date End Date Naheed Zaman ANP [address] [place] [address] PCP - General Family Medicine 01/18/22 Real Gomez MD [address] [place] [address] 3rd [place] [address] Cardiology 10/01/24 documented as of this encounter
--- OUTSIDE RECORDS SUMMARY | 2024-10-09 13:22 | XMS_ITS | Encounter Summary ---
Author Organization [employer] Address [address] [facility] 7t [place] [address] Care Team Providers Care Family Nurse Practitioner Name Role Phone Naheed Zaman Primary Care Provider [phone] Real Gomez MD Unavailable Encounter Details Date Type Department Care Team (Latest Contact Info) Description 10/08/2024 Travel Social History Tobacco Use Types Packs/Day [...] Description 10/11/2024 9:30 AM EDT Office Visit [address] [address] Omar Cortes MD [address] [place] [address] 11/08/2024 11:30 AM EDT Clinical Support [address] [address] 12/12/2024 3:00 PM EDT Office Visit [address] [address] Rut Branham MD [address] [place] [address] 01/09/2025 10:30 AM EDT Office Visit [address] [address] Naheed Zaman ANP [address] [place] [address] documented as of this encounter Visit Diagnoses Not on filedocumented in this encounter Additional Health Concerns Assessment Noted Time PHQ-9 Depression Total Score: 7 10/05/19 25 2:06 PM EDT documented as of this encounter Care Teams Family Nurse Practitioner Relationship Specialty Start Date End Date Naheed Zaman ANP [address] [place] [address] PCP - General Family Medicine 01/18/22 Real Gomez MD [address] [place] [address] 3rd [place] [address] Cardiology 10/01/24 documented as of this encounter
--- OUTSIDE RECORDS SUMMARY | 2024-10-09 13:22 | XMS_ITS | Clinical Summary ---
Author Organization [facility] Address [address] [place] [address] Phone Care Team Providers Care Police Patrol Lieutenant Name Role Phone Naheed Zaman NP Primary Care Provider [phone] Allergies Active Allergy Reactions Criticality Noted Date [...] obesity with BMI of 6 0.0-69.9, adult ([facility] V24, [facility] V28) 04/17/2024 Acquired pes planus 05/11/2017 Pure hypercholesterolemia 05/10/2017 Pulmonary hypertension ([facility] V24, [facility] V28 ) 05/10/2017 Overview (04/17/2024): Mild, ECHO 10/21/10 C, EF 65-70% HTN (hypertension) 05/10/2017 H. pylori infection 05/10/2017 Overview (04/17/2024): + serology 08/07/2009, uncertain if treated Gout 05/10/2017 Elevated liver enzymes 05/10/2017 Overview (04/17/2024): fatty liver DJD (degenerative joint disease) 05/10/2017 Overview (04/17/2024): Mild L knee, Mod L shoulder arthropathy Asthma 05/10/2017 Proteinuria 04/30/2017 DM (diabetes mellitus), type 2 with renal complications ([facility] V24, [facility] V28) 04/30/2017 Spondylosis of lumbar region without myelopathy or radiculopathy 04/26/2017 Overview (04/17/2024): Saw [facility] Rheumatology BETSY (obstructive sleep apnea) 04/26/2017 Overview (04/17/2024): Polysomnography 08/05/2009, [facility] :On cpap 14 cm H2O 10/23/2017 Home Sleep Study insufficient data. 08/2018 - Pulm ordered split night study. Diabetes mellitus type 2 wit h neurological manifestations ([facility] V24, [facility] V28) 04/26/2017 CTS (carpal tunnel syndrome) [...] (diabetes mellitus), type 2 with renal complications ([facility] V24, [facility] V28) 04/30/2017 DX:DM (diabetes mellitus), t ype 2 with renal complications (HCC) Proteinuria 04/30/2017 DX:Proteinuria Diabetes mellitus type 2 wit h neurological manifestations ([facility] V24, [facility] V28) 04/26/2017 DX:Diabetes mellitus type 2 [...] obesity with BMI of 6 0.0-69.9, adult ([facility] V24, [facility] V28) 04/26/2017 DX:Morbid obesity wit h BMI of 60.0-69.9, adult ([facility]) BETSY (obstructive sleep apnea) 04/26/2017 DX :BETSY (obstructive sleep apnea); COMMENT: Polysomnography 08/05/2009, [facility] :On cpap 14 cm H2O Pulmonary hypertension ([facility] V24, [facility] V28) 05/10/2017 DX:Pulmonary hypertension (H CC); COMMENT: Mild, ECHO 10/21/10 [facility], [...] Ratio (02/27/2020) Urine Albumin Creatinine Ratio Abstracted [facility] Provider HEALTH MAINTENANCE Final Result * Annual BMP Blood Test (02/27/2020) Annual BMP Blood Test Abstracted Result [facility] Provider HEALTH MAINTENANCE Final Result * (ABNORMAL) Hemoglobin A1c (02/27/2020) Pathologist [facility] Hemoglobin A1C 6.9(A) <=6.5 % Blood Venous blood specimen / Unknown Result [facility] Provider LAB BLOOD ORDERABLES Brunilda l Result * Lipid panel (02/27/2020) LDL/HDL Ratio 3 0 - 4 Triglycerides 91 0 - 150 mg/dL Cholesterol 145 0 - 200 mg/dL HDL 58 >=40 mg/dL LDL Cholesterol 69 0 - 100 mg/dL Blood Venous blood specimen / Unknown Result [facility] Provider LAB BLOOD ORDERABLES Brunilda l Result * Hepatitis C Screening (06/22/2017) Hepatitis C Screening Abstracted us Historical Provider HEALTH MAINTENANCE Final Result from Last 3 Months or Most Recently Relevant to Health Maintenance Insurance MEDICAID - [place] Care Teams Police Patrol Lieutenant Relationship Specialty Start Date End Date Naheed Zaman NP [address] [place] [phone] PCP - General 02/21/24
--- OUTSIDE RECORDS SUMMARY | 2024-10-09 13:22 | XMS_ITS ---
Author Organization [employer] Address [address] [place] [address] Care Team Providers Care Automat Car Attendant Name Role Phone Naheed Zaman Primary Care Provider [phone] Real Gomez MD Unavailable [facility] Status:Enrolled (Active) Start date:09/13/2024 Enrollment date:10/04/2024 Enrollment reason:ADT Feed Overview ED- Pt went to [facility] ED on 09/12/24. Case Team Name Relationship Phone Josh Kebede(Responsible Staff) [phone] Continued Care and Services Coordination
--- OUTSIDE RECORDS SUMMARY | 2024-10-09 13:22 | XMS_ITS | Encounter Summary ---
Author Organization [employer] Address [address] [facility] 7t [place] [address] Care Team Providers Care Financial Agent Name Role Phone Naheed Zaman Primary Care Provider [phone] Real Gomez MD Unavailable Reason for Visit * Reason Comments Med Refill Encounter Details Date Type Department Care Team (Late st Contact Info) Description 09/14/2023 Refill [facility] [address] [place] [address] Dayna Cardenas MD [address] [place] [address] Uncomplicated opioid dependence (CMS/HCC) Social History Tobacco [...] Description 10/11/2024 9:30 AM EDT Office Visit [address] [address] Omar Cortes MD [address] [place] [address] 11/08/2024 11:30 AM EDT Clinical Support [address] [address] 12/12/2024 3:00 PM EDT Office Visit [address] [address] Rut Branham MD [address] [place] [address] 01/09/2025 10:30 AM EDT Office Visit [address] [address] Naheed Zaman ANP [address] [place] [address] documented as of this encounter Visit Diagnoses Diagnosis Uncomplicated opioid dependence (CMS/HCC) documented in this encounter Additional Health Concerns Assessment Noted Time PHQ-9 Depression Total Score: 6 11/19/19 23 3:29 PM EDT documented as of this encounter Care Teams Financial Agent Relationship Specialty Start Date End Date Naheed Zaman ANP [address] [place] [address] PCP - General Family Medicine 01/18/22 Real Gomez MD [address] [place] [address] 3rd [place] [address] Cardiology 10/01/24 documented as of this encounter
--- OUTSIDE RECORDS SUMMARY | 2024-10-09 13:22 | XMS_ITS | Encounter Summary ---
Author Organization [employer] Address [address] [facility] 7t [place] [address] Care Team Providers Care Shake Loader Name Role Phone Naheed Zaman Primary Care Provider [phone] Real Gomez MD Unavailable Reason for Visit * Reason Comments Med Refill Encounter Details Date Type Department Care Team (Late st Contact Info) Description 09/26/2024 Refill [facility] [address] [place] [address] Desirae Cowan MD [address] [place] [address] Social History Tobacco Use Types Packs/Day Years [...] Description 10/11/2024 9:30 AM EDT Office Visit [address] [address] Omar Cortes MD [address] [place] [address] 11/08/2024 11:30 AM EDT Clinical Support [address] [address] 12/12/2024 3:00 PM EDT Office Visit [address] [address] Rut Branham MD [address] [place] [address] 01/09/2025 10:30 AM EDT Office Visit [address] [address] Naheed Zaman ANP [address] [place] [address] documented as of this encounter Visit Diagnoses Not on filedocumented in this encounter Additional Health Concerns Assessment Noted Time PHQ-9 Depression Total Score: 25 024 8:12 AM EDT documented as of this encounter Care Teams Shake Loader Relationship Specialty Start Date End Date Naheed Zaman ANP [address] [place] [address] PCP - General Family Medicine 01/18/22 Real Gomez MD [address] [place] [address] 3rd [place] [address] Cardiology 10/01/24 documented as of this encounter
--- OUTSIDE RECORDS SUMMARY | 2024-10-09 13:22 | XMS_ITS | Encounter Summary ---
Author Organization [employer] Address [address] [facility] 7t [place] [address] Care Team Providers Care Gallery Host Name Role Phone Naheed Zaman Primary Care Provider [phone] Real Gomez MD Unavailable Reason for Visit * Reason Onset Date Comments callback requested 04/23/2024 Encounter Details Date Type Department Care Team ([facility] st Contact Info) Description 04/23/2024 Telephone [facility] MEDICINE [address] [place] [address] Naheed Zaman ANP [address] [place] [address] callback requested Social History Tobacco Use Types [...] returning call to Madie Olson Callback number [phone] documented in this encounter Plan of Treatment Upcoming Encounters Date Type Department Care Team (Late st Contact Info) Description 10/11/2024 9:30 AM EDT Office Visit [facility] MEDICINE [address] [place] [address] Omar Cortes MD [address] [place] [address] 11/08/2024 11:30 AM EDT Clinical Support [address] [address] 12/12/2024 3:00 PM EDT Office Visit [address] [address] Rut Branham MD [address] [place] [address] 01/09/2025 10:30 AM EDT Office Visit [facility] MED[facility] [address] [place] [address] Naheed Zaman ANP [address] [place] [address] documented as of this encounter Visit Diagnoses Not on filedocumented in this encounter Additional Health Concerns Assessment Noted Time PHQ-9 Depression Total Score: 25 024 8:12 AM EDT documented as of this encounter Care Teams Gallery Host Relationship Specialty Start Date End Date Naheed Zaman ANP [address] [place] [address] PCP - General Family Medicine 01/18/22 Real Gomez MD [address] 3rd [place] [address] Cardiology 10/01/24 documented as of this encounter
--- OUTSIDE RECORDS SUMMARY | 2024-10-09 13:22 | XMS_ITS | Encounter Summary ---
Author Organization [employer] Address [address] [facility] 7t [place] [address] Care Team Providers Care Banking Pin Adjuster Name Role Phone Naheed Zaman Primary Care Provider [phone] Real Gomez MD Unavailable Reason for Visit * Reason Onset Date Comments [facility] 12/12/2023 Encounter Details Date Type Department Care Team ([facility] st Contact Info) Description 12/12/2023 Telephone [facility] [address] [place], [place] [phone] Zay Schmidt DDS [address] [place], [place] [phone] [facility] Social History Tobacco Use Types Packs/Day Years [...] AM EDT documented as of this encounter Functional Status * Over the past 2 weeks, how often have you been bothered by any of the following problems? Question Answer Date of Assessment Author Patient Health Questionnaire-2 Score 6 11/26 3:51 PM EDT Vee Gold * If you checked off any problems on this questionnaire so far, Question Answer Date of Assessment Author How difficult have these problems made it for you to do your work, take care of things at home, or get along with other people? Extremely difficult 12/15/2023 3:51 PM EDT Vee Gold * Over the last 2 weeks, how often have you been bothered by any of the following problems? Question Answer Date of Assessment Author Feeling nervous, anxious, or on edge 3 11/26 3:52 PM EDT Vee Gold Not being able to stop or co ntrol worrying 3 12/15/2023 3:52 PM EDT Vee Gold Worrying too much about diff erent things 3 12/15/2023 3:52 PM EDT Vee Gold Trouble relaxing 3 12/15/2023 3:52 PM EDT Vee Matamoros Being so restless that it is hard to sit still 0 12/15/2023 3:52 PM EDT Vee Gold Becoming easily annoyed or irritable 3 11/26 3:52 PM EDT Vee Gold Feeling afraid as if somethi ng awful might happen 3 12/15/2023 3:52 PM EDT Vee Gold MICHAEL-7 Total Score 18 12/15/2023 3:52 PM EDT Vee Gold * Over the past 2 weeks, how often have you been bothered by any of the following problems? Question Answer Date of Assessment Author Little interest or pleasure in doing things Nearly every day 12/15/2023 3:51 PM MAYAT Vee Gold Feeling down, depressed, or hopeless Nearly every day 12/15/2023 3:51 PM EDT Vee Gold Trouble falling or staying asleep, or sleeping too much Nearly every day 12/15/2023 3:51 PM EDT Vee Gold Feeling tired or having little energy Nearly every day 12/15/2023 3:51 PM Vee Moss Poor appetite or overeating Nearly every day 3:51 PM EDT Vee Gold Feeling bad about yourself - or that you are a failure or have let yourself or your family down Nearly every day 12/15/2023 3:51 PM Vee Moss Trouble concentrating on things, such as reading the newspaper or watching television Nearly every day 12/15/2023 3:51 PM MAYAT Vee Gold Moving or speaking so slowly that other people could have noticed? Or the opposite - being so fidgety or restless that you have been moving around a lot more than usual. Nearly every day 12/15/2023 3:51 PM EDT Vee Gold Thoughts that you would be better off or hurting yourself in some way Several days 12/15/2023 3:51 PM Vee Moss Patient Health Questionnaire-9 Score 25 12/15/2023 3:51 PM Vee Moss documented as of this encounter Miscellaneous Notes [...] taking the medicationas scripted for dental relief. DR Anne Robins office phone number [phone] documented in this encounter Plan of Treatment Upcoming Encounters Date Type Department Care Team (Late st Contact Info) Description 10/11/2024 9:30 AM EDT Office Visit [address] [address] Omar Cortes MD [address] [place] [address] 11/08/2024 11:30 AM EDT Clinical Support [address] [phone] 12/12/2024 3:00 PM EDT Office Visit [address] [address] Rut Branham MD [address] [place] [address] 01/09/2025 10:30 AM EDT Office Visit [facility] [address] [place] [address] Naheed Zaman ANP 230 [place], [place] [phone] documented as of this encounter Visit Diagnoses Not on filedocumented in this encounter Additional Health Concerns Assessment Noted Time PHQ-9 Depression Total Score: 23 024 3:25 PM EDT documented as of this encounter Care Teams Banking Pin Adjuster Relationship Specialty Start Date End Date Naheed Zaman ANP [address] [place], [place] [phone] PCP - General Family Medicine 01/18/22 Real Gomez MD [address] [place] [address] 3rd [place] [address] Cardiology 10/01/24 documented as of this encounter
--- OUTSIDE RECORDS SUMMARY | 2024-10-09 13:22 | XMS_ITS | Encounter Summary ---
Author Organization [employer] Address [address] [place] [address] 7 [place] [address] Care Team Providers Care Product Technician Name Role Phone Naheed Zaman Primary Care Provider [phone] Real Gomez MD Unavailable Reason for Visit * Reason Comments Med Refill Encounter Details Date Type Department Care Team (Late st Contact Info) Description 02/02/2023 Refill [facility] [address] [place] [address] Rut Branham MD [address] [place] [address] Uncomplicated opioid dependence (CMS/HCC) Social History Tobacco [...] Description 10/11/2024 9:30 AM EDT Office Visit [facility] [address] [place] [address] Omar Cortes MD [address] [place] [address] 11/08/2024 11:30 AM EDT Clinical Support [address] [address] 12/12/2024 3:00 PM EDT Office Visit [address] [address] Rut Branham MD [address] [place] [address] 01/09/2025 10:30 AM EDT Office Visit [address] [phone] Naheed Zaman ANP [address] [place] [phone] documented as of this encounter Visit Diagnoses Diagnosis Uncomplicated opioid dependence (CMS/HCC) documented in this encounter Additional Health Concerns Assessment Noted Time PHQ-9 Depression Total Score: 6 11/19/19 23 3:29 PM EDT documented as of this encounter Care Teams Product Technician Relationship Specialty Start Date End Date Naheed Zaman ANP [address] [place] [address] PCP - General Family Medicine 01/18/22 Real Gomez MD [address] [place] [address] 3rd [place] [address] Cardiology 10/01/24 documented as of this encounter
--- OUTSIDE RECORDS SUMMARY | 2024-10-09 13:22 | XMS_ITS | Encounter Summary ---
Author Organization [employer] Address [address] [facility] 7t [place] [address] Care Team Providers Care Head Lineman Name Role Phone Naheed Zaman Primary Care Provider [phone] Real Gomez MD Unavailable Encounter Details Date Type Department Care Team (Late st Contact Info) Description 10/04/[address] [facility] 230 [place] [address] Naheed Zaman ANP 230 [place] [address] Social History Tobacco Use Types Packs/Day Years [...] Answer Date of Assessment Author Patient Health Questionnaire -2 Score 2 10/04/2024 2:06 PM Rut Camara RN * Little interest or pleasure in doing things Answer Date of Assessment Author Several days 10/04/2024 2:06 PM Naheed Camara RN * Feeling down, depressed, or hopeless Answer Date of Assessment Author Several days 10/04/2024 2:06 PM Naheed Camara RN * Trouble falling or staying asleep, or sleeping too much Answer Date of Assessment Author Several days 10/04/2024 2:06 PM Naheed Camara RN * Feeling tired or having little energy Answer Date of Assessment Author Several days 10/04/2024 2:06 PM Naheed Camara RN * Poor appetite or overeating Answer Date of Assessment Author Several days 10/04/2024 2:06 PM Naheed Camara RN * Feeling bad about yourself - or that you are a failure or have let yourself or your family down Answer Date of Assessment Author Several days 10/04/2024 2:06 PM Naheed Camara RN * Trouble concentrating on things, such as reading the newspaper or watching television Answer Date of Assessment Author Several days 10/04/2024 2:06 PM Naheed Camara RN * Moving or speaking so slowly that other people could have noticed? Or the opposite - being so fidgety or restless that you have been moving around a lot more than usual. Answer Date of Assessment Author Not at all 10/04/2024 2:06 PM Naheed Camara RN * Thoughts that you would be better off or hurting yourself in some way Answer Date of Assessment Author Not at all 10/04/2024 2:06 PM Naheed Camara RN * Patient Health Questionnaire-9 Score Answer Date of Assessment Author 7 10/04/2024 2:06 PM Naheed Camara RN * How difficult have these problems made it for you to do your work, take care of things at home, or get along with other people? Answer Date of Assessment Author Somewhat difficult 10/04/2024 2:06 PM Rut Camara RN * Over the last 2 weeks, how often have you been bothered by any of the following problems? Question Answer Date of Assessment Author Feeling nervous, anxious, or on edge 1 10/04/2024 2:06 PM Rut Camara RN Not being able to stop or co ntrol worrying 1 10/04/2024 2:06 PM Rut Camara RN Worrying too much about diff erent things 1 10/04/2024 2:06 PM Rut Camara RN Trouble relaxing 1 10/04/2024 2:06 PM Rut Elena RN Being so restless that it is hard to sit still 1 10/04/2024 2:06 PM Rut Camara RN Becoming easily annoyed or irritable 1 10/04/2024 2:06 PM EDT Rut Patel RN Feeling afraid as if somethi ng awful might happen 1 10/04/2024 2:06 PM EDT Rut Patel RN MICHAEL-7 Total Score 7 10/04/2024 2:06 PM EDT Rut Patel RN documented as of this encounter Plan of Treatment Upcoming Encounters Date Type Department Care Team (Late st Contact Info) Description 10/11/2024 9:30 AM EDT Office Visit [address] [address] Omar Cortes MD [address] [place] [address] 11/08/2024 11:30 AM EDT Clinical Support [address] [address] 12/12/2024 3:00 PM EDT Office Visit [address] [address] Rut Branham MD [address] [place] [address] 01/09/2025 10:30 AM EDT Office Visit [address] [address] Naheed Zaman ANP [address] [place] [address] documented as of this encounter Visit Diagnoses Not on filedocumented in this encounter Additional Health Concerns Assessment Noted Time PHQ-9 Depression Total Score: 7 10/05/19 25 2:06 PM EDT documented as of this encounter Care Teams Head Lineman Relationship Specialty Start Date End Date Naheed Zaman ANP [address] [place] [address] PCP - General Family Medicine 01/18/22 Real Gomez MD [address] [place] [address] 3rd [place] [address] Cardiology 10/01/24 documented as of this encounter
--- OUTSIDE RECORDS SUMMARY | 2024-10-09 13:22 | XMS_ITS | Encounter Summary ---
Author Organization [employer] Address [address] [facility] 7t [place] [address] Care Team Providers Care Vest Front Presser Name Role Phone Naheed Zaman Primary Care Provider [phone] Real Gomez MD Unavailable Encounter Details Date Type Department Care Team (Late st Contact Info) Description 10/04/2024 Plan of Care Documentation [facility] [address] [place] [address] Social History Tobacco Use Types Packs/Day Years [...] annoyed or irritable 1 10/04/2024 2:06 PM Rut Camara RN Feeling afraid as if somethi ng awful might happen 1 10/04/2024 2:06 PM EDT Rut Patel RN MICHAEL-7 Total Score 7 10/04/2024 2:06 PM EDT Rut Patel RN documented as of this encounter Plan of Treatment Upcoming Encounters Date Type Department Care Team (Late st Contact Info) Description 10/11/2024 9:30 AM EDT Office Visit [address] [address] Omar Cortes MD [facility] [place] [address] 11/08/2024 11:30 AM EDT Clinical Support [facility] [place] [address] 12/12/2024 3:00 PM EDT Office Visit [address] [address] Rut Branham MD [address] [place] [address] 01/09/2025 10:30 AM EDT Office Visit [facility] [place] [address] [place] [address] documented as of this encounter Visit Diagnoses Not on filedocumented in this encounter Additional Health Concerns Assessment Noted Time PHQ-9 Depression Total Score: 7 10/05/19 25 2:06 PM EDT documented as of this encounter Care Teams Vest Front Presser Relationship Specialty Start Date End Date Naheed Zaman ANP [facility] [place] [address] PCP - General Family Medicine 01/18/22 Real Gomez MD [address] [place] [address] 3rd [place] [address] Cardiology 10/01/24 documented as of this encounter
--- OUTSIDE RECORDS SUMMARY | 2024-10-09 13:22 | XMS_ITS | Clinical Summary ---
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 Alcohol Swabs (Alcohol Prep) 70 % pads USE FOUR TIMES DAILY WITH INSULIN Active Blood Glucose Monitoring Suppl (FreeStyle Winthrop Lite) w/Device kit TEST BLOOD SUGAR FOUR TIMES DAILY Active FREESTYLE LITE test strip TEST BLOOD SUGAR FOUR TIMES DAILY Active glucose blood (FREESTYLE LITE) test strip check fingerstick 4 times a day Active Sure Comfort Pen [place] 31G X 5 MM misc USE FOUR [...] Active beta carotene (vitamin A) 3 MG (34479 UT) capsule TAKE 2 CAPSULES BY MOUTH [...] Active Blood Pressure Monitor kitIndications:P ulmonary hypertension ([facility]) 1 kit in the morning. 1 kit 024 Active metoclopramide (Reglan) 10 MG tablet 1 tablet as needed every 6 hrs for nausea/vomiting 40 tablet 024 Active atorvastatin (Lipitor) 10 MG tabletIndication s:Type 2 diabetes mellitus with hyperlipidemia ([facility]/HCC) ([facility]) Take 1 tablet (10 mg) by mouth at bedtime. 90 tablet 3 024 Active GaviLAX 17 GM/SCOOP powder TAKE DIRECTED BY MOUTH THE DAY BEFORE YOUR PROCEDURE. 024 Active Carafate 1 GM/10ML suspension 024 Active chlorhexidine (Peridex) 0.12 % solution Swish 15 mL morning and night for 1 minute. Spit, do not swallow. Do not eat or drink for 30 minutes following use. 473 mL 024 Active Continuous Glucose Artificial Stone Applicator (FreeStyle Casey 2 [place]) deviceIndication s:Diabetes mellitus with albuminuria (CMS/HCC) ([facility]) Scan sensor every 8 hours 1 each 024 Active Continuous Glucose Sensor (FreeStyle Casey 2 Sensor) miscIndications: Diabetes mellitus with albuminuria (CMS/HCC) ([facility]) Apply 1 sensor every 14 days 2 each Active glucose blood (FreeStyle Precision Lefty Test) test stripIndications :Diabetes mellitus with albuminuria (CMS/HCC) ([facility]) Use to test blood sugar 3 times daily 100 each 12 024 2024 Active glucose (BD Glucose) 5 g chewable tabletIndication s:Type 2 diabetes mellitus with hyperlipidemia (CMS/HCC) ([facility]) Chew 3 tablets (15 g) if needed for low blood sugar. 50 tablet 5 024 2024 Active ammonium lactate (Amlactin) 12 % creamIndications :Venous stasis dermatitis of both lower extremities Apply topically if needed for dry skin. 385 g 024 2024 Active liver oil-zinc oxide (Desitin) 40 % ointment Apply topically if needed in the morning and at bedtime for irritation. 56 g 024 Active meloxicam (Mobic) 15 MG tabletIndication s:Chronic low back pain without sciatica, unspecified back pain laterality TAKE 1 TABLET BY MOUTH EVERY DAY NEEDED (for pain) 30 tablet 3 025 Active betamethasone valerate (Valisone) 0.1 % [...] morning. 90 capsule 1 025 2024 Active insulin glargine (Lantus SoloStar) 100 UNIT/ML pen INJECT 55 UNITS SUBCUTANEOUSLY AT BEDTIME 15 mL 3 Active semaglutide (Ozempic) 2 MG/1.5ML solution pen-injectorIndi cations:Type 2 diabetes mellitus with hyperlipidemia (CMS/HCC) (CMS/HCC) 0.5 mg once weekly subcutaneously 1 each 12 Active olmesartan-hydro CHLOROthiazide (Benicar HCT) 40-12.5 MG tabletIndication s:Essential hypertension Take 1 tablet by mouth Once per day. 90 tablet 3 025 2025 Active esomeprazole (NexIUM) [address] capsuleIndicatio ns:Gastroesophag eal reflux disease, unspecified whether esophagitis present Take 1 capsule (40 mg) by mouth before breakfast. Do not open capsule. 90 capsule 1 024 2024 Discontinued semaglutide (Ozempic) 2 MG/1.5ML solution pen-injectorIndi cations:Type 2 diabetes mellitus with hyperlipidemia (CMS/HCC) (CMS/HCC) 0.25 subcutaneous once weekly for 4 weeks, then increase to 0.5 mg once weekly 1 each 12 024 2024 Discontinued( Reorder (will not trigger notification to Pharmacy)) Lantus SoloStar 100 UNIT/ML pen INJECT 55 UNITS SUBCUTANEOUSLY EVERY NIGHT 15 mL 3 025 2024 Discontinued lisinopril 40 MG tabletIndication s:Type 2 diabetes mellitus with hyperlipidemia (CMS/HCC) (CMS/HCC),Persis tent proteinuria Take 1 tablet (40 mg) by mouth Once per day. 90 tablet 1 025 2024 Discontinued( Ineffective) hydrOXYzine pamoate (Vistaril) 25 MG capsuleIndicatio ns:MICHAEL [...] Health Integration Plan Internal Follow up with [facility] Patient Self Plan [facility], Comply with medication , [...] Health Integration Plan Internal Follow up with [facility] Patient Self Plan Patient to [facility] as needed, Comply with medication , [...] Health Integration Plan Internal Follow up with [facility] Patient Self Plan Patient to utilize skills provided in intervention , Patient to reach out to [facility] team as needed, and Patient [...] Health Integration Plan Internal Follow up with [facility] External OP psychiatry Referral Patient Self Plan Patient to reach out to [facility] team as needed, Comply with medication , Patient to engage in OP therapy , and Patient to reach out to [facility] as needed Assessment & Plan (09/20/2023 10:06 AM EDT): New/Additional Services needed Off-site services for Behavioral Health Integration Plan External OP therapy referral Patient Self Plan Patient to utilize skills provided in intervention , Patient to reach out to [facility] team as needed, Comply with [...] explained that she tried referring pt to [facility] and other centers and pt;s can not be evaluated for plastic surgery w current BMI -I request referral to be sent to [facility] but was explained is the same [...] hypertension 05/10/2017 Overview (07/28/2022): Mild, ECHO 10/21/10 [facility], EF 65-70% H. pylori infection 05/10/2017 Overview (07/28/2022): + serology 08/07/2009, uncertain if treated Gout 05/10/2017 Elevated liver enzymes 05/10/2017 Overview (07/28/2022): fatty liver Arthritis 05/10/2017 Overview (07/28/2022): Mild L knee, Mod L shoulder arthropathy Asthma 05/10/2017 Spondylosis of lumbar region without myelopathy or radiculopathy 04/26/2017 Overview (07/28/2022): [place] [facility] [place] CTS (carpal tunnel [...] Overview (07/28/2022): Polysomn[place] 08/05/2009, [facility] [place] cpap 14 cm H2O 10/23/2017 Home Sleep Study insufficient data. 08/2018 - Pulm ordered split night study. Proteinuria 05/18/2015 Encounters * This document contains information received from the source organization and may not represent a complete record from that organization. Date Type Department Care Team Description 10/08/2024 1:00 PM EDT Office Visit [address] [address] Sofia Mitchell ANP Essential hypertension (Primary Dx); Type 2 diabetes mellitus with hyperlipidemia ([facility]/HCC) ; Morbid obesity ([facility]) 10/08/2024 Travel 10/08/[address] [address] Sofia Mitchell ANP 10/07/[address] [address] Sofia Mitchell ANP CHART PREP 10/04/2024 Plan of Care Documentation [address] [address] 10/04/[address] [facility] [address] [place] [address] Sofia Mitchell ANP Care Coordination (C3 initial assessment/ enrollment) 10/04/2024 Patient Outreach [address] [address] Sofia Mitchell ANP Care Coordination ([facility]/AMANDA Escobar SDOH & enrollment completed ) 10/04/2024 Patient Outreach [address] [address] Sofia Mitchell ANP 10/03/2024 Patient Outreach [address] [address] Sofia Mitchell ANP Care Coordination ([facility]/EDEN Kebede, appt reminder) 10/02/[address] [address] Sofia Mitchell ANP 10/02/[address] [phone] Arlette Hill, RN Results 10/01/2024 Orders Only [address] [address] Sofia Mitchell ANP 10/01/2024 Orders Only GENERIC EXTERNAL DATA DEPARTMENT Provider, Generic External Data 09/27/2024 Telephone [facility] [address] [place] [phone] Sofia Mitchell ANP Appointment Request 09/27/[address] [address] Sofia Mitchell ANP No Show 09/27/[address] [facility] [address] [place] [address] Sofia Mitchell ANP 09/27/2024 Patient Outreach [address] [address] Sofia Mitchell ANP 09/26/2024 Refill [facility] [address] [place] [phone] Desirae Cowan MD 09/22/[address] [address] Sofia Mitchell ANP Gastroesophageal reflux disease, unspecified whether esophagitis present 09/19/2024 3:00 PM EDT Office Visit [address] [address] Rut Branham MD Opioid type dependence, continuous ([facility]) (Primary Dx) 09/19/2024 Travel 09/13/2024 Patient Outreach [address] [address] Sofia Mitchell ANP Care Coordination ([facility]/Mimi Kebede, TC initial assessment scheduled ) 09/13/2024 Patient Outreach [address] [address] Sofia Mitchell ANP Care Coordination ([facility]/Mimi Kebede, Chart review ) 09/13/[address] [facility] [address] [place] [address] Sofia Mitchell ANP Care Coordination ([facility] Chart review) 09/13/2024 Patient Outreach [address] [address] Sofia Mitchell ANP 09/12/2024 Orders Only [facility] External Provider, [facility] 09/09/2024 Refill [facility] [address] [place] [phone] Rut Branham MD Uncomplicated opioid dependence (CMS/HCC) 08/23/2024 10:00 AM EDT Office Visit [facility] [address] [place] [phone] Zay Schmidt DDS History of tooth extraction, unspecified edentulism class (Primary Dx) 08/23/[address] [address] Arlette Hill, RN DME Question 08/14/[address] [address] Sofia Mitchell ANP [employer] (Bath tub wall rail) 08/09/2024 Population Health Risk Score [facility] (C3) Department [address] [place] [phone] Provider, Population Health Generic 08/06/[address] [address] Sofia Mitchell ANP Prior Authorization (Ozempic) 08/06/[address] [address] Sofia Mitchell ANP Durable Medical Equipment (Grab bars) 08/06/2024 Orders Only GENERIC EXTERNAL DATA DEPARTMENT Provider, Generic External Data 08/05/[address] [address] Sofia Mitchell ANP Nurse Triage 08/02/2024 Outside Procedure [facility] [address] [place] [phone] Arik Vegan, OD Presbyopia (Primary Dx) 08/01/2024 2:45 PM EST Office Visit [facility] [address] [place] [address] Arik Vegan, OD Hyperopia of both eyes (Primary Dx) 07/25/2024 3:00 PM EST Office Visit [address] [address] Rut Branham MD Opioid type dependence, continuous (CMS/HCC) (Primary Dx); Severe episode of recurrent major depressive disorder, without psychotic features (CMS/HCC) 07/25/2024 Travel 07/24/2024 Refill [facility] [address] [place] [address] Verona Estrada MD Venous stasis dermatitis of both lower extremities 07/18/2024 Refill [facility] [address] [place] [address] Tristen Chen, APRIL Uncomplicated opioid dependence ([facility]) 07/16/2024 Travel 07/12/2024 Telephone [facility] [address] [place], [place] [phone] Sofia Mitchell ANP Prior Authorization (Ozempic) from Last 3 Months Immunizations Immunization Administration Dates Next Due Hep B, adult [...] Pulse 58 10/08/2024 1:10 PM EDT Temperature 36.7 ??C (98.1 ??F) 07/10/2024 2:00 PM ES T Respiratory Rate 18 10/08/2024 1:10 PM EDT Oxygen Saturation 98% 07/10/2024 2:00 PM EST Inhaled Oxygen Concentration - - Weight 178 kg (392 lb) 10/08/2024 1:10 PM EDT Height 165.1 cm (5' 5 ) 10/08/2024 1:10 PM EDT Body Mass Index 65.23 10/08/2024 1:10 PM EDT Plan of Treatment Upcoming Encounters Date Type Department Care Team (Late st Contact Info) Description 10/11/2024 9:30 AM EDT Office Visit [facility] [address] [place] [address] Omar Cortes MD [address] [place], [place] [phone] 11/08/2024 11:30 AM EDT Clinical Support [address] [address] 12/12/2024 3:00 PM EDT Office Visit [address] [address] Rut Branham MD [address] [place], [place] [phone] 01/09/2025 10:30 AM EDT Office Visit [address] [phone] Sofia Mitchell ANP [address] [place], [place] [phone] Health Maintenance Due Date Last Done Comments [...] 2024 2, 02/27/2012, 01/27/2011, Additional history exists Diabetes: Hemoglobin A1C 04/10/2025 025, 07/10/2024, 04/24/2024, Additional history exists Lipid Panel 04/24/2025 04/24/2024, 06/14/2023 Depression Screening 10/04/2025 10/04/2024, 10/05/19 25 SDOH Screening 10/04/2025 10/04/2024 Alcohol/Substance Use Screening 10/08/2025 10/08/2024 Tobacco Screening 10/08/2025 10/08/2024 Eye Exam 06/27/2026 06/27/2024, 05/31, 06/27/2024, Additional [...] EDT Type 2 diabetes mellitus with hyperlipidemia (CMS/HCC) POCT GLUCOSE Routine 10/08/2024 1:15 PM EDT Type 2 diabetes mellitus with hyperlipidemia (CMS/HCC) XR HAND 3+ VIEWS BILATERAL Routine 10/01/2024 10:40 AM EDT XR WRIST 3+ VIEWS BILATERAL Routine 10/01/2024 10:40 AM EDT VITAMIN D 25-OH (D2 AND D3) Routine 10/01/2024 10:27 AM EDT VITAMIN D,25-OH,TOTAL,IA Routine 10/01/2024 10:27 AM EDT NM HEART PERFUSION SPECT STRESS AND REST Urgent 09/20/2024 11:19 AM EDT Pre-op exam Type 2 diabetes mellitus with hyperlipidemia ([facility]/HCC) Morbid obesity ([facility]) Atypical chest pain POCT RAMSES-14 URINE DRUG SCREEN Routine 09/19/2024 1:44 PM EDT Opioid type dependence, continuous ([facility]) CTA CHEST PE PROTOCAL Routine 09/12/2024 1:07 [...] 2:14 PM EST Opioid type dependence, continuous ([facility]/HCC) HEPATITIS PANEL, GENERAL Routine 07/03/2024 1:30 PM EST LIPID PANEL, STANDARD Routine 04/24/2024 11:23 AM EST HIV 1/2 ANTIGEN/ANTIBODY, FOURTH GENERATION W/RFL Routine 12/13/2023 11:48 AM EDT Elevated erythrocyte sedimentation rate 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) (CMS/HCC) from Last 3 Months or Most Recently Relevant to Health Maintenance Results * POCT HGB A1C (10/08/2024 1:15 PM EDT) Hemoglobin A1C 5.6 4.0 - 6.0 % QC Media Lot # [id number] Lot# Expiration Date Blood 10/08/2024 1:15 PM EDT us Sofia Mitchell ANP POINT OF CARE TEST ENTER/EDIT OR DERABLES Final Result * POCT Glucose (10/08/2024 1:15 PM EDT) Glucose Blood, POC 91 60 - 200 mg/dL QC Media Lot # [id number] Lot# Expiration Date 025 Blood Capillary blood specimen / Unknown 10/08/2024 1:15 PM EDT us Sofia RAHMAN POINT OF CARE TEST ENTER/EDIT OR DERABLES Final Result * XR Hand 3+Views Bilateral (10/01/2024 10:40 AM EDT) Anatomical Region Laterality Modality Upper Extremities, Hand Bilateral Radiogra phic Imaging 10/01/2024 10:4 0 AM EDT Narrative 10/01/2024 12:22 PM EDT ? [facility] ?[address] ?[place] [address] ?XRay Report ? Signed ? Patient: Ross Navarrete L ?MR#: [id number] ?? 613 ? : 1980 ?Acct:[id number] ? Age/Sex: 43 / M ?ADM Date: 10/01/24 ? Loc: HO.LAB ? Attending Dr: Lorenza pU MD ? Ordering Physician: Lorenza Up MD ?? Date of Service: 10/01/24 ?? Procedure(s): XR Hand Bilat min 3v ?? Accession Number(s): [id number] ? cc: Lorenza Up MD; SOFIA MITCHELL [...] DD/ 1040 ? TD/TT: 10/01/24 1057 ? Gas Well Pumper: ? Procedure Note Donotuseinterpreter, Image - 10/01/[address] [address] XRay Report Signed Patient: Ross Navarrete LMR#: [id number] 613 : 1980Acct:[id number] Age/Sex: 43 / MADM Date: 10/01/24 Loc: HO.LAB Attending Dr: Lorenza Up MD Ordering Physician: Lorenza Up MD Date of Service: 10/01/24 Procedure(s): XR Hand Bilat min 3v Accession Number(s): [id number] cc: Lorenza Up MD; SOFIA MITCHELL NP [...] 10/01/24 1219 DD/ 1040 TD/TT: 10/01/24 1057 Gas Well Pumper: [facility] External Provider IMG XR PROCEDURES Final Result * XR Wrist 3+ Views Bilateral (10/01/2024 10:40 AM EDT) Anatomical Region Laterality Modality Upper Extremities, Wrist Bilateral Radiogr aphic Imaging 10/01/2024 10:4 0 AM EDT Narrative 10/01/2024 12:13 PM EDT ? [facility] ?[address] ?[place] [address] ?XRay Report ? Signed ? Patient: Navarrete,Ross L ?MR#: [id number] ?? 613 ? : 1980 ?Acct:[id number] ? Age/Sex: 43 / M ?ADM Date: 10/01/24 ? Loc: HO.LAB ? Attending Dr: Lorenza Up MD ? Ordering Physician: Lorenza Up MD ?? Date of Service: 10/01/24 ?? Procedure(s): XR Wrist Donovan min 3V ?? Accession Number(s): [id number] ? cc: Lorenza Up MD; SOFIA MITCHELL [...] DD/ 1040 ? TD/TT: 10/01/24 1057 ? Gas Well Pumper: ? Procedure Note Donotuseinterpreter, Image - 10/01/[address] [address] XRay Report Signed Patient: Ross Navarrete LMR#: [id number] 613 : 1980Acct:[id number] Age/Sex: 43 / MADM Date: 10/01/24 Loc: HO.LAB Attending Dr: Lorenza Up MD Ordering Physician: Lorenza Up MD Date of Service: 10/01/24 Procedure(s): XR Wrist Donovan min 3V Accession Number(s): [id number] cc: Lorenza Up MD; SOFIA MITCHELL NP [...] Hamzah Mcdaniels MD 10/01/2024 12:10 PM EDT Dictated By: Hamzah Mcdaniels MD Signed By: <Electronically signed by Hamzah Mcdaniels MD in OV> 10/01/24 1210 DD/ 1040 TD/TT: 10/01/24 1057 Gas Well Pumper: [facility] External Provider IMG XR PROCEDURES Final Result * VITAMIN D 25-OH (D2 AND D3) (10/01/2024 10:27 AM EDT) Vitamin D, 25-OH, D2 <4 ng/mL [facility] Comment:This test was develo ped and its analytical performancecharacteristics have been determined by [employer] [place], [place]. It hasnot been cleared or approved by the .[place]. Food and DrugAdministration. This assay has been validated pursuantto the CLIA regulations and is used for clinicalpurposes.THIS TEST WAS PERFORMED AT:[employer] [id number] [place] [address]QRPCBSYMINI NICOLAS MD,PHD Vitamin D, 25-OH, D3 31 ng/mL [facility] Comment:This test was develo ped and its analytical performancecharacteristics have been determined by [employer] [place], [place]. It hasnot been cleared or approved by the U.S. Food and DrugAdministration. This assay has been validated pursuantto the CLIA regulations and is used for clinicalpurposes. Vitamin D, 25-OH, Total 31 30 - 100 ng/mL [facility] Comment:Vitamin D, 25-Hydrox y reports [...] = 30 ng/mL.For additional information, please refer tohttp://education.[employer]/faq/RIP795(This link is being provided for informational/educational purposes only.) 10/01/2024 10:2 7 AM EDT 10/01/2024 10:33 AM EDT us Generic External Data Provider LAB BLOOD ORDERAB LES Final Result [facility] [address] [place] [phone] * Vitamin D, 25-Hydroxy, Total, Immunoassay (10/01/2024 10:27 AM EDT) Vitamin D 25-OH Total 37.8 >30 ng/mL [facility] Comment: Health Based Reference Values*< 20 ??ng/mL ??[id number] ng/mL ??Insufficient> 30 ??ng/mL ??Sufficient*Rony TOMAS. N [...] Provider LAB BLOOD ORDERAB LES Final Result [facility] [address] [place] [phone] * NM heart perfusion SPECT stress and rest (09/20/2024 11:19 AM EDT) Anatomical Region Laterality Modality Body Nuclear Medicine 09/20/2024 11:1 9 AM EDT Narrative 09/26/2024 4:05 PM EDT ? [place] [facility] ?[address] ?[place] [address] ?Nuclear Medicine Report ? Signed ? Patient: Navarrete,Ross L ?MR#: [id number] ?? 613 ? : 1980 ?Acct:[id number] ? Age/Sex: 43 / M ?ADM Date: 09/20/24 ? Loc: HO.CARD ? Attending Dr: Sofia Mitchell CLOTH BIN PACKER ? Ordering Physician: SOFIA MITCHELL NP ?? Date of Service: 09/20/24 ?? Procedure(s): NM cha perf SPECT rest ?? str ?? Accession Number(s): [id number] ? cc: SOFIA MITCHELL NP ? Lexiscan [...] Cordoba MD ??09/26/2024 04:02 ?? PM EDT RP ? Dictated By: ?Hayden Cordoba MD ? Signed By: ?<Electronically signed by Hayden Cordoba MD in OV> ?09/26/24 1602 ? DD/ 1119 ? TD/TT: 09/25/24 0935 ? Gas Well Pumper: ? Procedure Note Donotuseinterpreter, Image - 09/26/2024 [place] [address] Nuclear Medicine Report Signed Patient: Ross Navarrete LMR#: [id number] 613 : 1980Acct:[id number] Age/Sex: 43 / MADM Date: 09/20/24 Loc: CATHY Attending Dr: Sofia Mitchell NP Ordering Physician: SOFIA MITCHELL NP Date of Service: 09/20/24 Procedure(s): NM cha perf SPECT rest str Accession Number(s): [id number] cc: SOFIA MITCHELL NP Lexiscan Myocardial perfusion [...] Hayden Cordoba MD 09/26/2024 04:02 PM EDT RP Dictated By: Hayden Cordoba MD Signed By: <Electronically signed by Hayden Cordoba MD inOV> 09/26/24 1602 DD/ 1119 TD/TT: 09/25/24 0935 Gas Well Pumper: Sofia DOLL NM PROCEDURES Final Result * [...] procedure / Unknown 09/19/2024 1:44 PM EDT us Rut Branham MD POINT OF CARE TEST ENTER/YI T ORDERABLES Final Result * CTA Chest PE Protocal (09/12/2024 1:07 PM EDT) Anatomical Region Laterality Modality Body, Chest Computed Tomogra phy 09/12/2024 1:07 PM EDT Narrative 09/12/2024 2:13 PM EDT ? [facility] ?[address] ?[place] [address] ? CT Scan Report ? Signed ? Patient: Navarrete,Ross L ?MR#: [id number] ?? 613 ? : 1980 ?Acct:[id number] ? Age/Sex: 43 / M ?ADM Date: 09/12/24 ? Loc: HO.ED ? Attending Dr: ? Ordering Physician: Pat Landers ?? Date of Service: 09/12/24 ?? Procedure(s): CT angio chest PE protocol ?? Accession Number(s): [id number] ? cc: Pat Landers; SOFIA MITCHELL NP ? Report Number: ?? [id number]: Total DLP = ??658.38 mGy-cm ?? EXAMINATION: [...] DD/ 1307 ? TD/TT: 09/12/24 1359 ? Gas Well Pumper: ? Procedure Note Maria T Cronin - 09/12/[address] [place] [address] [address] Scan Report Signed Patient: Ross Navarrete LMR#: [id number] 613 : 1980Acct:[id number] Age/Sex: 43 / MADM Date: 09/12/24 Loc: .ED Attending Dr: Ordering Physician: Pat Landers Date of Service: 09/12/24 Procedure(s): CT angio chest PE protocol Accession Number(s): [id number] cc: Pat Landers; SOFIA MITCHELL NP Report Number: [id number]: Total DLP = 658.38 mGy-cm EXAMINATION: CT [...] 09/12/24 1411 DD/ 1307 TD/TT: 09/12/24 1359 Gas Well Pumper: [facility] External Provider IMG CT PROCEDURES Final Result * CT Abdomen Pelvis w/o Contrast (09/12/2024 1:07 PM EDT) Anatomical Region Laterality Modality Body, Pelvis, Abdomen Computed T omography 09/12/2024 1:07 PM EDT Narrative 09/12/2024 2:07 PM EDT ? [facility] ?[address] ?[place] [address] ? CT Scan Report ? Signed ? Patient: Navarrete,Ross L ?MR#: [id number] ?? 613 ? : 1980 ?Acct:[id number] ? Age/Sex: 43 / M ?ADM Date: 04/17/25 ? Loc: HO.ED ? Attending Dr: ? Ordering Physician: Pat Landers ?? Date of Service: 09/12/24 ?? Procedure(s): CT abdomen pelvis wo IV con ?? Accession Number(s): [id number] ? cc: Pat Landers; SOFIA MITCHELL NP ? Report Number: ?? [id number]: Total DLP = 1782.28 mGy-cm ?? EXAMINATION: [...] ??Gurinder Valdez MD ??09/12/2024 02:04 PM EDT ? Dictated By: ?Gurinder Valdez MD ? Signed By: ?<Electronically signed by Gurinder Valdez MD in OV> ?09/12/24 1404 ? DD/ 1307 ? TD/TT: 09/12/24 1356 ? Gas Well Pumper: ? Procedure Note Maria T Cronin - 09/12/[address] [place] [address] [address] Scan Report Signed Patient: Ross Navarrete LMR#: [id number] 613 : 1980Acct:[id number] Age/Sex: 43 / MADM Date: 09/12/24 Loc: HO.ED Attending Dr: Ordering Physician: Pat Landers Date of Service: 09/12/24 Procedure(s): CT abdomen pelvis wo IV con Accession Number(s): [id number] cc: Pat Landers; SOFIA MITCHELL NP Report Number: [id number]: Total DLP = 1782.28 mGy-cm EXAMINATION: CT [...] 09/12/24 1404 DD/ 1307 TD/TT: 09/12/24 1356 Gas Well Pumper: [facility] External Provider IMG CT PROCEDURES Final Result * (ABNORMAL) Urinalysis, Complete, with Reflex to Culture (09/12/2024 10:22 AM EDT) Color Urine Yellow [facility] Appearance Urine Clear [facility] PH 5.5 5.0 - 9.0 [facility] Glucose Urine UA Negative Negative mg/dL [facility] Urine Blood Negative Negative [facility] Specific [place] - Urine 1.020 1.005 - 1.025 [facility] Urine Protein 300 (3+)(A) Neg-Trace mg/dL [facility] Urine Ketones Negative Negative mg/dL [facility] Nitrite Urine Negative Negative [facility] Leukocyte Esterase Urine Negative Negative [facility] RBC Urine 0-2 0 - 2 /HPF [facility] Urine WBC 0-5 0 - 5 /HPF [facility] Urine Squamous Epithelial Cell 0-2 0 - 2 /HPF [facility] Urine Bacteria None Seen None Seen [facility] Hyaline Casts, Urine 0-2 0 - 2 /LPF [facility] 09/12/2024 10:2 2 AM EDT 09/12/2024 10:31 AM EDT Narrative [facility] - 09/12/2024 10:40 AM EDT Urine, Clean Catch Generic External Data Provider LAB URINE ORDERAB LES Final Result [facility] [address] [place] [phone] * (ABNORMAL) CBC auto differential (09/12/2024 10:22 AM EDT) Only the most recent of2 resultswithin the time period is included. White Blood Count 8.6 4.8 - 10.8 X10*3/uL [facility] Red Blood Count 4.71 4.60 - 5.80 X10*6/uL [facility] Hemoglobin 13.3(L) 14.0 - 18.0 g/dl [facility] Hematocrit 40.1(L) 42.0 - 52.0 % [facility] Mean Corpuscular Volume 85.1 80.0 - 98.0 fL [facility] Mean Corpuscular Hemoglobin 28.2 27.0 - 33.0 pg [facility] Mean Corpuscular HGB Conc 33.2 31.0 - 36.0 g/dl [facility] Red Cell Distribution Width 12.7 11.0 - 16.0 % [facility] Platelet Count 134(L) 160 - 400 X10*3/uL [facility] Mean Platelet Volume 11.7 9.4 - 12.4 fL [facility] Neutrophils Percent Auto 66.8 45 - 73 % [facility] Imm Gran Pct Auto 0.5(H) 0.0 - 0.4 % [facility] Lymphocytes Percent Auto 24.5 20 - 40 % [facility] Monocytes Percent Auto 6.1 2 - 11 % [facility] Eosinophils Percent Auto 1.6 0 - 4 % [facility] Basophils Percent Auto 0.5 0 - 2 % [facility] NRBC Pct Auto 0.0 0.0 - 0.2 /100WBC [facility] Neutrophils Absolute Auto 5.8 2.0 - 8.3 x10*3/uL [facility] Imm Gran Abs Auto 0.04(H) 0.00 - 0.03 X10*3/uL [facility] Lymphocytes Absolute Auto 2.1 1.2 - 4.9 X10*3/uL [facility] Monocytes Absolute Auto 0.5 0.1 - 1.2 X10*3/uL [facility] Eosinophils Absolute Auto 0.1 0.0 - 0.4 X10*3/uL [facility] Basophils Absolute Auto 0.0 0.0 - 0.2 X10*3/uL [facility] NRBC Abs Auto 0.000 0.0 - 0.012 X10*3/uL [facility] 09/12/2024 10:2 2 AM EDT 09/12/2024 10:31 AM EDT us Generic External Data Provider LAB BLOOD ORDERAB LES Final Result [facility] [address] [place] [address] [phone] * (ABNORMAL) Comprehensive Metabolic Panel (09/12/2024 10:22 AM EDT) Sodium 136 135 - 145 mmol/L [facility] Potassium 4.1 3.3 - 5.1 mmol/L [facility] Chloride 102 96 - 108 mmol/L [facility] Carbon Dioxide 25 22 - 29 mmol/L [facility] Anion Gap 13 12 - 20 [facility] Urea Nitrogen (BUN) 23(H) 9 - 16 mg/dL [facility] Creatinine, Serum 1.18 0.5 - 1.4 mg/dL [facility] Creatinine Clr Calc Pharmacy 124.3 [facility] Comment:eGFR (calculated fro m the MDRD study equation) and eCrCl(calculated from the Cockcroft-Gault equation) are based ondifferent parameters and may not yield comparable results.If eCrCl result is absurd, please check patient'sheight/weight. Estimated Glomerular Filt Rate >60 [facility] Comment:Chronic Kidney Disea se: Estimated GFR < 60 mL/min/1.45o0Pfhaye Kidney Disease: Estimated GFR < 15 mL/min/1.73m2 Glucose 180(H) 60 - 115 mg/dL [facility] Calcium 9.5 8.4 - 10.2 mg/dL [facility] Bilirubin, Total 0.7 0.0 - 1.0 mg/dL [facility] Aspartate Amino Transferase 24 5 - 37 U/L [facility] Alanine Aminotransferase 22 0 - 40 U/L [facility] Total Protein 7.8 6.5 - 8.0 g/dL [facility] Albumin Level 3.9 3.5 - 5.0 g/dL [facility] Alkaline Phosphatase 75 39 - 117 U/L [facility] 09/12/2024 10:2 2 AM EDT 09/12/2024 10:31 AM EDT us Generic External Data Provider LAB BLOOD ORDERAB LES Final Result [facility] [address] [facility] [place] [address] [phone] * XR Chest 1 View (09/12/2024 10:10 AM EDT) Only the most recent of2 resultswithin the time period is included. Anatomical Region Laterality Modality Chest Radiographic Lupe ging 09/12/2024 10:1 0 AM EDT Narrative 09/12/2024 10:29 AM EDT ? [facility] ?[address] ?[place] [address] ?XRay Report ? Signed ? Patient: Ross Navarrete ?MR#: [id number] ?? [id number] ? : 1980 ?Acct:[id number] ? Age/Sex: 43 / M ?ADM Date: 09/12/24 ? Loc: HO.ED ? Attending Dr: ? Ordering Physician: Generic ED Physician ?? Date of Service: 09/12/24 ?? Procedure(s): XR chest 1V ?? Accession Number(s): [id number] ? cc: Generic ED Physician; SOFIA MITCHELL [...] DD/ 1010 ? TD/TT: 09/12/24 1019 ? Gas Well Pumper: ? Procedure Note Donandre, Image - 09/12/[address] [address] XRay Report Signed Patient: Ross Navarrete LMR#: [id number] 613 : 1980Acct:[id number] Age/Sex: 43 / MADM Date: 09/12/24 Loc: .ED Attending Dr: Ordering Physician: Generic ED Physician Date of Service: 09/12/24 Procedure(s): XR chest 1V Accession Number(s): [id number] cc: Generic ED Physician; SOFIA MITCHELL NP [...] 09/12/24 1026 DD/ 1010 TD/TT: 09/12/24 1019 Gas Well Pumper: [facility] External Provider IMG XR PROCEDURES Final Result * SARS-CoV-2 RNA, Influenza A/B, and RSV RNA, Ql NAAT (08/06/2024 12:26 PM EDT) Influenza A PCR NEGATIVE Negative [facility] Influenza B PCR NEGATIVE Negative [facility] Resp Syncy Virus RNA Qual PCR NEGATIVE Negative [facility] SARS COV2 PCR NEGATIVE Negative [facility] Comment:All test results mus t [...] use by authorized laboratories.Testing performed on the [employer] GeneXpert utilizingreal-time RT-PCR.All SARS CoV2 and positive influenza A/B results arereported to [facility]. 08/06/2024 12:2 6 PM EDT 08/06/2024 12:28 PM EDT us Generic External Data Provider LAB MICROBIOLOGY - GENERAL ORDERABLES Final Result [facility] [address] [place] [phone] * Prothrombin Time-INR (08/06/2024 10:13 AM EDT) Prothrombin Time 11.7 10.9 - 12.4 SEC [facility] INTERNATIONAL NORM RATIO 1.0 0.9 - 1.1 [facility] Comment:INTERNATIONAL NORMAL IZED RATIO (INR) [...] ORDERAB LES Final Result Performing Organization Address City/[facility]/ZIP Co de Phone Number [facility] [address] [place] [address] [phone] * Hepatitis Panel, General (07/03/2024 1:30 PM EST) Pathologist [facility] Hepatitis A IgM Nonreactive Nonreactive [facility] Comment:IgM antibodies to MONTERO V not detected; does not exclude earlyacute or recovered HAV infection. ~Hepatitis B Surface Antibody NONREACTIVE Nonreactive [facility] Comment:Nonreactive: < 8.00 mIU/mL Hepatitis B Core Antibody Nonreactive Nonreactive [facility] Hepatitis C Antibody Nonreactive Nonreactive [facility] Comment:Antibodies to HCV no t detected; does not exclude early acuteHCV infection. Hepatitis B Surface Ag Negative Negative [facility] 07/03/2024 1:30 PM EST 07/03/2024 4:16 PM EST [employer] External Data Provider LAB BLOOD ORDERAB LES Final Result Performing Organization Address City/[facility]/ZIP Co de Phone Number [facility] [address] [place] [address] [phone] * Lipid Panel, Standard (04/24/2024 11:23 AM EST) Triglycerides 132 <150 mg/dL [facility] Comment:Desirable Triglyceri de: less than 150 mg/dLBorderline High Triglyceride 150-199 mg/dLHigh Triglyceride: 200-499 mg/dLVery High Triglyceride: greater than or equal to 5OO mg/dL Cholesterol 165 <200 mg/dL [facility] Comment:Desirable Cholestero l: less than 200 mg/dLBorderline High Cholesterol: 200-239 mg/dLHigh Cholesterol: greater than 239 mg/dL LDL Cholesterol Calculated 91 <100 mg/dL [facility] Comment:Desirable LDL: less than 100 mg/dLNear Optimal/Above Optimal LDL: 110- 129 mg/dLBorderline High LDL: 130-159 mg/dLHigh LDL: 160-189 mg/dLVery High LDL: greater than or equal to 190 mg/dL HDL Cholesterol 48 >40 mg/dL [facility] Comment:Desirable HDL: great er than 40 mg/dL Note: This HDL assay may give artificially low results in patients with liver disease. 04/24/2024 11:2 3 AM EST 04/24/2024 11:23 AM EST us Generic External Data Provider LAB BLOOD ORDERAB LES Final Result Performing Organization Address City/[facility]/ZIP Co de Phone Number [facility] [address] [place] [phone] * HIV-1/2 Antigen and Antibodies, Fourth Generation, with Reflexes (12/13/2023 11:48 AM EDT) HIV AB/AG Nonreactive Nonreactive [facility] Comment:HIV-1 p24 Ag and/or HIV-1/HIV-2 Ab not detected.A test result that is nonreactive does not exclude thepossibility of exposure to or infection with HIV-1 and/orHIV-2. Nonreactive results in this assay for individualswith prior exposure to HIV-1 and/or HIV-2 may be due toantigen and antibody levels that are below the limit ofdetection of this assay.The [employer] HIV Ag/Ab Combo assay result andsupplemental assay results should be interpreted inconjunction with the patient's clinical presentation,history and other laboratory results. If the results areinconsistent with clinical evidence, additional testing issuggested to confirm the result. Blood Venous blood specimen / Unknown 12/13/2023 11:48 AM EDT 12/13/2023 12:51 PM EDT us Sofia Mitchell [facility] LAB BLOOD ORDERABLES Final Resul t Performing Organization Address [facility]/ZIP Co de Phone Number [facility] [address] [place] [address] [phone] from Last 3 Months or Most Recently Relevant to Health Maintenance Insurance [facility] C[facility] HSN F[facility] MEDICAID STAND ADULT Care Teams Truck Driver Instructor Relationship Specialty Start Date End Date Sofia Mitchell ANP [address] [place] [address] PCP - General Family Medicine 01/18/22 Real Gomez MD [address] [place] [address] Drive 3rd [place] [address] Cardiology 10/01/24
--- OUTSIDE RECORDS SUMMARY | 2024-10-09 13:22 | XMS_ITS ---
Author Organization [employer] Address [address] [facility] [address], [place] [address] Care Team Providers Care Azure Architect Name Role Phone Naheed Zaman Primary Care Provider [phone] Real Gomez MD Unavailable CM Complex Status:Enrolled (Active) Start date:09/13/2024 Enrollment date:10/04/2024 Enrollment reason:ADT Feed Overview ED- Pt went [facility] [place] [facility]. Case Team Name Relationship Phone Rut Patel RN(Responsible Staff) Registered Nurse [phone] Continued Care and Services Coordination
--- OUTSIDE RECORDS SUMMARY | 2024-10-09 13:22 | XMS_ITS | Encounter Summary ---
Author Organization [employer] Address [address] [facility] 7t [place] [address] Care Team Providers Care Trouble Tracer Name Role Phone Naheed Zaman Primary Care Provider [phone] Real Gomez MD Unavailable Reason for Visit * Reason Comments Med Refill Encounter Details Date Type Department Care Team (Late st Contact Info) Description 08/18/2023 Refill [facility] [address] [place] [address] Naheed Zaman ANP [address] [place] [address] Chronic low back pain without sciatica, unspecified [...] Description 10/11/2024 9:30 AM EDT Office Visit [address] [address] Omar Cortes MD [address] [place] [address] 11/08/2024 11:30 AM EDT Clinical Support [address] [address] 12/12/2024 3:00 PM EDT Office Visit [address] [address] Rut Branham MD [address] [place] [address] 01/09/2025 10:30 AM EDT Office Visit [address] [address] Naheed Zaman ANP [address] [place] [address] documented as of this encounter Visit Diagnoses Diagnosis Chronic low back pain without sciatica, unspecified back pain laterality documented in this encounter Additional Health Concerns Assessment Noted Time PHQ-9 Depression Total Score: 6 11/19/19 23 3:29 PM EDT documented as of this encounter Care Teams Trouble Tracer Relationship Specialty Start Date End Date Naheed Zaman ANP [address] [place] [address] PCP - General Family Medicine 01/18/22 Real Gomez MD [address] [place] [address] 3rd [place] [address] Cardiology 10/01/24 documented as of this encounter
--- OUTSIDE RECORDS SUMMARY | 2024-10-09 13:22 | XMS_ITS | Encounter Summary ---
Author Organization [employer] Address [address] [facility] 7t [place] [address] Care Team Providers Care Fish Tender Name Role Phone Nhaeed Zaman Primary Care Provider [phone] Real Gomez MD Unavailable Reason for Visit * Reason Comments Care Coordination C3/W AMANDA Bella SDOH & enrollment completed Encounter Details Date Type Department Care Team (Latest Contact Info) Description 10/04/2024 Patient Outreach [facility] [address] [place] [address] Naheed Zaman ANP [address] [place] [address] Care Coordination (CM/AMANDA Escobar & enrollment completed ) Social History Tobacco Use Types Packs/Day [...] the past 12 months, has t he [employer], gas, oil or water [employer] threatened to shut off services in your [...] encounter Progress Notes * Josh Kebede - 10/04/2024 1:44 PM EDT CHW Josh Kebede placed outbound call to patient to assess SDOH needs. Patient has food insecurities due to complex health conditions that require patient to follow a special diet. Patient informs that he received a shut off notice from [employer]. Patient took necessary steps to apply for utility assistance through [employer] and is waiting determination. Patient is also working on getting a medical protection plan for [employer]. CHW introduced the [facility] Nutrition Program. Program details explained to the patient. Patient agreeable to participate in the program. Referral will be placed. Patient verbalizes understanding, and able to repeat back to communications writer. A follow up call willbe placed within 10 days, patient agrees with plan. documented in this encounter Plan of Treatment Upcoming Encounters Date Type Department Care Team (Late st Contact Info) Description 10/11/2024 9:30 AM EDT Office Visit [facility] [place] [address] [place] [address] 11/08/2024 11:30 AM EDT Clinical Support [facility] [place] [address] 12/12/2024 3:00 PM EDT Office Visit [facility] [place] [phone] Rut Branham MD [facility] [place] [address] 01/09/2025 10:30 AM EDT Office Visit [facility] [place] [address] Naheed Zaman ANP [facility] [place] [address] documented as of this encounter Visit Diagnoses Not on filedocumented in this encounter Additional Health Concerns Assessment Noted Time PHQ-9 Depression Total Score: 7 10/05/19 25 2:06 PM EDT documented as of this encounter Care Teams Fish Tender Relationship Specialty Start Date End Date Naheed Zaman ANP [facility] [place] [address] PCP - General Family Medicine 01/18/22 Real Gomez MD [address] [place] [address] 3rd [place] [address] Cardiology 10/01/24 documented as of this encounter
--- OUTSIDE RECORDS SUMMARY | 2024-10-09 13:22 | XMS_ITS | Encounter Summary ---
Author Organization [employer] Address 75 [facility] 7t [place] [address] Care Team Providers Care Pilot Plant Research Technician Name Role Phone Naheed Zaamn Primary Care Provider [phone] Real Gomez MD Unavailable Reason for Visit * Reason Comments Med Refill Encounter Details Date Type Department Care Team (Late st Contact Info) Description 10/08/2024 Refill [facility] [address] [place] [address] Naheed Zaman ANP [address] [place] [address] Social History Tobacco Use Types Packs/Day Years [...] the past 12 months, has t he [employer], gas, oil or water company threatened to [...] Description 10/11/2024 9:30 AM EDT Office Visit [address] [address] Omar Cortes MD [address] [place] [address] 11/08/2024 11:30 AM EDT Clinical Support [address] [address] 12/12/2024 3:00 PM EDT Office Visit [address] [address] Rut Branham MD [address] [place] [address] 01/09/2025 10:30 AM EDT Office Visit [address] [address] Naheed Zaman ANP [address] [place] [address] documented as of this encounter Visit Diagnoses Not on filedocumented in this encounter Additional Health Concerns Assessment Noted Time PHQ-9 Depression Total Score: 7 10/05/19 25 2:06 PM EDT documented as of this encounter Care Teams Pilot Plant Research Technician Relationship Specialty Start Date End Date Naheed Zaman ANP [address] [place] [address] PCP - General Family Medicine 01/18/22 Real Gomez MD [address] [place] [address] 3rd [place] [address] Cardiology 10/01/24 documented as of this encounter
--- OUTSIDE RECORDS SUMMARY | 2024-10-09 13:22 | XMS_ITS | Encounter Summary ---
Author Organization [employer] Address [address] [facility] 7t [place] [address] Care Team Providers Care Spreading Machine Operator Name Role Phone Naheed Zaman Primary Care Provider [phone] Real Gomez MD Unavailable Encounter Details Date Type Department Care Team ([facility] Contact Info) Description 07/28/2022 Abstract [facility] [address] [place] [address] Zay Schmidt DDS [address] [place] [address] Social History Tobacco Use Types Packs/Day Years [...] Upcoming Encounters Date Type Department Care Team ([facility] Contact Info) Description 10/11/2024 9:30 AM EDT Office Visit [facility] [address] [place] [address] Omar Cortes MD [address] [facility] [place] [address] 11/08/2024 11:30 AM EDT Clinical Support [facility] [address] 12/12/2024 3:00 PM EDT Office Visit [address] [address] Rut Branham MD [address] [place] [address] 01/09/2025 10:30 AM EDT Office Visit [address] [address] Naheed Zaman ANP [address] [place] [address] documented as of this encounter Visit Diagnoses Not on filedocumented in this encounter Care Teams Spreading Machine Operator Relationship Specialty Start Date End Date Naheed Zaman ANP [address] [place] [address] PCP - General Family Medicine 01/18/22 Real Gomez MD [address] [place] [address] 3rd [place] [address] Cardiology 10/01/24 documented as of this encounter
--- OUTSIDE RECORDS SUMMARY | 2024-10-09 13:22 | XMS_ITS | Encounter Summary ---
Author Organization [employer] Address [address] [facility] 7t [place] [address] Care Team Providers Care Equipment Specialist Name Role Phone Naheed Zaman Primary Care Provider [phone] Real Gomez MD Unavailable Reason for Visit * Reason Comments Care Coordination C3CM initial assessm ent/ enrollment Encounter Details Date Type Department Care Team (Latest Contact Info) Description 10/04/2024 Patient Outreach [facility] [address] [place] [address] Naheed Zaman ANP [address] [place] [address] Care Coordination ([facility] initial assessment/ enrollment) Social History Tobacco Use Types Packs/Day Years [...] Questionnaire -2 Score 2 10/04/2024 2:06 PM MAYAT Rut Patel RN * Little interest or pleasure in [...] to sit still 1 10/04/2024 2:06 PM EDT Rut Patel RN Becoming easily annoyed or irritable 1 10/04/2024 2:06 PM EDT Rut Patel RN Feeling afraid as if somethi ng awful might happen 1 10/04/2024 2:06 PM EDT Rut Patel RN MICHAEL-7 Total Score 7 10/04/2024 2:06 PM EDT Rut Patel RN documented as of this encounter Progress Notes * Rut Patel RN - 10/04/2024 1:44 PM EDT CM Rut Patel RN placed outbound call to patient for agreed upon time for initial assessment for enrollment into Adult Care Management Program. Patient's name, , and address were verified. Pt states he sees multiple specialist and has all his upcoming appointments written down. Per pt, he has an upcoming diagnostic testing to rule out liver cirrhosis at and an appt with the cardiologiston 10/09/2024 for chronic chest pain. Pt c/o back pain, leg pain and headaches. Pt states he takes prescribed pain medications with good effect. Pt reports he is up to date with his dental and visionappointments. Pt states he has cut down on his food size and eating at smaller portions, has cut down on carbohydrates and fast food for weight management and to manage his DM. Pt reports non compliance with BP check and reports BP checked during assessment as 140/68. Pt states he is compliant withall his medications and denies any side effect. Pt denies drinking or smoking or taking any illegaldrugs. Pt states he is currently on suboxone. Pt reports depression and is currently seeing a psychi atrist for depression management. Pt denies SI/HI but states she has less interest in the things around him and sometimes isolate himself. Pt states his assist him with his ADLs but is challenging for his . CM advised pt to call alfonso so that he can be evaluated for MUSEUM EXHIBIT TECHNICIAN hours. Pt denies any personal goals at this time. CM plan includes health education, care coordination, connecting ptto the needed resources and appt reminder. Care management program explained and contact information given. Patient verbalizes understanding, and able to repeat back to manual writer. A follow up call will be placed within 10 days, patient agrees with plan. documented in this encounter Plan of Treatment Upcoming Encounters Date Type Department Care Team (Late st Contact Info) Description 10/11/2024 9:30 AM EDT Office Visit [address] [address] [place] [address] 11/08/2024 11:30 AM EDT Clinical Support [address] [address] 12/12/2024 3:00 PM EDT Office Visit [address] [address] Rut Branham MD [address] [place] [address] 01/09/2025 10:30 AM EDT Office Visit [facility] [place] [address] [place] [address] documented as of this encounter Visit Diagnoses Not on filedocumented in this encounter Additional Health Concerns Assessment Noted Time PHQ-9 Depression Total Score: 7 10/05/19 25 2:06 PM EDT documented as of this encounter Care Teams Equipment Specialist Relationship Specialty Start Date End Date [place] [address] PCP - General Family Medicine 01/18/22 Real Gomez MD [address] [place] [address] 3rd [place] [address] Cardiology 10/01/24 documented as of this encounter
== END 2024-10-09 13:36 | disposition home or self-care (01) ==
LOC: HO.HCS 13:06
PROVIDERS: PCP Nurse Practitioner Primary Care
DX: R07.9 Chest pain, unspecified (principal); I10 Essential (primary) hypertension; E11.9 Type 2 diabetes mellitus without complications; G47.30 Sleep apnea, unspecified; E66.01 Morbid (severe) obesity due to excess calories; Z01.810 Encounter for preprocedural cardiovascular examination
CPT/HCPCS: 99214

== ENCOUNTER → 2024-10-09 13:06 | Outpatient (BNVA) | payer MEDICAID, SELFPAY | PROVIDERS: PCP Nurse Practitioner Primary Care | DX: Z01.810 Encounter for preprocedural cardiovascular examination (principal); R07.9 Chest pain, unspecified; E11.9 Type 2 diabetes mellitus without complications; E66.01 Morbid (severe) obesity due to excess calories; G47.30 Sleep apnea, unspecified; I10 Essential (primary) hypertension | CPT/HCPCS: 99212 ==

== ENCOUNTER 2024-10-28 12:22 | Outpatient (AMB) | payer MEDICAID, SELFPAY ==
[2024-10-28 13:05] VITALS: BMI 64.7
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
--- OUTSIDE RECORDS SUMMARY | 2024-10-28 13:25 | XMS_ITS | Encounter Summary ---
Author Organization [employer] Address [address] [facility] 7t [place] [address] Care Team Providers Care Food Service Worker Name Role Phone Naheed Zaman Primary Care Provider [phone] Real Gomez MD Unavailable Reason for Visit * Reason Comments Med Refill Encounter Details Date Type Department Care Team (Late st Contact Info) Description 08/18/2023 Refill [facility] [address] [place] [address] Naheed Zaman ANP [address] [place] [address] Chronic low back pain without sciatica, unspecified [...] Care Team (Late st Contact Info) Description 11/08/2024 11:30 AM EDT Clinical Support [address] [address] 12/12/2024 3:00 PM EDT Office Visit [address] [address] Rut Branham MD [address] [place] [address] 01/09/2025 10:30 AM EDT Office Visit [address] [address] Naheed Zaman ANP [address] [place] [address] documented as of this encounter Visit Diagnoses Diagnosis Chronic low back pain without sciatica, unspecified back pain laterality documented in this encounter Additional Health Concerns Assessment Noted Time PHQ-9 Depression Total Score: 6 11/19/19 23 3:29 PM EDT documented as of this encounter Care Teams Food Service Worker Relationship Specialty Start Date End Date Naheed Zaman ANP [address] [place] [phone] PCP - General Family Medicine 01/18/22 Real Gomez MD [address] [place] [address] 3rd [place] [address] Cardiology 10/01/24 documented as of this encounter
== END 2024-10-28 14:04 | disposition home or self-care (01) ==
LOC: HO.HSMS 12:22
PROVIDERS: PCP Nurse Practitioner Primary Care; Visit Provider Physician Assistant Medical
DX: G47.30 Sleep apnea, unspecified (principal); E66.01 Morbid (severe) obesity due to excess calories; G25.81 Restless legs syndrome; D50.9 Iron deficiency anemia, unspecified
CPT/HCPCS: 99214

== ENCOUNTER → 2024-10-28 12:22 | Outpatient (BNVA) | payer MEDICAID, SELFPAY | PROVIDERS: PCP Nurse Practitioner Primary Care; Visit Provider Physician Assistant Medical | DX: G47.33 Obstructive sleep apnea (adult) (pediatric) (principal); E66.01 Morbid (severe) obesity due to excess calories; G25.81 Restless legs syndrome; D50.9 Iron deficiency anemia, unspecified; Z99.89 Dependence on other enabling machines and devices | CPT/HCPCS: 99212 ==

== ENCOUNTER 2024-11-06 09:29 | Outpatient (RCR) | payer MEDICAID, SELFPAY ==
--- NOTE | 2024-09-13 14:24 | MHC.PT.EP ---
[facility] [place] [facility] [place] [facility] [place] Office [address] Eileen Hernandez [address] [phone] F: [phone] F: [phone] F: [phone] F: [phone] Physical Therapy Plan of Care Date of Evaluation: 09/13/24 Date of Surgery: Diagnosis: severe osteoarthritis of LEFT shoulder/GHJ (RS) Assessment: Ross is a 43 y.o. male who is referred to PT by Jerod Nichols PA-C of [facility] with Dx of severe osteoarthritis of LEFT shoulder/GHJ. Patient impairments include significant pain, UE weakness, severe ROM limitation, poor posture. Pt with comorbidities that will effect his care; DMT2, morbid obesity, fibromyalgia. Patient current functional limitations are Difficulty with ADLs cleaning, reaching, dressing, toileting. Patient will benefit from skilled PT to address aforementioned impairments and functional limitations to meet established goals. Fair prognosis due to severity of pain and OA and limitations of mobility. Frequency and Duration: The patient will be seen 1x/week for 4 weeks Short Term Goals: 2 weeks Patient demonstrates consistency and independence with HEP to self manage symptoms. Detention Goals: 4 weeks Patient is able to obtain TENS unit to utilize for his shoulder to manage pain level. Patient presents with increased L shoulder flexion 60 degrees to improve ability to perform upper body dressing. Treatment Plan: Modalities to reduce pain, spasms and effusion. Manual therapy to restore motion and function. Therapeutic exercise to improve strength and flexibility. Neuromuscular re-education for posture and balance. Therapeutic activities to return to functional activities of daily living. Electronically signed by: Bianka Dawson, PT, DPT Please sign and return to therapist. Thank you for your referral.
--- NOTE | 2024-12-20 15:36 | MHC.PT.DC ---
[facility] Office [place] Office [place] Office [address] Eileen Hernandez [address] [phone] F: [phone] F: [phone] F: [phone] F: [phone] Physical Therapy Discharge Report Diagnosis: severe osteoarthritis of LEFT shoulder/GHJ (RS) Date of Surgery: Date of Evaluation: 09/13/24 Date of Discharge: 12/20/24 Treatments to Date: 4 Cancellations to Date: 0 No Shows to Date: 2 Discharge Status: Independent with HEP Patient Elected to Stop Visit Non-compliance Discharge Summary: Ross Navarrete was last seen in PT on 11/06/24, the assessment on that date reads, Pt DEMONSTRATED SIGNIFICANT IMPROVEMENT W/AROM IN SUPINE FLEXION AND INDEPENDENT W/HEP W/LT BANDS. He ceased attending PT on his own accord and is therefore discharged from PT. Electronically signed by: Bianka Dawson, PT, DPT Please sign and return to therapist. Thank you for your referral.
== END 2024-12-20 15:36 | disposition home or self-care (01) ==
LOC: HO.PT 09:29
PROVIDERS: PCP Nurse Practitioner Primary Care; Visit Provider Physician Assistant
DX: M19.012 Primary osteoarthritis, left shoulder (principal); M25.312 Other instability, left shoulder
CPT/HCPCS: 97014; 97110; 97140; 97162; 97530

== ENCOUNTER 2024-12-12 13:44 | Outpatient (REF) | payer MEDICAID, SELFPAY ==
--- OUTSIDE RECORDS SUMMARY | 2024-12-12 14:27 | XMS_ITS | Clinical Summary ---
Author Organization [facility] Address [address] [place] [address] Care Team Providers Care Housekeeping Room Attendant Name Role Phone Unavailable Primary Care Provider Unavailabl e Source Comments PLEASE NOTE, if this patient is a minor, it may be UNLAWFUL to discuss sensitive information that is contained in these records (such as FAMILY PLANNING, MENTAL HEALTH or SUBSTANCE ABUSE) with the minor patient's parent or other person without the patient's specific authorization.TRICIAIN Active Problems Problem Noted Date Diagnosed Date Severe episode of recurrent major depressive disorder, with psychotic features ([facility] 06/10/2024 Assessment & Plan (06/18/2024 11:18 AM EST): Patient refused to be seen, [place] steaming machine operator was notified. Assessment & Plan (06/10/2024 [...] connected on video call until arrival of [place] Police with recommendation to section patient to [...] - 19 + 3-dose series) 11/14/2023 10/17/2023 [id number] (2023- season) 01/28/202412/29/2 021, 12/10/2020 Alcohol and Drug Screen 05/29/2024 Imm-Influenza (#1) 2025 02/27/2012, 01/27/2011 Diabetes Screening 10/08/2025 10/08/2024, 0 09/12/2024, 05/16/2024, Additional history exists Lipid Screening 04/24/2029 04/24/2024, 05/29, 02/27/2020 Imm-DTaP/Tdap/Td (3 - Td or Tdap) 10/16/2033 024, 03/15/2011 Hepatitis C Screening Completed 10/11/2023 HIV Screening Completed 12/13/2023, 11/26, 12/16/2021 Insurance [facility] [place] MEDICA[place]
--- OUTSIDE RECORDS SUMMARY | 2024-12-12 14:27 | XMS_ITS | Clinical Summary ---
Author Organization [address] [facility] Address [address] [place] [address] Phone Care Team Providers Care Teaching Pastor Name Role Phone Naheed Zaman NP Primary Care Provider [phone] Allergies Active Allergy Reactions Criticality Noted Date [...] obesity with BMI of 6 0.0-69.9, adult ([facility] V24, [facility] V28) 04/17/2024 Acquired pes planus 05/11/2017 Pure hypercholesterolemia 05/10/2017 Pulmonary hypertension ([facility] V24, [facility] V28 ) 05/10/2017 Overview (04/17/2024): [...] (diabetes mellitus), type 2 with renal complications ([facility] V24, [facility] V28) 04/30/2017 Spondylosis of lumbar region without myelopathy or radiculopathy 04/26/2017 Overview (04/17/2024): Saw [facility] Rheumatology BETSY (obstructive sleep apnea) 04/26/2017 Overview (04/17/2024): Polysomnography 08/05/2009, [facility] :On cpap 14 cm H2O 10/23/2017 Home Sleep Study insufficient data. 08/2018 - Pulm ordered split night study. Diabetes mellitus type 2 wit h neurological manifestations ([facility] V24, [facility] V28) 04/26/2017 CTS (carpal tunnel [...] (diabetes mellitus), type 2 with renal complications ([facility] V24, [facility] V28) 04/30/2017 DX:DM (diabetes mellitus), t ype 2 with renal complications (HCC) Proteinuria 04/30/2017 DX:Proteinuria Diabetes mellitus type 2 wit h neurological manifestations ([facility] V24, [facility] V28) 04/26/2017 DX:Diabetes mellitus type 2 with neurological manifestations (HCC) Asthma 05/10/2017 DX:Asthma Elevated liver enzymes 05/10/2017 DX:Elevat ed liver enzymes; COMMENT: fatty liver Gout 05/10/2017 DX:Gout H. pylori infection 05/10/2017 DX:H. 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 DX:History of acute post-streptococcal glomerulonephritis; COMMENT: Hospitalized [facility] with anasarca/ KUNAL 2010, streptolysin titer 1060, kidney bx, Followed in past by Dr Zapata, NSAIDS not recommended HTN (hypertension) 05/10/2017 DX:HTN (hyper tension) Morbid obesity with BMI of 6 0.0-69.9, adult ([facility] V24, [facility] V28) 04/26/2017 DX:Morbid obesity wit h BMI of 60.0-69.9, adult ([facility]) BETSY (obstructive sleep apnea) 04/26/2017 DX :BETSY (obstructive sleep apnea); COMMENT: Polysomnography 08/05/2009, [facility] :On cpap 14 cm H2O Pulmonary hypertension ([facility] V24, [facility] V28) 05/10/2017 DX:Pulmonary hypertension (H CC); COMMENT: Mild, ECHO 10/21/10 [facility], EF 65-70% Otherwise normal altho suboptimal views, [...] egion without myelopathy or radiculopathy; COMMENT: Saw [facility] Rheumatology Family History Medical History Relation Name [...] 5 Years) and At-Risk Patients (6 to 49 Years) (1 of 2 - PCV) 2000 Social Influencers of Health Screening 05/01/2022 Diabetes: Annual Urine Albumin-Creatinine Ratio (uACR) 06/30/2023 02/27/2020 Hepatitis B Vaccines (2 of 3 - 19+ 3-dose series) 11/14/2023 10/17/2023 COVID-19 Vaccine (2023-2 5 season) 2024 12/29/2020, 12/10/2020 Depression Screening 05/29/2024 Diabetes: Blood Sugar Contro l Test (HGBA1C) 10/22/2024 04/24/2024, 02/27/2020 Influenza Vaccine (#1) 2025 2, 01/27/2011 Diabetes: Annual GFR (Glomerular Filtration Rate) [...] * Urine Albumin Creatinine Ratio (02/27/2020) Pathologist [facility] Urine Albumin Creatinine Ratio Abstracted [facility] Provider HEALTH MAINTENANCE Final Result * Annual BMP Blood Test (02/27/2020) Pathologist [facility] Annual BMP Blood Test Abstracted Result [facility] Provider HEALTH MAINTENANCE Final Result * (ABNORMAL) Hemoglobin A1c (02/27/2020) [facility] Hemoglobin A1C 6.9(A) <=6.5 % Blood Venous blood specimen / Unknown Result [facility] Provider LAB BLOOD ORDERABLES Brunilda l Result * Lipid panel (02/27/2020) [facility] LDL/HDL Ratio 3 0 - 4 Triglycerides 91 0 - 150 mg/dL Cholesterol 145 0 - 200 mg/dL HDL 58 >=40 mg/dL LDL Cholesterol 69 0 - 100 mg/dL Blood Venous blood specimen / Unknown Result [facility] Provider LAB BLOOD ORDERABLES Brunilda l Result * Hepatitis C Screening (06/22/2017) Pathologist [facility] Hepatitis C Screening Abstracted us Historical Provider HEALTH MAINTENANCE Final Result from Last 3 Months or Most Recently Relevant to Health Maintenance Insurance MEDICAID - [place] Care Teams Teaching Pastor Relationship Specialty Start Date End Date Naheed Zaman NP [address] [place] [phone] PCP - General 02/21/24
--- OUTSIDE RECORDS SUMMARY | 2024-12-12 14:27 | XMS_ITS | Encounter Summary ---
Author Organization [employer] Address [address] [facility] [address] 7[address] [place] [address] Care Team Providers Care Trade Economist Name Role Phone Naheed Zaman Primary Care Provider [phone] Real Gomez MD Unavailable Reason for Visit * Reason Comments Med Refill Encounter Details Date Type Department Care Team (Late st Contact Info) Description 08/18/2023 Refill [facility] [address] [place] [address] Naheed Zaman ANP [address] [place] [address] Chronic low back pain without sciatica, unspecified [...] Care Team (Late st Contact Info) Description 12/12/2024 3:00 PM EDT Office Visit [facility] [address] [place] [address] Rut Branham MD [address] [place] [phone] Opioid type dependence, continuous (CMS/HCC) (Primary Dx) 01/09/2025 10:30 AM EDT Office Visit [address] [address] Naheed Zaman ANP [address] [place] [address] 02/06/2025 2:00 PM EDT Office Visit [address] [address] Rut Brnaham MD [address] [place] [address] documented as of this encounter Visit Diagnoses Diagnosis Chronic low back pain without sciatica, unspecified back pain laterality Opioid type dependence, continuous (CMS/HCC)- Primary Opioid type dependence, continuous documented in this encounter Additional Health Concerns Assessment Noted Time PHQ-9 Depression Total Score: 6 11/19/19 23 3:29 PM EDT documented as of this encounter Care Teams Trade Economist Relationship Specialty Start Date End Date Naheed Zaman ANP [address] [place] [address] PCP - General Family Medicine 01/18/22 Real Gomez MD [address] [place] [address] 3rd [place] [address] Cardiology 10/01/24 documented as of this encounter
[2024-12-12 16:41] LABS: Alanine Aminotransferase 22 U/L (0-40); Albumin Level 4.2 g/dL (3.5-5.0); Alkaline Phosphatase 69 U/L (39-117); Aspartate Amino Transferase 31 U/L (5-37); Total Protein 7.8 g/dL (6.5-8.0)
[2024-12-13 04:03] LABS: HBS Num1 1.21 mIU/mL (0-7.99); HBc Num1 0.08 S/CO (0.00-0.79); HBsAGNum1 0.43 S/CO (0.00-0.99); Hepatitis B Surface Antigen Negative (Negative); ~HepC Num1 0.09 S/CO (0.00-0.79); ~Hepatitis B Surface Antibody NONREACTIVE (Nonreactive); ~Hepatitis C Antibody Nonreactive (Nonreactive)
[2024-12-13 04:05] LABS: ~Hepatitis A Antibody IgG 0.37 S/CO (0.00-0.99)
== END 2024-12-12 13:45 | disposition home or self-care (01) ==
LOC: HO.HHCL 13:44
PROVIDERS: PCP Nurse Practitioner Primary Care; Visit Provider Family Medicine
DX: E51.9 Thiamine deficiency, unspecified (principal); I10 Essential (primary) hypertension; E11.29 Type 2 diabetes mellitus with other diabetic kidney complication; R70.0 Elevated erythrocyte sedimentation rate; R80.9 Proteinuria, unspecified; F11.20 Opioid dependence, uncomplicated; E78.5 Hyperlipidemia, unspecified; M25.50 Pain in unspecified joint
CPT/HCPCS: 36415; 80076; 86704; 86706; 86708; 86803; 87340

== ENCOUNTER 2024-12-19 09:47 | Outpatient (AMB) | payer MEDICAID, SELFPAY ==
--- NOTE | 2024-12-19 10:12 | A.OFFVIS_ITS ---
Vital Signs 12/19/24 10:13 Weight 390 lb BP 134/72 Blood Pressure Location Lt brachial Position Sitting Respiration 18 Pulse 95 Pulse Source Pulse Oximeter Pulse Oximetry (%) 97 Oxygen Delivery Method Room Air Intake Visit Reasons: FU shoulder pain Sales Management Trainee Required: Yes Sales Management Trainee Name: [id number] Allergies seafood Allergy (Severe, Verified 12/19/24 10:12) Swelling HPI Comments Details: Mr. Navarrete is back in my office again with complains on pain in the left shoulder. In the past in this office he received left intra-articular shoulder injection. Initially this injection helped him in significant extent. However 2nd injection demonstrated no pain improvement. He reports unbearable pain in his left shoulder. I will schedule him for left diagnostic suprascapular nerve block in the attempt to localize and alleviate the pain in the left shoulder. If this will improve his pain in his shoulder I will consider sprint PNS in left suprascapular nerve positioned. Last time I missed understood the patient, I thought he is going for a shoulder surgery, however he referred to appointment with the surgeon, he have seen nurse practitioner in orthopedic surgery office and he was recommended physical therapy for his shoulder. Prior:? complaining on the pain in the left shoulder.? He reports that this pain was bothering him for many years but it was mild.? Two months ago the pain became severe.? He went for Orthopedic surgery office and Was recommended to have intra-articular shoulder steroid injection.? On the x-ray it was become demonstrating a loose body inside of his shoulder joint.? The dictation of the x-rays as below.? 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 For pain control he is taking meloxicam.? He never was a subject of physical therapy.? He had x-ray as dictated below [facility] Medical History Seronegative spondyloarthropathy Vitamin D deficiency Elevated C-reactive protein (CRP) Fibromyalgia Polyarthralgia Narcotic dependence Thrombocytopenia Carpal tunnel syndrome Sleep apnea Pre-op evaluation Hx of migraines BETSY on CPAP Pre-op evaluation HTN (hypertension), benign Insulin dependent type 1 diabetes mellitus Morbid obesity Shoulder dislocation Diabetes Surgical History Hx of colonoscopy History of esophagogastroduodenoscopy (EGD) Hx of hernia repair Hx of appendectomy Family History Mother No problems noted. Brother No problems noted. Daughter No problems noted. Daughter No problems noted. Daughter No problems noted. Son No problems noted. Son No problems noted. 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 Review of Systems Const All systems reviewed & are unremarkable except as noted in HPI and below ENT Reports Normal hearing present Neuro Reports Normal hearing present and Denies confusion Psych Denies confusion Physical Exam Vital Signs: Last Vital Signs Pulse 95 12/19/24 10:13 Resp 18 12/19/24 10:13 BP 134/72 12/19/24 10:13 Pulse Ox 97 12/19/24 10:13 Oxygen Delivery Method Room Air 12/19/24 10:13 Const General: No confusion Orientation/consciousness: No confusion HEENT Head: Yes normal to inspection, Yes normocephalic and Yes atraumatic Eyes General: appearance normal, both eyes and all related structures Resp Effort & Inspection: normal respiratory effort and able to speak in complete sentences Cardio Rate: regular rate Peripheral pulses: Peripheral pulses 2+ throughout GI Palpation (GI): Soft to palpation Skin Lesions: no lesions Rashes: no rashes Neuro General: No confusion Cranial nerves: Yes Normal hearing present Extrem Other: Left shoulder: Able to forward flexion to 25 degrees. Abduction to 25 degrees. External to neutral with little motion. Unable to do any further testing due to pain and limited ROM. Assessment & Plan Assessment & Plan (1) Osteoarthritis of left shoulder: Code(s): M19.012 - Primary osteoarthritis, left shoulder Category: Medical Plan: (2) Morbid obesity: Code(s): E66.01 - Morbid (severe) obesity due to excess calories Category: Medical (3) Left shoulder pain: Code(s): M25.512 - Pain in left shoulder Category: Medical Plan The 3rd intra-articular shoulder injection was not as effective as the 1st 2 injections in the left shoulder joint. He never was examined by Orthopedic surgeon office for his left shoulder pain. He went for the consult with orthopedic surgery which recommended physical therapy for this patient. He reports today that he is unable to perform physical therapy because of severe pain. I offered the patient left diagnostic suprascapular nerve block. If this will alleviate the pain I will consider sprint PNS at left suprascapular positioned to treat the pain of this patient. Patient Instructions: I here by testify that I spent 30 minutes in conversation with this patient as well as planning his care and organizing this note. interpreter and translator from Rajwinder [id number] was very helpful to maintain this conversation in Salvadorean. Coding Level of Care Code Est Pt Level 4 (64993) Diagnoses Osteoarthritis of left shoulder M19.012 Morbid obesity E66.01 Left shoulder pain M25.512
[2024-12-19 10:13] VITALS: BP 134/72; PULSE 95; RESP 18; O2SAT 97
--- OUTSIDE RECORDS SUMMARY | 2024-12-19 10:27 | XMS_ITS | Clinical Summary ---
Author Organization [facility] Address [address] [place] [address] Care Team Providers Care Hat And Cap Sewer Name Role Phone Unavailable Primary Care Provider [...] recurrent major depressive disorder, with psychotic features ([facility]) 06/10/2024 Assessment & Plan (06/18/2024 11:18 AM EST): Patient refused to be seen, [place] prepared foods team leader was notified. Assessment & Plan [...] connected on video call until arrival of [place] Police with recommendation to section patient to [...] - 19 + 3-dose series) 11/14/2023 10/17/2023 [id number] (2023- season) 01/28/202412/29/2 021, 12/10/2020 Alcohol and Drug Screen 05/29/2024 Imm-Influenza (#1) 2025 02/27/2012, 01/27/2011 Diabetes Screening 10/08/2025 10/08/2024, 0 09/12/2024, 05/16/2024, Additional history exists Lipid Screening 04/24/2029 04/24/2024, 05/29, 02/27/2020 Imm-DTaP/Tdap/Td (3 - Td or Tdap) 10/16/2033 024, 03/15/2011 Hepatitis C Screening Completed 10/11/2023 HIV Screening Completed 12/13/2023, 11/26, 12/16/2021 Insurance [facility] [place] MEDICAID
--- OUTSIDE RECORDS SUMMARY | 2024-12-19 10:27 | XMS_ITS | Clinical Summary ---
Author Organization [address] [facility] Address [address] [place] [address] Phone Care Team Providers Care Pharmaceutical Development Technician Name Role Phone Naheed Zaman NP Primary Care Provider [phone] Allergies Active Allergy Reactions Criticality Noted Date [...] obesity with BMI of 6 0.0-69.9, adult ([facility] V24, [facility] V28) 04/17/2024 Acquired pes planus 05/11/2017 Pure hypercholesterolemia 05/10/2017 Pulmonary hypertension ([facility] V24, [facility] V28 ) 05/10/2017 Overview (04/17/2024): [...] (diabetes mellitus), type 2 with renal complications ([facility] V24, [facility] V28) 04/30/2017 Spondylosis of lumbar region without myelopathy or radiculopathy 04/26/2017 Overview (04/17/2024): Saw [facility] Rheumatology BETSY (obstructive sleep apnea) 04/26/2017 Overview (04/17/2024): Polysomnography 08/05/2009, [facility] :On cpap 14 cm H2O 10/23/2017 Home Sleep Study insufficient data. 08/2018 - Pulm ordered split night study. Diabetes mellitus type 2 wit h neurological manifestations ([facility] V24, [facility] V28) 04/26/2017 CTS (carpal tunnel [...] (diabetes mellitus), type 2 with renal complications ([facility] V24, [facility] V28) 04/30/2017 DX:DM (diabetes mellitus), t ype 2 with renal complications (HCC) Proteinuria 04/30/2017 DX:Proteinuria Diabetes mellitus type 2 wit h neurological manifestations ([facility] V24, [facility] V28) 04/26/2017 DX:Diabetes mellitus type 2 with neurological manifestations (HCC) Asthma 05/10/2017 DX:Asthma Elevated liver enzymes 05/10/2017 DX:Elevat ed liver enzymes; COMMENT: fatty liver Gout 05/10/2017 DX:Gout H. pylori infection 05/10/2017 DX:H. 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 DX:History of acute post-streptococcal glomerulonephritis; COMMENT: Hospitalized [facility] with anasarca/ KUNAL 2010, streptolysin titer 1060, kidney bx, Followed in past by Dr Zapata, NSAIDS not recommended HTN (hypertension) 05/10/2017 DX:HTN (hyper tension) Morbid obesity with BMI of 6 0.0-69.9, adult ([facility] V24, [facility] V28) 04/26/2017 DX:Morbid obesity wit h BMI of 60.0-69.9, adult ([facility]) BETSY (obstructive sleep apnea) 04/26/2017 DX :BETSY (obstructive sleep apnea); COMMENT: Polysomnography 08/05/2009, [facility] :On cpap 14 cm H2O Pulmonary hypertension ([facility] V24, [facility] V28) 05/10/2017 DX:Pulmonary hypertension (H CC); COMMENT: Mild, ECHO 10/21/10 [facility], EF 65-70% Otherwise normal altho suboptimal views, [...] egion without myelopathy or radiculopathy; COMMENT: Saw [facility] Rheumatology Family History Medical History Relation Name [...] Albumin Creatinine Ratio (02/27/2020) Pathologist [facility] Urine Albumin Creatinine Ratio Abstracted [facility] Provider HEALTH MAINTENANCE Final Result * Annual BMP Blood Test (02/27/2020) Pathologist [facility] Annual BMP Blood Test Abstracted Result [facility] Provider HEALTH MAINTENANCE Final Result * (ABNORMAL) Hemoglobin A1c (02/27/2020) [facility] Hemoglobin A1C 6.9(A) <=6.5 % Blood Venous blood specimen / Unknown Result [facility] Provider LAB BLOOD ORDERABLES Brunilda l Result * Lipid panel (02/27/2020) [facility] LDL/HDL Ratio 3 0 - 4 Triglycerides 91 0 - 150 mg/dL Cholesterol 145 0 - 200 mg/dL HDL 58 >=40 mg/dL LDL Cholesterol 69 0 - 100 mg/dL Blood Venous blood specimen / Unknown Result [facility] Provider LAB BLOOD ORDERABLES Brunilda l Result * Hepatitis C Screening (06/22/2017) Pathologist [facility] Hepatitis C Screening Abstracted us Historical Provider HEALTH MAINTENANCE Final Result from Last 3 Months or Most Recently Relevant to Health Maintenance Insurance MEDICAID - [place] Care Teams Pharmaceutical Development Technician Relationship Specialty Start Date End Date Naheed Zaman NP [address] [place] [phone] PCP - General 02/21/24
--- OUTSIDE RECORDS SUMMARY | 2024-12-19 10:27 | XMS_ITS ---
Author Name [facility] Organization Unknown Care Team Organization Name Specialty Phone Email Start Date End Da salvador [facility] Termed, PROVIDER Primary Care 04/05/202212/27
== END 2024-12-19 10:38 | disposition home or self-care (01) ==
LOC: HO.PMC 09:48
PROVIDERS: PCP Nurse Practitioner Primary Care; Visit Provider Anesthesiology
DX: M19.012 Primary osteoarthritis, left shoulder (principal); E66.01 Morbid (severe) obesity due to excess calories; M25.512 Pain in left shoulder
CPT/HCPCS: 99214

== ENCOUNTER → 2024-12-19 09:47 | Outpatient (BNVA) | payer MEDICAID, SELFPAY | PROVIDERS: PCP Nurse Practitioner Primary Care; Visit Provider Anesthesiology | DX: M19.012 Primary osteoarthritis, left shoulder (principal); M25.512 Pain in left shoulder; E66.01 Morbid (severe) obesity due to excess calories | CPT/HCPCS: 99212 ==

== ENCOUNTER 2025-01-03 12:12 | Outpatient (REF) | payer MEDICAID, SELFPAY ==
--- OUTSIDE RECORDS SUMMARY | 2025-01-03 12:16 | XMS_ITS | Clinical Summary ---
Author Organization [facility] Address [address] [place] [address] Care Team Providers Care Sofa Inspector Name Role Phone Unavailable Primary Care Provider [...] recurrent major depressive disorder, with psychotic features ([facility]) 06/10/2024 Assessment & Plan (06/18/2024 11:18 AM EST): Patient refused to be seen, [place] team leader was notified. Assessment & Plan [...] connected on video call until arrival of [place] Police with recommendation to section patient to [...] - 19 + 3-dose series) 11/14/2023 10/17/2023 [id number] (2023- season) 01/28/202412/29/2 021, 12/10/2020 Alcohol and Drug Screen 05/29/2024 Imm-Influenza (#1) 2025 02/27/2012, 01/27/2011 Diabetes Screening 10/08/2025 10/08/2024, 0 09/12/2024, 05/16/2024, Additional history exists Lipid Screening 04/24/2029 04/24/2024, 05/29, 02/27/2020 Imm-DTaP/Tdap/Td (3 - Td or Tdap) 10/16/2033 024, 03/15/2011 Hepatitis C Screening Completed 10/11/2023 HIV Screening Completed 12/13/2023, 11/26, 12/16/2021 Insurance [facility] [place] MEDICAID
--- OUTSIDE RECORDS SUMMARY | 2025-01-03 12:16 | XMS_ITS | Clinical Summary ---
Author Organization [facility] Address [address] [place] [address] Phone Care Team Providers Care Used Car Lot Porter Name Role Phone Naheed Zaman NP Primary Care Provider [phone] Allergies Active Allergy Reactions Criticality Noted Date [...] 6 0.0-69.9, adult ([facility] V24, [facility] V28) 04/17/2024 Acquired pes planus 05/11/2017 Pure hypercholesterolemia 05/10/2017 Pulmonary hypertension ([facility] V24, [facility] V28 ) 05/10/2017 [...] with renal complications ([facility] V24, [facility] V28) 04/30/2017 Spondylosis of lumbar region without myelopathy or radiculopathy 04/26/2017 Overview (04/17/2024): Saw [facility] Rheumatology BETSY (obstructive sleep apnea) 04/26/2017 Overview (04/17/2024): Polysomnography 08/05/2009, [facility] :On cpap 14 cm H2O 10/23/2017 Home Sleep Study insufficient data. 08/2018 - Pulm ordered split night study. Diabetes mellitus type 2 wit h neurological manifestations ([facility] V24, [facility] V28) 04/26/2017 CTS [...] with renal complications ([facility] V24, [facility] V28) 04/30/2017 DX:DM (diabetes mellitus), t ype 2 with renal complications (HCC) Proteinuria 04/30/2017 DX:Proteinuria Diabetes mellitus type 2 wit h neurological manifestations ([facility] V24, [facility] V28) 04/26/2017 DX:Diabetes mellitus type 2 with neurological manifestations (HCC) Asthma 05/10/2017 DX:Asthma Elevated liver enzymes 05/10/2017 DX:Elevat ed liver enzymes; COMMENT: fatty liver Gout 05/10/2017 DX:Gout H. pylori infection 05/10/2017 DX:H. 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 DX:History of acute post-streptococcal glomerulonephritis; COMMENT: Hospitalized [facility] with anasarca/ KUNAL 2010, streptolysin titer 1060, kidney bx, Followed in past by Dr Zapata, NSAIDS not recommended HTN (hypertension) 05/10/2017 DX:HTN (hyper tension) Morbid obesity with BMI of 6 0.0-69.9, adult ([facility] V24, [facility] V28) 04/26/2017 DX:Morbid obesity wit h BMI of 60.0-69.9, adult ([facility]) BETSY (obstructive sleep apnea) 04/26/2017 DX :BETSY (obstructive sleep apnea); COMMENT: Polysomnography 08/05/2009, [facility] :On cpap 14 cm H2O Pulmonary hypertension ([facility] V24, [facility] V28) 05/10/2017 DX:Pulmonary hypertension (H CC); COMMENT: Mild, ECHO 10/21/10 [facility], EF 65-70% [...] egion without myelopathy or radiculopathy; COMMENT: Saw [facility] Rheumatology Family [...] * Urine Albumin Creatinine Ratio (02/27/2020) Pathologist [facility] Urine Albumin Creatinine Ratio Abstracted [facility] Provider HEALTH MAINTENANCE Final Result * Annual BMP Blood Test (02/27/2020) Pathologist [facility] Annual BMP Blood Test Abstracted Result [facility] Provider HEALTH MAINTENANCE Final Result * (ABNORMAL) Hemoglobin A1c (02/27/2020) [facility] Hemoglobin A1C 6.9(A) <=6.5 % Blood Venous blood specimen / Unknown Result [facility] Provider LAB BLOOD ORDERABLES Brunilda l Result * Lipid panel (02/27/2020) [facility] LDL/HDL Ratio 3 0 - 4 Triglycerides 91 0 - 150 mg/dL Cholesterol 145 0 - 200 mg/dL HDL 58 >=40 mg/dL LDL Cholesterol 69 0 - 100 mg/dL Blood Venous blood specimen / Unknown Result [facility] Provider LAB BLOOD ORDERABLES Brunilda l Result * Hepatitis C Screening (06/22/2017) Pathologist [facility] Hepatitis C Screening Abstracted us Historical Provider HEALTH MAINTENANCE Final Result from Last 3 Months or Most Recently Relevant to Health Maintenance Insurance [place]ICAID - [place] Care Teams Used Car Lot [employer] Relationship Specialty Start Date End Date Naheed Zaman NP [address] [place] [phone] PCP - General 02/21/24
--- OUTSIDE RECORDS SUMMARY | 2025-01-03 12:16 | XMS_ITS | Encounter Summary ---
Author Organization [employer] Address [address] [place] [address] Care Team Providers Care Sales And Service Advisor Name Role Phone Naheed Zaman Primary Care Provider [phone] Real Gomez MD Unavailable Reason for Visit * Reason Comments Med Refill Encounter Details Date Type Department Care Team (Late st Contact Info) Description 08/18/2023 Refill [facility] [address] [place] [address] Naheed Zaman ANP [address] [place] [address] Chronic low back pain without sciatica, unspecified [...] Care Team (Late st Contact Info) Description 01/09/2025 10:30 AM EDT Office Visit [facility] [address] [place] [phone] Naheed Zaman ANP [address] [place] [phone] 02/06/2025 2:00 PM EDT Office Visit [facility] [address] [place] [phone] Rut Branham MD [address] [place] [phone] documented as of this encounter Visit Diagnoses Diagnosis Chronic low back pain without sciatica, unspecified back pain laterality documented in this encounter Additional Health Concerns Assessment Noted Time PHQ-9 Depression Total Score: 6 11/19/19 23 3:29 PM EDT documented as of this encounter Care Teams Sales And Service Advisor Relationship Specialty Start Date End Date Naheed Zaman ANP [address] [place] [phone] PCP - General Family Medicine 01/18/22 Real Gomez MD [address] [place] [address] [address] [place] [address] Cardiology 10/01/24 documented as of this encounter
--- NOTE | 2025-01-03 12:42 | PFT_ITS ---
Flows: FEV1: 76 % of predicted at 2.65 L FVC: 72 % of predicted at 3.11 L FEV1/FVC: 85 % Bronchodilator response: Present in small to medium airways only Volumes: Total lung capacity: 80 % of predicted at 4.85 L Residual volume: 123 % of predicted at 1.74 L Slow vital capacity: 67 % of predicted at 3.11 L Expiratory reserve volume: 26 % of predicted at 0.31 L Diffusion capacity: Normal Impression: No obstructive or restrictive ventilatory defect. Bronchodilator response is present in small to medium airways only. Increased residual volume suggests air trapping. Decreased expiratory reserve volume suggests extrathoracic restriction likely secondary to abdominal obesity. MTDD
[2025-01-03 13:30] VITALS: PULSE 73; O2SAT 100
== END 2025-01-03 12:13 | disposition home or self-care (01) ==
LOC: HO.RESP 12:12
PROVIDERS: PCP Nurse Practitioner Primary Care
DX: R06.02 Shortness of breath (principal)
CPT/HCPCS: 94010; 94640; 94727; 94729

== ENCOUNTER → 2025-01-03 12:42 | Outpatient (BNV) | payer MEDICAID, SELFPAY | PROVIDERS: PCP Nurse Practitioner Primary Care; Visit Provider Internal Medicine Pulmonary Disease | DX: R06.00 Dyspnea, unspecified (principal) | CPT/HCPCS: 94060; 94727; 94729 ==

== ENCOUNTER 2025-01-09 13:12 | Outpatient (REF) | payer MEDICAID, SELFPAY ==
--- NOTE | ~2025-01-09 | US_ITS ---
CLINICAL HISTORY: ?urinary retention US Urinary Bladder Comparison: None Findings: The urinary bladder is unremarkable. Prevoid volume: 250 mL Ureteral jets are not visualized bilaterally. IMPRESSION: Normal urinary bladder This document has been electronically signed by: Ranjan Montiel MD on 01/10/2025 09:48:52
--- OUTSIDE RECORDS SUMMARY | 2025-01-09 14:06 | XMS_ITS | Clinical Summary ---
Author Organization [facility] Address [facility] [address] [place] [address] Phone Care Team Providers Care Dining Room Coordinator Name Role Phone ZamanNaheed Primary Care Provider [phone] Social History Tobacco Use Types Packs/Day Years Used Date Smoking Tobacco: Never Assessed Education Answer Date Recorded Are you interested in more education? Not on elvin e 01/02/2025 Are you concerned about learning? Not on file 01/02/2025 No 01/02/2025 No 01/02/2025 Digital Access Answer Date Recorded No 01/02/2025 No 01/02/2025 Reliable internet access at home? Not on file 01/02/2025 Device with a working camera? Not on file Sex and Gender Information Value Date Recorded Sex Assigned at Not on file Legal Sex Male 10:46 AM EDT Gender Identity Not on file Sexual Orientation Not on file Plan of Treatment Upcoming Encounters Date Type Department Care Team (Late st Contact Info) Description 02/05/2025 3:00 PM EDT Office Visit [facility] Medical Weight Management [address] [address] Sri Andrade MD [address] [address] [email or web address] Health Maintenance Due Date Last Done Comments Adult Td,Tdap Booster 1981 LIPID PANEL 1981 DEPRESSION SCREENING 1993 SMOKING Hx and SMOKELESS TOB ACCO SCREENING 1994 HEPATITIS C SCREENING 11/14/1999 HIV ONE-TIME SCREENING (18-6 5 YEARS) 11/14/1999 COVID-19 VACCINE ( - 2023-2 5 season) 2024 HEPATITIS A VACCINES Aged Out No long er eligible based on patient's age to complete this topic HIB VACCINES Aged Out No longer eligi ble based on patient's age to complete this topic MENINGOCOCCAL VACCINES (ACWY) Aged Out No longer eligible based on patient's age to complete this topic MENINGOCOCCAL VACCINES (B) Aged Out N o longer eligible based on patient's age to complete this topic PNEUMOCOCCAL VACCINES (0-49 years) Aged Out No longer eligible based on patient's age to complete this topic Medical Devices Not on file Insurance [facility] C3 ACO [facility] C3 ACO Care Teams Dining Room Coordinator Relationship Specialty Start Date End Date Naheed Zaman ANP [address] [place] [id number] PCP - General Nurse Practitioner 01/02/25 Additional Source Comments The information contained in this document represents components of the legal health record. It is not the complete legal health record.[facility]
--- OUTSIDE RECORDS SUMMARY | 2025-01-09 14:06 | XMS_ITS | Clinical Summary ---
Author Organization [facility] Address [address] [place] [address] Phone Care Team Providers Care Pharmacy Teacher Name Role Phone Naheed Zaman NP Primary Care Provider [phone] Allergies Active Allergy Reactions Criticality Noted Date [...] obesity with BMI of 6 0.0-69.9, adult ([facility] V24, [facility] V28) 04/17/2024 Acquired pes planus 05/11/2017 Pure hypercholesterolemia 05/10/2017 Pulmonary hypertension ([facility] V24, [facility] V28 ) 05/10/2017 Overview (04/17/2024): [...] (diabetes mellitus), type 2 with renal complications ([facility] V24, [facility] V28) 04/30/2017 Spondylosis of lumbar region without myelopathy or radiculopathy 04/26/2017 Overview (04/17/2024): Saw [facility] Rheumatology BETSY (obstructive sleep apnea) 04/26/2017 Overview (04/17/2024): Polysomnography 08/05/2009, [facility] :On cpap 14 cm H2O 10/23/2017 Home Sleep Study insufficient data. 08/2018 - Pulm ordered split night study. Diabetes mellitus type 2 wit h neurological manifestations ([facility] V24, [facility] V28) 04/26/2017 CTS (carpal tunnel [...] (diabetes mellitus), type 2 with renal complications ([facility] V24, [facility] V28) 04/30/2017 DX:DM (diabetes mellitus), t ype 2 with renal complications (HCC) Proteinuria 04/30/2017 DX:Proteinuria Diabetes mellitus type 2 wit h neurological manifestations ([facility] V24, [facility] V28) 04/26/2017 DX:Diabetes mellitus type 2 with neurological manifestations (HCC) Asthma 05/10/2017 DX:Asthma Elevated liver enzymes 05/10/2017 DX:Elevat ed liver enzymes; COMMENT: fatty liver Gout 05/10/2017 DX:Gout H. pylori infection 05/10/2017 DX:H. 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 DX:History of acute post-streptococcal glomerulonephritis; COMMENT: Hospitalized [facility] with anasarca/ KUNAL 2010, streptolysin titer 1060, kidney bx, Followed in past by Dr Zapata, NSAIDS not recommended HTN (hypertension) 05/10/2017 DX:HTN (hyper tension) Morbid obesity with BMI of 6 0.0-69.9, adult ([facility] V24, [facility] V28) 04/26/2017 DX:Morbid obesity wit h BMI of 60.0-69.9, adult ([facility]) BETSY (obstructive sleep apnea) 04/26/2017 DX :BETSY (obstructive sleep apnea); COMMENT: Polysomnography 08/05/2009, [facility] :On cpap 14 cm H2O Pulmonary hypertension ([facility] V24, [facility] V28) 05/10/2017 DX:Pulmonary hypertension (H CC); COMMENT: Mild, ECHO 10/21/10 [facility], EF 65-70% Otherwise normal [...] egion without myelopathy or radiculopathy; COMMENT: Saw [facility] Rheumatology Family History Medical [...] Urine Albumin Creatinine Ratio (02/27/2020) Pathologist [facility] Urine Albumin Creatinine Ratio Abstracted [facility] Provider HEALTH MAINTENANCE Final Result * Annual BMP Blood Test (02/27/2020) Pathologist [facility] Annual BMP Blood Test Abstracted Result [facility] Provider HEALTH MAINTENANCE Final Result * (ABNORMAL) Hemoglobin A1c (02/27/2020) [facility] Hemoglobin A1C 6.9(A) <=6.5 % Blood Venous blood specimen / Unknown Result [facility] Provider LAB BLOOD ORDERABLES Brunilda l Result * Lipid panel (02/27/2020) [facility] LDL/HDL Ratio 3 0 - 4 Triglycerides 91 0 - 150 mg/dL Cholesterol 145 0 - 200 mg/dL HDL 58 >=40 mg/dL LDL Cholesterol 69 0 - 100 mg/dL Blood Venous blood specimen / Unknown Result [facility] Provider LAB BLOOD ORDERABLES Brunilda l Result * Hepatitis C Screening (06/22/2017) Pathologist [facility] Hepatitis C Screening Abstracted us Historical Provider HEALTH MAINTENANCE Final Result from Last 3 Months or Most Recently Relevant to Health Maintenance Insurance MEDICAID - [place] Care Teams Pharmacy Teacher Relationship Specialty Start Date End Date Naheed Zaman NP [address] [place] [phone] PCP - General 02/21/24
--- OUTSIDE RECORDS SUMMARY | 2025-01-09 14:06 | XMS_ITS | Clinical Summary ---
Author Organization [facility] Address [address] [place] [address] Care Team Providers Care Administrative Volunteer Name Role Phone Unavailable Primary Care Provider [...] recurrent major depressive disorder, with psychotic features ([facility]) 06/10/2024 Assessment & Plan (06/18/2024 11:18 AM EST): Patient refused to be seen, [place] steam and gas turbine assembler was notified. Assessment & Plan (06/10/2024 5:36 [...] connected on video call until arrival of [place] Police with recommendation to section patient [...] - 19 + 3-dose series) 11/14/2023 10/17/2023 [id number] (2023- season) 01/28/202412/29/2 021, 12/10/2020 Alcohol and Drug Screen 05/29/2024 Imm-Influenza (#1) 2025 02/27/2012, 01/27/2011 Diabetes Screening 10/08/2025 10/08/2024, 0 09/12/2024, 05/16/2024, Additional history exists Lipid Screening 04/24/2029 04/24/2024, 05/29, 02/27/2020 Imm-DTaP/Tdap/Td (3 - Td or Tdap) 10/16/2033 024, 03/15/2011 Hepatitis C Screening Completed 10/11/2023 HIV Screening Completed 12/13/2023, 11/26, 12/16/2021 Insurance [facility] [place] MEDICAID
--- OUTSIDE RECORDS SUMMARY | 2025-01-09 14:06 | XMS_ITS | Encounter Summary ---
Author Organization [employer] Address [address] [place] [address] Care Team Providers Care Associate Professor Of History Name Role Phone Naheed Zaman Primary Care Provider [phone] Real Gomez MD Unavailable Reason for Visit * Reason Comments Med Refill Encounter Details Date Type Department Care Team (Late st Contact Info) Description 08/18/2023 Refill [facility] [address] [place] [address] Naheed Zaman ANP [address] [place] [address] Chronic low back pain without sciatica, unspecified [...] Care Team (Late st Contact Info) Description 01/17/2025 11:30 AM EDT Clinical Support [facility] [address] [place] [address] 02/06/2025 2:00 PM EDT Office Visit [facility] [address] [place] [address] Rut Branham MD [address] [place] [phone] documented as of this encounter Visit Diagnoses Diagnosis Chronic low back pain without sciatica, unspecified back pain laterality documented in this encounter Additional Health Concerns Assessment Noted Time PHQ-9 Depression Total Score: 6 11/19/19 23 3:29 PM EDT documented as of this encounter Care Teams Associate Professor Of History Relationship Specialty Start Date End Date Naheed Zaman ANP [address] [place] [phone] PCP - General Family Medicine 01/18/22 Real Gomez MD [address]rd [place] [address] Cardiology 10/01/24 documented as of this encounter
== END 2025-01-09 13:13 | disposition home or self-care (01) ==
LOC: HO.HMGCX 13:12
PROVIDERS: PCP Nurse Practitioner Primary Care; Visit Provider Nurse Practitioner Primary Care
DX: R33.9 Retention of urine, unspecified (principal)
CPT/HCPCS: 76857

== ENCOUNTER → 2025-01-09 13:32 | Outpatient (BNV) | payer MEDICAID, SELFPAY | PROVIDERS: PCP Nurse Practitioner Primary Care; Visit Provider Radiology Diagnostic Radiology | DX: R33.9 Retention of urine, unspecified (principal) | CPT/HCPCS: 76857 ==

== ENCOUNTER 2025-01-29 09:35 | Outpatient (AMB) | payer MEDICAID, SELFPAY ==
[2025-01-29 10:13] VITALS: PULSE 62; O2SAT 97
--- NOTE | 2025-01-29 10:13 | MHC.OFFVIS ---
Vital Signs 01/29/25 10:13 Height 5 ft 5 in Pulse 62 Pulse Source Pulse Oximeter Pulse Oximetry (%) 97 Oxygen Delivery Method Room Air Intake Visit Reasons: 6 mo follow up Intake Note: Patient presents follow up BETSY medication. Compliance in chart(70/70 days, >=4hrs-100%, Average Usage-9hr 16min, Pressure-18cm, Med Leaks-0.3, AHI-3.7). Application Software Engineer Required: Yes Application Software Engineer Services: Application Software Engineer Present Application Software Engineer Name: Sarah [id number] Information Interpreted: non-clinical & clinical Allergies seafood Allergy (Severe, Verified 01/29/25 10:24) Swelling HPI Comments Details: 44 y/o Beninese speaking male with h/o T2DM presents for f/u of betsy. Application Software Engineer on IPAD helps with history. 03/2023 titration completed and breathing/ oxygen stablilized at [id number]. HST c/w AHI 124/hr and oxygen fritz to 70%, he was titrated. The CPAP compliance and therapy response (10/22/2024-01/22/2025) >4 hours 70/70 days and > 4 hours is 100%, average usage 9hrs 16 min. Press median [id number], Leaks median 0.3, AHI 3.7/hr. He washes his mask, hoses, changes filters and fills reservoir with water as needed. He has blood coming out of nose and wakes up with black teeth, being followed by GI/PCP. He needs clearances for his bariatric surgery, and is referred out to specialist in [facility], he weighs 390lbs and is trying to lose weight. He now sleeps very comfortably with his new machine, he wakes up feeling more energized. He has parasomnias and wakes up due to nightmares of his mother visiting him in his sleep. He sees his therapist every two weeks, and is taking fluoxetine. He smokes MJ and it helps him to fall asleep when he is overwhelmed. RLS symtpoms: Moves his legs all night, it is difficult to sleep because bottom of feet burn with pins, needles, numbness, tingling up to the shins and this can happen in hands bilaterally. Migraine Headache: He has daily headaches bilaterally around the fronto-temporal area bilaterally which start from the ethmoid sinuses, this can last for hours with blurry vision, denies photophobia, phonophobia, denies n/v, dizzines. He has balance and gait disturbances and uses his can to ambulate most days. He is a Type 2 Diabetic on 2 insulins and now started ozempic for weight loss. His diet is poor and he is unable to walk due to the pain in his feet. Memory and mood is stable. Upcoming appts for clearance of bariatric surgery. 03/05 -pulmonology - rheumatology 02/13/ cardiology 02/18- urology and hip / shoulder joint injections for pain. 02/20 - [facility] Bariatric referral, he needs to lose 100lbs in [facility] for this procedure, wants second opinion. [facility] Medical History Seronegative spondyloarthropathy Vitamin D deficiency Elevated C-reactive protein (CRP) Fibromyalgia Polyarthralgia Narcotic dependence Thrombocytopenia Carpal tunnel syndrome Sleep apnea Pre-op evaluation Hx of migraines BETSY on CPAP Pre-op evaluation HTN (hypertension), benign Insulin dependent type 1 diabetes mellitus Morbid obesity Shoulder dislocation Diabetes Surgical History Hx of colonoscopy History of esophagogastroduodenoscopy (EGD) Hx of hernia repair Hx of appendectomy Family History Mother No problems noted. Brother No problems noted. Daughter No problems noted. Daughter No problems noted. Daughter No problems noted. Son No problems noted. Son No problems noted. 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 Review of Systems ENT Reports Normal hearing present Neuro Reports Normal hearing present Physical Exam Vital Signs: Last Vital Signs Pulse 62 01/29/25 10:13 Pulse Ox 97 01/29/25 10:13 Oxygen Delivery Method Room Air 01/29/25 10:13 Const General: cooperative Nutritional Appearance: obese Orientation/consciousness: patient oriented x3 Limitations: language barrier (Beninese speaking only) Resp Effort & Inspection: normal respiratory effort and able to speak in complete sentences Neuro Other: ambulates with cane balance and gait is off General: patient oriented x3, gait normal and moves all extremities Cranial nerves: Yes Normal accommodation reflex present, Yes Bilaterally intact EOM present, Yes Nystagmus not present, Yes Normal facial strength present, Yes Midline tongue present, Yes Normal hearing present, Yes Ability to bilaterally rotate head present and Yes Ability to bilaterally elevate shoulders present Cognition (Neuro): normal cognition Gait exam (Neuro): Wide-based gait present, Assistive device used and Other gait observations present Motor exam (neuro): 5/5 motor strength present throughout, Pronator motor function not present, no tremor noted and Normal motor muscle tone present throughout Psych Appearance: grossly normal Mental Status: mental status grossly normal Speech and movement: Normal speech and movement present Affect: normal affect Thought process: Normal thought process present Thought content: Normal thought content present Results Reviewed Results Reviewed: PFT Impression: No obstructive or restrictive ventilatory defect. Bronchodilator response is present in small to medium airways only. Increased residual volume suggests air trapping. Decreased expiratory reserve volume suggests extrathoracic restriction likely secondary to abdominal obesity. Assessment & Plan Assessment & Plan (1) Sleep apnea treated with continuous positive airway pressure (CPAP): Code(s): G47.30 - Sleep apnea, unspecified Category: Medical (2) Morbid obesity: Code(s): E66.01 - Morbid (severe) obesity due to excess calories Category: Medical (3) Restless leg syndrome due to iron deficiency anemia: Code(s): G25.81 - Restless legs syndrome; D50.9 - Iron deficiency anemia, unspecified Category: Medical Plan BETSY severe Continue CPAP daily. Stressed compliance >4 hours nightly and >70% quarterly. RLS start B6 200mg and magnesium 400mg po daily at night. Referral weight management to [facility] for bariatric f/u with daily exercise and field assistant referral. MRI is pending Per PCP. Medications: Refilled magnesium oxide take on tablet daily at bedtime may hold for loose stools. 400 mg PO DAILY 60 tabs 1RF leg cramps 2 months MDD 400mg D50.9 - Iron deficiency anemia, unspecified, G25.81 - Restless legs syndrome Patient Instructions: Sleep Hygiene provided: set a scheduled bedtime and wake time to help regulate the circadian rhythm and balance the release of pituitary hormones. Sleep in a dark room, temperatures below 68 degrees, and no devices n bed. Limit caffeinated products 6 hours prior to bed, and limit fluids 2-4 hours prior to bed. Gentle night yoga, diffusing essential oils, and playing soft music can be relaxing. Coding Level of Care Code Est Pt Level 4 (48256) Diagnoses Sleep apnea treated with continuous positive airway pressure (CPAP) G47.30 Morbid obesity E66.01 Restless leg syndrome due to iron deficiency anemia G25.81; D50.9
--- OUTSIDE RECORDS SUMMARY | 2025-01-29 10:28 | XMS_ITS | Encounter Summary ---
Author Organization [facility] Address [address] [place] [address] Care Team Providers Care Bead Filler Name Role Phone Naheed Zaman Primary Care Provider [phone] Real Gomez MD Unavailable Reason for Visit * Reason Comments Med Refill Encounter Details Date Type Department Care Team (Late st Contact Info) Description 08/18/2023 Refill [facility] [address] [place] [address] Naheed Zaman ANP [address] [place] [address] Chronic low back pain without sciatica, unspecified [...] Care Team (Late st Contact Info) Description 02/06/2025 2:00 PM EDT Office Visit [address] [address] Rut Branham MD [address] [place] [address] 02/17/2025 11:00 AM EDT Clinical Support [address] [address] 03/27/2025 9:00 AM EDT Office Visit [address] [address] Naheed Zaman ANP [address] [place] [address] 04/03/2025 3:00 PM EST Office Visit [address] [address] Rut Branham MD [address] [place] [address] documented as of this encounter Visit Diagnoses Diagnosis Chronic low back pain without sciatica, unspecified back pain laterality documented in this encounter Additional Health Concerns Assessment Noted Time PHQ-9 Depression Total Score: 6 11/19/19 23 3:29 PM EDT documented as of this encounter Care Teams Bead Filler Relationship Specialty Start Date End Date Naheed Zaman ANP [address] [place] [phone] PCP - General Family Medicine 01/18/22 Real Gomez MD [address] [place] [address] 3rd [place] [address] Cardiology 10/01/24 documented as of this encounter
--- OUTSIDE RECORDS SUMMARY | 2025-01-29 10:28 | XMS_ITS | Encounter Summary ---
Author Organization [employer] Address [address] [facility] 7t [place] [address] Care Team Providers Care Carbon Paper Machine Operator Name Role Phone Naheed Zaman Primary Care Provider [phone] Real Gomez MD Unavailable Reason for Visit * Reason Comments Med Refill Encounter Details Date Type Department Care Team (Late st Contact Info) Description 09/14/2023 Refill [facility] [address] [place] [address] Dayna Cardenas MD [address] [place] [address] Uncomplicated opioid dependence (CMS/HCC) Social History Tobacco [...] Description 02/06/2025 2:00 PM EDT Office Visit [address] [address] Rut Branham MD [address] [place] [address] 02/17/2025 11:00 AM EDT Clinical Support [address] [address] 03/27/2025 9:00 AM EDT Office Visit [address] [address] Naheed Zaman ANP [address] [place] [address] 04/03/2025 3:00 PM EST Office Visit [address] [address] Rut Branham MD [address] [place] [address] documented as of this encounter Visit Diagnoses Diagnosis Uncomplicated opioid dependence (CMS/HCC) documented in this encounter Additional Health Concerns Assessment Noted Time PHQ-9 Depression Total Score: 6 11/19/19 23 3:29 PM EDT documented as of this encounter Care Teams Carbon Paper Machine Operator Relationship Specialty Start Date End Date Naheed Zaman ANP [address] [place] [phone] PCP - General Family Medicine 01/18/22 Real Gomez MD [address] [place] [address] Drive 3rd Floor [place] [address] Cardiology 10/01/24 documented as of this encounter
--- OUTSIDE RECORDS SUMMARY | 2025-01-29 10:28 | XMS_ITS | Encounter Summary ---
Author Organization [employer] Address [address] [place] [address] Care Team Providers Care Oracle Identity Management Consultant Name Role Phone Naheed Zaman Primary Care Provider [phone] Real Gomez MD Unavailable Reason for Visit * Reason Comments Med Refill Encounter Details Date Type Department Care Team ([facility] st Contact Info) Description 09/26/2024 Refill [facility] [address] [place] [address] Desirae Cowan MD [address] [place] [address] Social History Tobacco Use Types Packs/Day Years [...] the past 12 months, has t he Interactive Investor, gas, oil or water company threatened to [...] Description 02/06/2025 2:00 PM EDT Office Visit [facility] [address] [place] [address] Rut Branham MD [address] [place] [address] 02/17/2025 11:00 AM EDT Clinical Support [address] [address] 03/27/2025 9:00 AM EDT Office Visit [facility] [address] [place] [address] Naheed Zaman ANP [address] [place] [phone] 04/03/2025 3:00 PM EST Office Visit [facility] [address] [place] [address] Rut Branham MD [address] [place] [address] documented as of this encounter Visit Diagnoses Not on filedocumented in this encounter Additional Health Concerns Assessment Noted Time PHQ-9 Depression Total Score: 25 024 8:12 AM EDT documented as of this encounter Care Teams Oracle Identity Management Consultant Relationship Specialty Start Date End Date Naheed Zaman ANP [address] [place] [phone] PCP - General Family Medicine 01/18/22 Real Gomez MD [address] [place] [address] 3rd [place] [address] Cardiology 10/01/24 documented as of this encounter
--- OUTSIDE RECORDS SUMMARY | 2025-01-29 10:28 | XMS_ITS | Encounter Summary ---
Author Organization [employer] Address 75 [facility] 7t [place] [address] Care Team Providers Care Body Sander Name Role Phone Naheed Zaman Primary Care Provider Real Gomez MD Unavailable Reason for Visit * Reason Onset Date Comments Med Refill 11/20/2024 Encounter Details Date Type Department Care Team (Late st Contact Info) Description 11/20/2024 Refill [facility] [address] [place] [address] Rut Branham MD [address] [place] [address] Uncomplicated opioid dependence (CMS/HCC) Social History Tobacco [...] Description 02/06/2025 2:00 PM EDT Office Visit [address] [address] Rut Branham MD [address] [place] [address] 02/17/2025 11:00 AM EDT Clinical Support [address] [address] 03/27/2025 9:00 AM EDT Office Visit [address] [address] Naheed Zaman ANP [address] [place] [address] 04/03/2025 3:00 PM EST Office Visit [address] [address] Rut Branham MD [address] [place] [address] documented as of this encounter Visit Diagnoses Diagnosis Uncomplicated opioid dependence (CMS/HCC) documented in this encounter Additional Health Concerns Assessment Noted Time PHQ-9 Depression Total Score: 7 10/05/19 25 2:06 PM EDT documented as of this encounter Care Teams Body Sander Relationship Specialty Start Date End Date Naheed Zaman ANP [address] [place] [address] PCP - General Family Medicine 01/18/22 Real Gomez MD [address] [place] [address] 3rd [place] [address] Cardiology 10/01/24 documented as of this encounter
--- OUTSIDE RECORDS SUMMARY | 2025-01-29 10:28 | XMS_ITS | Encounter Summary ---
Author Organization [facility] Address [address] [facility] 7t [place] [address] Care Team Providers Care Advertising Statistical Clerk Name Role Phone Naheed Zaman Primary Care Provider [phone] Real Gomez MD Unavailable Encounter Details Date Type Department Care Team (Latest Contact Info) Description 12/29/2021 Abstract [facility] Dental, Provider, DDS Social History Tobacco [...] Description 02/06/2025 2:00 PM EDT Office Visit [facility] [address] [place] [address] Rut Branham MD [address] [place] [address] 02/17/2025 11:00 AM EDT Clinical Support [address] [address] 03/27/2025 9:00 AM EDT Office Visit [facility] [address] [place] [address] Naheed Zaman ANP [address] [place] [address] 04/03/2025 3:00 PM EST Office Visit [facility] [address] [place] [address] Rut Branham MD [address] [place] [address] documented as of this encounter Visit Diagnoses Not on filedocumented in this encounter Care Teams Advertising Statistical Clerk Relationship Specialty Start Date End Date Naheed Zaman ANP [address] [place] [address] PCP - General Family Medicine 01/18/22 Real Gomez MD [address] [place] [address] 3rd [place] [address] Cardiology 10/01/24 documented as of this encounter
--- OUTSIDE RECORDS SUMMARY | 2025-01-29 10:28 | XMS_ITS | Clinical Summary ---
Author Organization [facility] Address [address] [place] [address] Phone Care Team Providers Care Drop Hammer Set Up Operator Name Role Phone Naheed Zaman NP Primary Care Provider [phone] Allergies Active Allergy Reactions Criticality Noted Date [...] obesity with BMI of 6 0.0-69.9, adult ([facility] V24, [facility] V28) 04/17/2024 Acquired pes planus 05/11/2017 Pure hypercholesterolemia 05/10/2017 Pulmonary hypertension ([facility] V24, [facility] V28 ) 05/10/2017 Overview (04/17/2024): Mild, ECHO 10/21/10 C, EF 65-70% HTN (hypertension) 05/10/2017 H. pylori infection 05/10/2017 Overview (04/17/2024): + serology 08/07/2009, uncertain if treated Gout 05/10/2017 Elevated liver enzymes 05/10/2017 Overview (04/17/2024): fatty liver DJD (degenerative joint disease) 05/10/2017 Overview (04/17/2024): Mild L knee, Mod L shoulder arthropathy Asthma 05/10/2017 Proteinuria 04/30/2017 DM (diabetes mellitus), type 2 with renal complications ([facility] V24, [facility] V28) 04/30/2017 Spondylosis of lumbar region without myelopathy or radiculopathy 04/26/2017 Overview (04/17/2024): Saw [facility] Rheumatology BETSY (obstructive sleep apnea) 04/26/2017 Overview (04/17/2024): Polysomnography 08/05/2009, [facility] :On cpap 14 cm H2O 10/23/2017 Home Sleep Study insufficient data. 08/2018 - Pulm ordered split night study. Diabetes mellitus type 2 wit h neurological manifestations ([facility] V24, [facility] V28) 04/26/2017 CTS (carpal tunnel syndrome) [...] (diabetes mellitus), type 2 with renal complications ([facility] V24, [facility] V28) 04/30/2017 DX:DM (diabetes mellitus), t ype 2 with renal complications (HCC) Proteinuria 04/30/2017 DX:Proteinuria Diabetes mellitus type 2 wit h neurological manifestations ([facility] V24, [facility] V28) 04/26/2017 DX:Diabetes mellitus type 2 with neurological manifestations (HCC) Asthma 05/10/2017 DX:Asthma Elevated liver enzymes 05/10/2017 DX:Elevat ed liver enzymes; COMMENT: fatty liver Gout 05/10/2017 DX:Gout H. pylori infection 05/10/2017 DX:H. 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 DX:History of acute post-streptococcal glomerulonephritis; COMMENT: Hospitalized [facility] with anasarca/ KUNAL 2010, streptolysin titer 1060, kidney bx, Followed in past by Dr Zapata, NSAIDS not recommended HTN (hypertension) 05/10/2017 DX:HTN (hyper tension) Morbid obesity with BMI of 6 0.0-69.9, adult ([facility] V24, [facility] V28) 04/26/2017 DX:Morbid obesity wit h BMI of 60.0-69.9, adult ([facility]) BETSY (obstructive sleep apnea) 04/26/2017 DX :BETSY (obstructive sleep apnea); COMMENT: Polysomnography 08/05/2009, [facility] :On cpap 14 cm H2O Pulmonary hypertension ([facility] V24, [facility] V28) 05/10/2017 DX:Pulmonary hypertension (H CC); COMMENT: Mild, ECHO 10/21/10 [facility], EF 65-70% Otherwise normal altho suboptimal views, [...] egion without myelopathy or radiculopathy; COMMENT: Saw [facility] Rheumatology Family History Medical History Relation Name [...] 3 - 19+ 3-dose series) 11/14/2023 10/17/2023 Depression Screening 05/29/2024 Diabetes: Blood Sugar Contro l Test (HGBA1C) 10/22/2024 04/24/2024, 02/27/2020 COVID-19 Vaccine (3 - 2024-2 6 season) 2025 12/29/2020, 12/10/2020 Influenza Vaccine (#1) 2025 2, 01/27/2011 Diabetes: [...] Albumin Creatinine Ratio (02/27/2020) Pathologist [facility] Urine Albumin Creatinine Ratio Abstracted [facility] Provider HEALTH MAINTENANCE Final Result * Annual BMP Blood Test (02/27/2020) Pathologist [facility] Annual BMP Blood Test Abstracted Result [facility] Provider HEALTH MAINTENANCE Final Result * (ABNORMAL) Hemoglobin A1c (02/27/2020) [facility] Hemoglobin A1C 6.9(A) <=6.5 % Blood Venous blood specimen / Unknown Result [facility] Provider LAB BLOOD ORDERABLES Brunilda l Result * Lipid panel (02/27/2020) [facility] LDL/HDL Ratio 3 0 - 4 Triglycerides 91 0 - 150 mg/dL Cholesterol 145 0 - 200 mg/dL HDL 58 >=40 mg/dL LDL Cholesterol 69 0 - 100 mg/dL Blood Venous blood specimen / Unknown Result [facility] Provider LAB BLOOD ORDERABLES Brunilda l Result * Hepatitis C Screening (06/22/2017) Pathologist [facility] Hepatitis C Screening Abstracted us Historical Provider HEALTH MAINTENANCE Final Result from Last 3 Months or Most Recently Relevant to Health Maintenance Insurance MEDICAID - [place] Care Teams Drop Hammer Set Up Operator Relationship Specialty Start Date End Date Naheed Zaman NP [address] [place] [phone] PCP - General 02/21/24
--- OUTSIDE RECORDS SUMMARY | 2025-01-29 10:28 | XMS_ITS | Encounter Summary ---
Author Organization [employer] [facility] Address [address] [place] [address] 7 [place] [address] Care Team Providers Care School Bus Technician Name Role Phone Naheed Zaman Primary Care Provider Real Gomez MD Unavailable Reason for Visit * Reason Comments Med Refill Encounter Details Date Type Department Care Team (Late Contact Info) Description 02/02/[address] [facility]ICINE [address] [place] [address] Rut Branham MD [address] [place] [address] Uncomplicated opioid dependence (CMS/HCC) Social History Tobacco [...] Department Care Team (Late Contact Info) Description 02/06/2025 2:00 PM EDT Office Visit [facility] [address] [place] [address] Rut Branham MD [address] [facility] [place] [address] 02/17/2025 11:00 AM EDT Clinical Support [facility] [place] [address] 03/27/2025 9:00 AM EDT [address] [place] [address] Naheed Zaman ANP [facility] [place] [address] 04/03/2025 3:00 PM EST Office Visit [facility] [place] [address] ORut Metcalf MD [facility] [place] [address] documented as of this encounter Visit Diagnoses Diagnosis Uncomplicated opioid dependence (CMS/HCC) documented in this encounter Additional Health Concerns Assessment Noted Time PHQ-9 Depression Total Score: 6 11/19/19 23 3:29 PM EDT documented as of this encounter Care Teams School Bus Technician Relationship Specialty Start Date End Date Naheed Zaman ANP [facility] [place] [address] PCP - General Family Medicine 01/18/22 Real Gomez MD [address] 3rd [place] [address] Cardiology 10/01/24 documented as of this encounter
--- OUTSIDE RECORDS SUMMARY | 2025-01-29 10:28 | XMS_ITS | Encounter Summary ---
Author Organization [employer] Address [address] [facility] 7t [place] [address] Care Team Providers Care Molecular Genetic Pathologist Name Role Phone Naheed Zaman Primary Care Provider [phone] Real Gomez MD Unavailable Reason for Visit * Reason Onset Date Comments Med Refill 01/29/2025 Encounter Details Date Type Department Care Team (Late st Contact Info) Description 01/29/2025 Refill [facility]INE [address] [place] [address] Rut Branham MD [address] [place] [address] Uncomplicated opioid dependence (CMS/HCC) Social History Tobacco [...] Description 02/06/2025 2:00 PM EDT Office Visit [address] [address] Rut Branham MD [address] [place] [address] 02/17/2025 11:00 AM EDT Clinical Support [address] [address] 03/27/2025 9:00 AM EDT Office Visit [address] [address] Naheed Zaman ANP [address] [place] [address] 04/03/2025 3:00 PM EST Office Visit [address] [address] Rut Branham MD [address] [place] [address] documented as of this encounter Visit Diagnoses Diagnosis Uncomplicated opioid dependence (CMS/HCC) documented in this encounter Additional Health Concerns Assessment Noted Time PHQ-9 Depression Total Score: 7 10/05/19 25 2:06 PM EDT documented as of this encounter Care Teams Molecular Genetic Pathologist Relationship Specialty Start Date End Date Naheed Zaman ANP [address] [place] [address] PCP - General Family Medicine 01/18/22 Real Gomez MD [address] [place] [address] 3rd [place] [address] Cardiology 10/01/24 documented as of this encounter
--- OUTSIDE RECORDS SUMMARY | 2025-01-29 10:28 | XMS_ITS | Clinical Summary ---
Author Organization [facility] Address [address] [place] [address] Care Team Providers Care Production Generalist Name Role Phone Unavailable Primary Care Provider [...] recurrent major depressive disorder, with psychotic features ([facility]) 06/10/2024 Assessment & Plan (06/18/2024 11:18 AM EST): Patient refused to be seen, [place] produce production team member was notified. Assessment & Plan [...] connected on video call until arrival of [place] Police with recommendation to section patient to [...] - 19 + 3-dose series) 11/14/2023 10/17/2023 Alcohol and Drug Screen 05/29/2024 [id number] ( season) 01/27/202512/29/2 021, 12/10/2020 Imm-Influenza (#1) 2025 02/27/2012, 01/27/2011 Diabetes Screening 10/08/2025 10/08/2024, 0 09/12/2024, 05/16/2024, Additional history exists Lipid Screening 04/24/2029 04/24/2024, 05/29, 02/27/2020 Imm-DTaP/Tdap/Td (3 - Td or Tdap) 10/16/2033 024, 03/15/2011 Hepatitis C Screening Completed 10/11/2023 HIV Screening Completed 12/13/2023, 11/26, 12/16/2021 Insurance [facility] [place] MEDICAID
--- OUTSIDE RECORDS SUMMARY | 2025-01-29 10:28 | XMS_ITS | Encounter Summary ---
Author Organization [employer] Address [address] [facility] 7t [place] [address] Care Team Providers Care Network Planner Name Role Phone Naheed Zaman Primary Care Provider [phone] Real Gomez MD Unavailable Reason for Visit * Reason Onset Date Comments callback requested 04/23/2024 Encounter Details Date Type Department Care Team ([facility] Contact Info) Description 04/23/2024 Telephone [facility] [address] [place] [address] Naheed Zaman ANP 230 [place] [address] callback requested Social History Tobacco Use Types [...] the past 12 months, has t he [employer], gas, oil or water [employer] threatened to shut off services in your [...] returning call to Madie Olson Callback number [phone] documented in this encounter Plan of Treatment Upcoming Encounters Date Type Department Care Team (Late st Contact Info) Description 02/06/2025 2:00 PM EDT Office Visit [facility] [address] [place] [address] Rut Branham MD [address] [place] [address] 02/17/2025 11:00 AM EDT Clinical Support [address] [address] 03/27/2025 9:00 AM EDT Office Visit [facility] [address] [place] [address] Naheed Zaman ANP [address] [place] [address] 04/03/2025 3:00 PM EST Office Visit [facility] [address] [place] [address] Rut Branham MD [address] [place] [address] documented as of this encounter Visit Diagnoses Not on filedocumented in this encounter Additional Health Concerns Assessment Noted Time PHQ-9 Depression Total Score: 25 024 8:12 AM EDT documented as of this encounter Care Teams Network Planner Relationship Specialty Start Date End Date Naheed Zaman ANP 230 [place], [place] [id number] PCP - General Family Medicine 01/18/22 Real Gomez MD [address] [place] [address] 3rd [place] [address] Cardiology 10/01/24 documented as of this encounter
--- OUTSIDE RECORDS SUMMARY | 2025-01-29 10:28 | XMS_ITS | Encounter Summary ---
Author Organization [employer] Address [address] [facility] [address]t [place] [address] Care Team Providers Care Supervisor Electronics Assembly Name Role Phone Naheed Zaman Primary Care Provider [phone] Real Gomez MD Unavailable Reason for Visit * Reason Onset Date Comments Med Refill 01/03/2025 Encounter Details Date Type Department Care Team (Late st Contact Info) Description 01/03/2025 Refill [facility] [address] [place] [address] Naheed Zaman ANP 230 [place] [address] Gastroesophageal reflux disease, unspecified whether esophagitis present; Essential hypertension; Chronic low back pain without sciatica, unspecified [...] Description 02/06/2025 2:00 PM EDT Office Visit [address] [address] Rut Branham MD [address] [place] [address] 02/17/2025 11:00 AM EDT Clinical Support [address] [address] 03/27/2025 9:00 AM EDT Office Visit [address] [address] Naheed Zaman ANP [address] [place] [address] 04/03/2025 3:00 PM EST Office Visit [address] [address] Rut Branham MD 230 [place] [address] documented as of this encounter Visit Diagnoses Diagnosis Gastroesophageal reflux disease, unspecified whether esophagitis present Essential hypertension Unspecified essential hypertension Chronic low back pain without sciatica, unspecified back pain laterality documented in this encounter Additional Health Concerns Assessment Noted Time PHQ-9 Depression Total Score: 7 10/05/19 25 2:06 PM EDT documented as of this encounter Care Teams Supervisor Electronics Assembly Relationship Specialty Start Date End Date Naheed Zaman ANP [address] [place] [address] PCP - General Family Medicine 01/18/22 Real Gomez MD [address] [place] [address] 3rd [place] [address] Cardiology 10/01/24 documented as of this encounter
--- OUTSIDE RECORDS SUMMARY | 2025-01-29 10:28 | XMS_ITS | Clinical Summary ---
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 Alcohol Swabs (Alcohol Prep) 70 % pads USE FOUR TIMES DAILY WITH INSULIN Active Blood Glucose Monitoring Suppl (FreeStyle [place] Lite) w/Device kit TEST BLOOD SUGAR FOUR TIMES DAILY Active FREESTYLE LITE test strip TEST BLOOD SUGAR FOUR TIMES DAILY Active glucose blood (FREESTYLE LITE) test strip check fingerstick 4 times a day Active Sure Comfort Pen [place] 31G X 5 MM misc USE FOUR [...] Active beta carotene (vitamin A) 3 MG (42875 UT) capsule TAKE 2 CAPSULES BY MOUTH EVERY DAY FOR 2 WEEKS 022 Active EPINEPHrine (Epipen) 0.3 MG/0.3ML injection syringeIndicatio ns:Allergy to shellfish INJECT INTRAMUSCULARLY DIRECTED ON PACKAGE AND GO TO EMERGENCY ROOM 2 each 023 Active Blood Pressure Monitor kitIndications:P ulmonary hypertension ([facility]/HCC) 1 kit in the morning. 1 kit 024 Active atorvastatin (Lipitor) 10 MG tabletIndication s:Type 2 diabetes mellitus with hyperlipidemia (CMS/HCC) ([facility]) Take 1 tablet (10 mg) by mouth at bedtime. 90 tablet 3 024 Active GaviLAX 17 GM/SCOOP powder TAKE DIRECTED BY MOUTH THE DAY BEFORE YOUR PROCEDURE. 024 Active chlorhexidine (Peridex) 0.12 % solution Swish 15 mL morning and night for 1 minute. Spit, do not swallow. Do not eat or drink for 30 minutes following use. 473 mL 024 Active Continuous Glucose Pipe Fitter Apprentice (FreeStyle [place] 2 [place]) deviceIndication s:Diabetes mellitus with albuminuria (CMS/HCC) ([facility]) Scan sensor every 8 hours 1 each 024 Active Continuous Glucose Sensor (FreeStyle Casey 2 Sensor) miscIndications: Diabetes mellitus with albuminuria (CMS/HCC) ([facility]) Apply 1 sensor every 14 days 2 each 024 Active glucose (BD Glucose) 5 g chewable tabletIndication s:Type 2 diabetes mellitus with hyperlipidemia (CMS/HCC) ([facility]) Chew 3 tablets (15 g) if needed [...] bedtime for irritation. 56 g 024 Active esomeprazole (NexIUM) [address] capsuleIndicatio ns:Gastroesophag eal reflux disease, unspecified whether esophagitis present TAKE 1 CAPSULE BY MOUTH EVERY MORNING BEFORE BREAKFAST. DO NOT BREAK, CRUSH, DISSOLVE OR CHEW 90 capsule 1 025 Active olmesartan-hydro CHLOROthiazide (Benicar HCT) 40-12.5 MG tabletIndication s:Essential hypertension Take 1 tablet by mouth Once per day. 90 tablet 3 025 2025 Active triamcinolone (Kenalog) 0.1 % creamIndications :Venous stasis dermatitis of both lower extremities Apply topically if needed in the morning and at bedtime (pain and swelling). 80 g 025 Active meloxicam (Mobic) 15 MG tabletIndication s:Chronic low back pain without sciatica, unspecified back pain laterality TAKE 1 TABLET BY MOUTH EVERY DAY NEEDED FOR PAIN 30 tablet 3 025 Active Suboxone 8-2 MG SL filmIndications: Uncomplicated opioid dependence (CMS/HCC) Place 3 Film under the tongue Once per day. 84 Film 1 025 2024 Active semaglutide (Ozempic) 2 MG/1.5ML solution pen-injectorIndi cations:Diabetic nephropathy with proteinuria (CMS/HCC) Inject 0.5 mg under the skin 1 (one) time per week. 1 each 12 025 Active ARIPiprazole (Abilify) 10 MG tabletIndication s:Severe episode of recurrent major depressive disorder, without psychotic features (CMS/HCC) Take 1.5 tablets (15 mg) by mouth Once per day. 45 tablet 025 Active insulin glargine (Lantus SoloStar) 100 UNIT/ML penIndications:T ype 2 diabetes mellitus with hyperlipidemia (CMS/HCC) (CMS/HCC) INJECT 40 UNITS SUBCUTANEOUSLY AT BEDTIME 15 mL 3 025 Active tamsulosin (Flomax) 0.4 MG 24 hr capsuleIndicatio ns:Urinary retention Once capsule daily approximately 30 minutes after a meal at the same time each day 30 capsule 1 025 Active betamethasone valerate (Valisone) 0.1 % creamIndications :Venous stasis dermatitis of both lower extremities APPLY TOPICALLY TWICE DAILY IN THE MORNING AND AT BEDTIME NEEDED DRY SKIN 45 g 2 025 Active FLUoxetine (PROzac) 20 MG capsuleIndicatio ns:Severe episode of recurrent major depressive disorder, without psychotic features (CMS/HCC) TAKE 3 CAPSULES BY MOUTH EVERY DAY IN THE MORNING 90 capsule 1 025 Active famotidine (Pepcid) 20 MG tabletIndication s:Epigastric abdominal pain Take 1 tablet twice daily as needed for acid reflux 40 tablet 024 2024 Discontinued( Therapy completed) Carafate 1 GM/10ML suspension 024 2024 Discontinued( Therapy completed) betamethasone valerate (Valisone) 0.1 % creamIndications :Venous stasis dermatitis of both lower extremities APPLY TOPICALLY TWICE DAILY IN THE MORNING AND AT BEDTIME NEEDED FOR DRY SKIN 45 g 2 025 2024 Discontinued insulin glargine (Lantus SoloStar) 100 UNIT/ML pen INJECT 55 UNITS SUBCUTANEOUSLY AT BEDTIME 15 mL 3 025 2024 Discontinued( Reorder (will not trigger notification to Pharmacy)) FLUoxetine (PROzac) 20 MG capsuleIndicatio ns:Severe episode of recurrent major depressive disorder, without psychotic features (CMS/HCC) Take 3 capsules (60 mg) by mouth in the morning. 90 capsule 1 025 2024 Discontinued Active Problems Problem Noted Date Diagnosed Date [...] Health Integration Plan Internal Follow up with [facility] Patient Self Plan Patient to reach out to [facility] team as needed, Comply with medication [...] Health Integration Plan Internal Follow up with [facility] Patient Self Plan Patient to reach out to [facility] team as needed, Comply with medication [...] Health Integration Plan Internal Follow up with [facility] Patient Self Plan Patient to utilize skills provided in intervention , Patient [facility] as needed, and Patient to [...] Health Integration Plan Internal Follow up with [facility] External OP psychiatry Referral Patient Self Plan Patient to reach out to [facility] team as needed, Comply with medication , Patient to engage in OP BH therapy , and Patient to reach out to [facility] as needed Assessment & Plan (09/20/2023 10:06 AM EDT): New/Additional Services needed Off-site services for Behavioral Health Integration Plan External OP therapy referral Patient Self Plan Patient to utilize skills provided in intervention , Patient to reach out to [facility] team as needed, Comply with medication [...] explained that she tried referring pt to [facility] and other centers and pt;s can not be evaluated for plastic surgery w current BMI -I request referral to be sent to [facility] but was explained is [...] hypertension 05/10/2017 Overview (07/28/2022): Mild, ECHO 10/21/10 [facility], EF 65-70% H. pylori infection 05/10/2017 Overview (07/28/2022): + serology 08/07/2009, uncertain if treated Gout 05/10/2017 Elevated liver enzymes 05/10/2017 Overview (07/28/2022): fatty liver Arthritis 05/10/2017 Overview (07/28/2022): Mild L knee, Mod L shoulder arthropathy Asthma 05/10/2017 Spondylosis of lumbar region without myelopathy or radiculopathy 04/26/2017 Overview (11/22/2024): Saw [facility] [place], now on humira which has been helping some CTS (carpal tunnel syndrome) 04/26/2017 Assessment & [...] 05/18/2015 BETSY (obstructive sleep apnea) 05/18/2015 Overview (11/22/2024): Polysomnography 08/05/2009, [facility]: On cpap 14 cm H2O 10/23/2017 Home Sleep Study insufficient data. 08/2018 - [facility] ordered split night study. Titration was done 03/2023 and titrated to start cpap at [id number]. HST c/w AHI 124/hr and oxygen fritz to 70%, he was titrated Follows w/ [facility], Leyla De La Cruz PA Proteinuria 05/18/2015 Encounters * This document contains information received from the source organization and may not represent a complete record from that organization. Date Type Department Care Team Description 01/29/2025 Refill [facility] [address] [place] [phone] Rut Branham MD Uncomplicated opioid dependence ([facility]) 01/28/2025 Patient Outreach [facility] [address] [place] [address] Sofia Mitchell ANP 01/20/2025 Travel 01/20/2025 Patient Outreach [facility] [address] [place] [address] Sofia Mitchell ANP Care Coordination (C3CM/MATTHEW Escobar f/u call ) 01/20/2025 Patient Outreach [facility] [address] [place] [address] Sofia Mitchell ANP Care Coordination (C3CM f/u call) 01/17/2025 11:30 AM EDT Clinical Support [facility] [address] [place] [phone] Lela Witt RN Type 2 diabetes mellitus with hyperlipidemia (CMS/HCC) (CMS/HCC) 01/17/2025 Travel 01/16/2025 Telephone [facility] [place] [address] Sofia Mitchell ANP Durable Medical Equipment 01/15/2025 Refill [facility] [address] Sofia Mitchell ANP Venous stasis dermatitis of both lower extremities 01/13/2025 Telephone [facility] [address] [place] [address] Sofia Mitchell ANP vasular 01/13/[address] [address] Sofia Mitchell ANP Vascular 01/10/2025 Results Follow-Up [address] [address] Sofia Mitchell ANP US BLADDER 01/09/2025 10:30 AM EDT Office Visit [address] [address] Sofia Mitchell ANP Type 2 diabetes mellitus with hyperlipidemia ([facility]) (Primary Dx); Morbid obesity ([facility]); Diabetic nephropathy with proteinuria (CMS/[facility]); Pulmonary hypertension (CMS/[facility]); MICHAEL (generalized anxiety disorder); Dietary counseling; Exercise counseling 01/09/2025 Travel 01/08/[address] [address] Sofia Mitchell ANP chart prep 01/03/2025 Refill [facility] [address] [place] [address] Sofia Mitchell ANP Gastroesophageal reflux disease, unspecified whether esophagitis present; Essential hypertension; Chronic low back pain without sciatica, unspecified back pain laterality 01/03/2025 Refill [facility] [address] [place] [address] Rut Branham MD Uncomplicated opioid dependence (CMS/HCC) 01/02/2025 Patient Outreach [address] [address] Sofia Mitchell ANP Care Management (C3CM- f/u call) 12/24/2024 11:15 AM EDT Office Visit [address] [address] Sofia Mitchell ANP Urinary retention (Primary Dx); Diabetic nephropathy with proteinuria (CMS/HCC); Severe episode of recurrent major depressive disorder, without psychotic features (CMS/HCC); Epigastric pain; Class 3 severe obesity with serious comorbidity and body mass index (BMI) of 60.0 to 69.9 in adult, unspecified obesity type; MICHAEL (generalized anxiety disorder); Pulmonary hypertension (CMS/HCC); BETSY (obstructive sleep apnea); Spondylosis of lumbar region without myelopathy or radiculopathy 12/24/2024 Travel 12/23/[address] [address] Sofia Mitchell ANP chart prep 12/20/2024 Patient Outreach [address] [address] Sofia Mitchell ANP Care Coordination (Error) 12/20/2024 Patient Outreach [address] [address] Sofia Mitchell ANP Care Management (C3CM- f/u call) 12/20/[address] [address] Sofia Mitchell ANP Nurse Triage 12/18/2024 Patient Outreach [address] [address] Sofia Mitchell ANP Care Coordination (CM/Matthew Escobar f/u call_lvm) 12/16/2024 Results Follow-Up [address] [address] Sofia Mitchell ANP Hepatic Function Panel, Hepatitis A Antibody, Total, Hepatitis B Core Antibody, Total, Additional followed-up results: 3 12/12/2024 3:00 PM EDT Office Visit [address] [address] Rut Branham MD Opioid type dependence, continuous (CMS/HCC) (Primary Dx) 12/12/2024 Travel 12/09/2024 Patient Outreach [address] [address] Sofia Mitchell ANP Care Coordination (C3CM/Mikie Escobaroh f/u call ) 12/09/2024 Patient Outreach [facility] [address] [place] [address] Sofia Mitchell ANP Care Coordination (C3CM f/u call) 12/04/2024 Refill [facility] [address] [place] [address] Rut Branham MD Uncomplicated opioid dependence (CMS/HCC) 11/28/2024 Telephone [facility] [address] [place] [address] Sofia Mitchell ANP Durable Medical Equipment 11/25/[address] [address] Lela Witt, RN [facility] 11/25/2024 Patient Outreach [facility] [address] [place] [address] Sofia Mitchell ANP Care Coordination (C3CM f/u call) 11/22/2024 11:30 AM EDT Office Visit [facility] [address] [place] [address] Sofia Mitchell ANP Type 2 diabetes mellitus with hyperlipidemia (CMS/HCC) (Primary Dx); Morbid obesity (CMS/HCC); BETSY (obstructive sleep apnea); Polyneuropathy associated with underlying disease (CMS/HCC); Spondylosis of lumbar region without myelopathy or radiculopathy; Acute torn meniscus of knee, right, sequela 11/22/2024 Travel 11/21/2024 Telephone [facility] [address] [place] [address] Sofia Mitchell ANP CHART PREP 11/20/2024 Refill [facility] [address] [place] [address] Rut Branham MD Uncomplicated opioid dependence (CMS/HCC) 11/18/[address] [address] Lela Witt, director of neurology Compliance 11/18/[address] [address] Francy Kebede MA vascular appointment 11/08/2024 Patient Outreach [facility] [address] [place] [address] Sofia Mitchell ANP Care Coordination (C3/CHW AMANDA Mccain [facility] f/u_lvm ) 11/08/2024 Patient Outreach [facility] [address] [place] [address] Sofia Mitchell ANP Care Coordination (C3 f/u call- LVM) 10/31/2024 Patient Outreach [facility] [address] [place] [address] Sofia Mitchell ANP Care Coordination (C3 f/u call) 10/30/2024 Refill [facility] [address] [place] [address] Sofia Mitchell ANP Chronic low back pain without sciatica, unspecified back pain laterality from Last 3 Months Immunizations Immunization Administration [...] Sign Reading Time Taken Comments Blood Pressure 116/72 01/09/2025 10:53 AM EDT Pulse 68 01/09/2025 10:53 AM EDT Temperature 36.2 C (97.2 F) 10/11/2024 9:33 AM EDT Respiratory Rate 18 01/09/2025 10:53 AM EDT Oxygen Saturation 97% 01/09/2025 10:53 AM EDT Inhaled Oxygen Concentration - - Weight 173 kg (382 lb) 01/09/2025 10:53 AM EDT Height 165.1 cm (5' 5 ) 01/09/2025 10:53 AM EDT Body Mass Index 63.57 01/09/2025 10:53 AM EDT Plan of Treatment Upcoming Encounters Date Type Department Care Team (Late st Contact Info) Description 02/06/2025 2:00 PM EDT Office Visit [facility] [address] [place] [address] Rut Branham MD [address] [place] [address] 02/17/2025 11:00 AM EDT Clinical Support [address] [address] 03/27/2025 9:00 AM EDT Office Visit [address] [address] Sofia Mitchell ANP [address] [place] [address] 04/03/2025 3:00 PM EST Office Visit [address] [address] Rut Branham MD [address] [place], [place] [phone] Health Maintenance Due Date Last Done Comments Dental Oral Exam 1980 Dental Prophylaxis 1980 Dental X-Ray: Bitewings 1981 Dental X-Ray: Full Mouth 1981 Diabetes: Foot Exam 11/14/1991 Family Planning (PISQ) 1996 HPV Vaccines (1 - Male 3-dose series) 1996 Pneumococcal Vaccine: Pediatrics (0 to 5 Years) and At-Risk Patients (6 to 49) Years (1 of 2 - PCV) 2000 Hepatitis B Vaccines (2 of 3 - 19+ 3-dose series) 11/14/2023 10/17/2023 COVID-19 Vaccine (3 - 2024- season) 2025 12/29/2020, 12/10/2020 Influenza Vaccine (#1) 2025 2, 02/27/2012, 01/27/2011, Additional history exists Lipid Panel 04/24/2025 04/24/2024, 06/14/2023 Diabetes: Hemoglobin A1C 07/12/2025 025, 10/08/2024, 07/10/2024, Additional history exists Depression Screening 10/04/2025 10/04/2024, 10/05/19 25 SDOH Screening 10/04/2025 10/04/2024 Alcohol/Substance Use Screening 10/08/2025 10/08/2024 Disability Screening 10/08/2025 10/08/2024 Tobacco Screening 01/09/2026 01/09/2025 Eye Exam 06/27/2026 06/27/2024, 05/31, 06/27/2024, Additional history exists Zoster Vaccines (1 of 2) 11/14/2031 DTaP/Tdap/Td Vaccines (3 - Td or Tdap) 10/16/2033 10/17/2023, 03/15/2011 RSV Patients and Patients Aged 60 years or older (1 - 1-dose 75+ series) 2056 HIV Screening Completed 12/13/2023, 12/16/2021 Hepatitis C Screening Completed 12/12/2024 , 07/03/2024, 10/11/2023, Additional history exists HIB Vaccines Aged Out No longer eligi [...] Name Priority Date/Time Associated Diagnosis Comments US BLADDER Urgent 01/10/2025 9:48 AM EDT Urinary retention POCT GLYCATED HEMOGLOBIN, TOTAL Routine 01/09/2025 10:56 AM EDT Type 2 diabetes mellitus with hyperlipidemia (CMS/HCC) POCT GLUCOSE Routine 01/09/2025 10:55 AM EDT Type 2 diabetes mellitus with hyperlipidemia (CMS/HCC) HEPATITIS C AB W/REFL TO HCV RNA, QN, PCR Routine 12/12/2024 1:48 PM EDT Opioid type dependence, continuous (CMS/HCC) HEPATITIS B SURFACE ANTIGEN, EIA Routine 12/12/2024 1:48 PM EDT Opioid type dependence, continuous (CMS/HCC) HEPATITIS B SURFACE ANTIBODY, QUALITATIVE Routine 12/12/2024 1:48 PM EDT Opioid type dependence, continuous (CMS/HCC) HEPATITIS B CORE AB TOTAL Routine 12/12/2024 1:48 PM EDT Opioid type dependence, continuous (CMS/HCC) HEPATITIS A ANTIBODY, TOTAL Routine 12/12/2024 1:48 PM EDT Opioid type dependence, continuous (CMS/HCC) HEPATIC FUNCTION PANEL Routine 12/12/2024 1:48 PM EDT Opioid type dependence, continuous (CMS/HCC) POCT RASMES-14 URINE DRUG SCREEN Routine 12/12/2024 1:32 PM EDT Opioid type dependence, continuous (CMS/HCC) LIPID PANEL, STANDARD Routine 04/24/2024 11:23 AM EST HIV 1/2 ANTIGEN/ANTIBODY, FOURTH GENERATION W/RFL Routine 12/13/2023 11:48 AM EDT Elevated erythrocyte sedimentation rate 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 [address] Ultrasound Report Signed Patient: Ross Navarrete MR#: [id number] : 1980 Acct:[id number] Age/Sex: 44 / M ADM Date: 01/09/25 Loc: HO.HMGCX Attending Dr: Sofia Mitchell ENGINEERING ASSISTANT Ordering Physician: SOFIA MITCHELL NP Date of Service: 01/09/25 Procedure(s): US bladder Accession Number(s): [id number] cc: SOFIA MITCHELL NP CLINICAL HISTORY: ?urinary retention US Urinary Bladder Comparison: None Findings: The urinary bladder is unremarkable. Prevoid volume: 250 mL Ureteral jets are not visualized bilaterally. IMPRESSION: Normal urinary bladder This document has been electronically signed by: Ranjan Montiel MD on 01/10/2025 09:48:52 Dictated By: Ranjan Montiel MD Signed By: <Electronically signed by Ranjan Montiel MD in OV> 01/10/25948 DD/ 7 TD/TT: 01/10/25947 Photo Mask Pattern Generator: Procedure Note Donotuseinterpreter, Image - 01/10/2025 [facility] Primary Care [facility] [place] [address] Ultrasound Report Signed Patient: Ross Navarrete LMR#: [id number] : 1980Acct:[id number] Age/Sex: 44 / MADM Date: 01/09/25 Loc: .HMGCX Attending Dr: Sofia Mitchell NP Ordering Physician: SOFIA MITCHELL NP Date of Service: 01/09/25 Procedure(s): US bladder Accession Number(s): [id number] cc: SOFIA MITCHELL NP CLINICAL HISTORY: ?urinary retention US Urinary Bladder Comparison: None Findings: The urinary bladder is unremarkable. Prevoid volume: 250 mL Ureteral jets are not visualized bilaterally. IMPRESSION: Normal urinary bladder This document has been electronically signed by: Ranjan Montiel MD on 01/10/2025 09:48:52 Dictated By: Ranjan Montiel MD Signed By: <Electronically signed by Ranjan Montiel MD in OV> 01/10/25948 DD/ 7 TD/TT: 01/10/25947 Photo Mask Pattern Generator: us Sofia Mitchell ANP IMG US PROCEDURES Final Result * (ABNORMAL) POCT HGB A1C (01/09/2025 10:56 AM EDT) Hemoglobin A1C 5.8(A) 4.0 - 5.7 % QC Media Lot # [id number] Lot# Expiration Date 575 Blood 01/09/2025 10:5 6 AM EDT Result Guillermo RAHMAN POINT OF CARE TEST ENTER/EDIT OR DERABLES Final Result * POCT Glucose (01/09/2025 10:55 AM EDT) Glucose Blood, POC 102 60 - 200 mg/dL QC Media Lot # [id number] Lot# Expiration Date 051,641 Blood Capillary blood specimen / Unknown 01/09/2025 10:55 AM EDT Result Guillermo RAHMAN POINT OF CARE TEST ENTER/EDIT OR DERABLES Final Result * Hepatitis C Antibody with Reflex to HCV, RNA, Quantitative, Real-Time PCR (12/12/2024 1:48 PM EDT) Hepatitis C Antibody Nonreactive Nonreactive [facility] Comment:Antibodies to HCV no t detected; does not exclude early acuteHCV infection. Blood Venous blood specimen / Unknown 12/12/2024 1:48 PM EDT 12/12/2024 4:06 PM EDT us Rut Branham MD LAB BLOOD ORDERABLES Final R esult Performing Organization Address City/[facility]/ZIP Co de Phone Number [facility] [address] [place] [phone] * Hepatitis A Antibody, Total (12/12/2024 1:48 PM EDT) Hepatitis A Antibody IgG Nonreactive Nonreactive [facility] Blood Venous blood specimen / Unknown 12/12/2024 1:48 PM EDT 12/12/2024 4:06 PM EDT us Rut Branham MD LAB BLOOD ORDERABLES Final R esult [facility] [address] [place] [phone] * Hepatitis B surface antigen, EIA (12/12/2024 1:48 PM EDT) Hepatitis B Surface Ag Negative Negative [facility] Blood Venous blood specimen / Unknown 12/12/2024 1:48 PM EDT 12/12/2024 4:06 PM EDT Rut Branham MD LAB BLOOD ORDERABLES Final R esult Performing Organization Address [facility] Co de Phone Number [facility] [address] [place] [phone] * Hepatitis B Core Antibody, Total (12/12/2024 1:48 PM EDT) Pathologist [facility] Hepatitis B Core Antibody Nonreactive Nonreactive [facility] Blood Venous blood specimen / Unknown 12/12/2024 1:48 PM EDT 12/12/2024 4:06 PM EDT us Rut Branham MD LAB BLOOD ORDERABLES Final R esult Performing Organization Address [facility] Co de Phone Number [facility] [address] [place] [phone] * Hepatitis B Surface Antibody, Qualitative (12/12/2024 1:48 PM EDT) ~Hepatitis B Surface Antibody NONREACTIVE Nonreactive [facility] Comment:Nonreactive: < 8.00 mIU/mL Blood Venous blood specimen / Unknown 12/12/2024 1:48 PM EDT 12/12/2024 4:06 PM EDT us Rut Branham MD LAB BLOOD ORDERABLES Final R esult Performing Organization Address [facility] Co de Phone Number [facility] [address] [place] [phone] * Hepatic Function Panel (12/12/2024 1:48 PM EDT) [facility] Bilirubin, Total 0.8 0.0 - 1.0 mg/dL [facility] Bilirubin, Direct 0.3 0.0 - 0.5 mg/dL [facility] Aspartate Amino Transferase 31 5 - 37 U/L [facility] Alanine Aminotransferase 22 0 - 40 U/L [facility] Total Protein 7.8 6.5 - 8.0 g/dL [facility] Albumin Level 4.2 3.5 - 5.0 g/dL [facility] Alkaline Phosphatase 69 39 - 117 U/L [facility] Blood Venous blood specimen / Unknown 12/12/2024 1:48 PM EDT 12/12/2024 4:06 PM EDT us Rut Branham MD LAB BLOOD ORDERABLES Final R esult [facility] [address] [place] [phone] * (ABNORMAL) POCT RAMSES-14 Urine Drug Screen (12/12/2024 1:32 PM EDT) [facility] THC Positive(A) Negative Cocaine Screen, Urine Negative Negative Opiate Screen, Urine Negative Negative Methamphetamine Screen Urine Negative Negative Amphetamine Screen, Urine Negative Negative Benzodiazepines Screen, Urine Negative Negative Barbiturate Screen, Urine Negative Negative Methadone Screen, Urine Negative Negative Buprenophine Screen, Urine Positive(A) Negative TCA, Urine Negative Negative MDMA Urine Negative Negative ng/mL Oxycodone Screen, Urine Negative Negative Phencyclidine (PCP), Urine Negative Negative Fentanyl, Urine Negative Negative Urine Urine specimen obtained by clean catch procedure / Unknown 12/12/2024 1:32 PM EDT us Rut Branham MD POINT OF CARE TEST ENTER/YI T ORDERABLES Final Result * Lipid Panel, Standard (04/24/2024 11:23 AM EST) Triglycerides 132 <150 mg/dL [facility] Comment:Desirable Triglyceri de: less than 150 mg/dLBorderline High Triglyceride 150-199 mg/dLHigh Triglyceride: 200-499 mg/dLVery High Triglyceride: greater than or equal to 5OO mg/dL Cholesterol 165 <200 mg/dL [facility] Comment:Desirable Cholestero l: less than 200 mg/dLBorderline High Cholesterol: 200-239 mg/dLHigh Cholesterol: greater than 239 mg/dL LDL Cholesterol Calculated 91 <100 mg/dL [facility] Comment:Desirable LDL: less than 100 mg/dLNear Optimal/Above Optimal LDL: 110- 129 mg/dLBorderline High LDL: 130-159 mg/dLHigh LDL: 160-189 mg/dLVery High LDL: greater than or equal to 190 mg/dL HDL Cholesterol 48 >40 mg/dL [facility] Comment:Desirable HDL: great er than 40 mg/dL Note: This HDL assay may give artificially low results in patients with liver disease. 04/24/2024 11:2 3 AM EST 04/24/2024 11:23 AM EST us Generic External Data Provider LAB BLOOD ORDERAB LES Final Result [facility] [address] [place] [phone] * HIV-1/2 Antigen and Antibodies, Fourth Generation, with Reflexes (12/13/2023 11:48 AM EDT) HIV AB/AG Nonreactive Nonreactive [facility] Comment:HIV-1 p24 Ag and/or HIV-1/HIV-2 Ab not detected.A test result that is nonreactive does not exclude thepossibility of exposure to or infection with HIV-1 and/orHIV-2. Nonreactive results in this assay for individualswith prior exposure to HIV-1 and/or HIV-2 may be due toantigen and antibody levels that are below the limit ofdetection of this assay.The interclick HIV Ag/Ab Combo assay result andsupplemental assay results should be interpreted inconjunction with the patient's clinical presentation,history and other laboratory results. If the results areinconsistent with clinical evidence, additional testing issuggested to confirm the result. Blood Venous blood specimen / Unknown 12/13/2023 11:48 AM EDT 12/13/2023 12:51 PM EDT [facility] LAB BLOOD ORDERABLES Final Resul t [facility] [address] [place] [phone] [phone] from Last 3 Months or Most Recently Relevant to Health Maintenance Insurance [facility] STAND ADULT Care Teams Mine Production Engineer Relationship Specialty Start Date End Date Sofia Mitchell ANP [address] [place] [address] PCP - General Family Medicine 01/18/22 Real Gomez MD [address] [place] [address] 3rd [place], [place] Cardiology 10/01/24
--- OUTSIDE RECORDS SUMMARY | 2025-01-29 10:29 | XMS_ITS | Encounter Summary ---
Author Organization [employer] Address [address] [facility] 7t [place] [address] Care Team Providers Care Cooker Process Cheese Name Role Phone Naheed Zaman Primary Care Provider [phone] Real Gomez MD Unavailable Encounter Details Date Type Department Care Team ([facility] Contact Info) Description 07/28/2022 Abstract [facility] ADULT DENTAL [address] [place] [address] Zay Schmidt DDS [address] [place] [address] Social History Tobacco Use Types Packs/Day Years [...] Upcoming Encounters Date Type Department Care Team ([facility] Contact Info) Description 02/06/2025 2:00 PM EDT Office Visit [facility] MEDICINE [address] [place] [address] Rut Branham MD [address] [place] [address] 02/17/2025 11:00 AM EDT Clinical Support [facility] [place] [address] 03/27/2025 9:00 AM EDT Office Visit [address] [address] [place] [address] 04/03/2025 3:00 PM EST Office Visit [address] [place] [address] [place] [address] documented as of this encounter Visit Diagnoses Not on filedocumented in this encounter Care Teams Cooker Process Cheese Relationship Specialty Start Date End Date Naheed Zaman ANP [address] [place], [place] [address] [facility] [place] [address] PCP - General Family Medicine 01/18/22 Real Gomez MD [address] [place] [address] 3rd [place] [address] Cardiology 10/01/24 documented as of this encounter
--- OUTSIDE RECORDS SUMMARY | 2025-01-29 10:29 | XMS_ITS | Encounter Summary ---
Author Organization [employer] Address [address] [facility] 7t [place] [address] Care Team Providers Care Machine Builder Name Role Phone Naheed Zaman Primary Care Provider [phone] Real Gomez MD Unavailable Reason for Visit * Reason Onset Date Comments Med Refill 10/30/2024 Encounter Details Date Type Department Care Team (Late st Contact Info) Description 10/30/2024 Refill [facility] MED[facility]INE [address] [place] [address] Naheed Zaman ANP [address] [place] [address] Chronic low back pain without sciatica, unspecified [...] 02/06/2025 2:00 PM EDT Office Visit [address] [address] Rut Branham MD [address] [place] [address] 02/17/2025 11:00 AM EDT Clinical Support [address] [address] 03/27/2025 9:00 AM EDT Office Visit [address] [address] Naheed aZman ANP [address] [place] [address] 04/03/2025 3:00 PM EST Office Visit [address] [address] Rut Branham MD 230 [place] [address] documented as of this encounter Visit Diagnoses Diagnosis Chronic low back pain without sciatica, unspecified back pain laterality documented in this encounter Additional Health Concerns Assessment Noted Time PHQ-9 Depression Total Score: 7 10/05/19 25 2:06 PM EDT documented as of this encounter Care Teams Machine Builder Relationship Specialty Start Date End Date Naheed Zaman ANP [address] [place] [address] PCP - General Family Medicine 01/18/22 Real Gomez MD [address] [place] [address] 3rd [place] [address] Cardiology 10/01/24 documented as of this encounter
--- OUTSIDE RECORDS SUMMARY | 2025-01-29 10:29 | XMS_ITS | Encounter Summary ---
Author Organization [employer] Address [address] [facility] 7t [place] [address] Care Team Providers Care Methods Specialist Engineer Name Role Phone Naheed Zaman Primary Care Provider [phone] Real Gomez MD Unavailable Reason for Visit * Reason Onset Date Comments Durable Medical Equipment 10/04/2022 Encounter Details Date Type Department Care Team (Late st Contact Info) Description 10/04/[address] [facility] MEDICINE [address] [place] [address] Naheed Zaman ANP 230 [place] [address] Durable Medical Equipment Social History Tobacco Use [...] for Compressions socks. Please contact pt at [phone] documented in this encounter Plan of Treatment Upcoming Encounters Date Type Department Care Team (Late st Contact Info) Description 02/06/2025 2:00 PM EDT Office Visit [address] [address] [place] [address] 02/17/2025 11:00 AM EDT Clinical Support [address] [address] 03/27/2025 9:00 AM EDT Office Visit [address] [address] Naheed Zaman ANP [address] [place] [address] 04/03/2025 3:00 PM EST Office Visit [facility] [place] [address] Rut Branham MD [facility] [place] [address] documented as of this encounter Visit Diagnoses Not on filedocumented in this encounter Care Teams Methods Specialist Engineer Relationship Specialty Start Date End Date Naheed Zaman ANP [address] [place], [place] [address] [place] [address] PCP - General Family Medicine 01/18/22 Real Gomez MD [address] [place] [address] 3rd [place] [address] Cardiology 10/01/24 documented as of this encounter
--- OUTSIDE RECORDS SUMMARY | 2025-01-29 10:29 | XMS_ITS | Encounter Summary ---
Author Organization [email or web address] Address [address] 7t [place] [address] Care Team Providers Care Putty Mixer Name Role Phone Naheed Zaman Primary Care Provider [phone] Real Gomez MD Unavailable Encounter Details Date Type Department Care Team ([facility] st Contact Info) Description 01/28/2025 Patient Outreach [facility] [address] [place] [address] Naheed Zaman ANP [address] [place] [address] Social History Tobacco Use Types Packs/Day Years [...] Description 02/06/2025 2:00 PM EDT Office Visit [facility] [address] [place] [address] Rut Branham MD [address] [place] [address] 02/17/2025 11:00 AM EDT Clinical Support [address] [address] 03/27/2025 9:00 AM EDT Office Visit [facility] [address] [place] [address] Naheed Zaman ANP [address] [place] [address] 04/03/2025 3:00 PM EST Office Visit [facility] [address] [place] [address] Rut Branham MD [address] [place] [address] documented as of this encounter Visit Diagnoses Not on filedocumented in this encounter Additional Health Concerns Assessment Noted Time PHQ-9 Depression Total Score: 7 10/05/19 25 2:06 PM EDT documented as of this encounter Care Teams Putty Mixer Relationship Specialty Start Date End Date Naheed Zaman ANP [address] [place] [address] PCP - General Family Medicine 01/18/22 Real Gomez MD [address] [place] [address] 3rd [place] [address] Cardiology 10/01/24 documented as of this encounter
--- OUTSIDE RECORDS SUMMARY | 2025-01-29 10:29 | XMS_ITS ---
Author Organization [facility] Address [address] [facility] 7t [place] [address] Care Team Providers Care Pad Extractor Tender Name Role Phone Naheed Zaman Primary Care Provider [phone] Real Gomez MD Unavailable CM Complex Status:Enrolled (Active) Start date:09/13/2024 Enrollment date:10/04/2024 Enrollment reason:ADT Feed Overview ED- Pt went to [facility] ED on 09/12/24. Case Team Name Relationship Phone Rut Patel RN(Responsible Staff) Registered Nurse [phone] Continued Care and Services Coordination
--- OUTSIDE RECORDS SUMMARY | 2025-01-29 10:29 | XMS_ITS | Encounter Summary ---
Author Organization [employer] Address [address] [facility] [address] 7t [place] [address] Care Team Providers Care Taxi Cab Driver Name Role Phone Naheed Zaman Primary Care Provider [phone] Real Gomez MD Unavailable Reason for Visit * Reason Onset Date Comments [facility] 12/12/2023 Encounter Details Date Type Department Care Team ([facility] Contact Info) Description 12/12/2023 Telephone [facility] ADULT DENTAL [address] [place] [address] Zay Schmidt DDS 230 [place], [place] [phone] [facility] Social History Tobacco Use Types Packs/Day [...] other people? Extremely difficult 12/15/2023 3:51 PM MAYAT Vee Gold * Over the last 2 [...] to sit still 0 12/15/2023 3:52 PM MAYAT Vee Gold Becoming easily annoyed or irritable 3 11/26 3:52 PM EDT Vee Gold Feeling afraid as if somethi ng awful might happen 3 12/15/2023 3:52 PM EDT Vee Gold MICHAEL-7 Total Score 18 12/15/2023 3:52 PM Vee Moss * Over the past 2 weeks, how often have you been bothered by any of the following problems? Question Answer Date of Assessment Author Little interest or pleasure in doing things Nearly every day 12/15/2023 3:51 PM Vee Moss Feeling down, depressed, or hopeless Nearly every day 12/15/2023 3:51 PM EDT Vee Gold Trouble falling or staying asleep, or sleeping too much Nearly every day 12/15/2023 3:51 PM Vee Moss Feeling tired or having little energy Nearly every day 12/15/2023 3:51 PM Vee Moss Poor appetite or overeating Nearly every day 3:51 PM Vee Moss Feeling bad about yourself - or that you are a failure or have let yourself or your family down Nearly every day 12/15/2023 3:51 PM Vee Moss Trouble concentrating on things, such as reading the newspaper or watching television Nearly every day 12/15/2023 3:51 PM Vee Moss Moving or speaking so slowly that other people could have noticed? Or the opposite - being so fidgety or restless that you have been moving around a lot more than usual. Nearly every day 12/15/2023 3:51 PM Vee Moss Thoughts that you would be better off [...] relief. DR Anne Robins office phone number [phone] documented in this encounter Plan of Treatment Upcoming Encounters Date Type Department Care Team (Late st Contact Info) Description 02/06/2025 2:00 PM EDT Office Visit [address] [address] Rut Branham MD [address] [place] [address] 02/17/2025 11:00 AM EDT Clinical Support [address] [address] 03/27/2025 9:00 AM EDT Office Visit [address] [address] Naheed Zaman ANP [address] [place] [address] 04/03/2025 3:00 PM EST Office Visit [facility] MED[facility] 230 [facility] [place] [address] Rut Branham MD 230 [place] [address] documented as of this encounter Visit Diagnoses Not on filedocumented in this encounter Additional Health Concerns Assessment Noted Time PHQ-9 Depression Total Score: 23 024 3:25 PM EDT documented as of this encounter Care Teams Taxi Cab Driver Relationship Specialty Start Date End Date Naheed Zaman ANP 230 [facility] [place] [address] PCP - General Family Medicine 01/18/22 Real Gomez MD [address] [place] [address] 3rd [place] [address] Cardiology 10/01/24 documented as of this encounter
--- OUTSIDE RECORDS SUMMARY | 2025-01-29 10:29 | XMS_ITS ---
Author Organization [employer] Address [address] [facility] 7t [place] [address] Care Team Providers Care Animal Laboratory Helper Name Role Phone Naheed Zaman Primary Care Provider [phone] Real Gomez MD Unavailable CHW Complex Status:Enrolled (Active) Start date:09/13/2024 Enrollment date:10/04/2024 Enrollment reason:ADT Feed Overview ED- [facility] [place] [facility] [place]. Case Team Name Relationship Phone Josh Kebede(Responsible Staff) [facility] Worker [phone] Continued Care and Services Coordination
--- OUTSIDE RECORDS SUMMARY | 2025-01-29 10:29 | XMS_ITS | Encounter Summary ---
Author Organization [employer] Address [address] [facility] 7t [place] [address] Care Team Providers Care Stage Rigger Name Role Phone Naheed Zaman Primary Care Provider [phone] Real Gomez MD Unavailable Reason for Visit * Reason Onset Date Comments Med Refill 01/03/2025 Encounter Details Date Type Department Care Team (Late st Contact Info) Description 01/03/2025 Refill [facility]INE 230 [place] [address] Rut Branahm MD [address] [place] [address] Uncomplicated opioid dependence (CMS/HCC) Social History Tobacco [...] Description 02/06/2025 2:00 PM EDT Office Visit [address] [address] Rut Branham MD [address] [place] [address] 02/17/2025 11:00 AM EDT Clinical Support [address] [address] 03/27/2025 9:00 AM EDT Office Visit [address] [address] Naheed Zaman ANP [address] [place] [address] 04/03/2025 3:00 PM EST Office Visit [address] [address] Rut Branham MD [address] [place] [address] documented as of this encounter Visit Diagnoses Diagnosis Uncomplicated opioid dependence (CMS/HCC) documented in this encounter Additional Health Concerns Assessment Noted Time PHQ-9 Depression Total Score: 7 10/05/19 25 2:06 PM EDT documented as of this encounter Care Teams Stage Rigger Relationship Specialty Start Date End Date Naheed Zaman ANP 230 [place] [address] PCP - General Family Medicine 01/18/22 Real Gomez MD [address] [place] [address] 3rd [place] [address] Cardiology 10/01/24 documented as of this encounter
--- OUTSIDE RECORDS SUMMARY | 2025-01-29 10:29 | XMS_ITS | Clinical Summary ---
Author Organization [employer] [facility] Address [facility] [address] [place] [address] Phone Care Team Providers Care Associate Trainer Name Role Phone Naheed Zaman NP Primary Care Provider [phone] Social History Tobacco Use Types Packs/Day Years [...] Description 02/05/2025 3:00 PM EDT Office Visit [facility] Medical Weight Management [address] [address] Sri Andrade MD [address] [address] [email or web address] Health Maintenance Due Date Last Done Comments Adult Td,Tdap Booster 1981 LIPID PANEL 1981 DEPRESSION SCREENING 1993 SMOKING Hx and SMOKELESS TOB ACCO SCREENING 1994 HEPATITIS C SCREENING 11/14/1999 HIV ONE-TIME SCREENING (18-6 5 YEARS) 11/14/1999 INFLUENZA VACCINE (#1) 2024 COVID-19 VACCINE ( - 2023-2 5 season) 2025 HEPATITIS A VACCINES Aged Out No long [...] topic Medical Devices Not on file Insurance [facility] C3 ACO [facility] C3 ACO Care Teams Associate Trainer Relationship Specialty Start Date End Date Naheed Zaman NP [address] [place] [phone] PCP - General Nurse Practitioner 01/02/25 Additional Source Comments The information contained in this document represents components of the legal health record. It is not the complete legal health record.[facility]
== END 2025-01-29 11:33 | disposition home or self-care (01) ==
LOC: HO.HSMC 09:35
PROVIDERS: PCP Nurse Practitioner Primary Care; Visit Provider Physician Assistant Medical
DX: G47.30 Sleep apnea, unspecified (principal); E66.01 Morbid (severe) obesity due to excess calories; G25.81 Restless legs syndrome; D50.9 Iron deficiency anemia, unspecified
CPT/HCPCS: 99214

== ENCOUNTER → 2025-01-29 09:35 | Outpatient (BNVA) | payer MEDICAID, SELFPAY | PROVIDERS: PCP Nurse Practitioner Primary Care; Visit Provider Physician Assistant Medical | DX: G25.81 Restless legs syndrome (principal); E66.01 Morbid (severe) obesity due to excess calories; G47.30 Sleep apnea, unspecified; D50.9 Iron deficiency anemia, unspecified; Z99.89 Dependence on other enabling machines and devices | CPT/HCPCS: 99212 ==

== ENCOUNTER 2025-02-04 11:58 | Outpatient (AMB) | payer MEDICAID, SELFPAY ==
--- NOTE | 2025-02-04 12:33 | A.OFFVIS_ITS ---
Vital Signs 02/04/25 12:39 Height 5 ft 5 in Weight 393 lb 8.402 oz BMI 65.5 BP 134/82 Blood Pressure Location Lt brachial Position Sitting Pulse 66 Pulse Source Pulse Oximeter Pulse Oximetry (%) 97 Oxygen Delivery Method Room Air Intake Visit Reasons: Polyarthralgia *Fibromyalgia *Elevated C-reactive Intake Note: Patient presents for Polyarthralgia, Fibromyalgia and elevated C-reactive follow up. National Sales Manager Required: Yes National Sales Manager Language: School Cafeteria Cook Head Services: National Sales Manager Present National Sales Manager Name: Avtar [id number] Information Interpreted: non-clinical & clinical Allergies seafood Allergy (Severe, Verified 02/04/25 12:39) Swelling Medication List - Last Reconciled 02/04/25 by Lorenza Up MD acetaminophen (Acetaminophen Extra Strength) 500 mg PO Q6H PRN adalimumab (Humira(CF) Pen) 40 mg (0.4 mL) subcut QWEEK ammonium lactate 12% topical ammonium lactate 12% appl topical atorvastatin 10 mg PO BEDTIME betamethasone valerate 0.1% appl topical buprenorphine-naloxone 8-2 mg (Suboxone) 1 film sublingual TID cholecalciferol (vitamin D3) 50 mcg PO DAILY clotrimazole 1% appl topical BID cyclobenzaprine 10 mg PO TID 30 days famotidine 20 mg PO BEDTIME flash glucose sensor (FreeStyle Casey 2 Sensor kit) As directed fluoxetine 60 mg PO DAILY insulin glargine (Lantus Solostar U-100 Insulin) 55 units subcut BEDTIME insulin lispro (Humalog KwikPen (U-100) Insulin) 35 units subcut TID lidocaine 5% 1 patch topical DAILY PRN lisinopril 40 mg PO DAILY magnesium oxide 400 mg PO DAILY 2 months MDD 400mg meloxicam 15 mg PO DAILY 30 days pregabalin 50 mg PO BEDTIME pyridoxine (vitamin B6) 250 mg PO DAILY 2 months MDD 250mg semaglutide (Ozempic) mg subcut sodium,potassium,mag sulfates 17.5-3.13-1.6 gram (Suprep Bowel Prep Kit) DILUTE as per instructions given zinc oxide 40% (Diaper Rash) topical HPI Comments Details: Patient is a 44 y.o. 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 who presents for follow up Interval History: Patient last seen 10/02/24 with me - On Humira 40mg SC every 2 weeks - Noted some improvement but still feels there is some residual sx - Humira increased to weekly Today - On Humira 40mg SC every week - Complaining of pain in his neck all the way down to his low back - Does not feel increasing the Humira weekly did much Rheumatologic History: Patient established care 02/2024 for evaluation of elevated CRP in the setting of polyarthalgia Exam did not show specific evidence of synovitis but he did have reduced flexibility of the spine (unsure if this was due to his weight) Further testing including HLA B27 was negative however his MRI showed tenosynovitis bilaterally Given this he was started on a trial of Humira 05/2024 He also had a component of fibromyalgia for which he is on gabapentin 100mg at night - self discontinued due to drowsiness Current Rheumatology Medication(s): Humira 40mg SC every other week PFSH Medical History Seronegative spondyloarthropathy Vitamin D deficiency Elevated C-reactive protein (CRP) Fibromyalgia Polyarthralgia Narcotic dependence Thrombocytopenia Carpal tunnel syndrome Sleep apnea Pre-op evaluation Hx of migraines BETSY on CPAP Pre-op evaluation HTN (hypertension), benign Insulin dependent type 1 diabetes mellitus Morbid obesity Shoulder dislocation Diabetes Surgical History Hx of colonoscopy History of esophagogastroduodenoscopy (EGD) Hx of hernia repair Hx of appendectomy Family History Mother No problems noted. Brother No problems noted. Daughter No problems noted. Daughter No problems noted. Daughter No problems noted. Son No problems noted. Son No problems noted. 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 Review of Systems Const Details: Review of Systems Constitutional: Denies fever, chills, weight loss ENT: Denies vision changes, eye pain or eye redness, dental caries, dry mouth GI: Denies nausea, vomiting, diarrhea, abdominal pain, change in BM Pulm: Denies SOB, HIDALGO, hemoptysis, wheezing Cards: Denies chest pain, palpitations Skin: Denies Raynaud's, rash, nail changes, photosensitivity, PROCESS CONSULTANT: Denies headaches, weakness, paresthesias, recurrent falls MSK: as per HPI All other systems reviewed and are unremarkable except noted above Physical Exam Exam Exam: Vital signs reviewed Physical Examination CONSTITUITIONAL Patient alert and cooperative. Well appearing and in no apparent painful distress MSK Hands * Right Hand: Able to make a fist. No swelling or tenderness to palpation of the MCPs, PIPs or DIPs. No deformities noted. * Left Hand: Able to make a fist. No swelling or tenderness to palpation of the MCPs, PIPs or DIPs. No deformities noted. Wrists * Right Wrist: Full ROM to flexion and extension. No swelling or TTP * Left Wrist: Full ROM to flexion and extension. No swelling or TTP Elbows * Right Elbow: Full ROM. No swelling or TTP. No TTP of the medial epicondyle. No TTP of the lateral epicondyle * Left Elbow: Full ROM. No swelling or TTP. No TTP of the medial epicondyle. No TTP of the lateral epicondyle Shoulders * Right shoulder: Full ROM. No swelling noted. No TTP of the AC joint. No TTP of the subacromial bursa. No TTP of the posterior shoulder * Left shoulder: Full ROM. No swelling noted. No TTP of the AC joint. No TTP of the subacromial bursa. No TTP of the posterior shoulder Hip bursa: Tenderness to palpation bilaterally Knees * Right knee: Full ROM. No swelling noted. No TTP of the knee joint line. No TTP of pes anserine bursa * Left knee: Full ROM. No swelling noted. No TTP of the knee joint line. No TTP of pes anserine bursa. Ankles * Right ankle: Good ankle dorsiflexion and plantar flexion. No swelling. No TTP of the ankle joint * Left ankle: Good ankle dorsiflexion and plantar flexion. No swelling. No TTP of the ankle joint Feet * Right foot: Negative squeeze test * Left foot: Negative squeeze test Tender points? * Tenderness to palpation of the bilateral trapezius, supraspinatus, anterior costochondral junctions, bilateral suboccipital muscle insertions SKIN No rashes Vital Signs: Last Vital Signs Pulse 66 02/04/25 12:39 BP 134/82 02/04/25 12:39 Pulse Ox 97 02/04/25 12:39 Oxygen Delivery Method Room Air 02/04/25 12:39 BMI result Body Mass Index 65.5 Results Reviewed Results Reviewed: Laboratory Tests 09/12/24 10:22 WBC 8.6 RBC 4.71 Hgb 13.3 L Hct 40.1 L Plt Count 134 L Sodium 136 Potassium 4.1 Chloride 102 Carbon Dioxide 25 BUN 23 H Creatinine 1.18 AST 24 ALT 22 Alkaline Phosphatase 75 Total Protein 7.8 Laboratory Tests 04/24/24 11:23 Rheumatoid Factor < 13.0 Cycl Citrul Peptide IgG <16 COLLETTE Screen NEGATIVE HLA-B27 Negative Hand MRI Left 03/2024 FINDINGS: No acute fracture or dislocation. Normal carpal alignment. Intact articular cartilage. No concerning lytic or blastic osseous lesion. A small amount of fluid within the extensor carpi radialis brevis, extensor carpi radialis longus, and minimally within the extensor digitorum tendon sheaths, consistent with minimal tenosynovitis. A transverse tendon tear or tendon retraction. Intact median nerve. Intact collateral ligaments. No soft tissue mass or fluid collection. No significant joint effusion. Hand MRI Right 03/2024 FINDINGS: No acute fracture or dislocation. No marrow edema or evidence of acute osseous injury. Normal carpal alignment. No concerning lytic or blastic osseous lesion. Minimal degenerative arthritis at the 3rd carpometacarpal joint. No periarticular erosion or evidence of infectious or inflammatory arthropathy. Trace fluid within the extensor carpi radialis brevis and extensor carpi radialis longus tendon sheaths, consistent with minimal tenosynovitis. No transverse tendon tear or tendon retraction. Unremarkable median nerve. Grossly intact collateral ligaments. No evidence of acute injury. No soft tissue mass or fluid collection. No significant joint effusion. Assessment & Plan Assessment & Plan (1) Seronegative spondyloarthropathy: Comment: Seronegative RA vs Seronegative spondyloarthropathy Hand MRI with tenosynovitis Humira 05/2024, advanced to weekly 09/2024 - not effective Code(s): M47.819 - Spondylosis without myelopathy or radiculopathy, site unspecified Category: Medical Plan: #Seronegative spondyloarthropathy Patient is a 44 y.o. male with seronegative spondyloarthritis vs seronegative RA as evidence by tenosynovitis noted on the hand MRI. No improvement on Humira. Will try IL 17 inhibitors for presumed ankylosing spondyloarthritis Plan - Stop Humira - Start Cosentyx 150mg SC every week x 5 doses then every 4 weeks - RTC 4 months - Labs before follow up: CBC, CMP, ESR, CRP (2) Fibromyalgia: Code(s): M79.7 - Fibromyalgia Category: Medical Plan: #Fibromyalgia Trying to optimize pregabalin Plan - Increase pregabalin 100mg nightly - Encouraged light exercise and stretches as well as weight loss (3) Long-term current use of secukinumab: Code(s): Z79.620 - terminal make up operator (current) use of immunosuppressive biologic Plan: #terminal make up operator treatment with IL 17 inhibitors: Lizy (Secukinumab)/ Jihan (Ixekizumab) Risks and benefits of IL 17 inhibitors discussed with the patient. Risks include infections, injection site reactions, activation of inflammatory bowel disease. Benefits include improved disease activity. Discussed with patient that if she is feeling sick or having flu-like symptoms she is to hold the medication that week and resolved the following week. Plan I spent 30 minutes reviewing the record and labs, seeing the patient, discussing the treatment plan and documenting in the medical record ? Orders: Orders Erythrocyte Sedimentation Rate 4 Months Z79.899 - Other exterminator termite (current) drug therapy Complete Blood Count Auto Diff 4 Months Z79.899 - Other assisted (current) drug therapy Comprehensive Met. Panel 4 Months Z79.899 - Other assisted (current) drug therapy C Reactive Protein 4 Months Z79.899 - Other assisted (current) drug therapy Medications: New secukinumab (Cosentyx Pen) Loading dose: 150 mg at weeks 0, 1, 2, 3, and 4 150 mg subcut QWEEK 5 mL 0RF M45.9 - Ankylosing spondylitis of unspecified sites in spine secukinumab (Cosentyx Pen) maintenance dose after loading dose 150 mg subcut Q4W 1 mL 5RF M45.9 - Ankylosing spondylitis of unspecified sites in spine Changed From cyclobenzaprine 10 mg PO TID PRN 14 tabs 0RF muscle spasm M79.7 - Fibromyalgia To cyclobenzaprine 10 mg PO TID 90 tabs 5RF muscle spasm 30 days M79.7 - Fibromyalgia From pregabalin 50 mg PO BEDTIME 90 caps 1RF M79.7 - Fibromyalgia To pregabalin 100 mg PO BEDTIME 90 caps 1RF 90 days M79.7 - Fibromyalgia Discontinued adalimumab (Humira(CF) Pen) Discontinued Reason: Doctor's Order 40 mg (0.4 mL) subcut QWEEK 4 ea 5RF M46.90 - Unspecified inflammatory spondylopathy, site unspecified, M47.819 - Spondylosis without myelopathy or radiculopathy, site unspecified Coding Level of Care Code Est Pt Level 4 (85636) Complex EM visit Add On G2211 Diagnoses Seronegative spondyloarthropathy M47.819 Fibromyalgia M79.7 Long-term current use of secukinumab Z79.620
[2025-02-04 12:39] VITALS: BP 134/82; PULSE 66; O2SAT 97; BMI 65.5
--- OUTSIDE RECORDS SUMMARY | 2025-02-04 14:28 | XMS_ITS | Encounter Summary ---
Author Organization [employer] Address [address] [place] [address] Care Team Providers Care Government Sales Manager Name Role Phone Naheed Zaman Primary Care Provider [phone] Real Gomez MD Unavailable Chico Kebede RN Unavailable [phone] Reason for Visit * Reason Comments Med Refill Encounter Details Date Type Department Care Team (Late st Contact Info) Description 09/14/2023 Refill [facility] MEDICINE [address] [place] [address] Dayna Cardenas MD [address] [place] [address] Uncomplicated opioid dependence (CMS/HCC) Social History Tobacco [...] Description 02/06/2025 2:00 PM EDT Office Visit [address] [address] Rut Branham MD [address] [place] [phone] 02/17/2025 11:00 AM EDT Clinical Support [address] [address] 03/27/2025 9:00 AM EDT Office Visit [address] [address] Naheed Zaman ANP [address] [place] [phone] 04/03/2025 3:00 PM EST Office Visit [address] [address] Rut Branham MD [address] [place] [address] documented as of this encounter Visit Diagnoses Diagnosis Uncomplicated opioid dependence (CMS/HCC) documented in this encounter Additional Health Concerns Assessment Noted Time PHQ-9 Depression Total Score: 6 11/19/19 23 3:29 PM EDT documented as of this encounter Care Teams Government Sales Manager Relationship Specialty Start Date End Date Naheed Zaman ANP [address] [place] [address] PCP - General Family Medicine 01/18/22 Real Gomez MD [address] [place] [address] 3rd [place] [address] Cardiology 10/01/24 Chico Kebede RN [address] [place] [address] Registered Nurse Family Medicine 02/03/25 02/03/25 documented as of this encounter
--- OUTSIDE RECORDS SUMMARY | 2025-02-04 14:28 | XMS_ITS | Clinical Summary ---
Author Organization [facility] Address [address] [place] [address] Care Team Providers Care Ferry Hand Name Role Phone Unavailable Primary Care Provider [...] recurrent major depressive disorder, with psychotic features ([facility]) 06/10/2024 Assessment & Plan (06/18/2024 11:18 AM EST): Patient refused to be seen, [place] steam box operator was notified. Assessment & Plan (06/10/2024 [...] connected on video call until arrival of [place] Police with recommendation to section patient to [...] 11/14/2023 10/17/2023 Alcohol and Drug Screen 05/29/2024 [id number] ( season) 01/27/202512/29/2 021, 12/10/2020 Imm-Influenza (#1) 2025 02/27/2012, 01/27/2011 Diabetes Screening 10/08/2025 10/08/2024, 0 09/12/2024, 05/16/2024, Additional history exists Lipid Screening 04/24/2029 04/24/2024, 05/29, 02/27/2020 Imm-DTaP/Tdap/Td (3 - Td or Tdap) 10/16/2033 024, 03/15/2011 Hepatitis C Screening Completed 10/11/2023 HIV Screening Completed 12/13/2023, 11/26, 12/16/2021 Insurance [facility] [place] MEDICAID
--- OUTSIDE RECORDS SUMMARY | 2025-02-04 14:28 | XMS_ITS ---
Author Organization [employer] Address [address] [place] [address] 7t [place] [address] Care Team Providers Care Candy Spreader Helper Name Role Phone Naheed Zaman Primary Care Provider [phone] Real Gomez MD Unavailable CM Complex Status:Closed (Closed) Start date:09/13/2024 Enrollment date:10/04/2024 Enrollment reason:ADT Feed End date:02/03/2025 Close reason:Goals Met Overview ED- Pt went to [facility] ED on 09/12/24. Continued Care and Services Coordination
--- OUTSIDE RECORDS SUMMARY | 2025-02-04 14:28 | XMS_ITS | Encounter Summary ---
Author Organization [employer] Address [address] [place] [address] Care Team Providers Care Service Unit Operator Oil Well Name Role Phone Naheed Zaman Primary Care Provider [phone] Real Gomez MD Unavailable Chico Kebede RN Unavailable [phone] Reason for Visit * Reason Comments Med Refill Encounter Details Date Type Department Care Team (Late st Contact Info) Description 08/18/2023 Refill [facility] MEDICINE [address] [place] [address] Naheed Zaman ANP [address] [place] [address] Chronic low back pain without sciatica, unspecified [...] Description 02/06/2025 2:00 PM EDT Office Visit [address] [address] Rut Branham MD [address] [place] [address] 02/17/2025 11:00 AM EDT Clinical Support [address] [address] 03/27/2025 9:00 AM EDT Office Visit [address] [address] Naheed Zaman ANP [address] [place] [address] 04/03/2025 3:00 PM EST Office Visit [address] [address] Rut Branham MD [address] [place] [phone] documented as of this encounter Visit Diagnoses Diagnosis Chronic low back pain without sciatica, unspecified back pain laterality documented in this encounter Additional Health Concerns Assessment Noted Time PHQ-9 Depression Total Score: 6 11/19/19 23 3:29 PM EDT documented as of this encounter Care Teams Service Unit Operator Oil Well Relationship Specialty Start Date End Date Naheed Zaman ANP [address] [place] [address] PCP - General Family Medicine 01/18/22 Real Gomez MD [address] [place] [address] 3rd [place] [address] Cardiology 10/01/24 Chico Kebede RN [address] [place] [address] Registered Nurse Family Medicine 02/03/25 02/03/25 documented as of this encounter
--- OUTSIDE RECORDS SUMMARY | 2025-02-04 14:28 | XMS_ITS | Clinical Summary ---
Author Organization [facility] Address [address] [place] [address] Phone Care Team Providers Care Hydroelectric Station Operator Name Role Phone Naheed Zaman NP [...] with BMI of 6 0.0-69.9, adult ([facility] V24, [facility] V28) 04/17/2024 Acquired pes planus 05/11/2017 Pure hypercholesterolemia 05/10/2017 Pulmonary hypertension ([facility] V24, [facility] V28 ) 05/10/2017 Overview (04/17/2024): [...] mellitus), type 2 with renal complications ([facility] V24, [facility] V28) 04/30/2017 Spondylosis of lumbar region without myelopathy or radiculopathy 04/26/2017 Overview (04/17/2024): Saw [facility] Rheumatology BETSY (obstructive sleep apnea) 04/26/2017 Overview (04/17/2024): Polysomnography 08/05/2009, [facility] :On cpap 14 cm H2O 10/23/2017 Home Sleep Study insufficient data. 08/2018 - Pulm ordered split night study. Diabetes mellitus type 2 wit h neurological manifestations ([facility] V24, [facility] V28) 04/26/2017 CTS (carpal tunnel [...] mellitus), type 2 with renal complications ([facility] V24, [facility] V28) 04/30/2017 DX:DM (diabetes mellitus), t ype 2 with renal complications (HCC) Proteinuria 04/30/2017 DX:Proteinuria Diabetes mellitus type 2 wit h neurological manifestations ([facility] V24, [facility] V28) 04/26/2017 DX:Diabetes mellitus type 2 with neurological manifestations (HCC) Asthma 05/10/2017 DX:Asthma Elevated liver enzymes 05/10/2017 DX:Elevat ed liver enzymes; COMMENT: fatty liver Gout 05/10/2017 DX:Gout H. pylori infection 05/10/2017 DX:H. 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 DX:History of acute post-streptococcal glomerulonephritis; COMMENT: Hospitalized [facility] with anasarca/ KUNAL 2010, streptolysin titer 1060, kidney bx, Followed in past by Dr Zapata, NSAIDS not recommended HTN (hypertension) 05/10/2017 DX:HTN (hyper tension) Morbid obesity with BMI of 6 0.0-69.9, adult ([facility] V24, [facility] V28) 04/26/2017 DX:Morbid obesity wit h BMI of 60.0-69.9, adult ([facility]) BETSY (obstructive sleep apnea) 04/26/2017 DX :BETSY (obstructive sleep apnea); COMMENT: Polysomnography 08/05/2009, [facility] :On cpap 14 cm H2O Pulmonary hypertension ([facility] V24, [facility] V28) 05/10/2017 DX:Pulmonary hypertension (H CC); COMMENT: Mild, ECHO 10/21/10 [facility], EF 65-70% Otherwise normal altho [...] without myelopathy or radiculopathy; COMMENT: Saw [facility] Rheumatology Family History Medical History [...] Albumin Creatinine Ratio (02/27/2020) Pathologist [facility] Urine Albumin Creatinine Ratio Abstracted [facility] Provider HEALTH MAINTENANCE Final Result * Annual BMP Blood Test (02/27/2020) Pathologist [facility] Annual BMP Blood Test Abstracted Result [facility] Provider HEALTH MAINTENANCE Final Result * (ABNORMAL) Hemoglobin A1c (02/27/2020) [facility] Hemoglobin A1C 6.9(A) <=6.5 % Blood Venous blood specimen / Unknown Result [facility] Provider LAB BLOOD ORDERABLES Brunilda l Result * Lipid panel (02/27/2020) [facility] LDL/HDL Ratio 3 0 - 4 Triglycerides 91 0 - 150 mg/dL Cholesterol 145 0 - 200 mg/dL HDL 58 >=40 mg/dL LDL Cholesterol 69 0 - 100 mg/dL Blood Venous blood specimen / Unknown Result [facility] Provider LAB BLOOD ORDERABLES Brunilda l Result * Hepatitis C Screening (06/22/2017) Pathologist [facility] Hepatitis C Screening Abstracted us Historical Provider HEALTH MAINTENANCE Final Result from Last 3 Months or Most Recently Relevant to Health Maintenance Insurance MEDICAID - [place] Care Teams Hydroelectric Station Operator Relationship Specialty Start Date End Date Naheed Zaman NP [address] [place] [phone] PCP - General 02/21/24
--- OUTSIDE RECORDS SUMMARY | 2025-02-04 14:28 | XMS_ITS | Clinical Summary ---
Author Organization [employer] Address [address] [facility] [address] [place] [address] Care Team Providers Care Railroad Worker Name Role Phone Sofia Mitchell Primary Care Provider [phone] Real Gomez MD Unavailable Allergies Active Allergy Reactions Criticality Noted Date Comments Shellfish Allergy 05/02/2022 Medications * This document contains information received from the source organization and may not represent a complete record from that organization. Alcohol Swabs (Alcohol Prep) 70 % pads USE FOUR TIMES DAILY WITH INSULIN Active Blood Glucose Monitoring Suppl (FreeStyle [place] Lite) w/Device kit TEST BLOOD SUGAR FOUR TIMES DAILY Active FREESTYLE LITE test strip TEST BLOOD SUGAR FOUR TIMES DAILY Active glucose blood (FREESTYLE LITE) test strip check fingerstick 4 times a day Active Sure Comfort [place] 31G X 5 MM misc USE FOUR [...] Active beta carotene (vitamin A) 3 MG (52946 UT) capsule TAKE 2 CAPSULES BY MOUTH EVERY DAY FOR 2 WEEKS 022 Active EPINEPHrine (Epipen) 0.3 MG/0.3ML injection syringeIndicatio ns:Allergy to shellfish INJECT INTRAMUSCULARLY DIRECTED ON PACKAGE AND GO TO EMERGENCY ROOM 2 each 023 Active Blood Pressure Monitor kitIndications:P ulmonary hypertension ([facility]/HCC) 1 kit in the morning. 1 kit 024 Active atorvastatin (Lipitor) 10 MG tabletIndication s:Type 2 diabetes mellitus with hyperlipidemia (CMS/HCC) ([facility]) Take 1 tablet (10 mg) [...] use. 473 mL 024 Active Continuous Glucose Sole Inker (FreeStyle Casey 2 Deep Run) deviceIndication s:Diabetes mellitus with albuminuria (CMS/HCC) ([facility]) Scan sensor every 8 hours 1 each 024 Active Continuous Glucose Sensor (FreeStyle Casey 2 Sensor) miscIndications: Diabetes mellitus with albuminuria (CMS/HCC) ([facility]) Apply 1 sensor every 14 days 2 each 024 Active glucose (BD Glucose) 5 g chewable tabletIndication s:Type 2 diabetes mellitus with hyperlipidemia (CMS/HCC) ([facility]) Chew 3 tablets (15 g) [...] FOR PAIN 30 tablet 3 025 Active semaglutide (Ozempic) 2 MG/1.5ML solution pen-injectorIndi [...] THE MORNING 90 capsule 1 025 Active Suboxone 8-2 MG SL filmIndications: Uncomplicated opioid dependence (CMS/HCC) Place 3 Film under the tongue Once per day. 84 Film 1 025 2024 Active famotidine (Pepcid) 20 MG tabletIndication s:Epigastric [...] morning. 90 capsule 1 025 2024 Discontinued Suboxone 8-2 MG SL filmIndications: [...] Health Integration Plan Internal Follow up with [facility] Patient Self Plan Patient to [facility] as needed, Comply with medication , [...] Health Integration Plan Internal Follow up with [facility] Patient Self Plan Patient to reach out to [facility] team as needed, Comply with [...] Health Integration Plan Internal Follow up with [facility] Patient Self Plan Patient to utilize skills provided in intervention , Patient to reach out to [facility] as needed, and Patient to reach [...] due to lack of employment, lack of services. Ross presented with increase of depressive [...] Health Integration Plan Internal Follow up with [facility] External OP psychiatry Referral Patient Self Plan Patient to reach out to [facility] team as needed, Comply with medication , Patient to engage in OP therapy , and Patient to reach out to [facility] as needed Assessment & Plan (09/20/2023 10:06 AM EDT): New/Additional Services needed Off-site services for Behavioral Health Integration Plan External OP therapy referral Patient Self Plan Patient to utilize skills provided in intervention , Patient to reach out to [facility] team as needed, Comply with [...] tried referring pt to [facility] and other centers and pt;s can not be evaluated for plastic surgery w current BMI -I request referral to be sent to [facility] but was explained is the [...] hypertension 05/10/2017 Overview (07/28/2022): Mild, ECHO 10/21/10 [facility], EF 65-70% H. pylori infection 05/10/2017 Overview (07/28/2022): + serology 08/07/2009, uncertain if treated Gout 05/10/2017 Elevated liver enzymes 05/10/2017 Overview (07/28/2022): fatty liver Arthritis 05/10/2017 Overview (07/28/2022): Mild L knee, Mod L shoulder arthropathy Asthma 05/10/2017 Spondylosis of lumbar region without myelopathy or radiculopathy 04/26/2017 Overview (11/22/2024): Saw [facility] Rheumatology, now on humira which has been [...] sleep apnea) 05/18/2015 Overview (11/22/2024): Polysomnography 08/05/2009, [facility]: On cpap 14 cm H2O 10/23/2017 Home Sleep Study insufficient data. 08/2018 - Pul ordered split night study. Titration was done 03/2023 and titrated to start cpap at 15vtS17. HST c/w AHI 124/hr and oxygen fritz to 70%, he was titrated Follows w/ [facility] Neurology and Sleep, Leyla De La Cruz PA Proteinuria 05/18/2015 Encounters * This document contains information received from the source organization and may not represent a complete record from that organization. Date Type Department Care Team Description 02/03/2025 Patient Outreach [facility] [address] [place] [address] Sofia Mitchell ANP Care Coordination ([facility]/Matthew Davenport f/u, program graduation) 02/03/2025 Patient Outreach [facility] [address] [place] [address] Sofia Mitchell ANP Care Management (C3- f/u call) 01/30/2025 Refill [facility] [address] [place] [address] Rut Branham MD Uncomplicated opioid dependence (CMS/HCC) 01/29/2025 Refill [facility] [address] [place] [address] Rut Branham MD Uncomplicated opioid dependence (CMS/HCC) 01/28/2025 Patient Outreach [facility] [address] [place] [address] Sofia Mitchell ANP 01/20/2025 Travel 01/20/2025 Patient Outreach [facility] [address] [place] [address] Sofia Mitchell ANP Care Coordination (C3CM/CHW MATTHEW Mccain f/u call ) 01/20/2025 Patient Outreach [facility] [address] [place] [address] Sofia Mitchell ANP Care Coordination (C3CM f/u call) 01/17/2025 11:30 AM EDT Clinical Support [address] [address] Lela Witt RN Type 2 diabetes mellitus with hyperlipidemia (CMS/HCC) (CMS/HCC) 01/17/2025 Travel 01/16/[address] [address] Sofia Mitchell ANP Durable Medical Equipment 01/15/2025 Refill [facility] [address] [place] [address] Sofia Mitchell ANP Venous stasis dermatitis of both lower extremities 01/13/[address] [address] Sofia Mitchell ANP vasular 01/13/[address] [address] Sofia Mitchell ANP Vascular 01/10/2025 Results Follow-Up [address] [address] Sofia Mitchell ANP US BLADDER 01/09/2025 10:30 AM EDT Office Visit [address] [address] Sofia Mitchell ANP Type 2 diabetes mellitus with hyperlipidemia (CMS/HCC) (Primary Dx); Morbid obesity (CMS/HCC); Diabetic nephropathy with proteinuria (CMS/HCC); Pulmonary hypertension (CMS/HCC); MICHAEL (generalized anxiety disorder); Dietary counseling; Exercise counseling 01/09/2025 Travel 01/08/[address] [place] [address] Sofia Mitchell ANP chart prep 01/03/[address] [address] Sofia Mitchell ANP Gastroesophageal reflux disease, unspecified whether esophagitis present; Essential hypertension; Chronic low back pain without sciatica, unspecified back pain laterality 01/03/[address] [address] Rut Branham MD Uncomplicated opioid dependence (CMS/HCC) 01/02/2025 Patient Outreach [address] [address] Sofia Mitchell ANP Care Management (C3CM- f/u call) 12/24/2024 11:15 AM EDT Office Visit [address] [address] Sofia Mitchell ANP Urinary retention (Primary Dx); Diabetic nephropathy with proteinuria (CMS/[facility]); Severe episode of recurrent major depressive disorder, without psychotic features ([facility]); Epigastric pain; Class 3 severe obesity with serious comorbidity and body mass index (BMI) of 60.0 to 69.9 in adult, unspecified obesity type; MICHAEL (generalized anxiety disorder); Pulmonary hypertension (CMS/[facility]); BETSY (obstructive sleep apnea); Spondylosis of lumbar region without myelopathy or radiculopathy 12/24/2024 Travel 12/23/[address] [address] Sofia Mitchell ANP chart prep 12/20/2024 Patient Outreach [address] [address] Sofia Mitchell ANP Care Coordination (Error) 12/20/2024 Patient Outreach [address] [address] Sofia Mitchell ANP Care Management (C3CM- f/u call) 12/20/[address] [address] Sofia Mitchell ANP Nurse Triage 12/18/2024 Patient Outreach [address] [address] Sofia Mitchell ANP Care Coordination (C3/Mikie Escobaroh f/u call_lvm) 12/16/2024 Results Follow-Up [address] [address] Sofia Mitchell ANP Hepatic Function Panel, Hepatitis A Antibody, Total, Hepatitis B Core Antibody, Total, Additional followed-up results: 3 12/12/2024 3:00 PM EDT Office Visit [address] [address] Rut Branham MD Opioid type dependence, continuous (CMS/HCC) (Primary Dx) 12/12/2024 Travel 12/09/2024 Patient Outreach [address] [address] Sofia Mitchell ANP Care Coordination (C3/Mimi Kebede Sdoh f/u call ) 12/09/2024 Patient Outreach [facility] [address] [place] [address] Sofia Mitchell ANP Care Coordination (C3CM f/u call) 12/04/[address] [address] Rut Branham MD Uncomplicated opioid dependence (CMS/HCC) 11/28/[address] [address] Sofia Mitchell ANP Durable Medical Equipment 11/25/[address] [address] Lela Witt, APRIL [facility] GI 11/25/2024 Patient Outreach [facility] [address] [place] [address] Sofia Mitchell ANP Care Coordination (C3CM f/u call) 11/22/2024 11:30 AM EDT Office Visit [address] [address] Sofia Mitchell ANP Type 2 diabetes mellitus with hyperlipidemia (CMS/HCC) (Primary Dx); Morbid obesity (CMS/HCC); BETSY (obstructive sleep apnea); Polyneuropathy associated with underlying disease (CMS/HCC); Spondylosis of lumbar region without myelopathy or radiculopathy; Acute torn meniscus of knee, right, sequela 11/22/2024 Travel 11/21/[address] [address] Sofia Mitchell ANP CHART PREP 11/20/[address] [address] Rut Branham MD Uncomplicated opioid dependence ([facility]) 11/18/[address] [address] Lela Witt RN Medication Compliance 11/18/[address] [address] Francy Kebede MA vascular appointment 11/08/2024 Patient Outreach [address] [address] Sofia Mitchell ANP Care Coordination (C3/CHW AMANDA Mccain SDLA f/u_lvm ) 11/08/2024 Patient Outreach [facility] [address] [place] [address] Sofia Mitchell ANP Care Coordination ([facility] f/u call- LVM) from Last 3 Months Immunizations Immunization Administration [...] 02/06/2025 2:00 PM EDT Office Visit [address] [address] Rut Branham MD [address] [place] [address] 02/17/2025 11:00 AM EDT Clinical Support [address] [address] 03/27/2025 9:00 AM EDT Office Visit [address] [address] Sofia Mitchell ANP [address] [place] [address] 04/03/2025 3:00 PM EST Office Visit [address] [address] Rut Branham MD [address] [place] [address] Health Maintenance Due Date Last Done Comments [...] EDT Opioid type dependence, continuous (CMS/HCC) POCT RAMSES-14 URINE DRUG SCREEN Routine 12/12/2024 1:32 PM [...] AM EDT Narrative 01/10/2025 9:50 AM EDT [facility] [address] [place] [address] [place] [address] Ultrasound Report Signed Patient: Ross Navarrete MR#: [id number] : 1980 Acct:[id number] Age/Sex: 44 / M ADM Date: 01/09/25 Loc: HO.[facility]GCX Attending Dr: Sofia Mitchell NP Ordering Physician: SOFIA MITCHELL NP Date of Service: 01/09/25 Procedure(s): US bladder Accession Number(s): [id number] cc: SOFIA MITCHELL NP CLINICAL HISTORY: ?urinary retention US Urinary Bladder Comparison: None Findings: The urinary bladder is unremarkable. Prevoid volume: 250 mL Ureteral jets are not visualized bilaterally. IMPRESSION: Normal urinary bladder This document has been electronically signed by: Ranjan Montiel MD on 01/10/2025 09:48:52 Dictated By: Ranjan Montiel MD Signed By: <Electronically signed by Ranjan Montiel MD in OV> 01/10/2549 DD/ 7 TD/TT: 01/10/25947 Wine Sales Representative: Procedure Note Donotuseinterpreter, Image - 01/10/2025 [facility] [address] [place] [address] Ultrasound Report Signed Patient: Ross Navarrete LMR#: [id number] : 1980Acct:[id number] Age/Sex: 44 / MADM Date: 01/09/25 [facility]: [facility] Attending Dr: Sofia Mitchell NP Ordering Physician: SOFIA MITCHELL NP Date of Service: 01/09/25 Procedure(s): US bladder Accession Number(s): [id number] cc: SOFIA MITCHELL NP CLINICAL HISTORY: ?urinary retention US Urinary Bladder Comparison: None Findings: The urinary bladder is unremarkable. Prevoid volume: 250 mL Ureteral jets are not visualized bilaterally. IMPRESSION: Normal urinary bladder This document has been electronically signed by: Ranjan Montiel MD on 01/10/2025 09:48:52 Dictated By: Ranjan Montiel MD Signed By: <Electronically signed by Ranjan Montiel MD in OV> 01/10/2549 DD/ 7 TD/TT: 01/10/25947 Wine Sales Representative: Result Guillermo RAHMAN IMG US PROCEDURES Final Result * (ABNORMAL) POCT HGB A1C (01/09/2025 10:56 AM EDT) Hemoglobin A1C 5.8(A) 4.0 - 5.7 % QC Media Lot # [id number] Lot# Expiration Date , Blood 01/09/2025 10:5 6 AM EDT Result Giullermo RAHMAN POINT OF CARE TEST ENTER/EDIT OR DERABLES Final Result * POCT Glucose (01/09/2025 10:55 AM EDT) Glucose Blood, POC 102 60 - 200 mg/dL QC Media Lot # [id number] Lot# Expiration Date [id number] Blood Capillary blood specimen / Unknown 01/09/2025 10:55 AM EDT Result Guillermo RAHMAN POINT OF CARE TEST ENTER/EDIT OR DERABLES Final Result * Hepatitis C Antibody with Reflex to HCV, RNA, Quantitative, Real-Time PCR (12/12/2024 1:48 PM EDT) Hepatitis C Antibody Nonreactive Nonreactive [facility] Comment:Antibodies to HCV no t detected; does not exclude early acuteHCV infection. Blood Venous blood specimen / Unknown 12/12/2024 1:48 PM EDT 12/12/2024 4:06 PM EDT Result Guillermo Branham MD LAB BLOOD ORDERABLES Final R esult [facility] [address] [place] [phone] * Hepatitis A Antibody, Total (12/12/2024 1:48 PM EDT) Pathologist [facility] Hepatitis A Antibody IgG Nonreactive Nonreactive [facility] Blood Venous blood specimen / Unknown 12/12/2024 1:48 PM EDT 12/12/2024 4:06 PM EDT Rut Branham MD LAB BLOOD ORDERABLES Final R esult Performing Organization Address City/[facility] Co de Phone Number [facility] [address] [place] [phone] * Hepatitis B surface antigen, EIA (12/12/2024 1:48 PM EDT) Pathologist [facility] Hepatitis B Surface Ag Negative Negative [facility] Blood Venous blood specimen / Unknown 12/12/2024 1:48 PM EDT 12/12/2024 4:06 PM EDT Rut Branham MD LAB BLOOD ORDERABLES Final R esult Performing Organization Address [facility] Co de Phone Number [facility] [address] [place] [phone] * Hepatitis B Core Antibody, Total (12/12/2024 1:48 PM EDT) Pathologist [facility] Hepatitis B Core Antibody Nonreactive Nonreactive [facility] Blood Venous blood specimen / Unknown 12/12/2024 1:48 PM EDT 12/12/2024 4:06 PM EDT Rut Branham MD LAB BLOOD ORDERABLES Final R esult Performing Organization Address [facility] Co de Phone Number [facility] [address] [place] [phone] * Hepatitis B Surface Antibody, Qualitative (12/12/2024 1:48 PM EDT) ~Hepatitis B Surface Antibody NONREACTIVE Nonreactive [facility] Comment:Nonreactive: < 8.00 mIU/mL Blood Venous blood specimen / Unknown 12/12/2024 1:48 PM EDT 12/12/2024 4:06 PM EDT Rut Branham MD LAB BLOOD ORDERABLES Final R esult Performing Organization Address [facility] de Phone Number [facility] [address] [place] [phone] * Hepatic Function Panel (12/12/2024 1:48 PM EDT) Pathologist [facility] Bilirubin, Total 0.8 0.0 - 1.0 mg/dL [facility] Bilirubin, Direct 0.3 0.0 - 0.5 mg/dL [facility] Aspartate Amino Transferase 31 5 - 37 U/L [facility] Alanine Aminotransferase 22 0 - 40 U/L [facility] Total Protein 7.8 6.5 - 8.0 g/dL [facility] Albumin Level 4.2 3.5 - 5.0 g/dL [facility] Alkaline Phosphatase 69 39 - 117 U/L [facility] Blood Venous blood specimen / Unknown 12/12/2024 1:48 PM EDT 12/12/2024 4:06 PM EDT Rut Branham MD LAB BLOOD ORDERABLES Final R esult Performing Organization Address [facility] de Phone Number [facility] [address] [place] [phone] * (ABNORMAL) POCT RAMSES-14 Urine Drug Screen (12/12/2024 1:32 PM EDT) THC Positive(A) Negative Cocaine Screen, Urine Negative [...] procedure / Unknown 12/12/2024 1:32 PM EDT Rut Branham MD POINT OF CARE TEST ENTER/YI T ORDERABLES Final Result * Lipid Panel, Standard (04/24/2024 11:23 AM EST) Triglycerides 132 <150 mg/dL [facility] Comment:Desirable Triglyceri de: less than 150 mg/dLBorderline High Triglyceride 150-199 mg/dLHigh Triglyceride: 200-499 mg/dLVery High Triglyceride: greater than or equal to 5OO mg/dL Cholesterol 165 <200 mg/dL [facility] Comment:Desirable Cholestero l: less than 200 mg/dLBorderline High Cholesterol: 200-239 mg/dLHigh Cholesterol: greater than 239 mg/dL LDL Cholesterol Calculated 91 <100 mg/dL [facility] Comment:Desirable LDL: less than 100 mg/dLNear Optimal/Above Optimal LDL: 110- 129 mg/dLBorderline High LDL: 130-159 mg/dLHigh LDL: 160-189 mg/dLVery High LDL: greater than or equal to 190 mg/dL HDL Cholesterol 48 >40 mg/dL [facility] Comment:Desirable HDL: great er than 40 mg/dL Note: This HDL assay may give artificially low results in patients with liver disease. 04/24/2024 11:2 3 AM EST 04/24/2024 11:23 AM EST us Generic External Data Provider LAB BLOOD ORDERAB LES Final Result [facility] [address] [place] [phone] * HIV-1/2 Antigen and Antibodies, Fourth Generation, with Reflexes (12/13/2023 11:48 AM EDT) HIV AB/AG Nonreactive Nonreactive [facility] Comment:HIV-1 p24 Ag and/or HIV-1/HIV-2 Ab not detected.A test result that is nonreactive does not exclude thepossibility of exposure to or infection with HIV-1 and/orHIV-2. Nonreactive results in this assay for individualswith prior exposure to HIV-1 and/or HIV-2 may be due toantigen and antibody levels that are below the limit ofdetection of this assay.The [employer] HIV Ag/Ab Combo assay result andsupplemental assay results should be interpreted inconjunction with the patient's clinical presentation,history and other laboratory results. If the results areinconsistent with clinical evidence, additional testing issuggested to confirm the result. Blood Venous blood specimen / Unknown 12/13/2023 11:48 AM EDT 12/13/2023 12:[address] [facility] LAB BLOOD ORDERABLES Final Resul t [facility] [address] [place] [phone] [phone] from Last 3 Months or Most Recently Relevant to Health Maintenance Insurance [facility] C3 DENTAL-[facility] MEDICAID STAND ADULT Care Teams Railroad Worker Relationship Specialty Start Date End Date Sofia Mitchell ANP [address] [place] [phone] PCP - General Family Medicine 01/18/22 Real Gomez MD [address] [place] [address] [address] [place] [address] Cardiology 10/01/24
--- OUTSIDE RECORDS SUMMARY | 2025-02-04 14:28 | XMS_ITS | Encounter Summary ---
Author Organization [employer] Address [address] [facility] [address] [address] [place] [address] Care Team Providers Care Traffic Engineering Director Name Role Phone Naheed Zaman Primary Care Provider [phone] Real Gomez MD Unavailable Chico Kebede RN Unavailable [phone] Reason for Visit * Reason Onset Date Comments callback requested 04/23/2024 Encounter Details Date Type Department Care Team ([facility] st Contact Info) Description 04/23/2024 Telephone [facility] [address] [place] [address] Naheed Zaman ANP [address] [place] [address] callback requested Social History Tobacco Use Types [...] returning call to Madie Olson Callback number [phone] documented in this encounter Plan of Treatment Upcoming Encounters Date Type Department Care Team (Late st Contact Info) Description 02/06/2025 2:00 PM EDT Office Visit [address] [address] Rut Branham MD [address] [place] [phone] 02/17/2025 11:00 AM EDT Clinical Support [address] [address] 03/27/2025 9:00 AM EDT Office Visit [address] [address] Naheed Zaman ANP [address] [place] [address] 04/03/2025 3:00 PM EST Office Visit [facility] [address] [place] [address] Rut Branham MD [address] [place] [address] documented as of this encounter Visit Diagnoses Not on filedocumented in this encounter Additional Health Concerns Assessment Noted Time PHQ-9 Depression Total Score: 25 024 8:12 AM EDT documented as of this encounter Care Teams Traffic Engineering Director Relationship Specialty Start Date End Date Naheed Zaman ANP [address] [place] [address] PCP - General Family Medicine 01/18/22 Real Gomez MD [address] [place] [address] Drive 3rd [place] [address] Cardiology 10/01/24 Chico Kebede, APRIL [address] [place] [address] Registered Nurse Family Medicine 02/03/25 02/03/25 documented as of this encounter
--- OUTSIDE RECORDS SUMMARY | 2025-02-04 14:28 | XMS_ITS | Encounter Summary ---
Author Organization [facility] [facility] Address 75 [facility] 7t [place] [address] Care Team Providers Care Tactical Air Control Party Manager Name Role Phone Naheed Zaman Primary Care Provider [phone] Real Gomez MD Unavailable Chico Kebede RN Unavailable [phone] Encounter Details Date Type Department Care Team (Latest Contact Info) Description 12/29/2021 Abstract [facility] CONVERSIONS Dental, Provider, DDS Social History [...] Description 02/06/2025 2:00 PM EDT Office Visit [facility] MEDICINE [address] [place] [address] Rut Branham MD [address] [place] [address] 02/17/2025 11:00 AM EDT Clinical Support [address] [address] 03/27/2025 9:00 AM EDT Office Visit [address] [address] Naheed Zaman ANP [address] [place] [address] 04/03/2025 3:00 PM EST Office Visit [facility] MEDICINE 230 [place], [place] [phone] Rut Branham MD 230 [place] [address] documented as of this encounter Visit Diagnoses Not on filedocumented in this encounter Care Teams Tactical Air Control Party Manager Relationship Specialty Start Date End Date Naheed Zaman ANP 230 [place] [address] PCP - General Family Medicine 01/18/22 Real Gomez MD [address] [place] [address] 3rd [place] [address] Cardiology 10/01/24 Chico Kebede RN [address] [place] [address] Registered Nurse Family Medicine 02/03/25 02/03/25 documented as of this encounter
--- OUTSIDE RECORDS SUMMARY | 2025-02-04 14:28 | XMS_ITS | Encounter Summary ---
Author Organization [employer] Address [address] [facility] [address] 7t [place] [address] Care Team Providers Care Counter Manager Name Role Phone Naheed Zaman Primary Care Provider [phone] Real Gomez MD Unavailable Chico Kebede RN Unavailable [phone] Reason for Visit * Reason Onset Date Comments Med Refill 01/03/2025 Encounter Details Date Type Department Care Team (Late st Contact Info) Description 01/03/2025 Refill [facility] MEDICINE 230 [place] [address] Naheed Zaman ANP 230 [place] [address] Gastroesophageal reflux disease, unspecified whether esophagitis present; [...] Description 02/06/2025 2:00 PM EDT Office Visit [address] [address] Rut Branham MD [address] [place] [address] 02/17/2025 11:00 AM EDT Clinical Support [address] [address] 03/27/2025 9:00 AM EDT Office Visit [address] [address] Naheed Zaman ANP [address] [place] [address] 04/03/2025 3:00 PM EST Office Visit [facility] MEDICINE 230 [place] [address] Rut Branham MD 230 [place] [address] documented as of this encounter Visit Diagnoses Diagnosis Gastroesophageal reflux disease, unspecified whether esophagitis present Essential hypertension Unspecified essential hypertension Chronic low back pain without sciatica, unspecified back pain laterality documented in this encounter Additional Health Concerns Assessment Noted Time PHQ-9 Depression Total Score: 7 10/05/19 25 2:06 PM EDT documented as of this encounter Care Teams Counter Manager Relationship Specialty Start Date End Date Naheed Zaman ANP 230 [place] [address] PCP - General Family Medicine 01/18/22 Real Gomez MD [address] [place] [address] Drive 3rd [place] [address] Cardiology 10/01/24 Chico Kebede, APRIL 505 [place] [address] Registered Nurse Family Medicine 02/03/25 02/03/25 documented as of this encounter
--- OUTSIDE RECORDS SUMMARY | 2025-02-04 14:28 | XMS_ITS | Encounter Summary ---
Author Organization [employer] Address [address] [facility] [address] 7t [place] [address] Care Team Providers Care Stemhole Borer Name Role Phone Naheed Zaman Primary Care Provider [phone] Real Gomez MD Unavailable Chico Kebede RN Unavailable [phone] Reason for Visit * Reason Onset Date Comments Med Refill 11/20/2024 Encounter Details Date Type Department Care Team (Late st Contact Info) Description 11/20/[address] [facility] MEDICINE 230 [place] [address] Rut Branham MD 230 [place] [address] Uncomplicated opioid dependence (CMS/HCC) Social History Tobacco [...] Description 02/06/2025 2:00 PM EDT Office Visit [address] [address] Rut Branham MD [address] [place] [address] 02/17/2025 11:00 AM EDT Clinical Support [address] [address] 03/27/2025 9:00 AM EDT Office Visit [address] [address] Naheed Zaman ANP [address] [place] [address] 04/03/2025 3:00 PM EST Office Visit [address] [address] Rut Branham MD 230 [place] [address] documented as of this encounter Visit Diagnoses Diagnosis Uncomplicated opioid dependence (CMS/HCC) documented in this encounter Additional Health Concerns Assessment Noted Time PHQ-9 Depression Total Score: 7 10/05/19 25 2:06 PM EDT documented as of this encounter Care Teams Stemhole Borer Relationship Specialty Start Date End Date Naheed Zaman ANP 230 [place] [address] PCP - General Family Medicine 01/18/22 Real Gomez MD [address] [place] [address] 3rd [place] [address] Cardiology 10/01/24 Chico Kebede RN 505 [place] [address] Registered Nurse Family Medicine 02/03/25 02/03/25 documented as of this encounter
--- OUTSIDE RECORDS SUMMARY | 2025-02-04 14:28 | XMS_ITS | Encounter Summary ---
Author Organization [facility] [facility] Address [address] [place] [address] 7t [place] [address] Care Team Providers Care Vision Care Associate Name Role Phone Naheed Zaman Primary Care Provider [phone] Real Gomez MD Unavailable Chico Kebede RN Unavailable [phone] Reason for Visit * Reason Comments Med Refill Encounter Details Date Type Department Care Team (Late Contact Info) Description 02/02/2023 Refill [facility] MEDICINE 230 [place] [address] Rut Branham MD 230 [place] [address] Uncomplicated opioid dependence (CMS/HCC) Social History Tobacco [...] Description 02/06/2025 2:00 PM EDT Office Visit [facility] MEDICINE 230 [place] [address] Rut Branham MD [address] [facility] [place] [address] 02/17/2025 11:00 AM EDT Clinical Support [address] [place] [address] 03/27/2025 9:00 AM EDT Office Visit [address] [address] Naheed Zaman ANP 230 [place], [place] 04/03/2025 3:00 PM EST Office Visit [address] [place] [address] Rut Branham MD 230 [place], [place] documented as of this encounter Visit Diagnoses Diagnosis Uncomplicated opioid dependence (CMS/HCC) documented in this encounter Additional Health Concerns Assessment Noted Time PHQ-9 Depression Total Score: 6 11/19/19 23 3:29 PM EDT documented as of this encounter Care Teams Vision Care Associate Relationship Specialty Start Date End Date Naheed Zaman ANP 230 [place] [address] PCP - General Family Medicine 01/18/22 Real Gomez MD [address] [place] [address] 3rd [place] [address] Cardiology 10/01/24 Chico Kebede, APRIL 505 [place] [address] Registered Nurse Family Medicine 02/03/25 02/03/25 documented as of this encounter
--- OUTSIDE RECORDS SUMMARY | 2025-02-04 14:28 | XMS_ITS | Encounter Summary ---
Author Organization [employer] Address 75 [facility] 7t [place] [address] Care Team Providers Care Airplane Mechanic Apprentice Name Role Phone Naheed Zaman Primary Care Provider [phone] Real Gomez MD Unavailable Reason for Visit * Reason Onset Date Comments Med Refill 01/29/2025 Encounter Details Date Type Department Care Team (Late st Contact Info) Description 01/29/2025 Refill [facility] MEDICINE 230 [place] [address] Rut Branham MD 230 [place] [address] Uncomplicated opioid dependence (CMS/HCC) Social History Tobacco [...] Description 02/06/2025 2:00 PM EDT Office Visit [address] [address] Rut Branham MD [address] [place] [address] 02/17/2025 11:00 AM EDT Clinical Support [address] [address] 03/27/2025 9:00 AM EDT Office Visit [address] [address] Naheed Zaman ANP [address] [place] [address] 04/03/2025 3:00 PM EST Office Visit [address] [address] Rut Branham MD 230 [place] [address] documented as of this encounter Visit Diagnoses Diagnosis Uncomplicated opioid dependence (CMS/HCC) documented in this encounter Additional Health Concerns Assessment Noted Time PHQ-9 Depression Total Score: 7 10/05/19 25 2:06 PM EDT documented as of this encounter Care Teams Airplane Mechanic Apprentice Relationship Specialty Start Date End Date Naheed Zaman ANP 230 [place] [address] PCP - General Family Medicine 01/18/22 Real Gomez MD [address] [place] [address] 3rd [place] [address] Cardiology 10/01/24 documented as of this encounter
--- OUTSIDE RECORDS SUMMARY | 2025-02-04 14:28 | XMS_ITS ---
Author Organization [employer] Address [address] [place] [address] 7t [place] [address] Care Team Providers Care Pipe Coremaker Name Role Phone Naheed Zaman Primary Care Provider [phone] Real Gomez MD Unavailable CH[facility] Complex Status:Closed (Closed) Start date:09/13/2024 Enrollment date:10/04/2024 Enrollment reason:ADT Feed End date:02/03/2025 Close reason:Goals Met Overview ED- Pt went to [facility] ED on 09/12/24. Continued Care and Services Coordination
--- OUTSIDE RECORDS SUMMARY | 2025-02-04 14:28 | XMS_ITS | Encounter Summary ---
Author Organization [employer] Address [address] [facility] [address] 7t [place] [address] Care Team Providers Care Machine Set Up Name Role Phone Naheed Zaman Primary Care Provider [phone] Real Gomez MD Unavailable Chico Kebede RN Unavailable Reason for Visit * Reason Comments Med Refill Encounter Details Date Type Department Care Team (Late st Contact Info) Description 09/26/2024 Refill [facility] 230 [place] [address] Desirae Cowan MD 230 [place], [place] [phone] Social History Tobacco Use Types Packs/Day Years [...] Description 02/06/2025 2:00 PM EDT Office Visit [facility] MEDICINE [address] [place] [address] Rut Branham MD [address] [place] [address] 02/17/2025 11:00 AM EDT Clinical Support [address] [address] 03/27/2025 9:00 AM EDT Office Visit [facility] MEDICINE [address] [place] [address] Naheed Zaman ANP [address] [place] [address] 04/03/2025 3:00 PM EST Office Visit [facility] MEDICINE [address] [place] [address] Rut Branham MD [address] [place] [address] documented as of this encounter Visit Diagnoses Not on filedocumented in this encounter Additional Health Concerns Assessment Noted Time PHQ-9 Depression Total Score: 25 024 8:12 AM EDT documented as of this encounter Care Teams Machine Set Up Relationship Specialty Start Date End Date Naheed Zaman ANP 230 [place] [address] PCP - General Family Medicine 01/18/22 Real Gomez MD [address] [place] [address] 3rd [place] [address] Cardiology 10/01/24 Chico Kebede RN [address] [place] [address] Registered Nurse Family Medicine 02/03/25 02/03/25 documented as of this encounter
--- OUTSIDE RECORDS SUMMARY | 2025-02-04 14:29 | XMS_ITS | Encounter Summary ---
Author Organization [employer] Address 75 [facility] 7t [place] [address] Care Team Providers Care Supervisor Respiratory Name Role Phone Naheed Zaman Primary Care Provider [phone] Real Gomez MD Unavailable Chico Kebede RN Unavailable [phone] Reason for Visit * Reason Comments Care Coordination C3CM/CHW Josh [facility] jaden, Sdoh f/u, program graduation Encounter Details Date Type Department Care Team (Latest Contact Info) Description 02/03/2025 Patient Outreach [facility] MEDICINE 230 [place] [address] Naheed Zaman ANP 230 [place] [address] Care Coordination (C3CM/CHW Matthew Mccain f/u, program graduation) Social History Tobacco Use Types Packs/Day Years [...] encounter Progress Notes * Josh Kebede - 02/03/2025 3:19 PM EDT CHW Josh Kebede placed outbound call to patient for follow up on SDOH needs. Patient's name, DOBand address confirmed. Patient states is doing well. CHW discussed with the patient progress made in the CHW Program. Patient notified is being graduated from the Care Management-CHW Program. Patientwas assisted with appt reminders, translation, and referred to [facility] program for food insecurities. Patient was approved for food vouchers. Patient was educated on how to receive SDOH services in the future. Patient agrees with the plan and will contact us if any future needs arise. No further questions or concerns. CHW reinforced direct contact information for any additional questions or concerns and extended clinic hours on Mondays and Wednesdays, and Walk-In Urgent Care Located in [facility]. Patient provided with after-hours line for [facility], , which offer night time triage service and option to transfer to boner meat provider if needed. documented in this encounter Plan of Treatment Upcoming Encounters Date Type Department Care Team (Late st Contact Info) Description 02/06/2025 2:00 PM EDT Office Visit [address] [address] [place] [address] 02/17/2025 11:00 AM EDT Clinical Support [facility] [place] [address] 03/27/2025 9:00 AM EDT Office Visit [address] [address] Naheed Zaman ANP [address] [place] [address] 04/03/2025 3:00 PM EST Office Visit [facility] [place] [address] Rut Branham MD [address] [place] [address] documented as of this encounter Visit Diagnoses Not on filedocumented in this encounter Additional Health Concerns Assessment Noted Time PHQ-9 Depression Total Score: 7 10/05/19 25 2:06 PM EDT documented as of this encounter Care Teams Supervisor Respiratory Relationship Specialty Start Date End Date [place] [address] PCP - General Family Medicine 01/18/22 Real Gomez MD [address] [place] [address] 3rd [place] [address] Cardiology 10/01/24 Chico Kebede RN [address] [place] [address] [place] [address] Registered Nurse Family Medicine 02/03/25 02/03/25 documented as of this encounter
--- OUTSIDE RECORDS SUMMARY | 2025-02-04 14:29 | XMS_ITS | Encounter Summary ---
Author Organization [employer] [facility] Address 75 [facility] 7t [place] [address] Care Team Providers Care Sonography Technician Name Role Phone Naheed Zaman Primary Care Provider [phone] Real Gomez MD Unavailable Chico Kebede RN Unavailable [phone] Encounter Details Date Type Department Care Team ([facility] Contact Info) Description 07/28/2022 Abstract [facility] 230 [place] [address] Zay Schmidt DDS 230 [place] [address] Social History Tobacco Use Types Packs/Day Years [...] Upcoming Encounters Date Type Department Care Team ([facility] Contact Info) Description 02/06/2025 2:00 PM EDT Office Visit [facility] MEDICINE 230 [place] [address] Rut Branham MD 230 [place] [address] 02/17/2025 11:00 AM EDT Clinical Support [address] [place] [address] 03/27/2025 9:00 AM EDT Office Visit [address] [address] Naheed Zaman ANP [address] [place] [address] 04/03/2025 3:00 PM EST Office Visit [address] [place] [address] Rut Branham MD [address] [place] [address] documented as of this encounter Visit Diagnoses Not on filedocumented in this encounter Care Teams Sonography Technician Relationship Specialty Start Date End Date Naheed Zaman ANP [address] [place] [address] PCP - General Family Medicine 01/18/22 Real Gomez MD [address] [place] [address] 3rd [place] [address] Cardiology 10/01/24 Chico Kebede, APRIL [address] [place] [address] Registered Nurse Family Medicine 02/03/25 02/03/25 documented as of this encounter
--- OUTSIDE RECORDS SUMMARY | 2025-02-04 14:29 | XMS_ITS | Encounter Summary ---
Author Organization [employer] Address [address] [facility] [address] 7t [place] [address] Care Team Providers Care Digital Press Operator Name Role Phone Naheed Zaman Primary Care Provider [phone] Real Gomez MD Unavailable Chico Kebede RN Unavailable [phone] Reason for Visit * Reason Onset Date Comments Med Refill 01/03/2025 Encounter Details Date Type Department Care Team (Late st Contact Info) Description 01/03/[address] [facility] MEDICINE 230 [place] [address] Rut Branham MD 230 [place] [address] Uncomplicated opioid dependence (CMS/HCC) Social History Tobacco [...] Description 02/06/2025 2:00 PM EDT Office Visit [address] [address] Rut Branham MD [address] [place] [address] 02/17/2025 11:00 AM EDT Clinical Support [address] [address] 03/27/2025 9:00 AM EDT Office Visit [address] [address] Naheed Zaman ANP [address] [place] [address] 04/03/2025 3:00 PM EST Office Visit [address] [address] Rut Branham MD 230 [place] [address] documented as of this encounter Visit Diagnoses Diagnosis Uncomplicated opioid dependence (CMS/HCC) documented in this encounter Additional Health Concerns Assessment Noted Time PHQ-9 Depression Total Score: 7 10/05/19 25 2:06 PM EDT documented as of this encounter Care Teams Digital Press Operator Relationship Specialty Start Date End Date Naheed Zaman ANP [address] [place] [address] PCP - General Family Medicine 01/18/22 Real Gomez MD [address] [place] [address] 3rd [place] [address] Cardiology 10/01/24 Chico Kebede RN 505 [place] [address] Registered Nurse Family Medicine 02/03/25 02/03/25 documented as of this encounter
--- OUTSIDE RECORDS SUMMARY | 2025-02-04 14:29 | XMS_ITS | Encounter Summary ---
Author Organization [employer] Address [address] [facility] [address] 7t [place] [address] Care Team Providers Care Table Maker Name Role Phone Naheed Zaman Primary Care Provider [phone] Real Gomez MD Unavailable Chico Kebede RN Unavailable [phone] Reason for Visit * Reason Comments Med Refill Encounter Details Date Type Department Care Team (Late st Contact Info) Description 01/30/2025 Refill [facility] MEDICINE 230 [place] [address] Rut Branham MD 230 [place] [address] Uncomplicated opioid dependence (CMS/HCC) Social History Tobacco [...] Description 02/06/2025 2:00 PM EDT Office Visit [address] [address] Rut Branham MD [address] [place] [address] 02/17/2025 11:00 AM EDT Clinical Support [address] [address] 03/27/2025 9:00 AM EDT Office Visit [address] [address] Naheed Zaman ANP [address] [place] [address] 04/03/2025 3:00 PM EST Office Visit [address] [address] Rut Branham MD 230 [place] [address] documented as of this encounter Visit Diagnoses Diagnosis Uncomplicated opioid dependence (CMS/HCC) documented in this encounter Additional Health Concerns Assessment Noted Time PHQ-9 Depression Total Score: 7 10/05/19 25 2:06 PM EDT documented as of this encounter Care Teams Table Maker Relationship Specialty Start Date End Date Naheed Zaman ANP 230 [place] [address] PCP - General Family Medicine 01/18/22 Real Gomez MD [address] [place] [address] 3rd [place] [address] Cardiology 10/01/24 Chico Kebede, APRIL 505 [place] [address] Registered Nurse Family Medicine 02/03/25 02/03/25 documented as of this encounter
--- OUTSIDE RECORDS SUMMARY | 2025-02-04 14:29 | XMS_ITS | Encounter Summary ---
Author Organization [employer] Address [address] [facility] 7t [place] [address] Care Team Providers Care Calendar Control Clerk Blood Bank Name Role Phone Naheed Zaman Primary Care Provider [phone] Rael Gomez MD Unavailable Chico Kebede RN Unavailable [phone] Reason for Visit * Reason Comments Care Management C3CM- f/u call Encounter Details Date Type Department Care Team (Late st Contact Info) Description 02/03/2025 Patient Outreach [facility] MEDICINE [address] [place] [address] Naheed Zaman ANP [address] [place] [address] Care Management (C3CM- f/u call) Social History Tobacco Use Types Packs/Day Years [...] as of this encounter Progress Notes * Chico Kebede RN - 02/03/2025 2:55 PM EDT KIMBER Kebede RN placed outbound call to patient. Patient's name, and address confirmed. Patient states is doing well with no recent illnesses or emergency room visits. KIMBER reviewed all upcoming appointments with patient- [facility] Rheumatology on 02/04/25 at 12:30pm, Bariatrics on 02/05/25 at 3:00pm, OBAT f/u 02/06/25 at 2:00pm, [facility] Cardiology on 02/13/25 at 2:45pm, RN visit at [facility] on 02/17/25 at 11:00am, [facility] Urology 02/18/25 at 9:30am, Pain Management 02/18/25 at 2:30pm, Pain Management 02/20/25 at 2:15pm, and [facility] Pulmonology on 03/05/25 at 9:30am. Patient states he is aware of all of the upcoming visits. He states he has them all written down on a calendar. He confirms having transportation to the visits and denies any barriers to attending. Per patient, also scheduled to see his therapist on 02/04/25 at 10:00am. Patient states he is waiting to be evaluated/cleared by both Cardiology and Pulmonology before he can schedule his colonoscopy. No further questions or concerns. CM reinforced direct contact information for any additional questions or concerns. Education provided on [facility] Ur[facility] Care located in [facility] of [facility]. Patient provided with after-hours line for [facility], , which offer night time triage service and option to transfer to silk conditioner provider if needed. CM discussed with the patient progress made tow ards established goals. Patient notified is being graduated from the Care Management Program. Patient was educated on how to receive care management services in the future. CM educated patient on the[facility]SS program and re-educated patient on the referral that was placed to [facility] for future management.He verbalizes understanding. He states he recently received a text message from his new home care liaison with [facility], Deisy [phone]. He agrees to follow up with her and will f/u with PCP's office as needed. * Chico Kebede RN - 02/03/2025 2:55 PM EDT CM Chico Kebede RN, sent notification to PCP JOSIAH Marquez to inform that patient has completed C3 Adult Complex Care program with goals partially/fully met at this time. documented in this encounter Plan of Treatment Upcoming Encounters Date Type Department Care Team (Late st Contact Info) Description 02/06/2025 2:00 PM EDT Office Visit [facility] MEDICINE [address] [place] [address] Rut Branham MD 230 [place] [address] 02/17/2025 11:00 AM EDT Clinical Support [address] [address] 03/27/2025 9:00 AM EDT Office Visit [address] [address] Naheed Zaman ANP 230 [place] [address] 04/03/2025 3:00 PM EST Office Visit [address] [address] Rut Branham MD [address] [place] [address] documented as of this encounter Visit Diagnoses Not on filedocumented in this encounter Additional Health Concerns Assessment Noted Time PHQ-9 Depression Total Score: 7 10/05/19 25 2:06 PM EDT documented as of this encounter Care Teams Calendar Control Clerk Blood Bank Relationship Specialty Start Date End Date Naheed Zaman ANP 230 [place] [address] PCP - General Family Medicine 01/18/22 Real Gomez MD [address] [place] [address] 3rd [place] [address] Cardiology 10/01/24 Chico Kebede, APRIL [address] [place] [address] Registered Nurse Family Medicine 02/03/25 02/03/25 documented as of this encounter
--- OUTSIDE RECORDS SUMMARY | 2025-02-04 14:29 | XMS_ITS | Encounter Summary ---
Author Organization [employer] Address [address] [facility] [address] 7t [place] [address] Care Team Providers Care Heel Coverer Name Role Phone Naheed Zaman Primary Care Provider [phone] Real Gomez MD Unavailable Chico Kebede RN Unavailable Reason for Visit * Reason Onset Date Comments Med Refill 10/30/2024 Encounter Details Date Type Department Care Team (Late st Contact Info) Description 10/30/2024 Refill [facility] MEDICINE [address] [place] [address] Naheed Zaman ANP 230 [place] [address] Chronic low back pain without sciatica, unspecified [...] Description 02/06/2025 2:00 PM EDT Office Visit [address] [address] Rut Branham MD [address] [place] [address] 02/17/2025 11:00 AM EDT Clinical Support [address] [address] 03/27/2025 9:00 AM EDT Office Visit [address] [address] Naheed Zaman ANP [address] [place] [address] 04/03/2025 3:00 PM EST Office Visit [address] [address] Rut Branham MD 230 [place] [address] documented as of this encounter Visit Diagnoses Diagnosis Chronic low back pain without sciatica, unspecified back pain laterality documented in this encounter Additional Health Concerns Assessment Noted Time PHQ-9 Depression Total Score: 7 10/05/19 25 2:06 PM EDT documented as of this encounter Care Teams Heel Coverer Relationship Specialty Start Date End Date Naheed Zaman ANP [address] [place] [address] PCP - General Family Medicine 01/18/22 Real Gomez MD [address] [place] [address] 3rd [place] [address] Cardiology 10/01/24 Chico Kebede RN [address] [place] [address] Registered Nurse Family Medicine 02/03/25 02/03/25 documented as of this encounter
--- OUTSIDE RECORDS SUMMARY | 2025-02-04 14:29 | XMS_ITS | Clinical Summary ---
Author Organization [employer] [facility] Address [facility] [address] [place] [address] Phone Care Team Providers Care Singer Songwriter Name Role Phone Naheed Zaman NP Primary Care Provider [phone] Social History Tobacco Use Types Packs/Day Years [...] Description 02/05/2025 3:00 PM EDT Office Visit [facility] Medical Weight Management [address] [address] Sri Andrade MD [address] [address] [email or web address] Health Maintenance Due Date Last Done Comments [...] Medical Devices Not on file Insurance [facility] C3 ACO [facility] C3 ACO Care Teams Singer Songwriter Relationship Specialty Start Date End Date Naheed Zaman NP [address] [place] [phone] PCP - General Nurse Practitioner 01/02/25 Additional Source Comments The information contained in this document represents components of the legal health record. It is not the complete legal health record.[facility]
--- OUTSIDE RECORDS SUMMARY | 2025-02-04 14:29 | XMS_ITS | Encounter Summary ---
Author Organization [employer] Address [address] [facility] 7t [place] [address] Care Team Providers Care Siebel Consultant Name Role Phone Naheed Zaman Primary Care Provider [phone] Real Gomez MD Unavailable Chico Kebede RN Unavailable [phone] Reason for Visit * Reason Onset Date Comments Durable Medical Equipment 10/04/2022 Encounter Details Date Type Department Care Team (Late st Contact Info) Description 10/04/2022 Telephone [facility] MEDICINE 230 [place] [address] Naheed Zaman ANP 230 [place] [address] Durable Medical Equipment Social History Tobacco Use [...] Miscellaneous Notes * Telephone Encounter - Jerome Echols - 10/04/2022 12:13 PM EDT Tc from pt requesting a Script for Compressions socks. Please contact pt at [phone] documented in this encounter Plan of Treatment Upcoming Encounters Date Type Department Care Team (Late st Contact Info) Description 02/06/2025 2:00 PM EDT Office Visit [address] [address] Rut Branham MD [address] [place] [address] 02/17/2025 11:00 AM EDT Clinical Support [address] [address] 03/27/2025 9:00 AM EDT Office Visit [address] [address] Naheed Zaman ANP [address] [place] [address] 04/03/2025 3:00 PM EST Office Visit [address] [address] Rut Branham MD [address] [place] [address] documented as of this encounter Visit Diagnoses Not on filedocumented in this encounter Care Teams Siebel Consultant Relationship Specialty Start Date End Date Naheed Zaman ANP [address] [place] [address] PCP - General Family Medicine 01/18/22 Real Gomez MD [address] [place] [address] 3rd [place] [address] Cardiology 10/01/24 Chico Kebede RN [address] [place] [address] Registered Nurse Family Medicine 02/03/25 02/03/25 documented as of this encounter
--- OUTSIDE RECORDS SUMMARY | 2025-02-04 14:29 | XMS_ITS | Encounter Summary ---
Author Organization [employer] Address [address] [facility] [address] 7t [place] [address] Care Team Providers Care Retail Grocer Name Role Phone Naheed Zaman Primary Care Provider [phone] Real Gomez MD Unavailable Chico Kebede RN Unavailable Reason for Visit * Reason Onset Date Comments [facility] 12/12/2023 Encounter Details Date Type Department Care Team ([facility] st Contact Info) Description 12/12/2023 Telephone [facility] ADULT DENTAL [address] [place], [place] [phone] Zay Schmidt DDS 230 [place], [place] [phone] [facility] Social History Tobacco Use Types [...] things Nearly every day 12/15/2023 3:51 PM EDT Vee Gold Feeling down, depressed, or hopeless Nearly every day 12/15/2023 3:51 PM EDT Vee Gold Trouble falling or staying asleep, or sleeping too much Nearly every day 12/15/2023 3:51 PM EDT Vee Gold Feeling tired or having little energy Nearly every day 12/15/2023 3:51 PM EDT Vee Gold Poor appetite or overeating Nearly every day [...] some way Several days 12/15/2023 3:51 PM EDVee Ball Patient Health Questionnaire-9 Score 25 12/15/2023 3:51 [...] relief. DR Anne Robins office phone number [phone] documented in this encounter Plan of Treatment Upcoming Encounters Date Type Department Care Team (Late st Contact Info) Description 02/06/2025 2:00 PM EDT Office Visit [address] [address] Rut Branham MD [address] [place] [address] 02/17/2025 11:00 AM EDT Clinical Support [address] [address] 03/27/2025 9:00 AM EDT Office Visit [address] [address] Naheed Zaman ANP [address] [place] [address] 04/03/2025 3:00 PM EST Office Visit [facility] MEDICINE 230 [place], [place] [phone] Rut Branham MD 230 [place] [address] documented as of this encounter Visit Diagnoses Not on filedocumented in this encounter Additional Health Concerns Assessment Noted Time PHQ-9 Depression Total Score: 23 024 3:25 PM EDT documented as of this encounter Care Teams Retail Grocer Relationship Specialty Start Date End Date Naheed Zaman ANP 230 [place], [place] [phone] PCP - General Family Medicine 01/18/22 Real Gomez MD [address] [place] [address] 3rd [place] [address] Cardiology 10/01/24 Chico Kebede, APRIL [address] [place] [address] Registered Nurse Family Medicine 02/03/25 02/03/25 documented as of this encounter
== END 2025-02-04 13:24 | disposition home or self-care (01) ==
LOC: HO.RHES 11:59
PROVIDERS: PCP Nurse Practitioner Primary Care; Visit Provider Student in an Organized Health Care Education/Training Program
DX: M47.819 Spondylosis without myelopathy or radiculopathy, site unspecified (principal); M79.7 Fibromyalgia; Z79.620 Long term (current) use of immunosuppressive biologic
CPT/HCPCS: 99214

== ENCOUNTER → 2025-02-04 11:58 | Outpatient (BNVA) | payer MEDICAID, SELFPAY | PROVIDERS: PCP Nurse Practitioner Primary Care; Visit Provider Student in an Organized Health Care Education/Training Program | DX: M47.819 Spondylosis without myelopathy or radiculopathy, site unspecified (principal); M79.7 Fibromyalgia; Z79.620 Long term (current) use of immunosuppressive biologic; E66.01 Morbid (severe) obesity due to excess calories; Z68.44 Body mass index [BMI] 60.0-69.9, adult; E10.9 Type 1 diabetes mellitus without complications; Z79.4 Long term (current) use of insulin | CPT/HCPCS: 99212 ==

== ENCOUNTER 2025-02-13 13:15 | Outpatient (AMB) | payer MEDICAID, SELFPAY ==
--- NOTE | 2025-02-13 13:24 | MHC.OFFVIS ---
Vital Signs 02/13/25 13:25 Height 5 ft 5 in Weight 407 lb 13.683 oz BMI 67.9 BP 130/72 Blood Pressure Location Lt brachial Position Sitting Pulse 71 Pulse Source Pulse Oximeter Intake Visit Reasons: 6 mth f/up Awake Overnight Monitor Required: Yes Awake Overnight Monitor Name: liza Mead [phone] Accompanied by: Self / Same As Patient Allergies seafood Allergy (Severe, Verified 02/13/25 13:28) Swelling Medication List - Last Reconciled 02/13/25 by Paul Cruz NP acetaminophen (Acetaminophen Extra Strength) 500 mg PO Q6H PRN ammonium lactate 12% topical ammonium lactate 12% appl topical betamethasone valerate 0.1% appl topical buprenorphine-naloxone 8-2 mg (Suboxone) 1 film sublingual TID cholecalciferol (vitamin D3) 50 mcg PO DAILY clotrimazole 1% appl topical BID cyclobenzaprine 10 mg PO TID 30 days famotidine 20 mg PO BEDTIME flash glucose sensor (FreeStyle Casey 2 Sensor kit) As directed fluoxetine 60 mg PO DAILY insulin glargine (Lantus Solostar U-100 Insulin) 55 units subcut BEDTIME insulin lispro (Humalog KwikPen (U-100) Insulin) 35 units subcut TID lidocaine 5% 1 patch topical DAILY PRN magnesium oxide 400 mg PO DAILY 2 months MDD 400mg meloxicam 15 mg PO DAILY 30 days pregabalin 100 mg PO BEDTIME 90 days pyridoxine (vitamin B6) 250 mg PO DAILY 2 months MDD 250mg secukinumab (Cosentyx Pen) 150 mg subcut QWEEK secukinumab (Cosentyx Pen) 150 mg subcut Q4W semaglutide (Ozempic) mg subcut sodium,potassium,mag sulfates 17.5-3.13-1.6 gram (Suprep Bowel Prep Kit) DILUTE as per instructions given zinc oxide 40% (Diaper Rash) topical HPI Comments Details: This is a 44-year-old male patient coming in for a preop cardiac risk stratification for his upcoming EGD and colonoscopy. Patient with a history of hypertension, diabetes, obesity, and sleep apnea who was previously seen in the office for ongoing chest discomfort and shortness of breath. Patient underwent echocardiogram, myocardial perfusion study, and pulmonary function test. Today, patient is reporting generally feeling well and is frustrated about delaying his surgery date. Patient continues to report episodes of shortness of breath which can happen both with exertion and at rest but mostly at rest. Patient is otherwise denying any exertional chest pain, palpitations, dizziness, orthopnea, PND, leg edema, presyncope or syncope. Patient is reporting compliance with all his medications. [facility] Medical History Seronegative spondyloarthropathy Vitamin D deficiency Elevated C-reactive protein (CRP) Fibromyalgia Polyarthralgia Narcotic dependence Thrombocytopenia Carpal tunnel syndrome Sleep apnea Pre-op evaluation Hx of migraines BETSY on CPAP Pre-op evaluation HTN (hypertension), benign Insulin dependent type 1 diabetes mellitus Morbid obesity Shoulder dislocation Diabetes Surgical History Hx of colonoscopy History of esophagogastroduodenoscopy (EGD) Hx of hernia repair Hx of appendectomy Family History Mother No problems noted. Brother No problems noted. Daughter No problems noted. Daughter No problems noted. Daughter No problems noted. Son No problems noted. Son No problems noted. 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 Review of Systems Const Denies daytime sleepiness, Denies difficulty sleeping, Denies snoring, Denies stops breathing during sleep and Denies weakness Card Denies chest pain, Denies rapid heart rate, Denies irregular heart rhythm, Denies claudication, Denies leg edema, Denies lightheadedness, Reports palpitations, Reports dyspnea, Denies dyspnea on exertion, Denies orthopnea, Denies paroxysmal nocturnal dyspnea and Denies slow heart rate Resp Denies cough, Reports dyspnea, Denies dyspnea on exertion and Denies snoring GI Reports no additional complaints, Denies hematochezia, Denies change in stool character and Denies dyspepsia Musc Denies abnormal gait, Denies muscle weakness and Denies numbness Neuro Denies abnormal gait, Denies numbness and Denies weakness Endo Reports palpitations Physical Exam Vital Signs: Last Vital Signs Pulse 71 02/13/25 13:25 BP 130/72 02/13/25 13:25 BMI result Body Mass Index 67.9 Const General: cooperative, healthy appearing, comfortable and no acute distress Orientation/consciousness: patient oriented x3 HEENT Head: Yes normal to inspection Neck Neck: Yes normal visual inspection, Yes trachea midline and Yes supple Chest Chest palpation & inspection: normal inspection of the chest Resp Effort & Inspection: normal respiratory effort Auscultation: clear to auscultation bilaterally, no crackles, no rales, no rhonchi and no wheezes Cardio Jugular venous distension: no JVD Palpation: normal PMI Rate: regular rate Rhythm: regular rhythm Heart sounds: S1 normal heart sound present, S2 normal heart sound present, no click, no gallops, no murmurs and no rubs Peripheral pulses: Peripheral pulses 2+ throughout GI Inspection: Yes normal to inspection Palpation (GI): Soft to palpation Auscultation: normal bowel sounds Skin General skin exam: no rashes or lesions noted Neuro General: patient oriented x3 Extrem General: Yes normal to inspection, No no pedal edema and No calf tenderness Psych Appearance: grossly normal Mental Status: mental status grossly normal Speech and movement: Normal speech and movement present Office Procedures EKG Details: EKG today showed normal sinus rhythm, rate 69 beats per minute, [place], [place]. [address]-[id number], Complete Assessment & Plan Assessment & Plan (1) Chest pain: Code(s): R07.9 - Chest pain, unspecified Category: Medical Plan: 09/18/2024-patient had an echo study that showed normal LV systolic function with an ejection fraction at 59% with no wall motion or valvular abnormalities. 09/20/2024-patient underwent a myocardial perfusion study which was normal. Given his normal cardiac test results, these symptoms are less likely to be of cardiac origin. Given his ongoing shortness of breath, ordered a pulmonary function test that was slightly abnormal and has been referred to pulmonology for further evaluation. Additionally, we discussed that his symptoms may be related to sedentary lifestyle obesity. Encouraged to gradually increase physical activity and engage in regular low-impact exercises and adhere to his weight management strategies. (2) HTN (hypertension) with goal to be determined: Code(s): I10 - Essential (primary) hypertension Category: Medical Plan: Patient's blood pressure is well-controlled today. Patient was previously started on lisinopril by his PCP however patient is no longer taking this. Advised to continue monitoring blood pressures at home with a goal less than 130/80. Advised low-salt diet. (3) Diabetes: Code(s): E11.9 - Type 2 diabetes mellitus without complications Category: Medical Plan: Continue diabetes management with an A1c goal of less than 7%. Followed by PCP. (4) Sleep apnea treated with continuous positive airway pressure (CPAP): Code(s): G47.30 - Sleep apnea, unspecified Category: Medical Plan: Continue CPAP therapy. (5) Morbid obesity: Code(s): E66.01 - Morbid (severe) obesity due to excess calories Category: Medical Plan: Patient is currently pursuing Ozempic therapy for weight loss with his PCP. Advised diet and exercise. (6) Preop cardiovascular exam: Code(s): Z01.810 - Encounter for preprocedural cardiovascular examination Plan: Patient can proceed with his upcoming EGD and colonoscopy with a consideration that patient is at a low cardiac risk. This note was generated using voice recognition software. While every effort has been made to ensure accuracy and proper ditto machine operator, there may be occasional errors that could affect the content or meaning of the described symptoms. Orders: Orders AMB EKG-In Office Today Z01.810 - Encounter for preprocedural cardiovascular examination Coding Level of Care Code Est Pt Level 3 (40362) Complex EM visit Add On G2211 Diagnoses Chest pain R07.9 HTN (hypertension) with goal to be determined I10 Diabetes E11.9 Sleep apnea treated with continuous positive airway pressure (CPAP) G47.30 Morbid obesity E66.01 Preop cardiovascular exam Z01.810 CPT Codes EKG - CPT: 36928-[id number], Complete ([id number]) Time Spent (min) 29 Comment Time spent in reviewing the chart, test results, assessment, counseling and documentation.
[2025-02-13 13:25] VITALS: BP 130/72; PULSE 71; BMI 67.9
--- OUTSIDE RECORDS SUMMARY | 2025-02-13 15:16 | XMS_ITS | Encounter Summary ---
Author Organization [employer] Address [address] [facility] [facility] [address] [facility] [address] 7[address] [place] [address] Care Team Providers Care Legal Cashier Name Role Phone Naheed Zaman Primary Care Provider [phone] Real Gomez MD Unavailable Chico Kebede RN Unavailable [phone] Reason for Visit * Reason Comments Med Refill Encounter Details Date Type Department Care Team (Late st Contact Info) Description 08/18/2023 Refill [facility] MEDICINE 230 [place] [address] Naheed Zaman ANP 230 [place] [address] Chronic low back pain without sciatica, unspecified [...] Care Team (Late st Contact Info) Description 02/17/2025 11:00 AM EDT Clinical Support [address] [address] 03/07/2025 10:00 AM EDT Telemedicine [address] [address] Marline Olivera, OzzieD [address] [place] [address] 03/27/2025 9:00 AM EDT Office Visit [address] [address] Naheed Zaman ANP [address] [place] [address] 04/03/2025 3:00 PM EST Office Visit [address] [address] Rut Branham MD [address] [place] [address] documented as of this encounter Visit Diagnoses Diagnosis Chronic low back pain without sciatica, unspecified back pain laterality documented in this encounter Additional Health Concerns Assessment Noted Time PHQ-9 Depression Total Score: 6 11/18/ 23 3:29 PM EDT documented as of this encounter Care Teams Legal Cashier Relationship Specialty Start Date End Date Naheed Zaamn ANP 230 [place] [address] PCP - General Family Medicine 01/18/22 Real Gomez MD [address] [place] [address] 3rd [place] [address] Cardiology 10/01/24 Chico Kebede RN [address] [place] [address] Registered Nurse Family Medicine 02/03/25 02/03/25 documented as of this encounter
--- OUTSIDE RECORDS SUMMARY | 2025-02-13 15:16 | XMS_ITS | Encounter Summary ---
Author Organization [employer] Address [address] 7t [place] [address] Care Team Providers Care Nuclear Powerplant Mechanic Name Role Phone Naheed Zaman Primary Care Provider [phone] Real Gomez MD Unavailable Chico Kebede RN Unavailable [phone] Reason for Visit * Reason Onset Date Comments Med Refill 11/20/2024 Encounter Details Date Type Department Care Team (Late st Contact Info) Description 11/20/2024 Refill [facility] MEDICINE 230 [place] [address] Rut Branham MD 230 [place] [address] Uncomplicated opioid dependence (CMS/HCC) Social History Tobacco [...] Description 02/17/2025 11:00 AM EDT Clinical Support [address] [address] 03/07/2025 10:00 AM EDT Telemedicine [address] [address] Marline Olivera, PharmD [address] [place] [address] 03/27/2025 9:00 AM EDT Office Visit [address] [address] Naheed Zaman, ANP [address] [place] [address] 04/03/2025 3:00 PM EST Office Visit [address] [address] Rut Branham MD 230 [place] [address] documented as of this encounter Visit Diagnoses Diagnosis Uncomplicated opioid dependence (CMS/HCC) documented in this encounter Additional Health Concerns Assessment Noted Time PHQ-9 Depression Total Score: 7 10/05/19 25 2:06 PM EDT documented as of this encounter Care Teams Nuclear Powerplant Mechanic Relationship Specialty Start Date End Date Naheed Zaman ANP 230 [place] [address] PCP - General Family Medicine 01/18/22 Real Gomez MD [address] [place] [address] 3rd [place] [address] Cardiology 10/01/24 Chico Kebede RN 505 [place] [address] Registered Nurse Family Medicine 02/03/25 02/03/25 documented as of this encounter
--- OUTSIDE RECORDS SUMMARY | 2025-02-13 15:16 | XMS_ITS | Encounter Summary ---
Author Organization [facility] Address [address] [facility] 7t [place] [address] Care Team Providers Care Shower Room Attendant Name Role Phone Naheed Zaman Primary Care Provider [phone] Real Gomez MD Unavailable Chico Kebede RN Unavailable [phone] Encounter Details Date Type Department Care Team (Latest Contact Info) Description 12/29/2021 Abstract [facility] CONVERSIONS Dental, Provider, DDS Social [...] Description 02/17/2025 11:00 AM EDT Clinical Support [facility] MEDICINE [address] [place] [address] 03/07/2025 10:00 AM EDT Telemedicine [facility] MEDICINE [address] [place] [address] Marline Olivera, OzzieD [address] [place] [address] 03/27/2025 9:00 AM EDT Office Visit [facility] MEDICINE [address] [place] [address] Naheed Zaman ANP 230 [place] [address] 04/03/2025 3:00 PM EST Office Visit [facility] MEDICINE 230 [place], [place] [phone] Rut Branham MD 230 [place] [address] documented as of this encounter Visit Diagnoses Not on filedocumented in this encounter Care Teams Shower Room Attendant Relationship Specialty Start Date End Date Naheed Zaman ANP 230 [place] [address] PCP - General Family Medicine 01/18/22 Real Gomez MD [address] [place] [address] 3rd [place] [address] Cardiology 10/01/24 Chico Kebede RN [address] [place] [address] Registered Nurse Family Medicine 02/03/25 02/03/25 documented as of this encounter
--- OUTSIDE RECORDS SUMMARY | 2025-02-13 15:16 | XMS_ITS | Encounter Summary ---
Author Organization [employer] Address [address] 7t [place] [address] Care Team Providers Care Manager Reading Name Role Phone Naheed Zaman Primary Care Provider [phone] Real Gomez MD Unavailable Chico Kebede RN Unavailable [phone] Reason for Visit * Reason Comments Med Refill Encounter Details Date Type Department Care Team (Late st Contact Info) Description 09/26/2024 Refill [facility] 230 [place] [address] Desirae Cowan MD 230 [place], [place] [phone] Social History Tobacco Use Types Packs/Day Years [...] Description 02/17/2025 11:00 AM EDT Clinical Support [facility] [address] [place] [address] 03/07/2025 10:00 AM EDT Telemedicine [facility] [address] [place] [address] Marline Olivera, PharmD [address] [place] [address] 03/27/2025 9:00 AM EDT Office Visit [facility] [address] [place] [address] Naheed Zaman ANP [address] [place] [address] 04/03/2025 3:00 PM EST Office Visit [facility] [address] [place] [address] Rut Branham MD [address] [place] [address] documented as of this encounter Visit Diagnoses Not on filedocumented in this encounter Additional Health Concerns Assessment Noted Time PHQ-9 Depression Total Score: 25 024 8:12 AM EDT documented as of this encounter Care Teams Manager Reading Relationship Specialty Start Date End Date Naheed Zaman ANP 230 [place] [address] PCP - General Family Medicine 01/18/22 Real Gomez MD [address] [place] [address] 3rd [place] [address] Cardiology 10/01/24 Chico Kebede RN [address] [place] [address] Registered Nurse Family Medicine 02/03/25 02/03/25 documented as of this encounter
--- OUTSIDE RECORDS SUMMARY | 2025-02-13 15:16 | XMS_ITS | Clinical Summary ---
Author Organization [facility] Address [address] [place] [address] Care Team Providers Care Technical Sales Engineer Name Role Phone Unavailable Primary Care Provider [...] recurrent major depressive disorder, with psychotic features ([facility]) 06/10/2024 Assessment & Plan (06/18/2024 11:18 AM EST): Patient refused to be seen, [place] steam fitter supervisor maintenance was notified. Assessment & Plan (06/10/2024 5:36 [...] on video call until arrival of [place] Police with recommendation to section patient to [...] 11/14/2023 10/17/2023 Alcohol and Drug Screen 05/29/2024 [id number] ( season) 01/27/202512/29/2 021, 12/10/2020 Imm-Influenza (#1) 2025 02/27/2012, 01/27/2011 Diabetes Screening 10/08/2025 10/08/2024, 0 09/12/2024, 05/16/2024, Additional history exists Lipid Screening 04/24/2029 04/24/2024, 05/29, 02/27/2020 Imm-DTaP/Tdap/Td (3 - Td or Tdap) 10/16/2033 024, 03/15/2011 Hepatitis C Screening Completed 10/11/2023 HIV Screening Completed 12/13/2023, 11/26, 12/16/2021 Insurance [facility] MEDICAID
--- OUTSIDE RECORDS SUMMARY | 2025-02-13 15:16 | XMS_ITS | Encounter Summary ---
Author Organization [employer] Address [address] 7t [place] [address] Care Team Providers Care Issuer Name Role Phone Naheed Zaman Primary Care Provider [phone] Real Gomez MD Unavailable Chico Kebede RN Unavailable [phone] Reason for Visit * Reason Onset Date Comments callback requested 04/23/2024 Encounter Details Date Type Department Care Team ([facility] st Contact Info) Description 04/23/2024 Telephone [facility] MEDICINE 230 [place] [address] Naheed Zaman ANP 230 [place] [address] callback requested Social History Tobacco Use Types [...] returning call to Madie Olson Callback number [phone] documented in this encounter Plan of Treatment Upcoming Encounters Date Type Department Care Team (Late st Contact Info) Description 02/17/2025 11:00 AM EDT Clinical Support [address] [address] 03/07/2025 10:00 AM EDT Telemedicine [facility] MEDICINE [address] [place] [address] Marline Olivera, OzzieD [address] [place] [address] 03/27/2025 9:00 AM EDT Office Visit [facility] MEDICINE [address] [place] [address] Naheed Zaman, ANP 230 [place] [address] 04/03/2025 3:00 PM EST Office Visit [facility] MEDICINE [address] [place] [address] Rut Branham MD 230 [place] [address] documented as of this encounter Visit Diagnoses Not on filedocumented in this encounter Additional Health Concerns Assessment Noted Time PHQ-9 Depression Total Score: 25 024 8:12 AM EDT documented as of this encounter Care Teams Issuer Relationship Specialty Start Date End Date Naheed Zaman ANP 230 [place] [address] PCP - General Family Medicine 01/18/22 Real Gomez MD [address] [place] [address] 3rd [place] [address] Cardiology 10/01/24 Chico Kebede, APRIL 505 [place] [address] Registered Nurse Family Medicine 02/03/25 02/03/25 documented as of this encounter
--- OUTSIDE RECORDS SUMMARY | 2025-02-13 15:16 | XMS_ITS | Encounter Summary ---
Author Organization [employer] [facility] Address [address] [facility] 7t [place] [address] Care Team Providers Care Integration Developer Name Role Phone Naheed Zaman Primary Care Provider [phone] Real Gomez MD Unavailable Chico Kebede RN Unavailable [phone] Reason for Visit * Reason Comments Med Refill Encounter Details Date Type Department Care Team (Late Contact Info) Description 02/02/2023 Refill [facility] MEDICINE [address] [place] [address] Rut Branham MD 230 [place] [address] Uncomplicated opioid dependence (CMS/HCC) Social History Tobacco [...] Department Care Team (Late Contact Info) Description 02/17/2025 11:00 AM EDT Clinical Support [facility] MEDICINE 230 [place] [address] 03/07/2025 10:00 AM EDT Telemedicine [address] [address] Marline Olivera PharmD 230 [place] [address] 03/27/2025 9:00 AM EDT Office Visit [address] [address] Naheed Zaman ANP 230 [place] 04/03/2025 3:00 PM EST Office Visit [address] [address] Rut Branham MD [address] [place] [address] documented as of this encounter Visit Diagnoses Diagnosis Uncomplicated opioid dependence (CMS/HCC) documented in this encounter Additional Health Concerns Assessment Noted Time PHQ-9 Depression Total Score: 6 11/19/19 23 3:29 PM EDT documented as of this encounter Care Teams Integration Developer Relationship Specialty Start Date End Date Naheed Zaman ANP [address] [place] [address] PCP - General Family Medicine 01/18/22 Real Gomez MD [address] [place] [address] 3rd [place] [address] Cardiology 10/01/24 Chico Kebede, APRIL 505 [place] [address] Registered Nurse Family Medicine 02/03/25 02/03/25 documented as of this encounter
--- OUTSIDE RECORDS SUMMARY | 2025-02-13 15:16 | XMS_ITS | Encounter Summary ---
Author Organization [employer] Address [address] 7t [place] [address] Care Team Providers Care Software Testing Specialist Name Role Phone Naheed Zaman Primary Care Provider [phone] Real Gomez MD Unavailable Chico Kebede RN Unavailable [phone] Reason for Visit * Reason Comments Med Refill Encounter Details Date Type Department Care Team (Late st Contact Info) Description 09/14/2023 Refill [facility] MEDICINE 230 [place] [address] Dayna Cardenas MD 230 [place] [address] Uncomplicated opioid dependence (CMS/HCC) Social History Tobacco Use Types Packs/Day Years Used Date Smoking Tobacco: Never Passive Smoke Exposure: Never Smokeless Tobacco: Never Alcohol Use Standard Drinks/Week Comments Never 0 (1 standard drink = 0.6 oz pur e alcohol) Depression Answer Date Recorded Patient Health Questionnaire-9 Score 6 11/18/2022 Housing Stability Answer Date Recorded What is your housing situation today? I have zack terjo 03/13/[address] you li [...] Description 02/17/2025 11:00 AM EDT Clinical Support [address] [address] 03/07/2025 10:00 AM EDT Telemedicine [address] [address] Marline Olivrea PharmD [address] [place] [address] 03/27/2025 9:00 AM EDT Office Visit [address] [address] Naheed Zaman ANP [address] [place] [address] 04/03/2025 3:00 PM EST Office Visit [address] [address] Rut Branham MD [address] [place] [address] documented as of this encounter Visit Diagnoses Diagnosis Uncomplicated opioid dependence (CMS/HCC) documented in this encounter Additional Health Concerns Assessment Noted Time PHQ-9 Depression Total Score: 6 11/18/ 23 3:29 PM EDT documented as of this encounter Care Teams Software Testing Specialist Relationship Specialty Start Date End Date Naheed Zaman ANP 230 [place] [address] PCP - General Family Medicine 01/18/22 Real Gomez MD [address] [place] [address] 3rd [place] [address] Cardiology 10/01/24 Chico Kebede RN 505 [place] [address] Registered Nurse Family Medicine 02/03/25 02/03/25 documented as of this encounter
--- OUTSIDE RECORDS SUMMARY | 2025-02-13 15:16 | XMS_ITS | Clinical Summary ---
Author Organization [facility] Address [address] [place] [address] Phone Care Team Providers Care Fiscal Accounting Clerk Name Role Phone Naheed Zaman NP Primary Care Provider [phone] Allergies Active Allergy Reactions Criticality Noted Date [...] 6 0.0-69.9, adult ([facility] V24, [facility] V28) 04/17/2024 Acquired pes planus 05/11/2017 Pure hypercholesterolemia 05/10/2017 Pulmonary hypertension ([facility] V24, [facility] V28 ) 05/10/2017 Overview (04/17/2024): Mild, ECHO [...] with renal complications ([facility] V24, [facility] V28) 04/30/2017 Spondylosis of lumbar region without myelopathy or radiculopathy 04/26/2017 Overview (04/17/2024): Saw [facility] Rheumatology BETSY (obstructive sleep apnea) 04/26/2017 Overview (04/17/2024): Polysomnography 08/05/2009, [facility] :On cpap 14 cm H2O 10/23/2017 Home Sleep Study insufficient data. 08/2018 - Pulm ordered split night study. Diabetes mellitus type 2 wit h neurological manifestations ([facility] V24, [facility] V28) 04/26/2017 CTS (carpal tunnel syndrome) 04/26/2017 [...] with renal complications ([facility] V24, [facility] V28) 04/30/2017 DX:DM (diabetes mellitus), t ype 2 with renal complications (HCC) Proteinuria 04/30/2017 DX:Proteinuria Diabetes mellitus type 2 wit h neurological manifestations ([facility] V24, [facility] V28) 04/26/2017 DX:Diabetes mellitus type 2 with [...] 6 0.0-69.9, adult ([facility] V24, [facility] V28) 04/26/2017 DX:Morbid obesity wit h BMI of 60.0-69.9, adult ([facility]) BETSY (obstructive sleep apnea) 04/26/2017 DX :BETSY (obstructive sleep apnea); COMMENT: Polysomnography 08/05/2009, [facility] :On cpap 14 cm H2O Pulmonary hypertension ([facility] V24, [facility] V28) 05/10/2017 DX:Pulmonary hypertension (H CC); COMMENT: Mild, ECHO 10[facility]21/10 [facility] [...] (02/27/2020) Pathologist [facility] Urine Albumin Creatinine Ratio Abstracted [facility] Provider HEALTH MAINTENANCE Final Result * Annual BMP Blood Test (02/27/2020) Pathologist [facility] Annual BMP Blood Test Abstracted Result [facility] Provider HEALTH MAINTENANCE Final Result * (ABNORMAL) Hemoglobin A1c (02/27/2020) [facility] Hemoglobin A1C 6.9(A) <=6.5 % Blood Venous blood specimen / Unknown Result [facility] Provider LAB BLOOD ORDERABLES Brunilda l Result * Lipid panel (02/27/2020) [facility] LDL/HDL Ratio 3 0 - 4 Triglycerides 91 0 - 150 mg/dL Cholesterol 145 0 - 200 mg/dL HDL 58 >=40 mg/dL LDL Cholesterol 69 0 - 100 mg/dL Blood Venous blood specimen / Unknown Result [facility] Provider LAB BLOOD ORDERABLES Brunilda l Result * Hepatitis C Screening (06/22/2017) Pathologist [facility] Hepatitis C Screening Abstracted us Historical Provider HEALTH MAINTENANCE Final Result from Last 3 Months or Most Recently Relevant to Health Maintenance Insurance MEDICAID - [place] Care Teams Fiscal Accounting Clerk Relationship Specialty Start Date End Date Naheed Zaman NP [address] [place] [phone] PCP - General 02/21/24
--- OUTSIDE RECORDS SUMMARY | 2025-02-13 15:17 | XMS_ITS | Encounter Summary ---
Author Organization [employer] Address [address] [facility] [address] 7t [place] [address] Care Team Providers Care Plumbing Mechanic Name Role Phone Naheed Zaman Primary Care Provider [phone] Real Gomez MD Unavailable Chico Kebede RN Unavailable [phone] Reason for Visit * Reason Onset Date Comments Med Refill 01/03/2025 Encounter Details Date Type Department Care Team (Late st Contact Info) Description 01/03/2025 Refill [facility] 230 [place] [address] Rut Branham MD 230 [place] [address] Uncomplicated opioid dependence (CMS/HCC) Social History Tobacco [...] Description 02/17/2025 11:00 AM EDT Clinical Support [address] [address] 03/07/2025 10:00 AM EDT Telemedicine [address] [address] Marline Olivera, PharmD [address] [place] [address] 03/27/2025 9:00 AM EDT Office Visit [address] [address] Naheed Zaman, ANP [address] [place] [address] 04/03/2025 3:00 PM EST Office Visit [address] [address] Rut Branham MD 230 [place] [address] documented as of this encounter Visit Diagnoses Diagnosis Uncomplicated opioid dependence (CMS/HCC) documented in this encounter Additional Health Concerns Assessment Noted Time PHQ-9 Depression Total Score: 7 10/05/19 25 2:06 PM EDT documented as of this encounter Care Teams Plumbing Mechanic Relationship Specialty Start Date End Date Naheed Zaman ANP 230 [place] [address] PCP - General Family Medicine 01/18/22 Real Gomez MD [address] [place] [address] 3rd [place] [address] Cardiology 10/01/24 Chico Kebede RN 505 [place] [address] Registered Nurse Family Medicine 02/03/25 02/03/25 documented as of this encounter
--- OUTSIDE RECORDS SUMMARY | 2025-02-13 15:17 | XMS_ITS | Encounter Summary ---
Author Organization [employer] [facility] Address [address] [facility] 7t [place] [address] Care Team Providers Care Director Custom Name Role Phone Naheed Zaman Primary Care Provider [phone] Real Gomez MD Unavailable Chico Kebede RN Unavailable [phone] Encounter Details Date Type Department Care Team ([facility] Contact Info) Description 07/28/2022 Abstract [facility] 230 [place] [address] Zay Schmidt DDS 230 [place] [address] Social History Tobacco Use Types Packs/Day Years [...] Upcoming Encounters Date Type Department Care Team ([facility] Contact Info) Description 02/17/2025 11:00 AM EDT Clinical Support [facility] MEDICINE 230 [place] [address] 03/07/2025 10:00 AM EDT Telemedicine [address] [address] Marline Olivera PharmD [address] [place] [address] 03/27/2025 9:00 AM EDT Office Visit [address] [address] Naheed Zaman ANP [address] [place] [address] 04/03/2025 3:00 PM EST Office Visit [address] [address] Rut Branham MD [address] [place] [address] documented as of this encounter Visit Diagnoses Not on filedocumented in this encounter Care Teams Director Custom Relationship Specialty Start Date End Date Naheed Zaman ANP [address] [place] [address] PCP - General Family Medicine 01/18/22 Real Gomez MD [address] [place] [address] 3rd [place] [address] Cardiology 10/01/24 Chico Kebede, APRIL [address] [place] [address] Registered Nurse Family Medicine 02/03/25 02/03/25 documented as of this encounter
--- OUTSIDE RECORDS SUMMARY | 2025-02-13 15:17 | XMS_ITS | Encounter Summary ---
Author Organization [employer] Address [address] 7t [place] [address] Care Team Providers Care Campus Coordinator Name Role Phone Naheed Zaman Primary Care Provider [phone] Real Gomez MD Unavailable Chico Kebede RN Unavailable [phone] Reason for Visit * Reason Onset Date Comments Med Refill 01/03/2025 Encounter Details Date Type Department Care Team (Late st Contact Info) Description 01/03/2025 Refill [facility] MEDICINE 230 [place] [address] Naheed Zaman ANP 230 [place] [address] Gastroesophageal reflux disease, unspecified whether esophagitis present; [...] Description 02/17/2025 11:00 AM EDT Clinical Support [address] [address] 03/07/2025 10:00 AM EDT Telemedicine [address] [address] Marline Olivera, PharmD [address] [place] [address] 03/27/2025 9:00 AM EDT Office Visit [address] [address] Naheed Zaman, JOSIAH [address] [place] [address] 04/03/2025 3:00 PM EST Office Visit [facility] 230 [place] [address] Rut Branham MD 230 [place] [address] documented as of this encounter Visit Diagnoses Diagnosis Gastroesophageal reflux disease, unspecified whether esophagitis present Essential hypertension Unspecified essential hypertension Chronic low back pain without sciatica, unspecified back pain laterality documented in this encounter Additional Health Concerns Assessment Noted Time PHQ-9 Depression Total Score: 7 10/05/19 25 2:06 PM EDT documented as of this encounter Care Teams Campus Coordinator Relationship Specialty Start Date End Date Naheed Zaman ANP 230 [place] [address] PCP - General Family Medicine 01/18/22 Real Gomez MD [address] [place] [address] Drive 3rd [place] [address] Cardiology 10/01/24 Chico Kebede, APRIL 505 [place] [address] Registered Nurse Family Medicine 02/03/25 02/03/25 documented as of this encounter
--- OUTSIDE RECORDS SUMMARY | 2025-02-13 15:17 | XMS_ITS | Encounter Summary ---
Author Organization [employer] Address [address] [facility] 7t [place] [address] Care Team Providers Care Command And Control Name Role Phone Naheed Zaman Primary Care Provider [phone] Real Gomez MD Unavailable Chico Kebede RN Unavailable [phone] Reason for Visit * Reason Onset Date Comments Durable Medical Equipment 10/04/2022 Encounter Details Date Type Department Care Team (Late st Contact Info) Description 10/04/2022 Telephone [facility] [address] [place] [address] Naheed Zaman ANP [address] [place] [address] Durable Medical Equipment Social History Tobacco Use [...] for Compressions socks. Please contact pt at [phone] documented in this encounter Plan of Treatment Upcoming Encounters Date Type Department Care Team (Late st Contact Info) Description 02/17/2025 11:00 AM EDT Clinical Support [address] [address] 03/07/2025 10:00 AM EDT Telemedicine [address] [address] Marilne Olivera PharmD [address] [place] [address] 03/27/2025 9:00 AM EDT Office Visit [address] [address] Naheed Zaman ANP [address] [place] [address] 04/03/2025 3:00 PM EST Office Visit [address] [address] Rut Branham MD [address] [place] [address] documented as of this encounter Visit Diagnoses Not on filedocumented in this encounter Care Teams Command And Control Relationship Specialty Start Date End Date Naheed Zaman ANP [address] [place] [address] PCP - General Family Medicine 01/18/22 Real Gomez MD [address] [place] [address] 3rd [place] [address] Cardiology 10/01/24 Chico Kebede, APRIL [address] [place] [address] Registered Nurse Family Medicine 02/03/25 02/03/25 documented as of this encounter
--- OUTSIDE RECORDS SUMMARY | 2025-02-13 15:17 | XMS_ITS | Encounter Summary ---
Author Organization [employer] Address [address] [facility] [address] 7[address] [place] [address] Care Team Providers Care Administrative Law Judge Name Role Phone Naheed Zaman Primary Care Provider Real Gomez MD Unavailable Chico Kebede RN Unavailable [phone] Reason for Visit * Reason Comments Med Refill Encounter Details Date Type Department Care Team (Late st Contact Info) Description 01/30/2025 Refill [facility] [address] [place] [address] Rut Branham MD [address] [place] [address] Uncomplicated opioid dependence (CMS/HCC) Social History Tobacco [...] Description 02/17/2025 11:00 AM EDT Clinical Support [address] [address] 03/07/2025 10:00 AM EDT Telemedicine [address] [address] Marline Olivera, PharmD [address] [place] [address] 03/27/2025 9:00 AM EDT Office Visit [address] [address] Naheed Zaman, ANP [address] [place] [phone] 04/03/2025 3:00 PM EST Office Visit [address] [address] Rut Branham MD [address] [place] [address] documented as of this encounter Visit Diagnoses Diagnosis Uncomplicated opioid dependence (CMS/HCC) documented in this encounter Additional Health Concerns Assessment Noted Time PHQ-9 Depression Total Score: 7 10/05/19 25 2:06 PM EDT documented as of this encounter Care Teams Administrative Law Judge Relationship Specialty Start Date End Date Naheed Zaman ANP [address] [place] [address] PCP - General Family Medicine 01/18/22 Rael Gomez MD [address] [place] [address] 3rd [place] [address] Cardiology 10/01/24 Chico Kebede, APRIL [address] [place] [address] Registered Nurse Family Medicine 02/03/25 02/03/25 documented as of this encounter
--- OUTSIDE RECORDS SUMMARY | 2025-02-13 15:17 | XMS_ITS | Encounter Summary ---
Author Organization [employer] Address [address] [facility] [address] 7t [place] [address] Care Team Providers Care Phone Specialist Name Role Phone Naheed Zaman Primary Care Provider [phone] Real Gomez MD Unavailable Chico Kebede RN Unavailable [phone] Reason for Visit * Reason Onset Date Comments Med Refill 10/30/2024 Encounter Details Date Type Department Care Team (Late st Contact Info) Description 10/30/2024 Refill [facility] [address] [place] [address] Naheed Zaman ANP [address] [place] [address] Chronic low back pain without sciatica, unspecified [...] Description 02/17/2025 11:00 AM EDT Clinical Support [address] [address] 03/07/2025 10:00 AM EDT Telemedicine [address] [address] Marline Olivera, PharmD [address] [place] [address] 03/27/2025 9:00 AM EDT Office Visit [address] [address] Naheed Zaman, ANP [address] [place] [address] 04/03/2025 3:00 PM EST Office Visit [address] [address] Rut Branham MD [address] [place] [address] documented as of this encounter Visit Diagnoses Diagnosis Chronic low back pain without sciatica, unspecified back pain laterality documented in this encounter Additional Health Concerns Assessment Noted Time PHQ-9 Depression Total Score: 7 10/05/19 25 2:06 PM EDT documented as of this encounter Care Teams Phone Specialist Relationship Specialty Start Date End Date Naheed Zaman ANP [address] [place] [address] PCP - General Family Medicine 01/18/22 Real Gomez MD [address] [place] [address] 3rd [place] [address] Cardiology 10/01/24 Chico Kebede RN [address] [place] [address] Registered Nurse Family Medicine 02/03/25 02/03/25 documented as of this encounter
--- OUTSIDE RECORDS SUMMARY | 2025-02-13 15:17 | XMS_ITS | Encounter Summary ---
Author Organization [employer] Address [address] [facility] [address] [place] [address] Care Team Providers Care Town Manager Name Role Phone Naheed Zaman Primary Care Provider [phone] Real Gomez MD Unavailable Chico Kebede RN Unavailable [phone] Reason for Visit * Reason Onset Date Comments [facility] 12/12/2023 Encounter Details Date Type Department Care Team ([facility] st Contact Info) Description 12/12/2023 Telephone [facility] [address] [place], [place] [phone] Zay Schmidt DDS [address] [place], [place] [phone] [facility] Social History Tobacco Use Types Packs/Day [...] relief. DR Anne Robins office phone number [phone] documented in this encounter Plan of Treatment Upcoming Encounters Date Type Department Care Team (Late st Contact Info) Description 02/17/2025 11:00 AM EDT Clinical Support [address] [address] 03/07/2025 10:00 AM EDT Telemedicine [address] [address] Marline Olivera, OzzieD [address] [place] [address] 03/27/2025 9:00 AM EDT Office Visit [address] [address] Naheed Zaman, ANP [address] [place] [address] 04/03/2025 3:00 PM EST Office Visit [facility] [address] [place], [place] [phone] Rut Branham MD [address] [place], [place] [phone] documented as of this encounter Visit Diagnoses Not on filedocumented in this encounter Additional Health Concerns Assessment Noted Time PHQ-9 Depression Total Score: 23 024 3:25 PM EDT documented as of this encounter Care Teams Town Manager Relationship Specialty Start Date End Date Naheed Zaman ANP [address] [place], [place] [phone] PCP - General Family Medicine 01/18/22 Real Gomez MD [address] [place] [address] [place] [address] Cardiology 10/01/24 Chico Kebede, APRIL [address] [place] [address] Registered Nurse Family Medicine 02/03/25 02/03/25 documented as of this encounter
--- OUTSIDE RECORDS SUMMARY | 2025-02-13 15:17 | XMS_ITS | Clinical Summary ---
Author Organization [employer] Address [address] [place] [address] Care Team Providers Care Planer Chain Offbearer Name Role Phone Sofia Mitchell Primary Care Provider [phone] Real Gomez MD Unavailable Allergies Active Allergy Reactions Criticality Noted Date Comments Shellfish Allergy 05/02/2022 Medications * This document contains information received from the source organization and may not represent a complete record from that organization. Alcohol Swabs (Alcohol Prep) 70 % pads USE FOUR TIMES DAILY WITH INSULIN Active Blood Glucose Monitoring Suppl (FreeStyle Graham Lite) w/Device kit TEST BLOOD SUGAR FOUR TIMES DAILY Active FREESTYLE LITE test strip TEST BLOOD SUGAR FOUR TIMES DAILY Active glucose blood (FREESTYLE LITE) test strip check fingerstick 4 times a day Active Sure Comfort Pen [place] 31G X 5 MM misc USE FOUR [...] Active beta carotene (vitamin A) 3 MG (94501 UT) capsule TAKE 2 CAPSULES BY MOUTH EVERY DAY FOR 2 WEEKS 022 Active EPINEPHrine (Epipen) 0.3 MG/0.3ML injection syringeIndicatio ns:Allergy to shellfish INJECT INTRAMUSCULARLY DIRECTED ON PACKAGE AND GO TO EMERGENCY ROOM 2 each 023 Active Blood Pressure Monitor kitIndications:P ulmonary hypertension ([facility]/HCC) 1 kit in the morning. 1 kit 024 Active atorvastatin (Lipitor) 10 MG tabletIndication s:Type 2 diabetes mellitus with hyperlipidemia (CMS/HCC) ([facility]) Take 1 tablet (10 mg) by mouth at bedtime. 90 tablet 3 024 Active GaviLAX 17 GM/SCOOP powder TAKE DIRECTED BY MOUTH THE DAY BEFORE YOUR PROCEDURE. 024 Active chlorhexidine (Peridex) 0.12 % solution Swish 15 mL morning and night for 1 minute. Spit, do not swallow. Do not eat or drink for 30 minutes following use. 473 mL 024 Active Continuous Glucose Property Investor (FreeStyle Casey 2 [place]) deviceIndication s:Diabetes mellitus with albuminuria (CMS/HCC) ([facility]) Scan sensor every 8 hours 1 each 024 Active Continuous Glucose Sensor (FreeStyle Casey 2 Sensor) miscIndications: Diabetes mellitus with albuminuria (CMS/HCC) ([facility]) Apply 1 sensor every 14 days 2 each 024 Active glucose (BD Glucose) 5 g chewable tabletIndication s:Type 2 diabetes mellitus with hyperlipidemia (CMS/HCC) ([facility]) Chew 3 tablets (15 g) if needed [...] SKIN 45 g 2 025 2024 Discontinued FLUoxetine (PROzac) 20 MG capsuleIndicatio ns:Severe episode [...] Health Integration Plan Internal Follow up with [facility] Patient Self Plan Patient [facility] as [facility], Comply with medication [...] Health Integration Plan Internal Follow up with [facility] Patient Self Plan Patient to [facility] as needed, Comply with medication [...] Health Integration Plan Internal Follow up with [facility] Patient Self Plan Patient to utilize skills provided in intervention , Patient to reach out to [facility] team as needed, and Patient to reach [...] Health Integration Plan Internal Follow up with [facility] External OP psychiatry Referral Patient Self Plan Patient to [facility] as needed, Comply with medication [...] Patient to reach out to [facility] team as needed, Comply with medication , [...] explained that she tried referring pt to [facility] and other centers and pt;s can not [...] hypertension 05/10/2017 Overview (07/28/2022): Mild, ECHO 10/21/10 [facility], EF 65-70% H. pylori infection 05/10/2017 Overview (07/28/2022): + serology 08/07/2009, uncertain if treated Gout 05/10/2017 Elevated liver enzymes 05/10/2017 Overview (07/28/2022): fatty liver Arthritis 05/10/2017 Overview (07/28/2022): Mild L knee, Mod L shoulder arthropathy Asthma 05/10/2017 Spondylosis of lumbar region without myelopathy or radiculopathy 04/26/2017 Overview (11/22/2024): Saw [facility] Rheumatology, now on humira [...] sleep apnea) 05/18/2015 Overview (11/22/2024): Polysomnography 08/05/2009, [facility]: On cpap 14 cm H2O 10/23/2017 Home Sleep Study insufficient data. 08/2018 - Pul ordered split night study. Titration was done 03/2023 and titrated to start cpap at [id number]. HST c/w AHI 124/hr and oxygen fritz to 70%, he was titrated Follows w/ [facility] Neurology and Sleep, Leyla Alvarado 05/18/2015 Encounters * This document contains information received from the source organization and may not represent a complete record from that organization. Date Type Department Care Team Description 02/06/2025 2:00 PM EDT Clinical Support [address] [address] Tristen Chen RN Uncomplicated opioid dependence ([facility]) 02/06/2025 Travel 02/03/2025 Patient Outreach [address] [address] Sofia Mitchell ANP Care Coordination ([facility]/W Matthew Mccain f/u, program graduation) 02/03/2025 Patient Outreach [address] [address] Sofia Mitchell ANP Care Management ([facility]- f/u call) 01/30/[address] [address] Rut Brnaham MD Uncomplicated opioid dependence ([facility]/HCC) 01/29/[address] [address] Rut Branham MD Uncomplicated opioid dependence ([facility]/HCC) 01/28/2025 Patient Outreach [facility] [address] [place] [address] Sofia Mitchell ANP 01/20/2025 Travel 01/20/2025 Patient Outreach [address] [address] Sofia Mitchell ANP Care Coordination ([facility] MATTHEW Mccain f/u call ) 01/20/2025 Patient Outreach [facility] [address] [place] [address] Sofia Mitchell ANP Care Coordination ([facility] f/u call) 01/17/2025 11:30 AM EDT Clinical Support [address] [address] Lela Witt RN Type 2 diabetes mellitus with hyperlipidemia (CMS/HCC) (CMS/HCC) 01/17/2025 Travel 01/16/[address] [address] Sofia Mitchell ANP Durable Medical Equipment 01/15/2025 Refill [facility] [address] [place] [phone] Sofia Mitchell ANP Venous stasis dermatitis of both lower extremities 01/13/[address] [address] Sofia Mitchell ANP vasular 01/13/[address] [address] Sofia Mitchell ANP Vascular 01/10/2025 Results Follow-Up [address] [address] Sofia Mitchell ANP US BLADDER 01/09/2025 10:30 AM EDT Office Visit [address] [address] Sofia Mitchell ANP Type 2 diabetes mellitus with hyperlipidemia (CMS/HCC) (Primary Dx); Morbid obesity (CMS/HCC); Diabetic nephropathy with proteinuria (CMS/HCC); Pulmonary hypertension (CMS/HCC); MICHAEL (generalized anxiety disorder); Dietary counseling; Exercise counseling 01/09/2025 Travel 01/08/[address] [address] Sofia Mitchell ANP chart prep 01/03/[address] [address] Sofia Mitchell ANP Gastroesophageal reflux disease, unspecified whether esophagitis present; Essential hypertension; Chronic low back pain without sciatica, unspecified back pain laterality 01/03/[address] [address] Rut Branham MD Uncomplicated opioid dependence ([facility]/HCC) 01/02/2025 Patient Outreach [address] [address] Sofia Mitchell ANP Care Management ([facility]- f/u call) 12/24/2024 11:15 AM EDT Office Visit [address] [address] Sofia Mitchell ANP Urinary retention (Primary Dx); Diabetic nephropathy with proteinuria ([facility]); Severe episode of recurrent major depressive disorder, without psychotic features ([facility]); Epigastric pain; Class 3 severe obesity with serious comorbidity and body mass index (BMI) of 60.0 to 69.9 in adult, unspecified obesity type; MICHAEL (generalized anxiety disorder); Pulmonary hypertension ([facility]); BETSY (obstructive sleep apnea); Spondylosis of lumbar region without myelopathy or radiculopathy 12/24/2024 Travel 12/23/[address] [address] Sofia Mitchell ANP chart prep 12/20/2024 Patient Outreach [address] [address] Sofia Mitchell ANP Care Coordination (Error) 12/20/2024 Patient Outreach [address] [address] Sofia Mitchell ANP Care Management ([facility]- f/u call) 12/20/[address] [address] Sofia Mitchell ANP Nurse Triage 12/18/2024 Patient Outreach [address] [address] Sofia Mitchell ANP Care Coordination ([facility] Matthew Mccain f/u call_lvm) 12/16/2024 Results Follow-Up [address] [address] Sofia Mitchell ANP Hepatic Function Panel, Hepatitis A Antibody, Total, Hepatitis B Core Antibody, Total, Additional followed-up results: 3 12/12/2024 3:00 PM EDT Office Visit [facility] [address] [place] [phone] Rut Branham MD Opioid type dependence, continuous (CMS/HCC) (Primary Dx) 12/12/2024 Travel 12/09/2024 Patient Outreach [address] [address] Sofia Mitchell ANP Care Coordination ([facility]/W Josh Kebede Rirafy f/u call ) 12/09/2024 Patient Outreach [facility] [address] [place] [address] Sofia Mitchell ANP Care Coordination ([facility] f/u call) 12/04/2024 Refill [facility] [address] [place] [phone] Rut Branham MD Uncomplicated opioid dependence (CMS/HCC) 11/28/[address] [address] Sofia Mitchell ANP Durable Medical Equipment 11/25/[address] [address] Lela Witt, APRIL [facility] GI 11/25/2024 Patient Outreach [facility] [address] [place] [address] Sofia Mitchell ANP Care Coordination ([facility] f/u call) 11/22/2024 11:30 AM EDT Office Visit [address] [address] Sofia Mitchell ANP Type 2 diabetes mellitus with hyperlipidemia (CMS/HCC) (Primary Dx); Morbid obesity (CMS/HCC); BETSY (obstructive sleep apnea); Polyneuropathy associated with underlying disease (CMS/HCC); Spondylosis of lumbar region without myelopathy or radiculopathy; Acute torn meniscus of knee, right, sequela 11/22/2024 Travel 11/21/[address] [address] Sofia Mitchell ANP CHART PREP 11/20/[address] [place] [address] Rut Branham MD Uncomplicated opioid dependence (CMS/HCC) 11/18/2024 Telephone [facility] [address] [place] [address] Lela Witt RN Medication Compliance 11/18/2024 Telephone [facility] [address] [place], [place] [phone] Francy Kebede MA vascular appointment from Last 3 Months Immunizations Immunization Administration [...] Description 02/17/2025 11:00 AM EDT Clinical Support [facility] [address] [place] [address] 03/07/2025 10:00 AM EDT Telemedicine [facility] [address] [place] [phone] Marline Olivera, Mirta [address] [place] [address] 03/27/2025 9:00 AM EDT Office Visit [facility] [address] [place], [place] [phone] Sofia Mitchell ANP [address] [place], [place] [phone] 04/03/2025 3:00 PM EST Office Visit [facility] [address] [place], [place] [phone] Rut Branham MD [address] [place], [place] [phone] Health Maintenance Due Date Last Done Comments [...] series) 11/14/2023 10/17/2023 COVID-19 Vaccine (3 - season) 2025 12/29/2020, 12/10/2020 Influenza Vaccine (#1) [...] AM EDT Narrative 01/10/2025 9:50 AM EDT [facility] Adult Primary Care [address] [place] [address] [place] [address] Ultrasound Report Signed Patient: Ross Navarrete MR#: [id number] : 1980 Acct:[id number] Age/Sex: 44 / M ADM Date: 01/09/25 Loc: HO.HMGCX Attending Dr: Sofia Mitchell NP Ordering Physician: SOFIA MITCHELL NP Date of Service: 01/09/25 Procedure(s): US bladder Accession Number(s): [id number] cc: SOFIA MITCHELL NP CLINICAL HISTORY: ?urinary [...] in OV> 01/10/25948 DD/ 7 TD/TT: 01/10/25947 Tetryl Nitrator Operator: Procedure Note Donotuseinterpreter, Image - 01/10/2025 [facility] [address] [place] [address] [place] [address] Ultrasound Report Signed Patient: Ross Navarrete LMR#: [id number] : 1980Acct:[id number] Age/Sex: 44 / MADM Date: 01/09/25 [facility]: Sofia Mitchell NP Ordering Physician: SOFIA MITCHELL NP Date of Service: 01/09/25 Procedure(s): US bladder Accession Number(s): [id number] cc: SOFIA MITCHELL NP CLINICAL HISTORY: ?urinary [...] in OV> 01/10/25948 DD/ 7 TD/TT: 01/10/25947 Tetryl Nitrator Operator: us Sofia Mitchell ANP IMG US PROCEDURES Final Result * (ABNORMAL) POCT HGB A1C (01/09/2025 10:56 AM EDT) Hemoglobin A1C 5.8(A) 4.0 - 5.7 % QC Media Lot # [id number] Lot# Expiration Date ,046,491 Blood 01/09/2025 10:5 6 AM EDT us Sofia Mitchell ANP POINT OF CARE TEST ENTER/EDIT OR DERABLES Final Result * POCT Glucose (01/09/2025 10:55 AM EDT) [facility] Glucose Blood, POC 102 60 - 200 mg/dL QC Media Lot # [id number] Lot# Expiration Date ,830,682 Blood Capillary blood specimen / Unknown 01/09/2025 10:55 AM EDT Result [facility] Sofia RAHMAN POINT OF CARE TEST ENTER/EDIT OR DERABLES Final Result * Hepatitis C Antibody with Reflex to HCV, RNA, Quantitative, Real-Time PCR (12/12/2024 1:48 PM EDT) [facility] Hepatitis C Antibody Nonreactive Nonreactive [facility] Comment:Antibodies to HCV no t detected; does not exclude early acuteHCV infection. Blood Venous blood specimen / Unknown 12/12/2024 1:48 PM EDT 12/12/2024 4:06 PM EDT Result [facility] Rut Branham MD LAB BLOOD ORDERABLES Final R esult Performing Organization Address City/[facility]/ZIP Co de Phone Number [facility] [address] [place] [phone] * Hepatitis A Antibody, Total (12/12/2024 1:48 PM EDT) [facility] Hepatitis A Antibody IgG Nonreactive Nonreactive [facility] Blood Venous blood specimen / Unknown 12/12/2024 1:48 PM EDT 12/12/2024 4:06 PM EDT Rut Branham MD LAB BLOOD ORDERABLES Final R esult Performing Organization Address City/[facility]/ZIP Co de Phone Number [facility] [address] [place] [phone] * Hepatitis B surface antigen, EIA (12/12/2024 1:48 PM EDT) [facility] Hepatitis B Surface Ag Negative Negative [facility] Blood Venous blood specimen / Unknown 12/12/2024 1:48 PM EDT 12/12/2024 4:06 PM EDT us Rut Branham MD LAB BLOOD ORDERABLES Final R esult Performing Organization Address [facility]/ZIP Co de Phone Number [facility] [address] [place] [phone] * Hepatitis B Core Antibody, Total (12/12/2024 1:48 PM EDT) [facility] Hepatitis B Core Antibody Nonreactive Nonreactive [facility] Blood Venous blood specimen / Unknown 12/12/2024 1:48 PM EDT 12/12/2024 4:06 PM EDT us Rut Branham MD LAB BLOOD ORDERABLES Final R esult Performing Organization Address [facility] Co de Phone Number [facility] [address] [place] [phone] * Hepatitis B Surface Antibody, Qualitative (12/12/2024 1:48 PM EDT) Pathologist [facility] ~Hepatitis B Surface Antibody NONREACTIVE Nonreactive [facility] Comment:Nonreactive: < 8.00 mIU/mL Blood Venous blood specimen / Unknown 12/12/2024 1:48 PM EDT 12/12/2024 4:06 PM EDT us Rut Branham MD LAB BLOOD ORDERABLES Final R esult Performing Organization Address [facility] Co de Phone Number [facility] [address] [place] [phone] * Hepatic Function Panel (12/12/2024 1:48 PM EDT) Pathologist [facility] Bilirubin, Total 0.8 0.0 - 1.0 mg/dL [facility] Bilirubin, Direct 0.3 0.0 - 0.5 mg/dL [facility] Aspartate Amino Transferase 31 5 - 37 U/L [facility] Alanine Aminotransferase 22 0 - 40 U/L [facility] Total Protein 7.8 6.5 - 8.0 g/dL [facility] Albumin Level 4.2 3.5 - 5.0 g/dL [facility] Alkaline Phosphatase 69 39 - 117 U/L [facility] Blood Venous blood specimen / Unknown 12/12/2024 1:48 PM EDT 12/12/2024 4:06 PM EDT us Rut Branham MD LAB BLOOD ORDERABLES Final R esult [facility] [address] [place] [phone] * (ABNORMAL) POCT RAMSES-14 Urine Drug [...] 11:23 AM EST) Triglycerides 132 <150 mg/dL [facility] Comment:Desirable Triglyceri de: less than 150 mg/dLBorderline High Triglyceride 150-199 mg/dLHigh Triglyceride: 200-499 mg/dLVery High Triglyceride: greater than or equal to 5OO mg/dL Cholesterol 165 <200 mg/dL [facility] Comment:Desirable Cholestero l: less than 200 mg/dLBorderline High Cholesterol: 200-239 mg/dLHigh Cholesterol: greater than 239 mg/dL LDL Cholesterol Calculated 91 <100 mg/dL [facility] Comment:Desirable LDL: less than 100 mg/dLNear Optimal/Above Optimal LDL: 110- 129 mg/dLBorderline High LDL: 130-159 mg/dLHigh LDL: 160-189 mg/dLVery High LDL: greater than or equal to 190 mg/dL HDL Cholesterol 48 >40 mg/dL [facility] Comment:Desirable HDL: great er than 40 mg/dL Note: This HDL assay may give artificially low results in patients with liver disease. 04/24/2024 11:2 3 AM EST 04/24/2024 11:23 AM EST us Generic External Data Provider LAB BLOOD ORDERAB LES Final Result [facility] [address] [place] [phone] * HIV-1/2 Antigen and Antibodies, Fourth Generation, with Reflexes (12/13/2023 11:48 AM EDT) HIV AB/AG Nonreactive Nonreactive [facility] Comment:HIV-1 p24 Ag and/or HIV-1/HIV-2 Ab not detected.A test result that is nonreactive does not exclude thepossibility of exposure to or infection with HIV-1 and/orHIV-2. Nonreactive results in this assay for individualswith prior exposure to HIV-1 and/or HIV-2 may be due toantigen and antibody levels that are below the limit ofdetection of this assay.The [employer] HIV Ag/Ab Combo assay result andsupplemental assay results should be interpreted inconjunction with the patient's clinical presentation,history and other laboratory results. If the results areinconsistent with clinical evidence, additional testing issuggested to confirm the result. Blood Venous blood specimen / Unknown 12/13/2023 11:48 AM EDT 12/13/2023 12:51 PM EDT Sofia Mitchell [facility] LAB BLOOD ORDERABLES Final Resul t [facility] [address] [place] [phone] [phone] from Last 3 Months or Most Recently Relevant to Health Maintenance Insurance C[facility] MEDICAID STAND ADULT Care Teams Planer Chain Offbearer Relationship Specialty Start Date End Date Sofia Mitchell ANP [address] [place] [address] PCP - General Family Medicine 01/18/22 Real Gomez MD [address] [place] [address] [address] [place] [address] Cardiology 10/01/24
--- OUTSIDE RECORDS SUMMARY | 2025-02-13 15:17 | XMS_ITS | Clinical Summary ---
Author Organization [facility] Address [address] [place] [address] Phone Care Team Providers Care Register Repairer Name Role Phone Naheed Zaman JOSIAH Primary Care Provider [phone] Allergies Active Allergy Reactions Criticality Noted Date Comments Shellfish Containing Products Cough 2016 Difficulty breathing Medications JENNIFER WOOD, PEN 40 mg/0.4 mL pen kit citrate free INJECT 0.4 ML (40 MG) SUBCUTANEOUSLY EVERY WEEK 01/10/20 25 Active ammonium lactate (AMLACTIN) 12 % cream Apply topically. 04/24/20 24 025 Active ammonium lactate (LAC-HYDRIN) 12 % lotion Apply topically. 06/03/19 25 026 Active ARIPiprazole (ABILIFY) 10 MG tablet Take 15 mg by mouth. 12/25/19 25 Active esomeprazole (NEXIUM) 40 MG capsule TAKE 1 CAPSULE BY MOUTH EVERY MORNING BEFORE BREAKFAST. DO NOT BREAK, CRUSH, DISSOLVE OR CHEW 09/24/19 25 Active FLUoxetine (PROZAC) 20 MG capsule TAKE 3 CAPSULES BY MOUTH EVERY DAY IN THE MORNING 01/24/20 25 Active LANTUS SOLOSTAR U-100 INSULIN 100 unit/mL (3 mL) InPn injection pen INJECT 40 UNITS SUBCUTANEOUSLY AT BEDTIME 01/10/20 25 Active hydrOXYzine (VISTARIL) 25 MG capsule TAKE 1 CAPSULE BY MOUTH TWICE DAILY IN THE MORNING AND AT BEDTIME NEEDED ANXIETY 12/06/19 25 Active magnesium oxide (MAG-OX) 400 mg (241.3 mg elemental) tablet TAKE 1 TABLET BY MOUTH AT BEDTIME FOR LEG CRAMPS, STOP FOR LOOSE STOOL 01/30/20 Active meloxicam (MOBIC) 15 MG tablet Take 1 tablet by mouth once as needed for pain (specific location in comments). 01/07/20 25 Active olmesartan-hydro CHLOROthiazide (BENICAR HCT) 40-12.5 mg per tablet Take 1 tablet by mouth. 10/09/19 25 026 Active OZEMPIC 0.25 mg or 0.5 mg (2 mg/3 mL) subcutaneous injection pen INJECT 0.5 MG SUBCUTANEOUSLY EVERY 7 DAYS IN THE ABDOMEN, THIGHS, OR UPPER ARM, ROTATE INJECTION SITES. 01/29/20 25 Active tirzepatide (MOUNJARO) 2.5 mg/0.5 mL PnIj subcutaneous penIndications:T ype 2 diabetes mellitus with hyperglycemia, with long-term current use of insulin Inject 0.5 mL (2.5 mg total) under the skin every 7 days. 2 mL 11 02/06/20 25 026 Active phentermine 15 MG capsule Take 1 capsule (15 mg total) by mouth daily before breakfast. 90 capsule 02/06/20 25 025 Active Active Problems Problem Noted Date Diagnosed Date Morbid obesity 02/05/2025 Type 2 diabetes mellitus wit h hyperglycemia, with long-term current use of insulin 02/05/2025 Essential hypertension 02/05/2025 BETSY (obstructive sleep apnea) 02/05/2025 Encounters Date Type Department Care Team Description 02/05/2025 3:00 PM EDT Office Visit [facility] Medical Weight Management [address] [address] Sri Andrade MD Morbid obesity (Primary Dx); Type 2 diabetes mellitus with hyperglycemia, with long-term current use of insulin; Essential hypertension; Weight loss advised; BETSY (obstructive sleep apnea) from Last 3 Months Family History Medical History Relation Comments No Known Problems Brother No Known Problems Father No Known Problems Mother No Known Problems Sister Relation Status Comments Brother Father Mother Sister Social History Tobacco Use Types Packs/Day Years Used Date Smoking Tobacco: Never Smokeless Tobacco: Never Tobacco Cessation:Counseling Given: Not Answered Education Answer Date Recorded Are you interested [...] on file Sexual Orientation Not on file Last Filed Vital Signs Vital Sign Reading Time Taken Comments Blood Pressure 132/60 02/05/2025 2:09 PM EDT Pulse 86 02/05/2025 2:09 PM EDT Temperature - - Respiratory Rate - - Oxygen Saturation 98% 02/05/2025 2:09 PM EDT Inhaled Oxygen Concentration - - Weight 178.5 kg (393 lb 9.6 oz) 02/05/2025 2:09 PM EDT Height 167.6 cm (5' 6 ) 02/05/2025 2:09 PM EDT Body Mass Index 63.53 02/05/2025 2:09 PM EDT Plan of Treatment Upcoming Encounters Date Type Department Care Team (Late st Contact Info) Description 02/25/2025 11:00 AM EDT Office Visit [facility] General & GI Surgery [address] [address] Frankie Cobb MD, [address] [address] [email or web address] 06/11/2025 1:30 PM EST Telemedicine [facility] Medical Weight Management [address] [place] [address] Felicity Puentes CNP 221 [place] [address] 10/30/2025 10:40 AM EDT Office Visit [facility] Medical Weight Management [address] [place] [address] Sri Andrade MD [address] [place] [address] [email or web address] Maintenance Due Date Last Done Comments CREATININE LEVEL 1981 POTASSIUM LEVEL 1981 HEPATITIS C SCREENING 11/14/1999 HIV ONE-TIME SCREENING (18-6 5 YEARS) 11/14/1999 PNEUMOCOCCAL VACCINES (0-49 years) (1 of 2 - PCV) 2000 COVID-19 VACCINE (3 - Pfizer risk series) 01/26/2021 12/29/2020, 12/10/2020 INFLUENZA VACCINE (#1) 2024 2, 01/27/2011 DIABETIC EYE EXAM 02/05/2025 LIPID PANEL 04/24/2025 04/24/2024, 02/27/2020 HEMOGLOBIN A1C 07/12/2025 01/09/2025, 02/27/2020 BLOOD PRESSURE 08/05/2025 02/05/2025 DEPRESSION SCREENING 02/05/2026 02/05/2025 Adult Td,Tdap Booster 10/16/2033 10/17/2023 , 03/15/2011 SMOKING STATUS SCREENING (On ce After 26 Yrs) Completed 02/05/2025 HEPATITIS A VACCINES Aged Out No long [...] topic Medical Devices Not on file Insurance [facility] C3 ACO [facility] C[facility] ACO [facility] C[facility] ACO Care Teams Register Repairer Relationship Specialty Start Date End Date Naheed Zaman ANP [address] [place] [address] PCP - General Nurse Practitioner 01/02/25 Additional Source Comments The information contained in this document represents components of the legal health record. It is not the complete legal health record.[facility]
== END 2025-02-13 14:03 | disposition home or self-care (01) ==
LOC: HO.HCS 13:16
PROVIDERS: PCP Nurse Practitioner Primary Care
DX: R07.9 Chest pain, unspecified (principal); I10 Essential (primary) hypertension; E11.9 Type 2 diabetes mellitus without complications; G47.30 Sleep apnea, unspecified; E66.01 Morbid (severe) obesity due to excess calories; Z01.810 Encounter for preprocedural cardiovascular examination
CPT/HCPCS: 93010; 99213

== ENCOUNTER → 2025-02-13 13:15 | Outpatient (BNVA) | payer MEDICAID, SELFPAY | PROVIDERS: PCP Nurse Practitioner Primary Care | DX: Z01.810 Encounter for preprocedural cardiovascular examination (principal); R07.9 Chest pain, unspecified; R06.02 Shortness of breath; I10 Essential (primary) hypertension; E11.9 Type 2 diabetes mellitus without complications; G47.30 Sleep apnea, unspecified; E66.01 Morbid (severe) obesity due to excess calories; Z68.44 Body mass index [BMI] 60.0-69.9, adult | CPT/HCPCS: 93005; 99212 ==

== ENCOUNTER 2025-02-18 06:18 | Outpatient (REF) | payer MEDICAID, SELFPAY ==
--- NOTE | ~2025-02-18 | FL_ITS ---
EXAMINATION: FL GUIDANCE ONLY HISTORY: M25.312 - Other instability, left shoulder COMPARISON: None available. TECHNIQUE: Fluoroscopy time: 21 seconds. Cumulative Dose: 3.3 mGy. DAP: 106.51 mGym2 Images: 1. FINDINGS: A single fluoroscopic spot film of the left shoulder demonstrates a needle in place. FL/FL guidance in treatment room IMPRESSION: Fluoroscopy during procedure. Please see procedure report for additional information. Electronically signed by: Gurinder Valdez MD 02/20/2025 07:16 AM EDT
--- OUTSIDE RECORDS SUMMARY | 2025-02-18 06:20 | XMS_ITS | Clinical Summary ---
Author Organization [facility] Address [address] [place] [address] Care Team Providers Care Glove Turner Name Role Phone Unavailable Primary Care Provider [...] recurrent major depressive disorder, with psychotic features ([facility]) 06/10/2024 Assessment & Plan (06/18/2024 11:18 AM EST): Patient refused to be seen, [facility] team lead was notified. Assessment & Plan (06/10/2024 5:36 [...] connected on video call until arrival of [place] Police with recommendation to section patient to [...] Imm-Pneumococcal (1 of 2 - PCV) 2000 Imm-HPV (1 - 3-dose SCDM series) 2008 Imm-Hepatitis B (2 of 3 - 19 + 3-dose series) 11/14/2023 10/17/2023 Alcohol and Drug Screen 05/29/2024 Dio-CEUUE-38 (2024- season) 2025 021, 12/10/2020 Imm-Influenza (#1) 2025 02/27/2012, 01/27/2011 Diabetes Screening 10/08/2025 10/08/2024, 0 09/12/2024, 05/16/2024, Additional history exists Lipid Screening 04/24/2029 04/24/2024, 05/29, 02/27/2020 Imm-DTaP/Tdap/Td (3 - Td or Tdap) 10/16/2033 024, 03/15/2011 Hepatitis C Screening Completed 10/11/2023 HIV Screening Completed 12/13/2023, 11/26, 12/16/2021 Insurance [facility] MEDICAID
--- OUTSIDE RECORDS SUMMARY | 2025-02-18 06:20 | XMS_ITS | Encounter Summary ---
Author Organization [employer] [facility] Address [address] [facility] 7t [place] [address] Care Team Providers Care Environmental Services Attendant Name Role Phone Naheed Zaman Primary Care Provider [phone] Real Gomez MD Unavailable Chico Kebede RN Unavailable [phone] Encounter Details Date Type Department Care Team (Latest Contact Info) Description 12/29/2021 Abstract [facility] CONVERSIONS Dental, Provider, DDS Social History [...] Care Team (Late st Contact Info) Description 03/07/2025 10:00 AM EDT Telemedicine [facility] MEDICINE [address] [place] [address] Marline Olivera, PharmD [address] [place] [address] 03/27/2025 9:00 AM EDT Office Visit [address] [address] Naheed Zaman ANP [address] [place] [address] 04/03/2025 3:00 PM EST Office Visit [address] [place] [address] Rut Branham MD 230 [place] [address] documented as of this encounter Visit Diagnoses Not on filedocumented in this encounter Care Teams Environmental Services Attendant Relationship Specialty Start Date End Date Naheed Zaman ANP 230 [place] [address] PCP - General Family Medicine 01/18/22 Real Gomez MD [address] 3rd [place] [address] Cardiology 10/01/24 Chico Kebede, APRIL [address] [place] [address] Registered Nurse Family Medicine 02/03/25 02/03/25 documented as of this encounter
--- OUTSIDE RECORDS SUMMARY | 2025-02-18 06:20 | XMS_ITS | Encounter Summary ---
Author Organization [email or web address] [facility] Address [address] [facility] 7t [place] [address] Care Team Providers Care Field Assistant Name Role Phone Naheed Zaman Primary Care Provider [phone] Real Gomez MD Unavailable Chico Kebede RN Unavailable [phone] Reason for Visit * Reason Comments Med Refill Encounter Details Date Type Department Care Team (Late Contact Info) Description 02/02/2023 Refill [facility] MEDICINE [address] [place] [address] Rut Branham MD 230 [place] [address] Uncomplicated opioid dependence (CMS/HCC) Social History Tobacco [...] Department Care Team (Late Contact Info) Description 03/07/2025 10:00 AM EDT Telemedicine [facility] MEDICINE 230 [place] [address] Marline Olivera, Mirta 230 [place] [address] 03/27/2025 9:00 AM EDT Office Visit [address] [address] Naheed Zaman ANP 230 [place] [address] 04/03/2025 3:00 PM EST Office Visit [address] [address] Rut Branham MD 230 [place] [address] documented as of this encounter Visit Diagnoses Diagnosis Uncomplicated opioid dependence (CMS/HCC) documented in this encounter Additional Health Concerns Assessment Noted Time PHQ-9 Depression Total Score: 6 11/19/19 23 3:29 PM EDT documented as of this encounter Care Teams Field Assistant Relationship Specialty Start Date End Date Naheed Zaman ANP 230 [place] [address] PCP - General Family Medicine 01/18/22 Real Gomez MD [address] [place] [address] 3rd [place] [address] Cardiology 10/01/24 Chico Kebede RN [address] [place] [address] Registered Nurse Family Medicine 02/03/25 02/03/25 documented as of this encounter
--- OUTSIDE RECORDS SUMMARY | 2025-02-18 06:20 | XMS_ITS | Encounter Summary ---
Author Organization [employer] Address [address] 7t [place] [address] Care Team Providers Care Skylights Assembler Name Role Phone Naheed Zaman Primary Care Provider [phone] Real Gomez MD Unavailable Chico Kebede RN Unavailable Reason for Visit * Reason Comments Med Refill Encounter Details Date Type Department Care Team (Late st Contact Info) Description 09/14/2023 Refill [facility] MEDICINE 230 [place] [address] Dayna Cardenas MD 230 [place] [address] Uncomplicated opioid dependence (CMS/HCC) Social History Tobacco [...] Info) Description 03/07/2025 10:00 AM EDT Telemedicine [facility] MEDICINE [address] [place] [address] Marline Olivera PharmD [address] [place] [address] 03/27/2025 9:00 AM EDT Office Visit [facility] MEDICINE [address] [place] [address] Naheed Zaman ANP [address] [place] [address] 04/03/2025 3:00 PM EST Office Visit [address] [address] Rut Branham MD [address] [place] [address] documented as of this encounter Visit Diagnoses Diagnosis Uncomplicated opioid dependence (CMS/HCC) documented in this encounter Additional Health Concerns Assessment Noted Time PHQ-9 Depression Total Score: 6 11/18/ 23 3:29 PM EDT documented as of this encounter Care Teams Skylights Assembler Relationship Specialty Start Date End Date Naheed Zaman ANP [address] [place] [address] PCP - General Family Medicine 01/18/22 Real Gomez MD [address] 3rd [place] [address] Cardiology 10/01/24 Chico Kebede, APRIL 505 [place] [address] Registered Nurse Family Medicine 02/03/25 02/03/25 documented as of this encounter
--- OUTSIDE RECORDS SUMMARY | 2025-02-18 06:20 | XMS_ITS | Encounter Summary ---
Author Organization [employer] Address [address] 7t [place] [address] Care Team Providers Care Bumboater Name Role Phone Naheed Zaman Primary Care Provider [phone] Real Gomez MD Unavailable Chico Kebede RN Unavailable [phone] Reason for Visit * Reason Onset Date Comments Med Refill 11/20/2024 Encounter Details Date Type Department Care Team (Late st Contact Info) Description 11/20/2024 Refill [facility] MEDICINE 230 [place] [address] Rut Branham MD 230 [place] [address] Uncomplicated opioid dependence (CMS/HCC) Social History Tobacco [...] Info) Description 03/07/2025 10:00 AM EDT Telemedicine [facility] MEDICINE [address] [place] [address] Marline Olivera, PharmD [address] [place] [address] 03/27/2025 9:00 AM EDT Office Visit [facility] MEDICINE [address] [place] [address] Naheed Zaman ANP [address] [place] [address] 04/03/2025 3:00 PM EST Office Visit [address] [address] Rut Branham MD [address] [place] [address] documented as of this encounter Visit Diagnoses Diagnosis Uncomplicated opioid dependence (CMS/HCC) documented in this encounter Additional Health Concerns Assessment Noted Time PHQ-9 Depression Total Score: 7 10/05/19 25 2:06 PM EDT documented as of this encounter Care Teams Bumboater Relationship Specialty Start Date End Date Naheed Zaman ANP 230 [place] [address] PCP - General Family Medicine 01/18/22 Real Gomez MD [address] [place] [address] 3rd [place] [address] Cardiology 10/01/24 Chico Kebede, APRIL [address] [place] [address] Registered Nurse Family Medicine 02/03/25 02/03/25 documented as of this encounter
--- OUTSIDE RECORDS SUMMARY | 2025-02-18 06:20 | XMS_ITS | Clinical Summary ---
Author Organization [facility] Address [address] [place] [address] Phone Care Team Providers Care Nuclear Weapons Custodian Name Role Phone Naheed Zaman NP Primary Care Provider [phone] Allergies Active Allergy Reactions Criticality Noted Date [...] obesity with BMI of 6 0.0-69.9, adult ([facility] V24, [facility] V28) 04/17/2024 Acquired pes planus 05/11/2017 Pure hypercholesterolemia 05/10/2017 Pulmonary hypertension ([facility] V24, [facility] V28 ) 05/10/2017 Overview (04/17/2024): Mild, ECHO 10/21/10 C, EF 65-70% HTN (hypertension) 05/10/2017 H. pylori infection 05/10/2017 Overview (04/17/2024): + serology 08/07/2009, uncertain if treated Gout 05/10/2017 Elevated liver enzymes 05/10/2017 Overview (04/17/2024): fatty liver DJD (degenerative joint disease) 05/10/2017 Overview (04/17/2024): Mild L knee, Mod L shoulder arthropathy Asthma 05/10/2017 Proteinuria 04/30/2017 DM (diabetes mellitus), type 2 with renal complications ([facility] V24, [facility] V28) 04/30/2017 Spondylosis of lumbar region without myelopathy or radiculopathy 04/26/2017 Overview (04/17/2024): Saw [facility] Rheumatology BETSY (obstructive sleep apnea) 04/26/2017 Overview (04/17/2024): Polysomnography 08/05/2009, [facility] :On cpap 14 cm H2O 10/23/2017 Home Sleep Study insufficient data. 08/2018 - Pulm ordered split night study. Diabetes mellitus type 2 wit h neurological manifestations ([facility] V24, [facility] V28) 04/26/2017 CTS (carpal tunnel syndrome) [...] (diabetes mellitus), type 2 with renal complications ([facility] V24, [facility] V28) 04/30/2017 DX:DM (diabetes mellitus), t ype 2 with renal complications (HCC) Proteinuria 04/30/2017 DX:Proteinuria Diabetes mellitus type 2 wit h neurological manifestations ([facility] V24, [facility] V28) 04/26/2017 DX:Diabetes mellitus type 2 [...] obesity with BMI of 6 0.0-69.9, adult ([facility] V24, [facility] V28) 04/26/2017 DX:Morbid obesity wit h BMI of 60.0-69.9, adult ([facility]) BETSY (obstructive sleep apnea) 04/26/2017 DX :BETSY (obstructive sleep apnea); COMMENT: Polysomnography 08/05/2009, [facility] :On cpap 14 cm H2O Pulmonary hypertension ([facility] V24, [facility] V28) 05/10/2017 DX:Pulmonary hypertension (H CC); [...] Td or Tdap) 10/16/2033 10/17/2023, 03/15/2011 RSV Immunization Adult Patients (1 - 1-dose 75+ series) 2056 Hepatitis C Screening Completed 10/11/2023 , 06/22/2017 [...] * Urine Albumin Creatinine Ratio (02/27/2020) Pathologist [facility] Urine Albumin Creatinine Ratio Abstracted Result [facility] Provider HEALTH MAINTENANCE Final Result * Annual BMP Blood Test (02/27/2020) Pathologist [facility] Annual BMP Blood Test Abstracted Result [facility] Provider HEALTH MAINTENANCE Final Result * (ABNORMAL) Hemoglobin A1c (02/27/2020) Pathologist [facility] Hemoglobin A1C 6.9(A) <=6.5 % Blood Venous blood specimen / Unknown Result [facility] Provider LAB BLOOD ORDERABLES Brunilda l Result * Lipid panel (02/27/2020) Pathologist [facility] LDL/HDL Ratio 3 0 - 4 Triglycerides [...] Maintenance Insurance MEDICAID - [place] Care Teams Nuclear Weapons Custodian Relationship Specialty Start Date End Date Naheed Zaman NP [address] [address] PCP - General 02/21/24
--- OUTSIDE RECORDS SUMMARY | 2025-02-18 06:20 | XMS_ITS | Encounter Summary ---
Author Organization [employer] Address [address] [facility] [address] 7t [place] [address] Care Team Providers Care Flotation Operator Name Role Phone Naheed Zaman Primary Care Provider [phone] Rael Gomez MD Unavailable Chico Kebede RN Unavailable [phone] Reason for Visit * Reason Comments Med Refill Encounter Details Date Type Department Care Team (Late st Contact Info) Description 09/26/2024 Refill [facility] 230 [place] [address] Desirae Cowan MD 230 [place], [place] [phone] Social History Tobacco Use Types Packs/Day Years [...] Info) Description 03/07/2025 10:00 AM EDT Telemedicine [facility] MEDICINE [address] [place] [address] Marline Olivera, PharmD [address] [place] [address] 03/27/2025 9:00 AM EDT Office Visit [facility] MEDICINE [address] [place] [address] Naheed Zaman ANP [address] [place] [address] 04/03/2025 3:00 PM EST Office Visit [facility] MEDICINE [address] [place] [address] Rut Branham MD [address] [place] [address] documented as of this encounter Visit Diagnoses Not on filedocumented in this encounter Additional Health Concerns Assessment Noted Time PHQ-9 Depression Total Score: 25 024 8:12 AM EDT documented as of this encounter Care Teams Flotation Operator Relationship Specialty Start Date End Date Naheed Zaman ANP 230 [place] [address] PCP - General Family Medicine 01/18/22 Real Gomez MD [address] 3rd [place] [address] Cardiology 10/01/24 Chico Kebede, APRIL 505 [place] [address] Registered Nurse Family Medicine 02/03/25 02/03/25 documented as of this encounter
--- OUTSIDE RECORDS SUMMARY | 2025-02-18 06:20 | XMS_ITS | Encounter Summary ---
Author Organization [employer] Address [address] 7t [place] [address] Care Team Providers Care Desktop Support Manager Name Role Phone Naheed Zaman Primary Care Provider [phone] Real Gomez MD Unavailable Chico Kebede RN Unavailable [phone] Reason for Visit * Reason Comments Med Refill Encounter Details Date Type Department Care Team (Late st Contact Info) Description 08/18/2023 Refill [facility] MEDICINE 230 [place] [address] Naheed Zaman ANP 230 [place] [address] Chronic low back pain without sciatica, unspecified [...] Info) Description 03/07/2025 10:00 AM EDT Telemedicine [address] [address] Marline Olivera PharmD [address] [place] [address] 03/27/2025 9:00 AM EDT Office Visit [facility] MEDICINE [address] [place] [address] Naheed Zaman ANP [address] [place] [address] 04/03/2025 3:00 PM EST Office Visit [address] [address] Rut Branham MD [address] [place] [address] documented as of this encounter Visit Diagnoses Diagnosis Chronic low back pain without sciatica, unspecified back pain laterality documented in this encounter Additional Health Concerns Assessment Noted Time PHQ-9 Depression Total Score: 6 11/19/19 23 3:29 PM EDT documented as of this encounter Care Teams Desktop Support Manager Relationship Specialty Start Date End Date Naheed Zaman ANP [address] [place] [address] PCP - General Family Medicine 01/18/22 Real Gomez MD [address] [place] [address] Drive 3rd [place] [address] Cardiology 10/01/24 Chico Kebede, APRIL 505 [place] [address] Registered Nurse Family Medicine 02/03/25 02/03/25 documented as of this encounter
--- OUTSIDE RECORDS SUMMARY | 2025-02-18 06:21 | XMS_ITS | Clinical Summary ---
Author Organization [facility] Address [address] [place] [address] Phone Care Team Providers Care Sugar Reprocess Operator Head Name Role Phone Naheed Zaman JOSIAH Primary Care Provider [phone] Allergies Active Allergy Reactions Criticality Noted Date [...] Description 02/05/2025 3:00 PM EDT Office Visit [facility] Medical Weight Management [address] [address] Sri Andrade MD Morbid obesity (Primary Dx); [...] Description 02/25/2025 11:00 AM EDT Office Visit [facility] General & GI Surgery [address] [address] Frankie Cobb MD, [address] [address] [email or web address] 06/11/2025 1:30 PM EST Telemedicine [facility] Medical Weight Management [address] [place] [address] Felicity Puentes CNP [address] [place] [address] 10/30/2025 10:40 AM EDT Office Visit [facility] Medical Weight Management [address] [place] [address] Sri Andrade MD [address] [place] [address] [email or web address] Maintenance Due Date Last [...] topic Medical Devices Not on file Insurance [facility] C3 ACO [facility] C3 ACO [facility] ACO Care Teams Sugar Reprocess Operator Head Relationship Specialty Start Date End Date Naheed Zaman ANP [address] [place] [address] PCP - General Nurse Practitioner 01/02/25 Additional Source Comments The information contained in this document represents components of the legal health record. It is not the complete legal health record.[facility]
--- OUTSIDE RECORDS SUMMARY | 2025-02-18 06:21 | XMS_ITS | Clinical Summary ---
Author Organization [employer] Address [address] [facility] 7[address] [place] [address] Care Team Providers Care Senior Informatica Developer Name Role Phone Sofia Mitchell Primary Care Provider [phone] Real Gomez MD Unavailable Allergies Active Allergy Reactions Criticality Noted Date Comments Shellfish Allergy 05/02/2022 Medications * This document contains information received from the source organization and may not represent a complete record from that organization. Alcohol Swabs (Alcohol Prep) 70 % pads USE FOUR TIMES DAILY WITH INSULIN Active Blood Glucose Monitoring Suppl (FreeStyle [place] Lite) w/Device kit TEST BLOOD SUGAR FOUR TIMES DAILY Active FREESTYLE LITE test strip TEST BLOOD SUGAR FOUR TIMES DAILY Active glucose blood (FREESTYLE LITE) test strip check fingerstick 4 times a day Active Sure Comfort Pen [place] 31G X 5 MM misc USE FOUR [...] Active beta carotene (vitamin A) 3 MG (87813 UT) capsule TAKE 2 CAPSULES BY MOUTH EVERY DAY FOR 2 WEEKS 022 Active EPINEPHrine (Epipen) 0.3 MG/0.3ML injection syringeIndicatio ns:Allergy to shellfish INJECT INTRAMUSCULARLY DIRECTED ON PACKAGE AND GO TO EMERGENCY ROOM 2 each 023 Active Blood Pressure Monitor kitIndications:P ulmonary hypertension ([facility]/HCC) 1 kit in the morning. 1 kit 024 Active atorvastatin (Lipitor) 10 MG tabletIndication s:Type 2 diabetes mellitus with hyperlipidemia (CMS/HCC) ([facility]) Take 1 tablet (10 [...] use. 473 mL 024 Active Continuous Glucose Quail Farmer (FreeStyle Casey 2 [place]) deviceIndication s:Diabetes mellitus with albuminuria (CMS/HCC) ([facility]) Scan sensor every 8 hours 1 each 024 Active Continuous Glucose Sensor (FreeStyle Casey 2 Sensor) miscIndications: Diabetes mellitus with albuminuria (CMS/HCC) ([facility]) Apply 1 sensor every 14 days 2 each 024 Active glucose (BD Glucose) 5 g chewable tabletIndication s:Type 2 diabetes mellitus with hyperlipidemia (CMS/HCC) ([facility]) Chew 3 tablets (15 [...] day. 84 Film 1 025 2024 Active FLUoxetine (PROzac) 20 [...] Health Integration Plan Internal Follow up with [facility] Patient Self Plan Patient to reach [...] Health Integration Plan Internal Follow up with [facility] Patient Self Plan Patient to reach [...] Health Integration Plan Internal Follow up with [facility] Patient Self Plan Patient to utilize skills provided in intervention , Patient to reach out to [facility] team as needed, and Patient to reach out to HC as needed Assessment & Plan (11/17/2023 3:54 [...] Health Integration Plan Internal Follow up with [facility] External OP psychiatry Referral Patient Self Plan Patient to reach out to [facility] team as needed, Comply with medication , Patient to engage in OP therapy , and Patient to reach out to [facility] as needed Assessment & Plan (09/20/2023 10:06 AM EDT): New/Additional Services needed Off-site services for Behavioral Health Integration Plan External OP therapy referral Patient Self Plan Patient to utilize skills provided in intervention , Patient to reach out to [facility] team as needed, Comply with [...] explained that she tried referring pt to [facility] and other centers and pt;s can not be evaluated for plastic surgery w current BMI -I request referral to be sent to [facility] but was explained is the [...] Overview (07/28/2022): Mild, ECHO 10/21/10 [facility] 65-70% H. pylori infection 05/10/2017 Overview (07/28/2022): + serology 08/07/2009, uncertain if treated Gout 05/10/2017 Elevated liver enzymes 05/10/2017 Overview (07/28/2022): fatty liver Arthritis 05/10/2017 Overview (07/28/2022): Mild L knee, Mod L shoulder arthropathy Asthma 05/10/2017 Spondylosis of lumbar region without myelopathy or radiculopathy 04/26/2017 Overview (11/22/2024): Saw [facility] [place]ology, now on humira which has been [...] sleep apnea) 05/18/2015 Overview (11/22/2024): Polysomnography 08/05/2009, [facility] cpap 14 cm H2O 10/23/2017 Home Sleep Study insufficient data. 08/2018 - Pulm ordered split night study. Titration was done 03/2023 and titrated to start cpap at [id number]. HST c/w AHI 124/hr and oxygen fritz to 70%, he was titrated Follows w/ [facility] Neurology and Sleep, Leyla Alvarado 05/18/2015 Encounters * This document contains information received from the source organization and may not represent a complete record from that organization. Date Type Department Care Team Description 02/06/2025 2:00 PM EDT Clinical Support [facility] MEDIC[facility] [address] [place] [phone] Tristen Chen RN Uncomplicated opioid dependence ([facility]) 02/06/2025 Travel 02/03/2025 Patient Outreach [address] [address] Sofia Mitchell ANP Care Coordination ([facility]/Matthew Escobar f/u, program graduation) 02/03/2025 Patient Outreach [address] [address] Sofia Mitchell ANP Care Management ([facility]- f/u call) 01/30/2025 Refill [facility] MEDICINE [address] [place] [phone] Rut Branham MD Uncomplicated opioid dependence ([facility]) 01/29/2025 Refill [facility] MED[facility] [address] [place] [phone] Rut Branham MD Uncomplicated opioid dependence ([facility]) 01/28/[address] [facility] [address] [place] [address] Sofia Mitchell ANP 01/20/2025 Travel 01/20/2025 Patient Outreach [facility] MED[facility] [address] [place] [address] Sofia Mitchell ANP Care Coordination ([facility]/MATTHEW Escobar f/u call ) 01/20/[address] [facility] [address] [place] [address] Sofia Mitchell ANP Care Coordination ([facility] f/u call) 01/17/2025 11:30 AM EDT Clinical Support [facility]ICINE [address] [place] [phone] Lela Witt RN Type 2 diabetes mellitus with hyperlipidemia (CMS/HCC) ([facility]/HCC) 01/17/2025 Travel 01/16/2025 Telephone [facility] MEDICINE [address] [place] [address] Sofia Mitchell ANP Durable Medical Equipment 01/15/2025 Refill [facility] WALK-IN CENTER [address] [place] [address] Sofia Mitchell ANP Venous stasis dermatitis of both lower extremities 01/13/2025 Telephone [facility] MEDICINE [address] [place] [address] Sofia Mitchell ANP vasular 01/13/[address] [address] Sofia Mitchell ANP Vascular 01/10/2025 Results Follow-Up [address] [address] Sofia Mitchell ANP US BLADDER 01/09/2025 10:30 AM EDT Office Visit [address] [address] Sofia Mitchell ANP Type 2 diabetes mellitus with hyperlipidemia (CMS/HCC) (Primary Dx); Morbid obesity (CMS/HCC); Diabetic nephropathy with proteinuria (CMS/[facility]); Pulmonary hypertension ([facility]); MICHAEL (generalized anxiety disorder); Dietary counseling; Exercise counseling 01/09/2025 Travel 01/08/[address] [address] Sofia Mitchell ANP chart prep 01/03/2025 Refill [facility] MEDICINE [address] [place] [address] Sofia Mitchell ANP Gastroesophageal reflux disease, unspecified whether esophagitis present; Essential hypertension; Chronic low back pain without sciatica, unspecified back pain laterality 01/03/2025 Refill [facility] [address] [place] [phone] Rut Branham MD Uncomplicated opioid dependence (CMS/HCC) 01/02/2025 Patient Outreach [address] [address] Sofia Mitchell ANP Care Management (C3CM- f/u call) 12/24/2024 11:15 AM EDT Office Visit [address] [address] Sofia Mitchell ANP Urinary retention (Primary Dx); [...] myelopathy or radiculopathy 12/24/2024 Travel 12/23/[address] [address] Sofia Mitchell ANP chart prep 12/20/2024 Patient Outreach [address] [address] Sofia Mitchell ANP Care Coordination (Error) 12/20/2024 Patient Outreach [address] [address] Sofia Mitchell ANP Care Management (C3CM- f/u call) 12/20/[address] [address] Sofia Mitchell ANP Nurse Triage 12/18/2024 Patient Outreach [address] [address] Sofia Mitchell ANP Care Coordination ([facility]/CHW Matthew Mccain f/u call_lv) 12/16/2024 Results Follow-Up [address] [address] Sofia Mitchell ANP Hepatic Function Panel, Hepatitis A Antibody, Total, Hepatitis B Core Antibody, Total, Additional followed-up results: 3 12/12/2024 3:00 PM EDT Office Visit [address] [address] Rut Branham MD Opioid type dependence, continuous ([facility]/HCC) (Primary Dx) 12/12/2024 Travel 12/09/2024 Patient Outreach [facility] MEDICINE [address] [place] [address] Sofia Mitchell ANP Care Coordination (C3/CHW Reneeantolin Matthew eKbede f/u call ) 12/09/[address] [facility] [address] [place] [address] Sofia Mitchell ANP Care Coordination (C3CM f/u call) 12/04/2024 Refill [facility] MEDICINE [address] [place] [phone] Rut Branham MD Uncomplicated opioid dependence ([facility]/HCC) 11/28/[address] [address] Sofia Mitchell ANP Durable Medical Equipment 11/25/[address] [address] Lela Witt RN [facility] 11/25/[address] [facility] [address] [place] [address] Sofia Mitchell ANP Care Coordination (C3CM f/u call) 11/22/2024 11:30 AM EDT Office Visit [address] [address] Sofia Mitchell ANP Type 2 diabetes mellitus with hyperlipidemia ([facility]/HCC) (Primary Dx); Morbid obesity ([facility]/HCC); BETSY (obstructive sleep apnea); Polyneuropathy associated with underlying disease ([facility]/HCC); Spondylosis of lumbar region without myelopathy or radiculopathy; Acute torn meniscus of knee, right, sequela 11/22/2024 Travel 11/21/2024 Telephone [facility] MEDICINE [address] [place] [address] Sofia Mitchell ANP CHART PREP 11/20/2024 Refill [facility] MEDICINE [address] [place] [address] Rut Branham MD Uncomplicated opioid dependence ([facility]/HCC) 11/18/[address] [address] Lela Witt RN Medication Compliance 11/18/2024 Telephone [facility]ICINE [address] [place] [address] Francy Kebede MA vascular appointment from Last 3 Months Immunizations Immunization Administration Dates Next Due Hep B, adult 10/17/2023 Influenza, IIV3, injectable 01/27/2011 Influenza, Split (incl. purified surface antigen ) 02/27/2012 Influenza, seasonal, injectable, preservative fr ee 02/27/2012,01/27/2011 Pfizer Covid-19 Vaccine 12+ 12/29/2020, 1 Tdap 10/17/2023,03/15/2011 Family History Medical History Relation [...] Info) Description 03/07/2025 10:00 AM EDT Telemedicine [address] [address] Marline Olivera, PharmD [address] [place] [address] 03/27/2025 9:00 AM EDT Office Visit [address] [address] Sofia Mitchell ANP [address] [place] [address] 04/03/2025 3:00 PM EST Office Visit [address] [address] Rut Branham MD [address] [place] [address] Health Maintenance Due Date Last Done Comments [...] AM EDT Narrative 01/10/2025 9:50 AM EDT [facility] Adult Primary Care [address] [place] [address] [place] [address] Ultrasound Report Signed Patient: Ross Navarrete MR#: [id number] : 1980 Acct:[id number] Age/Sex: 44 / M ADM Date: 01/09/25 Loc: HO.HMGCX Attending Dr: Sofia Mitchell NP Ordering Physician: SOFIA MITCHELL NP Date of Service: 01/09/25 Procedure(s): US bladder Accession Number(s): [id number] cc: SOFIA MITCHELL NP CLINICAL HISTORY: ?urinary [...] in OV> 01/10/2549 DD/ 7 TD/TT: 01/10/25947 Proof Carrier: Procedure Note Donotuseinterpreter, Image - 01/10/2025 [facility] Adult Primary Care [facility] [place] [address] Ultrasound Report Signed Patient: Ross Navarrete LMR#: [id number] : 1980Acct:[id number] Age/Sex: 44 / MADM Date: 01/09/25 [facility]: [facility] Attending Dr: Sofia Mitchell NP Ordering Physician: SOFIA MITCHELL NP Date of Service: 01/09/25 Procedure(s): US bladder Accession Number(s): [id number] cc: SOFIA MITCHELL NP CLINICAL HISTORY: ?urinary [...] in OV> 01/10/2549 DD/ 7 TD/TT: 01/10/25947 Proof Carrier: us Sofia Mitchell ANP IMG US PROCEDURES Final Result * (ABNORMAL) POCT HGB A1C (01/09/2025 10:56 AM EDT) Hemoglobin A1C 5.8(A) 4.0 - 5.7 % QC Media Lot # [id number] Lot# Expiration Date [id number] Blood 01/09/2025 10:5 6 AM EDT us Sofia Mitchell ANP POINT OF CARE TEST ENTER/EDIT OR DERABLES Final Result * POCT Glucose (01/09/2025 10:55 AM EDT) Glucose Blood, POC 102 60 - 200 mg/dL QC Media Lot # [id number] Lot# Expiration Date [id number] Blood Capillary blood specimen / Unknown 01/09/2025 10:55 AM EDT Sofia RAHMAN POINT OF CARE TEST ENTER/EDIT OR DERABLES Final Result * Hepatitis C Antibody with Reflex to HCV, RNA, Quantitative, Real-Time PCR (12/12/2024 1:48 PM EDT) Hepatitis C Antibody Nonreactive Nonreactive [facility] Comment:Antibodies to HCV no t detected; does not exclude early acuteHCV infection. Blood Venous blood specimen / Unknown 12/12/2024 1:48 PM EDT 12/12/2024 4:06 PM EDT us Rut Branham MD LAB BLOOD ORDERABLES Final R esult Performing Organization Address [facility] Co de Phone Number [facility] [address] [place] [phone] * Hepatitis A Antibody, Total (12/12/2024 1:48 PM EDT) Hepatitis A Antibody IgG Nonreactive Nonreactive [facility] Blood Venous blood specimen / Unknown 12/12/2024 1:48 PM EDT 12/12/2024 4:06 PM EDT us Rut Branham MD LAB BLOOD ORDERABLES Final R esult Performing Organization Address City/[facility] Co de Phone Number [facility] [address] [place] [phone] * Hepatitis B surface antigen, EIA (12/12/2024 1:48 PM EDT) Hepatitis B Surface Ag Negative Negative [facility] Blood Venous blood specimen / Unknown 12/12/2024 1:48 PM EDT 12/12/2024 4:06 PM EDT us Rut Branham MD LAB BLOOD ORDERABLES Final R esult Performing Organization Address City/[facility] Co de Phone Number [facility] [address] [place] [address] [phone] * Hepatitis B Core Antibody, Total (12/12/2024 1:48 PM EDT) Pathologist [facility] Hepatitis B Core Antibody Nonreactive Nonreactive [facility] Blood Venous blood specimen / Unknown 12/12/2024 1:48 PM EDT 12/12/2024 4:06 PM EDT Rut Branham MD LAB BLOOD ORDERABLES Final R esult Performing Organization Address [facility] Co de Phone Number [facility] [address] [place] [phone] * Hepatitis B Surface Antibody, Qualitative (12/12/2024 1:48 PM EDT) Pathologist [facility] ~Hepatitis B Surface Antibody NONREACTIVE Nonreactive [facility] Comment:Nonreactive: < 8.00 mIU/mL Blood Venous blood specimen / Unknown 12/12/2024 1:48 PM EDT 12/12/2024 4:06 PM EDT Rut Branham MD LAB BLOOD ORDERABLES Final R esult Performing Organization Address [facility] Co de Phone Number [facility] [address] [place] [address] [phone] * Hepatic Function Panel (12/12/2024 1:48 PM EDT) Pathologist [facility] Bilirubin, Total 0.8 0.0 - 1.0 mg/dL [facility] Bilirubin, Direct 0.3 0.0 - 0.5 mg/dL [facility] Aspartate Amino Transferase 31 5 - 37 U/L [facility] Alanine Aminotransferase 22 0 - 40 U/L [facility] Total Protein 7.8 6.5 - 8.0 g/dL [facility] Albumin Level 4.2 3.5 - 5.0 g/dL [facility] Alkaline Phosphatase 69 39 - 117 U/L [facility] Blood Venous blood specimen / Unknown 12/12/2024 1:48 PM EDT 12/12/2024 4:06 PM EDT Rut Branham MD LAB BLOOD ORDERABLES Final R esult [facility] [address] [place] [phone] * (ABNORMAL) POCT RAMSES-14 Urine Drug [...] 11:23 AM EST) Triglycerides 132 <150 mg/dL [facility] Comment:Desirable Triglyceri de: less than 150 mg/dLBorderline High Triglyceride 150-199 mg/dLHigh Triglyceride: 200-499 mg/dLVery High Triglyceride: greater than or equal to 5OO mg/dL Cholesterol 165 <200 mg/dL [facility] Comment:Desirable Cholestero l: less than 200 mg/dLBorderline High Cholesterol: 200-239 mg/dLHigh Cholesterol: greater than 239 mg/dL LDL Cholesterol Calculated 91 <100 mg/dL [facility] Comment:Desirable LDL: less than 100 mg/dLNear Optimal/Above Optimal LDL: 110- 129 mg/dLBorderline High LDL: 130-159 mg/dLHigh LDL: 160-189 mg/dLVery High LDL: greater than or equal to 190 mg/dL HDL Cholesterol 48 >40 mg/dL [facility] Comment:Desirable HDL: great er than 40 mg/dL Note: This HDL assay may give artificially low results in patients with liver disease. 04/24/2024 11:2 3 AM EST 04/24/2024 11:23 AM EST us Generic External Data Provider LAB BLOOD ORDERAB LES Final Result Performing Organization Address [facility]/ZIP Co de Phone Number [facility] [address] [place] [phone] * HIV-1/2 Antigen and Antibodies, Fourth Generation, with Reflexes (12/13/2023 11:48 AM EDT) HIV AB/AG Nonreactive Nonreactive [facility] Comment:HIV-1 p24 Ag and/or HIV-1/HIV-2 Ab not detected.A test result that is nonreactive does not exclude thepossibility of exposure to or infection with HIV-1 and/orHIV-2. Nonreactive results in this assay for individualswith prior exposure to HIV-1 and/or HIV-2 may be due toantigen and antibody levels that are below the limit ofdetection of this assay.The [email or web address] HIV Ag/Ab Combo assay result andsupplemental assay results should be interpreted inconjunction with the patient's clinical presentation,history and other laboratory results. If the results areinconsistent with clinical evidence, additional testing issuggested to confirm the result. Blood Venous blood specimen / Unknown 12/13/2023 11:48 AM EDT 12/13/2023 12:51 PM EDT us [facility] LAB BLOOD ORDERABLES Final Resul t Performing Organization Address City/[facility]/ZIP Co de Phone Number [facility] [address] [place] [address] [phone] from Last 3 Months or Most Recently Relevant to Health Maintenance [place] [facility] MEDICAID STAND ADULT Care Teams Senior Informatica Developer Relationship Specialty Start Date End Date Sofia Mitchell ANP [address] [place] [address] PCP - General Family Medicine 01/18/22 Real Gomez MD [address] [place] [address] 3rd [place] [address] Cardiology 10/01/24
--- OUTSIDE RECORDS SUMMARY | 2025-02-18 06:21 | XMS_ITS | Encounter Summary ---
Author Organization [employer] Address [address] [facility] [address] [facility] [place] [address] Care Team Providers Care Conservation Assistant Name Role Phone Naheed Zaman Primary Care Provider [phone] Real Gomez MD Unavailable Chico Kebede RN Unavailable [phone] Reason for Visit * Reason Onset Date Comments Med Refill 01/03/2025 Encounter Details Date Type Department Care Team (Late st Contact Info) Description 01/03/2025 Refill [facility] [address] [place] [address] Naheed Zaman ANP [address] [place] [address] Gastroesophageal reflux disease, unspecified whether esophagitis present; [...] Info) Description 03/07/2025 10:00 AM EDT Telemedicine [facility] [address] [place] [phone] Marline Olivera, PharmD [address] [place] [address] 03/27/2025 9:00 AM EDT Office Visit [facility] [address] [place] [phone] Naheed Zaman ANP [address] [place] [address] 04/03/2025 3:00 PM EST Office Visit [address] [address] Rut Branham MD [address] [place] [address] documented as of this encounter Visit Diagnoses Diagnosis Gastroesophageal reflux disease, unspecified whether esophagitis present Essential hypertension Unspecified essential hypertension Chronic low back pain without sciatica, unspecified back pain laterality documented in this encounter Additional Health Concerns Assessment Noted Time PHQ-9 Depression Total Score: 7 10/05/19 25 2:06 PM EDT documented as of this encounter Care Teams Conservation Assistant Relationship Specialty Start Date End Date Naheed Zaman ANP [address] [place] [address] PCP - General Family Medicine 01/18/22 Real Gomez MD [address] [place] [address] 3rd [place] [address] Cardiology 10/01/24 Chico Kebede RN [address] [place] [address] Registered Nurse Family Medicine 02/03/25 02/03/25 documented as of this encounter
--- OUTSIDE RECORDS SUMMARY | 2025-02-18 06:21 | XMS_ITS | Encounter Summary ---
Author Organization [employer] Address [address] 7t [place] [address] Care Team Providers Care Staff Rn Name Role Phone Naheed Zaman Primary Care Provider [phone] Real Gomez MD Unavailable Chico Kebede RN Unavailable [phone] Reason for Visit * Reason Onset Date Comments Med Refill 10/30/2024 Encounter Details Date Type Department Care Team (Late st Contact Info) Description 10/30/2024 Refill [facility] [address] [place] [address] Naheed Zaman ANP [address] [place] [address] Chronic low back pain without sciatica, unspecified [...] Info) Description 03/07/2025 10:00 AM EDT Telemedicine [facility] [address] [place] [address] Marline Olivera, PharmD [address] [place] [address] 03/27/2025 9:00 AM EDT Office Visit [facility] [address] [place] [address] Naheed Zaman ANP [address] [place] [address] 04/03/2025 3:00 PM EST Office Visit [facility] [address] [place] [address] Rut Branham MD [address] [place] [address] documented as of this encounter Visit Diagnoses Diagnosis Chronic low back pain without sciatica, unspecified back pain laterality documented in this encounter Additional Health Concerns Assessment Noted Time PHQ-9 Depression Total Score: 7 10/05/19 25 2:06 PM EDT documented as of this encounter Care Teams Staff Rn Relationship Specialty Start Date End Date Naheed Zaman ANP [address] [place] [address] PCP - General Family Medicine 01/18/22 Real Gomez MD [address] [place] [address] 3rd [place] [address] Cardiology 10/01/24 Chico Kebede, APRIL [address] [place] [address] Registered Nurse Family Medicine 02/03/25 02/03/25 documented as of this encounter
--- OUTSIDE RECORDS SUMMARY | 2025-02-18 06:21 | XMS_ITS | Encounter Summary ---
Author Organization [employer] Address [address] 7t [place] [address] Care Team Providers Care Service Tech/Welder Name Role Phone Naheed Zaman Primary Care Provider [phone] Real Gomez MD Unavailable Chico Kebede RN Unavailable [phone] Reason for Visit * Reason Onset Date Comments [facility] 12/12/2023 Encounter Details Date Type Department Care Team ([facility] st Contact Info) Description 12/12/2023 Telephone [facility] [address] [place], [place] [phone] Zay Schmidt DDS [address] [place], [place] [phone] [facility] Social History Tobacco Use Types Packs/Day [...] relief. DR Anne Robins office phone number [phone] documented in this encounter Plan of Treatment Upcoming Encounters Date Type Department Care Team (Late st Contact Info) Description 03/07/2025 10:00 AM EDT Telemedicine [address] [address] Marline Olivera, PharmD [address] [place] [address] 03/27/2025 9:00 AM EDT Office Visit [address] [address] Naheed Zaman ANP 230 [place] [address] 04/03/2025 3:00 PM EST Office Visit [address] [address] Rut Branham MD [address] [place] [address] documented as of this encounter Visit Diagnoses Not on filedocumented in this encounter Additional Health Concerns Assessment Noted Time PHQ-9 Depression Total Score: 23 11/16/ 024 3:25 PM EDT documented as of this encounter Care Teams Service Tech/Welder Relationship Specialty Start Date End Date Naheed Zaman ANP 230 [place] [address] PCP - General Family Medicine 01/18/22 Real Gomez MD [address] [place] [address] 3rd [place] [address] Cardiology 10/01/24 Chico Kebede RN 505 [place] [address] Registered Nurse Family Medicine 02/03/25 02/03/25 documented as of this encounter
--- OUTSIDE RECORDS SUMMARY | 2025-02-18 06:21 | XMS_ITS | Encounter Summary ---
Author Organization [employer] Address [address] 7t [place] [address] Care Team Providers Care Corporate Communications Associate Name Role Phone Naheed Zaman Primary Care Provider [phone] Real Gomez MD Unavailable Chico Kebede RN Unavailable Reason for Visit * Reason Onset Date Comments Med Refill 01/03/2025 Encounter Details Date Type Department Care Team (Late st Contact Info) Description 01/03/2025 Refill [facility] [address] [place] [address] Rut Branham MD 230 [place] [address] Uncomplicated opioid dependence (CMS/HCC) Social History Tobacco [...] Info) Description 03/07/2025 10:00 AM EDT Telemedicine [facility] [address] [place] [address] Marline Olivera, PharmD [address] [place] [address] 03/27/2025 9:00 AM EDT Office Visit [facility] [address] [place] [address] Naheed Zaman ANP [address] [place] [address] 04/03/2025 3:00 PM EST Office Visit [address] [address] Rut Branham MD [address] [place] [address] documented as of this encounter Visit Diagnoses Diagnosis Uncomplicated opioid dependence (CMS/HCC) documented in this encounter Additional Health Concerns Assessment Noted Time PHQ-9 Depression Total Score: 7 10/05/19 25 2:06 PM EDT documented as of this encounter Care Teams Corporate Communications Associate Relationship Specialty Start Date End Date Naheed Zaman ANP [address] [place] [address] PCP - General Family Medicine 01/18/22 Real Gomez MD [address] [place] [address] 3rd [place] [address] Cardiology 10/01/24 Chico Kebede, APRIL [address] [place] [address] Registered Nurse Family Medicine 02/03/25 02/03/25 documented as of this encounter
--- OUTSIDE RECORDS SUMMARY | 2025-02-18 06:21 | XMS_ITS | Encounter Summary ---
Author Organization [employer] Address [address] 7t [place] [address] Care Team Providers Care Putty And Patch Worker Name Role Phone Naheed Zaman Primary Care Provider [phone] Real Gomez MD Unavailable Chico Kebede RN Unavailable [phone] Reason for Visit * Reason Comments Med Refill Encounter Details Date Type Department Care Team (Late st Contact Info) Description 01/30/2025 Refill [facility] 230 [place] [address] Rut Branham MD 230 [place] [address] Uncomplicated opioid dependence (CMS/HCC) Social History Tobacco [...] Info) Description 03/07/2025 10:00 AM EDT Telemedicine [facility] [address] [place] [address] Marline Olivera, PharmD [address] [place] [address] 03/27/2025 9:00 AM EDT Office Visit [facility] [address] [place] [address] Naheed Zaman ANP [address] [place] [address] 04/03/2025 3:00 PM EST Office Visit [facility] [address] [place] [address] Rut Branham MD [address] [place] [address] documented as of this encounter Visit Diagnoses Diagnosis Uncomplicated opioid dependence (CMS/HCC) documented in this encounter Additional Health Concerns Assessment Noted Time PHQ-9 Depression Total Score: 7 10/05/19 25 2:06 PM EDT documented as of this encounter Care Teams Putty And Patch Worker Relationship Specialty Start Date End Date Naheed Zaman ANP [address] [place] [address] PCP - General Family Medicine 01/18/22 Real Gomez MD [address] [place] [address] 3rd [place] [address] Cardiology 10/01/24 Chico Kebede RN [address] [place] [address] Registered Nurse Family Medicine 02/03/25 02/03/25 documented as of this encounter
--- OUTSIDE RECORDS SUMMARY | 2025-02-18 06:21 | XMS_ITS | Encounter Summary ---
Author Organization [employer] [facility] [employer] Address [address] [facility] 7t [place] [address] Care Team Providers Care Bait Digger Name Role Phone Naheed Zaman Primary Care Provider Real Gomez MD Unavailable Chico Kebede RN Unavailable [phone] Reason for Visit * Reason Onset Date Comments Durable Medical Equipment 10/04/2022 Encounter Details Date Type Department Care Team (Late st Contact Info) Description 10/04/2022 Telephone [facility] [address] [place] [address] Naheed Zaman ANP [address] [place] [address] Durable Medical Equipment Social History Tobacco Use [...] for Compressions socks. Please contact pt at [phone] documented in this encounter Plan of Treatment Upcoming Encounters Date Type Department Care Team (Late st Contact Info) Description 03/07/2025 10:00 AM EDT Telemedicine [address] [address] Marline Olivera PharmD [address] [place] [address] 03/27/2025 9:00 AM EDT Office Visit [address] [address] Naheed Zaman ANP [address] [place] [address] 04/03/2025 3:00 PM EST Office Visit [address] [address] Rut Branham MD [address] [place] [address] documented as of this encounter Visit Diagnoses Not on filedocumented in this encounter Care Teams Bait Digger Relationship Specialty Start Date End Date Naheed Zaman ANP [address] [place] [address] PCP - General Family Medicine 01/18/22 Real Gomez MD [address] [facility] 3rd [place] [address] Cardiology 10/01/24 Chico Kebede, APRIL [address] [place] [address] Registered Nurse Family Medicine 02/03/25 02/03/25 documented as of this encounter
--- OUTSIDE RECORDS SUMMARY | 2025-02-18 06:21 | XMS_ITS | Encounter Summary ---
Author Organization [employer] Address [address] 7t [place] [address] Care Team Providers Care Clinical Research Technician Name Role Phone Naheed Zaman Primary Care Provider [phone] Real Gomez MD Unavailable Chico Kebede RN Unavailable [phone] Reason for Visit * Reason Onset Date Comments callback requested 04/23/2024 Encounter Details Date Type Department Care Team ([facility] st Contact Info) Description 04/23/2024 Telephone [facility] [address] [place] [address] Naheed Zaman ANP [address] [place] [address] callback requested Social History Tobacco Use Types [...] returning call to Madie Olson Callback number [phone] documented in this encounter Plan of Treatment Upcoming Encounters Date Type Department Care Team (Late st Contact Info) Description 03/07/2025 10:00 AM EDT Telemedicine [facility] [address] [place] [address] Marline Olivera, PharmD [address] [place] [address] 03/27/2025 9:00 AM EDT Office Visit [facility] [address] [place] [address] Naheed Zaman, ANP 230 [place] [address] 04/03/2025 3:00 PM EST Office Visit [address] [place] [address] Rut Branham MD 230 [place] [address] documented as of this encounter Visit Diagnoses Not on filedocumented in this encounter Additional Health Concerns Assessment Noted Time PHQ-9 Depression Total Score: 25 024 8:12 AM EDT documented as of this encounter Care Teams Clinical Research Technician Relationship Specialty Start Date End Date Naheed Zaman ANP [address] [place] [address] PCP - General Family Medicine 01/18/22 Real Gomez MD [address] [place] [address] 3rd [place] [address] Cardiology 10/01/24 Chico Kebede RN [address] [place] [address] Registered Nurse Family Medicine 02/03/25 02/03/25 documented as of this encounter
--- OUTSIDE RECORDS SUMMARY | 2025-02-18 06:21 | XMS_ITS | Encounter Summary ---
Author Organization [employer] [facility] Address [address] [facility] 7t [place] [address] Care Team Providers Care Manager Part Name Role Phone Naheed Zaman Primary Care Provider [phone] Real Gomez MD Unavailable Chico Kebede RN Unavailable [phone] Encounter Details Date Type Department Care Team ([facility] Contact Info) Description 07/28/2022 Abstract [facility] 230 [place] [address] Zay Schmidt DDS [address] [place] [address] Social History Tobacco Use Types Packs/Day Years [...] Upcoming Encounters Date Type Department Care Team ([facility] Contact Info) Description 03/07/2025 10:00 AM EDT Telemedicine [facility] [address] [place] [address] Marline Olivera, Mirta 230 [place] [address] 03/27/2025 9:00 AM EDT Office Visit [address] [address] Naheed Zaman ANP [address] [place] [address] 04/03/2025 3:00 PM EST Office Visit [address] [address] Rut Branham MD [address] [place] [address] documented as of this encounter Visit Diagnoses Not on filedocumented in this encounter Care Teams Manager Part Relationship Specialty Start Date End Date Naheed Zaman ANP [address] [place] [address] PCP - General Family Medicine 01/18/22 Real Gomez MD [address] [place] [address] 3rd [place] [address] Cardiology 10/01/24 Chico Kebede, APRIL [address] [place] [address] Registered Nurse Family Medicine 02/03/25 02/03/25 documented as of this encounter
== END 2025-02-18 06:19 | disposition home or self-care (01) ==
LOC: CF 06:18
PROVIDERS: Visit Provider Anesthesiology
DX: M25.312 Other instability, left shoulder (principal); M19.012 Primary osteoarthritis, left shoulder
CPT/HCPCS: 51798; 64493; 64494; 81003; 99202; J2003; J2795; Q9967

== ENCOUNTER 2025-02-18 09:04 | Outpatient (AMB) | payer MEDICAID, SELFPAY ==
--- NOTE | 2025-02-18 09:07 | A.OFFVIS_ITS ---
Intake Visit Reasons: RETENTION Intake Note: patient presents today for: new pt retention urology medications: vit b6 blood thinners: none today's PVR: 0mls Director Of Math Required: Yes Accompanied by: Self / Same As Patient Allergies seafood Allergy (Severe, Verified 02/18/25 09:08) Swelling HPI Comments Details: Ross is a pleasant Bulgarian-speaking male. He is a patient of Dr. Zaman. He seen for the following urologic conditions - feeling of incomplete emptying Bulgarian translation provided in office by qualified medical education specialist PVR 0 Successful urination He has feelings of incomplete emptying Secondary to body habitus If symptoms persist after GLP 1 weight loss he can contact us [facility] Medical History Seronegative spondyloarthropathy Vitamin D deficiency Elevated C-reactive protein (CRP) Fibromyalgia Polyarthralgia Narcotic dependence Thrombocytopenia Carpal tunnel syndrome Sleep apnea Pre-op evaluation Hx of migraines BETSY on CPAP Pre-op evaluation HTN (hypertension), benign Insulin dependent type 1 diabetes mellitus Morbid obesity Shoulder dislocation Diabetes Surgical History Hx of colonoscopy History of esophagogastroduodenoscopy (EGD) Hx of hernia repair Hx of appendectomy Family History Mother No problems noted. Brother No problems noted. Daughter No problems noted. Daughter No problems noted. Daughter No problems noted. Son No problems noted. Son No problems noted. 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 Review of Systems Const Denies chills and Denies fever(s) Card Reports no additional complaints and Denies syncope Resp Denies cough GI Denies abdominal pain and Denies heartburn Reports as per HPI and Denies change in libido Neuro Denies syncope Psych Denies change in libido Endo Denies change in libido Physical Exam Const General: cooperative, healthy appearing, comfortable and no acute distress Orientation/consciousness: patient oriented x3 HEENT Face and sinus: Yes normal facial exam Mouth: moist mucous membranes Neck Neck: Yes normal visual inspection, Yes full ROM and Yes trachea midline Chest Chest palpation & inspection: normal inspection of the chest Resp Effort & Inspection: normal respiratory effort, able to speak in complete sentences and no respiratory distress GI Inspection: Yes normal to inspection Back/Spine/Pelvis Cervical Spine: normal cervical lordosis Thoracic/Lumbar Spine: thoracic and lumbar spine normal to inspection Skin General skin exam: no rashes or lesions noted Neuro General: patient oriented x3, gait normal, tone normal and moves all extremities Extrem General: Yes normal to inspection and Yes capillary refill normal Office Procedures Post Void Residual Post Residual Void Post Void Residual (PVR): 0 [id number] Void Residual by ultrasound Results AMB Urinalysis, Automated UA Leukoctes 0 Esha/uL Last Edit by NOA Carter on 02/18/25 10:43 UA Nitrite Negative Last Edit by NOA Carter on 02/18/25 10:43 UA Urobilinogen 0.2 mg/dL Last Edit by NOA Carter on 02/18/25 10:4 3 UA Protein 15 mg/dL Last Edit by NOA Carter on 02/18/25 10:43 UA pH 6.0 Last Edit by NOA Carter on 02/18/25 10:43 UA Blood 0 Yeison/uL Last Edit by NOA Carter on 02/18/25 10:43 UA Specific [place] 1.015 Last Edit by NOA Carter on 02/18/25 10: 43 UA Ketone Last Edit by NOA Carter on 02/18/25 10:43 UA Bilirubin 0 mg/dL Last Edit by NOA Carter on 02/18/25 10:43 UA Glucose 0 mg/dL Last Edit by NOA Carter on 02/18/25 10:43 Results Reviewed Results Reviewed: Laboratory Last Values Urine pH (Auto) 6.0 02/18/25 10:43 Specific [place] (Auto) 1.015 02/18/25 10:43 Urine Protein (Auto) 15 mg/dL 02/18/25 10:43 Glucose (UA)(Auto) 0 mg/dL 02/18/25 10:43 Urine Blood (Auto) 0 Yeison/uL 02/18/25 10:43 Urine Nitrite (Auto) Negative 02/18/25 10:43 Urine Bilirubin (Auto) 0 mg/dL 02/18/25 10:43 Urine Urobilinogen (Auto) 0.2 mg/dL 02/18/25 10:43 Leukocyte Esterase (Auto) 0 Esha/uL 02/18/25 10:43 Assessment & Plan Assessment & Plan (1) Feeling of incomplete bladder emptying: Code(s): R39.14 - Feeling of incomplete bladder emptying Category: Medical Plan Follow-up p.r.n. Orders: Orders AMB Post Void Residual by ultrasound Today R33.9 - Retention of urine, unspecified AMB Urinalysis Automated Today Z13.9 - Encounter for screening, unspecified Patient Instructions: This note is constructed using voice recognition software. While every effort has been made to ensure accuracy rolls baker errors may have been included. Imaging studies, laboratory and physical exam results were discussed and reviewed in detail. No major barriers to patient understanding were identified. An opportunity to ask questions regarding the treatment plan was provided. All questions were answered. The patient expressed understanding and agreement with the above treatment plan. The patient is aware they should contact our office by phone for worsening of their current condition or the appearance of new urologic symptoms. Compliance is encouraged with any medications and followup testing that is ordered. It is a privilege to participate in the urologic care of your patient. If you have any questions or concerns regarding treatment for the above conditions, or other urologic issues, please do not hesitate to contact me. The office telephone contact is [phone]. Sincerely, Dr Jake Guzman MD, RIN [facility] - Urology Compassionate Specialist Care for the Genitourinary System Coding Level of Care Code New Pt Level 3 (63074) Diagnoses Feeling of incomplete bladder emptying R39.14 CPT Codes Post Residual Void - PVR CPT Code: 19585-Utip Void Residual by ultrasound ([id number])
== END 2025-02-18 09:42 | disposition home or self-care (01) ==
LOC: HO.HUSH 09:04
PROVIDERS: PCP Nurse Practitioner Primary Care; Visit Provider Urology
DX: Z13.9 Encounter for screening, unspecified (principal); R39.14 Feeling of incomplete bladder emptying
CPT/HCPCS: 99203

== ENCOUNTER 2025-02-18 14:21 | Outpatient (AMB) | payer MEDICAID, SELFPAY ==
--- NOTE | 2025-02-18 14:22 | A.OFFVIS_ITS ---
Vital Signs 02/18/25 14:29 Weight 407 lb BP 162/67 H Blood Pressure Location Lt brachial Position Sitting Respiration 18 Pulse 65 Pulse Source Pulse Oximeter Pulse Oximetry (%) 97 Oxygen Delivery Method Room Air Intake Visit Reasons: Left Diagnostic Suprascapular Nerve Block Camelid Fiber Sorter Required: No Allergies seafood Allergy (Severe, Verified 02/18/25 09:08) Swelling PFSH Medical History Seronegative spondyloarthropathy Vitamin D deficiency Elevated C-reactive protein (CRP) Fibromyalgia Polyarthralgia Narcotic dependence Thrombocytopenia Carpal tunnel syndrome Sleep apnea Pre-op evaluation Hx of migraines BETSY on CPAP Pre-op evaluation HTN (hypertension), benign Insulin dependent type 1 diabetes mellitus Morbid obesity Shoulder dislocation Diabetes Surgical History Hx of colonoscopy History of esophagogastroduodenoscopy (EGD) Hx of hernia repair Hx of appendectomy Family History Mother No problems noted. Brother No problems noted. Daughter No problems noted. Daughter No problems noted. Daughter No problems noted. Son No problems noted. Son No problems noted. 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 Physical Exam Vital Signs: Last Vital Signs Pulse 65 02/18/25 14:29 Resp 18 02/18/25 14:29 BP 162/67 H 02/18/25 14:29 Pulse Ox 97 02/18/25 14:29 Oxygen Delivery Method Room Air 02/18/25 14:29 Results AMB Urinalysis, Automated UA Leukoctes 0 Esha/uL Last Edit by NOA Carter on 02/18/25 10:43 UA Nitrite Negative Last Edit by NOA Carter on 02/18/25 10:43 UA Urobilinogen 0.2 mg/dL Last Edit by Carlita Martins [facility] on 02/18/25 10:4 3 UA Protein 15 mg/dL Last Edit by Carlita Martins [facility] on 02/18/25 10:43 UA pH 6.0 Last Edit by Carlita Martins, [facility] on 02/18/25 10:43 UA Blood 0 Yeison/uL Last Edit by Carlita Martins, [facility] on 02/18/25 10:43 UA Specific Paxton 1.015 Last Edit by Carlita Martins [facility] on 02/18/25 10: 43 UA Ketone Last Edit by Carlita Martins, [facility] on 02/18/25 10:43 UA Bilirubin 0 mg/dL Last Edit by Carlita Martins [facility] on 02/18/25 10:43 UA Glucose 0 mg/dL Last Edit by Carlita Martins [facility] on 02/18/25 10:43 Assessment & Plan Assessment & Plan (1) Osteoarthritis of left shoulder: Code(s): M19.012 - Primary osteoarthritis, left shoulder Category: Medical (2) Right shoulder pain: Code(s): M25.511 - Pain in right shoulder Category: Medical (3) Other instability, left shoulder: Code(s): M25.312 - Other instability, left shoulder Category: Medical Plan Diagnostic medial branch block L3,L4 dorsal ramus L5 bilateral.? ? ?Informed consent was explained to the patient. All questions were explained and? answered.? The patient was taken inside the operating room where he was positioned prone on the operating table. Time-out was performed delineating correct site, side, the nature of the procedure, patient's allergy, . All operating room staff was participating in OR time-out procedure. ? The upper back and left upper scapular area as well as left neck were prepped with ChloraPrep and draped with sterile self adhesive utility towels. C-arm was brought over the operating room. Patient had difficulty keeping his arm alongside his body. He has difficulty keeping his arm above his shoulder line. Only positioned on the table with arm hanging from the bed down was acceptable for the patient to be on the bed without extreme pain. We tried to position C- arm in numerous locations trying to find and verify suprascapular notch however in this patient's positioned and due to severe body mass we were not able to locate and demonstrate on the screen suprascapular notch. I made this decision to do the sensory portion of the suprascapular notch injection. Glenoid neck was demonstrated on the screen and the center of glenoid neck was chosen as the target of the injection. 22 gauge 5 in needle was inserted through the skin wheal raised with mixture of lidocaine 2% and ropivacaine 0.5% one-to-one, and it was advanced to were the center of the glenoid neck in tunnel vision fashion under x-ray guidance. When tip of the needle gently touched the bone injection of the contrast was performed demonstrating no intravascular and no intrapleural spread of the contrast. After that 5 cc of the preservative-free ropivacaine 0.5% was injected into the needle. Upon completion of the injection needle was removed and Band-Aid was applied. The patient tolerated the procedure well. Orders: Orders FL guidance in treatment room 02/18/25 M25.312 - Other instability, left shoulder Coding Level of Care Code Procedure Only Diagnoses Osteoarthritis of left shoulder M19.012 Right shoulder pain M25.511 Other instability, left shoulder M25.312
[2025-02-18 14:29] VITALS: BP 162/67; PULSE 65; RESP 18; O2SAT 97
--- OUTSIDE RECORDS SUMMARY | 2025-02-18 17:36 | XMS_ITS | Encounter Summary ---
Author Organization [employer] Address [address] [facility] [address] 7t [place] [address] Care Team Providers Care Building Maintenance Mechanic Name Role Phone Naheed Zaman Primary Care Provider [phone] Real Gomez MD Unavailable Chico Kebede RN Unavailable [phone] Reason for Visit * Reason Comments Med Refill Encounter Details Date Type Department Care Team (Late st Contact Info) Description 09/26/2024 Refill [facility] 230 [place] [address] Desirae Cowan MD 230 [place], [place] [phone] Social History Tobacco Use Types Packs/Day Years [...] Info) Description 03/07/2025 10:00 AM EDT Telemedicine [facility] [address] [place] [address] Marline Olivera, PharmD [address] [place] [address] 03/27/2025 9:00 AM EDT Office Visit [facility] [address] [place] [address] Naheed Zaman ANP [address] [place] [address] 04/03/2025 3:00 PM EST Office Visit [facility] [address] [place] [address] Rut Branham MD [address] [place] [address] documented as of this encounter Visit Diagnoses Not on filedocumented in this encounter Additional Health Concerns Assessment Noted Time PHQ-9 Depression Total Score: 25 024 8:12 AM EDT documented as of this encounter Care Teams Building Maintenance Mechanic Relationship Specialty Start Date End Date Naheed Zaman ANP 230 [place] [address] PCP - General Family Medicine 01/18/22 Real Gomez MD [address] 3rd [place] [address] Cardiology 10/01/24 Chico Kebede, APRIL [address] [place] [address] Registered Nurse Family Medicine 02/03/25 02/03/25 documented as of this encounter
--- OUTSIDE RECORDS SUMMARY | 2025-02-18 17:36 | XMS_ITS | Encounter Summary ---
Author Organization [employer] [facility] Address [address] [facility] 7t [place] [address] Care Team Providers Care Credit Union Teller Name Role Phone Naheed Zaman Primary Care Provider [phone] Real Gomez MD Unavailable Chico Kebede RN Unavailable [phone] Encounter Details Date Type Department Care Team (Latest Contact Info) Description 12/29/2021 Abstract [facility] Dental, Provider, DDS Social History [...] Info) Description 03/07/2025 10:00 AM EDT Telemedicine [facility] [address] [place] [address] Marline Olivera, PharmD [address] [place] [address] 03/27/2025 9:00 AM EDT Office Visit [address] [address] Naheed Zaman ANP [address] [place] [address] 04/03/2025 3:00 PM EST Office Visit [address] [place] [address] Rut Branham MD 230 [place] [address] documented as of this encounter Visit Diagnoses Not on filedocumented in this encounter Care Teams Credit Union Teller Relationship Specialty Start Date End Date Naheed Zaman ANP 230 [place] [address] PCP - General Family Medicine 01/18/22 Real Gomez MD [address] 3rd [place] [address] Cardiology 10/01/24 Chico Kebede, APRIL [address] [place] [address] Registered Nurse Family Medicine 02/03/25 02/03/25 documented as of this encounter
--- OUTSIDE RECORDS SUMMARY | 2025-02-18 17:36 | XMS_ITS | Encounter Summary ---
Author Organization [employer] Address [address] [facility] [address] 7t [place] [address] Care Team Providers Care Surveyor Mine Name Role Phone Naheed Zaman Primary Care Provider Real Gomez MD Unavailable Chico Kebede RN Unavailable [phone] Reason for Visit * Reason Onset Date Comments Med Refill 11/20/2024 Encounter Details Date Type Department Care Team (Late st Contact Info) Description 11/20/2024 Refill [facility] 230 [place] [address] Rut Branham MD 230 [place] [address] Uncomplicated opioid dependence (CMS/HCC) Social History Tobacco [...] 03/07/2025 10:00 AM EDT Telemedicine [facility] [address] [place] [address] Marline Olivera, PharmD [address] [place] [address] 03/27/2025 9:00 AM EDT Office Visit [facility] [address] [place] [address] Naheed Zaman ANP [address] [place] [address] 04/03/2025 3:00 PM EST Office Visit [address] [address] Rut Branham MD [address] [place] [address] documented as of this encounter Visit Diagnoses Diagnosis Uncomplicated opioid dependence (CMS/HCC) documented in this encounter Additional Health Concerns Assessment Noted Time PHQ-9 Depression Total Score: 7 10/05/19 25 2:06 PM EDT documented as of this encounter Care Teams Surveyor Mine Relationship Specialty Start Date End Date Naheed Zaman ANP 230 [place] [address] PCP - General Family Medicine 01/18/22 Real Gomez MD [address] [place] [address] 3rd [place] [address] Cardiology 10/01/24 Chico Kebede, APRIL [address] [place] [address] Registered Nurse Family Medicine 02/03/25 02/03/25 documented as of this encounter
--- OUTSIDE RECORDS SUMMARY | 2025-02-18 17:36 | XMS_ITS | Encounter Summary ---
Author Organization [employer] Address [address] [facility] [address] 7t [place] [address] Care Team Providers Care Aviation Safety Inspector Name Role Phone Naheed Zaman Primary Care Provider [phone] Real Gomez MD Unavailable Chico Kebede RN Unavailable [phone] Reason for Visit * Reason Onset Date Comments callback requested 04/23/2024 Encounter Details Date Type Department Care Team ([facility] st Contact Info) Description 04/23/2024 Telephone [facility] 230 [place] [address] Naheed Zaman ANP 230 [place] [address] callback requested Social History Tobacco Use Types [...] returning call to Madie Olson Callback number [phone] documented in this encounter Plan of Treatment Upcoming Encounters Date Type Department Care Team (Late st Contact Info) Description 03/07/2025 10:00 AM EDT Telemedicine [facility] [address] [place] [address] Marline Olivera, PharmD [address] [place] [address] 03/27/2025 9:00 AM EDT Office Visit [facility] [address] [place] [address] Naheed Zaman, ANP 230 [place] [address] 04/03/2025 3:00 PM EST Office Visit [address] [place] [address] Rut Branham MD 230 [place] [address] documented as of this encounter Visit Diagnoses Not on filedocumented in this encounter Additional Health Concerns Assessment Noted Time PHQ-9 Depression Total Score: 25 024 8:12 AM EDT documented as of this encounter Care Teams Aviation Safety Inspector Relationship Specialty Start Date End Date Naheed Zaman ANP 230 [place] [address] PCP - General Family Medicine 01/18/22 Real Gomez MD [address] [place] [address] 3rd [place] [address] Cardiology 10/01/24 Chico Kebede RN [address] [place] [address] Registered Nurse Family Medicine 02/03/25 02/03/25 documented as of this encounter
--- OUTSIDE RECORDS SUMMARY | 2025-02-18 17:36 | XMS_ITS | Encounter Summary ---
Author Organization [employer] Address [address] [facility] [address] 7t [place] [address] Care Team Providers Care Photographic Equipment Mechanic Name Role Phone Naheed Zaman Primary Care Provider Real Gomez MD Unavailable Chico Kebede RN Unavailable [phone] Reason for Visit * Reason Comments Med Refill Encounter Details Date Type Department Care Team (Late st Contact Info) Description 01/30/2025 Refill [facility] 230 [place] [address] Rut Branham MD 230 [place] [address] Uncomplicated opioid dependence (CMS/HCC) Social History Tobacco [...] Info) Description 03/07/2025 10:00 AM EDT Telemedicine [facility] [address] [place] [address] Marline Olivera, PharmD [address] [place] [address] 03/27/2025 9:00 AM EDT Office Visit [facility] [address] [place] [address] Naheed Zaman ANP [address] [place] [address] 04/03/2025 3:00 PM EST Office Visit [facility] [address] [place] [address] Rut Branham MD [address] [place] [address] documented as of this encounter Visit Diagnoses Diagnosis Uncomplicated opioid dependence (CMS/HCC) documented in this encounter Additional Health Concerns Assessment Noted Time PHQ-9 Depression Total Score: 7 10/05/19 25 2:06 PM EDT documented as of this encounter Care Teams Photographic Equipment Mechanic Relationship Specialty Start Date End Date Naheed Zaman ANP 230 [place] [address] PCP - General Family Medicine 01/18/22 Real Gomez MD [address] [place] [address] 3rd [place] [address] Cardiology 10/01/24 Chico Kebede RN [address] [place] [address] Registered Nurse Family Medicine 02/03/25 02/03/25 documented as of this encounter
--- OUTSIDE RECORDS SUMMARY | 2025-02-18 17:36 | XMS_ITS | Clinical Summary ---
Author Organization [address] [facility] Address [address] [place] [address] Phone Care Team Providers Care Photogrammetric Stereo Compiler Name Role Phone Naheed Zaman NP Primary Care Provider [phone] Allergies Active Allergy Reactions Criticality Noted Date [...] obesity with BMI of 6 0.0-69.9, adult ([facility] V24, [facility] V28) 04/17/2024 Acquired pes planus 05/11/2017 Pure hypercholesterolemia 05/10/2017 Pulmonary hypertension ([facility] V24, [facility] V28 ) 05/10/2017 Overview (04/17/2024): Mild, ECHO 10/21/10 C, EF 65-70% HTN (hypertension) 05/10/2017 H. pylori infection 05/10/2017 Overview (04/17/2024): + serology 08/07/2009, uncertain if treated Gout 05/10/2017 Elevated liver enzymes 05/10/2017 Overview (04/17/2024): fatty liver DJD (degenerative joint disease) 05/10/2017 Overview (04/17/2024): Mild L knee, Mod L shoulder arthropathy Asthma 05/10/2017 Proteinuria 04/30/2017 DM (diabetes mellitus), type 2 with renal complications ([facility] V24, [facility] V28) 04/30/2017 Spondylosis of lumbar region without myelopathy or radiculopathy 04/26/2017 Overview (04/17/2024): Saw [facility] Rheumatology BETSY (obstructive sleep apnea) 04/26/2017 Overview (04/17/2024): Polysomnography 08/05/2009, [facility] :On cpap 14 cm H2O 10/23/2017 Home Sleep Study insufficient data. 08/2018 - Pulm ordered split night study. Diabetes mellitus type 2 wit h neurological manifestations ([facility] V24, [facility] V28) 04/26/2017 CTS (carpal tunnel syndrome) [...] (diabetes mellitus), type 2 with renal complications ([facility] V24, [facility] V28) 04/30/2017 DX:DM (diabetes mellitus), t ype 2 with renal complications (HCC) Proteinuria 04/30/2017 DX:Proteinuria Diabetes mellitus type 2 wit h neurological manifestations ([facility] V24, [facility] V28) 04/26/2017 DX:Diabetes mellitus type 2 with neurological manifestations (HCC) Asthma 05/10/2017 DX:Asthma Elevated liver enzymes 05/10/2017 DX:Elevat ed liver enzymes; COMMENT: fatty liver Gout 05/10/2017 DX:Gout H. pylori infection 05/10/2017 DX:H. 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 DX:History of acute post-streptococcal glomerulonephritis; COMMENT: Hospitalized [facility] with anasarca/ KUNAL 2010, streptolysin titer 1060, kidney bx, Followed in past by Dr Zapata, NSAIDS not recommended HTN (hypertension) 05/10/2017 DX:HTN (hyper tension) Morbid obesity with BMI of 6 0.0-69.9, adult ([facility] V24, [facility] V28) 04/26/2017 DX:Morbid obesity wit h BMI of 60.0-69.9, adult ([facility]) BETSY (obstructive sleep apnea) 04/26/2017 DX :BETSY (obstructive sleep apnea); COMMENT: Polysomnography 08/05/2009, [facility] :On cpap 14 cm H2O Pulmonary hypertension ([facility] V24, [facility] V28) 05/10/2017 DX:Pulmonary hypertension (H CC); COMMENT: Mild, ECHO 10/21/10 [facility], EF 65-70% Otherwise normal altho suboptimal views, [...] egion without myelopathy or radiculopathy; COMMENT: Saw [facility] Rheumatology Family History Medical History Relation Name [...] Urine Albumin Creatinine Ratio (02/27/2020) Pathologist [facility] Urine Albumin Creatinine Ratio Abstracted Result [facility] Provider HEALTH MAINTENANCE Final Result * Annual BMP Blood Test (02/27/2020) Pathologist [facility] Annual BMP Blood Test Abstracted Result [facility] Provider HEALTH MAINTENANCE Final Result * (ABNORMAL) Hemoglobin A1c (02/27/2020) Pathologist [facility] Hemoglobin A1C 6.9(A) <=6.5 % Blood Venous blood specimen / Unknown Result [facility] Provider LAB BLOOD ORDERABLES Brunilda l Result * Lipid panel (02/27/2020) Pathologist [facility] LDL/HDL Ratio 3 0 - 4 Triglycerides 91 0 - 150 mg/dL Cholesterol 145 0 - 200 mg/dL HDL 58 >=40 mg/dL LDL Cholesterol 69 0 - 100 mg/dL Blood Venous blood specimen / Unknown Result [facility] Provider LAB BLOOD ORDERABLES Brunilda l Result * Hepatitis C Screening (06/22/2017) Hepatitis C Screening Abstracted us Historical Provider HEALTH MAINTENANCE Final Result from Last 3 Months or Most Recently Relevant to Health Maintenance Insurance MEDICAID - [place] Care Teams Photogrammetric Stereo Compiler Relationship Specialty Start Date End Date Naheed Zaman NP [address] [phone] PCP - General 02/21/24
--- OUTSIDE RECORDS SUMMARY | 2025-02-18 17:36 | XMS_ITS | Encounter Summary ---
Author Organization [employer] Address [address] [facility] [address] [place] [address] Care Team Providers Care Labor Delivery Rn Name Role Phone Naheed Zaman Primary Care Provider [phone] Real Gomez MD Unavailable Chico Kebede RN Unavailable [phone] Reason for Visit * Reason Onset Date Comments Med Refill 10/30/2024 Encounter Details Date Type Department Care Team (Late st Contact Info) Description 10/30/2024 Refill [facility] [address] [place] [address] Naheed Zaman ANP [address] [place] [address] Chronic low back pain without sciatica, unspecified [...] Info) Description 03/07/2025 10:00 AM EDT Telemedicine [facility] [address] [place] [address] Marline Olivera, PharmD [address] [place] [address] 03/27/2025 9:00 AM EDT Office Visit [facility] [address] [place] [address] Naheed Zaman ANP [address] [place] [address] 04/03/2025 3:00 PM EST Office Visit [facility] [address] [place] [address] Rut Branham MD [address] [place] [address] documented as of this encounter Visit Diagnoses Diagnosis Chronic low back pain without sciatica, unspecified back pain laterality documented in this encounter Additional Health Concerns Assessment Noted Time PHQ-9 Depression Total Score: 7 10/05/19 25 2:06 PM EDT documented as of this encounter Care Teams Labor Delivery Rn Relationship Specialty Start Date End Date Naheed Zaman ANP [address] [place] [address] PCP - General Family Medicine 01/18/22 Real Gomez MD [address] [place] [address] 3rd [place] [address] Cardiology 10/01/24 Chico Kebede, APRIL [address] [place] [address] Registered Nurse Family Medicine 02/03/25 02/03/25 documented as of this encounter
--- OUTSIDE RECORDS SUMMARY | 2025-02-18 17:36 | XMS_ITS | Encounter Summary ---
Author Organization [employer] Address [address] [facility] [address] [place] [address] Care Team Providers Care Stagecraft Professor Name Role Phone Naheed Zaman Primary Care Provider [phone] Real Gomez MD Unavailable Chico Kebede RN Unavailable [phone] Reason for Visit * Reason Onset Date Comments Med Refill 01/03/2025 Encounter Details Date Type Department Care Team (Late st Contact Info) Description 01/03/2025 Refill [facility] [address] [place] [address] Naheed Zaman ANP [address] [place] [address] Gastroesophageal reflux disease, unspecified whether esophagitis present; [...] Info) Description 03/07/2025 10:00 AM EDT Telemedicine [facility] [address] [place] [address] Marline Olivera, PharmD [address] [place] [address] 03/27/2025 9:00 AM EDT Office Visit [facility] [address] [place] [address] Naheed Zaman ANP [address] [place] [address] 04/03/2025 3:00 PM EST Office Visit [address] [address] Rut Branham MD [address] [place] [address] documented as of this encounter Visit Diagnoses Diagnosis Gastroesophageal reflux disease, unspecified whether esophagitis present Essential hypertension Unspecified essential hypertension Chronic low back pain without sciatica, unspecified back pain laterality documented in this encounter Additional Health Concerns Assessment Noted Time PHQ-9 Depression Total Score: 7 10/05/19 25 2:06 PM EDT documented as of this encounter Care Teams Stagecraft Professor Relationship Specialty Start Date End Date Naheed Zaman ANP [address] [place] [address] PCP - General Family Medicine 01/18/22 Real Gomez MD [address] [place] [address] 3rd [place] [address] Cardiology 10/01/24 Chico Kebede RN [address] [place] [address] Registered Nurse Family Medicine 02/03/25 02/03/25 documented as of this encounter
--- OUTSIDE RECORDS SUMMARY | 2025-02-18 17:36 | XMS_ITS | Clinical Summary ---
Author Organization [facility] Address [address] [place] [address] Phone Care Team Providers Care L Tacker Name Role Phone Naheed Zaman JOSIAH Primary Care Provider [phone] Allergies Active Allergy Reactions Criticality Noted Date [...] Description 02/05/2025 3:00 PM EDT Office Visit [facility] Medical Weight Management [address] [address] Sri Andrade MD Morbid obesity (Primary Dx); [...] Description 02/25/2025 11:00 AM EDT Office Visit [facility] General & GI Surgery [address] [address] Frankie Cobb MD, [address] [address] [email or web address] 06/11/2025 1:30 PM EST Telemedicine [facility] Medical Weight Management [address] [place] [address] Felicity Puentes CNP [address] [place] [address] 10/30/2025 10:40 AM EDT Office Visit [facility] Medical Weight Management [address] [place] [address] Sri Andrade MD [address] [place] [address] [email or web address] Health Maintenance Due Date Last Done [...] topic Medical Devices Not on file Insurance [facility] C3 ACO [facility] C3 ACO [facility] C3 ACO Care Teams L Tacker Relationship Specialty Start Date End Date Naheed Zaman ANP [address] [place] [phone] PCP - General Nurse Practitioner 01/02/25 Additional Source Comments The information contained in this document represents components of the legal health record. It is not the complete legal health record.[facility]
--- OUTSIDE RECORDS SUMMARY | 2025-02-18 17:36 | XMS_ITS | Encounter Summary ---
Author Organization [employer] Address 75 [facility] 7t [place] [address] Care Team Providers Care [employer] Director Name Role Phone Naheed Zaman Primary Care Provider [phone] Real Gomez MD Unavailable Chico Kebede RN Unavailable [phone] Reason for Visit * Reason Onset Date Comments Durable Medical Equipment 10/04/2022 Encounter Details Date Type Department Care Team (Late st Contact Info) Description 10/04/2022 Telephone [facility] MEDICINE [address] [place] [address] Naheed Zaman ANP 230 [place] [address] Durable Medical Equipment Social History Tobacco Use [...] for Compressions socks. Please contact pt at [phone] documented in this encounter Plan of Treatment Upcoming Encounters Date Type Department Care Team (Late st Contact Info) Description 03/07/2025 10:00 AM EDT Telemedicine [address] [address] Marline Olivera PharmD [address] [place] [address] 03/27/2025 9:00 AM EDT Office Visit [address] [address] Naheed Zaman ANP [address] [place] [address] 04/03/2025 3:00 PM EST Office Visit [address] [address] Rut Branham MD [address] [place] [address] documented as of this encounter Visit Diagnoses Not on filedocumented in this encounter Care Teams [employer] Director Relationship Specialty Start Date End Date Naheed Zaman ANP [address] [place] [address] PCP - General Family Medicine 01/18/22 Real Gomez MD [address] [facility] 3rd [place] [address] Cardiology 10/01/24 Chico Kebede, APRIL 505 [place] [address] Registered Nurse Family Medicine 02/03/25 02/03/25 documented as of this encounter
--- OUTSIDE RECORDS SUMMARY | 2025-02-18 17:36 | XMS_ITS | Encounter Summary ---
Author Organization [employer] [facility] Address 75 [facility] 7t [place] [address] Care Team Providers Care Core Analyst Name Role Phone Naheed Zaman Primary Care Provider [phone] Real Gomez MD Unavailable Chico Kebede RN Unavailable [phone] Reason for Visit * Reason Comments Med Refill Encounter Details Date Type Department Care Team (Late Contact Info) Description 02/02/2023 Refill [facility] MEDICINE [address] [place] [address] Rut Branham MD 230 [place] [address] Uncomplicated opioid dependence (CMS/HCC) Social History Tobacco [...] Info) Description 03/07/2025 10:00 AM EDT Telemedicine [facility] MEDICINE 230 [place] [address] Marline Olivera, Mirta 230 [place] [address] 03/27/2025 9:00 AM EDT Office Visit [address] [address] Naheed Zaman ANP 230 [place] [address] 04/03/2025 3:00 PM EST Office Visit [address] [address] Rut Branham MD 230 [place] [address] documented as of this encounter Visit Diagnoses Diagnosis Uncomplicated opioid dependence (CMS/HCC) documented in this encounter Additional Health Concerns Assessment Noted Time PHQ-9 Depression Total Score: 6 11/19/19 23 3:29 PM EDT documented as of this encounter Care Teams Core Analyst Relationship Specialty Start Date End Date Naheed Zaman ANP 230 [place] [address] PCP - General Family Medicine 01/18/22 Real Gomez MD [address] [place] [address] 3rd [place] [address] Cardiology 10/01/24 Chico Kebede RN [address] [place] [address] Registered Nurse Family Medicine 02/03/25 02/03/25 documented as of this encounter
--- OUTSIDE RECORDS SUMMARY | 2025-02-18 17:36 | XMS_ITS | Clinical Summary ---
Author Organization [email or web address] Address 75 [facility] 7t [place] [address] Care Team Providers Care Clinic Supervisor Name Role Phone Sofia Mitchell Primary Care Provider [phone] Real Gomez MD Unavailable Allergies Active Allergy Reactions Criticality Noted Date Comments Shellfish Allergy 05/02/2022 Medications * This document contains information received from the source organization and may not represent a complete record from that organization. Alcohol Swabs (Alcohol Prep) 70 % pads USE FOUR TIMES DAILY WITH INSULIN Active Blood Glucose Monitoring Suppl (FreeStyle [place] Lite) w/Device kit TEST BLOOD SUGAR FOUR TIMES DAILY Active FREESTYLE LITE test strip TEST BLOOD SUGAR FOUR TIMES DAILY Active glucose blood (FREESTYLE LITE) test strip check fingerstick 4 times a day Active Sure Comfort Pen [place] 31G X 5 MM misc USE FOUR [...] Active beta carotene (vitamin A) 3 MG (48930 UT) capsule TAKE 2 CAPSULES BY MOUTH EVERY DAY FOR 2 WEEKS 022 Active EPINEPHrine (Epipen) 0.3 MG/0.3ML injection syringeIndicatio ns:Allergy to shellfish INJECT INTRAMUSCULARLY DIRECTED ON PACKAGE AND GO TO EMERGENCY ROOM 2 each 023 Active Blood Pressure Monitor kitIndications:P ulmonary hypertension ([facility]/HCC) 1 kit in the morning. 1 kit 024 Active atorvastatin (Lipitor) 10 MG tabletIndication s:Type 2 diabetes mellitus with hyperlipidemia (CMS/HCC) ([facility]) Take 1 tablet (10 mg) [...] use. 473 mL 024 Active Continuous Glucose Manufacturing Maintenance Mechanic (FreeStyle [place] 2 [place]) deviceIndication s:Diabetes mellitus with albuminuria (CMS/HCC) ([facility]) Scan sensor every 8 hours 1 each 024 Active Continuous Glucose Sensor (FreeStyle Casey 2 Sensor) miscIndications: Diabetes mellitus with albuminuria (CMS/HCC) ([facility]) Apply 1 sensor every 14 days 2 each 024 Active glucose (BD Glucose) 5 g chewable tabletIndication s:Type 2 diabetes mellitus with hyperlipidemia (CMS/HCC) ([facility]) Chew 3 tablets (15 g) [...] Health Integration Plan Internal Follow up with [facility] Patient Self Plan Patient to reach out to [facility] team as needed, Comply with medication [...] Health Integration Plan Internal Follow up with [facility] Patient Self Plan Patient to reach out to [facility] team as needed, Comply with medication [...] Health Integration Plan Internal Follow up with [facility] Patient Self Plan Patient to utilize skills provided in intervention , Patient to reach out to [facility] team as needed, and Patient [...] Health Integration Plan Internal Follow up with [facility] External OP psychiatry Referral Patient Self Plan Patient to reach out to [facility] team as needed, Comply with [...] Patient to reach out to [facility] team as needed, Comply with [...] explained that she tried referring pt to [facility] and other centers and pt;s can not be evaluated for plastic surgery w current BMI -I request referral to be sent to [facility] but was explained is the same [...] hypertension 05/10/2017 Overview (07/28/2022): Mild, ECHO 10/21/10 [facility], EF 65-70% H. pylori infection 05/10/2017 Overview (07/28/2022): + serology 08/07/2009, uncertain if treated Gout 05/10/2017 Elevated liver enzymes 05/10/2017 Overview (07/28/2022): fatty liver Arthritis 05/10/2017 Overview (07/28/2022): Mild L knee, Mod L shoulder arthropathy Asthma 05/10/2017 Spondylosis of lumbar region without myelopathy or radiculopathy 04/26/2017 Overview (11/22/2024): Saw [facility] Rheumatology, now on humira which has been [...] sleep apnea) 05/18/2015 Overview (11/22/2024): Polysomnography 08/05/2009, [facility]: On cpap 14 cm H2O 10/23/2017 Home Sleep Study insufficient data. 08/2018 - Pulm ordered split night study. Titration was done 03/2023 and titrated to start cpap at 23ptK84. HST c/w AHI 124/hr and oxygen fritz to 70%, he was titrated Follows w/ [facility] Neurology and Sleep, Leyla Alvarado 05/18/2015 Encounters * This document contains information received from the source organization and may not represent a complete record from that organization. Date Type Department Care Team Description 02/06/2025 2:00 PM EDT Clinical Support [facility] MEDICINE [address] [place] [address] Tristen Chen RN Uncomplicated opioid dependence ([facility]) 02/06/2025 Travel 02/03/2025 Patient Outreach [address] [address] Sofia Mitchell ANP Care Coordination ([facility]/Matthew Escobar f/u, program graduation) 02/03/2025 Patient Outreach [address] [address] Sofia Mitchell ANP Care Management ([facility]- f/u call) 01/30/2025 Refill [facility] MEDICINE [address] [place] [address] Rut Branham MD Uncomplicated opioid dependence ([facility]) 01/29/2025 Refill [facility] MEDICINE [address] [place] [address] Rut Branham MD Uncomplicated opioid dependence ([facility]) 01/28/2025 Patient Outreach [facility] [address] [place] [address] Sofia Mitchell ANP 01/20/2025 Travel 01/20/2025 Patient Outreach [facility] MEDICINE [address] [place] [address] Sofia Mitchell ANP Care Coordination ([facility]/MATTHEW Escobar f/u call ) 01/20/2025 Patient Outreach [facility] [address] [place] [address] Sofia Mitchell ANP Care Coordination ([facility] f/u call) 01/17/2025 11:30 AM EDT Clinical Support [facility] MEDICINE [address] [place] [address] Lela Witt RN Type 2 diabetes mellitus with hyperlipidemia (CMS/HCC) ([facility]/HCC) 01/17/2025 Travel 01/16/2025 Telephone [facility] MEDICINE [address] [place] [address] Sofia Mitchell ANP Durable Medical Equipment 01/15/2025 Refill [facility] WALK-IN CENTER [address] [place] [address] Sofia Mitchell ANP Venous stasis dermatitis of both lower extremities 01/13/2025 Telephone [facility] MEDICINE [address] [place] [address] Sofia Mitchell ANP vasular 01/13/[address] [address] Sofia Mitchell ANP Vascular 01/10/2025 Results Follow-Up [address] [address] Sofia Mitchell ANP US BLADDER 01/09/2025 10:30 AM EDT Office Visit [address] [address] Sofia Mitchell ANP Type 2 diabetes mellitus with hyperlipidemia (CMS/HCC) (Primary Dx); Morbid obesity (CMS/HCC); Diabetic nephropathy with proteinuria (CMS/[facility]); Pulmonary hypertension ([facility]); MICHAEL (generalized anxiety disorder); Dietary counseling; Exercise counseling 01/09/2025 Travel 01/08/[address] [address] Sofia Mitchell ANP chart prep 01/03/2025 Refill [facility] MEDICINE [address] [place] [address] Sofia Mitchell ANP Gastroesophageal reflux disease, unspecified whether esophagitis present; Essential hypertension; Chronic low back pain without sciatica, unspecified back pain laterality 01/03/2025 Refill [facility] MEDICINE [address] [place] [address] Rut Branham MD Uncomplicated opioid dependence (CMS/HCC) 01/02/2025 Patient Outreach [address] [address] Sofia Mitchell ANP Care Management (C3CM- f/u call) 12/24/2024 11:15 AM EDT Office Visit [address] [address] Sofia Mitchell ANP Urinary retention (Primary Dx); [...] myelopathy or radiculopathy 12/24/2024 Travel 12/23/[address] [address] Sofia Mitchell ANP chart prep 12/20/2024 Patient Outreach [address] [address] Sofia Mitchell ANP Care Coordination (Error) 12/20/2024 Patient Outreach [address] [address] Sofia Mitchell ANP Care Management (C3CM- f/u call) 12/20/[address] [address] Sofia Mitchell ANP Nurse Triage 12/18/2024 Patient Outreach [address] [address] Sofia Micthell ANP Care Coordination ([facility]/CHW Matthew Mccain f/u call_lv) 12/16/2024 Results Follow-Up [address] [address] Sofia Mitchell ANP Hepatic Function Panel, Hepatitis A Antibody, Total, Hepatitis B Core Antibody, Total, Additional followed-up results: 3 12/12/2024 3:00 PM EDT Office Visit [address] [address] Rut Branham MD Opioid type dependence, continuous ([facility]/HCC) (Primary Dx) 12/12/2024 Travel 12/09/2024 Patient Outreach [facility] MEDICINE [address] [place] [address] Sofia Mitchell ANP Care Coordination (C3/CHW Reneeantolin Matthew Kebede f/u call ) 12/09/2024 Patient Outreach [facility] [address] [place] [address] Sofia Mitchell ANP Care Coordination (C3CM f/u call) 12/04/2024 Refill [facility] MEDICINE [address] [place] [address] Rut Branham MD Uncomplicated opioid dependence ([facility]/HCC) 11/28/[address] [address] Sofia Mitchell ANP Durable Medical Equipment 11/25/[address] [address] Lela Witt RN [facility] GI 11/25/2024 Patient Outreach [facility] [address] [place] [address] Sofia Mitchell ANP Care Coordination (C3CM f/u call) 11/22/2024 11:30 AM EDT Office Visit [address] [address] Sofia Mitchell ANP Type 2 diabetes mellitus with hyperlipidemia ([facility]/HCC) (Primary Dx); Morbid obesity ([facility]/HCC); BETSY (obstructive sleep apnea); Polyneuropathy associated with underlying disease ([facility]/HCC); Spondylosis of lumbar region without myelopathy or radiculopathy; Acute torn meniscus of knee, right, sequela 11/22/2024 Travel 11/21/2024 Telephone [facility] MEDICINE [address] [place] [address] Sofia Mitchell ANP CHART PREP 11/20/2024 Refill [facility] MEDICINE [address] [place] [address] Rut Branham MD Uncomplicated opioid dependence ([facility]/HCC) 11/18/[address] [address] Lela Witt RN Medication Compliance 11/18/2024 Telephone [facility] MEDICINE [address] [place] [address] Francy Kebede MA vascular appointment [...] Info) Description 03/07/2025 10:00 AM EDT Telemedicine [address] [address] Marline Olivera, PharmD [address] [place] [address] 03/27/2025 9:00 AM EDT Office Visit [address] [address] Sofia Mitchell ANP [address] [place] [address] 04/03/2025 3:00 PM EST Office Visit [address] [address] Rut Branham MD [address] [place] [address] Health Maintenance Due Date Last Done Comments [...] AM EDT Narrative 01/10/2025 9:50 AM EDT [facility] Adult Primary Care [address] [place] [address] [place] [address] Ultrasound Report Signed Patient: Ross Navarrete MR#: [id number] : 1980 Acct:[id number] Age/Sex: 44 / M ADM Date: 01/09/25 Loc: HO.HMGCX Attending Dr: Sofia Mitchell NP Ordering Physician: SOFIA MITCHELL NP Date of Service: 01/09/25 Procedure(s): US bladder Accession Number(s): [id number] cc: SOFIA MITCHELL NP CLINICAL HISTORY: ?urinary [...] in OV> 01/10/2549 DD/ 7 TD/TT: 01/10/25947 Pool Installer: Procedure Note Donotuseinterpreter, Image - 01/10/2025 [facility] Adult Primary Care [facility] [place] [address] Ultrasound Report Signed Patient: Ross Navarrete LMR#: [id number] : 1980Acct:[id number] Age/Sex: 44 / MADM Date: 01/09/25 [facility]: [facility] Attending Dr: Sofia Mitchell NP Ordering Physician: SOFIA MITCHELL NP Date of Service: 01/09/25 Procedure(s): US bladder Accession Number(s): [id number] cc: SOFIA MITCHELL NP CLINICAL HISTORY: ?urinary [...] in OV> 01/10/2549 DD/ 7 TD/TT: 01/10/25947 Pool Installer: us Sofia Mitchell ANP IMG US PROCEDURES [...] Media Lot # [id number] Lot# Expiration Date [id number] Blood Capillary blood specimen / Unknown 01/09/2025 [...] ORDERABLES Final R esult Performing Organization Address [facility] Co de Phone Number [facility] [address] [place] [phone] * Hepatitis A Antibody, Total (12/12/2024 1:48 PM EDT) Hepatitis A Antibody IgG Nonreactive Nonreactive [facility] Blood Venous blood specimen / Unknown 12/12/2024 1:48 PM EDT 12/12/2024 4:06 PM EDT us Rut Branham MD LAB BLOOD ORDERABLES Final R esult Performing Organization Address City/[facility] [address]/[facility] Co de Phone Number [facility] [address] [place] [phone] * Hepatitis B surface antigen, EIA (12/12/2024 1:48 PM EDT) Hepatitis B Surface Ag Negative Negative [facility] Blood Venous blood specimen / Unknown 12/12/2024 1:48 PM EDT 12/12/2024 4:06 PM EDT us Rut Branham MD LAB BLOOD ORDERABLES Final R esult Performing Organization Address City/[facility] [address]/[facility] Co de Phone Number [facility] [address] [place] [address] [phone] * Hepatitis B Core Antibody, Total (12/12/2024 1:48 PM EDT) Pathologist [facility] Hepatitis B Core Antibody Nonreactive Nonreactive [facility] Blood Venous blood specimen / Unknown 12/12/2024 1:48 PM EDT 12/12/2024 4:06 PM EDT Rut Branham MD LAB BLOOD ORDERABLES Final R esult Performing Organization Address [facility] [address]/[facility] Co de Phone Number [facility] [address] [place] [phone] * Hepatitis B Surface Antibody, Qualitative (12/12/2024 1:48 PM EDT) Pathologist [facility] ~Hepatitis B Surface Antibody NONREACTIVE Nonreactive [facility] Comment:Nonreactive: < 8.00 mIU/mL Blood Venous blood specimen / Unknown 12/12/2024 1:48 PM EDT 12/12/2024 4:06 PM EDT Rut Branham MD LAB BLOOD ORDERABLES Final R esult Performing Organization Address [facility] [address]/[facility] Co de Phone Number [facility] [address] [place] [address] [phone] * Hepatic Function Panel (12/12/2024 1:48 [...] Final R esult [facility] [address] [place] [phone] * (ABNORMAL) POCT RAMSES-14 Urine Drug [...] 11:23 AM EST) Triglycerides 132 <150 mg/dL [facility] Comment:Desirable Triglyceri de: less [...] ORDERAB LES Final Result Performing Organization Address [facility] [address]/ZIP Co de Phone Number [facility] [address] [place] [phone] * HIV-1/2 Antigen and Antibodies, Fourth Generation, with Reflexes (12/13/2023 11:48 AM EDT) HIV AB/AG Nonreactive Nonreactive [facility] Comment:HIV-1 p24 Ag and/or HIV-1/HIV-2 Ab not detected.A test result that is nonreactive does not exclude thepossibility of exposure to or infection with HIV-1 and/orHIV-2. Nonreactive results in this assay for individualswith prior exposure to HIV-1 and/or HIV-2 may be due toantigen and antibody levels that are below the limit ofdetection of this assay.The [employer] HIV Ag/Ab Combo assay result andsupplemental assay results should be interpreted inconjunction with the patient's clinical presentation,history and other laboratory results. If the results areinconsistent with clinical evidence, additional testing issuggested to confirm the result. Blood Venous blood specimen / Unknown 12/13/2023 11:48 AM EDT 12/13/2023 12:51 PM EDT us [facility] LAB BLOOD ORDERABLES Final Resul t Performing Organization Address City/[facility] [address]/ZIP Co de Phone Number [facility] [address] [place] [address] [phone] from Last 3 Months or Most Recently Relevant to Health Maintenance Insurance [place] [facility] MEDICAID STAND ADULT Care Teams Clinic Supervisor Relationship Specialty Start Date End Date Sofia Mitchell ANP [address] [place] [address] PCP - General Family Medicine 01/18/22 Real Gomez MD [address] [place] [address] 3rd [place] [address] Cardiology 10/01/24
--- OUTSIDE RECORDS SUMMARY | 2025-02-18 17:36 | XMS_ITS | Clinical Summary ---
Author Organization [facility] Address [address] [place] [address] Care Team Providers Care Plate Grainer Apprentice Name Role Phone Unavailable Primary Care Provider [...] with psychotic features ([facility]) 06/10/2024 Assessment & Plan (06/18/2024 11:18 AM EST): Patient refused to be seen, [place] marketing team lead was notified. Assessment & Plan [...] connected on video call until arrival of [place] Police with recommendation to section patient to [...] 11/14/2023 10/17/2023 Alcohol and Drug Screen 05/29/2024 [id number] (2024- season) 2025 021, 12/10/2020 Imm-Influenza (#1) 2025 02/27/2012, 01/27/2011 Diabetes Screening 10/08/2025 10/08/2024, 0 09/12/2024, 05/16/2024, Additional history exists Lipid Screening 04/24/2029 04/24/2024, 05/29, 02/27/2020 Imm-DTaP/Tdap/Td (3 - Td or Tdap) 10/16/2033 024, 03/15/2011 Hepatitis C Screening Completed 10/11/2023 HIV Screening Completed 12/13/2023, 11/26, 12/16/2021 Insurance [facility] MEDICAID
--- OUTSIDE RECORDS SUMMARY | 2025-02-18 17:36 | XMS_ITS | Encounter Summary ---
Author Organization [employer] Address [address] [facility] [address] [address] 7t [place] [address] Care Team Providers Care Coke Oven Mason Name Role Phone Naheed Zaman Primary Care Provider [phone] Real Gomez MD Unavailable Chico Kebede RN Unavailable [phone] Reason for Visit * Reason Comments Med Refill Encounter Details Date Type Department Care Team (Late st Contact Info) Description 08/18/[address] [facility] 230 [place] [address] Naheed Zaman ANP 230 [place] [address] Chronic low back pain without sciatica, unspecified [...] Info) Description 03/07/2025 10:00 AM EDT Telemedicine [address] [address] Marline Olivera PharmD [address] [place] [address] 03/27/2025 9:00 AM EDT Office Visit [facility] [address] [place] [address] Naheed Zaman ANP [address] [place] [address] 04/03/2025 3:00 PM EST Office Visit [address] [address] Rut Branham MD [address] [place] [address] documented as of this encounter Visit Diagnoses Diagnosis Chronic low back pain without sciatica, unspecified back pain laterality documented in this encounter Additional Health Concerns Assessment Noted Time PHQ-9 Depression Total Score: 6 11/19/19 23 3:29 PM EDT documented as of this encounter Care Teams Coke Oven Mason Relationship Specialty Start Date End Date Naheed Zaman ANP [address] [place] [address] PCP - General Family Medicine 01/18/22 Real Gomez MD [address] [place] [address] Drive 3rd [place] [address] Cardiology 10/01/24 Chico Kebede, APRIL 505 [place] [address] Registered Nurse Family Medicine 02/03/25 02/03/25 documented as of this encounter
--- OUTSIDE RECORDS SUMMARY | 2025-02-18 17:36 | XMS_ITS | Encounter Summary ---
Author Organization [employer] Address [address] [facility] [address] 7t [place] [address] Care Team Providers Care Liaison Planner Name Role Phone Naheed Zaman Primary Care Provider Real Gomez MD Unavailable Chico Kebede RN Unavailable [phone] Reason for Visit * Reason Onset Date Comments [facility] 12/12/2023 Encounter Details Date Type Department Care Team ([facility] st Contact Info) Description 12/12/2023 Telephone [facility] 230 [place], [place] [phone] Zay Schmidt DDS [address] [place], [place] [phone] [facility] Social History Tobacco Use Types Packs/Day [...] relief. DR Anne Robins office phone number [phone] documented in this encounter Plan of Treatment Upcoming Encounters Date Type Department Care Team (Late st Contact Info) Description 03/07/2025 10:00 AM EDT Telemedicine [address] [address] Marline Olivera, PharmD [address] [place] [address] 03/27/2025 9:00 AM EDT Office Visit [address] [address] Naheed Zaman ANP 230 [place] [address] 04/03/2025 3:00 PM EST Office Visit [address] [address] Rut Branham MD 230 [place] [address] documented as of this encounter Visit Diagnoses Not on filedocumented in this encounter Additional Health Concerns Assessment Noted Time PHQ-9 Depression Total Score: 23 11/16/ 024 3:25 PM EDT documented as of this encounter Care Teams Liaison Planner Relationship Specialty Start Date End Date Naheed Zaman ANP 230 [place] [address] PCP - General Family Medicine 01/18/22 Real Gomez MD [address] [place] [address] 3rd [place] [address] Cardiology 10/01/24 Chico Kebede RN 505 [place] [address] Registered Nurse Family Medicine 02/03/25 02/03/25 documented as of this encounter
--- OUTSIDE RECORDS SUMMARY | 2025-02-18 17:36 | XMS_ITS | Encounter Summary ---
Author Organization [facility] Address [address] [facility] 7t [place] [address] Care Team Providers Care Paleontology Teacher Name Role Phone Naheed Zaman Primary Care Provider [phone] Real Gomez MD Unavailable Chico Kebede RN Unavailable [phone] Encounter Details Date Type Department Care Team ([facility] Contact Info) Description 07/28/2022 Abstract [facility] 230 [place] [address] Zay Schmidt DDS 230 [place] [address] Social History Tobacco Use Types Packs/Day Years [...] Upcoming Encounters Date Type Department Care Team ([facility] Contact Info) Description 03/07/2025 10:00 AM EDT Telemedicine [facility] 230 [place] [address] Marline Olivera, Mirta 230 [place] [address] 03/27/2025 9:00 AM EDT Office Visit [address] [address] Naheed Zaman ANP [address] [place] [address] 04/03/2025 3:00 PM EST Office Visit [address] [address] Rut Branham MD [address] [place] [address] documented as of this encounter Visit Diagnoses Not on filedocumented in this encounter Care Teams Paleontology Teacher Relationship Specialty Start Date End Date Naheed Zaman ANP [address] [place] [address] PCP - General Family Medicine 01/18/22 Real Gomez MD [address] [place] [address] 3rd [place] [address] Cardiology 10/01/24 Chico Kebede, APRIL [address] [place] [address] Registered Nurse Family Medicine 02/03/25 02/03/25 documented as of this encounter
--- OUTSIDE RECORDS SUMMARY | 2025-02-18 17:36 | XMS_ITS | Encounter Summary ---
Author Organization [employer] Address [address] [facility] [address] 7t [place] [address] Care Team Providers Care Skiver Heel Tap Name Role Phone Naheed Zaman Primary Care Provider [phone] Real Gomez MD Unavailable Chico Kebede RN Unavailable [phone] Reason for Visit * Reason Comments Med Refill Encounter Details Date Type Department Care Team (Late st Contact Info) Description 09/14/2023 Refill [facility] 230 [place] [address] Dayna Cardenas MD 230 [place] [address] Uncomplicated opioid dependence (CMS/HCC) Social History Tobacco [...] Info) Description 03/07/2025 10:00 AM EDT Telemedicine [facility] [address] [place] [address] Marline Olivera PharmD [address] [place] [address] 03/27/2025 9:00 AM EDT Office Visit [facility] [address] [place] [address] Naheed Zaman ANP [address] [place] [address] 04/03/2025 3:00 PM EST Office Visit [address] [address] Rut Branham MD [address] [place] [address] documented as of this encounter Visit Diagnoses Diagnosis Uncomplicated opioid dependence (CMS/HCC) documented in this encounter Additional Health Concerns Assessment Noted Time PHQ-9 Depression Total Score: 6 11/18/ 23 3:29 PM EDT documented as of this encounter Care Teams Skiver Heel Tap Relationship Specialty Start Date End Date Naheed Zaman ANP [address] [place] [address] PCP - General Family Medicine 01/18/22 Real Gomez MD [address] 3rd [place] [address] Cardiology 10/01/24 Chico Kebede, APRIL 505 [place] [address] Registered Nurse Family Medicine 02/03/25 02/03/25 documented as of this encounter
--- OUTSIDE RECORDS SUMMARY | 2025-02-18 17:36 | XMS_ITS | Encounter Summary ---
Author Organization [employer] Address [address] [facility] [address] 7t [place] [address] Care Team Providers Care It Risk Analyst Name Role Phone Naheed Zaman Primary Care Provider [phone] Real Gomez MD Unavailable Chico Kebede RN Unavailable [phone] Reason for Visit * Reason Onset Date Comments Med Refill 01/03/2025 Encounter Details Date Type Department Care Team (Late st Contact Info) Description 01/03/2025 Refill [facility] 230 [place] [address] Rut Branham MD 230 [place] [address] Uncomplicated opioid dependence (CMS/HCC) Social History Tobacco [...] Info) Description 03/07/2025 10:00 AM EDT Telemedicine [facility] [address] [place] [address] Marline Olivera, PharmD [address] [place] [address] 03/27/2025 9:00 AM EDT Office Visit [facility] [address] [place] [address] Naheed Zaman ANP [address] [place] [address] 04/03/2025 3:00 PM EST Office Visit [address] [address] Rut Branham MD [address] [place] [address] documented as of this encounter Visit Diagnoses Diagnosis Uncomplicated opioid dependence (CMS/HCC) documented in this encounter Additional Health Concerns Assessment Noted Time PHQ-9 Depression Total Score: 7 10/05/19 25 2:06 PM EDT documented as of this encounter Care Teams It Risk Analyst Relationship Specialty Start Date End Date Naheed Zaman ANP 230 [place] [address] PCP - General Family Medicine 01/18/22 Real Gomez MD [address] [place] [address] 3rd [place] [address] Cardiology 10/01/24 Chico Kebdee, APRIL [address] [place] [address] Registered Nurse Family Medicine 02/03/25 02/03/25 documented as of this encounter
== END 2025-02-18 14:46 | disposition home or self-care (01) ==
LOC: HO.PMCPRC 14:21
PROVIDERS: PCP Nurse Practitioner Primary Care; Visit Provider Anesthesiology
DX: M19.012 Primary osteoarthritis, left shoulder (principal); M25.511 Pain in right shoulder; M25.312 Other instability, left shoulder
CPT/HCPCS: 64493; 64494

== ENCOUNTER 2025-02-20 12:55 | Outpatient (AMB) | payer MEDICAID, SELFPAY ==
[2025-02-20 14:01] VITALS: BP 141/77; PULSE 67; RESP 20; O2SAT 98
--- NOTE | 2025-02-20 14:01 | A.OFFVIS_ITS ---
Vital Signs 02/20/25 14:01 Weight 407 lb BP 141/77 H Blood Pressure Location Lt brachial Position Sitting Respiration 20 Pulse 67 Pulse Source Pulse Oximeter Pulse Oximetry (%) 98 Oxygen Delivery Method Room Air Intake Visit Reasons: S/P Left Diagnostic Suprascapular Nerve Block Purchasing Analyst Required: No Allergies seafood Allergy (Severe, Verified 02/18/25 09:08) Swelling HPI Comments Details: Mr. Navarrete is back in my office again with complains on pain in the left shoulder. In the past in this office he received left intra-articular shoulder injection. Initially this injection helped him in significant extent. However 2nd injection demonstrated no pain improvement. He reports unbearable pain in his left shoulder. I performed diagnostic suprascapular nerve block on the left and patient reports today that for 24 hours after the injection he felt very well. He reported almost complete pain relief for next 24 hours after the procedure. He reported excellent mobility with the limitations of his almost oncologic joint. He reported good social interactions because his pain got much better. In the past he received physical therapy for his shoulder without any success. 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 The procedure was very difficult to perform because patient could not positioned his arm anywhere on the table he requested arm to be hand from the age of the table during the procedure. Therefore visualization of the suprascapular notch was very difficult and I placed the needle into the presumable location of the sensory branches of the suprascapular nerve in the projection of the glenoid neck. I offered patient is sprint PNS to treat his condition. This is a last resort for this severely morbidly obese patient to help the pain in his left shoulder. He has poor candidate for total shoulder replacement because of his massive shoulders secondary to obesity. Radiofrequency ablation most likely we will be extremely difficult as well for this patient. Prior:? complaining on the pain in the left shoulder.? He reports that this pain was bothering him for many years but it was mild.? Two months ago the pain became severe.? He went for Orthopedic surgery office and Was recommended to have intra-articular shoulder steroid injection.? On the x-ray it was become demonstrating a loose body inside of his shoulder joint.? The dictation of the x-rays as below.? 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 For pain control he is taking meloxicam.? He never was a subject of physical therapy.? He had x-ray as dictated below [facility] Medical History Seronegative spondyloarthropathy Vitamin D deficiency Elevated C-reactive protein (CRP) Fibromyalgia Polyarthralgia Narcotic dependence Thrombocytopenia Carpal tunnel syndrome Sleep apnea Pre-op evaluation Hx of migraines BETSY on CPAP Pre-op evaluation HTN (hypertension), benign Insulin dependent type 1 diabetes mellitus Morbid obesity Shoulder dislocation Diabetes Surgical History Hx of colonoscopy History of esophagogastroduodenoscopy (EGD) Hx of hernia repair Hx of appendectomy Family History Mother No problems noted. Brother No problems noted. Daughter No problems noted. Daughter No problems noted. Daughter No problems noted. Son No problems noted. Son No problems noted. 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 Review of Systems Const All systems reviewed & are unremarkable except as noted in HPI and below ENT Reports Normal hearing present Neuro Reports Normal hearing present and Denies confusion Psych Denies confusion Physical Exam Vital Signs: Last Vital Signs Pulse 67 02/20/25 14:01 Resp 20 02/20/25 14:01 BP 141/77 H 02/20/25 14:01 Pulse Ox 98 02/20/25 14:01 Oxygen Delivery Method Room Air 02/20/25 14:01 Const General: No confusion Orientation/consciousness: No confusion HEENT Head: Yes normal to inspection, Yes normocephalic and Yes atraumatic Eyes General: appearance normal, both eyes and all related structures Resp Effort & Inspection: normal respiratory effort and able to speak in complete sentences Cardio Rate: regular rate Peripheral pulses: Peripheral pulses 2+ throughout GI Palpation (GI): Soft to palpation Skin Lesions: no lesions Rashes: no rashes Neuro General: No confusion Cranial nerves: Yes Normal hearing present Extrem Other: Left shoulder: Able to forward flexion to 25 degrees. Abduction to 25 degrees. External to neutral with little motion. Unable to do any further testing due to pain and limited ROM. Assessment & Plan Assessment & Plan (1) Osteoarthritis of left shoulder: Code(s): M19.012 - Primary osteoarthritis, left shoulder Category: Medical Plan: (2) Morbid obesity: Code(s): E66.01 - Morbid (severe) obesity due to excess calories Category: Medical (3) Left shoulder pain: Code(s): M25.512 - Pain in left shoulder Category: Medical Plan The 3rd intra-articular shoulder injection was not as effective as the 1st 2 injections in the left shoulder joint. He never was examined by Orthopedic surgeon office for his left shoulder pain. He went for the consult with orthopedic surgery which recommended physical therapy for this patient. He reports today that he is unable to perform physical therapy because of severe pain. I performed the left diagnostic suprascapular nerve block. The discussion of the condition is as above. Sprint PNS was offered to this patient as a last resort to alleviate his pain. Patient agreed to go for the procedure. Brochure was given to the patient. Coding Level of Care Code Est Pt Level 3 (88591) Diagnoses Osteoarthritis of left shoulder M19.012 Morbid obesity E66.01 Left shoulder pain M25.512
--- OUTSIDE RECORDS SUMMARY | 2025-02-20 17:39 | XMS_ITS | Encounter Summary ---
Author Organization [employer] Address [address] [facility] [address] 7t [place] [address] Care Team Providers Care Button Pusher Name Role Phone Naheed Zaman Primary Care Provider [phone] Real Gomez MD Unavailable Chico Kebede RN Unavailable [phone] Reason for Visit * Reason Onset Date Comments Med Refill 01/03/2025 Encounter Details Date Type Department Care Team (Late st Contact Info) Description 01/03/2025 Refill [facility] 230 [place] [address] Naheed Zaman ANP 230 [place] [address] Gastroesophageal reflux disease, unspecified whether esophagitis present; [...] 03/07/2025 10:00 AM EDT Telemedicine [facility] [address] [place] [address] Marline Olivera, PharmD [address] [place] [address] 03/27/2025 9:00 AM EDT Office Visit [facility] [address] [place] [address] Naheed Zaman ANP [address] [place] [address] 04/03/2025 3:00 PM EST Office Visit [address] [address] Rut Branham MD 230 [place] [address] documented as of this encounter Visit Diagnoses Diagnosis Gastroesophageal reflux disease, unspecified whether esophagitis present Essential hypertension Unspecified essential hypertension Chronic low back pain without sciatica, unspecified back pain laterality documented in this encounter Additional Health Concerns Assessment Noted Time PHQ-9 Depression Total Score: 7 10/05/19 25 2:06 PM EDT documented as of this encounter Care Teams Button Pusher Relationship Specialty Start Date End Date Naheed Zaman ANP 230 [place] [address] PCP - General Family Medicine 01/18/22 Real Gomez MD [address] [place] [address] 3rd [place] [address] Cardiology 10/01/24 Chico Kebede RN [address] [place] [address] Registered Nurse Family Medicine 02/03/25 02/03/25 documented as of this encounter
--- OUTSIDE RECORDS SUMMARY | 2025-02-20 17:39 | XMS_ITS | Encounter Summary ---
Author Organization [employer] Address [address] [facility] [address] 7t [place] [address] Care Team Providers Care Group Exercise Instructor Name Role Phone Naheed Zaman Primary Care Provider [phone] Real Gomez MD Unavailable Chico Kebede RN Unavailable [phone] Reason for Visit * Reason Comments Med Refill Encounter Details Date Type Department Care Team (Late st Contact Info) Description 09/26/2024 Refill [facility] 230 [place] [address] Desirae Cowan MD 230 [place], [place] [phone] Social History Tobacco Use Types Packs/Day Years [...] Info) Description 03/07/2025 10:00 AM EDT Telemedicine [facility] [address] [place] [address] Marline Olivera, PharmD [address] [place] [address] 03/27/2025 9:00 AM EDT Office Visit [facility] [address] [place] [address] Naheed Zaman ANP [address] [place] [address] 04/03/2025 3:00 PM EST Office Visit [facility] [address] [place] [address] Rut Branham MD [address] [place] [address] documented as of this encounter Visit Diagnoses Not on filedocumented in this encounter Additional Health Concerns Assessment Noted Time PHQ-9 Depression Total Score: 25 024 8:12 AM EDT documented as of this encounter Care Teams Group Exercise Instructor Relationship Specialty Start Date End Date Naheed Zaman ANP 230 [place] [address] PCP - General Family Medicine 01/18/22 Real Gomez MD [address] 3rd [place] [address] Cardiology 10/01/24 Chico Kebede, APRIL 505 [place] [address] Registered Nurse Family Medicine 02/03/25 02/03/25 documented as of this encounter
--- OUTSIDE RECORDS SUMMARY | 2025-02-20 17:39 | XMS_ITS | Encounter Summary ---
Author Organization [id number] Address [address] [facility] 7t [place] [address] Care Team Providers Care Bag Bleacher Name Role Phone Naheed Zaman Primary Care Provider [phone] Real Gomez MD Unavailable Chico Kebede RN Unavailable [phone] Reason for Visit * Reason Comments Med Refill Encounter Details Date Type Department Care Team (Late Contact Info) Description 02/02/2023 Refill [facility] [address] [place] [address] Rut Branham MD 230 [place] [address] Uncomplicated opioid dependence (CMS/HCC) Social History Tobacco [...] Info) Description 03/07/2025 10:00 AM EDT Telemedicine [facility] 230 [place] [address] Marline Olivera, Mirta 230 [place] [address] 03/27/2025 9:00 AM EDT Office Visit [address] [address] Naheed Zaman ANP 230 [place] [address] 04/03/2025 3:00 PM EST Office Visit [address] [address] Rut Branham MD 230 [place] [address] documented as of this encounter Visit Diagnoses Diagnosis Uncomplicated opioid dependence (CMS/HCC) documented in this encounter Additional Health Concerns Assessment Noted Time PHQ-9 Depression Total Score: 6 11/19/19 23 3:29 PM EDT documented as of this encounter Care Teams Bag Bleacher Relationship Specialty Start Date End Date Naheed Zaman ANP 230 [place] [address] PCP - General Family Medicine 01/18/22 Real Gomez MD [address] [place] [address] 3rd [place] [address] Cardiology 10/01/24 Chico Kebede RN [address] [place] [address] Registered Nurse Family Medicine 02/03/25 02/03/25 documented as of this encounter
--- OUTSIDE RECORDS SUMMARY | 2025-02-20 17:39 | XMS_ITS | Encounter Summary ---
Author Organization [employer] Address [address] 7t [place] [address] Care Team Providers Care Reel Cutter Name Role Phone Naheed Zaman Primary Care Provider [phone] Real Gomez MD Unavailable Chico Kebede RN Unavailable [phone] Reason for Visit * Reason Comments Med Refill Encounter Details Date Type Department Care Team (Late st Contact Info) Description 09/14/2023 Refill [facility] [address] [place] [address] Dayna Cardenas MD 230 [place] [address] Uncomplicated opioid dependence (CMS/HCC) Social History Tobacco [...] Info) Description 03/07/2025 10:00 AM EDT Telemedicine [facility] [address] [place] [address] Marline Olivera PharmD [address] [place] [address] 03/27/2025 9:00 AM EDT Office Visit [facility] [address] [place] [address] Naheed Zaman ANP [address] [place] [address] 04/03/2025 3:00 PM EST Office Visit [address] [address] Rut Branham MD [address] [place] [address] documented as of this encounter Visit Diagnoses Diagnosis Uncomplicated opioid dependence (CMS/HCC) documented in this encounter Additional Health Concerns Assessment Noted Time PHQ-9 Depression Total Score: 6 11/18/ 23 3:29 PM EDT documented as of this encounter Care Teams Reel Cutter Relationship Specialty Start Date End Date Naheed Zaman ANP [address] [place] [address] PCP - General Family Medicine 01/18/22 Real Gomez MD [address] 3rd [place] [address] Cardiology 10/01/24 Chico Kebede, APRIL [address] [place] [address] Registered Nurse Family Medicine 02/03/25 02/03/25 documented as of this encounter
--- OUTSIDE RECORDS SUMMARY | 2025-02-20 17:39 | XMS_ITS | Encounter Summary ---
Author Organization [facility] Address [address] 7t [place] [address] Care Team Providers Care Manager Technical Services Name Role Phone Naheed Zaman Primary Care Provider [phone] Real Gomez MD Unavailable Chico Kebede RN Unavailable [phone] Encounter Details Date Type Department Care Team (Latest Contact Info) Description 12/29/2021 Abstract [facility] Dental, Provider, DDS Social History [...] Info) Description 03/07/2025 10:00 AM EDT Telemedicine [facility] [address] [place] [address] Marline Olivera, PharmD [address] [place] [address] 03/27/2025 9:00 AM EDT Office Visit [address] [address] Naheed Zaman ANP [address] [place] [address] 04/03/2025 3:00 PM EST Office Visit [address] [place] [address] Rut Branham MD 230 [place] [address] documented as of this encounter Visit Diagnoses Not on filedocumented in this encounter Care Teams Manager Technical Services Relationship Specialty Start Date End Date Naheed Zaman ANP 230 [place] [address] PCP - General Family Medicine 01/18/22 Real Gomez MD [address] 3rd [place] [address] Cardiology 10/01/24 Chico Kebede, APRIL [address] [place] [address] Registered Nurse Family Medicine 02/03/25 02/03/25 documented as of this encounter
--- OUTSIDE RECORDS SUMMARY | 2025-02-20 17:39 | XMS_ITS | Encounter Summary ---
Author Organization [employer] Address [address] 7t [place] [address] Care Team Providers Care Call Center Associate Name Role Phone Naheed Zaman Primary Care Provider [phone] Real Gomez MD Unavailable Chico Kebede RN Unavailable [phone] Reason for Visit * Reason Comments Med Refill Encounter Details Date Type Department Care Team (Late st Contact Info) Description 08/18/2023 Refill [facility] [address] [place] [address] Naheed Zaman ANP 230 [place] [address] Chronic low back pain without sciatica, unspecified [...] Info) Description 03/07/2025 10:00 AM EDT Telemedicine [address] [address] Marline Olivera PharmD [address] [place] [address] 03/27/2025 9:00 AM EDT Office Visit [facility] [address] [place] [address] Naheed Zaman ANP [address] [place] [address] 04/03/2025 3:00 PM EST Office Visit [address] [address] Rut Branham MD [address] [place] [address] documented as of this encounter Visit Diagnoses Diagnosis Chronic low back pain without sciatica, unspecified back pain laterality documented in this encounter Additional Health Concerns Assessment Noted Time PHQ-9 Depression Total Score: 6 11/19/19 23 3:29 PM EDT documented as of this encounter Care Teams Call Center Associate Relationship Specialty Start Date End Date Naheed Zaman ANP [address] [place] [address] PCP - General Family Medicine 01/18/22 Real Gomez MD [address] [place] [address] Drive 3rd [place] [address] Cardiology 10/01/24 Chico Kebede, APRIL 505 [place] [address] Registered Nurse Family Medicine 02/03/25 02/03/25 documented as of this encounter
--- OUTSIDE RECORDS SUMMARY | 2025-02-20 17:39 | XMS_ITS | Clinical Summary ---
Author Organization [employer] Address [address] [facility] 7t [place] [address] Care Team Providers Care Vp Digital Marketing Name Role Phone Sofia Mitchell Primary Care Provider [phone] Real Gomez MD Unavailable Allergies Active Allergy Reactions Criticality Noted Date Comments Shellfish Allergy 05/02/2022 Medications * This document contains information received from the source organization and may not represent a complete record from that organization. Alcohol Swabs (Alcohol Prep) 70 % pads USE FOUR TIMES DAILY WITH INSULIN Active Blood Glucose Monitoring Suppl (FreeStyle Jay Lite) w/Device kit TEST BLOOD SUGAR FOUR TIMES DAILY Active FREESTYLE LITE test strip TEST BLOOD SUGAR FOUR TIMES DAILY Active glucose blood (FREESTYLE LITE) test strip check fingerstick 4 times a day Active Sure Comfort Pen Nicholls 31G X 5 MM misc USE FOUR [...] Active beta carotene (vitamin A) 3 MG (33054 UT) capsule TAKE 2 CAPSULES BY MOUTH EVERY DAY FOR 2 WEEKS 022 Active EPINEPHrine (Epipen) 0.3 MG/0.3ML injection syringeIndicatio ns:Allergy to shellfish INJECT INTRAMUSCULARLY DIRECTED ON PACKAGE AND GO TO EMERGENCY ROOM 2 each 023 Active Blood Pressure Monitor kitIndications:P ulmonary hypertension ([facility]/HCC) 1 kit in the morning. 1 kit 024 Active atorvastatin (Lipitor) 10 MG tabletIndication s:Type 2 diabetes mellitus with hyperlipidemia (CMS/HCC) ([facility]) Take 1 tablet (10 mg) by [...] use. 473 mL 024 Active Continuous Glucose [employer] (FreeStyle Casey 2 [place]) deviceIndication s:Diabetes mellitus with albuminuria (CMS/HCC) ([facility]) Scan sensor every 8 hours 1 each 024 Active Continuous Glucose Sensor (FreeStyle Casey 2 Sensor) miscIndications: Diabetes mellitus with albuminuria (CMS/HCC) ([facility]) Apply 1 sensor every 14 days 2 each 024 Active glucose (BD Glucose) 5 g chewable tabletIndication s:Type 2 diabetes mellitus with hyperlipidemia (CMS/HCC) ([facility]) Chew 3 tablets (15 g) if [...] Health Integration Plan Internal Follow up with [facility] Patient Self Plan Patient to reach out [facility] team [facility] needed, Comply with medication [...] Health Integration Plan Internal Follow up with [facility] Patient Self Plan Patient to reach [facility] to [facility] team as needed, Comply with medication [...] Health Integration Plan Internal Follow up with [facility] Patient Self Plan Patient to utilize skills provided in intervention , Patient to reach out to [facility] team as needed, and Patient [...] Health Integration Plan Internal Follow up with [facility] External OP psychiatry Referral Patient Self Plan [...] explained that she tried referring [place] [facility] and other centers and pt;s can not [...] hypertension 05/10/2017 Overview (07/28/2022): Mild, ECHO 10/21/10 [facility], EF 65-70% H. pylori infection 05/10/2017 Overview (07/28/2022): + serology 08/07/2009, uncertain if treated Gout 05/10/2017 Elevated liver enzymes 05/10/2017 Overview (07/28/2022): fatty liver Arthritis 05/10/2017 Overview (07/28/2022): Mild L knee, Mod L shoulder arthropathy Asthma 05/10/2017 Spondylosis of lumbar region without myelopathy or radiculopathy 04/26/2017 Overview (11/22/2024): Saw [facility] Rheumatology, now on [...] sleep apnea) 05/18/2015 Overview (11/22/2024): Polysomnography 08/05/2009, [facility]: On cpap 14 cm H2O 10/23/2017 Home Sleep Study insufficient data. 08/2018 - Pulm ordered split night study. Titration was done 03/2023 and titrated to start cpap at 62vbQ86. HST c/w AHI 124/hr and oxygen fritz to 70%, he was titrated Follows w/ [facility] Neurology and Sleep, Leyla Alvarado 05/18/2015 Encounters * This document contains information received from the source organization and may not represent a complete record from that organization. Date Type Department Care Team Description 02/06/2025 2:00 PM EDT Clinical Support [facility] [address] [place] [address] Tristen Chen RN Uncomplicated opioid dependence ([facility]) 02/06/2025 Travel 02/03/2025 Patient Outreach [address] [address] Sofia Mitchell ANP Care Coordination ([facility]/Matthew Escobar f/u, program graduation) 02/03/2025 Patient Outreach [address] [address] Sofia Mitchell ANP Care Management ([facility]- f/u call) 01/30/2025 Refill [facility] [address] [place] [address] Rut Branham MD Uncomplicated opioid dependence ([facility]) 01/29/2025 Refill [facility] [address] [place] [address] Rut Branham MD Uncomplicated opioid dependence ([facility]) 01/28/2025 Patient Outreach [facility] [address] [place] [address] Sofia Mitchell ANP 01/20/2025 Travel 01/20/2025 Patient Outreach [facility] [address] [place] [address] Sofia Mitchell ANP Care Coordination ([facility]/MATTHEW Escobar f/u call ) 01/20/2025 Patient Outreach [facility] [address] [place] [address] Sofia Mitchell ANP Care Coordination ([facility] f/u call) 01/17/2025 11:30 AM EDT Clinical Support [facility] [address] [place] [address] Lela Witt RN Type 2 diabetes mellitus with hyperlipidemia (CMS/HCC) ([facility]/HCC) 01/17/2025 Travel 01/16/2025 Telephone [facility] [address] [place] [address] Sofia Mitchell ANP Durable Medical Equipment 01/15/2025 Refill [facility] [address] [place] [address] Sofia Mitchell ANP Venous stasis dermatitis of both lower extremities 01/13/2025 Telephone [facility] [address] [place] [address] Sofia Mitchell ANP vasular 01/13/[address] [address] Sofia Mitchell ANP Vascular 01/10/2025 Results Follow-Up [address] [address] Sofia Mitchell ANP US BLADDER 01/09/2025 10:30 AM EDT Office Visit [address] [address] Sofia Mitchell ANP Type 2 diabetes mellitus with hyperlipidemia (CMS/HCC) (Primary Dx); Morbid obesity (CMS/HCC); Diabetic nephropathy with proteinuria (CMS/[facility]); Pulmonary hypertension ([facility]); MICHAEL (generalized anxiety disorder); Dietary counseling; Exercise counseling 01/09/2025 Travel 01/08/[address] [address] Sofia Mitchell ANP chart prep 01/03/2025 Refill [facility] [address] [place] [address] Sofia Mitchell ANP Gastroesophageal reflux disease, unspecified whether esophagitis present; Essential hypertension; Chronic low back pain without sciatica, unspecified back pain laterality 01/03/2025 Refill [facility] [address] [place] [address] Rut Branham MD Uncomplicated opioid dependence (CMS/HCC) 01/02/2025 Patient Outreach [address] [address] Sofia Mitchell ANP Care Management (C3CM- f/u call) 12/24/2024 11:15 AM EDT Office Visit [address] [address] Sofia Mitchell ANP Urinary retention (Primary Dx); [...] myelopathy or radiculopathy 12/24/2024 Travel 12/23/[address] [address] Sofia Mitchell ANP chart prep 12/20/2024 Patient Outreach [address] [address] Sofia Mitchell ANP Care Coordination (Error) 12/20/2024 Patient Outreach [address] [address] Sofia Mitchell ANP Care Management (C3CM- f/u call) 12/20/[address] [address] Sofia Mitchell ANP Nurse Triage 12/18/2024 Patient Outreach [address] [address] Sofia Mitchell ANP Care Coordination ([facility]/CHW Matthew Mccain f/u call_lv) 12/16/2024 Results Follow-Up [address] [address] Sofia Mitchell ANP Hepatic Function Panel, Hepatitis A Antibody, Total, Hepatitis B Core Antibody, Total, Additional followed-up results: 3 12/12/2024 3:00 PM EDT Office Visit [address] [address] Rut Branham MD Opioid type dependence, continuous (CMS/HCC) (Primary Dx) 12/12/2024 Travel 12/09/2024 Patient Outreach [facility] [address] [place] [address] Sofia Mitchell ANP Care Coordination (C3/CHW Matthew Mccain f/u call ) 12/09/2024 Patient Outreach [facility] [address] [place] [address] Sofia Mitchell ANP Care Coordination (C3CM f/u call) 12/04/2024 Refill [facility] [address] [place] [address] Rut Branham MD Uncomplicated opioid dependence (CMS/HCC) 11/28/[address] [address] Sofia Mitchell ANP Durable Medical Equipment 11/25/[address] [address] Lela Witt RN [facility] GI 11/25/2024 Patient Outreach [facility] [address] [place] [address] Sofia Mitchell ANP Care Coordination (C3CM f/u call) 11/22/2024 11:30 AM EDT Office Visit [address] [address] Sofia Mitchell ANP Type 2 diabetes mellitus with hyperlipidemia (CMS/HCC) (Primary Dx); Morbid obesity (CMS/HCC); BETSY (obstructive sleep apnea); Polyneuropathy associated with underlying disease (CMS/HCC); Spondylosis of lumbar region without myelopathy or radiculopathy; Acute torn meniscus of knee, right, sequela 11/22/2024 Travel 11/21/2024 Telephone [facility] [address] [place] [address] Sofia Mitchell ANP CHART PREP 11/20/2024 Refill [facility] [address] [place] [address] Rut Branham MD Uncomplicated opioid dependence (CMS/HCC) from Last 3 Months Immunizations Immunization Administration [...] Info) Description 03/07/2025 10:00 AM EDT Telemedicine [facility] [address] [place] [address] Marline Olivera, PharmD [address] [place] [address] 03/27/2025 9:00 AM EDT Office Visit [facility] [address] [place] [address] Sofia Mitchell ANP [address] [place] [address] 04/03/2025 3:00 PM EST Office Visit [facility] [address] [place] [address] Rut Branham MD [address] [place] [address] Health Maintenance Due Date Last Done Comments [...] AM EDT Narrative 01/10/2025 9:50 AM EDT [facility] [address] [place] [address] [place] [address] Ultrasound Report Signed Patient: Ross Navarrete MR#: [id number] : 1980 Acct:[id number] Age/Sex: 44 / M ADM Date: 01/09/25 Loc: HO.HMGCX Attending Dr: Sofia Mitchell NP Ordering Physician: SOFIA MITCHELL NP Date of Service: 01/09/25 Procedure(s): US bladder Accession Number(s): [id number] cc: SOFIA MITCHELL NP CLINICAL HISTORY: ?urinary [...] in OV> 01/10/2549 DD/ 7 TD/TT: 01/10/25947 Clinical Social Worker: Procedure Note Donotuseinterpreter, Image - 01/10/2025 [facility] [address] [place] [address] [place] [address] Ultrasound Report Signed Patient: Ross Navarrete LMR#: [id number] : 1980Acct:[id number] Age/Sex: 44 / MADM Date: 01/09/25 Loc: HO.HMGCX Attending Dr: Sofia Mitchell NP Ordering Physician: SOFIA MITCHELL NP Date of Service: 01/09/25 Procedure(s): US bladder Accession Number(s): [id number] cc: SOFIA MITCHELL NP CLINICAL HISTORY: ?urinary [...] in OV> 01/10/25948 DD/ 7 TD/TT: 01/10/25947 Clinical Social Worker: Sofia Mitchell ANP IMG US PROCEDURES Final Result * (ABNORMAL) POCT HGB A1C (01/09/2025 10:56 AM EDT) Hemoglobin A1C 5.8(A) 4.0 - 5.7 % QC Media Lot # [id number] Lot# Expiration Date 4,162, Blood 01/09/2025 10:5 6 AM EDT us Sofia Mitchell ANP POINT OF CARE TEST ENTER/EDIT OR DERABLES Final Result * POCT Glucose (01/09/2025 10:55 AM EDT) Glucose Blood, POC 102 60 - 200 mg/dL QC Media Lot # [id number] Lot# Expiration Date [id number] Blood Capillary blood specimen / Unknown 01/09/2025 10:55 AM EDT us Sofia Mitchell ANP POINT OF CARE TEST ENTER/EDIT OR DERABLES Final Result * Hepatitis C Antibody with Reflex to HCV, RNA, Quantitative, Real-Time PCR (12/12/2024 1:48 PM EDT) Pathologist [facility] Hepatitis C Antibody Nonreactive Nonreactive [facility] Comment:Antibodies to HCV no t detected; does not exclude early acuteHCV infection. Blood Venous blood specimen / Unknown 12/12/2024 1:48 PM EDT 12/12/2024 4:06 PM EDT Rut Branham MD LAB BLOOD ORDERABLES Final R esult Performing Organization Address City/[facility] Co de Phone Number [facility] [address] [place] [phone] * Hepatitis A Antibody, Total (12/12/2024 1:48 PM EDT) Pathologist [facility] Hepatitis A Antibody IgG Nonreactive Nonreactive [facility] Blood Venous blood specimen / Unknown 12/12/2024 1:48 PM EDT 12/12/2024 4:06 PM EDT Rut Branham MD LAB BLOOD ORDERABLES Final R esult Performing Organization Address [facility] Co de Phone Number [facility] [address] [place] [phone] * Hepatitis B surface antigen, EIA (12/12/2024 1:48 PM EDT) [facility] Hepatitis B Surface Ag Negative Negative [facility] Blood Venous blood specimen / Unknown 12/12/2024 1:48 PM EDT 12/12/2024 4:06 PM EDT Rut Branham MD LAB BLOOD ORDERABLES Final R esult Performing Organization Address [facility] Co de Phone Number [facility] [address] [place] [phone] * Hepatitis B Core Antibody, Total (12/12/2024 1:48 PM EDT) [facility] Hepatitis B Core Antibody Nonreactive Nonreactive [facility] Blood Venous blood specimen / Unknown 12/12/2024 1:48 PM EDT 12/12/2024 4:06 PM EDT Rut Branham MD LAB BLOOD ORDERABLES Final R esult Performing Organization Address [facility] Co de Phone Number [facility] [address] [place] [phone] * Hepatitis B Surface Antibody, Qualitative (12/12/2024 1:48 PM EDT) Pathologist [facility] ~Hepatitis B Surface Antibody NONREACTIVE Nonreactive [facility] Comment:Nonreactive: < 8.00 mIU/mL Blood Venous blood specimen / Unknown 12/12/2024 1:48 PM EDT 12/12/2024 4:06 PM EDT Rut Branham MD LAB BLOOD ORDERABLES Final R esult Performing Organization Address [facility] Co de Phone Number [facility] [address] [place] [phone] * Hepatic Function Panel (12/12/2024 1:48 PM EDT) Bilirubin, Total 0.8 0.0 - 1.0 mg/dL [facility] Bilirubin, Direct 0.3 0.0 - 0.5 mg/dL [facility] Aspartate Amino Transferase 31 5 - 37 U/L [facility] Alanine Aminotransferase 22 0 - 40 U/L [facility] Total Protein 7.8 6.5 - 8.0 g/dL [facility] Albumin Level 4.2 3.5 - 5.0 g/dL [facility] Alkaline Phosphatase 69 39 - 117 U/L [facility] Blood Venous blood specimen / Unknown 12/12/2024 1:48 PM EDT 12/12/2024 4:06 PM EDT Rut Branham MD LAB BLOOD ORDERABLES Final R esult [facility] [address] [place] [phone] [phone] * (ABNORMAL) POCT RAMSES-14 Urine Drug [...] 11:23 AM EST) Triglycerides 132 <150 mg/dL [facility] Comment:Desirable Triglyceri de: less than 150 mg/dLBorderline High Triglyceride 150-199 mg/dLHigh Triglyceride: 200-499 mg/dLVery High Triglyceride: greater than or equal to 5OO mg/dL Cholesterol 165 <200 mg/dL [facility] Comment:Desirable Cholestero l: less than 200 mg/dLBorderline High Cholesterol: 200-239 mg/dLHigh Cholesterol: greater than 239 mg/dL LDL Cholesterol Calculated 91 <100 mg/dL [facility] Comment:Desirable LDL: less than [...] ORDERAB LES Final Result Performing Organization Address [facility]/ZIP Co de Phone Number [facility] [address] [place] [phone] * HIV-1/2 Antigen and Antibodies, Fourth Generation, with Reflexes (12/13/2023 11:48 AM EDT) [facility] HIV AB/AG Nonreactive Nonreactive [facility] Comment:HIV-1 p24 Ag and/or HIV-1/HIV-2 Ab not detected.A test result that is nonreactive does not exclude thepossibility of exposure to or infection with HIV-1 and/orHIV-2. Nonreactive results in this assay for individualswith prior exposure to HIV-1 and/or HIV-2 may be due toantigen and antibody levels that are below the limit ofdetection of this assay.The [employer] HIV Ag/Ab Combo assay result andsupplemental assay results should be interpreted inconjunction with the patient's clinical presentation,history and other laboratory results. If the results areinconsistent with clinical evidence, additional testing issuggested to confirm the result. Blood Venous blood specimen / Unknown 12/13/2023 11:48 AM EDT 12/13/2023 12:51 PM EDT [facility] LAB BLOOD ORDERABLES Final Resul t Performing Organization Address [facility]/ZIP Co de Phone Number [facility] [address] [place] [phone] from Last 3 Months or Most Recently Relevant to Health Maintenance [place] [employer] Care Teams Vp Digital Marketing Relationship Specialty Start Date End Date Sofia Mitchell ANP [address] [place] [address] PCP - General Family Medicine 01/18/22 Real Gomez MD [address] [place] [address] Drive 3rd [place] [address] Cardiology 10/01/24
--- OUTSIDE RECORDS SUMMARY | 2025-02-20 17:39 | XMS_ITS | Clinical Summary ---
Author Organization [facility] Address [address] [place] [address] Care Team Providers Care Gambling Box Person Name Role Phone Unavailable Primary Care Provider [...] recurrent major depressive disorder, with psychotic features ([facility]) 06/10/2024 Assessment & Plan (06/18/2024 11:18 AM EST): Patient refused to be seen, [place] truck driver teamster was notified. Assessment & Plan (06/10/2024 5:36 [...] connected on video call until arrival of [place] Police with recommendation to section patient to [...] 11/14/2023 10/17/2023 Alcohol and Drug Screen 05/29/2024 Qpr-PAEFV-29 (2024- season) 2025 021, 12/10/2020 Imm-Influenza (#1) 2025 02/27/2012, 01/27/2011 Diabetes Screening 10/08/2025 10/08/2024, 0 09/12/2024, 05/16/2024, Additional history exists Lipid Screening 04/24/2029 04/24/2024, 05/29, 02/27/2020 Imm-DTaP/Tdap/Td (3 - Td or Tdap) 10/16/2033 024, 03/15/2011 Hepatitis C Screening Completed 10/11/2023 HIV Screening Completed 12/13/2023, 11/26, 12/16/2021 Insurance [facility] MEDICAID
--- OUTSIDE RECORDS SUMMARY | 2025-02-20 17:39 | XMS_ITS | Encounter Summary ---
Author Organization [employer] Address [address] 7t [place] [address] Care Team Providers Care Instrument Technologist Name Role Phone Naheed Zaman Primary Care Provider [phone] Real Gomez MD Unavailable Chico Kebede RN Unavailable [phone] Reason for Visit * Reason Onset Date Comments Med Refill 11/20/2024 Encounter Details Date Type Department Care Team (Late st Contact Info) Description 11/20/2024 Refill [facility] MEDICINE [address] [place] [address] uRt Branham MD 230 [place] [address] Uncomplicated opioid dependence (CMS/HCC) Social History Tobacco [...] EDT Telemedicine [facility] MEDICINE [address] [place] [address] Marline Olivera, PharmD [address] [place] [address] 03/27/2025 9:00 AM EDT Office Visit [facility] MEDICINE [address] [place] [address] Naheed Zaman ANP [address] [place] [address] 04/03/2025 3:00 PM EST Office Visit [address] [address] Rut Branham MD [address] [place] [address] documented as of this encounter Visit Diagnoses Diagnosis Uncomplicated opioid dependence (CMS/HCC) documented in this encounter Additional Health Concerns Assessment Noted Time PHQ-9 Depression Total Score: 7 10/05/19 25 2:06 PM EDT documented as of this encounter Care Teams Instrument Technologist Relationship Specialty Start Date End Date Naheed Zaman ANP 230 [place] [address] PCP - General Family Medicine 01/18/22 Real Gomez MD [address] [place] [address] 3rd [place] [address] Cardiology 10/01/24 Chico Kebede, APRIL [address] [place] [address] Registered Nurse Family Medicine 02/03/25 02/03/25 documented as of this encounter
--- OUTSIDE RECORDS SUMMARY | 2025-02-20 17:39 | XMS_ITS | Clinical Summary ---
Author Organization [facility] Address [address] [place] [address] Phone Care Team Providers Care Operations Representative Name Role Phone Naheed Zaman NP Primary Care Provider [phone] Allergies Active Allergy Reactions Criticality Noted Date [...] obesity with BMI of 6 0.0-69.9, adult ([facility] V24, [facility] V28) 04/17/2024 Acquired pes planus 05/11/2017 Pure hypercholesterolemia 05/10/2017 Pulmonary hypertension ([facility] V24, [facility] V28 ) 05/10/2017 Overview (04/17/2024): [...] (diabetes mellitus), type 2 with renal complications ([facility] V24, [facility] V28) 04/30/2017 Spondylosis of lumbar region without myelopathy or radiculopathy 04/26/2017 Overview (04/17/2024): Saw [facility] Rheumatology BETSY (obstructive sleep apnea) 04/26/2017 Overview (04/17/2024): Polysomnography 08/05/2009, [facility] :On cpap 14 cm H2O 10/23/2017 Home Sleep Study insufficient data. 08/2018 - Pulm ordered split night study. Diabetes mellitus type 2 wit h neurological manifestations ([facility] V24, [facility] V28) 04/26/2017 CTS (carpal tunnel [...] (diabetes mellitus), type 2 with renal complications ([facility] V24, [facility] V28) 04/30/2017 DX:DM (diabetes mellitus), t ype 2 with renal complications (HCC) Proteinuria 04/30/2017 DX:Proteinuria Diabetes mellitus type 2 wit h neurological manifestations ([facility] V24, [facility] V28) 04/26/2017 DX:Diabetes mellitus type 2 with neurological manifestations (HCC) Asthma 05/10/2017 DX:Asthma Elevated liver enzymes 05/10/2017 DX:Elevat ed liver enzymes; COMMENT: fatty liver Gout 05/10/2017 DX:Gout H. pylori infection 05/10/2017 DX:H. 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 DX:History of acute post-streptococcal glomerulonephritis; COMMENT: Hospitalized [facility] with anasarca/ KUNAL 2010, streptolysin titer 1060, kidney bx, Followed in past by Dr Zapata, NSAIDS not recommended HTN (hypertension) 05/10/2017 DX:HTN (hyper tension) Morbid obesity with BMI of 6 0.0-69.9, adult ([facility] V24, [facility] V28) 04/26/2017 DX:Morbid obesity wit h BMI of 60.0-69.9, adult ([facility]) BETSY (obstructive sleep apnea) 04/26/2017 DX :BETSY (obstructive sleep apnea); COMMENT: Polysomnography 08/05/2009, [facility] :On cpap 14 cm H2O Pulmonary hypertension ([facility] V24, [facility] V28) 05/10/2017 DX:Pulmonary hypertension (H CC); COMMENT: Mild, ECHO 10/21/10 [facility], EF 65-70% Otherwise normal altho suboptimal views, [...] without myelopathy or radiculopathy; COMMENT: Saw [facility] Rheumatology Family History Medical History Relation Name [...] * Urine Albumin Creatinine Ratio (02/27/2020) Pathologist [facility] Urine Albumin Creatinine Ratio Abstracted Result [facility] Provider HEALTH MAINTENANCE Final Result * Annual BMP Blood Test (02/27/2020) Pathologist [facility] Annual BMP Blood Test Abstracted Result [facility] Provider HEALTH MAINTENANCE Final Result * (ABNORMAL) Hemoglobin A1c (02/27/2020) Pathologist [facility] Hemoglobin A1C 6.9(A) <=6.5 % Blood Venous blood specimen / Unknown Result [facility] Provider LAB BLOOD ORDERABLES Brunilda l Result * Lipid panel (02/27/2020) Pathologist [facility] LDL/HDL Ratio 3 0 - 4 Triglycerides 91 0 - 150 mg/dL Cholesterol 145 0 - 200 mg/dL HDL 58 >=40 mg/dL LDL Cholesterol 69 0 - 100 mg/dL Blood Venous blood specimen / Unknown Result [facility] Provider LAB BLOOD ORDERABLES Brunilda l Result * Hepatitis C Screening (06/22/2017) Hepatitis C Screening Abstracted us Historical Provider HEALTH MAINTENANCE Final Result from Last 3 Months or Most Recently Relevant to Health Maintenance Insurance MEDICAID - [place] Care Teams Operations Representative Relationship Specialty Start Date End Date Naheed Zaman NP [address] [id number] PCP - General 02/21/24
--- OUTSIDE RECORDS SUMMARY | 2025-02-20 17:39 | XMS_ITS | Encounter Summary ---
Author Organization [employer] Address [address]t [place] [address] Care Team Providers Care Shank Skinner Name Role Phone Naheed Zaman Primary Care Provider [phone] Real Gomez MD Unavailable Chico Kebede RN Unavailable [phone] Reason for Visit * Reason Onset Date Comments callback requested 04/23/2024 Encounter Details Date Type Department Care Team ([facility] st Contact Info) Description 04/23/2024 Telephone [facility] MEDICINE 230 [place] [address] Naheed Zaman ANP [address] [place] [address] callback requested Social History Tobacco Use Types [...] returning call to Madie Olson Callback number [phone] documented in this encounter Plan of Treatment Upcoming Encounters Date Type Department Care Team (Late st Contact Info) Description 03/07/2025 10:00 AM EDT Telemedicine [facility] MEDICINE [address] [place] [address] Marline Olivera, PharmD [address] [place] [address] 03/27/2025 9:00 AM EDT Office Visit [facility] MEDICINE [address] [place] [address] Naheed Zaman, ANP 230 [place] [address] 04/03/2025 3:00 PM EST Office Visit [address] [place] [address] Rut Branham MD 230 [place] [address] documented as of this encounter Visit Diagnoses Not on filedocumented in this encounter Additional Health Concerns Assessment Noted Time PHQ-9 Depression Total Score: 25 024 8:12 AM EDT documented as of this encounter Care Teams Shank Skinner Relationship Specialty Start Date End Date Naheed Zaman ANP 230 [place] [address] PCP - General Family Medicine 01/18/22 Real Gomez MD [address] [place] [address] 3rd [place] [address] Cardiology 10/01/24 Chico Kebede RN [address] [place] [address] Registered Nurse Family Medicine 02/03/25 02/03/25 documented as of this encounter
--- OUTSIDE RECORDS SUMMARY | 2025-02-20 17:40 | XMS_ITS | Encounter Summary ---
Author Organization [employer] Address [address] 7t [place] [address] Care Team Providers Care Fisher Pound Net Or Trap Name Role Phone Naheed Zaman Primary Care Provider [phone] Real Gomez MD Unavailable Chico Kebede RN Unavailable [phone] Reason for Visit * Reason Onset Date Comments Med Refill 01/03/2025 Encounter Details Date Type Department Care Team (Late st Contact Info) Description 01/03/2025 Refill [facility] MEDICINE 230 [place] [address] Rut Branham MD 230 [place] [address] Uncomplicated opioid dependence (CMS/HCC) Social History Tobacco [...] Info) Description 03/07/2025 10:00 AM EDT Telemedicine [facility] MEDICINE [address] [place] [address] Marline Olivera, PharmD [address] [place] [address] 03/27/2025 9:00 AM EDT Office Visit [facility] MEDICINE [address] [place] [address] Naheed Zaman ANP [address] [place] [address] 04/03/2025 3:00 PM EST Office Visit [address] [address] Rut Branham MD [address] [place] [address] documented as of this encounter Visit Diagnoses Diagnosis Uncomplicated opioid dependence (CMS/HCC) documented in this encounter Additional Health Concerns Assessment Noted Time PHQ-9 Depression Total Score: 7 10/05/19 25 2:06 PM EDT documented as of this encounter Care Teams Fisher Pound Net Or Trap Relationship Specialty Start Date End Date Naheed Zaman ANP 230 [place] [address] PCP - General Family Medicine 01/18/22 Real Gomez MD [address] [place] [address] 3rd [place] [address] Cardiology 10/01/24 Chico Kebede, APRIL [address] [place] [address] Registered Nurse Family Medicine 02/03/25 02/03/25 documented as of this encounter
--- OUTSIDE RECORDS SUMMARY | 2025-02-20 17:40 | XMS_ITS | Encounter Summary ---
Author Organization [employer] Address [address] 7t [place] [address] Care Team Providers Care Research Environmental Scientist Name Role Phone Naheed Zaman Primary Care Provider [phone] Real Gomez MD Unavailable Chico Kebede RN Unavailable [phone] Reason for Visit * Reason Onset Date Comments [facility] 12/12/2023 Encounter Details Date Type Department Care Team ([facility] st Contact Info) Description 12/12/2023 Telephone [facility] ADULT DENTAL 230 [place], [place] [phone] Zay Schmidt DDS 230 [place], [place] [phone] [facility] Social History Tobacco Use Types Packs/Day [...] relief. DR Anne Robins office phone number [phone] documented in this encounter Plan of Treatment Upcoming Encounters Date Type Department Care Team (Late st Contact Info) Description 03/07/2025 10:00 AM EDT Telemedicine [address] [address] Marline Olivera, PharmD [address] [place] [address] 03/27/2025 9:00 AM EDT Office Visit [address] [address] Naheed Zaman ANP 230 [place] [address] 04/03/2025 3:00 PM EST Office Visit [address] [address] Rut Branham MD 230 [place] [address] documented as of this encounter Visit Diagnoses Not on filedocumented in this encounter Additional Health Concerns Assessment Noted Time PHQ-9 Depression Total Score: 23 11/16/ 024 3:25 PM EDT documented as of this encounter Care Teams Research Environmental Scientist Relationship Specialty Start Date End Date Naheed Zaman ANP 230 [place] [address] PCP - General Family Medicine 01/18/22 Real Gomez MD [address] [place] [address] 3rd [place] [address] Cardiology 10/01/24 Chico Kebede RN 505 [place] [address] Registered Nurse Family Medicine 02/03/25 02/03/25 documented as of this encounter
--- OUTSIDE RECORDS SUMMARY | 2025-02-20 17:40 | XMS_ITS | Encounter Summary ---
Author Organization [employer] [facility] Address [address] [facility] 7t [place] [address] Care Team Providers Care Securities Settlement Processor Name Role Phone Naheed Zaman Primary Care Provider [phone] Real Gomez MD Unavailable Chico Kebede RN Unavailable [phone] Encounter Details Date Type Department Care Team ([facility] Contact Info) Description 07/28/2022 Abstract [facility] ADULT DENTAL 230 [place] [address] Zay Schmidt DDS 230 [place] [address] Social History Tobacco Use Types Packs/Day Years [...] Upcoming Encounters Date Type Department Care Team ([facility] Contact Info) Description 03/07/2025 10:00 AM EDT Telemedicine [facility] MEDICINE 230 [place] [address] Marline Olivera, Mirta 230 [place] [address] 03/27/2025 9:00 AM EDT Office Visit [address] [address] Naheed Zaman ANP [address] [place] [address] 04/03/2025 3:00 PM EST Office Visit [address] [address] Rut Branham MD [address] [place] [address] documented as of this encounter Visit Diagnoses Not on filedocumented in this encounter Care Teams Securities Settlement Processor Relationship Specialty Start Date End Date Naheed Zaman ANP [address] [place] [address] PCP - General Family Medicine 01/18/22 Real Gomez MD [address] [place] [address] 3rd [place] [address] Cardiology 10/01/24 Chico Kebede, APRIL [address] [place] [address] Registered Nurse Family Medicine 02/03/25 02/03/25 documented as of this encounter
--- OUTSIDE RECORDS SUMMARY | 2025-02-20 17:40 | XMS_ITS | Clinical Summary ---
Author Organization [facility] Address [address] [place] [address] Phone Care Team Providers Care Costume Specialist Name Role Phone Naheed Zaman JOSIAH Primary Care Provider [phone] Allergies Active Allergy Reactions Criticality Noted Date [...] Description 02/05/2025 3:00 PM EDT Office Visit [facility] Medical Weight Management [address] [address] Sri Andrade MD Morbid obesity (Primary Dx); [...] Description 02/25/2025 11:00 AM EDT Office Visit [facility] General & GI Surgery [address] [address] Frankie Cobb MD, [address] [address] [email or web address] 06/11/2025 1:30 PM EST Telemedicine [facility] Medical Weight Management [address] [place] [address] Felicity Puentes CNP [address] [place] [address] 10/30/2025 10:40 AM EDT Office Visit [facility] Medical Weight Management [address] [place] [address] Sri Andrade MD [address] [place] [address] [email or web address] Health Maintenance Due Date Last Done [...] topic Medical Devices Not on file Insurance [facility] C3 ACO [facility] C3 ACO [facility] C3 ACO Care Teams Costume Specialist Relationship Specialty Start Date End Date Naheed Zaman ANP [address] [place] [address] PCP - General Nurse Practitioner 01/02/25 Additional Source Comments The information contained in this document represents components of the legal health record. It is not the complete legal health record.[facility]
--- OUTSIDE RECORDS SUMMARY | 2025-02-20 17:40 | XMS_ITS | Encounter Summary ---
Author Organization [employer] Address [address] [facility] 7t [place] [address] Care Team Providers Care Heel Seat Laster Name Role Phone Naheed Zaman Primary Care Provider [phone] Real Gomez MD Unavailable Chico Kebede RN Unavailable Reason for Visit * Reason Onset Date Comments Durable Medical Equipment 10/04/2022 Encounter Details Date Type Department Care Team (Late st Contact Info) Description 10/04/2022 Telephone [facility] MEDICINE 230 [place] [address] Naheed Zaman ANP 230 [place] [address] Durable Medical Equipment Social History Tobacco Use [...] for Compressions socks. Please contact pt at [phone] documented in this encounter Plan of Treatment Upcoming Encounters Date Type Department Care Team (Late st Contact Info) Description 03/07/2025 10:00 AM EDT Telemedicine [address] [address] Marline Olivera PharmD [address] [place] [address] 03/27/2025 9:00 AM EDT Office Visit [address] [address] Naheed Zaman ANP [address] [place] [address] 04/03/2025 3:00 PM EST Office Visit [address] [address] Rut Branham MD [address] [place] [address] documented as of this encounter Visit Diagnoses Not on filedocumented in this encounter Care Teams Heel Seat Laster Relationship Specialty Start Date End Date Naheed Zaman ANP [address] [place] [address] PCP - General Family Medicine 01/18/22 Real Gomez MD [address] [facility] 3rd [place] [address] Cardiology 10/01/24 Chico Kebede, APRIL 505 [place] [address] Registered Nurse Family Medicine 02/03/25 02/03/25 documented as of this encounter
--- OUTSIDE RECORDS SUMMARY | 2025-02-20 17:40 | XMS_ITS | Encounter Summary ---
Author Organization [employer] Address [address] 7t [place] [address] Care Team Providers Care Criminology Professor Name Role Phone Naheed Zaman Primary Care Provider [phone] Real Gomez MD Unavailable Chico Kebede RN Unavailable [phone] Reason for Visit * Reason Comments Med Refill Encounter Details Date Type Department Care Team (Late st Contact Info) Description 01/30/2025 Refill [facility] MEDICINE 230 [place] [address] Rut Branham MD 230 [place] [address] Uncomplicated opioid dependence (CMS/HCC) Social History Tobacco [...] Info) Description 03/07/2025 10:00 AM EDT Telemedicine [facility] MEDICINE [address] [place] [address] Marline Olivera, PharmD [address] [place] [address] 03/27/2025 9:00 AM EDT Office Visit [facility] MEDICINE [address] [place] [address] Naheed Zaman ANP [address] [place] [address] 04/03/2025 3:00 PM EST Office Visit [facility] MEDICINE [address] [place] [address] Rut Branham MD [address] [place] [address] documented as of this encounter Visit Diagnoses Diagnosis Uncomplicated opioid dependence (CMS/HCC) documented in this encounter Additional Health Concerns Assessment Noted Time PHQ-9 Depression Total Score: 7 10/05/19 25 2:06 PM EDT documented as of this encounter Care Teams Criminology Professor Relationship Specialty Start Date End Date Naheed Zaman ANP 230 [place] [address] PCP - General Family Medicine 01/18/22 Real Gomez MD [address] [place] [address] 3rd [place] [address] Cardiology 10/01/24 Chico Kebede RN [address] [place] [address] Registered Nurse Family Medicine 02/03/25 02/03/25 documented as of this encounter
--- OUTSIDE RECORDS SUMMARY | 2025-02-20 17:40 | XMS_ITS | Encounter Summary ---
Author Organization [employer] Address [address] 7t [place] [address] Care Team Providers Care Bomb Technician Name Role Phone Naheed Zaman Primary Care Provider [phone] Real Gomez MD Unavailable Chico Kebede RN Unavailable [phone] Reason for Visit * Reason Onset Date Comments Med Refill 10/30/2024 Encounter Details Date Type Department Care Team (Late st Contact Info) Description 10/30/2024 Refill [facility] MEDICINE 230 [place] [address] Naheed Zaman ANP 230 [place] [address] Chronic low back pain without sciatica, unspecified [...] Info) Description 03/07/2025 10:00 AM EDT Telemedicine [facility] MEDICINE [address] [place] [address] Marline Olivera, PharmD [address] [place] [address] 03/27/2025 9:00 AM EDT Office Visit [facility] MEDICINE [address] [place] [address] Naheed Zaman ANP [address] [place] [address] 04/03/2025 3:00 PM EST Office Visit [facility] MEDICINE [address] [place] [address] Rut Branham MD [address] [place] [address] documented as of this encounter Visit Diagnoses Diagnosis Chronic low back pain without sciatica, unspecified back pain laterality documented in this encounter Additional Health Concerns Assessment Noted Time PHQ-9 Depression Total Score: 7 10/05/19 25 2:06 PM EDT documented as of this encounter Care Teams Bomb Technician Relationship Specialty Start Date End Date Naheed Zaman ANP 230 [place] [address] PCP - General Family Medicine 01/18/22 Real Gomez MD [address] [place] [address] 3rd [place] [address] Cardiology 10/01/24 Chico Kebede, APRIL 505 [place] [address] Registered Nurse Family Medicine 02/03/25 02/03/25 documented as of this encounter
== END 2025-02-20 14:13 | disposition home or self-care (01) ==
LOC: HO.PMC 12:55
PROVIDERS: PCP Nurse Practitioner Primary Care; Visit Provider Anesthesiology
DX: M19.012 Primary osteoarthritis, left shoulder (principal); E66.01 Morbid (severe) obesity due to excess calories; M25.512 Pain in left shoulder
CPT/HCPCS: 99213

== ENCOUNTER → 2025-02-20 12:55 | Outpatient (BNVA) | payer MEDICAID, SELFPAY | PROVIDERS: PCP Nurse Practitioner Primary Care; Visit Provider Anesthesiology | DX: M19.012 Primary osteoarthritis, left shoulder (principal); E66.01 Morbid (severe) obesity due to excess calories; M25.512 Pain in left shoulder | CPT/HCPCS: 99212 ==

== ENCOUNTER 2025-04-02 08:19 | Emergency (ER) | payer MEDICAID, SELFPAY ==
--- NOTE | ~2025-04-02 | XR_ITS ---
EXAMINATION: XR CHEST CLINICAL INFORMATION: Chest pain COMPARISON: September 12, 2024 TECHNIQUE: PA and lateral views FINDINGS: Patient's large body habitus. Poor inspiration. No consolidation, pleural effusion or pneumothorax. Cardiomediastinal silhouette size is normal. Multilevel thoracolumbar spondylosis. Degenerative changes in the shoulders. XR/XR chest 2V IMPRESSION: No acute airspace disease. Electronically signed by: Dionisio Stokes MD 04/02/2025 09:38 AM EST
--- NOTE | 2025-04-02 08:21 | ECG_ITS ---
Test Reason : cp Blood Pressure : */* mmHG Vent. Rate : 108 BPM Atrial Rate : 108 BPM P-R Int : 124 ms QRS Dur : 80 ms QT Int : 318 ms P-R-T Axes : 60 40 6 degrees QTcB Int : 426 ms Sinus tachycardia Nonspecific ST abnormality Abnormal ECG When compared with ECG of 06-Aug-2024 10:03, Nonspecific T wave abnormality, worse in Inferior leads Referred By: Generic ED Physician Electronically Signed By: Garry Li
[2025-04-02 08:26] VITALS: BP 174/89; PULSE 92; RESP 18; TEMP 36.6; O2SAT 100; BMI 64.0
--- NOTE | 2025-04-02 08:45 | ED_ITS ---
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 (all interactions with this patient were facilitated with an [facility] files supervisor (Maria Del Rosario)) Mode of arrival: ambulatory Limitations: language barrier (all interactions with this patient were facilitated with an [facility] files supervisor (Maria Del Rosario)) History of Present Illness ED Provider: Judi Butler PA-C HPI narrative: Patient is a 44 year old assigned male at with a history of HTN, anemia, migraines, chronic pain, DM, HLD, BETSY on CPAP, fibromyalgia, opiate use disorder, MDD, PTSD, and RLS presenting to the emergency department today with right sided neck pain and shortness of breath. Patient states that over the last 2 weeks he has had worsening right sided neck pain that radiates down his entire right side, shortness of breath despite using his CPAP machine for his BETSY, and spastic movements. Patient states that he has had such spastic movements he has thrown water / food. Patient states that is new for him but he is mostly concerned about his pain. Patient denies any other complaints at this time. Patient clarified that he has no thoughts of hurting himself or others, he is just tired of being in pain all the time. Related Data Home Medications ?Medication ?Instructions ?Recorded ?Confirmed insulin lispro 100 unit/mL 35 unit subcut TID 07/26/21 02/13/25 subcutaneous pen (Humalog KwikPen (U-100) Insulin) buprenorphine 8 mg-naloxone 2 mg 1 film sublingual TID 02/09/22 02/13/25 sublingual film (Suboxone) insulin glargine 100 unit/mL (3 55 unit subcut BEDTIME 04/22/24 02/13/25 mL) subcutaneous pen (Lantus Solostar U-100 Insulin) ammonium lactate 12 % lotion topical 06/17/24 02/13/25 ammonium lactate 12 % topical cream appl topical 06/1702/13/25 betamethasone valerate 0.1 % appl topical 06/17/24 topical cream clotrimazole 1 % topical cream appl topical BID 02/13/25 flash glucose sensor (FreeStyle #1 ea 06/17/24 5 Casey 2 Sensor kit) zinc oxide 40 % topical ointment topical 06/17/2401/27 (Diaper Rash) famotidine 20 mg tablet 20 mg PO BEDTIME 08/28/24 fluoxetine 40 mg capsule 60 mg PO DAILY 08/28/2401/27 semaglutide 0.25 mg or 0.5 mg (2 mg subcut 08/28/24 mg/3 mL) subcutaneous pen injector (10secic) Previous Rx's ?Medication ?Instructions ?Recorded meloxicam 15 mg tablet 15 mg PO DAILY 30 days #30 t abs 03/16/22 acetaminophen 500 mg tablet 500 mg PO Q6H PRN pain #20 tabs 06/04/24 (Acetaminophen Extra Strength) lidocaine 5 % topical patch 1 patch topical DAILY PRN pain #15 06/04/24 ea sodium,potassium,mag sulfates 17.5 See Rx Instructions PO .COMPLEX 06/17/24 gram-3.13 gram-1.6 gram oral soln #354 mL (Suprep Bowel Prep Kit) magnesium oxide 400 mg PO DAILY leg cramps 2 01/29/25 months #60 tabs cyclobenzaprine 10 mg tablet 10 mg PO TID muscle spasm 30 days 02/04/25 #90 tabs secukinumab 150 mg/mL subcutaneous 150 mg subcut Q4W # 1 mL 02/04/25 pen injector (Cosentyx Pen) secukinumab 150 mg/mL subcutaneous 150 mg subcut QWEEK #5 mL 02/04/25 pen injector (Cosentyx Pen) cholecalciferol (vitamin D3) 50 50 mcg PO DAILY #90 ca ps 03/25/25 mcg (2,000 unit) capsule pregabalin 100 mg capsule 100 mg PO Q12H #90 caps 02/28 pyridoxine (vitamin B6) 250 mg 250 mg PO DAILY 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 2 03/27/25 tablet months #60 tabs Allergies Allergy/AdvReac Type Severity Reaction Status Date / Time seafood Allergy Severe Swelling Verified 04/02/25 08:31 Review of Systems 2 Constitutional: Constitutional: Reports as per HPI Eyes: Eyes: Reports as per HPI ENT: Reports as per HPI Cardiovascular: Cardiovascular: Reports as per HPI Respiratory: Respiratory: Reports as per HPI Gastrointestinal: Gastrointestinal: Reports as per HPI Genitourinary: Genitourinary: Reports as per HPI Musculoskeletal: Musculoskeletal: Reports as per HPI Integumentary/Breasts: Skin/Breast: Reports as per HPI Neurologic: Reports as per HPI Psychiatric: Psychiatric: Reports as per HPI Endocrine: Endocrine: Reports as per HPI Hematologic/Lymphatic: Hematologic/Lymphatic: Reports as per HPI Allergic/Immunologic: Allergic/Immunologic: Reports as per HPI [facility] Past Medical History Attestation statement: The following information was validated with the patient. Source: old records reviewed and nursing notes reviewed Medical History Seronegative spondyloarthropathy Vitamin D deficiency Elevated C-reactive protein (CRP) Fibromyalgia Polyarthralgia Narcotic dependence Thrombocytopenia Carpal tunnel syndrome Sleep apnea Pre-op evaluation Hx of migraines BETSY on CPAP Pre-op evaluation HTN (hypertension), benign Insulin dependent type 1 diabetes mellitus Morbid obesity Shoulder dislocation Diabetes Surgical History Hx of colonoscopy History of esophagogastroduodenoscopy (EGD) Hx of hernia repair Hx of appendectomy Family History Family History Mother No problems noted. Brother No problems noted. Daughter No problems noted. Daughter No problems noted. Daughter No problems noted. Son No problems noted. Son No problems noted. 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 Physical Exam ED Vital Signs: Vital Signs - 24 hr 04/02/25 08:26 04/02/25 09:01 Temperature 98 F Pulse Rate 92 90 Respiratory Rate 18 18 Blood Pressure 174/89 H 147/77 H Pulse Oximetry 100 98 Oxygen Delivery Method Room Air Room Air BMI result Body Mass Index 64.0 Const General: cooperative, no acute distress, alert and awake Nutritional Appearance: obese Orientation/consciousness: patient oriented x3 HENMT Head: Yes normal to inspection and Yes atraumatic Ears: hearing grossly normal bilaterally and external ears normal General nose exam: Normal external nose present, no nasal discharge noted and no epistaxis Face and sinus: Yes normal facial exam, No abrasion and No laceration Mouth: Normal oral and palatal mucosa present, no drooling and no muffled voice Eyes General: appearance normal, both eyes and all related structures Periorbital: periorbital findings normal Eyelids: Yes eyelids normal Conjunctivae: conjunctivae normal Pupils: Equal, round and reactive pupils present EOM: EOMs intact bilaterally Neck Neck: Yes normal visual inspection and Yes full ROM Resp Effort & Inspection: normal respiratory effort and able to speak in complete sentences Neuro General: patient oriented x3, moves all extremities and CN's II-XI intact bilaterally Cranial nerves: Yes Equal, round and reactive pupils present Cognition (Neuro): normal cognition Extrem General: Yes normal to inspection, Yes full ROM and Yes capillary refill normal Psych Appearance: grossly normal Mental Status: mental status grossly normal Affect: normal affect Attitude: cooperative Thought process: Normal thought process present Thought content: Normal thought content present Insight: Good insight present (Psych) Medications Administered Generic Name Dose Route Start Last Admin Trade Name Freq PRN Reason Stop Dose Admin Sodium Chloride 1,000 mls @ 999 mls/hr 04/02/25 10:30 04/02/25 10:42 Ns IV 04/02/25 11:30 999 mls/hr .Q1H1M GILDARDO Administration Discontinued Medications Generic Name Dose Route Start Last Admin Trade Name Freq PRN Reason Stop Dose Admin Sodium Chloride 1,000 mls @ 999 mls/hr 04/02/25 10:00 04/02/25 10:05 Ns IV 04/02/25 11:00 999 mls/hr .Q1H1M GILDARDO Administration Ketorolac Tromethamine 15 mg 04/02/25 09:04 04/02/25 09:39 Ketorolac Tromethamine 15 Mg/Ml Vial IVPUSH 04/02/25 09:05 15 mg ONCE ONE Administration Morphine Sulfate 4 mg 04/02/25 09:04 04/02/25 09:39 Morphine Sulfate 4 Mg/Ml Cartridge IVPUSH 04/02/25 09:05 4 mg ONCE ONE Administration Protocol Ondansetron HCl 4 mg 04/02/25 09:04 04/02/25 09:39 Ondansetron Hcl 4 Mg/2 Ml Vial IVPUSH 04/02/25 09:05 4 mg ONCE ONE Administration Medical Decision Making Medical Decision Making [facility] Narrative: Patient is a 44 year old assigned male at with a history of HTN, anemia, migraines, chronic pain, DM, HLD, BETSY on CPAP, fibromyalgia, opiate use disorder, MDD, PTSD, and RLS presenting to the emergency department today with right sided neck pain, shortness of breath, and intermittent spasms of the hands. Patient's physical exam was as noted in the physical exam portion of this note. I did not appreciate these spasms on my examination. Patient's blood work showed a mild anemia with a hgb of 11.6. Patient's CR was slightly elevated at 1.86 with a bun of 30. Patient's EKG showed sinus tachycardia but when I examined the patient - he was not tachycardic. Patient's chest x-ray showed no acute process. Patient received IV fluids, morphine, toradol, and zofran which, upon re- evaluation, he stated it helped his symptoms some. I explained my physical exam findings as well as all test results to the patient. I answered all questions asked by the patient. I explained to the patient that his right sided pain is likely secondary to his existing chronic pain. I recommended the patient follow up with the neurology team for these involuntary hand spasms. I spoke with the patient about his elevated CR + BUN and that we hydrated him with 2 liters of fluid. I explained to the patient that he needs to continue to orally hydrate and have these labs repeated by his primary care provider. I stressed the importance of the patient taking his medication as directed (either prescribed or as the over the counter packaging recommends). I stressed the importance of the patient following up with his primary care provider, pain specialist, and neurology team. I stressed the importance of the patient returning to the emergency department immediately if his symptoms were to worsen or if he were to develop any dizziness, shortness of breath, difficulty breathing, chest pain, blurry vision, loss of vision, nausea, vomiting, abdominal pain, fever, chills, back pain, or any other complaints. Patient verbalized agreement and understanding with this treatment plan and discharge. Differential Diagnosis Differential Diagnoses: The differential diagnosis associated with the presentation includes Acute on chronic pain Shortness of breath NSTEMI STEMI Dehydration Admission/Observation Consideration of admission/observation: Escalation of care including admission/observation considered Patient would have been admitted to the hospital had his work up had any findings where hospital admission was appropriate and his clinical presentation warranted hospital admission. Lab Data [facility] Lab Attestation statement: I reviewed the patient's lab results. My interpretation of these results are in the [facility] Rationale portion of this note. 04/02/25 09:29 04/02/25 09:29 Labs: Lab Results 04/02/25 Range/Units 09:29 WBC 4.7 L (4.8-10.8) X10*3/uL RBC 3.99 L (4.60-5.80) X10*6/uL Hgb 11.6 L (14.0-18.0) g/dl Hct 34.8 L (42.0-52.0) % MCV 87.2 (80.0-98.0) fL MCH 29.1 (27.0-33.0) pg MCHC 33.3 (31.0-36.0) g/dl RDW 12.0 (11.0-16.0) % Plt Count 108 L (160-400) X10*3/uL MPV 12.3 (9.4-12.4) fL Immature Gran % (Auto) 0.2 (0.0-0.4) % Neut % (Auto) 59.6 (45-73) % Lymph % (Auto) 30.8 (20-40) % [place] % (Auto) 5.8 (2-11) % Eos % (Auto) 3.4 (0-4) % Baso % (Auto) 0.2 (0-2) % Lymph # (Auto) 1.4 (1.2-4.9) X10*3/uL [place] # (Auto) 0.3 (0.1-1.2) X10*3/uL Eos # (Auto) 0.2 (0.0-0.4) X10*3/uL Baso # (Auto) 0.0 (0.0-0.2) X10*3/uL Abs Immat Gran (auto) 0.01 (0.00-0.03) X10*3/uL Absolute Neuts (auto) 2.8 (2.0-8.3) x10*3/uL Absolute Nucleated RBC 0.000 (0.0-0.012) X10*3/uL Nucleated RBC % (auto) 0.0 (0.0-0.2) /100WBC Sodium 140 (135-145) mmol/L Potassium 4.2 (3.3-5.1) mmol/L Chloride 105 (96-108) mmol/L Carbon Dioxide 29 (22-29) mmol/L Anion Gap 10 L (12-20) BUN 30 H (9-16) mg/dL Creatinine 1.86 H (0.5-1.4) mg/dL Estim Creat Clear Calc 77.2 Estimated GFR 40 Random Glucose 124 H (60-115) mg/dL Calcium 9.4 (8.4-10.2) mg/dL Magnesium 1.5 L (1.6-2.6) mg/dL Total Bilirubin 0.5 (0.0-1.0) mg/dL AST 28 (5-37) U/L ALT 31 (0-40) U/L Alkaline Phosphatase 65 (39-117) U/L Troponin I High Sens < 2.7 (<3.5-35.0) ng/L NT-Pro-B Natriuret Pep 57.3 (<300) pg/mL Total Protein 7.4 (6.5-8.0) g/dL Albumin 3.9 (3.5-5.0) g/dL Independent Interpretation I performed an independent interpretation of an: EKG and Plain X-Ray Interpretation: My interpretation is in agreement with the radiologist's impression of this imaging study. L Reason for Exam: Chest pain EXAMINATION: XR CHEST CLINICAL INFORMATION: Chest pain COMPARISON: September 12, 2024 TECHNIQUE: PA and lateral views FINDINGS: Patient's large body habitus. Poor inspiration. No consolidation, pleural effusion or pneumothorax. Cardiomediastinal silhouette size is normal. Multilevel thoracolumbar spondylosis. Degenerative changes in the shoulders. XR/XR chest 2V IMPRESSION: No acute airspace disease. Electronically signed by: Dionisio Stokes MD 04/02/2025 09:38 AM EST Dictated By: Dionisio Okeefe MD Signed By: Electronically signed by Dionisio Hill MD 04/02/25 0938 I independently interpreted this EKG and am in agreement with the below findings: Vent. Rate: 108 BPM Atrial Rate: 108 BPM P-R Int: 124 ms QRS Dur: 80 ms QT Int: 318 ms P-R-T Axes: 60 40 6 degrees QTcB Int: 426 ms Sinus tachycardia When compared with ECG of 06-Aug-2024 10:03, Nonspecific T wave abnormality, worse in Inferior leads DD/ 0821 Critical Care Time Critical Care Time Critical Care Time: Yes Total Critical Care Time: 36 Attestation: I spent 36 minutes of Critical Care Time with this patient. This does not include time spent on separately reported billable procedures. Discharge Plan Discharge Clinical Impression: Dehydration, Nerve pain Patient Disposition: Home, Self-Care Instructions: Dehydration (DC), Paresthesia (ED) Additional Instructions: Your work up today showed no emergent process with your heart or lungs. Your pain is likely coming from your back and you should follow up with your pain specialist about this. The new spasms you have developed where you throw liquid / foods - should be followed up on by a neurologist. Las pruebas realizadas hoy no peterson revelado helena?n proceso urgente en el coraz?n ni en los pulmones. Es probable que el dolor provenga de la espalda, por lo que deber?a consultar con choi especialista en dolor al respecto. Los nuevos espasmos que arredondo desarrollado y que le provocan v?mitos de l?quidos o alimentos deben ser evaluados por un neur?logo. IF you are prescribed home medications and/or you are taking over the counter medications at home- it is very important you continue to do so as prescribed / directed unless told otherwise. SI le recetan medicamentos y/o est? tomando medicamentos de venta casey, es muy importante que contin?e haci?ndolo seg?n lo recetado/indicado a menos que le indiquen lo contrario. Follow up with your primary care provider. Return to the emergency department immediately if your symptoms worsen or if you develop any dizziness, shortness of breath, difficulty breathing, chest pain, blurry vision, loss of vision, nausea, vomiting, abdominal pain, fever, chills, back pain, or any other complaints. Tavarse?seguimiento?con choi m?dico de atenci?n primaria. Acuda inmediatamente al servicio de urgencias si norma s?ntomas empeoran o si presenta falta de aliento, dificultad para respirar, dolor tor?cico, mareos, aturdimiento, dolor de espalda, dolor abdominal, fiebre, escalofr?os o cualquier otro s?ntoma. Please see the information below about our Patient Portal. If you are not yet enrolled in the [facility] Patient Portal, you will receive an enrollment email invitation following your visit to any [facility] care setting. You may also self-enroll in the Patient Portal by visiting our website: [email or web address] The following information is required to access the Patient Portal: - Your [facility] Medical Record Number - Your personal home email address (must match what is in your electronic medical record, Registration staff can assist with this) - Name - Date of Capabilities of the Patient Portal: - Message some providers - View upcoming appointments - Access your health summary, medical history, and visit history - View current conditions and allergies - View procedure and lab results - View your medications, including guidelines, side effects, and precautions - Complete pre-appointment questionnaires requested by your provider - Ready summary reports of your office visits and procedures To access the Patient Portal Mobile Mary, follow these directions: - Search [employer] in the Mary Store or Conferize Store - Download the Mary - Search for [facility] - Enter your login/password Portal del paciente Si usted no esta inscrito en el portal de pacientes de [facility], recibira jad invitacion de inscripcion despues de choi visita al [facility] o al [facility] via correo electronico. Tambien puede inscribirse voluntariamente en el portal de pacientes visitando nuestra pagina web: [email or web address] La siguiente informacion sera requerida para acceder al portal: - Choi shaun de historia medica de [facility] - Choi direccion de correo electronico personal - Nombre - Fecha de nacimiento Capacidades: Las siguientes capacidades estan disponibles en el portal de pacientes: - Enviar mensajes a algunos doctores - Verificar proximas citas - Acceso a choi historial de joe, registro medico e historial de visitas - Talita las condiciones actuales y alergias talita procedimientos y resultados del laboratorio - Talita norma medicamentos, incluyendo las pautas - Efectos secundarios y precauciones - Completar o llenar formularios / cuestionarios de - Citas solicitadas por choi doctor - Leer los resumenes de reportes medicos de norma visitas y procedimientos Mathews acceder a la aplicacion movil: - Busque [employer] en la Mary Store o Conferize Store - Descargue la aplicacion - [employer] - Ingrese choi nombre de usuario / Contrasena Prescriptions: No Action meloxicam 15 mg tablet 15 mg PO DAILY 30 Days Qty: 30 0RF cholecalciferol (vitamin D3) 50 mcg (2,000 unit) capsule 50 mcg PO DAILY Qty: 90 1RF pregabalin 100 mg capsule 100 mg PO Q12H Qty: 90 1RF pyridoxine (vitamin B6) 250 mg tablet 250 mg PO DAILY MDD 250mg 60 Days Qty: 60 1RF Rx Instructions: take one tablet daily at night lidocaine 5 % adhesive patch,medicated 1 patch topical DAILY PRN (Reason: pain) Qty: 15 0RF Rx Instructions: leave on most painful area for up to 12 hrs acetaminophen [Acetaminophen Extra Strength] 500 mg tablet 500 mg PO Q6H PRN (Reason: pain) Qty: 20 0RF buprenorphine-naloxone [Suboxone] 8-2 mg film 1 film sublingual TID insulin lispro [Humalog KwikPen Insulin] 100 unit/mL insulin pen 35 unit subcut TID Ozempic 0.25 mg or 0.5 mg (2 mg/3 mL) pen injector subcut famotidine 20 mg tablet 20 mg PO BEDTIME cyclobenzaprine 10 mg tablet 10 mg PO TID 30 Days Qty: 90 5RF Cosentyx Pen 150 mg/mL pen injector 150 mg subcut QWEEK Qty: 5 0RF Rx Instructions: Loading dose: 150 mg at weeks 0, 1, 2, 3, and 4 Cosentyx Pen 150 mg/mL pen injector 150 mg subcut Q4W Qty: 1 5RF Rx Instructions: maintenance dose after loading dose magnesium oxide 400 mg magnesium tablet 400 mg PO DAILY MDD 400mg 60 Days Qty: 60 1RF Rx Instructions: take on tablet daily at bedtime may hold for loose stools. insulin glargine [Lantus Solostar U-100 Insulin] 100 unit/mL (3 mL) insulin pen 55 unit subcut BEDTIME (DME) FreeStyle Casey 2 Sensor Kit See Rx Instructions .ROUTE Q2W Qty: 1 Rx Instructions: As directed betamethasone valerate 0.1 % cream topical ammonium lactate 12 % lotion topical zinc oxide [Diaper Rash] 40 % ointment topical clotrimazole 1 % cream topical BID ammonium lactate 12 % cream topical sodium,potassium,mag sulfates [Suprep Bowel Prep Kit] 17.5-3.13-1.6 gram recon soln See Rx Instructions PO .COMPLEX Qty: 354 0RF Rx Instructions: DILUTE as per instructions given fluoxetine 40 mg capsule 60 mg PO DAILY Referrals: [facility] Neuro/Sleep [Provider Group] Referral Note: Call to establish and follow up with a neurologist for your reported involuntary spasms. Llame para concertar jad jama con un neurologo y realizar un seguimiento de los espasmos involuntarios que arredondo descrito. Naheed Zaman TEA LEAF READER [Primary Care Provider, Internal Medicine] Print Language: Lithuanian
--- OUTSIDE RECORDS SUMMARY | 2025-04-02 08:59 | XMS_ITS | Encounter Summary ---
Author Organization [employer] Address [address] [place] [address] Care Team Providers Care Office Helper Clerical Name Role Phone Naheed Zaman Primary Care Provider [phone] Real Gomez MD Unavailable Chico Kebede RN Unavailable [phone] Reason for Visit * Reason Comments Med Refill Encounter Details Date Type Department Care Team (Late st Contact Info) Description 08/18/2023 Refill [facility] MED[facility] [address] [place] [address] Naheed Zaman ANP [address] [place] [address] Chronic low back pain without sciatica, unspecified [...] Care Team (Late st Contact Info) Description 04/03/2025 3:00 PM EST Office Visit [address] [address] Rut Branham MD [address] [place] [id number] 04/29/2025 1:00 PM EST Telemedicine [address] [address] Billy Brooke, PharmD [address] [place] [phone] 06/26/2025 3:00 PM EST Office Visit [address] [address] Rut Branham MD [address] [place] [id number] 06/27/2025 11:15 AM EST Office Visit [address] [address] Naheed Zaman ANP [address] [place] [id number] documented as of this encounter Visit Diagnoses Diagnosis Chronic low back pain without sciatica, unspecified back pain laterality documented in this encounter Additional Health Concerns Assessment Noted Time PHQ-9 Depression Total Score: 6 11/19/19 23 3:29 PM EDT documented as of this encounter Care Teams Office Helper Clerical Relationship Specialty Start Date End Date Naheed Zaman ANP [address] [place] [address] PCP - General Family Medicine 01/18/22 Real Gomez MD [address] [place] [address] [address] [place] [address] Cardiology 10/01/24 Chico Kebede, APRIL [address] [place] [address] Registered Nurse Family Medicine 02/03/25 02/03/25 Kalpesh Calles Customer Orders ClerkByproducts Operator 02/21/25 documented as of this encounter
--- OUTSIDE RECORDS SUMMARY | 2025-04-02 08:59 | XMS_ITS | Encounter Summary ---
Author Organization [employer] Address [address] 7t [place] [address] Care Team Providers Care Sheet Metal Installer Name Role Phone Naheed Zaman Primary Care Provider [phone] Real Gomez MD Unavailable Chico Kebede RN Unavailable [phone] Reason for Visit * Reason Comments Med Refill Encounter Details Date Type Department Care Team (Late st Contact Info) Description 09/26/2024 Refill [facility] [address] [place] [address] Desirae Cowan MD 230 [place] [address] Social History Tobacco Use Types Packs/Day Years [...] Description 04/03/2025 3:00 PM EST Office Visit [address] [address] Rut Branham MD [address] [place] [address] 04/29/2025 1:00 PM EST Telemedicine [address] [address] Billy Brooke, PharmD [address] [place] [address] 06/26/2025 3:00 PM EST Office Visit [address] [address] Rut Branham MD [address] [place] [address] 06/27/2025 11:15 AM EST Office Visit [address] [address] Naheed Zaman ANP 230 [place] [address] documented as of this encounter Visit Diagnoses Not on filedocumented in this encounter Additional Health Concerns Assessment Noted Time PHQ-9 Depression Total Score: 25 024 8:12 AM EDT documented as of this encounter Care Teams Sheet Metal Installer Relationship Specialty Start Date End Date Naheed Zaman ANP 230 [place] [address] PCP - General Family Medicine 01/18/22 Real Gomez MD [address] [place] [address] 3rd [place] [address] Cardiology 10/01/24 Chico Kebede, APRIL 505 [place] [address] Registered Nurse Family Medicine 02/03/25 02/03/25 Kalpesh Calles Grade SetterBelly Packer 02/21/25 documented as of this encounter
--- OUTSIDE RECORDS SUMMARY | 2025-04-02 08:59 | XMS_ITS | Encounter Summary ---
Author Organization [email or web address] [facility] Address [address] [place] [address] 7t [place] [address] Care Team Providers Care Critical Care Unit Nurse Name Role Phone Naheed Zaman Primary Care Provider [phone] Real Gomez MD Unavailable Chico Kebede RN Unavailable [phone] Encounter Details Date Type Department Care Team (Latest Contact Info) Description 12/29/2021 Abstract [facility] CONVERSIONS Dental, Provider, DDS Social History [...] Description 04/03/2025 3:00 PM EST Office Visit [facility] [address] [place] [address] Rut Branham MD [address] [place] [address] 04/29/2025 1:00 PM EST Telemedicine [facility] [address] [place] [address] Billy Brooke, PharmD [address] [place] [address] 06/26/2025 3:00 PM EST Office Visit [address] [address] Rut Branham MD 230 [place], [place] [phone] 06/27/2025 11:15 AM EST Office Visit [address] [address] Naheed Zaman ANP 230 [place] [address] documented as of this encounter Visit Diagnoses Not on filedocumented in this encounter Care Teams Critical Care Unit Nurse Relationship Specialty Start Date End Date Naheed Zaman ANP 230 [place] [address] PCP - General Family Medicine 01/18/22 Real Gomez MD [address] [place] [address] 3rd [place] [address] Cardiology 10/01/24 Chico Kebede, APRIL 505 [place] [address] Registered Nurse Family Medicine 02/03/25 02/03/25 Kalpesh Calles Coordinate Measuring Machine TechnicianPoultry Farm Worker 02/21/25 documented as of this encounter
[2025-04-02 09:01] VITALS: BP 147/77; PULSE 90; RESP 18; O2SAT 98
--- OUTSIDE RECORDS SUMMARY | 2025-04-02 09:01 | XMS_ITS | Encounter Summary ---
Author Organization [employer] Address [address] 7t [place] [address] Care Team Providers Care Bark Tanner Name Role Phone Naheed Zaman Primary Care Provider [phone] Real Gomez MD Unavailable Chico Kebede RN Unavailable [phone] Reason for Visit * Reason Onset Date Comments Med Refill 11/20/2024 Encounter Details Date Type Department Care Team (Late st Contact Info) Description 11/20/2024 Refill [facility] 230 [place] [address] Rut Branham MD 230 [place] [address] Uncomplicated opioid dependence (CMS/HCC) Social History Tobacco [...] Description 04/03/2025 3:00 PM EST Office Visit [facility] [address] [place] [address] Rut Branham MD [address] [place] [address] 04/29/2025 1:00 PM EST Telemedicine [facility] [address] [place] [address] Billy Brooke, PharmD [address] [place] [address] 06/26/2025 3:00 PM EST Office Visit [facility] [address] [place] [address] Rut Branham MD [address] [place] [address] 06/27/2025 11:15 AM EST Office Visit [facility] 230 [place], [place] [phone] Naheed Zaman ANP 230 [place] [address] documented as of this encounter Visit Diagnoses Diagnosis Uncomplicated opioid dependence (CMS/HCC) (HCC) documented in this encounter Additional Health Concerns Assessment Noted Time PHQ-9 Depression Total Score: 7 10/05/19 25 2:06 PM EDT documented as of this encounter Care Teams Bark Tanner Relationship Specialty Start Date End Date Naheed Zaman ANP 230 [place], [place] [phone] PCP - General Family Medicine 01/18/22 Real Gomez MD [address] [place] [address] 3rd [place] [address] Cardiology 10/01/24 Chico Kebede, APRIL 505 [place] [address] Registered Nurse Family Medicine 02/03/25 02/03/25 Kalpesh Calles Talent Acquisition SourcerOutdoor Emergency Care Technician 02/21/25 documented as of this encounter
--- OUTSIDE RECORDS SUMMARY | 2025-04-02 09:01 | XMS_ITS | Clinical Summary ---
Author Organization [facility] Address [address] [place] [address] Phone Care Team Providers Care Data Warehousing Engineer Name Role Phone Naheed Zaman NP Primary Care Provider [phone] Allergies Active Allergy Reactions Criticality Noted Date [...] obesity with BMI of 6 0.0-69.9, adult ([facility] V24, [facility] V28) 04/17/2024 Acquired pes planus 05/11/2017 Pure hypercholesterolemia 05/10/2017 Pulmonary hypertension ([facility] V24, [facility] V28 ) 05/10/2017 [...] (diabetes mellitus), type 2 with renal complications ([facility] V24, [facility] V28) 04/30/2017 Spondylosis of lumbar region without myelopathy or radiculopathy 04/26/2017 Overview (04/17/2024): Saw [facility] Rheumatology BETSY (obstructive sleep apnea) 04/26/2017 Overview (04/17/2024): Polysomnography 08/05/2009, [facility] :On cpap 14 cm H2O 10/23/2017 Home Sleep Study insufficient data. 08/2018 - Pulm ordered split night study. Diabetes mellitus type 2 wit h neurological manifestations ([facility] V24, [facility] V28) 04/26/2017 CTS (carpal tunnel syndrome) 04/26/2017 Immunizations Immunization Administration Dates Next Due Influenza trivalent, 0.5mL, [...] (diabetes mellitus), type 2 with renal complications ([facility] V24, [facility] V28) 04/30/2017 DX:DM (diabetes mellitus), t ype 2 with renal complications (HCC) Proteinuria 04/30/2017 DX:Proteinuria Diabetes mellitus type 2 wit h neurological manifestations ([facility] V24, [facility] V28) 04/26/2017 DX:Diabetes mellitus type 2 with neurological manifestations (HCC) Asthma 05/10/2017 DX:Asthma Elevated liver enzymes 05/10/2017 DX:Elevat ed liver enzymes; COMMENT: fatty liver Gout 05/10/2017 DX:Gout H. pylori infection 05/10/2017 DX:H. 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 DX:History of acute post-streptococcal glomerulonephritis; COMMENT: Hospitalized [facility] with anasarca/ KUNAL 2010, streptolysin titer 1060, kidney bx, Followed in past by Dr Zapata, NSAIDS not recommended HTN (hypertension) 05/10/2017 DX:HTN (hyper tension) Morbid obesity with BMI of 6 0.0-69.9, adult ([facility] V24, [facility] V28) 04/26/2017 DX:Morbid obesity wit h BMI of 60.0-69.9, adult ([facility]) BETSY (obstructive sleep apnea) 04/26/2017 DX :BETSY (obstructive sleep apnea); COMMENT: Polysomnography 08/05/2009, [facility] :On cpap 14 cm H2O Pulmonary hypertension ([facility] V24, [facility] V28) 05/10/2017 DX:Pulmonary hypertension (H CC); COMMENT: Mild, ECHO 10/21/10 [facility], EF 65-70% Otherwise normal altho suboptimal views, [...] egion without myelopathy or radiculopathy; COMMENT: Saw [facility] Rheumatology Family History Medical History Relation Name [...] Years) (1 of 2 - PCV) 2000 HPV Vaccines (1 - 3-dose SCD M series) 2008 Social Influencers of Health Screening 05/01/2022 Diabetes: [...] [facility] Urine Albumin Creatinine Ratio Abstracted Result [facility] Provider HEALTH MAINTENANCE Final Result * Annual BMP Blood Test (02/27/2020) Pathologist [facility] Annual BMP Blood Test Abstracted Result [facility] Provider HEALTH MAINTENANCE Final Result * (ABNORMAL) Hemoglobin A1c (02/27/2020) Pathologist [facility] Hemoglobin A1C 6.9(A) <=6.5 % Blood Venous blood specimen / Unknown Result [facility] Provider LAB BLOOD ORDERABLES Brunilda l Result * Lipid panel (02/27/2020) Pathologist [facility] [...] Maintenance Insurance MEDICAID - [place] Care Teams Data Warehousing Engineer Relationship Specialty Start Date End Date Naheed Zaman NP [address] [place] [phone] PCP - General 02/21/24
--- OUTSIDE RECORDS SUMMARY | 2025-04-02 09:01 | XMS_ITS | Encounter Summary ---
Author Organization [employer] Address [address] 7t [place] [address] Care Team Providers Care French Tutor Name Role Phone Naheed Zaman Primary Care Provider [phone] Real Gomez MD Unavailable Chico Kebede RN Unavailable [phone] Reason for Visit * Reason Comments Med Refill Encounter Details Date Type Department Care Team (Late st Contact Info) Description 09/14/2023 Refill [facility] 230 [place] [address] Dayna Cardenas MD 230 [place] [address] Uncomplicated opioid dependence (CMS/HCC) Social History Tobacco [...] Description 04/03/2025 3:00 PM EST Office Visit [facility] [address] [place] [address] Rut Branham MD [address] [place] [address] 04/29/2025 1:00 PM EST Telemedicine [address] [address] Billy Brooke, PharmD [address] [place] [address] 06/26/2025 3:00 PM EST Office Visit [address] [address] Rut Branham MD [address] [place] [address] 06/27/2025 11:15 AM EST Office Visit [address] [address] Naheed Zaman ANP [address] [place] [address] documented as of this encounter Visit Diagnoses Diagnosis Uncomplicated opioid dependence (CMS/HCC) (HCC) documented in this encounter Additional Health Concerns Assessment Noted Time PHQ-9 Depression Total Score: 6 11/19/19 23 3:29 PM EDT documented as of this encounter Care Teams French Tutor Relationship Specialty Start Date End Date Naheed Zaman ANP 230 [place] [address] PCP - General Family Medicine 01/18/22 Real Gomez MD [address] [facility] 3rd [place] [address] Cardiology 10/01/24 Chico Kebede, APRIL 505 [place] [address] Registered Nurse Family Medicine 02/03/25 02/03/25 Kalpesh Calles Supermarket ManagerHadoop Admin 02/21/25 documented as of this encounter
--- OUTSIDE RECORDS SUMMARY | 2025-04-02 09:01 | XMS_ITS | Encounter Summary ---
Author Organization [employer] [facility] Address [address] [place] [address] 7t [place] [address] Care Team Providers Care Hammer Adjuster Name Role Phone Naheed Zaman Primary Care Provider [phone] Real Gomez MD Unavailable Chico Kebede RN Unavailable [phone] Reason for Visit * Reason Comments Med Refill Encounter Details Date Type Department Care Team (Late Contact Info) Description 02/02/2023 Refill [facility] 230 [place] [address] Rut Branham MD 230 [place], [place] [phone] Uncomplicated opioid dependence (CMS/HCC) Social History Tobacco [...] Department Care Team (Late Contact Info) Description 04/03/2025 3:00 PM EST Office Visit [facility] 230 [place] [address] Rut Branham MD 230 [place] [address] 04/29/2025 1:00 PM EST Telemedicine [address] [address] Billy Brooke, PharmD [address] [place] [address] 06/26/2025 3:00 PM EST Office Visit [address] [address] Rut Branham MD [address] [place] [address] 06/27/2025 11:15 AM EST Office Visit [address] [address] Naheed Zaman ANP [address] [place] [address] documented as of this encounter Visit Diagnoses Diagnosis Uncomplicated opioid dependence (CMS/HCC) (HCC) documented in this encounter Additional Health Concerns Assessment Noted Time PHQ-9 Depression Total Score: 6 11/19/19 23 3:29 PM EDT documented as of this encounter Care Teams Hammer Adjuster Relationship Specialty Start Date End Date Naheed Zaman ANP [address] [place] [address] PCP - General Family Medicine 01/18/22 Real Gomez MD [address] 3rd [place] [address] Cardiology 10/01/24 Chico Kebede RN [address] [place] [address] Registered Nurse Family Medicine 02/03/25 02/03/25 Kalpesh Calles Sack FillerWord Processing Supervisor 02/21/25 documented as of this encounter
--- OUTSIDE RECORDS SUMMARY | 2025-04-02 09:02 | XMS_ITS | Encounter Summary ---
Author Organization [employer] Address [address] 7t [place] [address] Care Team Providers Care Import/Export Agent Name Role Phone Naheed Zaman Primary Care Provider [phone] Real Gomez MD Unavailable Chico Kebede RN Unavailable [phone] Reason for Visit * Reason Onset Date Comments Med Refill 10/30/2024 Encounter Details Date Type Department Care Team (Late st Contact Info) Description 10/30/2024 Refill [facility] 230 [place] [address] Naheed Zaman ANP 230 [place] [address] Chronic low back pain without sciatica, unspecified [...] EST Office Visit [facility] [address] [place] [address] Rut Branham MD [address] [place] [address] 04/29/2025 1:00 PM EST Telemedicine [facility] [address] [place] [address] Billy Brooke, PharmD [address] [place] [address] 06/26/2025 3:00 PM EST Office Visit [facility] [address] [place] [address] Rut Branham MD [address] [place] [address] 06/27/2025 11:15 AM EST Office Visit [facility] 230 [place] [address] Naheed Zaman ANP 230 [place] [address] documented as of this encounter Visit Diagnoses Diagnosis Chronic low back pain without sciatica, unspecified back pain laterality documented in this encounter Additional Health Concerns Assessment Noted Time PHQ-9 Depression Total Score: 7 10/05/19 25 2:06 PM EDT documented as of this encounter Care Teams Import/Export Agent Relationship Specialty Start Date End Date Naheed Zaman ANP 230 [place], [place] [phone] PCP - General Family Medicine 01/18/22 Real Gomez MD [address] [place] [address] Drive 3rd [place] [address] Cardiology 10/01/24 Chico Kebede, APRIL 505 [place] [address] Registered Nurse Family Medicine 02/03/25 02/03/25 Kalpesh Calles Ground Source Heat Pump TechnicianEmergency Vehicle Operator 02/21/25 documented as of this encounter
--- OUTSIDE RECORDS SUMMARY | 2025-04-02 09:02 | XMS_ITS | Encounter Summary ---
Author Organization [employer] Address [address] [facility] [address] [facility] [address] 7t [place] [address] Care Team Providers Care Pecan Sheller Name Role Phone Naheed Zaman Primary Care Provider [phone] Real Gomez MD Unavailable Chico Kebdee RN Unavailable [phone] Reason for Visit * Reason Onset Date Comments [facility] 12/12/2023 Encounter Details Date Type Department Care Team ([facility] st Contact Info) Description 12/12/2023 Telephone [facility] 230 [place], [place] [phone] Zay Schmidt DDS 230 [place], [place] [phone] [facility] Social History Tobacco Use [...] relief. DR Anne Robins office phone number [phone] documented in this encounter Plan of Treatment Upcoming Encounters Date Type Department Care Team (Late st Contact Info) Description 04/03/2025 3:00 PM EST Office Visit [address] [address] Rut Branham MD [address] [place] [address] 04/29/2025 1:00 PM EST Telemedicine [address] [address] Billy Brooke, PharmD [address] [place] [address] 06/26/2025 3:00 PM EST Office Visit [address] [address] Rut Branham MD 230 [place] [address] 06/27/2025 11:15 AM EST Office Visit [facility] [address] [place] [address] Naheed Zaman ANP 230 [place] [address] documented as of this encounter Visit Diagnoses Not on filedocumented in this encounter Additional Health Concerns Assessment Noted Time PHQ-9 Depression Total Score: 024 3:25 PM EDT documented as of this encounter Care Teams Pecan Sheller Relationship Specialty Start Date End Date Naheed Zaman ANP [address] [place] [address] PCP - General Family Medicine 01/18/22 Real Gomez MD [address] [place] [address] 3rd [place] [address] Cardiology 10/01/24 Chico Kebede, APRIL 505 [place] [address] Registered Nurse Family Medicine 02/03/25 02/03/25 Kalpesh Calles Home Health LvnEyeglass Frames Polisher 02/21/25 documented as of this encounter
--- OUTSIDE RECORDS SUMMARY | 2025-04-02 09:02 | XMS_ITS | Encounter Summary ---
Author Organization [employer] Address [address] 7t [place] [address] Care Team Providers Care Talent Acquisition Sourcer Name Role Phone Naheed Zaman Primary Care Provider [phone] Real Gomez MD Unavailable Chico Kebede RN Unavailable [phone] Reason for Visit * Reason Onset Date Comments callback requested 04/23/2024 Encounter Details Date Type Department Care Team ([facility] st Contact Info) Description 04/23/2024 Telephone [facility] 230 [place] [address] Naheed Zaman ANP 230 [place] [address] callback requested Social History Tobacco Use Types [...] returning call to Madie Olson Callback number [phone] documented in this encounter Plan of Treatment Upcoming Encounters Date Type Department Care Team (Late st Contact Info) Description 04/03/2025 3:00 PM EST Office Visit [facility] [address] [place] [address] Rut Branham MD [address] [place] [address] 04/29/2025 1:00 PM EST Telemedicine [address] [address] Billy Brooke, PharmD [address] [place] [address] 06/26/2025 3:00 PM EST Office Visit [facility] 230 [place], [place] [phone] Rut Branham MD 230 [place], [place] [phone] 06/27/2025 11:15 AM EST Office Visit [address] [address] Naheed Zaman ANP 230 [place], [place] [phone] documented as of this encounter Visit Diagnoses Not on filedocumented in this encounter Additional Health Concerns Assessment Noted Time PHQ-9 Depression Total Score: 25 024 8:12 AM EDT documented as of this encounter Care Teams Talent Acquisition Sourcer Relationship Specialty Start Date End Date Naheed Zaman ANP [address] [place] [address] [phone] PCP - General Family Medicine 01/18/22 Real Gomez MD [address] [place] [address] 3rd [place] [address] Cardiology 10/01/24 Chico Kebede, APRIL [address] [place] [address] Registered Nurse Family Medicine 02/03/25 02/03/25 Kalpesh Calles Media Relations AssociatePress Service Reader 02/21/25 documented as of this encounter
--- OUTSIDE RECORDS SUMMARY | 2025-04-02 09:02 | XMS_ITS | Encounter Summary ---
Author Organization [employer] Address [address] 7t [place] [address] Care Team Providers Care Varnish Filterer Name Role Phone Nahede Zaman Primary Care Provider Real Gomez MD Unavailable Chico Kebede RN Unavailable Reason for Visit * Reason Onset Date Comments Med Refill 01/03/2025 Encounter Details Date Type Department Care Team (Late st Contact Info) Description 01/03/2025 Refill [facility] 230 [place] [address] Naheed Zaman ANP 230 [place] [address] Gastroesophageal reflux disease, unspecified whether esophagitis present; [...] Description 04/03/2025 3:00 PM EST Office Visit [facility] [address] [place] [address] Rut Branham MD [address] [place] [address] 04/29/2025 1:00 PM EST Telemedicine [facility] [address] [place] [address] Billy Brooke, PharmD [address] [place] [address] 06/26/2025 3:00 PM EST Office Visit [address] [address] Rut Branham MD 230 [place] [address] 06/27/2025 11:15 AM EST Office Visit [facility] 230 [place], [place] [phone] Naheed Zaman ANP 230 [place] [address] documented as of this encounter Visit Diagnoses Diagnosis Gastroesophageal reflux disease, unspecified whether esophagitis present Essential hypertension Unspecified essential hypertension Chronic low back pain without sciatica, unspecified back pain laterality documented in this encounter Additional Health Concerns Assessment Noted Time PHQ-9 Depression Total Score: 7 10/05/19 25 2:06 PM EDT documented as of this encounter Care Teams Varnish Filterer Relationship Specialty Start Date End Date Naheed Zaman ANP 230 [place] [address] PCP - General Family Medicine 01/18/22 Real Gomez MD [address] [place] [address] 3rd [place] [address] Cardiology 10/01/24 Chico Kebede, APRIL [address] [place] [address] Registered Nurse Family Medicine 02/03/25 02/03/25 Kalpesh Calles Test Borer HelperWaste Water Or Water Plant Operator 02/21/25 documented as of this encounter
--- OUTSIDE RECORDS SUMMARY | 2025-04-02 09:02 | XMS_ITS | Encounter Summary ---
Author Organization [employer] Address [address] [facility] [address] [place] [address] Care Team Providers Care Coding Educator Name Role Phone Naheed Zaman Primary Care Provider [phone] Real Gomez MD Unavailable Chico Kebede RN Unavailable [phone] Reason for Visit * Reason Comments Med Refill Encounter Details Date Type Department Care Team (Late st Contact Info) Description 01/30/2025 Refill [facility] [address] [place] [address] Rut Branham MD [address] [place] [address] Uncomplicated opioid dependence (CMS/HCC) Social History Tobacco [...] Description 04/03/2025 3:00 PM EST Office Visit [facility] [address] [place] [phone] Rut Branham MD [address] [place] [phone] 04/29/2025 1:00 PM EST Telemedicine [facility] [address] [place] [phone] Billy Brooke, PharmD [address] [place] [phone] 06/26/2025 3:00 PM EST Office Visit [facility] [address] [place] [phone] Rut Branham MD [address] [place] [phone] 06/27/2025 11:15 AM EST Office Visit [facility] [address] [place] [address] Naheed Zaman ANP [address] [place], [place] [phone] documented as of this encounter Visit Diagnoses Diagnosis Uncomplicated opioid dependence (CMS/HCC) (HCC) documented in this encounter Additional Health Concerns Assessment Noted Time PHQ-9 Depression Total Score: 7 10/05/19 25 2:06 PM EDT documented as of this encounter Care Teams Coding Educator Relationship Specialty Start Date End Date Naheed Zaman ANP [address] [place], [place] [phone] PCP - General Family Medicine 01/18/22 Real Gomez MD [address] [place] [address] [address] [place] [address] Cardiology 10/01/24 Chico Kebede, APRIL [address] [place] [address] Registered Nurse Family Medicine 02/03/25 02/03/25 Kalpesh Calles Intelligence ConsultantDigital Sales Executive 02/21/25 documented as of this encounter
--- OUTSIDE RECORDS SUMMARY | 2025-04-02 09:02 | XMS_ITS | Clinical Summary ---
Author Organization [employer] Address [address] [facility] [address] [place] [address] Care Team Providers Care Chronometer Tester Name Role Phone Sofia Mitchell Primary Care Provider [phone] Real Gomez MD Unavailable Allergies Active Allergy Reactions Criticality Noted Date Comments Shellfish Allergy Other 05/02/2022 Difficulty breathing Medications * This document contains information received [...] times a day Active Sure Comfort Pen Magnolia 31G X 5 MM misc USE FOUR TIMES DAILY WITH INSULIN Active TRUEplus Lancets 33G misc TEST BLOOD SUGAR FOUR TIMES DAILY Active Lidoderm 5 % patch APPLY 1 PATCH TOPICALLY DAILY LEAVE ON MOST PAINFUL AREA FOR UP TO 12 HRS Active naloxone (Narcan) 4 mg/0.1 mL nasal spray Administer 0.1 mL into affected nostril(s). Active EPINEPHrine (Epipen) 0.3 MG/0.3ML injection syringeIndicatio ns:Allergy to shellfish INJECT INTRAMUSCULARLY DIRECTED ON PACKAGE AND GO TO EMERGENCY ROOM 2 each 023 Active Blood Pressure Monitor kitIndications:P ulmonary hypertension (CMS/HCC) ([facility]) 1 kit in the morning. 1 kit 024 Active chlorhexidine (Peridex) 0.12 % solution Swish 15 mL morning and night for 1 minute. Spit, do not swallow. Do not eat or drink for 30 minutes following use. 473 mL 024 Active Continuous Glucose Candy Department Manager (FreeStyle Casey 2 Lucan) deviceIndication s:Diabetes mellitus with albuminuria ([facility]) Scan sensor every 8 hours 1 each 024 Active Continuous Glucose Sensor (FreeStyle Casey 2 Sensor) miscIndications: Diabetes mellitus with albuminuria ([facility]) Apply 1 sensor every 14 days 2 each 11 024 Active olmesartan-hydro CHLOROthiazide (Benicar HCT) 40-12.5 MG tabletIndication s:Essential hypertension Take 1 tablet by mouth Once per day. 90 tablet 3 025 2025 Active insulin glargine (Lantus SoloStar) 100 UNIT/ML penIndications:T ype 2 diabetes mellitus with hyperlipidemia ([facility]) INJECT 40 UNITS SUBCUTANEOUSLY AT BEDTIME 15 mL 3 025 Active betamethasone valerate (Valisone) 0.1 % creamIndications :Venous stasis dermatitis of both lower extremities APPLY TOPICALLY TWICE DAILY IN THE MORNING AND AT BEDTIME NEEDED DRY SKIN 45 g 2 025 Active meloxicam (Mobic) 15 MG tabletIndication s:Chronic low back pain without sciatica, unspecified back pain laterality TAKE 1 TABLET BY MOUTH EVERY DAY NEEDED FOR PAIN 30 tablet 3 025 Active tamsulosin (Flomax) 0.4 MG 24 hr capsuleIndicatio ns:Urinary retention TAKE 1 CAPSULE BY MOUTH DAILY 30 MINUTES AFTER THE SAME MEAL EVERY DAY 60 capsule 3 025 Active FLUoxetine (PROzac) 20 MG capsuleIndicatio ns:Severe episode of recurrent major depressive disorder, without psychotic features (CMS/HCC) ([facility]) TAKE 3 CAPSULES BY MOUTH EVERY MORNING 90 capsule 1 025 Active D3 Super Strength 50 MCG (2000 UT) capsule Take 1 capsule by mouth Once per day. 025 Active cyclobenzaprine (Flexeril) 10 MG tablet take 1 tablet by mouth three times a day as needed for muscle spasm Active MAGnesium-Oxide 400 (240 Mg) MG tablet TAKE 1 TABLET BY MOUTH AT BEDTIME FOR LEG CRAMPS, STOP FOR LOOSE STOOL Active phentermine 15 MG capsule Take 15 mg by mouth before breakfast. Active pregabalin (Lyrica) 50 MG capsule take 1 capsule by mouth everyday at bedtime Active pyridoxine (Vitamin B-6) 250 MG tablet TAKE 1 TABLET BY MOUTH IN THE EVENING FOR LEG CRAMPS. NO MORE THAN 1 TABLET (250mg) PER DAY Active Cosentyx Sensoready, 300 MG, 150 MG/ML solution auto-injector INJECT 150 MG SUBCUTANEOUSLY ONCE EVERY 4 WEEKS (MAINTENANCE DOSE AFTER LOADING DOSE) Active Mounjaro 2.5 MG/0.5ML solution auto-injector INJECT ONE PEN (=2.5MG) SUBCUTANEOUSLY ONCE A WEEK DIRECTED Active ammonium lactate (Lac-Hydrin) 12 % lotion APPLY TOPICALLY IF NEEDED FOR DRY SKIN. Active glucose 4 g chewable tablet CHEW 4 TABLETS NEEDED LOW BLOOD SUGAR Active atorvastatin (Lipitor) 10 MG tabletIndication s:Type 2 diabetes mellitus with hyperlipidemia (HCC) Take 1 tablet (10 mg) by mouth at bedtime. 90 tablet 3 Active ARIPiprazole (Abilify) 10 MG tabletIndication s:Severe episode of recurrent major depressive disorder, without psychotic features (CMS/HCC) ([facility]) Take 1.5 tablets (15 mg) by mouth Once per day. 45 tablet 2024 Active esomeprazole (NexIUM) [address] capsuleIndicatio ns:Gastroesophag eal reflux disease, unspecified whether esophagitis present Take 1 capsule (40 mg) by mouth before breakfast. Do not open capsule. 90 capsule 1 Active Suboxone 8-2 MG SL filmIndications: Uncomplicated opioid dependence (CMS/HCC) ([facility]) Place 3 Film under the tongue Once per day. 84 Film 2 2025 Active melatonin 3 MG tabletIndication s:Insomnia, unspecified type Take 1 tablet 30-60 min before bedtime as needed for sleep 30 tablet 2 Active Vitron-C 65-125 MG tablet Take 1 tablet by mouth at bedtime. 2024 Discontinued( Med list cleanup (will not trigger notification to Pharmacy)) thiamine (Vitamin B-1) 50 MG tablet Take 50 mg by mouth in the morning. 2024 Discontinued( Med list cleanup (will not trigger notification to Pharmacy)) beta carotene (vitamin A) 3 MG (45348 UT) capsule TAKE 2 CAPSULES BY MOUTH EVERY DAY FOR 2 WEEKS 2024 Discontinued( Med list cleanup (will not trigger notification to Pharmacy)) atorvastatin (Lipitor) 10 MG tabletIndication s:Type 2 diabetes mellitus with hyperlipidemia (HCC) Take 1 tablet (10 mg) by mouth at bedtime. 90 tablet 3 2024 Discontinued( Reorder (will not trigger notification to Pharmacy)) GaviLAX 17 GM/SCOOP powder TAKE DIRECTED BY MOUTH THE DAY BEFORE YOUR PROCEDURE. 2024 Discontinued( Med list cleanup (will not trigger notification to Pharmacy)) glucose (BD Glucose) 5 g chewable tabletIndication s:Type 2 diabetes mellitus with hyperlipidemia (HCC) Chew 3 tablets (15 g) if needed for low blood sugar. 50 tablet 5 2024 Discontinued( Med list cleanup (will not trigger notification to Pharmacy)) ammonium lactate (Amlactin) 12 % creamIndications :Venous stasis dermatitis of both lower extremities Apply topically if needed for dry skin. 385 g 2024 Discontinued( Med list cleanup (will not trigger notification to Pharmacy)) liver oil-zinc oxide (Desitin) 40 % ointment Apply topically if needed in the morning and at bedtime for irritation. 56 g 2024 Discontinued( Med list cleanup (will not trigger notification to Pharmacy)) esomeprazole (NexIUM) [address] capsuleIndicaalan ns:Gastroesophag eal reflux disease, unspecified whether esophagitis present TAKE 1 CAPSULE BY MOUTH EVERY MORNING BEFORE BREAKFAST. DO NOT BREAK, CRUSH, DISSOLVE OR CHEW 90 capsule 1 2024 Discontinued( Reorder (will not trigger notification to Pharmacy)) triamcinolone (Kenalog) 0.1 % creamIndications :Venous stasis dermatitis of both lower extremities Apply topically if needed in the morning and at bedtime (pain and swelling). 80 g 2024 Discontinued( Med list cleanup (will not trigger notification to Pharmacy)) meloxicam (Mobic) 15 MG tabletIndication s:Chronic low back pain without sciatica, unspecified back pain laterality TAKE 1 TABLET BY MOUTH EVERY DAY NEEDED FOR PAIN 30 tablet 3 2024 Discontinued semaglutide (Ozempic) 2 MG/1.5ML solution pen-injectorIndi cations:Diabetic nephropathy with proteinuria (HCC) Inject 0.5 mg under the skin 1 (one) time per week. 1 each 12 2024 Discontinued( Med list cleanup (will not trigger notification to Pharmacy)) ARIPiprazole (Abilify) 10 MG tabletIndication s:Severe episode of recurrent major depressive disorder, without psychotic features (CMS/HCC) (HCC) Take 1.5 tablets (15 mg) by mouth Once per day. 45 tablet 2024 Discontinued( Reorder (will not trigger notification to Pharmacy)) tamsulosin (Flomax) 0.4 MG 24 hr capsuleIndicatio ns:Urinary retention Once capsule daily approximately 30 minutes after a meal at the same time each day 30 capsule 1 2024 Discontinued FLUoxetine (PROzac) 20 MG capsuleIndicatio ns:Severe episode of recurrent major depressive disorder, without psychotic features (CMS/HCC) (HCC) TAKE 3 CAPSULES BY MOUTH EVERY DAY IN THE MORNING 90 capsule 1 2024 Discontinued Suboxone 8-2 MG SL filmIndications: Uncomplicated opioid dependence (CMS/HCC) (HCC) Place 3 Film under the tongue Once per day. 84 Film 1 2024 Discontinued( Reorder (will not trigger notification [...] recurrent major depressive disorder, without psychotic features ([facility]) 09/20/2023 Assessment & Plan (02/08/2024 2:34 PM [...] Health Integration Plan Internal Follow up with [facility] Patient Self Plan [facility], Comply with medication [...] Health Integration Plan Internal Follow up with [facility] Patient Self Plan Patient to [facility] team as needed, Comply with medication [...] Health Integration Plan Internal Follow up with [facility] Patient Self Plan Patient to utilize skills provided in intervention , Patient to reach out to [facility] team as needed, and Patient [...] Health Integration Plan Internal Follow up with [facility] External OP psychiatry Referral Patient Self Plan Patient to reach out to [facility] team as needed, Comply with medication , Patient to engage in OP therapy , and Patient to reach out to [facility] as needed Assessment & Plan (09/20/2023 10:06 AM EDT): New/Additional Services needed Off-site services for Behavioral Health Integration Plan External OP therapy referral Patient Self Plan Patient to utilize skills provided in intervention , Patient to reach out to [facility] team as needed, Comply with [...] to do prescription for it Morbid obesity (CMS/HCC) 07/28/2022 Assessment & Plan (03/02/2023 4:55 PM EDT): Pt's BMI is 60 with exam consistent of double pannus in lower abdomen , no signs for infection nor hernias -I discussed today to referral sp-Joseline Manzano who explained that she tried referring pt to [facility] and other centers and pt;s can not be evaluated for plastic surgery w current BMI -I request referral to be sent to [facility] but was explained is the same criteria [...] planus 05/11/2017 Pure hypercholesterolemia 05/10/2017 Pulmonary hypertension (CMS/HCC) 05/10/2017 Overview (07/28/2022): Mild, ECHO 10/21/10 C, EF 65-70% H. pylori infection 05/10/2017 Overview (07/28/2022): + serology 08/07/2009, uncertain if treated Gout 05/10/2017 Elevated liver enzymes 05/10/2017 Overview (07/28/2022): fatty liver Arthritis 05/10/2017 Overview (07/28/2022): Mild L knee, Mod L shoulder arthropathy Asthma 05/10/2017 Spondylosis of lumbar region without myelopathy or radiculopathy 04/26/2017 Overview (11/22/2024): Saw [facility] Rheumatology, now on humira which has been [...] sleep apnea) 05/18/2015 Overview (11/22/2024): Polysomnography 08/05/2009, [facility]: On cpap 14 cm H2O 10/23/2017 Home Sleep Study insufficient data. 08/2018 - Pul ordered split night study. Titration was done 03/2023 and titrated to start cpap at [id number]. HST c/w AHI 124/hr and oxygen fritz to 70%, he was titrated Follows w/ [facility] Neurology and Sleep, Leyla ZHOU Proteinuria 05/18/2015 Encounters * This document contains information received from the source organization and may not represent a complete record from that organization. Date Type Department Care Team Description 04/01/2025 Telephone [facility] [address] [place] [phone] Sofia Mitchell ANP Durable Medical Equipment 03/31/2025 Telephone [facility] [address] [place] [phone] Sofia Mitchell ANP may03/27/2025 9:00 AM EDT Office Visit [facility] [address] [place] [phone] Sofia Mitchell ANP Severe episode of recurrent major depressive disorder, without psychotic features (CMS/HCC) (HCC) (Primary Dx); Pulmonary hypertension (CMS/HCC) (HCC); Type 2 diabetes mellitus with hyperlipidemia (CMS/HCC) ; Polyneuropathy associated with underlying disease (CMS/HCC); BETSY (obstructive sleep apnea); Diabetic nephropathy with proteinuria (HCC); Primary hypertension; Mild intermittent asthma without complication; Insomnia, unspecified type; Encounter for immunization 03/27/2025 Orders Only [facility] [address] [place] [phone] Rut Branham MD HTN (hypertension) (Primary Dx) 03/27/2025 Travel 03/26/2025 Refill [facility] [address] [place] [phone] Rut Branham MD Uncomplicated opioid dependence (CMS/HCC) (HCC) 03/25/2025 1:30 PM EDT Telemedicine [facility] [address] [place] [phone] Billy Brooke, PharmD Diabetic nephropathy with proteinuria (HCC) (Primary Dx) 03/25/2025 Refill [facility] [address] [place] [phone] Sofia Mitchell ANP Type 2 diabetes mellitus with hyperlipidemia (HCC); Severe episode of recurrent major depressive disorder, without psychotic features (CMS/HCC) (HCC); Gastroesophageal reflux disease, unspecified whether esophagitis present 03/25/2025 Telephone [facility] [address] [place] [phone] Sofia Mitchell ANP chart prep 03/13/2025 Refill [facility] [address] [place] [phone] Sofia Mitchell ANP Chronic low back pain without sciatica, unspecified back pain laterality; Urinary retention 02/21/2025 Telephone [facility] [address] [place] [address] Sofia Mitchell ANP Care Coordination (ICP Care Plan) 02/06/2025 2:00 PM EDT Clinical Support [address] [address] Tristen Chne RN Uncomplicated opioid dependence ([facility]/HCC) 02/06/2025 Travel 02/03/2025 Patient Outreach [address] [address] Sofia Mitchell ANP Care Coordination ([facility]/Matthew Davenport f/u, program graduation) 02/03/2025 Patient Outreach [address] [address] Sofia Mitchell ANP Care Management (C3- f/u call) 01/30/[address] [address] Rut Branham MD Uncomplicated opioid dependence ([facility]) 01/29/[address] [address] Rut Branham MD Uncomplicated opioid dependence ([facility]) 01/28/2025 Patient Outreach [facility] [address] [place] [address] Sofia Mitchell ANP 01/20/2025 Travel 01/20/2025 Patient Outreach [address] [address] Sofia Mitchell ANP Care Coordination ([facility]/CATHERINE DavenportPR f/u call ) 01/20/2025 Patient Outreach [facility] [address] [place] [address] Sofia Mitchell ANP Care Coordination (C3CM f/u call) 01/17/2025 11:30 AM EDT Clinical Support [address] [address] Lela Witt RN Type 2 diabetes mellitus with hyperlipidemia (CMS/HCC) ([facility]/HCC) 01/17/2025 Travel 01/16/[address] [address] Sofia Mitchell ANP Durable Medical Equipment 01/15/2025 Refill [facility] [address] [place] [phone] Sofia Mitchell ANP Venous stasis dermatitis of both lower extremities 01/13/2025 Telephone [facility] [address] [place] [phone] Sofia Mitchell ANP vasular 01/13/[address] [address] Sofia Mitchell ANP Vascular 01/10/2025 Results Follow-Up [address] [address] Sofia Mitchell ANP US BLADDER 01/09/2025 10:30 AM EDT Office Visit [address] [address] Sofia Mitchell ANP Type 2 diabetes mellitus with hyperlipidemia ([facility]) (Primary Dx); Morbid obesity (CMS/[facility]); Diabetic nephropathy with proteinuria ([facility]); Pulmonary hypertension ([facility]); MICHAEL (generalized anxiety disorder); Dietary counseling; Exercise counseling 01/09/2025 Travel 01/08/[address] [address] Sofia Mitchell ANP chart prep 01/03/[address] [address] Sofia Mitchell ANP Gastroesophageal reflux disease, unspecified whether esophagitis present; Essential hypertension; Chronic low back pain without sciatica, unspecified back pain laterality 01/03/2025 Refill [facility] [address] [place] [phone] Rut Branham MD Uncomplicated opioid dependence ([facility]/HCC) 01/02/2025 Patient Outreach [address] [address] Sofia Mitchell ANP Care Management (C3CM- f/u call) from Last 3 Months Immunizations Immunization Administration Dates Next Due Hep B, adult 03/27/2025,10/17/2023 Influenza, IIV3, injectable 01/27/2011 Influenza, Split (incl. purified surface antigen ) 02/27/2012 Influenza, seasonal, injectable, preservative fr ee 02/27/2012,01/27/2011 Pfizer Covid-19 Vaccine 12+ 12/29/2020, Pneumococcal Conjugate PCV 20 03/27/2025 Tdap 10/17/2023,03/15/2011 Family History Medical History Relation [...] Mass Index 63.57 03/27/2025 9:03 AM EDT Plan of Treatment Upcoming Encounters Date Type Department Care Team (Late st Contact Info) Description 04/03/2025 3:00 PM EST Office Visit [facility] [address] [place] [phone] Rut Branham MD [address] [place] [phone] 04/29/2025 1:00 PM EST Telemedicine [address] [address] Billy Brooke, PharmD [address] [place] [phone] 06/26/2025 3:00 PM EST Office Visit [address] [address] Rut Branham MD [address] [place] [phone] 06/27/2025 11:15 AM EST Office Visit [address] [address] Sofia Mitchell ANP [address] [place] [phone] Health Maintenance Due Date Last Done Comments Dental Oral Exam 1980 Dental Prophylaxis 1981 Dental X-Ray: Bitewings 1981 Dental X-Ray: Full Mouth 1981 Diabetes: Foot Exam 11/14/1991 Family Planning (PISQ) 1996 HPV Vaccines (1 - Male 3-dose series) 1996 COVID-19 Vaccine (3 - season) 2025 12/29/2020, 12/10/2020 Influenza Vaccine (#1) 2025 2, 02/27/2012, 01/27/2011, Additional history exists Lipid Panel 04/24/2025 04/24/2024, 06/14/2023 Hepatitis B Vaccines (3 of 3 - 19+ 3-dose series) 05/22/2025 03/27/2025, 10/17/2023 Diabetes: Hemoglobin A1C 07/12/2025 025, 10/08/2024, 07/10/2024, Additional history exists Depression Screening 10/04/2025 10/04/2024, 10/05/19 25 SDOH Screening 10/04/2025 10/04/2024 Alcohol/Substance Use Screening 10/08/2025 10/08/2024 Disability Screening 10/08/2025 10/08/2024 Tobacco Screening 03/27/2026 03/27/2025 Eye Exam 06/27/2026 06/27/2024, 05/31, 06/27/2024, Additional history exists Zoster Vaccines (1 of 2) 11/14/2031 DTaP/Tdap/Td Vaccines (3 - Td or Tdap) 10/16/2033 10/17/2023, 03/15/2011 RSV Patients and Patients Aged 60 years or older (1 - 1-dose 75+ series) 2056 HIV Screening Completed 12/13/2023, 12/16/2021 Hepatitis C Screening Completed 12/12/2024 , 07/03/2024, 10/11/2023, Additional history exists Pneumococcal Vaccine: Pediatrics (0 to 5 Years) and At-Risk Patients (6 to 49) Years Completed 03/27/2025 HIB Vaccines Aged Out No longer eligi [...] AM EDT Narrative 01/10/2025 9:50 AM EDT [facility] [place] [address] Ultrasound Report Signed Patient: Ross Navarrete MR#: [id number] : 1980 Acct:[id number] Age/Sex: 44 / M ADM Date: 01/09/25 Loc: HO.HMGCX Attending Dr: Sofia Mitchell NP Ordering Physician: SOFIA MITCHELL NP Date of Service: 01/09/25 Procedure(s): US bladder Accession Number(s): [id number] cc: SOFIA MITCHELL NP CLINICAL HISTORY: ?urinary retention US Urinary Bladder Comparison: None Findings: The urinary bladder is unremarkable. Prevoid volume: 250 mL Ureteral jets are not visualized bilaterally. IMPRESSION: Normal urinary bladder This document has been electronically signed by: Ranjan Montiel MD on 01/10/2025 09:48:52 Dictated By: Ranjan Montiel MD Signed By: <Electronically signed by Ranjan Montiel MD in OV> 01/10/2549 DD/ TD/TT: 01/10/25947 Electron Microprobe Operator: Procedure Note Donotuseinterpreter, Image - 01/10/2025 [facility] [address] [place] [address] [place] [address] Ultrasound Report Signed Patient: Ross Navarrete LMR#: [id number] : 1980Acct:[id number] Age/Sex: 44 / MADM Date: 01/09/25 Loc: HO.M[facility]COGE[facility]X Attending Dr: Sofia Mitchell NP Ordering Physician: SOFIA MITCHELL NP Date of Service: 01/09/25 Procedure(s): US bladder Accession Number(s): [id number] cc: SOFIA MITCHELL NP CLINICAL HISTORY: ?urinary retention US Urinary Bladder Comparison: None Findings: The urinary bladder is unremarkable. Prevoid volume: 250 mL Ureteral jets are not visualized bilaterally. IMPRESSION: Normal urinary bladder This document has been electronically signed by: Ranjan Montiel MD on 01/10/2025 09:48:52 Dictated By: Ranjan Montiel MD Signed By: <Electronically signed by Ranjan Montiel MD in OV> 01/10/25948 DD/ TD/TT: 01/10/25 0948 Electron Microprobe Operator: us Sofia Mitchell ANP IMG US PROCEDURES Final Result * (ABNORMAL) POCT HGB A1C (01/09/2025 10:56 AM EDT) Pathologist [facility] Hemoglobin A1C 5.8(A) 4.0 - 5.7 % QC Media Lot # [id number] Lot# Expiration Date , Blood 01/09/2025 10:5 6 AM EDT us Sofia Mitchell ANP POINT OF CARE TEST ENTER/EDIT OR DERABLES Final Result * POCT Glucose (01/09/2025 10:55 AM EDT) Pathologist [facility] Glucose Blood, POC 102 60 - 200 mg/dL QC Media Lot # [id number] Lot# Expiration Date 2950,946 Blood Capillary blood specimen / Unknown 01/09/2025 10:55 AM EDT us Sofia Mitchell ANP POINT OF CARE TEST ENTER/EDIT OR DERABLES Final Result * Hepatitis C Antibody with Reflex to HCV, RNA, Quantitative, Real-Time PCR (12/12/2024 1:48 PM EDT) [facility] Hepatitis C Antibody Nonreactive Nonreactive [facility] Comment:Antibodies to HCV no t detected; does not exclude early acuteHCV infection. Blood Venous blood specimen / Unknown 12/12/2024 1:48 PM EDT 12/12/2024 4:06 PM EDT Rut Branham MD LAB BLOOD ORDERABLES Final R esult [facility] [address] [place] [address] [phone] * Lipid Panel, Standard (04/24/2024 11:23 AM EST) Pathologist [facility] Triglycerides 132 <150 mg/dL [facility] Comment:Desirable Triglyceri de: less than [...] Final Result [facility] [address], [place] [phone] * HIV-1/2 Antigen and Antibodies, Fourth Generation, with Reflexes (12/13/2023 11:48 AM EDT) HIV AB/AG Nonreactive Nonreactive [facility] Comment:HIV-1 p24 Ag and/or HIV-1/HIV-2 Ab not detected.A test result that is nonreactive does not exclude thepossibility of exposure to or infection with HIV-1 and/orHIV-2. Nonreactive results in this assay for individualswith prior exposure to HIV-1 and/or HIV-2 may be due toantigen and antibody levels that are below the limit ofdetection of this assay.The [employer] HIV Ag/Ab Combo assay result andsupplemental assay results should be interpreted inconjunction with the patient's clinical presentation,history and other laboratory results. If the results areinconsistent with clinical evidence, additional testing issuggested to confirm the result. Blood Venous blood specimen / Unknown 12/13/2023 11:48 AM EDT 12/13/2023 12:51 PM EDT Sofia RAHMAN LAB BLOOD ORDERABLES Final Resul t [facility] [address] [place] [address] [phone] from Last 3 Months or Most Recently Relevant to Health Maintenance Insurance [facility] C3 [facility] MEDICAID STAND ADULT Care Teams Chronometer Tester Relationship Specialty Start Date End Date Sofia Mitchell ANP [address] [place] [address] PCP - General Family Medicine 01/18/22 Real Gomez MD [address] [place] [address] 3rd [place] [address] Cardiology 10/01/24 Kalpesh Calles Mines Safety EngineerGlaze Sprayer 02/21/25
--- OUTSIDE RECORDS SUMMARY | 2025-04-02 09:02 | XMS_ITS | Encounter Summary ---
Author Organization [employer] Address [address] [facility] 7t [place] [address] Care Team Providers Care Program Services Assistant Name Role Phone Naheed Zaman Primary Care Provider [phone] Real Gomez MD Unavailable Reason for Visit * Reason Onset Date Comments may recall 03/31/2025 Encounter Details Date Type Department Care Team ([facility] st Contact Info) Description 03/31/2025 Telephone [facility] 230 [place] [address] Naheed Zaman ANP 230 [place] [address] may recall Social History Tobacco Use Types Packs/Day [...] encounter Miscellaneous Notes * Telephone Encounter - Araceli Hunter MA - 03/31/2025 9:25 AM EST Telephone call to patient to schedule a recall appointment. No answer, Left voicemail to return call to clinic.. Recall letter sent. Visit type: Follow up Appointment notes: Follow up in about 3 months (around 06/27/2025) for wt, pain, DM f/u. Month due: May With: Junie Please schedule appointment above if patient returns call documented in this encounter Plan of Treatment Upcoming Encounters Date Type Department Care Team (Late st Contact Info) Description 04/03/2025 3:00 PM EST Office Visit [facility] [address] [place] [address] Rut Branham MD 230 [place] [address] 04/29/2025 1:00 PM EST Telemedicine [facility] [address] [place], [place] [address]c[place] [address] Billy Brooke, PharmD [facility] [address] 06/26/2025 3:00 PM EST Office Visit [facility] [place] [address] Rut Branham MD 230 [facility] [place] [address] 06/27/2025 11:15 AM EST Office Visit [facility] [place] [address] Naheed Zaman ANP [facility] [place] [address] documented as of this encounter Visit Diagnoses Not on filedocumented in this encounter Additional Health Concerns Assessment Noted Time PHQ-9 Depression Total Score: 7 10/05/19 25 2:06 PM EDT documented as of this encounter Care Teams Program Services Assistant Relationship Specialty Start Date End Date Naheed Zaman ANP [facility] [place] [address] PCP - General Family Medicine 01/18/22 Real Gomez MD [address] [place] [address] 3rd [place] [address] Cardiology 10/01/24 Kalpesh Calles Assembler UnitCarbider 02/21/25 documented as of this encounter
--- OUTSIDE RECORDS SUMMARY | 2025-04-02 09:02 | XMS_ITS | Encounter Summary ---
Author Organization [employer] Address 75 [facility] 7t [place] [address] Care Team Providers Care Mattress Finisher Name Role Phone Naheed Zaman Primary Care Provider Real Gomez MD Unavailable Chico Kebede RN Unavailable [phone] Reason for Visit * Reason Onset Date Comments Durable Medical Equipment 10/04/2022 Encounter Details Date Type Department Care Team (Late st Contact Info) Description 10/04/2022 Telephone [facility] MED[facility]INE 230 [place] [address] Naheed Zaman ANP 230 [place] [address] Durable Medical Equipment Social History Tobacco Use [...] for Compressions socks. Please contact pt at [phone] documented in this encounter Plan of Treatment Upcoming Encounters Date Type Department Care Team (Late st Contact Info) Description 04/03/2025 3:00 PM EST Office Visit [address] [address] Rut Branham MD [address] [place] [address] 04/29/2025 1:00 PM EST Telemedicine [address] [address] Billy Brooke, PharmD [address] [place] [address] 06/26/2025 3:00 PM EST Office Visit [address] [address] Rut Branham MD [address] [place] [address] 06/27/2025 11:15 AM EST Office Visit [address] [address] Naheed Zaman ANP [address] [place] [address] documented as of this encounter Visit Diagnoses Not on filedocumented in this encounter Care Teams Mattress Finisher Relationship Specialty Start Date End Date Naheed Zaman ANP [address] [place] [address] PCP - General Family Medicine 01/18/22 Real Gomez MD [address] [place] [address] 3rd [place] [address] Cardiology 10/01/24 Chico Kebede RN [address] [place] [address] Registered Nurse Family Medicine 02/03/25 02/03/25 Kalpesh Calles Magazine HandYouth Program Director 02/21/25 documented as of this encounter
--- OUTSIDE RECORDS SUMMARY | 2025-04-02 09:02 | XMS_ITS | Clinical Summary ---
Author Organization [facility] Address [address] [place] [address] Phone Care Team Providers Care Audiovisual Librarian Name Role Phone Naheed Zaman NP Primary Care Provider [phone] Allergies Active Allergy Reactions Criticality Noted Date [...] Description 02/05/2025 3:00 PM EDT Office Visit [facility] Medical Weight Management [address] [address] Sri Andrade MD Morbid obesity (Primary Dx); [...] Care Team (Late st Contact Info) Description 06/11/2025 1:30 PM EST Telemedicine [facility] Medical Weight Management [address] [facility] [address] [place] [address] Felicity Puentes CNP 221 [place] [address] 10/30/2025 10:40 AM EDT Office Visit [facility] Medical Weight Management [address] [address] Sri Andrade MD [address] [address] [email or web address] Maintenance Due Date Last Done Comments [...] topic Medical Devices Not on file Insurance [facility] Care Teams Audiovisual Librarian Relationship Specialty Start Date End Date Naheed Zaman NP [address] [place] [address] PCP - General Nurse Practitioner 01/02/25 Additional Source Comments The information contained in this document represents components of the legal health record. It is not the complete legal health record.[facility]
--- OUTSIDE RECORDS SUMMARY | 2025-04-02 09:02 | XMS_ITS | Encounter Summary ---
Author Organization [employer] Address [address] [facility] [address] 7t [place] [address] Care Team Providers Care Back Feeder Plywood Layup Line Name Role Phone Naheed Zaman Primary Care Provider [phone] Real Gomez MD Unavailable Chico Kebede RN Unavailable [phone] Reason for Visit * Reason Onset Date Comments Med Refill 01/03/2025 Encounter Details Date Type Department Care Team (Late st Contact Info) Description 01/03/2025 Refill [facility] 230 [place] [address] Rut Branham MD 230 [place] [address] Uncomplicated opioid dependence (CMS/HCC) Social History Tobacco [...] Description 04/03/2025 3:00 PM EST Office Visit [facility] [address] [place] [address] Rut Branham MD [address] [place] [address] 04/29/2025 1:00 PM EST Telemedicine [facility] [address] [place] [address] Billy Brooke, PharmD [address] [place] [address] 06/26/2025 3:00 PM EST Office Visit [facility] [address] [place] [address] Rut Branham MD [address] [place] [address] 06/27/2025 11:15 AM EST Office Visit [facility] 230 [place], [place] [phone] Naheed Zaman ANP 230 [place] [address] documented as of this encounter Visit Diagnoses Diagnosis Uncomplicated opioid dependence (CMS/HCC) (HCC) documented in this encounter Additional Health Concerns Assessment Noted Time PHQ-9 Depression Total Score: 7 10/05/19 25 2:06 PM EDT documented as of this encounter Care Teams Back Feeder Plywood Layup Line Relationship Specialty Start Date End Date Naheed Zaman ANP 230 [place], [place] [phone] PCP - General Family Medicine 01/18/22 Real Gomez MD [address] [place] [address] 3rd [place] [address] Cardiology 10/01/24 Chico Kebede, APRIL 505 [place] [address] Registered Nurse Family Medicine 02/03/25 02/03/25 Kalpesh Calles Camera RepairerLead Qa Analyst 02/21/25 documented as of this encounter
--- OUTSIDE RECORDS SUMMARY | 2025-04-02 09:02 | XMS_ITS | Encounter Summary ---
Author Organization [employer] Address 75 [facility] 7t [place] [address] Care Team Providers Care Photographic Double Name Role Phone Naheed Zaman Primary Care Provider [phone] Real Gomez MD Unavailable Reason for Visit * Reason Onset Date Comments Durable Medical Equipment 04/01/2025 Encounter Details Date Type Department Care Team (Late st Contact Info) Description 04/01/2025 Telephone [facility] 230 [place] [address] Naheed Zaman ANP 230 [place] [address] Durable Medical Equipment Social History Tobacco Use [...] the past 12 months, has t he [employer], gas, oil or water company threatened to [...] encounter Miscellaneous Notes * Telephone Encounter - Jesse Bullock - 04/01/2025 3:00 PM EST Patient walked in requesting a neck brace for neck pain, pt recently spoke to pcp about this matter. documented in this encounter Plan of Treatment Upcoming Encounters Date Type Department Care Team (Late st Contact Info) Description 04/03/2025 3:00 PM EST Office Visit [facility] [address] [place] [address] Rut Branham MD [address] [place] [address] 04/29/2025 1:00 PM EST Telemedicine [facility] [address] [place] [address] Billy Brooke, PharmD [address] [place] [address] 06/26/2025 3:00 PM EST Office Visit [facility] [place] [address] Rut Branham MD 230 [place] [address] 06/27/2025 11:15 AM EST Office Visit [facility] 230 [place], [place] [phone] Naheed Zaman ANP 230 [place] [address] documented as of this encounter Visit Diagnoses Not on filedocumented in this encounter Additional Health Concerns Assessment Noted Time PHQ-9 Depression Total Score: 7 10/05/19 25 2:06 PM EDT documented as of this encounter Care Teams Photographic Double Relationship Specialty Start Date End Date Naheed [place]aman [place] [address] PCP - General Family Medicine 01/18/22 Real Gomez MD [address] [place] [address] 3rd [place] [address] Cardiology 10/01/24 Kalpesh Calles Outside Sales EngineerChisel Mortiser Operator 02/21/25 documented as of this encounter
--- OUTSIDE RECORDS SUMMARY | 2025-04-02 09:02 | XMS_ITS | Encounter Summary ---
Author Organization [employer] Address [address] [place] [address] 7 [place] [address] Care Team Providers Care Motor Vehicle Assembly Supervisor Name Role Phone Naheed Zaman Primary Care Provider [phone] Real Gomez MD Unavailable Reason for Referral * Consultation (Routine) - Authorized Specialty Diagnoses / Procedures Referred By Contac t Referred To Contact Pharmacy Diagnoses HTN (hypertension) Rut Branham MD 230 [place] [address] Phone: tel: fax: Referral ID Status Reason Start Date Expiration Date Visits Requested Visits Authorized [id number] Authorized Continuity of Care 03/27/2025 03/27/2026 6 6 Encounter Details Date Type Department Care Team (Late st Contact Info) Description 03/27/2025 Orders Only [facility] [address] [place] [address] Rut Branham MD 230 [place], [place] [phone] HTN (hypertension) (Primary Dx) Social History Tobacco Use Types [...] Description 04/03/2025 3:00 PM EST Office Visit [facility] [address] [place] [address] Rut Branham MD [address] [place] [address] 04/29/2025 1:00 PM EST Telemedicine [facility] [address] [place] [address] Billy Brooke, OzzieD [facility] [place] [address] 06/26/2025 3:00 PM EST Office Visit [address] [place] [address] Rut Branham MD 230 [place] [address] 06/27/2025 11:15 AM EST Office Visit [address] [address] Na[place] [address] Scheduled Referrals Name Type Priority Associated Diagnoses Orde r Schedule Referral to Pharmacy MTM Outpatient Referral Routine HTN (hypertension) Ordered: 03/27/2025 documented as of this encounter Visit Diagnoses Diagnosis HTN (hypertension)- Primary Unspecified essential hypertension documented in this encounter Additional Health Concerns Assessment Noted Time PHQ-9 Depression Total Score: 7 10/05/19 25 2:06 PM EDT documented as of this encounter Care Teams Motor Vehicle Assembly Supervisor Relationship Specialty Start Date End Date Naheed Zaman ANP [address] [place] [address] PCP - General Family Medicine 01/18/22 Real Gomez MD [address] [place] [address] 3rd [place] [address] Cardiology 10/01/24 Kalpesh Calles Formula MakerCredit Risk Manager 02/21/25 documented as of this encounter
--- OUTSIDE RECORDS SUMMARY | 2025-04-02 09:02 | XMS_ITS | Encounter Summary ---
Author Organization [facility] Address [address] [facility] 7t [place] [address] Care Team Providers Care Die Reamer Name Role Phone Naheed Zaman Primary Care Provider [phone] Real Gomez MD Unavailable Chico Kebede RN Unavailable [phone] Encounter Details Date Type Department Care Team ([facility] Contact Info) Description 07/28/2022 Abstract [facility] ADULT DENTAL 230 [place] [address] Zay Schmidt DDS 230 [place] [address] Social History Tobacco Use Types Packs/Day Years [...] Upcoming Encounters Date Type Department Care Team ([facility] Contact Info) Description 04/03/2025 3:00 PM EST Office Visit [facility] 230 [place] [address] Rut Branham MD 230 [place] [address] 04/29/2025 1:00 PM EST Telemedicine [address] [address] Billy Brooke, PharmD 230 [place] [address] 06/26/2025 3:00 PM EST Office Visit [address] [address] Rut Branham MD [address] [place] [address] 06/27/2025 11:15 AM EST Office Visit [address] [address] Naheed Zaman ANP [address] [place] [address] documented as of this encounter Visit Diagnoses Not on filedocumented in this encounter Care Teams Die Reamer Relationship Specialty Start Date End Date Naheed Zaman ANP [address] [place] [address] PCP - General Family Medicine 01/18/22 Real Gomez MD [address] [place] [address] 3rd [place] [address] Cardiology 10/01/24 Chico Kebede, APRIL [address] [place] [address] Registered Nurse Family Medicine 02/03/25 02/03/25 Kalpesh Calles Heel Seat FitterFoot Gatherer 02/21/25 documented as of this encounter
[2025-04-02 09:32] LABS: MANUAL DIFF FLAG NO
[2025-04-02 09:37] LABS: Hematocrit 34.8 % (42.0-52.0); Hemoglobin 11.6 g/dl (14.0-18.0); Imm Gran Abs Auto 0.01 X10*3/uL (0.00-0.03); Imm Gran Pct Auto 0.2 % (0.0-0.4); Lymphocytes Absolute Auto 1.4 X10*3/uL (1.2-4.9); Mean Corpuscular HGB Conc 33.3 g/dl (31.0-36.0); Mean Corpuscular Hemoglobin 29.1 pg (27.0-33.0); Mean Corpuscular Volume 87.2 fL (80.0-98.0); NRBC Abs Auto 0.000 X10*3/uL (0.0-0.012); NRBC Pct Auto 0.0 /100WBC (0.0-0.2); Platelet Count 108 X10*3/uL (160-400); Red Blood Count 3.99 X10*6/uL (4.60-5.80); White Blood Count 4.7 X10*3/uL (4.8-10.8)
[2025-04-02 09:49] LABS: Alanine Aminotransferase 31 U/L (0-40); Albumin Level 3.9 g/dL (3.5-5.0); Alkaline Phosphatase 65 U/L (39-117); Anion Gap 10 (12-20); Aspartate Amino Transferase 28 U/L (5-37); Blood Urea Nitrogen 30 mg/dL (9-16); Calcium 9.4 mg/dL (8.4-10.2); Carbon Dioxide 29 mmol/L (22-29); Chloride 105 mmol/L (96-108); Creatinine Clr Calc Pharmacy 77.2; Estimated Glomerular Filt Rate 40; Magnesium 1.5 mg/dL (1.6-2.6); Potassium 4.2 mmol/L (3.3-5.1); Sodium 140 mmol/L (135-145); Total Protein 7.4 g/dL (6.5-8.0)
[2025-04-02 09:57] LABS: NT Pro B Type Natriuretic Pept 57.3 pg/mL (<300)
[2025-04-02 09:58] LABS: Troponin-I High Sensitivity < 2.7 ng/L (<3.5-35.0)
[2025-04-02 11:49] VITALS: BP 119/66; PULSE 67; RESP 17; TEMP 36.6; O2SAT 94
[2025-04-02 12:39] VITALS: BP 119/66; PULSE 67; RESP 17; TEMP 36.6; O2SAT 94
== END 2025-04-02 12:49 | disposition home or self-care (01) ==
PROVIDERS: Physician Assistant Medical; Emergency Provider Emergency Medicine; PCP Nurse Practitioner Primary Care
DX: E86.0 Dehydration (principal); M79.2 Neuralgia and neuritis, unspecified; R07.9 Chest pain, unspecified; R06.02 Shortness of breath; R00.0 Tachycardia, unspecified; R94.31 Abnormal electrocardiogram [ECG] [EKG]; I10 Essential (primary) hypertension; E10.9 Type 1 diabetes mellitus without complications; E78.5 Hyperlipidemia, unspecified; G47.33 Obstructive sleep apnea (adult) (pediatric); Z99.89 Dependence on other enabling machines and devices; Z79.4 Long term (current) use of insulin
CPT/HCPCS: 36415; 71046; 80053; 83735; 83880; 84484; 85025; 93005; 96361; 96374; 96375; 99284; 99285; J1885; J2270; J2405

== ENCOUNTER → 2025-04-02 08:21 | Outpatient (BNV) | payer MEDICAID, SELFPAY | PROVIDERS: Emergency Provider Emergency Medicine; PCP Nurse Practitioner Primary Care; Visit Provider Internal Medicine Cardiovascular Disease | DX: R00.0 Tachycardia, unspecified (principal) | CPT/HCPCS: 93010 ==

== ENCOUNTER → 2025-04-02 09:03 | Outpatient (BNV) | payer MEDICAID, SELFPAY | PROVIDERS: PCP Nurse Practitioner Primary Care; Visit Provider Radiology Diagnostic Radiology | DX: R07.9 Chest pain, unspecified (principal) | CPT/HCPCS: 71046 ==

== ENCOUNTER 2025-04-07 08:54 | Outpatient (REF) | payer MEDICAID, SELFPAY ==
--- OUTSIDE RECORDS SUMMARY | 2025-03-27 08:00 | XMS_ITS | Encounter Summary ---
Author Organization [employer] Address [address] [place] [address] 7 [place] [address] Care Team Providers Care Security Engineer Name Role Phone Sofia Mitchell Primary Care Provider [phone] Real Gomez MD Unavailable Reason for Referral * Consultation (Routine) - Authorized Specialty Diagnoses / Procedures Referred By Contevelyn dias Referred To Contact Vascular Surgery Diagnoses Venous insufficiency of both lower extremities Sofia Mitchell ANP [address] [place] [address] Phone: tel: fax: [facility] Referral ID Status Reason Start Date Expiration Date Visits Requested Visits Authorized [id number] Authorized Specialty Services Required 04/02/2025 04/02/2026 6 6 Reason for Visit * Reason Comments Follow-up Diabetes Encounter Details Date Type Department Care Team (Latest Contact Info) Description 03/27/2025 9:00 AM EDT Office Visit [facility] [address] [place] [address] Sofia Mitchell ANP [address] [place] [address] Severe episode of recurrent major depressive disorder, without psychotic features (CMS/HCC) (HCC) (Primary Dx); Pulmonary hypertension (CMS/HCC) (HCC); Type 2 diabetes mellitus with hyperlipidemia (CMS/HCC) ; Polyneuropathy associated with underlying disease (CMS/HCC); BETSY (obstructive sleep apnea); Diabetic nephropathy with proteinuria (HCC); Primary hypertension; Mild intermittent asthma without complication; Insomnia, unspecified type; Encounter for immunization; Venous insufficiency of both lower extremities; Neck pain Social History Tobacco Use Types Packs/Day [...] Sign Reading Time Taken Comments Blood Pressure 130/80 03/27/2025 9:03 AM EDT Pulse 84 03/27/2025 9:03 AM EDT Temperature 36.2 C (97.2 F) 03/27/2025 9:03 AM EDT Respiratory Rate 14 03/27/2025 9:03 AM EDT Oxygen Saturation 98% 03/27/2025 9:03 AM EDT Inhaled Oxygen Concentration - - Weight 173 kg (382 lb) 03/27/2025 9:03 AM EDT Height 165.1 cm (5' 5 ) 03/27/2025 9:03 AM EDT Body Mass Index 63.57 03/27/2025 9:03 AM EDT documented in this encounter Progress Notes * JOSIAH Marquez - 03/27/2025 9:00 AM EDT SUBJECTIVE: Ross Navarrete is a 44 y.o. year old male who presents for follow up. Denies recent illness, injury, or hospitalization. 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 Acute Concerns: None, ongoing concerns as below Now following w/ bariatrics/wt mgmt at [facility] [place] [place]: Obesity Class 3 complicated with T2DM, BETSY, MASH - Etiology of obesity is multifactorial incluiding poor dietary habits, genetics, limited activity -Patient meets criteria for use of anti-obesity medication (AOM) given BMI and comorbid conditions of excess adiposity. Discussed in detail use of AOM as adjunct to healthy, sustainable lifestyle behavior change. Patient already taking Ozempic 0.5 mg weekly. He is unable to tolerate higher doses due to severe nausea and vomiting. A1c is better controlled however BMI remains above goal. I recommended switching therapy over Mounjaro for better glycemic control and weight loss. Additionally I willrecommend starting therapy with phentermine 15 mg daily a.m. - Begin trial of Mounjaro 2.5 mg weekly. - Begin trial phentermine 15 mg daily Recently met w/ pharmacy for medbox start: Medication Reconciliation: Reports use of the following medications that are not currently active in [facility]: ? Phentermine 15mg 1 capsule by mouth daily before breakfast ? Cosentyx 300 mg/ 150 ml: inject 150 mg subcutaneously once every 4 weeks ? Vitamin D3 2000 unit 1 capsule by mouth once per day ? Cyclobenzaprine 10 m tablet by mouth three times a day as needed for muscle spasm ? Magnesium Oxide 400 mg 1 tablet by mouth at bedtime for leg cramps, stop for loose stool ? Pregabalin 50mg 1 tablet by mouth at bedtime - Pregablin was increased to 100 mg, pending prescription (Rheum) ? Vitamin B6 250 mg 1 tablet by mouth in the evening for leg cramps. No more than 1 tablet per day. ? Mounjaro 2.5 mg: inject 2.5 mg subcutaneously once a week Denies use of the following medications that are active in [facility]: ? Ozempic, zinc Oxide ointment, polyethylene Glycol, thiamine, vitamin A, vitamin B1, vitron-C, andtriamcinolone cream. I will call GI to clarify if they are waiting to hear from richie. He has appointment there in March. Requests neck brace for prn use when his neck pain is bad He needs a new referral for vascular follow-up. Non-smoker Depression is persistent but stable. BMI Readings from Last 3 Encounters: 03/27/25 63.57 kg/m?? 01/09/25 63.57 kg/m?? 12/24/24 63.90 kg/m?? Wt Readings from Last 6 Encounters: 03/27/25 382 lb (173 kg) 01/09/25 382 lb (173 kg) 12/24/24 384 lb (174 kg) 11/22/24 394 lb (179 kg) 10/11/24 396 lb (180 kg) 10/08/24 392 lb (178 kg) Social History Social History Narrative Not on file Problem List[1] Surgical History[2] Family History[3] Review of Systems Constitutional: Positive for fatigue. Negative for chills and fever. HENT: Negative for sore throat. Respiratory: Negative for cough and shortness of breath. Cardiovascular: Negative for chest pain. Gastrointestinal: Negative for constipation and diarrhea. Endocrine: Negative for polydipsia, polyphagia and polyuria. Genitourinary: Negative for dysuria. Musculoskeletal: Positive for arthralgias, back pain and myalgias. Negative for joint swelling. Psychiatric/Behavioral: Positive for decreased concentration and dysphoric mood. Negative for sleepdisturbance. The patient is nervous/anxious. OBJECTIVE: Vitals: 03/27/25 0903 BP: 130/80 BP Location: Left arm Patient Position: Sitting BP Cuff Size: Large adult Pulse: 84 Resp: 14 Temp: 97.2 ??F (36.2 ??C) TempSrc: Oral SpO2: 98% Weight: 382 lb (173 kg) Height: 5' 5 (1.651 m) Physical Exam Constitutional: General: He is not in acute distress. Appearance: Normal appearance. He is obese. He is not ill-appearing. HENT: Head: Normocephalic and atraumatic. Eyes: Extraocular Movements: Extraocular movements intact. Cardiovascular: Rate and Rhythm: Normal rate and regular rhythm. Pulmonary: Effort: Pulmonary effort is normal. No accessory muscle usage or respiratory distress. Musculoskeletal: Comments: R knee in brace Neurological: Mental Status: He is alert and oriented to person, place, and time. Comments: Ambulates w/ cane Psychiatric: Mood and Affect: Mood is depressed. Affect is flat. Behavior: Behavior normal. ASSESSMENT/PLAN Ross was seen today for follow-up and diabetes. Diagnoses and all orders for this visit: Severe episode of recurrent major depressive disorder, without psychotic features ([facility]) ([facility]) (Primary) He will cont follow-up w/ therapy and [facility] for psychiatry Depression is relatively stable though persistent Pulmonary hypertension (CMS/HCC) (HCC) Echo via cards No change to meds Type 2 diabetes mellitus with hyperlipidemia (CMS/HCC) Started on mounjaro via weight mgmt Thus far tolerating ok A1c at goal. On statin, ARB, not on ASA Changing GLP1 did not seem to impact his GI symptoms nor did stopping ozempic in past Cont lantus 40 units daily Suspect not on sglt2i for a reason, will need to dig in chart Lab Results Component Value Date HGBA1C 5.8 (A) 01/09/2025 Neck pain Pt requests neck brace for PRN use, he says he will use sparingly Venous insuffi. Renew referral to vascular, pt established w/ Dr. Durán Polyneuropathy associated with underlying disease (CMS/HCC) As above Maintain good glucose control BETSY (obstructive sleep apnea) Cont CPAP Diabetic nephropathy with proteinuria (HCC) As above, on ARB Consider SGLT2i Primary hypertension At/near goal today, </= 130/80. Continue to encourage low salt diet, regular exercise, home BP monitoring, compliance with medications. Call clinic if BP is frequently >150/90 Go to ED/call 911 if > 170/100 and having sx such as MONTERO, visual changes, chest pain, SOB Last renal function wnl except proteinuria Previously followed w/ nephrology [facility] Results Component Value Date MICROALBCREA 344 (H) 12/23/2021 Lab Results Component Value Date MICROALBCREU 1,973.8 (H) 11/27/2023 Humalog discontinued d/t GLP1 intensification Update urine albumin ordered not yet obtained Likely recommend SGLT2i though suspect there is a reason he is not already on, will need to dig in chart. - Albumin, Random Urine W/Creatinine; Future - Basic Metabolic Panel; Future Mild intermittent asthma without complication Doing well in this regard Insomnia, unspecified type Sleep hygiene reviewed in detail: turn off screens within a few hours of bedtime, no etoh b/f bed, separate cigarette smoking as much as possible from bedtime, get regular exercise - melatonin 3 MG tablet; Take 1 tablet 30-60 min before bedtime as needed for sleep Encounter for immunization - HEPATITIS B VACCINE ADULT 20 yrs + - PCV-20 VACCINE 6 wks + This note was drafted using Ambient (AI) technology. The patient/patient's guardian has been informed and has consented to the use of this technology: Yes Follow Up: Future Appointments Date Time Provider Department Center 04/03/2025 3:00 PM Rut Branham MD MEDICINE [facility] 04/29/2025 1:00 PM Billy Brooke PharmD [facility] 06/26/2025 3:00 PM Rut Branham MD [facility] 06/27/2025 11:15 AM JOSIAH Marquez MEDICINE [facility] Medications Ordered Prior to Encounter[4] Zambian Translation: Araceli ROSSI provided Zambian interpretation. [1] Patient Active Problem List Diagnosis Diabetic nephropathy with proteinuria (HCC) HTN (hypertension) Low back pain without sciatica BETSY (obstructive sleep apnea) Polyneuropathy associated with underlying disease (CMS/HCC) Proteinuria Type 2 diabetes mellitus with hyperlipidemia (CMS/HCC) Spondylosis of lumbar region without myelopathy or radiculopathy Pure hypercholesterolemia Pulmonary hypertension (CMS/HCC) (HCC) Morbid obesity (CMS/HCC) (HCC) H. pylori infection Gout Elevated liver enzymes Arthritis CTS (carpal tunnel syndrome) Asthma Acquired pes planus Bilateral lower extremity edema Periodontal disease Severe episode of recurrent major depressive disorder, without psychotic features (CMS/HCC) (HCC) Opioid use disorder MICHAEL (generalized anxiety disorder) Headache Venous stasis dermatitis of both lower extremities Venous insufficiency of both lower extremities Candidiasis of perineum Acute torn meniscus of knee, right, sequela History of tooth extraction [2] Past Surgical History: Procedure Laterality Date APPENDECTOMY HERNIA REPAIR [3] Family History Problem Relation Name Age of Onset Cancer Mother bladder Cancer Maternal Grandfather colon [4] Current Outpatient Medications on File Prior to Visit Medication Sig Dispense Refill Alcohol Swabs (Alcohol Prep) 70 % pads USE FOUR TIMES DAILY WITH INSULIN ammonium lactate (Lac-Hydrin) 12 % lotion APPLY TOPICALLY IF NEEDED FOR DRY SKIN. ARIPiprazole (Abilify) 10 MG tablet Take 1.5 tablets (15 mg) by mouth Once per day. 45 tablet 0 atorvastatin (Lipitor) 10 MG tablet Take 1 tablet (10 mg) by mouth at bedtime. 90 tablet 3 betamethasone valerate (Valisone) 0.1 % cream APPLY TOPICALLY TWICE DAILY IN THE MORNING AND AT BEDTIME NEEDED DRY SKIN 45 g 2 Blood Glucose Monitoring Suppl ([employer] [place] Lite) w/Device kit TEST BLOOD SUGAR FOUR TIMES DAILY Blood Pressure Monitor kit 1 kit in the morning. 1 kit 0 chlorhexidine (Peridex) 0.12 % solution Swish 15 mL morning and night for 1 minute. Spit, do not swallow. Do not eat or drink for 30 minutes following use. 473 mL 0 Continuous Glucose Protective Signal Operations Supervisor ([employer] [place] 2 [place]) device Scan sensor every 8 hours 1 each 0 Continuous Glucose Sensor (FreeStyle Casey 2 Sensor) [facility] Apply 1 sensor every 14 days 2 each 11 Cosentyx Sensoready, 300 MG, 150 MG/ML solution auto-injector INJECT 150 MG SUBCUTANEOUSLY ONCE EVERY 4 WEEKS (MAINTENANCE DOSE AFTER LOADING DOSE) cyclobenzaprine (Flexeril) 10 MG tablet take 1 tablet by mouth three times a day as needed for muscle spasm D3 Super Strength 50 MCG (2000 UT) capsule Take 1 capsule by mouth Once per day. EPINEPHrine (Epipen) 0.3 MG/0.3ML injection syringe INJECT INTRAMUSCULARLY DIRECTED ON PACKAGE AND GO TO EMERGENCY ROOM 2 each 0 esomeprazole (NexIUM) [address] capsule Take 1 capsule (40 mg) by mouth before breakfast. Do not open capsule. 90 capsule 1 FLUoxetine (PROzac) 20 MG capsule TAKE 3 CAPSULES BY MOUTH EVERY MORNING 90 capsule 1 FREESTYLE LITE test strip TEST BLOOD SUGAR FOUR TIMES DAILY glucose 4 g chewable tablet CHEW 4 TABLETS NEEDED LOW BLOOD SUGAR glucose blood (FREESTYLE LITE) test strip check fingerstick 4 times a day insulin glargine (Lantus SoloStar) 100 UNIT/ML pen INJECT 40 UNITS SUBCUTANEOUSLY AT BEDTIME 15 mL 3 Lidoderm 5 % patch APPLY 1 PATCH TOPICALLY DAILY LEAVE ON MOST PAINFUL AREA FOR UP TO 12 HRS MAGnesium-Oxide 400 (240 Mg) MG tablet TAKE 1 TABLET BY MOUTH AT BEDTIME FOR LEG CRAMPS, STOP FOR LOOSE STOOL meloxicam (Mobic) 15 MG tablet TAKE 1 TABLET BY MOUTH EVERY DAY NEEDED FOR PAIN 30 tablet 3 Mounjaro 2.5 MG/0.5ML solution auto-injector INJECT ONE PEN (=2.5MG) SUBCUTANEOUSLY ONCE A WEEK DIRECTED naloxone (Narcan) 4 mg/0.1 mL nasal spray Administer 0.1 mL into affected nostril(s). olmesartan-hydroCHLOROthiazide (Benicar HCT) 40-12.5 MG tablet Take 1 tablet by mouth Once per day.90 tablet 3 phentermine 15 MG capsule Take 15 mg by mouth before breakfast. pregabalin (Lyrica) 50 MG capsule take 1 capsule by mouth everyday at bedtime pyridoxine (Vitamin B-6) 250 MG tablet TAKE 1 TABLET BY MOUTH IN THE EVENING FOR LEG CRAMPS. NO MORE THAN 1 TABLET (250mg) PER DAY Suboxone 8-[address] 3 Film under the tongue Once per day. 84 Film 2 Sure Comfort Pen Harbert 31G X 5 MM misc USE FOUR TIMES DAILY WITH INSULIN tamsulosin (Flomax) 0.4 MG 24 hr capsule TAKE 1 CAPSULE BY MOUTH DAILY 30 MINUTES AFTER THE SAME MEAL EVERY DAY 60 capsule 3 TRUEplus Lancets 33G misc TEST BLOOD SUGAR FOUR TIMES DAILY No current facility-administered medications on file prior to visit. documented in this encounter Miscellaneous Notes * Addendum Note - JOSIAH Marquez - 03/27/2025 9:00 AM EDTAddended by: SOFIA MITCHELL on: 04/02/2025 11:18 AM Modules accepted: Orders documented in this encounter Plan of Treatment Upcoming Encounters Date Type Department Care Team (Late st Contact Info) Description 04/29/2025 1:00 PM EST Telemedicine [facility] [address] [place] [id number] Billy Brooke, PharmD [address] [place] [phone] 06/26/2025 3:00 PM EST Office Visit [facility] [address] [place] [phone] Rut Branham MD [address] [place] [address] Scheduled Orders Name Type Priority Associated Diagnoses Orde r Schedule Albumin, Random Urine W/Creatinine Lab Routine Primary hypertension Expected: 03/27/2025 (Approximate), Expires: 03/27/2026 Basic Metabolic Panel Lab Routine Primary hypertension Expected: 03/27/2025 (Approximate), Expires: 03/27/2026 Scheduled Referrals Name Type Priority Associated Diagnoses Orde r Schedule Referral to Vascular Surgery Outpatient Referral Routine Venous insufficiency of both lower extremities Expected: 04/02/2025 (Approximate), Expires: 04/02/2026 documented as of this encounter Visit Diagnoses Diagnosis Severe episode of recurrent major depressive disorder, without psychotic features (CMS/HCC) (HCC)- Primary Pulmonary hypertension (CMS/HCC) (HCC) Other chronic pulmonary heart diseases Type 2 diabetes mellitus with hyperlipidemia (CMS/HCC) Polyneuropathy associated with underlying disease (CMS/HCC) BETSY (obstructive sleep apnea) Obstructive sleep apnea (adult) (pediatric) Diabetic nephropathy with proteinuria (HCC) Primary hypertension Unspecified essential hypertension Mild intermittent asthma without complication Insomnia, unspecified type Encounter for immunization Venous insufficiency of both lower extremities Neck pain Cervicalgia documented in this encounter Additional Health Concerns Assessment Noted Time PHQ-9 Depression Total Score: 7 10/05/19 25 2:06 PM EDT documented as of this encounter Care Teams Security Engineer Relationship Specialty Start Date End Date Sofia Mitchell ANP [address] [place] [id number] PCP - General Family Medicine 01/18/22 Real Gomez MD [address] [place] [address] [address] [place] [address] Cardiology 10/01/24 Kalpesh Calles [employer] Material InspectorProcessing Spec 02/21/25 documented as of this encounter
--- OUTSIDE RECORDS SUMMARY | 2025-04-03 15:00 | XMS_ITS | Encounter Summary ---
Author Organization [employer] Address [address] [facility] [address] 7t [place] [address] Care Team Providers Care Government Guard Name Role Phone Naheed Zaman Primary Care Provider [phone] Real Gomez MD Unavailable Karla Mattson Unavailable Reason for Visit * Reason Comments OBAT Encounter Details Date Type Department Care Team (Latest Contact Info) Description 04/03/2025 3:00 PM EST Office Visit [facility] MEDICINE 230 [place] [address] Rut Branham MD 230 [place] [address] Uncomplicated opioid dependence (CMS/HCC) (HCC) (Primary Dx) [...] enrolled in behavioral health services, therapist at [facility]. RAMONE GAY reviewed by provider. LAST [...] now seeing a weight loss doctor in [place], who is prescribing Mounaro and phentermine. He [...] for this visit: Uncomplicated opioid dependence (CMS/HCC) ([facility]) Counseling provided RE: importance of multiple sources [...] Info) Description 04/29/2025 1:00 PM EST Telemedicine [facility] MEDICINE [address] [place] [address] Billy Brooke, PharmD 230 [place], [place] [phone] 06/26/2025 3:00 PM EST Office Visit [facility] MEDICINE 230 [place], [place] [phone] Rut Branham MD 230 [place], [place] [phone] documented as of this encounter Procedures Procedure [...] as of this encounter Care Teams Government Guard Relationship Specialty Start Date End Date Naheed Zaman ANP 230 [place] [address] PCP - General Family Medicine 01/18/22 Real Gomez MD [address] [place] [address] Drive 3rd [place] [address] Cardiology 10/01/24 Karla Mattson 04/03/25 04/04/25 Kalpesh Calles Nascar DriverBid Clerk 02/21/25 documented as of this encounter
--- OUTSIDE RECORDS SUMMARY | 2025-04-04 14:30 | XMS_ITS | Encounter Summary ---
Author Organization [employer] Address 75 [facility] 7t [place] [address] Care Team Providers Care Spaghetti Press Helper Name Role Phone Naheed Zaman Primary Care Provider [phone] Real Gomez MD Unavailable Karla Mattson Unavailable Reason for Visit * Reason Comments Annual Exam Encounter Details Date Type Department Care Team (Latest Contact Info) Description 04/04/2025 2:30 PM EST Office Visit [facility] MEDICINE [address] [place] [address] Naheed Zaman ANP [address] [place] [address] Hypomagnesemia (Primary Dx); KUNAL (acute kidney injury); Severe episode of recurrent major depressive disorder, without psychotic features (CMS/HCC) (HCC); Diabetic nephropathy with proteinuria (HCC); Pulmonary hypertension (CMS/HCC) (HCC); Type 2 diabetes mellitus with hyperlipidemia (CMS/HCC) ; Anemia, unspecified type; Nocturnal leg cramps; BETSY (obstructive sleep apnea); Class 3 severe obesity with serious comorbidity and body mass index (BMI) of 60.0 to 69.9 in adult, unspecified obesity type (HCC) Social History Tobacco Use Types Packs/Day Years [...] Reading Time Taken Comments Blood Pressure 130/80 04/04/2025 2:28 PM EST Pulse 69 04/04/2025 2:28 PM EST Temperature 37.2 C (98.9 F) 04/04/2025 2:28 PM EST Respiratory Rate 11 04/04/2025 2:28 PM EST Oxygen Saturation 98% 04/04/2025 2:28 PM EST Inhaled Oxygen Concentration - - Weight 178 kg (392 lb) 04/04/2025 2:28 PM EST Height 165.1 cm (5' 5 ) 04/04/2025 2:28 PM EST Body Mass Index 65.23 04/04/2025 2:28 PM EST documented in this encounter Progress Notes * JOSIAH Marquez - 04/04/2025 2:30 PM EST SUBJECTIVE: Ross Navarrete is a 44 y.o. year old male who presents for ED follow-up. 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 Now following w/ bariatrics/wt mgmt at [facility] Acute Concerns: ED visit for CP, SOB, R sided body pain. Labs w/ hypomag, KUNAL. Recommended to follow-up w/ neurology for involuntary hand spasms. He has already scheduled a visit there. Cramps/muscle spasm happeningrandomly. Throws water if he is carrying when it happens. Used to take magnesium 400g nightly for muscle cramps. Says he is taking this and requests switch to capsules as the tablets feel like they get stuck in his throat. Change mag to capsule Meloxicam hold this weekend He will request refills of phentermine and moujaro from [facility] but if this does not work, I will refill. He needs PT-1 for [place] visits. Frustrated as he applied and got denied again for SSI. 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 Depression and anxiety, along with his chronic joint pain, se verely limit his ability to leave the house and he would not be able to work in his current condition. Estimated Creatinine Clearance: 78.2 mL/min (A) (by C-G formula based on SCr of 1.86 mg/dL (H)). Social History Social History Narrative Not on file Problem List[1] Surgical History[2] Family History[3] Review of Systems Constitutional: Negative for fatigue and fever. HENT: Negative for sore throat. Eyes: Negative for visual disturbance. Respiratory: Negative for cough. Cardiovascular: Negative for leg swelling. Gastrointestinal: Negative for abdominal pain. Musculoskeletal: Positive for arthralgias and myalgias. Negative for back pain. Skin: Negative for color change. Neurological: Positive for weakness. Negative for numbness. Cramps OBJECTIVE: Vitals: 04/04/25 1428 BP: 130/80 BP Location: Right arm Patient Position: Sitting BP Cuff Size: Large adult Pulse: 69 Resp: 11 Temp: 98.9 ??F (37.2 ??C) TempSrc: Oral SpO2: 98% Weight: 392 lb (178 kg) Height: 5' 5 (1.651 m) Physical [...] or respiratory distress. Musculoskeletal: Right lower leg: No edema. Left lower leg: No edema. Neurological: Mental Status: He is alert and oriented to person, place, and time. Mental status is at baseline. Comments: Ambulates w/ cane Psychiatric: Mood and Affect: Mood normal. Behavior: Behavior normal. ASSESSMENT/PLAN Ross was seen today for ED f/u. Diagnoses and all orders for this visit: Hypomagnesemia (Primary) Change mag to capsule Recheck: - Magnesium; Future - Magnesium Oxide -Mg Supplement 400 MG capsule; 1 capsule at bedtime for cramps, stop if loose stool occurs KUNAL (acute kidney injury) Meloxicam hold this weekend If persists will need to adjust olmesartan-hydrochlorothiazide especially as pt reports meloxicam is the only med that helps his pain any (also on lyrica) Encouraged good hydration with water and avoidance of NSAIDs (naproxen, aleve, ibuprofen, advil, motrin etc.). Severe episode of recurrent major depressive disorder, without psychotic features (CMS/HCC) (HCC) Stable but persists. Cont fluoxetine for now. Diabetic nephropathy with proteinuria (HCC) Will cont to monitor. Recheck labs next week. Consider jardiance pending repeat labs. Pt does not however want to take more pills. Type 2 diabetes mellitus with hyperlipidemia (CMS/HCC) On mounjaro via wt mgmt A1c at goal Foot exam at follow-up Anemia, unspecified type - CBC auto differential; Future Nocturnal leg cramps - Magnesium Oxide -Mg Supplement 400 MG capsule; 1 capsule at bedtime for cramps, stop if loose stool occurs BETSY (obstructive sleep apnea) Cont to use and benefit from CPAP, follows w/ sleep medicine Class 3 severe obesity with serious comorbidity and body mass index (BMI) of 60.0 to 69.9 in adult,unspecified obesity type (HCC) He will request refills of phentermine and mounjaro from [facility] but if this does not work, I will refill. He needs PT-1 for [place] visits. Requested PT-1 from Future Appointments Date Time Provider Department Center 04/29/2025 1:00 PM Billy Brooke PharmD MEDICINE [facility] 06/26/2025 3:00 PM Rut Branham MD [facility] Follow Up: as scheduled Medications Ordered Prior to Encounter[4] Araceli ROSSI provided Lao interpretation. [1] Patient Active Problem List Diagnosis [...] 45 g 2 Blood Glucose Monitoring Suppl (Function SpaceStyle [place] Lite) w/Device kit TEST BLOOD SUGAR FOUR TIMES DAILY Blood Pressure Monitor kit 1 kit in the morning. 1 kit 0 chlorhexidine (Peridex) 0.12 % solution Swish 15 mL morning and night for 1 minute. Spit, do not swallow. Do not eat or drink for 30 minutes following use. 473 mL 0 Continuous Glucose Pattern Marker (FreeStyle Casey 2 [place]) device Scan sensor every 8 hours 1 each 0 Continuous Glucose Sensor (FreeStyle Casey 2 Sensor) [facility] Apply 1 sensor every 14 days 2 [...] PAINFUL AREA FOR UP TO 12 HRS melatonin 3 MG tablet Take 1 tablet 30-60 min before bedtime as needed for sleep 30 tablet 2 meloxicam (Mobic) 15 MG tablet TAKE 1 [...] day. 84 Film 2 Sure Comfort Pen [place] 31G X 5 MM misc USE FOUR TIMES DAILY WITH INSULIN tamsulosin (Flomax) 0.4 MG 24 hr capsule TAKE 1 CAPSULE BY MOUTH DAILY 30 MINUTES AFTER THE SAME MEAL EVERY DAY 60 capsule 3 TRUEplus Lancets 33G misc TEST BLOOD SUGAR FOUR TIMES DAILY [DISCONTINUED] MAGnesium-Oxide 400 (240 Mg) MG tablet TAKE 1 TABLET BY MOUTH AT BEDTIME FOR LEG CRAMPS, STOP FOR LOOSE STOOL No current facility-administered medications on file prior to visit. documented in this encounter Plan of Treatment Upcoming Encounters Date Type Department Care Team (Late st Contact Info) Description 04/29/2025 1:00 PM EST Telemedicine [facility] MEDICINE [address] [place] [address] Billy Brooke, PharmD [address] [place] [address] 06/26/2025 3:00 PM EST Office Visit [facility] MEDICINE [address] [place] [address] uRt Branham MD [address] [place] [address] Scheduled Orders Name Type Priority Associated Diagnoses Orde r Schedule Magnesium Lab Routine Hypomagnesemia Expected: 04/04/2025, Expires: 04/04/2026 CBC auto differential Lab Routine Anemia, unspecified type Expected: 04/04/2025 (Approximate), Expires: 04/04/2026 documented as of this encounter Visit Diagnoses Diagnosis Hypomagnesemia- Primary Disorders of magnesium metabolism KUNAL (acute kidney injury) Severe episode of recurrent major depressive disorder, without psychotic features ([facility]) ([facility]) Diabetic nephropathy with proteinuria (HCC) Pulmonary hypertension ([facility]) (HCC) Other chronic pulmonary heart diseases Type 2 diabetes mellitus with hyperlipidemia ([facility]) Anemia, unspecified type Nocturnal leg cramps BETSY (obstructive sleep apnea) Obstructive sleep apnea (adult) (pediatric) Class 3 severe obesity with serious comorbidity and body mass index (BMI) of 60.0 to 69.9 in adult, unspecified obesity type (HCC) documented in this encounter Additional Health Concerns Assessment Noted Time PHQ-9 Depression Total Score: 7 10/05/19 25 2:06 PM EDT documented as of this encounter Care Teams Spaghetti Press Helper Relationship Specialty Start Date End Date Naheed Zaman ANP [address] [place] [phone] PCP - General Family Medicine 01/18/22 Real Gomez MD [address] [place] [address] [address] [place] [address] Cardiology 10/01/24 Karla Mattson 04/03/25 04/04/25 Kalpesh Calles Alternative Financing SpecialistUtility Operator Yarn 02/21/25 documented as of this encounter
--- OUTSIDE RECORDS SUMMARY | 2025-04-07 09:28 | XMS_ITS | Encounter Summary ---
Author Organization [employer] Address [address] [facility] 7t [place] [address] Care Team Providers Care Core Microarchitect Name Role Phone Naheed Zaman Primary Care Provider [phone] Real Gomez MD Unavailable Karla Mattson Unavailable Reason for Visit * Reason Onset Date Comments Nurse Triage 04/03/2025 Encounter Details Date Type Department Care Team (Late st Contact Info) Description 04/03/2025 Telephone [facility] MEDICINE [address] [place] [address] Naheed Zaman ANP [address] [place] [address] Nurse Triage Social History Tobacco Use Types [...] encounter Miscellaneous Notes * Telephone Encounter - Jordon Hull RN - 04/03/2025 2:33 PM EST TC placed to patient [phone] using S #ID [id number] regarding below message. RN left an VM for the patient to Nurse triage line. * Telephone Encounter - Felipe Stiles - 04/03/2025 11:46 AM EST Patient calling to report ED visit on : Date: 04/02 Hospital: [facility] Seen for: chest pain , shortness of breathe, right side body pain Symptomatic Yes *if yes message should go to Triage Patient advised will forward to team nurse for follow up Contact pt at [phone] (liberian) documented in this encounter Plan of Treatment Upcoming Encounters Date Type Department Care Team (Late st Contact Info) Description 04/29/2025 1:00 PM EST Telemedicine [facility] [address] [place] [phone] Billy Brooke, PharmD [address] [place] [address] 06/26/2025 3:00 PM EST Office Visit [facility] [address] [place] [phone] Rut Branham MD [address] [place] [address] documented as of this encounter Visit Diagnoses Not on filedocumented in this encounter Additional Health Concerns Assessment Noted Time PHQ-9 Depression Total Score: 7 10/05/19 25 2:06 PM EDT documented as of this encounter Care Teams Core Microarchitect Relationship Specialty Start Date End Date Naheed Zaman ANP [address] [place] [phone] PCP - General Family Medicine 01/18/22 Real Gomez MD [address] [place] [address] 3rd [place] [address] Cardiology 10/01/24 Karla Mattson 04/03/25 04/04/25 Kalpesh Calles Mailroom CoordinatorRoad Engineer Freight 02/21/25 documented as of this encounter
--- OUTSIDE RECORDS SUMMARY | 2025-04-07 09:28 | XMS_ITS | Encounter Summary ---
Author Organization [employer] Address [address] [facility] [address]t [place] [address] Care Team Providers Care Signal Tower Director Name Role Phone Naheed Zaman Primary Care Provider [phone] Real Gomez MD Unavailable Chico Kebede RN Unavailable [phone] Karla Mattson Unavailable Reason for Visit * Reason Comments Med Refill Encounter Details Date Type Department Care Team (Late st Contact Info) Description 09/26/2024 Refill [facility] [address] [place] [address] Desirae Cowan MD [address] [place] [address] Social History Tobacco Use Types Packs/Day Years [...] Info) Description 04/29/2025 1:00 PM EST Telemedicine [facility] MEDICINE [address] [place] [phone] Billy Brooke, PharmD [address] [place] [address] 06/26/2025 3:00 PM EST Office Visit [facility] MEDICINE [address] [place] [phone] Rut Branham MD [address] [place] [phone] documented as of this encounter Visit Diagnoses Not on filedocumented in this encounter Additional Health Concerns Assessment Noted Time PHQ-9 Depression Total Score: 25 024 8:12 AM EDT documented as of this encounter Care Teams Signal Tower Director Relationship Specialty Start Date End Date Naheed Zaman ANP [address] [place] [phone] PCP - General Family Medicine 01/18/22 Real Gomez MD [address] [place] [address] 3rd [place] [address] Cardiology 10/01/24 Chico Kebede, APRIL [address] [place] [address] Registered Nurse Family Medicine 02/03/25 02/03/25 Karla Mattson 04/03/25 04/04/25 Kalpesh Calles Tooth Cutter Contact WheelGas System Operator 02/21/25 documented as of this encounter
--- OUTSIDE RECORDS SUMMARY | 2025-04-07 09:28 | XMS_ITS | Encounter Summary ---
Author Organization [employer] Address 75 [facility] 7t [place] [address] Care Team Providers Care Oracle Software Engineer Name Role Phone Naheed Zaman Primary Care Provider [phone] Real Gomez MD Unavailable Karla Mattson Unavailable Encounter Details Date Type Department Care Team (Latest Contact Info) Description 04/04/2025 Travel Social History Tobacco Use Types Packs/Day [...] Info) Description 04/29/2025 1:00 PM EST Telemedicine [facility] MEDICINE [address] [place] [phone] Billy Brooke, PharmD [address] [place] [phone] 06/26/2025 3:00 PM EST Office Visit [facility] MEDICINE [address] [place] [address] Rut Branham MD [address] [place] [phone] documented as of this encounter Visit Diagnoses Not on filedocumented in this encounter Additional Health Concerns Assessment Noted Time PHQ-9 Depression Total Score: 7 10/05/19 25 2:06 PM EDT documented as of this encounter Care Teams Oracle Software Engineer Relationship Specialty Start Date End Date Naheed Zaman ANP [address] [place] [address] PCP - General Family Medicine 01/18/22 Real Gomez MD [address] 3rd [place] [address] Cardiology 10/01/24 Karla Mattson 04/03/25 04/04/25 Kalpesh Calles Disbursement ClerkBoom Man 02/21/25 documented as of this encounter
--- OUTSIDE RECORDS SUMMARY | 2025-04-07 09:28 | XMS_ITS | Encounter Summary ---
Author Organization [employer] Address 75 [facility] 7t [place] [address] Care Team Providers Care Casing Trimmer Name Role Phone Naheed Zaman Primary Care Provider [phone] Real Gomez MD Unavailable Karla Mattson Unavailable Encounter Details Date Type Department Care Team (Latest Contact Info) Description 04/03/2025 Travel Social History Tobacco Use Types Packs/Day [...] Info) Description 04/29/2025 1:00 PM EST Telemedicine [facility] MEDICINE [address] [place] [phone] Billy Brooke, PharmD [address] [place] [address] 06/26/2025 3:00 PM EST Office Visit [facility] MEDICINE [address] [place] [phone] Rut Branham MD [address] [place] [phone] documented as of this encounter Visit Diagnoses Not on filedocumented in this encounter Additional Health Concerns Assessment Noted Time PHQ-9 Depression Total Score: 7 10/05/19 25 2:06 PM EDT documented as of this encounter Care Teams Casing Trimmer Relationship Specialty Start Date End Date Naheed Zaman ANP [address] [place] [address] PCP - General Family Medicine 01/18/22 Real Gomez MD [address] 3rd [place] [address] Cardiology 10/01/24 Karla Mattson 04/03/25 04/04/25 Kalpesh Calles Green Building ArchitectHumanities Teacher 02/21/25 documented as of this encounter
--- OUTSIDE RECORDS SUMMARY | 2025-04-07 09:28 | XMS_ITS | Encounter Summary ---
Author Organization [employer] Address [address] 7[address] [place] [address] Care Team Providers Care Claim Taker Name Role Phone Naheed Zaman Primary Care Provider Real Gomez MD Unavailable Karla Mattson Unavailable Reason for Visit * Reason Comments Care Coordination Communication to pts Assigned CP Coordinator Encounter Details Date Type Department Care Team (Latest Contact Info) Description 04/04/2025 Patient Outreach [facility] CHC MED & PEDS [address] [place] [address] Naheed Zaman ANP [address] [place] [address] Care Coordination (Communication to pts Assigned CP Coordinator ) Social History Tobacco Use Types Packs/Day [...] as of this encounter Progress Notes * Karla Mattson - 04/04/2025 2:05 PM EST Marley, I am writing to you as our records indicate that the following patient is engaged in your program: Patient Ross Navarrete 1980.This email is to notify you that we have received notification that the patient [place] [facility] [place] . The patient has been outreached by the [facility]'s triage nurse for a status check, but was unsuccessful. If you are able to connect with the patient, please advise the patient to contact the [facility] for an ED follow up with the provider. If there are any questions or concerns, please feel free to reach out to me. Thank You documented in this encounter Plan of Treatment Upcoming Encounters Date Type Department Care Team ([facility] st Contact Info) Description 04/29/2025 1:00 PM EST Telemedicine [facility] MEDICINE [address] [place], [place] [phone] Billy Brooke, PharmD [address] [place], [place] [phone] 06/26/2025 3:00 PM EST Office Visit [facility] MEDICINE [address] [facility] [place], [place] [phone] Rut Branham MD 230 [place], [place] [phone] documented as of this encounter Visit Diagnoses Not on filedocumented in this encounter Additional Health Concerns Assessment Noted Time PHQ-9 Depression Total Score: 7 10/05/19 25 2:06 PM EDT documented as of this encounter Care Teams Claim Taker Relationship Specialty Start Date End Date Naheed Zaman ANP [address] [place], [place] [phone] PCP - General Family Medicine 01/18/22 Real Gomez MD [address] [place] [address] 3rd [place] [address] Cardiology 10/01/24 Karla Mattson 04/03/25 04/04/25 Kalpesh Calles Cancer SpecMetal Mockup Maker 02/21/25 documented as of this encounter
--- OUTSIDE RECORDS SUMMARY | 2025-04-07 09:28 | XMS_ITS | Encounter Summary ---
Author Organization [employer] Address [address] 7[address] [place] [address] Care Team Providers Care Dye Mixer Name Role Phone Naheed Zaman Primary Care Provider [phone] Real Gomez MD Unavailable Karla Mattson Unavailable Reason for Visit * Reason Onset Date Comments ER Follow-up 04/02/2025 Encounter Details Date Type Department Care Team (Latest Contact Info) Description 04/02/2025 Results Follow-Up [facility] MEDICINE [address] [place] [address] Naheed Zaman ANP [address] [place] [address] CBC auto differential, Comprehensive Metabolic Panel, Magnesium, Additional followed-up results: 2 Social History Tobacco Use Types Packs/Day Years [...] Telephone Encounter - Arlette Hill RN - 04/04/2025 9:35 AM EST Telephone call placed to pt utilizing S #[id number] for ED status check. Pt reports he received 2 bagsIV fluids in ED. Still isn't feeling well. Having generalized body pain. Worst is in his hips, heels, neck, and chest. He reports it has not worsened or improved, it is the same as when he was in theED. Explained what an KUNAL is and possible causes. Pt has not taken his blood pressure yet today. Adv ised if having chest pain, should check his blood pressure. Pt states it is the same as the hospital. Pt has an appointment with PCP for today at 2:30. He is anticipating discussing then. Pt stronglyencouraged if severe CP, elevated blood pressure, chest pain that radiates, decreased urination, dark urine, return to the ED. Pt verbalized understanding. * Telephone Encounter - Arlette Hill RN - 04/02/2025 10:43 AM EST Meditech checked. Pt currently in [facility] ED. Will retask to do status check upon discharge * Telephone Encounter - Arlette Hill RN - 04/02/2025 10:40 AM EST ----- Message from Naheed Zaman sent at 04/02/2025 10:29 AM EST ----- Pt w/ KUNAL and hypomag, I assume he is at ED, no notes yet in chart. Please follow for ED f/u. ----- Message ----- From: Interface, Lab Results In Sent: 04/02/2025 9:38 AM EST To: JOSIAH Marquez * Result Encounter Note - JOSIAH Marquez - 04/02/2025 10:29 AM EST Pt w/ KUNAL and hypomag, I assume he is at ED, no notes yet in chart. Please follow for ED f/u. documented in this encounter Plan of Treatment Upcoming Encounters Date Type Department Care Team (Late st Contact Info) Description 04/29/2025 1:00 PM EST Telemedicine [facility] MEDICINE [address] [place] [phone] Billy Brooke, PharmD [address] [place] [phone] 06/26/2025 3:00 PM EST Office Visit [facility] MEDICINE [address] [place] [phone] Rut Branham MD [address] [place] [address] documented as of this encounter Visit Diagnoses Not on filedocumented in this encounter Additional Health Concerns Assessment Noted Time PHQ-9 Depression Total Score: 7 10/05/19 25 2:06 PM EDT documented as of this encounter Care Teams Dye Mixer Relationship Specialty Start Date End Date Naheed Zaman ANP [address] [place] [address] PCP - General Family Medicine 01/18/22 Real Gomez MD [address] [place] [address] 3rd [place] [address] Cardiology 10/01/24 Karla Mattson 04/03/25 04/04/25 Kalpesh Calles Lining Parts SewerCarpet Winder 02/21/25 documented as of this encounter
--- OUTSIDE RECORDS SUMMARY | 2025-04-07 09:28 | XMS_ITS | Encounter Summary ---
Author Organization [employer] Address [address] [facility] 7t [place] [address] Care Team Providers Care Mural Painter Name Role Phone Naheed Zaman Primary Care Provider [phone] Real Gomez MD Unavailable Chico Kebede RN Unavailable [phone] Karla Mattson Unavailable Reason for Visit * Reason Comments Med Refill Encounter Details Date Type Department Care Team (Late st Contact Info) Description 08/18/2023 Refill [facility] MEDICINE [address] [place], [place] [phone] Naheed Zaman ANP [address] [place], [place] [phone] Chronic low back pain without sciatica, unspecified [...] Info) Description 04/29/2025 1:00 PM EST Telemedicine [facility] MEDICINE [address] [place] [phone] Billy Brooke, PharmD [address] [place] [phone] 06/26/2025 3:00 PM EST Office Visit [facility] MEDICINE [address] [place] [phone] Rut Branham MD [address] [place] [phone] documented as of this encounter Visit Diagnoses Diagnosis Chronic low back pain without sciatica, unspecified back pain laterality documented in this encounter Additional Health Concerns Assessment Noted Time PHQ-9 Depression Total Score: 6 11/19/19 23 3:29 PM EDT documented as of this encounter Care Teams Mural Painter Relationship Specialty Start Date End Date Naheed Zaman ANP [address] [place] [phone] PCP - General Family Medicine 01/18/22 Real Gomez MD [address] 3rd [place] [address] Cardiology 10/01/24 Chico Kebede, RN [address] [place] [phone] Registered Nurse Family Medicine 02/03/25 02/03/25 Karla Mattson 04/03/25 04/04/25 Kalpesh Calles Lamp ReplacerElevator Dispatcher 02/21/25 documented as of this encounter
--- OUTSIDE RECORDS SUMMARY | 2025-04-07 09:28 | XMS_ITS | Encounter Summary ---
Author Organization [employer] Address [address] 7[address] [place] [address] Care Team Providers Care Short Filler Bunch Machine Operator Name Role Phone Naheed Zaman Primary Care Provider [phone] Real Gomez MD Unavailable Karla Mattson Unavailable Reason for Visit * Reason Comments Care Coordination [facility] E D follow up Encounter Details Date Type Department Care Team (Latest Contact Info) Description 04/03/2025 Patient Outreach [facility] CHC MED & PEDS [address] [place] [address] Naheed Zaman ANP [address] [place] [address] Care Coordination ([facility] ED follow up) Social History Tobacco Use Types Packs/Day Years [...] encounter Progress Notes * Karla Mattson - 04/03/2025 10:48 AM EST [facility] assigned patient [place] [facility] [place]. ED visit note has been scanned into patient's chart. Notification sent to the Clinical team nurses to follow up with patient for ED status check and medication reconciliation. * Lela Witt RN - 04/03/2025 10:48 AM EST Pt has scheduled PE with PCP today 04/04/2025 documented in this encounter Plan of Treatment Upcoming Encounters Date Type Department Care Team (Late st Contact Info) Description 04/29/2025 1:00 PM EST Telemedicine [facility] MEDICINE 230 [place] [address] Billy Brooke, PharmD [address] [place] [address] 06/26/2025 3:00 PM EST Office Visit [facility] MEDICINE [address] [place], [place] [phone] Rut Branham MD [address] [place], [place] [phone] documented as of this encounter Visit Diagnoses Not on filedocumented in this encounter Additional Health Concerns Assessment Noted Time PHQ-9 Depression Total Score: 7 10/05/19 25 2:06 PM EDT documented as of this encounter Care Teams Short Filler Bunch Machine Operator Relationship Specialty Start Date End Date Naheed Zaman ANP [address] [place], [place] [phone] PCP - General Family Medicine 01/18/22 Real Gomez MD [address] [place] [address] 3rd [place] [address] Cardiology 10/01/24 Karla Mattson 04/03/25 04/04/25 Kalpesh Calles Coal Pulverizing OperatorInstaller Metal Flooring 02/21/25 documented as of this encounter
--- OUTSIDE RECORDS SUMMARY | 2025-04-07 09:28 | XMS_ITS | Encounter Summary ---
Author Organization [employer] Address [address] [facility] 7t [place] [address] Care Team Providers Care Highway Maintenance Worker Name Role Phone Naheed Zaman Primary Care Provider [phone] Real Gomez MD Unavailable Karla Mattson Unavailable Encounter Details Date Type Department Care Team ([facility] st Contact Info) Description 04/03/2025 Patient Outreach [facility] MEDICINE 230 [place] [address] Naheed Zaman ANP [address] [place] [address] Social History Tobacco Use Types Packs/Day Years [...] Info) Description 04/29/2025 1:00 PM EST Telemedicine [facility] MEDICINE [address] [place] [phone] Billy Brooke, PharmD [address] [place] [phone] 06/26/2025 3:00 PM EST Office Visit [facility] MEDICINE [address] [place] [address] Rut Branham MD [address] [place] [phone] documented as of this encounter Visit Diagnoses Not on filedocumented in this encounter Additional Health Concerns Assessment Noted Time PHQ-9 Depression Total Score: 7 10/05/19 25 2:06 PM EDT documented as of this encounter Care Teams Highway Maintenance Worker Relationship Specialty Start Date End Date Naheed Zaman ANP [address] [place] [address] PCP - General Family Medicine 01/18/22 Real Gomez MD [address] [place] [address] 3rd [place] [address] Cardiology 10/01/24 Karla Mattson 04/03/25 04/04/25 Kalpesh Calles Boat OutfitterSort Supervisor 02/21/25 documented as of this encounter
--- OUTSIDE RECORDS SUMMARY | 2025-04-07 09:28 | XMS_ITS ---
Author Organization [employer] Address [address] [place] [address] 7t [place] [address] Care Team Providers Care Coal Washer Tender Name Role Phone Naheed Zaman Primary Care Provider [phone] Real Gomez MD Unavailable [facility] Status:Closed (Closed) Start date:04/03/2025 Enrollment reason:ADT Feed End date:04/04/2025 Close reason:Transferred to [facility] Overview CP Assigned Patient- Pt went to [facility] on 04/02/25. Continued Care and Services Coordination
--- OUTSIDE RECORDS SUMMARY | 2025-04-07 09:28 | XMS_ITS | Encounter Summary ---
Author Organization [employer] Address [address] [facility] 7t [place] [address] Care Team Providers Care Lathe Spotter Name Role Phone Naheed Zaman Primary Care Provider [phone] Real Gomez MD Unavailable Karla Mattson Unavailable Reason for Visit * Reason Onset Date Comments chart prep 04/03/2025 Encounter Details Date Type Department Care Team (Late st Contact Info) Description 04/03/2025 Telephone [facility] MEDICINE [address] [place] [address] Naheed Zaman ANP [address] [place] [address] chart prep Social History Tobacco Use Types Packs/Day [...] Telephone Encounter - Araceli Hunter MA - 04/03/2025 2:57 PM EST Chart Prep Labs: done Images: done Referrals: complete Vaccines due: Covid, Flu, and HPV Screenings: foot exam Overdue care gaps: Glucose documented in this encounter Plan of Treatment Upcoming Encounters Date Type Department Care Team (Late st Contact Info) Description 04/29/2025 1:00 PM EST Telemedicine [facility] MEDICINE [address] [place] [phone] Billy Brooke, OzzieD [address] [place] [address] 06/26/2025 3:00 PM EST Office Visit [facility] MEDICINE [address] [place] [address] Rut Branham MD [address] [place] [address] documented as of this encounter Visit Diagnoses Not on filedocumented in this encounter Additional Health Concerns Assessment Noted Time PHQ-9 Depression Total Score: 7 10/05/19 25 2:06 PM EDT documented as of this encounter Care Teams Lathe Spotter Relationship Specialty Start Date End Date Naheed Zaman ANP [address] [place] [address] PCP - General Family Medicine 01/18/22 Real Gomez MD [address] [place] [address] 3rd [place] [address] Cardiology 10/01/24 Karla Mattson 04/03/25 04/04/25 Kalpesh Calles Interpreter And TranslatorExcel Expert 02/21/25 documented as of this encounter
--- OUTSIDE RECORDS SUMMARY | 2025-04-07 09:28 | XMS_ITS | Encounter Summary ---
Author Organization [employer] Address [address] [facility] 7t [place] [address] Care Team Providers Care Sas Analyst Name Role Phone Sofia Mitchell Primary Care Provider [phone] Real Gomez MD Unavailable Encounter Details Date Type Department Care Team ([facility] Contact Info) Description 04/02/2025 Orders Only GENERIC EXTERNAL DATA DEPARTMENT Provider, [...] Description 04/29/2025 1:00 PM EST Telemedicine [facility] MEDICINE [address] [place] [phone] Billy Brooke, PharmD 230 [place] [address] 06/26/2025 3:00 PM EST Office Visit [facility] MEDICINE [address] [place] [phone] Rut Branham MD 230 [place] [address] documented as of this encounter Procedures Procedure Name Priority Date/Time Associated Diagnosis Comments XR CHEST 2 VIEWS Routine 04/02/2025 9:30 AM EST HIGH SENSITIVITY TROPONIN I Routine 04/02/2025 9:29 AM EST NT-PROBNP Routine 04/02/2025 9:29 AM EST CBC WITH AUTO DIFFERENTIAL Routine 04/02/2025 9:29 AM EST MAGNESIUM Routine 04/02/2025 9:29 AM EST COMPREHENSIVE METABOLIC PANEL Routine 04/02/2025 9:29 AM EST documented in this encounter Results * XR Chest 2 Views (04/02/2025 9:30 AM EST) Anatomical Region Laterality Modality Chest Radiographic Lupe ging 04/02/2025 9:30 AM EST Narrative 04/02/2025 9:42 AM EST [address] [address] XRay Report Signed Patient: Ross Navarrete MR#: [id number] : 1980 Acct:[id number] Age/Sex: 44 / M ADM Date: 04/02/25 Loc: .ED Attending Dr: Ordering Physician: Judi Butler Date of Service: 04/02/25 Procedure(s): XR chest 2V Accession Number(s): [id number] cc: Judi Butler; SOFIA MITCHELL NP Reason for Exam: Chest pain EXAMINATION: XR CHEST CLINICAL INFORMATION: Chest pain COMPARISON: September 12, 2024 TECHNIQUE: PA and lateral views FINDINGS: Patient's large body habitus. Poor inspiration. No consolidation, pleural effusion or pneumothorax. Cardiomediastinal silhouette size is normal. Multilevel thoracolumbar spondylosis. Degenerative changes in the shoulders. XR/XR chest 2V IMPRESSION: No acute airspace disease. Electronically signed by: Dionisio Stokes MD 04/02/2025 09:38 AM EST Dictated By: Dionisio Okeefe MD Signed By: <Electronically signed by Dionisio Hill MD in OV> 04/02/25937 DD/ 9 TD/TT: 04/02/25936 Peritoneal Dialysis Registered Nurse: Procedure Note Donotuseinterpreter, Image - 04/02/[address] [address] XRay Report Signed Patient: Ross Navarrete LMR#: [id number] : 1980Acct:[id number] Age/Sex: 44 / MADM Date: 04/02/25 Loc: HO.ED Attending Dr: Ordering Physician: Judi Butler Date of Service: 04/02/25 Procedure(s): XR chest 2V Accession Number(s): [id number] cc: Judi Butler; SOFIA MITCHELL NP Reason for Exam: Chest pain EXAMINATION: XR CHEST CLINICAL INFORMATION: Chest pain COMPARISON: September 12, 2024 TECHNIQUE: PA and lateral views FINDINGS: Patient's large body habitus. Poor inspiration. No consolidation, pleural effusion or pneumothorax. Cardiomediastinal silhouette size is normal. Multilevel thoracolumbar spondylosis. Degenerative changes in the shoulders. XR/XR chest 2V IMPRESSION: No acute airspace disease. Electronically signed by: Dionisio Stokes MD 04/02/2025 09:38 AM EST Dictated By: Dionisio Okeefe MD Signed By: <Electronically signed by Dionisio Hill MDin OV> 04/02/25937 DD/ 9 TD/TT: 04/02/25936 Peritoneal Dialysis Registered Nurse: [facility] External Provider IMG XR PROCEDURES Final Result * High Sensitivity Troponin I (04/02/2025 9:29 AM EST) TROPONIN I HIGH SENSITIVITY <2.7 <3.5 - 35.0 ng/L [facility] Comment:The Jordan high sens itivity Troponin-I results should beused in conjunction with other diagnostic information suchas ECG, clinical observations and information, and patientsymptoms to aid in the diagnosis of VT. 04/02/2025 9:29 AM EST 04/02/2025 9:31 AM EST Generic External Data Provider LAB BLOOD ORDERAB LES Final Result [facility] [address] [place] [phone] * NT-proBNP (04/02/2025 9:29 AM EST) Pathologist [facility] NT-proBNP 57.3 <300 pg/mL [facility] Comment:Reference Range:Age Group (years) NT-proBNP (pg/ml) InterpretationAll <300 Negative: HF unlikelyFor patients presenting to the ED with clinical suspicion ofnew onset or worsening HF, see below:18 to <50 >299.9 to <450.0 Grayzone: Kuwoddws35 to 75 >299.9 to <900.0 other causes of>75 >299.9 to <1800.0 NT-proBNP idxquvpte40 to <50 >449.9 Positive: HF wtfrti33-09 >899.9>75 >1799.9Note: Elevated NT-proBNP levels should be interpreted inthe context of other clinical information. 04/02/2025 9:29 AM EST 04/02/2025 9:31 AM EST Generic External Data Provider LAB BLOOD ORDERAB LES Final Result Performing Organization Address City/[facility]/ZIP Co de Phone Number [facility] [address] [place] [phone] * (ABNORMAL) Magnesium (04/02/2025 9:29 AM EST) [facility] Magnesium 1.5(L) 1.6 - 2.6 mg/dL [facility] 04/02/2025 9:29 AM EST 04/02/2025 9:31 AM EST depict External Data Provider LAB BLOOD ORDERAB LES Final Result Performing Organization Address [facility]/ZIP Co de Phone Number [facility] [address] [place] [phone] * (ABNORMAL) Comprehensive Metabolic Panel (04/02/2025 9:29 AM EST) [facility] Sodium 140 135 - 145 mmol/L [facility] Potassium 4.2 3.3 - 5.1 mmol/L [facility] Chloride 105 96 - 108 mmol/L [facility] Carbon Dioxide 29 22 - 29 mmol/L [facility] Anion Gap 10(L) 12 - 20 [facility] Urea Nitrogen (BUN) 30(H) 9 - 16 mg/dL [facility] Creatinine, Serum 1.86(H) 0.5 - 1.4 mg/dL [facility] Creatinine Clr Calc Pharmacy 77.2 [facility] Comment:eGFR (calculated fro m the MDRD study equation) and eCrCl(calculated from the Cockcroft-Gault equation) are based ondifferent parameters and may not yield comparable results.If eCrCl result is absurd, please check patient'sheight/weight. Estimated Glomerular Filt Rate 40 [facility] Comment:Chronic Kidney Disea se: Estimated GFR < 60 mL/min/1.13e7Rscgsb Kidney Disease: Estimated GFR < 15 mL/min/1.73m2 Glucose 124(H) 60 - 115 mg/dL [facility] Calcium 9.4 8.4 - 10.2 mg/dL [facility] Bilirubin, Total 0.5 0.0 - 1.0 mg/dL [facility] Aspartate Amino Transferase 28 5 - 37 U/L [facility] Alanine Aminotransferase 31 0 - 40 U/L [facility] Total Protein 7.4 6.5 - 8.0 g/dL [facility] Albumin Level 3.9 3.5 - 5.0 g/dL [facility] Alkaline Phosphatase 65 39 - 117 U/L [facility] 04/02/2025 9:29 AM EST 04/02/2025 9:31 AM EST us Generic External Data Provider LAB BLOOD ORDERAB LES Final Result [facility] [address] [place] [phone] [phone] * (ABNORMAL) CBC auto differential (04/02/2025 9:29 AM EST) White Blood Count 4.7(L) 4.8 - 10.8 X10*3/uL [facility] Red Blood Count 3.99(L) 4.60 - 5.80 X10*6/uL [facility] Hemoglobin 11.6(L) 14.0 - 18.0 g/dl [facility] Hematocrit 34.8(L) 42.0 - 52.0 % [facility] Mean Corpuscular Volume 87.2 80.0 - 98.0 fL [facility] Mean Corpuscular Hemoglobin 29.1 27.0 - 33.0 pg [facility] Mean Corpuscular HGB Conc 33.3 31.0 - 36.0 g/dl [facility] Red Cell Distribution Width 12.0 11.0 - 16.0 % [facility] Platelet Count 108(L) 160 - 400 X10*3/uL [facility] Mean Platelet Volume 12.3 9.4 - 12.4 fL [facility] Neutrophils Percent Auto 59.6 45 - 73 % [facility] Imm Gran Pct Auto 0.2 0.0 - 0.4 % [facility] Lymphocytes Percent Auto 30.8 20 - 40 % [facility] Monocytes Percent Auto 5.8 2 - 11 % [facility] Eosinophils Percent Auto 3.4 0 - 4 % [facility] Basophils Percent Auto 0.2 0 - 2 % [facility] NRBC Pct Auto 0.0 0.0 - 0.2 /100WBC [facility] Neutrophils Absolute Auto 2.8 2.0 - 8.3 x10*3/uL [facility] Imm Gran Abs Auto 0.01 0.00 - 0.03 X10*3/uL [facility] Lymphocytes Absolute Auto 1.4 1.2 - 4.9 X10*3/uL [facility] Monocytes Absolute Auto 0.3 0.1 - 1.2 X10*3/uL [facility] Eosinophils Absolute Auto 0.2 0.0 - 0.4 X10*3/uL [facility] Basophils Absolute Auto 0.0 0.0 - 0.2 X10*3/uL [facility] NRBC Abs Auto 0.000 0.0 - 0.012 X10*3/uL [facility] 04/02/2025 9:29 AM EST 04/02/2025 9:31 AM EST us Generic External Data Provider LAB BLOOD ORDERAB LES Final Result [facility] [address] [place] [phone] [phone] documented in this encounter Visit Diagnoses Not on filedocumented in this encounter Additional Health Concerns Assessment Noted Time PHQ-9 Depression Total Score: 7 10/05/19 25 2:06 PM EDT documented as of this encounter Care Teams Sas Analyst Relationship Specialty Start Date End Date Sofia Mitchell ANP [address] [place] [address] PCP - General Family Medicine 01/18/22 Real Gomez MD [address] [place] [address] 3rd [place] [address] Cardiology 10/01/24 Kalpesh Calles Lumber TripperElectrical Project Manager 02/21/25 documented as of this encounter
--- OUTSIDE RECORDS SUMMARY | 2025-04-07 09:28 | XMS_ITS | Encounter Summary ---
Author Organization [employer] Address [address] [facility] [address] 7[address] [place] [address] Care Team Providers Care Plaster Tender Name Role Phone Naheed Zaman Primary Care Provider [phone] Real Gomez MD Unavailable Karla Mattson Unavailable Reason for Visit * Reason Comments Care Coordination CP Care Coordination Chart Review Encounter Details Date Type Department Care Team (Latest Contact Info) Description 04/03/2025 Patient Outreach [facility] [address] [place] [address] Naheed Zaman ANP [address] [place] [address] Care Coordination (CP Care Coordination Chart Review) Social History Tobacco Use Types Packs/Day Years [...] Progress Notes * Karla Mattson - 04/03/2025 1:55 PM EST Community [facility] Coordinator, Karla Mattson, performed chart review, as patient has experienced anADT event and has been identified as being engaged with a [facility] Program. Patient is assigned to CP Program ICP to Molder Floor Kalpesh Calles. Patient visited [facility] ED on 04/02/25. Last appointment in PCP office on 03/27/25. Next appointment scheduled for 06/27/24. documented in this encounter Plan of Treatment Upcoming Encounters Date Type Department Care Team (Late st Contact Info) Description 04/29/2025 1:00 PM EST Telemedicine [facility] [address] [place] [address] Billy Brooke, PharmD [address] [place] [address] 06/26/2025 3:00 PM EST Office Visit [facility] [address] [place] [address] Rut Branham MD 230 [place], [place] [phone] documented as of this encounter Visit Diagnoses Not on filedocumented in this encounter Additional Health Concerns Assessment Noted Time PHQ-9 Depression Total Score: 7 10/05/19 25 2:06 PM EDT documented as of this encounter Care Teams Plaster Tender Relationship Specialty Start Date End Date Naheed Zaman ANP [address] [place], [place] [phone] PCP - General Family Medicine 01/18/22 Real Gomez MD [address] [place] [address] 3rd [place] [address] Cardiology 10/01/24 Karla Mattson 04/03/25 04/04/25 Kalpesh Calles SonographerPiledriver Carpenter 02/21/25 documented as of this encounter
--- OUTSIDE RECORDS SUMMARY | 2025-04-07 09:28 | XMS_ITS | Encounter Summary ---
Author Organization [employer] Address [address] [facility] [address]t [place] [address] Care Team Providers Care Commercial Lines Insurance Agent Name Role Phone Naheed Zaman Primary Care Provider [phone] Real Gomez MD Unavailable Karla Mattson Unavailable Reason for Visit * Reason Onset Date Comments Durable Medical Equipment 04/04/2025 Encounter Details Date Type Department Care Team (Late st Contact Info) Description 04/04/2025 Telephone [facility] [address] [place] [address] Naheed Zaman ANP 230 [place] [address] Durable Medical Equipment Social History Tobacco Use [...] * Telephone Encounter - Nikia Brito - 04/04/2025 4:13 PM EST RX for neck brace generated and sent to PCP for signature via [employer]. Once signed, will be faxed to [facility] and sent to scan. If patient calls to check status on above, please advise them to contact [facility] at [phone]. * Telephone Encounter - Nikia Brito - 04/04/2025 4:13 PM EST ----- Message from Naheed Zaman sent at 04/02/2025 11:16 AM EST ----- Hi - please generate prescription for neck brace (soft cervical collar) thanks documented in this encounter Plan of Treatment Upcoming Encounters Date Type Department Care Team (Late st Contact Info) Description 04/29/2025 1:00 PM EST Telemedicine [facility] 230 [place] [address] Billy Brooke, PharmD 230 [place] [address] 06/26/2025 3:00 PM EST Office Visit [facility] 230 [place] [address] Rut Branham MD 230 [place] [address] documented as of this encounter Visit Diagnoses Not on filedocumented in this encounter Additional Health Concerns Assessment Noted Time PHQ-9 Depression Total Score: 7 10/05/19 25 2:06 PM EDT documented as of this encounter Care Teams Commercial Lines Insurance Agent Relationship Specialty Start Date End Date Naheed Zaman ANP 230 [place] [address] PCP - General Family Medicine 01/18/22 Real Gomez MD [address] 3rd [place] [address] Cardiology 10/01/24 Karla Mattson 04/03/25 04/04/25 Kalpesh Calles Traffic Rate AnalystDeicer Finisher 02/21/25 documented as of this encounter
--- OUTSIDE RECORDS SUMMARY | 2025-04-07 09:29 | XMS_ITS | Encounter Summary ---
Author Organization [facility] [facility] Address [address] [place] [address] 7t [place] [address] Care Team Providers Care Rubber Turner Name Role Phone Naheed Zaman Primary Care Provider [phone] Real Gomez MD Unavailable Chico Kebede RN Unavailable [phone] Karla Mattson Unavailable Reason for Visit * Reason Comments Med Refill Encounter Details Date Type Department Care Team (Late Contact Info) Description 02/02/2023 Refill [facility] 230 [place] [address] Rut Branham MD 230 [place] [address] Uncomplicated opioid dependence (CMS/HCC) Social History Tobacco [...] Department Care Team (Late Contact Info) Description 04/29/2025 1:00 PM EST Telemedicine [facility] MEDICINE 230 [place] [address] Billy Brooke, OzzieD 230 [place] [address] 06/26/2025 3:00 PM EST Office Visit [address] [address] Rut Branham MD [address] [place] [address] documented as of this encounter Visit Diagnoses Diagnosis Uncomplicated opioid dependence (CMS/HCC) (HCC) documented in this encounter Additional Health Concerns Assessment Noted Time PHQ-9 Depression Total Score: 6 11/19/19 23 3:29 PM EDT documented as of this encounter Care Teams Rubber Turner Relationship Specialty Start Date End Date Naheed Zaman ANP 230 [place] [address] PCP - General Family Medicine 01/18/22 Real Gomez MD [address] [place] [address] 3rd [place] [address] Cardiology 10/01/24 Chico Kebede, APRIL [address] [place] [phone] Registered Nurse Family Medicine 02/03/25 02/03/25 Karla Mattson 04/03/25 04/04/25 Kalpesh Calles Butt WelderCustomer Acquisition Specialist 02/21/25 documented as of this encounter
--- OUTSIDE RECORDS SUMMARY | 2025-04-07 09:29 | XMS_ITS | Encounter Summary ---
Author Organization [employer] Address [address] [facility] [address] 7t [place] [address] Care Team Providers Care Passport Application Examiner Name Role Phone Naheed Zaman Primary Care Provider [phone] Real Gomez MD Unavailable Chico Kebede RN Unavailable [phone] Karla aMttson Unavailable Reason for Visit * Reason Comments Med Refill Encounter Details Date Type Department Care Team (Late st Contact Info) Description 09/14/2023 Refill [facility] 230 [place], [place] [phone] Dayna Cardenas MD 230 [place], [place] [phone] Uncomplicated opioid dependence (CMS/HCC) Social History Tobacco [...] PM EST Telemedicine [facility] [address] [place] [address] Billy Brooke, PharmD [address] [place] [address] 06/26/2025 3:00 PM EST Office Visit [facility] [address] [place] [address] Rut Branham MD [address] [place] [address] documented as of this encounter Visit Diagnoses Diagnosis Uncomplicated opioid dependence (CMS/HCC) (HCC) documented in this encounter Additional Health Concerns Assessment Noted Time PHQ-9 Depression Total Score: 6 11/19/19 23 3:29 PM EDT documented as of this encounter Care Teams Passport Application Examiner Relationship Specialty Start Date End Date Naheed Zaman ANP [address] [place] [address] PCP - General Family Medicine 01/18/22 Real Gomez MD [address] 3rd [place] [address] Cardiology 10/01/24 Chico Kebede, RN [address] [place] [address] Registered Nurse Family Medicine 02/03/25 02/03/25 Karla Mattson 04/03/25 04/04/25 Kalpesh Calles Bucket TurnerMail Clerk 02/21/25 documented as of this encounter
--- OUTSIDE RECORDS SUMMARY | 2025-04-07 09:29 | XMS_ITS | Encounter Summary ---
Author Organization [employer] Address [address] [facility] 7t [place] [address] Care Team Providers Care Customer Retention Representative Name Role Phone Naheed Zaman Primary Care Provider [phone] Real Gomez MD Unavailable Chico Kebede RN Unavailable [phone] Karla Mattson Unavailable Reason for Visit * Reason Onset Date Comments Med Refill 11/20/2024 Encounter Details Date Type Department Care Team (Late st Contact Info) Description 11/20/2024 Refill [facility] 230 [place], [place] [phone] Rut Branham MD 230 [place], [place] [phone] Uncomplicated opioid dependence (CMS/HCC) Social History Tobacco [...] PM EST Telemedicine [facility] [address] [place] [address] Billy Brooke, PharmD [address] [place] [address] 06/26/2025 3:00 PM EST Office Visit [facility] [address] [place] [address] Rut Branham MD [address] [place] [address] documented as of this encounter Visit Diagnoses Diagnosis Uncomplicated opioid dependence (CMS/HCC) (HCC) documented in this encounter Additional Health Concerns Assessment Noted Time PHQ-9 Depression Total Score: 7 10/05/19 25 2:06 PM EDT documented as of this encounter Care Teams Customer Retention Representative Relationship Specialty Start Date End Date Naheed Zaman ANP 230 [place] [address] PCP - General Family Medicine 01/18/22 Real Gomez MD [address] [facility] 3rd [place] [address] Cardiology 10/01/24 Chico Kebede, APRIL 505 [place] [address] Registered Nurse Family Medicine 02/03/25 02/03/25 Karla Mattson 04/03/25 04/04/25 Kalpesh Calles Family Protection SpecialistLawn Mower Operator 02/21/25 documented as of this encounter
--- OUTSIDE RECORDS SUMMARY | 2025-04-07 09:29 | XMS_ITS | Encounter Summary ---
Author Organization [employer] [facility] Address [address] [facility] 7t [place] [address] Care Team Providers Care Imaging Analyst Name Role Phone Naheed Zaman Primary Care Provider [phone] Real Gomez MD Unavailable Chico Kebede RN Unavailable [phone] Karla Mattson Unavailable Encounter Details Date Type Department Care Team (Latest Contact Info) Description 12/29/2021 Abstract [facility] Dental, Provider, DDS Social History [...] Info) Description 04/29/2025 1:00 PM EST Telemedicine [facility] [address] [place] [address] Billy Brooke, PharmD [address] [place] [address] 06/26/2025 3:00 PM EST Office Visit [facility] [address] [place] [address] Rut Branham MD 230 [place], [place] [phone] documented as of this encounter Visit Diagnoses Not on filedocumented in this encounter Care Teams Imaging Analyst Relationship Specialty Start Date End Date Naheed Zaman ANP 230 [place] [address] PCP - General Family Medicine 01/18/22 Real Gomez MD [address] [facility] 3rd [place] [address] Cardiology 10/01/24 Chico Kebede, APRIL [address] [place] [address] Registered Nurse Family Medicine 02/03/25 02/03/25 Karla Mattson 04/03/25 04/04/25 Kalpesh Calles Director WomenStitch Bonding Machine Operator 02/21/25 documented as of this encounter
--- OUTSIDE RECORDS SUMMARY | 2025-04-07 09:29 | XMS_ITS | Encounter Summary ---
Author Organization [employer] Address [address] [facility] [address] 7[address] [place] [address] Care Team Providers Care Marking Stitcher Name Role Phone Naheed Zaman Primary Care Provider [phone] Real Gomez MD Unavailable Chico Kebede RN Unavailable [phone] Karla Mattson Unavailable Reason for Visit * Reason Onset Date Comments callback requested 04/23/2024 Encounter Details Date Type Department Care Team ([facility] st Contact Info) Description 04/23/2024 Telephone [facility] 230 [place], [place] [phone] Naheed Zaman ANP 230 [place] [address] callback requested Social History Tobacco Use Types [...] returning call to Madie Olson Callback number [phone] documented in this encounter Plan of Treatment Upcoming Encounters Date Type Department Care Team (Late st Contact Info) Description 04/29/2025 1:00 PM EST Telemedicine [facility] [address] [place] [address] Billy Brooke, PharmD [address] [place] [address] 06/26/2025 3:00 PM EST Office Visit [facility] [address] [place] [address] Rut Branham MD 230 [place] [address] documented as of this encounter Visit Diagnoses Not on filedocumented in this encounter Additional Health Concerns Assessment Noted Time PHQ-9 Depression Total Score: 25 024 8:12 AM EDT documented as of this encounter Care Teams Marking Stitcher Relationship Specialty Start Date End Date Naheed Zaman ANP 230 [place] [address] PCP - General Family Medicine 01/18/22 Real Gomez MD [address] [place] [address] 3rd [place] [address] Cardiology 10/01/24 Chico Kebede, APRIL 505 [place] [address] Registered Nurse Family Medicine 02/03/25 02/03/25 Karla Mattson 04/03/25 04/04/25 Kalpesh Calles Melting SupervisorSecond Operator 02/21/25 documented as of this encounter
--- OUTSIDE RECORDS SUMMARY | 2025-04-07 09:29 | XMS_ITS | Clinical Summary ---
Author Organization [facility] Address [address] [place] [address] Care Team Providers Care Channel Marketing Program Manager Name Role Phone Unavailable Primary Care Provider [...] recurrent major depressive disorder, with psychotic features 06/10/2024 Assessment & Plan (06/18/2024 11:18 AM EST): Patient refused to be seen, [place] cleaning team member was notified. Assessment & Plan [...] connected on video call until arrival of [place] Police with recommendation to section patient to [...] 11/14/2023 10/17/2023 Alcohol and Drug Screen 05/29/2024 [id number] (2024- season) 01/27/202512/29/ 021, 12/10/2020 Imm-Influenza (#1) 2025 02/27/2012, 01/27/2011 Diabetes Screening 10/08/2025 10/08/2024, 0 09/12/2024, 05/16/2024, Additional history exists Lipid Screening 04/24/2029 04/24/2024, 05/29, 02/27/2020 Imm-DTaP/Tdap/Td (3 - Td or Tdap) 10/16/2033 024, 03/15/2011 Hepatitis C Screening Completed 10/11/2023 HIV Screening Completed 12/13/2023, 11/26, 12/16/2021 Insurance [facility] [place] MEDICAID
--- OUTSIDE RECORDS SUMMARY | 2025-04-07 09:30 | XMS_ITS | Encounter Summary ---
Author Organization [facility] Address [address] [place] [address] Care Team Providers Care Human Relations Professor Name Role Phone Naheed Zaman Primary Care Provider [phone] Real Gomez MD Unavailable Chico Kebede RN Unavailable [phone] Karla Mattson Unavailable Encounter Details Date Type Department Care Team ([facility] Contact Info) Description 07/28/2022 Abstract [facility] [address] [place] [address] Zay Schmidt DDS [address] [place] [address] Social History Tobacco Use Types Packs/Day Years [...] Upcoming Encounters Date Type Department Care Team ([facility] Contact Info) Description 04/29/2025 1:00 PM EST Telemedicine [facility] [address] [place] [id number] Billy Brooke, OzzieD [address] [place] [address] 06/26/2025 3:00 PM EST Office Visit [address] [address] Rut Branham MD [address] [place] [address] documented as of this encounter Visit Diagnoses Not on filedocumented in this encounter Care Teams Human Relations Professor Relationship Specialty Start Date End Date Naheed Zaman ANP [address] [place] [address] PCP - General Family Medicine 01/18/22 Real Gomez MD [address] [place] [address] [address]rd [place] [address] Cardiology 10/01/24 Chico Kebede, APRIL [address] [place] [address] Registered Nurse Family Medicine 02/03/25 02/03/25 Karla Mattson 04/03/25 04/04/25 Kalpesh Calles Cdl A DriverRevenue Stamp Clerk 02/21/25 documented as of this encounter
--- OUTSIDE RECORDS SUMMARY | 2025-04-07 09:30 | XMS_ITS | Clinical Summary ---
Author Organization [employer] Address [address] [facility] [address] [place] [address] Care Team Providers Care Student Affairs Dean Name Role Phone Sofia Mitchell Primary Care Provider [phone] Real Gomez MD Unavailable Allergies Active Allergy Reactions Criticality Noted Date Comments Shellfish Allergy Other 05/02/2022 Difficulty breathing Medications * This document contains information received from the source organization and may not represent a complete record from that organization. Alcohol Swabs (Alcohol Prep) 70 % pads USE FOUR TIMES DAILY WITH INSULIN Active Blood Glucose Monitoring Suppl (FreeStyle Dawn Lite) w/Device kit TEST BLOOD SUGAR FOUR TIMES DAILY Active FREESTYLE LITE test strip TEST BLOOD SUGAR FOUR TIMES DAILY Active glucose blood (FREESTYLE LITE) test strip check fingerstick 4 times a day Active Sure Comfort Pen [place] 31G X 5 MM misc USE FOUR [...] Monitor kitIndications:P ulmonary hypertension (CMS/HCC) ([facility]) 1 kit in the morning. 1 kit 024 Active chlorhexidine (Peridex) 0.12 % solution Swish 15 mL morning and night for 1 minute. Spit, do not swallow. Do not eat or drink for 30 minutes following use. 473 mL 024 Active Continuous Glucose Interior Design Professional (FreeStyle Casey 2 [place]) deviceIndication s:Diabetes mellitus with albuminuria ([facility]) Scan sensor every 8 hours 1 each 024 Active Continuous Glucose Sensor (FreeStyle Casey 2 Sensor) miscIndications: Diabetes mellitus with albuminuria ([facility]) Apply 1 sensor every 14 days 2 each 11 024 Active olmesartan-hydro CHLOROthiazide (Benicar HCT) 40-12.5 MG tabletIndication s:Essential hypertension Take 1 tablet by mouth Once per day. 90 tablet 3 025 2025 Active insulin glargine (Lantus SoloStar) 100 UNIT/ML penIndications:T ype 2 diabetes mellitus with hyperlipidemia ([facility]) INJECT 40 UNITS SUBCUTANEOUSLY AT BEDTIME [...] disorder, without psychotic features (CMS/HCC) ([facility]) TAKE 3 CAPSULES BY MOUTH EVERY MORNING 90 capsule 1 025 Active D3 Super Strength 50 MCG (2000 UT) capsule Take 1 capsule by mouth Once per day. 025 Active cyclobenzaprine (Flexeril) 10 MG tablet take 1 tablet by mouth three times a day as needed for muscle spasm Active phentermine 15 MG capsule Take 15 [...] Once per day. 84 Film 2 025 2025 Active melatonin 3 MG tabletIndication s:Insomnia, unspecified type Take 1 tablet 30-60 min before bedtime as needed for sleep 30 tablet 2 Active Magnesium Oxide -Mg Supplement 400 MG capsuleIndicatio ns:Hypomagnesemi a,Nocturnal leg cramps 1 capsule at bedtime for cramps, stop if loose stool occurs 90 capsule 3 Active Vitron-C 65-125 MG tablet Take 1 tablet by mouth at bedtime. 2024 Discontinued( Med list cleanup (will not trigger notification to Pharmacy)) thiamine (Vitamin B-1) 50 MG tablet Take 50 mg by mouth in the morning. 2024 Discontinued( Med list cleanup (will not trigger notification to Pharmacy)) beta carotene (vitamin A) 3 MG (79601 UT) capsule TAKE 2 CAPSULES BY MOUTH [...] to Pharmacy)) esomeprazole (NexIUM) [address] capsuleIndicatio ns:Gastroesophag [...] IN THE MORNING 90 capsule 1 025 2024 Discontinued Suboxone 8-2 MG SL filmIndications: Uncomplicated opioid dependence (CMS/HCC) (HCC) Place 3 Film under the tongue Once per day. 84 Film 1 025 2024 Discontinued( Reorder (will not trigger notification to Pharmacy)) MAGnesium-Oxide 400 (240 Mg) MG tablet TAKE 1 TABLET BY MOUTH AT BEDTIME FOR LEG CRAMPS, STOP FOR LOOSE STOOL 025 2024 Discontinued( Alternate therapy) Active Problems Problem Noted Date Diagnosed Date [...] major depressive disorder, without psychotic features (CMS/HCC) 09/20/2023 Assessment & Plan (02/08/2024 2:34 PM [...] Health Integration Plan Internal Follow up with [facility] Patient Self Plan [facility], Comply with medication [...] Health Integration Plan Internal Follow up with [facility] Patient Self Plan Patient to reach out to [facility] team as needed, Comply with medication [...] Health Integration Plan Internal Follow up with [facility] Patient Self Plan Patient to utilize skills provided in intervention , Patient to reach out to [facility] team as needed, and Patient to [...] Health Integration Plan Internal Follow up with [facility] External OP psychiatry Referral Patient Self Plan Patient to reach out to [facility] team as needed, Comply with medication [...] to reach out to [facility] team as needed, Comply with medication [...] explained that she tried referring pt to [facility] and other centers and pt;s can not be evaluated for plastic surgery w current BMI -I request referral to be sent to [facility] but was explained is the same [...] (CMS/HCC) 05/10/2017 Overview (07/28/2022): Mild, ECHO 10/21/10 [facility], EF 65-70% H. pylori infection 05/10/2017 Overview (07/28/2022): + serology 08/07/2009, uncertain if treated Gout 05/10/2017 Elevated liver enzymes 05/10/2017 Overview (07/28/2022): fatty liver Arthritis 05/10/2017 Overview (07/28/2022): Mild L knee, Mod L shoulder arthropathy Asthma 05/10/2017 Spondylosis of lumbar region without myelopathy or radiculopathy 04/26/2017 Overview (11/22/2024): Saw [facility], now on humira which has been [...] sleep apnea) 05/18/2015 Overview (11/22/2024): Polysomnography 08/05/2009, [facility]: On cpap 14 cm H2O 10/23/2017 Home Sleep Study insufficient data. 08/2018 - Haylie ordered split night study. Titration was done 03/2023 and titrated to start cpap at 77thD98. HST c/w AHI 124/hr and oxygen fritz to 70%, he was titrated Follows w/ [facility] Sleep, Leyla De La Cruz PA Proteinuria 05/18/2015 Encounters * This document contains information received from the source organization and may not represent a complete record from that organization. Date Type Department Care Team Description 04/04/2025 2:30 PM EST Office Visit [facility] [address] [place] [phone] Sofia Mitchell ANP Hypomagnesemia (Primary Dx); KUNAL (acute kidney injury); [...] 69.9 in adult, unspecified obesity type (HCC) 04/04/[address] [address] Sofia Mitchell ANP Durable Medical Equipment 04/04/2025 Patient Outreach [facility] [address] [place] [address] Sofia Mitchell ANP Care Coordination (Communication to pts Assigned CP Coordinator ) 04/04/2025 Travel 04/03/2025 3:00 PM EST Office Visit [address] [address] Rut Branham MD Uncomplicated opioid dependence (CMS/[facility]) ([facility]) (Primary Dx) 04/03/[address] [address] Sofia Mitchell ANP chart prep 04/03/2025 Travel 04/03/2025 Patient Outreach [facility] [address] [place] [address] Sofia Mitchell ANP Care Coordination (CP Care Coordination Chart Review) 04/03/[address] [address] Sofia Mitchell ANP Nurse Triage 04/03/2025 Patient Outreach [facility] [address] [place] [address] Sofia Mitchell ANP Care Coordination ([facility] ED follow up) 04/03/2025 Patient Out[place] [address] Sofia Mitchell ANP 04/02/2025 Results Follow-Up [place] [address] Sofia Mitchell ANP CBC auto differential, Comprehensive Metabolic Panel, Magnesium, Additional followed-up results: 2 04/02/2025 Orders Only GENERIC EXTERNAL DATA DEPARTMENT Provider, Generic External Data 04/01/2025 Telephone [place] [address] Sofia Mitchell ANP Durable Medical Equipment 03/31/2025 Telephone [place] [address] Sofia Mitchell ANP may03/27/2025 9:00 AM EDT Office [place] [address] Sofia Mitchlel ANP Severe episode of recurrent major depressive disorder, without psychotic features (CMS/HCC) (HCC) (Primary Dx); Pulmonary hypertension (CMS/HCC) (HCC); Type 2 diabetes mellitus with hyperlipidemia (CMS/HCC) ; Polyneuropathy associated with underlying disease (CMS/HCC); BETSY (obstructive sleep apnea); Diabetic nephropathy with proteinuria (HCC); Primary hypertension; Mild intermittent asthma without complication; Insomnia, unspecified type; Encounter for immunization; Venous insufficiency of both lower extremities; Neck pain 03/27/2025 Orders Only [facility] [place] [address] Rut Branham MD HTN (hypertension) (Primary Dx) 03/27/2025 Travel 03/26/2025 Refill [facility] [place] [address] Rut Branham MD Uncomplicated opioid dependence (CMS/HCC) (HCC) 03/25/2025 1:30 PM EDT Telemedicine [place] [address] Billy Brooke, PharmD Diabetic nephropathy with proteinuria (HCC) (Primary Dx) 03/25/2025 Refill [facility] [place] [address] Sofia Mitchell ANP Type 2 diabetes mellitus with hyperlipidemia (HCC); Severe episode of recurrent major depressive disorder, without psychotic features (CMS/HCC) (HCC); Gastroesophageal reflux disease, unspecified whether esophagitis present 03/25/2025 Telephone [facility] [address] [place] [address] Sofia Mitchell ANP chart prep 03/13/2025 Refill [facility] [address] [place] [address] Sofia Mitchell ANP Chronic low back pain without sciatica, unspecified back pain laterality; Urinary retention 02/21/2025 Telephone [facility] [address] [place] [address] Sofia Mitchell ANP Care Coordination (ICP Care Plan) 02/06/2025 2:00 PM EDT Clinical Support [address] [address] Tristen hCen RN Uncomplicated opioid dependence ([facility]) 02/06/2025 Travel 02/03/2025 Patient Outreach [address] [address] Sofia Mitchell ANP Care Coordination ([facility]/Mikie Davenportoh f/u, program graduation) 02/03/2025 Patient Outreach [address] [address] Sofia Mitchell ANP Care Management ([facility]- f/u call) 01/30/2025 Refill [facility] [address] [place] [phone] Rut Branham MD Uncomplicated opioid dependence ([facility]) 01/29/2025 Refill [facility] [address] [place] [address] Rut Branham MD Uncomplicated opioid dependence ([facility]/HCC) 01/28/2025 Patient Outreach [facility] [address] [place] [address] Sofia Mitchell ANP 01/20/2025 Travel 01/20/2025 Patient Outreach [facility] [address] [place] [address] Sofia Mitchell ANP Care Coordination ([facility]/MIKIE Davenport[place] f/u call ) 01/20/2025 Patient Outreach [facility] [address] [place] [address] Sofia Mitchell ANP Care Coordination ([facility] f/u call) 01/17/2025 11:30 AM EDT Clinical Support [address] [address] Lela Witt RN Type 2 diabetes mellitus with hyperlipidemia (CMS/HCC) ([facility]) 01/17/2025 Travel 01/16/[address] [address] Sofia Mitchell ANP Durable Medical Equipment 01/15/2025 Refill [facility] [address] [place] [address] Sofia Mitchell ANP Venous stasis dermatitis of both lower extremities 01/13/[address] [address] Sofia Mitchell ANP vasular 01/13/[address] [address] Sofia Mitchell ANP Vascular 01/10/2025 Results Follow-Up [address] [address] Sofia Mitchell ANP US BLADDER 01/09/2025 10:30 AM EDT Office Visit [address] [address] oSfia Mitchell ANP Type 2 diabetes mellitus with hyperlipidemia ([facility]) (Primary Dx); Morbid obesity ([facility]); Diabetic nephropathy with proteinuria ([facility]); Pulmonary hypertension ([facility]); MICHAEL (generalized anxiety disorder); Dietary counseling; Exercise counseling 01/09/2025 Travel 01/08/[address] [address] Sofia Mithcell ANP chart prep from Last 3 Months Immunizations Immunization Administration [...] Mass Index 65.23 04/04/2025 2:28 PM EST Plan of Treatment Upcoming Encounters Date Type Department Care Team (Late st Contact Info) Description 04/29/2025 1:00 PM EST Telemedicine [facility] [address] [place] [phone] Billy Brooke, PharmD [address] [place] [phone] 06/26/2025 3:00 PM EST Office Visit [facility] [address] [place] [phone] Rut Branham MD [address] [place] [address] Health Maintenance Due Date Last Done Comments [...] history exists Depression Screening 10/04/2025 10/04/2024, 10/05/19 SDOH Screening 10/04/2025 10/04/2024 Alcohol/Substance Use Screening 10/08/2025 10/08/2024 Disability Screening 10/08/2025 10/08/2024 Tobacco Screening 04/04/2026 04/04/2025 Eye Exam 06/27/2026 06/27/2024, 05/31, 06/27/2024, Additional [...] Name Priority Date/Time Associated Diagnosis Comments POCT RMASES-14 URINE DRUG SCREEN Routine 04/03/2025 2:19 PM EST Uncomplicated opioid dependence (CMS/HCC) (HCC) XR CHEST 2 VIEWS Routine 04/02/2025 9:30 AM EST HIGH SENSITIVITY TROPONIN I Routine 04/02/2025 9:29 AM EST NT-PROBNP Routine 04/02/2025 9:29 AM EST MAGNESIUM Routine 04/02/2025 9:29 AM EST COMPREHENSIVE METABOLIC PANEL Routine 04/02/2025 9:29 AM EST CBC WITH AUTO DIFFERENTIAL Routine 04/02/2025 9:29 AM EST US BLADDER Urgent 01/10/2025 9:48 AM EDT [...] Relevant to Health Maintenance Results * (ABNORMAL) POCT RAMSES-14 Urine Drug [...] ENTER/YI T ORDERABLES Final Result * XR Chest 2 Views (04/02/2025 9:30 AM EST) Anatomical Region Laterality Modality Chest Radiographic Lupe ging 04/02/2025 9:30 AM EST Narrative 04/02/2025 9:42 AM EST [place] [address] XRay Report Signed Patient: Ross Navarrete MR#: [id number] 613 : 1980 Acct:[id number] Age/Sex: 44 / M ADM Date: 04/02/25 Loc: .ED Attending Dr: Ordering Physician: Judi Butler Date of Service: 04/02/25 Procedure(s): XR chest 2V Accession Number(s): [id number] cc: Judi Butler; SOFIA MITCHELL NP Reason [...] Dionisio Stokes MD 04/02/2025 09:38 AM EST RP Dictated By: Dionisio Okeefe MD Signed By: <Electronically signed by Dionisio Hill MD in OV> 04/02/25937 DD/ 9 TD/TT: 04/02/25936 Location Worker: Procedure Note Donotjonointerpreter, Image - 04/02/[address] [address] XRay Report Signed Patient: Ross Navarrete LMR#: [id number] 613 : 1980Acct:[id number] Age/Sex: 44 / MADM Date: 04/02/25 Loc: .ED Attending Dr: Ordering Physician: Judi Butler Date of Service: 04/02/25 Procedure(s): XR chest 2V Accession Number(s): [id number] cc: Judi Butler; SOFIA MITCHELL NP Reason [...] Dionisio Stokes MD 04/02/2025 09:38 AM EST RP Dictated By: Dionisio Okeefe MD Signed By: <Electronically signed by Dionisio Hill MDin OV> 04/02/25937 DD/ 9 TD/TT: 04/02/25936 Location Worker: [facility] External Provider IMG XR PROCEDURES Final Result * High Sensitivity Troponin I (04/02/2025 9:29 AM EST) TROPONIN I HIGH SENSITIVITY <2.7 <3.5 - 35.0 ng/L [facility] Comment:The [place] high sens itivity Troponin-I results should beused in conjunction with other diagnostic information suchas ECG, clinical observations and information, and patientsymptoms to aid in the diagnosis of [place]. 04/02/2025 9:29 AM EST 04/02/2025 9:31 AM EST Generic External Data Provider LAB BLOOD ORDERAB LES Final Result Performing Organization Address [facility]/ZIP Co de Phone Number [facility] [address] [place] [phone] * NT-proBNP (04/02/2025 9:29 AM EST) Pathologist [facility] NT-proBNP 57.3 <300 pg/mL [facility] Comment:Reference Range:Age Group (years) NT-proBNP (pg/ml) InterpretationAll <300 Negative: HF unlikelyFor patients presenting to the ED with clinical suspicion ofnew onset or worsening HF, see below:18 to <50 >299.9 to <450.0 Grayzone: [id number] to 75 >299.9 to <900.0 other causes of>75 >299.9 to <1800.0 NT-proBNP [id number] to <50 >449.9 Positive: HF -45 >899.9>75 >1799.9Note: Elevated NT-proBNP levels should be interpreted inthe context of other clinical information. 04/02/2025 9:29 AM EST 04/02/2025 9:31 AM EST Generic External Data Provider LAB BLOOD ORDERAB LES Final Result Performing Organization Address [facility] Co de Phone Number [facility] [address] [place] [phone] * (ABNORMAL) CBC auto differential (04/02/2025 9:29 AM EST) Pathologist [facility] White Blood Count 4.7(L) 4.8 - 10.8 X10*3/uL [facility] Red Blood Count 3.99(L) 4.60 - 5.80 X10*6/uL [facility] Hemoglobin 11.6(L) 14.0 - 18.0 g/dl [facility] Hematocrit 34.8(L) 42.0 - 52.0 % [facility] Mean Corpuscular Volume 87.2 80.0 - 98.0 fL [facility] Mean Corpuscular Hemoglobin 29.1 27.0 - 33.0 pg [facility] Mean Corpuscular HGB Conc 33.3 31.0 - 36.0 g/dl [facility] Red Cell Distribution Width 12.0 11.0 - 16.0 % [facility] Platelet Count 108(L) 160 - 400 X10*3/uL [facility] Mean Platelet Volume 12.3 9.4 - 12.4 fL [facility] Neutrophils Percent Auto 59.6 45 - 73 % [facility] Imm Gran Pct Auto 0.2 0.0 - 0.4 % [facility] Lymphocytes Percent Auto 30.8 20 - 40 % [facility] Monocytes Percent Auto 5.8 2 - 11 % [facility] Eosinophils Percent Auto 3.4 0 - 4 % [facility] Basophils Percent Auto 0.2 0 - 2 % [facility] NRBC Pct Auto 0.0 0.0 - 0.2 /100WBC [facility] Neutrophils Absolute Auto 2.8 2.0 - 8.3 x10*3/uL [facility] Imm Gran Abs Auto 0.01 0.00 - 0.03 X10*3/uL [facility] Lymphocytes Absolute Auto 1.4 1.2 - 4.9 X10*3/uL [facility] Monocytes Absolute Auto 0.3 0.1 - 1.2 X10*3/uL [facility] Eosinophils Absolute Auto 0.2 0.0 - 0.4 X10*3/uL [facility] Basophils Absolute Auto 0.0 0.0 - 0.2 X10*3/uL [facility] NRBC Abs Auto 0.000 0.0 - 0.012 X10*3/uL [facility] 04/02/2025 9:29 AM EST 04/02/2025 9:31 AM EST us Generic External Data Provider LAB BLOOD ORDERAB LES Final Result Performing Organization Address City/[facility] Co de Phone Number [facility] [address] [place] [phone] * (ABNORMAL) Magnesium (04/02/2025 9:29 AM EST) Magnesium 1.5(L) 1.6 - 2.6 mg/dL [facility] 04/02/2025 9:29 AM EST 04/02/2025 9:31 AM EST emoquo External Data Provider LAB BLOOD ORDERAB LES Final Result Performing Organization Address [facility] Phone Number [facility] [address] [place] [phone] * (ABNORMAL) Comprehensive Metabolic Panel (04/02/2025 9:29 AM EST) Sodium 140 135 - 145 mmol/L [facility] Potassium 4.2 3.3 - 5.1 mmol/L [facility] Chloride 105 96 - 108 mmol/L [facility] Carbon Dioxide 29 22 - 29 mmol/L [facility] Anion Gap 10(L) 12 - 20 [facility] Urea Nitrogen (BUN) 30(H) 9 - 16 mg/dL [facility] Creatinine, Serum 1.86(H) 0.5 - 1.4 mg/dL [facility] Creatinine Clr Calc Pharmacy 77.2 [facility] Comment:eGFR (calculated fro m the MDRD study equation) and eCrCl(calculated from the Cockcroft-Gault equation) are based ondifferent parameters and may not yield comparable results.If eCrCl result is absurd, please check patient'sheight/weight. Estimated Glomerular Filt Rate 40 [facility] Comment:Chronic Kidney Disea se: Estimated GFR < 60 mL/min/1.23h8Viyfzc Kidney Disease: Estimated GFR < 15 mL/min/1.73m2 Glucose 124(H) 60 - 115 mg/dL [facility] Calcium 9.4 8.4 - 10.2 mg/dL [facility] Bilirubin, Total 0.5 0.0 - 1.0 mg/dL [facility] Aspartate Amino Transferase 28 5 - 37 U/L [facility] Alanine Aminotransferase 31 0 - 40 U/L [facility] Total Protein 7.4 6.5 - 8.0 g/dL [facility] Albumin Level 3.9 3.5 - 5.0 g/dL [facility] Alkaline Phosphatase 65 39 - 117 U/L [facility] 04/02/2025 9:29 AM EST 04/02/2025 9:31 AM EST us Generic External Data Provider LAB BLOOD ORDERAB LES Final Result Performing Organization Address City/State/[facility] de Phone Number [facility] [address] [place] [phone] * US BLADDER (01/10/2025 9:48 AM EDT) Anatomical Region Laterality Modality Abdomen Ultrasound 01/10/2025 9:48 AM EDT Narrative 01/10/2025 9:50 AM EDT [facility] [address] [place] [address] [place] [address] Ultrasound Report Signed Patient: Ross Navarrete MR#: [id number] 613 : 1980 Acct:[id number] Age/Sex: 44 / M ADM Date: 01/09/25 Loc: HO.HMGCX Attending Dr: Sofia Mitchell NP Ordering Physician: SOFIA MITCHELL NP Date of Service: 01/09/25 Procedure(s): US bladder Accession Number(s): [id number] cc: SOFIA MITCHELL NP CLINICAL HISTORY: ?urinary [...] in OV> 01/10/25948 DD/ 7 TD/TT: 01/10/25947 Location Worker: Procedure Note Donotjonointerpreter, Image - 01/10/2025 [facility] [address] [place] [address] [place] [address] Ultrasound Report Signed Patient: Ross Navarrete LMR#: [id number] 613 : 1980Acct:[id number] Age/Sex: 44 / MADM Date: 01/09/25 [facility]: Sofia Mitchell NP Ordering Physician: SOFIA MITCHELL NP Date of Service: 01/09/25 Procedure(s): US bladder Accession Number(s): [id number] cc: SOFIA MITCHELL NP CLINICAL HISTORY: ?urinary [...] in OV> 01/10/2549 DD/ 7 TD/TT: 01/10/25947 Location Worker: us Sofia Mitchell ANP IMG US PROCEDURES Final Result * (ABNORMAL) POCT HGB A1C (01/09/2025 10:56 AM EDT) Hemoglobin A1C 5.8(A) 4.0 - 5.7 % QC Media Lot # [id number] Lot# Expiration Date ,132,770 Blood 01/09/2025 10:5 6 AM EDT us Sofia Mitchell ANP POINT OF CARE TEST ENTER/EDIT OR DERABLES Final Result * POCT Glucose (01/09/2025 10:55 AM EDT) Glucose Blood, POC 102 60 - 200 mg/dL QC Media Lot # [id number] Lot# Expiration Date [id number] Blood Capillary blood specimen / Unknown 01/09/2025 10:55 AM EDT Sofia RAHMAN POINT OF CARE TEST ENTER/EDIT OR DERABLES Final Result * Hepatitis C Antibody with Reflex to HCV, RNA, Quantitative, Real-Time PCR (12/12/2024 1:48 PM EDT) Pathologist [facility] Hepatitis C Antibody Nonreactive Nonreactive [facility] Comment:Antibodies to HCV no t detected; does not exclude early acuteHCV infection. Blood Venous blood specimen / Unknown 12/12/2024 1:48 PM EDT 12/12/2024 4:06 PM EDT Rut Branham MD LAB BLOOD ORDERABLES Final R esult [facility] [address] [place] [phone] * Lipid Panel, Standard (04/24/2024 11:23 AM EST) Pathologist [facility] Triglycerides 132 <150 mg/dL [facility] Comment:Desirable Triglyceri de: less than 150 mg/dLBorderline High Triglyceride 150-199 mg/dLHigh Triglyceride: 200-499 mg/dLVery High Triglyceride: greater than or equal to 5OO mg/dL Cholesterol 165 <200 mg/dL [facility] Comment:Desirable Cholestero l: less than 200 mg/dLBorderline High Cholesterol: 200-239 mg/dLHigh Cholesterol: greater than 239 mg/dL LDL Cholesterol Calculated 91 <100 mg/dL [facility] Comment:Desirable LDL: less than 100 mg/dLNear Optimal/Above Optimal LDL: 110- 129 mg/dLBorderline High LDL: 130-159 mg/dLHigh LDL: 160-189 mg/dLVery High LDL: greater than or equal to 190 mg/dL HDL Cholesterol 48 >40 mg/dL [facility] Comment:Desirable HDL: great er than 40 mg/dL Note: This HDL assay may give artificially low results in patients with liver disease. 04/24/2024 11:2 3 AM EST 04/24/2024 11:23 AM EST Generic External Data Provider LAB BLOOD ORDERAB LES Final Result Performing Organization Address City/[facility]/ZIP Co de Phone Number [facility] [address] [place] [phone] * HIV-1/2 Antigen and Antibodies, Fourth Generation, with Reflexes (12/13/2023 11:48 AM EDT) Pathologist [facility] HIV AB/AG Nonreactive Nonreactive [facility] Comment:HIV-1 p24 Ag and/or HIV-1/HIV-2 Ab not detected.A test result that is nonreactive does not exclude thepossibility of exposure to or infection with HIV-1 and/orHIV-2. Nonreactive results in this assay for individualswith prior exposure to HIV-1 and/or HIV-2 may be due toantigen and antibody levels that are below the limit ofdetection of this assay.[facility] HIV Ag/Ab Combo assay result andsupplemental assay results should be interpreted inconjunction with the patient's clinical presentation,history and other laboratory results. If the results areinconsistent with clinical evidence, additional testing issuggested to confirm the result. Blood Venous blood specimen / Unknown 12/13/2023 11:48 AM EDT 12/13/2023 12:51 PM EDT Sofia RAHMAN LAB BLOOD ORDERABLES Final Resul t Performing Organization Address City/[facility]/ZIP Co de Phone Number [facility] [address] [place] [address] [phone] from Last 3 Months or Most Recently Relevant to Health Maintenance [place] AD[place] Care Teams Student Affairs Dean Relationship Specialty Start Date End Date Sofia Mitchell ANP [address] [place] [address] PCP - General Family Medicine 01/18/22 Real Gomez MD [address] [place] [address] 3rd [place] [address] Cardiology 10/01/24 Kalpesh Calles Production PainterLidder 02/21/25
--- OUTSIDE RECORDS SUMMARY | 2025-04-07 09:30 | XMS_ITS | Encounter Summary ---
Author Organization [employer] Address [address] [facility] [address] 7t [place] [address] Care Team Providers Care Floorworker Name Role Phone Naheed Zaman Primary Care Provider [phone] Real Gomez MD Unavailable Chico Kebede RN Unavailable [phone] Karla Mattson Unavailable Reason for Visit * Reason Comments Med Refill Encounter Details Date Type Department Care Team (Late st Contact Info) Description 01/30/2025 Refill [facility] [address] [place] [address] Rut Branham MD [address] [place], [place] [phone] Uncomplicated opioid dependence (CMS/HCC) Social History Tobacco [...] 04/29/2025 1:00 PM EST Telemedicine [facility] [address] [place] [address] Billy Brooke, PharmD [address] [place] [address] 06/26/2025 3:00 PM EST Office Visit [facility] [address] [place] [address] Rut Branham MD [address] [place] [address] documented as of this encounter Visit Diagnoses Diagnosis Uncomplicated opioid dependence (CMS/HCC) (HCC) documented in this encounter Additional Health Concerns Assessment Noted Time PHQ-9 Depression Total Score: 7 10/05/19 25 2:06 PM EDT documented as of this encounter Care Teams Floorworker Relationship Specialty Start Date End Date Naheed Zaman ANP [address] [place] [address] PCP - General Family Medicine 01/18/22 Real Gomez MD [address] [place] [address] 3rd [place] [address] Cardiology 10/01/24 Chico Kebede, APRIL [address] [place] [address] Registered Nurse Family Medicine 02/03/25 02/03/25 Karla Mattson 04/03/25 04/04/25 Kalpesh Calles Radio TesterHealth Care Liaison 02/21/25 documented as of this encounter
--- OUTSIDE RECORDS SUMMARY | 2025-04-07 09:30 | XMS_ITS | Encounter Summary ---
Author Organization [employer] Address [address] [facility] 7t [place] [address] Care Team Providers Care Automatic Punch Press Operator Name Role Phone Naheed Zaman Primary Care Provider [phone] Real Gomez MD Unavailable Chico Kebede RN Unavailable [phone] Karla Mattson Unavailable Reason for Visit * Reason Onset Date Comments Med Refill 01/03/2025 Encounter Details Date Type Department Care Team (Late st Contact Info) Description 01/03/2025 Refill [facility] [address] [place], [place] [phone] Naheed Zaman ANP [address] [place] [address] Gastroesophageal reflux disease, unspecified whether esophagitis present; [...] Info) Description 04/29/2025 1:00 PM EST Telemedicine [facility] [address] [place] [address] Billy Brooke, PharmD [address] [place] [address] 06/26/2025 3:00 PM EST Office Visit [facility] [address] [place] [address] Rut Branham MD [address] [place] [address] documented as of this encounter Visit Diagnoses Diagnosis Gastroesophageal reflux disease, unspecified whether esophagitis present Essential hypertension Unspecified essential hypertension Chronic low back pain without sciatica, unspecified back pain laterality documented in this encounter Additional Health Concerns Assessment Noted Time PHQ-9 Depression Total Score: 7 10/05/19 25 2:06 PM EDT documented as of this encounter Care Teams Automatic Punch Press Operator Relationship Specialty Start Date End Date Naheed Zaman ANP 230 [place] [address] PCP - General Family Medicine 01/18/22 Real Gomez MD [address] [place] [address] 3rd [place] [address] Cardiology 10/01/24 Chico Kebede RN [address] [place] [address] Registered Nurse Family Medicine 02/03/25 02/03/25 Karla Mattson 04/03/25 04/04/25 Kalpesh Calles Grader PatrolWatch Inspector Final Movement 02/21/25 documented as of this encounter
--- OUTSIDE RECORDS SUMMARY | 2025-04-07 09:30 | XMS_ITS | Encounter Summary ---
Author Organization [employer] Address [address] [facility] [address] [facility] [facility] [address] 7t [place] [address] Care Team Providers Care Manager Loan Name Role Phone Naheed Zaman Primary Care Provider [phone] Real Gomez MD Unavailable Chico Kebede RN Unavailable [phone] Karla Mattson Unavailable Reason for Visit * Reason Onset Date Comments [facility] 12/12/2023 Encounter Details Date Type Department Care Team (Late st Contact Info) Description 12/12/2023 Telephone [facility] 230 [place], [place] [phone] Zay Schmidt DDS [address] [place] [address] [facility] Social History Tobacco Use Types Packs/Day [...] down Nearly every day 12/15/2023 3:51 PM EDT Vee Gold Trouble concentrating on things, such as reading the newspaper or watching television Nearly every day 12/15/2023 3:51 PM EDT Vee Gold Moving or speaking so slowly that other people could have noticed? Or the opposite - being so fidgety or restless that you have been moving around a lot more than usual. Nearly every day 12/15/2023 3:51 PM Vee Moss Thoughts that you would be better off or hurting yourself in some way Several days 12/15/2023 3:51 PM EDT Vee Gold Patient Health Questionnaire-9 Score 25 12/15/2023 3:51 PM MAYAT Vee Gold documented as of this encounter Miscellaneous Notes [...] dental relief. Pain Shimon office phone number [phone] documented in this encounter Plan of Treatment Upcoming Encounters Date Type Department Care Team (Late st Contact Info) Description 04/29/2025 1:00 PM EST Telemedicine [facility] [address] [place] [address] Billy Brooke, OzzieD 230 [place] [address] 06/26/2025 3:00 PM EST Office Visit [facility] [address] [place] [address] Rut Branham MD 230 [place] [address] documented as of this encounter Visit Diagnoses Not on filedocumented in this encounter Additional Health Concerns Assessment Noted Time PHQ-9 Depression Total Score: 23 024 3:25 PM EDT documented as of this encounter Care Teams Manager Loan Relationship Specialty Start Date End Date Naheed Zaman ANP [address] [place] [address] PCP - General Family Medicine 01/18/22 Real Gomez MD [address] [place] [address] 3rd [place] [address] Cardiology 10/01/24 Chico Kebede, APRIL [address] [place] [address] Registered Nurse Family Medicine 02/03/25 02/03/25 Karla Mattson 04/03/25 04/04/25 Kalpesh Calles Switching OperatorAnimal Researcher 02/21/25 documented as of this encounter
--- OUTSIDE RECORDS SUMMARY | 2025-04-07 09:31 | XMS_ITS | Clinical Summary ---
Author Organization [facility] Address [address] [place] [address] Phone Care Team Providers Care Medical Leader Name Role Phone Naheed Zaman NP Primary Care Provider [phone] Allergies Active Allergy Reactions Criticality Noted Date [...] Description 02/05/2025 3:00 PM EDT Office Visit [facility] Medical Weight Management [address] [address] Sri Andrade MD Morbid obesity (Primary Dx); [...] Info) Description 06/11/2025 1:30 PM EST Telemedicine [facility] Medical Weight Management [address] [facility] [address] [place] [address] Felicity Puentes CNP [address] [place] [address] 10/30/2025 10:40 AM EDT Office Visit [facility] Medical Weight Management [address] [address] Sri Andrade MD [address] [address] [email or web address] Health Maintenance Due Date Last Done Comments [...] patient's age to complete this topic IPV VACCINES Aged Out No longer eligi ble based on patient's age to complete this topic MENINGOCOCCAL VACCINES (ACWY) Aged Out No longer eligible based on patient's age to complete this topic MENINGOCOCCAL VACCINES (B) Aged Out N o longer eligible based on patient's age to complete this topic Medical Devices Not on file Insurance [facility] C3 ACO [facility] C3 ACO [facility] C3 ACO Care Teams Medical Leader Relationship Specialty Start Date End Date Naheed Zaman NP [address] [place] [address] PCP - General Nurse Practitioner 01/02/25 Additional Source Comments The information contained in this document represents components of the legal health record. It is not the complete legal health record.[facility]
--- OUTSIDE RECORDS SUMMARY | 2025-04-07 09:31 | XMS_ITS | Encounter Summary ---
Author Organization [employer] Address [address] [facility] 7t [place] [address] Care Team Providers Care Senior Mobile Application Developer Name Role Phone Naheed Zaman Primary Care Provider [phone] Real Gomez MD Unavailable Karla Mattson Unavailable Reason for Referral * Consultation (Routine) - Authorized Specialty Diagnoses / Procedures Referred By Contac t Referred To Contact Pharmacy Diagnoses HTN (hypertension) Rut Branham MD [address] [place] [address] Phone: tel: fax: Referral ID Status Reason Start Date Expiration Date Visits Requested Visits Authorized [id number] Authorized Continuity of Care 03/27/2025 03/27/2026 6 6 Encounter Details Date Type Department Care Team (Late st Contact Info) Description 03/27/2025 Orders Only [facility] [address] [place] [address] Rut Branham MD 230 [place], [place] [phone] HTN (hypertension) (Primary Dx) Social History Tobacco [...] Info) Description 04/29/2025 1:00 PM EST Telemedicine [facility] [address] [place] [address] Billy Brooke, PharmD 230 [place] [address] 06/26/2025 3:00 PM EST Office Visit [facility] 230 [place] [address] Rut Branham MD 230 [place] [address] Scheduled Referrals Name Type Priority Associated Diagnoses Orde r Schedule Referral to Pharmacy [facility] Outpatient Referral Routine HTN (hypertension) Ordered: 03/27/2025 documented as of this encounter Visit Diagnoses Diagnosis HTN (hypertension)- Primary Unspecified essential hypertension documented in this encounter Additional Health Concerns Assessment Noted Time PHQ-9 Depression Total Score: 7 10/05/19 25 2:06 PM EDT documented as of this encounter Care Teams Senior Mobile Application Developer Relationship Specialty Start Date End Date Naheed Zaman ANP 230 [place] [address] PCP - General Family Medicine 01/18/22 Real Gomez MD [address] [place] [address] 3rd [place] [address] Cardiology 10/01/24 Karla Mattson 04/03/25 04/04/25 Kalpesh Calles Dental AssociateDirector Of Counterintelligence 02/21/25 documented as of this encounter
--- OUTSIDE RECORDS SUMMARY | 2025-04-07 09:31 | XMS_ITS | Encounter Summary ---
Author Organization [employer] Address [address] [facility] 7t [place] [address] Care Team Providers Care Surface Supervisor Name Role Phone Naheed Zaman Primary Care Provider [phone] Real Gomez MD Unavailable Chico Kebede RN Unavailable [phone] Karla Mattson Unavailable Reason for Visit * Reason Onset Date Comments Durable Medical Equipment 10/04/2022 Encounter Details Date Type Department Care Team (Late st Contact Info) Description 10/04/2022 Telephone [facility] 230 [place], [place] [phone] Naheed Zaman ANP 230 [place], [place] [phone] Durable Medical Equipment Social History Tobacco Use [...] for Compressions socks. Please contact pt at [phone] documented in this encounter Plan of Treatment Upcoming Encounters Date Type Department Care Team (Late st Contact Info) Description 04/29/2025 1:00 PM EST Telemedicine [address] [address] Billy Brooke, PharmD [address] [place] [address] 06/26/2025 3:00 PM EST Office Visit [address] [address] Rut Branham MD 230 [place] [address] documented as of this encounter Visit Diagnoses Not on filedocumented in this encounter Care Teams Surface Supervisor Relationship Specialty Start Date End Date Naheed Zaman ANP 230 [place] [address] PCP - General Family Medicine 01/18/22 Real Gomez MD [address] 3rd [place] [address] Cardiology 10/01/24 Chico Kebede, APRIL 505 [place] [address] Registered Nurse Family Medicine 02/03/25 02/03/25 Karla Mattson 04/03/25 04/04/25 Kalpesh Calles Healthcare Applications AnalystFamily And Consumer Sciences Teacher 02/21/25 documented as of this encounter
--- OUTSIDE RECORDS SUMMARY | 2025-04-07 09:31 | XMS_ITS | Encounter Summary ---
Author Organization [employer] Address [address] [facility] [address] 7t [place] [address] Care Team Providers Care Reconcilement Clerk Name Role Phone Naheed Zaman Primary Care Provider [phone] Real Gomez MD Unavailable Chico Kebede RN Unavailable [phone] Karla Mattson Unavailable Reason for Visit * Reason Onset Date Comments Med Refill 10/30/2024 Encounter Details Date Type Department Care Team (Late st Contact Info) Description 10/30/2024 Refill [facility] 230 [place], [place] [phone] Naheed Zaman ANP 230 [place], [place] [phone] Chronic low back pain without sciatica, unspecified [...] Info) Description 04/29/2025 1:00 PM EST Telemedicine [facility] [address] [place] [address] Billy Brooke, PharmD [address] [place] [address] 06/26/2025 3:00 PM EST Office Visit [facility] [address] [place] [address] Rut Branham MD [address] [place] [address] documented as of this encounter Visit Diagnoses Diagnosis Chronic low back pain without sciatica, unspecified back pain laterality documented in this encounter Additional Health Concerns Assessment Noted Time PHQ-9 Depression Total Score: 7 10/05/19 2:06 PM EDT documented as of this encounter Care Teams Reconcilement Clerk Relationship Specialty Start Date End Date Naheed Zaman ANP 230 [place] [address] PCP - General Family Medicine 01/18/22 Real Gomez MD [address] 3rd [place] [address] Cardiology 10/01/24 Chico Kebede, APRIL 505 [place] [address] Registered Nurse Family Medicine 02/03/25 02/03/25 Karla Mattson 04/03/25 04/04/25 Kalpesh Calles Asphalt TamperMedical Researcher 02/21/25 documented as of this encounter
--- OUTSIDE RECORDS SUMMARY | 2025-04-07 09:32 | XMS_ITS | Encounter Summary ---
Author Organization [employer] Address [address] [facility] 7t [place] [address] Care Team Providers Care Allocations Clerk Name Role Phone Naheed Zaman Primary Care Provider [phone] Real Gomez MD Unavailable Chico Kebede RN Unavailable [phone] Karla Mattson Unavailable Reason for Visit * Reason Onset Date Comments Med Refill 01/03/2025 Encounter Details Date Type Department Care Team (Late st Contact Info) Description 01/03/2025 Refill [facility] 230 [place], [place] [phone] Rut Branham MD 230 [place] [address] Uncomplicated opioid dependence (CMS/HCC) Social History Tobacco [...] Info) Description 04/29/2025 1:00 PM EST Telemedicine [facility] [address] [place] [address] Billy Brooke, PharmD [address] [place] [address] 06/26/2025 3:00 PM EST Office Visit [facility] [address] [place] [address] Rut Branham MD [address] [place] [address] documented as of this encounter Visit Diagnoses Diagnosis Uncomplicated opioid dependence (CMS/HCC) (HCC) documented in this encounter Additional Health Concerns Assessment Noted Time PHQ-9 Depression Total Score: 7 10/05/19 25 2:06 PM EDT documented as of this encounter Care Teams Allocations Clerk Relationship Specialty Start Date End Date Naheed Zaman ANP 230 [place] [address] PCP - General Family Medicine 01/18/22 Real Gomez MD [address] [facility] 3rd [place] [address] Cardiology 10/01/24 Chico Kebede, APRIL 505 [place] [address] Registered Nurse Family Medicine 02/03/25 02/03/25 Karla Mattson 04/03/25 04/04/25 Kalpesh Calles Stranding SupervisorPhotoengraving Retoucher 02/21/25 documented as of this encounter
--- OUTSIDE RECORDS SUMMARY | 2025-04-07 09:32 | XMS_ITS | Encounter Summary ---
Author Organization [employer] Address [address] [facility] [address] 7t [place] [address] Care Team Providers Care Capacity Planning Manager Name Role Phone Naheed Zaman Primary Care Provider [phone] Real Gomez MD Unavailable Karla Mattson Unavailable Reason for Visit * Reason Onset Date Comments Durable Medical Equipment 04/01/2025 Encounter Details Date Type Department Care Team (Late st Contact Info) Description 04/01/2025 Telephone [facility] 230 [place] [address] Naheed Zaman ANP 230 [place] [address] Durable Medical Equipment Social History Tobacco Use [...] t he electric, gas, oil or water Tavern threatened to shut off services in your [...] Telephone Encounter - Nikia Brito - 04/04/2025 4:19 PM EST Rx generated and sent to pcp for signature. * Telephone Encounter - Jesse Bullock - 04/01/2025 3:00 PM EST Patient walked in requesting a neck brace for neck pain, pt recently spoke to pcp about this matter. documented in this encounter Plan of Treatment Upcoming Encounters Date Type Department Care Team (Late st Contact Info) Description 04/29/2025 1:00 PM EST Telemedicine [facility] 230 [place], [place] [phone] Billy Brooke, PharmD 230 [place], [place] [phone] 06/26/2025 3:00 PM EST Office Visit [facility] 230 [place], [place] [phone] Rut Branham MD 230 [place], [place] [phone] documented as of this encounter Visit Diagnoses Not on filedocumented in this encounter Additional Health Concerns Assessment Noted Time PHQ-9 Depression Total Score: 7 10/05/19 25 2:06 PM EDT documented as of this encounter Care Teams Capacity Planning Manager Relationship Specialty Start Date End Date Naheed Zaman ANP 230 [place], [place] [phone] PCP - General Family Medicine 01/18/22 Real Gomez MD [address] [place] [address] 3rd [place] [address] Cardiology 10/01/24 Karla Mattson 04/03/25 04/04/25 Kalpesh Calles Iron ErectorTeaching Manager 02/21/25 documented as of this encounter
[2025-04-07 11:25] LABS: MANUAL DIFF FLAG NO
[2025-04-07 11:38] LABS: Hematocrit 37.6 % (42.0-52.0); Hemoglobin 12.3 g/dl (14.0-18.0); Imm Gran Abs Auto 0.02 X10*3/uL (0.00-0.03); Imm Gran Pct Auto 0.3 % (0.0-0.4); Lymphocytes Absolute Auto 1.9 X10*3/uL (1.2-4.9); Mean Corpuscular HGB Conc 32.7 g/dl (31.0-36.0); Mean Corpuscular Hemoglobin 28.5 pg (27.0-33.0); Mean Corpuscular Volume 87.2 fL (80.0-98.0); NRBC Abs Auto 0.000 X10*3/uL (0.0-0.012); NRBC Pct Auto 0.0 /100WBC (0.0-0.2); Platelet Count 119 X10*3/uL (160-400); Red Blood Count 4.31 X10*6/uL (4.60-5.80); White Blood Count 5.8 X10*3/uL (4.8-10.8)
[2025-04-07 12:37] LABS: Anion Gap 12 (12-20); Blood Urea Nitrogen 19 mg/dL (9-16); Calcium 9.4 mg/dL (8.4-10.2); Carbon Dioxide 27 mmol/L (22-29); Chloride 104 mmol/L (96-108); Estimated Glomerular Filt Rate 48; Magnesium 1.6 mg/dL (1.6-2.6); Potassium 3.9 mmol/L (3.3-5.1); Sodium 139 mmol/L (135-145)
== END 2025-04-07 08:55 | disposition home or self-care (01) ==
LOC: HO.HHCL 08:54
PROVIDERS: PCP Nurse Practitioner Primary Care; Visit Provider Nurse Practitioner Primary Care
DX: I10 Essential (primary) hypertension (principal); E83.42 Hypomagnesemia; D64.9 Anemia, unspecified
CPT/HCPCS: 36415; 80048; 83735; 85025

== ENCOUNTER 2025-04-08 10:59 | Outpatient (AMB) | payer MEDICAID, SELFPAY ==
--- OUTSIDE RECORDS SUMMARY | 2025-04-03 15:00 | XMS_ITS | Encounter Summary ---
Author Organization [employer] Address [address] [facility] [address] 7t [place] [address] Care Team Providers Care Manager Environmental Health Name Role Phone Nahede Zaman Primary Care Provider [phone] Real Gomez MD Unavailable Karla Mattson Unavailable Reason for Visit * Reason Comments OBAT Encounter Details Date Type Department Care Team (Latest Contact Info) Description 04/03/2025 3:00 PM EST Office Visit [facility]INE 230 [place] [address] Rut Branham MD 230 [place] [address] Uncomplicated opioid dependence (CMS/HCC) (HCC) (Primary Dx) Social History Tobacco Use Types [...] Progress Notes * Rut Branham MD - 04/03/2025 3:00 PM EST Patient here today for OBAT visit. Patient on current buprenorphine-naloxone dose of 24/6 mg on a 12 week schedule. Patient has been in the program for 3 years 4 months. Intake date: 12/16/21. LFTs done 04/02/25. HIV screening due. Hepatitis A/B/C status: negative 12/12/24. Smoking status: ---. Last PCP appt 03/27/25. Patient actively enrolled in behavioral health services, therapist at [facility]. RAMONE GAY reviewed by provider. LAST VISIT 02/06/25 Ross reports doing about the same. Happy with therapist, states it helps. He says he is waiting for endoscopy/colonoscopy and still waiting for knee surgery. Advised him to continue to keep PCP and specialty appts. He agrees. TODAY 04/03/25 Subjective Patient ID: Ross Navarrete is a 44 y.o. male who presents for OBAT. Ross is being seen for OBAT services. He is maintaining abstinence on Suboxone with no cravings orurges to use. He states that he is having more pain to upper extremities. Plans to speak with PCP about this. He is now seeing a weight loss doctor in [place], who is prescribing Mounaro and phentermine. He can't recall how long he's been taking them, but thinks it's a few weeks. Denies anxiety/tremor. Not sleeping well, but this is not new. Has a new psych prescriber who has given him something to help him sleep. Review of Systems Psychiatric/Behavioral: Positive for dysphoric mood and sleep disturbance. The patient is nervous/anxious. Objective Physical Exam Constitutional: Appearance: Normal appearance. He is well-developed. Skin: General: Skin is warm and dry. Neurological: General: No focal deficit present. Mental Status: He is alert and oriented to person, place, and time. Mental status is at baseline. Psychiatric: Mood and Affect: Mood normal. Behavior: Behavior normal. Assessment/Plan Diagnoses and all orders for this visit: Uncomplicated opioid dependence (CMS/HCC) ([facility]) Counseling provided RE: importance of multiple sources of support for achieving and maintaining recovery. Counseling RE: harm reduction measures, ie, not using alone, the use of clean needles/equipment, Narcan. Discussed strategies to use when confronted with situations that trigger use. Continue current Suboxone dose. Change visit interval to 12 weeks. - POCT RAMSES-14 Urine Drug Screen This information has been disclosed to you [...] Info) Description 04/29/2025 1:00 PM EST Telemedicine [facility]INE [address] [place] [address] Billy Brooke, PharmD 230 [place], [place] [phone] 06/26/2025 3:00 PM EST Office Visit [facility] MED[facility]INE 230 [place], [place] [phone] Rut Branham MD 230 [place], [place] [phone] documented as of this encounter Procedures Procedure Name Priority Date/Time Associated Diagnosis Comments POCT RAMSES-14 URINE DRUG SCREEN Routine 04/03/2025 2:19 PM EST Uncomplicated opioid dependence (CMS/HCC) (HCC) documented in this encounter Results * (ABNORMAL) POCT RAMSES-14 Urine Drug Screen (04/03/2025 2:19 PM EST) THC Positive(A) Negative Cocaine Screen, Urine Negative Negative Opiate Screen, Urine Negative Negative Methamphetamine Screen Urine Negative Negative Amphetamine Screen, Urine Positive(A) Negative Benzodiazepines Screen, Urine Negative Negative Barbiturate Screen, Urine Negative Negative Methadone Screen, Urine Negative Negative Buprenophine Screen, Urine Positive(A) Negative TCA, Urine Negative Negative MDMA Urine Negative Negative ng/mL Oxycodone Screen, Urine Negative Negative Phencyclidine (PCP), Urine Negative Negative Fentanyl, Urine Negative Negative Urine Urine specimen obtained by clean catch procedure / Unknown 04/03/2025 2:19 PM EST Rut Branham MD POINT OF CARE TEST ENTER/IY T ORDERABLES Final Result documented in this encounter Visit Diagnoses Diagnosis Uncomplicated opioid dependence (CMS/HCC) (HCC)- Primary documented in this encounter Additional Health Concerns Assessment Noted Time PHQ-9 Depression Total Score: 7 10/05/19 2:06 PM EDT documented as of this encounter Care Teams Manager Environmental Health Relationship Specialty Start Date End Date Naheed Zaman ANP 230 [place] [address] PCP - General Family Medicine 01/18/22 Real Gomez MD [address] [place] [address] Drive 3rd [place] [address] Cardiology 10/01/24 Karla Mattson 04/03/25 04/04/25 Kalpesh Calles Bobtail DriverGeothermal Powerplant Supervisor 02/21/25 documented as of this encounter
--- OUTSIDE RECORDS SUMMARY | 2025-04-04 14:30 | XMS_ITS | Encounter Summary ---
Author Organization [employer] Address [address] [facility] 7t [place] [address] Care Team Providers Care Diplomatic Officer Name Role Phone Naheed Zaman Primary Care Provider [phone] Real Gomez MD Unavailable Karla Mattson Unavailable Reason for Visit * Reason Comments Annual Exam Encounter Details Date Type Department Care Team (Latest Contact Info) Description 04/04/2025 2:30 PM EST Office Visit [facility] MEDICINE [address] [place] [address] Naheed Zaman ANP [address] [place] [address] Hypomagnesemia (Primary Dx); KUNAL (acute kidney injury); [...] fibrosis. Now following w/ bariatrics/wt mgmt at [facility] Acute Concerns: ED visit for CP, SOB, [...] request refills of phentermine and moujaro from [facility] but if this does not work, I will refill. He needs PT-1 for [place] visits. Frustrated as he applied and got [...] request refills of phentermine and mounjaro from [facility] but if this does not work, I will refill. He needs PT-1 for [place] visits. Requested PT-1 from Future Appointments Date Time Provider Department Center 04/29/2025 1:00 PM Billy Brooke PharmD MEDICINE [facility] 06/26/2025 3:00 PM Rut Branham MD [facility] Follow Up: as scheduled Medications Ordered Prior to Encounter[4] Araceli ROSSI provided Mongolian interpretation. [1] Patient Active Problem List Diagnosis [...] 45 g 2 Blood Glucose Monitoring Suppl (LiftDNAStyle [place] Lite) w/Device kit TEST BLOOD SUGAR FOUR TIMES DAILY Blood Pressure Monitor kit 1 kit in the morning. 1 kit 0 chlorhexidine (Peridex) 0.12 % solution Swish 15 mL morning and night for 1 minute. Spit, do not swallow. Do not eat or drink for 30 minutes following use. 473 mL 0 Continuous Glucose External Grinder (FreeStyle Casey 2 [place]) device Scan sensor every 8 hours 1 each 0 Continuous Glucose Sensor (FreeStyle Casey 2 Sensor) [facility] Apply 1 sensor every 14 days 2 [...] day. 84 Film 2 Sure Comfort Pen [place] 31G X 5 MM misc USE FOUR [...] Info) Description 04/29/2025 1:00 PM EST Telemedicine [facility] MEDICINE [address] [place] [phone] Billy Brooke, PharmD [address] [place] [address] 06/26/2025 3:00 PM EST Office Visit [facility] MEDICINE [address] [place] [phone] Rut Branham MD [address] [place] [address] documented as of this encounter Procedures Procedure Name Priority Date/Time Associated Diagnosis Comments CBC WITH AUTO DIFFERENTIAL Routine 04/07/2025 9:11 AM EST Anemia, unspecified type MAGNESIUM Routine 04/07/2025 9:11 AM EST Hypomagnesemia documented in this encounter Results * (ABNORMAL) CBC auto differential (04/07/2025 9:11 AM EST) White Blood Count 5.8 4.8 - 10.8 X10*3/uL [facility] Red Blood Count 4.31(L) 4.60 - 5.80 X10*6/uL [facility] Hemoglobin 12.3(L) 14.0 - 18.0 g/dl [facility] Hematocrit 37.6(L) 42.0 - 52.0 % [facility] Mean Corpuscular Volume 87.2 80.0 - 98.0 fL [facility] Mean Corpuscular Hemoglobin 28.5 27.0 - 33.0 pg [facility] Mean Corpuscular HGB Conc 32.7 31.0 - 36.0 g/dl [facility] Red Cell Distribution Width 12.4 11.0 - 16.0 % [facility] Platelet Count 119(L) 160 - 400 X10*3/uL [facility] Mean Platelet Volume 12.6(H) 9.4 - 12.4 fL [facility] Neutrophils Percent Auto 55.1 45 - 73 % [facility] Imm Gran Pct Auto 0.3 0.0 - 0.4 % [facility] Lymphocytes Percent Auto 32.7 20 - 40 % [facility] Monocytes Percent Auto 7.7 2 - 11 % [facility] Eosinophils Percent Auto 3.9 0 - 4 % [facility] Basophils Percent Auto 0.3 0 - 2 % [facility] NRBC Pct Auto 0.0 0.0 - 0.2 /100WBC [facility] Neutrophils Absolute Auto 3.2 2.0 - 8.3 x10*3/uL [facility] Imm Gran Abs Auto 0.02 0.00 - 0.03 X10*3/uL [facility] Lymphocytes Absolute Auto 1.9 1.2 - 4.9 X10*3/uL [facility] Monocytes Absolute Auto 0.5 0.1 - 1.2 X10*3/uL [facility] Eosinophils Absolute Auto 0.2 0.0 - 0.4 X10*3/uL [facility] Basophils Absolute Auto 0.0 0.0 - 0.2 X10*3/uL [facility] NRBC Abs Auto 0.000 0.0 - 0.012 X10*3/uL [facility] Blood Venous blood specimen / Unknown 04/07/2025 9:11 AM EST 04/07/2025 11:22 AM EST Naheed Zaman ANP LAB BLOOD ORDERABLES Final Resul t Performing Organization Address City/[facility] Co de Phone Number [facility] [address] [place] [phone] * Magnesium (04/07/2025 9:11 AM EST) Magnesium 1.6 1.6 - 2.6 mg/dL [facility] Blood Venous blood specimen / Unknown 04/07/2025 9:11 AM EST 04/07/2025 11:22 AM EST Naheed Zaman ANP LAB BLOOD ORDERABLES Final Resul t Performing Organization Address [facility] Co de Phone Number [facility] [address] [place] [phone] documented in this encounter Visit Diagnoses Diagnosis Hypomagnesemia- Primary Disorders of magnesium metabolism KUNAL (acute kidney injury) Severe episode of recurrent major depressive disorder, without psychotic features ([facility]) (HCC) Diabetic nephropathy with proteinuria (HCC) Pulmonary hypertension ([facility]/HCC) (HCC) Other chronic pulmonary heart diseases Type 2 diabetes mellitus with hyperlipidemia ([facility]) Anemia, unspecified type Nocturnal leg cramps BETSY [...] documented as of this encounter Care Teams Diplomatic Officer Relationship Specialty Start Date End Date Naheed Zaman ANP [address] [place] [phone] PCP - General Family Medicine 01/18/22 Real Gomez MD [address] [place] [address] 3rd [place] [address] Cardiology 10/01/24 Karla Mattson 04/03/25 04/04/25 Kalpesh Calles Explosive Operator SupervisorInformation Systems Architect 02/21/25 documented as of this encounter
--- NOTE | 2025-04-08 11:04 | MHC.OFFVIS ---
Vital Signs 04/08/25 11:05 Height 5 ft 5 in Weight 386 lb 4 oz BMI 64.3 BP 118/64 Blood Pressure Location Lt radial Position Sitting Pulse 70 Pulse Source Pulse Oximeter Pulse Oximetry (%) 99 Oxygen Delivery Method Room Air Intake Visit Reasons: dyspnea, sleep apnea Civil Design Technician Required: Yes Civil Design Technician Language: Biomedical Engineering Technologist Services: Civil Design Technician Present Civil Design Technician Name: Cece Mancuso LM Allergies seafood Allergy (Severe, Verified 04/08/25 11:08) Swelling HPI HPI dyspnea, sleep apnea: Details: Ross is a pleasant 44-year-old male, former minimal smoker, with underlying asthma and severe obstructive sleep apnea. The patient has been using a CPAP machine since 2007 to manage his obstructive sleep apnea, which was diagnosed as severe with AHI 120. A recent sleep study in 2022 revealed AHI of 120, mild nocturnal hypoxemia which significantly improved with CPAP therapy setting 17 cm H2O. He is under the care of sleep medicine for BETSY. The patient reports a history of asthma, which was diagnosed in childhood and has been without an inhaler for some time. Recent pulmonary function tests suggestive of asthma with significant response to bronchodilators in the small to medium airways as well as increased residual volume suggestive of air trapping. The patient experiences dyspnea, particularly when lying flat, and reports a sensation of chest tightness and a need for more air when breathing. Recent cardiac workup did not reveal any significant abnormalities. Chest x-ray March 2025 did not reveal any abnormal findings other than poor inspiration. He has a history of exposure to secondhand smoke and environmental allergens, which may exacerbate his respiratory symptoms. He denies any pertinent family history. Denies any occupational exposures. PENDING SALE TO [facility] Medical History Seronegative spondyloarthropathy Vitamin D deficiency Elevated C-reactive protein (CRP) Fibromyalgia Polyarthralgia Narcotic dependence Thrombocytopenia Carpal tunnel syndrome Sleep apnea Pre-op evaluation Hx of migraines BETSY on CPAP Pre-op evaluation HTN (hypertension), benign Insulin dependent type 1 diabetes mellitus Morbid obesity Shoulder dislocation Diabetes Surgical History Hx of colonoscopy History of esophagogastroduodenoscopy (EGD) Hx of hernia repair Hx of appendectomy Family History Mother No problems noted. Brother No problems noted. Daughter No problems noted. Daughter No problems noted. Daughter No problems noted. Son No problems noted. Son No problems noted. 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 Review of Systems Const Denies chills, Denies excessive sweating, Denies fever(s), Denies headache(s) and Denies night sweats Eyes Denies dry eyes, Denies irritation and Denies itchy eyes ENT Reports Normal hearing present, Denies headache(s), Denies nasal congestion, Denies nasal discharge, Denies post nasal drip and Denies sore throat Card Denies chest pain, Denies chest pain at rest, Denies chest pain with activity, Denies claudication, Denies leg edema, Denies orthopnea and Denies paroxysmal nocturnal dyspnea Resp Denies chest congestion, Denies excessive phlegm production, Denies pain on inspiration, Denies pain with cough and Denies stridor Musc Denies myalgias Neuro Reports Normal hearing present and Denies headache(s) Endo Denies excessive sweating Dennis/Lymph Denies lymphadenopathy Aller/Immun Denies itchy eyes and Denies seasonal rhinorrhea Physical Exam Vital Signs: Last Vital Signs Pulse 70 04/08/25 11:05 BP 118/64 04/08/25 11:05 Pulse Ox 99 04/08/25 11:05 Oxygen Delivery Method Room Air 04/08/25 11:05 BMI result Body Mass Index 64.3 Const General: cooperative, healthy appearing, comfortable, no acute distress, well developed and alert Nutritional Appearance: obese Orientation/consciousness: patient oriented x3 Limitations: no limitations HEENT Head: Yes normal to inspection, Yes normocephalic and Yes atraumatic Ears: hearing grossly normal bilaterally and external ears normal Eyes General: appearance normal, both eyes and all related structures Eyelids: Yes eyelids normal Sclerae: sclerae normal EOM: EOMs intact bilaterally Neck Neck: Yes normal visual inspection and Yes no lymphadenopathy Lymphatic: no lymphadenopathy noted Chest Chest palpation & inspection: normal inspection of the chest Resp Effort & Inspection: normal respiratory effort, able to speak in complete sentences, no audible wheezes, no cough, no stridor, not tachypneic, no tripod positioning and no use of accessory muscles Auscultation: diminished lung sounds Cardio Jugular venous distension: no JVD Rate: regular rate Rhythm: regular rhythm Skin Other: warm, dry General skin exam: no rashes or lesions noted Neuro General: patient oriented x3 Cranial nerves: Yes Normal hearing present Cognition (Neuro): normal cognition Gait exam (Neuro): Normal gait present Extrem General: Yes normal to inspection, Yes capillary refill normal, Yes no clubbing, cyanosis or edema and Yes no pedal edema Psych Appearance: grossly normal and well kempt Speech and movement: Normal speech and movement present and Clear speech present Affect: normal affect Attitude: cooperative Thought process: Normal thought process present Thought content: Normal thought content present Insight: Good insight present (Psych) Judgement: Good judgement present (Psych) Results Reviewed Results Reviewed: [address] [address] XRay Report Signed Patient: Ross Navarrete MR#: [id number] : 1980 Acct:[id number] Age/Sex: 44 / M ADM Date: 04/02/25 Loc: .ED Attending Dr: Ordering Physician: Judi Butler Date of Service: 04/02/25 Procedure(s): XR chest 2V Accession Number(s): [id number] cc: Judi Butler; SOFIA MITCHELL NP~ Reason for Exam: Chest pain EXAMINATION: XR CHEST CLINICAL INFORMATION: Chest pain COMPARISON: September 12, 2024 TECHNIQUE: PA and lateral views FINDINGS: Patient's large body habitus. Poor inspiration. No consolidation, pleural effusion or pneumothorax. Cardiomediastinal silhouette size is normal. Multilevel thoracolumbar spondylosis. Degenerative changes in the shoulders. XR/XR chest 2V IMPRESSION: No acute airspace disease. Electronically signed by: Dionisio Stokes MD 04/02/2025 09:38 AM [facility] Dictated By: Dionisio Okeefe MD Signed By: <Electronically signed by Dionisio Hill MD in OV> 04/02/25937 DD/ 9 TD/TT: 04/02/25936 Commercial Collections Specialist: Assessment & Plan Assessment & Plan (1) Asthma: Code(s): J45.909 - Unspecified asthma, uncomplicated Category: Medical (2) Environmental allergies: Code(s): Z91.09 - Other allergy status, other than to drugs and biological substances Category: Medical (3) Severe obstructive sleep apnea: Code(s): G47.33 - Obstructive sleep apnea (adult) (pediatric) Category: Medical (4) Morbid obesity: Code(s): E66.01 - Morbid (severe) obesity due to excess calories Category: Medical Plan The patient is advised to restart an inhaler to manage asthma symptoms, including dyspnea and chest tightness. A steroid inhaler will be prescribed, and the patient is instructed to rinse his mouth after use to prevent thrush. An albuterol inhaler will be provided for use as needed for acute symptoms. Discussed importance of weight loss and patient working towards this with plan for bariatric surgery in the near future. Will send for RAST to assess for an allergic component. All questions were answered and patient is in agreement of plan. Will follow-up in 6-8 weeks or sooner if needed. Orders: Orders Resp Allergy Profile Region I Today Z91.09 - Other allergy status, other than to drugs and biological substances Immunoglobulin E Today Z91.09 - Other allergy status, other than to drugs and biological substances Medications: New albuterol sulfate 90 mcg/actuation 2 puffs inhalation Q4-6H PRN 1 ea 3RF shortness of breath or wheezing fluticasone furoate 100 mcg/actuation (Arnuity Ellipta) 1 inh inhalation DAILY 30 ea 3RF Coding Level of Care Code New Pt Level 4 (84021) Diagnoses Asthma J45.909 Environmental allergies Z91.09 Severe obstructive sleep apnea G47.33 Morbid obesity E66.01
[2025-04-08 11:05] VITALS: BP 118/64; PULSE 70; O2SAT 99; BMI 64.3
--- OUTSIDE RECORDS SUMMARY | 2025-04-08 13:09 | XMS_ITS | Encounter Summary ---
Author Organization [employer] [facility] Address [address] [facility] 7t [place] [address] Care Team Providers Care Trade Clerk Name Role Phone Naheed Zaman Primary Care Provider [phone] Real Gomez MD Unavailable Chico Kebede RN Unavailable [phone] Karla Mattson Unavailable Encounter Details Date Type Department Care Team (Latest Contact Info) Description 12/29/2021 Abstract [facility] CONVERSIONS Dental, Provider, DDS Social History Tobacco [...] Info) Description 04/29/2025 1:00 PM EST Telemedicine [facility] MEDICINE [address] [place] [address] Billy Brooke, PharmD [address] [place] [address] 06/26/2025 3:00 PM EST Office Visit [facility]ICINE [address] [place] [address] Rut Branham MD [address] [place], [place] [phone] documented as of this encounter Visit Diagnoses Not on filedocumented in this encounter Care Teams Trade Clerk Relationship Specialty Start Date End Date Naheed Zaman ANP [address] [place] [address] PCP - General Family Medicine 01/18/22 Real Gomez MD [address] [facility] 3rd [place] [address] Cardiology 10/01/24 Chico Kebede, APRIL [address] [place] [address] Registered Nurse Family Medicine 02/03/25 02/03/25 Karla Mattson 04/03/25 04/04/25 Kalpesh Calles Straw Hat Plunger OperatorFox Farmer 02/21/25 documented as of this encounter
--- OUTSIDE RECORDS SUMMARY | 2025-04-08 13:09 | XMS_ITS | Encounter Summary ---
Author Organization [employer] Address [address] [facility] 7t [place] [address] Care Team Providers Care Human Resources Supervisor Name Role Phone Naheed Zaman Primary Care Provider [phone] Real Gomez MD Unavailable Karla Mattson Unavailable Reason for Visit * Reason Onset Date Comments chart prep 04/03/2025 Encounter Details Date Type Department Care Team (Late st Contact Info) Description 04/03/[address] [facility] MEDICINE [address] [place] [address] Naheed Zaman ANP [address] [place] [address] chart prep Social History Tobacco Use Types [...] Description 04/29/2025 1:00 PM EST Telemedicine [facility] [address] [place] [address] Billy Brooke, OzzieD [address] [place] [address] 06/26/2025 3:00 PM EST Office Visit [facility] [address] [place] [address] Rut Branham MD 230 [place] [address] documented as of this encounter Visit Diagnoses Not on filedocumented in this encounter Additional Health Concerns Assessment Noted Time PHQ-9 Depression Total Score: 7 10/05/19 25 2:06 PM EDT documented as of this encounter Care Teams Human Resources Supervisor Relationship Specialty Start Date End Date Naheed Zaman ANP [address] [place] [address] PCP - General Family Medicine 01/18/22 Real Gomez MD [address] [place] [address] 3rd [place] [address] Cardiology 10/01/24 Karla Mattson 04/03/25 04/04/25 Kalpesh Calles Shear Grinder OperatorProduction Stage Manager 02/21/25 documented as of this encounter
--- OUTSIDE RECORDS SUMMARY | 2025-04-08 13:09 | XMS_ITS | Clinical Summary ---
Author Organization [facility] Address [address] [place] [address] Care Team Providers Care Examination Grader Name Role Phone Unavailable Primary Care Provider [...] AM EST): Patient refused to be seen, [place] team lead was notified. Assessment & Plan [...] connected on video call until arrival of [place] Police with recommendation to section patient [...] 11/14/2023 10/17/2023 Alcohol and Drug Screen 05/29/2024 [id number] (2024- season) 01/27/202512/29/ 021, 12/10/2020 Imm-Influenza (#1) 2025 02/27/2012, 01/27/2011 Diabetes Screening 10/08/2025 10/08/2024, 0 09/12/2024, 05/16/2024, Additional history exists Lipid Screening 04/24/2029 04/24/2024, 05/29, 02/27/2020 Imm-DTaP/Tdap/Td (3 - Td or Tdap) 10/16/2033 024, 03/15/2011 Hepatitis C Screening Completed 10/11/2023 HIV Screening Completed 12/13/2023, 11/26, 12/16/2021 Insurance [facility] [place] MEDICAID
--- OUTSIDE RECORDS SUMMARY | 2025-04-08 13:09 | XMS_ITS | Encounter Summary ---
Author Organization [employer] Address [address] [address] 7t [place] [address] Care Team Providers Care Rate Examiner Name Role Phone Naheed Zaman Primary Care Provider [phone] Real Gomez MD Unavailable Karla Mattson Unavailable Reason for Visit * Reason Comments Care Coordination Communication to pts Assigned CP Coordinator Encounter Details Date Type Department Care Team (Latest Contact Info) Description 04/04/2025 Patient Outreach [facility] MED & PEDS [address] [place] [address] Naheed Zaman ANP [address] [place] [address] Care Coordination (Communication to pts Assigned CP [...] received notification that the patient went to [facility] ED on 04/02/25 . The patient has [facility] nurse for a status check, but was unsuccessful. If you are able to connect with the patient, please advise the patient to contact the [facility] for an ED follow up with the provider. If there are any questions or concerns, please feel free to reach out to me. Thank You documented in this encounter Plan of Treatment Upcoming Encounters Date Type Department Care Team ([facility] st Contact Info) Description 04/29/2025 1:00 PM EST Telemedicine [facility] MEDICINE [address] [place], [place] [phone] Billy Brooke, PharmD [address] [place], [place] [phone] 06/26/2025 3:00 PM EST Office Visit [facility] [address] [facility] [place] [place] [phone] Rut Branham MD [address] [place], [place] [phone] documented as of this encounter Visit Diagnoses Not on filedocumented in this encounter Additional Health Concerns Assessment Noted Time PHQ-9 Depression Total Score: 7 10/05/19 25 2:06 PM EDT documented as of this encounter Care Teams Rate Examiner Relationship Specialty Start Date End Date Naheed Zaman ANP [address] [place], [place] [phone] PCP - General Family Medicine 01/18/22 Real Gomez MD [address] [place] [address] 3rd [place] [address] Cardiology 10/01/24 Karla Mattson 04/03/25 04/04/25 Kalpesh Calles Founder Ceo & PresidentJeep Driver 02/21/25 documented as of this encounter
--- OUTSIDE RECORDS SUMMARY | 2025-04-08 13:09 | XMS_ITS | Encounter Summary ---
Author Organization [employer] Address [address] [facility] 7t [place] [address] Care Team Providers Care Branch Lending Manager Name Role Phone Naheed Zaman Primary Care Provider [phone] Real Gomez MD Unavailable Karla Mattson Unavailable Reason for Visit * Reason Onset Date Comments Nurse Triage 04/03/2025 Encounter Details Date Type Department Care Team (Late st Contact Info) Description 04/03/2025 Telephone [facility] [address] [place] [address] Naheed Zaman ANP [address] [place] [address] Nurse Triage Social History Tobacco Use Types [...] 2:33 PM EST TC placed to patient [phone] using S #ID [id number] regarding below message. RN left an VM for the patient to Nurse triage line. * Telephone Encounter - Felipe Stiles - 04/03/2025 11:46 AM EST Patient calling to report ED visit on : Date: 04/02 Hospital: [facility] Seen for: chest pain , shortness of breathe, right side body pain Symptomatic Yes *if yes message should go to Triage Patient advised will forward to team nurse for follow up Contact pt at [phone] (sudanese) documented in this encounter Plan of Treatment Upcoming Encounters Date Type Department Care Team (Late st Contact Info) Description 04/29/2025 1:00 PM EST Telemedicine [facility] MED[facility]INE [address] [place] [phone] Billy Brooke, PharmD [address] [place] [address] 06/26/2025 3:00 PM EST Office Visit [facility] [address] [place] [address] Rut Branham MD 230 [place] [address] documented as of this encounter Visit Diagnoses Not on filedocumented in this encounter Additional Health Concerns Assessment Noted Time PHQ-9 Depression Total Score: 7 10/05/19 25 2:06 PM EDT documented as of this encounter Care Teams Branch Lending Manager Relationship Specialty Start Date End Date Naheed Zaman ANP [address] [place] [address] PCP - General Family Medicine 01/18/22 Real Gomez MD [address] [place] [address] 3rd [place] [address] Cardiology 10/01/24 Karla Mattson 04/03/25 04/04/25 Kalpesh Calles Manager Of Organizational DevelopmentLoom Mechanic 02/21/25 documented as of this encounter
--- OUTSIDE RECORDS SUMMARY | 2025-04-08 13:09 | XMS_ITS ---
Author Organization [employer] Address [address] [place] [address] 7t [place] [address] Care Team Providers Care Environmental Manager Name Role Phone Naheed Zaman Primary Care Provider [phone] Real Gomez MD Unavailable [facility] Status:Closed (Closed) Start date:04/03/2025 Enrollment reason:ADT Feed End date:04/04/2025 Close reason:Transferred to Community Partner Overview CP Assigned Patient- [place] [facility] [place] [facility] [place]. Continued Care and Services Coordination
--- OUTSIDE RECORDS SUMMARY | 2025-04-08 13:09 | XMS_ITS | Encounter Summary ---
Author Organization [employer] Address [address] [facility] 7t [place] [address] Care Team Providers Care Film Examiner Name Role Phone Naheed Zaman Primary [...] 04/29/2025 1:00 PM EST Telemedicine [facility] MEDICINE [address] [place] [phone] Billy Brooke, PharmD [address] [place] [address] 06/26/2025 3:00 PM EST Office Visit [facility] [address] [place] [address] Rut Branham MD [address] [place] [address] documented as of this encounter Visit Diagnoses Not on filedocumented in this encounter Additional Health Concerns Assessment Noted Time PHQ-9 Depression Total Score: 7 10/05/19 25 2:06 PM EDT documented as of this encounter Care Teams Film Examiner Relationship Specialty Start Date End Date Naheed Zaman ANP [address] [place] [address] PCP - General Family Medicine 01/18/22 Real Gomez MD [address] 3rd [place] [address] Cardiology 10/01/24 Karla Mattson 04/03/25 04/04/25 Kalpesh Calles Roll WrapperMelt Supervisor 02/21/25 documented as of this encounter
--- OUTSIDE RECORDS SUMMARY | 2025-04-08 13:09 | XMS_ITS | Encounter Summary ---
Author Organization [employer] Address [address] [facility] 7t [place] [address] Care Team Providers Care Cardiopulmonary Physical Therapist Name Role Phone Naheed Zaman Primary Care Provider [phone] Real Gomez MD Unavailable Karla Mattson Unavailable [...] EST Telemedicine [facility] MEDICINE [address] [place] [phone] Billy Brooke, PharmD [address] [place] [address] 06/26/2025 3:00 PM EST Office Visit [facility] MEDICINE [address] [place] [address] Rut Branham MD [address] [place] [address] documented as of this encounter Visit Diagnoses Not on filedocumented in this encounter Additional Health Concerns Assessment Noted Time PHQ-9 Depression Total Score: 7 10/05/19 25 2:06 PM EDT documented as of this encounter Care Teams Cardiopulmonary Physical Therapist Relationship Specialty Start Date End Date Naheed Zaman ANP [address] [place] [address] PCP - General Family Medicine 01/18/22 Real Gomez MD [address] 3rd [place] [address] Cardiology 10/01/24 Karla Mattson 04/03/25 04/04/25 Kalpesh Calles Medical Health ResearcherHome Theater Expert 02/21/25 documented as of this encounter
--- OUTSIDE RECORDS SUMMARY | 2025-04-08 13:09 | XMS_ITS | Encounter Summary ---
Author Organization [employer] Address [address] 7t [place] [address] Care Team Providers Care Glass Engraver Name Role Phone Naheed Zaman Primary Care Provider [phone] Real Gomez MD Unavailable Karla Mattson Unavailable Reason for Visit * Reason Comments Care Coordination CP Care Coordination Chart Review Encounter Details Date Type Department Care Team (Latest Contact Info) Description 04/03/2025 Patient Outreach [facility] MED [facility] PEDS [address] [place] [address] Naheed Zaman ANP [address] [place] [address] Care Coordination (CP Care Coordination Chart Review) [...] is assigned to CP Program ICP to Prevention Rn Kalpesh Calles. [facility] [place] [facility] [place]. Last appointment in PCP office on 03/27/25. Next appointment scheduled for 06/27/24. documented in this encounter Plan of Treatment Upcoming Encounters Date Type Department Care Team (Late st Contact Info) Description 04/29/2025 1:00 PM EST Telemedicine [facility] MEDICINE [address] [place] [address] Billy Brooke, PharmD [address] [place] [address] 06/26/2025 3:00 PM EST Office Visit [facility] MED[facility]INE [address] [place] [address] Rut Branham MD [address] [place], [place] [phone] documented as of this encounter Visit Diagnoses Not on filedocumented in this encounter Additional Health Concerns Assessment Noted Time PHQ-9 Depression Total Score: 7 10/05/19 25 2:06 PM EDT documented as of this encounter Care Teams Glass Engraver Relationship Specialty Start Date End Date Naheed Zaman ANP [address] [place], [place] [phone] PCP - General Family Medicine 01/18/22 Real Gomez MD [address] [place] [address] 3rd [place] [address] Cardiology 10/01/24 Karla Mattson 04/03/25 04/04/25 Kalpesh Calles Cardiac TechnologistBilling Analyst 02/21/25 documented as of this encounter
--- OUTSIDE RECORDS SUMMARY | 2025-04-08 13:09 | XMS_ITS | Encounter Summary ---
Author Organization [employer] Address [address] [facility] [address] 7t [place] [address] Care Team Providers Care General Counsel Name Role Phone Naheed Zaman Primary Care Provider [phone] Real Gomez MD Unavailable Karla Mattson Unavailable Reason for Visit * Reason Onset Date Comments ER Follow-up 04/02/2025 Encounter Details Date Type Department Care Team (Latest Contact Info) Description 04/02/2025 Results Follow-Up [facility] 230 [place] [address] Naheed Zaman ANP 230 [place] [address] CBC auto differential, Comprehensive Metabolic Panel, Magnesium, [...] Telephone call placed to pt utilizing S #[id number] for ED status check. Pt reports he [...] AM EST [employer] checked. Pt currently in [facility] ED. Will retask to do status check [...] Info) Description 04/29/2025 1:00 PM EST Telemedicine [facility] [address] [place] [address] Billy Brooek, PharmD [address] [place] [address] 06/26/2025 3:00 PM EST Office Visit [facility] [address] [place] [address] Rut Branham MD 230 [place] [address] documented as of this encounter Visit Diagnoses Not on filedocumented in this encounter Additional Health Concerns Assessment Noted Time PHQ-9 Depression Total Score: 7 10/05/19 25 2:06 PM EDT documented as of this encounter Care Teams General Counsel Relationship Specialty Start Date End Date Naheed Zaman ANP 230 [place] [address] PCP - General Family Medicine 01/18/22 Real Gomez MD [address] [place] [address] 3rd [place] [address] Cardiology 10/01/24 Karla Mattson 04/03/25 04/04/25 Kalpesh Calles Pump House EngineerCardiothoracic Physiotherapist 02/21/25 documented as of this encounter
--- OUTSIDE RECORDS SUMMARY | 2025-04-08 13:09 | XMS_ITS | Encounter Summary ---
Author Organization [employer] Address [address] [facility] 7t [place] [address] Care Team Providers Care Wire Drawing Die Maker Name Role Phone Naheed Zaman Primary Care Provider [phone] Real Gomez MD Unavailable Chico Kebede RN Unavailable [phone] Karla Mattson Unavailable Reason for Visit * Reason Comments Med Refill Encounter Details Date Type Department Care Team (Late st Contact Info) Description 08/18/2023 Refill [facility] 230 [place], [place] [phone] Naheed Zaman ANP 230 [place], [place] [phone] Chronic low back pain without sciatica, unspecified [...] Info) Description 04/29/2025 1:00 PM EST Telemedicine [facility] [address] [place] [address] Billy Brooke, PharmD [address] [place] [address] 06/26/2025 3:00 PM EST Office Visit [facility] [address] [place] [address] Rut Branham MD [address] [place] [address] documented as of this encounter Visit Diagnoses Diagnosis Chronic low back pain without sciatica, unspecified back pain laterality documented in this encounter Additional Health Concerns Assessment Noted Time PHQ-9 Depression Total Score: 6 11/19/19 23 3:29 PM EDT documented as of this encounter Care Teams Wire Drawing Die Maker Relationship Specialty Start Date End Date Naheed Zaman ANP [address] [place] [address] PCP - General Family Medicine 01/18/22 Real Gomez MD [address] 3rd [place] [address] Cardiology 10/01/24 Chico Kebede, RN [address] [place] [address] Registered Nurse Family Medicine 02/03/25 02/03/25 Karla Mattson 04/03/25 04/04/25 Kalpesh Calles Component Prep OperatorDining Services Manager 02/21/25 documented as of this encounter
--- OUTSIDE RECORDS SUMMARY | 2025-04-08 13:09 | XMS_ITS | Encounter Summary ---
Author Organization [employer] Address [address] [facility] [address] 7t [place] [address] Care Team Providers Care Chrome Tanning Drum Operator Name Role Phone Naheed Zaman Primary Care Provider [phone] Real Gomez MD Unavailable Karla Mattson Unavailable Reason for Visit * Reason Comments Care Coordination [facility] E D follow up Encounter Details Date Type Department Care Team (Latest Contact Info) Description 04/03/2025 Patient Outreach [facility] [address] [place] [address] Naheed Zaman ANP 230 [place] [address] Care Coordination ([facility] ED follow up) Social History Tobacco Use [...] AM EST [facility] assigned patient visited [facility] ED on 04/02/25. ED visit note has [...] Info) Description 04/29/2025 1:00 PM EST Telemedicine [facility] 230 [place] [address] Billy Brooke, PharmD 230 [place] [address] 06/26/2025 3:00 PM EST Office Visit [facility] 230 [place], [place] [phone] Rut Branham MD 230 [place], [place] [phone] documented as of this encounter Visit Diagnoses Not on filedocumented in this encounter Additional Health Concerns Assessment Noted Time PHQ-9 Depression Total Score: 7 10/05/19 25 2:06 PM EDT documented as of this encounter Care Teams Chrome Tanning Drum Operator Relationship Specialty Start Date End Date Naheed Zaman ANP 230 [place], [place] [phone] PCP - General Family Medicine 01/18/22 Real Gomez MD [address] [place] [address] 3rd [place] [address] Cardiology 10/01/24 Karla Mattson 04/03/25 04/04/25 Kalpesh Calles Slabbing Machine OperatorReduction Furnace Operator Helper 02/21/25 documented as of this encounter
--- OUTSIDE RECORDS SUMMARY | 2025-04-08 13:09 | XMS_ITS | Encounter Summary ---
Author Organization [employer] Address 75 [facility] 7t [place] [address] Care Team Providers Care Director Of Content Marketing Name Role Phone Naheed Zaman Primary Care Provider [phone] Real Gomez MD Unavailable Karla Mattson Unavailable Encounter Details Date Type Department Care Team ([facility] st Contact Info) Description 04/03/2025 Patient Outreach [facility] 230 [place] [address] Naheed Zaman ANP 230 [place] [address] Social History Tobacco Use Types Packs/Day Years [...] Info) Description 04/29/2025 1:00 PM EST Telemedicine [facility] [address] [place] [address] Billy Brooke, PharmD [address] [place] [address] 06/26/2025 3:00 PM EST Office Visit [facility] [address] [place] [address] Rut Branham MD [address] [place] [address] documented as of this encounter Visit Diagnoses Not on filedocumented in this encounter Additional Health Concerns Assessment Noted Time PHQ-9 Depression Total Score: 7 10/05/19 25 2:06 PM EDT documented as of this encounter Care Teams Director Of Content Marketing Relationship Specialty Start Date End Date Naheed Zaman ANP [address] [place] [address] PCP - General Family Medicine 01/18/22 Real Gomez MD [address] [place] [address] 3rd [place] [address] Cardiology 10/01/24 Karla Mattson 04/03/25 04/04/25 Kalpesh Calles Java Development Team LeadRetirement Plan Specialist 02/21/25 documented as of this encounter
--- OUTSIDE RECORDS SUMMARY | 2025-04-08 13:09 | XMS_ITS | Encounter Summary ---
Author Organization [employer] Address [address] [facility] [address] [address] 7t [place] [address] Care Team Providers Care Dual Rate Supervisor Name Role Phone Naheed Zaman Primary Care Provider [phone] Real Gomez MD Unavailable Karla Mattson Unavailable Reason for Visit * Reason Onset Date Comments Durable Medical Equipment 04/04/2025 Encounter Details Date Type Department Care Team (Late st Contact Info) Description 04/04/[address] [facility] MEDICINE 230 [place] [address] Naheed Zaman ANP 230 [place] [address] Durable Medical Equipment Social History Tobacco Use [...] and sent to PCP for signature via Dipity. Once signed, will be faxed to [facility] and sent to scan. If patient calls to check status on above, please advise them to contact [facility] at [phone]. * Telephone Encounter - Nikia Brito - [...] EST Telemedicine [facility] 230 [place] [address] Billy Brooke, PharmD 230 [place] [address] 06/26/2025 3:00 PM EST Office Visit [facility] 230 [place] [address] Rut Branham MD 230 [place] [address] documented as of this encounter Visit Diagnoses Not on filedocumented in this encounter Additional Health Concerns Assessment Noted Time PHQ-9 Depression Total Score: 7 10/05/19 25 2:06 PM EDT documented as of this encounter Care Teams Dual Rate Supervisor Relationship Specialty Start Date End Date Naheed Zaman ANP 230 [place] [address] PCP - General Family Medicine 01/18/22 Real Gomez MD [address] 3rd [place] [address] Cardiology 10/01/24 Karla Mattson 04/03/25 04/04/25 Kalpesh Calles Public Relations OfficerEchocardiography Radiology Technologist 02/21/25 documented as of this encounter
--- OUTSIDE RECORDS SUMMARY | 2025-04-08 13:09 | XMS_ITS | Encounter Summary ---
Author Organization [employer] Address [address] [facility] [address] 7t [place] [address] Care Team Providers Care Puller Through Name Role Phone Naheed Zaman Primary Care Provider [phone] Real Gomez MD Unavailable Chico Kebede RN Unavailable [phone] Karla Mattson Unavailable Reason for Visit * Reason Comments Med Refill Encounter Details Date Type Department Care Team (Late st Contact Info) Description 09/26/2024 Refill [facility] 230 [place] [address] Desirae Cowan MD 230 [place] [address] Social History Tobacco Use Types Packs/Day Years [...] 04/29/2025 1:00 PM EST Telemedicine [facility] [address] [place] [address] Billy Brooke, PharmD [address] [place] [address] 06/26/2025 3:00 PM EST Office Visit [facility] [address] [place] [address] Rut Branham MD [address] [place] [address] documented as of this encounter Visit Diagnoses Not on filedocumented in this encounter Additional Health Concerns Assessment Noted Time PHQ-9 Depression Total Score: 25 024 8:12 AM EDT documented as of this encounter Care Teams Puller Through Relationship Specialty Start Date End Date Naheed Zaman ANP [address] [place] [address] PCP - General Family Medicine 01/18/22 Real Gomez MD [address] [place] [address] 3rd [place] [address] Cardiology 10/01/24 Chico Kebede, APRIL 505 [place] [address] Registered Nurse Family Medicine 02/03/25 02/03/25 Karla Mattson 04/03/25 04/04/25 Kalpesh Calles Customer Success AssociateBrokerage Coordinator 02/21/25 documented as of this encounter
--- OUTSIDE RECORDS SUMMARY | 2025-04-08 13:10 | XMS_ITS | Encounter Summary ---
Author Organization [employer] Address [address] [facility] [address] 7t [place] [address] Care Team Providers Care Fire Hose Curer Name Role Phone Naheed Zaman Primary Care Provider [phone] Real Gomez MD Unavailable Karla Mattson Unavailable Reason for Visit * Reason Onset Date Comments Durable Medical Equipment 04/01/2025 Encounter Details Date Type Department Care Team (Late st Contact Info) Description 04/01/2025 Telephone [facility] 230 [place] [address] Naheed Zaman ANP 230 [place] [address] Durable Medical Equipment Social History Tobacco Use [...] t he electric, gas, oil or water [email or web address] threatened to shut off services in your [...] Telemedicine [facility] 230 [place], [place] [phone] Billy Brooke, PharmD 230 [place], [place] [phone] 06/26/2025 3:00 PM EST Office Visit [facility] 230 [place], [place] [phone] Rut Branham MD 230 [place], [place] [phone] documented as of this encounter Visit Diagnoses Not on filedocumented in this encounter Additional Health Concerns Assessment Noted Time PHQ-9 Depression Total Score: 7 10/05/19 25 2:06 PM EDT documented as of this encounter Care Teams Fire Hose Curer Relationship Specialty Start Date End Date Naheed Zaman ANP 230 [place], [place] [phone] PCP - General Family Medicine 01/18/22 Real Gomez MD [address] [place] [address] 3rd [place] [address] Cardiology 10/01/24 Karla Mattson 04/03/25 04/04/25 Kalpesh Calles Cable Television Access CoordinatorTar Heat Exchanger Cleaner 02/21/25 documented as of this encounter
--- OUTSIDE RECORDS SUMMARY | 2025-04-08 13:10 | XMS_ITS | Clinical Summary ---
Author Organization [facility] Address [address] [place] [address] Phone Care Team Providers Care American Studies Professor Name Role Phone Naheed Zaman NP Primary Care Provider [phone] Allergies Active Allergy Reactions Criticality Noted Date [...] Description 02/05/2025 3:00 PM EDT Office Visit [facility] Medical Weight Management [address] [address] Sri Andrade MD Morbid obesity (Primary Dx); [...] Info) Description 06/11/2025 1:30 PM EST Telemedicine [facility] Medical Weight Management [address] [facility] [address] [place] [address] Felicity Puentes CNP 221 [place] [address] 10/30/2025 10:40 AM EDT Office Visit [facility] Medical Weight Management [address] [address] Sri Andrade MD [address] [address] [email or web address] Health Maintenance Due Date Last Done [...] Medical Devices Not on file Insurance [facility] C3 ACO [facility] C3 ACO [facility] C3 ACO Care Teams American Studies Professor Relationship Specialty Start Date End Date Naheed Zaman NP [address] [place] [address] PCP - General Nurse Practitioner 01/02/25 Additional Source Comments The information contained in this document represents components of the legal health record. It is not the complete legal health record.[facility]
--- OUTSIDE RECORDS SUMMARY | 2025-04-08 13:10 | XMS_ITS | Encounter Summary ---
Author Organization [employer] Address [address] [facility] 7t [place] [address] Care Team Providers Care Demonstrator Electric Gas Appliances Name Role Phone Naheed Zaman Primary Care Provider [phone] Real Gomez MD Unavailable Chico Kebede RN Unavailable [phone] Karla Mattson Unavailable Reason for Visit * Reason Onset Date Comments Durable Medical Equipment 10/04/2022 Encounter Details Date Type Department Care Team (Late st Contact Info) Description 10/04/2022 Telephone [facility] 230 [place], [place] [phone] Naheed Zaman ANP 230 [place], [place] [phone] Durable Medical Equipment Social History Tobacco Use [...] for Compressions socks. Please contact pt at [phone] documented in this encounter Plan of Treatment Upcoming Encounters Date Type Department Care Team (Late st Contact Info) Description 04/29/2025 1:00 PM EST Telemedicine [address] [address] Billy Brooke, PharmD [address] [place] [address] 06/26/2025 3:00 PM EST Office Visit [address] [address] Rut Branham MD 230 [place] [address] documented as of this encounter Visit Diagnoses Not on filedocumented in this encounter Care Teams Demonstrator Electric Gas Appliances Relationship Specialty Start Date End Date Naheed Zaman ANP 230 [place] [address] PCP - General Family Medicine 01/18/22 Real Gomez MD [address] 3rd [place] [address] Cardiology 10/01/24 Chico Kebede, APRIL 505 [place] [address] Registered Nurse Family Medicine 02/03/25 02/03/25 Karla Mattson 04/03/25 04/04/25 Kalpesh Calles Water Resources Project ManagerAircraft Rigging And Controls Mechanic 02/21/25 documented as of this encounter
--- OUTSIDE RECORDS SUMMARY | 2025-04-08 13:10 | XMS_ITS | Encounter Summary ---
Author Organization [employer] Address [address] [facility] [address] [facility] [address] 7t [place] [address] Care Team Providers Care Silviculture Teacher Name Role Phone Naheed Zaman Primary Care Provider Real Gomez MD Unavailable Chico Kebede RN Unavailable [phone] Karla Mattson Unavailable Reason for Visit * Reason Comments Med Refill Encounter Details Date Type Department Care Team (Late st Contact Info) Description 09/14/2023 Refill [facility]INE 230 [place], [place] [phone] Dayna Cardenas MD 230 [place], [place] [phone] Uncomplicated opioid dependence (CMS/HCC) Social History Tobacco [...] Info) Description 04/29/2025 1:00 PM EST Telemedicine [facility] [address] [place] [address] Billy Brooke, PharmD [address] [place] [address] 06/26/2025 3:00 PM EST Office Visit [facility] [address] [place] [address] Rut Branham MD [address] [place] [address] documented as of this encounter Visit Diagnoses Diagnosis Uncomplicated opioid dependence (CMS/HCC) (HCC) documented in this encounter Additional Health Concerns Assessment Noted Time PHQ-9 Depression Total Score: 6 11/19/19 23 3:29 PM EDT documented as of this encounter Care Teams Silviculture Teacher Relationship Specialty Start Date End Date Naheed Zaman ANP [address] [place] [address] PCP - General Family Medicine 01/18/22 Real Gomez MD [address] 3rd [place] [address] Cardiology 10/01/24 Chico Kebede, RN [address] [place] [address] Registered Nurse Family Medicine 02/03/25 02/03/25 Karla Mattson 04/03/25 04/04/25 Kalpesh Calles Deal ArchitectSupervisor Air Conditioning Installer 02/21/25 documented as of this encounter
--- OUTSIDE RECORDS SUMMARY | 2025-04-08 13:10 | XMS_ITS | Encounter Summary ---
Author Organization [facility] Address [address] [place] [address] 7t [place] [address] Care Team Providers Care Distribution Center Administrator Name Role Phone Naheed Zaman Primary Care Provider [phone] Real Gomez MD Unavailable Chico Kebede RN Unavailable [phone] Karla Mattson Unavailable Reason for Visit * Reason Comments Med Refill Encounter Details Date Type Department Care Team (Late Contact Info) Description 02/02/2023 Refill [facility] 230 [place] [address] Rut Branham MD 230 [place] [address] Uncomplicated opioid dependence (CMS/HCC) Social History Tobacco [...] 04/29/2025 1:00 PM EST Telemedicine [facility] MEDICINE 230 [place] [address] Billy Brooke, OzzieD 230 [place] [address] 06/26/2025 3:00 PM EST Office Visit [address] [address] Rut Branham MD 230 [place] [address] documented as of this encounter Visit Diagnoses Diagnosis Uncomplicated opioid dependence (CMS/HCC) (HCC) documented in this encounter Additional Health Concerns Assessment Noted Time PHQ-9 Depression Total Score: 6 11/19/19 23 3:29 PM EDT documented as of this encounter Care Teams Distribution Center Administrator Relationship Specialty Start Date End Date Naheed Zaman ANP 230 [place] [address] PCP - General Family Medicine 01/18/22 Real Gomez MD [address] [place] [address] 3rd [place] [address] Cardiology 10/01/24 Chico Kebede, APRIL [address] [place] [address] Registered Nurse Family Medicine 02/03/25 02/03/25 Karla Mattson 04/03/25 04/04/25 Kalpesh Calles LaryngologistExtension Clerk 02/21/25 documented as of this encounter
--- OUTSIDE RECORDS SUMMARY | 2025-04-08 13:10 | XMS_ITS | Encounter Summary ---
Author Organization [employer] Address [address] [facility] 7t [place] [address] Care Team Providers Care Collaborative Physician Name Role Phone Naheed Zaman Primary Care Provider [phone] Real Gomez MD Unavailable Chico Kebede RN Unavailable [phone] Karla Mattson Unavailable Reason for Visit * Reason Onset Date Comments Med Refill 01/03/2025 Encounter Details Date Type Department Care Team (Late st Contact Info) Description 01/03/2025 Refill [facility] 230 [place], [place] [phone] Rut Branham MD 230 [place] [address] Uncomplicated opioid dependence (CMS/HCC) Social History Tobacco [...] 04/29/2025 1:00 PM EST Telemedicine [facility] [address] [place] [address] Billy Brooke, PharmD [address] [place] [address] 06/26/2025 3:00 PM EST Office Visit [facility] [address] [place] [address] Rut Branham MD [address] [place] [address] documented as of this encounter Visit Diagnoses Diagnosis Uncomplicated opioid dependence (CMS/HCC) (HCC) documented in this encounter Additional Health Concerns Assessment Noted Time PHQ-9 Depression Total Score: 7 10/05/19 25 2:06 PM EDT documented as of this encounter Care Teams Collaborative Physician Relationship Specialty Start Date End Date Naheed Zaman ANP 230 [place] [address] PCP - General Family Medicine 01/18/22 Real Gomez MD [address] [facility] 3rd [place] [address] Cardiology 10/01/24 Chico Kebede, APRIL 505 [place] [address] Registered Nurse Family Medicine 02/03/25 02/03/25 Karla Mattson 04/03/25 04/04/25 Kalpesh Calles Drying Machine OperatorSolution Design Engineer 02/21/25 documented as of this encounter
--- OUTSIDE RECORDS SUMMARY | 2025-04-08 13:10 | XMS_ITS | Encounter Summary ---
Author Organization [employer] Address [address] [facility] [address] 7t [place] [address] Care Team Providers Care Timber Hewer Name Role Phone Naheed Zaman Primary Care Provider [phone] Real Gomez MD Unavailable Chico Kebede RN Unavailable [phone] Karla Mattson Unavailable Reason for Visit * Reason Onset Date Comments Med Refill 10/30/2024 Encounter Details Date Type Department Care Team (Late st Contact Info) Description 10/30/2024 Refill [facility] MED[facility]INE 230 [place], [place] [phone] Naheed Zaman ANP 230 [place], [place] [phone] Chronic low back pain without sciatica, unspecified [...] 04/29/2025 1:00 PM EST Telemedicine [facility] MEDICINE [address] [place] [address] Billy Brooke, PharmD [address] [place] [address] 06/26/2025 3:00 PM EST Office Visit [facility] MED[facility]INE [address] [place] [address] Rut Branham MD [address] [place] [address] documented as of this encounter Visit Diagnoses Diagnosis Chronic low back pain without sciatica, unspecified back pain laterality documented in this encounter Additional Health Concerns Assessment Noted Time PHQ-9 Depression Total Score: 7 10/05/19 2:06 PM EDT documented as of this encounter Care Teams Timber Hewer Relationship Specialty Start Date End Date Naheed Zaman ANP 230 [place] [address] PCP - General Family Medicine 01/18/22 Real Gomez MD [address] 3rd [place] [address] Cardiology 10/01/24 Chico Kebede, APRIL 505 [place] [address] Registered Nurse Family Medicine 02/03/25 02/03/25 Karla Mattson 04/03/25 04/04/25 Kalpesh Calles Billboard MechanicIp Litigation Associate 02/21/25 documented as of this encounter
--- OUTSIDE RECORDS SUMMARY | 2025-04-08 13:10 | XMS_ITS | Encounter Summary ---
Author Organization [employer] Address [address] [place] [address] Care Team Providers Care Night Shift Name Role Phone Naheed Zaman Primary Care Provider [phone] Real Gomez MD Unavailable Chico Kebede RN Unavailable [phone] Karla Mattson Unavailable Reason for Visit * Reason Onset Date Comments Med Refill 01/03/2025 Encounter Details Date Type Department Care Team (Late st Contact Info) Description 01/03/2025 Refill [facility] [address] [place], [place] [phone] Naheed Zaman ANP [address] [place] [address] Gastroesophageal reflux disease, unspecified whether esophagitis present; [...] 04/29/2025 1:00 PM EST Telemedicine [facility] [address] [place] [phone] Billy Brooke, PharmD [address] [place] [phone] 06/26/2025 3:00 PM EST Office Visit [facility] [address] [place] [phone] Rut Branham MD [address] [place] [phone] documented as of this encounter Visit Diagnoses Diagnosis Gastroesophageal reflux disease, unspecified whether esophagitis present Essential hypertension Unspecified essential hypertension Chronic low back pain without sciatica, unspecified back pain laterality documented in this encounter Additional Health Concerns Assessment Noted Time PHQ-9 Depression Total Score: 7 10/05/19 25 2:06 PM EDT documented as of this encounter Care Teams Night Shift Relationship Specialty Start Date End Date Naheed Zaman ANP [address] [place] [address] PCP - General Family Medicine 01/18/22 Real Gomez MD [address] [place] [address] 3rd [place] [address] Cardiology 10/01/24 Chico Kebede RN [address] [place] [phone] Registered Nurse Family Medicine 02/03/25 02/03/25 Karla Mattson 04/03/25 04/04/25 Kalpesh Calles Manager MultimediaHide Puller 02/21/25 documented as of this encounter
--- OUTSIDE RECORDS SUMMARY | 2025-04-08 13:10 | XMS_ITS | Encounter Summary ---
Author Organization [employer] Address [address] [place] [address] Care Team Providers Care Customer Equipment Engineer Name Role Phone Naheed Zaman Primary Care Provider Real Gomez MD Unavailable Chico Kebede RN Unavailable [phone] Karla Mattson Unavailable Reason for Visit * Reason Onset Date Comments [facility] 12/12/2023 Encounter Details Date Type Department Care Team (Late st Contact Info) Description 12/12/2023 Telephone [facility] ADULT DENTAL [address] [place], [place] [phone] Zay Schmidt DDS [address] [place] [address] [facility] Social History Tobacco Use Types [...] dental relief. Pain [facility] office phone number [phone] documented in this encounter Plan of Treatment Upcoming Encounters Date Type Department Care Team (Late st Contact Info) Description 04/29/2025 1:00 PM EST Telemedicine [facility] MEDICINE [address] [place] [phone] Billy Brooke, OzzieD [address] [place] [address] 06/26/2025 3:00 PM EST Office Visit [facility] MED[facility]INE [address] [place] [phone] Rut Branham MD [address] [place] [address] documented as of this encounter Visit Diagnoses Not on filedocumented in this encounter Additional Health Concerns Assessment Noted Time PHQ-9 Depression Total Score: 23 024 3:25 PM EDT documented as of this encounter Care Teams Customer Equipment Engineer Relationship Specialty Start Date End Date Naheed Zaman ANP [address] [place] [address] PCP - General Family Medicine 01/18/22 Real Gomez MD [address] [place] [address] 3rd [place] [address] Cardiology 10/01/24 Chico Kebede, APRIL [address] [place] [address] Registered Nurse Family Medicine 02/03/25 02/03/25 Karla Mattson 04/03/25 04/04/25 Kalpesh Calles Chip Machine OperatorAutomatic Typewriter Inspector 02/21/25 documented as of this encounter
--- OUTSIDE RECORDS SUMMARY | 2025-04-08 13:10 | XMS_ITS | Encounter Summary ---
Author Organization [employer] Address [address] [place] [address] Care Team Providers Care Math And Sciences Department Chair Name Role Phone Naheed Zaman Primary Care Provider [phone] Real Gomez MD Unavailable Chico Kebede RN Unavailable [phone] Karla Mattson Unavailable Reason for Visit * Reason Onset Date Comments callback requested 04/23/2024 Encounter Details Date Type Department Care Team ([facility] st Contact Info) Description 04/23/2024 Telephone [facility] MEDICINE [address] [place], [place] [phone] Naheed Zaman ANP [address] [place] [address] callback requested Social History Tobacco Use Types [...] returning call to Madie Olson Callback number [phone] documented in this encounter Plan of Treatment Upcoming Encounters Date Type Department Care Team (Late st Contact Info) Description 04/29/2025 1:00 PM EST Telemedicine [facility] [address] [place] [phone] Billy Brooke, PharmD [address] [place] [address] 06/26/2025 3:00 PM EST Office Visit [facility] [address] [place] [phone] Rut Branham MD [address] [place] [address] documented as of this encounter Visit Diagnoses Not on filedocumented in this encounter Additional Health Concerns Assessment Noted Time PHQ-9 Depression Total Score: 25 024 8:12 AM EDT documented as of this encounter Care Teams Math And Sciences Department Chair Relationship Specialty Start Date End Date Naheed Zaman ANP [address] [place] [address] PCP - General Family Medicine 01/18/22 Real Gomez MD [address] [place] [address] 3rd [place] [address] Cardiology 10/01/24 Chico Kebede, APRIL [address] [place] [address] Registered Nurse Family Medicine 02/03/25 02/03/25 Karla Mattson 04/03/25 04/04/25 Kalpesh Calles Foreign Food Specialty CookWood Scrap Handler 02/21/25 documented as of this encounter
--- OUTSIDE RECORDS SUMMARY | 2025-04-08 13:10 | XMS_ITS | Clinical Summary ---
Author Organization [employer] Address [address] [facility] [address] [place] [address] Care Team Providers Care Financial Adviser Name Role Phone Sofia Mitchell Primary Care Provider [phone] Real Gomez MD Unavailable Allergies Active Allergy Reactions Criticality Noted Date Comments Shellfish Allergy Other 05/02/2022 Difficulty breathing Medications * This document contains information received from the source organization and may not represent a complete record from that organization. Alcohol Swabs (Alcohol Prep) 70 % pads USE FOUR TIMES DAILY WITH INSULIN Active Blood Glucose Monitoring Suppl (FreeStyle Ririe Lite) w/Device kit TEST BLOOD SUGAR FOUR TIMES DAILY Active FREESTYLE LITE test strip TEST BLOOD SUGAR FOUR TIMES DAILY Active glucose blood (FREESTYLE LITE) test strip check fingerstick 4 times a day Active Sure Comfort Pen [place] 31G X 5 MM misc USE FOUR [...] Blood Pressure Monitor kitIndications:P ulmonary hypertension (CMS/HCC) ([facility]) 1 kit in the morning. 1 kit 024 Active chlorhexidine (Peridex) 0.12 % solution Swish 15 mL morning and night for 1 minute. Spit, do not swallow. Do not eat or drink for 30 minutes following use. 473 mL 024 Active Continuous Glucose Field Sales Trainer (FreeStyle Casey 2 [place]) deviceIndication s:Diabetes mellitus with albuminuria ([facility]) Scan sensor every 8 hours 1 each 024 Active Continuous Glucose Sensor (FreeStyle Casey 2 Sensor) miscIndications: Diabetes mellitus with albuminuria ([facility]) Apply 1 sensor every 14 days 2 each 11 024 Active olmesartan-hydro CHLOROthiazide (Benicar HCT) 40-12.5 MG tabletIndication s:Essential hypertension Take 1 tablet by mouth Once per day. 90 tablet 3 025 2025 Active insulin glargine (Lantus SoloStar) 100 UNIT/ML penIndications:T ype 2 diabetes mellitus with hyperlipidemia ([facility]) INJECT 40 UNITS SUBCUTANEOUSLY AT BEDTIME 15 [...] major depressive disorder, without psychotic features (CMS/HCC) ([facility]) TAKE 3 CAPSULES BY MOUTH EVERY MORNING [...] Pharmacy)) beta carotene (vitamin A) 3 MG (43602 UT) capsule TAKE 2 CAPSULES BY MOUTH [...] Health Integration Plan Internal Follow up with [facility] Patient Self Plan Patient to [...] Health Integration Plan Internal Follow up with [facility] Patient Self Plan Patient to reach out to [facility] team as needed, Comply with medication , [...] Health Integration Plan Internal Follow up with [facility] Patient Self Plan Patient to utilize skills provided in intervention , Patient to reach out to [facility] team as needed, and Patient to reach [...] Health Integration Plan Internal Follow up with [facility] External OP psychiatry Referral Patient Self Plan Patient to reach out to [facility] team as needed, Comply with medication , Patient to engage in OP therapy , and Patient to reach out to [facility] as needed Assessment & Plan (09/20/2023 10:06 AM EDT): New/Additional Services needed Off-site services for Behavioral Health Integration Plan External OP therapy referral Patient Self Plan Patient to utilize skills provided in intervention , Patient to reach out to [facility] team as needed, Comply with medication , [...] that she tried referring pt to [facility] and other centers and pt;s can not be evaluated for plastic surgery w current BMI -I request referral to be sent to [facility] but was explained is the [...] myelopathy or radiculopathy 04/26/2017 Overview (11/22/2024): Saw [facility] Rheumatology, now on humira which has been [...] sleep apnea) 05/18/2015 Overview (11/22/2024): Polysomnography 08/05/2009, [facility]: On cpap 14 cm H2O 10/23/2017 Home Sleep Study insufficient data. 08/2018 - Haylie ordered split night study. Titration was done 03/2023 and titrated to start cpap at [id number]. HST c/w AHI 124/hr and oxygen fritz to 70%, he was titrated Follows w/ [facility] Neurology and Sleep, Leyla De La Cruz PA Proteinuria 05/18/2015 Encounters * This document contains information received from the source organization and may not represent a complete record from that organization. Date Type Department Care Team Description 04/07/2025 Results Follow-Up [address] [address] Sofia Mitchell ANP CBC auto differential 04/04/2025 2:30 PM EST Office Visit [address] [address] Sofia Mitchell ANP Hypomagnesemia (Primary Dx); KUNAL [...] adult, unspecified obesity type (HCC) 04/04/[address] [address] Sofia Mitchell ANP Durable Medical Equipment 04/04/2025 Patient Outreach [facility] [address] [place] [address] Sofia Mitchlel ANP Care Coordination (Communication to pts Assigned CP Coordinator ) 04/04/2025 Travel 04/03/2025 3:00 PM EST Office Visit [address] [address] Rut Branham MD Uncomplicated opioid dependence (CMS/HCC) (HCC) (Primary Dx) 04/03/[address] [address] Sofia Mitchell ANP chart prep 04/03/2025 Travel 04/03/2025 Patient Outreach [facility] [address] [place] [address] Sofia Mitchell ANP Care Coordination (CP Care Coordination Chart Review) 04/03/[address] [address] Sofia Mitchell ANP Nurse Triage 04/03/2025 Patient Outreach [facility] [address] [place] [address] Sofia Mitchell ANP Care Coordination (Formerly [facility] ED follow up) 04/03/2025 Patient Outreach [facility] [place] [address] Sofia Mitchell ANP 04/02/2025 Results Follow-Up [facility] [place] [address] Sofia Mitchell ANP CBC auto differential, Comprehensive Metabolic Panel, Magnesium, Additional followed-up results: 2 04/02/2025 Orders Only GENERIC EXTERNAL DATA DEPARTMENT Provider, Generic External Data 04/01/2025 Telephone [facility] [place] [address] Sofia Mitchell ANP Durable Medical Equipment 03/31/2025 Telephone [facility] [place] [address] Sofia Mitchell ANP may03/27/2025 9:00 AM EDT Office Visit [facility] [place] [address] Sofia Mitchell ANP Severe episode of recurrent [...] lower extremities; Neck pain 03/27/2025 Orders Only [facility] [place] [address] Rut Branham MD HTN (hypertension) (Primary Dx) 03/27/2025 Travel 03/26/2025 Refill [facility] [place] [address] Rut Branham MD Uncomplicated opioid dependence (CMS/HCC) (HCC) 03/25/2025 1:30 PM EDT Telemedicine [facility] [place] [address] Billy Brooke, PharmD Diabetic nephropathy with proteinuria (HCC) (Primary Dx) 03/25/2025 Refill [facility] [address] [place] [address] Sofia Mitchell ANP Type 2 diabetes mellitus with hyperlipidemia (HCC); Severe episode of recurrent major depressive disorder, without psychotic features (CMS/HCC) (HCC); Gastroesophageal reflux disease, unspecified whether esophagitis present 03/25/2025 Telephone [facility] [address] [place] [address] Sofia Mitchell ANP chart prep 03/13/2025 Refill [facility] [address] [place] [address] Sofia Mitchell ANP Chronic low back pain without sciatica, unspecified back pain laterality; Urinary retention 02/21/2025 Telephone [facility] [address] [place] [address] Sofia Mitchell ANP Care Coordination (ICP Care Plan) 02/06/2025 2:00 PM EDT Clinical Support [address] [address] Tristen Chen RN Uncomplicated opioid dependence ([facility]/HCC) 02/06/2025 Travel 02/03/2025 Patient Outreach [address] [address] Sofia Mitchell ANP Care Coordination ([facility] Matthew Mccain f/u, program graduation) 02/03/2025 Patient Outreach [address] [address] Sofia Mitchell ANP Care Management ([facility]- f/u call) 01/30/2025 Refill [facility] [address] [place] [phone] Rut Branham MD Uncomplicated opioid dependence ([facility]/HCC) 01/29/2025 Refill [facility] [address] [place] [address] Rut Branham MD Uncomplicated opioid dependence ([facility]/HCC) 01/28/2025 Patient Outreach [facility] [address] [place] [address] Sofia Mitchell ANP 01/20/2025 Travel 01/20/2025 Patient Outreach [facility] [address] [place] [address] Sofia Mitchell ANP Care Coordination ([facility] MATTHEW Mccain f/u call ) 01/20/2025 Patient Outreach [facility] [address] [place] [address] Sofia Mitchell ANP Care Coordination (C3 f/u call) 01/17/2025 11:30 AM EDT Clinical Support [address] [address] Lela Witt RN Type 2 diabetes mellitus with hyperlipidemia (CMS/HCC) (CMS/HCC) 01/17/2025 Travel 01/16/[address] [address] Sofia Mitchell ANP Durable Medical Equipment 01/15/2025 Refill [facility] [address] [place] [address] Sofia iMtchell ANP Venous stasis dermatitis of both lower extremities 01/13/[address] [address] Sofia Mitchell ANP vasular 01/13/[address] [address] Sofia Mitchell ANP Vascular 01/10/2025 Results Follow-Up [address] [address] Sofia Mitchell ANP US BLADDER 01/09/2025 10:30 AM EDT Office Visit [address] [address] Sofia Mitchell ANP Type 2 diabetes mellitus with hyperlipidemia (CMS/HCC) (Primary Dx); Morbid obesity (CMS/HCC); Diabetic nephropathy with proteinuria (CMS/HCC); Pulmonary hypertension (CMS/HCC); MICHAEL (generalized anxiety disorder); Dietary counseling; Exercise counseling 01/09/2025 Travel 01/08/[address] [address] Sofia Mitchell ANP chart prep from Last 3 Months [...] Info) Description 04/29/2025 1:00 PM EST Telemedicine [facility] [address] [place] [address] Billy Brooke, PharmD [address] [place] [address] 06/26/2025 3:00 PM EST Office Visit [facility] [address] [place] [address] Rut Branham MD [address] [place] [address] Health Maintenance Due Date Last Done Comments [...] MAGNESIUM Routine 04/07/2025 9:11 AM EST Hypomagnesemia BASIC METABOLIC PANEL Routine 04/07/2025 9:11 AM EST Primary hypertension POCT RAMSES-14 URINE DRUG SCREEN Routine 04/03/2025 [...] with albuminuria Diabetes mellitus with albuminuria (CMS/HCC) ([facility]) from Last 3 Months or Most Recently Relevant to Health Maintenance Results * (ABNORMAL) CBC auto differential (04/07/2025 9:11 AM EST) Only the most recent of2 resultswithin the time period is included. White Blood Count 5.8 4.8 - 10.8 X10*3/uL [facility] Red Blood Count 4.31(L) 4.60 - 5.80 X10*6/uL [facility] Hemoglobin 12.3(L) 14.0 - 18.0 g/dl [facility] Hematocrit 37.6(L) 42.0 - 52.0 % [facility] Mean Corpuscular Volume 87.2 80.0 - 98.0 fL [facility] Mean Corpuscular Hemoglobin 28.5 27.0 - 33.0 pg [facility] Mean Corpuscular HGB Conc 32.7 31.0 - 36.0 g/dl [facility] Red Cell Distribution Width 12.4 11.0 - 16.0 % [facility] Platelet Count 119(L) 160 - 400 X10*3/uL [facility] Mean Platelet Volume 12.6(H) 9.4 - 12.4 fL [facility] Neutrophils Percent Auto 55.1 45 - 73 % [facility] Imm Gran Pct Auto 0.3 0.0 - 0.4 % [facility] Lymphocytes Percent Auto 32.7 20 - 40 % [facility] Monocytes Percent Auto 7.7 2 - 11 % [facility] Eosinophils Percent Auto 3.9 0 - 4 % [facility] Basophils Percent Auto 0.3 0 - 2 % [facility] NRBC Pct Auto 0.0 0.0 - 0.2 /100WBC [facility] Neutrophils Absolute Auto 3.2 2.0 - 8.3 x10*3/uL [facility] Imm Gran Abs Auto 0.02 0.00 - 0.03 X10*3/uL [facility] Lymphocytes Absolute Auto 1.9 1.2 - 4.9 X10*3/uL [facility] Monocytes Absolute Auto 0.5 0.1 - 1.2 X10*3/uL [facility] Eosinophils Absolute Auto 0.2 0.0 - 0.4 X10*3/uL [facility] Basophils Absolute Auto 0.0 0.0 - 0.2 X10*3/uL [facility] NRBC Abs Auto 0.000 0.0 - 0.012 X10*3/uL [facility] Blood Venous blood specimen / Unknown 04/07/2025 9:11 AM EST 04/07/2025 11:22 AM EST Sofia [facility] LAB BLOOD ORDERABLES Final Resul t Performing Organization Address City/[facility] de Phone Number [facility] [address] [place] [phone] * Magnesium (04/07/2025 9:11 AM EST) Only the most recent of2 resultswithin the time period is included. Magnesium 1.6 1.6 - 2.6 mg/dL [facility] Blood Venous blood specimen / Unknown 04/07/2025 9:11 AM EST 04/07/2025 11:22 AM EST Sofia Mitchell [facility] LAB BLOOD ORDERABLES Final Resul t Performing Organization Address [facility] de Phone Number [facility] [address] [place] [phone] * (ABNORMAL) Basic Metabolic Panel (04/07/2025 9:11 AM EST) Sodium 139 135 - 145 mmol/L [facility] Potassium 3.9 3.3 - 5.1 mmol/L [facility] Chloride 104 96 - 108 mmol/L [facility] Carbon Dioxide 27 22 - 29 mmol/L [facility] Anion Gap 12 12 - 20 [facility] Urea Nitrogen (BUN) 19(H) 9 - 16 mg/dL [facility] Creatinine, Serum 1.57(H) 0.5 - 1.4 mg/dL [facility] Estimated Glomerular Filt Rate 48 [facility] Comment:Chronic Kidney Disea se: Estimated GFR < 60 mL/min/1.02c4Pljhxr Kidney Disease: Estimated GFR < 15 mL/min/1.73m2 Glucose 147(H) 60 - 115 mg/dL [facility] Calcium 9.4 8.4 - 10.2 mg/dL [facility] Blood Venous blood specimen / Unknown 04/07/2025 9:11 AM EST 04/07/2025 11:22 AM EST Sofia RAHMAN LAB BLOOD ORDERABLES Final Resul t [facility] [address] [place] [phone] * (ABNORMAL) POCT RAMSES-14 Urine Drug [...] procedure / Unknown 04/03/2025 2:19 PM EST us Rut Branham MD POINT OF CARE TEST ENTER/YI T ORDERABLES Final Result * XR Chest 2 Views (04/02/2025 9:30 AM EST) Anatomical Region Laterality Modality Chest Radiographic Lupe ging 04/02/2025 9:30 AM EST Narrative 04/02/2025 9:42 AM EST [address] [address] XRay Report Signed Patient: Ross Navarrete MR#: [id number] 613 : 1980 Acct:[id number] Age/Sex: 44 / M ADM Date: 04/02/25 Loc: HO.ED Attending Dr: Ordering Physician: Judi Butler Date of Service: 04/02/25 Procedure(s): XR chest 2V Accession Number(s): [id number] cc: Judi Butler; SOFIA MITCHELL NP Reason [...] signed by Dionisio Hill MD in OV> 04/02/2538 DD/ 9 TD/TT: 04/02/2537 Mfg Assoc: Procedure Note Donotuseinterpreter, Image - 04/02/[address] [address] XRay Report Signed Patient: Ross Navarrete LMR#: [id number] 613 : 1980Acct:[id number] Age/Sex: 44 / MADM Date: 04/02/25 Loc: HO.ED Attending Dr: Ordering Physician: Judi Butler Date of Service: 04/02/25 Procedure(s): XR chest 2V Accession Number(s): [id number] cc: Judi Butler; SOFIA MITCHELL NP Reason [...] MDin OV> 04/02/25937 DD/ 9 TD/TT: 04/02/25936 Mfg Assoc: [facility] External Provider IMG XR PROCEDURES Final Result * High Sensitivity Troponin I (04/02/2025 9:29 AM EST) Pathologist [facility] TROPONIN I HIGH SENSITIVITY <2.7 <3.5 - 35.0 ng/L [facility] Comment:The Jordan high sens itivity Troponin-I results should beused in conjunction with other diagnostic information suchas ECG, clinical observations and information, and patientsymptoms to aid in the diagnosis of PR. 04/02/2025 9:29 AM EST 04/02/2025 9:31 AM EST Generic External Data Provider LAB BLOOD ORDERAB LES Final Result [facility] [address] [place] [phone] * NT-proBNP (04/02/2025 9:29 AM EST) Pathologist [facility] NT-proBNP 57.3 <300 pg/mL [facility] Comment:Reference Range:Age Group (years) NT-proBNP (pg/ml) InterpretationAll <300 Negative: HF unlikelyFor patients presenting to the ED with clinical suspicion ofnew onset or worsening HF, see below:18 to <50 >299.9 to <450.0 Grayzone: Kswhgygd43 to 75 >299.9 to <900.0 other causes of>75 >299.9 to <1800.0 NT-proBNP aotmuublp87 to <50 >449.9 Positive: HF -87 >899.9>75 >1799.9Note: Elevated NT-proBNP levels should be interpreted inthe context of other clinical information. 04/02/2025 9:29 AM EST 04/02/2025 9:31 AM EST us Generic External Data Provider LAB BLOOD ORDERAB LES Final Result [facility] [address] [place] [phone] * (ABNORMAL) Comprehensive Metabolic Panel (04/02/2025 9:29 AM EST) Sodium 140 135 - 145 mmol/L [facility] Potassium 4.2 3.3 - 5.1 mmol/L [facility] Chloride 105 96 - 108 mmol/L [facility] Carbon Dioxide 29 22 - 29 mmol/L [facility] Anion Gap 10(L) 12 - 20 [facility] Urea Nitrogen (BUN) 30(H) 9 - 16 mg/dL [facility] Creatinine, Serum 1.86(H) 0.5 - 1.4 mg/dL [facility] Creatinine Clr Calc Pharmacy 77.2 [facility] Comment:eGFR (calculated fro m the MDRD study equation) and eCrCl(calculated from the Cockcroft-Gault equation) are based ondifferent parameters and may not yield comparable results.If eCrCl result is absurd, please check patient'sheight/weight. Estimated Glomerular Filt Rate 40 [facility] Comment:Chronic Kidney Disea se: Estimated GFR < 60 mL/min/1.34u5Pahctz Kidney Disease: Estimated GFR < 15 mL/min/1.73m2 Glucose 124(H) 60 - 115 mg/dL [facility] Calcium 9.4 8.4 - 10.2 mg/dL [facility] Bilirubin, Total 0.5 0.0 - 1.0 mg/dL [facility] Aspartate Amino Transferase 28 5 - 37 U/L [facility] Alanine Aminotransferase 31 0 - 40 U/L [facility] Total Protein 7.4 6.5 - 8.0 g/dL [facility] Albumin Level 3.9 3.5 - 5.0 g/dL [facility] Alkaline Phosphatase 65 39 - 117 U/L [facility] 04/02/2025 9:29 AM EST 04/02/2025 9:31 AM EST us Generic External Data Provider LAB BLOOD ORDERAB LES Final Result Performing Organization Address City/State/[facility] Co de Phone Number [facility] [address] [place] [phone] * US BLADDER (01/10/2025 9:48 AM EDT) Anatomical Region Laterality Modality Abdomen Ultrasound 01/10/2025 9:48 AM EDT Narrative 01/10/2025 9:50 AM EDT [facility] [address] [place] [address] [place] [address] Ultrasound Report Signed Patient: Ross Navarrete MR#: [id number] 613 : 1980 Acct:[id number] Age/Sex: 44 / M ADM Date: 01/09/25 Loc: HO.HMGCX Attending Dr: Sofia Mitchell NP Ordering Physician: SOFIA MITCHELL NP Date of Service: 01/09/25 Procedure(s): US bladder Accession Number(s): [id number] cc: SOFIA MITCHELL NP CLINICAL HISTORY: ?urinary [...] in OV> 01/10/25948 DD/ 7 TD/TT: 01/10/25947 Mfg Assoc: Procedure Note Donotuseinterpreter, Image - 01/10/2025 [facility] [address] [place] [address] [place] [address] Ultrasound Report Signed Patient: Ross Navarrete LMR#: [id number] 613 : 1980Acct:[id number] Age/Sex: 44 / MADM Date: 01/09/25 [facility] Dr: Sofia Mitchell NP Ordering Physician: SOFIA MITCHELL NP Date of Service: 01/09/25 Procedure(s): US bladder Accession Number(s): [id number] cc: SOFIA MITCHELL NP CLINICAL HISTORY: ?urinary [...] in OV> 01/10/2549 DD/ 7 TD/TT: 01/10/25947 Mfg Assoc: us Sofia Mitchell ANP IMG US PROCEDURES Final Result * (ABNORMAL) POCT HGB A1C (01/09/2025 10:56 AM EDT) Hemoglobin A1C 5.8(A) 4.0 - 5.7 % QC Media Lot # [id number] Lot# Expiration Date 969,867 Blood 01/09/2025 10:5 6 AM EDT us Sofia Mitchell ANP POINT OF CARE TEST ENTER/EDIT OR DERABLES Final Result * POCT Glucose (01/09/2025 10:55 AM EDT) Glucose Blood, POC 102 60 - 200 mg/dL QC Media Lot # [id number] Lot# Expiration Date ,717,569 Blood Capillary blood specimen / Unknown 01/09/2025 10:55 AM EDT [facility] Junie RAHMAN POINT OF CARE TEST ENTER/EDIT OR DERABLES Final Result * Hepatitis C Antibody with Reflex to HCV, RNA, Quantitative, Real-Time PCR (12/12/2024 1:48 PM EDT) Pathologist [facility] Hepatitis C Antibody Nonreactive Nonreactive [facility] Comment:Antibodies to HCV no t detected; does not exclude early acuteHCV infection. Blood Venous blood specimen / Unknown 12/12/2024 1:48 PM EDT 12/12/2024 4:06 PM EDT Rut Branham MD LAB BLOOD ORDERABLES Final R esult [facility] [address] [place] [phone] * Lipid Panel, Standard (04/24/2024 11:23 AM EST) Triglycerides 132 <150 mg/dL [facility] Comment:Desirable Triglyceri de: less than 150 mg/dLBorderline High Triglyceride 150-199 mg/dLHigh Triglyceride: 200-499 mg/dLVery High Triglyceride: greater than or equal to 5OO mg/dL Cholesterol 165 <200 mg/dL [facility] Comment:Desirable Cholestero l: less than 200 mg/dLBorderline High Cholesterol: 200-239 mg/dLHigh Cholesterol: greater than 239 mg/dL LDL Cholesterol Calculated 91 <100 mg/dL [facility] Comment:Desirable LDL: less than 100 mg/dLNear Optimal/Above Optimal LDL: 110- 129 mg/dLBorderline High LDL: 130-159 mg/dLHigh LDL: 160-189 mg/dLVery High LDL: greater than or equal to 190 mg/dL HDL Cholesterol 48 >40 mg/dL [facility] Comment:Desirable HDL: great er than 40 mg/dL Note: This HDL assay may give artificially low results in patients with liver disease. 04/24/2024 11:2 3 AM EST 04/24/2024 11:23 AM EST Generic External Data Provider LAB BLOOD ORDERAB LES Final Result Performing Organization Address City/[facility]/ZIP Co de Phone Number [facility] [address] [place] [phone] [phone] * HIV-1/2 Antigen and Antibodies, Fourth [...] below the limit ofdetection of this assay.The [employer] HIV Ag/Ab Combo assay result andsupplemental assay results should be interpreted inconjunction with the patient's clinical presentation,history and other laboratory results. If the results areinconsistent with clinical evidence, additional testing issuggested to confirm the result. Blood Venous blood specimen / Unknown 12/13/2023 11:48 AM EDT 12/13/2023 12:51 PM EDT Sofia Mitchell [facility] LAB BLOOD ORDERABLES Final Resul t Performing Organization Address [facility]/ZIP Co de Phone Number [facility] [address] [place] [address] [phone] from Last 3 Months or Most Recently Relevant to Health Maintenance [place] [facility] [employer]ICA[employer] STAND ADULT Care Teams Financial Adviser Relationship Specialty Start Date End Date Sofia Mitchell ANP [address] [place] [address] PCP - General Family Medicine 01/18/22 Real Goemz MD [address] [place] [address] 3rd [place] [address] Cardiology 10/01/24 Kalpesh Calles Paramedical AideAssistant Associate Professor 02/21/25
--- OUTSIDE RECORDS SUMMARY | 2025-04-08 13:10 | XMS_ITS | Encounter Summary ---
Author Organization [employer] Address 75 [facility] 7t [place] [address] Care Team Providers Care Lead Dental Assistant Name Role Phone Naheed Zaman Primary Care Provider [phone] Real Gomez MD Unavailable Karla Mattson Unavailable Reason for Referral * Consultation (Routine) - Authorized Specialty Diagnoses / Procedures Referred By Contac t Referred To Contact Pharmacy Diagnoses HTN (hypertension) Rut Branham MD [address] [place] [address] Phone: tel: fax: Referral ID Status Reason Start Date Expiration Date Visits Requested Visits Authorized [id number] Authorized Continuity of Care 03/27/2025 03/27/2026 6 6 Encounter Details Date Type Department Care Team (Late st Contact Info) Description 03/27/2025 Orders Only [facility] MED[facility] [address] [place] [phone] Rut Branham MD [address] [place], [place] [phone] HTN (hypertension) (Primary Dx) Social History Tobacco [...] Info) Description 04/29/2025 1:00 PM EST Telemedicine [facility] MED[facility]INE [address] [place] [address] Billy Brooke, PharmD [address] [place] [address] 06/26/2025 3:00 PM EST Office Visit [facility] [address] [place] [address] Rut Branham MD [address] [place] [address] Scheduled Referrals Name Type Priority Associated Diagnoses Orde r Schedule Referral to Pharmacy MTM Outpatient Referral Routine HTN (hypertension) Ordered: 03/27/2025 documented as of this encounter Visit Diagnoses Diagnosis HTN (hypertension)- Primary Unspecified essential hypertension documented in this encounter Additional Health Concerns Assessment Noted Time PHQ-9 Depression Total Score: 7 10/05/19 25 2:06 PM EDT documented as of this encounter Care Teams Lead Dental Assistant Relationship Specialty Start Date End Date Naheed Zaman ANP [address] [place] [address] PCP - General Family Medicine 01/18/22 Real Gomez MD [address] [place] [address] 3rd [place] [address] Cardiology 10/01/24 Karla Mattson 04/03/25 04/04/25 Kalpesh Calles Strap Making Machine OperatorSupervisor Machine Workers 02/21/25 documented as of this encounter
--- OUTSIDE RECORDS SUMMARY | 2025-04-08 13:10 | XMS_ITS | Clinical Summary ---
Author Organization [facility] Address [address] [place] [address] Phone Care Team Providers Care Corporate Communications Intern Name Role Phone Naheed Zaman NP Primary Care Provider [phone] Allergies Active Allergy Reactions Criticality Noted Date [...] obesity with BMI of 6 0.0-69.9, adult ([facility] V24, [facility] V28) 04/17/2024 Acquired pes planus 05/11/2017 Pure hypercholesterolemia 05/10/2017 Pulmonary hypertension ([facility] V24, [facility] V28 ) 05/10/2017 Overview (04/17/2024): [...] (diabetes mellitus), type 2 with renal complications ([facility] V24, [facility] V28) 04/30/2017 Spondylosis of lumbar region without myelopathy or radiculopathy 04/26/2017 Overview (04/17/2024): Saw [facility] Rheumatology BETSY (obstructive sleep apnea) 04/26/2017 Overview (04/17/2024): Polysomnography 08/05/2009, [facility] :On cpap 14 cm H2O 10/23/2017 Home Sleep Study insufficient data. 08/2018 - Pulm ordered split night study. Diabetes mellitus type 2 wit h neurological manifestations ([facility] V24, [facility] V28) 04/26/2017 CTS (carpal tunnel [...] (diabetes mellitus), type 2 with renal complications ([facility] V24, [facility] V28) 04/30/2017 DX:DM (diabetes mellitus), t ype 2 with renal complications (HCC) Proteinuria 04/30/2017 DX:Proteinuria Diabetes mellitus type 2 wit h neurological manifestations ([facility] V24, [facility] V28) 04/26/2017 DX:Diabetes mellitus type 2 with neurological manifestations (HCC) Asthma 05/10/2017 DX:Asthma Elevated liver enzymes 05/10/2017 DX:Elevat ed liver enzymes; COMMENT: fatty liver Gout 05/10/2017 DX:Gout H. pylori infection 05/10/2017 DX:H. 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 DX:History of acute post-streptococcal glomerulonephritis; COMMENT: Hospitalized [facility] with anasarca/ KUNAL 2010, streptolysin titer 1060, kidney bx, Followed in past by Dr Zapata, NSAIDS not recommended HTN (hypertension) 05/10/2017 DX:HTN (hyper tension) Morbid obesity with BMI of 6 0.0-69.9, adult ([facility] V24, [facility] V28) 04/26/2017 DX:Morbid obesity wit h BMI of 60.0-69.9, adult ([facility]) BETSY (obstructive sleep apnea) 04/26/2017 DX :BETSY (obstructive sleep apnea); COMMENT: Polysomnography 08/05/2009, [facility] :On cpap 14 cm H2O Pulmonary hypertension ([facility] V24, [facility] V28) 05/10/2017 DX:Pulmonary hypertension (H CC); COMMENT: Mild, ECHO 10/21/10 [facility], EF 65-70% Otherwise normal altho suboptimal views, [...] egion without myelopathy or radiculopathy; COMMENT: Saw [facility] Rheumatology Family History Medical History Relation Name [...] * Urine Albumin Creatinine Ratio (02/27/2020) Pathologist [facility] Urine Albumin Creatinine Ratio Abstracted Result [facility] Provider HEALTH MAINTENANCE Final Result * Annual BMP Blood Test (02/27/2020) Pathologist [facility] Annual BMP Blood Test Abstracted Result [facility] Provider HEALTH MAINTENANCE Final Result * (ABNORMAL) Hemoglobin A1c (02/27/2020) Pathologist [facility] Hemoglobin A1C 6.9(A) <=6.5 % Blood Venous blood specimen / Unknown Result [facility] Provider LAB BLOOD ORDERABLES Brunilda l Result * Lipid panel (02/27/2020) Pathologist [facility] LDL/HDL Ratio 3 0 - 4 Triglycerides 91 0 - 150 mg/dL Cholesterol 145 0 - 200 mg/dL HDL 58 >=40 mg/dL LDL Cholesterol 69 0 - 100 mg/dL Blood Venous blood specimen / Unknown Result [facility] Provider LAB BLOOD ORDERABLES Brunilda l Result * Hepatitis C Screening (06/22/2017) Hepatitis C Screening Abstracted us Historical Provider HEALTH MAINTENANCE Final Result from Last 3 Months or Most Recently Relevant to Health Maintenance Insurance MEDICAID - [place] Care Teams Corporate Communications Intern Relationship Specialty Start Date End Date Naheed Zaman NP [address] [place] [phone] PCP - General 02/21/24
--- OUTSIDE RECORDS SUMMARY | 2025-04-08 13:10 | XMS_ITS | Encounter Summary ---
Author Organization [employer] Address 75 [facility] 7t [place] [address] Care Team Providers Care Administrative Support Manager Name Role Phone Naheed Zaman Primary Care Provider [phone] Real Gomez MD Unavailable Chico Kebede RN Unavailable [phone] Karla Mattson Unavailable Reason for Visit * Reason Onset Date Comments Med Refill 11/20/2024 Encounter Details Date Type Department Care Team (Late st Contact Info) Description 11/20/2024 Refill [facility] 230 [place], [place] [phone] Rut Branham MD [address] [place], [place] [phone] Uncomplicated opioid dependence (CMS/HCC) Social History Tobacco [...] 1:00 PM EST Telemedicine [facility] [address] [place] [address] Billy Brooke, PharmD [address] [place] [address] 06/26/2025 3:00 PM EST Office Visit [facility] [address] [place] [address] Rut Branham MD [address] [place] [address] documented as of this encounter Visit Diagnoses Diagnosis Uncomplicated opioid dependence (CMS/HCC) (HCC) documented in this encounter Additional Health Concerns Assessment Noted Time PHQ-9 Depression Total Score: 7 10/05/19 25 2:06 PM EDT documented as of this encounter Care Teams Administrative Support Manager Relationship Specialty Start Date End Date Naheed Zaman ANP 230 [place] [address] PCP - General Family Medicine 01/18/22 Real Gomez MD [address] [facility] 3rd [place] [address] Cardiology 10/01/24 Chico Kebede, APRIL [address] [place] [address] Registered Nurse Family Medicine 02/03/25 02/03/25 Karla Mattson 04/03/25 04/04/25 Kalpesh Calles Net Mvc DeveloperOuter Diameter Technician 02/21/25 documented as of this encounter
--- OUTSIDE RECORDS SUMMARY | 2025-04-08 13:10 | XMS_ITS | Encounter Summary ---
Author Organization [employer] Address [address] [facility] [address] 7t [place] [address] Care Team Providers Care Security Systems Engineer Name Role Phone Naheed Zaman Primary Care Provider [phone] Real Gomez MD Unavailable Chico Kebede RN Unavailable [phone] Karla Mattson Unavailable Reason for Visit * Reason Comments Med Refill Encounter Details Date Type Department Care Team (Late st Contact Info) Description 01/30/2025 Refill [facility] 230 [place] [address] Rut Branham MD 230 [place], [place] [phone] Uncomplicated opioid dependence (CMS/HCC) Social History Tobacco [...] Info) Description 04/29/2025 1:00 PM EST Telemedicine [facility] [address] [place] [address] Billy Brooke, PharmD [address] [place] [address] 06/26/2025 3:00 PM EST Office Visit [facility] [address] [place] [address] Rut Branham MD [address] [place] [address] documented as of this encounter Visit Diagnoses Diagnosis Uncomplicated opioid dependence (CMS/HCC) (HCC) documented in this encounter Additional Health Concerns Assessment Noted Time PHQ-9 Depression Total Score: 7 10/05/19 25 2:06 PM EDT documented as of this encounter Care Teams Security Systems Engineer Relationship Specialty Start Date End Date Naheed Zaman ANP [address] [place] [address] PCP - General Family Medicine 01/18/22 Real Gomez MD [address] [place] [address] 3rd [place] [address] Cardiology 10/01/24 Chico Kebede, APRIL [address] [place] [address] Registered Nurse Family Medicine 02/03/25 02/03/25 Karla Mattson 04/03/25 04/04/25 Kalpesh Calles After School TutorTurner And Former Automatic 02/21/25 documented as of this encounter
--- OUTSIDE RECORDS SUMMARY | 2025-04-08 13:10 | XMS_ITS | Encounter Summary ---
Author Organization [employer] Address [address] [facility] [address] 7t [place] [address] Care Team Providers Care Disability Services Coordinator Name Role Phone Naheed Zaman Primary Care Provider [phone] Real Gomez MD Unavailable Encounter Details Date Type Department Care Team (Latest Contact Info) Description 04/07/2025 Results Follow-Up [facility] MEDICINE 230 [place] [address] Naheed Zaman ANP 230 [place] [address] CBC auto differential Social History Tobacco Use Types Packs/Day Years [...] Description 04/29/2025 1:00 PM EST Telemedicine [facility] [address] [place] [address] Billy Brooke, PharmD [address] [place] [address] 06/26/2025 3:00 PM EST Office Visit [facility] MED[facility] [address] [place] [address] Rut Branham MD [address] [place] [address] documented as of this encounter Visit Diagnoses Not on filedocumented in this encounter Additional Health Concerns Assessment Noted Time PHQ-9 Depression Total Score: 7 10/05/19 25 2:06 PM EDT documented as of this encounter Care Teams Disability Services Coordinator Relationship Specialty Start Date End Date Naheed Zaman ANP [address] [place] [address] PCP - General Family Medicine 01/18/22 Real Gomez MD [address] [place] [address] 3rd [place] [address] Cardiology 10/01/24 Kalpesh Calles Pound AttendantNursing Professor 02/21/25 documented as of this encounter
--- OUTSIDE RECORDS SUMMARY | 2025-04-08 13:10 | XMS_ITS | Encounter Summary ---
Author Organization [employer] [facility] Address 75 [facility] 7t [place] [address] Care Team Providers Care Security Systems Specialist Name Role Phone Naheed Zaman Primary Care Provider [phone] Real Gomez MD Unavailable Chico Kebede RN Unavailable [phone] Karla Mattson Unavailable Encounter Details Date Type Department Care Team ([facility] Contact Info) Description 07/28/2022 Abstract [facility] ADULT D[facility] 230 [place] [address] Zay Schmidt DDS [address] [place] [address] Social History Tobacco Use Types Packs/Day Years [...] Upcoming Encounters Date Type Department Care Team ([facility] Contact Info) Description 04/29/2025 1:00 PM EST Telemedicine [facility] [address] [place] [phone] Billy Brooke, OzzieD [address] [place] [address] 06/26/2025 3:00 PM EST Office Visit [address] [address] Rut Branham MD 230 [place] [address] documented as of this encounter Visit Diagnoses Not on filedocumented in this encounter Care Teams Security Systems Specialist Relationship Specialty Start Date End Date Naheed Zaman ANP [address] [place] [address] PCP - General Family Medicine 01/18/22 Real Gomez MD [address] [place] [address] 3rd [place] [address] Cardiology 10/01/24 Chico Kebede, APRIL [address] [place] [address] Registered Nurse Family Medicine 02/03/25 02/03/25 Karla Mattson 04/03/25 04/04/25 Kalpesh Calles Electronics ProcessorCap Parts Cutter 02/21/25 documented as of this encounter
== END 2025-04-08 11:45 | disposition home or self-care (01) ==
LOC: HO.HPSW 11:00
PROVIDERS: PCP Nurse Practitioner Primary Care; Visit Provider Nurse Practitioner Family
DX: J45.909 Unspecified asthma, uncomplicated (principal); Z91.09 Other allergy status, other than to drugs and biological substances; G47.33 Obstructive sleep apnea (adult) (pediatric); E66.01 Morbid (severe) obesity due to excess calories
CPT/HCPCS: 99204

== ENCOUNTER → 2025-04-08 10:59 | Outpatient (BNVA) | payer MEDICAID, SELFPAY | PROVIDERS: PCP Nurse Practitioner Primary Care; Visit Provider Nurse Practitioner Family | DX: J45.909 Unspecified asthma, uncomplicated (principal); Z91.09 Other allergy status, other than to drugs and biological substances; G47.33 Obstructive sleep apnea (adult) (pediatric); E66.01 Morbid (severe) obesity due to excess calories; Z99.89 Dependence on other enabling machines and devices; Z68.44 Body mass index [BMI] 60.0-69.9, adult; Z87.891 Personal history of nicotine dependence | CPT/HCPCS: 99212 ==

== ENCOUNTER 2025-04-15 06:28 | Outpatient (REF) | payer MEDICAID, SELFPAY ==
--- NOTE | ~2025-04-15 | FL_ITS ---
EXAMINATION: XR FLUOROSCOPY WITH IMAGES CLINICAL INFORMATION: Shoulder arthritis COMPARISON: X-ray 08/14/2024 TECHNIQUE: Fluoroscopy time: 19 seconds DAP: 4.1 mGycm2 Images: 2 FINDINGS: Fluoroscopy provided for procedure. There is a needle projected in the shoulder joint. FL/FL guidance in treatment room IMPRESSION: Fluoroscopy provided for procedure. See procedure report for details. Electronically signed by: Juan West MD 04/16/2025 01:56 PM [facility]
== END 2025-04-15 06:29 | disposition home or self-care (01) ==
LOC: CF 06:28
PROVIDERS: Visit Provider Anesthesiology
DX: M19.012 Primary osteoarthritis, left shoulder (principal); M25.312 Other instability, left shoulder
CPT/HCPCS: 64555; 64590; J2003

== ENCOUNTER 2025-04-15 12:46 | Outpatient (AMB) | payer MEDICAID, SELFPAY ==
[2025-04-15 12:50] VITALS: BP 148/59; PULSE 96; RESP 16; O2SAT 100; BMI 64.2
--- NOTE | 2025-04-15 12:50 | MHC.OFFVIS ---
Vital Signs 04/15/25 12:50 04/15/25 13:44 Height 5 ft 5 in Weight 386 lb BMI 64.2 BP 148/59 H 154/81 H Blood Pressure Location Rt radial Rt radial Position Sitting Sitting Respiration 16 16 Pulse 96 90 Pulse Source Pulse Oximeter Pulse Oximeter Pulse Oximetry (%) 100 98 Oxygen Delivery Method Room Air Room Air Intake Visit Reasons: Left Suprascapular Sprint PNS Allergies seafood Allergy (Severe, Verified 04/08/25 11:08) Swelling PFSH Medical History Seronegative spondyloarthropathy Vitamin D deficiency Elevated C-reactive protein (CRP) Fibromyalgia Polyarthralgia Narcotic dependence Thrombocytopenia Carpal tunnel syndrome Sleep apnea Pre-op evaluation Hx of migraines BETSY on CPAP Pre-op evaluation HTN (hypertension), benign Insulin dependent type 1 diabetes mellitus Morbid obesity Shoulder dislocation Diabetes Surgical History Hx of colonoscopy History of esophagogastroduodenoscopy (EGD) Hx of hernia repair Hx of appendectomy Family History Mother No problems noted. Brother No problems noted. Daughter No problems noted. Daughter No problems noted. Daughter No problems noted. Son No problems noted. Son No problems noted. 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 Physical Exam Vital Signs: Last Vital Signs Pulse 90 04/15/25 13:44 Resp 16 04/15/25 13:44 BP 154/81 H 04/15/25 13:44 Pulse Ox 98 04/15/25 13:44 Oxygen Delivery Method Room Air 04/15/25 13:44 BMI result Body Mass Index 64.2 Assessment & Plan Assessment & Plan (1) Osteoarthritis of left glenohumeral joint: Code(s): M19.012 - Primary osteoarthritis, left shoulder Category: Medical (2) Other instability, left shoulder: Code(s): M25.312 - Other instability, left shoulder Category: Medical Plan Percutaneous implantation of peripheral nerve stimulation Sprint system left suprascapular nerve the risks, benefits and alternatives were discussed with the patient and informed consent was obtained, patient was placed in the prone position and padded to foster comfort. Time out was performed delineating correct site and side of the procedure , name and of the patient, patient participated in time out procedure. Theupper back and posterior neck of the patient was prepped with ChloraPrep and draped with sterile self adhesive utility towels. C-arm was brought over the operating field and clear picture of the suprascapular notch left was delineated on the screen. The upper central portion of the lamina was chosen as a target of the needle tip insertion . After identifying and marking the intended target, the skin around the planned entry point and the subcutaneous tissues were injected with local anesthetic forming skin wheal.. A percutaneous sleeve and stimulating probe lead introduction system were assembled, inserted and advanced through the skin wheal to the point of interest under C-arm viewL left suprascapular notch., the introducer needle was delivered to a location in proximity to the nerve. Multiple stimulation parameters were used to deliver stimulation to the nerve in concert with stimulating at multiple positions around the nerve. The nerve target acquisition was confirmed noting generation of in the corresponding to the nerve being stimulated. Various electrical parameter combinations were tested, and the lead location was adjusted (physically relocated) until the patient indicated overlapping the distribution of the patient?s typical region of pain. The stimulating probe was removed from the introducer and a percutaneous lead was guided through the needle and delivered to a location in similar proximity to the nerve. Final location was verified with electrical stimulation. The introducer needle was removed, and the exposed end of the percutaneous lead was attached to an external stimulator unit. At the end of the case various electrical parameter combinations were again tested until the patient indicated paresthesia or muscle tension overlapping the distribution of the patient?s typical region of pain. After confirming that lead impedance was in the normal range, the external unit was detached, the needle was removed, and the lead was anchored at the skin. The leads were threaded into the connector block and electrical continuity and desired patient response was confirmed. The connector block was attached to the external stimulator unit. The site was covered with a sterile occlusive dressing and a image was taken to document final placement. Upon completion of the procedure the patient was taken outside the OR where she recovered uneventfully she went home without immediate complications. Orders: Orders FL guidance in treatment room Today M19.012 - Primary osteoarthritis, left shoulder Coding Level of Care Code Procedure Only Diagnoses Osteoarthritis of left glenohumeral joint M19.012 Other instability, left shoulder M25.312 Implantable Device Implantable Device Implantable Devices Qty Director Of Pupil Personnel Program Implant Date Expiration Date Analgesic PENS system 1 [employer] 04/15/25
[2025-04-15 13:44] VITALS: BP 154/81; PULSE 90; RESP 16; O2SAT 98
--- OUTSIDE RECORDS SUMMARY | 2025-04-16 04:03 | XMS_ITS | Encounter Summary ---
Author Organization [employer] Address [address] [facility] 7t [place] [address] Care Team Providers Care Brass Finisher Name Role Phone Naheed Zaman Primary Care Provider [phone] Real Gomez MD Unavailable Chico Kebede RN Unavailable [phone] Karla Mattson Unavailable Reason for Visit * Reason Comments Med Refill Encounter Details Date Type Department Care Team (Late st Contact Info) Description 08/18/2023 Refill [facility] MEDICINE 230 [place], [place] [phone] Naheed Zaman ANP 230 [place], [place] [phone] Chronic low back pain without sciatica, unspecified [...] Info) Description 04/29/2025 1:00 PM EST Telemedicine [facility] MEDICINE [address] [place] [address] Billy Brooke, PharmD [address] [place] [address] 05/07/2025 11:00 AM EST Office Visit [facility] ADULT DENTAL [address] [place] [address] Zay Schmidt DDS [address] [place] [address] 05/09/2025 2:30 PM EST Office Visit [facility] MEDICINE [address] [place] [address] Naheed Zaman ANP [address] [place] [address] 06/26/2025 3:00 PM EST Office Visit [facility] MEDICINE [address] [place] [address] Rut Branham MD [address] [place] [address] 07/03/2025 10:00 AM EST Office Visit [address] [address] Naheed Zaman ANP [address] [place] [address] documented as of this encounter Visit Diagnoses Diagnosis Chronic low back pain without sciatica, unspecified back pain laterality documented in this encounter Additional Health Concerns Assessment Noted Time PHQ-9 Depression Total Score: 6 11/19/19 23 3:29 PM EDT documented as of this encounter Care Teams Brass Finisher Relationship Specialty Start Date End Date Naheed Zaman ANP [address] [place] [address] PCP - General Family Medicine 01/18/22 Real Gomez MD [address] [place] [address] 3rd [place] [address] Cardiology 10/01/24 Chico Kebede RN [address] [place] [address] Registered Nurse Family Medicine 02/03/25 02/03/25 Karla Mattson 04/03/25 04/04/25 Kalpesh Calles Grade ForemanMounter Automatic 02/21/25 documented as of this encounter
--- OUTSIDE RECORDS SUMMARY | 2025-04-16 04:04 | XMS_ITS | Encounter Summary ---
Author Organization [employer] [employer] [facility] Address [address] [place] [address] 7t [place] [address] Care Team Providers Care Painter Foreman Name Role Phone Naheed Zaman Primary Care Provider [phone] Real Gomez MD Unavailable Chico Kebede RN Unavailable [phone] Karla Mattson Unavailable Reason for Visit * Reason Comments Med Refill Encounter Details Date Type Department Care Team (Late Contact Info) Description 02/02/2023 Refill [facility] MEDICINE 230 [place] [address] Rut Branham MD 230 [place] [address] Uncomplicated opioid dependence (CMS/HCC) Social History Tobacco [...] 04/29/2025 1:00 PM EST Telemedicine [facility] MEDICINE [address] [place] [address] Billy Brooke, PharmD [address] [place] [address] 05/07/2025 11:00 AM EST Office Visit [facility] ADULT DENTAL [address] [place] [address] Zay Schmidt DDS 230 [place] [address] 05/09/2025 2:30 PM EST Office Visit [address] [address] Naheed Zaman ANP [address] [place] [address] 06/26/2025 3:00 PM EST Office Visit [address] [address] Rut Branham MD [address] [place] [address] 07/03/2025 10:00 AM EST Office Visit [address] [address] Naheed Zaman ANP [address] [place] [address] documented as of this encounter Visit Diagnoses Diagnosis Uncomplicated opioid dependence (CMS/HCC) (HCC) documented in this encounter Additional Health Concerns Assessment Noted Time PHQ-9 Depression Total Score: 6 11/19/19 23 3:29 PM EDT documented as of this encounter Care Teams Painter Foreman Relationship Specialty Start Date End Date Naheed Zaman ANP [address] [place] [address] PCP - General Family Medicine 01/18/22 Real Gomez MD [address] 3rd [place] [address] Cardiology 10/01/24 Chico Kebede, RN [address] [place] [address] Registered Nurse Family Medicine 02/03/25 02/03/25 Karla Mattson 04/03/25 04/04/25 Kalpesh Calles Door Frame BuilderEmergency Service Worker 02/21/25 documented as of this encounter
--- OUTSIDE RECORDS SUMMARY | 2025-04-16 04:04 | XMS_ITS | Encounter Summary ---
Author Organization [employer] [facility] Address [address] [facility] 7t [place] [address] Care Team Providers Care Manager Field Investigations Name Role Phone Naheed Zaman Primary Care Provider [phone] Real Gomez MD Unavailable Chico Kebede RN Unavailable [phone] Karla Mattson Unavailable Encounter Details Date Type Department Care Team (Latest Contact Info) Description 12/29/2021 Abstract [facility] CONVERSIONS Dental, Provider, DDS Social [...] 04/29/2025 1:00 PM EST Telemedicine [facility] MEDICINE 230 [place] [address] Billy Brooke, PharmD 230 [place] [address] 05/07/2025 11:00 AM EST Office Visit [facility] ADULT DENTAL 230 [place] [address] Zay Schmidt DDS 230 [place] [address] 05/09/2025 2:30 PM EST Office Visit [address] [address] Naheed Zaman ANP [address] [place] [address] 06/26/2025 3:00 PM EST Office Visit [address] [address] Rut Branham MD [address] [place] [address] 07/03/2025 10:00 AM EST Office Visit [address] [address] Naheed Zaman ANP [address] [place] [address] documented as of this encounter Visit Diagnoses Not on filedocumented in this encounter Care Teams Manager Field Investigations Relationship Specialty Start Date End Date Naheed Zaman ANP [address] [place] [address] PCP - General Family Medicine 01/18/22 Real Gomez MD [address] [place] [address] 3rd [place] [address] Cardiology 10/01/24 Chico Kebede RN [address] [place] [address] Registered Nurse Family Medicine 02/03/25 02/03/25 Karla Mattson 04/03/25 04/04/25 Kalpesh Calles Boiler House InspectorSales Representative Printing Paper 02/21/25 documented as of this encounter
--- OUTSIDE RECORDS SUMMARY | 2025-04-16 04:04 | XMS_ITS | Encounter Summary ---
Author Organization [employer] Address [address] [facility] [address] 7t [place] [address] Care Team Providers Care Specifications Writer Name Role Phone Naheed Zaman Primary Care Provider [phone] Real Gomez MD Unavailable Chico Kebede RN Unavailable [phone] Karla Mattson Unavailable Reason for Visit * Reason Comments Med Refill Encounter Details Date Type Department Care Team (Late st Contact Info) Description 09/14/2023 Refill [facility] MEDICINE 230 [place], [place] [phone] Dayna Cardenas MD 230 [place], [place] [phone] Uncomplicated opioid dependence (CMS/HCC) Social History Tobacco [...] Description 04/29/2025 1:00 PM EST Telemedicine [facility] MEDICINE [address] [place] [address] Billy Brooke, PharmD [address] [place] [address] 05/07/2025 11:00 AM EST Office Visit [facility] ADULT DENTAL [address] [place] [address] Zay Schmidt DDS [address] [place] [address] 05/09/2025 2:30 PM EST Office Visit [facility] MEDICINE [address] [place] [address] Naheed Zaman ANP [address] [place] [address] 06/26/2025 3:00 PM EST Office Visit [facility] MEDICINE [address] [place] [address] Rut Branham MD [address] [place] [address] 07/03/2025 10:00 AM EST Office Visit [address] [address] Naheed Zaman ANP 230 [place] [address] documented as of this encounter Visit Diagnoses Diagnosis Uncomplicated opioid dependence (CMS/HCC) (HCC) documented in this encounter Additional Health Concerns Assessment Noted Time PHQ-9 Depression Total Score: 6 11/19/19 23 3:29 PM EDT documented as of this encounter Care Teams Specifications Writer Relationship Specialty Start Date End Date Naheed Zaman ANP 230 [place] [address] PCP - General Family Medicine 01/18/22 Real Gomez MD [address] [place] [address] 3rd [place] [address] Cardiology 10/01/24 Chico Kebede RN [address] [place] [address] Registered Nurse Family Medicine 02/03/25 02/03/25 Karla Mattson 04/03/25 04/04/25 Kalpesh Calles Physician Assistant Primary CareLamination Inspector 02/21/25 documented as of this encounter
--- OUTSIDE RECORDS SUMMARY | 2025-04-16 04:04 | XMS_ITS | Encounter Summary ---
Author Organization [employer] Address [address] [facility] [address] 7t [place] [address] Care Team Providers Care Iron Handler Name Role Phone Naheed Zaman Primary Care Provider [phone] Real Gomez MD Unavailable Chico Kebede RN Unavailable [phone] Karla Mattson Unavailable Reason for Visit * Reason Comments Med Refill Encounter Details Date Type Department Care Team (Late st Contact Info) Description 09/26/2024 Refill [facility] 230 [place] [address] Desirae Cowan MD 230 [place] [address] Social History Tobacco Use Types Packs/Day Years [...] Info) Description 04/29/2025 1:00 PM EST Telemedicine [address] [address] Billy Brooke, PharmD [address] [place] [address] 05/07/2025 11:00 AM EST Office Visit [facility] [address] [place] [address] Zay Schmidt DDS [address] [place] [address] 05/09/2025 2:30 PM EST Office Visit [address] [address] Naheed Zaman, JOSIAH [address] [place] [address] 06/26/2025 3:00 PM EST Office Visit [address] [place] [address] Rut Branham MD 230 [place], [place] [phone] 07/03/2025 10:00 AM EST Office Visit [facility] 230 [place] [address] Naheed Zaman ANP 230 [place] [address] documented as of this encounter Visit Diagnoses Not on filedocumented in this encounter Additional Health Concerns Assessment Noted Time PHQ-9 Depression Total Score: 25 024 8:12 AM EDT documented as of this encounter Care Teams Iron Handler Relationship Specialty Start Date End Date Naheed Zaman ANP 230 [place] [address] PCP - General Family Medicine 01/18/22 Real Gomez MD [address] [place] [address] 3rd [place] [address] Cardiology 10/01/24 Chico Kebede, APRIL [address] [place] [address] Registered Nurse Family Medicine 02/03/25 02/03/25 Karla Mattson 04/03/25 04/04/25 Kalpesh Calles Brazer Crawler TorchBid Analyst 02/21/25 documented as of this encounter
--- OUTSIDE RECORDS SUMMARY | 2025-04-16 04:04 | XMS_ITS | Encounter Summary ---
Author Organization [employer] Address [address] [facility] 7t [place] [address] Care Team Providers Care Associate Curator Name Role Phone Naheed Zaman Primary Care Provider Real Gomez MD Unavailable Chico Kebede RN Unavailable [phone] Karla Mattson Unavailable Reason for Visit * Reason Onset Date Comments Med Refill 11/20/2024 Encounter Details Date Type Department Care Team (Late st Contact Info) Description 11/20/2024 Refill [facility] MEDICINE 230 [place], [place] [phone] Rut Branham MD 230 [place], [place] [phone] Uncomplicated opioid dependence (CMS/HCC) Social History Tobacco [...] housing situation today? I have zack rtejo 10/04/[address] you li [...] 04/29/2025 1:00 PM EST Telemedicine [facility] MEDICINE [address] [place] [address] Billy Brooke, PharmD [address] [place] [address] 05/07/2025 11:00 AM EST Office Visit [facility] ADULT DENTAL [address] [place] [address] Zay Schmidt DDS 230 [place] [address] 05/09/2025 2:30 PM EST Office Visit [facility] MEDICINE [address] [place] [address] Naheed Zaman, ANP 230 [place] [address] 06/26/2025 3:00 PM EST Office Visit [address] [address] Rut Branham MD 230 [place] [address] 07/03/2025 10:00 AM EST Office Visit [facility] MEDICINE 230 [place] [address] Naheed Zaman ANP 230 [place] [address] documented as of this encounter Visit Diagnoses Diagnosis Uncomplicated opioid dependence (CMS/HCC) (HCC) documented in this encounter Additional Health Concerns Assessment Noted Time PHQ-9 Depression Total Score: 7 10/05/19 25 2:06 PM EDT documented as of this encounter Care Teams Associate Curator Relationship Specialty Start Date End Date Naheed Zaman ANP 230 [place] [address] PCP - General Family Medicine 01/18/22 Real Gomez MD [address] [place] [address] 3rd [place] [address] Cardiology 10/01/24 Chico Kebede, RN [address] [place] [address] Registered Nurse Family Medicine 02/03/25 02/03/25 Karla Mattson 04/03/25 04/04/25 Kalpesh Calles Director Of Channel MarketingTeacher Physically Impaired 02/21/25 documented as of this encounter
--- OUTSIDE RECORDS SUMMARY | 2025-04-16 04:04 | XMS_ITS | Encounter Summary ---
Author Organization [employer] Address [address] 7t [place] [address] Care Team Providers Care Jazz Singer Name Role Phone Naheed Zaman Primary Care Provider [phone] Real Gomez MD Unavailable Chico Kebede RN Unavailable [phone] Karla Mattson Unavailable Reason for Visit * Reason Onset Date Comments callback requested 04/23/2024 Encounter Details Date Type Department Care Team ([facility] st Contact Info) Description 04/23/2024 Telephone [facility] MEDICINE 230 [place], [place] [phone] Naheed Zaman ANP 230 [place] [address] callback requested Social History Tobacco Use Types [...] returning call to Madie Olson Callback number [phone] documented in this encounter Plan of Treatment Upcoming Encounters Date Type Department Care Team (Late st Contact Info) Description 04/29/2025 1:00 PM EST Telemedicine [facility] MEDICINE 230 [place] [address] Billy Brooke, PharmD 230 [place] [address] 05/07/2025 11:00 AM EST Office Visit [facility] ADULT DENTAL 230 [place] [address] Zay Schmidt DDS 230 [place] [address] 05/09/2025 2:30 PM EST Office Visit [address] [address] Naheed Zaman ANP 230 [place] [address] 06/26/2025 3:00 PM EST Office Visit [address] [address] Rut Branham MD 230 [place] [address] 07/03/2025 10:00 AM EST Office Visit [address] [address] Naheed Zaman ANP 230 [place] [address] documented as of this encounter Visit Diagnoses Not on filedocumented in this encounter Additional Health Concerns Assessment Noted Time PHQ-9 Depression Total Score: 25 024 8:12 AM EDT documented as of this encounter Care Teams Jazz Singer Relationship Specialty Start Date End Date Naheed Zaman ANP 230 [place] [address] PCP - General Family Medicine 01/18/22 Real Gomez MD [address] [place] [address] Drive 3rd [place] [address] Cardiology 10/01/24 Chico Kebede, APRIL 505 [place] [address] Registered Nurse Family Medicine 02/03/25 02/03/25 Karla Mattson 04/03/25 04/04/25 Kalpesh Calles Chief Strategy OfficerClerk Entry Level 02/21/25 documented as of this encounter
--- OUTSIDE RECORDS SUMMARY | 2025-04-16 04:05 | XMS_ITS | Encounter Summary ---
Author Organization [employer] Address [address] [facility] [address] 7t [place] [address] Care Team Providers Care Machine Tool Mechanic Name Role Phone Naheed Zaman Primary Care Provider [phone] Real Gomez MD Unavailable Encounter Details Date Type Department Care Team (Latest Contact Info) Description 04/07/2025 Results Follow-Up [facility] 230 [place] [address] Naheed Zaman ANP 230 [place] [address] CBC auto differential Social History Tobacco Use [...] 04/29/2025 1:00 PM EST Telemedicine [facility] [address] [place] [address] Billy Brooke, PharmD [address] [place] [address] 05/07/2025 11:00 AM EST Office Visit [facility] ADULT DENT[facility] [address] [place] [address] Zay Schmidt DDS [address] [place] [address] 05/09/2025 2:30 PM EST Office Visit [facility] [address] [place] [address] Naheed Zaman, JOSIAH 230 [place] [address] 06/26/2025 3:00 PM EST Office Visit [facility] [address] [place] [address] Rut Branham MD 230 [place], [place] [phone] 07/03/2025 10:00 AM EST Office Visit [facility] 230 [place], [place] [phone] Naheed Zaman ANP 230 [place], [place] [phone] documented as of this encounter Visit Diagnoses Not on filedocumented in this encounter Additional Health Concerns Assessment Noted Time PHQ-9 Depression Total Score: 7 10/05/19 25 2:06 PM EDT documented as of this encounter Care Teams Machine Tool Mechanic Relationship Specialty Start Date End Date Naheed Zaman ANP [address] [place] [address] [phone] PCP - General Family Medicine 01/18/22 Real Gomez MD [address] [place] [address] 3rd [place] [address] Cardiology 10/01/24 Kalpesh Calles Fastener Sewing Machine OperatorFirer Diesel Locomotive 02/21/25 documented as of this encounter
--- OUTSIDE RECORDS SUMMARY | 2025-04-16 04:05 | XMS_ITS | Encounter Summary ---
Author Organization [employer] Address [address] [facility] 7t [place] [address] Care Team Providers Care Route Contractor Name Role Phone Naheed Zaman Primary Care Provider [phone] Real Gomez MD Unavailable Reason for Visit * Reason Onset Date Comments May recall 04/11/2025 Encounter Details Date Type Department Care Team ([facility] st Contact Info) Description 04/11/2025 Telephone [facility] MEDICINE 230 [place] [address] Naheed Zaman ANP 230 [place] [address] May recall Social History Tobacco Use Types Packs/Day [...] Telephone Encounter - Araceli Hunter MA - 04/11/2025 2:55 PM EST Telephone call to patient to schedule the following recall: Visit type: Office visit extended Appointment notes: wt check, pain f/u 30 min Patient agree to appointment on 07/03/2025 at 10:00 AM with Junie. documented in this encounter Plan of Treatment Upcoming Encounters Date Type Department Care Team (Late st Contact Info) Description 04/29/2025 1:00 PM EST Telemedicine [facility] MEDICINE 230 [place] [address] Billy Brooke, PharmD 230 [place] [address] 05/07/2025 11:00 AM EST Office Visit [facility] ADULT DENTAL 230 [place] [address] Zay Schmidt DDS 230 [place] [address] 05/09/2025 2:30 PM EST Office Visit [address] [address] Naheed Zaman, JOSIAH 230 [place] [address] 06/26/2025 3:00 PM EST Office Visit [address] [address] Rut Branham MD 230 [place] [address] 07/03/2025 10:00 AM EST Office Visit [address] [address] Naheed Zaman ANP 230 [place] [address] documented as of this encounter Goals Goal Patient Goal Type Associated Problems Recent Progress Patient-Stated? Author Help patients manage their type 2 diabetes Care Plan Help patients manage their type 2 diabetes Araceli Torres MA Weekly blood pressure task Care Plan Weekly blood pressure task Araceli Torres MA Help patients manage their type 2 diabetes Care Plan Help patients manage their type 2 diabetes Araceli Torres MA Patient has chronic kidney disease Care Plan Patient has chronic kidney disease Araceli Torres MA Weekly blood pressure task Care Plan Weekly blood pressure task Araceli Torres MA Patient has chronic kidney disease Care Plan Patient has chronic kidney disease Araceli Torres MA documented as of this encounter Visit Diagnoses Not on filedocumented in this encounter Additional Health Concerns Active Problems Noted Date Diagnosed Date Help patients manage their type 2 diabetes 04/11 Weekly blood pressure task 04/11/2025 Help patients manage their type 2 diabetes 04/11 Patient has chronic kidney disease 04/11/2025 Weekly blood pressure task 04/11/2025 Patient has chronic kidney disease 04/11/2025 Assessment Noted Time PHQ-9 Depression Total Score: 7 10/05/19 25 2:06 PM EDT documented as of this encounter Care Teams Route Contractor Relationship Specialty Start Date End Date Naheed Zaman ANP 230 [place] [address] PCP - General Family Medicine 01/18/22 Real Gomez MD [address] [place] [address] 3rd [place] [address] Cardiology 10/01/24 Kalpesh Calles Assembler Caterpillar SpiderPhotovoltaic Fabrication Technician 02/21/25 documented as of this encounter
--- OUTSIDE RECORDS SUMMARY | 2025-04-16 04:05 | XMS_ITS | Encounter Summary ---
Author Organization [employer] Address [address] [facility] [address] 7t [place] [address] Care Team Providers Care Life Underwriter Name Role Phone Naheed Zaman Primary Care Provider [phone] Real Gomez MD Unavailable Chico Kebede RN Unavailable [phone] Karla Mattson Unavailable Reason for Visit * Reason Onset Date Comments Med Refill 01/03/2025 Encounter Details Date Type Department Care Team (Late st Contact Info) Description 01/03/2025 Refill [facility] MEDICINE 230 [place], [place] [phone] Naheed Zaman ANP 230 [place] [address] Gastroesophageal reflux disease, unspecified whether esophagitis present; [...] Description 04/29/2025 1:00 PM EST Telemedicine [facility] MEDICINE [address] [place] [address] Billy Brooke, PharmD [address] [place] [address] 05/07/2025 11:00 AM EST Office Visit [facility] ADULT DENTAL [address] [place] [address] Zay Schmidt DDS [address] [place] [address] 05/09/2025 2:30 PM EST Office Visit [facility] MEDICINE [address] [place] [address] Naheed Zaman ANP 230 [place] [address] 06/26/2025 3:00 PM EST Office Visit [address] [address] Rut Branham MD 230 [place] [address] 07/03/2025 10:00 AM EST Office Visit [address] [address] Naheed Zaman ANP 230 [place] [address] documented as of this encounter Visit Diagnoses Diagnosis Gastroesophageal reflux disease, unspecified whether esophagitis present Essential hypertension Unspecified essential hypertension Chronic low back pain without sciatica, unspecified back pain laterality documented in this encounter Additional Health Concerns Assessment Noted Time PHQ-9 Depression Total Score: 7 10/05/19 25 2:06 PM EDT documented as of this encounter Care Teams Life Underwriter Relationship Specialty Start Date End Date Naheed Zaman ANP [address] [place] [address] PCP - General Family Medicine 01/18/22 Real Gomez MD [address] [place] [address] 3rd [place] [address] Cardiology 10/01/24 Chico Kebede, APRIL [address] [place] [address] Registered Nurse Family Medicine 02/03/25 02/03/25 Karla Mattson 04/03/25 04/04/25 Kalpesh Calles Metrology TechnicianComic Book Designer 02/21/25 documented as of this encounter
--- OUTSIDE RECORDS SUMMARY | 2025-04-16 04:05 | XMS_ITS | Clinical Summary ---
Author Organization [employer] Address [address] [facility] [address] [place] [address] Care Team Providers [employer] Project Manager Name Role Phone Sofia Mitchell Primary Care Provider Real Gomez MD Unavailable Allergies Active Allergy Reactions Criticality Noted Date Comments Shellfish Allergy Other 05/02/2022 Difficulty breathing Medications * This document contains information received from the source organization and may not represent a complete record from that organization. Alcohol Swabs (Alcohol Prep) 70 % pads USE FOUR TIMES DAILY WITH INSULIN Active Blood Glucose Monitoring Suppl (FreeStyle [place] Lite) w/Device kit TEST BLOOD SUGAR FOUR TIMES DAILY Active FREESTYLE LITE test strip TEST BLOOD SUGAR FOUR TIMES DAILY Active glucose blood (FREESTYLE LITE) test strip check fingerstick 4 times a day Active Sure Comfort Pen [place] 31G X 5 MM misc USE FOUR [...] Blood Pressure Monitor kitIndications:P ulmonary hypertension (CMS/HCC) ([facility]) 1 kit in the morning. 1 kit 024 Active chlorhexidine (Peridex) 0.12 % solution Swish 15 mL morning and night for 1 minute. Spit, do not swallow. Do not eat or drink for 30 minutes following use. 473 mL 024 Active Continuous Glucose Utility Operator (FreeStyle Casey 2 [place]) deviceIndication s:Diabetes mellitus with albuminuria ([facility]) Scan sensor every 8 hours 1 each 024 Active Continuous Glucose Sensor (FreeStyle Casey 2 Sensor) miscIndications: Diabetes mellitus with albuminuria ([facility]) Apply 1 sensor every 14 days 2 each 11 024 Active olmesartan-hydro CHLOROthiazide (Benicar HCT) 40-12.5 MG tabletIndication s:Essential hypertension Take 1 tablet by mouth Once per day. 90 tablet 3 04/09/20 25 1:02 PM EST 025 2025 Active insulin glargine (Lantus SoloStar) 100 UNIT/ML penIndications:T ype 2 diabetes mellitus with hyperlipidemia ([facility]) INJECT 40 UNITS SUBCUTANEOUSLY AT BEDTIME 15 [...] major depressive disorder, without psychotic features (CMS/HCC) ([facility]) TAKE 3 CAPSULES BY MOUTH EVERY MORNING 90 capsule 1 04/09/20 25 1:02 PM EST 025 Active D3 Super Strength 50 MCG (1999 UT) capsule Take 1 capsule by mouth Once per day. 09/11/2 025 Active cyclobenzaprine (Flexeril) 10 MG tablet [...] Do not open capsule. 90 capsule 1 04/09/20 25 1:02 PM EST Active Suboxone 8-2 MG SL filmIndications: Uncomplicated opioid dependence (CMS/HCC) (HCC) Place 3 Film under the tongue Once per day. 84 Film 2 2025 Active melatonin 3 MG tabletIndication s:Insomnia, unspecified type Take 1 tablet 30-60 min before bedtime as needed for sleep 30 tablet 2 04/09/20 25 1:02 PM EST Active Magnesium Oxide -Mg Supplement 400 MG [...] Pharmacy)) beta carotene (vitamin A) 3 MG (88002 UT) capsule TAKE 2 CAPSULES BY MOUTH EVERY DAY FOR 2 WEEKS 2024 Discontinued( Med list cleanup (will not trigger notification to Pharmacy)) atorvastatin (Lipitor) 10 MG tabletIndication s:Type 2 diabetes mellitus with hyperlipidemia (HCC) Take 1 tablet (10 mg) by mouth at bedtime. 90 tablet 3 024 2024 Discontinued( Reorder (will not trigger [...] DISSOLVE OR CHEW 90 capsule 1 025 2024 Discontinued( Reorder (will not trigger notification to Pharmacy)) triamcinolone (Kenalog) 0.1 % creamIndications :Venous stasis dermatitis of both lower extremities Apply topically if needed in the morning and at bedtime (pain and swelling). 80 g 2024 Discontinued( Med list cleanup (will not trigger notification to Pharmacy)) semaglutide (Ozempic) 2 MG/1.5ML solution pen-injectorIndi cations:Diabetic [...] FOR LEG CRAMPS, STOP FOR LOOSE STOOL 2024 Discontinued( Alternate therapy) Active Problems Problem [...] recurrent major depressive disorder, without psychotic features ([facility]) 09/20/2023 Assessment & Plan (02/08/2024 2:34 PM [...] Health Integration Plan Internal Follow up with [facility] Patient Self Plan Patient to reach out to [facility] team as needed, Comply with medication , [...] Health Integration Plan Internal Follow up with [facility] Patient Self Plan Patient to reach out to [facility] team as needed, Comply with medication , [...] Health Integration Plan Internal Follow up with [facility] Patient Self Plan Patient to utilize skills provided in intervention , Patient to reach out to [facility] team as needed, and Patient to reach [...] Health Integration Plan Internal Follow up with [facility] External OP psychiatry Referral Patient Self Plan Patient to reach out to [facility] team as needed, Comply with medication , Patient to engage in OP therapy , and Patient to reach out to [facility] as needed Assessment & Plan (09/20/2023 10:06 AM EDT): New/Additional Services needed Off-site services for Behavioral Health Integration Plan External OP therapy referral Patient Self Plan Patient to utilize skills provided in intervention , Patient to reach out to [facility] team as needed, Comply [...] hernias -I discussed today to referral sp-Joseline Natacha who explained that she tried referring pt to [facility] and other centers [...] myelopathy or radiculopathy 04/26/2017 Overview (11/22/2024): Saw [facility] Rheumatology, now on humira which has been [...] sleep apnea) 05/18/2015 Overview (11/22/2024): Polysomnography 08/05/2009, [facility]: On cpap 14 cm H2O 10/23/2017 Home Sleep Study insufficient data. 08/2018 - [facility] ordered split night study. Titration was done 03/2023 and titrated to start cpap at 88jdP31. HST c/w AHI 124/hr and oxygen fritz to 70%, he was titrated Follows w/ [facility] Neurology and Sleep, Leyla De La Cruz PA Proteinuria 05/18/2015 Encounters * This document contains information received from the source organization and may not represent a complete record from that organization. Date Type Department Care Team Description 04/11/2025 Telephone [facility] MEDICINE [address] [place] [phone] Sofia Mitchell ANP May recall 04/07/2025 Results Follow-Up [address] [address] Sofia Mitchell ANP CBC auto differential 04/04/2025 2:30 PM EST Office Visit [address] [address] Sofia Mitchell ANP Hypomagnesemia (Primary Dx); KUNAL [...] adult, unspecified obesity type (HCC) 04/04/[address] [address] Sofia Mitchell ANP Durable Medical Equipment 04/04/2025 Patient Outreach [facility] MED & PEDS [address] [place] [address] Sofia Mitchell ANP Care Coordination (Communication to pts Assigned CP Coordinator ) 04/04/2025 Travel 04/03/2025 3:00 PM EST Office Visit [address] [address] Rut Branham MD Uncomplicated opioid dependence (CMS/HCC) ([facility]) (Primary Dx) 04/03/[address] [address] Sofia Mitchell ANP chart prep 04/03/2025 Travel 04/03/2025 Patient Outreach [facility] MED [facility]ED[facility] [address], [place] [phone] Sofia Mitchell ANP Care Coordination (CP Care Coordination Chart Review) 04/03/[address] [address] Sofia Mitchell ANP Nurse Triage 04/03/2025 Patient Outreach [facility] MED [facility] PEDS [address], [place] [phone] Sofia Mitchell ANP Care Coordination ([facility] ED follow up) 04/03/2025 Patient Outreach [facility] [place] [address] Sofia Mitchell ANP 04/02/2025 Results Follow-Up [facility] [place] [address] Sofia Mitchell ANP CBC auto differential, Comprehensive Metabolic Panel, Magnesium, Additional followed-up results: 2 04/02/2025 Orders Only GENERIC EXTERNAL DATA DEPARTMENT Provider, Generic External Data 04/01/2025 Telephone [facility] [place] [address] Sofia Mitchell ANP Durable Medical Equipment 03/31/2025 Telephone [facility] [place] [address] Sofia Mitchell ANP may03/27/2025 9:00 AM EDT Office Visit [facility] [place] [address] Sofia Mitchell ANP Severe episode of recurrent [...] Neck pain 03/27/2025 Orders Only [facility] [place] [address] Rut Branham MD HTN (hypertension) (Primary Dx) 03/27/2025 Travel 03/26/2025 Refill [facility] [place] [address] Rut Branham MD Uncomplicated opioid dependence (CMS/HCC) (HCC) 03/25/2025 1:30 PM EDT Telemedicine [facility] [place] [address] Billy Brooke, PharmD Diabetic nephropathy with proteinuria (HCC) (Primary Dx) 03/25/2025 Refill [facility] [place] [address] Sofia Mitchell ANP Type 2 diabetes mellitus with hyperlipidemia (HCC); Severe episode of recurrent major depressive disorder, without psychotic features ([facility]) (HCC); Gastroesophageal reflux disease, unspecified whether esophagitis present 03/25/2025 Telephone [facility] MEDICINE [address] [place] [address] Sofia Mitchell ANP chart prep 03/13/2025 Refill [facility] WALK-IN CENTER [address] [place] [phone] Sofia Mitchell ANP Chronic low back pain without sciatica, unspecified back pain laterality; Urinary retention 02/21/2025 Telephone [facility] MED & PEDS [address] [place] [address] Sofia Mitchell ANP Care Coordination (ICP Care Plan) 02/06/2025 2:00 PM EDT Clinical Support [address] [address] Tristen Chen RN Uncomplicated opioid dependence ([facility]) 02/06/2025 Travel 02/03/2025 Patient Outreach [facility] MEDICINE [address] [place] [phone] Sofia Mitchell ANP Care Coordination ([facility]/Matthew Davenport f/u, program graduation) 02/03/2025 Patient Outreach [facility] MEDICINE [address] [place] [address] Sofia Mitchell ANP Care Management ([facility]- f/u call) 01/30/2025 Refill [facility] MEDICINE [address] [place] [address] Rut Branham MD Uncomplicated opioid dependence ([facility]) 01/29/2025 Refill [facility] MEDICINE [address] [place] [address] Rut Branham MD Uncomplicated opioid dependence ([facility]) 01/28/2025 Patient Outreach [facility] MED [facility] PEDS [address] [place] [address] Sofia Mitchell ANP 01/20/2025 Travel 01/20/2025 Patient Outreach [facility] MEDICINE [address] [place] [phone] Sofia Mitchell ANP Care Coordination ([facility]/CHW CATHERINE MccainMO f/u call ) 01/20/2025 Patient Outreach [facility] MED & PEDS [address] [place] [address] Sofia Mitchell ANP Care Coordination ([facility] f/u call) 01/17/2025 11:30 AM EDT Clinical Support [facility] MEDICINE [address] [place] [phone] Lela Witt RN Type 2 diabetes mellitus with hyperlipidemia ([facility]) ([facility]) 01/17/2025 Travel 01/16/2025 Telephone [facility] MEDICINE [address] [place] [address] Sofia Mitchell ANP Durable Medical Equipment 01/15/2025 Refill [facility] WALK-IN CENTER [address] [place], [place] [phone] Sofia Mitchell ANP Venous stasis dermatitis of both lower extremities from Last 3 Months Immunizations Immunization Administration [...] [facility] MEDICINE [address] [place] [phone] Billy Brooke, PharmD [address] [place] [address] 05/07/2025 11:00 AM EST Office Visit [facility] ADULT DENTAL [address] [place] [address] Zay Schmidt, ROSE MARIES [address] [place] [address] 05/09/2025 2:30 PM EST Office Visit [address] [address] Sofia Mitchell, ANP [address] [place] [phone] 06/26/2025 3:00 PM EST Office Visit [address] [address] Rut Branham MD [address] [place] [phone] 07/03/2025 10:00 AM EST Office Visit [address] [address] Sofia Mitchell, ANP [address] [place] [phone] Health Maintenance Due Date Last Done Comments Dental Oral Exam 1980 Dental Prophylaxis 1980 Dental X-Ray: Bitewings 1981 Dental X-Ray: Full Mouth 1981 Diabetes: Foot Exam 11/14/1991 Family Planning (PISQ) 1996 HPV Vaccines (1 - Male 3-dose series) 1996 Hepatitis A Vaccines (1 of 2 - Risk 2-dose series) 2000 COVID-19 Vaccine (3 - season) 2025 12/29/2020, [...] on patient's age to complete this topic Goals Goal Patient Goal Type Associated Problems Recent Progress Patient-Stated? Author Help patients manage their type 2 diabetes Care Plan Help patients manage their type 2 diabetes No Araceli Hunter MA Weekly blood pressure task Care Plan Weekly blood pressure task No Araceli Hunter MA Help patients manage their type 2 diabetes Care Plan Help patients manage their type 2 diabetes No Araceli Hunter MA Patient has chronic kidney disease Care Plan Patient has chronic kidney disease No Araceli Hunter MA Weekly blood pressure task Care Plan Weekly blood pressure task No Araceli Hunter MA Patient has chronic kidney disease Care Plan Patient has chronic kidney disease No Araceli Hunter MA Procedures Procedure Name Priority Date/Time Associated Diagnosis [...] AUTO DIFFERENTIAL Routine 04/02/2025 9:29 AM EST POCT GLYCATED HEMOGLOBIN, TOTAL Routine 01/09/2025 10:56 [...] with albuminuria Diabetes mellitus with albuminuria (CMS/HCC) ([facility]) from Last 3 Months or Most Recently Relevant to Health Maintenance Results * (ABNORMAL) CBC auto differential (04/07/2025 9:11 AM EST) Only the most recent of2 resultswithin the time period is included. White Blood Count 5.8 4.8 - 10.8 X10*3/uL [facility] Red Blood Count 4.31(L) 4.60 - 5.80 X10*6/uL [facility] Hemoglobin 12.3(L) 14.0 - 18.0 g/dl [facility] Hematocrit 37.6(L) 42.0 - 52.0 % [facility] Mean Corpuscular Volume 87.2 80.0 - 98.0 fL [facility] Mean Corpuscular Hemoglobin 28.5 27.0 - 33.0 pg [facility] Mean Corpuscular HGB Conc 32.7 31.0 - 36.0 g/dl [facility] Red Cell Distribution Width 12.4 11.0 - 16.0 % [facility] Platelet Count 119(L) 160 - 400 X10*3/uL [facility] Mean Platelet Volume 12.6(H) 9.4 - 12.4 fL [facility] Neutrophils Percent Auto 55.1 45 - 73 % [facility] Imm Gran Pct Auto 0.3 0.0 - 0.4 % [facility] Lymphocytes Percent Auto 32.7 20 - 40 % [facility] Monocytes Percent Auto 7.7 2 - 11 % [facility] Eosinophils Percent Auto 3.9 0 - 4 % [facility] Basophils Percent Auto 0.3 0 - 2 % [facility] NRBC Pct Auto 0.0 0.0 - 0.2 /100WBC [facility] Neutrophils Absolute Auto 3.2 2.0 - 8.3 x10*3/uL [facility] Imm Gran Abs Auto 0.02 0.00 - 0.03 X10*3/uL [facility] Lymphocytes Absolute Auto 1.9 1.2 - 4.9 X10*3/uL [facility] Monocytes Absolute Auto 0.5 0.1 - 1.2 X10*3/uL [facility] Eosinophils Absolute Auto 0.2 0.0 - 0.4 X10*3/uL [facility] Basophils Absolute Auto 0.0 0.0 - 0.2 X10*3/uL [facility] NRBC Abs Auto 0.000 0.0 - 0.012 X10*3/uL [facility] Blood Venous blood specimen / Unknown 04/07/2025 9:11 AM EST 04/07/2025 11:22 AM EST Sofia Mitchell ANP LAB BLOOD ORDERABLES Final Resul t Performing Organization Address [facility] de Phone Number [facility] [address] [place] [phone] * Magnesium (04/07/2025 9:11 AM EST) Only the most recent of2 resultswithin the time period is included. Magnesium 1.6 1.6 - 2.6 mg/dL [facility] Blood Venous blood specimen / Unknown 04/07/2025 9:11 AM EST 04/07/2025 11:22 AM EST Sofia Mitchell ANP LAB BLOOD ORDERABLES Final Resul t Performing Organization Address [facility] Co de Phone Number [facility] [address] [place] [phone] * (ABNORMAL) Basic Metabolic Panel (04/07/2025 9:11 AM EST) Sodium 139 135 - 145 mmol/L [facility] Potassium 3.9 3.3 - 5.1 mmol/L [facility] Chloride 104 96 - 108 mmol/L [facility] Carbon Dioxide 27 22 - 29 mmol/L [facility] Anion Gap 12 12 - 20 [facility] Urea Nitrogen (BUN) 19(H) 9 - 16 mg/dL [facility] Creatinine, Serum 1.57(H) 0.5 - 1.4 mg/dL [facility] Estimated Glomerular Filt Rate 48 [facility] Comment:Chronic Kidney Disea se: Estimated GFR < 60 mL/min/1.91g1Ulnmfw Kidney Disease: Estimated GFR < 15 mL/min/1.73m2 Glucose 147(H) 60 - 115 mg/dL [facility] Calcium 9.4 8.4 - 10.2 mg/dL [facility] Blood Venous blood specimen / Unknown 04/07/2025 9:11 AM EST 04/07/2025 11:22 AM EST Sofia RAHMAN LAB BLOOD ORDERABLES Final Resul t [facility] [address] [place] [phone] * (ABNORMAL) POCT RAMSES-14 Urine Drug [...] AM EST Narrative 04/02/2025 9:42 AM EST [address] [address] XRay Report Signed Patient: Ross Navarrete MR#: [id number] : 1980 Acct:[id number] Age/Sex: 44 / M ADM Date: 04/02/25 Loc: HO.ED Attending Dr: Ordering Physician: Judi Butler Date of Service: 04/02/25 Procedure(s): XR chest 2V Accession Number(s): [id number] cc: Judi Butler; SOFIA MITCHELL NP Reason [...] in OV> 04/02/25937 DD/ 9 TD/TT: 04/02/25936 Hub Inventory Specialist: Procedure Note Donotjonointerpreter, Image - 04/02/[address] [address] XRay Report Signed Patient: Ross Navarrete LMR#: [id number] : 1980Acct:[id number] Age/Sex: 44 / MADM Date: 04/02/25 Loc: HO.ED Attending Dr: Ordering Physician: Judi Butler Date of Service: 04/02/25 Procedure(s): XR chest 2V Accession Number(s): [id number] cc: Judi Butler; SOFIA MITCHELL NP Reason [...] MDin OV> 04/02/25937 DD/ 9 TD/TT: 04/02/25936 Hub Inventory Specialist: [facility] External Provider IMG XR PROCEDURES Final Result * High Sensitivity Troponin I (04/02/2025 9:29 AM EST) [facility] TROPONIN I HIGH SENSITIVITY <2.7 <3.5 - 35.0 ng/L [facility] Comment:The [place] high sens itivity Troponin-I results should beused in conjunction with other diagnostic information suchas ECG, clinical observations and information, and patientsymptoms to aid in the diagnosis of [place]. 04/02/2025 9:29 AM EST 04/02/2025 9:31 AM EST Generic External Data Provider LAB BLOOD ORDERAB LES Final Result [facility] [address] [place] [phone] * NT-proBNP (04/02/2025 9:29 AM EST) NT-proBNP 57.3 <300 pg/mL [facility] Comment:Reference Range:Age Group (years) NT-proBNP (pg/ml) InterpretationAll <300 Negative: HF unlikelyFor patients presenting to the ED with clinical suspicion ofnew onset or worsening HF, see below:18 to <50 >299.9 to <450.0 Grayzone: [id number] to 75 >299.9 to <900.0 other causes of>75 >299.9 to <1800.0 NT-proBNP [id number] to <50 >449.9 Positive: HF [id number] >899.9>75 >1799.9Note: Elevated NT-proBNP levels should be interpreted inthe context of other clinical information. 04/02/2025 9:29 AM EST 04/02/2025 9:31 AM EST us Generic External Data Provider LAB BLOOD ORDERAB LES Final Result [facility] [address] [place] [phone] * (ABNORMAL) Comprehensive Metabolic Panel (04/02/2025 9:29 AM EST) Pathologist [facility] Sodium 140 135 - 145 mmol/L [facility] [...] Kidney Disea se: Estimated GFR < 60 mL/min/1.04e8Fwplrx Kidney Disease: Estimated GFR < 15 mL/min/1.73m2 [...] Final Result [facility] [address] [place] [phone] * (ABNORMAL) POCT HGB A1C (01/09/2025 10:56 AM EDT) Hemoglobin A1C 5.8(A) 4.0 - 5.7 % QC Media Lot # [id number] Lot# Expiration Date ,530,698 Blood 01/09/2025 10:5 6 AM EDT us Sofia Mitchell [facility] POINT OF CARE TEST ENTER/EDIT OR DERABLES Final Result * Hepatitis C Antibody with Reflex to HCV, RNA, Quantitative, Real-Time PCR (12/12/2024 1:48 PM EDT) Hepatitis C Antibody Nonreactive Nonreactive [facility] Comment:Antibodies to HCV no t detected; does not exclude early acuteHCV infection. Blood Venous blood specimen / Unknown 12/12/2024 1:48 PM EDT 12/12/2024 4:06 PM EDT us Rut Branham MD LAB BLOOD ORDERABLES Final R esult Performing Organization Address [facility]/ZIP Co de Phone Number [facility] [address] [place] [address] [phone] * Lipid Panel, Standard (04/24/2024 11:23 AM EST) Triglycerides 132 <150 mg/dL [facility] Comment:Desirable Triglyceri de: less than 150 mg/dLBorderline High Triglyceride 150-199 mg/dLHigh Triglyceride: 200-499 mg/dLVery High Triglyceride: greater than or equal to 5OO mg/dL Cholesterol 165 <200 mg/dL [facility] Comment:Desirable Cholestero l: less than 200 mg/dLBorderline High Cholesterol: 200-239 mg/dLHigh Cholesterol: greater than 239 mg/dL LDL Cholesterol Calculated 91 <100 mg/dL [facility] Comment:Desirable LDL: less than 100 mg/dLNear Optimal/Above Optimal LDL: 110- 129 mg/dLBorderline High LDL: 130-159 mg/dLHigh LDL: 160-189 mg/dLVery High LDL: greater than or equal to 190 mg/dL HDL Cholesterol 48 >40 mg/dL [facility] Comment:Desirable HDL: great er than 40 mg/dL Note: This HDL assay may give artificially low results in patients with liver disease. 04/24/2024 11:2 3 AM EST 04/24/2024 11:23 AM EST us Generic External Data Provider LAB BLOOD ORDERAB LES Final Result Performing Organization Address [facility]/ZIP Co de Phone Number [facility] [address] [place] [phone] [phone] * HIV-1/2 Antigen and Antibodies, Fourth Generation, with Reflexes (12/13/2023 11:48 AM EDT) HIV AB/AG Nonreactive Nonreactive [facility] Comment:HIV-1 p24 Ag and/or HIV-1/HIV-2 Ab not detected.A test result that is nonreactive does not exclude thepossibility of exposure to or infection with HIV-1 and/orHIV-2. Nonreactive results in this assay for individualswith prior exposure to HIV-1 and/or HIV-2 may be due toantigen and antibody levels that are below the limit ofdetection of this assay.The [employer] HIV Ag/Ab Combo assay result andsupplemental assay results should be interpreted inconjunction with the patient's clinical presentation,history and other laboratory results. If the results areinconsistent with clinical evidence, additional testing issuggested to confirm the result. Blood Venous blood specimen / Unknown 12/13/2023 11:48 AM EDT 12/13/2023 12:51 PM EDT [facility] BLOOD ORDERABLES Final Resul t Performing Organization Address City/State/[facility] Co de Phone Number [facility] [address] [place] [phone] from Last 3 Months or Most Recently Relevant to Health Maintenance Additional Health Concerns Active Problems Noted Date Diagnosed Date Help patients manage their type 2 diabetes 04/11 Weekly blood pressure task 04/11/2025 Help patients manage their type 2 diabetes 04/11 Patient has chronic kidney disease 04/11/2025 Weekly blood pressure task 04/11/2025 Patient has chronic kidney disease 04/11/2025 Insurance [employer] [facility] STAND ADULT Care Teams International Project Manager Relationship Specialty Start Date End Date Sofia Mitchell ANP [address] [place] [address] PCP - General Family Medicine 01/18/22 Real Gomez MD [address] [place] [address] [address]rd [place], [place] Cardiology 10/01/24 Kalpesh Calles Sporting Goods Sales ManagerLibrary Services Assistant 02/21/25
--- OUTSIDE RECORDS SUMMARY | 2025-04-16 04:06 | XMS_ITS | Encounter Summary ---
Author Organization [facility] Address [address] [facility] 7t [place] [address] Care Team Providers Care Chemical Operations Specialist Name Role Phone Naheed Zaman Primary Care Provider [phone] Real Gomez MD Unavailable Chico Kebede RN Unavailable [phone] Karla Mattson Unavailable Encounter Details Date Type Department Care Team ([facility] Contact Info) Description 07/28/2022 Abstract [facility]ULT [facility] 230 [place] [address] Zay Schmidt DDS 230 [place] [address] Social History Tobacco Use Types Packs/Day Years [...] Upcoming Encounters Date Type Department Care Team ([facility] Contact Info) Description 04/29/2025 1:00 PM EST Telemedicine [facility] [address] [place] [address] Billy Brooke, PharmD 230 [place] [address] 05/07/2025 11:00 AM EST Office Visit [facility] [address] [place] [address] Zay Schmidt DDS [address] [place] [address] 05/09/2025 2:30 PM EST Office Visit [address] [address] Naheed Zaman ANP [address] [place] [address] 06/26/2025 3:00 PM EST Office Visit [address] [address] Rut Branham MD [address] [place] [address] 07/03/2025 10:00 AM EST Office Visit [address] [address] Naheed Zaman ANP [address] [place] [address] documented as of this encounter Visit Diagnoses Not on filedocumented in this encounter Care Teams Chemical Operations Specialist Relationship Specialty Start Date End Date Naheed Zaman ANP [address] [place] [address] PCP - General Family Medicine 01/18/22 Real Gomez MD [address] [place] [address] 3rd [place] [address] Cardiology 10/01/24 Chico Kebede, APRIL [address] [place] [address] Registered Nurse Family Medicine 02/03/25 02/03/25 Karla Mattson 04/03/25 04/04/25 Kalpesh Calles Strategic Planning DirectorVulcanizing Machine Operator 02/21/25 documented as of this encounter
--- OUTSIDE RECORDS SUMMARY | 2025-04-16 04:06 | XMS_ITS | Encounter Summary ---
Author Organization [email or web address] Address [address] [facility] [address] 7t [place] [address] Care Team Providers Care Retirement Sales Consultant Name Role Phone Naheed Zaman Primary Care Provider [phone] Real Gomez MD Unavailable Chico Kebede RN Unavailable [phone] Karla Mattson Unavailable Reason for Visit * Reason Comments Med Refill Encounter Details Date Type Department Care Team (Late st Contact Info) Description 01/30/2025 Refill [facility] MED[facility]INE 230 [place] [address] Rut Branham MD 230 [place], [place] [phone] Uncomplicated opioid dependence (CMS/HCC) Social History Tobacco [...] Info) Description 04/29/2025 1:00 PM EST Telemedicine [facility] [address] [place] [address] Billy Brooke, PharmD [address] [place] [address] 05/07/2025 11:00 AM EST Office Visit [facility] ADULT DENTAL [address] [place] [address] Zay Schmidt DDS [address] [place] [address] 05/09/2025 2:30 PM EST Office Visit [facility] [address] [place] [address] Naheed Zaman, ANP [address] [place] [address] 06/26/2025 3:00 PM EST Office Visit [address] [address] Rut Branham MD 230 [place] [address] 07/03/2025 10:00 AM EST Office Visit [facility] [address] [place] [address] Naheed Zaman ANP 230 [place] [address] documented as of this encounter Visit Diagnoses Diagnosis Uncomplicated opioid dependence (CMS/HCC) (HCC) documented in this encounter Additional Health Concerns Assessment Noted Time PHQ-9 Depression Total Score: 7 10/05/19 25 2:06 PM EDT documented as of this encounter Care Teams Retirement Sales Consultant Relationship Specialty Start Date End Date Naheed Zaman ANP 230 [place] [address] PCP - General Family Medicine 01/18/22 Real Gomez MD [address] [place] [address] 3[address] [place] [address] Cardiology 10/01/24 Chico Kebede, RN [address] [place] [address] Registered Nurse Family Medicine 02/03/25 02/03/25 Karla Mattson 04/03/25 04/04/25 Kalpesh Calles Collateral ClerkHorizontal Boring Mill Operator 02/21/25 documented as of this encounter
--- OUTSIDE RECORDS SUMMARY | 2025-04-16 04:06 | XMS_ITS | Encounter Summary ---
Author Organization [employer] Address [address] [facility] [address] 7t [place] [address] Care Team Providers Care Priming Machine Operator Name Role Phone Naheed Zaman Primary Care Provider [phone] Real Gomez MD Unavailable Chico Kebede RN Unavailable [phone] Karla Mattson Unavailable Reason for Visit * Reason Onset Date Comments [facility] 12/12/2023 Encounter Details Date Type Department Care Team (Late st Contact Info) Description 12/12/2023 Telephone [facility] ADULT DENTAL 230 [place], [place] [phone] Zay Schmidt DDS 230 [place] [address] [facility] Social History Tobacco Use Types [...] 11/26 3:51 PM EDT Vee Gold * How difficult have these problems made it for you to do your work, take care of things at home, or get along with other people? Answer Date of Assessment Author Extremely difficult 12/15/2023 3:51 PM EDT Vee Au * Over the last 2 weeks, how [...] awful might happen 3 12/15/2023 3:52 PM EDVee Ball MICHAEL-7 Total Score 18 12/15/2023 3:52 PM [...] or overeating Nearly every day 3:51 PM MAYAT Vee Gold Feeling bad about yourself - [...] usual. Nearly every day 12/15/2023 3:51 PM EDVee Ball Thoughts that you would be better off [...] relief. DR Anne Robins office phone number [phone] documented in this encounter Plan of Treatment Upcoming Encounters Date Type Department Care Team (Late st Contact Info) Description 04/29/2025 1:00 PM EST Telemedicine [facility] MED[facility]INE [address] [place] [address] Billy Brooke, PharmD 230 [place] [address] 05/07/2025 11:00 AM EST Office Visit [facility]ULT DENTAL [address] [place] [address] Zay Schmidt DDS 230 [place] [address] 05/09/2025 2:30 PM EST Office Visit [facility] [address] [place] [address] Naheed Zaman ANP 230 [facility] [place] [address] 06/26/2025 3:00 PM EST Office Visit [address] [address] Rut Branham MD 230 [place] [address] 07/03/2025 10:00 AM EST Office Visit [address] [address] Naheed Zaman ANP 230 [place] [address] documented as of this encounter Visit Diagnoses Not on filedocumented in this encounter Additional Health Concerns Assessment Noted Time PHQ-9 Depression Total Score: 23 024 3:25 PM EDT documented as of this encounter Care Teams Priming Machine Operator Relationship Specialty Start Date End Date Naheed Zaman ANP [address] [place] [address] PCP - General Family Medicine 01/18/22 Real Gomez MD [address] [place] [address] 3rd [place] [address] Cardiology 10/01/24 Chico Kebede, APRIL [address] [place] [address] Registered Nurse Family Medicine 02/03/25 02/03/25 Karla Mattson 04/03/25 04/04/25 Kalpesh Calles Editorial Project ManagerWire Coater 02/21/25 documented as of this encounter
--- OUTSIDE RECORDS SUMMARY | 2025-04-16 04:07 | XMS_ITS | Encounter Summary ---
Author Organization [employer] Address [address] [facility] [address] 7t [place] [address] Care Team Providers Care Chart Collector Name Role Phone Naheed Zaman Primary Care Provider [phone] Real Gomez MD Unavailable Chico Kebede RN Unavailable [phone] Karla Mattson Unavailable Reason for Visit * Reason Onset Date Comments Med Refill 10/30/2024 Encounter Details Date Type Department Care Team (Late st Contact Info) Description 10/30/2024 Refill [facility] MEDICINE 230 [place], [place] [phone] Naheed Zaman ANP 230 [place], [place] [phone] Chronic low back pain without sciatica, unspecified [...] Info) Description 04/29/2025 1:00 PM EST Telemedicine [facility] MEDICINE [address] [place] [address] Billy Brooke, PharmD [address] [place] [address] 05/07/2025 11:00 AM EST Office Visit [facility] ADULT DENTAL [address] [place] [address] Zay Schmidt DDS 230 [place] [address] 05/09/2025 2:30 PM EST Office Visit [facility] MEDICINE [address] [place] [address] Naheed Zaman, ANP 230 [place], [place] 06/26/2025 3:00 PM EST Office Visit [address] [address] Rut Branham MD 230 [place] [address] 07/03/2025 10:00 AM EST Office Visit [address] [address] Naheed Zaman ANP 230 [place] [address] documented as of this encounter Visit Diagnoses Diagnosis Chronic low back pain without sciatica, unspecified back pain laterality documented in this encounter Additional Health Concerns Assessment Noted Time PHQ-9 Depression Total Score: 7 10/05/19 25 2:06 PM EDT documented as of this encounter Care Teams Chart Collector Relationship Specialty Start Date End Date Naheed Zaman ANP 230 [place] [address] PCP - General Family Medicine 01/18/22 Real Gomez MD [address] [place] [address] 3rd [place] [address] Cardiology 10/01/24 Chico Kebede, APRIL [address] [place] [address] Registered Nurse Family Medicine 02/03/25 02/03/25 Karla Mattson 04/03/25 04/04/25 Kalpesh Calles Immigration OfficerAfrican History Professor 02/21/25 documented as of this encounter
--- OUTSIDE RECORDS SUMMARY | 2025-04-16 04:07 | XMS_ITS | Encounter Summary ---
Author Organization [employer] Address [address] [facility] 7t [place] [address] Care Team Providers Care Bridge Inspector Name Role Phone Naheed Zaman Primary Care Provider [phone] Real Gomez MD Unavailable Karla Mattson Unavailable Reason for Referral * Consultation (Routine) - Authorized Specialty Diagnoses / Procedures Referred By Contac t Referred To Contact Pharmacy Diagnoses HTN (hypertension) Rut Branham MD [address] [place] [address] Phone: tel: fax: Referral ID Status Reason Start Date Expiration Date Visits Requested Visits Authorized [id number] Authorized Continuity of Care 03/27/2025 03/27/2026 6 6 Encounter Details Date Type Department Care Team (Late st Contact Info) Description 03/27/2025 Orders Only [facility] [address] [place] [address] Rut rBanham MD 230 [place], [place] [phone] HTN (hypertension) (Primary Dx) Social History Tobacco [...] Info) Description 04/29/2025 1:00 PM EST Telemedicine [facility] 230 [place] [address] Billy Brooke, PharmD 230 [place] [address] 05/07/2025 11:00 AM EST Office Visit [facility] ADULT DENTAL 230 [place] [address] Zay Schmidt DDS 230 [place] [address] 05/09/2025 2:30 PM EST Office Visit [address] [address] Naheed Zaman ANP 230 [place] [address] 06/26/2025 3:00 PM EST Office Visit [address] [address] Rut Branham MD 230 [place] [address] 07/03/2025 10:00 AM EST Office Visit [address] [address] Naheed Zaman ANP [address] [place] [address] Scheduled Referrals Name Type Priority Associated Diagnoses Orde r Schedule Referral to Pharmacy MTM Outpatient Referral Routine HTN (hypertension) Ordered: 03/27/2025 documented as of this encounter Visit Diagnoses Diagnosis HTN (hypertension)- Primary Unspecified essential hypertension documented in this encounter Additional Health Concerns Assessment Noted Time PHQ-9 Depression Total Score: 7 10/05/19 25 2:06 PM EDT documented as of this encounter Care Teams Bridge Inspector Relationship Specialty Start Date End Date Naheed Zaman ANP [address] [place] [address] PCP - General Family Medicine 01/18/22 Real Gomez MD [address] [place] [address] 3rd [place] [address] Cardiology 10/01/24 Karla Mattson 04/03/25 04/04/25 Kalpesh Calles Shop ManagerHome Extension Agent 02/21/25 documented as of this encounter
--- OUTSIDE RECORDS SUMMARY | 2025-04-16 04:07 | XMS_ITS | Encounter Summary ---
Author Organization [employer] Address [address] [facility] 7t [place] [address] Care Team Providers Care Management Instructor Name Role Phone Naheed Zaman Primary Care Provider [phone] Real Gomez MD Unavailable Chico Kebede RN Unavailable [phone] Karla Mattson Unavailable Reason for Visit * Reason Onset Date Comments Durable Medical Equipment 10/04/2022 Encounter Details Date Type Department Care Team (Late st Contact Info) Description 10/04/2022 Telephone [facility] MEDICINE 230 [place], [place] [phone] Naheed Zaman ANP 230 [place], [place] [phone] Durable Medical Equipment Social History Tobacco Use [...] for Compressions socks. Please contact pt at [phone] documented in this encounter Plan of Treatment Upcoming Encounters Date Type Department Care Team (Late st Contact Info) Description 04/29/2025 1:00 PM EST Telemedicine [facility] MED[facility]INE [address] [place] [address] Billy Brooke, OzzieD [address] [place] [address] 05/07/2025 11:00 AM EST Office Visit [facility] ADULT DENTAL [address] [place] [address] Zay Schmidt DDS 230 [place] [address] 05/09/2025 2:30 PM EST Office Visit [address] [address] Naheed Zaman ANP 230 [place] [address] 06/26/2025 3:00 PM EST Office Visit [address] [address] Rut Branham MD [address] [place] [address] 07/03/2025 10:00 AM EST Office Visit [address] [address] Naheed Zaman ANP [address] [place] [address] documented as of this encounter Visit Diagnoses Not on filedocumented in this encounter Care Teams Management Instructor Relationship Specialty Start Date End Date Naheed Zaman ANP [address] [place] [address] PCP - General Family Medicine 01/18/22 Real Gomez MD [address] [place] [address] 3rd [place] [address] Cardiology 10/01/24 Chico Kebede, APRIL 505 [place] [address] Registered Nurse Family Medicine 02/03/25 02/03/25 Karla Mattson 04/03/25 04/04/25 Kalpesh Calles Couture DressmakerRaw Material Planner 02/21/25 documented as of this encounter
--- OUTSIDE RECORDS SUMMARY | 2025-04-16 04:08 | XMS_ITS | Encounter Summary ---
Author Organization [employer] Address [address] [facility] 7t [place] [address] Care Team Providers Care Public Health Technician Name Role Phone Naheed Zaman Primary Care Provider [phone] Real Gomez MD Unavailable Chico Kebede RN Unavailable [phone] Karla Mattson Unavailable Reason for Visit * Reason Onset Date Comments Med Refill 01/03/2025 Encounter Details Date Type Department Care Team (Late st Contact Info) Description 01/03/2025 Refill [facility] MEDICINE 230 [place], [place] [phone] Rut Branham MD 230 [place] [address] Uncomplicated opioid dependence (CMS/HCC) Social History Tobacco [...] Info) Description 04/29/2025 1:00 PM EST Telemedicine [facility]INE [address] [place] [address] Billy Brooke, PharmD [address] [place] [address] 05/07/2025 11:00 AM EST Office Visit [facility] ADULT DENTAL [address] [place] [address] aZy Schmidt DDS 230 [place] [address] 05/09/2025 2:30 PM EST Office Visit [facility] [address] [place] [address] Naheed Zaman, ANP 230 [place] [address] 06/26/2025 3:00 PM EST Office Visit [address] [address] Rut Branham MD 230 [place] [address] 07/03/2025 10:00 AM EST Office Visit [facility] 230 [place] [address] Naheed Zaman ANP 230 [place] [address] documented as of this encounter Visit Diagnoses Diagnosis Uncomplicated opioid dependence (CMS/HCC) (HCC) documented in this encounter Additional Health Concerns Assessment Noted Time PHQ-9 Depression Total Score: 7 10/05/19 25 2:06 PM EDT documented as of this encounter Care Teams Public Health Technician Relationship Specialty Start Date End Date Naheed Zaman ANP 230 [place] [address] PCP - General Family Medicine 01/18/22 Real Gomez MD [address] [place] [address] 3rd [place] [address] Cardiology 10/01/24 Chico Kebede, RN 505 [place] [address] Registered Nurse Family Medicine 02/03/25 02/03/25 Karal Mattson 04/03/25 04/04/25 Kalpesh Calles Disease Control InspectorSenior Marketing Data Analyst 02/21/25 documented as of this encounter
== END 2025-04-15 13:57 | disposition home or self-care (01) ==
LOC: HO.PMCPRC 12:46
PROVIDERS: PCP Nurse Practitioner Primary Care; Visit Provider Anesthesiology
DX: M19.012 Primary osteoarthritis, left shoulder (principal); M25.312 Other instability, left shoulder
CPT/HCPCS: 64555; 64590

== ENCOUNTER 2025-04-23 11:33 | Outpatient (AMB) | payer MEDICAID, SELFPAY ==
[2025-04-23 11:56] VITALS: BP 105/59; PULSE 94; RESP 16; O2SAT 96; BMI 64.2
--- NOTE | 2025-04-23 11:56 | A.OFFVIS_ITS ---
Vital Signs 04/23/25 11:56 Height 5 ft 5 in Weight 386 lb BMI 64.2 BP 105/59 L Blood Pressure Location Rt brachial Position Sitting Respiration 16 Pulse 94 Pulse Source Pulse Oximeter Pulse Oximetry (%) 96 Oxygen Delivery Method Room Air Intake Visit Reasons: S/P Left Suprascapular Sprint PNS Intake Note: Dressing changed Aircraft Maintenance Instructor Required: Yes Aircraft Maintenance Instructor Language: Mixing Tumbler Operator Name: NOA Stovall Accompanied by: Self / Same As Patient Allergies seafood Allergy (Severe, Verified 04/23/25 12:08) Swelling HPI Comments Details: Mr. Navarrete is back in my office again with complains on pain in the left shoulder. He has 1 week after insertion of the PNS sprint in the left suprascapular positioned. He reports no pain improvement. He reports feel stimulation in the appropriate areas and yet he states that the stimulation does not help his pain. We discussed situation at hands. I told the patient that this sprint PNS is the last resort to help the pain in his left shoulder. Alternatively he can not consider to lose his weight and have his shoulder replaced. He has advanced osteoarthritis of the left shoulder. He stated that he tried to lose weight but nothing works. I recommended him to consider bariatric surgery but he refused. We will continue observation for 2 more weeks if pain relief is not better we will remove the wire at that time. On dressing change today there is no signs of the infection no redness no swelling no pathological discharge. Sterile dressing was applied. Prior: In the past in this office he received left intra-articular shoulder injection. Initially this injection helped him in significant extent. However 2nd injection demonstrated no pain improvement. He reports unbearable pain in his left shoulder. I performed diagnostic suprascapular nerve block on the left and patient reports today that for 24 hours after the injection he felt very well. He reported almost complete pain relief for next 24 hours after the procedure. He reported excellent mobility with the limitations of his almost oncologic joint. He reported good social interactions because his pain got much better. In the past he received physical therapy for his shoulder without any success. 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 The procedure was very difficult to perform because patient could not positioned his arm anywhere on the table he requested arm to be hand from the age of the table during the procedure. Therefore visualization of the suprascapular notch was very difficult and I placed the needle into the presumable location of the sensory branches of the suprascapular nerve in the projection of the glenoid neck. I offered patient is sprint PNS to treat his condition. This is a last resort for this severely morbidly obese patient to help the pain in his left shoulder. He has poor candidate for total shoulder replacement because of his massive shoulders secondary to obesity. Radiofrequency ablation most likely we will be extremely difficult as well for this patient. Prior:? complaining on the pain in the left shoulder.? He reports that this pain was bothering him for many years but it was mild.? Two months ago the pain became severe.? He went for Orthopedic surgery office and Was recommended to have intra-articular shoulder steroid injection.? On the x-ray it was become demonstrating a loose body inside of his shoulder joint.? The dictation of the x-rays as below.? 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 For pain control he is taking meloxicam.? He never was a subject of physical therapy.? He had x-ray as dictated below [facility] Medical History Seronegative spondyloarthropathy Vitamin D deficiency Elevated C-reactive protein (CRP) Fibromyalgia Polyarthralgia Narcotic dependence Thrombocytopenia Carpal tunnel syndrome Sleep apnea Pre-op evaluation Hx of migraines BETSY on CPAP Pre-op evaluation HTN (hypertension), benign Insulin dependent type 1 diabetes mellitus Morbid obesity Shoulder dislocation Diabetes Surgical History Hx of colonoscopy History of esophagogastroduodenoscopy (EGD) Hx of hernia repair Hx of appendectomy Family History Mother No problems noted. Brother No problems noted. Daughter No problems noted. Daughter No problems noted. Daughter No problems noted. Son No problems noted. Son No problems noted. 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 Review of Systems Const All systems reviewed & are unremarkable except as noted in HPI and below ENT Reports Normal hearing present Neuro Reports Normal hearing present Physical Exam Vital Signs: Last Vital Signs Pulse 94 04/23/25 11:56 Resp 16 04/23/25 11:56 BP 105/59 L 04/23/25 11:56 Pulse Ox 96 04/23/25 11:56 Oxygen Delivery Method Room Air 04/23/25 11:56 BMI result Body Mass Index 64.2 Const General: cooperative, healthy appearing, comfortable, no acute distress, well developed and alert Nutritional Appearance: obese Orientation/consciousness: patient oriented x3 Limitations: no limitations HEENT Head: Yes normal to inspection, Yes normocephalic and Yes atraumatic Ears: hearing grossly normal bilaterally and external ears normal Eyes General: appearance normal, both eyes and all related structures Eyelids: Yes eyelids normal Sclerae: sclerae normal Chest Chest palpation & inspection: normal inspection of the chest (Grossly obese appearance) Resp Effort & Inspection: normal respiratory effort and able to speak in complete sentences Cardio Jugular venous distension: no JVD GI Inspection: Yes normal to inspection Skin Other: warm, dry General skin exam: no rashes or lesions noted Lesions: no lesions Rashes: no rashes Neuro General: patient oriented x3 Cranial nerves: Yes Normal hearing present Cognition (Neuro): normal cognition Gait exam (Neuro): Normal gait present Extrem Other: Left shoulder: Able to forward flexion to 25 degrees. Abduction to 25 degrees. External to neutral with little motion. Unable to do any further testing due to pain and limited ROM. General: Yes normal to inspection Psych Appearance: grossly normal and well kempt Speech and movement: Normal speech and movement present and Clear speech present Affect: normal affect Attitude: cooperative Thought process: Normal thought process present Thought content: Normal thought content present Insight: Good insight present (Psych) Judgement: Good judgement present (Psych) Assessment & Plan Assessment & Plan (1) Osteoarthritis of left shoulder: Code(s): M19.012 - Primary osteoarthritis, left shoulder Category: Medical Plan: (2) Morbid obesity: Code(s): E66.01 - Morbid (severe) obesity due to excess calories Category: Medical (3) Left shoulder pain: Code(s): M25.512 - Pain in left shoulder Category: Medical Plan The 3rd intra-articular shoulder injection was not as effective as the 1st 2 injections in the left shoulder joint. He never was examined by Orthopedic surgeon office for his left shoulder pain. He went for the consult with orthopedic surgery which recommended physical therapy for this patient. He reports today that he is unable to perform physical therapy because of severe pain. I performed the left diagnostic suprascapular nerve block. T he reported very good pain relief on diagnostic suprascapular nerve injection. Now he is in the office with no improvement of the pain, although he reports stimulation inappropriate areas. See discussion as above. We will see him in 1 week to change the dressing. In 2 more weeks if the pain is not better we will remove the wire. This procedure unfortunately is a last resort to treat the pain of this patient. Coding Level of Care Code Est Pt Level 3 (28028) Diagnoses Osteoarthritis of left shoulder M19.012 Morbid obesity E66.01 Left shoulder pain M25.512
--- OUTSIDE RECORDS SUMMARY | 2025-04-23 14:37 | XMS_ITS | Clinical Summary ---
Author Organization [address] [facility] Address [address] [place] [address] Phone Care Team Providers Care Customer Relations Consultant Name Role Phone Naheed Zaman NP Primary Care Provider [phone] Allergies Active Allergy Reactions Criticality Noted Date [...] 6 0.0-69.9, adult ([facility] V24, [facility] V28) 04/17/2024 Acquired pes planus 05/11/2017 Pure hypercholesterolemia 05/10/2017 Pulmonary hypertension ([facility] V24, [facility] V28 ) 05/10/2017 Overview [...] with renal complications ([facility] V24, [facility] V28) 04/30/2017 Spondylosis of lumbar region without myelopathy or radiculopathy 04/26/2017 Overview (04/17/2024): [place] [facility] [place] BETSY (obstructive sleep apnea) 04/26/2017 Overview (04/17/2024): Polysomnography 08/05/2009, [facility] :On cpap 14 cm H2O 10/23/2017 Home Sleep Study insufficient data. 08/2018 - Pulm ordered split night study. Diabetes mellitus type 2 wit h neurological manifestations ([facility] V24, [facility] V28) 04/26/2017 CTS (carpal [...] with renal complications ([facility] V24, [facility] V28) 04/30/2017 DX:DM (diabetes mellitus), t ype 2 with renal complications (HCC) Proteinuria 04/30/2017 DX:Proteinuria Diabetes mellitus type 2 wit h neurological manifestations ([facility] V24, [facility] V28) 04/26/2017 DX:Diabetes mellitus type 2 with neurological manifestations (HCC) Asthma 05/10/2017 DX:Asthma Elevated liver enzymes 05/10/2017 DX:Elevat ed liver enzymes; COMMENT: fatty liver Gout 05/10/2017 DX:Gout H. pylori infection 05/10/2017 DX:H. 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 DX:History of acute post-streptococcal glomerulonephritis; COMMENT: [place]ized [facility] [place]as[place]/ KUNAL 2010, streptolysin titer 1060, kidney bx, Followed in past by Dr Zapata, NSAIDS not recommended HTN (hypertension) 05/10/2017 DX:HTN (hyper tension) Morbid obesity with BMI of 6 0.0-69.9, adult ([facility] V24, [facility] V28) 04/26/2017 DX:Morbid obesity wit h BMI of 60.0-69.9, adult ([facility]) BETSY (obstructive sleep apnea) 04/26/2017 DX :BETSY (obstructive sleep apnea); COMMENT: [place]omn[place]05/2009[place] [facility] [place] 14 cm H2O Pulmonary hypertension ([facility] V24, [facility] V28) 05/10/2017 DX:Pulmonary hypertension ([facility]); COMMENT: Mild, ECHO 10/21/10 [facility], EF 65-70% Otherwise normal altho suboptimal views, [...] egion without myelopathy or radiculopathy; COMMENT: [place] [facility] [place]ology Family History Medical History Relation Name [...] Hospital Urine Albumin Creatinine Ratio Abstracted Result [facility] Provider HEALTH MAINTENANCE Final Result * Annual BMP Blood Test (02/27/2020) Pathologist [facility] Annual BMP Blood Test Abstracted Result [facility] Provider HEALTH MAINTENANCE Final Result * (ABNORMAL) Hemoglobin A1c (02/27/2020) Pathologist [facility] Hemoglobin A1C 6.9(A) <=6.5 % Blood Venous blood specimen / Unknown Result [facility] Provider LAB BLOOD ORDERABLES Brunilda l Result * Lipid panel (02/27/2020) Pathologist [facility] LDL/HDL Ratio 3 0 - 4 Triglycerides 91 0 - 150 mg/dL Cholesterol 145 0 - 200 mg/dL HDL 58 >=40 mg/dL LDL Cholesterol 69 0 - 100 mg/dL Blood Venous blood specimen / Unknown Result [facility] Provider LAB BLOOD ORDERABLES Brunilda l Result * Hepatitis C Screening (06/22/2017) Hepatitis C Screening Abstracted us Historical Provider HEALTH MAINTENANCE Final Result from Last 3 Months or Most Recently Relevant to Health Maintenance Insurance MEDICAID - [place] Care Teams Customer Relations Consultant Relationship Specialty Start Date End Date Naheed Zaman NP [address] [place] [phone] PCP - General 02/21/24
--- OUTSIDE RECORDS SUMMARY | 2025-04-23 14:37 | XMS_ITS | Clinical Summary ---
Author Organization [facility] Address [address] [place] [address] Phone Care Team Providers Care Air Carrier Maintenance Inspector Name Role Phone Naheed Zaman NP Primary Care Provider [phone] Allergies Active Allergy Reactions Criticality Noted Date [...] Description 02/05/2025 3:00 PM EDT Office Visit [facility] Medical Weight Management [address] [id number] Sri Andrade MD Morbid obesity (Primary Dx); [...] Info) Description 06/11/2025 1:30 PM EST Telemedicine [facility] Medical Weight Management [address] [facility] [address] [place] [address] Felicity Puentes CNP [address] [place] [address] 10/30/2025 10:40 AM EDT Office Visit [facility] Medical Weight Management [address] [address] Sri Andrade MD [address] [address] [email or web address] Health Maintenance Due Date Last Done Comments [...] topic Medical Devices Not on file Insurance [facility] C[employer] ACO [facility] C3 ACO Care Teams Air Carrier Maintenance Inspector Relationship Specialty Start Date End Date Naheed Zaman NP [address] [place] [phone] PCP - General Nurse Practitioner 01/02/25 Additional Source Comments The information contained in this document represents components of the legal health record. It is not the complete legal health record.[facility]
== END 2025-04-23 12:03 | disposition home or self-care (01) ==
PROVIDERS: PCP Nurse Practitioner Primary Care; Visit Provider Anesthesiology
DX: M19.012 Primary osteoarthritis, left shoulder (principal); E66.01 Morbid (severe) obesity due to excess calories; M25.512 Pain in left shoulder
CPT/HCPCS: 99024

== ENCOUNTER → 2025-04-23 11:33 | Outpatient (BNVA) | payer MEDICAID, SELFPAY | PROVIDERS: PCP Nurse Practitioner Primary Care; Visit Provider Anesthesiology | DX: M19.012 Primary osteoarthritis, left shoulder (principal); E66.01 Morbid (severe) obesity due to excess calories; Z68.44 Body mass index [BMI] 60.0-69.9, adult | CPT/HCPCS: 99212 ==

== ENCOUNTER 2025-05-06 08:04 | Outpatient (REF) | payer MEDICAID, SELFPAY ==
[2025-05-06 11:28] LABS: Anion Gap 10 (12-20); Blood Urea Nitrogen 27 mg/dL (9-16); Calcium 9.0 mg/dL (8.4-10.2); Carbon Dioxide 31 mmol/L (22-29); Chloride 106 mmol/L (96-108); Estimated Glomerular Filt Rate 54; Potassium 4.2 mmol/L (3.3-5.1); Sodium 143 mmol/L (135-145)
== END 2025-05-06 08:05 | disposition home or self-care (01) ==
LOC: HO.HHCL 08:04
PROVIDERS: Nurse Practitioner Family; PCP Nurse Practitioner Primary Care; Visit Provider Nurse Practitioner Primary Care
DX: E11.21 Type 2 diabetes mellitus with diabetic nephropathy (principal); Z91.09 Other allergy status, other than to drugs and biological substances
CPT/HCPCS: 36415; 80048; 82785; 86003

== ENCOUNTER 2025-05-14 13:32 | Outpatient (AMB) | payer MEDICAID, SELFPAY ==
--- OUTSIDE RECORDS SUMMARY | 2025-05-09 14:30 | XMS_ITS | Encounter Summary ---
Author Organization [employer] Address [address] [place] [address] Care Team Providers Care Associate Store Director Name Role Phone Naheed Zaman Primary Care Provider [phone] Real Gomez MD Unavailable Reason for Visit * Reason Comments Annual Exam Encounter Details Date Type Department Care Team (Latest Contact Info) Description 05/09/2025 2:30 PM EST Office Visit [facility] [address] [place] [address] Naheed Zaman ANP [address] [place] [address] Type 2 diabetes mellitus with hyperlipidemia (CMS/HCC) (Primary Dx); Severe episode of recurrent major depressive disorder, without psychotic features (CMS/HCC) (HCC); BETSY (obstructive sleep apnea); Bilateral lower extremity edema; Healthcare maintenance; Pain of both eyes; Stage 3 chronic kidney disease, unspecified whether stage 3a or 3b CKD (CMS/HCC) (HCC) Social History Tobacco Use Types Packs/Day [...] Sign Reading Time Taken Comments Blood Pressure 128/74 05/09/2025 2:59 PM EST Pulse 76 05/09/2025 2:59 PM EST Temperature 36.3 C (97.3 F) 05/09/2025 2:59 PM EST Respiratory Rate 15 05/09/2025 2:59 PM EST Oxygen Saturation 98% 05/09/2025 2:59 PM EST Inhaled Oxygen Concentration - - Weight 187 kg (412 lb) 05/09/2025 2:59 PM EST Height 165.1 cm (5' 5 ) 05/09/2025 2:59 PM EST Body Mass Index 68.56 05/09/2025 2:59 PM EST documented in this encounter Progress Notes * JOSIAH Marquez - 05/09/2025 2:30 PM EST SUBJECTIVE: Ross Navarrete is a 44 y.o. year old male who presents for routine physical exam. Denies recent illness, injury, or hospitalization. 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 Now following w/ bariatrics/wt mgmt at [facility] Acute Concerns: Rsos Navarrete, age: 44 years Eye Pain and Photophobia - Eye pain and discomfort with light exposure, requiring eyes to be closed - Increased severity of symptoms recently - History of prior vision problems approximately 3 years ago, described as getting kind of blind - does feel dry eyes Fatigue and Sleep Issues - Always feels very tired upon waking - Uses sleep machine at night - Experiences shortness of breath and feels need for oxygen during sleep - Reports fighting for breath at night Lower Extremity Swelling and Pain - Feet are very swollen - Pain in feet increases after standing for at least 5 minutes - Swelling and pain described as worse than usual Gastrointestinal Symptoms - Decreased appetite compared to previous habits - Increased frequency of bowel movements after eating Rheumatologic Symptoms - Receives weekly injections - Reports improvement with weekly injections - History of rheumatologic evaluation for possible rheumatoid arthritis and fibromyalgia Kidney Function - History of impaired kidney function, reported as improved prior to this visit. He has resumed meloxicam b/c he is in so much pain. Araceli ROSSI provided [place]dean interpretation. Social History Social History Narrative Not on file Problem List[1] Surgical History[2] Family History[3] Review of Systems Constitutional: Positive for fatigue. Negative for fever. HENT: Negative for sore throat. Respiratory: Negative for cough. Orthopnea Cardiovascular: Negative for leg swelling. Gastrointestinal: Negative for abdominal pain and constipation. Genitourinary: Negative for frequency. Musculoskeletal: Positive for arthralgias and joint swelling. Negative for back pain and myalgias. Skin: Negative for color change. Neurological: Negative for weakness and numbness. Psychiatric/Behavioral: Positive for dysphoric mood. Negative for sleep disturbance. The patient isnervous/anxious. OBJECTIVE: Vitals: 05/09/25 1459 BP: 128/74 BP Location: Left arm Patient Position: Sitting BP Cuff Size: Large adult Pulse: 76 Resp: 15 Temp: 97.3 ??F (36.3 ??C) TempSrc: Temporal SpO2: 98% Weight: 412 lb (187 kg) Height: 5' 5 (1.651 m) Physical Exam Vitals reviewed. Constitutional: General: He is not in acute distress. Appearance: Normal appearance. He is obese. He is not ill-appearing. HENT: Head: Normocephalic and atraumatic. Right Ear: Tympanic membrane, ear canal and external ear normal. Left Ear: Tympanic membrane, ear canal and external ear normal. Eyes: General: No scleral icterus. Extraocular Movements: Extraocular movements intact. Pupils: Pupils are equal, round, and reactive to light. Comments: Closes eyes for most of visit Cardiovascular: Rate and Rhythm: Normal rate and regular rhythm. Pulses: Dorsalis pedis pulses are 1+ on the right side and 1+ on the left side. Posterior tibial pulses are 1+ on the right side and 1+ on the left side. Pulmonary: Effort: Pulmonary effort is normal. No accessory muscle usage or respiratory distress. Breath sounds: Normal breath sounds. Abdominal: General: Bowel sounds are normal. Palpations: Abdomen is soft. Tenderness: There is no abdominal tenderness. Musculoskeletal: Comments: Trace swelling BLE Feet: Right foot: Protective Sensation: 7 sites tested. 3 sites sensed. Left foot: Protective Sensation: 7 sites tested. 3 sites sensed. Lymphadenopathy: Cervical: No cervical adenopathy. Skin: General: Skin is warm and dry. Neurological: Mental Status: He is alert and oriented to person, place, and time. Psychiatric: Mood and Affect: Mood normal. Behavior: Behavior normal. ASSESSMENT/PLAN Ross was seen today for annual exam. Diagnoses and all orders for this visit: Type 2 diabetes mellitus with hyperlipidemia (CMS/HCC) (Primary) Lab Results Component Value Date HGBA1C 7.0 (A) 05/09/2025 He is following w/ endo No change to meds Started on mounjaro via bariatrics w/o change in chronic GI symptoms Foot exam today w/ decreased sensation to monofilament - POCT Glucose - POCT Hgb A1c Severe episode of recurrent major depressive disorder, without psychotic features (CMS/HCC) (HCC) He is engaged w counseling and psych BETSY (obstructive sleep apnea) Pt cont to benefit from and require CPAP/APAP/BiPAP therapy. Bilateral lower extremity edema Needs compression socks Rx renewed Reviewed need for ongoing low salt diet, elevation, exercise as tolerated Cont hydrochlorothiazide Healthcare maintenance Up to date w/ most activities Eye exam up to date and [facility] Dr. Burk graciously accomodated pt w/ urgent visit for eye pain evaluation next week CKD Suspect d/t hypertension, DM. Referred to renal last mo. Tried to avoid meloxicam but pt re-startedd/t severity of polyarthralgia. Pain of both eyes As above; differential diagnosis incl uveitis, dry eyes, ED precautions reviewed - dextran 70-hypromellose (artificial tears) 0.1-0.3 % ophthalmic solution; Administer 1 drop into both eyes if needed in the morning, at noon, and at bedtime for dry eyes. This note was drafted using Ambient (AI) technology. The patient/patient's guardian has been informed and has consented to the use of this technology: Yes Based on our discussion, I have outlined the following instructions for you: - Check your sleep machine settings to make sure they're right. If you're still feeling very tired,talk to a sleep specialist. - Start using new compression socks to help with the swelling in your feet and legs. - Use artificial tears (eye drops) over the weekend to help with your eye discomfort. If your eyes start to hurt more, get help right away. - Keep taking your weekly injections as your middle school english teacher told you. Let them know if you're feeling better with the weekly doses. - Start taking meloxicam again as you were told before. Future Appointments Date Time Provider Department Center 06/26/2025 3:00 PM Rut Branham MD [facility] 08/08/2025 11:00 AM JOSIAH Marquez [facility] Follow Up: Future Appointments Date Time Provider Department Center 06/26/2025 3:00 PM Rut Branham MD [facility] 08/08/2025 11:00 AM JOSIAH Marquez [facility] Medications Ordered Prior to Encounter[4] [place] Verdean Translation: Araceli ROSSI provided [place] interpretation. [1] Patient Active Problem List Diagnosis [...] IF NEEDED FOR DRY SKIN. ARIPiprazole (Abilify) 20 MG tablet Take 1 tablet by mouth in the morning. Arnuity Ellipta 100 MCG/ACT inhaler INHALE 1 PUFF BY MOUTH EVERY DAY AT THE SAME TIME RINSE MOUTH AFTER USING atorvastatin (Lipitor) 10 MG tablet Take 1 tablet (10 mg) by mouth at bedtime. 90 tablet 3 betamethasone valerate (Valisone) 0.1 % cream APPLY TOPICALLY TWICE DAILY IN THE MORNING AND AT BEDTIME NEEDED DRY SKIN 45 g 2 Blood Glucose Monitoring Suppl (PicaHome.comStyle [place] Lite) w/Device kit TEST BLOOD SUGAR FOUR TIMES DAILY Blood Pressure Monitor kit 1 kit in the morning. 1 kit 0 Continuous Glucose Wool Broker (FreeStyle Casey [address]) device 1 each Once per day. Use as directed for CGM 1 each 0 Continuous Glucose Sensor (FreeStyle Casey 3 Plus Sensor) misc 1 each every 15 days. Apply 1 every 15 days as directed for CGM 2 each 11 Cosentyx Sensoready, 300 MG, [...] BY MOUTH EVERY MORNING 90 capsule 1 glucose 4 g chewable tablet CHEW 4 TABLETS NEEDED LOW BLOOD SUGAR glucose blood (FreeStyle Precision Lefty Test) test strip Use to test blood sugar 3 times daily in case of CGM failure or extremes of BG 100 each 11 insulin glargine (Lantus SoloStar) 100 UNIT/ML pen INJECT 40 UNITS SUBCUTANEOUSLY AT BEDTIME 15 mL 3 Lidoderm 5 % patch APPLY 1 PATCH TOPICALLY DAILY LEAVE ON MOST PAINFUL AREA FOR UP TO 12 HRS Magnesium Oxide -Mg Supplement 400 MG capsule 1 capsule at bedtime for cramps, stop if loose stool occurs 90 capsule 3 melatonin 3 MG tablet Take 1 tablet [...] mg by mouth before breakfast. pregabalin (Lyrica) 100 MG capsule TAKE 1 TABLET BY MOUTH TWICE DAILY IN THE MORNING AND IN THE EVENING pyridoxine (Vitamin B-6) 250 MG tablet TAKE 1 TABLET BY MOUTH IN THE EVENING FOR LEG CRAMPS. NO MORE THAN 1 TABLET (250mg) PER DAY Suboxone 8-[address] 3 Film under the tongue Once per day. 84 Film 2 Sure Comfort Pen [place] 31G X 5 MM misc USE FOUR TIMES DAILY WITH INSULIN tamsulosin (Flomax) 0.4 MG 24 hr capsule TAKE 1 CAPSULE BY MOUTH DAILY 30 MINUTES AFTER THE SAME MEAL EVERY DAY 60 capsule 3 TRUEplus Lancets 33G misc TEST BLOOD SUGAR FOUR TIMES DAILY Ventolin HFA 108 (90 Base) MCG/ACT inhaler INHALE 2 PUFFS BY MOUTH EVERY 4 TO 6 HOURS NEEDED FORWHEEZING OR SHORTNESS OF BREATH [DISCONTINUED] Continuous Glucose Wool Broker (FreeStyle Casey [address]) device Scan sensor every 8 hours 1 each 0 [DISCONTINUED] Continuous Glucose Sensor (FreeStyle Casey 2 Sensor) misc Apply 1 sensor every 14 days 2 each 11 [DISCONTINUED] FREESTYLE LITE test strip TEST BLOOD SUGAR FOUR TIMES DAILY [DISCONTINUED] glucose blood (FREESTYLE LITE) test strip check fingerstick 4 times a day No current facility-administered medications on file prior to visit. documented in this encounter Plan of Treatment Upcoming Encounters Date Type Department Care Team (Late st Contact Info) Description 06/26/2025 3:00 PM EST Office Visit [address] [address] Rut Branham MD [address] [place] [id number] 08/08/2025 11:00 AM EDT Office Visit [address] [address] Naheed Zaman ANP [address] [place] [phone] documented as of this encounter Goals Goal [...] Care Plan Weekly blood pressure task No Weekly blood pressure task Care Plan Weekly blood pressure task No Patient has chronic kidney disease Care Plan Patient has chronic kidney disease No Patient has chronic kidney disease Care Plan Patient has chronic kidney disease No Weekly blood pressure task Care Plan Weekly blood pressure task No Emerald Deshpande RN Weekly blood pressure task Care Plan Weekly blood pressure task No Emerald Deshpande RN Patient has chronic kidney disease Care Plan Patient has chronic kidney disease No Emerald Deshpande RN Patient has chronic kidney disease Care Plan Patient has chronic kidney disease No Emerald Deshpande RN Weekly blood pressure task Care Plan Weekly blood pressure task No Naheed Zaman ANP Weekly blood pressure task Care Plan Weekly blood pressure task No Naheed Zaman ANP Patient has chronic kidney disease Care Plan Patient has chronic kidney disease No Naheed Zaman ANP Patient has chronic kidney disease Care Plan Patient has chronic kidney disease No Naheed Zaman ANP Weekly blood pressure task Care Plan Weekly blood pressure task No Naheed Zaman ANP Weekly blood pressure task Care Plan Weekly blood pressure task No Naheed Zaman ANP Patient has chronic kidney disease Care Plan Patient has chronic kidney disease No Naheed Zaman ANP Patient has chronic kidney disease Care Plan Patient has chronic kidney disease No Naheed Zaman ANP Weekly blood pressure task Care Plan Weekly blood pressure task No Slime Abbott Weekly blood pressure task Care Plan Weekly blood pressure task No Slime Abbott Patient has chronic kidney disease Care Plan Patient has chronic kidney disease No Slime Abbott Patient has chronic kidney disease Care Plan Patient has chronic kidney disease No Slime Abbott Weekly blood pressure task Care Plan Weekly blood pressure task No Zay Schmidt DDS Weekly blood pressure task Care Plan Weekly blood pressure task No Zay Schmidt DDS Patient has chronic kidney disease Care Plan Patient has chronic kidney disease No Zay Schmidt DDS Patient has chronic kidney disease Care Plan Patient has chronic kidney disease No Zay Schmidt DDS Weekly blood pressure task Care Plan Weekly blood pressure task No Araceli Hunter MA Weekly blood pressure task Care Plan Weekly blood pressure task No Araceli Hunter [place] Patient has chronic kidney disease Care Plan Patient has chronic kidney disease No Araceli Hunter [place] Patient has chronic kidney disease Care Plan Patient has chronic kidney disease No Araceli Hunter MA Weekly blood pressure task Care Plan Weekly blood pressure task No Naheed Zaman ANP Weekly blood pressure task Care Plan Weekly blood pressure task No Naheed Zaman ANP Patient has chronic kidney disease Care Plan Patient has chronic kidney disease No Naheed Zaman ANP Patient has chronic kidney disease Care Plan Patient has chronic kidney disease No Naheed Zaman ANP Weekly blood pressure task Care Plan Weekly blood pressure task No Araceli Hunter MA Weekly blood pressure task Care Plan Weekly blood pressure task No Araceli Hunter [place] Patient has chronic kidney disease Care Plan Patient has chronic kidney disease No Araceli Hunter [place] Patient has chronic kidney disease Care Plan Patient has chronic kidney disease No Araceli Hunter MA Weekly blood pressure task Care Plan Weekly blood pressure task No Araceli Hunter MA Weekly blood pressure task Care Plan Weekly blood pressure task No Araceli Hunter [place] Patient has chronic kidney disease Care Plan Patient has chronic kidney disease No Araceli Hunter [place] Patient has chronic kidney disease Care Plan Patient has chronic kidney disease No Araceli Hunter [place] Weekly blood pressure task Care Plan Weekly blood pressure task No Arlette Hill RN Weekly blood pressure task Care Plan Weekly blood pressure task No Arlette Hill RN Patient has chronic kidney disease Care Plan Patient has chronic kidney disease No Arlette Hill RN Patient has chronic kidney disease Care Plan Patient has chronic kidney disease No Arlette Hill RN documented as of this encounter Procedures Procedure Name Priority Date/Time Associated Diagnosis Comments POCT GLYCATED HEMOGLOBIN, TOTAL Routine 05/09/2025 3:01 PM EST Type 2 diabetes mellitus with hyperlipidemia ([facility]) POCT GLUCOSE Routine 05/09/2025 3:00 PM EST Type 2 diabetes mellitus with hyperlipidemia ([facility]) documented in this encounter Results * (ABNORMAL) POCT Hgb A1c (05/09/2025 3:01 PM EST) [facility] Hemoglobin A1C 7.0(A) 4.0 - 5.7 % QC Media Lot # [id number] Lot# Expiration Date 658 Blood 05/09/2025 3:01 PM EST us Naheed RAHMAN POINT OF CARE TEST ENTER/EDIT OR DERABLES Final Result * POCT Glucose (05/09/2025 3:00 PM EST) Glucose Blood, POC 177 60 - 200 mg/dL QC Media Lot # [id number] Lot# Expiration Date 64,040 Blood Capillary blood specimen / Unknown 05/09/2025 3:00 PM EST us Naheed RAHMAN POINT OF CARE TEST ENTER/EDIT OR DERABLES Final Result documented in this encounter Visit Diagnoses Diagnosis Type 2 diabetes mellitus with hyperlipidemia (CMS/[facility])- Primary Severe episode of recurrent major depressive disorder, without psychotic features (CMS/[facility]) (HCC) BETSY (obstructive sleep apnea) Obstructive sleep apnea (adult) (pediatric) Bilateral lower extremity edema Healthcare maintenance Pain of both eyes Stage 3 chronic kidney disease, unspecified whether stage 3a or 3b CKD (CMS/[facility]) ([facility]) documented in this encounter Additional Health Concerns Active Problems Noted Date Diagnosed Date Help patients manage their type 2 diabetes 04/11 Weekly blood pressure task 04/11/2025 Help patients manage their type 2 diabetes 04/11 Patient has chronic kidney disease 04/11/2025 Weekly blood pressure task 04/11/2025 Patient has chronic kidney disease 04/11/2025 Weekly blood pressure task 04/17/2025 Weekly blood pressure task 04/17/2025 Patient has chronic kidney disease 04/17/2025 Patient has chronic kidney disease 04/17/2025 Weekly blood pressure task 04/18/2025 Weekly blood pressure task 04/18/2025 Patient has chronic kidney disease 04/18/2025 Patient has chronic kidney disease 04/18/2025 Weekly blood pressure task 04/22/2025 Weekly blood pressure task 04/22/2025 Patient has chronic kidney disease 04/22/2025 Patient has chronic kidney disease 04/22/2025 Weekly blood pressure task 04/22/2025 Weekly blood pressure task 04/22/2025 Patient has chronic kidney disease 04/22/2025 Patient has chronic kidney disease 04/22/2025 Weekly blood pressure task 04/29/2025 Weekly blood pressure task 04/29/2025 Patient has chronic kidney disease 04/29/2025 Patient has chronic kidney disease 04/29/2025 Weekly blood pressure task 05/07/2025 Weekly blood pressure task 05/07/2025 Patient has chronic kidney disease 05/07/2025 Patient has chronic kidney disease 05/07/2025 Weekly blood pressure task 05/07/2025 Weekly blood pressure task 05/07/2025 Patient has chronic kidney disease 05/07/2025 Patient has chronic kidney disease 05/07/2025 Weekly blood pressure task 05/08/2025 Weekly blood pressure task 05/08/2025 Patient has chronic kidney disease 05/08/2025 Patient has chronic kidney disease 05/08/2025 Weekly blood pressure task 05/09/2025 Weekly blood pressure task 05/09/2025 Patient has chronic kidney disease 05/09/2025 Patient has chronic kidney disease 05/09/2025 Weekly blood pressure task 05/09/2025 Weekly blood pressure task 05/09/2025 Patient has chronic kidney disease 05/09/2025 Patient has chronic kidney disease 05/09/2025 Weekly blood pressure task 05/09/2025 Weekly blood pressure task 05/09/2025 Patient has chronic kidney disease 05/09/2025 Patient has chronic kidney disease 05/09/2025 Assessment Noted Time PHQ-9 Depression Total Score: 7 10/05/19 25 2:06 PM EDT documented as of this encounter Care Teams Associate Store Director Relationship Specialty Start Date End Date Naheed Zaman ANP [address] [place] [phone] PCP - General Family Medicine 01/18/22 Real Gomez MD [address] [place] [address] [address] [place] [address] Cardiology 10/01/24 Kalpesh Calles Refrigeration Mechanic HelperLaydown Machine Operator 02/21/25 documented as of this encounter
--- OUTSIDE RECORDS SUMMARY | 2025-05-13 14:30 | XMS_ITS | Encounter Summary ---
Author Organization [employer] Address [address] [place] [address] Care Team Providers Care Leaf Conditioner Name Role Phone aNheed Zaman Primary Care Provider [phone] Real Gomez MD Unavailable Encounter Details Date Type Department Care Team ([facility] Contact Info) Description 05/13/2025 2:30 PM EST Office Visit [facility] [address] [place] [address] Kaitlyn Burk, OD [address] [place] [address] Social History Tobacco Use Types Packs/Day Years [...] Description 06/26/2025 3:00 PM EST Office Visit [facility] [address] [place] [phone] Rut Branham MD [address] [place] [phone] 08/08/2025 11:00 AM EDT Office Visit [facility] [address] [place] [phone] Naheed Zaman ANP [address] [place] [address] documented as of this encounter Goals Goal [...] chronic kidney disease No Arlette Hill RN Weekly blood pressure task Care Plan Weekly blood pressure task No Kaitlyn Burk OD Weekly blood pressure task Care Plan Weekly blood pressure task No Kaitlyn Burk OD Patient has chronic kidney disease Care Plan Patient has chronic kidney disease No Kaitlyn Burk OD Patient has chronic kidney disease Care Plan Patient has chronic kidney disease No Kaitlyn Burk OD documented as of this encounter Visit Diagnoses [...] kidney disease 05/09/2025 Weekly blood pressure task 05/13/2025 Weekly blood pressure task 05/13/2025 Patient has chronic kidney disease 05/13/2025 Patient has chronic kidney disease 05/13/2025 Assessment Noted Time PHQ-9 Depression Total Score: 7 10/05/19 25 2:06 PM EDT documented as of this encounter Care Teams Leaf Conditioner Relationship Specialty Start Date End Date Naheed Zaman ANP [address] [place] [id number] PCP - General Family Medicine 01/18/22 Real Gomez MD [address] [place] [address] 3[address] [place] [address] Cardiology 10/01/24 Kalpesh Calles Hand Kiss SetterPaperboard Box Maker 02/21/25 documented as of this encounter
--- NOTE | 2025-05-14 14:40 | A.OFFVIS_ITS ---
Intake Visit Reasons: body pain/ eye pain Allergies seafood Allergy (Severe, Verified 04/23/25 12:08) Swelling Medication List - Last Reconciled 05/14/25 by Gwen Haro MD acetaminophen (Acetaminophen Extra Strength) 500 mg PO Q6H PRN albuterol sulfate 90 mcg/actuation 2 puffs inhalation Q4-6H PRN ammonium lactate 12% topical ammonium lactate 12% appl topical aripiprazole 15 mg PO DAILY atorvastatin 10 mg PO BEDTIME betamethasone valerate 0.1% appl topical buprenorphine-naloxone 8-2 mg (Suboxone) 1 film sublingual TID cholecalciferol (vitamin D3) 50 mcg PO DAILY clotrimazole 1% appl topical BID cyclobenzaprine 10 mg PO TID 30 days esomeprazole magnesium 40 mg PO QAM famotidine 20 mg PO BEDTIME flash glucose sensor (FreeStyle Casey 2 Sensor kit) As directed fluoxetine 60 mg PO DAILY fluticasone furoate 100 mcg/actuation (Arnuity Ellipta) 1 inh inhalation DAILY insulin glargine (Lantus Solostar U-100 Insulin) 55 units subcut BEDTIME insulin lispro (Humalog KwikPen (U-100) Insulin) 35 units subcut TID lidocaine 5% 1 patch topical DAILY PRN magnesium oxide 400 mg PO DAILY 2 months MDD 400mg melatonin 3 mg PO BEDTIME PRN meloxicam 15 mg PO DAILY 30 days olmesartan-hydrochlorothiazide 40-12.5 mg 1 tab PO DAILY phentermine 15 mg PO QAM pregabalin 100 mg PO Q12H pyridoxine (vitamin B6) 250 mg PO DAILY 2 months MDD 250mg secukinumab (Cosentyx Pen) 150 mg subcut QWEEK secukinumab (Cosentyx Pen) 150 mg subcut Q4W sodium,potassium,mag sulfates 17.5-3.13-1.6 gram (Suprep Bowel Prep Kit) DILUTE as per instructions given tamsulosin 0.4 mg PO DAILY tirzepatide (Mounjaro) mg subcut QWEEK zinc oxide 40% (Diaper Rash) topical HPI Comments Details: This is a 44-year-old man with a history of diabetes for about 15 years GERD hypertension hyperlipidemia, morbid obesity, anemia arthritis substance abuse disorder including alcohol and narcotics currently on methadone maintenance. He also has arthritis anemia and asthma. He is treated for depression and anxiety. He is here because of generalized body pain in the upper and lower extremities for a couple of years worse in the last 6 months and some pains in and behind the eyes. [facility] Medical History Seronegative spondyloarthropathy Vitamin D deficiency Elevated C-reactive protein (CRP) Fibromyalgia Polyarthralgia Narcotic dependence Thrombocytopenia Carpal tunnel syndrome Sleep apnea Pre-op evaluation Hx of migraines BETSY on CPAP Pre-op evaluation HTN (hypertension), benign Insulin dependent type 1 diabetes mellitus Morbid obesity Shoulder dislocation Diabetes Surgical History Hx of colonoscopy History of esophagogastroduodenoscopy (EGD) Hx of hernia repair Hx of appendectomy Family History Mother No problems noted. Brother No problems noted. Daughter No problems noted. Daughter No problems noted. Daughter No problems noted. Son No problems noted. Son No problems noted. 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 Review of Systems Const Reports fatigue and Reports fever(s) Eyes Reports blurry vision and Reports diplopia ENT Reports dizziness Card Reports palpitations GI Reports abdominal pain Neuro Reports behavioral changes, Reports confusion, Reports dizziness and Reports m geraldine loss Psych Reports anxiety, Reports behavioral changes, Reports confusion, Reports depression, Reports memory loss and Reports suicidal ideation Endo Reports fatigue and Reports palpitations Physical Exam Const General: confusion Orientation/consciousness: confusion Neuro Other: Mini Mental Status Exam Level of Consciousness:?Alert.? Orientation:?Knows correct year, month, date, day and season.?Knows correct city, county and state. Knows correct location and floor.? Registration:?Able to register 3 objects.? Attention:?Serial 7's performed?? accurately.? Recall:?Able to recall 3 out of 3 objects.? Language:?Normal spontaneous speech, fluency, repetition, naming, comprehension, reading, and writing.? ?? Total Score:?30/30.? Neurological Abnormal neurological findings:??Walks with a cane ? Mental Status:?Alert and oriented X 3.?Normal attention, orientation, memory, and affect.? Cranial Nerves:?Pupils are equal, round and reactive to light. Fundoscopy shows normal disc bilaterally. External ocular muscles are intact. Visual mccabe are full, no ptosis. Face is symmetrical, no facial weakness or droop. Facial sensations are normal.? Tongue protrudes in midline. Palate elevates symmetrically. Shoulder?? shrugging is normal.? Motor Examination:?Normal muscle tone, bulk and strength.?No atrophy or fasciculations.?No drift of the extended upper extremities.?Deep tendon reflexes are 2+.?Plantars?? are flexor.? ?Motor Strength:? Proximal Muscles (out of 5):?5 Distal Muscles (out of 5):?5 Neck Flexors (out of 5):?5 Neck Extensors (out of 5):?5 Deltoid (out of 5):?5 Biceps (out of 5):?5 Triceps (out of 5):?5 Serratus Anterior (out of 5):?5 Wrist Extensors (out of 5):?5 APB (out of 5):?5 Finger Spread (out of 5):?5 Ileopsoas (out of 5):?5 Quadriceps (out of 5):?5 Hamstrings (out of 5):?5 Tibialis Anterior (out of 5):?5 Peronei (out of 5):?5 EDB (out of 5):?5 Gastrocnemius (out of 5):?5 Straight Leg Raising:?90 degrees.? Sensory Exam:?Normal light touch,?? temperature, pinprick, vibration and joint- position sensations.?Rhomberg?? sign is absent.? Coordination:?No ataxia,?no titubation,?reutsd-wn-kvfg, nkyh-hjsl-difz test, and rapid alternating?? movements were normal.? Gait Exam:?Normal. ? Cerebellar Signs:?Bztqab-hw-xisg and?? yusk-lv-mtxe is normal.?No dysd iadochokinesia.? Extrapyramidal System:?No tremor or?rigidity, normal facial expressions.?No bradykinesia. No bradyphrenia. Normal arm swing and posture. No propulsion or retropulsion.? Speech:?Normal,?no dysphasia or dysarthria.? General Examination GENERAL APPEARANCE:??Morbid obesity, in no acute distress?.? ?? HEAD:??normocephalic,?atraumatic.? ?? EYES:??sclera non-icteric,?conjunctiva clear.? ?? EARS:??auditory canal clear,?tympanic membrane intact, clear.? ?? NOSE:??no lesions.? ?? ORAL CAVITY:??gums normal,?mucosa moist,?no lesions.? ?? THROAT:??clear.? ?? NECK/THYROID:??no cervical lymphadenopathy,?thyroid normal,?neck supple, full range of motion,?no carotid bruit.? ?? SKIN:??no rashes,?no significant?? birthmarks.? ?? HEART:??S1, S2 normal,?no murmurs? ?? LUNGS:??clear anteriorly and ?posteriorly? ?? CHEST:??no gross rib deformity,?clear to ?auscultation.? ?? BACK:??normal exam of spine.? ?? MUSCULOSKELETAL:??normal.? ?? EXTREMITIES:??no edema.? ?? PERIPHERAL PULSES:??normal.? ?? PSYCH:??alert, oriented,?cognitive function intact,?cooperative with exam?,?alert,?? oriented,?cognitive ?function intact,?cooperative with exam.? General: confusion Assessment & Plan Assessment & Plan (1) Peripheral neuropathy: Code(s): G62.9 - Polyneuropathy, unspecified Category: Medical (2) Fibromyalgia: Code(s): M79.7 - Fibromyalgia Category: Medical (3) Sleep apnea treated with continuous positive airway pressure (CPAP): Code(s): G47.30 - Sleep apnea, unspecified Category: Medical (4) Opioid use disorder: Code(s): F11.90 - Opioid use, unspecified, uncomplicated Category: Medical Plan Labs Sedrate, CPK, TSH, NCV/ EMG upper and lower limbs Orders: Orders CK, Total+Isoenzymes, Serum Today G62.9 - Polyneuropathy, unspecified, M79.7 - Fibromyalgia TSH reflex Free T4 Today G62.9 - Polyneuropathy, unspecified, M79.7 - Fibromyalgia NE nerve conduction velocity Today G62.9 - Polyneuropathy, unspecified, M79.7 - Fibromyalgia Erythrocyte Sedimentation Rate Today G62.9 - Polyneuropathy, unspecified, M79.7 - Fibromyalgia NE electromyogram (EMG) Today G62.9 - Polyneuropathy, unspecified, M79.7 - Fibromyalgia Coding Level of Care Code New Pt Level 5 (60446) Diagnoses Peripheral neuropathy G62.9 Fibromyalgia M79.7 Sleep apnea treated with continuous positive airway pressure (CPAP) G47.30 Opioid use disorder F11.90
--- OUTSIDE RECORDS SUMMARY | 2025-05-14 17:51 | XMS_ITS | Encounter Summary ---
Author Organization [employer] Address [address] 7t [place] [address] Care Team Providers Care Retail Cosmetics Sales Counter Manager Name Role Phone Naheed Zaman Primary Care Provider [phone] Real Gomez MD Unavailable Chico Kebede RN Unavailable [phone] Karla Mattson Unavailable Reason for Visit * Reason Comments Med Refill Encounter Details Date Type Department Care Team (Late st Contact Info) Description 09/14/2023 Refill [facility] 230 [place], [place] [phone] Dayna Cardenas MD 230 [place], [place] [phone] Uncomplicated opioid dependence (CMS/HCC) Social History Tobacco [...] Description 06/26/2025 3:00 PM EST Office Visit [facility] [address] [place] [address] Rut Branham MD [address] [place] [address] 08/08/2025 11:00 AM EDT Office Visit [facility] [address] [place] [address] Naheed Zaman ANP [address] [place] [phone] documented as of this encounter Visit Diagnoses Diagnosis Uncomplicated opioid dependence (CMS/HCC) (HCC) documented in this encounter Additional Health Concerns Assessment Noted Time PHQ-9 Depression Total Score: 6 11/19/19 23 3:29 PM EDT documented as of this encounter Care Teams Retail Cosmetics Sales Counter Manager Relationship Specialty Start Date End Date Naheed Zaman ANP [address] [place] [address] PCP - General Family Medicine 01/18/22 Real Gomez MD [address] 3rd [place] [address] Cardiology 10/01/24 Chico Kebede RN [address] [place] [address] Registered Nurse Family Medicine 02/03/25 02/03/25 Karla Mattson 04/03/25 04/04/25 Kalpesh Calles Binding StitcherSaddle Maker 02/21/25 documented as of this encounter
--- OUTSIDE RECORDS SUMMARY | 2025-05-14 17:51 | XMS_ITS | Encounter Summary ---
Author Organization [employer] Address [address] [facility] 7t [place] [address] Care Team Providers Care Stonemason Helper Name Role Phone Naheed Zaman Primary Care Provider [phone] Real Gomez MD Unavailable Chico Kebede RN Unavailable [phone] Karla Mattson Unavailable Reason for Visit * Reason Comments Med Refill Encounter Details Date Type Department Care Team (Late st Contact Info) Description 08/18/2023 Refill [facility] 230 [place], [place] [phone] Naheed Zaman ANP 230 [place], [place] [phone] Chronic low back pain without sciatica, unspecified [...] Description 06/26/2025 3:00 PM EST Office Visit [facility] [address] [place] [address] Rut Branham MD [address] [place] [address] 08/08/2025 11:00 AM EDT Office Visit [facility] [address] [place] [address] Naheed Zaman ANP [address] [place] [address] documented as of this encounter Visit Diagnoses Diagnosis Chronic low back pain without sciatica, unspecified back pain laterality documented in this encounter Additional Health Concerns Assessment Noted Time PHQ-9 Depression Total Score: 6 11/19/19 23 3:29 PM EDT documented as of this encounter Care Teams Stonemason Helper Relationship Specialty Start Date End Date Naheed Zaman ANP [address] [place] [phone] PCP - General Family Medicine 01/18/22 Real Gomez MD [address] 3rd [place] [address] Cardiology 10/01/24 Chico Kebede, RN [address] [place] [address] Registered Nurse Family Medicine 02/03/25 02/03/25 Karla Mattson 04/03/25 04/04/25 Kalpesh Calles Orthotics TechnicianPlant Protection Guard 02/21/25 documented as of this encounter
--- OUTSIDE RECORDS SUMMARY | 2025-05-14 17:51 | XMS_ITS | Encounter Summary ---
Author Organization [employer] Address [address] 7t [place] [address] Care Team Providers Care Report Writer Name Role Phone Naheed Zaman Primary Care Provider [phone] Real Gomez MD Unavailable Chico Kebede RN Unavailable [phone] Karla Mattson Unavailable Reason for Visit * Reason Comments Med Refill Encounter Details Date Type Department Care Team (Late st Contact Info) Description 09/26/2024 Refill [facility] [address] [place] [address] Desirae Cowan MD 230 [place] [address] Social History Tobacco Use Types Packs/Day Years [...] Description 06/26/2025 3:00 PM EST Office Visit [facility] [address] [place] [address] Rut Branham MD [address] [place] [address] 08/08/2025 11:00 AM EDT Office Visit [facility] [address] [place] [address] Naheed Zaman ANP [address] [place] [address] documented as of this encounter Visit Diagnoses Not on filedocumented in this encounter Additional Health Concerns Assessment Noted Time PHQ-9 Depression Total Score: 25 024 8:12 AM EDT documented as of this encounter Care Teams Report Writer Relationship Specialty Start Date End Date Naheed Zaman ANP [address] [place] [address] PCP - General Family Medicine 01/18/22 Real Gomez MD [address] [place] [address] 3rd [place] [address] Cardiology 10/01/24 Chico Kebede, APRIL [address] [place] [address] Registered Nurse Family Medicine 02/03/25 02/03/25 Karla Mattson 04/03/25 04/04/25 Kalpesh Calles Credit Support SpecialistHooker Up 02/21/25 documented as of this encounter
--- OUTSIDE RECORDS SUMMARY | 2025-05-14 17:51 | XMS_ITS | Clinical Summary ---
Author Organization [address] [facility] Address [address] [place] [address] Phone Care Team Providers Care Patient Portal Representative Name Role Phone Naheed Zaman NP Primary Care Provider [phone] Allergies Active Allergy Reactions Criticality Noted Date [...] myelopathy or radiculopathy 04/26/2017 Overview (04/17/2024): Saw [facility] Rheumatology BETSY (obstructive sleep apnea) 04/26/2017 Overview (04/17/2024): Polysomnography 08/05/2009, [facility] :On cpap 14 cm H2O 10/23/2017 Home Sleep Study insufficient data. 08/2018 - Pulm ordered split night study. Diabetes mellitus type 2 with neurological manif estations 04/26/2017 CTS (carpal tunnel syndrome) 04/26/2017 Immunizations [...] (diabetes mellitus), type 2 with renal complications (CMS/HCC V24, CMS/HCC V28) 04/30/2017 DX:DM (diabetes mellitus), t ype 2 with renal complications (HCC) Proteinuria 04/30/2017 DX:Proteinuria Diabetes mellitus type 2 wit h neurological manifestations (CMS/HCC V24, CMS/HCC V28) 04/26/2017 DX:Diabetes mellitus type 2 with neurological manifestations (HCC) Asthma 05/10/2017 DX:Asthma Elevated liver enzymes 05/10/2017 DX:Elevat ed liver enzymes; COMMENT: fatty liver Gout 05/10/2017 DX:Gout H. pylori infection 05/10/2017 DX:H. 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 DX:History of acute post-streptococcal glomerulonephritis; COMMENT: Hospitalized [facility] with anasarca/ KUNAL 2010, streptolysin titer 1060, kidney bx, Followed in past by Dr Zapata, NSAIDS not recommended HTN (hypertension) 05/10/2017 DX:HTN (hyper tension) Morbid obesity with BMI of 6 0.0-69.9, adult ([facility] V24, [facility] V28) 04/26/2017 DX:Morbid obesity wit h BMI of 60.0-69.9, adult ([facility]) BETSY (obstructive sleep apnea) 04/26/2017 DX :BETSY (obstructive sleep apnea); COMMENT: Polysomnography 08/05/2009, [facility] :On cpap 14 cm H2O Pulmonary hypertension ([facility] V24, [facility] V28) 05/10/2017 DX:Pulmonary hypertension (H CC); COMMENT: Mild, ECHO 10/21/10 [facility], EF 65-70% Otherwise normal altho suboptimal views, [...] egion without myelopathy or radiculopathy; COMMENT: Saw [facility] Rheumatology Family History Medical History Relation Name [...] * Urine Albumin Creatinine Ratio (02/27/2020) [facility]ologist [facility] Urine Albumin Creatinine Ratio Abstracted Result [facility] Provider HEALTH MAINTENANCE Final Result * Annual BMP Blood Test (02/27/2020) Pathologist [facility] Annual BMP Blood Test Abstracted Result [facility] Provider HEALTH MAINTENANCE Final Result * (ABNORMAL) Hemoglobin A1c (02/27/2020) [facility] Hemoglobin A1C 6.9(A) <=6.5 % Blood Venous blood specimen / Unknown Result [facility] Provider LAB BLOOD ORDERABLES Brunilda l Result * Lipid panel (02/27/2020) Pathologist [facility] LDL/HDL Ratio 3 0 - 4 Triglycerides 91 0 - 150 mg/dL Cholesterol 145 0 - 200 mg/dL HDL 58 >=40 mg/dL LDL Cholesterol 69 0 - 100 mg/dL Blood Venous blood specimen / Unknown Result [facility] Provider LAB BLOOD ORDERABLES Brunilda l Result * Hepatitis C Screening (06/22/2017) Pathologist [facility] Hepatitis C Screening Abstracted Result [facility] Mayra [place] HEALTH MAINTENANCE Final Result from Last 3 Months or Most Recently Relevant to Health Maintenance Insurance MEDICAID - [place] Care Teams Patient Portal Representative Relationship Specialty Start Date End Date Naheed Zaman NP [address] [address] PCP - General 02/21/24
--- OUTSIDE RECORDS SUMMARY | 2025-05-14 17:51 | XMS_ITS | Encounter Summary ---
Author Organization [facility] Address [address] [place] [address] 7t [place] [address] Care Team Providers Care [facility] Products Assembler Name Role Phone Naheed Zaman Primary Care Provider [phone] Real Gomez MD Unavailable Chico Kebede RN Unavailable [phone] Karla Mattson Unavailable Reason for Visit * Reason Comments Med Refill Encounter Details Date Type Department Care Team (Late Contact Info) Description 02/02/2023 Refill [facility] [address] [place] [address] Rut Branham MD [address] [place], [place] [phone] Uncomplicated opioid dependence (CMS/HCC) Social History Tobacco [...] Department Care Team (Late Contact Info) Description 06/26/2025 3:00 PM EST Office Visit [address] [address] Rut Branham MD 230 [place] [address] 08/08/2025 11:00 AM EDT Office Visit [address] [address] Naheed Zaman ANP 230 [place] [address] documented as of this encounter Visit Diagnoses Diagnosis Uncomplicated opioid dependence (CMS/HCC) (HCC) documented in this encounter Additional Health Concerns Assessment Noted Time PHQ-9 Depression Total Score: 6 11/19/19 23 3:29 PM EDT documented as of this encounter Care Teams Plastic Hospital Products Assembler Relationship Specialty Start Date End Date Naheed Zaman ANP 230 [place] [address] PCP - General Family Medicine 01/18/22 Real Gomez MD [address] [place] [address] [address] [place] [address] Cardiology 10/01/24 Chico Kebede, APRIL [address] [place] [address] Registered Nurse Family Medicine 02/03/25 02/03/25 Karla Mattson 04/03/25 04/04/25 Kalpesh Calles Occupational Therapist AideHot Mill Shearer 02/21/25 documented as of this encounter
--- OUTSIDE RECORDS SUMMARY | 2025-05-14 17:51 | XMS_ITS | Encounter Summary ---
Author Organization [employer] [facility] Address [address] [facility] 7t [place] [address] Care Team Providers Care Metal Engraver Name Role Phone Naheed Zaman Primary Care Provider [phone] Real Gomez MD Unavailable Chico Kebede RN Unavailable [phone] Karla Mattson Unavailable Encounter Details Date Type Department Care Team (Latest Contact Info) Description 12/29/2021 Abstract [facility] CON[facility]S Dental, Provider, DDS Social History [...] Description 06/26/2025 3:00 PM EST Office Visit [facility] [address] [place] [address] Rut Branham MD [address] [place] [address] 08/08/2025 11:00 AM EDT Office Visit [facility] [address] [place] [address] Naheed Zaman ANP [address] [place] [address] [phone] documented as of this encounter Visit Diagnoses Not on filedocumented in this encounter Care Teams Metal Engraver Relationship Specialty Start Date End Date Naheed Zaman ANP 230 [place] [address] PCP - General Family Medicine 01/18/22 Real Gomez MD [address] 3rd [place] [address] Cardiology 10/01/24 Chico Kebede, APRIL 505 [place] [address] Registered Nurse Family Medicine 02/03/25 02/03/25 Karla Mattson 04/03/25 04/04/25 Kalpesh Calles Dynamotor RepairerJointer Machine 02/21/25 documented as of this encounter
--- OUTSIDE RECORDS SUMMARY | 2025-05-14 17:52 | XMS_ITS | Encounter Summary ---
Author Organization [employer] Address [address] [facility] 7t [place] [address] Care Team Providers Care Samples And Repairs Preparer Name Role Phone Naheed Zaman Primary Care Provider [phone] Real Gomez MD Unavailable Chico Kebede RN Unavailable [phone] Karla Mattson Unavailable Reason for Visit * Reason Onset Date Comments Med Refill 11/20/2024 Encounter Details Date Type Department Care Team (Late st Contact Info) Description 11/20/2024 Refill [facility] 230 [place], [place] [phone] Rut Branham MD 230 [place], [place] [phone] Uncomplicated opioid dependence (CMS/HCC) Social History Tobacco [...] Description 06/26/2025 3:00 PM EST Office Visit [facility] [address] [place] [address] Rut Branham MD 230 [place] [address] 08/08/2025 11:00 AM EDT Office Visit [facility] [address] [place] [phone] Naheed Zaman ANP 230 [place] [address] documented as of this encounter Visit Diagnoses Diagnosis Uncomplicated opioid dependence (CMS/HCC) (HCC) documented in this encounter Additional Health Concerns Assessment Noted Time PHQ-9 Depression Total Score: 7 10/05/19 25 2:06 PM EDT documented as of this encounter Care Teams Samples And Repairs Preparer Relationship Specialty Start Date End Date Naheed Zaman ANP 230 [place] [address] PCP - General Family Medicine 01/18/22 Real Gomez MD [address] [facility] 3rd [place] [address] Cardiology 10/01/24 Chico Kebede, APRIL [address] [place] [address] Registered Nurse Family Medicine 02/03/25 02/03/25 Karla Mattson 04/03/25 04/04/25 Kalpesh Calles Air Duct MechanicCommuter Train Operator 02/21/25 documented as of this encounter
--- OUTSIDE RECORDS SUMMARY | 2025-05-14 17:52 | XMS_ITS | Clinical Summary ---
Author Organization [employer] Address [address] [facility] [address] [place] [address] Care Team Providers Care Military Police Officer Name Role Phone Sofia Mitchell Primary Care Provider [phone] Real Gomez MD Unavailable Allergies Active Allergy Reactions Criticality Noted Date Comments Shellfish Allergy Other 05/02/2022 Difficulty breathing Medications * This document contains information received from the source organization and may not represent a complete record from that organization. Alcohol Swabs (Alcohol Prep) 70 % pads USE FOUR TIMES DAILY WITH INSULIN 022 Active Blood Glucose Monitoring Suppl (FreeStyle [place] Lite) w/Device kit TEST BLOOD SUGAR FOUR TIMES DAILY Active Sure Comfort Pen [place] 31G X 5 MM misc USE FOUR TIMES DAILY WITH INSULIN Active TRUEplus Lancets 33G misc TEST BLOOD SUGAR FOUR TIMES DAILY Active Lidoderm 5 % patch APPLY 1 PATCH TOPICALLY DAILY LEAVE ON MOST PAINFUL AREA FOR UP TO 12 HRS 022 Active naloxone (Narcan) 4 mg/0.1 mL nasal spray Administer 0.1 mL into affected nostril(s). 022 Active EPINEPHrine (Epipen) 0.3 MG/0.3ML injection syringeIndicatio ns:Allergy to shellfish INJECT INTRAMUSCULARLY DIRECTED ON PACKAGE AND GO TO EMERGENCY ROOM 2 each 023 Active Blood Pressure Monitor kitIndications:P ulmonary hypertension (CMS/HCC) (HCC) 1 kit in the morning. 1 kit 024 Active olmesartan-hydro CHLOROthiazide (Benicar HCT) 40-12.5 MG tabletIndication s:Essential hypertension Take 1 tablet by mouth Once per day. 90 tablet 3 04/09/20 25 1:02 PM EST 025 2025 Active insulin glargine (Lantus SoloStar) 100 UNIT/ML penIndications:T ype 2 diabetes mellitus with hyperlipidemia (HCC) INJECT 40 UNITS SUBCUTANEOUSLY AT BEDTIME 15 mL 3 05/06/20 25 8:28 AM EST Active betamethasone valerate (Valisone) 0.1 % creamIndications :Venous stasis dermatitis of both lower extremities APPLY TOPICALLY TWICE DAILY IN THE MORNING AND AT BEDTIME NEEDED DRY SKIN 45 g 2 025 Active meloxicam (Mobic) 15 MG tabletIndication s:Chronic low back pain without sciatica, unspecified back pain laterality TAKE 1 TABLET BY MOUTH EVERY DAY NEEDED FOR PAIN 30 tablet 3 05/09/20 25 1:53 PM EST Active tamsulosin (Flomax) 0.4 MG 24 hr capsuleIndicatio ns:Urinary retention TAKE 1 CAPSULE BY MOUTH DAILY 30 MINUTES AFTER THE SAME MEAL EVERY DAY 60 capsule 3 Active FLUoxetine (PROzac) 20 MG capsuleIndicatio ns:Severe episode of recurrent major depressive disorder, without psychotic features (CMS/HCC) ([facility]) TAKE 3 CAPSULES BY MOUTH EVERY MORNING 90 capsule 1 04/09/20 25 1:02 PM EST 025 Active D3 Super Strength 50 MCG (1999 UT) capsule Take 1 capsule by mouth Once per day. Active cyclobenzaprine (Flexeril) 10 MG tablet take 1 tablet by mouth three times a day as needed for muscle spasm Active phentermine 15 MG capsule Take 15 mg by mouth before breakfast. Active pyridoxine (Vitamin B-6) 250 MG tablet [...] mouth at bedtime. 90 tablet 3 Active esomeprazole (NexIUM) [address] capsuleIndicatio ns:Gastroesophag eal reflux disease, unspecified whether esophagitis present Take 1 capsule (40 mg) by mouth before breakfast. Do not open capsule. 90 capsule 1 05/09/20 1:53 PM EST Active Suboxone 8-2 MG SL filmIndications: Uncomplicated opioid dependence (CMS/HCC) (HCC) Place 3 Film under the tongue Once per day. 84 Film 2 05/01/20 2:08 PM EST 2025 Active melatonin 3 MG tabletIndication s:Insomnia, unspecified type Take 1 tablet 30-60 min before bedtime as needed for sleep 30 tablet 2 05/09/20 1:53 PM EST Active Magnesium Oxide -Mg Supplement 400 MG capsuleIndicatio ns:Hypomagnesemi a,Nocturnal leg cramps 1 capsule at bedtime for cramps, stop if loose stool occurs 90 capsule 3 Active Ventolin HFA 108 (90 Base) MCG/ACT inhaler INHALE 2 PUFFS BY MOUTH EVERY 4 TO 6 HOURS NEEDED FOR WHEEZING OR SHORTNESS OF BREATH Active Arnuity Ellipta 100 MCG/ACT inhaler INHALE 1 PUFF BY MOUTH EVERY DAY AT THE SAME TIME RINSE MOUTH AFTER USING Active ARIPiprazole (Abilify) 20 MG tablet Take 1 tablet by mouth in the morning. Active pregabalin (Lyrica) 100 MG capsule TAKE 1 TABLET BY MOUTH TWICE DAILY IN THE MORNING AND IN THE EVENING Active Continuous Glucose Noise Tester (FreeStyle Casey 3 [place]) deviceIndication s:Type 2 diabetes mellitus with hyperlipidemia (HCC),Diabetic nephropathy with proteinuria (HCC) 1 each Once per day. Use as directed for CGM 1 each Active Continuous Glucose Sensor (FreeStyle Casey 3 Plus Sensor) miscIndications: Type 2 diabetes mellitus with hyperlipidemia (HCC),Diabetic nephropathy with proteinuria (HCC) 1 each every 15 days. Apply 1 every 15 days as directed for CGM 2 each Active glucose blood (FreeStyle Precision Lefty Test) test stripIndications :Type 2 diabetes mellitus with hyperlipidemia (HCC),Diabetic nephropathy with proteinuria (HCC) Use to test blood sugar 3 times daily in case of CGM failure or extremes of BG 100 each 2025 Active dextran 70-hypromellose (artificial tears) 0.1-0.3 % ophthalmic solutionIndicati ons:Pain of both eyes Administer 1 drop into both eyes if needed in the morning, at noon, and at bedtime for dry eyes. 30 mL 025 2025 Active FREESTYLE LITE test strip TEST BLOOD SUGAR FOUR TIMES DAILY 2024 Discontinued glucose blood (FREESTYLE LITE) test strip check fingerstick 4 times a day 2024 Discontinued chlorhexidine (Peridex) 0.12 % solution Swish 15 mL morning and night for 1 minute. Spit, do not swallow. Do not eat or drink for 30 minutes following use. 473 mL 024 2024 Discontinued( Med list cleanup (will not trigger notification to Pharmacy)) Continuous Glucose Noise Tester (FreeStyle Casey 2 [place]) deviceIndication s:Diabetes mellitus with albuminuria (HCC) Scan sensor every 8 hours 1 each 024 2024 Discontinued Continuous Glucose Sensor (FreeStyle Casey 2 Sensor) miscIndications: Diabetes mellitus with albuminuria (HCC) Apply 1 sensor every 14 days 2 each 024 2024 Discontinued( Alternate therapy) pregabalin (Lyrica) 50 MG capsule take 1 capsule by mouth everyday at bedtime 2024 Discontinued( Med list cleanup (will not trigger notification to Pharmacy)) ARIPiprazole (Abilify) 10 MG tabletIndication s:Severe episode of recurrent major depressive disorder, without psychotic features (CMS/HCC) (HCC) Take 1.5 tablets (15 mg) by mouth Once per day. 45 tablet 025 2024 Discontinued( Med list cleanup (will not trigger notification to Pharmacy)) Active [...] Health Integration Plan Internal Follow up with [facility] Patient Self Plan Patient [facility], Comply with [...] Health Integration Plan Internal Follow up with [facility] Patient Self Plan Patient to reach [...] Health Integration Plan Internal Follow up with [facility] Patient Self Plan Patient to utilize skills provided in intervention , Patient to reach out to [facility] team as needed, and Patient to [...] Health Integration Plan Internal Follow up with [facility] External OP psychiatry Referral Patient Self [...] explained that she tried referring pt to [facility] and other centers and pt;s can not [...] myelopathy or radiculopathy 04/26/2017 Overview (11/22/2024): Saw [facility] Rheumatology, now on humira which has been [...] sleep apnea) 05/18/2015 Overview (11/22/2024): Polysomnography 08/05/2009, [facility]: On cpap 14 cm H2O 10/23/2017 Home Sleep Study insufficient data. 08/2018 - Pul ordered split night study. Titration was done 03/2023 and titrated to start cpap at [id number]. HST c/w AHI 124/hr and oxygen fritz to 70%, he was titrated Follows w/ [facility] Neurology and Sleep, Leyla De La Cruz PA Proteinuria 05/18/2015 Encounters * This document contains information received from the source organization and may not represent a complete record from that organization. Date Type Department Care Team Description 05/13/2025 2:30 PM EST Office Visit [facility] [address] [place] [address] Kaitlyn Burk, KVNG 05/13/2025 Travel 05/09/2025 2:30 PM EST Office Visit [facility] MEDIC[facility] [address] [place] [address] Sofia Mitchell ANP Type 2 diabetes mellitus with hyperlipidemia (CMS/HCC) (Primary Dx); Severe episode of recurrent major depressive disorder, without psychotic features (CMS/HCC) (HCC); BETSY (obstructive sleep apnea); Bilateral lower extremity edema; Healthcare maintenance; Pain of both eyes; Stage 3 chronic kidney disease, unspecified whether stage 3a or 3b CKD (CMS/HCC) (HCC) 05/09/2025 Telephone [facility] [address] [place] [phone] Arlette Hill, silk screen frame assembler 05/09/2025 Telephone [facility] [place] [address] Sofia Mitchell ANP Appointment 05/09/2025 Travel 05/08/2025 Orders Only [facility] [place] [address] Sofia Mitchell ANP Type 2 diabetes mellitus with hyperlipidemia (CMS/HCC) (Primary Dx); Diabetic nephropathy with proteinuria (HCC) 05/07/2025 Telephone [facility] [place] [address] Sofia Mitchell ANP chart prep 05/06/2025 Orders Only GENERIC EXTERNAL DATA DEPARTMENT Provider, Generic External Data 05/06/2025 Results Follow-Up [facility] [place] [address] Sofia Mitchell ANP Basic Metabolic Panel 04/29/2025 1:00 PM EST Telemedicine [facility] [place] [address] Billy Brooke, OzzieD Diabetic nephropathy with proteinuria (HCC) (Primary Dx); Type 2 diabetes mellitus with hyperlipidemia (HCC) 04/29/2025 Patient Outreach [address] [address] Sofia Mitchell ANP Pre-visit Planning (SDOH screening was completed on 10/04/2024) 04/22/2025 Results Follow-Up [address] [address] Sofia Mitchell ANP Basic Metabolic Panel 04/18/[address] [address] Sofia Mitchell ANP Paperwork/Forms 04/11/[address] [address] Sofia Mitchell ANP May04/07/2025 Results Follow-Up [address] [address] Sofia Mitchell ANP CBC auto differential 04/04/2025 2:30 PM EST Office Visit [address] [address] Sofia Mitchell ANP Hypomagnesemia (Primary Dx); KUNAL [...] adult, unspecified obesity type (HCC) 04/04/[address] [address] Sofia Mitchell ANP Durable Medical Equipment 04/04/2025 Patient Outreach [facility] [address] [place], [place] [phone] Sofia Mitchell ANP Care Coordination (Communication to pts Assigned CP Coordinator ) 04/04/2025 Travel 04/03/2025 3:00 PM EST Office Visit [address] [address] Rut Branham MD Uncomplicated opioid dependence (CMS/HCC) (HCC) (Primary Dx) 04/03/[address] [address] Sofia Mitchell ANP chart prep 04/03/2025 Travel 04/03/2025 Patient Outreach [facility] [address] [place] [address] Sofia Mitchell ANP Care Coordination (CP Care Coordination Chart Review) 04/03/[address] [address] Sofia Mitchell ANP Nurse Triage 04/03/2025 Patient Outreach [facility] [address], [place] [phone] Sofia Mitchell ANP Care Coordination ([facility] ED follow up) 04/03/2025 Patient Outreach [address] [address] Sofia Mitchell ANP 04/02/2025 Results Follow-Up [address] [address] Sofia Mitchell ANP CBC auto differential, Comprehensive Metabolic Panel, Magnesium, Additional followed-up results: 2 04/02/2025 Orders Only GENERIC EXTERNAL DATA DEPARTMENT Provider, Generic External Data 04/01/[address] [address] Sofia Mitchell ANP Durable Medical Equipment 03/31/[address] [address] Sofia Mitchell ANP may03/27/2025 9:00 AM EDT Office Visit [address] [address] Sofia Mitchell ANP Severe episode of recurrent [...] lower extremities; Neck pain 03/27/2025 Orders Only [address] [place] [address] Rut Branham MD HTN (hypertension) (Primary Dx) 03/27/2025 Travel 03/26/2025 Refill [facility] [address] [place] [address] Rut Branham MD Uncomplicated opioid dependence (CMS/HCC) (HCC) 03/25/2025 1:30 PM EDT Telemedicine [facility] [address] [place] [address] Billy Brooke, OzzieD Diabetic nephropathy with proteinuria (HCC) (Primary Dx) 03/25/2025 Refill [facility] [address] [place] [address] Sofia Mitchell ANP Type 2 diabetes mellitus with hyperlipidemia (HCC); Severe episode of recurrent major depressive disorder, without psychotic features (CMS/HCC) (HCC); Gastroesophageal reflux disease, unspecified whether esophagitis present 03/25/2025 Telephone [facility] [address] [place] [address] Sofia Mitchell ANP chart prep 03/13/2025 Refill [facility] [address] [place] [address] Sofia Mitchell ANP Chronic low back pain without sciatica, unspecified back pain laterality; Urinary retention 02/21/2025 Telephone [facility] [address] [place] [address] Sofia Mitchell ANP Care Coordination (ICP Care Plan) from Last 3 Months Immunizations Immunization Administration [...] Mass Index 68.56 05/09/2025 2:59 PM EST Plan of Treatment Upcoming Encounters Date Type Department Care Team (Late st Contact Info) Description 06/26/2025 3:00 PM EST Office Visit [facility] [address] [place] [address] Rut Branham MD [address] [place] [address] 08/08/2025 11:00 AM EDT Office Visit [facility] [address] [place] [address] Sofia Mitchell ANP [address] [place] [address] Health Maintenance Due Date Last Done Comments Dental Oral Exam 1981 Dental Prophylaxis 1981 Dental X-Ray: Bitewings 1981 Family Planning (PISQ) 1996 HPV Vaccines (1 - Male 3-dose series) 1996 Hepatitis A Vaccines (1 of 2 - Risk 2-dose series) 2000 Lipid Panel 04/24/2025 04/24/2024, 06/14/2023 Hepatitis B Vaccines (3 of 3 - 19+ 3-dose series) 05/22/2025 03/27/2025, 10/17/2023 Diabetes: Hemoglobin A1C 08/07/2025 025, 01/09/2025, 10/08/2024, Additional history exists Depression Screening 10/04/2025 10/04/2024, 10/05/19 25 SDOH Screening 10/04/2025 10/04/2024 Alcohol/Substance Use Screening 10/08/2025 10/08/2024 Disability Screening 10/08/2025 10/08/2024 Influenza Vaccine (#1) 2025 2, 02/27/2012, 01/27/2011, Additional history exists Postponed from 01/27/2025 (Patient Refused) Diabetes: Foot Exam 05/09/2026 05/09/2025, 05/09/2025, 05/09/2025 Tobacco Screening 05/13/2026 05/13/2025 COVID-19 Vaccine ( season) 2026 12/29/2020, 12/10/2020 Postponed from 01/27/2025 (Patient Refused) Eye Exam 06/27/2026 06/27/2024, 05/31, 06/27/2024, Additional history exists Dental X-Ray: Full Mouth 08/09/2027 08/07/2024 Zoster Vaccines (1 of 2) 11/14/2031 DTaP/Tdap/Td [...] patients manage their type 2 diabetes No Araclei Hunter MA Patient has chronic kidney disease [...] Care Plan Weekly blood pressure task No Sofia Mitchell ANP Weekly blood pressure task Care Plan Weekly blood pressure task No Sofia Mitchell ANP Patient has chronic kidney disease Care Plan Patient has chronic kidney disease No Sofia Mitchell ANP Patient has chronic kidney disease Care Plan Patient has chronic kidney disease No Sofia Mitchell ANP Weekly blood pressure task Care Plan Weekly blood pressure task No Sofia Mitchell ANP Weekly blood pressure task Care Plan Weekly blood pressure task No Sofia Mitchell ANP Patient has chronic kidney disease Care Plan Patient has chronic kidney disease No Sofia Mitchell ANP Patient has chronic kidney disease Care Plan Patient has chronic kidney disease No Sofia Mitchell ANP Weekly blood pressure task Care Plan [...] Care Plan Weekly blood pressure task No Sofia Mitchell ANP Weekly blood pressure task Care Plan Weekly blood pressure task No Sofia Mitchell ANP Patient has chronic kidney disease Care Plan Patient has chronic kidney disease No Sofia Mitchell ANP Patient has chronic kidney disease Care Plan Patient has chronic kidney disease No Sofia Mitchell ANP Weekly blood pressure task Care Plan [...] Plan Weekly blood pressure task No Arlette Hill, APRIL Patient has chronic kidney disease Care Plan Patient has chronic kidney disease No Arlette Hill, APRIL Patient has chronic kidney disease Care Plan Patient has chronic kidney disease No Arlette Hill, APRIL Weekly blood pressure task Care Plan Weekly blood pressure task No Kaitlyn Burk OD Weekly blood pressure task Care Plan Weekly blood pressure task No Kaitlyn Burk OD Patient has chronic kidney disease Care Plan Patient has chronic kidney disease No Tarka, Kaitlyn, OD Patient has chronic kidney disease Care Plan Patient has chronic kidney disease No Kaitlyn Burk KVNG Procedures Procedure Name Priority Date/Time Associated Diagnosis Comments POCT GLYCATED HEMOGLOBIN, TOTAL Routine 05/09/2025 3:01 PM EST Type 2 diabetes mellitus with hyperlipidemia (CMS/HCC) POCT GLUCOSE Routine 05/09/2025 3:00 PM EST Type 2 diabetes mellitus with hyperlipidemia (CMS/HCC) RESPIRATORY ALLERGY PROFILE REGION I Routine 05/06/2025 8:09 AM EST IMMUNOGLOBULIN E Routine 05/06/2025 8:09 AM EST BASIC METABOLIC PANEL Routine 05/06/2025 8:09 AM EST Diabetic nephropathy with proteinuria (HCC) CBC WITH AUTO DIFFERENTIAL Routine 04/07/2025 9:11 [...] AUTO DIFFERENTIAL Routine 04/02/2025 9:29 AM EST HEPATITIS C AB W/REFL TO HCV RNA, [...] to Health Maintenance Results * (ABNORMAL) POCT Hgb A1c (05/09/2025 3:01 PM EST) Pathologist [facility] Hemoglobin A1C 7.0(A) 4.0 - 5.7 % QC Media Lot # [id number] Lot# Expiration Date Blood 05/09/2025 3:01 PM EST Sofia Mitchell [facility] POINT OF CARE TEST ENTER/EDIT OR DERABLES Final Result * POCT Glucose (05/09/2025 3:00 PM EST) Pathologist [facility] Glucose Blood, POC 177 60 - 200 mg/dL QC Media Lot # [id number] Lot# Expiration Date [address] Blood Capillary blood specimen / Unknown 05/09/2025 3:00 PM EST [facility] Mitchell [facility] POINT OF CARE TEST ENTER/EDIT OR DERABLES Final Result * (ABNORMAL) Respiratory Allergy Profile Region I (05/06/2025 8:09 AM EST) Pathologist [facility] Mouse Urine Proteins (E72) IgE 4.73(A) kU/L [facility] Class 3 [facility] Cockroach (I6) IgE 13.60(A) kU/L [facility] Class 3 [facility] Dermatophagoides farinae (D2) IgE 19.50(A) kU/L [facility] Class 4 [facility] Cat Dander (E1) IgE 0.35(A) kU/L [facility] Class 1 [facility] Comment:THIS TEST WAS PERFOR MED AT:[place] [id number] CESPEDES MD Dog Dander (E5) IgE 4.81(A) kU/L [facility] Class 3 [facility] Comment:THIS TEST WAS PERFOR MED AT:[facility] [place] [id number] CESPEDES MD [place] (G6) IgE 4.76(A) kU/L [facility] Class 3 [facility] Cladosporium herbarum (M2) IgE <0.10 kU/L [facility] Class 0 [facility] Aspergillus Fumigatis (M3) IgE 0.19(A) kU/L [facility] Class 0/1 [facility] Alternaria alternata (M6) IgE <0.10 kU/L [facility] Class 0 [facility] Comment:THIS TEST WAS PERFOR MED AT:[facility] [address] [phone] CESPEDES MD [place] (t6) IgE 1.46(A) kU/L [facility] Class 2 [facility] [place] (T7) IgE 0.31(A) kU/L [facility] Class 0/1 [facility] [place] Tree (T10) IgE <0.10 kU/L [facility] Class 0 [facility] [place] (T11) IgE <0.10 kU/L [facility] Class 0 [facility] [place] (T14) IgE 0.12(A) kU/L [facility] Class 0/1 [facility] [place] (t15) IgE 0.19(A) kU/L [facility] Class 0/1 [facility] [place] (T70) IgE <0.10 kU/L [facility] Class 0 [facility] Common Ragweed (Short) (W1) IgE 2.92(A) kU/L [facility] Class 2 [facility] Mugwort (w6) IgE 0.40(A) kU/L [facility] Class 1 [facility] Dermatophagoides pteronyssinus (D1) IgE 16.60(A) kU/L [facility] Class 3 [facility] [place] Grass (g2) IgE 0.92(A) kU/L [facility] Class 2 [facility] Penicillium Notatum (M1) IgE 0.10(A) kU/L [facility] Class 0/1 [facility] Birch (T3) IgE 1.03(A) kU/L [facility] Class 2 [facility] Elm (t8) IgE 0.26(A) kU/L [facility] Class 0/1 [facility] Maple ([place]rif[place]) (T1) IgE 0.57(A) kU/L [facility] Class 1 [facility] Rough Pigweed (W14) IgE <0.10 kU/L [facility] Class 0 [facility] [place] (W18) IgE 0.13(A) kU/L [facility] Class 0/1 [facility] Allergen Comment See Below [facility] Comment: Specific Level of AllergenIGE Class kU/L Specific IGE Antibody ----- --------- 0 <0.10 Absent/Undetectable 0/1 0.10-0.34 Very Low Level 1 0.35-0.69 Low Level 2 0.70-3.49 Moderate Level 3 3.50-17.4 High Level 4 17.5-49.9 Very High Level 5 50-100 Very High Level 6 >100 Very High LevelThe clinical relevance of allergen results of0.10-0.34 kU/L are undetermined and intended forspecialist use.Allergens denoted with a include results usingone or more analyte specific reagents. In thosecases, the test was developed and its analyticalperformance characteristics have been determined by[employer]. It has not been cleared or approvedby the U.S. Food and Drug Administration. This assayhas been validated pursuant to the CLIA regulationsand is used for clinical purposes.THIS TEST WAS PERFORMED AT:[employer] [address] [id number] CESPEDES MD 05/06/2025 8:09 AM EST 05/06/2025 10:58 AM EST Generic External Data Provider LAB BLOOD ORDERAB LES Final Result Performing Organization Address [facility]/ZIP Co de Phone Number [facility] [address] [place] [phone] * (ABNORMAL) Immunoglobulin E (05/06/2025 8:09 AM EST) Immunoglobulin E 811(A) <QO=775 kU/L [facility] 05/06/2025 8:09 AM EST 05/06/2025 10:58 AM EST [facility] External Data Provider LAB BLOOD ORDERAB LES Final Result Performing Organization Address [facility]/RUST de Phone Number [facility] [address] [place] [phone] * (ABNORMAL) Basic Metabolic Panel (05/06/2025 8:09 AM EST) Only the most recent of2 resultswithin the time period is included. Sodium 143 135 - 145 mmol/L [facility] Potassium 4.2 3.3 - 5.1 mmol/L [facility] Chloride 106 96 - 108 mmol/L [facility] Carbon Dioxide 31(H) 22 - 29 mmol/L [facility] Anion Gap 10(L) 12 - 20 [facility] Urea Nitrogen (BUN) 27(H) 9 - 16 mg/dL [facility] Creatinine, Serum 1.42(H) 0.5 - 1.4 mg/dL [facility] Estimated Glomerular Filt Rate 54 [facility] Comment:Chronic Kidney Disea se: Estimated GFR < 60 mL/min/1.85n0Gavvka Kidney Disease: Estimated GFR < 15 mL/min/1.73m2 Glucose 135(H) 60 - 115 mg/dL [facility] Calcium 9.0 8.4 - 10.2 mg/dL [facility] Blood Venous blood specimen / Unknown 05/06/2025 8:09 AM EST 05/06/2025 10:58 AM EST [facility] LAB BLOOD ORDERABLES Final Resul t [facility] [address] [place] [address] [phone] * (ABNORMAL) CBC auto differential (04/07/2025 9:11 AM EST) Only the most recent of2 resultswithin the time period is included. White Blood Count 5.8 4.8 - 10.8 X10*3/uL [facility] Red Blood Count 4.31(L) 4.60 - 5.80 X10*6/uL [facility] Hemoglobin 12.3(L) 14.0 - 18.0 g/dl [facility] Hematocrit 37.6(L) 42.0 - 52.0 % [facility] Mean Corpuscular Volume 87.2 80.0 - 98.0 fL [facility] Mean Corpuscular Hemoglobin 28.5 27.0 - 33.0 pg [facility] Mean Corpuscular HGB Conc 32.7 31.0 - 36.0 g/dl [facility] Red Cell Distribution Width 12.4 11.0 - 16.0 % [facility] Platelet Count 119(L) 160 - 400 X10*3/uL [facility] Mean Platelet Volume 12.6(H) 9.4 - 12.4 fL [facility] Neutrophils Percent Auto 55.1 45 - 73 % [facility] Imm Gran Pct Auto 0.3 0.0 - 0.4 % [facility] Lymphocytes Percent Auto 32.7 20 - 40 % [facility] Monocytes Percent Auto 7.7 2 - 11 % [facility] Eosinophils Percent Auto 3.9 0 - 4 % [facility] Basophils Percent Auto 0.3 0 - 2 % [facility] NRBC Pct Auto 0.0 0.0 - 0.2 /100WBC [facility] Neutrophils Absolute Auto 3.2 2.0 - 8.3 x10*3/uL [facility] Imm Gran Abs Auto 0.02 0.00 - 0.03 X10*3/uL [facility] Lymphocytes Absolute Auto 1.9 1.2 - 4.9 X10*3/uL [facility] Monocytes Absolute Auto 0.5 0.1 - 1.2 X10*3/uL [facility] Eosinophils Absolute Auto 0.2 0.0 - 0.4 X10*3/uL [facility] Basophils Absolute Auto 0.0 0.0 - 0.2 X10*3/uL [facility] NRBC Abs Auto 0.000 0.0 - 0.012 X10*3/uL [facility] Blood Venous blood specimen / Unknown 04/07/2025 9:11 AM EST 04/07/2025 11:22 AM EST Sofia Mitchell ANP LAB BLOOD ORDERABLES Final Resul t [facility] [address] [place] [phone] * Magnesium (04/07/2025 9:11 AM EST) Only the most recent of2 resultswithin the time period is included. Magnesium 1.6 1.6 - 2.6 mg/dL [facility] Blood Venous blood specimen / Unknown 04/07/2025 9:11 AM EST 04/07/2025 11:22 AM EST Sofia RAHMAN LAB BLOOD ORDERABLES Final Resul t [facility] [address] [place] [phone] * (ABNORMAL) POCT RAMSES-14 Urine Drug [...] AM EST Narrative 04/02/2025 9:42 AM EST [address] [address] XRay Report Signed Patient: Ross Navarrete MR#: [id number] : 1980 Acct:[id number] Age/Sex: 44 / M ADM Date: 04/02/25 Loc: HO.ED Attending Dr: Ordering Physician: Judi Butler Date of Service: 04/02/25 Procedure(s): XR chest 2V Accession Number(s): [id number] cc: Judi Butler; SOFIA MITCHELL NP Reason [...] in OV> 04/02/25937 DD/ 9 TD/TT: 04/02/25936 Machine Baster: Procedure Note Donotuseinterpreter, Image - 04/02/[address] [address] XRay Report Signed Patient: Ross Navarrete LMR#: [id number] : 1980Acct:[id number] Age/Sex: 44 / MADM Date: 04/02/25 Loc: .ED Attending Dr: Ordering Physician: Judi Butler Date of Service: 04/02/25 Procedure(s): XR chest 2V Accession Number(s): [id number] cc: Judi Butler; SOFIA MITCHELL NP Reason [...] MDin OV> 04/02/25937 DD/ 9 TD/TT: 04/02/25936 Machine Baster: [facility] External Provider IMG XR PROCEDURES Final Result * High Sensitivity Troponin I (04/02/2025 9:29 AM EST) Pathologist [facility] TROPONIN I HIGH SENSITIVITY <2.7 <3.5 - 35.0 ng/L [facility] Comment:The Jordan high sens itivity Troponin-I results should beused in conjunction with other diagnostic information suchas ECG, clinical observations and information, and patientsymptoms to aid in the diagnosis of PR. 04/02/2025 9:29 AM EST 04/02/2025 9:31 AM EST Generic External Data Provider LAB BLOOD ORDERAB LES Final Result Performing Organization Address [facility] Co de Phone Number [facility] [address] [place] [phone] * NT-proBNP (04/02/2025 9:29 AM EST) Pathologist [facility] NT-proBNP 57.3 <300 pg/mL [facility] Comment:Reference Range:Age Group (years) NT-proBNP (pg/ml) InterpretationAll <300 Negative: HF unlikelyFor patients presenting to the ED with clinical suspicion ofnew onset or worsening HF, see below:18 to <50 >299.9 to <450.0 Grayzone: [id number] to 75 >299.9 to <900.0 other causes of>75 >299.9 to <1800.0 NT-proBNP [id number] to <50 >449.9 Positive: HF [id number] >899.9>75 >1799.9Note: Elevated NT-proBNP levels should be interpreted inthe context of other clinical information. 04/02/2025 9:29 AM EST 04/02/2025 9:31 AM EST Generic External Data Provider LAB BLOOD ORDERAB LES Final Result Performing Organization Address [facility]/ZIP Co de Phone Number [facility] [address] [place] [phone] * (ABNORMAL) Comprehensive Metabolic Panel (04/02/2025 9:29 AM EST) Sodium 140 135 - 145 mmol/L [facility] Potassium 4.2 3.3 - 5.1 mmol/L [facility] Chloride 105 96 - 108 mmol/L [facility] Carbon Dioxide 29 22 - 29 mmol/L [facility] Anion Gap 10(L) 12 - 20 [facility] Urea Nitrogen (BUN) 30(H) 9 - 16 mg/dL [facility] Creatinine, Serum 1.86(H) 0.5 - 1.4 mg/dL [facility] Creatinine Clr Calc Pharmacy 77.2 [facility] Comment:eGFR (calculated fro m the MDRD study equation) and eCrCl(calculated from the Cockcroft-Gault equation) are based ondifferent parameters and may not yield comparable results.If eCrCl result is absurd, please check patient'sheight/weight. Estimated Glomerular Filt Rate 40 [facility] Comment:Chronic Kidney Disea se: Estimated GFR < 60 mL/min/1.09v5Sglbkl Kidney Disease: Estimated GFR < 15 mL/min/1.73m2 Glucose 124(H) 60 - 115 mg/dL [facility] Calcium 9.4 8.4 - 10.2 mg/dL [facility] Bilirubin, Total 0.5 0.0 - 1.0 mg/dL [facility] Aspartate Amino Transferase 28 5 - 37 U/L [facility] Alanine Aminotransferase 31 0 - 40 U/L [facility] Total Protein 7.4 6.5 - 8.0 g/dL [facility] Albumin Level 3.9 3.5 - 5.0 g/dL [facility] Alkaline Phosphatase 65 39 - 117 U/L [facility] 04/02/2025 9:29 AM EST 04/02/2025 9:31 AM EST us Generic External Data Provider LAB BLOOD ORDERAB LES Final Result [facility] [address] [place] [phone] * Hepatitis C Antibody with Reflex to HCV, RNA, Quantitative, Real-Time PCR (12/12/2024 1:48 PM EDT) Hepatitis C Antibody Nonreactive Nonreactive [facility] Comment:Antibodies to HCV no t detected; does not exclude early acuteHCV infection. Blood Venous blood specimen / Unknown 12/12/2024 1:48 PM EDT 12/12/2024 4:06 PM EDT Rut Branham MD LAB BLOOD ORDERABLES Final R esult [facility] [address] [place] [phone] * Lipid Panel, Standard (04/24/2024 11:23 AM EST) Triglycerides 132 <150 mg/dL [facility] Comment:Desirable Triglyceri de: less than 150 mg/dLBorderline High Triglyceride 150-199 mg/dLHigh Triglyceride: 200-499 mg/dLVery High Triglyceride: greater than or equal to 5OO mg/dL Cholesterol 165 <200 mg/dL [facility] Comment:Desirable Cholestero l: less than 200 mg/dLBorderline High Cholesterol: 200-239 mg/dLHigh Cholesterol: greater than 239 mg/dL LDL Cholesterol Calculated 91 <100 mg/dL [facility] Comment:Desirable LDL: less than 100 mg/dLNear Optimal/Above Optimal LDL: 110- 129 mg/dLBorderline High LDL: 130-159 mg/dLHigh LDL: 160-189 mg/dLVery High LDL: greater than or equal to 190 mg/dL HDL Cholesterol 48 >40 mg/dL [facility] Comment:Desirable HDL: great er than 40 mg/dL Note: This HDL assay may give artificially low results in patients with liver disease. 04/24/2024 11:2 3 AM EST 04/24/2024 11:23 AM EST us Generic External Data Provider LAB BLOOD ORDERAB LES Final Result Performing Organization Address [facility]/ZIP Co de Phone Number [facility] [address] [place] [phone] * HIV-1/2 Antigen and Antibodies, Fourth Generation, with Reflexes (12/13/2023 11:48 AM EDT) HIV AB/AG Nonreactive Nonreactive [facility] Comment:HIV-1 p24 Ag and/or HIV-1/HIV-2 Ab not detected.A test result that is nonreactive does not exclude thepossibility of exposure to or infection with HIV-1 and/orHIV-2. Nonreactive results in this assay for individualswith prior exposure to HIV-1 and/or HIV-2 may be due toantigen and antibody levels that are below the limit ofdetection of this assay.The Souqalmal HIV Ag/Ab Combo assay result andsupplemental assay results should be interpreted inconjunction with the patient's clinical presentation,history and other laboratory results. If the results areinconsistent with clinical evidence, additional testing issuggested to confirm the result. Blood Venous blood specimen / Unknown 12/13/2023 11:48 AM EDT 12/13/2023 12:51 PM EDT us Sofia RAHMAN LAB BLOOD ORDERABLES Final Resul t Performing Organization Address City/[facility]/ZIP Co de Phone Number [facility] [address] [place] [phone] from Last 3 Months or Most [...] 05/13/2025 Patient has chronic kidney disease 05/13/2025 [place] AD[place] Care Teams Military Police Officer Relationship Specialty Start Date End Date Sofia Mitchell ANP [address] [place] [address] PCP - General Family Medicine 01/18/22 Real Gomez MD [address] [place] [address] 3rd [place] [address] Cardiology 10/01/24 Kalpesh Calles Project EngClient Server Programmer 02/21/25
--- OUTSIDE RECORDS SUMMARY | 2025-05-14 17:52 | XMS_ITS | Encounter Summary ---
Author Organization [employer] Address [address] [facility] [address] [place] [address] Care Team Providers Care Insurance Account Manager Name Role Phone Naheed Zaman Primary Care Provider [phone] Real Gomez MD Unavailable Chico Kebede RN Unavailable [phone] Karla Mattson Unavailable Reason for Visit * Reason Onset Date Comments callback requested 04/23/2024 Encounter Details Date Type Department Care Team ([facility] st Contact Info) Description 04/23/2024 Telephone [facility] [address] [place], [place] [phone] Naheed Zaman ANP [address] [place] [address] callback requested Social History Tobacco Use Types [...] returning call to Madie Olson Callback number [phone] documented in this encounter Plan of Treatment Upcoming Encounters Date Type Department Care Team (Late st Contact Info) Description 06/26/2025 3:00 PM EST Office Visit [facility] [address] [place] [phone] Rut Branham MD [address] [place] [address] 08/08/2025 11:00 AM EDT Office Visit [facility] [address] [place] [address] Naheed Zaman ANP [address] [place] [address] documented as of this encounter Visit Diagnoses Not on filedocumented in this encounter Additional Health Concerns Assessment Noted Time PHQ-9 Depression Total Score: 25 024 8:12 AM EDT documented as of this encounter Care Teams Insurance Account Manager Relationship Specialty Start Date End Date Naheed Zaman ANP [address] [place] [address] PCP - General Family Medicine 01/18/22 Real Gomez MD [address] [place] [address] 3rd [place] [address] Cardiology 10/01/24 Chico Kebede, APRIL [address] [place] [address] Registered Nurse Family Medicine 02/03/25 02/03/25 Karla Mattson 04/03/25 04/04/25 Kalpesh Calles Assistant Center DirectorHoop Maker Machine 02/21/25 documented as of this encounter
--- OUTSIDE RECORDS SUMMARY | 2025-05-14 17:54 | XMS_ITS | Encounter Summary ---
Author Organization [employer] Address [address] [facility] 7t [place] [address] Care Team Providers Care Manager Appointment Name Role Phone Naheed Zaman Primary Care Provider [phone] Real Gomez MD Unavailable Encounter Details Date Type Department Care Team (Latest Contact Info) Description 05/09/2025 Travel Social History Tobacco Use Types Packs/Day [...] 3:00 PM EST Office Visit [facility] [address] [place] [phone] Rut Branham MD [address] [place] [phone] 08/08/2025 11:00 AM EDT Office Visit [facility] [address] [place] [address] Naheed Zaman ANP 230 [place] [address] documented as of this encounter Goals Goal [...] Hill RN documented as of this encounter Visit Diagnoses [...] as of this encounter Care Teams Manager Appointment Relationship Specialty Start Date End Date Naheed Zaman ANP [address] [place] [phone] PCP - General Family Medicine 01/18/22 Real Gomez MD [address] [place] [address] 3[address] [place] [address] Cardiology 10/01/24 Kalpesh Calles Gas Pump AttendantCocoa Powder Mixer Operator 02/21/25 documented as of this encounter
--- OUTSIDE RECORDS SUMMARY | 2025-05-14 17:54 | XMS_ITS | Encounter Summary ---
Author Organization [employer] [facility] Address [address] [facility] 7t [place] [address] Care Team Providers Care Bank Boss Name Role Phone Naheed Zaman Primary Care Provider [phone] Real Gomez MD Unavailable Chico Kebede RN Unavailable [phone] Karla Mattson Unavailable Encounter Details Date Type Department Care Team ([facility] Contact Info) Description 07/28/2022 Abstract [facility] [address] [place] [address] Zay Schmidt DDS [address] [place] [address] Social History Tobacco Use Types Packs/Day Years [...] Upcoming Encounters Date Type Department Care Team ([facility] Contact Info) Description 06/26/2025 3:00 PM EST Office Visit [address] [address] Rut Branham MD 230 [place] [address] 08/08/2025 11:00 AM EDT Office Visit [address] [address] Naheed Zaman ANP [address] [place] [address] documented as of this encounter Visit Diagnoses Not on filedocumented in this encounter Care Teams Bank Boss Relationship Specialty Start Date End Date Naheed Zaman ANP 230 [place] [address] PCP - General Family Medicine 01/18/22 Real Gomez MD [address] [place] [address] 3rd [place] [address] Cardiology 10/01/24 Chico Kebede, APRIL [address] [place] [address] Registered Nurse Family Medicine 02/03/25 02/03/25 Karla Mattsno 04/03/25 04/04/25 Kalpesh Calles Physician Office Clin AsstHand Umbrella Tipper 02/21/25 documented as of this encounter
--- OUTSIDE RECORDS SUMMARY | 2025-05-14 17:54 | XMS_ITS | Encounter Summary ---
Author Organization [employer] Address [address] [facility] [facility] [address] [address] 7t [place] [address] Care Team Providers Care Production Worker Name Role Phone Naheed Zaman Primary Care Provider [phone] Real Gomez MD Unavailable Encounter Details Date Type Department Care Team (Latest Contact Info) Description 04/07/2025 Results Follow-[facility] [address] [place] [address] Naheed Zaman ANP 230 [place] [address] CBC auto differential Social History Tobacco Use [...] 06/26/2025 3:00 PM EST Office Visit [facility] [address] [place] [address] Rut Branham MD [address] [place] [address] 08/08/2025 11:00 AM EDT Office Visit [facility] [address] [place] [address] Naheed Zaman ANP [address] [place] [address] documented as of this encounter Visit Diagnoses Not on filedocumented in this encounter Additional Health Concerns Assessment Noted Time PHQ-9 Depression Total Score: 7 10/05/19 25 2:06 PM EDT documented as of this encounter Care Teams Production Worker Relationship Specialty Start Date End Date Naheed Zaman ANP [address] [place] [address] PCP - General Family Medicine 01/18/22 Real Gomez MD [address] [place] [address] 3rd [place] [address] Cardiology 10/01/24 Kalpesh Calles Center Human Resources ManagerGreenskeeper Supervisor 02/21/25 documented as of this encounter
--- OUTSIDE RECORDS SUMMARY | 2025-05-14 17:54 | XMS_ITS | Encounter Summary ---
Author Organization [employer] Address [address] [facility] 7t [place] [address] Care Team Providers Care Thermoforming Operator Name Role Phone Naheed Zaman Primary Care Provider [phone] Real Gomez MD Unavailable Encounter Details Date Type Department Care Team ([facility] Contact Info) Description 05/06/2025 Orders Only GENERIC EXTERNAL DATA DEPARTMENT [...] Description 06/26/2025 3:00 PM EST Office Visit [facility] [address] [place] [address] Rut Branham MD [address] [place] [address] 08/08/2025 11:00 AM EDT Office Visit [facility] [address] [place] [address] Naheed Zaman ANP 230 [place] [address] documented as of this encounter Goals Goal [...] Plan Patient has chronic kidney disease No Emreald Deshpande RN Weekly blood pressure task Care [...] has chronic kidney disease No Slime Abbott documented as of this encounter Procedures Procedure Name Priority Date/Time Associated Diagnosis Comments RESPIRATORY ALLERGY PROFILE REGION I Routine 05/06/2025 8:09 AM EST IMMUNOGLOBULIN E Routine 05/06/2025 8:09 AM EST documented in this encounter Results * (ABNORMAL) Respiratory Allergy Profile Region I (05/06/2025 8:09 AM EST) Mouse Urine Proteins (E72) IgE 4.73(A) kU/L [facility] Class 3 [facility] Cockroach (I6) IgE 13.60(A) kU/L [facility] Class 3 [facility] Dermatophagoides farinae (D2) IgE 19.50(A) kU/L [facility] Class 4 [facility] Cat Dander (E1) IgE 0.35(A) kU/L [facility] Class 1 [facility] Comment:THIS TEST WAS PERFOR MED AT:[facility] [address] [address]WTJEWALOK CESPEDES MD Dog Dander (E5) IgE 4.81(A) kU/L [facility] Class 3 [facility] Comment:THIS TEST WAS PERFOR MED AT:[place] [address]ALOK CESPEDES MD [place] (G6) IgE 4.76(A) kU/L [facility] Class 3 [facility] Cladosporium herbarum (M2) IgE <0.10 kU/L [facility] Class 0 [facility] Aspergillus Fumigatis (M3) IgE 0.19(A) kU/L [facility] Class 0/1 [facility] Alternaria alternata (M6) IgE <0.10 kU/L [facility] Class 0 [facility] Comment:THIS TEST WAS PERFOR MED AT:[facility] [address] [address]CHETIALOK CESPEDES MD [place] (t6) IgE 1.46(A) kU/L [facility] Class 2 [facility] [place] (T7) IgE 0.31(A) kU/L [facility] Class 0/1 [facility] [place] Tree (T10) IgE <0.10 kU/L [facility] Class 0 [facility] [place] (T11) IgE <0.10 kU/L [facility] Class 0 [facility] [place] (T14) IgE 0.12(A) kU/L [facility] Class 0/1 [facility] [place] (t15) IgE 0.19(A) kU/L [facility] Class 0/1 [facility] [place] (T70) IgE <0.10 kU/L [facility] Class 0 [facility] Common Ragweed (Short) (W1) IgE 2.92(A) kU/L [facility] Class 2 [facility] Mugwort (w6) IgE 0.40(A) kU/L [facility] Class 1 [facility] Dermatophagoides pteronyssinus (D1) IgE 16.60(A) kU/L [facility] Class 3 [facility] Berm[place] Grass (g2) IgE 0.92(A) kU/L [facility] Class 2 [facility] Penicillium Notatum (M1) IgE 0.10(A) kU/L [facility] Class 0/1 [facility] Birch (T3) IgE 1.03(A) kU/L [facility] Class 2 [facility] Elm (t8) IgE 0.26(A) kU/L [facility] Class 0/1 [facility] Maple ([place]) (T1) IgE 0.57(A) kU/L [facility] Class 1 [facility] Rough Pigweed (W14) IgE <0.10 kU/L [facility] Class 0 [facility] Sheep [place] (W18) IgE 0.13(A) kU/L [facility] Class 0/1 [facility] Allergen Comment See Below [facility] Comment: Specific Level of AllergenIGE [...] and its analyticalperformance characteristics have been determined by[employer]. It has not been cleared or approvedby the U.S. Food and Drug Administration. This assayhas been validated pursuant to the CLIA regulationsand is used for clinical purposes.THIS TEST WAS PERFORMED AT:[employer] [place] [id number] CESPEDES MD 05/06/2025 8:09 AM EST 05/06/2025 10:58 AM EST Generic External Data Provider LAB BLOOD ORDERAB LES Final Result Performing Organization Address [facility] Co de Phone Number [facility] [address] [place] [phone] * (ABNORMAL) Immunoglobulin E (05/06/2025 8:09 AM EST) Immunoglobulin E 811(A) <QZ=711 kU/L [facility] 05/06/2025 8:09 AM EST 05/06/2025 10:58 AM EST Generic External Data Provider LAB BLOOD ORDERAB LES Final Result Performing Organization Address [facility] de Phone Number [facility] [address] [place] [phone] documented in this encounter Visit Diagnoses [...] 04/29/2025 Patient has chronic kidney disease 04/29/2025 Assessment Noted Time PHQ-9 Depression Total Score: 7 10/05/19 2:06 PM EDT documented as of this encounter Care Teams Thermoforming Operator Relationship Specialty Start Date End Date Naheed Zaman ANP [address] [place] [address] PCP - General Family Medicine 01/18/22 Real Gomez MD [address] [place] [address] 3rd [place] [address] Cardiology 10/01/24 Kalpesh Calles Digital Media AssociateLogging Crew Supervisor 02/21/25 documented as of this encounter
--- OUTSIDE RECORDS SUMMARY | 2025-05-14 17:54 | XMS_ITS | Encounter Summary ---
Author Organization [employer] Address [address] [facility] [address] 7t [place] [address] Care Team Providers Care Program Director Scouting Name Role Phone Naheed Zaman Primary Care Provider [phone] Real Gomez MD Unavailable Chico Kebede RN Unavailable [phone] Karla Mattson Unavailable Reason for Visit * Reason Onset Date Comments [facility] 12/12/2023 Encounter Details Date Type Department Care Team (Late st Contact Info) Description 12/12/[address] [facility] ADULT D[facility] [address] [place], [place] [phone] Zay Schmidt DDS [address] [place] [address] [facility] Social History Tobacco Use Types Packs/Day [...] dental relief. Pain Shimon office phone number [phone] documented in this encounter Plan of Treatment Upcoming Encounters Date Type Department Care Team (Late st Contact Info) Description 06/26/2025 3:00 PM EST Office Visit [facility] [address] [place] [address] Rut Branham MD [address] [place] [address] 08/08/2025 11:00 AM EDT Office Visit [facility] [address] [place] [phone] Naheed Zaman ANP [address] [place] [address] documented as of this encounter Visit Diagnoses Not on filedocumented in this encounter Additional Health Concerns Assessment Noted Time PHQ-9 Depression Total Score: 23 06/21/2 024 3:25 PM EDT documented as of this encounter Care Teams Program Director Scouting Relationship Specialty Start Date End Date Naheed Zaman ANP [address] [place] [address] PCP - General Family Medicine 01/18/22 Real Gomez MD [address] 3rd [place] [address] Cardiology 10/01/24 Chico Kebede, APRIL [address] [place] [address] Registered Nurse Family Medicine 02/03/25 02/03/25 Karla Mattson 04/03/25 04/04/25 Kalpesh Calles Director Of CardiologySteeping Press Tender 02/21/25 documented as of this encounter
--- OUTSIDE RECORDS SUMMARY | 2025-05-14 17:54 | XMS_ITS | Encounter Summary ---
Author Organization [employer] Address [address] [facility] 7t [place] [address] Care Team Providers Care Distributor Operator Name Role Phone Naheed Zaman Primary Care Provider [phone] Real Gomez MD Unavailable Reason for Visit * Reason Onset Date Comments Appointment 05/09/2025 Encounter Details Date Type Department Care Team ([facility] st Contact Info) Description 05/09/2025 Telephone [facility] 230 [place] [address] Naheed Zaman ANP 230 [place] [address] Appointment Social History Tobacco Use Types Packs/Day Years [...] Telephone Encounter - Araceli Hunter MA - 05/09/2025 3:43 PM EST Called patient informed that PCP Naheed Zaman managed to find him an eye Dr appointment for Monday05/16/25 @ 9:30 pm, and to use the artificial tears drops 3 times a day until appointment. Patient agreed documented in this encounter Plan of Treatment Upcoming Encounters Date Type Department Care Team (Late st Contact Info) Description 06/26/2025 3:00 PM EST Office Visit [facility] [address] [place] [address] Rut Branham MD 230 [place] [address] 08/08/2025 11:00 AM EDT Office Visit [facility] [address] [place] [address] Naheed Zaman ANP 230 [place] [address] documented as of this encounter Goals Goal [...] Weekly blood pressure task No Zay Schmidt DDNatacha Weekly blood pressure task Care Plan Weekly [...] documented as of this encounter Care Teams Distributor Operator Relationship Specialty Start Date End Date Naheed Zaman ANP [address] [place] [address] PCP - General Family Medicine 01/18/22 Real Gomez MD [address] [place] [address] 3rd [place] [address] Cardiology 10/01/24 Kalpesh Calles Breaker Up Machine OperatorSalesperson Recreational Vehicles 02/21/25 documented as of this encounter
--- OUTSIDE RECORDS SUMMARY | 2025-05-14 17:54 | XMS_ITS | Encounter Summary ---
Author Organization [employer] Address [address] [facility] 7t [place] [address] Care Team Providers Care Private Sector Executive Name Role Phone Naheed Zaman Primary Care Provider [phone] Real Gomez MD Unavailable Encounter Details Date Type Department Care Team (Latest Contact Info) Description 05/13/2025 Travel Social History Tobacco Use Types Packs/Day [...] Description 06/26/2025 3:00 PM EST Office Visit [facility] [address] [place] [address] Rut Branham MD [address] [place] [address] 08/08/2025 11:00 AM EDT Office Visit [facility] [address] [place] [address] Naheed Zaman ANP 230 [place] [address] documented as of this encounter Goals Goal [...] Plan Patient has chronic kidney disease No Kailtyn Burk OD documented as of this encounter [...] documented as of this encounter Care Teams Private Sector Executive Relationship Specialty Start Date End Date Naheed Zaman ANP 230 [place] [address] PCP - General Family Medicine 01/18/22 Real Gomez MD [address] [place] [address] 3rd [place] [address] Cardiology 10/01/24 Kalpesh Calles Watcher Lookout TowerQuickbooks Bookkeeper 02/21/25 documented as of this encounter
--- OUTSIDE RECORDS SUMMARY | 2025-05-14 17:54 | XMS_ITS | Encounter Summary ---
Author Organization [employer] Address 75 [facility] 7t [place] [address] Care Team Providers Care Boiler Welder Name Role Phone Naheed Zaman Primary Care Provider [phone] Real Gomez MD Unavailable Chico Kebede RN Unavailable [phone] Karla Mattson Unavailable Reason for Visit * Reason Onset Date Comments Durable Medical Equipment 10/04/2022 Encounter Details Date Type Department Care Team (Late st Contact Info) Description 10/04/[address] [facility] 230 [place], [place] [phone] Naheed Zaman ANP 230 [place], [place] [phone] Durable Medical Equipment Social History Tobacco Use [...] for Compressions socks. Please contact pt at [phone] documented in this encounter Plan of Treatment Upcoming Encounters Date Type Department Care Team (Late st Contact Info) Description 06/26/2025 3:00 PM EST Office Visit [address] [address] Rut Branham MD 230 [place] [address] 08/08/2025 11:00 AM EDT Office Visit [address] [address] Naheed Zaman ANP 230 [place] [address] documented as of this encounter Visit Diagnoses Not on filedocumented in this encounter Care Teams Boiler Welder Relationship Specialty Start Date End Date Naheed Zaman ANP 230 [place] [address] PCP - General Family Medicine 01/18/22 Real Gomez MD [address] 3rd [place] [address] Cardiology 10/01/24 Chico Kebede, APRIL 505 [place] [address] Registered Nurse Family Medicine 02/03/25 02/03/25 Karla Mattson 04/03/25 04/04/25 Kalpesh Calles Search Engine Optimization StrategistBet Taker 02/21/25 documented as of this encounter
--- OUTSIDE RECORDS SUMMARY | 2025-05-14 17:54 | XMS_ITS | Encounter Summary ---
Author Organization [employer] Address [address] [facility] [address] 7t [place] [address] Care Team Providers Care Mobile Homes Repairer Name Role Phone Naheed Zaman Primary Care Provider [phone] Real Gomez MD Unavailable Reason for Visit * Reason Onset Date Comments Prior Authorization 05/09/2025 Encounter Details Date Type Department Care Team (Late st Contact Info) Description 05/09/2025 Telephone [facility] 230 [place] [address] Arlette Hill, RN 230 [place] [address] Prior Authorization Social History Tobacco Use Types Packs/Day Years [...] Telephone Encounter - Arlette Hill RN - 05/09/2025 4:40 PM EST PA packet generated and placed on PCP's desk. Pending signature and office note to be signed Please initiate PA for rodristyle libre3 plus (may not need though as he was on 2?) documented in this encounter Plan of Treatment Upcoming Encounters Date Type Department Care Team (Late st Contact Info) Description 06/26/2025 3:00 PM EST Office Visit [facility] [address] [place] [address] Rut Branham MD [address] [place] [address] 08/08/2025 11:00 AM EDT Office Visit [facility] [address] [place] [address] Naheed Zaman ANP 230 [place] [address] documented as of this encounter Goals Goal [...] has chronic kidney disease No Arlette Hill, RN Patient has chronic kidney disease Care Plan Patient has chronic kidney disease Arlette Atkins RN documented as of this encounter Visit [...] documented as of this encounter Care Teams Mobile Homes Repairer Relationship Specialty Start Date End Date Naheed Zaman ANP [address] [place] [address] PCP - General Family Medicine 01/18/22 Real Gomez MD [address] [place] [address] 3rd [place] [address] Cardiology 10/01/24 Kalpesh Calles Patient Service AssociateSoda Drier Feeder 02/21/25 documented as of this encounter
--- OUTSIDE RECORDS SUMMARY | 2025-05-14 17:54 | XMS_ITS | Encounter Summary ---
Author Organization [employer] Address [address] [facility] [address] 7t [place] [address] Care Team Providers Care Bench Jeweler Name Role Phone Naheed Zaman Primary Care Provider Real Gomez MD Unavailable Chico Kebede RN Unavailable [phone] Karla Mattson Unavailable Reason for Visit * Reason Comments Med Refill Encounter Details Date Type Department Care Team (Late st Contact Info) Description 01/30/2025 Refill [facility] 230 [place] [address] Rut Branham MD 230 [place], [place] [phone] Uncomplicated opioid dependence (CMS/HCC) Social History Tobacco [...] Description 06/26/2025 3:00 PM EST Office Visit [facility] [address] [place] [address] Rut Branham MD [address] [place] [address] 08/08/2025 11:00 AM EDT Office Visit [facility] [address] [place] [address] Naheed Zaman ANP 230 [place] [address] documented as of this encounter Visit Diagnoses Diagnosis Uncomplicated opioid dependence (CMS/HCC) (HCC) documented in this encounter Additional Health Concerns Assessment Noted Time PHQ-9 Depression Total Score: 7 10/05/19 25 2:06 PM EDT documented as of this encounter Care Teams Bench Jeweler Relationship Specialty Start Date End Date Naheed Zaman ANP 230 [place] [address] PCP - General Family Medicine 01/18/22 Real Gomez MD [address] [place] [address] 3rd [place] [address] Cardiology 10/01/24 Chico Kebede, APRIL [address] [place] [address] Registered Nurse Family Medicine 02/03/25 02/03/25 Karla Mattson 04/03/25 04/04/25 Kalpesh Calles Artist And Repertoire ManagerCnc Router Operator 02/21/25 documented as of this encounter
--- OUTSIDE RECORDS SUMMARY | 2025-05-14 17:54 | XMS_ITS | Encounter Summary ---
Author Organization [employer] Address [address] [facility] [address] 7t [place] [address] Care Team Providers Care Information Assurance Specialist Name Role Phone Naheed Zaman Primary Care Provider [phone] Rael Gomez MD Unavailable Encounter Details Date Type Department Care Team ([facility] Contact Info) Description 05/06/2025 Results Follow-Up [facility] 230 [place] [address] Naheed Zaman ANP 230 [place] [address] Basic Metabolic Panel Social History Tobacco Use Types Packs/Day Years [...] Description 06/26/2025 3:00 PM EST Office Visit [facility] [address] [place] [address] Rut Branham MD [address] [place] [address] 08/08/2025 11:00 AM EDT Office Visit [facility] [address] [place] [address] Naheed Zaman ANP 230 [place] [address] documented as of this encounter Goals Goal [...] Slime Abbott documented as of this encounter Visit Diagnoses [...] as of this encounter Care Teams Information Assurance Specialist Relationship Specialty Start Date End Date Naheed Zaman ANP [address] [place] [address] PCP - General Family Medicine 01/18/22 Real Gomez MD [address] [place] [address] 3[address] [place] [address] Cardiology 10/01/24 Kalpesh Calles Printing SpecialistCement Sprayer Helper 02/21/25 documented as of this encounter
--- OUTSIDE RECORDS SUMMARY | 2025-05-14 17:54 | XMS_ITS | Encounter Summary ---
Author Organization [employer] Address [address] [facility] [address] 7t [place] [address] Care Team Providers Care Electrical Tryout Person Name Role Phone Naheed Zamna Primary Care Provider [phone] Real Gomez MD Unavailable Chico Kebede RN Unavailable Karla Mattson Unavailable Reason for Visit * Reason Onset Date Comments Med Refill 10/30/2024 Encounter Details Date Type Department Care Team (Late st Contact Info) Description 10/30/2024 Refill [facility] 230 [place], [place] [phone] Naheed Zaman ANP 230 [place], [place] [phone] Chronic low back pain without sciatica, unspecified [...] Description 06/26/2025 3:00 PM EST Office Visit [facility] [address] [place] [address] Rut Branham MD 230 [place] [address] 08/08/2025 11:00 AM EDT Office Visit [facility] [address] [place] [address] Naheed Zaman ANP 230 [place] [address] documented as of this encounter Visit Diagnoses Diagnosis Chronic low back pain without sciatica, unspecified back pain laterality documented in this encounter Additional Health Concerns Assessment Noted Time PHQ-9 Depression Total Score: 7 05/09/20 25 2:06 PM EDT documented as of this encounter Care Teams Electrical Tryout Person Relationship Specialty Start Date End Date Naheed Zaman ANP 230 [place] [address] PCP - General Family Medicine 01/18/22 Real Gomze MD [address] [facility] 3rd [place] [address] Cardiology 10/01/24 Chico Kebede, APRIL 505 [place] [address] Registered Nurse Family Medicine 02/03/25 02/03/25 Karla Mattson 04/03/25 04/04/25 Kalpesh Calles Senior Lead Software EngineerAir Valve Mechanic 02/21/25 documented as of this encounter
--- OUTSIDE RECORDS SUMMARY | 2025-05-14 17:54 | XMS_ITS | Encounter Summary ---
Author Organization [employer] Address [address] [facility] [address] 7t [place] [address] Care Team Providers Care Senior Database Programmer Name Role Phone Naheed Zaman Primary Care Provider [phone] Real Gomez MD Unavailable Chico Kebede RN Unavailable [phone] Karla Mattson Unavailable Reason for Visit * Reason Onset Date Comments Med Refill 01/03/2025 Encounter Details Date Type Department Care Team (Late st Contact Info) Description 01/03/2025 Refill [facility] 230 [place], [place] [phone] Naheed Zaman ANP 230 [place] [address] Gastroesophageal reflux disease, unspecified whether esophagitis present; [...] Office Visit [facility] [address] [place] [address] Rut Branham MD [address] [place] [address] 08/08/2025 11:00 AM EDT Office Visit [facility] [address] [place] [address] Naheed Zaman ANP [address] [place] [address] documented as of this encounter Visit Diagnoses Diagnosis Gastroesophageal reflux disease, unspecified whether esophagitis present Essential hypertension Unspecified essential hypertension Chronic low back pain without sciatica, unspecified back pain laterality documented in this encounter Additional Health Concerns Assessment Noted Time PHQ-9 Depression Total Score: 7 10/05/19 25 2:06 PM EDT documented as of this encounter Care Teams Senior Database Programmer Relationship Specialty Start Date End Date Naheed Zaman ANP 230 [place] [address] PCP - General Family Medicine 01/18/22 Real Gomez MD [address] [place] [address] 3rd [place] [address] Cardiology 10/01/24 Chico Kebede RN 505 [place] [address] Registered Nurse Family Medicine 02/03/25 02/03/25 Karla Mattson 04/03/25 04/04/25 Kalpesh Calles Survey WorkerSkull Splitter 02/21/25 documented as of this encounter
--- OUTSIDE RECORDS SUMMARY | 2025-05-14 17:54 | XMS_ITS | Clinical Summary ---
Author Organization [facility] Address [address] [place] [address] Phone Care Team Providers Care Frame Trimmer Name Role Phone Naheed Zaman NP Primary Care Provider [phone] Allergies Active Allergy Reactions Criticality Noted Date Comments Shellfish Containing Products Cough 2016 Difficulty breathing Medications JENNIFER WOOD, PEN 40 mg/0.4 mL pen kit citrate free INJECT 0.4 ML (40 MG) SUBCUTANEOUSLY EVERY WEEK 01/10/20 25 Active ammonium lactate (LAC-HYDRIN) 12 % lotion [...] LEG CRAMPS, STOP FOR LOOSE STOOL 01/30/20 25 Active meloxicam (MOBIC) 15 MG tablet Take [...] daily before breakfast. 90 capsule 02/06/20 25 Active ammonium lactate (AMLACTIN) 12 % cream Apply topically. 04/24/20 24 025 Active Problems Problem Noted Date Diagnosed Date Morbid obesity 02/05/2025 Type 2 diabetes mellitus wit h hyperglycemia, with long-term current use of insulin 02/05/2025 Essential hypertension 02/05/2025 BETSY (obstructive sleep apnea) 02/05/2025 Family History Medical History Relation Comments No [...] Info) Description 06/11/2025 1:30 PM EST Telemedicine [facility] [address], [place] [address] Felicity Puentes CNP [address] [place] [address] 10/30/2025 10:40 AM EDT Office Visit [facility] [address] [place] [address] Sri Andrade MD [address] [address] [email or web address] Health Maintenance Due Date Last [...] topic Medical Devices Not on file Insurance [facility] C3 ACO [facility] C[facility] ACO Care Teams Frame Trimmer Relationship Specialty Start Date End Date Naheed Zaman NP [address] [place] [address] PCP - General Nurse Practitioner 01/02/25 Additional Source Comments The information contained in this document represents components of the legal health record. It is not the complete legal health record.[facility]
--- OUTSIDE RECORDS SUMMARY | 2025-05-14 17:55 | XMS_ITS | Encounter Summary ---
Author Organization [employer] Address [address] [facility] 7t [place] [address] Care Team Providers Care Semi Automatic Sewing Machine Operator Name Role Phone Naheed Zaman Primary Care Provider [phone] Real Gomez MD Unavailable Chico Kebede RN Unavailable [phone] Karla Mattson Unavailable Reason for Visit * Reason Onset Date Comments Med Refill 01/03/2025 Encounter Details Date Type Department Care Team (Late st Contact Info) Description 01/03/2025 Refill [facility] 230 [place], [place] [phone] Rut Branham MD 230 [place] [address] Uncomplicated opioid dependence (CMS/HCC) Social History Tobacco [...] Description 06/26/2025 3:00 PM EST Office Visit [facility] [address] [place] [address] Rut Branham MD 230 [place] [address] 08/08/2025 11:00 AM EDT Office Visit [facility] [address] [place] [phone] Naheed Zaman ANP 230 [place] [address] documented as of this encounter Visit Diagnoses Diagnosis Uncomplicated opioid dependence (CMS/HCC) (HCC) documented in this encounter Additional Health Concerns Assessment Noted Time PHQ-9 Depression Total Score: 7 10/05/19 25 2:06 PM EDT documented as of this encounter Care Teams Semi Automatic Sewing Machine Operator Relationship Specialty Start Date End Date Naheed Zaman ANP 230 [place] [address] PCP - General Family Medicine 01/18/22 Real Gomez MD [address] [facility] 3rd [place] [address] Cardiology 10/01/24 Chico Kebede, APRIL 505 [place] [address] Registered Nurse Family Medicine 02/03/25 02/03/25 Karla Mattson 04/03/25 04/04/25 Kalpesh Calles Fence RiderInjection Mold Technician 02/21/25 documented as of this encounter
--- OUTSIDE RECORDS SUMMARY | 2025-05-14 17:55 | XMS_ITS | Encounter Summary ---
Author Organization [employer] Address [address] [facility] [address] 7t [place] [address] Care Team Providers Care Medication Nurse Name Role Phone Naheed Zaman Primary Care Provider [phone] Real Gomez MD Unavailable Encounter Details Date Type Department Care Team ([facility] Contact Info) Description 04/22/2025 Results Follow-Up [facility] 230 [place] [address] Naheed Zaman ANP 230 [place] [address] Basic Metabolic Panel Social History Tobacco Use [...] as of this encounter Miscellaneous Notes * Result Encounter Note - JOSIAH Marquez - 04/22/2025 9:39 AM EST Repeat this test w/ urine testing on or after May 05. Repita esta prueba con jad prueba de orina el 8 de diciembre o despu??s. Hace muchos a??os, mientras usted estaba en el hospital en 2010, noble a un m??dico especialista en ri??ones llamado Dr. Zapata. Le enviar?? jad nueva referencia para que lo dunia en zapata cl??kyung ambulatoria. documented in this encounter Plan of Treatment Upcoming Encounters Date Type Department Care Team ([facility] Contact Info) Description 06/26/2025 3:00 PM EST Office Visit [facility] 230 [place] [address] O'Adela, MD Rut 230 [place] [address] 08/08/2025 11:00 AM EDT Office Visit [facility] 230 [place] [address] Naheed Zaman ANP 230 [place] [address] documented as of this encounter Goals Goal [...] Plan Weekly blood pressure task No Emerald Deshpande, APRIL Patient has chronic kidney disease Care [...] Care Plan Patient has chronic kidney disease Naheed Galloway ANP documented as of this encounter Procedures Procedure Name Priority Date/Time Associated Diagnosis Comments BASIC METABOLIC PANEL Routine 05/06/2025 8:09 AM EST Diabetic nephropathy with proteinuria (HCC) documented in this encounter Results * (ABNORMAL) Basic Metabolic Panel (05/06/2025 8:09 AM EST) Sodium 143 135 - 145 mmol/L [facility] Potassium 4.2 3.3 - 5.1 mmol/L [facility] Chloride 106 96 - 108 mmol/L [facility] Carbon Dioxide 31(H) 22 - 29 mmol/L [facility] Anion Gap 10(L) 12 - 20 [facility] Urea Nitrogen (BUN) 27(H) 9 - 16 mg/dL [facility] Creatinine, Serum 1.42(H) 0.5 - 1.4 mg/dL [facility] Estimated Glomerular Filt Rate 54 [facility] Comment:Chronic Kidney Disea se: Estimated GFR < 60 mL/min/1.57n3Hqsjcg Kidney Disease: Estimated GFR < 15 mL/min/1.73m2 Glucose 135(H) 60 - 115 mg/dL [facility] Calcium 9.0 8.4 - 10.2 mg/dL [facility] Blood Venous blood specimen / Unknown 05/06/2025 8:09 AM EST 05/06/2025 10:58 AM EST Naheed RAHMAN LAB BLOOD ORDERABLES Final Resul t [facility] [address] [place], [place] [phone] documented in this encounter Visit Diagnoses Diagnosis Diabetic nephropathy with proteinuria (HCC)- Primary documented in this encounter Additional [...] 04/22/2025 Patient has chronic kidney disease 04/22/2025 Assessment Noted Time PHQ-9 Depression Total Score: 7 10/05/19 2:06 PM EDT documented as of this encounter Care Teams Medication Nurse Relationship Specialty Start Date End Date Naheed Zaman ANP [address] [place] [address] PCP - General Family Medicine 01/18/22 Real Gomez MD [address] [place] [address] 3rd [place] [address] Cardiology 10/01/24 Kalpesh Calles Core CutterDenier Control Operator 02/21/25 documented as of this encounter
--- OUTSIDE RECORDS SUMMARY | 2025-05-14 17:55 | XMS_ITS | Encounter Summary ---
Author Organization [employer] Address [address] [facility] [address] [place] [address] Care Team Providers Care [employer] Metals[employer] Name Role Phone Naheed Zaman Primary Care Provider Real Gomez MD Unavailable Karla Mattson Unavailable Reason for Referral * Consultation (Routine) - Authorized Specialty Diagnoses / Procedures Referred By Contac t Referred To Contact Pharmacy Diagnoses HTN (hypertension) Rut Branham MD [address] [place] [phone] Phone: tel: fax: Referral ID Status Reason Start Date Expiration Date Visits Requested Visits Authorized [id number] Authorized Continuity of Care 03/27/2025 03/27/2026 6 6 Encounter Details Date Type Department Care Team (Late st Contact Info) Description 03/27/2025 Orders Only [facility] [address] [place] [id number] Rut Branham MD [address], [place] [id number] HTN (hypertension) (Primary Dx) Social History Tobacco [...] 3:00 PM EST Office Visit [facility] [address] [place] [phone] Rut Branham MD [address] [place] [address] 08/08/2025 11:00 AM EDT Office Visit [facility] [address] [place] [address] Naheed Zaman ANP [address] [place] [address] Scheduled Referrals Name Type Priority Associated Diagnoses Orde r Schedule Referral to Pharmacy MTM Outpatient Referral Routine HTN (hypertension) Ordered: 03/27/2025 documented as of this encounter Visit Diagnoses Diagnosis HTN (hypertension)- Primary Unspecified essential hypertension documented in this encounter Additional Health Concerns Assessment Noted Time PHQ-9 Depression Total Score: 7 10/05/19 25 2:06 PM EDT documented as of this encounter Care Teams [employer] Relationship Specialty Start Date End Date Naheed Zaman ANP [address] [place] [address] PCP - General Family Medicine 01/18/22 Real Gomez MD [address] [place] [address] [address] [place] [address] Cardiology 10/01/24 Karla Mattson 04/03/25 04/04/25 Kalpesh Calles Manager R DClass A Lineman 02/21/25 documented as of this encounter
== END 2025-05-14 15:01 | disposition home or self-care (01) ==
LOC: HO.HSM 13:33
PROVIDERS: PCP Nurse Practitioner Primary Care; Visit Provider Psychiatry & Neurology Neurology
DX: G62.9 Polyneuropathy, unspecified (principal); M79.7 Fibromyalgia; G47.30 Sleep apnea, unspecified; F11.90 Opioid use, unspecified, uncomplicated
CPT/HCPCS: 99205

== ENCOUNTER → 2025-05-14 13:32 | Outpatient (BNVA) | payer MEDICAID, SELFPAY | PROVIDERS: PCP Nurse Practitioner Primary Care; Visit Provider Psychiatry & Neurology Neurology | DX: M79.7 Fibromyalgia (principal); G62.9 Polyneuropathy, unspecified; G47.30 Sleep apnea, unspecified; Z99.89 Dependence on other enabling machines and devices; F11.90 Opioid use, unspecified, uncomplicated | CPT/HCPCS: 99202 ==